=== PATIENT | female | born 1965 | race Caucasian/White ===

== ENCOUNTER 2021-01-15 02:07 | Emergency (ER) | payer OTHER ==
--- OUTSIDE RECORDS SUMMARY | 2021-01-15 02:09 | XMS REPORT | Continuity of Care Document ---
:1965 Author Organization [facility] t Address [address] [place] [address] Dr. Elena [address] [place] [address] Care Team Providers Name Role Phone Garland BYRNE Primary Care Physician Problems This patient has no known problems. Allergies, Adverse Reactions, Alerts Allergy Allergy Status Severity Reaction(s) Onset Inactive Treating Comm ents Source Name Type Date Date Clinician Vancomyc Propensi Active Citlalli olea in ty to 04-04 Methodi adverse 00:00: st reaction 00 s to drug Social History Social Habit Start Date Stop Date Quantity Comments Source Tobacco use and 2019-04-04 2019-04-04 Never used [facility] ethodist exposure 00:00:00 00:00:00 Alcohol intake 2019-04-04 2019-04-04 Ex-drinker [facility] thodist 00:00:00 00:00:00 (finding) Sex [birth year] [facility] ethodist 00:00:00 00:00:00 Smoking Status Start Date Stop Date Source Never smoker [facility] t Medications Ordered Filled Start Stop Current Ordering Indication Dosage Frequency Signature Comments Components Source Medication Medication Date Date Medication? Clinician (SIG) Name Name valsartan Yes 80mg QD Take 80 mg Ho lex (FRANCOIS) 80 6-16 by mouth Meth robert MG tablet 00:00: daily. st 00 Procedures This patient has no known procedures. Plan of Care Planned Activity Planned Date Details Comments Source Future Scheduled 2021-04-12 INFLUENZA VACCINE Citlalli olea Denominational Test 00:00:00 [code = INFLUENZA VACCINE] Future Scheduled 2014 BREAST CANCER [facility] thodist Test 00:00:00 SCREENING [code = BREAST CANCER SCREENING] Future Scheduled 2014 COLONOSCOPY SCREENING [place] [facility] Test 00:00:00 [code = COLONOSCOPY SCREENING] Future Scheduled 2014 SHINGLES VACCINES [place] [facility] Test 00:00:00 (#1) [code = SHINGLES VACCINES (#1)] Future Scheduled 1985 Screening for [facility] thodist Test 00:00:00 malignant neoplasm of cervix (procedure) [code = 760467319] Future Scheduled 1982 Hepatitis C screening [place] [facility] Test 00:00:00 (procedure) [code = 199889037] Future Scheduled 1980 COVID-19 VACCINE (1) [facility] Denominational Test 00:00:00 [code = COVID-19 VACCINE (1)] Results This patient has no known results.
[2021-01-15] MEDS ORDERED: METHYLPREDNISOLONE 125 MG INJ ONE (03:49)
[2021-01-15] MEDS ORDERED: KETOROLAC 30 MG/ML INJ ONE (03:50)
--- NOTE | 2021-01-15 04:41 | ER ---
Nurse's Notes [facility] Name: Christelle Paredes Age: 55 yrs Sex: Female : 1965 Arrival Date: 01/15/2021 Time: 02:10 Bed 3 Private MD: Diagnosis: Strain of muscle, fascia and tendon at neck level Presentation: 01/15 02:46 Chief complaint: Patient states: for past week has had problems with left side of neck iw and left shoulder, had a previous injury to left shoulder from last year, has been in excruciating pain over past week, does heavy lifting daily. Coronavirus screen: At this time, the client does not indicate any symptoms associated with coronavirus-19. Ebola Screen: Patient negative for fever greater than or equal to 101.5 degrees Fahrenheit, and additional compatible Ebola Virus Disease symptoms Patient denies exposure to infectious person. Patient denies travel to an Ebola-affected area in the 21 days before illness onset. No symptoms or risks identified at this time. Initial Sepsis Screen: Does the patient meet any 2 criteria? No. Patient's initial sepsis screen is negative. Does the patient have a suspected source of infection? No. Patient's initial sepsis screen is negative. Risk Assessment: Do you want to hurt yourself or someone else? Patient reports no desire to harm self or others. Onset of symptoms was January 09, 2021. 02:46 Method Of Arrival: Ambulatory iw 02:46 Acuity: FRANKLIN 3 iw Triage Assessment: 04:45 General: Appears uncomfortable, Behavior is calm, cooperative. Musculoskeletal: rv Swelling absent. Historical: - Allergies: 02:49 Vancomycin Analogues; iw - Home Meds: 02:49 Diovan Oral as needed [Active]; iw - PMHx: 02:49 Hypertension; Cirrhosis; Asthma; iw - PSHx: 02:49 None; iw - Immunization history:: Adult Immunizations up to date. - Social history:: Smoking status: . - Family history:: not pertinent. Screenin:18 Abuse screen: Denies threats or abuse. Abuse screen: Denies injuries from another. rr5 Nutritional screening: No deficits noted. Tuberculosis screening: No symptoms or risk factors identified. 04:45 Fall Risk None identified. rv Assessment: 04:44 Pain: Complains of pain in thoracic area. Neuro: Level of Consciousness is awake, rv alert, obeys commands, Oriented to person, place, time, situation. Vital Signs: 02:46 BP 151 / 86; Pulse 80; Resp 16; Temp 97.5; Pulse Ox 100% on R/A; Weight 117.93 kg; iw Height 5 ft. 10 in. (177.80 cm); Pain 8/10; 02:46 Body Mass Index 37.31 (117.93 kg, 177.80 cm) iw ED Course: 02:10 Patient arrived in ED. bp1 02:48 Triage completed. iw 02:49 Arm band placed on. iw 03:04 Jorge L Abraham, RN is Primary Nurse. rv 03:05 Oneal Tran MD is Attending Physician. ma2 03:19 Patient has correct armband on for positive identification. Bed in low position. Call rr5 light in reach. 04:26 C Spine Ap/Lat XRAY In Process Unspecified. EDMS 04:27 Shoulder Left (2 View) XRAY In Process Unspecified. EDMS 04:45 No provider procedures requiring assistance completed. Patient did not have IV access rv during this emergency room visit. Administered Medications: 03:35 Drug: MethylPREDNISolone Acetate 125 mg Route: IM; Site: left gluteus; rr5 04:46 Follow up: Response: No adverse reaction rv 03:36 Drug: TORadol (ketorolac) 60 mg Route: IM; Site: right gluteus; rr5 04:46 Follow up: Response: No adverse reaction rv Outcome: 04:41 Discharge ordered by . ma2 04:45 Discharged to home ambulatory. rv 04:45 Condition: improved 04:45 Discharge instructions given to patient, Instructed on discharge instructions, follow up and referral plans. medication usage, Demonstrated understanding of instructions, follow-up care, medications, Prescriptions given X 3. 05:05 Patient left the ED. rv Signatures: Dispatcher [employer] Emily Aldana RN RN Oneal Tran MD MD ma2 Jorge L Abraham, STEFANO RN rv Yvon Downey RN RN rr5 Nikia Santana bp1
--- NOTE | 2021-01-15 04:41 | EDPHYS ---
Physician Documentation [facility] Name: Christelle Paredes Age: 55 yrs Sex: Female : 1965 Arrival Date: 01/15/2021 Time: 02:10 Bed 3 Private MD: ED Physician Oneal Tran HPI: 01/15 03:36 This 55 yrs old Female presents to ER via Ambulatory with complaints of Back ma2 Pain, Numbness Of Arm. 03:36 The patient presents with pain that is acute. Onset: The symptoms/episode ma2 began/occurred gradually, 3 day(s) ago. Associated signs and symptoms: Pertinent negatives: fever, incontinence, nausea. Severity of symptoms: At their worst the symptoms were moderate, in the emergency department the symptoms are unchanged. The patient has experienced similar episodes in the past. Historical: - Allergies: 02:49 Vancomycin Analogues; iw - Home Meds: 02:49 Diovan Oral as needed [Active]; iw - PMHx: 02:49 Hypertension; Cirrhosis; Asthma; iw - PSHx: 02:49 None; iw - Immunization history:: Adult Immunizations up to date. - Social history:: Smoking status: . - Family history:: not pertinent. ROS: 03:36 Constitutional: Negative for fever, chills, and weight loss. ma2 03:36 All other systems are negative. Exam: 03:36 Constitutional: This is a well developed, well nourished patient who is awake, alert, ma2 and in no acute distress. Head/Face: Normocephalic, atraumatic. Eyes: Pupils equal round and reactive to light, extra-ocular motions intact. Lids and lashes normal. Conjunctiva and sclera are non-icteric and not injected. Cornea within normal limits. Periorbital areas with no swelling, redness, or edema. ENT: Nares patent. No nasal discharge, no septal abnormalities noted. Tympanic membranes are normal and external auditory canals are clear. Oropharynx with no redness, swelling, or masses, exudates, or evidence of obstruction, uvula midline. Mucous membranes moist. Neck: Trachea midline, no thyromegaly or masses palpated, and no cervical lymphadenopathy. Supple, full range of motion without nuchal rigidity, or vertebral point tenderness. No Meningismus. + has right sided neck muschle pain Chest/axilla: Normal chest wall appearance and motion. Nontender with no deformity. No lesions are appreciated. Cardiovascular: Regular rate and rhythm with a normal S1 and S2. No gallops, murmurs, or rubs. Normal PMI, no JVD. No pulse deficits. Respiratory: Lungs have equal breath sounds bilaterally, clear to auscultation and percussion. No rales, rhonchi or wheezes noted. No increased work of breathing, no retractions or nasal flaring. Abdomen/GI: Soft, non-tender, with normal bowel sounds. No distension or tympany. No guarding or rebound. No evidence of tenderness throughout. 03:36 MS/ Extremity: Pulses equal, no cyanosis. Neurovascular intact. Full, normal range ma2 of motion. Neuro: Awake and alert, GCS 15, oriented to person, place, time, and situation. Cranial nerves II-XII grossly intact. Motor strength 5/5 in all extremities. Sensory grossly intact. Cerebellar exam normal. Normal gait. Vital Signs: 02:46 BP 151 / 86; Pulse 80; Resp 16; Temp 97.5; Pulse Ox 100% on R/A; Weight 117.93 kg; iw Height 5 ft. 10 in. (177.80 cm); Pain 8/10; 02:46 Body Mass Index 37.31 (117.93 kg, 177.80 cm) iw MDM: 03:05 Patient medically screened. ma2 04:39 Differential diagnosis: arthritis, Fatigue Fracture Obesity Scoliosis. Data reviewed: ma2 vital signs, nurses notes. Counseling: I had a detailed discussion with the patient and/or guardian regarding: the historical points, exam findings, and any diagnostic results supporting the discharge/admit diagnosis, the presence of at least one elevated blood pressure reading (>120/80) during this emergency department visit, the need for outpatient follow up. Response to treatment: the patient's symptoms have markedly improved after treatment. 01/15 03:28 Order name: C Spine Ap/Lat XRAY ma2 01/15 03:28 Order name: Shoulder Left (2 View) XRAY ma2 Administered Medications: 03:35 Drug: MethylPREDNISolone Acetate 125 mg Route: IM; Site: left gluteus; rr5 04:46 Follow up: Response: No adverse reaction rv 03:36 Drug: TORadol (ketorolac) 60 mg Route: IM; Site: right gluteus; rr5 04:46 Follow up: Response: No adverse reaction rv Disposition: 01/15/21 04:41 Discharged to Home. Impression: Strain of muscle, fascia and tendon at neck level. - Condition is Stable. - Discharge Instructions: Cervical Sprain, [id number], Neck Exercises. - Prescriptions for Cyclobenzaprine 10 mg Oral Tablet - take 1 tablet by ORAL route every 8 hours As needed; 30 tablet. Diclofenac Sodium 75 mg Oral Tablet Sustained Release - take 1 tablet by ORAL route 2 times per day; 30 tablet. Medrol (Damien) 4 mg Oral Tablets, Dose Pack - take 1 tablet by ORAL route as directed - follow package instructions; 1 packet. - Medication Reconciliation Form, Thank You Letter, Antibiotic Education, Prescription Opioid Use form. - Follow up: Private Physician; When: Tomorrow; Reason: Continuance of care. Signatures: Dispatcher [employer] EDEmily Bailey RN RN Oneal Tran MD MD ma2 Jorge L Abraham RN RN Yvon Downey RN RN rr5 Corrections: (The following items were deleted from the chart) 05:05 04:41 01/15/2021 04:41 Discharged to Home. Impression: Strain of muscle, fascia and rv tendon at neck level. Condition is Stable. Prescriptions for Cyclobenzaprine 10 mg Oral Tablet - take 1 tablet by ORAL route every 8 hours As needed; 30 tablet, Diclofenac Sodium 75 mg Oral Tablet Sustained Release - take 1 tablet by ORAL route 2 times per day; 30 tablet, Medrol (Damien) 4 mg Oral Tablets, Dose Pack - take 1 tablet by ORAL route as directed - follow package instructions; 1 packet. and Forms are Medication Reconciliation Form, Thank You Letter, Antibiotic Education, Prescription Opioid Use. Follow up: Private Physician; When: Tomorrow; Reason: Continuance of care. ma2
[2021-01-15 05:13] VITALS: BP 151/86; TEMP 97.5; O2SAT 100
--- NOTE | 2021-01-15 09:08 | RAD REPORT ---
EXAM DESCRIPTION: RAD - C Spine Ap/Lat - 01/15/2021 4:26 am CLINICAL HISTORY: PAIN COMPARISON: No comparisons FINDINGS: Cervical bodies are normal in height and alignment.No fracture or acute bony process seen. Disc thinning with prominent posterior osteophyte noted at C3-4, C4-5 and C5-6. No prevertebral soft tissue thickening or other suspicious soft tissue finding. IMPRESSION: Moderate mid cervical degenerative change.
--- NOTE | 2021-01-15 09:10 | RAD REPORT ---
EXAM DESCRIPTION: RAD - Shoulder Left 2 View - 01/15/2021 4:27 am CLINICAL HISTORY: PAIN COMPARISON: C Spine Ap/Lat dated 01/15/2021 FINDINGS: Mild AC joint arthritic changes are present. No fracture or dislocation present. No aggres sive marrow pattern. Small sclerotic focus in the glenoid is presumably a bone island.
== END 2021-01-15 05:05 | disposition home or self-care (01) ==
LOC: ER 02:07
DX: S16.1XXA Strain of muscle, fascia and tendon at neck level, initial encounter (principal); I10 Essential (primary) hypertension; Z88.3 Allergy status to other anti-infective agents
CPT/HCPCS: 72040; 73030; 96372; 99283; J2930

== ENCOUNTER 2021-09-17 11:33 | Emergency (ER) | payer OTHER ==
--- OUTSIDE RECORDS SUMMARY | 2021-09-17 11:36 | XMS REPORT | Continuity of Care Document ---
:1965 Author Organization [facility] Address [address] [place] [address] Dr. Elena [address] [place] [id number] Care Team Providers Name Role Phone Unavailable Unavailable Unavailable Problems This patient has no known problems. Allergies, Adverse Reactions, Alerts This patient has no known allergies or adverse reactions. Medications This patient has no known medications. Procedures This patient has no known procedures. Results This patient has no known results.
--- NOTE | 2021-09-17 14:19 | RAD REPORT ---
EXAM DESCRIPTION: RAD - Chest Pa And Lat (2 Views) - 09/17/2021 1:56 pm CLINICAL HISTORY: COUGH COMPARISON: September 2015 TECHNIQUE: Frontal and lateral views of the chest were obtained. FINDINGS: The lungs are clear. Interstitial pattern matches comparison. Right pericardial fat pad n oted. Heart size is normal and central vasculature is within normal limits. No pleural effusion or p neumothorax seen. No acute bony finding noted. No aortic abnormality. IMPRESSION: No acute cardiopulmonary process. No significant change from comparison study.
--- NOTE | 2021-09-17 14:26 | EDPHYS ---
Physician Documentation [facility] Name: Christelle Paredes Age: 56 yrs Sex: Female : 1965 Arrival Date: 09/17/2021 Time: 11:35 Bed 9 Private MD: Nuris Haque ED Physician Oneal Tran HPI: 09/17 13:45 This 56 yrs old Female presents to ER via Ambulatory with complaints of Cough, jr8 Shortness Of Breath, Wheezing. 13:45 Onset: The symptoms/episode began/occurred gradually. Severity of symptoms: At their jr8 worst the symptoms were moderate, in the emergency department the symptoms are unchanged. Modifying factors: The symptoms are alleviated by nothing, the symptoms are aggravated by nothing. Associated signs and symptoms: The patient has no apparent associated signs or symptoms. The patient has not experienced similar symptoms in the past. The patient has not recently seen a physician. Patient presented with persistent cough that now is causing shortness of breath and wheezing. Has been tested twice for covid. Both negative. Denies fevers at this time . Historical: - Allergies: 13:08 Vancomycin Analogues; iw - Home Meds: 13:08 Diovan Oral as needed [Active]; iw - PMHx: 13:08 Asthma; Cirrhosis; Hypertension; iw - Immunization history:: Adult Immunizations Client reports receiving the 2nd dose of the Covid vaccine. - Social history:: Smoking status: Patient denies any tobacco usage or history of. ROS: 13:45 Eyes: Negative for injury, pain, redness, and discharge, ENT: Negative for injury, jr8 pain, and discharge, Neck: Negative for injury, pain, and swelling, Cardiovascular: Negative for chest pain, palpitations, and edema, Abdomen/GI: Negative for abdominal pain, nausea, vomiting, diarrhea, and constipation, Back: Negative for injury and pain, MS/Extremity: Negative for injury and deformity, Skin: Negative for injury, rash, and discoloration, Neuro: Negative for headache, weakness, numbness, tingling, and seizure. 13:45 Respiratory: Positive for cough, shortness of breath, wheezing. Exam: 13:45 Constitutional: This is a well developed, well nourished patient who is awake, alert, jr8 and in no acute distress. ENT: Nares patent. No nasal discharge, no septal abnormalities noted. Tympanic membranes are normal and external auditory canals are clear. Oropharynx with no redness, swelling, or masses, exudates, or evidence of obstruction, uvula midline. Mucous membranes moist. Neck: Trachea midline, no thyromegaly or masses palpated, and no cervical lymphadenopathy. Supple, full range of motion without nuchal rigidity, or vertebral point tenderness. No Meningismus. Cardiovascular: Regular rate and rhythm with a normal S1 and S2. No gallops, murmurs, or rubs. Normal PMI, no JVD. No pulse deficits. Respiratory: Lungs have equal breath sounds bilaterally, clear to auscultation and percussion. No rales, rhonchi or wheezes noted. No increased work of breathing, no retractions or nasal flaring. Abdomen/GI: Soft, non-tender, with normal bowel sounds. No distension or tympany. No guarding or rebound. No evidence of tenderness throughout. Skin: Warm, dry with normal turgor. Normal color with no rashes, no lesions, and no evidence of cellulitis. MS/ Extremity: Pulses equal, no cyanosis. Neurovascular intact. Full, normal range of motion. Neuro: Awake and alert, GCS 15, oriented to person, place, time, and situation. Cranial nerves II-XII grossly intact. Motor strength 5/5 in all extremities. Sensory grossly intact. Vital Signs: 13:06 BP 142 / 71; Pulse 89; Resp 18; Temp 98.3; Pulse Ox 100% on R/A; Weight 115.67 kg; iw Height 5 ft. 9 in. (175.26 cm); 13:06 Body Mass Index 37.66 (115.67 kg, 175.26 cm) iw MDM: 13:00 Patient medically screened. jr8 14:24 Data reviewed: vital signs, nurses notes, radiologic studies, plain films. Data jr8 interpreted: Pulse oximetry: on room air is 100 %. Interpretation: normal. Counseling: I had a detailed discussion with the patient and/or guardian regarding: the historical points, exam findings, and any diagnostic results supporting the discharge/admit diagnosis, radiology results, the need for outpatient follow up, a family practitioner, to return to the emergency department if symptoms worsen or persist or if there are any questions or concerns that arise at home. 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 I agree with assessment and care plan and confirm the diagnosis (es) above. Disposition Summary: 09/17/21 14:25 Discharge Ordered Location: Home jr8 Problem: new jr8 Symptoms: have improved jr8 Condition: Stable jr8 Diagnosis - Acute bronchitis, unspecified jr8 Followup: jr8 - With: Nuris Haque - When: 1 week - Reason: Recheck today's complaints, Continuance of care, Re-evaluation by your physician Discharge Instructions: - Discharge Summary Sheet jr8 - Acute Bronchitis, Adult jr8 - Chronic Bronchitis, Adult jr8 Forms: - Medication Reconciliation Form jr8 - Thank You Letter jr8 - Antibiotic Education jr8 - Prescription Opioid Use jr8 Prescriptions: - Zithromax Z-Damien 250 mg Oral Tablet - take 1 tablet by ORAL route as directed for 5 days Day 1 - take two (2) tablets jr8 one time. Day 2, 3, 4 , 5 take one (1) tablet once daily.; 6 tablet; Refills: 0, Product Selection Permitted - Medrol (Damien) 4 mg Oral Tablets, Dose Pack - take 1 tablet by ORAL route as directed - follow package instructions; 1 jr8 packet; Refills: 0, Product Selection Permitted Signatures: Dispatcher [employer] Emily Aldana RN RN iw Roszak, Josh, PA PA jr8 Oneal Tran MD MD ma2
--- NOTE | 2021-09-17 14:26 | ER ---
Nurse's Notes [facility] Name: Christelle Paredes Age: 56 yrs Sex: Female : 1965 Arrival Date: 09/17/2021 Time: 11:35 Bed 9 Private MD: Nuris Haque Diagnosis: Acute bronchitis, unspecified Presentation: 09/17 13:06 Chief complaint: Patient states: cough, wheezing, low grade fevers since , iw took 2 OTC COVID tests and they were negative. Coronavirus screen: Client presents with at least one sign or symptom that may indicate coronavirus-19. Ebola Screen: Patient negative for fever greater than or equal to 101.5 degrees Fahrenheit, and additional compatible Ebola Virus Disease symptoms Patient denies exposure to infectious person. Patient denies travel to an Ebola-affected area in the 21 days before illness onset. No symptoms or risks identified at this time. Initial Sepsis Screen: Does the patient meet any 2 criteria? No. Patient's initial sepsis screen is negative. Does the patient have a suspected source of infection? No. Patient's initial sepsis screen is negative. Risk Assessment: Do you want to hurt yourself or someone else? Patient reports no desire to harm self or others. Onset of symptoms was September 06, 2021. 13:06 Method Of Arrival: Ambulatory iw 13:06 Acuity: FRANKLIN 4 iw Historical: - Allergies: 13:08 Vancomycin Analogues; iw - Home Meds: 13:08 Diovan Oral as needed [Active]; iw - PMHx: 13:08 Asthma; Cirrhosis; Hypertension; iw - Immunization history:: Adult Immunizations Client reports receiving the 2nd dose of the Covid vaccine. - Social history:: Smoking status: Patient denies any tobacco usage or history of. Screenin:08 Abuse screen: Denies threats or abuse. Denies injuries from another. Nutritional iw screening: No deficits noted. Tuberculosis screening: No symptoms or risk factors identified. Fall Risk None identified. Assessment: 13:08 General: Appears in no apparent distress. Behavior is calm, cooperative. Pain: Denies iw pain. Neuro: Level of Consciousness is awake, alert, obeys commands, Oriented to person, place, time, situation. Cardiovascular: Rhythm is regular. Respiratory: Airway is patent Respiratory effort is even, unlabored, Derm: Skin is intact, is healthy with good turgor. Musculoskeletal: Range of motion: intact in all extremities. 14:24 Reassessment: Patient appears in no apparent distress at this time. Patient and/or iw family updated on plan of care and expected duration. Pain level reassessed. Patient is alert, oriented x 3, equal unlabored respirations, skin warm/dry/pink. Vital Signs: 13:06 BP 142 / 71; Pulse 89; Resp 18; Temp 98.3; Pulse Ox 100% on R/A; Weight 115.67 kg; iw Height 5 ft. 9 in. (175.26 cm); 13:06 Body Mass Index 37.66 (115.67 kg, 175.26 cm) iw ED Course: 11:35 Patient arrived in ED. mr 11:36 Nuris Haque is Private Physician. mr 13:00 Abhijit Arredondo PA is PHCP. jr8 13:00 Oneal Tran MD is Attending Physician. jr8 13:06 Marisabel Herndon RN is Primary Nurse. [place] 13:07 Triage completed. iw 13:08 Primary Nurse role handed off by Marisabel Herndon RN iw 13:08 Emily Conway, STEFANO is Primary Nurse. iw 13:08 Arm band placed on. iw 13:21 No provider procedures requiring assistance completed. Patient did not have IV access iw during this emergency room visit. 13:56 Chest Pa And Lat (2 Views) XRAY In Process Unspecified. EDMS 14:25 Nuris Haque is Referral Physician. jr8 Administered Medications: No medications were administered Outcome: 14:25 Discharge ordered by . jr8 14:52 Patient left the ED. iw Signatures: Dispatcher [employer] EDIN Shelia Terrazas mr Emily Conway RN RN Abhijit Arredondo PA PA jr8 Marisabel Herndon RN RN [place]ley
[2021-09-17 14:57] VITALS: BP 142/71; TEMP 98.3; O2SAT 100
== END 2021-09-17 14:52 | disposition home or self-care (01) ==
LOC: ER 11:33
DX: J20.9 Acute bronchitis, unspecified (principal); I10 Essential (primary) hypertension; Z88.3 Allergy status to other anti-infective agents
CPT/HCPCS: 71046; 99282

== ENCOUNTER 2022-11-24 19:47 | Emergency (ER) | payer BC, OTHER ==
--- OUTSIDE RECORDS SUMMARY | 2022-11-24 19:51 | XMS REPORT | Continuity of Care Document ---
:1965 Author Organization [facility] t Address [address] [place] [address] Care Team Providers Name Role Phone Nuris Alegre Primary Care Physician Problems This patient has no known problems. Allergies, Adverse Reactions, Alerts Allergy Allergy Status Severity Reaction(s) Onset Inactive Treating Comm ents Source Name Type Date Date Clinician Vancomyc Propensi Active Method i in ty to 04-04 st adverse 00:00: Hospita reaction 00 l s to drug Social History Social Habit Start Date Stop Date Quantity Comments Source Tobacco use and 2019-04-04 2019-04-04 Smokeless tobacco [facility] exposure 00:00:00 00:00:00 non-user Hospital Alcohol intake 2019-04-04 2019-04-04 Ex-drinker [facility] 00:00:00 00:00:00 (finding) Hospital Sex Assigned At [birth year] [facility] 00:00:00 00:00:00 Hospital Smoking Status Start Date Stop Date Source Never smoked tobacco [facility] Medications Ordered Filled Start Stop Current Ordering Indication Dosage Frequency Signature Comments Components Source Medication Medication Date Date Medication? Clinician (SIG) Name Name valsartan Yes 80mg QD Take 80 mg [facility] (DIOVAN) 80 6-[address] MG tablet 00:00: daily. Hospit a 00 l Procedures This patient has no known procedures. Plan of Care Planned Activity Planned Date Details Comments Source Future Scheduled 2022-09-05 BREAST CANCER [facility] Test 11:52:03 SCREENING [code = BREAST CANCER SCREENING] Future Scheduled 2022-09-05 COLONOSCOPY SCREENING [facility] Test 11:52:03 [code = COLONOSCOPY SCREENING] Future Scheduled 2022-09-05 SHINGLES VACCINES (1 Met [facility] Test 11:52:03 of 2) [code = SHINGLES VACCINES (1 of 2)] Future Scheduled 2022-09-05 INFLUENZA VACCINE Method [facility] Test 11:52:03 [code = INFLUENZA VACCINE] Future Scheduled 2022-09-05 COVID-19 VACCINE (#1) [facility] Test 11:52:03 [code = COVID-19 VACCINE (#1)] Future Scheduled 2022-09-05 Screening for [facility] Test 11:52:03 malignant neoplasm of cervix (procedure) [code = [id number]] Results This patient has no known results.
[2022-11-24 21:32] LABS: Urine Blood 3+ (Negative); Urine Glucose Trace (Negative); Urine Protein 3+ (Negative); Urine pH 5.5 (5.0-7.0)
[2022-11-24 22:04] LABS: Absolute Lymphocytes (CBC) 0.5 K/uL (0.7-4.9); Hematocrit 39.3 % (36.0-45.0); MCV 101.7 fL (80-100); MPV 9.2 fL (7.6-11.3); RBC Red Blood Cell Count 3.86 M/uL (3.86-4.86)
[2022-11-24 22:23] LABS: Albumin 2.6 g/dL (3.4-5.0); Bilirubin Total 3.2 mg/dL (0.2-1.0); Potassium 3.7 mmol/L (3.5-5.1); Protein, Total 7.6 g/dL (6.4-8.2)
[2022-11-24 22:24] LABS: Transitional Epithelial <5 /HPF (None Seen); Urine Bacteria <20 /HPF (<20); Urine Mucus 2+ /HPF (None Seen); Urine RBC >50 /HPF (None Seen)
[2022-11-24] MEDS ORDERED: KETOROLAC 30 MG/ML INJ ONE (22:49)
[2022-11-24] MEDS ORDERED: NA CHLORIDE 0.9% 1,000 ML ONE (22:50)
[2022-11-24 23:07] LABS: Protime INR 1.8
[2022-11-25] MEDS ORDERED: NA CHLORIDE 0.9% 50 ML ONE (01:25)
[2022-11-25] MEDS ORDERED: CEFTRIAXONE 2000 MG/VIAL ONE (01:25)
[2022-11-25] MEDS ORDERED: METRONIDAZOLE 500mg IVPB 500 MG/100 ML BAG IV ONE (01:25)
--- NOTE | 2022-11-25 01:38 | ER ---
Nurse's Notes [facility] Name: Christelle Paredes Age: 57 yrs Sex: Female : 1965 Arrival Date: 11/24/2022 Time: 19:52 Bed 13 Private MD: Diagnosis: Cholecystitis, unspecified;Abnormal results of liver function studies;Indeterminate colitis Presentation: 11/24 20:27 Chief complaint: Patient states: "Since Tuesday I started having tremors, upper back mb9 pain, and can't eat or drink anything. I'm also peeing blood but my urine has always had a weird smell and is always like that". Coronavirus screen: Vaccine status: Patient reports receiving the 2nd dose of the covid vaccine. Ebola Screen: No symptoms or risks identified at this time. Initial Sepsis Screen: Does the patient meet any 2 criteria? No. Patient's initial sepsis screen is negative. Does the patient have a suspected source of infection? No. Patient's initial sepsis screen is negative. Risk Assessment: Do you want to hurt yourself or someone else? Patient reports no desire to harm self or others. Onset of symptoms. 20:27 Method Of Arrival: Wheelchair mb9 20:27 Acuity: FRANKLIN 4 mb9 Triage Assessment: 22:02 General: Appears in no apparent distress. uncomfortable, Behavior is cooperative. Pain: vc1 Complains of pain in back Pain does not radiate. EENT: No deficits noted. Neuro: No deficits noted. Musculoskeletal: Circulation, motion, and sensation intact. Range of motion: intact in all extremities. Historical: - Allergies: 20:29 Vancomycin Analogues; mb9 - PMHx: 20:29 Asthma; Cirrhosis; Hypertension; mb9 - PSHx: 20:29 None; mb9 - Immunization history:: Adult Immunizations up to date. - Social history:: Smoking status: Patient denies any tobacco usage or history of. Screenin:01 [facility] ED Fall Risk Assessment (Adult) History of falling in the last 3 months, vc1 including since admission No falls in past 3 months (0 pts) Confusion or Disorientation No (0 pts) Intoxicated or Sedated No (0 pts) Impaired Gait No (0 pts) Mobility Assist Device Used No (0 pt) Altered Elimination No (0 pt) Score/Fall Risk Level 0 - 2 = Low Risk Oriented to surroundings, Maintained a safe environment, Educated pt \\T\\ family on fall prevention, incl call for assistance when getting out of bed. Abuse screen: Denies threats or abuse. Nutritional screening: No deficits noted. Tuberculosis screening: No symptoms or risk factors identified. Assessment: 22:04 Reassessment: No changes from previously documented assessment. Patient and/or family vc1 updated on plan of care and expected duration. Pain level reassessed. Neuro: Level of Consciousness is awake, Oriented to person, place, time, situation, Appropriate for age. 23:07 Reassessment: Patient and/or family updated on plan of care and expected duration. Pain vc1 level reassessed. Patient is alert, oriented x 3, equal unlabored respirations, skin warm/dry/pink. 11/25 01:26 Reassessment: No changes from previously documented assessment. Patient and/or family vc1 updated on plan of care and expected duration. Pain level reassessed. Patient is alert, oriented x 3, equal unlabored respirations, skin warm/dry/pink. Vital Signs: 11/24 20:27 BP 146 / 68; Pulse 96; Resp 18; Temp 97.9; Pulse Ox 98% ; Weight 95.25 kg; Height 5 ft. mb9 10 in. ; Pain 10/10; 21:45 BP 147 / 41; Pulse 90; Resp 18; Pulse Ox 95% on R/A; vc1 23:06 BP 145 / 68; Pulse 94; Resp 18; Pulse Ox 97% on R/A; vc1 11/25 00:00 BP 132 / 51; Pulse 88; Temp 98.4(O); Pulse Ox 97% on R/A; vc1 01:00 BP 128 / 55; Pulse 85; Pulse Ox 97% on R/A; vc1 11/24 20:27 Body Mass Index 30.13 (95.25 kg, 177.8 cm) mb9 11/24 20:27 Pain Scale: Adult mb9 ED Course: 11/24 19:52 Patient arrived in ED. ja2 20:29 Triage completed. mb9 20:31 Arm band placed on. mb9 20:33 Davonte Bond PA is PHCP. cp 20:33 Benedicto Ortega MD is Attending Physician. cp 21:33 Brenda Richards, RN is Primary Nurse. vc1 21:38 Inserted saline lock: 22 gauge in left antecubital area, using aseptic technique. Blood ah1 collected. 21:38 PT-INR Sent. ah1 21:38 CBC with Diff Sent. ah1 21:38 CMP Sent. ah1 21:38 Lipase Sent. ah1 21:38 Urine Microscopic Only Sent. ah1 22:02 Patient has correct armband on for positive identification. Bed in low position. Pulse vc1 ox on. NIBP on. 23:08 CT Abd/Pelvis - IV Contrast Only In Process Unspecified. EDMS 11/25 00:40 US Abdomen Limited: gallbladder In Process Unspecified. EDMS Administered Medications: 11/24 23:06 Drug: Ketorolac IVP 15 mg Route: IVP; Site: left antecubital; vc1 23:06 Drug: NS 0.9% IV 500 ml Route: IV; Rate: bolus; Site: left forearm; vc1 23:44 Drug: NS 0.9% IV 500 ml Route: IV; Rate: 125 ml/hr; Site: left forearm; vc1 11/25 01:33 Drug: Rocephin IV 2 grams Route: IV; Rate: calculated rate; Site: left antecubital; bb 01:33 Drug: metroNIDAZOLE IVPB 500 mg Volume: 100 ml; Route: IVPB; Infused Over: 30 mins; bb Site: left antecubital; Medication: 11/24 20:32 VIS not applicable for this client. mb9 Outcome: 11/25 01:37 ER care complete, transfer ordered by . cp Signatures: Dispatcher [employer] EDMS Samina Louie RN RN bb Davonte Bond PA PA cp Alexander, Jessica ja2 Calcote, Vanessa RN RN vc1 Shelia Pierre RN RN mb9 Jed Doug[facility]
--- NOTE | 2022-11-25 01:38 | EDPHYS ---
Physician Documentation [facility] Name: Christelle Paredes Age: 57 yrs Sex: Female : 1965 Arrival Date: 11/24/2022 Time: 19:52 Bed 13 Private MD: ED Physician Benedicto Ortega HPI: 11/24 20:50 This 57 yrs old Female presents to ER via Wheelchair with complaints of Fever, Back cp Pain, Urinary Problem. Historical: - Allergies: 20:29 Vancomycin Analogues; mb9 - PMHx: 20:29 Asthma; Cirrhosis; Hypertension; mb9 - PSHx: 20:29 None; mb9 - Immunization history:: Adult Immunizations up to date. - Social history:: Smoking status: Patient denies any tobacco usage or history of. ROS: 20:55 Constitutional: Positive for chills, Negative for fever. cp Vital Signs: 20:27 BP 146 / 68; Pulse 96; Resp 18; Temp 97.9; Pulse Ox 98% ; Weight 95.25 kg; Height 5 ft. mb9 10 in. ; Pain 10/10; 21:45 BP 147 / 41; Pulse 90; Resp 18; Pulse Ox 95% on R/A; vc1 23:06 BP 145 / 68; Pulse 94; Resp 18; Pulse Ox 97% on R/A; vc1 11/25 00:00 BP 132 / 51; Pulse 88; Temp 98.4(O); Pulse Ox 97% on R/A; vc1 01:00 BP 128 / 55; Pulse 85; Pulse Ox 97% on R/A; vc1 11/24 20:27 Body Mass Index 30.13 (95.25 kg, 177.8 cm) mb9 11/24 20:27 Pain Scale: Adult mb9 MDM: 11/24 20:36 Patient medically screened. cp 11/24 20:40 Order name: Lipase; Complete Time: 22:36 cp 11/24 20:40 Order name: IV Saline Lock; Complete Time: 21:35 cp 11/24 20:40 Order name: Labs collected and sent; Complete Time: 21:35 cp 11/24 20:40 Order name: Urine Dipstick-Ancillary (obtain specimen); Complete Time: 21:34 cp 11/24 21:38 Order name: NPO; Complete Time: 21:41 cp 11/24 21:38 Order name: CT Abd/Pelvis - IV Contrast Only cp 11/24 22:10 Order name: Urine --Ancillary (enter results); Complete Time: 22:36 rv1 11/24 22:30 Order name: Urine Culture EDMS 11/24 20:40 Order name: PT-INR; Complete Time: 23:43 cp 11/24 20:40 Order name: CBC with Diff; Complete Time: 22:36 cp 11/24 23:44 Interpretation: Normal except: MCV 101.7; PLT 51; RDW 15.4; DANAE% 87.0; LYM% 6.0; LYMA cp 0.5. 11/24 20:40 Order name: CMP; Complete Time: 22:36 cp 11/24 23:58 Interpretation: Normal except: NA 134; GFR 65; AST 66; BILIT 3.2; CA 8.1; ALB 2.6; GLOB cp 5.0; A/G 0.5. 11/24 20:40 Order name: Urine Microscopic Only; Complete Time: 22:36 cp 11/24 23:59 Interpretation: Normal except: UWBC 20-50; URBC >50; BYST Many. cp 11/24 21:32 Order name: Urine Dipstick-Ancillary; Complete Time: 21:33 EDMS 11/24 23:59 Interpretation: Normal except: UKET Trace; UBLD 3+; UPROT 3+; UNIT Positive. cp 11/25 00:17 Order name: EKG; Complete Time: 00:18 cp 11/25 00:17 Order name: Blood Culture Adult (2) cp 11/25 00:17 Order name: Lactate w/ 2H reflex if indic. cp 11/25 00:17 Order name: Procalcitonin cp 11/25 00:17 Order name: US Abdomen Limited: gallbladder cp 11/25 00:17 Order name: Accucheck; Complete Time: 01:19 cp 11/25 00:17 Order name: Cardiac monitoring; Complete Time: 01:19 cp 11/25 00:17 Order name: EKG - Nurse/Tech; Complete Time: 01:19 cp 11/25 00:17 Order name: IV Saline Lock - Large Bore; Complete Time: 01:19 cp 11/25 00:17 Order name: O2 Per Protocol; Complete Time: 01:19 cp 11/25 00:17 Order name: O2 Sat Monitoring; Complete Time: 01:19 cp 11/25 00:17 Order name: Vital Signs; Complete Time: 01: cp 11/25 00:17 Order name: Ptt, Activated cp 11/25 01:29 Order name: SARS RAPID rv1 Administered Medications: 23:06 Drug: Ketorolac IVP 15 mg Route: IVP; Site: left antecubital; vc1 23:06 Drug: NS 0.9% IV 500 ml Route: IV; Rate: bolus; Site: left forearm; vc1 23:44 Drug: NS 0.9% IV 500 ml Route: IV; Rate: 125 ml/hr; Site: left forearm; vc1 11/25 01:33 Drug: Rocephin IV 2 grams Route: IV; Rate: calculated rate; Site: left antecubital; bb 01:33 Drug: metroNIDAZOLE IVPB 500 mg Volume: 100 ml; Route: IVPB; Infused Over: 30 mins; bb Site: left antecubital; Disposition Summary: 11/25/22 01:37 Transfer Ordered Accepting Physician: Doctor cp Transfer Location: [facility] cp Reason: Higher level of care cp Condition: Stable cp Problem: new cp Symptoms: have improved cp Diagnosis - Cholecystitis, unspecified cp - Abnormal results of liver function studies cp - Indeterminate colitis cp Discharge Instructions: - Discharge Summary Sheet vc1 Forms: - SBAR form vc1 - Medication Reconciliation Form cp Signatures: Dispatcher [employer] Samina Ovalle RN RN bb Page, Corey, PA PA cp Calcote, Vanessa, RN RN vc1 Shelia Pierre RN RN mb9
[2022-11-25 02:19] LABS: SARS-CoV-2 Antigen Rapid Res Negative (Negative)
--- NOTE | 2022-11-25 12:00 | RAD REPORT ---
EXAM DESCRIPTION: US - Abdomen Exam Limited - 11/25/2022 12:38 am CLINICAL HISTORY: Lower abd pain. COMPARISON: None. TECHNIQUE: Serial axial CT images were obtained from above the diaphragm through the pubic symphysis without administration of intravenous or oral contrast. All CT scans are performed using dose optimization techniques as appropriate, including automated exp osure control and/or standardized protocols, where dose is adjusted for indication for exam and body habitus. FINDINGS: Thoracic: No significant abnormality. Hepatobiliary: No obvious concerning hepatic lesion identified in the absence of intravenous contrast . The gallbladder is unremarkable. No biliary ductal dilatation. Pancreas: Unremarkable. Spleen: Unremarkable. Gastrointestinal: Nonspecific mild fluid-filled small bowel loops with no evidence specific for obstr uction. No perienteric inflammation. The appendix is nonvisualized, but there are no pericecal inflam matory changes identified. Small to moderate amount of fecal material throughout the colon. Adrenals: No abnormality identified in either adrenal gland. Renal: No obvious parenchymal abnormality in either kidney in the absence of intravenous contrast. No hydronephrosis or urolithiasis. Bladder/Reproductive: Unremarkable appearance of the urinary bladder by CT technique. Vascular/Lymphatics: No lymphadenopathy identified by CT size criteria. Abdominal aorta is normal in caliber. Musculoskeletal: No concerning osseous lesion identified. Fluid / peritoneum: No significant free fluid. No free intraperitoneal air identified. IMPRESSION: 1. Nonspecific mild fluid-filled small bowel loops. Differential includes ileus/enteri tis, versus early small bowel obstruction in the appropriate clinical setting. 2. No additional potential acute abnormality identified. Electronically signed by: Shanthi Melvin MD 11/25/2022 12:24 AM CDT Due to temporary technical issues with the PACS/Fluency reporting system, reports are being signed by the in house radiologists without review as a courtesy to insure prompt reporting. The interpreting radiologist is fully responsible for the content of the report.
--- NOTE | 2022-11-25 12:14 | RAD REPORT ---
EXAM DESCRIPTION: CT - Abdomen Pelvis W Contrast - 11/25/2022 6:25 am CLINICAL HISTORY: Back pain. Hematuria. TECHNIQUE: CT scan of the abdomen and pelvis was performed with intravenous contrast. 5 mm axial mones ges were obtained along with coronal and sagittal reformatted images. COMPARISON: None. DOSE OPTIMIZATION: This facility uses dose optimization techniques as appropriate to perform exams, including at least one of the following techniques: 1. Automated exposure control. 2. Adjustment of the mA and/or kV according to patient size (this includes techniques or standardized protocols for targeted exams where dose is matched to the indication/reason for exam, i.e. extremiti es or head). 3. Use of iterative reconstructive technique. FINDINGS: Lung Bases: There are no active infiltrates. There is a moderate-sized left pleural effusion. Liver: There is mild microlobulation of the hepatic capsule consistent with hepatic cirrhosis. There is evidence of portal venous hypertension with recanalization of the umbilical vein, moderately severe paraesophageal varices, and moderately severe splenic venous varices with splenomegaly. Spleen: There is severe splenomegaly. The spleen measures 18 x 11 x 17 cm in maximal dimensions. Pancreas: Normal. Gallbladder: There is evidence of cholelithiasis. The gallbladder is mildly distended and demonstrate s mural thickening. The mural thickening could be secondary to cholecystitis or could be secondary to peritoneal ascites. Adrenal Glands: Normal. Kidneys: Normal. Retroperitoneal Structures: There are shoddy retroperitoneal lymph nodes. Bowel Survey: There is a small hiatal hernia. The stomach is otherwise unremarkable. There are multiple mildly distended small bowel loops with air-fluid levels. The appendix is unremarkable. There is severe mural thickening of the ascending and transverse colon suspicious for colitis. Uterus and Adnexa: Normal. Urinary Bladder: Normal. Peritoneal Cavity: There is a small amount of peritoneal ascites. Mesenteric Structures: Normal. Abdominal Wall: No hernia. Bony Structures: No suspicious lesions. There is moderately severe spondylosis throughout the lower t horacic and lumbar spine. There is severe degenerative disc disease at L3-L4. There is severe facet arthropathy on the right at L4-L5. There is mild posterior disc herniation with osteophyte complex at L5-S1 along with severe bilateral facet arthropathy. IMPRESSION: 1. Findings suspicious for colitis involving the ascending and transverse colon. 2. Hepatic cirrhosis with evidence of portal venous hypertension including splenomegaly, paraesophage al varices, splenic venous varices, recanalization of the hepatic vein, and peritoneal ascites. 3. Mild distention of the gallbladder with numerous small calcified stones and wall thickening. The w all thickening may be due to cholecystitis or secondary to the peritoneal ascites. Clinical correlati on recommended. 4. There are shotty retroperitoneal lymph nodes. 5. Moderate-sized left pleural effusion. Electronically signed by: Chance Lugo MD 11/24/2022 11:33 PM CDT Due to temporary technical issues with the PACS/Fluency reporting system, reports are being signed by the in house radiologists without review as a courtesy to insure prompt reporting. The interpreting radiologist is fully responsible for the content of the report.
[2022-11-25 12:33] VITALS: BP 123/57; TEMP 99; O2SAT 94
--- NOTE | 2022-11-25 12:35 | EKG ---
Test Date: 2022-11-25 Test Time: 01:02:23 Barrel Lathe Operator Outside: NOE MEASUREMENT RESULTS: Intervals: Rate: 84 FL: 164 QRSD: 78 QT: 390 QTc: 460 Britt: P: -23 FL: 164 QRS: 34 T: 15 INTERPRETIVE STATEMENTS: Normal sinus rhythm Normal ECG Compared to ECG 09/30/2015 17:50:46 No significant changes Electronically Signed On 11-25-22 12:34:52 CDT by Otto Grullon
--- NOTE | 2022-11-26 11:45 | EKG ---
Test Date: 2022-11-25 Test Time: 01:05:43 Bleach Analyst: NOE MEASUREMENT RESULTS: Intervals: Rate: 84 MO: 150 QRSD: 84 QT: 392 QTc: 463 [place]: P: 0 MO: 150 QRS: 39 T: 16 INTERPRETIVE STATEMENTS: Normal sinus rhythm Normal ECG Compared to ECG 11/25/2022 01:02:23 No significant changes Electronically Signed On 11-26-22 11:44:33 CDT by Otto Grullon
== END 2022-11-25 03:34 | disposition short-term general hospital (02) ==
LOC: ER 19:47
DX: K81.9 Cholecystitis, unspecified (principal); K52.3 Indeterminate colitis; R94.5 Abnormal results of liver function studies; I10 Essential (primary) hypertension; Z20.822 Contact with and (suspected) exposure to COVID-19; Z88.3 Allergy status to other anti-infective agents
CPT/HCPCS: 93005 ×2; 87040 ×2; 87088; 85025; 87086; 36415; 81025; 85610; 83605; 85730; 87077; 87186; 83690; 80053; 84145; 74177; 76705; 96375; 96374; 99285; 87811; Q9967; J0696; J7040; 81003; 81015

== ENCOUNTER 2023-02-15 13:52 | Emergency (ER) | payer BC ==
--- OUTSIDE RECORDS SUMMARY | 2023-02-15 14:36 | XMS REPORT | Continuity of Care Document ---
:1965 Author Organization [facility] t Address [address] [place] [address] [place] [id number] Care Team Providers Name Role Phone Nuris Alegre Primary Care Physician MARYANN TURNER Attending Clinician Unavailable CALLIE MISHRA Attending Clinician Unavailable JOSELUIS STONER Attending Clinician Unavailable JOSELUIS STONER Attending Clinician Unavailable SAURABH NICOLE Attending Clinician Unavailable ARCENIO LAZO Attending Clinician Unavailable SAMANTHA ALFREDO Attending Clinician Unavailable NENA MANE Attending Clinician Unavailable HEATHER MARIANO Attending Clinician Unavailable Tad COVINGTON, Callie MULLINS Attending Clinician Unavailable Saurabh Nicole MD Attending Clinician PAUL SUTTON Attending Clinician Unavailable MARGIE ALLRED Attending Clinician Unavailable Mel VAUGHN, Du Attending Clinician Terri Concepcion Attending Clinician Ruthie Diaz MD Attending Clinician RUTHIE DIAZ Attending Clinician Unavailable Paul Sutton MD Attending Clinician [phone] Patricia VAUGHN MPH, Amie Lehman Attending Clinician [phone] AMIE OGMEZ Attending Clinician Unavailable Enmanuel VAUGHN, Megha Dumas Attending Clinician Castillo VAUGHN, Rylie Diaz Attending Clinician Graham VAUGHN, Dipak Long Attending Clinician Ana Luisa VAUGHN, Heather Thurman Attending Clinician [phone] Judi Vigil Attending Clinician Colt VAUGHN, Eun Burgos Attending Clinician Monica Ruiz CRNA Attending Clinician [phone] Jeannette, Arcenio Douglas Attending Clinician ANA LUISA, HEATHER THURMAN Admitting Clinician Unavailable MARISABEL HO Admitting Clinician Unavailable PAUL SUTTON Admitting Clinician Unavailable MANDI, JUDI DOBSON Admitting Clinician Unavailable Payers Payer Name Policy Type Policy Number Effective Date Expiration Date S ource PPO/EPO - BCBS [id number] 2022 00:00:00 CVCP-BCBS [id number] BCBS PPO POS EPO [id number] 2022 00:00:00 CHOICE Problems Condition Condition Condition Status Onset Resolution Last Treating Co mments Source Name Details Category Date Date Treatment Clinician Date Pleural Pleural Disease Active [facility] left on left 00:00: Medical 00 [place] Other Other Disease Active [facility] ascites ascites 4-19 [facility] 00:00: Medical 00 [place] Liver Liver Disease Active [facility] cirrhosis cirrhosis 4-07 Lm ege secondary secondary 00:00: of to BISHOP to BISHOP 00 Medicin e 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 00:00: of without without 00 Medicin bleeding bleeding e Mild Mild Disease Active [facility] intermitte intermitte 4-07 Co llege nt asthma nt asthma 00:00: of without without 00 Medicin complicati complicati e on on Portal Portal Disease Active [facility] hypertensi hypertensi 4-07 Co llege on on 00:00: of Medicin e Thrombocyt Thrombocyt Disease Active [facility] openia 07 [facility] 00:00: Medicin e Symptomati Symptomati Disease Active [facility] c [facility]17 [facility] cholelithi cholelithi 00:00: Me dical asis asis 00 [facility] [place] Disease Active [facility] lithiasis lithiasis 3-16 [facility] 00:00: Medical 00 Center Allergies, Adverse Reactions, Alerts Allergy Allergy Status Severity Reaction(s) Onset Inactive Treating Comm ents Source Name Type Date Date Clinician VANCOMYC Allergy Active Other [facility] IN 3[facility]16 [facility] 00:[facility]: Medical 00 Center Vancomyc Propensi Active Other (See Headache, [facility] in ty to Comments) 3-16 "body [facility] adverse 00:00: clamping" Medica l reaction 00 Center s Vancomyc Propensi Active Method i in ty to 7-24 [facility] adverse 00:00: Hospita reaction 00 l s to drug NO KNOWN Allergy Active [facility] Family History Family Member Diagnosis Comments Start Date Stop Date Source Natural father Hypertension [facility] Natural father Kidney cancer [facility] Natural mother Arrhythmia [facility] Natural mother Asthma [facility] Natural mother Cirrhosis [facility] Natural mother Diabetes [facility] Social History Social Habit Start Date Stop Date Quantity Comments Source History SDOH [facility] Alcohol Std Drinks Medica l Center History [facility] Alcohol Binge Medical Malini [facility] Gender identity [facility] Sexual orientation [facility] Hospital Exposure to 2022-12-19 2022-12-[address] [facility] SARS-CoV-2 (event) 00:00:00 15:15:00 Medica l Center History [facility] 2022-12-29 2022-12-[address] [facility] Housing Unable to 00:00:00 00:00:00 Medical Center Pay History [facility] 2022-12-29 2022-12-[address] [facility] Housing Places 00:00:00 00:00:00 Medical Ce nter Lived History [facility] 2022-12-29 2022-12-[address] [facility] Housing Homeless 00:00:00 00:00:00 Medical Center Last Year Tobacco use and 2022-12-17 2022-12-17 Smokeless [facility] Co llege exposure 00:00:00 00:00:00 tobacco non-user of Medic ine History SDOH 2022-11-25 2022-11-25 1 TOMASA Olsen Alcohol Frequency 00:00:00 00:00:00 Medical Center History of Social 2019-05-03 2019-05-[address] function 00:00:00 00:00:00 Hospital Alcohol intake 2019-04-04 2019-04-04 Ex-drinker [facility] 00:[facility] (finding) Hospital Sex Assigned At [birth year] [facility] 00:[facility] Smoking Status Start Date Stop Date Source Never smoked tobacco [facility] L[facility]ge of Medicine Medications Ordered Filled Start Stop Current Ordering Indication Dosage Frequency Signature Comments Components Source Medication Medication Date Date Medication? Clinician (SIG) Name Name ondansetron Yes 4mg Take 1 [facility] (ZOFRAN) 4 5-19 Tablet by Lm ege MG tablet 15:04: mouth. of Medicin e Menthol 10 Yes Take by [facility] MG LOZG 5-19 mouth. [place] 15:04: of 04 Medicin e spironolact 2022-0 Yes 100mg Take 1 [place] [facility] one 5-19 Tablet by [place] (ALDACTONE) 15:04: mouth of 100 MG 04 daily. Medicin tablet e spironolact Yes 100mg Take 1 [place] cl[facility] one 5-19 Tablet by [place] (ALDACTONE) 11:21: mouth of 100 MG 50 daily. Medicin tablet e Torsemide 2022- No 40mg Take 40 mg [facility] 40 MG TABS 5-19 05-19 by mouth Lm ege 11:20: 00:00 two times of 25 :00 daily. Medicin e ondansetron 2022- Yes 4mg Take 1 [facility] (ZOFRAN) 4 5-19 Tablet by Lm ege MG tablet 11:20: mouth. of 22 Medicin e Menthol 10 2022-0 Yes Take by [facility] MG LOZG 5-19 mouth. College 11:20: of 22 Medicin e lidocaine 3-0 Yes [id number] 1{patch Place 1 [facility] (LIDODERM) 5-19 } Patch onto Col [facility]ge 5 % patch 00:00: the skin of 00 every 12 Medicin hours. e cyclobenzap 2023-0 Yes [id number] 5mg Take 1 [facility] rine 5-19 Tablet by [place] (FLEXERIL) 00:00: mouth of 5 MG tablet 00 nightly as Me dicin needed. e Dextrometho 2023-0 Yes [id number] 20mL Take 20 mL [facility] rphan-guaiF 5-19 by mouth Lm ege ENesin 00:00: every 6 of (MUCINEX 00 hours as Medicin FAST-MAX DM needed for e MAX) 5-100 Other MG/5ML LIQD (cough). lidocaine 2023-0 Yes [id number] 1{patch Place 1 [facility] (LIDODERM) 5-19 } Patch onto Col [facility]ge 5 % patch 00:00: the skin of 00 every 12 Medicin hours. e cyclobenzap 2023-0 Yes [id number] 5mg Take 1 [facility] rine 5-19 Tablet by [place] (FLEXERIL) 00:00: mouth of 5 MG tablet 00 nightly as Me dicin needed. e Dextrometho 2023-0 Yes [id number] 20mL Take 20 mL [facility] rphan-guaiF 5-19 by mouth Lm ege ENesin 00:00: every 6 of (MUCINEX 00 hours as Medicin FAST-MAX DM needed for e MAX) 5-100 Other MG/5ML LIQD (cough). Torsemide 2023-0 Yes 40mg Take 40 mg [facility] 40 MG TABS 4-28 by mouth Colle ge 16:09: two times of 13 daily. Medicin e Torsemide 2023-0 Yes 40mg Take 40 mg [facility] 40 MG TABS 4-28 by mouth Colle ge 16:09: two times of 13 daily. Medicin e ondansetron 2023-0 Yes 4mg Take 1 [facility] (ZOFRAN) 4 4-28 Tablet by Lm ege MG tablet 16:08: mouth. of 22 Medicin e ondansetron 2023-0 Yes 4mg Take 1 [facility] (ZOFRAN) 4 4-28 Tablet by Lm ege MG tablet 16:08: mouth. of 22 Medicin e Budesonide- 3-0 Yes [id number] 1{inhal Inhale 1 [facility] Formoterol 4-28 er} Inhaler by Col lege Fumarate 00:00: mouth two of (SYMBICORT) 00 times Medicin 160-4.5 daily. e MCG/ACT AERO Budesonide- 3-0 Yes [id number] 1{inhal Inhale 1 [facility] Formoterol 4-28 er} Inhaler by Col [facility]ge Fumarate 00:00: mouth two of (SYMBICORT) 00 times Medicin 160-4.5 daily. e MCG/ACT AERO Budesonide- 3-0 Yes [id number] 1{inhal Inhale 1 [facility] Formoterol 4-28 er} Inhaler by Col lege Fumarate 00:00: mouth two of (SYMBICORT) 00 times Medicin 160-4.5 daily. e MCG/ACT AERO Budesonide- 3-0 Yes [id number] 1{inhal Inhale 1 [facility] Formoterol 4-28 er} Inhaler by Col lege Fumarate 00:00: mouth two of (SYMBICORT) 00 times Medicin 160-4.5 daily. e MCG/ACT AERO Torsemide 2022-0 Yes Take by [facility] 40 MG TABS 4-27 mouth. [place] 13:26: of 03 Medicin e ondansetron 2022-0 Yes 4mg Take 1 [facility] (ZOFRAN) 4 4-27 Tablet by Lm ege MG tablet 13:24: mouth. of 53 Medicin e spironolact 2022-0 Yes 25mg QD Take [address] [facility] one 4-26 tablet (25 [facility] (ALDACTONE) 18:19: mg total) M edical 25 MG 05 by mouth Center tablet in the morning. omeprazole 3-0 Yes 20mg QD Take [facility] (PriLOSEC) 4-26 capsule [facility] 20 MG 18:19: (20 mg Medical capsule 05 total) by Center mouth in the morning. traMADoL 3-0 Yes 50mg Take [address] [facility] (ULTRAM) 50 4-26 tablet (50 [facility] k[facility] mg tablet 18:19: mg total) Med ical 05 by mouth Center every 6 (six) hours as needed for Pain. Max Daily Amount: 200 mg ondansetron 2022-0 Yes 4mg Take [address] [facility] (ZOFRAN) 4 4-26 tablet (4 [facility] MG tablet 18:19: mg total) Med ical 05 by mouth 3 Center (three) times daily as needed for Nausea. Torsemide 2022-2022- Yes 40mg Take 40 mg [facility] 40 MG TABS 01-05-27 by mouth Lm ege 00:00: 04:59 two times of 00 :00 daily. Medicin e Torsemide 2022-0 2022- Yes 40mg Take 40 mg [facility] 40 MG TABS 01-05-27 by mouth Lm ege 00:00: 04:59 two times of 00 :00 daily. Medicin e Torsemide 2022-0 2022- Yes 40mg Take 40 mg [facility] 40 MG TABS 01-05-27 by mouth Lm ege 00:00: 04:59 two times of 00 :00 daily. Medicin e Torsemide 2022-0 2022- Yes 40mg Take 40 mg [facility] 40 MG TABS 01-05-27 by mouth Lm ege 00:00: 04:59 two times of 00 :00 daily. Medicin e torsemide 2022-0 2022- Yes 40mg QD Take [address] 40 mg Tab 01-05-26 by mouth [facility] 00:00: 23:59 in the Medical 00 :00 morning Center for 30 days. potassium 2022-0 2023- Yes 10meq Take 1 [facility] chloride 4-25 04-25 Tablet by [employer] [facility] ([employer]) 10 00:00: 04:59 mouth. of MEQ tablet 00 :00 Medicin e potassium 2022-0 2023- Yes 10meq Take 1 [facility] chloride 4-25 04-25 Tablet by [employer] [facility] (KDUR) 10 00:00: 04:59 mouth. of MEQ tablet 00 :00 Medicin e potassium 2022-0 2023- Yes 10meq Take 1 [facility] chloride 4-25 04-25 Tablet by [employer] [facility] (KDUR) 10 00:00: 04:59 mouth. of MEQ tablet 00 :00 Medicin e potassium 2022-0 2023- Yes 10meq QD Take [address] [facility] chloride 4-25 04-24 tablet (10 [facility] (KLOR-CON-M 00:00: 23:59 mEq total) Medical ) 10 MEQ CR 00 :00 by mouth Cent er tablet in the morning. potassium 3-0 2023- No 10meq Take 1 [facility] chloride 4-25 05-19 Tablet by [facility] (KDUR) 10 00:00: 00:00 mouth. of MEQ tablet 00 :00 Medicin e spironolact 3-0 Yes [id number] 25mg Take 1 [facility] one 4-07 Tablet by [place] (ALDACTONE) 00:00: mouth of 25 MG 00 daily. Medicin tablet e omeprazole 2023-0 Yes [id number] 40mg Take 1 [facility] (PRILOSEC) 4-07 capsule by Col [facility]ge 40 MG 00:00: mouth of capsule 00 daily. May Medici n substitute e formulary preferred, generic, brand, or alternativ e. omeprazole 3-0 Yes [id number] 40mg Take 1 [facility] (PRILOSEC) 4-07 capsule by Col [facility]ge 40 MG 00:00: mouth of capsule 00 daily. May Medici n substitute e formulary preferred, generic, brand, or alternativ e. omeprazole 3-0 Yes [id number] 40mg Take 1 [facility] (PRILOSEC) 4-07 capsule by Col [facility]ge 40 MG 00:00: mouth of capsule 00 daily. May Medici n substitute e formulary preferred, generic, brand, or alternativ e. furosemide 2023-0 Yes [id number] 40mg Take 1 [facility] (LASIX) 40 4-07 Tablet by Lm ege MG tablet 00:00: mouth of 00 daily. Medicin e spironolact 3-0 Yes [id number] 25mg Take 1 [facility] one 4-07 Tablet by [place] (ALDACTONE) 00:00: mouth of 25 MG 00 daily. Medicin tablet e omeprazole 3-0 Yes [id number] 40mg Take 1 [facility] (PRILOSEC) 4-07 capsule by Col [facility] 40 MG 00:00: mouth of capsule 00 daily. May Medici n substitute e formulary preferred, generic, brand, or alternativ e. spironolact 2023-0 Yes [id number] 25mg Take 1 [facility] one 4-07 Tablet by [place] (ALDACTONE) 00:00: mouth of 25 MG 00 daily. Medicin tablet e omeprazole 2022-0 Yes [id number] 40mg Take 1 [facility] (PRILOSEC) 4-07 capsule by Col [facility]ge 40 MG 00:00: mouth of capsule 00 daily. May Medici n substitute e formulary preferred, generic, brand, or alternativ e. spironolact 2022-0 Yes [id number] 25mg Take 1 [facility] one 4-07 Tablet by [place] (ALDACTONE) 00:00: mouth of 25 MG 00 daily. Medicin tablet e omeprazole 2022-0 Yes [id number] 40mg Take 1 [facility] (PRILOSEC) 4-07 capsule by Col [facility]ge 40 MG 00:00: mouth of capsule 00 daily. May Medici n substitute e formulary preferred, generic, brand, or alternativ e. spironolact 2022-0 3- No [id number] 25mg Take 1 [facility] one 4-07 05-19 Tablet by [place] (ALDACTONE) 00:00: 00:00 mouth of 25 MG 00 :00 daily. Medicin tablet e furosemide 0 2022- No [id number] 40mg Take 1 [facility] (LASIX) 40 4-07 04-27 Tablet by Col lege MG tablet 00:00: 00:00 mouth of 00 :00 daily. Medicin e tramadol Yes TAKE 1 [facility] (ULTRAM) 50 3-22 TABLET BY Col lege MG tablet 00:00: MOUTH of 00 EVERY 6 Medicin HOURS e NEEDED FOR 10 DAYS (MAX OF 4 TABLETS DAILY) tramadol 0 Yes TAKE 1 [facility] (ULTRAM) 50 3-22 TABLET BY Col lege MG tablet 00:00: MOUTH of 00 EVERY 6 Medicin HOURS e NEEDED FOR 10 DAYS (MAX OF 4 TABLETS DAILY) tramadol 0 Yes TAKE 1 [facility] (ULTRAM) 50 3-22 TABLET BY Col [facility]ge MG tablet 00:00: MOUTH of 00 EVERY 6 Medicin HOURS e NEEDED FOR 10 DAYS (MAX OF 4 TABLETS DAILY) tramadol 0 Yes TAKE 1 [facility] (ULTRAM) 50 3-22 TABLET BY Col lege MG tablet 00:00: MOUTH of 00 EVERY 6 Medicin HOURS e NEEDED FOR 10 DAYS (MAX OF 4 TABLETS DAILY) albuterol 2023- Yes 90ug 1 Puff by [facility] 108 (90 3-22 -22 Inhalation Colle ge base) 00:00: 04:59 route. of mcg/act 00 :00 Medicin inhaler e propranolol 2023- Yes 10mg Take 1 [place] [facility] (INDERAL) 12-01 Tablet by Lm ege 10 MG 00:00: 04:59 mouth. of tablet 00 :00 Medicin e albuterol 2023- Yes 90ug 1 Puff by [facility] 108 (90 -22 -22 Inhalation Colle ge base) 00:00: 04:59 route. of mcg/act 00 :00 Medicin inhaler e propranolol 2023- Yes 10mg Take 1 [place] [facility]if (INDERAL) 12-01 Tablet by Lm ege 10 MG 00:00: 04:59 mouth. of tablet 00 :00 Medicin e albuterol 2023- Yes 90ug 1 Puff by [facility] 108 (90 12-01- Inhalation Colle ge base) 00:00: 04:59 route. of mcg/act 00 :00 Medicin inhaler e propranolol 2023- Yes 10mg Take 1 [place] [facility] (INDERAL) 12-01 Tablet by Lm ege 10 MG 00:00: 04:59 mouth. of tablet 00 :00 Medicin e albuterol 2023- Yes 90ug 1 Puff by [facility] 108 (90 12-01-22 Inhalation Colle ge base) 00:00: 04:59 route. of mcg/act 00 :00 Medicin inhaler e albuterol 2023- Yes 90ug 1 Puff by [facility] 108 (90 3-22 -22 Inhalation Colle ge base) 00:00: 04:59 route. of mcg/act 00 :00 Medicin inhaler e propranolol 2023- Yes 10mg Take 1 [place] clif (INDERAL) 12-01 Tablet by Lm ege 10 MG 00:00: 04:59 mouth. of tablet 00 :00 Medicin e albuterol 2023- Yes 90ug 1 Puff by [facility] 108 (90 -22 03-22 Inhalation Colle ge base) 00:00: 04:59 route. of mcg/act 00 :00 Medicin inhaler e propranolol 2023- Yes 10mg Take 1 [place] clif (INDERAL) 12-01 Tablet by Lm ege 10 MG 00:00: 04:59 mouth. of tablet 00 :00 Medicin e propranoloL 2023- Yes 10mg [id number] Take [address] [facility] (INDERAL) 12-01- [id number] tablet (10 [facility] 10 MG 00:00: 23:59 3D mg total) Medica l tablet 00 :00 by mouth Center in the morning and 1 tablet (10 mg total) at noon and 1 tablet (10 mg total) in the evening. furosemide 2023- Yes 20mg Take [address] [facility] (LASIX) 20 12-01-21 tablet (20 [facility] MG tablet 00:00: 23:59 mg total) Me dical 00 :00 by mouth Center daily as needed (leg swelling). albuterol 2023- Yes 1{puff} Inhale [address] [facility] HFA 12-01- puff by [facility] (VENTOLIN 00:00: 23:59 mouth via Me dical HFA) 90 00 :00 inhaler Center mcg/actuati every 6 on inhaler (six) hours as needed for Wheezing. propranoloL 2023- Yes 10mg Q.[id number] Take [address] [facility] (INDERAL) 12-01- [id number] tablet (10 [facility] 10 MG 00:00: 23:59 3D mg total) Medica l tablet 00 :00 by mouth Center in the morning and 1 tablet (10 mg total) at noon and 1 tablet (10 mg total) in the evening. furosemide 2023- Yes 20mg Take [address] [facility] (LASIX) 20 12-01-21 tablet (20 [facility] MG tablet 00:00: 23:59 mg total) Me dical 00 :00 by mouth Center daily as needed (leg swelling). albuterol 2023- Yes 1{puff} Inhale [address] [facility] HFA 12-01-21 puff by [facility] (VENTOLIN 00:00: 23:59 mouth via Me dical HFA) 90 00 :00 inhaler Center mcg/actuati every 6 on inhaler (six) hours as needed for Wheezing. propranoloL 2023- Yes 10mg Q.[id number] Take [address] [facility] (INDERAL) 12-01- [id number] tablet (10 [facility] 10 MG 00:00: 23:59 3D mg total) Medica l tablet 00 :00 by mouth Center in the morning and 1 tablet (10 mg total) at noon and 1 tablet (10 mg total) in the evening. albuterol 2023- Yes 1{puff} Inhale [address] [facility] HFA 12-01 puff by [facility] (VENTOLIN 00:00: 23:59 mouth via Me dical HFA) 90 00 :00 inhaler Center mcg/actuati every 6 on inhaler (six) hours as needed for Wheezing. tramadol 2022- No TAKE 1 [facility] (ULTRAM) 50 12-01 05-19 TABLET BY Co llege MG tablet 00:00: 00:00 MOUTH of 00 :00 EVERY 6 Medicin HOURS e NEEDED FOR 10 DAYS (MAX OF 4 TABLETS DAILY) furosemide 2022- No 20mg Take [address] [facility] (LASIX) 20 - 04-25 tablet (20 [facility] k[facility] MG tablet 00:00: 00:00 mg total) Me dical 00 :00 by mouth Center daily as needed (leg swelling). furosemide 2022- No 20mg Take 1 [facility] (LASIX) 20 12-01 04-07 Tablet by Col lege MG tablet 00:00: 00:00 mouth. of 00 :00 Medicin e traMADoL 2022- No 50mg Take [address] [facility] (ULTRAM) 50 3- 04-01 tablet (50 L ukes mg tablet 00:00: 23:59 mg total) Me dical 00 :00 by mouth Center every 6 (six) hours as needed for up to 10 days. Max Daily Amount: 200 mg traMADoL 2022- No 50mg Take [address] [facility] (ULTRAM) 50 3- 04-01 tablet (50 L [facility] mg tablet 00:00: 23:59 mg total) Me dical 00 :00 by mouth Center every 6 (six) hours as needed for up to 10 days. Max Daily Amount: 200 mg traMADoL 2022- No 50mg Take [address] [facility] (ULTRAM) 50 12-01 tablet (50 L ukes mg tablet 00:00: 23:59 mg total) Me dical 00 :00 by mouth Center every 6 (six) hours as needed for up to 10 days. Max Daily Amount: 200 mg valsartan Yes 80mg QD Take 80 mg Me [facility]odi (DIOVAN) 80 6-[address] MG tablet 00:00: daily. Hospit a 00 l valsartan Yes 80mg QD Take 80 mg [facility] (DIOVAN) 80 6-[address] MG tablet 00:00: daily. Hospit a 00 l valsartan Yes 80mg QD Take 80 mg Me [facility] (DIOVAN) 80 6-[address] MG tablet 00:00: daily. Hospit a 00 l valsartan Yes 80mg QD Take 80 mg Me [facility]odi (DIOVAN) 80 6-[address] MG tablet 00:00: daily. Hospit a 00 l valsartan Yes 80mg QD Take 80 mg Me thodi (DIOVAN) 80 6-[address] MG tablet 00:00: daily. Hospit a 00 l Vital Signs Vital Name Observation Time Observation Value Comments Source Systolic blood 2023-01-28 20:04:00 100 mm[Hg] [facility] Medicine Diastolic blood 2023-01-28 20:04:00 66 mm[Hg] [facility] Medicine Heart rate 2023-01-28 20:04:00 66 /min [facility] Body temperature 2023-01-28 20:04:[address] [facility] Body weight 2023-01-28 20:04:00 98.068 kg [facility] BMI 2023-01-28 20:04:00 31.93 kg/m2 [facility] Systolic blood 2023-01-28 16:16:00 92 mm[Hg] [facility] pressure Medicine Diastolic blood 2023-01-28 16:16:00 48 mm[Hg] [employer] [facility] Medicine Heart rate 2023-01-28 16:16:00 72 /min [facility] Body temperature 2023-01-28 16:16:[address] [facility] Respiratory rate 2023-01-28 16:16:00 16 /min [facility] Body height 2023-01-28 16:16:[address] [facility] 2023-01-28 16:16:00 97.977 kg [facility] BMI 2023-01-28 16:16:00 31.90 kg/m2 [facility] Oxygen saturation in 2023-01-28 16:16:00 95 /min [facility] blood by [facility] Pulse oximetry HEIGHT 2023-01-25 13:29:00 175.3 cm WEIGHT 2023-01-25 13:29:00 101.696 kg HEIGHT 2023-01-25 13:29:00 175.3 cm WEIGHT 2023-01-25 13:29:00 101.696 kg HEIGHT 2023-01-20 13:18:00 175.3 cm WEIGHT 2023-01-20 13:18:00 104.327 kg HEIGHT 2023-01-20 13:18:00 175.3 cm WEIGHT 2023-01-20 13:18:00 104.327 kg Body weight 2023-01-18 14:17:00 101.606 kg [facility] BMI 2023-01-18 14:17:00 33.08 kg/m2 [facility] Systolic blood 2023-01-07 21:05:00 99 mm[Hg] [facility] pressure Medicine Diastolic blood 2023-01-07 21:05:00 65 mm[Hg] [facility] pressure Medicine Heart rate 2023-01-07 21:05:00 74 /min [facility] Res[facility] rate 2023-01-07 21:05:00 16 /min [facility] Body height 2023-01-07 21:05:[address] [facility] Body weight 2023-01-07 21:05:00 108.319 kg [facility] C [facility]lege of Medicine BMI 2023-01-07 21:05:00 35.26 kg/m2 [facility] of Medicine Systolic blood 2023-01-06 18:26:00 109 mm[Hg] [facility] pressure Medicine Diastolic blood 2023-01-06 18:26:00 73 mm[Hg] [facility] Medicine Heart rate 2023-01-06 18:26:00 78 /min [facility] Medicine Body height 2023-01-06 18:26:00 175.3 cm [facility] of [facility] Body weight 2023-01-06 18:26:00 109.77 kg [facility] BMI 2023-01-06 18:26:00 35.74 kg/m2 [facility] Oxygen saturation in 2023-01-06 18:26:00 98 /min [facility] Arterial blood by [facility] Pulse oximetry WEIGHT 2023-01-04 07:30:00 111.727 kg WEIGHT 2023-01-03 08:33:00 115.299 kg HEIGHT 2023-01-02 09:27:00 175.3 cm WEIGHT 2023-01-02 09:27:00 118.57 kg HEIGHT 2022-12-31 07:28:00 175.3 cm WEIGHT 2022-12-31 07:28:00 119.296 kg HEIGHT 2022-12-29 15:16:00 175.3 cm WEIGHT 2022-12-29 15:16:00 119.3 kg WEIGHT 2023-01-04 07:30:00 111.727 kg WEIGHT 2023-01-03 08:33:00 115.299 kg HEIGHT 2023-01-02 09:27:00 175.3 cm WEIGHT 2023-01-02 09:27:00 118.57 kg HEIGHT 2022-12-31 07:28:00 175.3 cm WEIGHT 2022-12-31 07:28:00 119.296 kg HEIGHT 2022-12-29 15:16:00 175.3 cm WEIGHT 2022-12-29 15:16:00 119.3 kg Systolic blood 2022-12-17 18:08:00 126 mm[Hg] [facility] pressure Medicine Diastolic blood 2022-12-17 18:08:00 82 mm[Hg] [facility] Medicine Heart rate 2022-12-17 18:08:00 86 /min [facility] Body temperature 2022-12-17 18:08:[address] [facility] Respiratory rate 2022-12-17 18:08:00 16 /min [facility] Body height 2022-12-17 18:08:00 175.3 cm [facility] Body weight 2022-12-17 18:08:00 118.842 kg [facility] BMI 2022-12-17 18:08:00 38.69 kg/m2 [facility] Oxygen saturation in 2022-12-17 18:08:00 97 /min [facility] Arterial blood by [facility] Pulse oximetry Heart rate 2023-01-04 15:54:03 71 /min [facility] Respiratory rate 2023-01-04 15:54:03 18 /min [facility] Oxygen saturation in 2023-01-04 15:54:03 96 /min [facility] Arterial blood by Medical nt Pulse oximetry Body temperature 2023-01-04 15:53:12 37 Odilia [facility] Systolic blood 2023-01-04 15:53:00 108 mm[Hg] [facility] Diastolic blood 2023-01-04 15:53:00 69 mm[Hg] [facility] Body weight 2023-01-04 07:30:00 111.727 kg [facility] BMI 2023-01-04 07:30:00 36.37 kg/m2 [facility] Body height 2023-01-02 09:27:00 175.3 cm [facility] Systolic blood 2022-12-01 08:02:00 121 mm[Hg] [facility] Diastolic blood 2022-12-01 08:02:00 60 mm[Hg] [facility] Heart rate 2022-12-01 08:02:00 79 /min [facility] Body temperature 2022-12-01 08:02:00 35.78 Odilia [facility] Respiratory rate 2022-12-01 08:02:00 18 /min [facility] Oxygen saturation in 2022-12-01 08:02:00 93 /min [facility] Arterial blood by Medical Ce nter Pulse oximetry Body height 2022-11-25 08:46:00 175.3 cm [facility] Body weight 2022-11-25 08:46:00 119.296 kg [facility] BMI 2022-11-25 08:46:00 38.84 kg/m2 [facility] Procedures Procedure Date / Time Performing Clinician Source Performed XR CHEST PA AND LATERAL 2023-01-28 15:42:12 [facility] AMB REF TO PT EXTERNAL 2023-01-28 11:55:49 [facility] MAGNESIUM 2023-01-04 05:10:00 [facility] COMPREHENSIVE METABOLIC 2023-01-04 05:10:00 [facility] PHOSPHORUS 2023-01-04 05:10:00 [facility] CALCIUM, IONIZED 2023-01-04 05:09:00 [facility] CBC W/PLT COUNT & AUTO 2023-01-04 05:09:00 [facility] [id number] 2023-01-04 05:09:00 Dipak Arreola [facility] CBC W/PLT COUNT & AUTO 2023-01-04 05:09:[address] [facility] MAGNESIUM 2023-01-03 05:02:00 [facility] COMPREHENSIVE METABOLIC 2023-01-03 05:02:00 Kathy [facility] MAGNESIUM 2023-01-02 05:32:[address] [facility] METABOLIC 2023-01-02 05:32:00 Margie Allred [facility] CALCIUM, IONIZED 2023-01-01 05:50:00 Catalino [facility] COMPREHENSIVE METABOLIC 2023-01-01 05:12:00 [facility] MAGNESIUM 2023-01-01 05:12:[address] [facility] PROTHROMBIN TIME/INR 2023-01-01 05:12:00 [facility] HEREDITARY HEMOCHROMATOSIS 2023-01-01 05:12:00 Dipak Arreola [facility] PHOSPHORUS 2023-01-01 05:12:00 [facility] CBC W/PLT COUNT & AUTO 2023-01-01 05:12:00 [facility] CBC W/PLT COUNT & AUTO 2023-01-01 05:12:00 [facility]D ECHO W/ DOPPLER 2022-12-31 14:04:45 Evelyn Portillo [facility] (CW/PW/COLOR) [facility] REPORT OF PROCEDURE - 2022-12-31 10:28:58 Ruthie Diaz I [facility] ENDOSCOPY [facility] EGD 2022-12-31 08:14:00 Ruthie Diaz [facility] (ESOPHAGOGASTRODUODENOSCOP Medic al Center Y) COMPREHENSIVE METABOLIC 2022-12-31 04:48:00 [facility] MAGNESIUM 2022-12-31 04:48:[address] [facility] PROTHROMBIN TIME/INR 2022-12-31 04:48:00 [facility] CALCIUM, IONIZED 2022-12-31 04:48:00 Catalino [facility] PHOSPHORUS 2022-12-31 04:48:00 [facility] CBC W/PLT COUNT & AUTO 2022-12-31 04:48:00 [facility] CBC W/PLT COUNT & AUTO 2022-12-31 04:48:00 CatalinoCamet [facility] HEPATITIS B CORE ANTIBODY, 2022-12-30 16:29:00 [facility] TOTAL [facility] HEPATITIS A ANTIBODY, IGG 2022-12-30 16:29:[address] C [facility] HEPATITIS C ANTIBODY 2022-12-30 16:29:00 [facility] HEPATITIS B SURFACE 2022-12-30 16:29:00 [facility] ANTIGEN [facility] HEPATITIS B SURFACE 2022-12-30 16:29:00 [facility] ANTIBODY [facility] FERRITIN 2022-12-30 16:29:[address] [facility] IRON, TIBC, % SAT. 2022-12-30 16:29:00 Rosalee [facility] uk (WITHOUT FERRITIN) [facility] CERULOPLASMIN 2022-12-30 16:29:[address] [facility] ALPHA FETOPROTEIN (AFP), 2022-12-30 16:29:00 Rosalee Marisabel I [facility] TUMOR MARKER [facility] ANTI-NUCLEAR ANTIBODY 2022-12-30 16:29:00 [facility] (EMORY) [facility] ACTIN (SMOOTH MUSCLE) 2022-12-30 16:29:00 Rosalee [facility] ANTIBODY, IGG [facility] EMORY TITER AND PATTERN 2022-12-30 16:29:00 [facility] MITOCHONDRIAL AB SCREEN 2022-12-30 16:29:00 [facility] MITOCHONDRIAL AB TITER 2022-12-30 16:29:00 [facility] [id number]\\, 2022-12-30 15:51:00 Rosalee [facility] SERUM [facility] PROTHROMBIN TIME/INR 2022-12-30 15:51:00 [facility] LACTATE DEHYDROGENASE 2022-12-30 15:48:00 [facility] (LDH) [facility] COMPREHENSIVE METABOLIC 2022-12-30 15:48:00 Rosalee [facility] PANEL [facility] MAGNESIUM 2022-12-30 15:48:00 [facility] CALCIUM, IONIZED 2022-12-30 15:48:00 [facility] PHOSPHORUS 2022-12-30 15:48:00 [facility] CBC W/PLT COUNT & AUTO 2022-12-30 15:48:00 [facility] TYPE AND SCREEN, AUTOMATED 2022-12-30 15:48:00 [facility] CBC W/PLT COUNT & AUTO 2022-12-30 15:48:00 [facility] XR CHEST 1 VIEW PORTABLE / 2022-12-30 14:22:00 [facility] US PARACENTESIS 2022-12-30 12:34:[address] [facility] BODY FLUID CULTURE + GRAM 2022-12-30 12:15:00 Marisabel Ho [facility] STAIN [facility] PROTEIN, BODY FLUID 2022-12-30 12:15:00 [facility] ALBUMIN, BODY FLUID 2022-12-30 12:15:00 Saurabhquiana [facility] AMYLASE PERITONEAL FLUID 2022-12-30 12:15:00 [facility] MISCELLANEOUS LAB ORDER 2022-12-30 12:15:00 [facility] BODY FLUID CELL COUNT WITH 2022-12-30 11:59:[address] [facility] [address] ABDOMEN/PELVIS WITH IV 2022-12-30 10:45:00 Margie Allred [facility] CONTRAST [facility] BODY FLUID CELL COUNT WITH 2022-12-30 10:01:00 Marisabel Ho [facility] DIFFERENTIAL [facility] ALBUMIN PLEURAL FLUID 2022-12-30 10:01:00 [facility] GLUCOSE PLEURAL FLUID 2022-12-30 10:01:00 Major Murry [facility] LACTATE DEHYDROGENASE 2022-12-30 10:01:00 TOMASA Wei (LD), PLEURAL FLUID [facility] er PH, BODY FLUID 2022-12-30 10:01:00 Major Murry [facility] PROTEIN, TOTAL, PLEURAL 2022-12-30 10:01:00 Major Murry [facility] FLUID [facility] CYTOLOGY 2022-12-30 09:33:00 Marisabel Ho [facility] BODY FLUID CULTURE + GRAM 2022-12-30 09:27:00 Marisabel Ho [facility] STAIN [facility] MISCELLANEOUS LAB ORDER 2022-12-30 09:26:[address] [facility] BLOOD CULTURE 2022-12-29 23:16:00 Lindsey [facility] URINALYSIS W/ MICROSCOPIC 2022-12-29 21:23:00 [facility] PROTEIN, RANDOM URINE 2022-12-29 21:23:00 [facility] CREATININE, RANDOM URINE 2022-12-29 21:23:00 [facility] PROCALCITONIN 2022-12-29 17:04:00 [facility] LACT[facility]ID, VENOUS 2022-12-29 17:04:00 [facility]ST 1 VIEW PORTABLE / 2022-12-29 15:48:00 Marisabel Ho [facility] BEDSIDE [facility] B-TYPE NATRIURETIC FACTOR 2022-12-29 14:58:[address] [facility] (BNP) [facility] CBC W/PLT COUNT & AUTO 2022-12-29 13:10:00 Rosalee [facility] DIFFERENTIAL [facility] COMPREHENSIVE METABOLIC 2022-12-29 13:10:00 [facility] PANEL [facility] PROTHROMBIN TIME/INR 2022-12-29 13:10:00 Rosalee [facility] MAGNESIUM 2022-12-29 13:10:00 Rosalee [facility] CBC W/PLT COUNT & AUTO 2022-12-29 13:10:00 [facility] PREPARE PLASMA 2022-12-01 23:54:00 Graham [facility] CBC (HEMOGRAM ONLY) 2022-12-01 03:41:00 Graham [facility] METABOLIC 2022-12-01 03:41:00 Graham [facility] REPORT OF PROCEDURE - 2022-11-30 12:20:26 Jeannette, [facility] [place] FLUORO NON-SPECIFIC UP 2022-11-30 09:10:00 Jeannette, Arcenio [facility] TO [address] [place] [address] FINE NEEDLE ASPIRATION BY 2022-11-30 08:48:00 Jeannette, Arceniomaritza [facility] FINE NEEDLE ASPIRATE (FNA) 2022-11-30 08:48:00 Jeannette, Arcenio Gold [facility] ESOPHAGOSCOPY, WITH 2022-11-30 08:16:00 Jeannette, Arcenio Cole [facility] I [facility] ENDOSCOPIC ULTRASOUND Medical Ce nter ULTRASOUND, UPPER GI 2022-11-30 08:16:00 Jeannette, Arcenio Mcgee [facility] TRACT, ENDOSCOPIC, [facility] FINE NEEDLE ASPIRATION PROCEDURE W/ C-ARM 2022-11-30 08:16:00 Jeannette, Arcenio [facility] TRANSFUSE PLASMA 2022-11-30 05:15:00 Dipak Stevenson [facility] CBC (HEMOGRAM ONLY) 2022-11-30 03:22:00 [facility] METABOLIC 2022-11-30 03:22:00 Graham [facility] PROTHROMBIN TIME/INR 2022-11-30 03:22:00 Graham [facility] PROTHROMBIN TIME/INR 2022-11-29 22:46:00 Jen Samuel [facility] TYPE AND SCREEN, AUTOMATED 2022-11-29 22:46:00 Graham [facility] ANTIBODY SCREEN 2022-11-29 22:46:00 Graham [facility] NM HEPATOBILIARY (HIDA) 2022-11-29 12:01:00 Dipak Arreola [facility] SCAN WITH [facility] Medical Cente r FRACTION CBC (HEMOGRAM ONLY) 2022-11-29 04:42:00 [facility] METABOLIC 2022-11-29 04:42:00 Graham [facility] CBC (HEMOGRAM ONLY) 2022-11-28 00:55:00 [facility] METABOLIC 2022-11-28 00:55:00 Graham [facility] CBC (HEMOGRAM ONLY) 2022-11-27 04:39:00 [facility] METABOLIC 2022-11-27 04:39:00 Graham [facility] CBC W/PLT COUNT & AUTO 2022-11-26 04:43:00 Rylie Chong [facility] BASIC METABOLIC PANEL 2022-11-26 04:43:[address] [facility] HEPATIC FUNCTION PANEL 2022-11-26 04:43:[address] [facility] CBC W/PLT COUNT & AUTO 2022-11-26 04:43:00 Castillo [facility] PROTHROMBIN TIME/INR 2022-11-26 04:43:00 Rylie Chong [facility] MR ABDOMEN WITHOUT IV 2022-11-25 21:58:00 [facility] US ABDOMEN LIMITED 2022-11-25 16:23:00 ChongRylie [facility] URINE CULTURE 2022-11-25 09:58:00 [facility] URINALYSIS W/ REFLEX URINE 2022-11-25 09:58:00 [facility] ABORH, MANUAL 2022-11-25 08:39:00 Leydi Gaitan [facility] CBC W/PLT COUNT & AUTO 2022-11-25 06:36:00 Judi Vigil [facility] CBC W/PLT COUNT & AUTO 2022-11-25 06:36:00 Judi Vigil [facility] COMPREHENSIVE METABOLIC 2022-11-25 06:36:00 Judi Vigil [facility] PANEL [facility] MAGNESIUM 2022-11-25 06:36:00 [facility] hospital[facility] huang [facility] PHOSPHORUS 2022-11-25 06:36:00 [facility] PROTHROMBIN TIME/INR 2022-11-25 06:36:00 [facility] BILIRUBIN, DIRECT 2022-11-25 06:36:00 Kelly Finley [facility] TYPE AND SCREEN, AUTOMATED 2022-11-25 06:35:00 Kirk Vigil [facility] Plan of Care Planned Activity Planned Date Details Comments Source Future Scheduled 2023-12-[address] [facility] 00:00[facility]00 [facility] Screening (12+) [code = Tobacco Cessation Counseling and Screening (12+)] Future Scheduled 2023-05-[address] [facility] Test 00:00:00 (Season Ended) [code = Medic ia Center INFLUENZA VACCINE (Season Ended)] Future Scheduled 2023-05-[address] [facility] Test 00:00:00 (Season Ended) [code = Medic al Center INFLUENZA VACCINE (Season Ended)] Future Scheduled 2023-05-[address] [facility] Test 00:00:00 (Season Ended) [code = Medic al Center INFLUENZA VACCINE (Season Ended)] Future Scheduled 2023-02-14 [facility] ne[facility] colon Hospital (procedure) [code = 467082092] Future Scheduled 2023-02-14 Screening for malignant [facility] 23:01:21 neoplasm of colon Hospital (procedure) [code = 781953381] Future Scheduled 2023-02-14 Screening for malignant [facility] 23:01:21 neoplasm of colon Hospital (procedure) [code = 450517858] Future Scheduled 2023-02-14 COVID-19 [facility]ACCINE (#[facility]) [facility]21 [code = COVID-19 Hospital VACCINE (#1)] Future Scheduled 2023-02-14 Screening for malignant [facility] 23:01:21 neoplasm of cervix Hospital (procedure) [code = 503149899] Future Scheduled 2023-02-14 BREAST CANCER SCREENING [facility] 23:01:21 [code = BREAST CANCER Hospit al SCREENING] Future Scheduled 2023-02-14 Screening for malignant [facility] 23:01:21 neoplasm of colon Hospital (procedure) [code = 544251171] Future Scheduled 2023-02-14 Screening for malignant [facility] 23:01:21 neoplasm of colon Hospital (procedure) [code = 191821451] Future Scheduled 2023-02-14 SHINGLES VACCINES (1 of [facility] 23:01:21 2) [code = SHINGLES Hospital VACCINES (1 of 2)] Future Scheduled 2023-02-14 INFLUENZA VACCINE [code [facility] 23:01:21 = INFLUENZA VACCINE] Hospita l Future Scheduled 2023-01-28 Screening for malignant [employer] [facility] 15:58:31 neoplasm of colon of Medicin e (procedure) [code = 309683685] Future Scheduled 2023-01-28 Screening for malignant [facility] Test 15:58:31 neoplasm of breast of Medici ne (procedure) [code = 973601497] Future Scheduled 2023-01-28 Pneumococcal Combined [facility] Test 15:58:31 (1 - PCV) [code = of Medicin e Pneumococcal Combined (1 - PCV)] Future Scheduled 2023-01-28 TETANUS SHOT (ADULT) [place] [facility] [employer] [facility] 15:58:31 [code = TETANUS SHOT of Medi cine (ADULT)] Future Scheduled 2023-01-28 BMI Follow Up Plan [employer] [facility] 15:58:31 [code = BMI Follow Up of Med icine Plan] Future Scheduled 2023-01-28 Human immunodeficiency [facility] [employer] [facility] 15:58:31 virus screening of Medicine (procedure) [code = 750969631] Future Scheduled 2023-01-28 Screening for malignant [facility] [employer] Test 15:58:31 neoplasm of cervix of Medici ne (procedure) [code = 498233665] Future Scheduled 2023-01-28 Zoster Vaccine (1 of 2) [facility] [employer] [facility] 15:58:31 [code = Zoster Vaccine of Me dicine (1 of 2)] Future Scheduled 2023-01-28 COVID-19 Vaccine (2 - Ba or [facility] Test 15:58:31 Booster for Mary Ann of Medic ine series) [code = COVID-19 Vaccine (2 - Booster for Mary Ann series)] Future Scheduled 2023-01-28 FLU VACCINE > 6 MONTHS [facility] [employer] [facility] 15:58:31 [code = FLU VACCINE > 6 of M edicine MONTHS] Future Scheduled 2023-01-28 XR CHEST PA AND LATERAL Every 2 Weeks for [employer] [facility] 15:42:12 [code = 47374-3] 12 Occurrences of Medici ne starting 01/28/2023 until 01/29/2024 Future Scheduled 2023-01-28 Screening for malignant [facility] [employer] Test 11:19:56 neoplasm of colon of Medicin e (procedure) [code = 444847570] Future Scheduled 2023-01-28 Screening for malignant [employer] [facility] 11:19:56 neoplasm of breast of Medici ne (procedure) [code = 854824900] Future Scheduled 2023-01-28 Pneumococcal Combined [employer] [facility] 11:19:56 (1 - PCV) [code = of Medicin e Pneumococcal Combined (1 - PCV)] Future Scheduled 2023-01-28 TETANUS SHOT (ADULT) [place] [facility] [employer] [facility] 11:19:56 [code = TETANUS SHOT of Medi cine (ADULT)] Future Scheduled 2023-01-28 BMI Follow Up Plan [employer] [facility] 11:19:56 [code = BMI Follow Up of Med icine Plan] Future Scheduled 2023-01-28 Human immunodeficiency [facility] 11:19:56 virus screening of Medicine (procedure) [code = 464493185] Future Scheduled 2023-01-28 Screening for malignant [employer] [facility] 11:19:56 neoplasm of cervix of Medici ne (procedure) [code = 789153445] Future Scheduled 2023-01-28 Zoster Vaccine (1 of 2) [employer] [facility] 11:19:56 [code = Zoster Vaccine of Me dicine (1 of 2)] Future Scheduled 2023-01-28 COVID-19 Vaccine (2 - [facility] [employer] [facility] 11:19:56 Booster for Mary Ann of Medic ine series) [code = COVID-19 Vaccine (2 - Booster for Mary Ann series)] Future Scheduled 2023-01-28 FLU VACCINE > 6 MONTHS [employer] [facility] 11:19:56 [code = FLU VACCINE > 6 of M edicine MONTHS] Future Scheduled 2023-01-18 Screening for malignant [facility] [employer] Test 09:49:53 neoplasm of colon of Medicin e (procedure) [code = 151718195] Future Scheduled 2023-01-18 Screening for malignant [facility] [employer] [facility] 09:49:53 neoplasm of breast of Medici ne (procedure) [code = 317888493] Future Scheduled 2023-01-18 Pneumococcal Combined [employer] [facility] 09:49:53 (1 - PCV) [code = of Medicin e Pneumococcal Combined (1 - PCV)] Future Scheduled 2023-01-18 TETANUS SHOT (ADULT) [place] [facility] [employer] [facility] 09:49:53 [code = TETANUS SHOT of Medi cine (ADULT)] Future Scheduled 2023-01-18 BMI Follow Up Plan [employer] [facility] 09:49:53 [code = BMI Follow Up of Med icine Plan] Future Scheduled 2023-01-18 Human immunodeficiency [facility] 09:49:53 virus screening of Medicine (procedure) [code = 978827527] Future Scheduled 2023-01-18 Screening for malignant [employer] [facility] 09:49:53 neoplasm of cervix of Medici ne (procedure) [code = 357481862] Future Scheduled 2023-01-18 ZOSTER VACCINE (1 of 2) [employer] [facility] 09:49:53 [code = ZOSTER VACCINE of Me dicine (1 of 2)] Future Scheduled 2023-01-18 COVID-19 Vaccine (2 - [facility] [employer] [facility] 09:49:53 Booster for Mary Ann of Medic ine series) [code = COVID-19 Vaccine (2 - Booster for Mary Ann series)] Future Scheduled 2023-01-18 FLU VACCINE > 6 MONTHS [employer] [facility] 09:49:53 [code = FLU VACCINE > 6 of M edicine MONTHS] Future Scheduled 2023-01-07 Screening for malignant [employer] [facility] 16:42:32 neoplasm of colon of Medicin e (procedure) [code = 814699243] Future Scheduled 2023-01-07 Screening for malignant [facility] [employer] Test 16:42:32 neoplasm of breast of Medici ne (procedure) [code = 664049756] Future Scheduled 2023-01-07 Pneumococcal Combined [employer] [facility] 16:42:32 (1 - PCV) [code = of Medicin e Pneumococcal Combined (1 - PCV)] Future Scheduled 2023-01-07 TETANUS SHOT (ADULT) [place] [facility] [employer] [facility] 16:42:32 [code = TETANUS SHOT of Medi cine (ADULT)] Future Scheduled 2023-01-07 BMI Follow Up Plan [employer] [facility] 16:42:32 [code = BMI Follow Up of Med icine Plan] Future Scheduled 2023-01-07 Human immunodeficiency [employer] [facility] 16:42:32 virus screening of Medicine (procedure) [code = 408618665] Future Scheduled 2023-01-07 Screening for malignant [facility] [employer] [facility] 16:42:32 neoplasm of cervix of Medici ne (procedure) [code = 588693969] Future Scheduled 2023-01-07 ZOSTER VACCINE (1 of 2) [facility] 16:42:32 [code = ZOSTER VACCINE of Me dicine (1 of 2)] Future Scheduled 2023-01-07 COVID-19 Vaccine (2 - [facility] [employer] [facility] 16:42:32 Booster for Mary Ann of Medic ine series) [code = COVID-19 Vaccine (2 - Booster for Mary Ann series)] Future Scheduled 2023-01-07 FLU VACCINE > 6 MONTHS [employer] [facility] 16:42:32 [code = FLU VACCINE > 6 of M edicine MONTHS] Future Scheduled 2023-01-07 COMPLETE PFT WITH 1 Occurrences [employer] [facility] 16:29:45 BRONCHODILATOR [code = starting of Me dicine 28188] 01/07/2023 until 01/08/2024 Future Scheduled 2023-01-06 Screening for malignant [facility] Test 15:09:29 neoplasm of colon of Medicin e (procedure) [code = 435876824] Future Scheduled 2023-01-06 Screening for malignant [facility] Test 15:09:29 neoplasm of breast of Medici ne (procedure) [code = 754659099] Future Scheduled 2023-01-06 Pneumococcal Combined Ba [facility] Test 15:09:29 (1 - PCV) [code = of Medicin e Pneumococcal Combined (1 - PCV)] Future Scheduled 2023-01-06 TETANUS SHOT (ADULT) [place] [facility] [employer] [facility] 15:09:29 [code = TETANUS SHOT of Medi cine (ADULT)] Future Scheduled 2023-01-06 BMI Follow Up Plan [facility] [employer] Test 15:09:29 [code = BMI Follow Up of Med icine Plan] Future Scheduled 2023-01-06 Human immunodeficiency B [facility] Test 15:09:29 virus screening of Medicine (procedure) [code = 733708734] Future Scheduled 2023-01-06 Screening for malignant [facility] Test 15:09:29 neoplasm of cervix of Medici ne (procedure) [code = 250325499] Future Scheduled 2023-01-06 ZOSTER VACCINE (1 of 2) [facility] Test 15:09:29 [code = ZOSTER VACCINE of Me dicine (1 of 2)] Future Scheduled 2023-01-06 COVID-19 Vaccine (2 - Ba [facility] Test 15:09:29 Booster for Mary Ann of Medic ine series) [code = COVID-19 Vaccine (2 - Booster for Mary Ann series)] Future Scheduled 2023-01-06 FLU VACCINE > 6 MONTHS [facility] Test 15:09:29 [code = FLU VACCINE > 6 of M edicine MONTHS] Future Scheduled 2023-01-06 COMPREHENSIVE METABOLIC Ordered: [facility] Test 13:54:07 PANEL [code = 83101-4] 01/06/2023 of Me dicine Future Scheduled 2023-01-06 MAGNESIUM [code = Ordered: [facility] Test 13:54:07 89394-4] 01/06/2023 of Medicine Future Scheduled 2023-01-06 COL[facility]OSCOPY [facility]CREENING [facility] 08:48:32 [code = COLONOSCOPY Hospital SCREENING] Future Scheduled 2023-01-06 SHINGLES VACCINES (1 of [facility] 08:48:32 2) [code = SHINGLES Hospital VACCINES (1 of 2)] Future Scheduled 2023-01-06 INFLUENZA VACCINE [code [facility] 08:48:32 = INFLUENZA VACCINE] Hospita l Future Scheduled 2023-01-06 COVID-19 VACCINE (#1) [facility] 08:48:32 [code = COVID-19 Hospital VACCINE (#1)] Future Scheduled 2023-01-06 Screening for malignant [facility] 08:48:32 neoplasm of cervix Hospital (procedure) [code = 184280701] Future Scheduled 2023-01-06 BREAST CANCER SCREENING [facility] 08:48:32 [code = BREAST CANCER Hospit al SCREENING] Future Scheduled 2022-12-17 Screening for malignant [facility] Test 14:08:07 neoplasm of colon of Medicin e (procedure) [code = 015275422] Future Scheduled 2022-12-17 Screening for malignant [facility] Test 14:08:07 neoplasm of breast of Medici ne (procedure) [code = 736466698] Future Scheduled 2022-12-17 Pneumococcal Combined [facility] Test 14:08:07 (1 - PCV) [code = of Medicin e Pneumococcal Combined (1 - PCV)] Future Scheduled 2022-12-17 TETANUS SHOT (ADULT) [place] [facility] Test 14:08:07 [code = TETANUS SHOT of Medi cine (ADULT)] Future Scheduled 2022-12-17 BMI Follow Up Plan [facility] Test 14:08:07 [code = BMI Follow Up of Med icine Plan] Future Scheduled 2022-12-17 Human immunodeficiency [facility] Test 14:08:07 virus screening of Medicine (procedure) [code = 567913686] Future Scheduled 2022-12-17 Hepatitis C screening [facility] Test 14:08:07 (procedure) [code = of Medic ine 104114047] Future Scheduled 2022-12-17 Screening for malignant [facility] Test 14:08:07 neoplasm of cervix of Medici ne (procedure) [code = 621199727] Future Scheduled 2022-12-17 ZOSTER VACCINE (1 of 2) [facility] Test 14:08:07 [code = ZOSTER VACCINE of Me dicine (1 of 2)] Future Scheduled 2022-12-17 COVID-19 Vaccine (2 - [facility] Test 14:08:07 Booster for Mary Ann of Medic ine series) [code = COVID-19 Vaccine (2 - Booster for Mary Ann series)] Future Scheduled 2022-12-17 FLU VACCINE > 6 MONTHS [facility] [employer] [facility] 14:08:07 [code = FLU VACCINE > 6 of M edicine MONTHS] Future Scheduled 2022-12-17 BASIC METABOLIC PANEL Ordered: [facility] 13:39:32 [code = 98295-3] 12/17/2022 of Medicine Future Scheduled 2022-12-17 MAGNESIUM [code = Ordered: [facility] Test 13:39:32 68146-8] 12/17/2022 of Medicine Future Scheduled 2022-12-17 CBC W/AUTO DIFF WITH Ordered: [facility] Test 13:37:12 PLATELETS [code = 12/17/2022 of Medicin e 52760-8] Future Scheduled 2022-12-17 COMPREHENSIVE METABOLIC Ordered: [facility] Test 13:37:12 PANEL [code = 46936-9] 12/17/2022 of Me dicine Future Scheduled 2022-12-17 COVID-19 [facility]INE (#1) [facility] 12:12:44 [code = COVID-19 Hospital VACCINE (#1)] Future Scheduled 2022-12-17 Screening for malignant [facility] 12:12:44 neoplasm of cervix Hospital (procedure) [code = 859573745] Future Scheduled 2022-12-17 BREAST CANCER SCREENING [facility] 12:12:44 [code = BREAST CANCER Hospit al SCREENING] Future Scheduled 2022-12-17 [facility]COPY [facility]CRE[facility]ING [facility] 12:12:44 [code = COLONOSCOPY Hospital SCREENING] Future Scheduled 2022-12-17 SHINGLES VACCINES (1 of [facility] 12:12:44 2) [code = SHINGLES Hospital VACCINES (1 of 2)] Future Scheduled 2022-12-17 INFLUENZA VACCINE [code [facility] 12:12:44 = INFLUENZA VACCINE] Hospita l Future Scheduled 2022-12-17 COVID-19 VACCINE (#1) [facility] 12:12:44 [code = COVID-19 Hospital VACCINE (#1)] Future Scheduled 2022-12-17 Screening for malignant [facility] 12:12:44 neoplasm of cervix Hospital (procedure) [code = 130991238] Future Scheduled 2022-12-17 BREAST CANCER SCREENING [facility] 12:12:44 [code = BREAST CANCER Hospit al SCREENING] Future Scheduled 2022-12-17 [facility]COPY [facility]CRE[facility]ING [facility] 12:12:44 [code = COLONOSCOPY Hospital SCREENING] Future Scheduled 2022-12-17 SHINGLES VACCINES (1 of [facility] 12:12:44 2) [code = SHINGLES Hospital VACCINES (1 of 2)] Future Scheduled 2022-12-17 INFLUENZA VACCINE [code [facility] 12:12:44 = INFLUENZA VACCINE] Hospita l Future Scheduled 2022-09-05 [facility]OSCOPY [facility]CRE[facility]ING [facility] 11:52:03 [code = COLONOSCOPY Hospital SCREENING] Future Scheduled 2022-09-05 SHINGLES VACCINES (1 of [facility] 11:52:03 2) [code = SHINGLES Hospital VACCINES (1 of 2)] Future Scheduled 2022-09-05 INFLUENZA VACCINE [code [facility] 11:52:03 = INFLUENZA VACCINE] Hospita l Future Scheduled 2022-09-05 COVID-19 VACCINE (#1) [facility] 11:52:03 [code = COVID-19 Hospital VACCINE (#1)] Future Scheduled 2022-09-05 Screening for malignant [facility] 11:52:03 neoplasm of cervix Hospital (procedure) [code = 143069713] Future Scheduled 2022-09-05 BREAST CANCER SCREENING [facility] 11:52:03 [code = BREAST CANCER Hospit al SCREENING] Future Scheduled 2014 SHINGLES VACCINES ([address] [facility] Test 00:00:00 2) [code = SHINGLES Medical Center VACCINES (1 of 2)] Future Scheduled 2014 SHINGLES VACCINES ([address] [facility] Test 00:00:00 2) [code = SHINGLES Medical Center VACCINES (1 of 2)] Future Scheduled 2014 SHINGLES VACCINES ([address] [facility] Test 00:00:00 2) [code = SHINGLES Medical Center VACCINES (1 of 2)] Future Scheduled 2009 Lipid panel (procedure) [facility] Test 00:00:00 [code = 73799397] Medical Ce nter Future Scheduled 2009 Lipid panel (procedure) [facility] Test 00:00:00 [code = 87421872] Medical Ce nter Future Scheduled 2009 Lipid panel (procedure) [facility] Test 00:00:00 [code = 40454014] Medical Ce nter Future Scheduled 1985 Screening for malignant [facility] Test 00:00:00 neoplasm of cervix Medical C enter (procedure) [code = 484203327] Future Scheduled 1985 Screening for malignant [facility] Test 00:00:00 neoplasm of cervix Medical C enter (procedure) [code = 698263736] Future Scheduled 1985 Screening for malignant [facility] Test 00:00:00 neoplasm of cervix Medical C enter (procedure) [code = 672888800] Future Scheduled 1983 DTAP/TDAP/TD [facility]ACCINES [facility] 00:00:00 (1 - Tdap) [code = Medical C enter DTAP/TDAP/TD VACCINES (1 - Tdap)] Future Scheduled 1983 DTAP/TDAP/TD [facility]ACCINES [facility] 00:00:00 (1 - Tdap) [code = Medical C enter DTAP/TDAP/TD VACCINES (1 - Tdap)] Future Scheduled 1983 DTAP/TDAP/TD [facility]ACCINES [facility] 00:00:00 (1 - Tdap) [code = Medical C enter DTAP/TDAP/TD VACCINES (1 - Tdap)] Future Scheduled 1982 HEPATITIS C [facility]CRE[facility] 00:00:00 [code = HEPATITIS C Medical Center SCREENING] Future Scheduled 1982 HEPATITIS C [facility] 00:00:00 [code = HEPATITIS C Medical Center SCREENING] Future Scheduled [address] [facility] Test 00:00:00 Counseling and Medical Cente r Screening (12+) [code = Tobacco Cessation Counseling and Screening (12+)] Future Scheduled [address] [facility] Test 00:00:00 Counseling and Medical Cente r Screening (12+) [code = Tobacco Cessation Counseling and Screening (12+)] Future Scheduled [address] [facility] Test 00:00:00 0-64 YRS (1 - PCV) Medical C enter [code = PNEUMOCOCCAL VACCINE 0-64 YRS (1 - PCV)] Future Scheduled 1964 COVID-19 VACCINE (#1) [facility] 00:00:00 [code = COVID-[address] VACCINE (#1)] Future Scheduled 1964 COVID-19 VACCINE (#1) [facility] 00:00:00 [code = COVID-[address] VACCINE (#1)] Future Scheduled 1965 COVID-19 VACCINE (#1[facility] 00:00:00 [code = COVID-[address] VACCINE (#1)] Future Scheduled 1964 Screening for malignant [facility] Test 00:00:00 neoplasm of breast Medical C enter (procedure) [code = 431419947] Future Scheduled 1964 CT Colonography (combo) [facility] Test 00:00:00 [code = CT Colonography [facility] (combo)] Future Scheduled 1964 Screening for malignant [facility] Test 00:00:00 neoplasm of colon Medical Ce nter (procedure) [code = 972722712] Future Scheduled 1964 Screening for malignant [facility] Test 00:00:00 neoplasm of colon Medical Ce nter (procedure) [code = 312532250] Future Scheduled 1964 Screening for malignant [facility] Test 00:00:00 neoplasm of colon Medical Ce nter (procedure) [code = 822047659] Future Scheduled 1964 Screening for malignant [facility] Test 00:00:00 neoplasm of colon Medical Ce nter (procedure) [code = 310782973] Future Scheduled 1965 Sigmoidoscopy [code = [facility]oscopy] Medical Cente r Future Scheduled 1964 Screening for malignant [facility] Test 00:00:00 neoplasm of breast Medical C enter (procedure) [code = 841908846] Future Scheduled 1964 CT Colonography (combo) [facility] Test 00:00:00 [code = CT Colonography [facility] (combo)] Future Scheduled 1964 Screening for malignant [facility] Test 00:00:00 neoplasm of colon Medical Ce nter (procedure) [code = 975528516] Future Scheduled 1964 Screening for malignant [facility] Test 00:00:00 neoplasm of colon Medical Ce nter (procedure) [code = 243971273] Future Scheduled 1964 Screening for malignant [facility] Test 00:00:00 neoplasm of colon Medical Ce nter (procedure) [code = 412591258] Future Scheduled 1964 Screening for malignant [facility] Test 00:00:00 neoplasm of colon Medical Ce nter (procedure) [code = 188248409] Future Scheduled 1965 Sigmoidoscopy [facility]code = [facility]oscopy] Medical Cente r Future Scheduled 1964 Screening for malignant [facility] Test 00:00:00 neoplasm of breast Medical C enter (procedure) [code = 781094511] Future Scheduled 1964 CT Colonography (combo) [facility] Test 00:00:00 [code = CT Colonography [facility] (combo)] Future Scheduled 1964 Screening for malignant [facility] Test 00:00:00 neoplasm of colon Medical Ce nter (procedure) [code = 850187911] Future Scheduled 1964 Screening for malignant [facility] Test 00:00:00 neoplasm of colon Medical Ce nter (procedure) [code = 014917523] Future Scheduled 1964 Screening for malignant [facility] Test 00:00:00 neoplasm of colon Medical Ce nter (procedure) [code = 757081911] Future Scheduled 1964 Screening for malignant [facility] Test 00:00:00 neoplasm of colon Medical Ce nter (procedure) [code = 816063788] Future Scheduled 1965 Sigmoidoscopy [facility]code [facility] S[facility]oscopy] Medical Cente r Encounters Start End Encounter Admission Attending Care Care Encounter Source Date/Time Date/Time Type Type Clinicians Facility Department ID 2023-05-12 2023-05-12 Outpatient GE TURNER [id number] [facility] 00:00:00 00:00:00 SUNTRAVIS Betancur 2023-04-22 2023-04-22 Outpatient GE MISHRA [id number] [facility] 00:00:00 00:00:00 CALLIE Colle ge of Medicin e 2023-04-18 2023-04-18 [facility] [id number] [facility] 00:00:00 00:00:00 2023-02-21 2023-02-21 Out[facility] [id number] [facility] 00:00:00 00:00:00 DIPABEN 2023-02-04 2023-02-04 Outpatient EL GEORGIANA, [facility] [id number] [facility] 09:09:56 23:59:00 DIPABEN 2023-01-28 2023-01-28 Office GEORGIANA, [facility] 1.2.840.114 [id number] [facility] 15:00:12 16:52:28 Visit JOSELUIS AMBULATOR 350.1.13.21 College Y 0.2.7.2.686 of [id number] Medi miya 315 e 2023-01-28 2023-01-28 Outpatient [facility] [id number] [facility] 15:58:43 15:58:43 Colleg e of Medicin e 2023-01-28 2023-01-28 Office COREY [facility] 1.2.840.114 [id number] [facility] 11:14:35 13:58:43 Visit SAURABH AMBULATOR 350.1.13.21 College Y 0.2.7.2.686 of [id number] Medi miya 300 e 2023-01-27 2023-01-27 Outpatient JEANNETTE, [facility] [id number] [facility] 00:00:00 00:00:00 ARCENIO Colleg e of Medicin e 2023-01-25 2023-01-25 Outpatient [facility] [id number] [facility] 13:24:47 13:24:47 SAMANTHA 2023-01-20 2023-01-23 Inpatient ER MASSUMI, [facility] Emergency [id number] [facility] 13:21:00 15:13:00 HEATHER 2023-01-18 2023-01-18 Office GE Mishra 1.2.840.114 [id number] [facility] 09:00:00 09:50:03 Visit Callie AMBULATOR 350.1.13.21 College Y 0.2.7.2.686 of [id number] Medi miya 325 e 2023-01-07 2023-01-07 Office GEORGIANA BCEloisa 1.2.840.114 [id number] [facility] 16:02:13 16:42:51 Visit ROMANABEN AMBULATOR 350.1.13.21 College Y 0.2.7.2.686 of [id number] Medi miya 315 e 2023-01-06 2023-01-06 Office Corey YIFAN 1.2.840.114 [id number] [facility] 13:15:00 14:55:25 Visit Saurabh AMBULATOR 350.1.13.21 College Y 0.2.7.2.686 of [id number] Medi miya 300 e 2022-12-29 2023-01-04 Inpatient ER VIRGILIO ALLRED Internal [id number] [facility] 12:45:00 18:19:00 [facility] Med 2022-12-31 2022-12-31 Anesthesia Du Leal [facility] [id number] [facility] 08:14:00 09:23:00 Event Jamey [facility] 2022-12-31 2022-12-31 Surgery Fabiano [facility] [id number] [facility] 08:00:00 09:00:00 [facility] 2022-12-31 2022-12-31 [id number] [facility] 07:48:31 07:48:31 RUTHIE burris of Medicin e 2022-12-30 2022-12-30 Outpatient GE LAZO [facility] [id number] [facility] 00:00:00 00:00:00 ARCENIO Denny e of Medicin e 2022-12-29 2022-12-29 Office Paul Sutton [facility] [id number] [facility] 12:00:00 13:00:00 Visit Amie Gomez [facility] 2022-12-29 2022-12-29 Outpatient EL [place] [id number] [facility] 00:00:00 00:00:00 AMIE 2022-12-29 2022-12-29 Travel [facility] [id number] [facility] 00[facility]00 [facility] 2022-12-17 2022-12-17 Office CoreyGE 1.2.840.114 [id number] [facility] 12:45:00 14:08:34 Visit Saurabh AMBULATOR 350.1.13.21 College Y 0.2.7.2.686 of [id number] Medi miya 300 e 2022-11-25 2022-12-01 Hospital ER Megha Singer [facility] [id number] 04:43:00 11:42:00 Encounter Rylie Chong, [facility] 2022-11-25 2022-12-01 Inpatient ER [facility] [id number] [facility] 04:43:00 11:42:00 [facility] 2022-11-30 2022-11-30 Anesthesia Eun Gregory [facility] [id number] [facility] 08:16:00 09:34:00 Event Monica Ruiz Denise [facility] 2022-11-30 2022-11-30 Surgery Jeannette, [facility] [id number] 08:02:00 09:00:[address] [facility] 2022-11-30 2022-11-30 Outpatient GE LAZO [facility] [id number] [facility] 07:47:25 07:47:25 ARCENIOMARITZA Denny e of Medicin e 2022-11-30 2022-11-30 Outpatient GE LAZO [facility] [id number] [facility] 07:47:08 07:47:08 ARCENIO Byrong e of Medicin e Results Test Description Test Time Test Comments Results Result Comments Source CYTOLOGY 2023-02-09 Medical Cytology 18:46:14 Report Case: [id number] Authorizing Provider: Joseluis Stoner MD Collected: 02/04/2023 02:25 PM Ordering Location: [facility] Radiology Ultrasound Received: 02/08/2023 08:26 AM Pathologist: Simon Corona MD Specimen: Pleural, Left LEFT PLEURAL FLUID (CYTOSPINS AND CELL BLOCK): - NEGATIVE FOR MALIGNANCY - Reactive mesothelial cells, histiocytes, and lymphocytes Signing Pathologist Direct Phone Line: [phone] coleen signed by Simon Corona MD on 02/09/2023 at 6:46 [id number], [phone] y.o. F with h/o BISHOP cirrhosis decompensated with EV, hydrothorax HTN, abscess (MRSA), asthma.LEFT PLEURAL FLUIDA. Pleural, LeftReceived 1100 ml orange cream fluid; prepared 4 cytospins and cell block(A2)(collodion bag) - the cell block was fixed in formalin at 16:44 on 3Performed.S [facility], [facility], [address] [place] [address] 780[address], [facility], [address] [place] [address], [facility], [facility] of [facility], [address] [place] [address] 27067, BODY FLUID CULTURE + GRAM STAIN 2023-02-07 13:30:56 Test Item Value Reference Range Interpretation Comme nts CULTURE (BEAKER) (test code = 1095) No growth BODY FLUID CELL COUNT WITH [id number] 17:29:30 Test Item Value Reference Range Interpretation Comments APPEARANCE FLUID (BEAKER) (test Bloody Clear A code = 510) COLOR FLUID (BEAKER) (test code Red Colorless, Straw A = 511) RBC FLUID (BEAKER) (test code = 43604 /cu mm <=1 H 513) TOTAL NUCLEATED CELL COUNT 2982 /cu mm <=5 H (BEAKER) (test code = 1442) LINING CELLS/OTHERS DIFF'D 5 (BEAKER) (test code = 1589) ADJUSTED WBC FLUID (BEAKER) 2840 /cu mm <=5 H (test code = 1691) LINING CELLS/OTHERS, CALCULATED 142 /cu mm <=1 H (BEAKER) (test code = 1590) NEUTROPHILS FLUID (BEAKER) 9 % (test code = 1656) LYMPHS FLUID (BEAKER) (test 42 % code = 488) MONO/MACROPHAGE FLUID (BEAKER) 27 % (test code = 489) EOSINOPHILS FLUID (BEAKER) 22 % (test code = 491) BASO FLUID (BEAKER) (test code 0 % = 492) CONTAINER BODY FLUID (BEAKER) EDTA Tube (test code = 2873) U/S, [id number] 16:18:00SAURABH NICOLE MD Laterality?- >LeftLabs to be Ordered:->Body Fluid Culture (w/Gram Stain, C\\T\\S)AFB smear and culture Labs to be Ordered:->CytologyLabs to be Ordered:->Fungal CultureLabs to be Ordered:->Glucose+LDH+ProteinLabs to be Ordered:->Cell CountLabs to be Ordered:->Other (please add comment)Reason for Exam:- >recurrent [facility] 1965 Sex: FFINAL REPORT Ultrasound guided left thoracentesis. Clinical History: Left pleural effusion. Modality: Ultrasound. Sedation: None. Private Branch Exchange Repairer: Danuta Taylor PA-C Brick Stacker: None.Estimated Blood Loss: 1cc Specimen: 1100 cc of cloudy serosanguineous fluid. Technique: Informed consent was obtained. The risks of pain, bleeding, infection, lung collapse/pneumothorax, injury to adjac ent structures, and adverse medication reactions were discussed with the patient. The patient's lefthemithorax was scanned from the back, with the patient in a sitting position. After the largest fluid pocket area was marked, the skin was prepped and draped in the usual sterile manner. The area was an esthetized with 2% lidocaine, a 5 F one-step catheter was advanced into the pleural space under ultrasound guidance. After completion of drainage, the catheter was removed. There was no evidence of immediate complication. Post procedure chest x-ray is pending. Impression:Successful and uncomplicated ul trasound guided left thoracentesis. Signed: Lee Diazort Verified Date/Time: 02/04/2023 16:18:02 Reading Location: [address] Ultrasound Reading Room RAD, CHEST, 1 VIEW, NON [id number] 15:10:00RADHASAURABH MD Reason for exam:- >s/p left thoraShould this be performed at the bedside?->YesIn [facility] 1965 Sex: FFINAL REPORT Chest, 1 view, 02/04/2023 2:53 PM. History: Post left thoracentesis. Comparison: 01/21/2023. Discussion: The cardiomediastinal silhouette and pulmonary vasculature are withinnormal limits for a portable exam. The lungs are clear without evidence of consolidation or effusion. The soft tissues and osseous structures are intact. IMPRESSION: No evidence of complication post left thoracentesis. Signed: Chano Enriquez Verified Date/Time: 02/04/2023 15:10:45 CBC W/PLT COUNT & AUTO [id number] 16:57:36 Test Item Value Reference Range Interpretation Comments WHITE BLOOD CELL COUNT (BEAKER) 6.0 K/ L 3.5-10.5 (test code = 775) RED BLOOD CELL COUNT (BEAKER) 3.84 M/ L 3.93-5.22 L (test code = 761) HEMOGLOBIN (BEAKER) (test code = 13.3 GM/DL 11.2-15.7 410) HEMATOCRIT (BEAKER) (test code = 39.7 % 34.1-44.9 411) MEAN CORPUSCULAR VOLUME (BEAKER) 103 fL 79-95 H (test code = 753) MEAN CORPUSCULAR HEMOGLOBIN 34.6 pg 25.6-32.2 H (BEAKER) (test code = 751) MEAN CORPUSCULAR HEMOGLOBIN CONC 33.5 GM/DL 32.2-35.5 (BEAKER) (test code = 752) RED CELL DISTRIBUTION WIDTH 15.8 % 11.7-14.4 H (BEAKER) (test code = 412) PLATELET COUNT (BEAKER) (test code 83 K/CU MM 150-450 L = 756) MEAN PLATELET VOLUME (BEAKER) 10.7 fL 9.4-12.3 (test code = 754) NUCLEATED RED BLOOD CELLS (BEAKER) 0 /100 WBC 0-0 (test code = 413) NEUTROPHILS RELATIVE PERCENT 57 % (BEAKER) (test code = 429) LYMPHOCYTES RELATIVE PERCENT 23 % (BEAKER) (test code = 430) MONOCYTES RELATIVE PERCENT 12 % (BEAKER) (test code = 431) EOSINOPHILS RELATIVE PERCENT 7 % (BEAKER) (test code = 432) BASOPHILS RELATIVE PERCENT 1 % (BEAKER) (test code = 437) NEUTROPHILS ABSOLUTE COUNT 3.42 K/ L 1.56-6.13 (BEAKER) (test code = 670) LYMPHOCYTES ABSOLUTE COUNT 1.39 K/ L 1.18-3.74 (BEAKER) (test code = 414) MONOCYTES ABSOLUTE COUNT (BEAKER) 0.73 K/ L 0.24-0.36 H (test code = 415) EOSINOPHILS ABSOLUTE COUNT 0.44 K/ L 0.04-0.36 H (BEAKER) (test code = 416) BASOPHILS ABSOLUTE COUNT (BEAKER) 0.05 K/ L 0.01-0.08 (test code = 417) IMMATURE GRANULOCYTES-RELATIVE 0.20 % 0.00-1.00 PERCENT (BEAKER) (test code = 2801) HEPATIC FUNCTION [id number] 16:17:22 Test Item Value Reference Range Interpretation Comments TOTAL PROTEIN (BEAKER) (test code = 8.0 gm/dL 6.0-8.3 770) ALBUMIN (BEAKER) (test code = 1145) 2.7 g/dL 3.5-5.0 L BILIRUBIN TOTAL (BEAKER) (test code 2.2 mg/dL 0.2-1.2 H = 377) BILIRUBIN DIRECT (BEAKER) (test 0.9 mg/dL 0.1-0.5 H code = 706) ALKALINE PHOSPHATASE (BEAKER) (test 100 U/L 40-150 code = 346) AST (SGOT) (BEAKER) (test code = 69 U/L 5-34 H 353) ALT (SGPT) (BEAKER) (test code = 42 U/L 6-55 347) Vice President Of Development ID - BSSpecimen slightly ictericBASIC METABOLIC [id number] 16:17:21 Test Item Value Reference Range Interpretation Comments SODIUM (BEAKER) 138 meq/L 136-145 (test code = 381) POTASSIUM 4.0 meq/L 3.5-5.1 (BEAKER) (test code = 379) CHLORIDE (BEAKER) 106 meq/L 98-107 (test code = 382) CO2 (BEAKER) 24 meq/L 22-29 (test code = 355) BLOOD UREA 16 mg/dL 7-21 NITROGEN (BEAKER) (test code = 354) CREATININE 1.11 mg/dL 0.57-1.25 (BEAKER) (test code = 358) GLUCOSE RANDOM 97 mg/dL 70-105 (BEAKER) (test code = 652) CALCIUM (BEAKER) 8.4 mg/dL 8.4-10.2 (test code = 697) EGFR (BEAKER) 58 Interpretatio n of eGFR (test code = mL/min/1.73 values Stage De scription 1092) sq m Result G1 Norm al or high >=90 G2 Mildly decreased 60-89 G3a Mildl y to moderately 45-5 9 G3b Moderately to s everely 30-44 G4 Severl y decreased 15-29 G5 Kidney failure <15Reported eGF R is based on the CKD-EPI 2020 equation that d oes not use a race coefficientEsti mated GFR is not as accur ate as Creatinine Carol moiz in predicting glom erular filtration rate . Estimated GFR is not appl icable for dialysis patien ts Vice President Of Development ID - BSSpecimen slightly ictericPROTHROMBIN [id number] 16:05:29 Test Item Value Reference Range Interpretation Comments PROTIME (BEAKER) (test code = 18.5 seconds 11.9-14.2 H 759) INR (BEAKER) (test code = 370) 1.58 <=5.90 RECOMMENDED COUMADIN/WARFARIN INR THERAPY RANGESSTANDARD DOSE: 2.0 - 3.0 Includes: PROPHYLAXIS for venous thrombosis, systemic embolization; TREATMENT for venous thrombosis and/or pulmonary embolus.HIGH RISK: Target INR is 2.5-3.5 for patients with mechanical heart valves.BLOOD [id number] 16:00:58 Test Item Value Reference Range Interpretation Comments CULTURE (BEAKER) (test No growth in 5 days code = 1095) The specimen volume collected for this blood culture was below the optimum (10 mL per bottle or 20 mL total). Use of lower volumes may adversely affect recovery and/or detection times of some organisms.BLOOD [id number] 16:00:58 Test Item Value Reference Range Interpretation Comments CULTURE (BEAKER) (test No growth in 5 days code = 1095) The specimen volume collected for this blood culture was below the optimum (10 mL per bottle or 20 mL total). Use of lower volumes may adversely affect recovery and/or detection times of some organisms.[id number] 14:39:22 Medical Cytology Report Case: [id number] Authorizing Provider: Naheed Villalta MD Collected: 01/21/2023 08:44 AM Ordering Location: [address] Received: 01/21/2023 03:34 PM Service Pathologist: Hany Ferrer MD Specimen: Pleural, Left LEFT PLEURAL FLUID (CYTOSPINS AND CELL BLOCK): - NEGATIVE FOR MALIGNANCY BLOOD WITH REACTIVE MESOTHELIAL CELLS AND MIXED CHRONIC INFLAMMATORY CELLS Signing Pathologist Direct Phone Line: [phone] signed by Hany Ferrer MD on 01/24/2023 at 2:39 [id number] y.o. F with h/o HTN, asthma, decompensated BISHOP cirrhosis associated with esophageal varices, ascites, and hydrothorax, gallstones with previous admission 11/2022 for biliary obstruction s/p axios stent deemed not a surgical candidate for cholecystectomy, and later for fluid overload and had para and thora done with aggressive diuresis came to Er for similar complain od SOB andOSH CXR showed fluid in left pleural space.LEFT PLEURAL FLUIDA. Pleural, LeftReceived 1100 ml bloody gelatinous lupe fluid; prepared 4 cytospins and cell block(A2)- the cell block was fixed in formalin at 16:38 on 01/21/2023erformed.[facility], Department of Pathology, [address] [place] [id number], [facility], Department of Pathology, [address] [place] [id number], [facility], Department of Pathology, [address] [place] [id number], AEVL FLUID CULTURE + GRAM [id number] 14:24:35 Test Item Value Reference Range Interpretation Comments CULTURE (BEAKER) (test code = 1095) No growth CALCIUM, [id number] 05:18:15 Test Item Value Reference Range Interpretation Comments CALCIUM IONIZED (BEAKER) (test 1.08 mmol/L 1.12-1.27 L code = 698) PH, BLOOD (BEAKER) (test code = 7.45 1810) COMPREHENSIVE METABOLIC [id number] 04:54:27 Test Item Value Reference Range Interpretation Comments TOTAL PROTEIN 6.4 gm/dL 6.0-8.3 (BEAKER) (test code = 770) ALBUMIN (BEAKER) 2.3 g/dL 3.5-5.0 L (test code = 1145) ALKALINE 74 U/L 40-150 PHOSPHATASE (BEAKER) (test code = 346) BILIRUBIN TOTAL 2.1 mg/dL 0.2-1.2 H (BEAKER) (test code = 377) SODIUM (BEAKER) 134 meq/L 136-145 L (test code = 381) POTASSIUM (BEAKER) 3.4 meq/L 3.5-5.1 L (test code = 379) CHLORIDE (BEAKER) 103 meq/L 98-107 (test code = 382) CO2 (BEAKER) (test 24 meq/L 22-29 code = 355) BLOOD UREA 20 mg/dL 7-21 NITROGEN (BEAKER) (test code = 354) CREATININE 0.94 mg/dL 0.57-1.25 (BEAKER) (test code = 358) GLUCOSE RANDOM 80 mg/dL 70-105 (BEAKER) (test code = 652) CALCIUM (BEAKER) 7.9 mg/dL 8.4-10.2 L (test code = 697) AST (SGOT) 49 U/L 5-34 H (BEAKER) (test code = 353) ALT (SGPT) 32 U/L 6-55 (BEAKER) (test code = 347) EGFR (BEAKER) 70 Interpretatio n of eGFR (test code = 1092) mL/min/1.[address] age Description sq m Result G1 [place] l or high >=90 G2 Mildly decreased 60-89 G3a Mildl y to moderately 45-5 9 G3b Moderately to s everely 30-44 G4 Severl y decreased 15-29 G5 Kidney failure <15Reported eGF R is based on the CKD-EPI 2021 equation that d oes not use a race coefficientEsti mated GFR is not as accur ate as Creatinine Carol rockwell in predicting glom erular filtration rate . Estimated GFR is not appl icable for dialysis patien ts Vice President Of Development ID - ADMINSpecimen slightly [id number] 04:53:09 Test Item Value Reference Range Interpretation Comments PHOSPHORUS (BEAKER) (test code = 3.1 mg/dL 2.3-4.7 604) Vice President Of Development ID - [id number] 04:53:08 Test Item Value Reference Range Interpretation Comments MAGNESIUM (BEAKER) (test code = 1.8 mg/dL 1.6-2.6 627) Vice President Of Development ID - ADMINCBC W/PLT COUNT & AUTO [id number] 04:36:32 Test Item Value Reference Range Interpretation Comments WHITE BLOOD CELL COUNT (BEAKER) 5.6 K/ L 3.5-10.5 (test code = 775) RED BLOOD CELL COUNT (BEAKER) 3.22 M/ L 3.93-5.22 L (test code = 761) HEMOGLOBIN (BEAKER) (test code = 11.4 GM/DL 11.2-15.7 410) HEMATOCRIT (BEAKER) (test code = 33.0 % 34.1-44.9 L 411) MEAN CORPUSCULAR VOLUME (BEAKER) 103 fL 79-95 H (test code = 753) MEAN CORPUSCULAR HEMOGLOBIN 35.4 pg 25.6-32.2 H (BEAKER) (test code = 751) MEAN CORPUSCULAR HEMOGLOBIN CONC 34.5 GM/DL 32.2-35.5 (BEAKER) (test code = 752) RED CELL DISTRIBUTION WIDTH 15.3 % 11.7-14.4 H (BEAKER) (test code = 412) PLATELET COUNT (BEAKER) (test code 68 K/CU MM 150-450 L = 756) MEAN PLATELET VOLUME (BEAKER) 11.3 fL 9.4-12.3 (test code = 754) NUCLEATED RED BLOOD CELLS (BEAKER) 0 /100 WBC 0-0 (test code = 413) NEUTROPHILS RELATIVE PERCENT 48 % (BEAKER) (test code = 429) LYMPHOCYTES RELATIVE PERCENT 28 % (BEAKER) (test code = 430) MONOCYTES RELATIVE PERCENT 12 % (BEAKER) (test code = 431) EOSINOPHILS RELATIVE PERCENT 10 % (BEAKER) (test code = 432) BASOPHILS RELATIVE PERCENT 1 % (BEAKER) (test code = 437) NEUTROPHILS ABSOLUTE COUNT 2.65 K/ L 1.56-6.13 (BEAKER) (test code = 670) LYMPHOCYTES ABSOLUTE COUNT 1.57 K/ L 1.18-3.74 (BEAKER) (test code = 414) MONOCYTES ABSOLUTE COUNT (BEAKER) 0.69 K/ L 0.24-0.36 H (test code = 415) EOSINOPHILS ABSOLUTE COUNT 0.58 K/ L 0.04-0.36 H (BEAKER) (test code = 416) BASOPHILS ABSOLUTE COUNT (BEAKER) 0.06 K/ L 0.01-0.08 (test code = 417) IMMATURE GRANULOCYTES-RELATIVE 0.40 % 0.00-1.00 PERCENT (BEAKER) (test code = 2803) COMPREHENSIVE METABOLIC [id number] 04:44:22 Test Item Value Reference Range Interpretation Comments TOTAL PROTEIN 7.2 gm/dL 6.0-8.3 (BEAKER) (test code = 770) ALBUMIN (BEAKER) 2.6 g/dL 3.5-5.0 L (test code = 1145) ALKALINE 83 U/L 40-150 PHOSPHATASE (BEAKER) (test code = 346) BILIRUBIN TOTAL 2.5 mg/dL 0.2-1.2 H (BEAKER) (test code = 377) SODIUM (BEAKER) 133 meq/L 136-145 L (test code = 381) POTASSIUM (BEAKER) 3.7 meq/L 3.5-5.1 (test code = 379) CHLORIDE (BEAKER) 103 meq/L 98-107 (test code = 382) CO2 (BEAKER) (test 25 meq/L 22-29 code = 355) BLOOD UREA 18 mg/dL 7-21 NITROGEN (BEAKER) (test code = 354) CREATININE 0.91 mg/dL 0.57-1.25 (BEAKER) (test code = 358) GLUCOSE RANDOM 90 mg/dL 70-105 (BEAKER) (test code = 652) CALCIUM (BEAKER) 8.4 mg/dL 8.4-10.2 (test code = 697) AST (SGOT) 57 U/L 5-34 H (BEAKER) (test code = 353) ALT (SGPT) 35 U/L 6-55 (BEAKER) (test code = 347) EGFR (BEAKER) 73 Interpretatio n of eGFR (test code = 1092) mL/min/1.[address] age Description sq m Result G1 [place] l or high >=90 G2 Mildly decreased 60-89 G3a Mildl y to moderately 45-5 9 G3b Moderately to s everely 30-44 G4 Severl y decreased 15-29 G5 Kidney failure <15Reported eGF R is based on the CKD-EPI 2020 equation that d oes not use a race coefficientEsti mated GFR is not as accur ate as Creatinine Carol moiz in predicting glom erular filtration rate . Estimated GFR is not appl icable for dialysis patien ts Vice President Of Development ID - MMSpecimen slightly ictericCBC W/PLT COUNT & AUTO DIFFERENTIAL 2023-01-22 04:41:34 Test Item Value Reference Range Interpretation Comments WHITE BLOOD CELL COUNT 6.5 K/ L 3.5-10.5 (BEAKER) (test code = 775) RED BLOOD CELL COUNT 3.32 M/ L 3.93-5.22 L (BEAKER) (test code = 761) HEMOGLOBIN (BEAKER) 11.9 GM/DL 11.2-15.7 (test code = 410) HEMATOCRIT (BEAKER) 35.1 % 34.1-44.9 (test code = 411) MEAN CORPUSCULAR 106 fL 79-95 H Discordant results VOLUME (BEAKER) (test compar ed to previous code = 753) results; clinic al correlation req uired MEAN CORPUSCULAR 35.8 pg 25.6-32.2 H HEMOGLOBIN (BEAKER) (test code = 751) MEAN CORPUSCULAR 33.9 GM/DL 32.2-35.5 HEMOGLOBIN CONC (BEAKER) (test code = 752) RED CELL DISTRIBUTION 15.5 % 11.7-14.4 H WIDTH (BEAKER) (test code = 412) PLATELET COUNT 75 K/CU MM 150-450 L (BEAKER) (test code = 756) MEAN PLATELET VOLUME 10.5 fL 9.4-12.3 (BEAKER) (test code = 754) NUCLEATED RED BLOOD 0 /100 WBC 0-0 CELLS (BEAKER) (test code = 413) NEUTROPHILS RELATIVE 57 % PERCENT (BEAKER) (test code = 429) LYMPHOCYTES RELATIVE 20 % PERCENT (BEAKER) (test code = 430) MONOCYTES RELATIVE 13 % PERCENT (BEAKER) (test code = 431) EOSINOPHILS RELATIVE 9 % PERCENT (BEAKER) (test code = 432) BASOPHILS RELATIVE 1 % PERCENT (BEAKER) (test code = 437) NEUTROPHILS ABSOLUTE 3.73 K/ L 1.56-6.13 COUNT (BEAKER) (test code = 670) LYMPHOCYTES ABSOLUTE 1.28 K/ L 1.18-3.74 COUNT (BEAKER) (test code = 414) MONOCYTES ABSOLUTE 0.86 K/ L 0.24-0.36 H COUNT (BEAKER) (test code = 415) EOSINOPHILS ABSOLUTE 0.60 K/ L 0.04-0.36 H COUNT (BEAKER) (test code = 416) BASOPHILS ABSOLUTE 0.04 K/ L 0.01-0.08 COUNT (BEAKER) (test code = 417) IMMATURE 0.50 % 0.00-1.00 GRANULOCYTES-RELATIVE PERCENT (BEAKER) (test code = 2801) U/S, [id number] 18:07:00SAURABH NICOLE MD Laterality?- >Left Reason for exam:->SHORTNESS OF BREATH Reason for exam:->ABNORMAL IMAGING RESULT Labs to be Ordered:->Body Fluid Culture (w/Gram Stain, C\\T\\S) Labsto be Ordered:->Cytology Labs to be Ordered:->Glucose+LDH+Protein Labs to be Ordered:->CellCount [facility] 1965 Sex: FFINAL REPORT Ultrasound guided left-sided thoracentesis. Clinical History: Left pleural effusion. Modality: Ultrasound. Sedation: None. Private Branch Exchange Repairer: Carlos Ruelas PA-C Brick Stacker: None.Estimated Blood Loss: 1cc Specimen: 2450 cc of serosanguineous fluid. Technique: Informed consent was obtained. The risks of pain, bleeding, infection, lung collapse/pneumothorax, injury to adjacent structures, and adverse medication reactions were discussed with the patient. The patient's left hemithorax was scanned from the back, with the patient in a sitting position. After the largest fluid pocket area was marked, the skin was prepped and draped in the usual sterile manner. The area was anesthetized with 2% lidocaine, a 4F one-step catheter was advanced into the pleural space under ultrasound guidance. After completion of drainage, the catheter was removed. There was no evidence of immediate complication. Post procedure chest x-ray demonstrated no pneumothorax. Impression:Successful and uncomplicated ultrasound guided left-sided thoracentesis. Signed: Ken Sauer MDReport Verified Date/Time: 01/21/2023 18:07:57 Reading Location: [address] Ultrasound Reading Room BODY FLUID CELL COUNT WITH [id number] 16:39:03 Test Item Value Reference Range Interpretation Comments APPEARANCE FLUID (BEAKER) (test Cloudy Clear A code = 510) COLOR FLUID (BEAKER) (test code = Red Colorless, Straw A 511) RBC FLUID (BEAKER) (test code = 30 /cu mm <=1 H 513) TOTAL NUCLEATED CELL COUNT 51 /cu mm <=5 H (BEAKER) (test code = 1442) LINING CELLS/OTHERS DIFF'D 6 (BEAKER) (test code = 1589) ADJUSTED WBC FLUID (BEAKER) (test 48 /cu mm <=5 H code = 1691) LINING CELLS/OTHERS, CALCULATED 3 /cu mm <=1 H (BEAKER) (test code = 1590) NEUTROPHILS FLUID (BEAKER) (test 2 % code = 1656) LYMPHS FLUID (BEAKER) (test code = 82 % 488) MONO/MACROPHAGE FLUID (BEAKER) 13 % (test code = 489) EOSINOPHILS FLUID (BEAKER) (test 3 % code = 491) BASO FLUID (BEAKER) (test code = 0 % 492) CONTAINER BODY FLUID (BEAKER) EDTA Tube (test code = 2873) RAD, CHEST, 1 VIEW, NON [id number] 09:48:00SAURABH NICOLE MD Reason for exam:->s/p left thoracentesisShould this be performed [facility]?->[facility] : 1965 Sex: FFINAL REPORT Exam: RAD, CHEST, 1 VIEW, NON DEPTDate: 01/21/2023 9:47 AM Indication:s/p left thoracentesisComparison: Chest radiograph from yesterday. IMPRESSION: Lines/Tubes:None Lungs and Pleura : Decreased volume of left pleural fluid after thoracentesis. No pneumothorax. Lung volumesare low with scattered bronchovascular crowding. Heart/Mediastinum:The cardiomediastinal silhouette is normal in size and contour. Bones/Soft Tissues: No acute osseous abnormality. Upper abdomen: Unremarkable. Signed: Lee Diaz [facility] Verified Date/Time: 01/21/2023 09:48:04 [facility] METABOL[facility] [id number] 05:25:17 Test Item Value Reference Range Interpretation Comments TOTAL PROTEIN 6.6 gm/dL 6.0-8.3 (BEAKER) (test code = 770) ALBUMIN (BEAKER) 2.3 g/dL 3.5-5.0 L (test code = 1145) ALKALINE 76 U/L 40-150 PHOSPHATASE (BEAKER) (test code = 346) BILIRUBIN TOTAL 2.4 mg/dL 0.2-1.2 H (BEAKER) (test code = 377) SODIUM (BEAKER) 136 meq/L 136-145 (test code = 381) POTASSIUM (BEAKER) 3.5 meq/L 3.5-5.1 (test code = 379) CHLORIDE (BEAKER) 104 meq/L 98-107 (test code = 382) CO2 (BEAKER) (test 25 meq/L 22-29 code = 355) BLOOD UREA 20 mg/dL 7-21 NITROGEN (BEAKER) (test code = 354) CREATININE 0.93 mg/dL 0.57-1.25 (BEAKER) (test code = 358) GLUCOSE RANDOM 97 mg/dL 70-105 (BEAKER) (test code = 652) CALCIUM (BEAKER) 8.1 mg/dL 8.4-10.2 L (test code = 697) AST (SGOT) 54 U/L 5-34 H (BEAKER) (test code = 353) ALT (SGPT) 34 U/L 6-55 (BEAKER) (test code = 347) EGFR (BEAKER) 71 Interpretati on of eGFR (test code = 1092) mL/min/1.[address] age Description sq m Result G1 [place] l or high >=90 G2 Mildly decreased 60-89 G3a Mildl y to moderately 45-5 9 G3b Moderately to s everely 30-44 G4 Severl y decreased 15-29 G5 Kidney failure <15Reported eGF R is based on the CKD-EPI 2020 equation that d oes not use a race coefficientEsti mated GFR is not as accur ate as Creatinine Carol moiz in predicting glom erular filtration rate . Estimated GFR is not appl icable for dialysis patien ts Vice President Of Development ID - mmSpecimen slightly ictericLACTIC ACID, [id number] 05:14:06 Test Item Value Reference Range Interpretation Comments LACTATE BLOOD VENOUS (2) (BEAKER) 1.43 mmol/L 0.50-2.00 (test code = 2872) Vice President Of Development ID - mmSpecimen slightly ictericCBC (HEMOGRAM ONLY)2023-01-21 05:05:54 Test Item Value Reference Range Interpretation Comments WHITE BLOOD CELL COUNT (BEAKER) 6.5 K/ L 3.5-10.5 (test code = 775) RED BLOOD CELL COUNT (BEAKER) 3.23 M/ L 3.93-5.22 L (test code = 761) HEMOGLOBIN (BEAKER) (test code = 11.4 GM/DL 11.2-15.7 410) HEMATOCRIT (BEAKER) (test code = 33.0 % 34.1-44.9 L 411) MEAN CORPUSCULAR VOLUME (BEAKER) 102 fL 79-95 H (test code = 753) MEAN CORPUSCULAR HEMOGLOBIN 35.3 pg 25.6-32.2 H (BEAKER) (test code = 751) MEAN CORPUSCULAR HEMOGLOBIN CONC 34.5 GM/DL 32.2-35.5 (BEAKER) (test code = 752) RED CELL DISTRIBUTION WIDTH 15.9 % 11.7-14.4 H (BEAKER) (test code = 412) PLATELET COUNT (BEAKER) (test code 69 K/CU MM 150-450 L = 756) MEAN PLATELET VOLUME (BEAKER) 10.7 fL 9.4-12.3 (test code = 754) NUCLEATED RED BLOOD CELLS (BEAKER) 0 /100 WBC 0-0 (test code = 413) PROTHROMBIN [id number] 00:49:25 Test Item Value Reference Range Interpretation Comments PROTIME (BEAKER) (test code = 18.9 seconds 11.9-14.2 H 759) INR (BEAKER) (test code = 370) 1.63 <=5.90 RECOMMENDED COUMADIN/WARFARIN INR THERAPY RANGESSTANDARD DOSE: 2.0 - 3.0 Includes: PROPHYLAXIS for venous thrombosis, systemic embolization; TREATMENT for venous thrombosis and/or pulmonary embolus.HIGH RISK: Target INR is 2.5-3.5 for patients with mechanical heart valves.CT, CHEST WITH IV CONTRAST- PE TEST [id number] 17:44:00SAURABH NICOLE MD Unlisted Reason for Exam - Click Yes and Enter Reason Below->No [facility] : 1965 Sex: FFINAL REPORT TECHNIQUE: CT scan of the chest WITH intravenous contrast. Dose modulation, iterative reconstruction, and/or weight-based adjustment of the mA/kV was utilized to reduce theradiation dose to as low as reasonably achievable. Coronal and sagittal reformations were provided. MIP images were provided to better assess the vasculature. INDICATION: PE suspected, high prob COMPARISON: 12/30/2022 CT abdomen/pelvis. FINDINGS: LINES/TUBES: None. PULMONARY ARTERIES: Proximal to the bifurcation of the main pulmonary artery, the main pulmonary artery is 2.6 cm in diameter. No filling defects within the pulmonary arteries to suggest pulmonary embolus. LUNGS AND AIRWAYS: There is atelectasis of the left lung adjacent to the large left pleural effusion. No separate airspace consolidation. There is mosaic groundglass attenuation bilaterally. Tracheobronchial airways are clear. PLEURA: Large left pleural effusion and trace right pleural effusion. HEART AND MEDIASTINUM: The visualized thyroid gland is normal. There is slight deviation of the mediastinum to the right related to the large left pleural effusion No mediastinal, hilar, or axillary lymphadenopathy. Heart is unremarkable. Nopericardial effusion. SOFT TISSUES AND BONES: No acute osseous abnormality. No significant soft tissue finding. UPPER ABDOMEN: Cirrhotic liver with splenomegaly, moderate ascites, and gastroesophageal varices. IMPRESSION: 1. No pulmonary embolism. 2. Large left pleural effusion with adjacent atelectasis and trace right pleural effusion. 3. Mosaic groundglass attenuation of both lungs may be related to small airway disease or edema. 4. Cirrhosis with sequela of portal hypertension including moderate ascites, splenomegaly, and gastroesophageal varices. Signed: Erika Almazan MDReport Verified Date/Time: 01/20/2023 17:44:58 LACTIC ACID, [id number] 16:27:23 Test Item Value Reference Range Interpretation Comments LACTATE BLOOD VENOUS 2.52 mmol/L 0.50-2.00 H Specime n slightly (2) (BEAKER) (test hemolyzed code = 2872) Vice President Of Development ID - ADMINSpecimen slightly ictericRAD, CHEST, 1 VIEW, NON DEPT 2023-01-20 15:36:00SAURABH NICOLE MD Reason for exam:->SHORTNESS OF BREATHReason for exam:->ABNORMAL IMAGING RESULTShould this be performed at the bedside?->Yes [facility] : 1965 Sex: FFINAL REPORT INDICATION: SHORTNESS OF BREATHABNORMAL IMAGING RESULT COMPARISON: 12/30/2022 TECHNIQUE: Single frontal view of the chest. IMPRESSION: Lungs and pleura: Moderate left pleural effusion with adjacent left basilar airspace opacities similar to previous. Right lung is clear. Heart and mediastinum: Normal heart size. Unremarkable mediastinal contours. Osseous structures: No acute abnormality. Other: None. Signed: Erika Almazan MDRepnevada [facility] Verified Date/Time: 01/20/2023 15:36:18 HIGH SENSITIVITY TROPONIN [id number] 15:35:54 Test Item Value Reference Range Interpretation Comments HIGH SENSITIVITY TROPONIN I (test 8 pg/ml <=17 code = 5245988) Vice President Of Development ID - ADMINThe DIRECTOR OF PLACEMENT STAT High Sensitivity Troponin-I results should be used in conjunction with other diagnostic information such as ECG, clinical observations and information, and patientsymptoms to aid in the diagnosis of [place]. HCG, QUANTITATIVE, [id number] 15:35:54 Test Item Value Reference Range Interpretation Comments GONADOTROPIN, CHORIONIC (HCG) QUANT < mIU/mL 0-10 (BEAKER) (test code = 649) Non- Females: <10 mIU/mL Females: Gestation Age Reference Range(mIU/mL) 0.2-1 Week 5-50 1-2 Weeks 50-500 2-3 Weeks 100-5,000 3-4 Weeks 500-10,000 4-5 Weeks 1,000-50,000 5-6 Weeks 10,000-100,000 6-8 Weeks 15,000- 200,000 2-3 Months 10,000-100,000 Vice President Of Development ID - ADMINB-TYPE NATRIURETIC FACTOR (BNP)2023-01-20 15:33:30 Test Item Value Reference Range Interpretation Comments B-TYPE NATRIURETIC PEPTIDE (BEAKER) 11 pg/mL 0-100 (test code = 700) Vice President Of Development ID - ADMINCOMPREHENSIVE METABOLIC [id number] 15:29:09 Test Item Value Reference Range Interpretation Comments TOTAL PROTEIN 9.3 gm/dL 6.0-8.3 H Specimen marke dly (BEAKER) (test hemolyzed code = 770) ALBUMIN (BEAKER) 2.9 g/dL 3.5-5.0 L Specimen ma rkedly (test code = 1145) hemolyzed ALKALINE 96 U/L 40-150 PHOSPHATASE (BEAKER) (test code = 346) BILIRUBIN TOTAL 2.8 mg/dL 0.2-1.2 H Specimen mar kedly (BEAKER) (test hemolyzed code = 377) SODIUM (BEAKER) 131 meq/L 136-145 L (test code = 381) POTASSIUM (BEAKER) 5.1 meq/L 3.5-5.1 Specimen markedly (test code = 379) hemolyzed CHLORIDE (BEAKER) 101 meq/L 98-107 (test code = 382) CO2 (BEAKER) (test 21 meq/L 22-29 L code = 355) BLOOD UREA 23 mg/dL 7-21 H NITROGEN (BEAKER) (test code = 354) CREATININE 1.27 mg/dL 0.57-1.25 H Specimen marked ly (BEAKER) (test hemolyzed code = 358) GLUCOSE RANDOM 95 mg/dL 70-105 (BEAKER) (test code = 652) CALCIUM (BEAKER) 8.2 mg/dL 8.4-10.2 L (test code = 697) AST (SGOT) 100 U/L 5-34 H Specimen marked ly (BEAKER) (test hemolyzed code = 353) ALT (SGPT) 43 U/L 6-55 Specimen marked ly (BEAKER) (test hemolyzed code = 347) EGFR (BEAKER) 49 Interpretatio n of eGFR (test code = 1092) mL/min/1.[address] age Description sq m Result G1 [place] l or high >=90 G2 Mildly decreased 60-89 G3a Mildl y to moderately 45-5 9 G3b Moderately to s everely 30-44 G4 Severl y decreased 15-29 G5 Kidney failure <15Reported eGF R is based on the CKD-EPI 2020 equation that d oes not use a race coefficientEsti mated GFR is not as accur ate as Creatinine Carol rockwell in predicting glom erular filtration rate . Estimated GFR is not appl icable for dialysis patien ts Vice President Of Development ID - ADMINSpecimen slightly [id number] 15:29:09 Test Item Value Reference Range Interpretation Comments LIPASE (BEAKER) (test code = 749) 61 U/L 8-78 Vice President Of Development ID - ADMINSpecimen slightly [id number] 15:29:08 Test Item Value Reference Range Interpretation Comments MAGNESIUM (BEAKER) 1.9 mg/dL 1.6-2.6 Specimen markedly (test code = 627) hemolyzed Vice President Of Development ID - ADMINLACTIC ACID, [id number] 15:25:00 Test Item Value Reference Range Interpretation Comments LACTATE BLOOD VENOUS 3.00 mmol/L 0.50-2.00 H Specime n markedly (2) (BEAKER) (test hemolyzed code = 2872) Vice President Of Development ID - ADMINSpecimen slightly [id number] 15:17:14 Test Item Value Reference Range Interpretation Comments PARTIAL THROMBOPLASTIN TIME 29.9 seconds 22.5-36.0 (BEAKER) (test code = 760) PROTHROMBIN [id number] 15:16:12 Test Item Value Reference Range Interpretation Comments PROTIME (BEAKER) (test code = 18.8 seconds 11.9-14.2 H 759) INR (BEAKER) (test code = 370) 1.69 <=5.90 RECOMMENDED COUMADIN/WARFARIN INR THERAPY RANGESSTANDARD DOSE: 2.0 - 3.0 Includes: PROPHYLAXIS for venous thrombosis, systemic embolization; TREATMENT for venous thrombosis and/or pulmonary embolus.HIGH RISK: Target INR is 2.5-3.5 for patients with mechanical heart valves.CBC W/PLT COUNT & AUTO [id number] 15:12:40 Test Item Value Reference Range Interpretation Comments WHITE BLOOD CELL COUNT 7.2 K/ L 3.5-10.5 (BEAKER) (test code = 775) RED BLOOD CELL COUNT 3.80 M/ L 3.93-5.22 L (BEAKER) (test code = 761) HEMOGLOBIN (BEAKER) 13.5 GM/DL 11.2-15.7 (test code = 410) HEMATOCRIT (BEAKER) 39.5 % 34.1-44.9 (test code = 411) MEAN CORPUSCULAR VOLUME 104 fL 79-95 H (BEAKER) (test code = 753) MEAN CORPUSCULAR 35.5 pg 25.6-32.2 H HEMOGLOBIN (BEAKER) (test code = 751) MEAN CORPUSCULAR 34.2 GM/DL 32.2-35.5 HEMOGLOBIN CONC (BEAKER) (test code = 752) RED CELL DISTRIBUTION 16.2 % 11.7-14.4 H WIDTH (BEAKER) (test code = 412) PLATELET COUNT (BEAKER) 75 K/CU MM 150-450 L No c lumps or clots (test code = 756) in tube MEAN PLATELET VOLUME 13.0 fL 9.4-12.3 H (BEAKER) (test code = 754) NUCLEATED RED BLOOD 0 /100 WBC 0-0 CELLS (BEAKER) (test code = 413) NEUTROPHILS RELATIVE 64 % PERCENT (BEAKER) (test code = 429) LYMPHOCYTES RELATIVE 18 % PERCENT (BEAKER) (test code = 430) MONOCYTES RELATIVE 13 % PERCENT (BEAKER) (test code = 431) EOSINOPHILS RELATIVE 4 % PERCENT (BEAKER) (test code = 432) BASOPHILS RELATIVE 1 % PERCENT (BEAKER) (test code = 437) NEUTROPHILS ABSOLUTE 4.60 K/ L 1.56-6.13 COUNT (BEAKER) (test code = 670) LYMPHOCYTES ABSOLUTE 1.25 K/ L 1.18-3.74 COUNT (BEAKER) (test code = 414) MONOCYTES ABSOLUTE COUNT 0.92 K/ L 0.24-0.36 H (BEAKER) (test code = 415) EOSINOPHILS ABSOLUTE 0.31 K/ L 0.04-0.36 COUNT (BEAKER) (test code = 416) BASOPHILS ABSOLUTE COUNT 0.05 K/ L 0.01-0.08 (BEAKER) (test code = 417) IMMATURE 0.30 % 0.00-1.00 GRANULOCYTES-RELATIVE PERCENT (BEAKER) (test code = 2801) pH, body [id number] 02:37:54 Test Item Value Reference Range Interpretation Comments pH, Body Fluid 7.6 (test code = 5794-2) PH FLUID TYPE Body fluid Reference (test code = range:Reference 61060-7) ranges have not been established on thistype of flu id for this test. EDILBERTO (test code Performing Lab *CHRISTOPHER = EDILBERTO) [employer] [address] [place] [address] Stephane Jeffers MD, PhD [facility] [id number] 06:51:38 Test Item Value Reference Range Interpretation Comments TOTAL PROTEIN 5.5 gm/dL (BEAKER) (test code = 770) ALBUMIN (BEAKER) 2.2 g/dL (test code = 1145) ALKALINE PHOSPHATASE 76 U/L (BEAKER) (test code = 346) BILIRUBIN TOTAL 2.7 mg/dL 0.2-1.2 H (BEAKER) (test code = 377) SODIUM (BEAKER) (test 138 meq/L 136-145 code = 381) POTASSIUM (BEAKER) 3.6 meq/L 3.5-5.1 (test code = 379) CHLORIDE (BEAKER) 104 meq/L 98-107 (test code = 382) CO2 (BEAKER) (test 28 meq/L 22-29 code = 355) BLOOD UREA NITROGEN 14 mg/dL 7-21 (BEAKER) (test code = 354) CREATININE (BEAKER) 0.80 mg/dL 0.57-1.25 (test code = 358) GLUCOSE RANDOM 82 mg/dL 70-105 (BEAKER) (test code = 652) CALCIUM (BEAKER) 8.1 mg/dL (test code = 697) AST (SGOT) (BEAKER) 57 U/L 5-34 H (test code = 353) ALT (SGPT) (BEAKER) 32 U/L 6-55 (test code = 347) EGFR (BEAKER) (test INSUFFIC IENT CLINICAL code = 1092) DATA TO CALCULA TE ESTIMATED GFR. Vice President Of Development ID - MARCOSpecimen slightly c[id number] 06:11:49 Test Item Value Reference Range Interpretation Comments PHOSPHORUS (BEAKER) (test code = 3.6 mg/dL 2.3-4.7 604) Vice President Of Development ID - [id number] 06:11:48 Test Item Value Reference Range Interpretation Comments MAGNESIUM (BEAKER) (test code = 1.7 mg/dL 1.6-2.6 627) Vice President Of Development ID - MARCOCBC W/PLT COUNT & AUTO [id number] 05:40:48 Test Item Value Reference Range Interpretation Comments WHITE BLOOD CELL COUNT (BEAKER) 5.7 K/ L 4.0-10.0 (test code = 775) RED BLOOD CELL COUNT (BEAKER) 3.29 M/ L (test code = 761) HEMOGLOBIN (BEAKER) (test code = 11.6 GM/DL 410) HEMATOCRIT (BEAKER) (test code = 33.3 % 411) MEAN CORPUSCULAR VOLUME (BEAKER) 101 fL (test code = 753) MEAN CORPUSCULAR HEMOGLOBIN 35.3 pg 27.0-33.0 H (BEAKER) (test code = 751) MEAN CORPUSCULAR HEMOGLOBIN CONC 34.8 GM/DL (BEAKER) (test code = 752) RED CELL DISTRIBUTION WIDTH 17.2 % (BEAKER) (test code = 412) PLATELET COUNT (BEAKER) (test code 44 K/CU MM 150-430 L = 756) MEAN PLATELET VOLUME (BEAKER) 10.7 fL 6.5-10.5 H (test code = 754) NUCLEATED RED BLOOD CELLS (BEAKER) 0 /100 WBC 0-0 (test code = 413) NEUTROPHILS RELATIVE PERCENT 47 % (BEAKER) (test code = 429) LYMPHOCYTES RELATIVE PERCENT 28 % (BEAKER) (test code = 430) MONOCYTES RELATIVE PERCENT 16 % (BEAKER) (test code = 431) EOSINOPHILS RELATIVE PERCENT 8 % (BEAKER) (test code = 432) BASOPHILS RELATIVE PERCENT 0 % (BEAKER) (test code = 437) NEUTROPHILS ABSOLUTE COUNT 2.71 K/ L (BEAKER) (test code = 670) LYMPHOCYTES ABSOLUTE COUNT 1.58 K/ L 1.48-4.50 (BEAKER) (test code = 414) MONOCYTES ABSOLUTE COUNT (BEAKER) 0.91 K/ L 0.00-1.30 (test code = 415) EOSINOPHILS ABSOLUTE COUNT 0.46 K/ L 0.00-0.50 (BEAKER) (test code = 416) BASOPHILS ABSOLUTE COUNT (BEAKER) 0.02 K/ L 0.00-0.20 (test code = 417) IMMATURE GRANULOCYTES-RELATIVE 0.40 % 0.00-1.00 PERCENT (BEAKER) (test code = 2801) CALCIUM, [id number] 05:33:21 Test Item Value Reference Range Interpretation Comments CALCIUM IONIZED (BEAKER) (test 1.05 mmol/L 1.12-1.27 L code = 698) PH, BLOOD (BEAKER) (test code = 7.50 1810) BLOOD [id number] 00:01:46 Test Item Value Reference Range Interpretation Comments CULTURE (BEAKER) (test No growth in 5 days code = 1095) The specimen volume collected for this blood culture was below the optimum (10 mL per bottle or 20 mL total). Use of lower volumes may adversely affect recovery and/or detection times of some organisms.[id number] 19:31:37 Test Item Value Reference Range Interpretation Comments Case Report (test code Medical Cytology = 104) Report Case: [id number] Authorizing Provider: Marisabel Ho MD Collected: 12/30/2022 09:33 AM Ordering Location: [address] Received: 12/30/2022 01:05 PM Service Pathologist: Lilibeth Mello MD Specimen: Pleural, Left DIAGNOSIS (test code = f5lygNIeSFRbr4ymMEAuvO 3220) FuZzEwMzNcZnRuYmpcdWMx IHtccnRmMVxlcGljMTAyMD EsRK6xtFzdtRm2hQrhYLYx czQ6eNOvVWyvb7nlQWG2h9 ntmswpRLScJYjdSh7gpJFs tKtsPmMzPTIbJKq2hP17UL JnkS0yrRNmULv5RUGkuLHg lfSvYdLaDMJdbATdnVD2CR IgSN6gqtaeQJgrMFxqKGGp lhF2FAYzgKDiS4GuPTYgZY 7ebzslJEI4FVnbTBUlJWM6 VwTlEYSlf7Lccym3KlGakI FyZFxwbGFpblxmczIwIExF RlQgUExFVVJBTCBGTFVJRC NpE2eQO8FBRR4SGOWMBGYN YYuLQCJGX4PGKSjofSkkTR AgICAtICBORUdBVElWRSBG E3HjFDANRGzSIM2DWCodOP IgICAgLSAgQmVuaWduIGFu UUSwHBQxwJc7WBZeOXOibA cxwJqxxIGqKPtlqmVjLN6n nWPqBOeuzWrgJOB0vJUgNS 0eVUOqua9dhNPyaV4hfYGp aMX1vZ0cNHfbIIF4t8tsfI YxXHNzdGUxODAwMFxhbnNp AELlQvdxinbxFMCpPLZ6jy RzRBJyDBwpZNXlJTzoIb4q bMHvcWxfMdQkOFAug8upvx DPmqnpkBa6m4nwLKInBnY4 oZQlUXomD8ajlqSyfCJrRU UpKRg7mL86NYQrpS3knJBt DDonkuZnBpP1PQeiNQUnZh T5BMBviFWwKYQyV0pxLGJk VIvlSSOvELkmpMKcLLZ2fU hwj3W3oTYpsEMxnTphCwOu WrUsQqLFk2LcQRh5zEiaN6 TkPFJaOnD3iFNdWUQgLQfq NZIeCOHfumH1aR38QTncen O3mNKmu2Jkz23dh789lE6k yHCmKGD6MSTyLJWyxFZkRP OtRLL2YVTuwUQhG2wbBNOe OY4bygxwQZzhQJsfGPIdvC P0YEBlzQBtS0JuAXPxCBxu MMAoujk4OvMjPp6lvYActH tlCMjuy8xmz6tjmXUbAnx7 KXMjHxTiDopiIAkio7Ooe4 eiLEScin7gNXJ0zUIycXsd c6E8dLFaLAHgvOJgSHYfOE 0ecCUvTFSleW3xmqxrOSQf YnJkcmhlYWRccGdicmRyZm 2zfPmqZNR1PKjjA4xzsY1d DjP3KHwzY7mcfW4sACv8NG voFAAyeQM2izB1NAJxcMBg V1MtrP8cVRKeSJ1xzwv0t0 ioAYC8JEezADGdVeL6yiA5 NDBcaGVhZGVyeTcyMFxmb2 33EPS4IcPnBLRzp5LeC2Dj pUcuR17scUnmO60bOSHjtX xpjG5bfDrodC7vYeHyCoTn GHplcLxyKE5nAEPzQ7kinJ ZdRDDvODCmH0udNvAjkL2g nKohFAangxNdCEAkYcn4MB NrmUCuHXLtCmm8RAEmREOu F27gvzglAVE9dP4od6dsh1 JlHVdlPBY2KAQvi57jCUuw bnL6ZZlzJz69AMxyLLR2MF pccGFyfX0= CPT Code(s) (test code h8iizJQqHPYpvKPgVFKlWO = 3357) kgmpNuTCPazBZcR4Atbwdd LJeuNH6oGN1tpJiunGFieQ UlZVRmGwQhf0qpe672gEAb r8xmXJWMmnomyHw9zXesS0 9cl6P1TvnhK28zzAHzJQR8 YMKbLQZydZJrXCKoFYZ6TY CuiKAmP8ucGZRwIF8qjrjn TCowCFjcEISgzMQ5KPSkaQ SqJ5UqSLChVJqeGQIbgwi5 LvKgMv6msDVlwXfqBQzkYK JkXHBsYWluXGZzMjAgODgx IJysWOz0TnB4NXCqyt5= CLINICAL DATA (test x0hyoWIiQXNffXGyHLJaLQ code = 3355) ogcdWxVWLycNYaI7Mcrsdg IJvlWE0eDA1vlQlpnYZufL VxOQCvLkPig5smz273qIJi a2atTYVHsxjplSz8wKifW3 8tb6O3DkdhH73siPQoYRU6 URNyPWInqADoNDTvGJH2MG MujIJuI9ipMYFeCK5azyka ABtsKTaqQFOryMA9SXEuvS WgR7IxZGTnFFlcHJBpitm1 SzJqDu4axAXjlVjwQPhlGK JkXHBsYWluXGZzMjAgNTgg dG8xUuz+Rlx+z8g6wMEwG5 0gALBss46oYN2xRWKeNKDM TWCYAOCkhxRnw6VuflSnM2 RmHSHjbXqgC3AimQK4QTXf L1SxQVIft5PbgSOdYNEpvh YkzLprjx53xG7lCUtbZP6m YNcya7DidkHzPMqheUgicn LhIS85SBDtzBmoo6toftTd DpFbQgAsWe9zAFNomSiriw ccl6QhzUL0F4Sej55hrn3t WPS1jM9wXAE7ST30BUGdNJ 1dBXCkt2AeUWDuyOEbeWYa jQCzNV1ifXLksONyPb2iGE Oeh0rrW5kyvVIjxT9anAhf ecpFRljaYX4fGYOqxMcwQR L9gtKxt6OyehXuVGHkij7m WI59aOKwJOMaAVWaXl6lVC B7BGe0LERip60jDK6gEOMr SEC8fPLamQIiKyGnSbShxD nxCSmghSUgflzmio7xcZ4l DD92PVBur2OuBKNnejJwb5 wcctWvNSGhKT7lVBZqUSH1 lO3mmOKgaH== SPECIMEN SOURCE (test y7engNDkOMPcdYJiLBUeNV code = 3377) rtjoRdQXVctECzB6Voymar WNztLH9sOA5tuXqjvUOlsD FqXWFiMgVfv4puz844jETz p8azKXDFyxjpoCp6tCxzA8 6io7A4WaeuA03gnNKpBXQ4 FDXlYOTyxZTdEJOvIZO0WC VopKAzX8usVUUwCM8hosya WWseMWbfHBScwOQ7KJGydS NvZ1OjTLUgORswGXEtjrb0 ArAeDo4qfJNybJmePTovWQ JkXHBsYWluXGZzMjAgTEVG VCBQTEVVUkFMIEZMVUlEXH Bhcn0= GROSS DESCRIPTION (test u6tbmAWbVWZviDKbEWFrJM code = 8954650288) vmvqKbDTRczHAjB1Fvstew LIwqSQ1vLB8osPrscFFzcH JkLYJhXlBvw4uuh877fKVz x4imTCOUvpywjMb8bMolS1 3vn1G0WzmfY34ozYNcWKZ6 FBDuFJRyfPHjZZZnQXP1PJ DyhOXpP2swOIEvSJ6hnrsg YAlvXYgrSLTyaIW6UDUixG CeL4BkQDNkNTnlLICjcnu7 UeGnOi1yjNHddDaoMJwvUs ykzYlir4OzmEIbGRisOFJo FRSkJSltMCQnG1VPJIWfAP M0Zpx3ZrXsVcHORLZ6ChAs QgzxKDJZFAUhAMt7PaR7JV t7WfYWWrRqPJLuTXQcXYVq EZDhBY7iOBpkbIUgHInlCq hqEDerI187RKcsZYEtW3Xf X4GbZMbyGAJ5WFMfFxCpMM UgWJ2BCgHyTIebYPD9ZUXf JUy8IVu9EX2DMdBhDZBmTa mtQPf0CDSxAIx6DDndIJ6J IMpuEYr3Qtx8QfZ8YOz5Pw BcXHQgMiBcXHNzIDMgXFxm iXFdDB7vrJkqGTGuDGQfMY htNRVaWpHvTY7xZUtzxDQp bCwgTGVmdFxwYXJccGFyZF ssMmCiSFXneZEEy3IvDEbz XLJyOZSocNYMo2AeWNxrkC DgsijirxTeGADtD5JbmuAk FHFuQHGrkTzeAIVsl71usG BmbHVpZDsgcHJlcGFyZWQg IYCqhRHbh0ElasEjGF2rIG WwnFvoPefiA8pqCAEyTKZf jSchFVwixdJjJNzeIB7zqD wiPRAilAdzIimdP2yae4Rs KYLfmQRvDNzdFPYsoh0rgI hsQLT0KZVoHmZvWU6jEFB1 YtSoPaOlJfRkk1synFnzz4 ZzdNJgED11IBWgqLFcPYN1 VU3gbSeaFYC0 MICROSCOPIC DESCRIPTION g1wjuQTjCTLtcMVxGVZjAI (test code = 3371) tovvMbYXMicTZxJ1Nxwbmu YLngCA5mAY1wnNgzyZQleU EuOPQmSmDqn6bnj015eFRj r2qpFYOLasrxnJc2eDciU6 1uf7X9UmnhS88spYHxOIB1 UFUlLOGihERcIYKqTCZ5EF MqwZWgV0svSIJbTK0tijhb QSzgNZuyDXPlvGD6IGAhqX IsN9KaDEAvCLatPKMfpbo0 HzTtOg0stMLtlRkkGKhoVG JkXHBsYWluXGZzMjAgUGVy Tm0myIMlCckiCHAobUOiVN xwYXJ9 STATEMENT OF ADEQUACY Satisfactory (test code = 2757) Gross assessment was [facility] performed at (test code Medical Center, = 2777) Department of Pathology, [address] [place] [address], [facility] [place] [address], Technical component was [facility] performed at ([facility], = 2778) Department of Pathology, [address] [place] [address], Professional component [facility] was performed at ([facility], code = 2779) Department of Pathology, [address] [place] [address], [facility] 19:31:37Medical Cytology Report Case: [id number] Authorizing Provider: Marisabel Ho MD Collected: 09:33 AM Ordering Location: [address] Received: 12/30/2022 01:05 PM Service Pathologist: Lilibeth Mello MD Specimen: Pleural, Left LEFT PLEURAL FLUID (CYTOSPINS AND CELL BLOCK): - NEGATIVE FOR MALIGNANCY - Benign and reactive mesothelial cells admixed with acute and chronic inflammation Signing Pathologist Direct Phone Line: [phone] signed by Lilibeth Mello MD on 01/03/2023 at 7:31 [id number], [id number] y.o. F with h/o decompensated BISHOP cirrhosis c/b esophageal varices, ascites, and hydrothorax, gallstones with recent admission 11/2022 for biliary obstruction s/paxios stent deemed not a surgical candidate for cholecystectomy, HTN, and asthma transferred from outside ER for evaluation and treatment of abdominal pain, volume overload, and shortness of breath.LEFT PLEURAL FLUIDA. Pleural, LeftReceived 1000 mls bloody fluid; prepared 4 cytospins and cell block(A2)(collodion bag) - the cell block was fixed in formalin at 13:50 on 12/30/2022 Performed.[facility], [facility] of [facility]ology, [address] [place] [address], [facility], Department of Pathology, [address] [place] [address], [facility], Department of Pathology, [address] [place] [address], WYLSZJKSKEUPT METABOLIC [id number] 07:49:18 Test Item Value Reference Range Interpretation Comments TOTAL PROTEIN 5.5 gm/dL (BEAKER) (test code = 770) ALBUMIN (BEAKER) 2.3 g/dL (test code = 1145) ALKALINE PHOSPHATASE 77 U/L (BEAKER) (test code = 346) BILIRUBIN TOTAL 2.9 mg/dL 0.2-1.2 H (BEAKER) (test code = 377) SODIUM (BEAKER) (test 140 meq/L 136-145 code = 381) POTASSIUM (BEAKER) 3.6 meq/L 3.5-5.1 (test code = 379) CHLORIDE (BEAKER) 108 meq/L 98-107 H (test code = 382) CO2 (BEAKER) (test 26 meq/L 22-29 code = 355) BLOOD UREA NITROGEN 14 mg/dL 7-21 (BEAKER) (test code = 354) CREATININE (BEAKER) 0.82 mg/dL 0.57-1.25 (test code = 358) GLUCOSE RANDOM 92 mg/dL 70-105 (BEAKER) (test code = 652) CALCIUM (BEAKER) 8.0 mg/dL (test code = 697) AST (SGOT) (BEAKER) 55 U/L 5-34 H (test code = 353) ALT (SGPT) (BEAKER) 31 U/L 6-55 (test code = 347) EGFR (BEAKER) (test INSUFFIC IENT CLINICAL code = 1092) DATA TO CALCULA TE ESTIMATED GFR. Vice President Of Development ID - DBOperator ID - MARIOSpecimen slightly [id number] 07:48:02 Test Item Value Reference Range Interpretation Comments MAGNESIUM (BEAKER) (test code = 1.7 mg/dL 1.6-2.6 627) Vice President Of Development ID - DBOperator ID - MARIOCOMPREHENSIVE METABOLIC [id number] 06:48:02 Test Item Value Reference Range Interpretation Comments TOTAL PROTEIN 5.4 gm/dL (BEAKER) (test code = 770) ALBUMIN (BEAKER) 2.3 g/dL (test code = 1145) ALKALINE PHOSPHATASE 81 U/L (BEAKER) (test code = 346) BILIRUBIN TOTAL 2.6 mg/dL 0.2-1.2 H (BEAKER) (test code = 377) SODIUM (BEAKER) (test 137 meq/L 136-145 code = 381) POTASSIUM (BEAKER) 3.9 meq/L 3.5-5.1 (test code = 379) CHLORIDE (BEAKER) 108 meq/L 98-107 H (test code = 382) CO2 (BEAKER) (test 23 meq/L 22-29 code = 355) BLOOD UREA NITROGEN 15 mg/dL 7-21 (BEAKER) (test code = 354) CREATININE (BEAKER) 0.88 mg/dL 0.57-1.25 (test code = 358) GLUCOSE RANDOM 88 mg/dL 70-105 (BEAKER) (test code = 652) CALCIUM (BEAKER) 7.8 mg/dL (test code = 697) AST (SGOT) (BEAKER) 56 U/L 5-34 H (test code = 353) ALT (SGPT) (BEAKER) 32 U/L 6-55 (test code = 347) EGFR (BEAKER) (test INSUFFIC IENT CLINICAL code = 1092) DATA TO CALCULA TE ESTIMATED GFR. Vice President Of Development ID - HENRIQUE GSpecimen slightly [id number] 06:47:07 Test Item Value Reference Range Interpretation Comments MAGNESIUM (BEAKER) (test code = 1.8 mg/dL 1.6-2.6 627) Vice President Of Development ID - HENRIQUE GBody fluid culture + gram [id number] 17:31:13 Test Item Value Reference Range Interpretation Comments Result (test code = 6463-4) No growth Lab Interpretation (test code = Normal 98924-7) [facility] Hospital[facility] FLUID [facility] + GRAM [id number] 17:31:13 Test Item Value Reference Range Interpretation Comments CULTURE (BEAKER) (test code = 1095) No growth BODY FLUID CULTURE + GRAM [id number] 17:31:13 Test Item Value Reference Range Interpretation Comments CULTURE (BEAKER) (test code = 1095) No growth COMPREHENSIVE METABOLIC [id number] 06:01:19 Test Item Value Reference Range Interpretation Comments TOTAL PROTEIN 5.6 gm/dL (BEAKER) (test code = 770) ALBUMIN (BEAKER) 2.4 g/dL (test code = 1145) ALKALINE PHOSPHATASE 81 U/L (BEAKER) (test code = 346) BILIRUBIN TOTAL 2.4 mg/dL 0.2-1.2 H (BEAKER) (test code = 377) SODIUM (BEAKER) (test 133 meq/L 136-145 L code = 381) POTASSIUM (BEAKER) 3.6 meq/L 3.5-5.1 (test code = 379) CHLORIDE (BEAKER) 103 meq/L 98-107 (test code = 382) CO2 (BEAKER) (test 25 meq/L 22-29 code = 355) BLOOD UREA NITROGEN 17 mg/dL 7-21 (BEAKER) (test code = 354) CREATININE (BEAKER) 0.93 mg/dL 0.57-1.25 (test code = 358) GLUCOSE RANDOM 84 mg/dL 70-105 (BEAKER) (test code = 652) CALCIUM (BEAKER) 7.4 mg/dL (test code = 697) AST (SGOT) (BEAKER) 51 U/L 5-34 H (test code = 353) ALT (SGPT) (BEAKER) 29 U/L 6-55 (test code = 347) EGFR (BEAKER) (test INSUFFIC IENT CLINICAL code = 1092) DATA TO CALCULA TE ESTIMATED GFR. Vice President Of Development ID - ADMINSpecimen slightly ictericCALCIUM, [id number] 05:59:45 Test Item Value Reference Range Interpretation Comments CALCIUM IONIZED (BEAKER) (test 1.04 mmol/L 1.12-1.27 L code = 698) PH, BLOOD (BEAKER) (test code = 7.44 1810) [id number] 05:59:10 Test Item Value Reference Range Interpretation Comments MAGNESIUM (BEAKER) (test code = 1.9 mg/dL 1.6-2.6 627) Vice President Of Development ID - [id number] 05:59:10 Test Item Value Reference Range Interpretation Comments PHOSPHORUS (BEAKER) (test code = 2.6 mg/dL 2.3-4.7 604) Vice President Of Development ID - ADMINPROTHROMBIN TIME/[id number] 05:38:46 Test Item Value Reference Range Interpretation Comments PROTIME (BEAKER) (test code = 25.2 seconds 11.9-14.2 H 759) INR (BEAKER) (test code = 370) 2.47 <=5.90 RECOMMENDED COUMADIN/WARFARIN INR THERAPY RANGESSTANDARD DOSE: 2.0 - 3.0 Includes: PROPHYLAXIS for venous thrombosis, systemic embolization; TREATMENT for venous thrombosis and/or pulmonary embolus.HIGH RISK: Target INR is 2.5-3.5 for patients with mechanical heart valves.CBC W/PLT COUNT & AUTO [id number] 05:34:48 Test Item Value Reference Range Interpretation Comments WHITE BLOOD CELL COUNT (BEAKER) 6.1 K/ L 4.0-10.0 (test code = 775) RED BLOOD CELL COUNT (BEAKER) 3.21 M/ L (test code = 761) HEMOGLOBIN (BEAKER) (test code = 11.2 GM/DL 410) HEMATOCRIT (BEAKER) (test code = 32.6 % 411) MEAN CORPUSCULAR VOLUME (BEAKER) 102 fL (test code = 753) MEAN CORPUSCULAR HEMOGLOBIN 34.9 pg 27.0-33.0 H (BEAKER) (test code = 751) MEAN CORPUSCULAR HEMOGLOBIN CONC 34.4 GM/DL (BEAKER) (test code = 752) RED CELL DISTRIBUTION WIDTH 17.1 % (BEAKER) (test code = 412) PLATELET COUNT (BEAKER) (test code 38 K/CU MM 150-430 L = 756) MEAN PLATELET VOLUME (BEAKER) 11.5 fL 6.5-10.5 H (test code = 754) NUCLEATED RED BLOOD CELLS (BEAKER) 0 /100 WBC 0-0 (test code = 413) NEUTROPHILS RELATIVE PERCENT 52 % (BEAKER) (test code = 429) LYMPHOCYTES RELATIVE PERCENT 23 % (BEAKER) (test code = 430) MONOCYTES RELATIVE PERCENT 18 % (BEAKER) (test code = 431) EOSINOPHILS RELATIVE PERCENT 6 % (BEAKER) (test code = 432) BASOPHILS RELATIVE PERCENT 1 % (BEAKER) (test code = 437) NEUTROPHILS ABSOLUTE COUNT 3.16 K/ L (BEAKER) (test code = 670) LYMPHOCYTES ABSOLUTE COUNT 1.41 K/ L 1.48-4.50 L (BEAKER) (test code = 414) MONOCYTES ABSOLUTE COUNT (BEAKER) 1.10 K/ L 0.00-1.30 (test code = 415) EOSINOPHILS ABSOLUTE COUNT 0.37 K/ L 0.00-0.50 (BEAKER) (test code = 416) BASOPHILS ABSOLUTE COUNT (BEAKER) 0.04 K/ L 0.00-0.20 (test code = 417) IMMATURE GRANULOCYTES-RELATIVE 0.20 % 0.00-1.00 PERCENT (BEAKER) (test code = 2801) 2D Echo W/Doppler(CW/PW/Color)2022-12-31 17:29:02Ejection FractionSLEH ECHO HEARTLAB MKCKESSON [facility] HospitalANA [facility] AND PATTERN 2022-12-31 12:46:54 Test Item Value Reference Range Interpretation Comments EMORY TITER (BEAKER) (test code = :160 1541) EMORY PATTERN (BEAKER) (test code = Homogeneous 1781) ANTI-NUCLEAR ANTIBODY (EMORY)2022-12-31 12:46:31 Test Item Value Reference Range Interpretation Comments ANTI-NUCLEAR ANTIBODY (EMORY) (BEAKER) Positive Negative A (test code = 418) Test performed by IFA method.MISCELLANEOUS LAB [id number] 09:11:47 Test Item Value Reference Range Interpretation Comments SCAN RESULT (test code = SEE SCANNED RESULTS 0733107) Protein, Total, Peritoneal [id number] 08:59:02PROTEIN, TOTAL, PERITONEAL FLUID12/31/2022 8:59 AM [email or web address] DIAGNOSTIC [facility] HospitalAlbumin, body [id number] 08:58:38Albumin, Fluid12/31/2022 8:58 AM CDTSCOVINGTON COUNTY HOSPITALR [facility] LABORATORYReference Range: No Normals Assay performance has not been validated for this type of specimen.[facility] HospitalProtein, Total, Pleural [id number] 08:56:30PROTEIN, TOTAL, PLEURAL FLUID12/31/2022 8:56 AM CDTQUEST DIAGNOSTIC [facility] HospitalLactate Dehydrogenase (LD), Pleural [id number] 08:56:06Lactate Dehydrogenase (LD), Pleural Fluid12/31/2022 8:56 AM CDTQUEST DIAGNOSTIC [facility] HospitalGlucose Pleural [id number] 08:55:45Glucose, Pleural Fluid 12/31/2022 8:55 AM [email or web address] DIAGNOSTIC [facility] Albumin Pleural [id number] 08:54:47Albumin, Pleural Fluid12/31/2022 8:54 AM CDTQUEST DIAGNOSTIC [facility]PORATEDSc[facility] HospitalMISCELLANEOUS LAB [id number] 08:54:04 Test Item Value Reference Range Interpretation Comments SCAN RESULT (test code = SEE SCANNED RESULTS [id number]) Bilirubin, [id number] 08:54:04Scan Qkrzql6812/31/2022 8:54 AM CDTCHI [facility]roeCOMPREHENSIVE METABOLIC [id number] 05:33:20 Test Item Value Reference Range Interpretation Comments TOTAL PROTEIN 5.6 gm/dL (BEAKER) (test code = 770) ALBUMIN (BEAKER) 2.7 g/dL (test code = 1145) ALKALINE PHOSPHATASE 76 U/L (BEAKER) (test code = 346) BILIRUBIN TOTAL 3.5 mg/dL 0.2-1.2 H (BEAKER) (test code = 377) SODIUM (BEAKER) (test 135 meq/L 136-145 L code = 381) POTASSIUM (BEAKER) 3.8 meq/L 3.5-5.1 (test code = 379) CHLORIDE (BEAKER) 104 meq/L 98-107 (test code = 382) CO2 (BEAKER) (test 25 meq/L 22-29 code = 355) BLOOD UREA NITROGEN 20 mg/dL 7-21 (BEAKER) (test code = 354) CREATININE (BEAKER) 1.03 mg/dL 0.57-1.25 (test code = 358) GLUCOSE RANDOM 88 mg/dL 70-105 (BEAKER) (test code = 652) CALCIUM (BEAKER) 7.9 mg/dL (test code = 697) AST (SGOT) (BEAKER) 53 U/L 5-34 H (test code = 353) ALT (SGPT) (BEAKER) 32 U/L 6-55 (test code = 347) EGFR (BEAKER) (test INSUFFIC IENT CLINICAL code = 1092) DATA TO CALCULA TE ESTIMATED GFR. Vice President Of Development ID - marioSpecimen slightly [id number] 05:31:31 Test Item Value Reference Range Interpretation Comments MAGNESIUM (BEAKER) (test code = 1.8 mg/dL 1.6-2.6 627) Vice President Of Development ID - [id number] 05:31:31 Test Item Value Reference Range Interpretation Comments PHOSPHORUS (BEAKER) (test code = 2.4 mg/dL 2.3-4.7 604) Vice President Of Development ID - marioPROTHROMBIN TIME/[id number] 05:24:04 Test Item Value Reference Range Interpretation Comments PROTIME (BEAKER) (test code = 25.5 seconds 11.9-14.2 H 759) INR (BEAKER) (test code = 370) 2.40 <=5.90 RECOMMENDED COUMADIN/WARFARIN INR THERAPY RANGESSTANDARD DOSE: 2.0 - 3.0 Includes: PROPHYLAXIS for venous thrombosis, systemic embolization; TREATMENT for venous thrombosis and/or pulmonary embolus.HIGH RISK: Target INR is 2.5-3.5 for patients with mechanical heart valves.CBC W/PLT COUNT & AUTO [id number] 05:23:22 Test Item Value Reference Range Interpretation Comments WHITE BLOOD CELL COUNT (BEAKER) 6.1 K/ L 4.0-10.0 (test code = 775) RED BLOOD CELL COUNT (BEAKER) 3.02 M/ L (test code = 761) HEMOGLOBIN (BEAKER) (test code = 10.6 GM/DL 410) HEMATOCRIT (BEAKER) (test code = 31.2 % 411) MEAN CORPUSCULAR VOLUME (BEAKER) 103 fL (test code = 753) MEAN CORPUSCULAR HEMOGLOBIN 35.1 pg 27.0-33.0 H (BEAKER) (test code = 751) MEAN CORPUSCULAR HEMOGLOBIN CONC 34.0 GM/DL (BEAKER) (test code = 752) RED CELL DISTRIBUTION WIDTH 17.4 % (BEAKER) (test code = 412) PLATELET COUNT (BEAKER) (test code 36 K/CU MM 150-430 L = 756) MEAN PLATELET VOLUME (BEAKER) 10.8 fL 6.5-10.5 H (test code = 754) NUCLEATED RED BLOOD CELLS (BEAKER) 0 /100 WBC 0-0 (test code = 413) NEUTROPHILS RELATIVE PERCENT 55 % (BEAKER) (test code = 429) LYMPHOCYTES RELATIVE PERCENT 23 % (BEAKER) (test code = 430) MONOCYTES RELATIVE PERCENT 17 % (BEAKER) (test code = 431) EOSINOPHILS RELATIVE PERCENT 5 % (BEAKER) (test code = 432) BASOPHILS RELATIVE PERCENT 1 % (BEAKER) (test code = 437) NEUTROPHILS ABSOLUTE COUNT 3.32 K/ L (BEAKER) (test code = 670) LYMPHOCYTES ABSOLUTE COUNT 1.41 K/ L 1.48-4.50 L (BEAKER) (test code = 414) MONOCYTES ABSOLUTE COUNT (BEAKER) 1.00 K/ L 0.00-1.30 (test code = 415) EOSINOPHILS ABSOLUTE COUNT 0.29 K/ L 0.00-0.50 (BEAKER) (test code = 416) BASOPHILS ABSOLUTE COUNT (BEAKER) 0.03 K/ L 0.00-0.20 (test code = 417) IMMATURE GRANULOCYTES-RELATIVE 0.20 % 0.00-1.00 PERCENT (BEAKER) (test code = 2801) CALCIUM, [id number] 05:07:52 Test Item Value Reference Range Interpretation Comments CALCIUM IONIZED (BEAKER) (test 1.05 mmol/L 1.12-1.27 L code = 698) PH, BLOOD (BEAKER) (test code = 7.45 1810) Amylase Peritoneal [id number] 18:35:20 Test Item Value Reference Range Interpretation Comments AMYLASE, PERITONEAL 17 FLUID (test code = 1797-0) EDILBERTO (test code = Amylase activity in EDILBERTO) peritoneal fluids of non-pancreatic origin is often less than or equal to the amylase activity in blood, whereas elevated amylase activity has been reported in fluid of pancreatic origin (five-folds or higher compared to contemporaneously collected blood specimen).This test has been modified from the information security engineer's instructions and its performance characteristics were determined by [facility]. The laboratory is regulated under CLIA as qualified to perform high-complexity testing. This test has not been cleared or approved by the U.S. Food and Drug Administration. The reference intervals and other method performance specifications are unavailable for amylase in peritoneal fluid. Comparison of this result with the blood amylase is recommended. [facility] HospitalAMYL[facility] PERITONEAL [id number] 18:35:20 Test Item Value Reference Range Interpretation Comments AMYLASE, PERITONEAL FLUID (BEAKER) 17 (test code = 4530887) Amylase activity in peritoneal fluids of non-pancreatic origin is often less than or equal to the amylase activity in blood, whereas elevated amylase activity has been reported in fluid of pancreatic origin (five-folds or higher compared to contemporaneously collected blood specimen).This test has been modified from the information security engineer's instructions and its performance characteristics were determined by [facility]. The laboratory is regulated under CLIA as qualified to perform high-complexity testing. This test has not been cleared or approved by the U.S. Food and Drug Administration. The reference intervals and other method performance specifications are unavailable for amylase in peritoneal fluid. Comparison of this result with the blood amylase is recommended.[id number] 18:13:56 Test Item Value Reference Range Interpretation Comments FERRITIN (BEAKER) (test code = 273.41 ng/mL 361) Vice President Of Development ID - ADMINHEPATITIS B SURFACE [id number] 17:41:49 Test Item Value Reference Range Interpretation Comments HEPATITIS B SURFACE ANTIBODY < mIU/mL <8.0 (BEAKER) (test code = 647) Vice President Of Development ID - ADMINHEPATITIS A ANTIBODY, [id number] 17:41:49 Test Item Value Reference Range Interpretation Comments HEPATITIS A IGG ANTIBODY (BEAKER) Reactive Nonreactive A (test code = 2797) Vice President Of Development ID - ADMINALPHA FETOPROTEIN (AFP), TUMOR [id number] 17:40:44 Test Item Value Reference Range Interpretation Comments ALPHA-FETOPROTEIN (BEAKER) (test 3.2 ng/mL <10.0 code = 1094) Vice President Of Development ID - ADMINHEPATITIS B CORE ANTIBODY, [id number] 17:40:44 Test Item Value Reference Range Interpretation Comments HEPATITIS B CORE TOTAL ANTIBODY Nonreactive Nonreactive (BEAKER) (test code = 497) Vice President Of Development ID - ADMINHEPATITIS B SURFACE [id number] 17:40:43 Test Item Value Reference Range Interpretation Comments HEPATITIS B SURFACE ANTIGEN (2) Nonreactive Nonreactive (BEAKER) (test code = 2585) Specimen is considered negative for HBsAg.HEPATITIS C [id number] 17:39:02 Test Item Value Reference Range Interpretation Comments HEPATITIS C ANTIBODY (BEAKER) Nonreactive Nonreactive (test code = 367) Vice President Of Development ID - ADMINIRON, TIBC, % SAT. (WITHOUT FERRITIN)2022-12-30 17:19:01 Test Item Value Reference Range Interpretation Comments IRON (BEAKER) (test code = 547) 81.0 ug/dL 40.0-160.0 TOTAL IRON BINDING CAPACITY 108 ug/dL 250-450 L (BEAKER) (test code = 769) IRON % SATURATION (2) (BEAKER) 75 % 20-55 H (test code = 2591) Vice President Of Development ID - ADMINCOMPREHENSIVE METABOLIC [id number] 16:25:30 Test Item Value Reference Range Interpretation Comments TOTAL PROTEIN 6.0 gm/dL (BEAKER) (test code = 770) ALBUMIN (BEAKER) 2.8 g/dL (test code = 1145) ALKALINE PHOSPHATASE 67 U/L (BEAKER) (test code = 346) BILIRUBIN TOTAL 4.6 mg/dL 0.2-1.2 H (BEAKER) (test code = 377) SODIUM (BEAKER) (test 139 meq/L 136-145 code = 381) POTASSIUM (BEAKER) 3.7 meq/L 3.5-5.1 (test code = 379) CHLORIDE (BEAKER) 106 meq/L 98-107 (test code = 382) CO2 (BEAKER) (test 24 meq/L 22-29 code = 355) BLOOD UREA NITROGEN 17 mg/dL 7-21 (BEAKER) (test code = 354) CREATININE (BEAKER) 0.96 mg/dL 0.57-1.25 (test code = 358) GLUCOSE RANDOM 129 mg/dL 70-105 H (BEAKER) (test code = 652) CALCIUM (BEAKER) 8.1 mg/dL (test code = 697) AST (SGOT) (BEAKER) 59 U/L 5-34 H (test code = 353) ALT (SGPT) (BEAKER) 33 U/L 6-55 (test code = 347) EGFR (BEAKER) (test INSUFFIC IENT CLINICAL code = 1092) DATA TO CALCULA TE ESTIMATED GFR. Vice President Of Development ID - ADMINSpecimen moderately ictericLACTATE DEHYDROGENASE (LDH) 2022-12-30 16:17:54 Test Item Value Reference Range Interpretation Comments LACTATE DEHYDROGENASE (BEAKER) (test 246 U/L 125-220 H code = 635) Vice President Of Development ID - [id number] 16:17:53 Test Item Value Reference Range Interpretation Comments MAGNESIUM (BEAKER) (test code = 1.8 mg/dL 1.6-2.6 627) Vice President Of Development ID - [id number] 16:17:53 Test Item Value Reference Range Interpretation Comments PHOSPHORUS (BEAKER) (test code = 2.7 mg/dL 2.3-4.7 604) Vice President Of Development ID - [id number] 16:17:14 Test Item Value Reference Range Interpretation Comments ALPHA-1 ANTITRYPSIN (BEAKER) 61.00 mg/dL 90.00-200.00 L (test code = 502) Vice President Of Development ID - ADMINPROTHROMBIN TIME/[id number] 16:09:26 Test Item Value Reference Range Interpretation Comments PROTIME (BEAKER) (test code = 25.6 seconds 11.9-14.2 H 759) INR (BEAKER) (test code = 370) 2.51 <=5.90 RECOMMENDED COUMADIN/WARFARIN INR THERAPY RANGESSTANDARD DOSE: 2.0 - 3.0 Includes: PROPHYLAXIS for venous thrombosis, systemic embolization; TREATMENT for venous thrombosis and/or pulmonary embolus.HIGH RISK: Target INR is 2.5-3.5 for patients with mechanical heart valves.CBC W/PLT COUNT & AUTO [id number] 16:06:15 Test Item Value Reference Range Interpretation Comments WHITE BLOOD CELL COUNT (BEAKER) 6.3 K/ L 4.0-10.0 (test code = 775) RED BLOOD CELL COUNT (BEAKER) 3.19 M/ L (test code = 761) HEMOGLOBIN (BEAKER) (test code = 11.3 GM/DL 410) HEMATOCRIT (BEAKER) (test code = 34.4 % 411) MEAN CORPUSCULAR VOLUME (BEAKER) 108 fL (test code = 753) MEAN CORPUSCULAR HEMOGLOBIN 35.4 pg 27.0-33.0 H (BEAKER) (test code = 751) MEAN CORPUSCULAR HEMOGLOBIN CONC 32.8 GM/DL (BEAKER) (test code = 752) RED CELL DISTRIBUTION WIDTH 17.7 % (BEAKER) (test code = 412) PLATELET COUNT (BEAKER) (test code 40 K/CU MM 150-430 L = 756) MEAN PLATELET VOLUME (BEAKER) 11.2 fL 6.5-10.5 H (test code = 754) NUCLEATED RED BLOOD CELLS (BEAKER) 0 /100 WBC 0-0 (test code = 413) NEUTROPHILS RELATIVE PERCENT 77 % (BEAKER) (test code = 429) LYMPHOCYTES RELATIVE PERCENT 13 % (BEAKER) (test code = 430) MONOCYTES RELATIVE PERCENT 6 % (BEAKER) (test code = 431) EOSINOPHILS RELATIVE PERCENT 3 % (BEAKER) (test code = 432) BASOPHILS RELATIVE PERCENT 1 % (BEAKER) (test code = 437) NEUTROPHILS ABSOLUTE COUNT 4.85 K/ L (BEAKER) (test code = 670) LYMPHOCYTES ABSOLUTE COUNT 0.80 K/ L 1.48-4.50 L (BEAKER) (test code = 414) MONOCYTES ABSOLUTE COUNT (BEAKER) 0.39 K/ L 0.00-1.30 (test code = 415) EOSINOPHILS ABSOLUTE COUNT 0.19 K/ L 0.00-0.50 (BEAKER) (test code = 416) BASOPHILS ABSOLUTE COUNT (BEAKER) 0.03 K/ L 0.00-0.20 (test code = 417) IMMATURE GRANULOCYTES-RELATIVE 0.30 % 0.00-1.00 PERCENT (BEAKER) (test code = 2801) CALCIUM, [id number] 16:03:36 Test Item Value Reference Range Interpretation Comments CALCIUM IONIZED (BEAKER) (test 1.07 mmol/L 1.12-1.27 L code = 698) PH, BLOOD (BEAKER) (test code = 7.38 1810) RAD, CHEST, 1 VIEW, NON [id number] 15:04:00SAURABH NICOLE MD Reason for exam:->post left thoracentesis R/O pneumothoraxShould this beperformed at the bedside?->Yes [facility] : 1965 Sex: UFINAL REPORT Chest, 1 view, 12/30/2022 2:23 PM. History: Post left thoracentesis. Comparison: 12/29/2022. Discussion: The cardiac silhouette is stable. There is decreased left pleuroparenchymal opacity. There is no evidence of a pneumothorax. The soft tissues and osseous structures are intact. IMPRESSION: No evidence of complication post left thoracentesis. Signed: Chano Enriquez Verified Date/Time: 12/30/2022 15:04:41 Reading Location: [facility] Radiology Reading Room U/S, [id number] 14:59:00SAURABH NICOLE MD Labs to be ordered:->Body Fluid Culture (w/Gram Stain, C\\T\\S) Labs to be ordered:->Cell Count Reason for exam:->abdominal pain, cirrhosis Should this be performed at the bedside?->No [facility] : 1965 Sex: UFINAL REPORT Ultrasound guided paracentesis. Clinical History: Ascites. Sedation: None. Private Branch Exchange Repairer: Danuta Taylor PA-C Brick Stacker: None. Estimated Blood Loss: < 1 cc. Specimen:2600 cc of cloudy serosanguineous fluid, samples sent to laboratory. Technique: Informed consent wasobtained. The risks of pain, bleeding, infection, bowel perforation, injury to adjacent structures, and adverse medication reactions were discussed with the patient. After informed consent was obtained, the patient's abdomen was scanned. The right upper quadrant of the abdomen was selected for paracentesis. After the largest fluid pocket area was marked, and the anterior abdominal wall was evaluatedwith color Doppler to exclude presence of blood vessels traversing the area, the skin was prepped and draped in the usual sterile manner. After local anesthesia was achieved with 2% lidocaine, a 5 Singaporean one-step catheter was advanced into the peritoneal cavity under ultrasound guidance. After completion of drainage, the catheter was removed. There was no evidence of complication. Impression:Successful ultrasound guided paracentesis. Signed: Lee Diaz MDReport Verified Date/Time: 12/30/2022 14:59:31 Reading Location: [address] Ultrasound Reading Room Body fluid cell count with [id number] 14:42:21 Test Item Value Reference Range Interpretation Comments Appearance (test code Hazy Clear A = 9335-1) Color (test code = [place] Colorless, Straw A 6824-7) RBCs (test code = 87689 See_Comment H [Automate d 10158-7) message] The system which generated this result transmit joanna reference range : <=1 /cu mm. The reference range was not used to interpret this result as normal/abnormal . TNC Count (test code = 458 See_Comment H [Aut omated 1442) message] The system which generated this result transmit joanna reference range : <=5 /cu mm. The reference range was not used to interpret this result as normal/abnormal . Lining Cells/Other 16 Diff'd (test code = 1589) Adjusted WBC Count 395 See_Comment H [Automat ed (test code = 09602-9) messag e] The system which generated this result transmit joanna reference range : <=5 /cu mm. The reference range was not used to interpret this result as normal/abnormal . Adjusted lining 63 See_Comment H [Automated cells/Others (test message] The code = 75303-9) system which generated this result transmit joanna reference range : <=1 /cu mm. The reference range was not used to interpret this result as normal/abnormal . % Segs (test code = 29 % 72981-8) % Lymphs (test code = 39 % 56450-9) % Monos (test code = 31 % 93414-4) % Eos (test code = 1 % 21547-5) % Baso (test code = 0 % 38758-8) Container Body Fluid Sterile Vial (test code = 2873) Lab Interpretation Abnormal (test code = 83260-0) [facility] WITH [id number] 14:42:21 Test Item Value Reference Range Interpretation Comments APPEARANCE FLUID (BEAKER) (test Hazy Clear A code = 510) COLOR FLUID (BEAKER) (test code [place] Colorless, Straw A = 511) RBC FLUID (BEAKER) (test code = 77003 /cu mm <=1 H 513) TOTAL NUCLEATED CELL COUNT 458 /cu mm <=5 H (BEAKER) (test code = 1442) LINING CELLS/OTHERS DIFF'D 16 (BEAKER) (test code = 1589) ADJUSTED WBC FLUID (BEAKER) 395 /cu mm <=5 H (test code = 1691) LINING CELLS/OTHERS, CALCULATED 63 /cu mm <=1 H (BEAKER) (test code = 1590) NEUTROPHILS FLUID (BEAKER) 29 % (test code = 1656) LYMPHS FLUID (BEAKER) (test 39 % code = 488) MONO/MACROPHAGE FLUID (BEAKER) 31 % (test code = 489) EOSINOPHILS FLUID (BEAKER) 1 % (test code = 491) BASO FLUID (BEAKER) (test code 0 % = 492) CONTAINER BODY FLUID (BEAKER) Sterile Vial (test code = 2873) CT, [id number] 12:35:00SAURABH NICOLE MD Unlisted Reason for Exam - Click Yes and Enter Reason Below->NoProtocol Please Specify:->Standard ProtocolWill this procedure require oral contrast?->No [facility] REED : 1965 Sex: UFINAL REPORT EXAM: CT abdomen and pelvis COMPARISON: Abdominal MR, November 25, 2022 CLINICAL HISTORY: Abdominal distention TECHNIQUE: Helical images of the abdomen and pelvis were obtained after IV contrast administration DOSE REDUCTION: The exams was performed according to the departmental dose- optimization program which includes automated exposure control, adjustment of the mA and/or kV according to patient size and/or use of iterative reconstruction technique. FINDINGS: There is mild to moderate pleural effusions, right greater than left with partial consolidation of the left lowerlobe showing air bronchogram. The cardiac size is within normal limits. The liver demonstrates nodular contour consistent with cirrhosis. The spleen is mildly enlarged. The pancreas, adrenal glands, and kidneys are unremarkable. The gallbladder has been removed. The small and large bowels are normal in caliber without evidence of obstruction. The bladder, uterus and ovaries are unremarkable. There ismoderate ascites. Mildly prominent lymph nodes are noted in the retroperitoneum and along the mesentery. The aorta and IVC are normal in caliber. IMPRESSION: 1. Cirrhotic changes of the liver. 2. Mild splenomegaly. 3. Moderate ascites. 4. Mild bilateral pleural effusions. 5. Partial consolidation of the left lung base which may represent pneumonitis. 6. Status post cholecystectomy. Signed: Alexandro Card MDReport Verified Date/Time: 12/30/2022 12:35:05 Electronically signed by: ALEXANDRO CARD M.D.on 12/30/2022 12:35 PM BODY FLUID CELL COUNT WITH [id number] 11:08:18 Test Item Value Reference Range Interpretation Comments APPEARANCE FLUID (BEAKER) (test Cloudy Clear A code = 510) COLOR FLUID (BEAKER) (test code Red Colorless, Straw A = 511) RBC FLUID (BEAKER) (test code = 01268 /cu mm <=1 H 513) TOTAL NUCLEATED CELL COUNT 672 /cu mm <=5 H (BEAKER) (test code = 1442) LINING CELLS/OTHERS DIFF'D 16 (BEAKER) (test code = 1589) ADJUSTED WBC FLUID (BEAKER) 579 /cu mm <=5 H (test code = 1691) LINING CELLS/OTHERS, CALCULATED 93 /cu mm <=1 H (BEAKER) (test code = 1590) NEUTROPHILS FLUID (BEAKER) 35 % (test code = 1656) LYMPHS FLUID (BEAKER) (test 30 % code = 488) MONO/MACROPHAGE FLUID (BEAKER) 35 % (test code = 489) EOSINOPHILS FLUID (BEAKER) 0 % (test code = 491) BASO FLUID (BEAKER) (test code 0 % = 492) CONTAINER BODY FLUID (BEAKER) Sterile Vial (test code = 2873) Protein, random [id number] 22:24:47 Test Item Value Reference Range Interpretation Comments Protein, Urine (test code 47 mg/dL 0-14 H = 2888-6) EDILBERTO (test code = EDILBERTO) Vice President Of Development ID - ADMIN Lab Interpretation (test Abnormal code = 75303-1) [facility] RANDOM [id number] 22:24:47 Test Item Value Reference Range Interpretation Comments PROTEIN, URINE (BEAKER) (test code = 47 mg/dL 0-14 H 1569) Vice President Of Development ID - ADMINCreatinine, random [id number] 22:24:46 Test Item Value Reference Range Interpretation Comments Creatinine, Ur 176.5 mg/dL (test code = 2161-8) EDILBERTO (test code = Reference Range: No EDILBERTO) NormalsOperator ID - ADMIN [facility]AT[facility], RANDOM [id number] 22:24:46 Test Item Value Reference Range Interpretation Comments CREATININE URINE (BEAKER) (test 176.5 mg/dL code = 375) Reference Range: No NormalsOperator ID - ADMINUrinalysis w/[id number] 22:11:30 Test Item Value Reference Range Interpretation Comments Color, UA (test code Yellow = 5778-6) Clarity, UA (test Hazy code = 5767-9) Specific Ralph, UA 1.046 1.001-1.035 H (test code = 5811-5) pH, UA (test code = 6.5 5.0-8.0 5803-2) Protein, UA (test 70 mg/dL Negative A code = 42216-0) Glucose, UA (test Negative Negative code = 365) Ketones, UA (test Negative Negative code = 2514-8) Bilirubin, UA (test Negative Negative code = 28374-7) Blood, UA (test code Large Negative A = 88031-7) Nitrite, UA (test Negative Negative code = 5802-4) Leukocytes, UA (test Negative Negative code = 5799-2) Urobilinogen, UA 0.2 0.2-1.0 (test code = 83176-5) RBC, UA (test code = 138 See_Comment [Autom ated 21685-9) message] The system which generated this result transmit joanna reference range : /HPF. The reference range was not used to interpret this result as normal/abnormal . WBC, UA (test code = 0 See_Comment [Autom ated 5821-4) message] The system which generated this result transmit joanna reference range : /HPF. The reference range was not used to interpret this result as normal/abnormal . Bacteria, UA (test Rare code = 62711-8) Mucus (test code = Few 8247-9) Squam Epithel, UA 3 See_Comment [Automate d (test code = 10637-3) messag e] The system which generated this result transmit joanna reference range : /HPF. The reference range was not used to interpret this result as normal/abnormal . Specimen Source (test Urine, Clean code = 2795) Catch EDILBERTO (test code = EDILBERTO) Vice President Of Development ID - [auto]Vice President Of Development ID - tech Lab Interpretation Abnormal (test code = 89722-7) [facility]/ [id number] 22:11:30 Test Item Value Reference Range Interpretation Comments COLOR (BEAKER) (test code Yellow = 470) CLARITY (BEAKER) (test Hazy code = 469) SPECIFIC GRAVITY UA 1.046 1.001-1.035 H (BEAKER) (test code = 468) PH UA (BEAKER) (test code 6.5 5.0-8.0 = 467) PROTEIN UA (BEAKER) (test 70 mg/dL Negative A code = 464) GLUCOSE UA (BEAKER) (test Negative Negative code = 365) KETONES UA (BEAKER) (test Negative Negative code = 371) BILIRUBIN UA (BEAKER) Negative Negative (test code = 462) BLOOD UA (BEAKER) (test Large Negative A code = 461) NITRITE UA (BEAKER) (test Negative Negative code = 465) LEUKOCYTE ESTERASE UA Negative Negative (BEAKER) (test code = 466) UROBILINOGEN UA (BEAKER) 0.2 0.2-1.0 (test code = 463) RBC UA (BEAKER) (test code 138 /HPF = 519) WBC UA (BEAKER) (test code 0 /HPF = 520) BACTERIA (BEAKER) (test Rare code = 517) MUCUS (BEAKER) (test code Few = 1574) SQUAMOUS EPITHELIAL 3 /HPF (BEAKER) (test code = 516) SOURCE(BEAKER) (test code Urine, Clean Catch = 2795) Vice President Of Development ID - [auto]Vice President Of Development ID - [id number] 17:38:31 Test Item Value Reference Range Interpretation Comments PROCALCITONIN (BEAKER) (test code = < ng/mL <0.05 3036) SEPSIS RISK (ng/mL)Low: 0.05-0.50Intermediate: 0.51-2.00High: >=2.01LACTIC ACID, [id number] 17:22:42 Test Item Value Reference Range Interpretation Comments LACTATE BLOOD VENOUS 2.07 mmol/L 0.50-2.00 H Specime n slightly (2) (BEAKER) (test hemolyzed code = 2872) Vice President Of Development ID - BSSpecimen slightly ictericRAD, CHEST, 1 VIEW, NON [id number] 16:10:00SAURABH NICOLE MD Reason for exam:->evaluate left pleural effusionShould this be performedat the bedside?->Yes [facility] : 1965 Sex: FFINAL REPORT TECHNIQUE: Frontal view of the chest. INDICATION: evaluate left pleuraleffusion. COMPARISON: None. FINDINGS: LINES/TUBES: None. HEART AND MEDIASTINUM: Cardiomediastinal contour is within normal limits. LUNGS: Patchy left basilar opacity. Mild vascular congestion. PLEURA: Moderate to large size left pleural effusion. No right pleural effusion. No pneumothorax. SOFT TISSUES AND BONES: Unremarkable. IMPRESSION: 1. Moderate to large size left pleural effusion with left lower lobe collapse and/or consolidation. Background of mild pulmonary vascular congestion. Signed: Adilia Polanco MDReport Verified Date/Time: 12/29/2022 16:10:06 B-TYPE NATRIURETIC FACTOR (BNP)2022-12-29 15:33:37 Test Item Value Reference Range Interpretation Comments B-TYPE NATRIURETIC PEPTIDE (BEAKER) 31 pg/mL 0-100 (test code = 700) Vice President Of Development ID - BSCOMPREHENSIVE METABOLIC [id number] 14:18:45 Test Item Value Reference Range Interpretation Comments TOTAL PROTEIN 7.2 gm/dL 6.0-8.3 (BEAKER) (test code = 770) ALBUMIN (BEAKER) 2.5 g/dL 3.5-5.0 L (test code = 1145) ALKALINE 115 U/L 40-150 PHOSPHATASE (BEAKER) (test code = 346) BILIRUBIN TOTAL 3.7 mg/dL 0.2-1.2 H (BEAKER) (test code = 377) SODIUM (BEAKER) 135 meq/L 136-145 L (test code = 381) POTASSIUM (BEAKER) 3.3 meq/L 3.5-5.1 L (test code = 379) CHLORIDE (BEAKER) 103 meq/L 98-107 (test code = 382) CO2 (BEAKER) (test 25 meq/L 22-29 code = 355) BLOOD UREA 16 mg/dL 7-21 NITROGEN (BEAKER) (test code = 354) CREATININE 0.90 mg/dL 0.57-1.25 (BEAKER) (test code = 358) GLUCOSE RANDOM 112 mg/dL 70-105 H (BEAKER) (test code = 652) CALCIUM (BEAKER) 7.8 mg/dL 8.4-10.2 L (test code = 697) AST (SGOT) 84 U/L 5-34 H (BEAKER) (test code = 353) ALT (SGPT) 49 U/L 6-55 (BEAKER) (test code = 347) EGFR (BEAKER) 74 Interpretatio n of eGFR (test code = 1092) mL/min/1.[address] age Description sq m Result G1 Liam l or high >=90 G2 Mildly decreased 60-89 G3a Mildl y to moderately 45-5 9 G3b Moderately to s everely 30-44 G4 Severl y decreased 15-29 G5 Kidney failure <15Reported eGF R is based on the CKD-EPI 2020 equation that d oes not use a race coefficientEsti mated GFR is not as accur ate as Creatinine Carol moiz in predicting glom erular filtration rate . Estimated GFR is not appl icable for dialysis patien ts Vice President Of Development ID - ADMINSpecimen slightly ictericPROTHROMBIN TIME/[id number] 13:44:11 Test Item Value Reference Range Interpretation Comments PROTIME (BEAKER) (test code = 20.8 seconds 11.9-14.2 H 759) INR (BEAKER) (test code = 370) 1.84 <=5.90 RECOMMENDED COUMADIN/WARFARIN INR THERAPY RANGESSTANDARD DOSE: 2.0 - 3.0 Includes: PROPHYLAXIS for venous thrombosis, systemic embolization; TREATMENT for venous thrombosis and/or pulmonary embolus.HIGH RISK: Target INR is 2.5-3.5 for patients with mechanical heart valves.[id number] 13:43:55 Test Item Value Reference Range Interpretation Comments MAGNESIUM (BEAKER) (test code = 1.8 mg/dL 1.6-2.6 627) Vice President Of Development ID - ADMINCBC W/PLT COUNT & AUTO [id number] 13:21:51 Test Item Value Reference Range Interpretation Comments WHITE BLOOD CELL COUNT (BEAKER) 9.2 K/ L 3.5-10.5 (test code = 775) RED BLOOD CELL COUNT (BEAKER) 3.74 M/ L 3.93-5.22 L (test code = 761) HEMOGLOBIN (BEAKER) (test code = 13.1 GM/DL 11.2-15.7 410) HEMATOCRIT (BEAKER) (test code = 38.2 % 34.1-44.9 411) MEAN CORPUSCULAR VOLUME (BEAKER) 102 fL 79-95 H (test code = 753) MEAN CORPUSCULAR HEMOGLOBIN 35.0 pg 25.6-32.2 H (BEAKER) (test code = 751) MEAN CORPUSCULAR HEMOGLOBIN CONC 34.3 GM/DL 32.2-35.5 (BEAKER) (test code = 752) RED CELL DISTRIBUTION WIDTH 17.6 % 11.7-14.4 H (BEAKER) (test code = 412) PLATELET COUNT (BEAKER) (test code 73 K/CU MM 150-450 L = 756) MEAN PLATELET VOLUME (BEAKER) 10.2 fL 9.4-12.3 (test code = 754) NUCLEATED RED BLOOD CELLS (BEAKER) 0 /100 WBC 0-0 (test code = 413) NEUTROPHILS RELATIVE PERCENT 65 % (BEAKER) (test code = 429) LYMPHOCYTES RELATIVE PERCENT 19 % (BEAKER) (test code = 430) MONOCYTES RELATIVE PERCENT 13 % (BEAKER) (test code = 431) EOSINOPHILS RELATIVE PERCENT 2 % (BEAKER) (test code = 432) BASOPHILS RELATIVE PERCENT 1 % (BEAKER) (test code = 437) NEUTROPHILS ABSOLUTE COUNT 6.01 K/ L 1.56-6.13 (BEAKER) (test code = 670) LYMPHOCYTES ABSOLUTE COUNT 1.73 K/ L 1.18-3.74 (BEAKER) (test code = 414) MONOCYTES ABSOLUTE COUNT (BEAKER) 1.22 K/ L 0.24-0.36 H (test code = 415) EOSINOPHILS ABSOLUTE COUNT 0.17 K/ L 0.04-0.36 (BEAKER) (test code = 416) BASOPHILS ABSOLUTE COUNT (BEAKER) 0.05 K/ L 0.01-0.08 (test code = 417) IMMATURE GRANULOCYTES-RELATIVE 0.30 % 0.00-1.00 PERCENT (BEAKER) (test code = 2801) Prepare [id number] 23:54:00 Test Item Value Reference Range Interpretation Comments Unit ABO (test code = 2490317) A Pos UNIT NUMBER (test code = [id number] 934-0) Status (test code = 2475866) TX_TIMEINCHART Blood Bank Product (test code FFP = 2263) PRODUCT CODE (test code = [id number] 933-2) [facility] [id number] 23:54:00 Test Item Value Reference Range Interpretation Comments Unit ABO (test code = 5432062) A Pos UNIT NUMBER (test code = [id number] 934-0) Status (test code = 4325964) TX_TIMEINCHART Blood Bank Product (test code FFP = 2263) PRODUCT CODE (test code = F0273A86 933-2) [facility] HospitalPrepar [id number] 23:54:00 Test Item Value Reference Range Interpretation Comments Unit ABO (test code = 3062172) A Pos UNIT NUMBER (test code = [id number] 934-0) Status (test code = 0659413) TX_TIMEINCHART Blood Bank Product (test code FFP = 2263) PRODUCT CODE (test code = [id number] 933-2) [facility] Hospital[facility] Needle Aspirate by [id number] 09:58:30 Test Item Value Reference Range Interpretation Comments Case Report (test code Medical Cytology = 104) Report Case: [id number] Authorizing Provider: Arcenio Lazo Collected: 11/30/2022 08:48 AM Ordering Location: [address] Received: 11/30/2022 03:09 PM Service Pathologist: Simon Corona MD Specimen: Lymph Node, liver, marguerite-portal lymph node biopsy via FNA DIAGNOSIS (test code = [id number] 3220) FuZzEwMzNcZnRuYmpcdWMx IHtccnRmMVxlcGljMTAyMD KnCA0hsJidcJw3dCbwUTMp sbV4bHNbURooe2ooVWJ4j9 bxufffNIQlBQwdAe9lmOMc rJxkEuDvWZQpSKt8tS94OI NciC7owVVlKPb4SFFelCFc htWxSxQuINZgmAKkvCR9YV UzWQ0iuxfoZXgvURlfGEPb jgY8ALKxrWSfH5EuEMPdEN 0lsftuVWD1MEgsSIHfIAE6 CeZjVPKsu7Ksywj1VxTjzN FyZFxwbGFpblxmczIwIExZ NNUSCZ3BPWWqYUeJKaHVCS HIXspgMI8KFNNEMDNRHE2U A0ifShcBISFXYVCeP7dUM0 VTQZ3SVLJETKGWDJvGUADI D1SIDOxccEUdDVHfJA7vAa IGZONWLbYgCg4SCV6OWVqJ AeMUZVWADOgXWk5mxYJiUE QfDC2oJ2LDGbKuCIdJKJaK RKAcMOyFF9UFQgstENW4e0 xydGYxXHNzdGUxODAwMFxh bnNpXGRlZmxhbmcxMDMzXG S0mdFkHRUaHPgdMSWoRNzl Ob1vsZZtaAcdBvTvLRZqt7 kucyOZqzioiBo9p7tqJBWq PwC4fIJcWZcuK1sftvCpcQ TbIHKwKOx4aZ95ZODbhR3p mGYkCUhsirOwDnM1DUueAW AsNjN6VPUgmQZwZWEmW0xx ZWQwXGdyZWVuMFxibHVlMC Y7wVhzb5V4bHVzcQTlsZky XjUcUlEiNrFFg6KbSKn3oT igQ9TfLSWxAqJ6bJIcMEBq ARoyQJPpOMFwgbK7yJ00SO gojeX9sEOzy5Akn37ye974 jM5pgWRfBVU0ZQPzDBGbqO OgEYKfRWZ4HUSxkQXdE8vs GIElCZ4nodyeTUlsBRxoNY NyeFY4EVUneJRwX3MqBOLj SHrbVUQxmyz2RlXfSg1vrA VeaWevPBbnm3bfk2ltqEXl Yex4BVIgAlCqDbifSUtyc5 Pxs9ayAAWpzl9gTUO8jQCa jGdgr5U5kKEfLIVxwOJuFT CvLV7ofFXtDJUjbQ9dhyzr XHBnYnJkcmhlYWRccGdicm IsQv5mhZogREF1VMaxU5ga jH1mZuK6PWfsR0agsS3dNK u7QXcdENBpzZR6daH9URJz dRZgM8LvqI8vTUElKP9ebu x9r7lvHYC4RLfsCYIaDdP4 vdR2NOGuzXVsTCWquEeoJF bnn463SMV1XwFeOACwd6Qa X1VzkHtlR71ohHvpY48zTS AspUniwA4exBavuX0sGtJt LuSiTYlrnKzwDN2jWYZsW1 wuoZHdGIBrCUCxM5qoIxGo sC6vuQzbDZvbmrXwIWBpUr p7QKLtaKAjMHXpNbe0SYRz ALIpN53iudulILJ5gS2cq6 ies6QhJXegKZQ8KLMre54h XSkaxfP1TMnsXe44GEgsCV S9UGnxVVE5sP== CPT Code(s) (test code n8cdeSPhQSNjbLBpROVcPG = 6321) bfvpQaJZGlhGBfP5Psyvum RBtnFS3cYX8jrKkftEWmzE VaAUZuIgZbi7bbi651mLMo f3cvMAYEdyjokVe4bEymQ9 1eq2F4RpcxS85ttEYrIYU4 QRIfSYGccXGeMDApLJY1QJ AybNJnK8vqMXTaUN6hwssg GPrgIHrsZDUdoXK9MAKqsI HaH3SjUVDjZNpwEKFjxhl7 EjIuAl5vxSRzoEgwWWarWS JkXHBsYWluXGZzMjAgODgx RzHpPLk0HfV5POSopg3= CLINICAL DATA (test x7kcjTMiAPCdeWGoCSAySI code = 3355) ohexSnKMKpoVAqG6Vrvqui BIuxLV9hOT2jwDhfpOAxsP FgXXCrIaVdd3oyb561xCOz u5xzRTCNfohtcAw0mYfaC6 2sh2Y6PhuiT24sxXCyHUH8 EQBoCUWnsGCqBZJbOMM2LQ VjjEGgM5kvIYAcQW1tknzh NKfkJBxkROWzoVV3PWFxdN CvA2NhGTYeHDmkMJSooow8 LzMtWb0mmVCtxNfzFTzkUC JkXHBsYWluXGZzMjAgNTgg gB8kMeu+Rlx+b5f9pHXJWA LQHGWavzNid3Nfenghz3sw AAApDHUkkmEbQHK3okQZT3 eav6w7dFH4iMFcrpUiSSVg LVIfmT7kQP4sRFRJMGDsBR luIHggNCBkYXlzIGFuZCB3 RWAxKy61utWtfG4yyLJ3YZ Xos9imwWblGQMiMGGxs61k LGVeNDYzfvLmcQ7cAFE8o1 EixVvaK1Afe7gpYJ6lxH5e vPRneCYrqIUsu27qhH7pK6 acHqmfvFa2wfP6imHgy3Uc seNwEBV3neJTN6yDOnXtq6 SpCQvGZr9xdnigLDM2 SPECIMEN SOURCE (test v6niqVGaHSTapEVzYYWkOO code = 3377) zenbEnJVOssZUxR7Nyiynx MWfqYY6vHY1miDasuOEcnM VqZOKjDlSyh6aff215pQCp s8irHRQHpvwtiMf3wJwbQ0 7ko8R9BdhdQ84wrDZtLQU3 EJUfMAKpqTLzRLYkPFT1FM WhlBZsU4irCCFbAQ8sknyi WDleXBniYPLgfZE1GIOlcP WuC7TdPOKyYMeaPLIdjha7 BtMlXo1qoVRasZsoGNvjCX JkXHBsYWluXGZzMjAgTFlN RMtqGz5RRLsfTKtFMXOjNZ XKBlpwSE6QMULSOXYNX2YV WSBGTkFccGFyfQ== GROSS DESCRIPTION (test a8hxdHOdHCKysFCWLYHbIE code = 7352507872) JcOQ2adRcqxAz5uVmqLQDu ziN7nDAiGZuot6dmVDT8u2 uesvVMMthhHCPaTO4kISyz WLRzWP6eAxCoOHStYnSvQQ BhcGVydzEyMjQwXHBhcGVy hOG5OFZxDF4geefiUPpsFQ dyFZYcwyF9YNNuqEPaY9Sm OIHcVU3jbypyDIV7RSFDNy aoNo1ylQEgwWphHfJlSaMa YXJzZXQwXGZuaWwgQXJpYW o8dT2FXnrtAJE3ZDYJDizs UzsyqTnyg2IvuLMzPTLaZB xcaWQgNTEwMDAgXFxkYiBP EkNbGhE6TDIjJaZ7YsK8UU p2NIPLUNXaEIIuOiJkCDX1 RRs4AMUmHE0fZCtnhPOoRK avBbxiSTrkM271NIdfKTNh X8FuK0SlJXbiZjJlAGlpGD FtUIVmNVawPKYaL2QXDZJx JXQiUDK4XLMdVDe3XNeaX0 CHEDIrISNeXdxpQaB4HoY0 AEq1OCFUAc8gBwc9SMd0XH X6QYM1ETj5QStrbBNhQAwg s9ZuSpGlDXYeURvqjgV0SE BazdCwQKqbaYoqjZ0sPpQi SaQALkTOdM8ypNRUg8OaSP GybvLDQqnpNTPpPV5XEANw PIcxHAUfKqBtySZkL7usEG OsA12hh9CUd9GoBY3XKWu9 alDtodayqH4uISJdlhZkER pcZnMyMCBSZWNlaXZlZCAx DGTwfJTdmJ7xC0h2i8XrG9 ggcmVkOyBwcmVwYXJlZCA0 XMW8fQ4gnUjuhrhiQ1FqmR AbdB9rieJrBKEtYAziLByu YVWvx1LmVREtGPEcUWVsry Uyb3WqRMdfxqPxiVEuCQqp NSBvbiAzLzIxLzIwMjMpXH BhciANClxzYTMwXGVwaWNY w4OwVZHUSmsetItlSjHmvK GxKeK9RPHcvAPdJTO0EF9i lPvsIRTcG9CwZ4FuanN0TH SdgaNHJjmbTNNvDF6ETZSt MjIgDQp9 MICROSCOPIC DESCRIPTION l5sgoAMoOAXpfBUfDODdUH (test code = 3371) jsjqAxSEYmbTLvM3Idxvvr HWruVM7qFA3zoPmdlYLxjZ BgXTMuSyBwj1juc955hGIy f2hrFZGJyrgnoGi7uCdnV7 8bp6V9DxyqI42mwZSvURE9 JQZhKUIueKVjBPWjYRE6MM GfkTGxS5xwKVIwGT8xqype LIuyIMajZQIpuFD6VLDvzM NiL4FyHWWoTUhzGPJgtsj9 DpIuTe9mhKTmhQgdIKvcBY JkXHBsYWluXGZzMjAgUGVy Wd1upWXdSocyUBRyoIYdUC xwYXJ9 Gross assessment was [facility] performed at (test [facility], = 5627) Department of Pathology, [address] [place] [address], [place] [address], Technical component was [facility] performed at ([facility], = 1827) Department of Pathology, [address] [place] [address], Professional component [facility] was performed at ([facility], code = 2779) Department of Pathology, [address] [place] [address], [facility] [id number] 09:58:30 Test Item Value Reference Range Interpretation Comments Case Report (test code Medical Cytology = 104) Report Case: [id number] Authorizing Provider: Arcenio Lazo Collected: 11/30/2022 08:48 AM Ordering Location: [address] Received: 11/30/2022 03:09 PM Service Pathologist: Simon Corona MD Specimen: Lymph Node, liver, marguerite-portal lymph node biopsy via FNA DIAGNOSIS (test code = [id number] 3220) FuZzEwMzNcZnRuYmpcdWMx IHtccnRmMVxlcGljMTAyMD YcMJ9ikRtelVg7zWqcDOVd rxJ5tQKzOSczl2vnNIG2n1 eaaawcPIViAQqgLu7ebZFo dYspLkXhAKMbRSv7dJ88GT QsnW4jzPKjFIt9QLPdfDTx rgFeOhRbUXUxnBFkxLR8PY VrUK8vpdilSDdgHTfbBHFd deJ0ITIvhCUhV4PzRXFoRN 8vbsibOFU6ZIgiBNElIOF9 VfXjYXAhp7Ojkmm8UuJthN FyZFxwbGFpblxmczIwIExZ HINLZN7MALZyXVvDCxJAAD GGSyqyDR8FDCYHPOFSWM1X P0sdWiaUJENNTDFlF8jPK7 BTZZ1SBYAHMRODJRsDXPML J6MYXIudpMRfIVTkQS2wLu UEWDRYYjYmQh9KJM1CHFrY UtHKAGMKWAjQPi6kiDPeIV MvUX1nQ6JZMpJoTTcJEEwO BIYlVMpUK4XJBppkQAG0a0 xydGYxXHNzdGUxODAwMFxh bnNpXGRlZmxhbmcxMDMzXG I3tfSsMPYfQRhdCZVaTKul Sj9yoDXaqKzyOoKbGANox3 zmlzGGzpuccHw1s6dbXLRd YrB4vASpFIhxD4hehmDopH JvSLNfMFz8dP52DMInpJ5s oEUaETjzvoViXaO6EQmoDF EeWxI4PQCwjLKeCEKiX9tf ZWQwXGdyZWVuMFxibHVlMC T4eXgbj2A8mRFldOTlwBlb GjZcAqBwZhFIc4OmRPc5aG icV4SmIAEdKpZ3vVSuVZOc MIttALEtNNKadbD1rT52EM hybfU7xMWnr6Hgs66vq354 bI5lyIXkDCJ8UTOeDKSwrJ YqOGRqPQP7LFTiwIFnT9sd DVRiGX8yvtuiFUczPHizCJ GmrED3IZDzyFQkC1JoCFDi VCjaCSEbizv4CeTaBv5gcX EwrWfkBGlny1mhs2nroRFu Bre8DLArPnRuJpfdJDepu3 Auh3cyYYTkhb0oGHG6eIPc qIowy6H2kNVjEFUggZCgTI EaID5svJNqVYAcyV1mugnj XHBnYnJkcmhlYWRccGdicm OoKd6fvTeqYEE7SOwuW1ep yJ6hWiM4RLrcI9hrhR1eUH f4LOiiJHLrtIA0zhZ4TORv eFTpJ1DdnZ3cNRFxMR1avm s4z2arIOT3AYrdPCFgQjB9 uhX6OWWayUMvLJIcdKipHU ohc372IWE4ZsSxDCZil3Fc K9LpuUylG53efAlcD28gVH TkwRacdH0ddDyooR7uObYe SrIxNCydwNjcUI5cRSPbR0 jtoWJxFDGkWFJrA8afDrIy aH6pwFqxYFgaalCtLVCiTu a0DOEvkFRwZCKhFkn2IQNz AZTvJ00kylorWVM9uS4yl3 lkz8RuIByeUWB9OKHvb59p RPsqsqA0IVkxDj37WLmrDU T7TShvSWM7oM== CPT Code(s) (test code d6mzaMSfSFWiyTRmJEFyHS = 3357) dqzrCsLKIjxYDjP8Nzjuvw OGkpQT5tRP4ywQrhaQOdpJ ClNWNxCqGrm4bxu205lUTb h6ghGXVOkfrqpVj7qAohT8 3uh5K4SqdkZ52iyXYnHPG3 UPNkNPWazNLlRNBdUMW5CC SjsSHlA0ooAQLlFK2geoqx OEbrMZevEVLqnLO8JXYlsF AaK1UtWRGyXNcaHFPazrp2 TjCyZb0ldUDcrBlsKJfdSA JkXHBsYWluXGZzMjAgODgx LiVpYQl4UoC9MDVcuz5= CLINICAL DATA (test b9atpYRpLTXkyATxDLIcSC code = 3355) xmnjFhGLLfbBHrT7Kfjesy SPaeEU0kGD4riDwpuZNlwO RkRPFjLoVqp2oex450vJFd f5qyAFHPflgkvQr4oNvcH8 0ms8C5NrjmT68oqXEfTCF2 PQGqPTRmrRLjMRBxXIA7GS GpaPXyT2ryOHAlUP5hqnrc FDnjZZtoQYNgzUG4ATKxdK PeR5GnYHXhSSwxJYTdkaw2 FdCzEx3txISlcIyjEAisRG JkXHBsYWluXGZzMjAgNTgg hF0tXfa+Rlx+n9f2uUDBXH OUYWGncxZjn5Sfgrqqc6vi JNCaPMEbmyIbKIL6lbWSD3 itn5i8uBD0qFJcqdKfRAGb GGHosP2rFH8cHHDIPVDqXD luIHggNCBkYXlzIGFuZCB3 CZBzUy37eaDooQ1izTA7LO Rvt7mwrTmxEOWnOFEoj05v RWWuCLPhpmZclW7sAYQ1v4 GwvMarY0Czq1ekHM0gxZ7v zAWzwFKetSCbd59qhJ7yI0 wjMsdmxJw1axO2ddKig7Uo kiOfJJW6dbQGL1cNTbYuk2 PtGYeDLb1oxeonWHG0 SPECIMEN SOURCE (test p7dtsLWxHIFyrWJkWSQhOR code = 3377) qrchBdWBRbhWHiF1Wupdnz WDisQQ1wUL0jkRmxaOFvtF BtBCEcTjAzn7img507dYEk v5ujHXJKlcjbgRk5zPixK5 7qx9V6VlspG36lsIYcCEN3 EYSuTFDhdBAgTDJbMXC4CI HwmTKjT6ghVFFjBR5mdodm BGyaAIhnMMWaiSL7QVZbiB PnD4QqMMApSOgbZWUdicg9 NpSvEf3slQWkeQacJQluIF JkXHBsYWluXGZzMjAgTFlN CRsvCs4SXLerJGsPUXZpZK LOTbsnLI6VOHWZSGAWK0YL WSBGTkFccGFyfQ== GROSS DESCRIPTION (test c1ieiYIqXYDrzSFXFWOnAT code = [id number]) KhQL2ywEdviGz0bBdmTNKk xhS0rBDfHTutb8pjYQC7f9 fmdiGBTucqWBXfGI0bITfi FRKeAK6nTlWcZBDtTrRdSC BhcGVydzEyMjQwXHBhcGVy nDP5LXDxNV5oibvzHRxjZS qwKNOgqnK6AYAuzKYpH7Qy RDXaIL9vmmsqRKS6APEMLd gnQu0irNHknAosDoXzWaGz YXJzZXQwXGZuaWwgQXJpYW l5sM7LEbvnFDO3AKJYDcuh CilftNtuu4YfrHLoPZWwYJ xcaWQgNTEwMDAgXFxkYiBP OtPyGfK2AZIzDeU5KnS2FP u1LEETSZRxJUXhIbXuCFW4 TQz5XRWeZS9bAJlawNBjTH wqBzaoQLhgN208QJorOFLe F6JeK9AtUSmdWqTuXMmxBA TtFJDjBLurGXGuX6IIFEGu EMBwDOD5BBTeYBt5LYptP2 SDMZFuSKOcMufeIxV5EcY1 LVc8WFLIPp5nAri0AFf6VV O5KSC5ZHw9OMmzpHMiUIsd x8UnXyFsXAFpIHztiaY0KM BcdiUwVHlejYqlxI5yWpYx YsVZGcDNvU5stHYYg2JnAT MplsIHYoaxJDFjNB5IQRGs GVwpWHBlXuVajLLeT0ppQX AaW40tk0OJi1VvVC3DKDl0 luNttzkefQ6gFTImjfZwAN pcZnMyMCBSZWNlaXZlZCAx YNQlcVMvaE1mS6r4w0EoG8 ggcmVkOyBwcmVwYXJlZCA0 FYB2cD4tbTszwajlO9SxjN GloB8echYpYEYkHIbrMMyt BODhh3DgDDZzEPDqXTQfkh Kqq5TnSOwjzoEqtZKqTHyi NSBvbiAzLzIxLzIwMjMpXH BhciANClxzYTMwXGVwaWNY l6YlWRESRnhklSnuFkJckG KoMgP2DWQioXCvERV3IF8q eZdmDCXoT0JgQ7SuibY4YS BvmaWQLfybPAFzCD4BPDBx MjIgDQp9 MICROSCOPIC DESCRIPTION v1cfkVWiFVEeqOVcNWLnUW (test code = 3371) wbbbNdOIBzjJWlC8Cqldxk BYluIF0pHD2hdMizhXIfrI RiHJZuOlThg7vot945eWLt q6ajKQCElvhloHd0kCbhF3 6zz3D5PxjcK47yqKHsYKG0 SGRlEDWtoWLiTNWvOUI8JD FobENyH0zlOLNzUN4vxndr OKruSMoxURKhmNE6PLEzpZ RyV6QmSONvVUwpWFZiuwp3 TgRvQn1ljNDrbDviTAldNK JkXHBsYWluXGZzMjAgUGVy Pa8uoVEqUntdBFAttVFeED xwYXJ9 Gross assessment was [facility] performed at ([facility], = 2777) Department of Pathology, [address] [place] [address], Technical component was [facility] performed at ([facility], = 2778) Department of Pathology, [address] [place] [address], Professional component [facility] was performed at ([facility], code = 2779) Department of Pathology, [address] [place] [address], [facility] by [id number] 09:58:30 Test Item Value Reference Range Interpretation Comments Case Report (test code Medical Cytology = 104) Report Case: [id number] Authorizing Provider: Arcenio Lazo Collected: 11/30/2022 08:48 AM Ordering Location: [address] Received: 11/30/2022 03:09 PM Service Pathologist: Simon Corona MD Specimen: Lymph Node, liver, marguerite-portal lymph node biopsy via FNA DIAGNOSIS (test code = [id number] 3220) FuZzEwMzNcZnRuYmpcdWMx IHtccnRmMVxlcGljMTAyMD QaMH3wuKgngOf8aPyiQKYu afH6bKGiXGwmw5ylOVN8d7 beprzgGEKkFOmeIn5mnMKr hVfvWjRsOLQiZCc9mH74PJ NsgL1ufKSgNXq7KTSinPQg ymOeCeKwHNIfqKFjzAU3UD HlBR9lfwkkDQlaFPamVUZg fdE4CGCofTWdL1EmJZTrOT 8fqywwZKG7XVvoZNVrFSD0 LzRfPVOci2Wpfpb8DiHhwR FyZFxwbGFpblxmczIwIExZ TTIZLV3CCTRwJWwDFyZLRB HYWlclCV3VWUZNLTNHTF0C N1lgAvjJVHUBISItT7eYH8 QPWE2CKTVCFZTRFSqLGRJB P8LJQLabhDKtELBeWK8zYf OSEEVVQcToNz9LHM5MVMhD BvHLYHNEYRpDFt9fcGNzVZ FhWN1gS1WZAkSgQMqWEWwQ SXEqPPjVQ2VPUzclVVD3u1 xydGYxXHNzdGUxODAwMFxh bnNpXGRlZmxhbmcxMDMzXG Y5mlTzJTEtLLhvSFLdBFbp Zw3nkPZhhCynEzHkYKZec2 koamXOnayruTo1t3tgQWPi VxZ9nECpXTrjJ4okwwLreG RvFDPxAAh1uL19BESbpC9f tKLfQThibnYuTjI8CVmqES UuUsE9MIToeKLaGSCfO4ak ZWQwXGdyZWVuMFxibHVlMC Y3oGytb2K5jNUtqPUmvBxt KtDhYkMzFhVWd9BnIVc9qP leH1BoZNZdFfS7mZSkREDx VLpsCHMtNSSwemS4hG48VR zwydI8yREfe0Bbi53fu288 tB3ftHOrPTY2PGLbTSHffT AiWAHgHYX5PZNseVFyI6tq YDIrDM9qejnnMMovHDhxJK MoaZL8CVBzhJDkW0IfFDGe FRchTTFaifi4FjGhOt0btM IqmVodIDceh4abc4yexSGz Npx3PVAsYaMeHfoeTIduj3 Xpv5wqRIBaht4aYXZ3hZGs cSzut6A9uYExNXAvhHFzFW OtAA6feWYkVYThbN5paqhy XHBnYnJkcmhlYWRccGdicm WvSt4owQnwRHX8WJjhY2tt xL4eCmA5GBioT3sgyC1uNF i0QLwtHWVceKQ9nfK4XWXy qVHeN4XzbN9hTRYmBL9pwn t8n8pcKQG4OOmiSEFgSbD6 lkO4EOWorOFlBWPotWdcZX ish348YYF1WqOaZNCfl2Wr I7EllYrmT37nrNxpP50oMO KwfTboqT0zkHfinG6mJoNq IkDfJPlljQlvUK1zTLOuU2 wctUOmDIRvYMAeG4zdDwRv oB8vrAkrYTtztcAeJCHhEj q8JEOkvTQsMGRcZnu8HHVk LJXfV23tyancZHW7qI9mi4 qlm9KcDXuoNXQ0JVSsf20c BWvxqhV1YZsgCe45AImxJD Y5BNrxHIT1sY== CPT Code(s) (test code x0hwwQYoTXAcpOAeUOFeTU = 3357) bjyzVgRMUuhWUwE6Ndivsl QFfcEC7iVA1njGsxdGLblP LjTEKxQeRac1fgx691xDVv h8xzUIRXzdnrwNs1tAqrH9 5ct4N4CbmvA08pmWEyHXW8 LHSdOQWqmEBdSWFwTMS0PT JkkFWvW6bwEQSiBE8bpirg IFtrQYtbZFHxdUE1IDNznX QeN2ReQXClEKhqSGWrcyq2 XcZnGa6ydBZagAtyQWkpEN JkXHBsYWluXGZzMjAgODgx QsKpYWz1ZzK2JKVchx9= CLINICAL DATA (test p5lnjSHjFOJzjFHpBJIzLW code = 3355) hoowWlHBBkmUBxP9Uehevc YFgeFI8wRM4ajMoqdGVrwR WkBLTsWdRgu7tyk193nENx v9qfKKHYgblqnHk4zObiO8 9js3T1DolyY49soCXmBKM5 NTAfTALfuAZyNUKxBJS0OQ WsjGSzG6lgJONmPO4ympoa KWeiRPpjDCZxzJE3EKSylX DiM7VoZKTeHAonXOKxzhp2 DuWwGb2noYTzcWldSTgaXY JkXHBsYWluXGZzMjAgNTgg fH0qEbg+Rlx+t6b1uLQURQ IMSIQodwEue2Ozjzqnw7vr KBBaPXWzliJwFXN2ahWDL2 fho3m6wNH4vBOtyfNkDBZm LMOiiS1tUV8wYKGOGAXiOL luIHggNCBkYXlzIGFuZCB3 MGZdNt36eoRslB3lrJH2TT Kvl4ckiDyzNGMqMCKur30y OKObONXhcyKvoR8gPNO7e4 LvpXddY4Cak4flDD8vhC7j sOOodAKjgQPib24pyA6fZ4 jnAneptTj1vyH0taSan5Aa cwVvGQN4ncUSQ1dRUvEzg3 IsBFmHDf6yleykUEL2 SPECIMEN SOURCE (test j7vjkNAoBFYnxASyTDJeLO code = 3377) qtunAkRNIofGSjN0Ydviqz TIfmPN1sFE9acJkpsAHdiI LdWVMiWfVvc8xlr888kCYm o8akHCDOrehpzHx1iRseL4 6bs5S0BckcY91vjYYcYWR1 FUSgNCVlmVJhDPGpDIH8MQ RpeWFpO4uuPQKuKT0siyxi IJzkASvaPDRixKH1OUAmvA MwG6HrPERdCYwdLKTxrnf6 FhDnFp3qvAEzeKhlRLbhQZ JkXHBsYWluXGZzMjAgTFlN JUwhSs2DHLyjDNlCEMXyBP GVMpwzEX2IRVZXRINBH3LB WSBGTkFccGFyfQ== GROSS DESCRIPTION (test n1xzqLQjWZWpzKLGCHWcTN code = [id number]) GqKD7jzPclwKh6pYoiADIc ldM2lPPwROygg6hhCED1e4 mddaFBFuzvQYWaJC3vEPns ZYBoIT2pPzCzTIMaFiTsFJ BhcGVydzEyMjQwXHBhcGVy cWX5LYDvRY8qpdjqMFibCY gpKKGtvaR6JTFzeABuH6Pw QKYnQF1xbvmmSJO9IWRADb fbBg3pdXKujVheZeRpFeTc YXJzZXQwXGZuaWwgQXJpYW v8jH4RCjsvDQM1BPNARwxm FoeflJiex1HwkGVyYVBjYI xcaWQgNTEwMDAgXFxkYiBP QcInUdK4ZINvTlP2LnI0CY k9LAJUUPJtYOQhFxJhLJY4 VEk3EFCeGL2vOQfszIRpMU vfVonrYSyoF252AWnaZJMd N9SqL1UzKVvrLbCsTXgmYS NbUZQeKKveWFMgK0CZWBZl WIFoDKS2DYQsDMz1UZhuK1 CDYUPpBBRmCfohFpY2KbT6 NBp9TUNVMj3nLgw0LGe1SG I9NKV1LIt4IBwrrYQoWJqm q4IyGvHpJKEzAWtrsjC1VB ZfwtGtDLbpwWmyoH4fSuBg HqZXQvQArT8biHMPk8VuDE ZtnzGPGdqjVXNiBK2QZOTu JUrtERMnMlAjiBIoS6tdKP OvG05ax3GEm5ZhOC9SUAw3 kbVpysldaF2zSMVhnpXiLL pcZnMyMCBSZWNlaXZlZCAx GJFnpKUmnO0eJ1o6j0PlM5 ggcmVkOyBwcmVwYXJlZCA0 JQR6pI5psUvwopkuB6UjsT TosG2kcnSzEOXcIRonQDot KANdc4RkMMZgULOxZKCxjx Qqx9ZmWGlztdEojPXiXXmo NSBvbiAzLzIxLzIwMjMpXH BhciANClxzYTMwXGVwaWNY v0EqLGRONxpikLdjNfHhbQ MxPiY9UWZsqOWgUZG6KU0t cKomQSCbO4KjB9KmvkQ5MK ChmlGIZlusUVAbFE5ZXMMa MjIgDQp9 MICROSCOPIC DESCRIPTION p1pdcXVxFXIdnOGbRZFlVU (test code = 3371) pgnwNfRQBmoVCmX9Oqoldb IBxrJK5zZK4reWnqxUPujY GzPYFgNgYuk4ncy443eKSw y3zjCUZCkkafwFg4yUodT8 1cf5D7ZpjnW23iiYTlIPR1 OMZzFFPktZWuKEUvCOQ1WR XmhLHdM1huCSUdLJ1sopbq MVzjWIibBJMyoUB4NBIylN YaK9KwLYUqCCrgGTGcfsv0 EqMpOz7axSXitNvqARfxIQ JkXHBsYWluXGZzMjAgUGVy Ve8edYHsNzyqXQIxkYCbMI xwYXJ9 Gross assessment was [facility] performed at ([facility], = 2777) Department of Pathology, [address] [place] [address], Technical component was [facility] performed at ([facility], = 2778) Department of Pathology, [address] [place] [id number], Professional component [facility] was performed at ([facility], code = 2779) Department of Pathology, [address] [place] [address], [facility] ASPIR[facility] BY [id number] 09:58:30Medical Cytology Report Case: [id number] Authorizing Provider: Arcenio Lazo Collected: 11/30/2022 08:48 AM Ordering Location: [address] Received: 11/30/2022 03:09 PM Service Pathologist: Simon Corona MD Specimen: Lymph Node, liver, marguerite-portal lymph node biopsy via FNA LYMPH NODE, LIVER MARGUERITE-PORTAL, BIOPSY VIA FNA (CYTOSPINS AND CELL BLOCK): - NEGATIVE FOR MALIGNANT CELLS. - SCANT LYMPHOID TISSUE. Signing Pathologist Direct Phone Line: [phone] signed by Simon Corona MD on 12/01/2022 at 9:58 [id number], [id number] y.o. F with BISHOP cirrhosis, who presented to OSH with upper back pain and RLQ pain x 4 days and was found to have colitis and concern for cholecystitis/choledocholithiasis on imaging, thus transferred to [facility] for HLOC. LYMPH NODE, LIVER, MARGUERITE-PORTAL BIOPSY FNAA. Lymph NodeReceived 15 mls in cytorich red; prepared 4 cytospins, cell block (A2) (cellblock placed in formalin at 15:35 on 11/30/2022)Performed.[facility], Department of Pathology, [address] [place] [id number], [facility], Department of Pathology, [address] [place] [address], [facility], Department of Pathology, [address] [place] [address], HLUCRTCYQMGUB METABOLIC [id number] 05:09:17 Test Item Value Reference Range Interpretation Comments TOTAL PROTEIN 6.3 gm/dL 6.0-8.3 (BEAKER) (test code = 770) ALBUMIN (BEAKER) 2.3 g/dL 3.5-5.0 L (test code = 1145) ALKALINE 75 U/L 40-150 PHOSPHATASE (BEAKER) (test code = 346) BILIRUBIN TOTAL 1.6 mg/dL 0.2-1.2 H (BEAKER) (test code = 377) SODIUM (BEAKER) 138 meq/L 136-145 (test code = 381) POTASSIUM (BEAKER) 4.8 meq/L 3.5-5.1 (test code = 379) CHLORIDE (BEAKER) 111 meq/L 98-107 H (test code = 382) CO2 (BEAKER) (test 21 meq/L 22-29 L code = 355) BLOOD UREA 11 mg/dL 7-21 NITROGEN (BEAKER) (test code = 354) CREATININE 0.79 mg/dL 0.57-1.25 (BEAKER) (test code = 358) GLUCOSE RANDOM 119 mg/dL 70-105 H (BEAKER) (test code = 652) CALCIUM (BEAKER) 7.2 mg/dL 8.4-10.2 L (test code = 697) AST (SGOT) 50 U/L 5-34 H (BEAKER) (test code = 353) ALT (SGPT) 36 U/L 6-55 (BEAKER) (test code = 347) EGFR (BEAKER) 87 Interpretatio n of eGFR (test code = 1092) mL/min/1.[address] age Description sq m Result G1 [place] l or high >=90 G2 Mildly decreased 60-89 G3a Mildl y to moderately 45-5 9 G3b Moderately to s everely 30-44 G4 Severl y decreased 15-29 G5 Kidney failure <15Reported eGF R is based on the CKD-EPI 2020 equation that d oes not use a race coefficientEsti mated GFR is not as accur ate as Creatinine Carol moiz in predicting glom erular filtration rate . Estimated GFR is not appl icable for dialysis patien ts Vice President Of Development ID - STANLEY WCBC (HEMOGRAM ONLY)2022-12-01 04:18:12 Test Item Value Reference Range Interpretation Comments WHITE BLOOD CELL COUNT (BEAKER) 5.3 K/ L 3.5-10.5 (test code = 775) RED BLOOD CELL COUNT (BEAKER) 3.48 M/ L 3.93-5.22 L (test code = 761) HEMOGLOBIN (BEAKER) (test code = 11.9 GM/DL 11.2-15.7 410) HEMATOCRIT (BEAKER) (test code = 35.3 % 34.1-44.9 411) MEAN CORPUSCULAR VOLUME (BEAKER) 101 fL 79-95 H (test code = 753) MEAN CORPUSCULAR HEMOGLOBIN 34.2 pg 25.6-32.2 H (BEAKER) (test code = 751) MEAN CORPUSCULAR HEMOGLOBIN CONC 33.7 GM/DL 32.2-35.5 (BEAKER) (test code = 752) RED CELL DISTRIBUTION WIDTH 15.5 % 11.7-14.4 H (BEAKER) (test code = 412) PLATELET COUNT (BEAKER) (test code 64 K/CU MM 150-450 L = 756) MEAN PLATELET VOLUME (BEAKER) 10.9 fL 9.4-12.3 (test code = 754) NUCLEATED RED BLOOD CELLS (BEAKER) 0 /100 WBC 0-0 (test code = 413) Fine Needle [id number] 17:00:24 Test Item Value Reference Range Interpretation Comments Cytology (test code = See Separate Report 262) [facility] [id number] 17:00:24 Test Item Value Reference Range Interpretation Comments Cytology (test code = See Separate Report 2627) [facility] [id number] 17:00:24 Test Item Value Reference Range Interpretation Comments Cytology (test code = See Separate Report 2629) [facility] ASPIR[facility] (FNA) [id number] 17:00:24 Test Item Value Reference Range Interpretation Comments CYTOLOGY RESULT POINTER See Separate Report (BEAKER) (test code = 2629) FL, FLUORO, NON-SPECIFIC, UP TO 1 [id number] 09:10:00Reason for exam:->[facility]ith[facility] : 1965 Sex: FAn imaging unit was utilized for this procedure. No radiologist interpretation was requested. Refer to the EMR for findings. Refer to PACS for any patient radiation dose information.COMPREHENSIVE METABOLIC [id number] 04:50:44 Test Item Value Reference Range Interpretation Comments TOTAL PROTEIN 6.5 gm/dL 6.0-8.3 (BEAKER) (test code = 770) ALBUMIN (BEAKER) 2.3 g/dL 3.5-5.0 L (test code = 1145) ALKALINE 124 U/L 40-150 PHOSPHATASE (BEAKER) (test code = 346) BILIRUBIN TOTAL 1.5 mg/dL 0.2-1.2 H (BEAKER) (test code = 377) SODIUM (BEAKER) 140 meq/L 136-145 (test code = 381) POTASSIUM (BEAKER) 4.4 meq/L 3.5-5.1 (test code = 379) CHLORIDE (BEAKER) 111 meq/L 98-107 H (test code = 382) CO2 (BEAKER) (test 24 meq/L 22-29 code = 355) BLOOD UREA 9 mg/dL 7-21 NITROGEN (BEAKER) (test code = 354) CREATININE 0.73 mg/dL 0.57-1.25 (BEAKER) (test code = 358) GLUCOSE RANDOM 92 mg/dL 70-105 (BEAKER) (test code = 652) CALCIUM (BEAKER) 8.4 mg/dL 8.4-10.2 (test code = 697) AST (SGOT) 61 U/L 5-34 H (BEAKER) (test code = 353) ALT (SGPT) 38 U/L 6-55 (BEAKER) (test code = 347) EGFR (BEAKER) 95 Interpretatio n of eGFR (test code = 1092) mL/min/1.[address] age Description sq m Result G1 [place] l or high >=90 G2 Mildly decreased 60-89 G3a Mild ly to moderately 45-5 9 G3b Moderately to s everely 30-44 G4 Severl y decreased 15-29 G5 Kidney failure <15Reported eGF R is based on the CKD-EPI 2020 equation that d oes not use a race coefficientEsti mated GFR is not as accur ate as Creatinine Carol moiz in predicting glom erular filtration rate . Estimated GFR is not appl icable for dialysis patien ts Vice President Of Development ID - MARCOPROTHROMBIN TIME/[id number] 04:28:12 Test Item Value Reference Range Interpretation Comments PROTIME (BEAKER) (test code = 20.0 seconds 11.9-14.2 H 759) INR (BEAKER) (test code = 370) 1.82 <=5.90 RECOMMENDED COUMADIN/WARFARIN INR THERAPY RANGESSTANDARD DOSE: 2.0 - 3.0 Includes: PROPHYLAXIS for venous thrombosis, systemic embolization; TREATMENT for venous thrombosis and/or pulmonary embolus.HIGH RISK: Target INR is 2.5-3.5 for patients with mechanical heart valves.CBC (HEMOGRAM ONLY)2022-11-30 04:18:06 Test Item Value Reference Range Interpretation Comments WHITE BLOOD CELL COUNT (BEAKER) 5.1 K/ L 3.5-10.5 (test code = 775) RED BLOOD CELL COUNT (BEAKER) 3.67 M/ L 3.93-5.22 L (test code = 761) HEMOGLOBIN (BEAKER) (test code = 12.6 GM/DL 11.2-15.7 410) HEMATOCRIT (BEAKER) (test code = 37.8 % 34.1-44.9 411) MEAN CORPUSCULAR VOLUME (BEAKER) 103 fL 79-95 H (test code = 753) MEAN CORPUSCULAR HEMOGLOBIN 34.3 pg 25.6-32.2 H (BEAKER) (test code = 751) MEAN CORPUSCULAR HEMOGLOBIN CONC 33.3 GM/DL 32.2-35.5 (BEAKER) (test code = 752) RED CELL DISTRIBUTION WIDTH 15.4 % 11.7-14.4 H (BEAKER) (test code = 412) PLATELET COUNT (BEAKER) (test code 70 K/CU MM 150-450 L = 756) MEAN PLATELET VOLUME (BEAKER) 10.4 fL 9.4-12.3 (test code = 754) NUCLEATED RED BLOOD CELLS (BEAKER) 0 /100 WBC 0-0 (test code = 413) PROTHROMBIN [id number] 23:20:55 Test Item Value Reference Range Interpretation Comments PROTIME (BEAKER) (test code = 19.4 seconds 11.9-14.2 H 759) INR (BEAKER) (test code = 370) 1.75 <=5.90 RECOMMENDED COUMADIN/WARFARIN INR THERAPY RANGESSTANDARD DOSE: 2.0 - 3.0 Includes: PROPHYLAXIS for venous thrombosis, systemic embolization; TREATMENT for venous thrombosis and/or pulmonary embolus.HIGH RISK: Target INR is 2.5-3.5 for patients with mechanical heart valves.COMPREHENSIVE METABOLIC PANEL 2022-11-29 14:05:13 Test Item Value Reference Range Interpretation Comments TOTAL PROTEIN 5.8 gm/dL 6.0-8.3 L Specimen sligh tly (BEAKER) (test hemolyzed code = 770) ALBUMIN (BEAKER) 2.3 g/dL 3.5-5.0 L Specimen sl ightly (test code = 1145) hemolyzed ALKALINE 89 U/L 40-150 PHOSPHATASE (BEAKER) (test code = 346) BILIRUBIN TOTAL 1.2 mg/dL 0.2-1.2 Specimen sli ghtly (BEAKER) (test hemolyzed code = 377) SODIUM (BEAKER) 141 meq/L 136-145 (test code = 381) POTASSIUM (BEAKER) 4.1 meq/L 3.5-5.1 Specimen slightly (test code = 379) hemolyzed CHLORIDE (BEAKER) 110 meq/L 98-107 H (test code = 382) CO2 (BEAKER) (test 23 meq/L 22-29 code = 355) BLOOD UREA 9 mg/dL 7-21 NITROGEN (BEAKER) (test code = 354) CREATININE 0.74 mg/dL 0.57-1.25 Specimen slight ly (BEAKER) (test hemolyzed code = 358) GLUCOSE RANDOM 81 mg/dL 70-105 (BEAKER) (test code = 652) CALCIUM (BEAKER) 7.5 mg/dL 8.4-10.2 L (test code = 697) AST (SGOT) 56 U/L 5-34 H Specimen slight ly (BEAKER) (test hemolyzed code = 353) ALT (SGPT) 32 U/L 6-55 Specimen slight ly (BEAKER) (test hemolyzed code = 347) EGFR (BEAKER) 94 Interpretatio n of eGFR (test code = 1092) mL/min/1.[address] age Description sq m Result G1 [place] l or high >=90 G2 Mildly decreased 60-89 G3a Mildl y to moderately 45-5 9 G3b Moderately to s everely 30-44 G4 Severl y decreased 15-29 G5 Kidney failure <15Reported eGF R is based on the CKD-EPI 2021 equation that d oes not use a race coefficientEsti mated GFR is not as accur ate as Creatinine Carol rockwell in predicting glom erular filtration rate . Estimated GFR is not appl icable for dialysis patien ts HEPATOBILIARY IMAGING W/ [id number] 12:22:00Unlisted Reason for Exam - Click Yes and Enter Reason Below->YesUnlisted Reason for Exam->?chronic cholecystitis with dilated GBReason for exam:->?chronic [facility]olecystitis with [facility] : 1965 Sex: FFINAL REPORT PROCEDURE: HEPATOBILIARY SCAN with Sincalide Infusion CPT CODE: 79592 INDICATION: 57-year-old female, chronic cholecystitis with dilated gallbladder? TECHNIQUE: 5.5 mCi of Tc-99m mebrofenin was injected intravenously. Images of the upper abdomen were obtained for approximately 60 minutes after tracer injection. 2.3 micrograms (0.02 ugm/kg) of sincalide was then infused int ravenously over approximately 60 minutes with continuous imaging during the infusion. FINDINGS:Homogeneous uptake within the liver with subsequent clearance. There is good visualization of the extrahepatic biliary duct and the gallbladder, and the tracer appears appropriately in the small bowel. Following injection of sincalide, serial images show good emptying of gallbladder contents into the small bowel. There is 78% emptying of the gallbladder. IMPRESSION:Normal gallbladder filling and emptying in response to sincalide stimulation. Signed: Marcos Muller Verified Date/Time: 11/29/2022 12:22 :52 CBC (HEMOGRAM ONLY)2022-11-29 05:09:32 Test Item Value Reference Range Interpretation Comments WHITE BLOOD CELL COUNT (BEAKER) 3.7 K/ L 3.5-10.5 (test code = 775) RED BLOOD CELL COUNT (BEAKER) 3.40 M/ L 3.93-5.22 L (test code = 761) HEMOGLOBIN (BEAKER) (test code = 11.6 GM/DL 11.2-15.7 410) HEMATOCRIT (BEAKER) (test code = 34.4 % 34.1-44.9 411) MEAN CORPUSCULAR VOLUME (BEAKER) 101 fL 79-95 H (test code = 753) MEAN CORPUSCULAR HEMOGLOBIN 34.1 pg 25.6-32.2 H (BEAKER) (test code = 751) MEAN CORPUSCULAR HEMOGLOBIN CONC 33.7 GM/DL 32.2-35.5 (BEAKER) (test code = 752) RED CELL DISTRIBUTION WIDTH 15.0 % 11.7-14.4 H (BEAKER) (test code = 412) PLATELET COUNT (BEAKER) (test code 59 K/CU MM 150-450 L = 756) MEAN PLATELET VOLUME (BEAKER) 10.4 fL 9.4-12.3 (test code = 754) NUCLEATED RED BLOOD CELLS (BEAKER) 0 /100 WBC 0-0 (test code = 413) COMPREHENSIVE METABOLIC [id number] 01:32:49 Test Item Value Reference Range Interpretation Comments TOTAL PROTEIN 5.8 gm/dL 6.0-8.3 L (BEAKER) (test code = 770) ALBUMIN (BEAKER) 2.1 g/dL 3.5-5.0 L (test code = 1145) ALKALINE 77 U/L 40-150 PHOSPHATASE (BEAKER) (test code = 346) BILIRUBIN TOTAL 1.6 mg/dL 0.2-1.2 H (BEAKER) (test code = 377) SODIUM (BEAKER) 139 meq/L 136-145 (test code = 381) POTASSIUM (BEAKER) 3.7 meq/L 3.5-5.1 (test code = 379) CHLORIDE (BEAKER) 111 meq/L 98-107 H (test code = 382) CO2 (BEAKER) (test 22 meq/L 22-29 code = 355) BLOOD UREA 13 mg/dL 7-21 NITROGEN (BEAKER) (test code = 354) CREATININE 0.82 mg/dL 0.57-1.25 (BEAKER) (test code = 358) GLUCOSE RANDOM 86 mg/dL 70-105 (BEAKER) (test code = 652) CALCIUM (BEAKER) 7.7 mg/dL 8.4-10.2 L (test code = 697) AST (SGOT) 50 U/L 5-34 H (BEAKER) (test code = 353) ALT (SGPT) 34 U/L 6-55 (BEAKER) (test code = 347) EGFR (BEAKER) 83 Interpretatio n of eGFR (test code = 1092) mL/min/1.[address] age Description sq m Result G1 [place] l or high >=90 G2 Mildly decreased 60-89 G3a Mild ly to moderately 45-5 9 G3b Moderately to s everely 30-44 G4 Severl y decreased 15-29 G5 Kidney failure <15Reported eGF R is based on the CKD-EPI 2020 equation that d oes not use a race coefficientEsti mated GFR is not as accur ate as Creatinine Carol rockwell in predicting glom erular filtration rate . Estimated GFR is not appl icable for dialysis patien ts Vice President Of Development ID - DBCBC (HEMOGRAM ONLY)2022-11-28 01:07:42 Test Item Value Reference Range Interpretation Comments WHITE BLOOD CELL COUNT (BEAKER) 4.1 K/ L 3.5-10.5 (test code = 775) RED BLOOD CELL COUNT (BEAKER) 3.36 M/ L 3.93-5.22 L (test code = 761) HEMOGLOBIN (BEAKER) (test code = 11.6 GM/DL 11.2-15.7 410) HEMATOCRIT (BEAKER) (test code = 34.0 % 34.1-44.9 L 411) MEAN CORPUSCULAR VOLUME (BEAKER) 101 fL 79-95 H (test code = 753) MEAN CORPUSCULAR HEMOGLOBIN 34.5 pg 25.6-32.2 H (BEAKER) (test code = 751) MEAN CORPUSCULAR HEMOGLOBIN CONC 34.1 GM/DL 32.2-35.5 (BEAKER) (test code = 752) RED CELL DISTRIBUTION WIDTH 15.1 % 11.7-14.4 H (BEAKER) (test code = 412) PLATELET COUNT (BEAKER) (test code 57 K/CU MM 150-450 L = 756) MEAN PLATELET VOLUME (BEAKER) 10.7 fL 9.4-12.3 (test code = 754) NUCLEATED RED BLOOD CELLS (BEAKER) 1 /100 WBC 0-0 H (test code = 413) Urine [id number] 10:01:17 Test Item Value Reference Range Interpretation Comments Result (test code = See comment 6463-4) EDILBERTO (test code = EDILBERTO) <10,000 col/mL Gram negative rods<10,000 col/mL skin eduardo [facility] [id number] 10:01:17 Test Item Value Reference Range Interpretation Comments Result (test code = See comment 6463-4) EDILBERTO (test code = EDILBERTO) <10,000 col/mL Gram negative rods<10,000 col/mL skin eduardo [facility] [id number] 10:01:17 Test Item Value Reference Range Interpretation Comments Result (test code = See comment 6463-4) EDILBERTO (test code = EDILBERTO) <10,000 col/mL Gram negative rods<10,000 col/mL skin eduardo [facility]PRE[facility]IVE MET[facility]OLIC [id number] 06:17:40 Test Item Value Reference Range Interpretation Comments TOTAL PROTEIN 6.5 gm/dL 6.0-8.3 (BEAKER) (test code = 770) ALBUMIN (BEAKER) 2.4 g/dL 3.5-5.0 L (test code = 1145) ALKALINE 73 U/L 40-150 PHOSPHATASE (BEAKER) (test code = 346) BILIRUBIN TOTAL 2.2 mg/dL 0.2-1.2 H (BEAKER) (test code = 377) SODIUM (BEAKER) 140 meq/L 136-145 (test code = 381) POTASSIUM (BEAKER) 3.6 meq/L 3.5-5.1 (test code = 379) CHLORIDE (BEAKER) 111 meq/L 98-107 H (test code = 382) CO2 (BEAKER) (test 23 meq/L 22-29 code = 355) BLOOD UREA 15 mg/dL 7-21 NITROGEN (BEAKER) (test code = 354) CREATININE 0.77 mg/dL 0.57-1.25 (BEAKER) (test code = 358) GLUCOSE RANDOM 75 mg/dL 70-105 (BEAKER) (test code = 652) CALCIUM (BEAKER) 8.0 mg/dL 8.4-10.2 L (test code = 697) AST (SGOT) 53 U/L 5-34 H (BEAKER) (test code = 353) ALT (SGPT) 37 U/L 6-55 (BEAKER) (test code = 347) EGFR (BEAKER) 89 Interpretatio n of eGFR (test code = 1092) mL/min/1.[address] age Description sq m Result G1 [place] l or high >=90 G2 Mildly decreased 60-89 G3a Mildl y to moderately 45-5 9 G3b Moderately to s everely 30-44 G4 Severl y decreased 15-29 G5 Kidney failure <15Reported eGF R is based on the CKD-EPI 2020 equation that d oes not use a race coefficientEsti mated GFR is not as accur ate as Creatinine Carol rockwell in predicting glom erular filtration rate . Estimated GFR is not appl icable for dialysis patien ts Vice President Of Development ID - MARCOSpecimen slightly ictericCBC (HEMOGRAM ONLY)2022-11-27 05:23:55 Test Item Value Reference Range Interpretation Comments WHITE BLOOD CELL COUNT (BEAKER) 4.9 K/ L 3.5-10.5 (test code = 775) RED BLOOD CELL COUNT (BEAKER) 3.85 M/ L 3.93-5.22 L (test code = 761) HEMOGLOBIN (BEAKER) (test code = 13.0 GM/DL 11.2-15.7 410) HEMATOCRIT (BEAKER) (test code = 38.7 % 34.1-44.9 411) MEAN CORPUSCULAR VOLUME (BEAKER) 101 fL 79-95 H (test code = 753) MEAN CORPUSCULAR HEMOGLOBIN 33.8 pg 25.6-32.2 H (BEAKER) (test code = 751) MEAN CORPUSCULAR HEMOGLOBIN CONC 33.6 GM/DL 32.2-35.5 (BEAKER) (test code = 752) RED CELL DISTRIBUTION WIDTH 15.0 % 11.7-14.4 H (BEAKER) (test code = 412) PLATELET COUNT (BEAKER) (test code 61 K/CU MM 150-450 L = 756) MEAN PLATELET VOLUME (BEAKER) 11.1 fL 9.4-12.3 (test code = 754) NUCLEATED RED BLOOD CELLS (BEAKER) 0 /100 WBC 0-0 (test code = 413) MR, ABDOMEN, [id number] 10:22:00Unlisted Reason for Exam - Click Yes and Enter Reason Below->YesUnlisted Reason for Exam->evaluate for choledocholithiasis [facility] : 1965 Sex: FFINAL REPORT MRCP, MRI of abdomen without contrast Clinical History: Unlisted Reasonfor Examevaluate for choledocholithiasis Technique: Multiplanar and multisequence MR images of the biliary system are obtained, with dedicated MRCP protocol and images. No intravenous contrast is administered. In addition, 3 dimensional reformatted images of the biliary system are obtained to evaluate the biliary anatomy. Comparison: Ultrasound dated November 25, 2022 Discussion: This examination is notdedicated to evaluating masses or parenchymal abnormalities of the abdominal organs. Liver is cirrhotic. No discrete liver lesion is identified on this noncontrast exam. There are multiple stones within the gallbladder. Gallbladder wall edema is nonspecific in the setting of cirrhosis. No evidence of biliary ductal dilatation. CBD measures approximately 3 to 4 mm in diameter. No ductal filling defector stricture is identified. Spleen is enlarged and measures 17.8 cm sagittally. The pancreas, adrenal glands appear unremarkable. No renal masses identified on this noncontrast study. No hydronephrosis. No lymphadenopathy. Mildly thickened bowel wall could be related to portal hypertension. There is asmall amount of ascites. No suspicious bony lesion. Impression: Cholelithiasis. Gallbladder wall is edematous, but this is a nonspecific finding the setting of cirrhosis. If there is strong clinical con cern for acute cholecystitis, suggest correlation with HIDA scan. Cirrhosis and splenomegaly. Small amount of ascites. Mildly thickened bowel wall could be related to portal hypertension, correlate clinically to exclude enterocolitis. Signed: Manish Pandaort Verified Date/Time: 11/26/2022 10:22:09 Reading Location: [facility] [id number] [facility] Consult Reading Room Electronically signed by: MANISH PANDA M.D. on11/26/2022 10:22 AMBASIC METABOLIC [id number] 06:05:16 Test Item Value Reference Range Interpretation Comments SODIUM (BEAKER) 138 meq/L 136-145 (test code = 381) POTASSIUM 3.5 meq/L 3.5-5.1 (BEAKER) (test code = 379) CHLORIDE (BEAKER) 111 meq/L 98-107 H (test code = 382) CO2 (BEAKER) 24 meq/L 22-29 (test code = 355) BLOOD UREA 21 mg/dL 7-21 NITROGEN (BEAKER) (test code = 354) CREATININE 0.76 mg/dL 0.57-1.25 (BEAKER) (test code = 358) GLUCOSE RANDOM 80 mg/dL 70-105 (BEAKER) (test code = 652) CALCIUM (BEAKER) 7.6 mg/dL 8.4-10.2 L (test code = 697) EGFR (BEAKER) 91 Interpretatio n of eGFR (test code = mL/min/1.[address] De scription 1092) sq m Result G1 [place] l or high >=90 G2 Mildly decreased 60-89 G3a Mildl y to moderately 45-5 9 G3b Moderately to s everely 30-44 G4 Sever ly decreased 15-29 G5 Kidney failure <15Repo rted eGFR is based on the CKD-EPI 2020 equation t hat does not use a race coefficientEsti mated GFR is not as accur ate as Creatinine Carol rockwell in predicting glom erular filtration rate . Estimated GFR is not appl icable for dialysis patien ts Vice President Of Development ID - VEENAOSpecimen slightly ictericHEPATIC FUNCTION [id number] 06:04:28 Test Item Value Reference Range Interpretation Comments TOTAL PROTEIN (BEAKER) (test code = 5.6 gm/dL 6.0-8.3 L 770) ALBUMIN (BEAKER) (test code = 1145) 2.1 g/dL 3.5-5.0 L BILIRUBIN TOTAL (BEAKER) (test code 2.1 mg/dL 0.2-1.2 H = 377) BILIRUBIN DIRECT (BEAKER) (test 1.0 mg/dL 0.1-0.5 H code = 706) ALKALINE PHOSPHATASE (BEAKER) (test 63 U/L 40-150 code = 346) AST (SGOT) (BEAKER) (test code = 46 U/L 5-34 H 353) ALT (SGPT) (BEAKER) (test code = 33 U/L 6-55 347) Vice President Of Development ID - MARIOSpecimen slightly ictericPROTHROMBIN TIME/[id number] 05:52:20 Test Item Value Reference Range Interpretation Comments PROTIME (BEAKER) (test code = 22.8 seconds 11.9-14.2 H 759) INR (BEAKER) (test code = 370) 2.17 <=5.90 RECOMMENDED COUMADIN/WARFARIN INR THERAPY RANGESSTANDARD DOSE: 2.0 - 3.0 Includes: PROPHYLAXIS for venous thrombosis, systemic embolization; TREATMENT for venous thrombosis and/or pulmonary embolus.HIGH RISK: Target INR is 2.5-3.5 for patients with mechanical heart valves.CBC W/PLT COUNT & AUTO [id number] 05:33:16 Test Item Value Reference Range Interpretation Comments WHITE BLOOD CELL COUNT (BEAKER) 4.6 K/ L 3.5-10.5 (test code = 775) RED BLOOD CELL COUNT (BEAKER) 3.32 M/ L 3.93-5.22 L (test code = 761) HEMOGLOBIN (BEAKER) (test code = 11.4 GM/DL 11.2-15.7 410) HEMATOCRIT (BEAKER) (test code = 33.6 % 34.1-44.9 L 411) MEAN CORPUSCULAR VOLUME (BEAKER) 101 fL 79-95 H (test code = 753) MEAN CORPUSCULAR HEMOGLOBIN 34.3 pg 25.6-32.2 H (BEAKER) (test code = 751) MEAN CORPUSCULAR HEMOGLOBIN CONC 33.9 GM/DL 32.2-35.5 (BEAKER) (test code = 752) RED CELL DISTRIBUTION WIDTH 15.5 % 11.7-14.4 H (BEAKER) (test code = 412) PLATELET COUNT (BEAKER) (test code 43 K/CU MM 150-450 L = 756) MEAN PLATELET VOLUME (BEAKER) 12.2 fL 9.4-12.3 (test code = 754) NUCLEATED RED BLOOD CELLS (BEAKER) 0 /100 WBC 0-0 (test code = 413) NEUTROPHILS RELATIVE PERCENT 59 % (BEAKER) (test code = 429) LYMPHOCYTES RELATIVE PERCENT 25 % (BEAKER) (test code = 430) MONOCYTES RELATIVE PERCENT 13 % (BEAKER) (test code = 431) EOSINOPHILS RELATIVE PERCENT 2 % (BEAKER) (test code = 432) BASOPHILS RELATIVE PERCENT 0 % (BEAKER) (test code = 437) NEUTROPHILS ABSOLUTE COUNT 2.73 K/ L 1.56-6.13 (BEAKER) (test code = 670) LYMPHOCYTES ABSOLUTE COUNT 1.15 K/ L 1.18-3.74 L (BEAKER) (test code = 414) MONOCYTES ABSOLUTE COUNT (BEAKER) 0.60 K/ L 0.24-0.36 H (test code = 415) EOSINOPHILS ABSOLUTE COUNT 0.11 K/ L 0.04-0.36 (BEAKER) (test code = 416) BASOPHILS ABSOLUTE COUNT (BEAKER) 0.02 K/ L 0.01-0.08 (test code = 417) IMMATURE GRANULOCYTES-RELATIVE 0.20 % 0.00-1.00 PERCENT (BEAKER) (test code = 2801) U/S, ABDOMINAL, [id number] 17:23:00Abdomen limited area? Add comment if clarification is needed.->Right upper quadrant Reason for exam:- >cholecystitis possible [facility]edocolithiasis [facility] : 1965 Sex: FFINAL REPORT U/S, ABDOMINAL, LIMITED CLINICAL HISTORY: cholecystitis possible choledocholithiasis COMPARISON: None. TECHNIQUE: Real time grayscale and color Doppler images of the right upper quadrant abdominal organs were obtained using a curved transducer. FINDINGS: Pancreas: Not wellvisualized due to overlying bowel gas. Liver: Coarsened in echotexture with nodular contour. Focal liver lesions: None sonographically detectable. Portal vein: Normal, hepatopetal flow. The main portalvein is at the upper limits of normal in diameter. Bile ducts: Normal in caliber. Gallbladder: The gallbladder is overdistended. Mild gallbladder wall thickening. Gallbladder stones and sludge. The sonographic Muniz's sign was negative however the patient has been medicated. Right kidney: No hydronephrosis. Ascites: Small volume. Visualized aorta and IVC: Unremarkable. MEASUREMENTS:Liver: 15.3 cm Common Duct: 5.8 mm Right Kidney: 11.9 cm Aorta: 2.9 cm proximally IMPRESSION: 1.Gallbladder stones andsludge and over distended gallbladder and mild gallbladder wall thickening. Correlate for any signs or symptoms of acute cholecystitis and consider HIDA scan correlation. 2.No biliary ductal dilation. 3.Cirrhosis and small volume ascites. Signed: Goldie Albrighteport Verified Date/Time: 11/25/2022 17:23:59 Urinalysis w/Microscopic + Reflex to [id number] 11:12:01 Test Item Value Reference Range Interpretation Comments Color, UA (test code Brown = 5778-6) Clarity, UA (test Cloudy code = 5767-9) Specific Ralph, UA 1.050 1.001-1.035 H (test code = 5811-5) pH, UA (test code = 6.0 5.0-8.0 5803-2) Protein, UA (test 200 mg/dL Negative A code = 20290-0) Glucose, UA (test Negative Negative code = 365) Ketones, UA (test Trace Negative A code = 2514-8) Bilirubin, UA (test Negative Negative code = 02479-7) Blood, UA (test code Large Negative A = 04744-9) Nitrite, UA (test Negative Negative code = 5802-4) Leukocytes, UA (test Small Negative A code = 5799-2) Urobilinogen, UA 2 0.2-1.0 H (test code = 69732-9) RBC, UA (test code = See_Comment [Autom ated 47236-4) message] The system which generated this result transmit joanna reference range : /HPF. The reference range was not used to interpret this result as normal/abnormal . WBC, UA (test code = 18 See_Comment [Autom ated 5821-4) message] The system which generated this result transmit joanna reference range : /HPF. The reference range was not used to interpret this result as normal/abnormal . Bacteria, UA (test Many code = 51478-8) Mucus (test code = Rare 8247-9) Squam Epithel, UA 10 See_Comment [Automate d (test code = 22711-1) messag e] The system which generated this result transmit joanna reference range : /HPF. The reference range was not used to interpret this result as normal/abnormal . Specimen Source (test code = 2795) EDILBERTO (test code = EDILBERTO) Vice President Of Development ID - tech Lab Interpretation Abnormal (test code = 78310-0) [facility] + Reflex to Culture 2022-11-25 11:12:01 Test Item Value Reference Range Interpretation Comments Color, UA (test code Brown = 5778-6) Clarity, UA (test Cloudy code = 5767-9) Specific Ralph, UA 1.050 1.001-1.035 H (test code = 5811-5) pH, UA (test code = 6.0 5.0-8.0 5803-2) Protein, UA (test 200 mg/dL Negative A code = 97210-9) Glucose, UA (test Negative Negative code = 365) Ketones, UA (test Trace Negative A code = 2514-8) Bilirubin, UA (test Negative Negative code = 66427-0) Blood, UA (test code Large Negative A = 37036-3) Nitrite, UA (test Negative Negative code = 5802-4) Leukocytes, UA (test Small Negative A code = 5799-2) Urobilinogen, UA 2 0.2-1.0 H (test code = 87569-4) RBC, UA (test code = See_Comment [Autom ated 80509-0) message] The system which generated this result transmit joanna reference range : /HPF. The reference range was not used to interpret this result as normal/abnormal . WBC, UA (test code = 18 See_Comment [Autom ated 5821-4) message] The system which generated this result transmit joanna reference range : /HPF. The reference range was not used to interpret this result as normal/abnormal . Bacteria, UA (test Many code = 25607-2) Mucus (test code = Rare 8247-9) Squam Epithel, UA 10 See_Comment [Automate d (test code = 27086-5) messag e] The system which generated this result transmit joanna reference range : /HPF. The reference range was not used to interpret this result as normal/abnormal . Specimen Source (test code = 2795) EDILBERTO (test code = EDILBERTO) Vice President Of Development ID - tech Lab Interpretation Abnormal (test code = 96937-8) [facility] + Reflex to Culture 2022-11-25 11:12:01 Test Item Value Reference Range Interpretation Comments Color, UA (test code Brown = 5778-6) Clarity, UA (test Cloudy code = 5767-9) Specific Ralph, UA 1.050 1.001-1.035 H (test code = 5811-5) pH, UA (test code = 6.0 5.0-8.0 5803-2) Protein, UA (test 200 mg/dL Negative A code = 21079-5) Glucose, UA (test Negative Negative code = 365) Ketones, UA (test Trace Negative A code = 2514-8) Bilirubin, UA (test Negative Negative code = 62731-5) Blood, UA (test code Large Negative A = 38096-0) Nitrite, UA (test Negative Negative code = 5802-4) Leukocytes, UA (test Small Negative A code = 5799-2) Urobilinogen, UA 2 0.2-1.0 H (test code = 74298-9) RBC, UA (test code = See_Comment [Autom ated 55837-7) message] The system which generated this result transmit joanna reference range : /HPF. The reference range was not used to interpret this result as normal/abnormal . WBC, UA (test code = 18 See_Comment [Autom ated 5821-4) message] The system which generated this result transmit joanna reference range : /HPF. The reference range was not used to interpret this result as normal/abnormal . Bacteria, UA (test Many code = 18692-2) Mucus (test code = Rare 8247-9) Squam Epithel, UA 10 See_Comment [Automate d (test code = 05981-8) messag e] The system which generated this result transmit joanna reference range : /HPF. The reference range was not used to interpret this result as normal/abnormal . Specimen Source (test code = 2795) EDILBERTO (test code = EDILBERTO) Vice President Of Development ID - tech Lab Interpretation Abnormal (test code = 20210-8) [facility]FLEX URINE [id number] 11:12:01 Test Item Value Reference Range Interpretation Comments COLOR (BEAKER) (test code = 470) Brown CLARITY (BEAKER) (test code = 469) Cloudy SPECIFIC GRAVITY UA (BEAKER) (test 1.050 1.001-1.035 H code = 468) PH UA (BEAKER) (test code = 467) 6.0 5.0-8.0 PROTEIN UA (BEAKER) (test code = 200 mg/dL Negative A 464) GLUCOSE UA (BEAKER) (test code = Negative Negative 365) KETONES UA (BEAKER) (test code = Trace Negative A 371) BILIRUBIN UA (BEAKER) (test code = Negative Negative 462) BLOOD UA (BEAKER) (test code = 461) Large Negative A NITRITE UA (BEAKER) (test code = Negative Negative 465) LEUKOCYTE ESTERASE UA (BEAKER) Small Negative A (test code = 466) UROBILINOGEN UA (BEAKER) (test code 2 0.2-1.0 H = 463) RBC UA (BEAKER) (test code = 519) > /HPF WBC UA (BEAKER) (test code = 520) 18 /HPF BACTERIA (BEAKER) (test code = 517) Many MUCUS (BEAKER) (test code = 1574) Rare SQUAMOUS EPITHELIAL (BEAKER) (test 10 /HPF code = 516) SOURCE(BEAKER) (test code = 2795) Vice President Of Development ID - techBILIRUBIN, [id number] 10:18:18 Test Item Value Reference Range Interpretation Comments BILIRUBIN DIRECT (BEAKER) (test 1.3 mg/dL 0.1-0.5 H code = 706) Vice President Of Development ID - HENRIQUE GPROTHROMBIN TIME/[id number] 07:19:55 Test Item Value Reference Range Interpretation Comments PROTIME (BEAKER) (test code = 22.4 seconds 11.9-14.2 H 759) INR (BEAKER) (test code = 370) 2.11 <=5.90 RECOMMENDED COUMADIN/WARFARIN INR THERAPY RANGESSTANDARD DOSE: 2.0 - 3.0 Includes: PROPHYLAXIS for venous thrombosis, systemic embolization; TREATMENT for venous thrombosis and/or pulmonary embolus.HIGH RISK: Target INR is 2.5-3.5 for patients with mechanical heart valves.COMPREHENSIVE METABOLIC PANEL 2022-11-25 07:10:51 Test Item Value Reference Range Interpretation Comments TOTAL PROTEIN 5.9 gm/dL 6.0-8.3 L (BEAKER) (test code = 770) ALBUMIN (BEAKER) 2.2 g/dL 3.5-5.0 L (test code = 1145) ALKALINE 66 U/L 40-150 PHOSPHATASE (BEAKER) (test code = 346) BILIRUBIN TOTAL 2.9 mg/dL 0.2-1.2 H (BEAKER) (test code = 377) SODIUM (BEAKER) 136 meq/L 136-145 (test code = 381) POTASSIUM (BEAKER) 3.9 meq/L 3.5-5.1 (test code = 379) CHLORIDE (BEAKER) 110 meq/L 98-107 H (test code = 382) CO2 (BEAKER) (test 20 meq/L 22-29 L code = 355) BLOOD UREA 18 mg/dL 7-21 NITROGEN (BEAKER) (test code = 354) CREATININE 0.83 mg/dL 0.57-1.25 (BEAKER) (test code = 358) GLUCOSE RANDOM 98 mg/dL 70-105 (BEAKER) (test code = 652) CALCIUM (BEAKER) 7.6 mg/dL 8.4-10.2 L (test code = 697) AST (SGOT) 49 U/L 5-34 H (BEAKER) (test code = 353) ALT (SGPT) 38 U/L 6-55 (BEAKER) (test code = 347) EGFR (BEAKER) 82 Interpretatio n of eGFR (test code = 1092) mL/min/1.[address] age Description sq m Result G1 [place] l or high >=90 G2 Mildly decreased 60-89 G3a Mildl y to moderately 45-5 9 G3b Moderately to s everely 30-44 G4 Severl y decreased 15-29 G5 Kidney failure <15Reported eGF R is based on the CKD-EPI 2020 equation that d oes not use a race coefficientEsti mated GFR is not as accur ate as Creatinine Carol rockwell in predicting glom erular filtration rate . Estimated GFR is not appl icable for dialysis patien ts Vice President Of Development ID - HENRIQUE GSpecimen slightly [id number] 07:09:53 Test Item Value Reference Range Interpretation Comments MAGNESIUM (BEAKER) (test code = 1.7 mg/dL 1.6-2.6 627) Vice President Of Development ID - HENRIQUE [id number] 07:09:53 Test Item Value Reference Range Interpretation Comments PHOSPHORUS (BEAKER) (test code = 3.8 mg/dL 2.3-4.7 604) Vice President Of Development ID - HENRIQUE GCBC W/PLT COUNT & AUTO [id number] 06:52:55 Test Item Value Reference Range Interpretation Comments WHITE BLOOD CELL COUNT (BEAKER) 8.1 K/ L 3.5-10.5 (test code = 775) RED BLOOD CELL COUNT (BEAKER) 3.44 M/ L 3.93-5.22 L (test code = 761) HEMOGLOBIN (BEAKER) (test code = 11.9 GM/DL 11.2-15.7 410) HEMATOCRIT (BEAKER) (test code = 34.7 % 34.1-44.9 411) MEAN CORPUSCULAR VOLUME (BEAKER) 101 fL 79-95 H (test code = 753) MEAN CORPUSCULAR HEMOGLOBIN 34.6 pg 25.6-32.2 H (BEAKER) (test code = 751) MEAN CORPUSCULAR HEMOGLOBIN CONC 34.3 GM/DL 32.2-35.5 (BEAKER) (test code = 752) RED CELL DISTRIBUTION WIDTH 15.3 % 11.7-14.4 H (BEAKER) (test code = 412) PLATELET COUNT (BEAKER) (test code 38 K/CU MM 150-450 L = 756) MEAN PLATELET VOLUME (BEAKER) 10.8 fL 9.4-12.3 (test code = 754) NUCLEATED RED BLOOD CELLS (BEAKER) 0 /100 WBC 0-0 (test code = 413) NEUTROPHILS RELATIVE PERCENT 75 % (BEAKER) (test code = 429) LYMPHOCYTES RELATIVE PERCENT 12 % (BEAKER) (test code = 430) MONOCYTES RELATIVE PERCENT 12 % (BEAKER) (test code = 431) EOSINOPHILS RELATIVE PERCENT 0 % (BEAKER) (test code = 432) BASOPHILS RELATIVE PERCENT 0 % (BEAKER) (test code = 437) NEUTROPHILS ABSOLUTE COUNT 6.03 K/ L 1.56-6.13 (BEAKER) (test code = 670) LYMPHOCYTES ABSOLUTE COUNT 1.00 K/ L 1.18-3.74 L (BEAKER) (test code = 414) MONOCYTES ABSOLUTE COUNT (BEAKER) 1.00 K/ L 0.24-0.36 H (test code = 415) EOSINOPHILS ABSOLUTE COUNT 0.01 K/ L 0.04-0.36 L (BEAKER) (test code = 416) BASOPHILS ABSOLUTE COUNT (BEAKER) 0.01 K/ L 0.01-0.08 (test code = 417) IMMATURE GRANULOCYTES-RELATIVE 0.20 % 0.00-1.00 PERCENT (BEAKER) (test code = 2801)
[2023-02-15 15:28] LABS: Lymphocytes % 14.9 % (15.3-44.8); MCV 104.3 fL (80-100); MPV 8.6 fL (7.6-11.3); RBC Red Blood Cell Count 3.45 M/uL (3.86-4.86)
[2023-02-15 15:38] LABS: Albumin 2.4 g/dL (3.4-5.0); Bilirubin Total 1.8 mg/dL (0.2-1.0); Potassium 5.3 mEq/L (3.5-5.1); Protein, Total 8.2 g/dL (6.4-8.2)
[2023-02-15 16:01] LABS: Specific Gravity 1.011 (1.005-1.030); Urine Bacteria >50 /HPF (<20); Urine Bilirubin NEGATIVE (Negative); Urine Blood 3+ (OVER) (Negative); Urine Clarity Extremely Turbid (Clear); Urine Color Light-Yellow (Yellow); Urine Glucose NEGATIVE (Negative); Urine Mucus Slight /HPF (None Seen); Urine Protein NEGATIVE (Negative); Urine RBC 21-50 /HPF (None Seen); Urine Urobilinogen Normal (Normal)
--- NOTE | 2023-02-15 16:23 | RAD REPORT ---
EXAM DESCRIPTION: CTAbdomen Pelvis W Contrast - 02/15/2023 4:08 pm CLINICAL HISTORY: Abdominal pain. ABD PAIN COMPARISON: Abdomen Pelvis W Contrast dated 11/24/2022 TECHNIQUE: Biphasic CT imaging of the abdomen and pelvis was performed with 100 ml non-ionic IV cont rast. All CT scans are performed using dose optimization technique as appropriate and may include automated exposure control or mA/KV adjustment according to patient size. FINDINGS: Small left pleural effusion with atelectasis in the left lung base. Diffuse cirrhotic appearance to the liver parenchyma seen which is shrunken. The spleen is enlarged. The pancreas, adrenal glands and kidneys are within normal limits. No bowel obstruction, free air, or abscess. Mild ascites. No evidence of significant lymphadenopathy . No suspicious bony findings. IMPRESSION: Liver cirrhosis pattern is seen. Mild ascites. Small left pleural effusion.
[2023-02-15] MEDS ORDERED: MORPHINE 4 MG/ML SYR ONE (17:03)
[2023-02-15] MEDS ORDERED: NA CHLORIDE 0.9% 1,000 ML ONE (17:03)
[2023-02-15] MEDS ORDERED: ONDANSETRON 4 MG/2 ML VIAL ONE (17:03)
--- NOTE | 2023-02-15 18:05 | RAD REPORT ---
EXAM DESCRIPTION: US - Abdomen Exam Limited - 02/15/2023 5:49 pm CLINICAL HISTORY: RUQ Pain COMPARISON: Abdomen Exam Limited dated 11/25/2022 FINDINGS: The gallbladder demonstrates cholelithiasis with gallbladder sludge. No pericholecystic fl uid or gallbladder wall thickening. The common bile duct is normal measuring 4 mm. The liver demonstrates no findings of intrahepatic biliary dilatation. IMPRESSION: Moderate cholelithiasis.
--- NOTE | 2023-02-15 18:08 | ER ---
Nurse's Notes [facility] Name: Christelle Paredes Age: 57 yrs Sex: Female : 1965 Arrival Date: 02/15/2023 Time: 13:52 Bed 5 Private MD: Diagnosis: Other cirrhosis of liver;Dehydration;Intractable nausea and vomiting;Other ascites;Hypotension, unspecified;Other cholelithiasis without obstruction Presentation: 02/15 14:23 Chief complaint: Patient states: "I am a liver and gallbladder patient and I started aa5 vomiting yesterday".Pt also reports abd pain and unable to tolerate food. Coronavirus screen: vomiting. Ebola Screen: Patient denies travel to an Ebola-affected area in the 21 days before illness onset. Initial Sepsis Screen: Does the patient meet any 2 criteria? No. Patient's initial sepsis screen is negative. Does the patient have a suspected source of infection? No. Patient's initial sepsis screen is negative. Risk Assessment: Do you want to hurt yourself or someone else? Patient reports no desire to harm self or others. Onset of symptoms was February 2023. 14:23 Acuity: FRANKLIN 3 aa5 14:23 Method Of Arrival: Ambulatory aa5 Historical: - Allergies: 14:23 Vancomycin Analogues; aa5 - Home Meds: 18:32 Omeprazole Oral [Active]; Propranolol Oral [Active]; spironolactone 25 mg Oral solution hb [Active]; Symbicort inhalation [Active]; torsemide oral [Active]; - PMHx: 14:23 Asthma; chronic bronchitis; Cirrhosis; Hypertension; On Liver transplant list; aa5 - PSHx: 14:23 stent to gallbladder; aa5 - Immunization history:: Adult Immunizations up to date. - Social history:: Smoking status: Patient denies any tobacco usage or history of. Screenin:22 [facility] ED Fall Risk Assessment (Adult) Score/Fall Risk Level 0 - 2 = Low Risk hb Oriented to surroundings, Maintained a safe environment. Abuse screen: Denies threats or abuse. Denies injuries from another. Nutritional screening: No deficits noted. Tuberculosis screening: No symptoms or risk factors identified. Assessment: 18:08 General: Appears in no apparent distress. Behavior is calm, cooperative. Pain: Pain hb currently is 6 out of 10 on a pain scale. Neuro: Level of Consciousness is awake, alert, obeys commands, Oriented to person, place, time, situation. Cardiovascular: Patient's skin is warm and dry. Respiratory: Respiratory effort is even, unlabored, Respiratory pattern is regular, symmetrical. GI: Reports upper abdominal pain, nausea, vomiting. : No signs and/or symptoms were reported regarding the genitourinary system. EENT: No signs and/or symptoms were reported regarding the EENT system. Derm: Skin is pink, warm \\T\\ dry. Musculoskeletal: No signs and/or symptoms reported regarding the musculoskeletal system. 19:09 Reassessment: Patient appears in no apparent distress at this time. Patient and/or hb family updated on plan of care and expected duration. Pain level reassessed. Patient is alert, oriented x 3, equal unlabored respirations, skin warm/dry/pink. 20:00 Reassessment: Patient appears in no apparent distress at this time. Patient and/or jb4 family updated on plan of care and expected duration. Pain level reassessed. Patient is alert, oriented x 3, equal unlabored respirations, skin warm/dry/pink. 21:49 Reassessment: Patient appears in no apparent distress at this time. Patient and/or jb4 family updated on plan of care and expected duration. Pain level reassessed. Patient is alert, oriented x 3, equal unlabored respirations, skin warm/dry/pink. attempted to call report. On hold for 10 minutes. will call back. Vital Signs: 14:24 BP 106 / 60; Pulse 66; Resp 18 S; Temp 97.8(TE); Pulse Ox 99% on R/A; Weight 100.7 kg aa5 (R); Height 5 ft. 9 in. (R); 17:21 BP 87 / 48; Pulse 59; Pulse Ox 100% on R/A; hb 18:00 BP 89 / 43; Pulse 68; Resp 17; Pulse Ox 100% on R/A; hb 19:04 BP 92 / 43; Pulse 57; Resp 17; Pulse Ox 99% on R/A; hb 20:00 BP 93 / 54; Pulse 52; Resp 16; Pulse Ox 100% on R/A; jb4 21:36 BP 100 / 55; Pulse 52; Resp 16; Pulse Ox 100% on R/A; jb4 14:24 Body Mass Index 32.78 (100.70 kg, 175.26 cm) aa5 ED Course: 13:55 Patient arrived in ED. rg4 14:04 Monica Oconnell FNP [facility]. jh7 14:04 Davonte Johnson MD is Attending Physician. 7 14:23 Arm band placed on. aa5 14:24 Triage completed. aa5 14:43 Radiology exam delayed due to lab results not completed at this time. (BUN/Creatinine) jg10 IV insertion attempt and/or patient not having appropriate IV at this time. 15:45 Inserted saline lock: 22 gauge in left wrist, using aseptic technique. Blood collected. hb 16:10 CT Abd/Pelvis - IV Contrast Only In Process Unspecified. EDMS 16:12 Dylan Cheng, RN is Primary Nurse. jl7 17:22 Patient has correct armband on for positive identification. hb 17:51 US Abdomen Limited In Process Unspecified. EDMS 18:07 attempted transfer to [facility],phone rang for 3 min and 27 seconds then hung bd up. 18:10 2nd attempt to initiated transfer to [facility]. bd 18:14 3rd attempt to initiated transfer to [facility]. bd 18:18 attempted to initiate transfer to [facility] phone rang for 3 min 30 sec then bd hung up. 18:19 4th attempt to initiate transfer to [facility]. bd 18:26 5th attempt to initiated transfer to [facility] phone rang for 3 min 30 bd seconds then hung up. 18:32 No provider procedures requiring assistance completed. hb 19:04 PT-INR Sent. hb 19:04 AMMONIA Sent. hb 19:12 Contacted the pump house operator and she stated there is nothing she could do about [address] not answering. 19:12 6th attempt to initiate transfer to [facility] waited for 3 mins. ah1 19:41 [facility] contacted us back to start Initial transfer. Spoke with shimon Conti. 19:59 Attending Physician role handed off by Davonte Johnson MD sp4 19:59 Benedicto Ortega MD is Attending Physician. sp4 20:[address] Atiya Mccall. 1 20:25 Hospital bed approval by MARGARET Conti [place] 9 bed 950. 1 20:50 EMS contacted [facility]. [facility] 22:06 Patient transferred, IV remains in place. jb4 Administered Medications: 17:03 Drug: NS 0.9% IV 1000 ml Route: IV; Rate: 1 bolus; Site: left wrist; jl7 17:04 Drug: Ondansetron IVP 4 mg Route: IVP; Site: left wrist; jl7 17:04 Drug: morphine IVP or IV 4 mg Route: IVP; Infused Over: 4 mins; Site: left wrist; jl7 17:45 Drug: NS 0.9% IV 500 ml Route: IV; Rate: bolus; Site: right wrist; hb 18:03 CANCELLED (Physician Discretion): NS 0.9% IV 1000 ml IV at 1 bolus Per protocol; 1000 jh7 mL bolus 18:44 Not Given (Physician Discretion): Rocephin IV 1 grams IV at 1 calculated rate once; jh7 Given slow IV push per pharmacy instructions 18:45 Drug: Albumin IVPB 12.5 grams Volume: 50 ml; Route: IVPB; Site: right wrist; hb 20:59 Drug: Albumin IVPB 12.5 grams Volume: 50 ml; Route: IVPB; Site: left wrist; jb4 Medication: 17:22 VIS not applicable for this client. Outcome: 18:08 ER care complete, transfer ordered by . 7 22:05 Transferred by ground EMS to [facility], Transfer form completed. jb4 X-rays sent w/ patient. 22:05 Condition: stable 22:05 Discharge instructions given to patient, Instructed on the need for transfer, Demonstrated understanding of instructions. 22:06 Patient left the ED. jb4 Signatures: Dispatcher [employer] EDMS Rere Scott Audri RN RN aa5 Marisabel Cross RN RN Catalina Velasquez 4 Carlos Aguilar RN RN jb4 Dylan Cheng RN RN jl7 Monica Oconnell, TOBACCO SPRAYER TOBACCO SPRAYER [facility] Stacy Bustamante0 Benedicto Ortega MD MD sp4 Jed Dougherty [facility]
--- NOTE | 2023-02-15 18:08 | EDPHYS ---
Physician Documentation [facility] Name: Christelle Paredes Age: 57 yrs Sex: Female : 1965 Arrival Date: 02/15/2023 Time: 13:52 Bed 5 Private MD: ED Physician Benedicto Ortega HPI: 02/15 14:25 This 57 yrs old Female presents to ER via Ambulatory with complaints of Abdominal Pain, jh7 Nausea/Vomiting. 14:25 The patient presents with abdominal pain in the epigastric area, in the right upper jh7 quadrant. 18:13 Onset: The symptoms/episode began/occurred yesterday. Associated signs and symptoms: jh7 Pertinent positives: nausea and vomiting, Pertinent negatives: constipation, diarrhea, shortness of breath. 57-year-old female presents to the ER complaining of nausea, vomiting, and abdominal pain starting yesterday. Reports that she has a history of cholelithiasis but has been unable to get her gallbladder out due to cirrhosis of the liver. Reports that her liver doctor is at [facility], and that she was on her way there but vom[address] and was unable to drive. Reports that she has a thoracentesis scheduled Tuesday and also has a history of pleural effusions.. Historical: - Allergies: 14:23 Vancomycin Analogues; aa5 - Home Meds: 18:32 Omeprazole Oral [Active]; Propranolol Oral [Active]; spironolactone 25 mg Oral solution hb [Active]; Symbicort inhalation [Active]; torsemide oral [Active]; - PMHx: 14:23 Asthma; chronic bronchitis; Cirrhosis; Hypertension; On Liver transplant list; aa5 - PSHx: 14:23 stent to gallbladder; aa5 - Immunization history:: Adult Immunizations up to date. - Social history:: Smoking status: Patient denies any tobacco usage or history of. ROS: 18:13 Constitutional: Negative for fever, chills, and weight loss, Eyes: Negative for injury, jh7 pain, redness, and discharge, Neck: Negative for injury, pain, and swelling, Cardiovascular: Negative for chest pain, palpitations, and edema, Respiratory: Negative for shortness of breath, cough, wheezing, and pleuritic chest pain, Back: Negative for injury and pain, MS/Extremity: Negative for injury and deformity, Skin: Negative for injury, rash, and discoloration, Neuro: Negative for headache, weakness, numbness, tingling, and seizure. 18:13 Abdomen/GI: Positive for abdominal pain, nausea and vomiting, Negative for diarrhea, constipation, rectal bleeding. 18:13 All other systems are negative. Exam: 18:13 Head/Face: Normocephalic, atraumatic. Eyes: Pupils equal round and reactive to light, jh7 extra-ocular motions intact. Lids and lashes normal. Conjunctiva and sclera are non-icteric and not injected. Cornea within normal limits. Periorbital areas with no swelling, redness, or edema. Neck: Trachea midline, no thyromegaly or masses palpated, and no cervical lymphadenopathy. Supple, full range of motion without nuchal rigidity, or vertebral point tenderness. No Meningismus. Cardiovascular: Regular rate and rhythm with a normal S1 and S2. No gallops, murmurs, or rubs. Normal PMI, no JVD. No pulse deficits. Respiratory: Lungs have equal breath sounds bilaterally, clear to auscultation and percussion. No rales, rhonchi or wheezes noted. No increased work of breathing, no retractions or nasal flaring. Back: No spinal tenderness. No costovertebral tenderness. Full range of motion. Skin: Warm, dry with normal turgor. Normal color with no rashes, no lesions, and no evidence of cellulitis. MS/ Extremity: Pulses equal, no cyanosis. Neurovascular intact. Full, normal range of motion. Neuro: Awake and alert, GCS 15, oriented to person, place, time, and situation. Motor strength 5/5 in all extremities. Sensory grossly intact. Normal gait. 18:13 Constitutional: The patient appears alert, awake, in obvious pain. 18:13 Abdomen/GI: Inspection: abdomen appears normal, Bowel sounds: normal, Palpation: soft, moderate abdominal tenderness, in the epigastric area and right upper quadrant. Vital Signs: 14:24 BP 106 / 60; Pulse 66; Resp 18 S; Temp 97.8(TE); Pulse Ox 99% on R/A; Weight 100.7 kg aa5 (R); Height 5 ft. 9 in. (R); 17:21 BP 87 / 48; Pulse 59; Pulse Ox 100% on R/A; hb 18:00 BP 89 / 43; Pulse 68; Resp 17; Pulse Ox 100% on R/A; hb 19:04 BP 92 / 43; Pulse 57; Resp 17; Pulse Ox 99% on R/A; hb 20:00 BP 93 / 54; Pulse 52; Resp 16; Pulse Ox 100% on R/A; jb4 21:36 BP 100 / 55; Pulse 52; Resp 16; Pulse Ox 100% on R/A; jb4 14:24 Body Mass Index 32.78 (100.70 kg, 175.26 cm) aa5 MDM: 14:04 Patient medically screened. [facility] 19:02 Management of patient was discussed with the following: Professional Fighter: Dr. Zavaleta, [facility] General Surgery. Dr. Zavaleta agreed that it is inappropriate to hospitalize the patient here and request transfer for higher level of care.. ED course: [facility] transfer center called over 6 times by both Rere and Atul. Escalated to [place] who states that she is unable to do anything about the situation. We will continue to attempt transfer.. 20:01 Differential diagnosis: bowel obstruction, cholecystitis, Cholelithiasis, pancreatitis. [facility] Data reviewed: vital signs, nurses notes, lab test result(s), EKG, radiologic studies, CT scan, ultrasound. Consideration of Admission/Observation Patient will be transferred for higher level of care. I considered the following discharge prescriptions or medication management in the emergency department Medications were administered in the Emergency Department. See MAR. Care significantly affected by the following chronic conditions: Hypertension, Liver Disease. Counseling: I had a detailed discussion with the patient and/or guardian regarding: the historical points, exam findings, and any diagnostic results supporting the discharge/admit diagnosis, the need to transfer to another facility, for higher level of care. Response to treatment: the patient's symptoms have mildly improved after treatment. Transition of care: After a detail discussion of the patient's case, care is transferred to Benedicto Ortega MD. 20:40 ED course: Patient was accepted for transfer, to [facility] to [facility]. Patient is feeling sp4 improved. 02/15 14:31 Order name: CBC with Diff; Complete Time: 16:03 [facility] 02/15 14:31 Order name: CMP; Complete Time: 16:03 [facility] 02/15 14:31 Order name: Lipase; Complete Time: 16:03 [facility] 02/15 14:31 Order name: Urinalysis w/ reflexes; Complete Time: 16:03 [facility] 02/15 18:34 Order name: PT-INR; Complete Time: 19:07 [facility] 02/15 18:34 Order name: AMMONIA; Complete Time: 19:17 [facility] 02/15 19:44 Order name: SARS RAPID [facility] 02/15 14:31 Order name: CT Abd/Pelvis - IV Contrast Only; Complete Time: 16:35 [facility] 02/15 16:35 Order name: US Abdomen Limited; Complete Time: 18:06 [facility] 02/15 14:31 Order name: IV Saline Lock; Complete Time: 15:16 [facility] 02/15 14:31 Order name: Labs collected and sent; Complete Time: 15:16 [facility] Administered Medications: 17:03 Drug: NS 0.9% IV 1000 ml Route: IV; Rate: 1 bolus; Site: left wrist; jl7 17:04 Drug: Ondansetron IVP 4 mg Route: IVP; Site: left wrist; jl7 17:04 Drug: morphine IVP or IV 4 mg Route: IVP; Infused Over: 4 mins; Site: left wrist; jl7 17:45 Drug: NS 0.9% IV 500 ml Route: IV; Rate: bolus; Site: right wrist; hb 18:03 CANCELLED (Physician Discretion): NS 0.9% IV 1000 ml IV at 1 bolus Per protocol; 1000 jh7 mL bolus 18:44 Not Given (Physician Discretion): Rocephin IV 1 grams IV at 1 calculated rate once; jh7 Given slow IV push per pharmacy instructions 18:45 Drug: Albumin IVPB 12.5 grams Volume: 50 ml; Route: IVPB; Site: right wrist; hb 20:59 Drug: Albumin IVPB 12.5 grams Volume: 50 ml; Route: IVPB; Site: left wrist; jb4 Disposition: 20:00 Co-signature as Attending Physician, Benedicto Ortega MD I agree with the assessment sp4 and plan of care. I reviewed the patient's care provided by Advanced Practice Provider \T\ agree w/ the diagnosis \T\ care plan. I personally saw the pt \T\ performed a substantive portion of the visit, incldng all aspects of the (History/Exam/Medical Decision Making). Disposition Summary: 02/15/23 18:08 Transfer Ordered Transfer Location: [place] [id number] Reason: Higher level of care [facility] Condition: Fair jh7 Problem: an ongoing problem jh7 Symptoms: have worsened jh7 Accepting Physician: Accepting MD Nathalia Murillo Arely (02/15/23 22:06) jb4 Diagnosis - Other cirrhosis of liver jh7 - Dehydration jh7 - Intractable nausea and vomiting jh7 - Other ascites jh7 - Hypotension, unspecified jh7 - Other cholelithiasis without obstruction jh7 Forms: - Medication Reconciliation Form jh7 - SBAR form 7 Signatures: Dispatcher [employer] EDDavonte Hatfield MD MD cha Calderon, Audri, RN RN aa5 Marisabel Cross RN RN Carlos Reynolds RN RN jb4 Dylan Cheng RN RN jl7 Monica Oconnell, VISUAL DISPLAY MANAGER VISUAL DISPLAY MANAGER Benedicto Villalta MD MD sp4 Corrections: (The following items were deleted from the chart) 18:03 18:00 NS 0.9% IV 1000 ml IV at 1 bolus Per protocol; 1000 mL bolus ordered. James 7 18:14 14:25 The patient presents with abdominal pain James 7 19:44 18:08 Accepting MD reed jh7 20:41 19:44 Accepting MD reed sp4 22:06 20:41 [facility] jb4
[2023-02-15] MEDS ORDERED: NA CHLORIDE 0.9% 500 ML ONE (18:47)
[2023-02-15] MEDS ORDERED: CEFTRIAXONE 1000 MG/VIAL ONE (18:47)
[2023-02-15] MEDS ORDERED: ALBUMIN HUMAN 25% 50 ML IV ONE ×2 (18:48→20:56)
[2023-02-15 19:05] LABS: Protime INR 1.5
[2023-02-15 21:00] LABS: SARS-CoV-2 Antigen Rapid Res Negative (Negative)
[2023-02-15 23:13] VITALS: TEMP 97.8
[2023-02-15 23:49] VITALS: O2SAT 100
[2023-02-15 23:50] VITALS: BP 100/55
== END 2023-02-15 22:06 | disposition short-term general hospital (02) ==
LOC: ER 13:52
DX: K74.69 Other cirrhosis of liver (principal); E86.0 Dehydration; R18.8 Other ascites; K80.80 Other cholelithiasis without obstruction; I95.9 Hypotension, unspecified; R11.2 Nausea with vomiting, unspecified; I10 Essential (primary) hypertension; Z20.822 Contact with and (suspected) exposure to COVID-19; Z88.3 Allergy status to other anti-infective agents
CPT/HCPCS: 85025; 81001; 36415; 82140; 85610; 83690; 80053; 74177; 76705; 99285; 87811; Q9967; J2405; P9047 ×2; J7040; J7030; J0696

== ENCOUNTER 2023-03-18 09:50 | Emergency (ER) | payer BC, OTHER ==
--- OUTSIDE RECORDS SUMMARY | 2023-03-18 10:00 | XMS REPORT | Continuity of Care Document ---
:1965 Author Organization [facility] t Address [address] [place] [address] [place] [id number] Care Team Providers Name Role Phone Nuris Alegre Primary Care Physician MATY MEI Attending Clinician Unavailable AMIE GOMEZ Attending Clinician Unavailable SAMANTHA ALFREDO Attending Clinician Unavailable MP HARRIS Attending Clinician Unavailable CAROLYN BLOCK Attending Clinician Unavailable HIRAM HIGHTOWER Attending Clinician Unavailable Referred, Self Attending Clinician Unavailable VERONICA KRAMER Attending Clinician Unavailable LUCY PASCAL Attending Clinician Unavailable GOLDIE ALBRIGHT Attending Clinician Unavailable JOSELUIS STONER Attending Clinician Unavailable ERIKA CUELLAR Attending Clinician Unavailable DANUTA TAYLOR Attending Clinician Unavailable ASHELY WRIGHT Attending Clinician Unavailable BARRY CUNHA Attending Clinician Unavailable HEATHER MARIANO Attending Clinician Unavailable NENA MANE Attending Clinician Unavailable MARGIE ALLRED Attending Clinician Unavailable PAUL SUTTON Attending Clinician Unavailable Mel VAUGHN, Du Attending Clinician Terri Concepcion Attending Clinician Gerardo Diaz MD Attending Clinician Stephanie VAUGHN, Paul Hernández Attending Clinician [phone] Patricia VAUGHN MPH, Amie Lehman Attending Clinician [phone] Enmanuel VAUGHN, Megha Dumas Attending Clinician Castillo VAUGHN, Rylie Diaz Attending Clinician Graham VAUGHN, Dipak Long Attending Clinician Ana Luisa VAUGHN, Heather Thurman Attending Clinician [phone] Judi Vigil Attending Clinician Colt VAUGHN, Eun Burgos Attending Clinician Joseph SCHULTZ, Monica Walker Attending Clinician [phone] Violet, Arcenio Cole Attending Clinician ASHLEY WRIGHT Admitting Clinician Unavailable Referred, Self Admitting Clinician Unavailable ANA LUISA, HEATHER THURMAN Admitting Clinician Unavailable MARISABEL HO Admitting Clinician Unavailable PAUL SUTTON Admitting Clinician Unavailable JUDI VIGIL Admitting Clinician Unavailable Payers Payer Name Policy Type Policy Number Effective Date Expiration Date S chay [employer]BS PPO POS EPO [id number] 2022 00:00:00 CHOICE Problems Condition Condition Condition Status Onset Resolution Last Treating Co mments Source Name Details Category Date Date Treatment Clinician Date Pleural Pleural Disease Active [facility] Other Other Disease Active [facility] asc[facility]ites [facility] Symptomati Symptomati Disease Active [facility] c 3[facility]17 [facility] cholelithi cholelithi 00:00: Me dical asis asis 00 Center [place]ol[place] Choledocho Disease Active [facility] lithiasis lithiasis 3-16 [facility] 00:[facility]: Medical 00 Center Allergies, Adverse Reactions, Alerts Allergy Allergy Status Severity Reaction(s) Onset Inactive Treating Comm ents Source Name Type Date Date Clinician VANCOMYC Allergy Active Other [facility] IN 3-16 00:00: 00 Vancomyc Propensi Active Other (See Headache, [facility] to Comments) 3-16 "body [facility] adverse 00:00: clamping" Medica l reaction 00 Center s MELOXICA Allergy Active [facility] M 7-15 00:00: 00 Vancomyc Propensi Active Method i in ty to [facility] [facility] adverse 00:00: Hospita reaction 00 l s to drug NO KNOWN Allergy Active [facility] Family History Family Member Diagnosis Comments Start Date Stop Date Source Natural father Hypertension [facility] Natural father Kidney cancer [facility] Natural mother Arrhythmia [facility] Natural mother Asthma [facility] Natural mother Cirrhosis [facility] Natural mother Diabetes [facility] Social History Social Habit Start Date Stop Date Quantity Comments Source History SDOH [facility] Alcohol Std Drinks Medica l Center History [facility] Alcohol Binge Medical [facility] Sexual [facility] Exposure to 2022-12-19 2022-12-[address] [facility] SARS-CoV-2 (event) 00:00:00 15:15:00 Medica l Center History [facility] 2022-12-29 2022-12-[address] [facility] Housing Unable to 00:00:00 00:00:00 Medical Center Pay History [facility] 2022-12-29 2022-12-[address] [facility] Housing Places 00:00:00 00:00:00 Medical Ce nter Lived History [facility] 2022-12-29 2022-12-[address] [facility] Housing Homeless 00:00:00 00:00:00 Medical Center Last Year History [facility] 2022-11-25 2022-11-[address] [facility] Alcohol Frequency 00:00:00 00:00:00 Medical Center History of Social 2019-05-03 2019-05-[address] function 00:00:00 00:00:00 Hospital Tobacco use and 2019-04-04 2019-04-04 Smokeless [facility] exposure 00:00:00 00:00:00 tobacco non-user Hospital Alcohol intake 2019-04-04 2019-04-04 Ex-drinker [facility] 00:00:00 00:00:00 (finding) Hospital Sex Ass[birth year] At [birth year] [facility] 00:00:00 00:00:00 Hospital Smoking Status Start Date Stop Date Source Never smoked tobacco [facility] Medications Ordered Filled Start Stop Current Ordering Indication Dosage Frequency Signature Comments Components Source Medication Medication Date Date Medication? Clinician (SIG) Name Name spironolact 0 Yes 25mg QD Take [address] [facility] one 4-26 tablet (25 [facility] (ALDACTONE) 18:19: mg total) M edical 25 MG 05 by mouth Center tablet in the morning. omeprazole 0 Yes 20mg QD Take 1 [facility] (PriLOSEC) 4-26 capsule [facility] 20 MG 18:19: (20 mg Medical capsule 05 total) by Center mouth in the morning. traMADoL 0 Yes 50mg Take [address] (ULTRAM) 50 4-26 tablet (50 Veronica kes mg tablet 18:19: mg total) Med ical 05 by mouth Center every 6 (six) hours as needed for Pain. Max Daily Amount: 200 mg ondansetron 0 Yes 4mg Take [address] (ZOFRAN) 4 4-26 tablet (4 Luke s MG tablet 18:19: mg total) Med ical 05 by mouth 3 Center (three) times daily as needed for Nausea. torsemide 2022-0 2022- Yes 40mg QD Take [address] 40 mg Tab -04 02-26 by mouth [facility] 00:00: 23:59 in the Medical 00 :00 morning Center for 30 days. potassium 2022-0 2023- Yes 10meq QD Take [address] chloride - 04-24 tablet (10 Luke s (KLOR-CON-M 00:00: 23:59 mEq total) Medical ) 10 MEQ CR 00 :00 by mouth Cent er tablet in the morning. propranoloL 2022-0 2023- No 10mg [id number] Take [address] (INDERAL) 3- 03-21 [id number] tablet (10 [facility] 10 MG 00:00: 23:59 3D mg total) Medica l tablet 00 :00 by mouth Center in the morning and 1 tablet (10 mg total) at noon and 1 tablet (10 mg total) in the evening. furosemide 2023- No 20mg Take [address] [facility] (LASIX) 20 12-01-21 tablet (20 Veronica kes MG tablet 00:00: 23:59 mg total) Me dical 00 :00 by mouth Center daily as needed (leg swelling). albuterol 2023- No 1{puff} Inhale [address] HFA 12-01- puff by [facility] (VENTOLIN 00:00: 23:59 mouth via Me dical HFA) 90 00 :00 inhaler Center mcg/actuati every 6 on inhaler (six) hours as needed for Wheezing. propranoloL 2023- No 10mg [id number] Take [address] (INDERAL) 12-01- [id number] tablet (10 [facility] 10 MG 00:00: 23:59 3D mg total) Medica l tablet 00 :00 by mouth Center in the morning and 1 tablet (10 mg total) at noon and 1 tablet (10 mg total) in the evening. furosemide 2023- No 20mg Take [address] [facility] (LASIX) 20 12-01-21 tablet (20 Veronica kes MG tablet 00:00: 23:59 mg total) Me dical 00 :00 by mouth Center daily as needed (leg swelling). albuterol 2023- No 1{puff} Inhale [address] HFA 12-01 puff by [facility] (VENTOLIN 00:00: 23:59 mouth via Me dical HFA) 90 00 :00 inhaler Center mcg/actuati every 6 on inhaler (six) hours as needed for Wheezing. propranoloL 2022-2023- No 10mg [id number] Take [address] (INDERAL) 12-01- [id number] tablet (10 [facility] 10 MG 00:00: 23:59 3D mg total) Medica l tablet 00 :00 by mouth Center in the morning and 1 tablet (10 mg total) at noon and 1 tablet (10 mg total) in the evening. albuterol 2023- No 1{puff} Inhale [address] HFA 3-22 03-21 puff by [facility]ukes (VENTOLIN 00:00: 23:59 mouth via Me dical HFA) 90 00 :00 inhaler Center mcg/actuati every 6 on inhaler (six) hours as needed for Wheezing. furosemide 2022- No 20mg Take [address] [facility] (LASIX) 20 12-01 04-25 tablet (20 Veronica kes MG tablet 00:00: 00:00 mg total) Me dical 00 :00 by mouth Center daily as needed (leg swelling). traMADoL 2022- No 50mg Take [address] (ULTRAM) 50 12-01 04-01 tablet (50 L ukes mg tablet 00:00: 23:59 mg total) Me dical 00 :00 by mouth Center every 6 (six) hours as needed for up to 10 days. Max Daily Amount: 200 mg traMADoL 2022- No 50mg Take [address] [facility] (ULTRAM) 50 12-01-01 tablet (50 L ukes mg tablet 00:00: 23:59 mg total) Me dical 00 :00 by mouth Center every 6 (six) hours as needed for up to 10 days. Max Daily Amount: 200 mg traMADoL 2022- No 50mg Take [address] [facility] (ULTRAM) 50 12-01 04-01 tablet (50 L ukes mg tablet [...] 00:00: daily. Hospit a 00 l valsartan 0 Yes 80mg QD Take 80 mg Me thodi (DIOVAN) 80 6-[address] MG tablet 00:00: daily. Hospit a 00 l Vital Signs Vital Name Observation Time Observation Value Comments Source HEIGHT 2023-03-14 14:07:17 172.7 cm WEIGHT 2023-03-14 14:07:17 98.884 kg HEIGHT 2023-03-14 14:07:17 172.7 cm WEIGHT 2023-03-14 14:07:17 98.884 kg HEIGHT 2023-03-09 13:44:00 172.7 cm WEIGHT 2023-03-09 13:44:00 102.513 kg HEIGHT 2023-03-09 09:06:00 172.7 cm WEIGHT 2023-03-09 09:06:00 102.649 kg HEIGHT 2023-03-09 08:40:00 176.5 cm WEIGHT 2023-03-09 08:40:00 102.649 kg WEIGHT 2023-02-26 15:54:00 101.152 kg WEIGHT 2023-02-26 15:54:00 101.152 kg WEIGHT 2023-02-17 06:00:00 101.6 kg HEIGHT 2023-02-15 23:32:00 175.3 cm WEIGHT 2023-02-15 23:32:00 101.606 kg WEIGHT 2023-02-17 06:00:00 101.6 kg HEIGHT 2023-02-15 23:32:00 175.3 cm WEIGHT 2023-02-15 23:32:00 101.606 kg HEIGHT 2023-01-25 13:29:00 175.3 cm WEIGHT 2023-01-25 13:29:00 101.696 kg HEIGHT 2023-01-25 13:29:00 175.3 cm WEIGHT 2023-01-25 13:29:00 101.696 kg HEIGHT 2023-01-20 13:18:00 175.3 cm WEIGHT 2023-01-20 13:18:00 104.327 kg HEIGHT 2023-01-20 13:18:00 175.3 cm WEIGHT 2023-01-20 13:18:00 104.327 kg WEIGHT 2023-01-04 07:30:00 111.727 kg WEIGHT [...] 175.3 cm WEIGHT 2022-12-29 15:16:00 119.3 kg Heart rate 2023-01-04 15:54:03 71 /min [facility] Respiratory rate 2023-01-04 15:54:03 18 /min [facility] Oxygen saturation in 2023-01-04 15:54:03 96 /min [facility] Arterial blood by Medical Ce nter Pulse oximetry Body temperature 2023-01-04 15:53:12 37 Odilia [facility] Systolic blood 2023-01-04 15:53:00 108 mm[Hg] [facility] Diastolic blood 2023-01-04 15:53:00 69 mm[Hg] [facility] Body weight 2023-01-04 07:30:00 111.727 kg [facility] BMI 2023-01-04 07:30:00 36.37 kg/m2 [facility] Body height 2023-01-02 09:27:00 175.3 cm [facility] Systolic blood 2022-12-01 08:02:00 121 mm[Hg] [facility] Diastolic blood 2022-12-01 08:02:00 60 mm[Hg] [facility] Heart rate 2022-12-01 08:02:00 79 /min [facility] Body temperature 2022-12-01 08:02:00 35.78 Odilia [facility] Respiratory rate 2022-12-01 08:02:00 18 /min [facility] Oxygen saturation in 2022-12-01 08:02:00 93 /min [facility] Arterial blood by Medical Ce nter Pulse oximetry Body height 2022-11-25 08:46:00 175.3 cm [facility] Body weight 2022-11-25 08:46:00 119.296 kg [facility] BMI 2022-11-25 08:46:00 38.84 kg/m2 [facility] Procedures Procedure Date / Time Performing Clinician Source Performed MAGNESIUM 2023-01-04 05:10:00 Teofilo [facility] COMPREHENSIVE METABOLIC 2023-01-04 05:10:00 Tr [facility] PHOSPHORUS 2023-01-04 05:10:00 [facility] CALCIUM, IONIZED 2023-01-04 05:09:00 [facility] CBC W/PLT COUNT & AUTO 2023-01-04 05:09:00 [facility] [id number] 2023-01-04 05:09:00 Dipak Arreola [facility] CBC W/PLT COUNT & AUTO 2023-01-04 05:09:00 [facility] MAGNESIUM 2023-01-03 05:02:00 Tr [facility] COMPREHENSIVE METABOLIC 2023-01-03 05:02:00 Tr [facility] MAGNESIUM 2023-01-02 05:32:00 Margie Allred [facility] 2023-01-02 05:32:00 [facility] CALCIUM, IONIZED 2023-01-01 05:50:00 [facility]OLIC 2023-01-01 05:12:00 Marisabel Ho [facility] MAGNESIUM 2023-01-01 05:12:00 Rosalee Marisabel [facility] PROTHROMBIN TIME/INR 2023-01-01 05:12:00 Rosalee Marisabel [facility] HEREDITARY HEMOCHROMATOSIS 2023-01-01 05:12:00 Dipak Arreola [facility] PHOSPHORUS 2023-01-01 05:12:00 Austyn Bae [facility] CBC W/PLT COUNT & AUTO 2023-01-01 05:12:00 Bae [facility] CBC W/PLT COUNT & AUTO 2023-01-01 05:12:00 [facility] 2D ECHO W/ DOPPLER 2022-12-31 14:04:45 Evelyn Portillo [facility] (CW/PW/COLOR) [facility] REPORT OF PROCEDURE - 2022-12-31 10:28:58 Gerardo Diaz I [facility] ENDOSCOPY [facility] EGD 2022-12-31 08:14:00 Gerardo Diaz [facility] ukes (ESOPHAGOGASTRODUODENOSCOP Medic al Center Y) [facility] 2022-12-31 04:48:00 Marisabel Ho [facility] MAGNESIUM 2022-12-31 04:48:00 Marisabel Ho [facility] PROTHROMBIN TIME/INR 2022-12-31 04:48:00 Marisabel Ho [facility] CALCIUM, IONIZED 2022-12-31 04:48:00 Austyn Bae [facility] PHOSPHORUS 2022-12-31 04:48:00 Bae, [facility] CBC W/PLT COUNT & AUTO 2022-12-31 04:48:00 [facility] DIFFERENTIAL [facility] CBC W/PLT COUNT & AUTO 2022-12-31 04:48:00 [facility] DIFFERENTIAL [facility] HEPATITIS B CORE ANTIBODY, 2022-12-30 16:29:00 Marisabel Ho [facility] TOTAL [facility] HEPATITIS A ANTIBODY, IGG 2022-12-30 16:29:00 Marisabel Ho [facility] HEPATITIS C ANTIBODY 2022-12-30 16:29:00 [facility]alee [facility] HEPATITIS B SURFACE 2022-12-30 16:29:00 Marisabel Ho C [facility] ANTIGEN [facility] HEPATITIS B SURFACE 2022-12-30 16:29:00 Marisabel Ho C [facility] ANTIBODY [facility] FERRITIN 2022-12-30 16:29:00 Rosalee [facility] IRON, TIBC, % SAT. 2022-12-30 16:29:00 Marisabel Ho I [facility] (WITHOUT FERRITIN) [facility] CERULOPLASMIN 2022-12-30 16:29:00 [facility] ALPHA FETOPROTEIN (AFP), 2022-12-30 16:29:00 Marisabel Ho [facility] TUMOR MARKER [facility] ANTI-NUCLEAR ANTIBODY 2022-12-30 16:29:00 [facility] Marisabel [facility] (EMORY) [facility] ACTIN (SMOOTH MUSCLE) 2022-12-30 16:29:00 [facility] ANTIBODY, IGG [facility] EMORY TITER AND PATTERN 2022-12-30 16:29:00 Rosalee [facility] MITOCHONDRIAL AB SCREEN 2022-12-30 16:29:00 Marisabel Ho [facility] MITOCHONDRIAL AB TITER 2022-12-30 16:29:00 Marisabel Ho e [facility] [id number]\\, 2022-12-30 15:51:[address] [facility] PROTHROMBIN TIME/INR 2022-12-30 15:51:00 Rosalee Marisabel [facility] LACTATE DEHYDROGENASE 2022-12-30 15:48:00 Marisabel Ho [facility] (LDH) [facility] COMPREHENSIVE METABOLIC 2022-12-30 15:48:00 Marisabel Ho [facility] MAGNESIUM 2022-12-30 15:48:00 Rosalee Marisabel [facility] CALCIUM, IONIZED 2022-12-30 15:48:00 [facility] PHOSPHORUS 2022-12-30 15:48:00 [facility] CBC W/PLT COUNT & AUTO 2022-12-30 15:48:00 [facility] TYPE AND SCREEN, AUTOMATED 2022-12-30 15:48:00 Rosalee Marisabel [facility] CBC W/PLT COUNT & AUTO 2022-12-30 15:48:00 [facility] XR CHEST 1 VIEW PORTABLE / 2022-12-30 14:22:00 Tomas Wei [facility] US PARACENTESIS 2022-12-30 12:34:00 Marisabel Ho [facility] BODY FLUID CULTURE + GRAM 2022-12-30 12:15:00 Marisabel Ho [facility] PROTEIN, BODY FLUID 2022-12-30 12:15:00 [facility] ALBUMIN, BODY FLUID 2022-12-30 12:15:00 Saurabh[facility]iana [facility] AMYLASE PERITONEAL FLUID 2022-12-30 12:15:00 Saurabhquiana [facility] MISCELLANEOUS LAB ORDER 2022-12-30 12:15:00 Marisabel Ho [facility] BODY FLUID CELL COUNT WITH 2022-12-30 11:59:[address] [facility] CT ABDOMEN/PELVIS WITH IV 2022-12-30 10:45:00 Margie Allred [facility] CONTRAST [facility] BODY FLUID CELL COUNT WITH 2022-12-30 10:01:[address] [facility] ALBUMIN PLEURAL FLUID 2022-12-30 10:01:00 Major Murry [facility] GLUCOSE PLEURAL FLUID 2022-12-30 10:01:00 [facility] LACTATE DEHYDROGENASE 2022-12-30 10:01:00 Major Murry [facility] ([facility]), PLEURAL FLUID [facility] er PH, BODY FLUID 2022-12-30 10:01:[address] [facility] PROTEIN, TOTAL, PLEURAL 2022-12-30 10:01:00 Mark Wei [facility] CYTOLOGY 2022-12-30 09:33:00 [facility] FLUID CULTURE + GRAM 2022-12-30 09:27:00 Marisabel Ho [facility] MISCELLANEOUS LAB ORDER 2022-12-30 09:26:00 Lima Spear [facility] BLOOD CULTURE 2022-12-29 23:16:00 [facility] URINALYSIS W/ MICROSCOPIC 2022-12-29 21:23:00 Austyn Bae [facility] PROTEIN, RANDOM URINE 2022-12-29 21:23:00 [facility]AT[facility], RANDOM URINE 2022-12-29 21:23:00 Catalino [facility] PROCALCITONIN 2022-12-29 17:04:00 [facility] LACTIC ACID, VENOUS 2022-12-29 17:04:00 Scott [facility] XR CHEST 1 VIEW PORTABLE / 2022-12-29 15:48:00 Marisabel Ho [facility] B-TYPE NATRIURETIC FACTOR 2022-12-29 14:58:00 Marisabel Ho [facility] (BNP) [facility] CBC W/PLT COUNT & AUTO 2022-12-29 13:10:[address] [facility] COMPREHENSIVE METABOLIC 2022-12-29 13:10:00 Marisabel Ho [facility] PROTHROMBIN TIME/INR 2022-12-29 13:10:00 Marisabel Ho [facility] MAGNESIUM 2022-12-29 13:10:00 Marisabel Ho [facility] CBC W/PLT COUNT & AUTO 2022-12-29 13:10:00 [facility] PREPARE PLASMA 2022-12-01 23:54:00 [facility] CBC (HEMOGRAM ONLY) 2022-12-01 03:41:00 [facility] COMPREHENSIVE METABOLIC 2022-12-01 03:41:00 Graham [facility] REPORT OF PROCEDURE - 2022-11-30 12:20:26 Violet[facility] FL FLUORO NON-SPECIFIC UP 2022-11-30 09:10:00 Violet[facility] TO [facility] FINE NEEDLE ASPIRATION BY 2022-11-30 08:48:00 Violet, [facility]omaritza [facility] FINE NEEDLE ASPIRATE (FNA) 2022-11-30 08:48:00 Violet, Arcenio Gold [facility] ESOPHAGOSCOPY, WITH 2022-11-30 08:16:00 Violet, Arceniomaritza Cole I [facility] ENDOSCOPIC ULTRASOUND Medical Ce nter ULTRASOUND, UPPER GI 2022-11-30 08:16:00 Violet, Arcenio Mcgee [facility] TRACT, ENDOSCOPIC, [facility] FINE NEEDLE ASPIRATION PROCEDURE W/ C-ARM 2022-11-30 08:16:00 Violet, Arceniomaritza [facility] TRANSFUSE PLASMA 2022-11-30 05:15:00 Graham [facility] CBC (HEMOGRAM ONLY) 2022-11-30 03:22:00 Graham [facility] COMPREHENSIVE METABOLIC 2022-11-30 03:22:00 Graham [facility] PROTHROMBIN TIME/INR 2022-11-30 03:22:00 Graham [facility] PROTHROMBIN TIME/INR 2022-11-29 22:46:00 Jen Samuel [facility] TYPE AND SCREEN, AUTOMATED 2022-11-29 22:46:00 Graham [facility] ANTIBODY SCREEN 2022-11-29 22:46:00 [facility] NM HEPATOBILIARY (HIDA) 2022-11-29 12:01:[address] [facility] SCAN WITH [facility] Medical Cente r FRACTION CBC (HEMOGRAM ONLY) 2022-11-29 04:42:00 Graham [facility] METABOLIC 2022-11-29 04:42:00 Graham [facility] CBC (HEMOGRAM ONLY) 2022-11-28 00:55:00 Graham [facility] METABOLIC 2022-11-28 00:55:00 Graham [facility] CBC (HEMOGRAM ONLY) 2022-11-27 04:39:00 Graham [facility] METABOLIC 2022-11-27 04:39:00 Graham [facility] CBC W/PLT COUNT & AUTO 2022-11-26 04:43:00 Castillo [facility] BASIC METABOLIC PANEL 2022-11-26 04:43:00 Castillo [facility] HEPATIC FUNCTION PANEL 2022-11-26 04:43:00 Castillo [facility] CBC W/PLT COUNT & AUTO 2022-11-26 04:43:00 [facility]OT[facility]/INR 2022-11-26 04:43:00 Rylie Chong [facility] S [facility] MR ABDOMEN WITHOUT IV 2022-11-25 21:58:00 Rylie Chong [facility] US ABDOMEN LIMITED 2022-11-25 16:23:00 [facility] 2022-11-25 09:58:00 [facility] W/ REFLEX URINE 2022-11-25 09:58:00 [facility] ABORH, MANUAL 2022-11-25 08:39:00 Leydi Gaitan [facility] CBC W/PLT COUNT & AUTO 2022-11-25 06:36:00 Judi Vigil [facility] CBC W/PLT COUNT & AUTO 2022-11-25 06:36:00 Judi Vigil [facility] COMPREHENSIVE METABOLIC 2022-11-25 06:36:00 [facility] PANEL [facility] MAGNESIUM 2022-11-25 06:36:00 [facility] PHOSPHORUS 2022-11-25 06:36:00 [facility] PROTHROMBIN TIME/INR 2022-11-25 06:36:00 [facility] BILIRUBIN, DIRECT 2022-11-25 06:36:00 Kelly Finley [facility] TYPE AND SCREEN, AUTOMATED 2022-11-25 06:35:00 [facility] center[facility] Plan of Care Planned Activity Planned Date Details Comments Source Future Scheduled 2023-12-30 Tobacco Cessation [facility] Test 00:00:00 Counseling [facility] Medical [...] Center INFLUENZA VACCINE (Season Ended)] Future Scheduled 2023-03-11 [facility] Test 10:38:56 malignant neoplasm of colon (procedure) [code = [id number]] Future Scheduled 2023-03-11 [facility] Test 10:38:56 malignant neoplasm of colon (procedure) [code = [id number]] Future Scheduled 2023-03-11 Scre[facility] for [facility] Test 10:38:56 malignant neoplasm of colon (procedure) [code = 314803111] Future Scheduled 2023-03-11 COVID-19 VACCINE (#1) [facility] 10:38:56 [code = COVID-19 VACCINE (#1)] Future Scheduled 2023-03-11 Screening for [facility] Test 10:38:56 malignant neoplasm of cervix (procedure) [code = 557712589] Future Scheduled 2023-03-11 BREAST CANCER [facility] Test 10:38:56 SCREENING [code = BREAST CANCER SCREENING] Future Scheduled 2023-03-11 [facility]ening for [facility] Test 10:38:56 malignant neoplasm of colon (procedure) [code = 493023495] Future Scheduled 2023-03-11 [facility] for [facility] Test 10:38:56 malignant neoplasm of colon (procedure) [code = 426631115] Future Scheduled 2023-03-11 SHINGLES VACCINES (1 [facility] 10:38:56 of 2) [code = SHINGLES VACCINES (1 of 2)] Future Scheduled 2023-03-11 [facility]ACCINE [facility] 10:38:56 [code = INFLUENZA VACCINE] Future Scheduled 2023-02-14 [facility] for [facility] Test 23:01:21 malignant neoplasm of colon (procedure) [code = 899262129] Future Scheduled 2023-02-14 [facility] Test 23:01:21 malignant neoplasm of colon (procedure) [code = 302756168] Future Scheduled 2023-02-14 [facility] Test 23:01:21 malignant neoplasm of colon (procedure) [code = 292765940] Future Scheduled 2023-02-14 COVID-19 VACCINE (#1) [facility] Test 23:01:21 [code = COVID-19 VACCINE (#1)] Future Scheduled 2023-02-14 [facility] Test 23:01:21 malignant neoplasm of cervix (procedure) [code = 141313038] Future Scheduled 2023-02-14 BREAST CANCER [facility] Test 23:01:21 SCREENING [code = BREAST CANCER SCREENING] Future Scheduled 2023-02-14 [facility] Test 23:01:21 malignant neoplasm of colon (procedure) [code = 273229778] Future Scheduled 2023-02-14 [facility] Test 23:01:21 malignant neoplasm of colon (procedure) [code = 715030039] Future Scheduled 2023-02-14 SHINGLES VACCINES (1 Met [facility] Test 23:01:21 of 2) [code = SHINGLES VACCINES (1 of 2)] Future Scheduled 2023-02-14 [facility]ZA [facility]ACCINE [facility] 23:01:21 [code = INFLUENZA VACCINE] Future Scheduled 2023-01-06 COVID-19 VACCINE (#1) [facility] Test 08:48:32 [code = COVID-19 VACCINE (#1)] Future Scheduled 2023-01-06 [facility] Test 08:48:32 malignant neoplasm of cervix (procedure) [code = 178614442] Future Scheduled 2023-01-06 BREAST CANCER [facility] Test 08:48:32 SCREENING [code = BREAST CANCER SCREENING] Future Scheduled 2023-01-06 COLONOSCOPY SCREENING [facility] Test 08:48:32 [code = COLONOSCOPY SCREENING] Future Scheduled 2023-01-06 SHINGLES VACCINES (1 [facility] Test 08:48:32 of 2) [code = SHINGLES VACCINES (1 of 2)] Future Scheduled 2023-01-06 [facility]INE [facility] 08:48:32 [code = INFLUENZA VACCINE] Future Scheduled 2022-12-17 COVID-19 VACCINE (#1) [facility] Test 12:12:44 [code = COVID-19 VACCINE (#1)] Future Scheduled 2022-12-17 [facility] Test 12:12:44 malignant neoplasm of cervix (procedure) [code = 579632490] Future Scheduled 2022-12-17 BREAST CANCER [facility] Test 12:12:44 SCREENING [code = BREAST CANCER SCREENING] Future Scheduled 2022-12-17 COLONOSCOPY SCREENING [facility] Test 12:12:44 [code = COLONOSCOPY SCREENING] Future Scheduled 2022-12-17 SHINGLES VACCINES (1 Met [facility] Test 12:12:44 of 2) [code = SHINGLES VACCINES (1 of 2)] Future Scheduled 2022-12-17 INFLUENZA VACC[address] Method [facility] Test 12:12:44 [code = INFLUENZA VACCINE] Future Scheduled 2022-12-17 COVID-19 VACCINE (#1) [facility] Test 12:12:44 [code = COVID-19 VACCINE (#1)] Future Scheduled 2022-12-17 Screening for [facility] Test 12:12:44 malignant neoplasm of cervix (procedure) [code = 895092497] Future Scheduled 2022-12-17 BREAST CANCER [facility] Test 12:12:44 SCREENING [code = BREAST CANCER SCREENING] Future Scheduled 2022-12-17 COLONOSCOPY SCREENING [facility] Test 12:12:44 [code = COLONOSCOPY SCREENING] Future Scheduled 2022-12-17 SHINGLES VACCINES (1 Met [facility] Test 12:12:44 of 2) [code = SHINGLES VACCINES (1 of 2)] Future Scheduled 2022-12-17 INFLUENZA VACCINE Method [facility] Test 12:12:44 [code = INFLUENZA VACCINE] Future Scheduled 2022-09-05 COLONOSCOPY SCREENING [facility] Test 11:52:03 [code = COLONOSCOPY SCREENING] Future Scheduled 2022-09-05 SHINGLES VACCINES (1 Met [facility] Test 11:52:03 of 2) [code = SHINGLES VACCINES (1 of 2)] Future Scheduled 2022-09-05 INFLUENZA VACCINE Method [facility] Test 11:52:03 [code = INFLUENZA VACCINE] Future Scheduled 2022-09-05 COVID-19 VACCINE (#1) [facility] Test 11:52:03 [code = COVID-19 VACCINE (#1)] Future Scheduled 2022-09-05 Screening for [facility] Test 11:52:03 malignant neoplasm of cervix (procedure) [code = 707344764] Future Scheduled 2022-09-05 BREAST CANCER [facility] Test 11:52:03 SCREENING [code = BREAST CANCER SCREENING] Future Scheduled 2014 SHINGLES VACCINES ([address] [facility] Test 00:00:00 of 2) [code = SHINGLES Medic al Center VACCINES (1 of 2)] Future Scheduled 2014 SHINGLES VACCINES ([address] [facility] Test 00:00:00 of 2) [code = SHINGLES Medic al Center VACCINES (1 of 2)] Future Scheduled 2014 SHINGLES VACCINES ([address] [facility] Test 00:00:00 of 2) [code = SHINGLES Medic al Center VACCINES (1 of 2)] Future Scheduled [address] [facility] Test 00:00:00 (procedure) [code = [facility] 18539155] Future Scheduled [address] [facility] Test 00:00:00 (procedure) [code = [facility] 14278350] Future Scheduled [address] [facility] Test 00:00:00 (procedure) [code = [facility] 24808306] Future Scheduled [address] [facility] Test 00:00:00 malignant neoplasm of [facility] cervix (procedure) [code = 176544072] Future Scheduled [address] [facility] Test 00:00:00 malignant [facility] of [facility] cervix (procedure) [code = 767892430] Future Scheduled [address] [facility] Test 00:00:00 malignant neoplasm of [facility] cervix (procedure) [code = 109902879] Future Scheduled 1983 DTAP/TDAP/TD VACCINES [facility] [...] VACCINE (#1)] Future Scheduled [address] [facility] Test 00:00:00 malignant neoplasm of [facility] breast (procedure) [code = 258603629] Future Scheduled [address] [facility] Test 00:00:00 (combo) [code = CT Medical C enter Colonography (combo)] Future Scheduled [address] [facility] Test 00:00:00 malignant neoplasm of [facility] colon (procedure) [code = 204511337] Future Scheduled [address] [facility] Test 00:00:00 malignant neoplasm of [facility] colon (procedure) [code = 137637215] Future Scheduled [address] [facility] Test 00:00:00 malignant neoplasm of [facility] colon (procedure) [code = 652634993] Future Scheduled [address] [facility] Test 00:00:00 malignant neoplasm of [facility] colon (procedure) [code = 040136736] Future Scheduled 1965 S[facility] [address] [facility] Test 00:00:00 malignant neoplasm of [facility] breast (procedure) [code = 887072543] Future Scheduled [address] [facility] 00:00:00 (combo) [code = CT Medical C enter Colonography (combo)] Future Scheduled [address] [facility] Test 00:00:00 malignant neoplasm of [facility] colon (procedure) [code = 629009033] Future Scheduled [address] [facility] Test 00:00:00 malignant neoplasm of [facility] colon (procedure) [code = 463390566] Future Scheduled [address] [facility] Test 00:00:00 malignant neoplasm of [facility] colon (procedure) [code = 703396625] Future Scheduled [address] [facility] Test 00:00:00 malignant neoplasm of [facility] colon (procedure) [code = 256798727] Future Scheduled 1965 [facility] [address] [facility] Test 00:00:00 malignant neoplasm of [facility] breast (procedure) [code = 714570236] Future Scheduled [address] [facility] 00:00:00 (combo) [code = CT Medical C enter Colonography (combo)] Future Scheduled [address] [facility] Test 00:00:00 malignant neoplasm of [facility] colon (procedure) [code = 315219229] Future Scheduled [address] [facility] Test 00:00:00 malignant neoplasm of [facility] colon (procedure) [code = 027516020] Future Scheduled [address] [facility] Test 00:00:00 malignant neoplasm of [facility] Center colon (procedure) [code = 326976161] Future Scheduled [address] [facility] Test 00:00:00 malignant neoplasm of [facility] Center colon (procedure) [code = 919588189] Future Scheduled 1965 [facility] Medical Cent[facility] r Encounters Start End Encounter Admission Attending Care Care Encounter Source Date/Time Date/Time Type Type Clinicians Facility Department ID 2023-02-17 Inpatient ER HAMIDA, [facility] [id number] SLE 07:06:50 [facility] 2023-02-17 Inpatient ER HAMIDA, [facility] [id number] SLE 07:04:58 [facility] 2023-05-12 2023-05-12 Outpatient [facility] [id number] SLE 00:00:00 00:00:00 2023-04-21 2023-04-21 Outpatient JOLLY GOMEZ, [facility] [id number] SLE 00:00:00 00:00:00 AMIE 2023-04-18 2023-04-18 Outpatient [facility] [id number] SLEH 00:00:00 00:00:00 2023-04-11 2023-04-11 Outpatient JOLLY ALFREDO [facility] [id number] SLEH 00:00:00 00:00:00 SAMANTHA 2023-04-08 2023-04-08 Outpatient JOLLY SAYDA [facility] [id number] SLEH 00:00:00 00:00:00 SAMANTHA 2023-04-01 2023-04-01 Outpatient JOLLY ALFREDO [facility] [id number] SLEH 00:00:00 00:00:00 SAMANTHA 2023-03-28 2023-03-28 Outpatient JOLLY ALFREDO [facility] [id number] SLEH 00:00:00 00:00:00 SAMANTHA 2023-03-25 2023-03-25 Outpatient JOLLY ALFREDO SLE SLEH [id number] SLEH 00:00:00 00:00:00 SAMANTHA 2023-03-18 2023-03-18 Outpatient JOLYL ALFREDO, [facility] [id number] [facility] 00:00:00 00:00:00 SAMANTHA 2023-03-14 2023-03-14 Outpatient OLLIE, [facility] [id number] SLSL 14:32:47 23:59:00 MP 2023-03-14 2023-03-14 Outpatient JOLLY ALFREDO, [facility] [id number] SLSL 13:16:04 14:31:00 SAMANTHA 2023-03-11 2023-03-11 Outpatient UMAIR, [facility] [id number] SLSL 11:49:46 23:59:00 CAROLYN 2023-03-11 2023-03-11 Outpatient JOLLY ALFREDO, [facility] [id number] SLSL 10:38:51 11:48:00 SAMANTHA 2023-03-09 2023-03-09 Outpatient JOLLY GOMEZ, SLE SLE [id number] SLEH 15:31:24 23:59:00 AMIE 2023-03-09 2023-03-09 Outpatient JOLLY GOMEZ, SLE SLE [id number] SLEH 15:31:05 23:59:00 AMIE 2023-03-09 2023-03-09 Outpatient JOLLY GOMEZ SLE SLE [id number] SLEH 15:27:00 15:30:00 AMIE 2023-03-09 2023-03-09 Outpatient JOLLY GOMEZ SLE SLE [id number] SLEH 11:45:35 14:14:00 AMIE 2023-03-09 2023-03-09 Outpatient JOLLY HIGHTOWER, SLE SLE [id number] SLEH 13:43:52 13:43:52 [facility] 2023-03-09 2023-03-09 Outpatient EL SLE SLEH [id number] SLEH 13:38:04 13:38:04 2023-03-09 2023-03-09 Outpatient EL [facility], [facility] [id number] [facility] 12:00:00 12:00:00 Self 64 [facility] 2023-03-09 2023-03-09 Outpatient EL VIRGILIO GOMEZ SLE [id number] SLEH 11:45:00 11:44:00 AMIE 2023-03-09 2023-03-09 [facility] [id number] [facility] 07:29:31 07:29:31 2023-03-09 2023-03-09 Outpatient EL SLE SLE [id number] SLEH 07:28:52 07:28:52 2023-03-09 2023-03-09 Outpatient EL VERONICA KRAMER SLE SLEH [id number] SLEH 07:28:25 07:28:25 2023-03-09 2023-03-09 Outpatient [facility] [id number] SLEH 07:27:43 07:27:43 2023-03-09 2023-03-09 Outpatient EL VIRGILIO PASCAL SLE [id number] SLEH 07:27:20 07:27:20 LUCY 2023-03-09 2023-03-09 Outpatient EL SLE SLE [id number] SLEH 07:26:14 07:26:14 2023-03-09 2023-03-09 Outpatient EL SLE SLE [id number] SLEH 07:25:32 07:25:32 2023-03-09 2023-03-09 Outpatient [facility] [id number] SLEH 07:25:08 07:25:08 2023-03-09 2023-03-09 Outpatient EL VIRGILIO GOMEZ SLE [id number] SLEH 00:00:00 00:00:00 AMIE 2023-03-09 2023-03-09 Outpatient EL VIRGILIO GOMEZ SLE [id number] SLEH 00:00:00 00:00:00 AMIE 2023-03-08 2023-03-08 Outpatient GOLDIE ALBRIGHT [facility] SLSL [id number] SLSL 12:43:34 23:59:00 2023-03-08 2023-03-08 Outpatient EL GEORGIANA, [facility] SL[facility] [id number] SLSL 11:13:32 12:42:00 DIPABEN 2023-03-08 2023-03-08 Outpatient EL GEORGIANA, SLEH SLE [id number] SLEH 00:00:00 00:00:00 DIPABEN 2023-03-03 2023-03-03 Outpatient EL GEORGIANA, [facility] Inter Rad [id number] SLSL 12:17:20 15:00:00 DIPABEN 2023-03-03 2023-03-03 Outpatient EL BLOCK, [facility] [id number] SLSL 14:18:43 14:18:43 CAROLYN 2023-03-02 2023-03-02 Outpatient EL GEORGIANA, SLE SLE [id number] SLEH 00:00:00 00:00:00 ROMANABELefty 2023-02-26 2023-02-26 Emergency ER POLO, [facility] Emergency [id number] SLEH 15:45:00 22:21:00 ERIKA 2023-02-26 2023-02-26 Emergency ER POLO, [facility] [id number] SLEH 20:13:37 20:13:37 ERIKA 2023-02-26 2023-02-26 Outpatient POLO SLEH SLE [id number] SLEH 00:00:00 00:00:00 ERIKA 2023-02-26 2023-02-26 Outpatient POLO, [facility]H SLE [id number] SLEH 00:00:00 00:00:00 ERIKA 2023-02-21 2023-02-21 Outpatient JOLLY TAYLOR, SLEH SLE [id number] SLEH 11:38:15 23:59:00 DANUTA 2023-02-21 2023-02-21 Outpatient EL GEORGIANA, SLEH SLE [id number] SLEH 08:20:14 11:37:00 ROMANABELefty 2023-02-17 2023-02-17 Outpatient OSVALDO, SLEH SLE [id number] SLEH 08:30:58 23:59:00 DANUTA 2023-02-15 2023-02-17 Inpatient ER HAMIDA, [facility] Med [id number] SLEH 22:54:00 11:59:00 AHMED 2023-02-16 2023-02-16 Outpatient EL BRANN, SLEH SLE [id number] SLEH 06:04:31 23:59:00 CHRISTOPHER 2023-02-04 2023-02-04 Outpatient JOLLY STONER [facility] [id number] SLE 09:09:56 23:59:00 DIPABEN 2023-01-25 2023-01-25 Outpatient JOLLY ALFREDO [facility] [id number] SLE 13:24:47 13:24:47 SAMANTHA 2023-01-20 2023-01-23 Inpatient ER [facility] Emergency [id number] SLE 13:21:00 15:13:00 [facility] 2022-12-29 2023-01-04 [facility] Internal [id number] SLE 12:45:00 18:19:00 KHANNAN Med 2022-12-31 2022-12-[address] [facility] [id number] 08:14:00 09:23:00 Event Terri Concepcion [facility] 2022-12-31 2022-12-[address] [facility] [id number] 08:00:00 09:00:00 [facility] 2022-12-29 2022-12-[address] [facility] [id number] 12:00:00 13:00:00 Visit Amie Gomez [facility] 2022-12-29 2022-12-29 Outpatient EL PATRICIA [facility] [id number] SLE 00:00:00 00:00:00 AMIE 2022-12-29 2022-12-29 Travel [facility] [id number] [facility] 00:[facility]00 00:00:00 [facility] 2022-11-25 2022-12-01 Inpatient ER [facility] General Med [id number] SLE 04:43:00 11:42:00 [facility] 2022-11-25 2022-12-01 [address] Singer [facility] [id number] 04:43:00 11:42:00 En[facility] 2022-11-30 2022-11-[address] [facility] [id number] 08:16[facility]00 09:34:00 [facility] 2022-11-30 Surgery Violet, [facility] [id number] 08:02:00 09:00:00 [facility] Results Test Description Test Time Test Comments Results Result Comments Source BODY FLUID CELL COUNT WITH DIFFERENTIAL 2023-03-16 11:50:04 Test Item Value Reference Range Interpretation Comme nts APPEARANCE FLUID (BEAKER) (test Cloudy Clear A code = 510) COLOR FLUID (BEAKER) (test code = [place] Colorless, Straw A 511) RBC FLUID (BEAKER) (test code = 92177 /cu mm <=1 H 513) TOTAL NUCLEATED CELL COUNT 572 /cu mm <=5 H (BEAKER) (test code = 1442) LINING CELLS/OTHERS DIFF'D 0 (BEAKER) (test code = 1589) ADJUSTED WBC FLUID (BEAKER) (test 572 /cu mm <=5 H code = 1691) LINING CELLS/OTHERS, CALCULATED 0 /cu mm <=1 (BEAKER) (test code = 1590) NEUTROPHILS FLUID (BEAKER) (test 3 % code = 1656) LYMPHS FLUID (BEAKER) (test code 49 % = 488) MONO/MACROPHAGE FLUID (BEAKER) 48 % (test code = 489) EOSINOPHILS FLUID (BEAKER) (test 0 % code = 491) BASO FLUID (BEAKER) (test code = 0 % 492) INTERPRETATION-210 (BEAKER) (test Negative for malignancy code = 2619) [id number] (BEAKER) Shaneka Saab M.D. (test code = 2620) (electronic signature) CONTAINER BODY FLUID (BEAKER) Sterile Cup (test code = 2873) T SPOT [id number] 15:08:38 Test Item Value Reference Range Interpretation Comments T-SPOT TB (BEAKER) (test code = 1683) see scan NEG CONTROL SPOT COUNT (BEAKER) (test see scan code = 1684) PANEL A SPOT (BEAKER) (test code = see scan 1685) PANEL B SPOT (BEAKER) (test code = see scan 1686) POS CONTROL SPOT CT (BEAKER) (test code see scan = 1687) SCAN RESULT (test code = 3991551) XR CHEST 1 VIEW PORTABLE / [id number] 14:45:36 [facility] : 1965 Sex: FChest AP portable semierectComparison exam: 03/11/2023History provided: Status post thoracentesisPleural fluid has been evacuated on the left. No pneumothorax evident.Heart size normal and lungs are clear.Electronically Signed By: Mp Harris03/14/2023 14:47 CDTWorkstation Name: [id number] 14:36:40[facility] BISI PATIENCELEIDY CURTIS : 1965 Sex: FULTRASOUND GUIDED LEFT THORACENTESISHistory provided: Recurrent left pleural effusion secondary to presumedhepatic hydrothorax PROCEDURE: Written informed consent was obtained. The chest was examinedwith ultrasound and a suitable site for thoracentesis was identified inthe left hemithorax. The skin over this area was prepped and draped insterile fashion. Lidocaine 2% was used for local anesthesia. Withultrasound guidance, the pleural space was accessed with a one-stick 5French sheathed needle. Approximately 2100 cc of milky pink fluid wasaspirated. The catheter was removed and a sterile dressing was applied.The patient tolerated the procedure well without apparent complications.The fluid was submitted to the laboratory as requested. IMPRESSION:Uneventful ultrasound guided thoracentesis.Electronically Signed By: Mp Harris03/14/2023 14:56 CDTWorkstation Name: [id number] FLUID CELL COUNT WITH [id number] 18:15:17 Test Item Value Reference Range Interpretation Comments APPEARANCE FLUID Purulent Clear A (BEAKER) (test code = 510) COLOR FLUID (BEAKER) [place] Colorless, Straw A (test code = 511) RBC FLUID (BEAKER) 55500 /cu mm <=1 H (test code = 513) TOTAL NUCLEATED CELL 1485 /cu mm <=5 H COUNT (BEAKER) (test code = 1442) LINING CELLS/OTHERS 10 DIFF'D (BEAKER) (test code = 1589) ADJUSTED WBC FLUID 1350 /cu mm <=5 H (BEAKER) (test code = 1691) LINING CELLS/OTHERS, 135 /cu mm <=1 H CALCULATED (BEAKER) (test code = 1590) NEUTROPHILS FLUID 4 % (BEAKER) (test code = 1656) LYMPHS FLUID (BEAKER) 50 % (test code = 488) MONO/MACROPHAGE FLUID 44 % (BEAKER) (test code = 489) EOSINOPHILS FLUID 2 % (BEAKER) (test code = 491) BASO FLUID (BEAKER) 0 % (test code = 492) INTERPRETATION-210 Agree with the above (BEAKER) (test code = count. Negative for 2619) malignancy VESB-[id number]-467 Shaneka Saba M.D. (BEAKER) (test code = (electronic 2620) signature) CONTAINER BODY FLUID EDTA Tube (BEAKER) (test code = 2873) XR CHEST 1 VIEW PORTABLE / [id number] 12:19:07 [facility] : 1965 Sex: FXR CHEST 1 VIEW PORTABLE / BEDSIDETECHNIQUE: Frontal view(s) of the chest.INDICATION: Post thoracentesisPost thoracentesisCOMPARISON: 03/09/2023FINDINGS/IMPRESSION:Lines/Tubes: NoneLungs/pleura: Low lung volumes. Bibasilar atelectasis. No pleuraleffusion. No pneumothorax, status post left pleural thoracentesis.Heart and Mediastinum: Unremarkable.Soft Tissues and Bones: Unremarkable.Electronically Signed By: Carolyn Block03/11/2023 12:21 CDTWorkstation Name: [id number] 12:16:12 [facility] : 1965 Sex: FPROCEDURE: Ultrasound-guided thoracentesisProcedural PersonnelAttending physician(s): Brayden Coe physician(s): NoneResident physician(s): NoneAdvanced practice provider(s): NonePre-procedure diagnosis: Left pleural effusionPost- procedure diagnosis: SameIndication: Pleural effusion with pain orpressure symptomsAdditional clinical history: NoneComplications: No immediate complications.IMPRESSION:Ultrasound-guided thoracentesis with drainage of 2200 mL of serousfluid.Plan: Resume care by clinical team. PROCEDURE SUMMARY:- Limited thoracic ultrasound- Ultrasound-guided thoracentesis- Additional procedure(s): NonePROCEDURE DETAILS:Pre-procedureConsent: Informed consent for the procedure including risks, benefitsand alternatives wasobtained and time-out was performed prior to theprocedure.Preparation: The site was prepared and draped using maximal sterilebarrier technique including cutaneous antisepsis.Anesthesia/sedationLevel ofanesthesia/sedation: No sedationAnesthesia/sedation administered by: Not applicableTotal intra-service sedation time (minutes): 0Limited thoracic ultrasoundLimited thoracic ultrasound was performed using a curved transducer. Asafe window for thoracentesis was identified. Left hemithorax findings: Large pleural effusionRight hemithorax findings: Not investigatedThoracentesisLocal anesthesia was administered. The pleural space was accessed at anappropriate site marked by ultrasound and fluid return confirmedposition. The fluid was drained. The catheter was removed, and a sterilebandage was applied.Catheter placed: 5F YuehPost-drainage hemithorax findings: Small pleural effusionAdditional DetailsAdditional description of procedure: NoneEquipment details: NoneSpecimens removed: Pleural fluidEstimated blood loss (mL): Less than 10Standardized report: [email or web address]_v3AttestationSigner name: Viral Martinez attest that I was present for the entire procedure. I reviewed thestored images and agree with the report as written.Electronically Signed By: Carolyn Block03/11/2023 12:18 CDTWorkstation Name: [id number] ANTIBODY, [id number] 12:02:16 Test Item Value Reference Range Interpretation Comments RUBELLA IGG QUANTITATION (BEAKER) 39.0 IU/mL <8.0 H (test code = 572) Rubella IgG Result Interpretation: </= 7.0 IU/mL Negative - Presumed non- immune 8.0 - 9.9 IU/mL Equivocal >= 10.0 IU/mL Positive - Presumed immune CYTOMEGALOVIRUS ANTIBODY, [id number] 12:02:15 Test Item Value Reference Range Interpretation Comments CYTOMEGALOVIRUS, IGG (BEAKER) Positive Negative, Equivocal A (test code = 3429) CMV IgG Result Interpretation: </= 0.8 Al Negative 0.9-1.0 Al Equivocal >/=1.1 Al PositiveEBV ANTIBODY, [id number] 12:02:15 Test Item Value Reference Range Interpretation Comments IMANI DENIS VIRAL CAPSID Positive Negative, Equivocal A ANTIGEN IGG (BEAKER) (test code = 3415) Imani Denis Viral Capsid Antigen IgG Result Interpretation: </= 0.8 Al Negative 0.9-1.0 Al Equivocal >/= 1.1 Al PositiveEBV ANTIBODY, [id number] 12:02:15 Test Item Value Reference Range Interpretation Comments IMANI DENIS VIRAL CAPSID Negative Negative, Equivocal ANTIGEN IGM (BEAKER) (test code = 3418) Imani Denis Viral Capsid Antigen IgM Result Interpretation: </= 0.8 Al Negative 0.9-1.0 Al Equivocal >/= 1.1 Al [id number] 11:58:38 Medical Cytology Report Case: [id number] Authorizing Provider: Joseluis Stoner MD Collected:03/08/2023 12:46 PM Ordering Location: [facility] Received: 03/08/2023 01:09 PM Pathologist: Shaneka Saab MD Specimen: Pleural, Left LEFT PLEURAL FLUID (CYTOSPINS AND CELL BLOCK): - NEGATIVE FOR MALIGNANCY Signing Pathologist Direct Phone Line: [phone] signed by Shaneka Saab MD on 03/11/2023 at 11:58 AMThere are rare clusters of atypical cells that stain for positive Calretinin and negative for MOC-31 and Jason-EP4, confirming their mesothelial origin. Negative for vvirdfduyd70184, 35898; 35838; 27813 x 89 y.o. F presenting with left pleural effusion here for left thoracentesis. PMH: asthma, cirrhosis, HTN, abscess (MRSA)LEFT PLEURAL FLUIDA. Pleural, LeftReceived 1100 mls bloody opaque chylous fluid; prepared 4 cytospins and cell block(A2)(collodion bag) - the cell block was fixed in formalin at 10:35 on 03/09/2023 Performed.SatisfactoryThe interpretation of this case included the use of immunohistochemistry or special stains.Calretinin; MOC- 31 and Jason-DQ0Hzcjgzq Slides Examined: In-house known positive controls were evaluated along with the test tissue. These control slides run alongside of the patients sample show appropriate staining. Internal positive and negative controls when available are evaluated Immunohistochemistry technical testing was performed at [facility], Pathology Laboratory where it was developed and its performance characteristics were determined. It has not been cleared or approved by the U.S. Food and Drug Administration. The FDA has determined that such clearance or approval is not necessary. The test is used for clinical purposes. It should not be regarded as investigational or for research. This laboratory is certified under the Clinical Laboratory Improvement Amendments of 1988 (CLIA-88) as qualified to perform high complexity clinical laboratory testing.[facility], Department of Pathology, [address] [place] [address], Qoslpq [facility], Department of Pathology, [address] [place] [address], [facility], [facility] of [facility], [address] [place] [address], QNUD SCREEN, URINE, [id number] 09:09:56 Test Item Value Reference Range Interpretation Comments SCAN RESULT (test code = See scanned report. [id number]) BODY FLUID CULTURE + GRAM [id number] 08:36:33 Test Item Value Reference Range Interpretation Comments CULTURE (BEAKER) (test code = 1095) No growth XR DXA BONE DENSITY [id number] 00:58:42 [facility] : 1965 Sex: FEXAM: XR DXA BONE DENSITY STUDYHISTORY: PRE LIVER TRANSPLANT EVALCOMPARISON: NoneTECHNIQUE: Evaluation ofthe left hip and the lumbar spine was performedutilizing DEXA Hologic bone densitometer. FINDINGS:The study is technically adequate. The patient's fracture risk iscompared to an age-matched control.Left hip femoral neck bone mineral density: 1.068 g/cm2, T-score is1.0, Z-score is 1.9. Lumbar spine total bone mineral density: 1.264 g/cm2, T-score is 2.0,Z-score is 3.3. IMPRESSION:Impression:Left hip bone mineralization is classified as normal. Lumbar spine bone mineralization is classified as normal.National Osteoporosis Foundation recommendations: Postmenopausal women with: -BMD t-scores below -2 by central DXA with no risk factors-BMD t-scores below -1.5 by central DXA with one or more risk factors(first deg relative with hip fracture, prior personal fracture, low bodyweight, smoking)-A prior vertebral or hip fractureAACE (Clinical Endocrinology) recommends treating the following: Postmenopausal women with: -Osteoporosis as diagnosed by fragility fractures or T scores -2.5 orbelow-Risk factors (including family hx of hip fracture, low body weight,smoking, risk of falling, high bone turnover,advancing age) andborderline low BMD T scores of -1.5 or below -Adequate intake of calcium (at least 1200mg/day) and vitamin D (400-800IU/day). -Regular weight bearing and muscle - strengthening exercises-Avoid smoking and excessive alcoholElectronically Signed By: Ken Sauer03/11/2023 01:00 CDTWorkstation Name: [id number] CHEST 2 VIEWS 2023-03-10 14:22:18 [facility] : 1965 Sex: FEXAM: PA and lateral views of the chest.COMPARISON: Chest radiograph 03/08/2023LINICAL HISTORY: PRE LIVERTRANSPLANT EVAL PRE LIVER TRANSPLANT EVALSTATUS post thoracentesis on 03/08/2023 FINDINGS:Lines/tubes: None.Lungs: The lungs are well inflated. Mild subsegmental atelectasis inthe left lower lobe, improved. Right lung is clear. No pulmonary edema.Pleura: Small left pleural effusion, improved. No pneumothorax.Heart and mediastinum: The cardiomediastinal silhouette is normal.Bones and soft tissues: No acute bony abnormalities. Upper abdomen: Unremarkable.IMPRESSION:Small left pleural effusion with adjacent atelectasis, improved since03/08/2023.Electronically Signed By: Lilo Domingo03/10/2023 14:24 CDTWorkstation Name: [id number] ZOSTER ANTIBODY, [id number] 08:09:51 Test Item Value Reference Range Interpretation Comments VARICELLA ZOSTER IGG (AL) (LRNBROOKE) 3.3 (test code = 3197) VARICELLA ZOSTER RESULT INTERPRETATIONS: <=0.8 Al Nonreactive: Presumed non- immune to VZV 0.9-1.0Al Equivocal >=1.1 Al Reactive: Presumed immune to VZV TOXOPLASMA GONDII ANTIBODY, [id number] 08:09:51 Test Item Value Reference Range Interpretation Comments TOXOPLASMA GONDII IGG QUANTITATIVE < IU/mL <10.0 (DANNY) (test code = 3428) Toxoplasma Gondii IgG Result Interpretation: </= 9.9 IU/mL Normal 10-11 IU/mL Equivocal >/= 12IU/mL PositiveBODY FLUID CELL COUNT WITH DIFFERENTIAL 2023-03-09 18:42:15 Test Item Value Reference Range Interpretation Comments APPEARANCE FLUID Turbid Clear A (BEAKER) (test code = 510) COLOR FLUID (BEAKER) [place] Colorless, Straw A (test code = 511) RBC FLUID (BEAKER) 97672 /cu mm <=1 H (test code = 513) TOTAL NUCLEATED CELL 430 /cu mm <=5 H COUNT (BEAKER) (test code = 1442) LINING CELLS/OTHERS 47 DIFF'D (BEAKER) (test code = 1589) ADJUSTED WBC FLUID 293 /cu mm <=5 H (BEAKER) (test code = 1691) LINING CELLS/OTHERS, 137 /cu mm <=1 H CALCULATED (BEAKER) (test code = 1590) NEUTROPHILS FLUID 7 % (BEAKER) (test code = 1656) LYMPHS FLUID (BEAKER) 52 % (test code = 488) MONO/MACROPHAGE FLUID 38 % (BEAKER) (test code = 489) EOSINOPHILS FLUID 3 % (BEAKER) (test code = 491) BASO FLUID (BEAKER) 0 % (test code = 492) INTERPRETATION-210 Agree with the above (BEAKER) (test code = count. Negative for 2619) malignancy [id number] Shaneka Saab M.D. (BEAKER) (test code = (electronic 2620) signature) CONTAINER BODY FLUID EDTA Tube (BEAKER) (test code = 2873) XR MANDIBLE 4 VIEWS [id number] 18:04:10 [facility] : 1965 Sex: FEXAMINATION: XR MANDIBLE 4 VIEWS MIN INDICATION: PRE LIVER TRANSPLANT EVALCOMPARISON: None DISCUSSION:Osseous detail is partially obscured by overlying bones/soft tissues.No acute fracture or osseous abnormality given exam limitations. No joint malalignment or dislocation. The soft tissues are unremarkable. IMPRESSION:No acute osseous abnormality.Electronically Signed By: Deep Soler03/09/2023 18:06 CDTWorkstation Name: [id number] 17:13:55 Test Item Value Reference Range Interpretation Comments T4 TOTAL (BEAKER) (test code = 895) 7.7 ug/dL 4.9-11.7 Leadership Recruiter ID - [id number] 16:33:38 Test Item Value Reference Range Interpretation Comments THYROID STIMULATING HORMONE 4.265 uIU/mL 0.350-4.940 (BEAKER) (test code = 772) Leadership Recruiter ID - MMCARCINOEMBRYONIC ANTIGEN (CEA)2023-03-09 16:33:38 Test Item Value Reference Range Interpretation Comments CARCINOEMBRYONIC ANTIGEN (BEAKER) 2.2 ng/mL 0.0-5.0 (test code = 685) Leadership Recruiter ID - MMHEPATITIS B CORE ANTIBODY, [id number] 16:33:38 Test Item Value Reference Range Interpretation Comments HEPATITIS B CORE IGM ANTIBODY Nonreactive Nonreactive (BEAKER) (test code = 645) Leadership Recruiter ID - MMHIV-1 ANTIGEN WITH HIV-1/2 [id number] 16:33:38 Test Item Value Reference Range Interpretation Comments HIV-1 ANTIGEN WITH HIV 1\\T\\2 Nonreactive Nonreactive ANTIBODY (2) (BEAKER) (test code = 2586) Leadership Recruiter ID - [id number] 15:58:22 Test Item Value Reference Range Interpretation Comments T3 TOTAL (BEAKER) (test code = 0.72 ng/mL 0.60-1.81 656) Leadership Recruiter ID - [id number] 15:40:58 Test Item Value Reference Range Interpretation Comments TRANSFERRIN (BEAKER) (test code = 145 mg/dL 174-382 L 541) Leadership Recruiter ID - MMSpecimen slightly ictericCRYPTOCOCCAL [id number] 14:32:45 Test Item Value Reference Range Interpretation Comments CRYPTOCOCCAL ANTIGEN, SERUM Negative Negative, Interference (BEAKER) (test code = 1828) [id number] 14:32:11 Test Item Value Reference Range Interpretation Comments RPR SCREEN (BEAKER) (test code = Nonreactive Nonreactive 420) HEMOGLOBIN [id number] 13:55:09 Test Item Value Reference Range Interpretation Comments HEMOGLOBIN A1C 4.7 % See_Comment [Automated m essage] ELECTROPHORESIS (BEAKER) The system which (test code = 3811) generated this result transmitted ref erence range: <=5.6%. The reference range was not used to int erpret this result as normal/abnormal . "The A1c is measured using a NGSP-certified method. HbA1c value equal to or greater than 6.5% as thediagnosis cutoff for diabetes. An HbA1c value of 5.7- 6.4% indicates increased risk for diabetes (prediabetes)."Leadership Recruiter ID - ADMOperator ID - ADMBLOOD GAS, [id number] 13:50:57 Test Item Value Reference Range Interpretation Comments PH ARTERIAL (BEAKER) (test code = 7.49 7.35-7.45 H 383) PCO2 ARTERIAL (BEAKER) (test code 31 mm Hg 35-45 L = 384) PO2 ARTERIAL (BEAKER) (test code = 91 mm Hg 80-90 H 385) O2 SATURATION ARTERIAL (BEAKER) 97.6 % 96.0-97.0 H (test code = 386) HCO3 ARTERIAL (BEAKER) (test code 24 mmol/L 21-29 = 388) BASE EXCESS ARTERIAL (BEAKER) 0.9 mmol/L -2.0-3.0 (test code = 387) PATIENT TEMPERATURE (BEAKER) (test 37.0 code = 1818) FIO2 (BEAKER) (test code = 1819) 21.0 VITAMIN D, [id number] 13:45:25 Test Item Value Reference Range Interpretation Comments VITAMIN D 25-OH (BEAKER) (test 17.2 ng/mL 6.6-49.9 code = 2764) Effective 06/22/2017: Reference Range ChangeNew: 6.6-49.9 ng/mL Previous: 13.0- 47.8 ng/mLRecommendedVitamin D Target Range: 30.0-40.0 ng/mLOperator ID - ED [id number] 11:33:41Medical Cytology Report Case: [id number] Authorizing Provider: Joseluis Stoner MD Collected: 03/03/2023 01:57 PM Ordering Location: [facility] Diagnostic Imaging Received: 03/04/2023 11:36 AM Pathologist: Shaneka Saab MD Specimen: Pleural, Left LEFT PLEURAL FLUID (CYTOSPINS AND CELL BLOCK): - NEGATIVE FOR MALIGNANCY - Chronic inflammatory cells present in background Signing Pathologist Direct Phone Line: [phone] signed by Shaneka Saab MD on 03/09/2023 at 11:33 [id number], [id number] y.o. F presenting with left pleural effusion. PMH: asthma, cirrhosis, HTN, abscess (MRSA)LEFT PLEURAL FLUIDA. Pleural, LeftReceived 1100 mls bloody white chylous opaque fluid; prepared 4 cytospins and cell block(A2)(collodion bag) - the cell block was fixed in formalin at 13:05on 03/07/2023 Performed.[facility]. [facility], Department of Pathology, [address] [place], [place] [address], Xjhwjv [facility], Departmentof Pathology, [address] [place] [address], [facility], [facility], [address] [place] [address], [id number] 10:33:02 Test Item Value Reference Range Interpretation Comments ETHANOL (BEAKER) (test code = 400) < mg/dL <=10 Leadership Recruiter ID - MMCOMPREHENSIVE METABOLIC [id number] 10:14:53 Test Item Value Reference Range Interpretation Comments TOTAL PROTEIN 7.3 gm/dL 6.0-8.3 (BEAKER) (test code = 770) ALBUMIN (BEAKER) 2.5 g/dL 3.5-5.0 L (test code = 1145) ALKALINE 93 U/L 40-150 PHOSPHATASE (BEAKER) (test code = 346) BILIRUBIN TOTAL 2.7 mg/dL 0.2-1.2 H (BEAKER) (test code = 377) SODIUM (BEAKER) 135 meq/L 136-145 L (test code = 381) POTASSIUM (BEAKER) 3.6 meq/L 3.5-5.1 (test code = 379) CHLORIDE (BEAKER) 103 meq/L 98-107 (test code = 382) CO2 (BEAKER) (test 22 meq/L 22-29 code = 355) BLOOD UREA 18 mg/dL 7-21 NITROGEN (BEAKER) (test code = 354) CREATININE 1.00 mg/dL 0.57-1.25 (BEAKER) (test code = 358) GLUCOSE RANDOM 92 mg/dL 70-105 (BEAKER) (test code = 652) CALCIUM (BEAKER) 8.4 mg/dL 8.4-10.2 (test code = 697) AST (SGOT) 76 U/L 5-34 H (BEAKER) (test code = 353) ALT (SGPT) 46 U/L 6-55 (BEAKER) (test code = 347) EGFR (BEAKER) 65 Interpretatio n of eGFR (test code = 1092) mL/min/1.[address] age Description sq m Result G1 [place] l or high >=90 G2 Mildly decreased 60-89 G3a Mildl y to moderately 45-5 9 G3b Moderately to s everely 30-44 G4 Severl y decreased 15-29 G5 Kidney failure <15Reported eGF R is based on the CKD-EPI 202 equation that d oes not use a race coefficientEsti mated GFR is not as accur ate as Creatinine Carol moiz in predicting glom erular filtration rate . Estimated GFR is not appl icable for dialysis patien ts Leadership Recruiter ID - MMOperator ID - MMSpecimen slightly [id number] 09:51:32 Test Item Value Reference Range Interpretation Comments MAGNESIUM (BEAKER) (test code = 1.9 mg/dL 1.6-2.6 627) Leadership Recruiter ID - [id number] 09:51:32 Test Item Value Reference Range Interpretation Comments PHOSPHORUS (BEAKER) (test code = 3.3 mg/dL 2.3-4.7 604) Leadership Recruiter ID - MMURIC [id number] 09:51:32 Test Item Value Reference Range Interpretation Comments URIC ACID (BEAKER) (test code = 8.2 mg/dL 2.6-7.2 H 773) Leadership Recruiter ID - MMSpecimen slightly ictericLIPID [id number] 09:51:32 Test Item Value Reference Range Interpretation Comments TRIGLYCERIDES (BEAKER) (test code = 100 mg/dL 540) CHOLESTEROL (BEAKER) (test code = 183 mg/dL 631) HDL CHOLESTEROL (BEAKER) (test code 30 mg/dL = 976) LDL CHOLESTEROL CALCULATED (BEAKER) 133 mg/dL (test code = 633) Triglyceride Reference Range: Low Risk <150 Borderline 150-199 High Risk 200-499 Very High Risk >=500Cholesterol Reference Range: Low Risk <200 Borderline 200-239 High Risk >240HDL Cholesterol Reference Range: Low Risk >=60 High Risk <40LDL Cholesterol Reference Range: Optimal <100 Near Optimal 100-129 Borderline 130-159 High 160-189 Very High >=190 Leadership Recruiter ID - MMSpecimen slightly ictericBILIRUBIN, [id number] 09:51:32 Test Item Value Reference Range Interpretation Comments BILIRUBIN DIRECT (BEAKER) (test 1.0 mg/dL 0.1-0.5 H code = 706) Leadership Recruiter ID - MMGAMMA GLUTAMYL TRANSFERASE (GGT)2023-03-09 09:51:32 Test Item Value Reference Range Interpretation Comments GAMMA GLUTAMYL TRANSFERASE (BEAKER) 51 U/L 9-64 (test code = 364) Leadership Recruiter ID - MMSpecimen slightly ictericPREGNANCY SCREEN, [id number] 09:24:02 Test Item Value Reference Range Interpretation Comments TEST URINE (BEAKER) (test Negative Negative code = 583) [id number] 09:11:02 Test Item Value Reference Range Interpretation Comments FIBRINOGEN LEVEL (BEAKER) (test 229 mg/dl 225-434 code = 658) [id number] 09:11:02 Test Item Value Reference Range Interpretation Comments PARTIAL THROMBOPLASTIN TIME 29.4 seconds 22.5-36.0 (BEAKER) (test code = 760) PROTHROMBIN TIME/[id number] 09:10:24 Test Item Value Reference Range Interpretation Comments PROTIME (BEAKER) (test code = 18.2 seconds 11.9-14.2 H 759) INR (BEAKER) (test code = 370) 1.62 <=5.90 RECOMMENDED COUMADIN/WARFARIN INR THERAPY RANGESSTANDARD DOSE: 2.0 - 3.0 Includes: PROPHYLAXIS for venous thrombosis, systemic embolization; TREATMENT for venous thrombosis and/or pulmonary embolus.HIGH RISK: Target INR is 2.5-3.5 for patients with mechanical heart valves.CBC W/PLT COUNT & AUTO [id number] 08:59:26 Test Item Value Reference Range Interpretation Comments WHITE BLOOD CELL COUNT (BEAKER) 7.9 K/ L 3.5-10.5 (test code = 775) RED BLOOD CELL COUNT (BEAKER) 3.47 M/ L 3.93-5.22 L (test code = 761) HEMOGLOBIN (BEAKER) (test code = 12.2 GM/DL 11.2-15.7 410) HEMATOCRIT (BEAKER) (test code = 35.8 % 34.1-44.9 411) MEAN CORPUSCULAR VOLUME (BEAKER) 103 fL 79-95 H (test code = 753) MEAN CORPUSCULAR HEMOGLOBIN 35.2 pg 25.6-32.2 H (BEAKER) (test code = 751) MEAN CORPUSCULAR HEMOGLOBIN CONC 34.1 GM/DL 32.2-35.5 (BEAKER) (test code = 752) RED CELL DISTRIBUTION WIDTH 14.7 % 11.7-14.4 H (BEAKER) (test code = 412) PLATELET COUNT (BEAKER) (test code 94 K/CU MM 150-450 L = 756) MEAN PLATELET VOLUME (BEAKER) 10.2 fL 9.4-12.3 (test code = 754) NUCLEATED RED BLOOD CELLS (BEAKER) 0 /100 WBC 0-0 (test code = 413) NEUTROPHILS RELATIVE PERCENT 63 % (BEAKER) (test code = 429) LYMPHOCYTES RELATIVE PERCENT 16 % (BEAKER) (test code = 430) MONOCYTES RELATIVE PERCENT 12 % (BEAKER) (test code = 431) EOSINOPHILS RELATIVE PERCENT 8 % (BEAKER) (test code = 432) BASOPHILS RELATIVE PERCENT 1 % (BEAKER) (test code = 437) NEUTROPHILS ABSOLUTE COUNT 4.99 K/ L 1.56-6.13 (BEAKER) (test code = 670) LYMPHOCYTES ABSOLUTE COUNT 1.24 K/ L 1.18-3.74 (BEAKER) (test code = 414) MONOCYTES ABSOLUTE COUNT (BEAKER) 0.95 K/ L 0.24-0.36 H (test code = 415) EOSINOPHILS ABSOLUTE COUNT 0.64 K/ L 0.04-0.36 H (BEAKER) (test code = 416) BASOPHILS ABSOLUTE COUNT (BEAKER) 0.05 K/ L 0.01-0.08 (test code = 417) IMMATURE GRANULOCYTES-RELATIVE 0.50 % 0.00-1.00 PERCENT (BEAKER) (test code = 2801) US [id number] 13:29:33 [facility] : 1965 Sex: FUS THORACENTESISUS Guided Thoracentesis History: pleural effusionPrimary Leadership Recruiter: Goldie Albright MD.Sedation: None. Anesthesia: Lidocaine local infiltration. Estimated blood loss: < 5 cc. Technique: Discussion of risks, benefits, and alternatives were made with thepatient and/or their surrogate, who expressed understanding and agreedto proceed. Informed written consent was obtained. A universal timeoutwas performed prior to starting the procedure. Maximal sterileprecautions were utilized. The procedure room personnel used personalprotective equipment. The operators additionally used sterile surgicalgloves.A preliminary ultrasonography was performed. It showed a pleuraleffusion. A posterior low intercostal access site was selected foraccess. Pertinent ultrasound images were stored to the PACS fordocumentation. The patient was sat on the edge of the stretcher leaningforward onto a table. The access site was sterilely prepped and draped.Local anesthesia was administered. A catheter over the needle system wasadvanced into the pleura. Cloudy light pink fluid was aspirated and theplastic catheter advanced into the pleural space. The catheter was thenconnected to a fluid recovery system. At the end of the procedure, thecatheter was withdrawn and an aseptic dressing applied. The patienttolerated the procedure well. Postprocedure chest x-ray showed no pneumothorax.After uneventful recovery recovery, [facility] Complications: None immediate.Specimen: Sent to the lab. IMPRESSION:Impression: Successful ultrasound-guided thoracentesis of left pleuraleffusion withrecovery of 2.1 liters of pleural fluid. Thank you for the opportunity to assist in thecare of your patient.Electronically Signed By: Goldie Albright03/08/2023 13:31 CDTWorkstation Name: [id number] CHEST 1 VIEW PORTABLE / [id number] 13:05:28 [facility] : 1965 Sex: FXR CHEST 1 VIEW PORTABLE / BEDSIDETECHNIQUE: Frontal view(s) of the chest.INDICATION: Post left sided thoracentesisCOMPARISON: 03/03/2023 chest radiographFINDINGS/IMPRESSION:Lines/Tubes: NoneLungs/pleura: Improved aeration of the left lower lung with mildresidual pleural-parenchymal opacity. No pneumothorax.Heart and Mediastinum: Mildly prominent cardiac silhouette, accentuatedby technique, more so than 03/03/2023. Consider echocardiogramcorrelation.Soft Tissues and Bones: Sclerotic focus in the left glenoid bone, likelybone island, unchanged.Electronically Signed By: Goldie Albright03/08/2023 13:07 CDTWorkstation Name: [id number] CULTURE + SMEAR 2023-03-07 16:58:04 Test Item Value Reference Range Interpretation Comments CULTURE (BEAKER) (test No fungus isolated in code = 1095) 28 days FUNGUS SMEAR (BEAKER) No fungi seen (test code = 1406) BODY FLUID CELL COUNT WITH [id number] 19:21:25 Test Item Value Reference Range Interpretation Comments APPEARANCE FLUID Turbid Clear A (BEAKER) (test code = 510) COLOR FLUID (BEAKER) [place] Colorless, Straw A (test code = 511) RBC FLUID (BEAKER) 26432 /cu mm <=1 H (test code = 513) TOTAL NUCLEATED CELL 513 /cu mm <=5 H COUNT (BEAKER) (test code = 1442) LINING CELLS/OTHERS 0 DIFF'D (BEAKER) (test code = 1589) ADJUSTED WBC FLUID 513 /cu mm <=5 H (BEAKER) (test code = 1691) LINING CELLS/OTHERS, 0 /cu mm <=1 CALCULATED (BEAKER) (test code = 1590) NEUTROPHILS FLUID 6 % (BEAKER) (test code = 1656) LYMPHS FLUID (BEAKER) 36 % (test code = 488) MONO/MACROPHAGE FLUID 58 % (BEAKER) (test code = 489) EOSINOPHILS FLUID 0 % (BEAKER) (test code = 491) BASO FLUID (BEAKER) 0 % (test code = 492) INTERPRETATION-210 Agree with the above (BEAKER) (test code = count. Negative for 2619) malignancy [id number] Shaneka Saab M.D. (BEAKER) (test code = (electronic 2620) signature) CONTAINER BODY FLUID EDTA Tube (BEAKER) (test code = 2873) XR CHEST 1 VIEW PORTABLE / [id number] 15:32:34 [facility] : 1965 Sex: FXR CHEST 1 VIEW PORTABLE / BEDSIDETECHNIQUE: Frontal view(s) of the chest.INDICATION: post thoracentesisCOMPARISON: 02/21/2023FINDINGS/IMPRESSION:Lines/Tubes: NoneLungs/pleura: A lingular/left lower lobe opacity with adjacent leftpleural effusion. No right-sided pleural effusion. No pneumothorax.Heart and M ediastinum: Unremarkable.Soft Tissues and Bones: Unremarkable.Electronically Signed By: Goldie Pappas [facility]03/03/2023 15:34 CDTWorkstation Name: [id number] 14:52:49 [facility] : 1965 Sex: FPROCEDURE: Ultrasound-guided thoracentesisProcedural PersonnelAttending physician(s): Brayden Coe physician(s): NoneResident physician(s): NoneAdvanced practice provider(s): NonePre-procedure diagnosis: Large left pleural effusionPost-procedure diagnosis: SameIndication: Pleural effusion with pain or pressure symptomsAdditional clinical history: NoneComplications: No immediate complications.IMPRESSION:Ultrasound-guided thoracentesis with drainage of 1900 mL ofserosanguinous fluid.Plan: [facility] by clinical team. PROCEDURE SUMMARY:- Limited thoracic ultrasound- Ultrasound-guided thoracentesis- Additional procedure(s): NonePROCEDURE DETAILS:Pre-procedureConsent: Informed consent for the procedure including risks, benefitsand alternatives was obtained and time-out was performed prior to theprocedure.Preparation: The site was pre pared and draped using maximal sterilebarrier technique including cutaneous antisepsis.Anesthesia/sedationLevel of anesthesia/sedation: No sedationAnesthesia/sedation administered by: Not applicableTotal intra-service sedation time (minutes): 0Limited thoracic ultrasoundLimited thoracic ultrasound wasperformed using a curved transducer. Asafe window for thoracentesis was identified. Left hemithorax findings: Large pleural effusionRight hemithorax findings: Not investigatedThoracentesisLocal anesthesia was administered. The pleural space was accessed underreal-time ultrasound guidance and fluid return confirmed position. Thefluid was drained. The catheter was removed, and a sterile bandage wasapplied.Catheter placed: 5F YuehPost-drainage hemithorax findings: Moderate pleural effusionAdditional DetailsAdditional description of procedure: NoneEquipment details: NoneSpecimens removed: Pleural fluidEstimated blood loss (mL): Less than 10Standardized report: SIR_Thoracentesis_v3AttestationSigner name: Carolyn Martinez attest that I was present for the entire procedure. I reviewed thestored images and agree with the report as written.Electronically Signed By: Carolyn Block03/03/2023 15:04 CDTWorkstation Name: [id number] LAB [id number] 14:03:21 Test Item Value Reference Range Interpretation Comments SCAN RESULT (test see scanned report See scanned report. code = [id number]) see scanned reportCT BRAIN WITHOUT IV [id number] 20:48:50 [facility] DOB: 1965 Sex: FEXAM: CT BRAIN WITHOUT IV CONTRASTINDICATION: Mental status change, unknown causeTECHNIQUE: CT images from skull base to vertex without IV contrast.This exam was performed according to the departmental doseoptimizationprogram which includes automated exposure control, adjustment of the mAand/or kV according to the patient size, and/or use of an iterativereconstruction technique.COMPARISON: None.FINDINGS: Parenchyma: No evidence of acute infarction. No hemorrhage. No mass ormass effect.Extra-axial Collection: NoneVentricular System: NormalOsseous Structures: No acute osseous abnormality. Included Orbits: NormalParanasal Sinuses: Predominantly clearTympanomastoid Cavities: NormalOther: NoneIMPRESSION:Noacute intracranial abnormality.Electronically Signed By: Erika Almazan02/26/2023 20:50 CDTWorkstation Name: [id number] METABOLIC [id number] 18:18:27 Test Item Value Reference Range Interpretation Comments TOTAL PROTEIN 7.9 gm/dL 6.0-8.3 Specimen sligh tly (BEAKER) (test hemolyzed code = 770) ALBUMIN (BEAKER) 2.7 g/dL 3.5-5.0 L Specimen sl ightly (test code = 1145) hemolyzed ALKALINE 86 U/L 40-150 PHOSPHATASE (BEAKER) (test code = 346) BILIRUBIN TOTAL 2.1 mg/dL 0.2-1.2 H Specimen sli ghtly (BEAKER) (test hemolyzed code = 377) SODIUM (BEAKER) 134 meq/L 136-145 L (test code = 381) POTASSIUM (BEAKER) 4.2 meq/L 3.5-5.1 Specimen slightly (test code = 379) hemolyzed CHLORIDE (BEAKER) 103 meq/L 98-107 (test code = 382) CO2 (BEAKER) (test 21 meq/L 22-29 L code = 355) BLOOD UREA 21 mg/dL 7-21 NITROGEN (BEAKER) (test code = 354) CREATININE 1.29 mg/dL 0.57-1.25 H Specimen slight ly (BEAKER) (test hemolyzed code = 358) GLUCOSE RANDOM 89 mg/dL 70-105 (BEAKER) (test code = 652) CALCIUM (BEAKER) 8.3 mg/dL 8.4-10.2 L (test code = 697) AST (SGOT) 62 U/L 5-34 H Specimen slight ly (BEAKER) (test hemolyzed code = 353) ALT (SGPT) 39 U/L 6-55 Specimen slight ly (BEAKER) (test hemolyzed code = 347) EGFR (BEAKER) 48 Interpretatio n of eGFR (test code = [...] not appl icable for dialysis patien ts Leadership Recruiter ID - MITUL BSpecimen slightly [id number] 18:18:27 Test Item Value Reference Range Interpretation Comments LIPASE (BEAKER) (test code = 749) 65 U/L 8-78 Leadership Recruiter ID - MITUL BSpecimen slightly ictericCBC W/PLT COUNT & AUTO [id number] 18:18:20 Test Item Value Reference Range Interpretation Comments WHITE BLOOD CELL COUNT (BEAKER) 6.8 K/ L 3.5-10.5 (test code = 775) RED BLOOD CELL COUNT (BEAKER) 3.65 M/ L 3.93-5.22 L (test code = 761) HEMOGLOBIN (BEAKER) (test code = 12.8 GM/DL 11.2-15.7 410) HEMATOCRIT (BEAKER) (test code = 36.7 % 34.1-44.9 411) MEAN CORPUSCULAR VOLUME (BEAKER) 101 fL 79-95 H (test code = 753) MEAN CORPUSCULAR HEMOGLOBIN 35.1 pg 25.6-32.2 H (BEAKER) (test code = 751) MEAN CORPUSCULAR HEMOGLOBIN CONC 34.9 GM/DL 32.2-35.5 (BEAKER) (test code = 752) RED CELL DISTRIBUTION WIDTH 15.1 % 11.7-14.4 H (BEAKER) (test code = 412) PLATELET COUNT (BEAKER) (test code 91 K/CU MM 150-450 L = 756) MEAN PLATELET VOLUME (BEAKER) 11.6 fL 9.4-12.3 (test code = 754) NUCLEATED RED BLOOD CELLS (BEAKER) 1 /100 WBC 0-0 H (test code = 413) NEUTROPHILS RELATIVE PERCENT 59 % (BEAKER) (test code = 429) LYMPHOCYTES RELATIVE PERCENT 19 % (BEAKER) (test code = 430) MONOCYTES RELATIVE PERCENT 13 % (BEAKER) (test code = 431) EOSINOPHILS RELATIVE PERCENT 8 % (BEAKER) (test code = 432) BASOPHILS RELATIVE PERCENT 1 % (BEAKER) (test code = 437) NEUTROPHILS ABSOLUTE COUNT 4.00 K/ L 1.56-6.13 (BEAKER) (test code = 670) LYMPHOCYTES ABSOLUTE COUNT 1.30 K/ L 1.18-3.74 (BEAKER) (test code = 414) MONOCYTES ABSOLUTE COUNT (BEAKER) 0.87 K/ L 0.24-0.36 H (test code = 415) EOSINOPHILS ABSOLUTE COUNT 0.54 K/ L 0.04-0.36 H (BEAKER) (test code = 416) BASOPHILS ABSOLUTE COUNT (BEAKER) 0.06 K/ L 0.01-0.08 (test code = 417) IMMATURE GRANULOCYTES-RELATIVE 0.30 % 0.00-1.00 PERCENT (BEAKER) (test code = 2801) [id number] 18:04:10 Test Item Value Reference Range Interpretation Comments AMMONIA (BEAKER) (test 40 mol/L 18-72 Speci men slightly code = 348) hemolyzed Leadership Recruiter ID - ADMINBODY FLUID CULTURE + GRAM [id number] 11:35:18 Test Item Value Reference Range Interpretation Comments CULTURE (BEAKER) (test code = 1095) No growth [id number] 12:49:07Medical Cytology Report Case: [id number] Authorizing Provider: Joseluis Stoner MD Collected:02/21/2023 11:49 AM Ordering Location: [facility] Received: 02/22/2023 09:24 AM Pathologist: Salvador Davenport MD Specimen: Pleural, Left LEFT PLEURAL FLUID (CYTOSPINS AND CELL BLOCK): - NEGATIVE FOR MALIGNANCY Reactive mesothelial cells and mixed inflammatory cells present Signing Pathologist Direct Phone Line: [phone] signed by Salvador Davenport MD on 02/23/2023 at 12:49 [id number], [phone] y.o. F with a PMH of HTN, asthma, Cifuentes cirrhosis, esophageal varices, refractory ascites and hepatic hydrothorax. Also with gallstones/biliary obstruction needing axial stent placement who was admitted to OSH for nausea and emesis x one day and transferred to [facility] for further evaluation and considerationof choleystitis / cholelithiasis. LEFT PLEURAL FLUIDA. Pleural, LeftReceived 1100 ml gelatinous orange cream fluid; prepared 4 cytospins and cell block(A2)(collodion bag) - the cell block was fixed in formalin at 16:07 on 3Performed.[facility], [facility] of [facility], [address] [place] [address], [facility], [facility], [address] [place] [address], [facility], [facility] of [facility], [address] [place] [address], VO [id number] 15:34:35 [facility] PATIENCE PAREDES EVER : 1965 Sex: FUltrasound guided left thoracentesis.Clinical History: Left pleural effusion.Modality: Ultrasound.Sedation: None. Nursery School Teacher: Danuta Corralistant: None. Estimated Blood Loss: 1ccSpecimen: 1700 cc of cloudy serosanguineous fluid. Technique: Informed consent was obtained. The risks of pain, bleeding,infection, lung collapse/pneumothorax, injury to adjacent structures,and adverse medication reactions were discussed with the patient. Thepatient's left hemithorax was scanned from the back, withthe patient rowena sitting position. After the largest fluid pocket area was marked, theskin was prepped and draped in the usual sterile manner. The area wasanesthetized with 2% lidocaine, a 5 F one-step c atheter was advancedinto the pleural space under ultrasound guidance. After completion ofdrainage, the catheter was removed. There was no evidence of immediatecomplication. Post procedure chest x-ray demonstrated no pneumothorax. IMPRESSION:Impression:Successful and uncomplicated ultrasound guided left thoracentesis.BODY FLUID CELL COUNT WITH [id number] 13:54:05 Test Item Value Reference Range Interpretation Comments APPEARANCE FLUID (BEAKER) (test Turbid Clear A code = 510) COLOR FLUID (BEAKER) (test code [place] Colorless, Straw A = 511) RBC FLUID (BEAKER) (test code = 74449 /cu mm <=1 H 513) TOTAL NUCLEATED CELL COUNT 1660 /cu mm <=5 H (BEAKER) (test code = 1442) LINING CELLS/OTHERS DIFF'D 0 (BEAKER) (test code = 1589) ADJUSTED WBC FLUID (BEAKER) 1660 /cu mm <=5 H (test code = 1691) LINING CELLS/OTHERS, CALCULATED 0 /cu mm <=1 (BEAKER) (test code = 1590) NEUTROPHILS FLUID (BEAKER) 3 % (test code = 1656) LYMPHS FLUID (BEAKER) (test 73 % code = 488) MONO/MACROPHAGE FLUID (BEAKER) 24 % (test code = 489) EOSINOPHILS FLUID (BEAKER) 0 % (test code = 491) BASO FLUID (BEAKER) (test code 0 % = 492) CONTAINER BODY FLUID (BEAKER) EDTA Tube (test code = 2873) XR CHEST 1 VIEW PORTABLE / [id number] 12:41:37 [facility] PAT[facility]ENCE PAR[facility] : 1965 Sex: FINDICATION: s/p left thoraCOMPARISON: 02/17/2023TECHNIQUE: Single frontal view of the chest.FINDINGS: Lines, tubes, and devices: None.Lungs and pleura: Clear lungs. No pneumothorax.Heart and mediastinum: Normal heart size. Unremarkable mediastinalcontours.Osseous structures: No acute abnormality. Mild to moderate spondylosisand facet arthropathy are present within the spine.Other: None.IMPRESSION:No acute intrathoracic abnormality.US [id number] 13:20:59[facility] PAT[facility]ENCE PAR[facility] : 1965 Sex: FUltrasound guided left thoracentesis.Clinical History: Left pleural effusion.Modality: Ultrasound.Sedation: None. Nursery School Teacher: Danuta VERONICACAssistant: None. Estimated Blood Loss: 1ccSpecimen: 1700 cc of cloudy serosanguineous fluid. Technique: Informed consent was obtained. The risks of pain, bleeding,infection, lung collapse/pneumothorax, injury to adjacent structures,and adverse medication reactions were discussed with the patient. Thepatient's left hemithorax was scanned from the back, withthe patient rowena sitting position. After the largest fluid pocket area was marked, theskin was prepped and draped in the usual sterile manner. The area wasanesthetized with 2% lidocaine, a 5 F one-step c atheter was advancedinto the pleural space under ultrasound guidance. After completion ofdrainage, the catheter was removed. There was no evidence of immediatecomplication. Post procedure chest x-ray demonstrated no pneumothorax. IMPRESSION:Impression:Successful and uncomplicated ultrasound guided left thoracentesis.US ABDOMEN [id number] 13:20:53 [facility] BISI PATIENCELEIDY CURTIS : 1965 Sex: FHistory: Ascites. PROCEDURE: Limited sonographic examination of the abdomen was performed inpreparation for planned ultrasound-guided paracentesis. Limitedsonographic examination of the abdomen showed only a trace amount ofperihepatic and midline fluid. Therefore, paracentesis was notperformed. IMPRESSION:1. Trace ascites, not enough for planned paracentesis.XR CHEST 1 VIEW PORTABLE / [id number] 08:45:23[facility] BISI PATIENCE REED : 1965 Sex: FChest AP portableCOMPARISON STUDY: 02/16/2023History provided: Status post left thoracentesisPleural fluid has been evacuated on the left. No pneumothorax. Lungs areclear. Heart size normal.COMPREHENSIVE METABOLIC [id number] 05:08:14 Test Item Value Reference Range Interpretation Comments TOTAL PROTEIN 6.6 gm/dL 6.0-8.3 (BEAKER) (test code = 770) ALBUMIN (BEAKER) 2.5 g/dL 3.5-5.0 L (test code = 1145) ALKALINE 73 U/L 40-150 PHOSPHATASE (BEAKER) (test code = 346) BILIRUBIN TOTAL 1.7 mg/dL 0.2-1.2 H (BEAKER) (test code = 377) SODIUM (BEAKER) 136 meq/L 136-145 (test code = 381) POTASSIUM (BEAKER) 4.9 meq/L 3.5-5.1 (test code = 379) CHLORIDE (BEAKER) 109 meq/L 98-107 H (test code = 382) CO2 (BEAKER) (test 21 meq/L 22-29 L code = 355) BLOOD UREA 24 mg/dL 7-21 H NITROGEN (BEAKER) (test code = 354) CREATININE 1.10 mg/dL 0.57-1.25 (BEAKER) (test code = 358) GLUCOSE RANDOM 74 mg/dL 70-105 (BEAKER) (test code = 652) CALCIUM (BEAKER) 8.0 mg/dL 8.4-10.2 L (test code = 697) AST (SGOT) 58 U/L 5-34 H (BEAKER) (test code = 353) ALT (SGPT) 38 U/L 6-55 (BEAKER) (test code = 347) EGFR (BEAKER) 58 Interpretatio n of eGFR [...] not appl icable for dialysis patien ts Leadership Recruiter ID - MMSpecimen slightly ictericPROTHROMBIN TIME/[id number] 04:59:05 Test Item Value Reference Range Interpretation Comments PROTIME (BEAKER) (test code = 19.0 seconds 11.9-14.2 H 759) INR (BEAKER) (test code = 370) 1.64 <=5.90 RECOMMENDED COUMADIN/WARFARIN INR THERAPY RANGESSTANDARD DOSE: 2.0 - 3.0 Includes: PROPHYLAXIS for venous thrombosis, systemic embolization; TREATMENT for venous thrombosis and/or pulmonary embolus.HIGH RISK: Target INR is 2.5-3.5 for patients with mechanical heart valves.CBC W/PLT COUNT & AUTO [id number] 04:48:06 Test Item Value Reference Range Interpretation Comments WHITE BLOOD CELL COUNT (BEAKER) 4.1 K/ L 3.5-10.5 (test code = 775) RED BLOOD CELL COUNT (BEAKER) 3.10 M/ L 3.93-5.22 L (test code = 761) HEMOGLOBIN (BEAKER) (test code = 10.8 GM/DL 11.2-15.7 L 410) HEMATOCRIT (BEAKER) (test code = 32.0 % 34.1-44.9 L 411) MEAN CORPUSCULAR VOLUME (BEAKER) 103 fL 79-95 H (test code = 753) MEAN CORPUSCULAR HEMOGLOBIN 34.8 pg 25.6-32.2 H (BEAKER) (test code = 751) MEAN CORPUSCULAR HEMOGLOBIN CONC 33.8 GM/DL 32.2-35.5 (BEAKER) (test code = 752) RED CELL DISTRIBUTION WIDTH 14.6 % 11.7-14.4 H (BEAKER) (test code = 412) PLATELET COUNT (BEAKER) (test code 56 K/CU MM 150-450 L = 756) MEAN PLATELET VOLUME (BEAKER) 10.4 fL 9.4-12.3 (test code = 754) NUCLEATED RED BLOOD CELLS (BEAKER) 0 /100 WBC 0-0 (test code = 413) NEUTROPHILS RELATIVE PERCENT 48 % (BEAKER) (test code = 429) LYMPHOCYTES RELATIVE PERCENT 26 % (BEAKER) (test code = 430) MONOCYTES RELATIVE PERCENT 15 % (BEAKER) (test code = 431) EOSINOPHILS RELATIVE PERCENT 10 % (BEAKER) (test code = 432) BASOPHILS RELATIVE PERCENT 1 % (BEAKER) (test code = 437) NEUTROPHILS ABSOLUTE COUNT 1.99 K/ L 1.56-6.13 (BEAKER) (test code = 670) LYMPHOCYTES ABSOLUTE COUNT 1.07 K/ L 1.18-3.74 L (BEAKER) (test code = 414) MONOCYTES ABSOLUTE COUNT (BEAKER) 0.62 K/ L 0.24-0.36 H (test code = 415) EOSINOPHILS ABSOLUTE COUNT 0.39 K/ L 0.04-0.36 H (BEAKER) (test code = 416) BASOPHILS ABSOLUTE COUNT (BEAKER) 0.04 K/ L 0.01-0.08 (test code = 417) IMMATURE GRANULOCYTES-RELATIVE 0.20 % 0.00-1.00 PERCENT (BEAKER) (test code = 2801) CBC (HEMOGRAM ONLY)2023-02-17 04:44:09 Test Item Value Reference Range Interpretation Comments WHITE BLOOD CELL COUNT (BEAKER) 4.1 K/ L 3.5-10.5 (test code = 775) RED BLOOD CELL COUNT (BEAKER) 3.10 M/ L 3.93-5.22 L (test code = 761) HEMOGLOBIN (BEAKER) (test code = 10.8 GM/DL 11.2-15.7 L 410) HEMATOCRIT (BEAKER) (test code = 32.0 % 34.1-44.9 L 411) MEAN CORPUSCULAR VOLUME (BEAKER) 103 fL 79-95 H (test code = 753) MEAN CORPUSCULAR HEMOGLOBIN 34.8 pg 25.6-32.2 H (BEAKER) (test code = 751) MEAN CORPUSCULAR HEMOGLOBIN CONC 33.8 GM/DL 32.2-35.5 (BEAKER) (test code = 752) RED CELL DISTRIBUTION WIDTH 14.6 % 11.7-14.4 H (BEAKER) (test code = 412) PLATELET COUNT (BEAKER) (test code 56 K/CU MM 150-450 L = 756) MEAN PLATELET VOLUME (BEAKER) 10.4 fL 9.4-12.3 (test code = 754) NUCLEATED RED BLOOD CELLS (BEAKER) 0 /100 WBC 0-0 (test code = 413) SODIUM, RANDOM [id number] 21:11:21 Test Item Value Reference Range Interpretation Comments SODIUM URINE (BEAKER) (test code = 20 meq/L 243) Reference Range: No NormalsOperator ID - ADMINURINALYSIS [id number] 21:04:51 Test Item Value Reference Range Interpretation Comments RBC UA (BEAKER) (test code = 519) 20 /HPF WBC UA (BEAKER) (test code = 520) 4 /HPF BACTERIA (BEAKER) (test code = Occasional 517) SQUAMOUS EPITHELIAL (BEAKER) (test 4 /HPF code = 516) Leadership Recruiter ID - techURINALYSIS WITH MICROSCOPIC IF [id number] 21:02:38 Test Item Value Reference Range Interpretation Comments COLOR (BEAKER) (test code = 470) Light Yellow CLARITY (BEAKER) (test code = Clear 469) SPECIFIC GRAVITY UA (BEAKER) 1.006 1.001-1.035 (test code = 468) PH UA (BEAKER) (test code = 467) 7.0 5.0-8.0 PROTEIN UA (BEAKER) (test code = Negative Negative 464) GLUCOSE UA (BEAKER) (test code = Negative Negative 365) KETONES UA (BEAKER) (test code = Negative Negative 371) BILIRUBIN UA (BEAKER) (test code Negative Negative = 462) BLOOD UA (BEAKER) (test code = Large Negative A 461) NITRITE UA (BEAKER) (test code = Negative Negative 465) LEUKOCYTE ESTERASE UA (BEAKER) Negative Negative (test code = 466) UROBILINOGEN UA (BEAKER) (test 0.2 0.2-1.0 code = 463) SOURCE(BEAKER) (test code = 2795) Leadership Recruiter ID - techXR CHEST 1 VIEW PORTABLE / [id number] 09:34:56 [facility] : 1965 Sex: FINDICATION: cough, recent left pleural effusionCOMPARISON: NoneTECHNIQUE: Single frontal view of the chest.FINDINGS: Lungs and pleura: Mild basilar subsegmental atelectasis. Questionabletrace left effusion.Heart and mediastinum: Normal heart size. Unremarkable mediastinalcontours.Osseous structures: No acute abnormality.Other: None.IMPRESSION:Mild basilar subsegmental atelectasis. Questionable trace left e ffusion.HEPATIC FUNCTION [id number] 06:43:05 Test Item Value Reference Range Interpretation Comments TOTAL PROTEIN (BEAKER) (test code = 7.3 gm/dL 6.0-8.3 770) ALBUMIN (BEAKER) (test code = 1145) 2.6 g/dL 3.5-5.0 L BILIRUBIN TOTAL (BEAKER) (test code 2.2 mg/dL 0.2-1.2 H = 377) BILIRUBIN DIRECT (BEAKER) (test 0.9 mg/dL 0.1-0.5 H code = 706) ALKALINE PHOSPHATASE (BEAKER) (test 74 U/L 40-150 code = 346) AST (SGOT) (BEAKER) (test code = 62 U/L 5-34 H 353) ALT (SGPT) (BEAKER) (test code = 42 U/L 6-55 347) Leadership Recruiter ID - ADMINSpecimen slightly ictericBASIC METABOLIC [id number] 06:43:04 Test Item Value Reference Range Interpretation Comments SODIUM (BEAKER) 137 meq/L 136-145 (test code = 381) POTASSIUM 4.5 meq/L 3.5-5.1 (BEAKER) (test code = 379) CHLORIDE (BEAKER) 107 meq/L 98-107 (test code = 382) CO2 (BEAKER) 22 meq/L 22-29 (test code = 355) BLOOD UREA 31 mg/dL 7-21 H NITROGEN (BEAKER) (test code = 354) CREATININE 1.21 mg/dL 0.57-1.25 (BEAKER) (test code = 358) GLUCOSE RANDOM 76 mg/dL 70-105 (BEAKER) (test code = 652) CALCIUM (BEAKER) 8.1 mg/dL 8.4-10.2 L (test code = 697) EGFR (BEAKER) 52 Interpretatio n of eGFR (test code = [...] not appl icable for dialysis patien ts Leadership Recruiter ID - ADMINSpecimen slightly ictericCBC W/PLT COUNT & AUTO [id number] 06:02:40 Test Item Value Reference Range Interpretation Comments WHITE BLOOD CELL COUNT (BEAKER) 5.3 K/ L 3.5-10.5 (test code = 775) RED BLOOD CELL COUNT (BEAKER) 3.32 M/ L 3.93-5.22 L (test code = 761) HEMOGLOBIN (BEAKER) (test code = 11.7 GM/DL 11.2-15.7 410) HEMATOCRIT (BEAKER) (test code = 34.9 % 34.1-44.9 411) MEAN CORPUSCULAR VOLUME (BEAKER) 105 fL 79-95 H (test code = 753) MEAN CORPUSCULAR HEMOGLOBIN 35.2 pg 25.6-32.2 H (BEAKER) (test code = 751) MEAN CORPUSCULAR HEMOGLOBIN CONC 33.5 GM/DL 32.2-35.5 (BEAKER) (test code = 752) RED CELL DISTRIBUTION WIDTH 15.1 % 11.7-14.4 H (BEAKER) (test code = 412) PLATELET COUNT (BEAKER) (test code 65 K/CU MM 150-450 L = 756) MEAN PLATELET VOLUME (BEAKER) 10.4 fL 9.4-12.3 (test code = 754) NUCLEATED RED BLOOD CELLS (BEAKER) 0 /100 WBC 0-0 (test code = 413) NEUTROPHILS RELATIVE PERCENT 56 % (BEAKER) (test code = 429) LYMPHOCYTES RELATIVE PERCENT 22 % (BEAKER) (test code = 430) MONOCYTES RELATIVE PERCENT 11 % (BEAKER) (test code = 431) EOSINOPHILS RELATIVE PERCENT 9 % (BEAKER) (test code = 432) BASOPHILS RELATIVE PERCENT 1 % (BEAKER) (test code = 437) NEUTROPHILS ABSOLUTE COUNT 2.98 K/ L 1.56-6.13 (BEAKER) (test code = 670) LYMPHOCYTES ABSOLUTE COUNT 1.17 K/ L 1.18-3.74 L (BEAKER) (test code = 414) MONOCYTES ABSOLUTE COUNT (BEAKER) 0.58 K/ L 0.24-0.36 H (test code = 415) EOSINOPHILS ABSOLUTE COUNT 0.49 K/ L 0.04-0.36 H (BEAKER) (test code = 416) BASOPHILS ABSOLUTE COUNT (BEAKER) 0.05 K/ L 0.01-0.08 (test code = 417) IMMATURE GRANULOCYTES-RELATIVE 0.60 % 0.00-1.00 PERCENT (BEAKER) (test code = 2801) [id number] 18:46:14Medical Cytology Report Case: [id number] Authorizing Provider: Joseluis Stoner MD Collected:02/04/2023 02:25 PM Ordering Location: [facility] Radiology Ultrasound Received: 02/08/2023 08:26 AM Pathologist: Simon Corona MD Specimen: Pleural, Left LEFT PLEURAL FLUID (CYTOSPINS AND CELL BLOCK): -NEGATIVE FOR MALIGNANCY - Reactive mesothelial cells, histiocytes, and lymphocytes Signing Pathologist Direct Phone Line: [phone] signed by Simon Croona MD on 02/09/2023 at 6:46 PM8 [id number], [id number] y.o. F with h/o CIFUENTES cirrhosis decompensated with EV, hydrothorax HTN, abscess (MRSA),asthma.LEFT PLEURAL FLUIDA. Pleural, LeftReceived 1100 ml orange cream fluid; prepared 4 cytospins and cell block(A2)(collodion bag) - the cell block was fixed in formalin at 16:44 on 3Performed .[facility], Department of Pathology, [address] [place] [address], [facility], [address] [place] [address], [facility], [facility] of [facility], [address] [place] [address], GLXN FLUID CULTURE + GRAM [id number] 13:30:56 Test Item Value Reference Range Interpretation Comments CULTURE (BEAKER) (test code = 1095) No growth BODY FLUID CELL COUNT WITH [id number] 17:29:30 Test Item Value Reference Range Interpretation Comments APPEARANCE FLUID (BEAKER) (test Bloody Clear A code = 510) COLOR FLUID (BEAKER) (test code Red Colorless, Straw A = 511) RBC FLUID (BEAKER) (test code = 80611 /cu mm <=1 H 513) TOTAL NUCLEATED [...] EDTA Tube (test code = 2873) U/S, [id number] 16:18:00SAURABH NICOLE MD Laterality?- >LeftLabs to be Ordered:->Body Fluid Culture (w/Gram Stain, C\\T\\S)AFB smear and culture Labs to be Ordered:->CytologyLabs to be Ordered:->Fungal CultureLabs to be Ordered:->Glucose+LDH+ProteinLabs to be Ordered:->Cell CountLabs to be Ordered:->Other (please add comment)Reason for Exam:- >recurrent left pleural effusion [facility] : 1965 Sex: FFINAL REPORT Ultrasound guided left thoracentesis. Clinical History: Left pleural effusion. Modality: Ultrasound. Sedation: None. Nursery School Teacher: Danuta Taylor PA-C Contract Driver: None. Estimated Blood Loss: 1cc Specimen: 1100 cc of cloudy serosanguineous fluid. Technique: Informed consent was obtained. The risks of pain, bleeding, infection, lung collapse/pneumothorax, injury to adjace nt structures, and adverse medication reactions were discussed with the patient. The patient's left hemithorax was scanned from the back, with the patient in a sitting position. After the largest fluidpocket area was marked, the skin was prepped and draped in the usual sterile manner. The area was anesthetized with 2% lidocaine, a 5 F one-step catheter was advanced into the pleural space under ultrasound guidance. After completion of drainage, the catheter was removed. There was no evidence of immediate complication. Post procedure chest x-ray is pending. Impression:Successful and uncomplicated ultrasound guided left thoracentesis. Signed: Lee Diaz Verified Date/Time: 02/04/2023 16:18:02 Reading Location: [address] Ultrasound Reading Room Electronically signed by: Cirilo GROSSMAN 02/04/2023 04:18 PMRAD, CHEST, 1 VIEW, NON DEPT 2023-02-04 15:10:00SAURABH NICOLE MD Reason for exam:->s/p left thoraShould this be performed at the bedside?->YesIn [facility] : 1965 Sex: [...] complication post left thoracentesis. Signed: Chano Enriquez MDReport Verified Date/Time: 02/04/2023 15:10:45 CBC W/PLT COUNT & AUTO [id number] 16:57:36 Test Item Value Reference Range Interpretation [...] (BEAKER) (test code = 2801) HEPATIC FUNCTION [id number] 16:17:22 Test Item Value Reference Range Interpretation [...] (test code = 42 U/L 6-55 [id number]) Leadership Recruiter ID - BSSpecimen slightly ictericBASIC METABOLIC [id number] 16:17:21 Test Item Value Reference Range Interpretation [...] decreased 60-89 G3a Mildl y to moderately 45- 59 G3b Moderately to s everely 30-44 G4 Severl y decreased 15-29 G5 Kidney failure <15Reported eGF R is based on the CKD-EPI 2020 equation that d oes not use a race coefficientEsti mated GFR is not as accur ate as Creatinine Carol moiz in predicting glom erular filtration rate . Estimated GFR is not appl icable for dialysis patien ts Leadership Recruiter ID - BSSpecimen slightly ictericPROTHROMBIN TIME/[id number] 16:05:29 Test Item Value Reference Range Interpretation Comments PROTIME (BEAKER) (test code = 18.5 seconds 11.9-14.2 H 759) INR (BEAKER) (test code = 370) 1.58 <=5.90 RECOMMENDED COUMADIN/WARFARIN INR THERAPY RANGESSTANDARD DOSE: 2.0 - 3.0 Includes: PROPHYLAXIS for venous thrombosis, systemic embolization; TREATMENT for venous thrombosis and/or pulmonary embolus.HIGH RISK: Target INR is 2.5-3.5 for patients with mechanical heart valves.BLOOD [id number] 16:00:58 Test Item Value Reference Range Interpretation Comments CULTURE (BEAKER) (test No growth in 5 days code = 1095) The specimen volume collected for this blood culture was below the optimum (10 mL per bottle or 20 mL total). Use of lower volumes may adversely affect recovery and/or detection times of some organisms.BLOOD [id number] 16:00:58 Test Item Value Reference Range Interpretation Comments CULTURE (BEAKER) (test No growth in 5 days code = 1095) The specimen volume collected for this blood culture was below the optimum (10 mL per bottle or 20 mL total). Use of lower volumes may adversely affect recovery and/or detection times of some organisms.[id number] 14:39:22 Medical Cytology Report Case: [id number] Authorizing Provider: Naheed Villalta MD Collected: 01/21/2023 08:44 AM Ordering Location: [address] Received: 01/21/2023 03:34 PM Service Pathologist: Hany Ferrer MD Specimen: Pleural, Left LEFT PLEURAL FLUID (CYTOSPINS AND CELL BLOCK): - NEGATIVE FOR MALIGNANCY BLOOD WITH REACTIVE MESOTHELIAL CELLS AND MIXED CHRONIC INFLAMMATORY CELLS Signing Pathologist Direct Phone Line: [phone] signed by Hany Ferrer MD on 01/24/2023 at 2:39 [id number], [id number] y.o. F with h/o HTN, asthma, decompensated CIFUENTES cirrhosis associated with esophageal varices, ascites, and hydrothorax, gallstones with previous admission 11/2022 for biliary obstruction s/p axios stent deemed not a surgical candidate for cholecystectomy, and later for fluid overload and had para and thora done with aggressive diuresis came to Er for similar complain od SOB and OSH CXR showed fluid in left pleural space.LEFT PLEURAL FLUIDA. Pleural, LeftReceived 1100 ml bloody gelatinous lupe fluid; prepared 4 cytospins and cell block(A2)- the cell block was fixed in formalin at 16:38 on 3Performed.[facility], [facility] of [facility]ology, [address] [place] [address], [facility], [facility] of Pathology, [address] [place] [address], [facility], Department of [facility]ology, [address] [place] [address], PVBF FLUID CULTURE + GRAM [id number] 14:24:35 Test Item Value Reference Range Interpretation Comments CULTURE (BEAKER) (test code = 1095) No growth CALCIUM, [id number] 05:18:15 Test Item Value Reference Range Interpretation Comments CALCIUM IONIZED (BEAKER) (test 1.08 mmol/L 1.12-1.27 L code = 698) PH, BLOOD (BEAKER) (test code = 7.45 4130) COMPREHENSIVE METABOLIC [id number] 04:54:27 Test Item Value Reference Range Interpretation [...] not appl icable for dialysis patien ts Leadership Recruiter ID - ADMINSpecimen slightly [id number] 04:53:09 Test Item Value Reference Range Interpretation Comments PHOSPHORUS (BEAKER) (test code = 3.1 mg/dL 2.3-4.7 604) Leadership Recruiter ID - [id number] 04:53:08 Test Item Value Reference Range Interpretation Comments MAGNESIUM (BEAKER) (test code = 1.8 mg/dL 1.6-2.6 627) Leadership Recruiter ID - ADMINCBC W/PLT COUNT & AUTO [id number] 04:36:32 Test Item Value Reference Range Interpretation [...] 0.00-1.00 PERCENT (BEAKER) (test code = 2801) COMPREHENSIVE METABOLIC [id number] 04:44:22 Test Item Value Reference Range Interpretation [...] not appl icable for dialysis patien ts Leadership Recruiter ID - MMSpecimen slightly ictericCBC W/PLT COUNT [...] PERCENT (BEAKER) (test code = 2801) U/S, [id number] 18:07:00SAURABH NICOLE MD Laterality?- >Left Reason for exam:->SHORTNESS OF BREATH Reason for exam:->ABNORMAL IMAGING RESULT Labs to be Ordered:->Body Fluid Culture (w/Gram Stain, C\\T\\S) Labsto be Ordered:->Cytology Labs to be Ordered:->Glucose+LDH+Protein Labs to be Ordered:->CellCount [facility] : 1965 Sex: FFINAL REPORT Ultrasound guided left-sided thoracentesis. Clinical History: Left pleural effusion. Modality: Ultrasound. Sedation: None. Nursery School Teacher: Carlos Ruelas PA-C Contract Driver: None.Estimated Blood Loss: 1cc Specimen: 2450 cc [...] MDReport Verified Date/Time: 01/21/2023 18:07:57 Reading Location: [address] Ultrasound Reading Room BODY FLUID CELL COUNT WITH [id number] 16:39:03 Test Item Value Reference Range Interpretation [...] = 2873) RAD, CHEST, 1 VIEW, NON [id number] 09:48:00SAURABH NICOLE MD Reason for exam:->s/p left thoracentesisShould this be performed [facility] the [facility]?->[facility]: BISI, PATIENCE EVER : 1965 Sex: FFINAL REPORT Exam: RAD, CHEST, 1 VIEW, NON DEPTDate: 01/21/2023 9:47 AM Indication:s/p left thoracentesisComparison: Chest radiograph from yesterday. IMPRESSION: Lines/Tubes:None Lungs and Pleura : Decreased volume of left pleural fluid after thoracentesis. No pneumothorax. Lung volumes are low with scattered bronchovascular crowding. Heart/Mediastinum:The cardiomediastinal silhouetteis normal in size and contour. Bones/Soft Tissues: No acute osseous abnormality. Upper abdomen: Unremarkable. Signed: Lee Diaz MDReport Verified Date/Time: 01/21/2023 09:48:04 Electronically signedby: LEE DIAZ MD on 01/21/2023 09:48 AMCOMPREHENSIVE METABOLIC [id number] 05:25:17 Test Item Value Reference Range Interpretation [...] (test code = 347) EGFR (BEAKER) 71 Interpretatio n of eGFR (test code = 1092) mL/min/1.[address] age Description sq m Result G1 [place] l or high >=90 G2 Mildly decreased 60-89 G3a Mildl y to moderately 45-5 9 G3b Moderately to s everely 30-44 G4 Severl y decreased 15-29 G5 Kidne y failure <15Reported eGF R is based on the CKD-EPI 2020 equation that d oes not use a race coefficientEsti mated GFR is not as accur ate as Creatinine Carol moiz in predicting glom erular filtration rate . Estimated GFR is not appl icable for dialysis patien ts Leadership Recruiter ID - mmSpecimen slightly ictericLACTIC ACID, [id number] 05:14:06 Test Item Value Reference Range Interpretation Comments LACTATE BLOOD VENOUS (2) (BEAKER) 1.43 mmol/L 0.50-2.00 (test code = 2872) Leadership Recruiter ID - mmSpecimen slightly ictericCBC (HEMOGRAM ONLY)2023-01-21 [...] WBC 0-0 (test code = 413) PROTHROMBIN TIME/[id number] 00:49:25 Test Item Value Reference Range Interpretation [...] valves.CT, CHEST WITH IV CONTRAST- PE TEST [id number] 17:44:00SAURABH NICOLE MD Unlisted Reason for Exam - Click Yes and Enter Reason Below->No [facility] : 1965 Sex: FFINAL REPORT TECHNIQUE: CT [...] MDReport Verified Date/Time: 01/20/2023 17:44:58 LACTIC ACID, [id number] 16:27:23 Test Item Value Reference Range Interpretation Comments LACTATE BLOOD VENOUS 2.52 mmol/L 0.50-2.00 H Specime n slightly (2) (BEAKER) (test hemolyzed code = 2872) Leadership Recruiter ID - ADMINSpecimen slightly ictericRAD, CHEST, 1 VIEW, NON DEPT 2023-01-20 15:36:00SAURABH NICOLE MD Reason for exam:->SHORTNESS OF BREATHReason for exam:->ABNORMAL IMAGING RESULTShould this be performed at the bedside?->Yes [facility] PAR[facility] EVER : 1965 Sex: FFINAL REPORT INDICATION: SHORTNESS OF BREATHABNORMAL IMAGING RESULT COMPARISON: 12/30/2022 TECHNIQUE: Single frontal view of the chest. IMPRESSION: Lungs and pleura: Moderate left pleural effusion with adjacent left basilar airspace opacities similar to previous. Right lung is clear. Heart and mediastinum: Normal heart size. Unremarkable mediastinal contours. Osseous structures: No acute abnormality. Other: None. Signed: Erika Almazan MDReport Verified Date/Time: 01/20/2023 15:36:18 HIGH SENSITIVITY TROPONIN [id number] 15:35:54 Test Item Value Reference Range Interpretation Comments HIGH SENSITIVITY TROPONIN I (test 8 pg/ml <=17 code = 3294423) Leadership Recruiter ID - ADMINThe WEB PROGRAMMER STAT High Sensitivity Troponin-I results should be used in conjunction with other diagnostic information such as ECG, clinical observations and information, and patientsymptoms to aid in the diagnosis of PR. HCG, QUANTITATIVE, [id number] 15:35:54 Test Item Value Reference Range Interpretation Comments GONADOTROPIN, CHORIONIC (HCG) QUANT < mIU/mL 0-10 (BEAKER) (test code = 649) Non- Females: <10 mIU/mL Females: Gestation Age Reference Range(mIU/mL) 0.2-1 Week 5-50 1-2 Weeks 50-500 2-3 Weeks 100-5,000 3-4 Weeks 500-10,000 4-5 Weeks 1,000-50,000 5-6 Weeks 10,000-100,000 6-8 Weeks 15,000- 200,000 2-3 Months 10,000-100,000 Leadership Recruiter ID - ADMINB-TYPE NATRIURETIC FACTOR (BNP)2023-01-20 15:33:30 Test Item Value Reference Range Interpretation Comments B-TYPE NATRIURETIC PEPTIDE (BEAKER) 11 pg/mL 0-100 (test code = 700) Leadership Recruiter ID - ADMINCOMPREHENSIVE METABOLIC [id number] 15:29:09 Test Item Value Reference Range Interpretation [...] not appl icable for dialysis patien ts Leadership Recruiter ID - ADMINSpecimen slightly [id number] 15:29:09 Test Item Value Reference Range Interpretation Comments LIPASE (BEAKER) (test code = 749) 61 U/L 8-78 Leadership Recruiter ID - ADMINSpecimen slightly [id number] 15:29:08 Test Item Value Reference Range Interpretation Comments MAGNESIUM (BEAKER) 1.9 mg/dL 1.6-2.6 Specimen markedly (test code = 627) hemolyzed Leadership Recruiter ID - ADMINLACTIC ACID, [id number] 15:25:00 Test Item Value Reference Range Interpretation Comments LACTATE BLOOD VENOUS 3.00 mmol/L 0.50-2.00 H Specime n markedly (2) (BEAKER) (test hemolyzed code = 2872) Leadership Recruiter ID - ADMINSpecimen slightly [id number] 15:17:14 Test Item Value Reference Range Interpretation Comments PARTIAL THROMBOPLASTIN TIME 29.9 seconds 22.5-36.0 (BEAKER) (test code = 760) PROTHROMBIN TIME/[id number] 15:16:12 Test Item Value Reference Range Interpretation [...] mechanical heart valves.CBC W/PLT COUNT & AUTO [id number] 15:12:40 Test Item Value Reference Range Interpretation [...] (BEAKER) (test code = 2801) pH, body [id number] 02:37:54 Test Item Value Reference Range Interpretation Comments pH, Body Fluid 7.6 (test code = 2748-2) PH FLUID TYPE Body fluid Reference (test code = range:Reference 27571-0) ranges have not been established on thistype of flu id for this test. EDILBERTO (test code Performing Lab *CHRISTOPHER = EDILBERTO) [facility]/[place] [address] [place] [address] Stephane Jeffers MD, PhD [facility] CenterCOMPREHENSIVE METABOLIC [id number] 06:51:38 Test Item Value Reference Range Interpretation [...] 1092) DATA TO CALCULA TE ESTIMATED GFR. Leadership Recruiter ID - MARCOSpecimen slightly [id number] 06:11:49 Test Item Value Reference Range Interpretation Comments PHOSPHORUS (BEAKER) (test code = 3.6 mg/dL 2.3-4.7 604) Leadership Recruiter ID - [id number] 06:11:48 Test Item Value Reference Range Interpretation Comments MAGNESIUM (BEAKER) (test code = 1.7 mg/dL 1.6-2.6 627) Leadership Recruiter ID - MARCOCBC W/PLT COUNT & AUTO [id number] 05:40:48 Test Item Value Reference Range Interpretation [...] PERCENT (BEAKER) (test code = 2801) CALCIUM, [id number] 05:33:21 Test Item Value Reference Range Interpretation Comments CALCIUM IONIZED (BEAKER) (test 1.05 mmol/L 1.12-1.27 L code = 698) PH, BLOOD (BEAKER) (test code = 7.50 1810) BLOOD [id number] 00:01:46 Test Item Value Reference Range Interpretation Comments CULTURE (BEAKER) (test No growth in 5 days code = 1095) The specimen volume collected for this blood culture was below the optimum (10 mL per bottle or 20 mL total). Use of lower volumes may adversely affect recovery and/or detection times of some organisms.[id number] 19:31:37 Test Item Value Reference Range Interpretation Comments Case Report (test code Medical Cytology = 104) Report Case: [id number] Authorizing Provider: Marisabel Ho MD Collected: 12/30/2022 09:33 AM Ordering Location: [address] Received: 12/30/2022 01:05 PM Service Pathologist: Lilibeth Mello MD Specimen: Pleural, Left DIAGNOSIS (test code = c2spwJJyOGPss6gkFSLhjR 3220) FuZzEwMzNcZnRuYmpcdWMx IHtccnRmMVxlcGljMTAyMD TnGW9niFuzoZd8aBscLXSi ldW6vNXgSSnzx6sxGCR0i2 cvpwabVJDhXHrrSl0ldWRw vDxjZkOtNLOiOKo1kF70XJ YcvX2huBRsMJd2ZGHgkAIh qdMeRiCoXWDemEByhTL2LF UgZD9uueqyXYsoPSgyLXCa tyZ9CHLoxVJuG5LlAASdEY 4oxkhpIXU8SJepCFFsRJL4 PkQmUDBiv5Ghfej7WxSpuR FyZFxwbGFpblxmczIwIExF RlQgUExFVVJBTCBGTFVJRC IoL4vWS7QRGQ0BDOUHIQXQ BTrYQCYBB7XUKRclpAmpYN AgICAtICBORUdBVElWRSBG T0JsXAIMZTnWAH2FSDsfPH IgICAgLSAgQmVuaWduIGFu NFXeRPMquVy9BUMvQEUswT ofjPeecUFaMOtrydMkDB2m uIBaCUrakEroKUE5cJWxIK 4hYOGdmr7gaFYjpR6snKCj sDT1uI6pYKglICP3c3fifQ YxXHNzdGUxODAwMFxhbnNp ESUaYubexigvALAfLBV7tv YuIQHgZPniOOKiFDpnUn2g dZPftMysCbUbKDHfl2sdky TNyxyyoPl8q3rlVXBrPeG7 gMOtLKpdH4wcisMlgTWaWN TnRIj7iB22XTQzmW0nxVQl XEduupDiZlK9KYghRVGnWn U2QRIgnIXiPHNnT5ceKLFm CMjjBVOiEWobmGEoGPP6yC phf5R6dRNazBYciCjqTwSw GkBcBvCLo4VtWRp9nQqwM8 WzIFYsLbU1qKCdWBNsNYkp BNKdBTYhagX8pH14OPfcrq S7fFFim0Sbj36hn930lR9m bQMbMLL1ZWVcLAGttLVtZU YlZJJ2IGZlsDRxG2vyWBQw DB4ptgwdIWxdTIbsPCNwqA X9FAUkrJIdQ7QvTWKqJKdv QANpqsi5BtLcDk5ozTQslE xdMIvbh9vuf4fxqXSvMoi4 UNWvFnTrQwjcHTrmv5Jjn9 phWMLmql3hUIG5nNPlnAot n5V1tDToNKQqbBYpABKkFL 4vbCDdZNMndQ5obsniRXQa YnJkcmhlYWRccGdicmRyZm 6nfWweZLJ6CXosV8ivcN0x PxZ7QZppN2vlkZ3eKRh7SQ zjTIWiiZH2uvX5NMVbhFRf C2KbmU9eGJMhGH0gymn3c5 rgQLA0XIwcAQLtZzZ9kjG7 NDBcaGVhZGVyeTcyMFxmb2 81VUR2OfHfUEMpe9EpY5Ze xJueG89noRdfZ04hLTFrzO cleO2sqXdxwS5lYvKrBrEl RDefsXjgKD6sWLPiB6worK AvZRTiRJEkE0ueIeMaiB9o ePhcRAslywDmXUXeXnp7RU YgdNJjRKKvVej7BFSuPIMq G58monztIXO8jJ0et8rti8 YqGMwuJYE7IQHzr85tCClf yoB0DBlmGd75SFkvKAS2GR pccGFyfX0= CPT Code(s) (test code c6cyzZLvUOYqwUAaRPDlMB = 3357) tizgUkWLYymJFsH5Gzijvz CLsgRC8yHY1zgMgljKYfgC LtMDGcEmZit1hao719nALi m6rrFBVAnvzctZc1sJkjE5 8vn3W6VcuwV75zhVWsFUF1 MPViMXLtlVSfKOPaROK3LG IzbBMuZ3xkOOHiUR5pijbe CVanOUndZLHzqIE2SBTcxY LeD4ChAKXuPEapNGDlodz1 ThOpRs7xzWIxoTyjHOlhSM JkXHBsYWluXGZzMjAgODgx HLfsFAj0VvO6USIolo6= CLINICAL DATA (test j7nxyESbXFOhcPImYGObFI code = 3357) qbstPvBOMypAUbX0Vbkwhj ULhrXG4jVV2ciIxmdZUbeP ElVTYlKbCuw6yav177dNCl c1ukJGNClbggmRs9eBehC0 1sb7L9KmeaF41pgCUtOIX6 ASFxZYFwiXDoYIHzSNW0PI XpcQUqW9esAMFzPP2cbgve KUztNWprQWFqxIA8CPInpU JjY5RkRUUfHYhoBIXybzh8 WiBxTd1plVZirVzwYXnnPY JkXHBsYWluXGZzMjAgNTgg pX2oSsw+Rlx+o6l2mNAkY2 9eTJUne32oRZ7pQGZmQGPM JGFKWGOyqrWxy6EgtmMcS9 FrAFNzpNjxB0XflSJ2FQUu T9GgHQKby4LamDPgPFBjyx GljSfbzt87oI1yFWxiIG9w HNitc6SdhaYdOPejcTlpjo MePX52NUZscSbqf1vzwfZn ZdWcMnZqMf9oAFAwbItnqp dqm7MbxGJ7X1Gyz94iin5n IST6rQ2vADQ8YQ89AWFgQV 1fOYGgu1OkBZOxuMPmgGPp kEDrUU1cyUNndDBvQg4kID Agp8tnX0mjyVHdzM8lgUdc tpyAIttbSF5qMINnmBzmOS X3rjKbh8NcnbVaHMLkrt0p YT60jQYkIGXbRYDiAe4sTD K8KOn0UCJei15jQY1kLOSs BNY8nMPalFJvIlTcAhOylR yfWXxtjGMubiaadd2bwF5r EQ51ANJez4FxDQRpbvYsu0 rfsdIdWATjYB2gELScWVH3 nJ6feXYcdU== SPECIMEN SOURCE (test v8deuOSbZSLpsXYlVPZoCC code = 3377) msarVsJCQgoTRyE6Glaowy PRmoOL2hNM7kzXrivSHddJ KhMEHsGoIru3dar869qXCz v1xyWSOIzkiykNz0oFuxE4 9ow5K5EdnmY57miJPaIWB0 GTBcRADyuXOeILLtOPT5BS NxiUNcH3miDNKvXW4zkvcb XJlhRKfhSSJeiIE1SARhmC IfQ7QlNBHiVFrxOGNzrak1 YbJxLz9daQUnfNkkTFrqUM JkXHBsYWluXGZzMjAgTEVG VCBQTEVVUkFMIEZMVUlEXH Bhcn0= GROSS DESCRIPTION (test c2bslPOdHRDwtXQjLNCfPK code = 1747478413) ryxtMkQBEpkTYqT7Cdmkme QQavCH4kFA6rsChciMVgzP GyBCHyJwMqu8vjy557vHJf l4okGZTTebmmcVf0oTyjH4 2pv5E6HpvyH93phEKhGSC1 ZWBgINOrmGLlLFPeVQL5YI ZjcCPgL5ahACObVN7wrrxz JPgjBQcoTCNuvCU7YBJmmY ByN1FfVUIbRMpgUAKpydc9 YeNfUz3cwOZgeZisPTndLm mwfQsjv1LdsBCkNEmpERWp SHWiNHzlBBThQ5IPJFOeYF A5Alh3EoBaWlPHQGA2KhNf XofwQYUDCRTbCYz6AgD9EC l6AaKRLcYtGCBuQBWuHEBm RXFiYU5nEBxtkCDyTPorRf ziWHewH223ILzoVICvE4Af K9EfQHzdAFJ7CAFgYwObVX YkNC6YEmWqZEkxJRW6TEJv ZHe2YOb6TN5MQeZgWJHhPu obKZs1MMXqSPz4MAvvOF7F LSqmCJu1Lev6TjD7JEi9Hx BcXHQgMiBcXHNzIDMgXFxm lWRcWD8ucBcrRYIgNZOfTS raEHWiGfPrZB3xLUutrPCh bCwgTGVmdFxwYXJccGFyZF wjZxKoJIZfcOUEl3YtFBka RNNwETZdpWTZt8FqHHqouO RcmpojgeVkEBKkR8KvrtBd SDJrYCFqdUluZCOnw26ijB BmbHVpZDsgcHJlcGFyZWQg IKPgkBZra7HqftFaMQ1cKI WxnUhoFsccA8otROBpXPEw hZujAZxsflQzTOfdNG9yeS pwGYImiDyvSktfI6yhs0Gj CFQpuNRwDCixGGDmkt6xyP vgTQE9ZJSoUeCaJD2bQTU6 OhKlNaTsUoOhz3jgpEhgl4 FmmQSuQS05ZMMpuXYcKPX1 QC8mbLanXGA6 MICROSCOPIC DESCRIPTION w9gpiIOjYSSbkGCnBIOsWT (test code = 3371) plctLsEYAzaSRnX4Rwghfv UMwwXY3lZW9prVtwqJBybH BlXGUtWeSes2ahg010uIYl n6qbMDUHfoegaJy0xLhyR9 7jd6M8GhxaY76olGQdTMF3 PWVzUDRuiDEpCERzYFF6YQ MnkVHmA8ksRSTsOO8jbkjv BQsqMRgjTVZoeGU2ITXlqV DoC5IyPQFtDBndLOIktnq6 PmCxKi8roAWwtScuRPjiWT JkXHBsYWluXGZzMjAgUGVy Gb8emIEcBghvAZEhiKVdMC xwYXJ9 STATEMENT OF ADEQUACY Satisfactory (test code = 2757) Gross assessment was [facility] performed at ([facility], = 2777) Department of Pathology, [address] [place] [address], Technical component was [facility] performed at ([facility], = 2778) Department of Pathology, [address] [place] [address], Professional component [facility] was performed at ([facility], code = 2779) Department of Pathology, [address] [place], [place] [address], [facility] Center[facility]Y2023-04-24 19:31:37Medical Cytology Report Case: [id number] Authorizing Provider: Marisabel Ho MD Collected: 09:33 AM Ordering Location: [address] Received: 12/30/2022 01:05 PM Service Pathologist: Lilibeth Mello MD Specimen: Pleural, Left LEFT PLEURAL FLUID (CYTOSPINS AND CELL BLOCK): - NEGATIVE FOR MALIGNANCY - Benign and reactive mesothelial cells admixed with acute and chronic infla mmation Signing Pathologist Direct Phone Line: [phone] signed by Lilibeth Mello MD on 01/03/2023 at 7:31 [id number], [id number] y.o. F with h/o decompensated CIFUENTES cirrhosis c/b esophageal varices, ascites, and hydrothorax, [...] fixed in formalin at 13:50 on 12/30/2022 Performed.[facility], Department of Pathology, [address] [place] [address], [facility], [facility] of [facility], [address] [place] [address], [facility], Department of Pathology, [address] [place] [address], CMIWNTXQTYJOH METABOLIC [id number] 07:49:18 Test Item Value Reference Range Interpretation [...] 1092) DATA TO CALCULA TE ESTIMATED GFR. Leadership Recruiter ID - DBOperator ID - MARIOSpecimen slightly [id number] 07:48:02 Test Item Value Reference Range Interpretation Comments MAGNESIUM (BEAKER) (test code = 1.7 mg/dL 1.6-2.6 627) Leadership Recruiter ID - DBOperator ID - MARIOCOMPREHENSIVE METABOLIC [id number] 06:48:02 Test Item Value Reference Range Interpretation [...] 1092) DATA TO CALCULA TE ESTIMATED GFR. Leadership Recruiter ID - HENRIQUE GSpecimen slightly [id number] 06:47:07 Test Item Value Reference Range Interpretation Comments MAGNESIUM (BEAKER) (test code = 1.8 mg/dL 1.6-2.6 627) Leadership Recruiter ID - HENRIQUE GBody fluid culture + gram [id number] 17:31:13 Test Item Value Reference Range Interpretation Comments Result (test code = 6463-4) No growth Lab Interpretation (test code = Normal 50976-4) [facility] CenterBODY FLUID CULTURE + GRAM [id number] 17:31:13 Test Item Value Reference Range Interpretation Comments CULTURE (BEAKER) (test code = 1095) No growth BODY FLUID CULTURE + GRAM [id number] 17:31:13 Test Item Value Reference Range Interpretation Comments CULTURE (BEAKER) (test code = 1095) No growth COMPREHENSIVE METABOLIC [id number] 06:01:19 Test Item Value Reference Range Interpretation [...] 1092) DATA TO CALCULA TE ESTIMATED GFR. Leadership Recruiter ID - ADMINSpecimen slightly ictericCALCIUM, [id number] 05:59:45 Test Item Value Reference Range Interpretation Comments CALCIUM IONIZED (BEAKER) (test 1.04 mmol/L 1.12-1.27 L code = 698) PH, BLOOD (BEAKER) (test code = 7.44 1810) [id number] 05:59:10 Test Item Value Reference Range Interpretation Comments MAGNESIUM (BEAKER) (test code = 1.9 mg/dL 1.6-2.6 627) Leadership Recruiter ID - [id number] 05:59:10 Test Item Value Reference Range Interpretation Comments PHOSPHORUS (BEAKER) (test code = 2.6 mg/dL 2.3-4.7 604) Leadership Recruiter ID - ADMINPROTHROMBIN TIME/[id number] 05:38:46 Test Item Value Reference Range Interpretation [...] mechanical heart valves.CBC W/PLT COUNT & AUTO [id number] 05:34:48 Test Item Value Reference Range Interpretation [...] code = 2801) 2D Echo W/Doppler(CW/PW/Color)2022-12-31 17:29:02Ejection FractionSST. [facility] 2022-12-31 12:46:54 Test Item Value Reference Range Interpretation Comments EMORY TITER (BEAKER) (test code = :160 1541) EMORY PATTERN (BEAKER) (test code = Homogeneous 1781) ANTI-NUCLEAR ANTIBODY (EMORY)2022-12-31 12:46:31 Test Item Value Reference Range Interpretation Comments ANTI-NUCLEAR ANTIBODY (EMORY) (BEAKER) Positive Negative A (test code = 418) Test performed by IFA method.MISCELLANEOUS LAB [id number] 09:11:47 Test Item Value Reference Range Interpretation Comments SCAN RESULT (test code = SEE SCANNED RESULTS 0838055) Protein, Total, Peritoneal [id number] 08:59:02PROTEIN, TOTAL, PERITONEAL FLUID12/31/2022 8:59 AM CDTGreenDot Trans DIAG[facility]IC [facility] CenterAlbum[facility], body [id number] 08:58:38Albumin, Fluid12/31/2022 8:58 AM CDTSSELECT [facility] LABORATORYReference Range: No Normals Assay performance has not been validated for this type of specimen.[facility] CenterProtein, [facility], Pleural [id number] 08:56:30PROTEIN, TOTAL, PLEURAL FLUID12/31/2022 8:56 AM EyeNetraTGreenDot Trans DIAGNOSTIC [facility] CenterLactate Dehydrogenase (LD), Pleural [id number] 08:56:06Lactate Dehydrogenase (LD), Pleural Fluid12/31/2022 8:56 AM Supramed DIAGNOSTIC [facility] CenterGlucose Pleural [id number] 08:55:45Glucose, Pleural Fluid 12/31/2022 8:55 AM Supramed DIAGNOSTIC [facility] Albumin Pleural [id number] 08:54:47Albumin, Pleural Fluid12/31/2022 8:54 AM Supramed DIAGNOSTIC [facility] CenterMISCELLANEOUS LAB [id number] 08:54:04 Test Item Value Reference Range Interpretation Comments SCAN RESULT (test code = SEE SCANNED RESULTS 2026031) Bilirubin, [id number] 08:54:04Scan Cjdkrv5612/31/2022 8:54 AM CDStephens Memorial HospitalCOMPREHENSIVE METABOLIC [id number] 05:33:20 Test Item Value Reference Range Interpretation [...] 1092) DATA TO CALCULA TE ESTIMATED GFR. Leadership Recruiter ID - marioSpecimen slightly [id number] 05:31:31 Test Item Value Reference Range Interpretation Comments MAGNESIUM (BEAKER) (test code = 1.8 mg/dL 1.6-2.6 627) Leadership Recruiter ID - [id number] 05:31:31 Test Item Value Reference Range Interpretation Comments PHOSPHORUS (BEAKER) (test code = 2.4 mg/dL 2.3-4.7 604) Leadership Recruiter ID - marioPROTHROMBIN TIME/[id number] 05:24:04 Test Item Value Reference Range Interpretation [...] mechanical heart valves.CBC W/PLT COUNT & AUTO [id number] 05:23:22 Test Item Value Reference Range Interpretation [...] PERCENT (BEAKER) (test code = 2801) CALCIUM, [id number] 05:07:52 Test Item Value Reference Range Interpretation Comments CALCIUM IONIZED (BEAKER) (test 1.05 mmol/L 1.12-1.27 L code = 698) PH, BLOOD (BEAKER) (test code = 7.45 1810) Amylase Peritoneal [id number] 18:35:20 Test Item Value Reference Range Interpretation [...] specimen).This test has been modified from the maintenance carpenter's instructions and its performance characteristics were determined by [facility]. The laboratory is regulated under CLIA as qualified to perform high-complexity testing. This test has not been cleared or approved by the U.S. Food and Drug Administration. The reference intervals and other method performance specifications are unavailable for amylase in peritoneal fluid. Comparison of this result with the blood amylase is recommended. [facility] [id number] 18:35:20 Test Item Value Reference Range Interpretation Comments AMYLASE, PERITONEAL FLUID (BEAKER) 17 (test code = 3067616) Amylase activity in peritoneal fluids of non-pancreatic origin is often less than or equal to the amylase activity in blood, whereas elevated amylase activity has been reported in fluid of pancreatic origin (five-folds or higher compared to contemporaneously collected blood specimen).This test has been modified from the maintenance carpenter's instructions and its performance characteristics were determined by [facility]. The laboratory is regulated under CLIA as qualified to perform high-complexity testing. This test has not been cleared or approved by the U.S. Food and Drug Administration. The reference intervals and other method performance specifications are unavailable for amylase in peritoneal fluid. Comparison of this result with the blood amylase is recommended.[id number] 18:13:56 Test Item Value Reference Range Interpretation Comments FERRITIN (BEAKER) (test code = 273.41 ng/mL 361) Leadership Recruiter ID - ADMINHEPATITIS B SURFACE [id number] 17:41:49 Test Item Value Reference Range Interpretation Comments HEPATITIS B SURFACE ANTIBODY < mIU/mL <8.0 (BEAKER) (test code = 647) Leadership Recruiter ID - ADMINHEPATITIS A ANTIBODY, [id number] 17:41:49 Test Item Value Reference Range Interpretation Comments HEPATITIS A IGG ANTIBODY (BEAKER) Reactive Nonreactive A (test code = 2797) Leadership Recruiter ID - ADMINALPHA FETOPROTEIN (AFP), TUMOR [id number] 17:40:44 Test Item Value Reference Range Interpretation Comments ALPHA-FETOPROTEIN (BEAKER) (test 3.2 ng/mL <10.0 code = 1094) Leadership Recruiter ID - ADMINHEPATITIS B CORE ANTIBODY, [id number] 17:40:44 Test Item Value Reference Range Interpretation Comments HEPATITIS B CORE TOTAL ANTIBODY Nonreactive Nonreactive (BEAKER) (test code = 497) Leadership Recruiter ID - ADMINHEPATITIS B SURFACE [id number] 17:40:43 Test Item Value Reference Range Interpretation Comments HEPATITIS B SURFACE ANTIGEN (2) Nonreactive Nonreactive (BEAKER) (test code = 2585) Specimen is considered negative for HBsAg.HEPATITIS C [id number] 17:39:02 Test Item Value Reference Range Interpretation Comments HEPATITIS C ANTIBODY (BEAKER) Nonreactive Nonreactive (test code = 367) Leadership Recruiter ID - ADMINIRON, TIBC, % SAT. (WITHOUT FERRITIN)2022-12-30 17:19:01 Test Item Value Reference Range Interpretation Comments IRON (BEAKER) (test code = 547) 81.0 ug/dL 40.0-160.0 TOTAL IRON BINDING CAPACITY 108 ug/dL 250-450 L (BEAKER) (test code = 769) IRON % SATURATION (2) (BEAKER) 75 % 20-55 H (test code = 2590) Leadership Recruiter ID - ADMINCOMPREHENSIVE METABOLIC [id number] 16:25:30 Test Item Value Reference Range Interpretation [...] 1092) DATA TO CALCULA TE ESTIMATED GFR. Leadership Recruiter ID - ADMINSpecimen moderately ictericLACTATE DEHYDROGENASE (LDH) 2022-12-30 16:17:54 Test Item Value Reference Range Interpretation Comments LACTATE DEHYDROGENASE (BEAKER) (test 246 U/L 125-220 H code = 635) Leadership Recruiter ID - TIYFELONXXMTQM0077-12-32 16:17:53 Test Item Value Reference Range Interpretation Comments MAGNESIUM (BEAKER) (test code = 1.8 mg/dL 1.6-2.6 627) Leadership Recruiter ID - IKPEYWFKLKPTGZW5535-62-53 16:17:53 Test Item Value Reference Range Interpretation Comments PHOSPHORUS (BEAKER) (test code = 2.7 mg/dL 2.3-4.7 604) Leadership Recruiter ID - SMNGVGVTTU-9-QRVHWNECKVR3282-04-20 16:17:14 Test Item Value Reference Range Interpretation Comments ALPHA-1 ANTITRYPSIN (BEAKER) 61.00 mg/dL 90.00-200.00 L (test code = 502) Leadership Recruiter ID - ADMINPROTHROMBIN TIME/[id number] 16:09:26 Test Item Value Reference Range Interpretation [...] mechanical heart valves.CBC W/PLT COUNT & AUTO [id number] 16:06:15 Test Item Value Reference Range Interpretation [...] PERCENT (BEAKER) (test code = 2801) CALCIUM, [id number] 16:03:36 Test Item Value Reference Range Interpretation Comments CALCIUM IONIZED (BEAKER) (test 1.07 mmol/L 1.12-1.27 L code = 698) PH, BLOOD (BEAKER) (test code = 7.38 1810) RAD, CHEST, 1 VIEW, NON [id number] 15:04:00SAURABH NICOLE MD Reason for exam:->post left thoracentesis R/O pneumothoraxShould this beperformed at the bedside?->Yes [facility] : 1965 Sex: UFINAL REPORT Chest, 1 view, 12/30/2022 2:23 PM. History: Post left thoracentesis. Comparison: 12/29/2022. Discussion: The cardiac silhouette is stable. There is decreased left pleuroparenchymal opacity. There is no evidence of a pneumothorax. The soft tissues and osseous structures are intact. IMPRESSION: No evidence of complication post left thoracentesis. Signed: Chano Enriquez Verified Date/Time: 12/30/2022 15:04:41 Reading Location: [facility] Radiology Reading Room U/S, [id number] 14:59:00SAURABH NICOLE MD Labs to be ordered:->Body Fluid Culture (w/Gram Stain, C\\T\\S) Labs to be ordered:->Cell Count Reason for exam:->abdominal pain, cirrhosis Should this be performed at the bedside?->No [facility] : 1965 Sex: UFINAL REPORT Ultrasound guided paracentesis. Clinical History: Ascites. Sedation: None. Nursery School Teacher: Danuta Taylor PA-C Contract Driver: None. Estimated Blood Loss: < 1 cc. Specimen: 2600 cc of cloudy serosanguineous fluid, samples sent to laboratory. Technique: Informed consent was obtained. The risks of pain, bleeding, infection, bowel [...] was achieved with 2% lidocaine, a 5 Maori one-step catheter was advanced into the peritoneal cavity under ultrasound guidance. After completion of drainage, the catheter was removed. There was no evidence of complication. Impression:Successful ultrasound guided paracentesis. Signed: Lee Diaz MDReport Verified Date/Time: 12/30/2022 14:59:31 Reading Location: [address] Ultrasound Reading Room Body fluid cell count with tfqexrdodkbt1823-12-70 14:42:21 Test Item Value Reference Range Interpretation Comments Appearance (test code Hazy Clear A = 9335-1) Color (test code = [place] Colorless, Straw A 6824-7) RBCs (test code = 36947 See_Comment H [Automate d 92691-5) message] The system which generated this result [...] See_Comment H [Automat ed (test code = 31021-4) messag e] The system which generated this result transmit joanna reference range : <=5 /cu mm. The reference range was not used to interpret this result as normal/abnormal . Adjusted lining 63 See_Comment H [Automated cells/Others (test message] The code = 96392-5) system which generated this result transmit joanna reference range : <=1 /cu mm. The reference range was not used to interpret this result as normal/abnormal . % Segs (test code = 29 % 47632-5) % Lymphs (test code = 39 % 36433-9) % Monos (test code = 31 % 88376-2) % Eos (test code = 1 % 21942-8) % Baso (test code = 0 % 34372-3) Container Body Fluid Sterile Vial (test code = 2873) Lab Interpretation Abnormal (test code = 09592-4) [facility] CenterB[facility] WITH [id number] 14:42:21 Test Item Value Reference Range Interpretation Comments APPEARANCE FLUID (BEAKER) (test Hazy Clear A code = 510) COLOR FLUID (BEAKER) (test code [place] Colorless, Straw A = 511) RBC FLUID (BEAKER) (test code = 86593 /cu mm <=1 H 513) TOTAL NUCLEATED [...] Sterile Vial (test code = 2873) CT, [id number] 12:35:00SAURABH NICOLE MD Unlisted Reason for Exam - Click Yes and Enter Reason Below->NoProtocol Please Specify:->Standard ProtocolWill this procedure require oral contrast?->No [facility] : 1965 Sex: UFINAL REPORT EXAM: CT [...] 12:35 PM BODY FLUID CELL COUNT WITH [id number] 11:08:18 Test Item Value Reference Range Interpretation Comments APPEARANCE FLUID (BEAKER) (test Cloudy Clear A code = 510) COLOR FLUID (BEAKER) (test code Red Colorless, Straw A = 511) RBC FLUID (BEAKER) (test code = 54715 /cu mm <=1 H 513) TOTAL NUCLEATED [...] Vial (test code = 2873) Protein, random [id number] 22:24:47 Test Item Value Reference Range Interpretation Comments Protein, Urine (test code 47 mg/dL 0-14 H = 2888-6) EDILBERTO (test code = EDILBERTO) Leadership Recruiter ID - ADMIN Lab Interpretation (test Abnormal code = 78097-6) [facility] CenterPROTEIN, RANDOM [id number] 22:24:47 Test Item Value Reference Range Interpretation Comments PROTEIN, URINE (BEAKER) (test code = 47 mg/dL 0-14 H 1569) Leadership Recruiter ID - ADMINCreatinine, random [id number] 22:24:46 Test Item Value Reference Range Interpretation Comments Creatinine, Ur 176.5 mg/dL (test code = 2161-8) EDILBERTO (test code = Reference Range: No EDILBERTO) NormalsOperator ID - ADMIN [facility] CenterCREATININE, RANDOM [id number] 22:24:46 Test Item Value Reference Range Interpretation Comments CREATININE URINE (BEAKER) (test 176.5 mg/dL code = 375) Reference Range: No NormalsOperator ID - ADMINUrinalysis w/Qoajysxhmad7798-91-78 22:11:30 Test Item Value Reference Range Interpretation Comments Color, UA (test code Yellow = 5778-6) Clarity, UA (test Hazy code = 5767-9) Specific [place], UA 1.046 1.001-1.035 H (test code = 5811-5) pH, UA (test code = 6.5 5.0-8.0 5803-2) Protein, UA (test 70 mg/dL Negative A code = 88183-3) Glucose, UA (test Negative Negative code = 365) Ketones, UA (test Negative Negative code = 2514-8) Bilirubin, UA (test Negative Negative code = 51061-7) Blood, UA (test code Large Negative A = 37550-5) Nitrite, UA (test Negative Negative code = 5802-4) Leukocytes, UA (test Negative Negative code = 5799-2) Urobilinogen, UA 0.2 0.2-1.0 (test code = 93167-1) RBC, UA (test code = 138 See_Comment [Autom ated 21153-5) message] The system which generated this result [...] . Bacteria, UA (test Rare code = 05797-0) Mucus (test code = Few 8247-9) Squam Epithel, UA 3 See_Comment [Automate d (test code = 27783-3) messag e] The system which generated this result transmit joanna reference range : /HPF. The reference range was not used to interpret this result as normal/abnormal . Specimen Source (test Urine, Clean code = 2795) Catch EDILBERTO (test code = EDILBERTO) Leadership Recruiter ID - [auto]Leadership Recruiter ID - tech Lab Interpretation Abnormal (test code = 68907-2) [facility] CenterURINALYSIS W/ [id number] 22:11:30 Test Item Value Reference Range Interpretation [...] (test code Urine, Clean Catch = 2795) Leadership Recruiter ID - [auto]Leadership Recruiter ID - wdakKKITGDZWSPGXY9183-66-72 17:38:31 Test Item Value Reference Range Interpretation Comments PROCALCITONIN (BEAKER) (test code = < ng/mL <0.05 3036) SEPSIS RISK (ng/mL)Low: 0.05-0.50Intermediate: 0.51-2.00High: >=2.01LACTIC ACID, [id number] 17:22:42 Test Item Value Reference Range Interpretation Comments LACTATE BLOOD VENOUS 2.07 mmol/L 0.50-2.00 H Specime n slightly (2) (BEAKER) (test hemolyzed code = 2872) Leadership Recruiter ID - BSSpecimen slightly ictericRAD, CHEST, 1 VIEW, NON [id number] 16:10:00SAURABH NICOLE MD Reason for exam:->evaluate left pleural effusionShould this be performedat the bedside?->Yes [facility] : 1965 Sex: FFINAL REPORT [...] 31 pg/mL 0-100 (test code = 700) Leadership Recruiter ID - BSCOMPREHENSIVE METABOLIC [id number] 14:18:45 Test Item Value Reference Range Interpretation [...] not as accur ate as Creatinine Carol omiz in predicting glom erular filtration rate . Estimated GFR is not appl icable for dialysis patien ts Leadership Recruiter ID - ADMINSpecimen slightly ictericPROTHROMBIN TIME/[id number] 13:44:11 Test Item Value Reference Range Interpretation Comments PROTIME (BEAKER) (test code = 20.8 seconds 11.9-14.2 H 759) INR (BEAKER) (test code = 370) 1.84 <=5.90 RECOMMENDED COUMADIN/WARFARIN INR THERAPY RANGESSTANDARD DOSE: 2.0 - 3.0 Includes: PROPHYLAXIS for venous thrombosis, systemic embolization; TREATMENT for venous thrombosis and/or pulmonary embolus.HIGH RISK: Target INR is 2.5-3.5 for patients with mechanical heart valves.[id number] 13:43:55 Test Item Value Reference Range Interpretation Comments MAGNESIUM (BEAKER) (test code = 1.8 mg/dL 1.6-2.6 627) Leadership Recruiter ID - ADMINCBC W/PLT COUNT & AUTO [id number] 13:21:51 Test Item Value Reference Range Interpretation [...] PERCENT (BEAKER) (test code = 2801) Prepare [id number] 23:54:00 Test Item Value Reference Range Interpretation Comments Unit ABO (test code = 7726084) A Pos UNIT NUMBER (test code = [id number] 934-0) Status (test code = 0941968) [place]_TIMEINCHART Blood Bank Product (test code FFP = 2263) PRODUCT CODE (test code = G3493U77 933-2) [facility] [id number] 23:54:00 Test Item Value Reference Range Interpretation Comments Unit ABO (test code = 7572650) A Pos UNIT NUMBER (test code = [id number] 934-0) Status (test code = 9669943) TX_TIMEINCHART Blood Bank Product (test code FFP = 2263) PRODUCT CODE (test code = Z9014F58 933-2) [facility] [id number] 23:54:00 Test Item Value Reference Range Interpretation Comments Unit ABO (test code = 1187902) A Pos UNIT NUMBER (test code = [id number] 934-0) Status (test code = 4951481) TX_TIMEINCHART Blood Bank Product (test code FFP = 2263) PRODUCT CODE (test code = A6986M71 933-2) [facility] CenterFine Needle Aspirate by [id number] 09:58:30 Test Item Value Reference Range Interpretation Comments Case Report (test code Medical Cytology = 104) Report Case: [id number] Authorizing Provider: Arcenio Lazo Collected: 11/30/2022 08:48 AM Ordering Location: [address] Received: 11/30/2022 03:09 PM Service Pathologist: Simon Corona MD Specimen: Lymph Node, liver, marguerite-portal lymph node biopsy via FNA DIAGNOSIS (test code = f6qqkIAdBTQqm5vlOIHbjR 3220) FuZzEwMzNcZnRuYmpcdWMx IHtccnRmMVxlcGljMTAyMD ZxMQ9mcYuzzDt0kQmfJLIn yzA9dFKyLIlsi4flDQN5c5 ggcpznUGTgYDbkZc7dyOXj eNrsZnLcUFYqBIy7lD23SJ OubX9syOYhAXe0MXGayBEb cdEeFtPpQCJrwHJhoLF8HP XzZU7khbtpKAloXGbiEURd vsE5OAHxjZVmN9AiDFFqJW 5rdideRLC4TUvaQYKrMXH0 LeLeTYZgr2Fngsj6LoErsF FyZFxwbGFpblxmczIwIExZ FVRVAQ5RXLOnBBzHJnFBVN EOBubmGT8MHOIBWLILAC4K N1qnXroZOAEZKDBfU9lUY5 UFXG1HTMQGNGWPAKlZHUTZ C1IJVTcvhYOrCQAlTU0fYz XBPOKHWiNsEk1DQZ8FIPkH PuTECMMOUYtDTw3dqKKhRK KtVM5aI5MWDsCfBUlUJDmK MMYhANfVO7CKBxwnYCB7m8 xydGYxXHNzdGUxODAwMFxh bnNpXGRlZmxhbmcxMDMzXG S9gtWvYJIcIQqwFZSgQKiu Zz3epYYagZgtWmUxFEDwg2 gkjiAWeuqerHi0t8boRVZg VnE5cPMsECjxJ7blwrAbxQ BaYAKwHIp7hF04XGHssK6q zYRcCHeqxePzTaK0AXkwZO HiGfJ7TBQyvMYyFGKsN4hn ZWQwXGdyZWVuMFxibHVlMC Q6hZglt4T1mUBroUNrbUcm EnAwMsSgJdJNq2VwFLi2nY pcS8GbRLLmGgS6kOPiZTVk EPjrMEFdEGWnhjH0cI12QN uacsN2aGIxd1Iwe22kh159 zD2dlPDbJXV1LLFmITWyuC UrLEJtOXI2UADcvTBxW9dm ALYeIV4kaoppYMpvJUfvZA XugQN0QSDwoUDnR4AlVJAr WCbiOUFianq1VcUzLz3nyU YstApaIMofm6lus0mwqAZb Gxk5OLVpDcSwStpdYQarn3 Ehx0dxYWEgnm2vLNC6zXNz cDyhc2Q2aXRdARVkjMXlJR IuTU0tlEKoHNRmsZ8cfxub XHBnYnJkcmhlYWRccGdicm OkNh2wsHcwBPL9NXizA2nb mG8yZoN9NFrcV4uaiL4oDH s9EDalPCEmkDN4veP9EMMc pDKfD6VcyJ4eLALhTA2czl f5u6dnFDN4VHacKQPlYjO5 wgD8TVUpnUVbZMRwiWrnEJ nnj168LZW2FrOzZLXya7Jt V9AxtOykG47pwAxxG42hFD TmaSsquS9akDozaU8bDtQy RaRuANldvFmwLF9uRMAyG9 ooaPYgSCPfYHVsU3auOdKh nP5bdMngEXrsstRfOQMgSe f4KTDdbTMdVTFpXvs2ZYOs NHLuZ11xttoaHLH4gL3yk0 odu6FePOkaLQX9YJAeo53d MSwgjkE9SUkoBu45NNksLN J9ZYunZKM1wY== CPT Code(s) (test code h1dnpGAwMRKdxIFeTQYpHF = 3357) igurEnZDXiaKTxJ7Srqbht IIasRN2mRU1icTfslCNceB KiFOCmTmYnl4xco285qKLl q1feOZIQmiobcCc4lAbmN5 3wi3J4IwbiF90xlJSkQGD6 PJJdVVGbyVPxJJYhHTO0LH AiqOHmS6chPBHdCJ2phdvg QBtsYBnuWLWbuMH3FOQugK DhM4DgJJSaQJtrXHYjmet6 ZtNrCd7nvOUwoTllPVmoYD JkXHBsYWluXGZzMjAgODgx QhCoTXf7KnW7MEWbcq5= CLINICAL DATA (test w9eesGQxTHAtrCLbIJQgDU code = 3355) vvplKdDODcgDBgP2Jodhdm GCaqVU8mON1rlDmcxNOmtW ItEFYwAuSej9jce169cATy x6vcBECSaravsJh8qWelT7 7yh1S8LqmsJ79exBMbIPC9 GKFeOVNhtRTlTDIhTJX4JZ UugZZuW0geSURuGP1mettt BCnsINubGZWxvXL3IUDjxB XiW5QbVNZiICxrEJHjjzp6 OgDrXn3ojANfiIroUQxnMM JkXHBsYWluXGZzMjAgNTgg wP9gBjs+Rlx+r0a1kLYJMM EEEYNjwuWao9Dioggdy2sz ZLSvFQFeqxNfXZV8utGCR7 rfc7t5tOK5jTGqjaEiGUXj FBQejU9jYD0tJSTYJDWdCB luIHggNCBkYXlzIGFuZCB3 DROaTl18ozLfhO5tpIO3IM Yzs1anpRduBUEcOIDld24j SNHpKVVetlWqsW9tSKU3i6 KaqQjyA9Blu3fmEW7gxZ9n vZTsxPUumBKzm83idN5sN9 skHqyupGm8gkQ4reMpv9Jz woQhNTF2ayLNT8dPPgEkr1 QqBSvZNh8qgdarFKE7 SPECIMEN SOURCE (test w6jwiMScPUDepWEuAMJvGO code = 3377) newnShYERjxELvC5Lidzpm LSkpCS5gUU6xkXvdoFQniU IkGRDhBsDjz9ozy216cCNa o3kaNHXPvitchEq7hRndA6 6vr0Q9DetcJ03dmMLyCSD6 JCQyLKFxtYQkSSHxVKW5YM MxjOCgY0ywRGNeES3gvvfx QLseODogTOUkpDS2GSBgkH UpR6JhKSRmZLvgZCOpskb4 DtDuZn2beBQoiIjdFHjrSZ JkXHBsYWluXGZzMjAgTFlN FDknKg9XDLbnBWlCZYAsOL TNHkrxZM2NPWIJMDEEO9EC WSBGTkFccGFyfQ== GROSS DESCRIPTION (test o6yteJTuVDNmbDYGVNEnYR code = 3896862943) LfZI5xfVfbhUk9tSgyFAAv coH7tOOmWJxml5mxKXG2g5 dixaLWXrjcJZPoLR4kOYlv PUJoWA7oVcOoECWvTvTmNB BhcGVydzEyMjQwXHBhcGVy uMR8SHSfPZ7bmaxyJMrdSV pbXFFlqxW6ILJvbDGwF7Gv JFTsMX0umnccPIX1ZWAURw wcCk8erAJuvBtoDoCyKaYn YXJzZXQwXGZuaWwgQXJpYW p9xW7ATsehXTL0GVGJRedd HfefiKxub0HhtNPmIPNvNE xcaWQgNTEwMDAgXFxkYiBP XnIdRwC6ZDZlUxS1IvK1LM a4JTSXTSFlBJZxLyVmXOE4 YTa8QPGsMA6xBMorvUFhHH xcGjmjZUsnI207TOjoCNFc C4BvX4PuOZwkNiOqAQvcLE ItJDWjMBslIVRxV2ZPRVLw ITHlQFK8XRLhNZx5YOaeQ3 OIDLVtLPLhPyblIrR0IxS2 UGy0XMLXHt7jSqn5RRp8AB Y4ZGK0PJk6JMggePLwKAzf j1JcFfGzFVPdQFuehyF6OP NpgiLmTNzxuIcqgJ9iYoLf NfREZvHFzI3kvGUPk0WkMO LrqxWGScecQPPbAL8LJTWy VRvvPPCeFcChaROdD6piWL PnS26qn1YBj4GqJE6YKCy4 kcLsrqyosI3gTLCqgnNkRM pcZnMyMCBSZWNlaXZlZCAx VFXbyULnkK9iE7b4m7AaN4 ggcmVkOyBwcmVwYXJlZCA0 TFX5yN1vnElvftgvR5WwkK UcnL9xbtJfQJFpLZyxHCoe WZInb3GkDTFtRCSfMBAdck Bqc5TwQEjoxbMqxLCtKNzj NSBvbiAzLzIxLzIwMjMpXH BhciANClxzYTMwXGVwaWNY q6AlRANZSpxpfTkhKpSghN TfGpY7QVRfoAGbAGM2HI2m cUyoDKDhF3UlC0NclqE9JA EejcPYRpcyESGxAO4LNCMh MjIgDQp9 MICROSCOPIC DESCRIPTION r5eglYOdEDPsuIGcUPPcBA (test code = 3371) ypqySpXBGjzVPaR2Recpgz CCltFW2zFN3xdUlojZGpkN KeLKAxWmJoz9lam243lMBq k2hiVKOCthcztSx6pYbxW8 4sd7O1BreeY51oyVQbKYO4 ICOzFUBieLLhPNDyTUM9UM DfeXSeC9zdPRLyJN2guhdl LGxkAWvhYHYnhJT5YRJhcL MrZ0JiXRItRIutRSLmccx3 RqCuDa1mlMNrpWblFYoiEY JkXHBsYWluXGZzMjAgUGVy Oc2zpHAjBtmaXKJdrXLcCN xwYXJ9 Gross assessment was [facility] performed at ([facility], = 2777) Department of Pathology, [address] [place] [address], Technical component was [facility] performed at ([facility], = 2778) Department of Pathology, [address] [place] [address], Professional component [facility] was performed at ([facility], code = 2779) Department of Pathology, [address] [place], [place] [address], [facility] CenterFine [facility]le Aspirate by Sqtkduvgw6007-84-20 09:58:30 Test Item Value Reference Range Interpretation Comments Case Report (test code Medical Cytology = 104) Report Case: [id number] Authorizing Provider: Arcenio Lazo Collected: 11/30/2022 08:48 AM Ordering Location: [address] Received: 11/30/2022 03:09 PM Service Pathologist: Simon Corona MD Specimen: Lymph Node, liver, marguerite-portal lymph node biopsy via FNA DIAGNOSIS (test code = x4lltNKlWILvr0nfMYQhcK 3220) FuZzEwMzNcZnRuYmpcdWMx IHtccnRmMVxlcGljMTAyMD IaWU4hxOnimMh9nCdtAROo qgN4tEMjFFnwb6lgJME2i7 arfcfbWZSeZBsvZn0iyMDv fGtoKpMvEHNgJQf9vZ99EL KzlQ8ieBKdADm9MTFwdQSg csBdYvWzAZVywASsbQK3IC VdSN7twhyuHEahLGpyICXv wwC6DREnkAAkV2FzNEEoDY 9dqrwmFQM3TVydSVRbUQQ0 YvKwRKSwf5Mbmku8HyTwvP FyZFxwbGFpblxmczIwIExZ RIZCAW4JIYAzXVzRPsFSWR DSXrcyAA7WFZNITPYZZL7P R5crOwsKYFFTAADbO5xQL6 EUCE8PKDBHJCOQJXeMWIML V7SPJWhpxIHuIMCyTM5gJy MMOOUTHoKkVq0SFW2RHVpG UrSYXXLDLJcFDe2npTVzMM EqSF8eB8GWEvXmALjFNZtL JENlBXwCK4XUVcekIWO4u6 xydGYxXHNzdGUxODAwMFxh bnNpXGRlZmxhbmcxMDMzXG S4xbDlEVRbVSjqTEVnLVgg Yj1efSFpcWmnUwIzZMDia4 yqfeUKvorylEu8o8eaQJMg UfT5pDGeSWwzI3ebkgPneS WoZUScJKk3lW70PJXknH6a fKJtMMftkrTbKxQ1QFlhKA BgUnG1NVPmeCHiYAEeB5xk ZWQwXGdyZWVuMFxibHVlMC I8yRnfm3Q5xXHfnXVieDee YlRsWqKgYrGJp8ZyFXf0tX axX5IbFILfCfU4oUFrHKFv IIsgGCGmKLNwasG7hE23FG ztfpQ3gFFkz6Czx73bf728 wH3reTDcMHX0ZEAnNBWilS QlGHOkZIS5PPCamTJpH2qz NSBnFU9vzxagQLzrZZreLS ZniHG5OSSjsPPsN5AlVDZc DVteGPKypvj0SvZmQv7ynP XwcZsnYHwbq6xiz7qnyGHq Ihs3WSRgXsPoGlpgDNmtb0 Kcn7jzMGAulb1tTWI9eGMt iWmxn0Q4hIYgQRNhbWKjFA PmWV7nlQNlKSEoaA4nnyjt XHBnYnJkcmhlYWRccGdicm OdBy1jdSaxGCX0PZiiL4uj bL6kMlZ4VIwrG1hmsB0gSD z8PPonHCGrhBR0vaL3HSIb aUEsK2LmoY1nBEPmZA1kmj d0y3snPQF5HQxoVXDrLoL9 ffA2LWXraSUaSOXesSijGR htu412PQD6EdWeNMPid2Jl V4QliTwdZ97qcXutN01tOV XptVrhsL9myKzkrW5aNwTf ZxSiYLfexPxiBX2sUDQvM1 zeyXCkVOEgXCSaJ0xtCgUa iC3eeJgmBKcvgzAiSJYvWy k6QZGvqWUtUPXsBom8TNWo TAQmI08sojzrIFN7lF2ct3 dfm4JaLHrgACL2HMDpc67t NWrxgaZ4BFgmTg39NMbmAY B2VSaeMWX9iB== CPT Code(s) (test code g1kqbHCaVPRwoFAoNBAoMU = 3357) rnsuSzLNYycUUbA6Tnqnfe UHjaKL3pRG0dsVrqxMOlpS EgJCHdKuKff6bfh421pYPg y2daSNEArhrcyIz8jVyzM6 1on0N6EczmW65mdQNgAOC7 QWSbTTSrbFJoPHUfONO4NT PorCBtS2ynOOAkES5bhwqs CKmxWNdqRDQavGK5JSMyyB WnR1CzOLJjHOkxZFNxhpf2 CiEoJv4yqYZpfOydRIctNL JkXHBsYWluXGZzMjAgODgx GxInCXn0BgM2XHAudn1= CLINICAL DATA (test c9lliXKpMTXpnVKaECJiOV code = 3355) dsmmBzQMIyiAVeV0Obzant WHaiPL7iPD6cvXgpyQFynJ QeETQrZkTng1htg112cSId k1vcOHPArwepzLk4hBmhX5 4tk2X9YehoJ18ytFErMXI5 VJPaHJUowZTlNIZhBSD2NE DsmCOqZ3mdQCPaDZ0ivjsq HKktDHaiCWUqbDI0COYpwE ZoQ8CmNZCjWItvFBLnsin5 XvJoAy9jeDDyeEvfEQugTO JkXHBsYWluXGZzMjAgNTgg zU5iDny+Rlx+d6t1eKFVXI ITAZWjetDog4Sepvbrt4tt QIYuCIEuqfAiYBT0yjJXH6 zbv3s6tEP8dBKajvSoUHHd JLGhwE1aLP2pOAKMKRZyZT luIHggNCBkYXlzIGFuZCB3 RKMmBt06rdMlsI6xlKG3QT Aey3faiXryUVMwWIWly94h LADtEHHyzxTagB3sNKU1x1 UuxMbjJ7You2okII2gwY9n oCCohXRciOJiy63lbY8tX9 viNvvxzMf7ohD9imMzi6Ua frIwIHM4obXYT0sEEvBss7 VvTVrTDq9yjimuHYM7 SPECIMEN SOURCE (test x6pyaDOwJQWebQUcBQHyCC code = 3377) wxlgKzTIAzlKEoP6Pvhots EOnbKJ4qNK5lwWuhqZOpqD XiENIhSlJvc5yjs901cSEv g4cuANFTmsvgdDr2hHnvS8 5ui3X8RtkeB60boENtEBG8 XRDkYCNyzTRmIDKjOUY3MQ JfiBDuU4xjDOTlCG2chmdo DPzqNTvcVUYbzDO6RUMgfM HwQ2WnTLCsAOylACKtryz2 XwImPh8zuCMxcHbbOPsaBF JkXHBsYWluXGZzMjAgTFlN ETkyHq1YIZcvKNmDYTPvXZ VIKzaiBG1BMNNOUPZNA3SB WSBGTkFccGFyfQ== GROSS DESCRIPTION (test s7hjuUZfKSYrqYPDFFZlHO code = [id number]) ThGI9mkWvjhZa7eXkbCXJn zqW5eMKsHAtuu6vaDNW4t7 ksabAHXouyZOYxGD4jVBsv QHSbQC4xKaQjZJOiPhAdNY BhcGVydzEyMjQwXHBhcGVy yJD9MSQwTH9ikgmuZGnnTM anXINpguH0NLPfnGFmR1Ei GSLuUF2kngefNGR1FWNANv plXy2nlLVxiKnoSbLpAfOb YXJzZXQwXGZuaWwgQXJpYW b3qF3BJyyuQIO1CDDCHwtj IsyquCmxs5KzmOXmUSQbVT xcaWQgNTEwMDAgXFxkYiBP WtBiKjJ3WOFjGyZ9OyO4CT f1NGYMHYHaDHQwVfUgKMG1 XKa7DYZqLQ7qDRqaeDDhAQ jqBwkqHYzxA780KBzzENLf H7MyK1BcNZycUsNjYMiyPO BtDAScRCxsHWXbT6YVIUNw RVBiGCQ9DRRlDRe6QLeoE8 NIABKuQAMaGnnbOkA5IeH3 NZs6MNNMAk3cMmz5NOh9IJ L2UFM6GOd7JIzxxDXxIWkn e2MhHkShZDNgTZkqwmO0KF GrouEyIKqskGlacP7qDzKd PxQXKqSLzY5bjWQRt9JpXD HtbnGWXkomUTOxUF2HBBNk JGsjJQHvOpDykOCnE6awEU BbP82oz1FHp8TxJX5NXLm5 rdXmprglfX5sLGMenfIzNP pcZnMyMCBSZWNlaXZlZCAx RALijDUudQ7lY7q9l7WhU4 ggcmVkOyBwcmVwYXJlZCA0 FQN0xT4zkFnsiyxwY8VfpK WtcQ9jaqThEDVmOPisTJbf RNLfs0NfKBEtADVmGDSpdx Noi8IzGPgumwNdjTDhYDhb NSBvbiAzLzIxLzIwMjMpXH BhciANClxzYTMwXGVwaWNY u1WpLVTXYbpisYlqWpBsaU MhNiR1LYZlrHNuJDZ7TP6o oOikNKBoN9FaI5CzugS5WL UpizPXTpniHCYdQC9BIVMy MjIgDQp9 MICROSCOPIC DESCRIPTION g0zaySFiMWKmtOZpXALxOY (test code = 3371) fcfpUyPDZszYBmV8Zznffc JVxuUO4dXB0ykBkprGMgsH JpWVVnGiRtn2hka959gVTi k2fsJNTXefaaiQr6jTlmP7 4gs6J7KhtdR63xxCOsENZ7 DQFwHPVfgGTwHZYjSQO4ZI TqlUBsO0xvRUDuWO2ycowv MUdkVXjmRRRviAY7EAUqdD WnK8GoHYKnAVfxECIreep5 XhWmUd7cnMMpgTxoXVzgNR JkXHBsYWluXGZzMjAgUGVy Pi7rbCImIaqmENPvhCJcSB xwYXJ9 Gross assessment was [facility] performed at ([facility], = 2777) Department of Pathology, [address] [place] [address], Technical component was [facility] performed at ([facility], = 2778) Department of Pathology, [address] [place] [address], Professional component [facility] was performed at ([facility], code = 2779) Department of Pathology, [address] [place] [address], [facility] Center[facility] Needle Aspirate by [id number] 09:58:30 Test Item Value Reference Range Interpretation Comments Case Report (test code Medical Cytology = 104) Report Case: [id number] Authorizing Provider: Arcenio Lazo Collected: 11/30/2022 08:48 AM Ordering Location: [address] Received: 11/30/2022 03:09 PM Service Pathologist: Simon Corona MD Specimen: Lymph Node, liver, marguerite-portal lymph node biopsy via FNA DIAGNOSIS (test code = l0dudJAwEISyb8flVKWbfK 3220) FuZzEwMzNcZnRuYmpcdWMx IHtccnRmMVxlcGljMTAyMD ElBN9njRbrxLi4yKgbYFJi osW1jAVrAOhkx3tgOTO0w0 uglgopKKMuYCooFi5jtSJd hAwaPcGhCLKgKCp9rH78LC KugP0kcRXgJHi9XERakTDi hhJoHhTjEPGuuNEerRE3YI IlYR1ohsxgWGdbNMlkINFl jeK3MNHhlBMeY4BrDIMpZE 5zqjiuBIY5CDplWQHxSGZ1 BiEyTWUfn0Pbpaw1ZmAjdN FyZFxwbGFpblxmczIwIExZ MNPMKI3YOHIqNGmYBfPBQV HWVgauRR8IOGUBNURCCD2P U2xfNouOSJDQRLLtV4qFS3 XJOY1BSJURTNZDOJpBKNKC X2LHLAnfeUWzQLZxJX5gUo IHPMOWWlVeTa4LYV0ILEuL PoGJHNQBJCbWBm5uuXGdUH AjQD4sS8BFYcFnUMlACMlZ OXWcCSfYG2VCSzneFEG7i4 xydGYxXHNzdGUxODAwMFxh bnNpXGRlZmxhbmcxMDMzXG U4neOdEBAmYCtsBZCtTLky Ec8lkIYwtGywFyJnRUFnn0 dydqCGislljCb1t0keYOTv HpE9lENuGMsdW3riqyQsdC HkIOZgQMl0lK12DXDvoC2m jJMtRWidipYdYuT1TIwwKH UeCmC5ULEnwZDgSCDmZ4mr ZWQwXGdyZWVuMFxibHVlMC T4bLyen1G9nAKijPLtxQot ZrFrCnHjHpGVj2UaTKr7oX orI5KgLLUkPaT8bXKzKMQa OYxfNVUlNKGvnqR4oE43HU jdbaI3wFRea6Ibz23oq774 uA2pnZLoAEX5LQSlUWOlrJ OuEVGzCWK9MUYhcPJbA6so BEMrVO8vlrwaYBmiWHedSN QreMA7NLCubRBuF0WhZCBn BJujPCTbbvh8DdIbWj1yxD IdlFigGHfmq1tjb1psjUHf Idn2LAAdEsRhHialHVatx2 Bzp0nvFCYymg6lKZR8oOFa eTkdj1B8jMIaIHDpdICiZY PlCG7ngFJyHSPqtY0dwuzc XHBnYnJkcmhlYWRccGdicm YnLd8ihPpcCZL4RUfnW7dv mO8dQfV1QYopO9sveB6uLK f9SEvoAXRnaWF4ilT6IDTq pVFrW7NcnM3bKEOxDL9xxv d8u4kqHPT6AGjqFTTkInI3 vnU0KWHssJMrPWBcjZouWD cjf645WDD1HtXkPDGjw1Bf Z2RndCtxW31yfJxoD79uJZ QwvFqokP1xaQimrL1bRxQc MvHfIQpfcZjiFS6jDBZkA0 qpaLPkCJPbBPGyQ4jhFpHj gB0ikRlhMVtrhzErELWpYo o1DSDngUOaILNtIus4UTNv MHZmP35wanmpZWH8sU1vq4 mxq1HhKQayQKM5GKGth99r PLmgaqT5ZFciHk54SMbaOM P4NAueKZS6sP== CPT Code(s) (test code r9irqPDnQGFbbPVaOINkVP = 3357) eerwRpBJLnvDFoZ3Fdbdiu WGvbYN1xKH8lzZngiRRclQ AfXJBfQpBpd0wyc183hJDg n9nmOATWglnfmZr3mPxkZ3 6rx0V7CwkbU71yqUFpEXH2 NLAuCXFgsVOfVCMwRSE6MQ YffCXbG0yoZAZpCM3xzotu OWdxBZbjREGmzGP7AVOolM AzU9PzJBCiYQxmOYAqsdp5 ThHiIj0zgCHcvAgaNGfwSL JkXHBsYWluXGZzMjAgODgx GrYlLWu7QgZ0WGHtau2= CLINICAL DATA (test o0jncMCgUYCriOGzODQsCI code = 3355) ouxfHuCUDdsDGlV7Qhgzsw CTawJO9yMJ2bsHuelCUuhW LsWFHgQlAvo4evp868iVAg i9xuUFLOflojqVj0yUfrO3 2qb6G2LtmdG47gpGTjIDG1 YIIkDZOoeTCxENKtUGB6LF ClfRHfE4fjOJDzPI9metyv QJjgSMdjRXZidNZ8HVUwgA TvH3DaLTCmMVctFOIcrms2 TmBbNx1yqAWxfNveCFgmHZ JkXHBsYWluXGZzMjAgNTgg sN3lUve+Rlx+t1p3yARNZW OKLELrreYnz9Vtxqevr0mx ZSJiUKChjfShGTM1jpMIC3 srv6y7oLQ7xKSidvElJLSf CRTfyO3fMO5uJRCRAAFjLY luIHggNCBkYXlzIGFuZCB3 NIWaQk70yqHveO9biCM6ZM Hzt5ltsCrwNYXuNUEex88d DJJkIKBatbYzxV8wAZF7u1 LcnFtmE2Pxx8ldGU9jyH7u aWPemUZvyKKdh08yhY2gE2 akJyxftRd5pyL8azVya7Iw cqJjRFY8phXKZ9kKHhDyf9 FrHDzUVz0vmwjuSXN0 SPECIMEN SOURCE (test b2ulbUZaJOOuwBBkIVLrCK code = 3377) kzfcSpQIQusEPaN9Cvbzbr VTsuHI0vEP9vwBymdTZcsK NsXDYoIoEgo2vci849oHGe v6awJQMXwsdicDw3cOwyJ6 9yu9S8JgdfM23sbPFeZKO3 RUDyHIFziJIpPAMmBRR1JC KfkDEgO0eiBGAvPJ7jucsz NLbwJNhaQTJssOE5UGFmoN RzJ1PePPZmTQjrHYFlmji3 VkXaPc1oeRHzwBsoRQmfYF JkXHBsYWluXGZzMjAgTFlN LPkqNt8LWOakUCoEBAKeCT QLDirgSF3VNQDNPPNUV7KX WSBGTkFccGFyfQ== GROSS DESCRIPTION (test a2wjuQRxCXCdtBXOVTHkBU code = [id number]) EuMQ9wbLsuySy1tTffSIFi jnH9aHWgLYmbf9uqWWC7a1 zqhkXHPamdEIKmBR1zISsj DDYzEM0uTdYnGGHcPbYkDL BhcGVydzEyMjQwXHBhcGVy nQE0OURmPR5znbxgMDnwYF nvYQChcyD1REDqjZOlQ3Ic EEAuYR7lhafnRMM9POGIMf eoAa3rdZTqjNjnClLcEfJm YXJzZXQwXGZuaWwgQXJpYW t3xU1PCdhePCI0DIKJYzba UzvwrVeik5BvkLIeEZLyPG xcaWQgNTEwMDAgXFxkYiBP CsXeNmE7ICWbQkG2LjD2VA f5ZXKNBUEdDQQfOrNlCZC1 LIm6XFNqXR8kDVbuoHHnIY kzCnoqPOotT452ZQmkXNDz N9UiF7BoNQkgQjDhBXsoEJ RuRYQkYYxrEVKhA2FXANYm EKTtEPD5HBKiZNd2SQvoH0 RFXOJsFFMaIijhWtY7UxN7 PDb1ONFPUa6qZfo6HWr8GH M3ZLF2JHp1WSjfqUHzCItd m6RiGoVoSCPxKOtigwY9OS AlwiRoGGhgrAmsvX0eKsQz ZoUQWhCNgT9wdPJAt1KrLN JmvvQJYuicEMPkQJ4RIGXx DWcgEMIbYdYbpQIuY7tkUU FoS79pd1OZl9EcIT8GVCs5 zoNvfvcunD7qSSUahrWcCV pcZnMyMCBSZWNlaXZlZCAx FOEfgHXgeQ3cK3d6y9RiO3 ggcmVkOyBwcmVwYXJlZCA0 VGU4cY5vzKqjnplyZ8KxmI IuuF3wvaSuGOZmKUshTVjs MAPob8QsSMOfNZIqUATync Kpf7ElXRrshiOvxQSrLBsr NSBvbiAzLzIxLzIwMjMpXH BhciANClxzYTMwXGVwaWNY w8WpDGFUSwisoBsvFxZsiE GcNbJ0PPZfiRMhLPX0UO9l wPveTRVhJ1CfA1WgkhU0JT AcyiCZHblfUWYxXR3YBWRg MjIgDQp9 MICROSCOPIC DESCRIPTION g9kxmEVjFJJcgHYiRXReLT (test code = 3371) hjowObOUWhzZUyK5Hylcvt KJzvYH6nDY6qwEtwxKMptO XaBRNvClWya1gyp069rHSw k7ztUYWDhxlucNr7pYjhT9 3jy9E5UvbeN54beCZyRHX4 MMNeCUBpkZDtJJFjJAE1RH XauZHtK7rgOZBfSI0bzdoi FQbcGFjcJYWpfDN8NYTcyW PvN6EpMXIpUNgjAHXmmdp4 PhRrWe4kgXIjaXkaRMtvCV JkXHBsYWluXGZzMjAgUGVy Ew3foLZdGjnjWYCzaWDpMI xwYXJ9 Gross assessment was [facility] performed at (test code Medical Center, = 2777) Department of Pathology, [address] [place] [address], [place] [address], Technical component was [facility] performed at ([facility], = 2778) Department of Pathology, [address] [place] [address], Professional component [facility] was performed at ([facility], code = 2779) Department of Pathology, [address] [place] [address], [facility] CenterFINE NEEDLE ASPIRATION BY [id number] 09:58:30Medical Cytology Report Case: [id number] Authorizing Provider: Arcenio Lazo Collected: 11/30/2022 08:48 AM Ordering Location: [address] Received: 11/30/2022 03:09 PM Service Pathologist: Simon Corona MD Specimen: Lymph Node, liver, marguerite-portal lymph node biopsy via FNA LYMPH NODE, LIVER MARGUERITE-PORTAL, BIOPSY VIA FNA (CYTOSPINS AND CELL BLOCK): - NEGATIVE FOR MALIGNANT CELLS. - SCANT LYMPHOID TISSUE. Signing Pathologist Direct Phone Line: [phone] signed by Simon Corona MD on 12/01/2022 at 9:58 [id number], [id number] y.o. F with CIFUENTES cirrhosis, who presented to OSH with upper back pain and RLQ pain x 4 days and was found to have colitis and concern for cholecystitis/choledocholithiasis on imaging, thus transferred to [facility] for HLOC. LYMPH NODE, LIVER, MARGUERITE-PORTAL BIOPSY FNAA. Lymph NodeReceived 15 mls in cytorich red; prepared 4 cytospins, cell block (A2) (cellblock placed in formalin at 15:35 on 11/30/2022)Performed.[facility], Department of Pathology, [address] [place] [address], [facility], [facility] of [facility]ology, [address] [place] [address], [facility], Department of Pathology, [address] [place] [address], TYECDHZXEZQFB METABOLIC [id number] 05:09:17 Test Item Value Reference Range Interpretation [...] not appl icable for dialysis patien ts Leadership Recruiter ID Nathalia ANGEL WCBC (HEMOGRAM ONLY)2022-12-01 04:18:12 Test Item Value [...] 0-0 (test code = 413) Fine Needle [id number] 17:00:24 Test Item Value Reference Range Interpretation Comments Cytology (test code = See Separate Report 2629) [facility] Center[facility]le [id number] 17:00:24 Test Item Value Reference Range Interpretation Comments Cytology (test code = See Separate Report 2629) [facility] CenterFine [facility]le [id number] 17:00:24 Test Item Value Reference Range Interpretation Comments Cytology (test code = See Separate Report 2629) [facility] CenterFIN NEEDLE ASPIRATE (FNA) [id number] 17:00:24 Test Item Value Reference Range Interpretation Comments CYTOLOGY RESULT POINTER See Separate Report (BEAKER) (test code = 2629) FL, FLUORO, NON-SPECIFIC, UP TO 1 [id number] 09:10:00Reason for exam:->cholelithiasis [facility] CENTERName: PATIENCE PAREDES : 1965 Sex: FAn imaging unit was utilized for this procedure. No radiologist interpretation was requested. Refer to the EMR for findings. Refer to PACS for any patient radiation dose information.COMPREHENSIVE METABOLIC [id number] 04:50:44 Test Item Value Reference Range Interpretation [...] not appl icable for dialysis patien ts Leadership Recruiter ID - MARCOPROTHROMBIN TIME/[id number] 04:28:12 Test Item Value Reference Range Interpretation [...] WBC 0-0 (test code = 413) PROTHROMBIN TIME/[id number] 23:20:55 Test Item Value Reference Range Interpretation [...] decreased 60-89 G3a Mildl y to moderately 45- 59 G3b Moderately to s everely 30-44 G4 Severl y decreased 15-29 G5 Kidney failure <15Reported eGF R is based on the CKD-EPI 2020 equation that d oes not use a race coefficientEsti mated GFR is not as accur ate as Creatinine Carol moiz in predicting glom erular filtration rate . Estimated GFR is not appl icable for dialysis patien ts HEPATOBILIARY IMAGING W/ [id number] 12:22:00Unlisted Reason for Exam - Click Yes and Enter Reason Below->YesUnlisted Reason for Exam->?chronic cholecystitis with dilated GBReason for exam:->?chronic cholecystitis with dilated [facility]OName: BISI PATIENCELEIDY CURTIS : 1965 Sex: FFINAL REPORT PROCEDURE: HEPATOBILIARY SCAN with Sincalide Infusion CPT CODE: 82022 INDICATION: 57-year-old female, chronic cholecystitis with dilated [...] response to sincalide stimulation. Signed: Marcos Muller MDReport Verified Date/Time: 11/29/2022 12:22 :52 CBC (HEMOGRAM [...] 0-0 (test code = 413) COMPREHENSIVE METABOLIC [id number] 01:32:49 Test Item Value Reference Range Interpretation [...] not appl icable for dialysis patien ts Leadership Recruiter ID - DBCBC (HEMOGRAM ONLY)2022-11-28 01:07:42 Test [...] 0-0 H (test code = 413) Urine [id number] 10:01:17 Test Item Value Reference Range Interpretation Comments Result (test code = See comment 6463-4) EDILBERTO (test code = EDILBERTO) <10,000 col/mL Gram negative rods<10,000 col/mL skin eduardo [facility] CenterUrine [id number] 10:01:17 Test Item Value Reference Range Interpretation Comments Result (test code = See comment 6463-4) EDILBERTO (test code = EDILBERTO) <10,000 col/mL Gram negative rods<10,000 col/mL skin eduardo [facility] CenterUrine [id number] 10:01:17 Test Item Value Reference Range Interpretation Comments Result (test code = See comment 6463-4) EDILBERTO (test code = EDILBERTO) <10,000 col/mL Gram negative rods<10,000 col/mL skin eduardo [facility] CenterCOMPREHENSIVE METABOLIC [id number] 06:17:40 Test Item Value Reference Range Interpretation [...] not appl icable for dialysis patien ts Leadership Recruiter ID - MARCOSpecimen slightly ictericCBC (HEMOGRAM ONLY)2022-11-27 [...] 0-0 (test code = 413) MR, ABDOMEN, [id number] 10:22:00Unlisted Reason for Exam - Click Yes and Enter Reason Below->YesUnlisted Reason for Exam->evaluate for choledocholithiasis [facility] BISI, PATIENCELEIDY CURTIS : 1965 Sex: FFINAL REPORT MRCP, MRI of abdomen without contrast Clinical History: Unlisted Reason for Examevaluate for choledocholithiasis Technique: Multiplanar and multisequence MR images of the biliary system are obtained, with dedicated MRCP protocol and images. No intravenous contrast is administered. In addition, 3 dimensional reformatted images of the biliary system are obtained to evaluate the biliary anatomy. Comparison: Ultrasound dated November 25, 2022 Discussion: This examination is not dedicated to evaluating masses or parenchymal abnormalities of the abdominal organs. Liver is cirrhotic. No discrete liver lesion is identified on this noncontrast exam. There are multiple stones within the gallbladder. Gallbladder wall edema is nonspecific in the setting of cirrhosis. No evidence ofbiliary ductal dilatation. CBD measures approximately 3 to 4 mm in diameter. No ductal filling defect or stricture is identified. Spleen is enlarged and measures 17.8 cm sagittally. The pancreas, adrenal glands appear unremarkable. No renal masses identified on this noncontrast study. No hydronephrosis. No lymphadenopathy. Mildly thickened bowel wall could be related to portal hypertension. There is a small amount of ascites. No suspicious bony lesion. Impression: Cholelithiasis. Gallbladder wall isedematous, but this is a nonspecific finding the setting of cirrhosis. If there is strong clinical co ncern for acute cholecystitis, suggest correlation with HIDA scan. Cirrhosis and splenomegaly. Smallamount of ascites. Mildly thickened bowel wall could be related to portal hypertension, correlate clinically to exclude enterocolitis. Signed: Manish Pandaort Verified Date/Time: 11/26/2022 10:22:09 Reading Location: [address] Ortho Consult Reading Room BASIC METABOLIC [id number] 06:05:16 Test Item Value Reference Range Interpretation [...] eGF R is based on the CKD-EPI 202 equation that d oes not use a race coefficientEsti mated GFR is not as accur ate as Creatinine Carol moiz in predicting glom erular filtration rate . Estimated GFR is not appl icable for dialysis patien ts Leadership Recruiter ID - Angela slightly ictericHEPATIC FUNCTION [id number] 06:04:28 Test Item Value Reference Range Interpretation [...] (test code = 33 U/L 6-55 347) Leadership Recruiter ID - Angela slightly ictericPROTHROMBIN TIME/[id number] 05:52:20 Test Item Value Reference Range Interpretation [...] mechanical heart valves.CBC W/PLT COUNT & AUTO [id number] 05:33:16 Test Item Value Reference Range Interpretation [...] (BEAKER) (test code = 2801) U/S, ABDOMINAL, [id number] 17:23:00Abdomen limited area? Add comment if clarification is needed.->Right upper quadrant Reason for exam:- >cholecystitis possible choledocolithiasis [facility] PAT[facility]ENCE PAREDES : 1965 Sex: FFINAL REPORT [...] 11/25/2022 17:23:59 Urinalysis w/Microscopic + Reflex to [id number] 11:12:01 Test Item Value Reference Range Interpretation Comments Color, UA (test code Brown = 5778-6) Clarity, UA (test Cloudy code = 5767-9) Specific [place], UA 1.050 1.001-1.035 H (test code = 5811-5) pH, UA (test code = 6.0 5.0-8.0 5803-2) Protein, UA (test 200 mg/dL Negative A code = 07148-0) Glucose, UA (test Negative Negative code = 365) Ketones, UA (test Trace Negative A code = 2514-8) Bilirubin, UA (test Negative Negative code = 87057-5) Blood, UA (test code Large Negative A = 37725-7) Nitrite, UA (test Negative Negative code = 5802-4) Leukocytes, UA (test Small Negative A code = 5799-2) Urobilinogen, UA 2 0.2-1.0 H (test code = 40371-4) RBC, UA (test code = See_Comment [Autom ated 20069-4) message] The system which generated this result [...] . Bacteria, UA (test Many code = 11299-4) Mucus (test code = Rare 8247-9) Squam Epithel, UA 10 See_Comment [Automate d (test code = 80752-0) messag e] The system which generated this result transmit joanna reference range : /HPF. The reference range was not used to interpret this result as normal/abnormal . Specimen Source (test code = 2795) EDILBERTO (test code = EDILBERTO) Leadership Recruiter ID - tech Lab Interpretation Abnormal (test code = 11783-9) [facility] CenterUrinalysis w/Microscopic + Reflex to Culture 2022-11-25 11:12:01 Test Item Value Reference Range Interpretation Comments Color, UA (test code Brown = 5778-6) Clarity, UA (test Cloudy code = 5767-9) Specific [place], UA 1.050 1.001-1.035 H (test code = 5811-5) pH, UA (test code = 6.0 5.0-8.0 5803-2) Protein, UA (test 200 mg/dL Negative A code = 84835-9) Glucose, UA (test Negative Negative code = 365) Ketones, UA (test Trace Negative A code = 2514-8) Bilirubin, UA (test Negative Negative code = 98597-3) Blood, UA (test code Large Negative A = 52834-5) Nitrite, UA (test Negative Negative code = 5802-4) Leukocytes, UA (test Small Negative A code = 5799-2) Urobilinogen, UA 2 0.2-1.0 H (test code = 00792-0) RBC, UA (test code = See_Comment [Autom ated 22172-9) message] The system which generated this result [...] . Bacteria, UA (test Many code = 60818-2) Mucus (test code = Rare 8247-9) Squam Epithel, UA 10 See_Comment [Automate d (test code = 53366-1) messag e] The system which generated this result transmit joanna reference range : /HPF. The reference range was not used to interpret this result as normal/abnormal . Specimen Source (test code = 2795) EDILBERTO (test code = EDILBERTO) Leadership Recruiter ID - tech Lab Interpretation Abnormal (test code = 17340-1) [facility] CenterUrinalysis w/Microscopic + Reflex to Culture 2022-11-25 11:12:01 Test Item Value Reference Range Interpretation Comments Color, UA (test code Brown = 5778-6) Clarity, UA (test Cloudy code = 5767-9) Specific [place], UA 1.050 1.001-1.035 H (test code = 5811-5) pH, UA (test code = 6.0 5.0-8.0 5803-2) Protein, UA (test 200 mg/dL Negative A code = 64090-5) Glucose, UA (test Negative Negative code = 365) Ketones, UA (test Trace Negative A code = 2514-8) Bilirubin, UA (test Negative Negative code = 31037-6) Blood, UA (test code Large Negative A = 30081-2) Nitrite, UA (test Negative Negative code = 5802-4) Leukocytes, UA (test Small Negative A code = 5799-2) Urobilinogen, UA 2 0.2-1.0 H (test code = 72870-3) RBC, UA (test code = See_Comment [Autom ated 97261-3) message] The system which generated this result [...] . Bacteria, UA (test Many code = 16006-8) Mucus (test code = Rare 8247-9) Squam Epithel, UA 10 See_Comment [Automate d (test code = 09225-6) messag e] The system which generated this result transmit joanna reference range : /HPF. The reference range was not used to interpret this result as normal/abnormal . Specimen Source (test code = 2795) EDILBERTO (test code = EDILBERTO) Leadership Recruiter ID - tech Lab Interpretation Abnormal (test code = 04790-7) [facility] CenterURINAL[facility]IS W/ REFLEX URINE [id number] 11:12:01 Test Item Value Reference Range Interpretation [...] = 516) SOURCE(BEAKER) (test code = 2795) Leadership Recruiter ID - techBILIRUBIN, [id number] 10:18:18 Test Item Value Reference Range Interpretation Comments BILIRUBIN DIRECT (BEAKER) (test 1.3 mg/dL 0.1-0.5 H code = 706) Leadership Recruiter ID - HENRIQUE GPROTHROMBIN TIME/[id number] 07:19:55 Test Item Value Reference Range Interpretation [...] not appl icable for dialysis patien ts Leadership Recruiter ID - HENRIQUE GSpecimen slightly [id number] 07:09:53 Test Item Value Reference Range Interpretation Comments MAGNESIUM (BEAKER) (test code = 1.7 mg/dL 1.6-2.6 627) Leadership Recruiter ID Nathalia DUENAS [id number] 07:09:53 Test Item Value Reference Range Interpretation Comments PHOSPHORUS (BEAKER) (test code = 3.8 mg/dL 2.3-4.7 604) Leadership Recruiter HAROON DUENAS GCBC W/PLT COUNT & AUTO [id number] 06:52:55 Test Item Value Reference Range Interpretation [...]
[2023-03-18 10:14] LABS: Absolute Lymphocytes (CBC) 1.3 K/uL (0.7-4.9); Hematocrit 40.5 % (36.0-45.0); Lymphocytes % 17.7 % (15.3-44.8); MCV 104.3 fL (80-100); MPV 8.1 fL (7.6-11.3); RBC Red Blood Cell Count 3.88 M/uL (3.86-4.86)
--- NOTE | 2023-03-18 10:17 | RAD REPORT ---
EXAM DESCRIPTION: CT - Ct Stroke Brain Wo Cont - 03/18/2023 10:11 am CLINICAL HISTORY: STROKE ALERT COMPARISON: Head angio dated 03/18/2023 TECHNIQUE: All CT scans are performed using dose optimization technique as appropriate and may inclu de automated exposure control or mA/KV adjustment according to patient size. FINDINGS: No intracranial hemorrhage, hydrocephalus or extra-axial fluid collection.No areas of brai n edema or evidence of midline shift. The paranasal sinuses and mastoids are clear. The calvarium is intact. IMPRESSION: No acute intracranial abnormality. Discussed with Dr. Mario by Dr. Warren at 1010 on 03/18/23 .
[2023-03-18 10:19] LABS: Protime INR 1.39
--- NOTE | 2023-03-18 10:20 | RAD REPORT ---
EXAM DESCRIPTION: CT - Neck Angio - 03/18/2023 10:12 am CLINICAL HISTORY: code stroke COMPARISON: Abdomen Pelvis W Contrast dated 02/15/2023; Ct Stroke Brain Wo Cont dated 03/18/2023 TECHNIQUE: CT angiography of the neck vessels was performed with maximum intensity reformatted image s. All CT scans are performed using dose optimization technique as appropriate and may include automated exposure control or mA/KV adjustment according to patient size. CAROTID STENOSIS REFERENCE USING NASCET CRITERIA: Mild - <50% stenosis. Moderate - 50-69% stenosis. Severe - 70-94% stenosis. Near occlusion - 95-99% stenosis. Occluded - 100% stenosis. FINDINGS: A left aortic arch is identified with normal three vessel configuration of the great vesse ls. No significant flow abnormality is seen of the common carotid bilaterally. No significant stenosis is identified involving the cervical segments of both internal carotid arteri es. Normal flow is seen within both vertebral arteries. Schmorl's node in the inferior endplate of C6. Partially imaged large left pleural effusion. IMPRESSION: No significant flow abnormality of the neck vessels is identified.
--- NOTE | 2023-03-18 10:21 | RAD REPORT ---
EXAM DESCRIPTION: CT - Head angio - 03/18/2023 10:11 am CLINICAL HISTORY: STROKE ALERT COMPARISON: Ct Stroke Brain Wo Cont dated 03/18/2023; Neck Angio dated 03/18/2023 TECHNIQUE: CT angiography of the head was performed with maximum intensity reformatted images. 3D ma ximum intensity pixel (MIP) reconstructions were created All CT scans are performed using dose optimization technique as appropriate and may include automated exposure control or mA/KV adjustment according to patient size. FINDINGS: Anterior circulation: No aneurysm or large vessel occlusion. No hemodynamically significant stenosis. No arteriovenous malf ormation identified. Posterior circulation: No aneurysm or large vessel occlusion. No hemodynamically significant stenosis. No arteriovenous malf ormation identified. IMPRESSION: No significant flow abnormality is detected.
[2023-03-18 10:32] LABS: Potassium 4.1 mEq/L (3.5-5.1); Troponin High Sensitivity 4.4 pg/mL (<58.9)
--- NOTE | 2023-03-18 11:02 | RAD REPORT ---
EXAM DESCRIPTION: RAD - Chest Single View - 03/18/2023 10:48 am CLINICAL HISTORY: Code stroke COMPARISON: Chest Pa And Lat (2 Views) dated 01/30/2023; Chest Pa And Lat (2 Views) dated 01/16/2023; C hest Pa And Lat (2 Views) dated 12/20/2022; Chest Pa And Lat (2 Views) dated 09/17/2021 FINDINGS: Lines: None. Lungs: Diffuse prominence of the pulmonary interstitium . Pleural: Layering left pleural effusion. Cardiac: The heart size is within normal limits. Mediastinum: Within normal limits. Bones: No acute fractures. Other: None IMPRESSION: Layering left pleural effusion which appears large on CT and is likely under exaggerated on radiograph. Possible mild interstitial edema.
--- NOTE | 2023-03-18 11:10 | EDPHYS ---
Physician Documentation [facility] Name: Christelle Paredes Age: 57 yrs Sex: Female : 1965 Arrival Date: 03/18/2023 Time: 09:50 Bed 20 Private MD: ED Physician Enrike Mario HPI: 03/18 10:15 This 57 yrs old Female presents to ER via Ambulatory with complaints of Slurred Speech, sp3 tremors. 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 Patient has had prior episodes in the past that have self resolved. No history of stroke, TIA, cardiovascular disease and patient is not on any antiplatelet or anticoagulants. She denies headache, trauma, neck pain, chest pain, shortness of breath, numbness or tingling, motor weakness, memory loss, abdominal pain, nausea, vomiting, diarrhea, rash, known sick contacts, travel history, any other signs or symptoms at this time. Dysarthria is described as "searching for words and occasional stuttering which comes and goes since yesterday p.m.. Historical: - Allergies: 10:16 Vancomycin; ld1 - PMHx: 10:16 Cirrhosis of liver; Asthma; ld1 - Immunization history:: Adult Immunizations up to date. - Social history:: Smoking status: Patient reports the use of cigarette tobacco products, smokes one pack cigarettes per day. ROS: 10:17 Constitutional: Negative for fever, chills, and weight loss, Eyes: Negative for injury, sp3 pain, redness, and discharge, ENT: Negative for injury, pain, and discharge, Neck: Negative for injury, pain, and swelling, Cardiovascular: Negative for chest pain, palpitations, and edema, Respiratory: Negative for shortness of breath, cough, wheezing, and pleuritic chest pain, Abdomen/GI: Negative for abdominal pain, nausea, vomiting, diarrhea, and constipation, Back: Negative for injury and pain, MS/Extremity: Negative for injury and deformity, Skin: Negative for injury, rash, and discoloration, Psych: Negative for depression, anxiety, suicide ideation, homicidal ideation, and hallucinations, Allergy/Immunology: Negative for hives, rash, and allergies, Endocrine: Negative for neck swelling, polydipsia, polyuria, polyphagia, and marked weight changes, Hematologic/Lymphatic: Negative for swollen nodes, abnormal bleeding, and unusual bruising. 10:17 All other systems are negative. Exam: 10:17 Constitutional: This is a well developed, well nourished patient who is awake, alert, sp3 and in no acute distress. Head/Face: Normocephalic, atraumatic. Eyes: Pupils equal round and reactive to light, extra-ocular motions intact. Lids and lashes normal. Conjunctiva and sclera are non-icteric and not injected. Cornea within normal limits. Periorbital areas with no swelling, redness, or edema. ENT: Nares patent. No nasal discharge, no septal abnormalities noted. External auditory canals are clear. Oropharynx with no redness, swelling, or masses, exudates, or evidence of obstruction, uvula midline. Mucous membranes moist. Neck: Trachea midline, no thyromegaly or masses palpated, and no cervical lymphadenopathy. Supple, full range of motion without nuchal rigidity, or vertebral point tenderness. No Meningismus. Chest/axilla: Normal chest wall appearance and motion. Nontender with no deformity. No lesions are appreciated. Cardiovascular: Regular rate and rhythm with a normal S1 and S2. No gallops, murmurs, or rubs. Normal PMI, no JVD. No pulse deficits. Respiratory: Lungs have equal breath sounds bilaterally, clear to auscultation and percussion. No rales, rhonchi or wheezes noted. No increased work of breathing, no retractions or nasal flaring. Abdomen/GI: Soft, non-tender, with normal bowel sounds. No distension or tympany. No guarding or rebound. No evidence of tenderness throughout. Skin: Warm, dry with normal turgor. Normal color with no rashes, no lesions, and no evidence of cellulitis. MS/ Extremity: Pulses equal, no cyanosis. Neurovascular intact. Full, normal range of motion. Psych: Awake, alert, with orientation to person, place and time. Behavior, mood, and affect are within normal limits. 10:17 Neuro: Cranial nerve exam 2 through 12 is normal with normal mental status and memory. Patient has occasional searching for words episode and very mild dysarthria which self resolves after a few words. Motor and sensory exams are normal. Formal stroke scale is pending.. Vital Signs: 10:16 BP 113 / 66; Pulse 77; Resp 18; Temp 98.1(O); Pulse Ox 100% on R/A; Weight 99.79 kg; ld1 Height 5 ft. 6 in. ; Pain 0/10; 10:16 Body Mass Index 35.51 (99.79 kg, 167.64 cm) ld1 10:16 Pain Scale: Adult ld1 NIH Stroke Scale Scores: 10:13 NIHSS Score: 2 ld1 MDM: 09:58 Patient medically screened. sp3 10:18 Data reviewed: vital signs, nurses notes. ED course: 57-year-old female with mild sp3 dysarthria for over 13 hours. Differential diagnosis is broad and includes TIA, CVA, electrolyte abnormality, delirium, among others. I am not highly suspicious for acute coronary syndrome, sepsis, shock, infection, or any other critical findings at this time. Vital signs are normal. Code stroke was immediately called from triage due to symptoms and initial CT scan of the head as reported by radiology as negative. CTA, laboratory values are pending. EKG demonstrates normal sinus rhythm with normal intervals, normal QRS, normal axis, nonspecific diffuse ST/T segment changes particularly in leads III. No acute findings noted. Disposition will likely be observation and neurological consult with MRI after screening.. 10:27 ED course: Patient was on her way for thoracentesis in [place] today but came in 3 because of her symptoms. Radiology has read the chest x-ray and confirms presence of effusion and will be draining effusion today.. 11:09 ED course: Negative CTA and other work-up. Will admit to inpatient hospitalist service sp3 for further work-up and potential MRI. Given history of potential bleeding disorder, will hold antiplatelet agent for now.. 07 09:59 Order name: Basic Metabolic Panel; Complete Time: 11:03 sp3 03/18 09:59 Order name: CBC with Diff; Complete Time: 11:03 sp3 03/18 09:59 Order name: High Sensitivity Troponin; Complete Time: 11:03 sp3 03/18 09:59 Order name: Protime (+inr); Complete Time: 11:03 sp3 03/18 09:59 Order name: Ptt, Activated; Complete Time: 11:03 sp3 03/18 10:11 Order name: Glucose, Ancillary Testing; Complete Time: 11:03 EDMS 03/18 10:23 Order name: CREATININE WHOLE BLOOD; Complete Time: 11:03 EDMS 03/18 09:59 Order name: CT Stroke Brain w/o Contrast; Complete Time: 11:03 sp3 03/18 09:59 Order name: Stroke CXR 1 View; Complete Time: 11:03 sp3 03/18 09:59 Order name: CT Head Angio; Complete Time: 11:03 sp3 03/18 09:59 Order name: CT Neck Angio; Complete Time: 11:03 sp3 03/18 10:28 Order name: Thoracentesis w/ US Guide; Complete Time: 12:31 EDMS 03/18 11:29 Order name: Chest Single View; Complete Time: 12:31 EDMS 03/18 09:59 Order name: EKG; Complete Time: 10:00 sp3 03/18 09:59 Order name: Accucheck; Complete Time: 10:02 sp3 03/18 09:59 Order name: Cardiac monitoring; Complete Time: 10:02 sp3 03/18 09:59 Order name: EKG - Nurse/Tech; Complete Time: 10:23 sp3 03/18 09:59 Order name: IV Saline Lock; Complete Time: 10:02 sp3 03/18 09:59 Order name: Labs collected and sent; Complete Time: 10:02 sp3 03/18 09:59 Order name: NPO; Complete Time: 10:02 sp3 03/18 09:59 Order name: O2 Per Protocol; Complete Time: 10:02 sp3 03/18 09:59 Order name: O2 Sat Monitoring; Complete Time: 10:02 sp3 03/18 09:59 Order name: Stroke Swallow Screen; Complete Time: 10:23 sp3 Administered Medications: 12:39 Drug: Aspirin PO 325 mg Route: PO; ld1 12:41 Follow up: Response: No adverse reaction ld1 Disposition Summary: 03/18/23 11:29 Transfer Ordered Transfer Location: Other Acute Care Facility sp3 Reason: Higher level of care sp3 Condition: Stable(03/18/23 11:29) sp3 Problem: an acute exacerbation(03/18/23 11:29) sp3 Symptoms: are unchanged(03/18/23 11:29) sp3 Accepting Physician: TBD(03/18/23 13:37) ld1 Diagnosis - TIA, dysarthria, right pleural effusion sp3 Forms: - Medication Reconciliation Form sp3 - SBAR form sp3 NIH Stroke Scale - NIH Stroke Score Date: 03/18/2023 Time: 10:13 Total Score = 2 10. Dysarthria (speech clarity - read or repeat words) - 1(Mild to Moderate) 11. Extinction and Inattention (visual/tactile/auditory/spatial/personal) - 0(No abnormality) 1a. Level of Consciousness (LOC) - 0(Alert) 1b. Level of Consciousness (LOC) (Month \\T\\ Age) - 0(Both) 1c. LOC Commands (Open \\T\\ Closes Eyes/[place] Operator) - 0(Both) 2. Best Gaze (Lateral Gaze Paresis) - 0(Normal) 3. Visual Field Loss - 0(No visual loss) 4. Facial Palsy - 0(Normal) 5a. Left Arm: Motor (10-second hold) - 0(No drift) 5b. Right Arm: Motor (10-second hold) - 0(No drift) 6a. Left Leg: Motor (5-second hold - always test supine) - 0(No drift) 6b. Right Leg: Motor (5-second hold - always test supine) - 0(No drift) 7. Limb Ataxia (finger/nose \\T\\ heel/mayberry - test with eyes open) - 0(Absent) 8. Sensory Loss (pinprick arms/legs/face) - 0(Normal) 9. Best Language: Aphasia (description/naming/reading) - 1(Mild to moderate aphasia) Initials: ld1 Signatures: Dispatcher [employer] EDSamra Farmer RN RN ld1 Enrike Mario MD MD sp3 Issac Alas RN RN os Corrections: (The following items were deleted from the chart) 10:01 10:01 PMHx: Hypertension; os os 10:01 10:01 PMHx: Cirrhosis; os os 10:01 10:01 PMHx: Asthma; os os 10: 10:01 PMHx: chronic bronchitis; os os 10: 10:01 PMHx: on liver transplant list; os os 10: 10:01 PSHx: stent to gallbladder; os os 11:28 11:10 Observation sp3 sp3 : 11:10 Yvon Alvarez sp3 sp3 : 11:10 Telemetry/MedSurg (observation) sp3 sp3 : 11:10 Stable sp3 sp3 : 11:10 new sp3 sp3 : 11:10 have improved sp3 sp3 : 11:10 Standard sp3 sp3 11:10 sp3 sp3 11:10 TIA, dysarthria, pleural effusion sp3 sp3 13:37 11:29 TBD sp3 ld1
--- NOTE | 2023-03-18 11:10 | ER ---
Nurse's Notes [facility] Name: Christelle Paredes Age: 57 yrs Sex: Female : 1965 Arrival Date: 03/18/2023 Time: 09:50 Bed 20 Private MD: Diagnosis: TIA, dysarthria, right pleural effusion Presentation: 03/18 09:59 Chief complaint: Patient states: Difficulty with words coming out \T\ tremors starting os since 9 pm last night. Coronavirus screen: Client denies travel out of the [place] in the last 14 days. At this time, the client does not indicate any symptoms associated with coronavirus-19. Ebola Screen: Patient negative for fever greater than or equal to 101.5 degrees Fahrenheit, and additional compatible Ebola Virus Disease symptoms. No acute neurological deficit is noted. Pre-hospital glucose is not applicable to this patient. Initial Sepsis Screen: Does the patient meet any 2 criteria? No. Patient's initial sepsis screen is negative. Does the patient have a suspected source of infection? No. Patient's initial sepsis screen is negative. Risk Assessment: Do you want to hurt yourself or someone else? Patient reports no desire to harm self or others. Onset of symptoms was March 17, 2023. 09:59 Method Of Arrival: Ambulatory os 09:59 Acuity: [place] 2 os Historical: - Allergies: 10:16 Vancomycin; ld1 - PMHx: 10:16 Cirrhosis of liver; Asthma; ld1 - Immunization history:: Adult Immunizations up to date. - Social history:: Smoking status: Patient reports the use of cigarette tobacco products, smokes one pack cigarettes per day. Screenin:16 [facility] ED Fall Risk Assessment (Adult) History of falling in the last 3 months, ld1 including since admission Confusion or Disorientation. Abuse screen: Denies threats or abuse. Nutritional screening: No deficits noted. Tuberculosis screening: No symptoms or risk factors identified. Assessment: 10:13 VAN Scoring: Arm Drift: Patients demonstrates NO arm weakness. Patient is VAN Negative. ld1 TNKase (Tenecteplase) Screening: Indications: Treatment will start within 4.5 hours onset of symptoms: No. General: Appears in no apparent distress. comfortable, Behavior is calm, cooperative, appropriate for age. Pain: Denies pain. Neuro: Level of Consciousness is awake, alert, obeys commands, Oriented to person, place, time, situation, Appropriate for age Dye Worker are equal bilaterally Moves all extremities. Gait is steady, Speech is slurred, Facial symmetry appears normal, Pupils are PERRLA, Intact. Cardiovascular: Capillary refill < 3 seconds Patient's skin is warm and dry. Rhythm is sinus rhythm. Respiratory: Airway is patent Respiratory effort is even, unlabored. GI: Abdomen is round non-distended. : No signs and/or symptoms were reported regarding the genitourinary system. EENT: No signs and/or symptoms were reported regarding the EENT system. Derm: No signs and/or symptoms reported regarding the dermatologic system. Musculoskeletal: No signs and/or symptoms reported regarding the musculoskeletal system. 11:30 Reassessment: Transfer to [facility] initiated per Dr. Mario. Transfer center staff aa5 states they will call ER back for Dr. Mario to speak to their neuro doctor. . 11:58 Reassessment: Patient appears in no apparent distress at this time. No changes from ld1 previously documented assessment. Patient and/or family updated on plan of care and expected duration. Pain level reassessed. Vital Signs: 10:16 BP 113 / 66; Pulse 77; Resp 18; Temp 98.1(O); Pulse Ox 100% on R/A; Weight 99.79 kg; ld1 Height 5 ft. 6 in. ; Pain 0/10; 10:16 Body Mass Index 35.51 (99.79 kg, 167.64 cm) ld1 10:16 Pain Scale: Adult ld1 NIH Stroke Scale Scores: 10:13 NIHSS Score: 2 ld1 ED Course: 09:52 Patient arrived in ED. am2 09:55 No provider procedures requiring assistance completed. Inserted saline lock: 20 gauge ld1 in right antecubital area, using aseptic technique. Blood collected. 09:58 Enrike Mario MD is Attending Physician. sp3 10:01 Triage completed. os 10:13 CT Stroke Brain w/o Contrast In Process Unspecified. EDMS 10:13 CT Head Angio In Process Unspecified. EDMS 10:13 CT Neck Angio In Process Unspecified. EDMS 10:16 Patient has correct armband on for positive identification. Placed in gown. Bed in low ld1 position. Call light in reach. Side rails up X2. [employer] content [employer] on. Pulse ox on. NIBP on. Door closed. Noise minimized. Warm blanket given. 10:49 Stroke CXR 1 View In Process Unspecified. EDMS 11:09 Yvon Alvarez MD is Hospitalizing Provider. sp3 11:30 Thoracentesis w/ US Guide In Process Unspecified. EDMS 11:48 Chest Single View In Process Unspecified. EDMS 11:58 Samra Acevedo RN is Primary Nurse. ld1 13:37 Arm band placed on right wrist. ld1 13:37 Patient transferred, IV remains in place. ld1 Administered Medications: 12:39 Drug: Aspirin PO 325 mg Route: PO; ld1 12:41 Follow up: Response: No adverse reaction ld1 Medication: 10:16 VIS not applicable for this client. ld1 Outcome: 11:10 Decision to Hospitalize by Provider. sp3 11:29 ER care complete, transfer ordered by . sp3 13:37 Transferred by ground EMS to [facility]. ld1 13:37 Condition: stable 13:37 Instructed on the need for transfer. 13:37 Patient left the ED. ld1 NIH Stroke Scale - NIH Stroke Score Date: 03/18/2023 Time: 10:13 Total Score = 2 10. Dysarthria (speech clarity - read or repeat words) - 1(Mild to Moderate) 11. Extinction and Inattention (visual/tactile/auditory/spatial/personal) - 0(No abnormality) 1a. Level of Consciousness (LOC) - 0(Alert) 1b. Level of Consciousness (LOC) (Month \T\ Age) - 0(Both) 1c. LOC Commands (Open \T\ Closes Eyes/Rn Military) - 0(Both) 2. Best Gaze (Lateral Gaze Paresis) - 0(Normal) 3. Visual Field Loss - 0(No visual loss) 4. Facial Palsy - 0(Normal) 5a. Left Arm: Motor (10-second hold) - 0(No drift) 5b. Right Arm: Motor (10-second hold) - 0(No drift) 6a. Left Leg: Motor (5-second hold - always test supine) - 0(No drift) 6b. Right Leg: Motor (5-second hold - always test supine) - 0(No drift) 7. Limb Ataxia (finger/nose \T\ heel/mayberry - test with eyes open) - 0(Absent) 8. Sensory Loss (pinprick arms/legs/face) - 0(Normal) 9. Best Language: Aphasia (description/naming/reading) - 1(Mild to moderate aphasia) Initials: ld1 Signatures: Dispatcher [employer] Anne Lyons RN RN aa5 Tamika Ojeda am2 Samra Acevedo RN RN ld1 Enrike Mario MD MD sp3 Issac Alas RN RN os Corrections: (The following items were deleted from the chart) 10:01 10:01 PMHx: Hypertension; os os 10:01 10:01 PMHx: Cirrhosis; os os 10:01 10:01 PMHx: Asthma; os os 10:01 10:01 PMHx: chronic bronchitis; os os 10:01 10:01 PMHx: on liver transplant list; os os 10:01 10:01 PSHx: stent to gallbladder; os os
--- NOTE | 2023-03-18 11:36 | RAD REPORT ---
EXAM DESCRIPTION: US - Thoracentesis w/ US Guide - 03/18/2023 11:28 am CLINICAL HISTORY: Pleural effusion. Physician Request COMPARISON: No comparisons FINDINGS: Preoperative diagnosis: Recurrent left effusion Post operative diagnosis: Same Conscious Sedation: None. Estimated blood loss: Minimal Specimens:No sample sent to lab The patient was placed in the upright recumbent position and the left posterior chest was prepped and draped in the usual sterile fashion. 1% Lidocaine was infiltrated into the soft tissues for local a nesthesia. Under sonographic guidance, a thoracentesis needle and 6 [place] catheter was advanced int o the left pleural space. Approximately 2400 mL yellow fluid was aspirated. Sa the patient tolerated the procedure without immediate complication and transferred to the floor in stable condition. IMPRESSION: Successful ultrasound-guided thoracentesis as detailed.
--- NOTE | 2023-03-18 11:52 | RAD REPORT ---
EXAM DESCRIPTION: RAD - Chest Single View - 03/18/2023 11:47 am CLINICAL HISTORY: POST THORACENTESIS COMPARISON: Chest Single View dated 03/18/2023; Chest Pa And Lat (2 Views) dated 01/30/2023; Chest Pa A nd Lat (2 Views) dated 01/16/2023; Chest Pa And Lat (2 Views) dated 12/20/2022 FINDINGS: Post left-sided thoracentesis. No pneumothorax identified. Improved aeration of left lung . IMPRESSION: No pneumothorax following left sided thoracentesis.
[2023-03-18] MEDS ORDERED: ASPIRIN 81 MG CHEWABLE TABLET ONE (12:45)
[2023-03-18 13:42] VITALS: BP 113/66; TEMP 98.1; O2SAT 100
--- NOTE | 2023-03-19 16:19 | EKG ---
Test Date: 2023-03-18 Test Time: 10:17:52 Ceramics Instructor: YEN MEASUREMENT RESULTS: Intervals: Rate: 76 OR: 162 QRSD: 90 QT: 400 QTc: 450 [place]: P: -3 OR: 162 QRS: 47 T: -1 INTERPRETIVE STATEMENTS: Normal sinus rhythm Nonspecific ST abnormality Abnormal ECG Compared to ECG 12/29/2022 04:32:48 ST (T wave) deviation now present Prolonged QT interval no longer present Electronically Signed On 03-19-23 16:17:20 CDT by Otto Grullon
== END 2023-03-18 13:37 ==
LOC: ER 09:50
DX: G45.9 Transient cerebral ischemic attack, unspecified (principal); J90 Pleural effusion, not elsewhere classified; R29.702 NIHSS score 2; F17.210 Nicotine dependence, cigarettes, uncomplicated; Z88.3 Allergy status to other anti-infective agents
CPT/HCPCS: 93005; 85025; 80048; 36415; 85610; 82565; 82947; 85730; 84484; 70496; 70498; 70450; 71045 ×2; 32555; 99285; Q9967

== ENCOUNTER 2023-04-14 18:13 | Emergency (ER) | payer BC ==
--- OUTSIDE RECORDS SUMMARY | 2023-04-14 18:22 | XMS REPORT | Continuity of Care Document ---
:1965 Author Organization [facility] t Address [address] [place] [address] [place] [id number] Care Team Providers Name Role Phone COREYSAURABH MAX Primary Care Physician Unavailable MARSHA BLACK Attending Clinician Unavailable MARIO MONTANO Attending Clinician Unavailable ASHLEY WRIGHT Attending Clinician Unavailable PAUL SUTTON Attending Clinician Unavailable MATY MEI Attending Clinician Unavailable SAMANTHA ALFREDO Attending Clinician Unavailable AMIE GOMEZ Attending Clinician Unavailable RIMMA GONZALEZ Attending Clinician Unavailable ARCENIO LAZO Attending Clinician Unavailable ROXANNA MAXWELL Attending Clinician Unavailable SERGIO BLACK Attending Clinician Unavailable DANUTA TAYLOR Attending Clinician Unavailable CARLOS RAY Attending Clinician Unavailable LEONARD LORA Attending Clinician Unavailable MP HARRIS Attending Clinician Unavailable CAROLYN BLOCK Attending Clinician Unavailable HIRAM HIGHTOWER Attending Clinician Unavailable Referred, Self Attending Clinician Unavailable VERONICA KRAMER Attending Clinician Unavailable LUCY PASCAL Attending Clinician Unavailable GOLDIE ALBRIGHT Attending Clinician Unavailable JOSELUIS STONER Attending Clinician Unavailable ERIKA CUELLAR Attending Clinician Unavailable BARRY CUNHA Attending Clinician Unavailable HEATHER MARIANO Attending Clinician Unavailable NENA MANE Attending Clinician Unavailable MARGIE ALLRED Attending Clinician Unavailable Mel VAUGHN, Du Attending Clinician Terri Concepcion Attending Clinician Fabiano VAUGHN, Gerardo Castro Attending Clinician Herman VAUGHN, Paul Hernández Attending Clinician [phone] Patricia VAUGHN MPH, Amie Lehman Attending Clinician [phone] Enmanuel VAUGHN, Megha Dumas Attending Clinician Castillo VAUGHN, Rylie Diaz Attending Clinician Graham VAUGHN, Dipak Long Attending Clinician Ana Luisa VAGUHN, Heather Thurman Attending Clinician [phone] Judi Vigil Attending Clinician Colt VAUGHN, Eun Burgos Attending Clinician Joseph SCHULTZ, Monica Walker Attending Clinician [phone] Arcenio Lazo Attending Clinician PAUL SUTTON Admitting Clinician Unavailable ASHLEY WRIGHT Admitting Clinician Unavailable ARCENIO LAZO Admitting Clinician Unavailable Referred, Self Admitting Clinician Unavailable HEATHER MARIANO Admitting Clinician Unavailable MARISABEL HO Admitting Clinician Unavailable JUDI VIGIL Admitting Clinician Unavailable Payers Payer Name Policy Type Policy Number Effective Date Expiration Date S chay BCBS PPO POS EPO [id number] 2022 00:00:00 CHOICE Problems Condition Condition Condition [...] Clinician VANCOMYC Allergy Active Other [facility] [place] 11-25 00:00: 00 Vancomyc Propensi Active Other (See Headache, [facility] to Comments) 316 "body [facility] adverse 00:00: clamping" Medica l reaction 00 Center s MELOXICA Allergy Active [facility] M 03-26 00:00: 00 Vancomyc Propensi Active Method i in ty to [facility] adverse 00:00: Hospita reaction 00 l s to drug NO KNOWN Allergy Active [facility] Family History Family Member Diagnosis Comments Start Date Stop Date Source Natural father Hypertension [facility] Natural father Kidney cancer [facility] Natural mother Arrhythmia [facility] Natural mother Asthma [facility] Natural mother Cirrhosis [facility] Natural mother Diabetes [facility] Social History Social Habit Start Date Stop Date Quantity Comments Source Gender identity [facility] Alcohol Std Drinks Medica l Center History [facility] Alcohol Binge Medical Malini ter Exposure to 2022-12-19 2022-12-[address] [facility] SARS-CoV-2 (event) 00:00:00 15:15:00 Medica l Center History [facility] 2022-12-29 2022-12-[address] [facility] Housing Unable to 00:00:00 00:00:00 Medical Center Pay History [facility] 2022-12-29 2022-12-[address] [facility] Housing Places 00:00:00 00:00:00 Medical Ce nter Lived History [facility] 2022-12-29 2022-12-[address] [facility] Housing Homeless 00:00:00 00:00:00 Medical Center Last Year History [facility] 2022-11-252022-11-[address] [facility] Alcohol Frequency 00:00:00 00:00:00 Medical Center History of Social 2019-05-03 2019-05-[address] function 00:00:00 00:00:00 Hospital Alcohol intake 2019-04-04 2019-04-04 Ex-drinker [facility] 00:00:[facility]:00:00 (finding) Hospital Tobacco use and 2019-04-04 2019-04-04 Smokeless [facility] exposure 00:00:00 00:00:00 tobacco non-user Hospital Sex Assigned At [birth year] [facility] 00:00:00 00:00:00 Hospital Smoking Status Start Date Stop Date Source Never smoked tobacco [facility] Medications Ordered Filled Start Stop Current Ordering Indication Dosage Frequency Signature Comments Components Source Medication Medication Date Date Medication? Clinician (SIG) Name Name spironolact Yes 25mg QD Take [address] [...] as needed for Nausea. torsemide 2022-0 2022- No 40mg QD Take [address] 40 mg Tab 4-26 05-26 by mouth [facility] 00:00: 23:59 in the Medical 00 :00 morning Center for 30 days. potassium 2022-0 2023- No 10meq QD Take [address] chloride 4-25 04-24 tablet (10 Luke s (KLOR-CON-M 00:00: 23:59 mEq total) Medical ) 10 MEQ CR 00 :00 by mouth Cent er tablet in the morning. propranoloL 2022-2023- No 10mg Q.[id number] Take [address] (INDERAL) 12-01- [id number] tablet (10 [facility] 10 MG 00:00: 23:59 3D mg total) Medica l tablet 00 :00 by mouth Center in the morning and 1 tablet (10 mg total) at noon and 1 tablet (10 mg total) in the evening. furosemide 2022-2023- No 20mg Take [address] (LASIX) 20 12-01-21 tablet (20 Veronica kes MG tablet 00:00: 23:59 mg total) Me dical 00 :00 by mouth Center daily as needed (leg swelling). albuterol 2022-2023- No 1{puff} Inhale [address] HFA 12-01 puff by [facility] (VENTOLIN 00:00: 23:59 mouth via Me dical HFA) 90 00 :00 inhaler Center mcg/actuati every 6 on inhaler (six) hours as needed for Wheezing. propranoloL 2023- No 10mg Q.[id number] Take [address] (INDERAL) 12-01- [id number] tablet (10 [facility] 10 MG 00:00: 23:59 [...] Center daily as needed (leg swelling). albuterol 2022-2023- No 1{puff} Inhale [address] HFA 12-01 puff by [facility] (VENTOLIN 00:00: 23:59 mouth via Me dical HFA) 90 00 :00 inhaler Center mcg/actuati every 6 on inhaler (six) hours as needed for Wheezing. propranoloL 2022-2023- No 10mg Q.[id number] Take [address] (INDERAL) 12-01 [id number] tablet (10 [facility] 10 MG 00:00: 23:59 3D mg total) Medica l tablet 00 :00 by mouth Center in the morning and 1 tablet (10 mg total) at noon and 1 tablet (10 mg total) in the evening. albuterol No 1{puff} Inhale [address] HFA 12-01 puff by [facility] (VENTOLIN 00:00: 23:59 mouth via Me dical HFA) 90 00 :00 inhaler Center mcg/actuati every 6 on inhaler (six) hours as needed for Wheezing. furosemide No 20mg Take [address] [facility] (LASIX) 20 12-01-25 tablet (20 Veronica kes MG tablet 00:00: 00:00 mg total) Me dical 00 :00 by mouth Center daily as needed (leg swelling). traMADoL 2022- No 50mg Take [address] (ULTRAM) 50 12-01- tablet (50 L ukes mg tablet 00:00: [...] st MG tablet 00:00: daily. Hospit a l valsartan 0 Yes 80mg QD Take 80 mg Me thodi (DIOVAN) 80 6-[address] MG tablet 00:00: daily. Hospit a l valsartan 0 Yes 80mg QD Take 80 mg Me thodi (DIOVAN) 80 6-[address] MG tablet 00:00: daily. Hospit a l valsartan Yes 80mg QD Take 80 mg Me thodi (DIOVAN) 80 6-[address] MG tablet 00:00: daily. Hospit a l valsartan 0 Yes 80mg QD Take 80 mg Me thodi (DIOVAN) 80 6-[address] MG tablet 00:00: daily. Hospit a l valsartan Yes 80mg QD Take 80 mg Me thodi (DIOVAN) 80 6-[address] MG tablet 00:00: daily. Hospit a l Vital Signs Vital Name Observation Time Observation Value Comments Source HEIGHT 2023-04-12 07:47:00 172.7 cm WEIGHT 2023-04-12 07:47:00 103.8 kg HEIGHT 2023-04-08 11:38:00 172.7 cm WEIGHT 2023-04-08 11:38:00 107.049 kg WEIGHT 2023-04-11 11:05:00 107.049 kg WEIGHT 2023-04-11 11:05:00 107.049 kg HEIGHT 2023-04-04 10:49:00 172.7 cm WEIGHT 2023-04-04 10:49:00 107.049 kg HEIGHT 2023-04-04 10:49:00 172.7 cm WEIGHT 2023-04-04 10:49:00 107.049 kg HEIGHT 2023-03-30 12:50:00 172.7 cm WEIGHT 2023-03-30 12:50:00 127.007 kg HEIGHT 2023-03-30 12:50:00 172.7 cm WEIGHT 2023-03-30 12:50:00 127.007 kg WEIGHT 2023-03-28 08:38:00 97.977 kg WEIGHT 2023-03-28 08:38:00 97.977 kg HEIGHT 2023-03-14 14:07:17 172.7 cm WEIGHT [...] kg Heart rate 2023-01-04 15:54:03 71 /min [facility] Respiratory rate 2023-01-04 15:54:03 18 /min [facility] Oxygen saturation in 2023-01-04 15:54:03 96 /min [facility] Arterial blood by Medical Ce nter Pulse oximetry Body temperature 2023-01-04 15:53:12 37 Odilia [facility] Systolic blood 2023-01-04 15:53:00 108 mm[Hg] [facility] Diastolic blood 2023-01-04 15:53:00 69 mm[Hg] [facility] Body weight 2023-01-04 07:30:00 111.727 kg [facility] BMI 2023-01-04 07:30:00 36.37 kg/m2 [facility] Body height 2023-01-02 09:27:00 175.3 cm [facility] Systolic blood 2022-12-01 08:02:00 121 mm[Hg] [facility] Diastolic blood 2022-12-01 08:02:00 60 mm[Hg] [facility] Heart rate 2022-12-01 08:02:00 79 /min [facility] Body temperature 2022-12-01 08:02:00 35.78 Odilia [facility] Respiratory rate 2022-12-01 08:02:00 18 /min [facility] Oxygen saturation in 2022-12-01 08:02:00 93 /min [facility] Arterial blood by Medical Ce nter Pulse oximetry Body height 2022-11-25 08:46:00 175.3 cm [facility] Body weight 2022-11-25 08:46:00 119.296 kg [facility] BMI 2022-11-25 08:46:00 38.84 kg/m2 [facility] Procedures Procedure Date / Time Performing Clinician Source Performed MAGNESIUM 2023-01-04 05:10:00 Teofilo [facility] METABOLIC 2023-01-04 05:10:00 Tr [facility] PHOSPHORUS 2023-01-04 05:10:00 Catalino [facility] CALCIUM, IONIZED 2023-01-04 05:09:00 [facility] CBC W/PLT COUNT & AUTO 2023-01-04 05:09:00 Catalino [facility] [id number] 2023-01-04 05:09:[address] [facility] CBC W/PLT COUNT & AUTO 2023-01-04 05:09[facility] 2023-01-03 05:02:00 Kathy [facility] COMPREHENSIVE METABOLIC 2023-01-03 05:02:00 Tr [facility] MAGNESIUM 2023-01-02 05:32:00 Tr [facility] METABOLIC 2023-01-02 05:32:00 Teofilo [facility] CALCIUM, IONIZED 2023-01-01 05:50:[address] [facility] COMPREHENSIVE METABOLIC 2023-01-01 05:12:00 Marisabel Ho [facility] MAGNESIUM 2023-01-01 05:12:00 Marisabel Ho [facility] PROTHROMBIN TIME/INR 2023-01-01 05:12:00 Rosalee Marisabel [facility] HEREDITARY HEMOCHROMATOSIS 2023-01-01 05:12:00 Dipak Arreola [facility] PHOSPHORUS 2023-01-01 05:12:00 [facility] CBC W/PLT COUNT & AUTO 2023-01-01 05:12:00 [facility] CBC W/PLT COUNT & AUTO 2023-01-01 05:12:00 [facility] 2D ECHO W/ DOPPLER 2022-12-31 14:04:45 Evelyn Portillo [facility] (CW/PW/COLOR) [facility] REPORT OF PROCEDURE - 2022-12-31 10:28:58 Gerardo Diaz I [facility] ENDOSCOPY [facility] EGD 2022-12-31 08:14:00 Gerardo Diaz [facility] ukes (ESOPHAGOGASTRODUODENOSCOP Medic al Center Y) COMPREHENSIVE METABOLIC 2022-12-31 04:48:00 Marisabel Ho [facility] MAGNESIUM 2022-12-31 04:48:00 Marisabel Ho [facility] PROTHROMBIN TIME/INR 2022-12-31 04:48:00 Marisabel Ho [facility] CALCIUM, IONIZED 2022-12-31 04:48:00 [facility] PHOSPHORUS 2022-12-31 04:48:00 [facility] CBC W/PLT COUNT & AUTO 2022-12-31 04:48:00 [facility] CBC W/PLT COUNT & AUTO 2022-12-31 04:48:00 [facility] HEPATITIS B CORE ANTIBODY, 2022-12-30 16:29:00 [facility] TOTAL [facility] HEPATITIS A ANTIBODY, IGG 2022-12-30 16:29:00 Marisabel Ho [facility] HEPATITIS C ANTIBODY 2022-12-30 16:29:00 [facility] HEPATITIS B SURFACE 2022-12-30 16:29:00 Marisabel Ho C HI [facility] ANTIGEN [facility] HEPATITIS B SURFACE 2022-12-30 16:29:00 [facility] santos C [facility] ANTIBODY [facility] FERRITIN 2022-12-30 16:29:00 [facility] Marisabel [facility] IRON, TIBC, % SAT. 2022-12-30 16:29:00 Marisabel Ho I [facility] (WITHOUT FERRITIN) [facility] CERULOP[facility]MIN 2022-12-30 16:29:00 [facility] ALPHA FETOPROTEIN (AFP), 2022-12-30 16:29:00 [facility] TUMOR MARKER [facility] ANTI-NUCLEAR ANTIBODY 2022-12-30 16:29:00 [facility] Marisabelher Fuller [facility] (EMORY) [facility] ACTIN (SMOOTH MUSCLE) 2022-12-30 16:29:00 [facility] Corporation[facility] sant[facility] ANTIBODY, IGG [facility] EMORY TITER AND PATTERN 2022-12-30 16:29:00 [facility] MITOCHONDRIAL AB SCREEN 2022-12-30 16:29:00 [facility] Corporation[facility] santos [facility] MITOCHONDRIAL AB TITER 2022-12-30 16:29:00 [facility] [id number], 2022-12-30 15:51:00 Marisabel Ho [facility] PROTHROMBIN TIME/INR 2022-12-30 15:51:00 [facility] LACTATE DEHYDROGENASE 2022-12-30 15:48:00 Marisabel Ho [facility] ([facility]) [facility] COMPREHENSIVE METABOLIC 2022-12-30 15:48:00 Marisabel Ho [facility] MAGNESIUM 2022-12-30 15:48:00 Marisabel Ho [facility] CALCIUM, IONIZED 2022-12-30 15:48:00 [facility] PHOSPHORUS 2022-12-30 15:48:00 [facility] CBC W/PLT COUNT & AUTO 2022-12-30 15:48:00 [facility] TYPE AND SCREEN, AUTOMATED 2022-12-30 15:48:00 Marisabel Ho [facility] CBC W/PLT COUNT & AUTO 2022-12-30 15:48:00 [facility] XR CHEST 1 VIEW PORTABLE / 2022-12-30 14:22:00 Tomas Wie [facility] US PARACENTESIS 2022-12-30 12:34:00 Rosalee [facility] BODY FLUID CULTURE + GRAM 2022-12-30 12:15:00 Marisabel Ho [facility] PROTEIN, BODY FLUID 2022-12-30 12:15:00 [facility] ALBUMIN, BODY FLUID 2022-12-30 12:15:00 [facility] AMYLASE PERITONEAL FLUID 2022-12-30 12:15:00 [facility] MISCELLANEOUS LAB ORDER 2022-12-30 12:15:00 Marisabel Ho [facility] BODY FLUID CELL COUNT WITH 2022-12-30 11:59:00 Marisabel Ho Alina [facility] CT ABDOMEN/PELVIS WITH IV 2022-12-30 10:45:00 Margie Allred [facility] CONTRAST [facility] BODY FLUID CELL COUNT WITH 2022-12-30 10:01:00 Marisabel Ho [facility] ALBUMIN PLEURAL FLUID 2022-12-30 10:01:00 Major Murry [facility] GLUCOSE PLEURAL FLUID 2022-12-30 10:01:00 Major Murry [facility] LACTATE DEHYDROGENASE 2022-12-30 10:01:00 [facility] PLE[facility]UID [facility] er PH, BODY FLUID 2022-12-30 10:01:00 [facility], TOTAL, PLEURAL 2022-12-30 10:01:00 Mark Wei [facility] CYTOLOGY 2022-12-30 09:33:00 Marisabel Ho [facility] BODY FLUID CULTURE + GRAM 2022-12-30 09:27:00 Marisabel Ho [facility] MISCELLANEOUS LAB ORDER 2022-12-30 09:26:[address] [facility] BLOOD CULTURE 2022-12-29 23:16[facility]00 [facility]/ MICROSCOPIC 2022-12-29 21:23:00 [facility] PROTEIN, RANDOM URINE 2022-12-29 21:23:00 [facility] CREATININE, RANDOM URINE 2022-12-29 21:23:00 [facility] PROCALCITONIN 2022-12-29 17:04:00 [facility]ENOUS 2022-12-29 17:04[facility] / 2022-12-29 15:48:00 Marisabel Ho [facility] B-TYPE NATRIURETIC FACTOR 2022-12-29 14:58:00 Marisabel Ho [facility] (BNP) [facility] CBC W/PLT COUNT & AUTO 2022-12-29 13:10:00 Marisabel Ho [facility] 2022-12-29 13:10:00 Marisabel Ho [facility] PROTHROMBIN TIME/INR 2022-12-29 13:10:00 Marisabel Ho [facility] MAGNESIUM 2022-12-29 13:10:00 [facility] Marisabelher Fuller [facility] CBC W/PLT COUNT & AUTO 2022-12-29 13:10:00 Marisabel Ho [facility] PREPARE PLASMA 2022-12-01 23:54:00 Graham [facility] CBC (HEMOGRAM ONLY) 2022-12-01 03:41:00 [facility] 2022-12-01 03:41:00 Graham [facility] REPORT OF PROCEDURE - 2022-11-30 12:20:26 Jeannette, Arcenio [facility] ENDOSCOPY [facility] FL FLUORO NON-SPECIFIC UP 2022-11-30 09:10:00 [facility] [address] [place] [address] FINE NEEDLE ASPIRATION BY 2022-11-30 08:48:00 Jeannette, Arcenio [facility] FINE NEEDLE ASPIRATE (FNA) 2022-11-30 08:48:00 Jeannette, Arcenio Gold [facility] ESOPHAGOSCOPY, WITH 2022-11-30 08:16:00 Jeannette, Arcenio Cole [facility] I [facility] ENDOSCOPIC ULTRASOUND Medical Ce nter ULTRASOUND, UPPER GI 2022-11-30 08:16:00 Jeannette, Arcenio Mcgee [facility] TRACT, ENDOSCOPIC, [facility] FINE NEEDLE ASPIRATION PROCEDURE W/ C-ARM 2022-11-30 08:16:00 Jeannette, Arcenio [facility] TRANSFUSE PLASMA 2022-11-30 05:15:00 Dipak [facility] CBC (HEMOGRAM ONLY) 2022-11-30 03:22:00 Graham [facility] METABOLIC 2022-11-30 03:22:00 Graham [facility] PROTHROMBIN TIME/INR 2022-11-30 03:22:00 Graham [facility] PROTHROMBIN TIME/INR 2022-11-29 22:46:00 Jen Samuel [facility] TYPE AND SCREEN, AUTOMATED 2022-11-29 22:46:00 Graham [facility] ANTIBODY SCREEN 2022-11-29 22:46:00 Graham [facility] NM HEPATOBILIARY (HIDA) 2022-11-29 12:01:00 Dipak Arreola [facility] SCAN WITH [facility] Medical Cente r FRACTION CBC (HEMOGRAM ONLY) 2022-11-29 04:42:00 Graham [facility] COMPREHENSIVE METABOLIC 2022-11-29 04:42:00 Graham [facility] CBC (HEMOGRAM ONLY) 2022-11-28 00:55:00 Graham [facility] METABOLIC 2022-11-28 00:55:00 Graham [facility] CBC (HEMOGRAM ONLY) 2022-11-27 04:39:00 Graham [facility] COMPREHENSIVE METABOLIC 2022-11-27 04:39:00 Graham [facility] CBC W/PLT COUNT & AUTO 2022-11-26 04:43:00 [facility] BASIC METABOLIC PANEL 2022-11-26 04:43:00 [facility]EL 2022-11-26 04:43:00 Castillo [facility] CBC W/PLT COUNT & AUTO 2022-11-26 04:43:00 Castillo [facility] PROTHROMBIN TIME/INR 2022-11-26 04:43:00 Rylie Chong [facility] MR ABDOMEN WITHOUT IV 2022-11-25 21:58:00 [facility] Medical Center US ABDOMEN LIMITED 2022-11-25 16:23:00 [facility]INE [facility]URE 2022-11-25 09:58:00 CastilloRylie [facility] URINALYSIS W/ REFLEX URINE 2022-11-25 09:58:00 Castillo Rylie [facility] ABORH, MANUAL 2022-11-25 08:39:00 Arnie Leydironn Caldera [facility] CBC W/PLT COUNT & AUTO 2022-11-25 06:36:00 Judi Vigil [facility] CBC W/PLT COUNT & AUTO 2022-11-25 06:36:[address] [facility] COMPREHENSIVE METABOLIC 2022-11-25 06:36:00 Judi Vigil [facility] PANEL [facility] MAGNESIUM 2022-11-25 06:36:00 TuJudi leong [facility] PHOSPHORUS 2022-11-25 06:36:00 [facility] [facility] PROTHROMBIN TIME/INR 2022-11-25 06:36:00 [facility]ILIR[facility], [facility] 2022-11-25 06:36:[address] [facility] TYPE AND SCREEN, AUTOMATED 2022-11-25 06:35:00 TuKirk leong [facility] Plan of Care Planned Activity Planned [...] Center INFLUENZA VACCINE (Season Ended)] Future Scheduled 2023-04-12 SHINGLES VACCINES ([facility] 15:44:48 of 2) [code = SHINGLES VACCINES (1 of 2)] Future Scheduled 2023-04-12 INFLUENZA VACCINE [facility] Test 15:44:48 [code = INFLUENZA VACCINE] Future Scheduled 2023-04-12 Screening for [facility] Test 15:44:48 malignant neoplasm of colon (procedure) [code = 105160322] Future Scheduled 2023-04-12 [facility]ening for [facility] Test 15:44:48 malignant neoplasm of colon (procedure) [code = 312857533] Future Scheduled 2023-04-12 [facility] for [facility] Test 15:44:48 malignant neoplasm of colon (procedure) [code = 890709896] Future Scheduled 2023-04-12 COVID[facility]19 [facility]:44[facility]48 [code = COVID-19 VACCINE (#1)] Future Scheduled 2023-04-12 Screening for [facility] Test 15:44:48 malignant neoplasm of cervix (procedure) [code = 633067650] Future Scheduled 2023-04-12 BREAST CANCER [facility] Test 15:44:48 SCREENING [code = BREAST CANCER SCREENING] Future Scheduled 2023-04-12 Screening for [facility] Test 15:44:48 malignant neoplasm of colon (procedure) [code = 723777731] Future Scheduled 2023-04-12 [facility]ening for [facility] Test 15:44:48 malignant neoplasm of colon (procedure) [code = 804012148] Future Scheduled 2023-04-01 Screening for [facility] Test 11:23:59 malignant neoplasm of colon (procedure) [code = 265396838] Future Scheduled 2023-04-01 Screening for [facility] Test 11:23:59 malignant neoplasm of colon (procedure) [code = 830098776] Future Scheduled 2023-04-01 [facility] for [facility] Test 11:23:59 malignant neoplasm of colon (procedure) [code = 912544780] Future Scheduled 2023-04-01 COVID-19 [facility]ACCINE (#[facility] 11:23:59 [code = COVID-19 VACCINE (#1)] Future Scheduled 2023-04-01 Screening for [facility] Test 11:23:59 malignant neoplasm of cervix (procedure) [code = 883146754] Future Scheduled 2023-04-01 BREAST CANCER [facility] Test 11:23:59 SCREENING [code = BREAST CANCER SCREENING] Future Scheduled 2023-04-01 [facility] Test 11:23:59 malignant neoplasm of colon (procedure) [code = 084368973] Future Scheduled 2023-04-01 Screening for [facility] [facility] Test 11:23:59 malignant neoplasm of colon (procedure) [code = 440906195] Future Scheduled 2023-04-01 SHINGLES VACCINES ([facility] 11:23:59 of 2) [code = SHINGLES VACCINES (1 of 2)] Future Scheduled 2023-04-01 INFLUENZA VACCINE [facility] 11:23:59 [code = INFLUENZA VACCINE] Future Scheduled 2023-03-11 [facility] Test 10:38:56 malignant neoplasm of colon (procedure) [code = 766952986] Future Scheduled 2023-03-11 [facility] Test 10:38:56 malignant neoplasm of colon (procedure) [code = 066621456] Future Scheduled 2023-03-11 [facility] Test 10:38:56 malignant neoplasm of colon (procedure) [code = 035147890] Future Scheduled 2023-03-11 COVID-19 VACCINE (#1) [facility] Test 10:38:56 [code = COVID-19 VACCINE (#1)] Future Scheduled 2023-03-11 [facility] Test 10:38:56 malignant neoplasm of cervix (procedure) [code = 765497043] Future Scheduled 2023-03-11 BREAST CANCER [facility] Test 10:38:56 SCREENING [code = BREAST CANCER SCREENING] Future Scheduled 2023-03-11 [facility] Test 10:38:56 malignant neoplasm of colon (procedure) [code = 487363224] Future Scheduled 2023-03-11 [facility] Test 10:38:56 malignant neoplasm of colon (procedure) [code = 044901737] Future Scheduled 2023-03-11 SHINGLES VACCINES (1 [facility] 10:38:56 of 2) [code = SHINGLES VACCINES (1 of 2)] Future Scheduled 2023-03-11 IN[facility]UENZA VACCINE [facility] 10:38:56 [code = INFLUENZA VACCINE] Future Scheduled 2023-02-14 [facility] Test 23:01:21 malignant neoplasm of colon (procedure) [code = 913274937] Future Scheduled 2023-02-14 [facility] Test 23:01:21 malignant neoplasm of colon (procedure) [code = 289010238] Future Scheduled 2023-02-14 [facility] Test 23:01:21 malignant neoplasm of colon (procedure) [code = 173997415] Future Scheduled 2023-02-14 COVID-19 VACCINE (#1) [facility] Test 23:01:21 [code = COVID-19 VACCINE (#1)] Future Scheduled 2023-02-14 [facility] Test 23:01:21 malignant neoplasm of cervix (procedure) [code = 200908610] Future Scheduled 2023-02-14 BREAST CANCER [facility] Test 23:01:21 SCREENING [code = BREAST CANCER SCREENING] Future Scheduled 2023-02-14 [facility] Test 23:01:21 malignant neoplasm of colon (procedure) [code = 062313576] Future Scheduled 2023-02-14 [facility] Test 23:01:21 malignant neoplasm of colon (procedure) [code = 151211167] Future Scheduled 2023-02-14 SHINGLES VACCINES (1 Met [facility] Test 23:01:21 of 2) [code = SHINGLES VACCINES (1 of 2)] Future Scheduled 2023-02-14 INFLUENZA VACCINE [facility] Test 23:01:21 [code = INFLUENZA VACCINE] Future Scheduled 2023-01-06 COVID-19 VACCINE (#1) [facility] Test 08:48:32 [code = COVID-19 VACCINE (#1)] Future Scheduled 2023-01-06 [facility] Test 08:48:32 malignant neoplasm of cervix (procedure) [code = 466324931] Future Scheduled 2023-01-06 BREAST CANCER [facility] Test 08:48:32 SCREENING [code = BREAST CANCER SCREENING] Future Scheduled 2023-01-[address] [facility] Test 08:48:32 [code = COLONOSCOPY SCREENING] Future Scheduled 2023-01-06 SHINGLES VACCINES (1 [facility] Test 08:48:32 of 2) [code = SHINGLES VACCINES (1 of 2)] Future Scheduled 2023-01-06 INFLUENZA VACCINE [facility] Test 08:48:32 [code = INFLUENZA VACCINE] Future Scheduled 2022-12-17 COVID-19 VACCINE (#1) [facility] Test 12:12:44 [code = COVID-19 VACCINE (#1)] Future Scheduled 2022-12-17 Screening for [facility] Test 12:12:44 malignant neoplasm of cervix (procedure) [code = 655077114] Future Scheduled 2022-12-17 BREAST CANCER [facility] Test 12:12:44 SCREENING [code = BREAST CANCER SCREENING] Future Scheduled 2022-12-[address] [facility] Test 12:12:44 [code = COLONOSCOPY SCREENING] Future Scheduled 2022-12-17 SHINGLES VACCINES (1 [facility] Test 12:12:44 of 2) [code = SHINGLES VACCINES (1 of 2)] Future Scheduled 2022-12-17 INFLUENZA VACCINE [facility] Test 12:12:44 [code = INFLUENZA VACCINE] Future Scheduled 2022-12-17 COVID-19 VACCINE (#1) [facility] Test 12:12:44 [code = COVID-19 VACCINE (#1)] Future Scheduled 2022-12-17 Screening for [facility] Test 12:12:44 malignant neoplasm of cervix (procedure) [code = 920935428] Future Scheduled 2022-12-17 BREAST CANCER [facility] Test 12:12:44 SCREENING [code = BREAST CANCER SCREENING] Future Scheduled 2022-12-[address] [facility] Test 12:12:44 [code = COLONOSCOPY SCREENING] Future Scheduled 2022-12-17 SHINGLES VACCINES (1 [facility] Test 12:12:44 of 2) [code = SHINGLES VACCINES (1 of 2)] Future Scheduled 2022-12-17 [facility]UENZA VACCINE [facility] Test 12:12:44 [code = INFLUENZA VACCINE] Future Scheduled 2022-09-[address] [facility] Test 11:52:03 [code = COLONOSCOPY SCREENING] Future Scheduled 2022-09-05 SHINGLES VACCINES (1 [facility] Test 11:52:03 of 2) [code = SHINGLES VACCINES (1 of 2)] Future Scheduled 2022-09-05 INFLUENZA VACCINE [facility] 11:52:03 [code = INFLUENZA VACCINE] Future Scheduled 2022-09-05 COVID-19 [facility]ACCINE (#1[facility] 11:52:03 [code = COVID-19 VACCINE (#1)] Future Scheduled 2022-09-05 [facility] Test 11:52:03 malignant neoplasm of cervix (procedure) [code = 351471543] Future Scheduled 2022-09-05 BREAST CANCER [facility] Test 11:52:03 SCREENING [code = BREAST [...] [facility] s Test 00:00:00 (procedure) [code = [facility] 76759174] Future Scheduled [address] [facility] 00:00:00 (procedure) [code = [facility] 03849950] Future Scheduled [address] [facility] Test 00:00:00 (procedure) [code = [facility] 94758745] Future Scheduled [address] [facility] Test 00:00:00 malignant [facility] of [facility] cervix (procedure) [code = 094317178] Future Scheduled [address] [facility] Test 00:00:00 [facility] cervix (procedure) [code = 762379998] Future Scheduled [address] [facility] Test 00:00:00 [facility] cervix (procedure) [code = 384096350] Future Scheduled 1983 DTAP/TDAP/TD VACCINES [facility] [...] [facility] breast (procedure) [code = 588371471] Future Scheduled [address] [facility] Test 00:00:00 (combo) [code = CT Medical C enter Colonography (combo)] Future Scheduled [address] [facility] Test 00:00:00 malignant neoplasm of [facility] colon (procedure) [code = 491406470] Future Scheduled [address] [facility] Test 00:00:00 malignant neoplasm of [facility] colon (procedure) [code = 280073232] Future Scheduled [address] [facility] Test 00:00:00 malignant neoplasm of [facility] colon (procedure) [code = 335448513] Future Scheduled [address] [facility] Test 00:00:00 malignant neoplasm of [facility] colon (procedure) [code = 377628247] Future Scheduled 1965 Sigmoidoscopy [facility] Medical [facility] r Future Scheduled [address] [facility] [facility] Test 00:00:00 malignant neoplasm of [facility] breast (procedure) [code = 613709728] Future Scheduled [address] [facility] Test 00:00:00 (combo) [code = CT Medical C enter Colonography (combo)] Future Scheduled [address] [facility] Test 00:00:00 malignant neoplasm of [facility] colon (procedure) [code = 644198798] Future Scheduled [address] [facility] Test 00:00:00 malignant neoplasm of [facility] colon (procedure) [code = 311853803] Future Scheduled [address] [facility] Test 00:00:00 malignant neoplasm of [facility] colon (procedure) [code = 142513774] Future Scheduled [address] [facility] Test 00:00:00 malignant neoplasm of [facility] colon (procedure) [code = 161682082] Future Scheduled 1965 S[facility]oscopy [facility] [address] [facility] [facility] Test 00:00:00 malignant neoplasm of [facility] breast (procedure) [code = 062045984] Future Scheduled [address] [facility] Test 00:00:00 (combo) [code = CT Medical C enter Colonography (combo)] Future Scheduled [address] [facility] [facility] Test 00:00:00 malignant neoplasm of [facility] colon (procedure) [code = 565576451] Future Scheduled [address] [facility] [facility] Test 00:00:00 malignant neoplasm of [facility] colon (procedure) [code = 240808186] Future Scheduled [address] [facility] Test 00:00:00 malignant neoplasm of [facility] colon (procedure) [code = 811793795] Future Scheduled [address] [facility] [facility] Test 00:00:00 malignant neoplasm of [facility] colon (procedure) [code = 916926233] Future Scheduled 1965 S[facility] Medical Cent[facility] r Encounters Start End Encounter Admission Attending Care Care Encounter Source Date/Time Date/Time Type Type Clinicians Facility Department ID 2023-03-21 Inpatient ER BLACK, [facility] [id number] SLE 16:28:17 JONI-UY 2023-03-21 Inpatient ER DUSTY, [facility] [id number] SLEH 13:20:03 [facility] 2023-03-21 Inpatient ER DUSTY, [facility] [id number] SLE 12:01:44 [facility] 2023-03-19 Inpatient ER BRANN, [facility] [id number] SLE 06:54:39 [place] 2023-03-19 Inpatient ER BRANN, [facility] [id number] SLE [facility]:54[facility] ER HERMAN, [facility] [id number] SLE 05:45:27 PAUL 2023-02-17 Inpatient ER HAMIDA, [facility] [id number] SLEH 07:06:50 [facility] 2023-02-17 Inpatient ER HAMIDA, [facility] [id number] SLEH 07:04:58 [facility] 2023-05-12 2023-05-12 Outpatient EL SLEH SLEH [id number] SLEH 00:00:00 00:00:00 2023-05-06 2023-05-06 Outpatient JOLLY ALFREDO SLEH SLEH [id number] SLEH 00:00:00 00:00:00 SAMANTHA 2023-05-02 2023-05-02 Outpatient JOLLY ALFREDO SLEH SLEH [id number] SLEH 00:00:00 00:00:00 SAMANTHA 2023-04-29 2023-04-29 Outpatient JOLLY ALFREDO SLEH SLEH [id number] SLEH 00:00:00 00:00:00 SAMANTHA 2023-04-25 2023-04-25 Outpatient JOLLY ALFREDO SLEH SLEH [id number] SLEH 00:00:00 00:00:00 SAMANTHA 2023-04-22 2023-04-22 Outpatient JOLLY ALFREDO SLEH SLE [id number] SLEH 00:00:00 00:00:00 SAMANTHA 2023-04-21 2023-04-21 Outpatient JOLLY GOMEZ, SLE SLEH [id number] SLEH 00:00:00 00:00:00 AMIE 2023-04-18 2023-04-18 Outpatient EL SLEH SLE [id number] SLEH 00:00:00 00:00:00 2023-04-18 2023-04-18 Outpatient JOLLY GONZALEZ, SLEH SLEH [id number] SLEH 00:00:00 00:00:00 RISE 2023-04-18 2023-04-18 Outpatient EL SLEH SLE [id number] SLEH 00:00:00 00:00:00 2023-04-15 2023-04-15 Outpatient JOLLY ALFREDO SLEH SLEH [id number] SLEH 00:00:00 00:00:00 SAMANTHA 2023-04-12 2023-04-12 Outpatient JEANNETTE, SLEH SLEH [id number] SLEH 15:44:45 23:59:00 ARCENIO 2023-04-12 2023-04-12 Outpatient EL JEANNETTE, SLE Surgery [id number] SLEH 06:46:00 14:10:00 ARCENIO 2023-04-11 2023-04-11 Outpatient WAYNE, SLEH SLEH [id number] SLEH 12:43:09 23:59:00 JONI-UY 2023-04-11 2023-04-11 Outpatient JOLLY ALFREDO, SLEH SLEH [id number] SLEH 08:40:34 12:42:00 SAMANTHA 2023-04-08 2023-04-08 Outpatient EL WAYNE, SLEH SLEH [id number] SLEH 14:45:43 23:59:00 JONI-UY 2023-04-08 2023-04-08 Outpatient JOLLY ALFREDO SLEH SLEH [id number] SLEH 13:22:14 14:44:00 SAMANTHA 2023-04-08 2023-04-08 Outpatient JOLLY LAZO, SLEH SLEH [id number] SLEH 00:00:00 00:00:00 ARCENIO 2023-04-04 2023-04-04 Emergency ER ALISSA, SLEH SLEH [id number] SLEH 15:50:34 23:59:00 ROXANNA 2023-04-04 2023-04-04 Emergency ER BLACK, SLEH Emergency [id number] SLEH 10:52:00 18:02:00 SERGIO 2023-04-04 2023-04-04 Emergency ER ALISSA, SLEH SLEH [id number] SLEH 11:09:51 11:09:51 ROXANNA 2023-04-04 2023-04-04 Outpatient JOLLY TAYLOR, SLEH SLEH [id number] SLEH 09:07:02 10:51:00 DANUTA 2023-04-04 2023-04-04 Outpatient JOLLY ALFREDO, SLEH SLEH [id number] SLEH 07:11:40 09:06:00 SAMANTHA 2023-04-01 2023-04-01 Outpatient CARLOS HANLEY SLEH SLEH [id number] SLEH 14:06:52 23:59:00 2023-04-01 2023-04-01 Outpatient JOLLY ALFREDO SLEH SLEH [id number] SLEH 11:23:55 14:05:00 SAMANTHA 2023-03-30 2023-03-30 Emergency ER [facility] SLE Emergency [id number] SLEH 12:54:00 21:42:00 ROLEONARD 2023-03-30 2023-03-30 Emergency ER [facility] SLE SLE [id number] SLEH 19:18:13 19:18:13 ROLEONARD 2023-03-28 2023-03-[address] [facility] [id number] SLEH 10:32:44 23:59:00 JONI-UY 2023-03-28 2023-03-[address] [facility] [id number] SLEH 08:27:00 10:31:00 SAMANTHA 2023-03-25 2023-03-[address] [facility] [id number] SLEH 14:29:31 23:59:00 JONI-UY 2023-03-25 2023-03-[address] [facility] [id number] SLEH 10:29:27 14:28:00 SAMANTHA 2023-03-18 2023-03-21 Inpatient ER [facility] Neurology [id number] SLEH 14:40:00 21:17:00 NAJAMUS 2023-03-18 2023-03-18 Outpatient JOLLY SALOMONLER, SLSL SLSL [id number] SLSL 00:00:00 00:00:00 SAMANTHA 2023-03-14 2023-03-14 Outpatient HARRIS, SLSL SLSL [id number] SLSL 14:32:47 23:59:00 MP 2023-03-14 2023-03-14 Outpatient JOLLY ALFREDO, SLSL SLSL [id number] SLSL 13:16:04 14:31:00 SAMANTHA 2023-03-11 2023-03-11 Outpatient BLOCK, SLSL SLSL [id number] SLSL 11:49:46 23:59:00 CAROLYN 2023-03-11 2023-03-11 Outpatient JOLLY ALFREDO, SLSL SLSL [id number] SLSL 10:38:51 11:48:00 SAMANTHA 2023-03-09 2023-03-09 Outpatient EL MAYNORIKGLENN GALICIA SLE [id number] SLEH 15:31:24 23:59:00 AMIE 2023-03-09 2023-03-09 Outpatient VIRGILIO DOAN SLE [id number] SLEH 15:31:05 23:59:00 AMIE 2023-03-09 2023-03-09 Outpatient VIRGILIO DOAN SLE [id number] SLEH 15:27:00 15:30:00 AMIE 2023-03-09 2023-03-09 Outpatient VIRGILIO DOAN SLE [id number] SLEH 11:45:35 14:14:00 AMIE 2023-03-09 2023-03-09 Outpatient EL GLENN HIGHTOWER SLE [id number] SLEH 13:43:52 13:43:52 HIRAM 2023-03-09 2023-03-09 Outpatient EL SLE SLE [id number] SLEH 13:38:04 13:38:04 2023-03-09 2023-03-09 Outpatient EL [facility] [id number] [facility] 12:00:00 12:00:00 Self 64 Woman[facility] s [facility] 2023-03-09 2023-03-09 Outpatient VIRGILIO DOAN SLE [id number] SLEH 11:45:00 11:44:00 AMIE 2023-03-09 2023-03-09 Outpatient EL SLE SLE [id number] SLEH 07:29:31 07:29:31 2023-03-09 2023-03-09 Outpatient EL SLE SLE [id number] SLEH 07:28:52 07:28:52 2023-03-09 2023-03-09 Outpatient EL WILLIAMSVERONICA SLE SLEH [id number] SLEH 07:28:25 07:28:25 2023-03-09 2023-03-09 Outpatient EL SLE SLE [id number] SLEH 07:27:43 07:27:43 2023-03-09 2023-03-09 Outpatient EL NAIDA SLE SLE [id number] SLEH 07:27:20 07:27:20 LUCY 2023-03-09 2023-03-09 Outpatient EL SLEH SLE [id number] SLE 07:26:14 07:26:14 2023-03-09 2023-03-09 [id number] [facility] 07:25:32 07:25:32 2023-03-09 2023-03-09 Outpatient EL SLE SLE [id number] SLE 07:25:08 07:25:08 2023-03-09 2023-03-09 Outpatient EL PATRICIA, [facility] [id number] SLE 00:00:00 00:00:00 AMIE 2023-03-09 2023-03-[address] [facility] [id number] SLE 00:00:00 00:00:00 AMIE 2023-03-08 2023-03-08 Outpatient NATALEE, GOLDIE SLSL SLSL [id number] SLSL 12:43:34 23:59:00 2023-03-08 2023-03-08 Outpatient EL GEORGIANA, SLSL SLSL [id number] SLSL 11:13:32 12:42:00 DIPABEN 2023-03-08 2023-03-08 Outpatient EL GEORGIANA, [facility] [id number] SLEH 00:00:00 00:00:00 DIPABEN 2023-03-03 2023-03-03 Outpatient EL GEORGIANA, SLSL Inter Rad [id number] SLSL 12:17:20 15:00:00 DIPABEN 2023-03-03 2023-03-03 Outpatient EL BLOCK, SLSL SLSL [id number] SLSL 14:18:43 14:18:43 CAROLYN 2023-03-02 2023-03-02 [facility] [id number] [facility]H 00:00:00 00:00:00 DIPABEN 2023-02-26 2023-02-26 Emergency ER POLO, [facility] Emergency [id number] SLE 15:45:00 22:21:00 ERIKA 2023-02-26 2023-02-26 Emergency ER POLO, [facility] [id number] SLEH 20:13:37 20:13:37 ERIKA 2023-02-26 2023-02-26 Outpatient [facility] [id number] SLEH 00:00:00 00:00:00 ERIKA 2023-02-26 2023-02-26 Outpatient POLO SLEH SLE [id number] SLEH 00:00:00 00:00:00 ERIKA 2023-02-21 2023-02-21 [facility] [id number] [facility]H 11:38:15 23:59:00 DANUTA 2023-02-21 2023-02-21 [facility] [id number] SLEH 08:20:14 11:37:00 DIPABEN 2023-02-17 2023-02-17 [facility] [id number] SLEH 08:30:58 23:59:00 DANUTA 2023-02-15 2023-02-17 Inpatient ER HAMIDA, [facility] General Med [id number] SLEH 22:54:00 11:59:00 MATY 2023-02-16 2023-02-[address] [facility] [id number] SLEH 06:04:31 23:59:00 ASHLEY 2023-02-04 2023-02-04 [facility] [id number] SLEH 09:09:56 23:59:00 DIPABEN 2023-01-25 2023-01-[address] [facility] [id number] SLEH 13:24:47 13:24:47 SAMANTHA 2023-01-20 2023-01-23 Inpatient ER MASSUMI, [facility] Emergency [id number] SLEH 13:21:00 15:13:00 HEATHER 2022-12-29 2023-01-04 Inpatient ER ATHREYA, [facility] Internal [id number] SLEH 12:45:00 18:19:00 KHNORWALKN Med 2022-12-31 2022-12-31 Anesthesia Pathikonda, Du [facility] [id number] [facility] 08:14:00 09:23:00 [facility] 2022-12-31 2022-12-31 Surgery Fabiano [facility] [id number] 08:00:00 09:00:00 Gerardo [facility] 2022-12-29 2022-12-29 Office Paul Sutton [facility] [id number] 12:00:00 13:00:00 Visit Amie Gomez [facility] 2022-12-29 2022-12-[address] [facility] [id number] SLE 00:00:00 00:00:00 AMIE 2022-12-29 2022-12-29 Travel [facility] [id number] [facility] 00:00:00 [facility] 2022-11-25 2022-12-01 Inpatient ER [facility] [id number] SLE 04:43:00 11:42:00 [facility] 2022-11-25 2022-12-01 Hospital ER Megha Singer [facility] [id number] [facility] [address] 04:43:00 11:42:[address] [facility] Graham Dipak [facility] Tuevajdjassi Ivanshalom Jay 2022-11-30 2022-11-30 Anesthesia Eun Gregory [facility] [id number] 08:16:00 09:34:00 Event Monica Ruiz [facility] 2022-11-30 2022-11-30 Surgery Jeannette, [facility] [id number] [facility] [address] 08:02:00 09:00:00 [facility] Results Test Description Test Time Test Comments Results Result Sour e Comments [place] FLUORO 2023-04-12 NON-SPECIFIC UP TO 15:46:14 1 [facility]OUR [facility]: 1965 Sex: F Th is is a non-reportable study with no Radiologist dictation. Please refer to your PACS to review images, or Doc Flowsheets for documentation on studies without images. US THORACENTESIS 2023-04-11 17:36:47 [facility] 1965 Sex: F Ul trasound guided left thoracentesis.Clinica l History: Left pleural effusion.Modality: Ultrasound.Sedation: None. Jeeper Operator: Ellis Lylesistant: None. Estimated Blood Loss: 1ccSpecimen: 2400 cc of clear yellow fluid. Technique: Informed consent was obtained. The risks of pain, bleeding,infection, lung collapse/pneumothorax , injury to adjacent structures,and adverse medication reactions were discussed with the patient. Thepatient's left hemithorax was scanned from the back, with the patient rowena sitting position. After the largest fluid pocket area was marked, theskin was prepped and draped in the usual sterile manner. The area wasanesthetized with 2% lidocaine, a 5 F one-step catheter was advancedinto the pleural space under ultrasound guidance. After completion ofdrainage, the catheter was removed. There was no evidence of immediatecomplication . Post procedure chest x-ray demonstrated no pneumothorax. IMPRESSION:Impression :Successful and uncomplicated ultrasound guided left thoracentesis.Electro nically Signed By: Dipak Lyons/ 17:38 CDTWorkstation Name: [id number] BODY FLUID CELL COUNT WITH DIFFERENTIAL 2023-04-11 14:13:51 Test Item Value Reference Range Interpretation Comme nts APPEARANCE FLUID (BEAKER) (test code = 510) Turbid Clear A COLOR FLUID (BEAKER) (test code = 511) Red Colorless, Stra w A RBC FLUID (BEAKER) (test code = 513) 81152 /cu mm <=1 H TOTAL NUCLEATED CELL COUNT (BEAKER) (test code = 479 /cu mm <=5 H 1442) LINING CELLS/OTHERS DIFF'D (BEAKER) (test code = 0 1589) ADJUSTED WBC FLUID (BEAKER) (test code = 1691) 479 /cu mm <=5 H LINING CELLS/OTHERS, CALCULATED (BEAKER) (test code 0 /cu mm <= 1 = 1590) NEUTROPHILS FLUID (BEAKER) (test code = 1656) 8 % LYMPHS FLUID (BEAKER) (test code = 488) 64 % MONO/MACROPHAGE FLUID (BEAKER) (test code = 489) 28 % EOSINOPHILS FLUID (BEAKER) (test code = 491) 0 % BASO FLUID (BEAKER) (test code = 492) 0 % CONTAINER BODY FLUID (BEAKER) (test code = 2873) Sterile Vial XR CHEST 1 VIEW PORTABLE / [id number] 13:39:13 [facility] CENTERName: PATIENCE PAREDES EVER : 1965 Sex: FCLINICAL HISTORY: s/p thoracentesisTECHNIQUE: 1 view of the chestCOMPARISON: 04/08/2023IMPRESSION:No pneumothorax. Trace left pleural effusion again seen. No infiltrates.No cardiomegaly.Electronically SignedBy: Antwan Flor04/11/2023 13:41 CDTWorkstation Name: [id number] DEHYDROGENASE (LDH), BODY FLUID 2023-04-09 16:42:15 Test Item Value Reference Range Interpretation Comments LACTATE DEHYDROGENASE FLUID See scanned report. (BEAKER) (test code = 634) Absence of reference range indicates that normals have not been defined.Assay performance has not been validated for this type of specimen.PROTEIN, BODY FLUID 2023-04-09 16:41:59 Test Item Value Reference Range Interpretation Comments PROTEIN FLUID (BEAKER) (test See scanned report. code = 579) Absence of reference range indicates that normals have not been defined.Assay performance has not been validated for this type of specimen.BLOOD CULTURE 2023-04-09 13:00:23 Test Item Value Reference Range Interpretation Comments CULTURE (BEAKER) (test No growth in 5 days code = 1095) The specimen volume collected for this blood culture was below the optimum (10 mL per bottle or 20 mL total). Use of lower volumes may adversely affect recovery and/or detection times of some organisms.BLOOD [id number] 13:00:23 Test Item Value Reference Range Interpretation Comments CULTURE (BEAKER) (test No growth in 5 days code = 1095) The specimen volume collected for this blood culture was below the optimum (10 mL per bottle or 20 mL total). Use of lower volumes may adversely affect recovery and/or detection times of some organisms.BODY FLUID CELL COUNT WITH [id number] 19:24:03 Test Item Value Reference Range Interpretation Comments APPEARANCE FLUID (BEAKER) Slightly Bloody Clear A (test code = 510) COLOR FLUID (BEAKER) (test Straw Colorless, Straw code = 511) RBC FLUID (BEAKER) (test 73289 /cu mm <=1 H code = 513) TOTAL NUCLEATED CELL COUNT 467 /cu mm <=5 H (BEAKER) (test code = 1442) LINING CELLS/OTHERS DIFF'D 1 (BEAKER) (test code = 1589) ADJUSTED WBC FLUID (BEAKER) 462 /cu mm <=5 H (test code = 1691) LINING CELLS/OTHERS, 5 /cu mm <=1 H CALCULATED (BEAKER) (test code = 1590) NEUTROPHILS FLUID (BEAKER) 2 % (test code = 1656) LYMPHS FLUID (BEAKER) (test 93 % code = 488) MONO/MACROPHAGE FLUID 4 % (BEAKER) (test code = 489) EOSINOPHILS FLUID (BEAKER) 1 % (test code = 491) BASO FLUID (BEAKER) (test 0 % code = 492) CONTAINER BODY FLUID Sterile Vial (BEAKER) (test code = 2873) [id number] 16:23:34 [facility] 1965 Sex: FUltrasound guided left thoracentesis.Clinical History: Left pleural effusion.Modality: Ultrasound.Sedation: None. Jeeper Operator: Ellis Lylesistant: None. Estimated Blood Loss: 1ccSpecimen: 2400 cc of serosanguineous fluid. Technique: Informed consent was obtained. The risks of pain, bleeding,infection, lung collapse/pneumothorax, injury to adjacent structures,and adverse medication reactions were discussed with the patient. Thepatient's left hemithorax was scanned from the back, with the patient rowena sitting position. After the largest fluid pocket area was marked, theskin was prepped anddraped in the usual sterile manner. The area wasanesthetized with 2% lidocaine, a 5 F one-step catheter was advancedinto the pleural space under ultrasound guidance. After completion ofdrainage, the catheter was removed. There was no evidence of immediatecomplication. Post procedure chest x-ray demonstrated no pneumothorax. IMPRESSION:Impression:Successful and uncomplicated ultrasound guided left thor acentesis.Electronically Signed By: Deandre 04/08/2023 16:25 CDTWorkstation Name: [id number] CHEST 1 VIEW PORTABLE / [id number] 15:30:23 [facility]ENTERName[facility] : 1965 Sex: FTECHNIQUE: Frontal view of the chest.INDICATION: s/p thoracentesis.COMPARISON: 04/04/2023.FINDINGS:LINES/TUBES: None.HEART AND MEDIASTINUM: Cardiomediastinal contour is stable. LUNGS: Mild left basilar atelectatic change. No consolidation orpulmonary edema.PLEURA: Small left pleural effusion. No pneumothorax.SOFT TISSUES AND BONES: Unremarkable.IMPRESSION:Small left pleural effusion with left basilar atelectatic change. Nopneumothorax.Electronically Signed By: Adilia Polanco04/08/2023 15:32 CDTWorkstation Name: [id number] CULTURE + SMEAR 2023-04-06 08:24:23 Test Item Value Reference Range Interpretation Comments CULTURE (BEAKER) (test No fungus isolated in code = 1095) 28 days FUNGUS SMEAR (BEAKER) No fungi seen (test code = 1406) CT ABDOMEN/PELVIS WITHOUT IV [id number] 16:41:18 [facility] CENTERName: [facility]ENCE PAREDES : 1965 Sex: FABDOMINAL AND PELVIS CT DATED 04/04/2023OMPARISON: December 30LINICAL INFORMATION: Epigastric painTECHNIQUE: Axial images of the abdomen and pelvis were obtained fromdiaphragm to the pubic symphysis without GI or intravenous contrast. This exam was performed according to our departmental dose-optimizationprogram, which includes automated exposure control, adjustment of the mAand/or kV according to patient size and/or use of interactivereconstruction technique.COMMENT: There is trace right pleural effusion and small to moderateleft pleural effusion. Subsegmental atelectasis is seen in both lowerlobes.Liver is cirrhotic in appearance with irregular margins. Liver issuboptimally evaluated without intra venous contrast. Spleen is enlargedmeasuring approximately 15.5 x 7.9 x 13.3 cm.Gallbladder is contracted. Sludge is seen in the gallbladder. Nogallstone or biliary dilatation is noted. Pancreas and adrenals are unremarkable. Both kidneys are normal in size. No hydronephrosis, hydroureter,urolithiasisis seen.The small and large bowel are unremarkable. Appendix is not visualized.A small amount of ascites is seen in the abdomen pelvis.Uterus and ovaries are unremarkable. The urinary bladder is contracted.IMPRESSION:1. Cirrhosis with splenomegaly.2. Small ascites and bilateral pleural effusion.3. No focal abnormality in the abdomen or pelvis to account forpatient's abdominal pain.Electronically Signed By: Erika Kan04/04/2023 16:43 CDTWorkstation Name: [id number] 14:20:01 [facility] : 1965 Sex: FUltrasound guided left thoracentesis.Clinical History: Left pleural effusion.Modality: Ultrasound.Sedation: None. Jeeper Operator: Danuta Youngt: None. Estimated Blood Loss: 1ccSpecimen: 2350 cc of cloudy serosanguineous fluid. Technique: Informed [...] pneumothorax. IMPRESSION:Impression:Successful and uncomplicated ultrasound guided left thoracentesis.Electronically Signed By: Mikael Darnell04/04/2023 14:22 CDTWorkstation Name: [id number] METABOLIC [id number] 12:43:52 Test Item Value Reference Range Interpretation Comments TOTAL PROTEIN 5.9 gm/dL 6.0-8.3 L (BEAKER) (test code = 770) ALBUMIN (BEAKER) 2.4 g/dL 3.5-5.0 L (test code = 1145) ALKALINE 77 U/L 40-150 PHOSPHATASE (BEAKER) (test code = 346) BILIRUBIN TOTAL 1.8 mg/dL 0.2-1.2 H (BEAKER) (test code = 377) SODIUM (BEAKER) 135 meq/L 136-145 L (test code = 381) POTASSIUM (BEAKER) 3.9 meq/L 3.5-5.1 (test code = 379) CHLORIDE (BEAKER) 108 meq/L 98-107 H (test code = 382) CO2 (BEAKER) (test 19 meq/L 22-29 L code = 355) BLOOD UREA 26 mg/dL 7-21 H NITROGEN (BEAKER) (test code = 354) CREATININE 0.91 mg/dL 0.57-1.25 (BEAKER) (test code = 358) GLUCOSE RANDOM 78 mg/dL 70-105 (BEAKER) (test code = 652) CALCIUM (BEAKER) 7.7 mg/dL 8.4-10.2 L (test code = 697) AST (SGOT) 52 U/L 5-34 H (BEAKER) (test code = [...] not appl icable for dialysis patien ts Clinical Trials Manager ID - JSSpecimen slightly ictericLACTIC ACID, [id number] 12:36:49 Test Item Value Reference Range Interpretation Comments LACTATE BLOOD VENOUS (2) (BEAKER) 1.61 mmol/L 0.50-2.00 (test code = 2872) Clinical Trials Manager ID - JSCBC W/PLT COUNT & AUTO [id number] 11:56:33 Test Item Value Reference Range Interpretation Comments WHITE BLOOD CELL COUNT (BEAKER) 7.6 K/ L 3.5-10.5 (test code = 775) RED BLOOD CELL COUNT (BEAKER) 3.43 M/ L 3.93-5.22 L (test code = 761) HEMOGLOBIN (BEAKER) (test code = 12.1 GM/DL 11.2-15.7 410) HEMATOCRIT (BEAKER) (test code = 36.7 % 34.1-44.9 411) MEAN CORPUSCULAR VOLUME (BEAKER) 107 fL 79-95 H (test code = 753) MEAN CORPUSCULAR HEMOGLOBIN 35.3 pg 25.6-32.2 H (BEAKER) (test code = 751) MEAN CORPUSCULAR HEMOGLOBIN CONC 33.0 GM/DL 32.2-35.5 (BEAKER) (test code = 752) RED CELL DISTRIBUTION WIDTH 15.8 % 11.7-14.4 H (BEAKER) (test code = 412) PLATELET COUNT (BEAKER) (test code 83 K/CU MM 150-450 L = 756) MEAN PLATELET VOLUME (BEAKER) 11.2 fL 9.4-12.3 (test code = 754) NUCLEATED [...] (test code = 437) NEUTROPHILS ABSOLUTE COUNT 4.49 K/ L 1.56-6.13 (BEAKER) (test code = 670) LYMPHOCYTES ABSOLUTE COUNT 1.43 K/ L 1.18-3.74 (BEAKER) (test code = 414) MONOCYTES ABSOLUTE COUNT (BEAKER) 0.84 K/ L 0.24-0.36 H (test code = 415) EOSINOPHILS ABSOLUTE COUNT 0.73 K/ L 0.04-0.36 H (BEAKER) (test code = 416) BASOPHILS ABSOLUTE COUNT (BEAKER) 0.05 K/ L 0.01-0.08 (test code = 417) IMMATURE GRANULOCYTES-RELATIVE 0.40 % 0.00-1.00 PERCENT (BEAKER) (test code = 2801) LACTIC ACID, [id number] 11:56:21 Test Item Value Reference Range Interpretation Comments LACTATE BLOOD VENOUS 2.81 mmol/L 0.50-2.00 H Specime n markedly (2) (BEAKER) (test hemolyzed code = 2872) Clinical Trials Manager ID - ADMINXR CHEST 2 [id number] 11:54:24 [facility] : 1965 Sex: FEXAMINATION: XR CHEST 2 VIEWS INDICATION: chillsCOMPARISON: CXR of 03/05/2023 FINDINGS:LINES/TUBES: EKG leads overlie the chest. LUNGS: The lungs are well inflated. No focal airspace consolidation.PLEURA: Nopleural effusion or pneumothorax.MEDIASTINUM: The cardiomediastinal silhouette appears normal in size andshape. Atherosclerotic calcifications of the thoracic aorta.BONES/SOFT TISSUES: No acute osseousinjury.ABDOMEN: No free air under the diaphragm.IMPRESSION:No focal pneumonia or airspace edema.Electronically Signed By: Deandre Retana04/04/2023 11:56 CDTWorkstation Name: [id number] 11:53:15 Test Item Value Reference Range Interpretation Comments PARTIAL THROMBOPLASTIN TIME 29.2 seconds 22.5-36.0 (BEAKER) (test code = 760) PROTHROMBIN TIME/[id number] 11:52:36 Test Item Value Reference Range Interpretation Comments PROTIME (BEAKER) (test code = 17.4 seconds 11.9-14.2 H 759) INR (BEAKER) (test code = 370) 1.52 <=5.90 RECOMMENDED COUMADIN/WARFARIN INR THERAPY RANGESSTANDARD DOSE: 2.0 - 3.0 Includes: PROPHYLAXIS for venous thrombosis, systemic embolization; TREATMENT for venous thrombosis and/or pulmonary embolus.HIGH RISK: Target INR is 2.5-3.5 for patients with mechanical heart valves.URINALYSIS W/ REFLEX URINE CULTURE 2023-04-04 11:38:22 Test Item Value Reference Range Interpretation Comments COLOR (BEAKER) (test code = 470) [place] CLARITY (BEAKER) (test code = 469) Clear SPECIFIC GRAVITY UA (BEAKER) (test 1.023 1.001-1.035 code = 468) PH UA (BEAKER) (test code = 467) 5.5 5.0-8.0 PROTEIN UA (BEAKER) (test code = Negative Negative 464) GLUCOSE UA (BEAKER) (test code = Negative Negative 365) KETONES UA (BEAKER) (test code = Negative Negative 371) BILIRUBIN UA (BEAKER) (test code = Negative Negative 462) BLOOD UA (BEAKER) (test code = 461) Large Negative A NITRITE UA (BEAKER) (test code = Positive Negative A 465) LEUKOCYTE ESTERASE UA (BEAKER) (test Trace Negative A code = 466) UROBILINOGEN UA (BEAKER) (test code 0.2 0.2-1.0 = 463) RBC UA (BEAKER) (test code = 519) 13 /HPF WBC UA (BEAKER) (test code = 520) 8 /HPF BACTERIA (BEAKER) (test code = 517) Many MUCUS (BEAKER) (test code = 1574) Few SQUAMOUS EPITHELIAL (BEAKER) (test 2 /HPF code = 516) HYALINE CASTS (BEAKER) (test code = 4 /LPF 514) SOURCE(BEAKER) (test code = 2795) Clinical Trials Manager ID - [auto]Clinical Trials Manager ID - techBODY FLUID CELL COUNT WITH DIFFERENTIAL 2023-04-04 11:13:45 Test Item Value Reference Range Interpretation Comments APPEARANCE FLUID (BEAKER) (test Bloody Clear A code = 510) COLOR FLUID (BEAKER) (test code [place] Colorless, Straw A = 511) RBC FLUID (BEAKER) (test code = 66935 /cu mm <=1 H 513) TOTAL NUCLEATED CELL COUNT 955 /cu mm <=5 H (BEAKER) (test code = 1442) LINING CELLS/OTHERS DIFF'D 0 (BEAKER) (test code = 1589) ADJUSTED WBC FLUID (BEAKER) 955 /cu mm <=5 H (test code = 1691) LINING CELLS/OTHERS, CALCULATED 0 /cu mm <=1 (BEAKER) (test code = 1590) NEUTROPHILS FLUID (BEAKER) 0 % (test code = 1656) LYMPHS FLUID (BEAKER) (test 60 % code = 488) MONO/MACROPHAGE FLUID (BEAKER) 40 % (test code = 489) EOSINOPHILS FLUID (BEAKER) 0 % (test code = 491) BASO FLUID (BEAKER) (test code 0 % = 492) CONTAINER BODY FLUID (BEAKER) EDTA Tube (test code = 2873) XR CHEST 1 VIEW PORTABLE / [id number] 09:58:29 [facility] : 1965 Sex: FXR CHEST 1 VIEW PORTABLE / BEDSIDECLINICAL HISTORY: s/p left thora TECHNIQUE: Single view of the chest.COMPARISON: March 28, 2023IMPRESSION:Minimal left lung base opacities likely atelectasis or trace residualpleural effusion status post left thoracentesis. No pneumothorax. Thecardiomediastinal silhouette is magnified by technique. The osseousstructures appear stable.Electronically Signed By: Wilber Hylton04/04/2023 10:00 CDTWorkstation Name: [id number] CULTURE + [id number] 08:29:42 Test Item Value Reference Range Interpretation Comments CULTURE (BEAKER) (test No fungus isolated in code = 1095) 28 days FUNGUS SMEAR (BEAKER) No fungal elements seen (test code = 1406) US [id number] 09:24:25 [facility] : 1965 Sex: FUltrasound guided left-sided thoracentesis.Clinical History: Left pleural effusion.Modality: Ultrasound.Sedation: None. Jeeper Operator: Hannah Munozt: None. Estimated Blood Loss: 1ccSpecimen: 2400 cc of serosanguinous fluid. Technique: Informed consent was obtained. The risks of pain, bleeding,infection, lung collapse/pneumothorax, injury to adjacent structures,and adverse medication reactionswere discussed with the patient. Thepatient's left hemithorax was scanned from the back, with the patient rowena sitting position. After the largest fluid pocket area was marked, theskin was prepped and draped in the usual sterile manner. The area wasanesthetized with 2% lidocaine, a 4F one-step catheterwas advanced intothe pleural space under ultrasound guidance. After completion ofdrainage, the catheter was removed. There was no evidence of immediatecomplication. Post procedure chest x-ray demonstrated no pneumothorax. IMPRESSION:Impression:Successful and uncomplicated ultrasound guided left sided thoracentesis. Electronically Signed By: Lj Stevenson MD04/03/2023 09:26 CDTWorkstation Name: [id number] FLUID CELL COUNT WITH [id number] 17:23:22 Test Item Value Reference Range Interpretation Comments APPEARANCE FLUID (BEAKER) (test Cloudy Clear A code = 510) COLOR FLUID (BEAKER) (test code [place] Colorless, Straw A = 511) RBC FLUID (BEAKER) (test code = 51861 /cu mm <=1 H 513) TOTAL NUCLEATED CELL COUNT 1240 /cu mm <=5 H (BEAKER) (test code = 1442) LINING CELLS/OTHERS DIFF'D 0 (BEAKER) (test code = 1589) ADJUSTED WBC FLUID (BEAKER) 1240 /cu mm <=5 H (test code = 1691) LINING CELLS/OTHERS, CALCULATED 0 /cu mm <=1 (BEAKER) (test code = 1590) NEUTROPHILS FLUID (BEAKER) 4 % (test code = 1656) LYMPHS FLUID (BEAKER) (test 69 % code = 488) MONO/MACROPHAGE FLUID (BEAKER) 27 % (test code = 489) EOSINOPHILS FLUID (BEAKER) 0 % (test code = 491) BASO FLUID (BEAKER) (test code 0 % = 492) CONTAINER BODY FLUID (BEAKER) EDTA Tube (test code = 2873) XR CHEST 1 VIEW PORTABLE / [id number] 15:03:35 [facility] : 1965 Sex: FTECHNIQUE: Frontal view of the chest.INDICATION: s/p left thoracentesis.COMPARISON: 03/28/2023.FINDINGS:LINES/TUBES: None.HEART AND MEDIASTINUM: Cardiomediastinal contour is within normallimits. LUNGS: The lungs are well inflated and clear. No consolidation orpulmonary edema.PLEURA: No pneumothorax. No significant pleural effusion.SOFT TISSUES AND BONES: Unremarkable.IMPRESSION:No acute cardiopulmonary process. No pneumothorax status post leftthoracentesis.Electronically Signed By: Adilia Polanco04/01/2023 15:05 CDTWorkstation Name: [id number] BRAIN WITHOUT IV [id number] 20:16:32 [facility] : 1965 Sex: FCT Head without contrastCLINICAL HISTORY: Mental status change, unknown cause TECHNIQUE: Contiguous axial CT images through the head without contrast.This exam was performed according to the departmental dose optimizationprogram which includes automated exposure control, adjustment of the mAand/or kV according to the patient size, and/or use of an iterativereconstruction technique.COMPARISON: 02/26/2023FINDINGS:There is no CT evidence of acute infarct or intracranial hemorrhage.There is mild sulcal prominence without hydrocephalus, midline shift, orapparent mass effect. There is no significant white matter disease.There are no extra-axial fluid collections. The skull is intact. Thevisualized paranasal s inuses are well-aerated. IMPRESSION:No CT evidence of acute infarct, hemorrhage, or hydrocephalus.Electronically Signed By: Antwan Flor03/30/2023 20:18 CDTWorkstation Name: [id number] METABOLIC [id number] 18:35:39 Test Item Value Reference Range Interpretation Comments SODIUM (BEAKER) 136 meq/L 136-145 (test code = 381) POTASSIUM 5.1 meq/L 3.5-5.1 Specimen slight ly (BEAKER) (test hemolyzed code = 379) CHLORIDE (BEAKER) 110 meq/L 98-107 H (test code = 382) CO2 (BEAKER) 18 meq/L 22-29 L (test code = 355) BLOOD UREA 25 mg/dL 7-21 H NITROGEN (BEAKER) (test code = 354) CREATININE 0.99 mg/dL 0.57-1.25 Specimen slight ly (BEAKER) (test hemolyzed code = 358) GLUCOSE RANDOM 79 mg/dL 70-105 (BEAKER) (test code = 652) CALCIUM (BEAKER) 8.6 mg/dL 8.4-10.2 (test code = 697) EGFR (BEAKER) 66 Interpretatio n of eGFR (test code = [...] not appl icable for dialysis patien ts Clinical Trials Manager ID - BSSpecimen slightly ictericHEPATIC FUNCTION [id number] 18:35:39 Test Item Value Reference Range Interpretation Comments TOTAL PROTEIN (BEAKER) 6.8 gm/dL 6.0-8.3 Speci men slightly (test code = 770) hemolyzed ALBUMIN (BEAKER) (test 2.8 g/dL 3.5-5.0 L Speci men slightly code = 1145) hemolyzed BILIRUBIN TOTAL 2.4 mg/dL 0.2-1.2 H Specimen sli ghtly (BEAKER) (test code = hemoly zed 377) BILIRUBIN DIRECT 0.8 mg/dL 0.1-0.5 H Specimen sl ightly (BEAKER) (test code = hemoly zed 706) ALKALINE PHOSPHATASE 77 U/L 40-150 (BEAKER) (test code = 346) AST (SGOT) (BEAKER) 63 U/L 5-34 H Specimen slightly (test code = 353) hemolyzed ALT (SGPT) (BEAKER) 41 U/L 6-55 Specimen slightly (test code = 347) hemolyzed Clinical Trials Manager ID - BSSpecimen slightly ictericPT/[id number] 18:34:42 Test Item Value Reference Range Interpretation Comments PROTIME (BEAKER) (test code = 18.5 seconds 11.9-14.2 H 759) INR (BEAKER) (test code = 370) 1.65 <=5.90 PARTIAL THROMBOPLASTIN TIME 28.8 seconds 22.5-36.0 (BEAKER) (test code = 760) RECOMMENDED COUMADIN/WARFARIN INR THERAPY RANGESSTANDARD DOSE: 2.0 - 3.0 Includes: PROPHYLAXIS for venous thrombosis, systemic embolization; TREATMENT for venous thrombosis and/or pulmonary embolus.HIGH RISK: Target INR is 2.5-3.5 for patients with mechanical heart valves.CBC W/PLT COUNT & AUTO [id number] 18:18:57 Test Item Value Reference Range Interpretation Comments WHITE BLOOD CELL COUNT (BEAKER) 5.8 K/ L 3.5-10.5 (test code = 775) RED BLOOD CELL COUNT (BEAKER) 3.07 M/ L 3.93-5.22 L (test code = 761) HEMOGLOBIN (BEAKER) (test code = 11.0 GM/DL 11.2-15.7 L 410) HEMATOCRIT (BEAKER) (test code = 33.3 % 34.1-44.9 L 411) MEAN CORPUSCULAR VOLUME (BEAKER) 109 fL 79-95 H (test code = 753) MEAN CORPUSCULAR HEMOGLOBIN 35.8 pg 25.6-32.2 H (BEAKER) (test code = 751) MEAN CORPUSCULAR HEMOGLOBIN CONC 33.0 GM/DL 32.2-35.5 (BEAKER) (test code = 752) RED CELL DISTRIBUTION WIDTH 16.0 % 11.7-14.4 H (BEAKER) (test code = 412) PLATELET COUNT (BEAKER) (test code 58 K/CU MM 150-450 L = 756) MEAN PLATELET VOLUME (BEAKER) 11.0 fL 9.4-12.3 (test code = 754) NUCLEATED RED BLOOD CELLS (BEAKER) 0 /100 WBC 0-0 (test code = 413) NEUTROPHILS RELATIVE PERCENT 57 % (BEAKER) (test code = 429) LYMPHOCYTES RELATIVE PERCENT 20 % (BEAKER) (test code = 430) MONOCYTES RELATIVE PERCENT 14 % (BEAKER) (test code = 431) EOSINOPHILS RELATIVE PERCENT 7 % (BEAKER) (test code = 432) BASOPHILS RELATIVE PERCENT 1 % (BEAKER) (test code = 437) NEUTROPHILS ABSOLUTE COUNT 3.26 K/ L 1.56-6.13 (BEAKER) (test code = 670) LYMPHOCYTES ABSOLUTE COUNT 1.17 K/ L 1.18-3.74 L (BEAKER) (test code = 414) MONOCYTES ABSOLUTE COUNT (BEAKER) 0.83 K/ L 0.24-0.36 H (test code = 415) EOSINOPHILS ABSOLUTE COUNT 0.42 K/ L 0.04-0.36 H (BEAKER) (test code = 416) BASOPHILS ABSOLUTE COUNT (BEAKER) 0.04 K/ L 0.01-0.08 (test code = 417) IMMATURE GRANULOCYTES-RELATIVE 0.70 % 0.00-1.00 PERCENT (BEAKER) (test code = 2801) US [id number] 15:05:38 [facility] : 1965 Sex: FUltrasound guided left thoracentesis.Clinical History: Left pleural effusion.Modality: Ultrasound.Sedation: None. Jeeper Operator: Hannah Lylest: None. Estimated Blood Loss: 1ccSpecimen: 1400 cc of serosanguineous fluid. Technique: Informed consent was obtained. The risks of pain, bleeding,infection, lung collapse/pneumothorax, injury to adjacent structures,and adverse medication reactions were discussed with the patient. Thepatient's left hemithorax was scanned from the back, with the patient rowena sitting position. After the largest fluid pocket area was marked, theskin was prepped and draped in the usual sterile manner. The area wasanesthetized with 2% lidocaine, a 5 F one-step catheter was advancedinto the pleural space under ultrasound guidance. After completion ofdrainage, the catheter was removed. There was no evidence of immediatecomplication. Post procedure chest x-ray demonstrated no pneumothorax. IMPRESSION:Impression:Successful and uncomplicated ultrasound guided left thora centesis.Electronically Signed By: Lee Diaz03/30/2023 15:07 CDTWorkstation Name: [id number] 13:01:27 Test Item Value Reference Range Interpretation Comments POC-GLUCOSE METER 91 mg/dL 70-110 : TESTED A T [facility] 6720 (DANNY) (test code = VERONICA [place], 1538) [address]: Clinical Trials Manager/Techni shavon ID = [id number] for Tamika Briggs [id number] 08:35:26 [facility] : 1965 Sex: FUltrasound guided left thoracentesis.Clinical History: Left pleural effusion.Modality: Ultrasound.Sedation: None. Jeeper Operator: Hannah Lylest: None. Estimated Blood Loss: 1ccSpecimen: 1700 cc of clear yellow fluid. Technique: Informed consent was obtained. The risks of pain, bleeding,infection, lung collapse/pneumothorax, injury to adjacent structures,and adverse medication reactions were discussed with the patient. Thepatient's left hemithorax was scanned from the back, with the patient rowena sitting position. After the largest fluid pocket area was marked, theskin was prepped and draped in the usual sterile manner. The area wasanesthetized with 2% lidocaine, a 5 F one-step catheterwas advancedinto the pleural space under ultrasound guidance. After completion ofdrainage, the catheter was removed. There was no evidence of immediatecomplication. Post procedure chest x-ray demonstrated no pneumothorax. IMPRESSION:Impression:Successful and uncomplicated ultrasound guided left thoracentesis.Electronically Signed By: Lj Stevenson MD03/29/2023 08:37 CDTWorkstation Name: [id number] FLUID CELL COUNT WITH [id number] 12:50:33 Test Item Value Reference Range Interpretation Comments APPEARANCE FLUID (BEAKER) (test Bloody Clear A code = 510) COLOR FLUID (BEAKER) (test code [place] Colorless, Straw A = 511) RBC FLUID (BEAKER) (test code = 35033 /cu mm <=1 H 513) TOTAL NUCLEATED CELL COUNT 1502 /cu mm <=5 H (BEAKER) (test code = 1442) LINING CELLS/OTHERS DIFF'D 0 (BEAKER) (test code = 1589) ADJUSTED WBC FLUID (BEAKER) 1502 /cu mm <=5 H (test code = 1691) LINING CELLS/OTHERS, CALCULATED 0 /cu mm <=1 (BEAKER) (test code = 1590) NEUTROPHILS FLUID (BEAKER) 9 % (test code = 1656) LYMPHS FLUID (BEAKER) (test 32 % code = 488) MONO/MACROPHAGE FLUID (BEAKER) 55 % (test code = 489) EOSINOPHILS FLUID (BEAKER) 3 % (test code = 491) BASO FLUID (BEAKER) (test code 1 % = 492) CONTAINER BODY FLUID (BEAKER) EDTA Tube (test code = 2873) XR CHEST 1 VIEW PORTABLE / [id number] 10:49:57 [facility] : 1965 Sex: FINDICATION: s/p thoracentesisCOMPARISON: 03/25/2023TECHNIQUE: Single frontal view of the chest.FINDINGS: Lungs and pleura: No pneumothorax status post thoracentesis. Noeffusion.Heart and mediastinum: Normal heart size. Unremarkable mediastinalcontours.Osseous structures: No acute abnormality.Other: None.IMPR ESSION:No pneumothorax status post thoracentesis. No effusion.Electronically Signed By: Estrella Walters03/28/2023 10:51 CDTWorkstation Name: [id number] FLUID CELL COUNT WITH [id number] 18:08:53 Test Item Value Reference Range Interpretation Comments APPEARANCE FLUID (BEAKER) Moderately Bloody Clear A (test code = 510) COLOR FLUID (BEAKER) (test Yellow Colorless, Straw A code = 511) RBC FLUID (BEAKER) (test 43956 /cu mm <=1 H code = 513) TOTAL NUCLEATED CELL COUNT 2134 /cu mm <=5 H (BEAKER) (test code = 1442) LINING CELLS/OTHERS DIFF'D 7 (BEAKER) (test code = 1589) ADJUSTED WBC FLUID 1994 /cu mm <=5 H (BEAKER) (test code = 1691) LINING CELLS/OTHERS, 140 /cu mm <=1 H CALCULATED (BEAKER) (test code = 1590) NEUTROPHILS FLUID (BEAKER) 3 % (test code = 1656) LYMPHS FLUID (BEAKER) 68 % (test code = 488) MONO/MACROPHAGE FLUID 17 % (BEAKER) (test code = 489) EOSINOPHILS FLUID (BEAKER) 12 % (test code = 491) BASO FLUID (BEAKER) (test 0 % code = 492) CONTAINER BODY FLUID EDTA Tube (BEAKER) (test code = 2873) XR CHEST 1 VIEW PORTABLE / [id number] 15:24:56 [facility] EVER : 1965 Sex: FXR CHEST 1 VIEW PORTABLE / BEDSIDETECHNIQUE: Frontal view(s) of the chest.INDICATION: s/p thoracentesiss/p thoracentesisCOMPARISON: 03/21/2023FINDINGS/IMPRESSION:Lines/Tubes: NoneLungs/pleura: Low lung volumes. Mild interstitial airspace opacities,likely mild edema. No pleural effusion. No pneumothorax.Heart and Mediastinum: Unchanged.Soft Tissues and Bones: Unchanged.Electronically Signed By: Carolyn Block03/25/2023 15:26 CDTWorkstation Name: [id number] 19:00:19 Test Item Value Reference Range Interpretation Comments CULTURE (BEAKER) (test No growth in 5 days code = 1095) The specimen volume collected for this blood culture was below the optimum (10 mL per bottle or 20 mL total). Use of lower volumes may adversely affect recovery and/or detection times of some organisms.BLOOD [id number] 18:00:08 Test Item Value Reference Range Interpretation Comments CULTURE (BEAKER) (test No growth in 5 days code = 1095) The specimen volume collected for this blood culture was below the optimum (10 mL per bottle or 20 mL total). Use of lower volumes may adversely affect recovery and/or detection times of some organisms.FUNGUS CULTURE + SMEAR 2023-03-23 10:21:22 Test Item Value Reference Range Interpretation Comments CULTURE (BEAKER) (test No fungus isolated in code = 1095) 28 days FUNGUS SMEAR (BEAKER) No fungi seen (test code = 1406) US [id number] 07:48:55 [facility] : 1965 Sex: FUltrasound guided left thoracentesis.Clinical History: Left pleural effusion.Modality: Ultrasound.Sedation: None. Jeeper Operator: Hannah Lylest: None. Estimated Blood Loss: 1ccSpecimen: 1600 cc of lupe fluid. Technique: Informed consent was obtained. The risks of pain, bleeding,infection, lung collapse/pneumothorax, injury to adjacent structures,and adverse medication reactions were discussed with the patient. Thepatient's left hemithorax was scanned from the back, with the patient inasitting position. After the largest fluid pocket area was marked, theskin was prepped and draped in the usual sterile manner. The area wasanesthetized with 2% lidocaine, a 5 F one-step catheter was advancedinto the pleural space under ultrasound guidance. After completion ofdrainage, the catheter was removed. There was no evidence of immediatecomplication. Post procedure chest x-ray demonstrated no pneumothorax. IMPRESSION:Impression:Successful and uncomplicated ultrasound guided left thoracentesis.Electronically Signed By: Lj Stevenson MD03/22/2023 07:50 CDTWorkstation Name: [id number] CHEST 1 VIEW PORTABLE / [id number] 06:19:15[facility] : 1965 Sex: FXR CHEST 1 VIEW PORTABLE / BEDSIDEINDICATION: s/p thoracentesisCOMPARISON: 03/14/2023FINDINGS: Portable frontal view of the chest. IMPRESSION:Support Lines: None Lungs and pleura: No focal lung consolidation or large pleural effusion.No pneumothorax.Heart and mediastinum: Stable contours. Additional findings: Stable osseous structures.Electronically Signed By: Wilber Hylton03/22/2023 06:21 CDTWorkstation Name: [id number] LAB [id number] 09:58:21 Test Item Value Reference Range Interpretation Comments SCAN RESULT (test code = See scanned report. [id number]) HEPATIC FUNCTION [id number] 05:11:09 Test Item Value Reference Range Interpretation Comments TOTAL PROTEIN (BEAKER) (test code = 7.5 gm/dL 6.0-8.3 770) ALBUMIN (BEAKER) (test code = 1145) 3.7 g/dL 3.5-5.0 BILIRUBIN TOTAL (BEAKER) (test code 2.1 mg/dL 0.2-1.2 H = 377) BILIRUBIN DIRECT (BEAKER) (test 0.8 mg/dL 0.1-0.5 H code = 706) ALKALINE PHOSPHATASE (BEAKER) (test 93 U/L 40-150 code = 346) AST (SGOT) (BEAKER) (test code = 52 U/L 5-34 H 353) ALT (SGPT) (BEAKER) (test code = 29 U/L 6-55 347) Clinical Trials Manager ID - EOOSpecimen slightly ictericBASIC METABOLIC [id number] 05:11:08 Test Item Value Reference Range Interpretation Comments SODIUM (BEAKER) 136 meq/L 136-145 (test code = 381) POTASSIUM 4.6 meq/L 3.5-5.1 (BEAKER) (test code = 379) CHLORIDE (BEAKER) 111 meq/L 98-107 H (test code = 382) CO2 (BEAKER) 18 meq/L 22-29 L (test code = 355) BLOOD UREA 14 mg/dL 7-21 NITROGEN (BEAKER) (test code = 354) CREATININE 1.04 mg/dL 0.57-1.25 (BEAKER) (test code = 358) GLUCOSE RANDOM 76 mg/dL 70-105 (BEAKER) (test code = 652) CALCIUM (BEAKER) 9.4 mg/dL 8.4-10.2 (test code = 697) EGFR (BEAKER) 62 Interpretatio n of eGFR (test code = [...] not appl icable for dialysis patien ts Clinical Trials Manager ID - EOOSpecimen slightly ictericPROTHROMBIN TIME/[id number] 04:50:46 Test Item Value Reference Range Interpretation Comments PROTIME (BEAKER) (test code = 18.5 seconds 11.9-14.2 H 759) INR (BEAKER) (test code = 370) 1.58 <=5.90 RECOMMENDED COUMADIN/WARFARIN INR THERAPY RANGESSTANDARD DOSE: 2.0 - 3.0 Includes: PROPHYLAXIS for venous thrombosis, systemic embolization; TREATMENT for venous thrombosis and/or pulmonary embolus.HIGH RISK: Target INR is 2.5-3.5 for patients with mechanical heart valves.BASIC METABOLIC [id number] 10:32:34 Test Item Value Reference Range Interpretation Comments SODIUM (BEAKER) 136 meq/L 136-145 (test code = 381) POTASSIUM 4.8 meq/L 3.5-5.1 (BEAKER) (test code = 379) CHLORIDE (BEAKER) 112 meq/L 98-107 H (test code = 382) CO2 (BEAKER) 18 meq/L 22-29 L (test code = 355) BLOOD UREA 16 mg/dL 7-21 NITROGEN (BEAKER) (test code = 354) CREATININE 1.02 mg/dL 0.57-1.25 (BEAKER) (test code = 358) GLUCOSE RANDOM 78 mg/dL 70-105 (BEAKER) (test code = 652) CALCIUM (BEAKER) 8.2 mg/dL 8.4-10.2 L (test code = 697) EGFR (BEAKER) 64 Interpretatio n of eGFR (test code = [...] not appl icable for dialysis patien ts Clinical Trials Manager ID - MARCOSpecimen slightly ictericBASIC METABOLIC [id number] 06:02:43 Test Item Value Reference Range Interpretation Comments SODIUM (BEAKER) 135 meq/L 136-145 L (test code = 381) POTASSIUM 5.3 meq/L 3.5-5.1 H (BEAKER) (test code = 379) CHLORIDE (BEAKER) 111 meq/L 98-107 H (test code = 382) CO2 (BEAKER) 19 meq/L 22-29 L (test code = 355) BLOOD UREA 16 mg/dL 7-21 NITROGEN (BEAKER) (test code = 354) CREATININE 1.17 mg/dL 0.57-1.25 (BEAKER) (test code = 358) GLUCOSE RANDOM 73 mg/dL 70-105 (BEAKER) (test code = 652) CALCIUM (BEAKER) 8.4 mg/dL 8.4-10.2 (test code = 697) EGFR (BEAKER) 54 Interpretatio n of eGFR (test code = [...] not appl icable for dialysis patien ts Clinical Trials Manager ID - MARCOSpecimen slightly ictericHEPATIC FUNCTION [id number] 06:02:43 Test Item Value Reference Range Interpretation Comments TOTAL PROTEIN (BEAKER) (test code = 6.4 gm/dL 6.0-8.3 770) ALBUMIN (BEAKER) (test code = 1145) 3.0 g/dL 3.5-5.0 L BILIRUBIN TOTAL (BEAKER) (test code 1.8 mg/dL 0.2-1.2 H = 377) BILIRUBIN DIRECT (BEAKER) (test 0.7 mg/dL 0.1-0.5 H code = 706) ALKALINE PHOSPHATASE (BEAKER) (test 70 U/L 40-150 code = 346) AST (SGOT) (BEAKER) (test code = 43 U/L 5-34 H 353) ALT (SGPT) (BEAKER) (test code = 25 U/L 6-55 347) Clinical Trials Manager ID - MARCOSpecimen slightly ictericPROTHROMBIN TIME/[id number] 05:41:15 Test Item Value Reference Range Interpretation Comments PROTIME (BEAKER) (test code = 19.4 seconds 11.9-14.2 H 759) INR (BEAKER) (test code = 370) 1.75 <=5.90 RECOMMENDED COUMADIN/WARFARIN INR THERAPY RANGESSTANDARD DOSE: 2.0 - 3.0 Includes: PROPHYLAXIS for venous thrombosis, systemic embolization; TREATMENT for venous thrombosis and/or pulmonary embolus.HIGH RISK: Target INR is 2.5-3.5 for patients with mechanical heart valves.URINALYSIS W/ [id number] 12:02:58 Test Item Value Reference Range Interpretation Comments COLOR (BEAKER) (test code Yellow = 470) CLARITY (BEAKER) (test Clear code = 469) SPECIFIC GRAVITY UA 1.020 1.001-1.035 (BEAKER) (test code = 468) PH UA (BEAKER) (test code 7.0 5.0-8.0 = 467) PROTEIN UA (BEAKER) (test Negative Negative code = 464) GLUCOSE UA (BEAKER) (test Negative Negative code = 365) KETONES UA (BEAKER) (test Negative Negative code = 371) BILIRUBIN UA (BEAKER) Negative Negative (test code = 462) BLOOD UA (BEAKER) (test Large Negative A code = 461) NITRITE UA (BEAKER) (test Negative Negative code = 465) LEUKOCYTE ESTERASE UA Trace Negative A (BEAKER) (test code = 466) UROBILINOGEN UA (BEAKER) 6 0.2-1.0 H (test code = 463) RBC UA (BEAKER) (test code 41 /HPF = 519) WBC UA (BEAKER) (test code 4 /HPF = 520) SQUAMOUS EPITHELIAL 3 /HPF (BEAKER) (test code = 516) YEAST (BEAKER) (test code Rare = 1585) SOURCE(BEAKER) (test code Urine, Clean Catch = 2795) Clinical Trials Manager ID - [auto]Clinical Trials Manager ID - techMRA HEAD WITHOUT IV [id number] 09:07:21[facility] : 1965 Sex: FMR BRAIN WITHOUT IV CONTRAST, MRA HEAD WITHOUT IV CONTRASTINDICATION: Stroke, follow upTECHNIQUE: Multiplanar, multisequence MR images of the brain. 3-D timeof flight MRA of the cranial circulation. 3D MIP angiographicpost-processing was performed. COMPARISON: NoneFINDINGS: MRI BRAIN: Brain parenchyma is normal in morphology. Midline structures arenormally developed. No restricted diffusion to suggest recent ischemicinsult. No abnormal susceptibility.Scattered T2/FLAIR hyperintense foci within the periventricular andsubcortical white matter are nonspecific, however, statisticallyrepresent chronic microvascular ischemic changes.No hydrocephalus.Orbits are within normal limits.No obstructive paranasal sinus disease.Additional findings: None.MRA BRAIN:Internal carotid arteries: Normal flow related enhancement withoutflow-limiting stenosisMiddle cerebral arteries: Normal flow related enhancement within thebilateral MCA M1-M2 segments Anterior cerebral arteries: Normal flow-related enhancement within thebilateral BITA A1-A2 segments without flow limiting stenosisBasilar system: Normal flow-related enhancement within the bilateral T7pbyxlwyb and the basilar artery Posterior cerebral arteries: Normal flow-related enhancement within thebilateral ACTIVITIES ASSISTANT P1-P2 segments Additional findings: None. IMPRESSION:No acute ischemia or parenchymal hemorrhage.No flow limiting stenosis in the major branch vessels of thecranialcirculation. Electronically Signed By: Estrella Walters03/19/2023 09:09 CDTWorkstation Name: [id number] BRAIN WITHOUT IV [id number] 09:07:21 [facility] : 1965 Sex: FMR BRAIN WITHOUT IV CONTRAST, MRA HEAD WITHOUT IV CONTRASTINDICATION: Stroke, follow upTECHNIQUE: Multiplanar, multisequence MR images of the brain. 3-D timeof flight MRA of the cranial circulation. 3D MIP angiographicpost-processing was performed. COMPARISON: NoneFINDINGS: MRI BRAIN: Brain parenchyma is normal in morphology. Midline structures arenormally developed. No restricted diffusion to suggest recent ischemicinsult. No abnormal susceptibility.Scattered T2/FLAIR hyperintense foci within the periventricular andsubcortical white matter are nonspecific, however, statisticallyrepresent chronic microvascular ischemic changes.No hydrocephalus.Orbits are within normal limits.No obstructive paranasal sinus disease.Additional findings: None.MRA BRAIN:Internal carotid arteries: Normal flow related enhancement withoutflow-limiting stenosisMiddle cerebral arteries: Normal flow related enhancement within thebilateral MCA M1-M2 segments Anterior cerebral arteries: Normal flow-related enhancement within thebilateral BITA A1-A2 segments without flow limiting stenosisBasilar system: Normal flow-related enhancement within the bilateral W0pdnmsetg and the basilar artery Posterior cerebral arteries: Normal flow-related enhancement within thebilateral ACTIVITIES ASSISTANT P1-P2 segments Additional findings: None. IMPRESSION:No acute ischemia or parenchymal hemorrhage.No flow limiting stenosis in the major branch vessels of thecranialcirculation. Electronically Signed By: Estrella Walters03/19/2023 09:09 CDTWorkstation Name: [id number] 08:38:22[facility] EVER : 1965 Sex: FRight Upper Quadrant Ultrasound with DopplerHistory: CirrhosisComparison: CT abdomen and pelvis performedon 12/30/2022Findings:Study is obtained utilizing conventional grayscale imaging as well ascolor flowwith spectral analysis.Liver appears cirrhotic. No definite hepatic mass. No intrahepaticbiliary dilation is seen. The main portal vein measures 15 mm incaliber. Expected hepatopedal flow is seen within the central portalveins. Central hepatic arteries and veins appear patent with expectedwaveforms. Moderate gallbladder sludge. No gallbladder wall thickeningor pericholecystic fluid is visualized. Nosonographic Muniz's sign. Common bile duct measures 7mm. Pancreas not well seen due to overlyingbowel gas. Right kidney demonstrates no hydronephrosis, shadowingcalculus, or mass lesion. Right kidney measures 9.6 x 5.3 x 5.7cm.Small volume ascites is noted within the abdomen.IMPRESSION:Impression:1. Cirrhosis. No sonographically apparent liver mass. No central portalvenous thrombus is apparent.2. Small volume ascites.3. Moderate gallbladder sludge. No definitive sonographic findings ofacute cholecystitis.Electronically Signed By: Aravind Neal MD03/19/2023 08:40 CDTWorkstation Name: [id number] ABDOMEN [id number] 08:38:22 [facility] BISI PATIENCELEIDY CURTIS : 1965 Sex: FRight Upper Quadrant Ultrasound with DopplerHistory: CirrhosisComparison: CT abdomen and pelvis performedon 12/30/2022Findings:Study is obtained utilizing conventional grayscale imaging as well ascolor flowwith spectral analysis.Liver appears cirrhotic. No definite hepatic mass. No intrahepaticbiliary dilation is seen. The main portal vein measures 15 mm incaliber. Expected hepatopedal flow is seen within the central portalveins. Central hepatic arteries and veins appear patent with expectedwaveforms. Moderate gallbladder sludge. No gallbladder wall thickeningor pericholecystic fluid is visualized. No sonographic Muniz's sign. Common bile duct measures 7mm. Pancreas not well seen due to overlyingbowel gas. Right kidney demonstrates no hydronephrosis, shadowingcalculus, or mass lesion. Right kidney measures 9.6 x 5.3 x 5.7cm.Small volume ascites is noted within the abdomen.IMPRESSION:Impression:1. Cirrhosis. No sonographically apparent liver mass. No central portalvenous thrombus is apparent.2. Small volume ascites.3. Moderate gallbladder sludge. No definitive sonographic findings ofacute cholecystitis.Electronically Signed By: Aravind Neal MD03/19/2023 08:40 CDTWorkstation Name: [id number] W/PLT COUNT & AUTO DIFFERENTIAL 2023-03-19 07:44:16 Test Item Value Reference Range Interpretation Comments WHITE BLOOD CELL COUNT (BEAKER) 5.2 K/ L 3.5-10.5 (test code = 775) RED BLOOD CELL COUNT (BEAKER) 3.27 M/ L 3.93-5.22 L (test code = 761) HEMOGLOBIN (BEAKER) (test code = 11.6 GM/DL 11.2-15.7 410) HEMATOCRIT (BEAKER) (test code = 34.1 % 34.1-44.9 411) MEAN CORPUSCULAR VOLUME (BEAKER) 104 fL 79-95 H (test code = 753) MEAN CORPUSCULAR HEMOGLOBIN 35.5 pg 25.6-32.2 H (BEAKER) (test code = 751) MEAN CORPUSCULAR HEMOGLOBIN CONC 34.0 GM/DL 32.2-35.5 (BEAKER) (test code = 752) RED CELL DISTRIBUTION WIDTH 14.9 % 11.7-14.4 H (BEAKER) (test code = 412) PLATELET COUNT (BEAKER) (test code 85 K/CU MM 150-450 L = 756) MEAN PLATELET VOLUME (BEAKER) 11.1 fL 9.4-12.3 (test code = 754) NUCLEATED RED BLOOD CELLS (BEAKER) 0 /100 WBC 0-0 (test code = 413) NEUTROPHILS RELATIVE PERCENT 48 % (BEAKER) (test code = 429) LYMPHOCYTES RELATIVE PERCENT 25 % (BEAKER) (test code = 430) MONOCYTES RELATIVE PERCENT 15 % (BEAKER) (test code = 431) EOSINOPHILS RELATIVE PERCENT 11 % (BEAKER) (test code = 432) BASOPHILS RELATIVE PERCENT 1 % (BEAKER) (test code = 437) NEUTROPHILS ABSOLUTE COUNT 2.46 K/ L 1.56-6.13 (BEAKER) (test code = 670) LYMPHOCYTES ABSOLUTE COUNT 1.28 K/ L 1.18-3.74 (BEAKER) (test code = 414) MONOCYTES ABSOLUTE COUNT (BEAKER) 0.79 K/ L 0.24-0.36 H (test code = 415) EOSINOPHILS ABSOLUTE COUNT 0.57 K/ L 0.04-0.36 H (BEAKER) (test code = 416) BASOPHILS ABSOLUTE COUNT (BEAKER) 0.04 K/ L 0.01-0.08 (test code = 417) IMMATURE GRANULOCYTES-RELATIVE 0.40 % 0.00-1.00 PERCENT (BEAKER) (test code = 2801) COMPREHENSIVE METABOLIC [id number] 07:42:52 Test Item Value Reference Range Interpretation Comments TOTAL PROTEIN 5.3 gm/dL 6.0-8.3 L (BEAKER) (test code = 770) ALBUMIN (BEAKER) 2.4 g/dL 3.5-5.0 L (test code = 1145) ALKALINE 215 U/L 40-150 H PHOSPHATASE (BEAKER) (test code = 346) BILIRUBIN TOTAL 0.1 mg/dL 0.2-1.2 L (BEAKER) (test code = 377) SODIUM (BEAKER) 136 meq/L 136-145 (test code = 381) POTASSIUM (BEAKER) 3.1 meq/L 3.5-5.1 L (test code = 379) CHLORIDE (BEAKER) 102 meq/L 98-107 (test code = 382) CO2 (BEAKER) (test 21 meq/L 22-29 L code = 355) BLOOD UREA 121 mg/dL 7-21 H NITROGEN (BEAKER) (test code = 354) CREATININE 3.99 mg/dL 0.57-1.25 H (BEAKER) (test code = 358) GLUCOSE RANDOM 172 mg/dL 70-105 H (BEAKER) (test code = 652) CALCIUM (BEAKER) 8.1 mg/dL 8.4-10.2 L (test code = 697) AST (SGOT) 36 U/L 5-34 H (BEAKER) (test code = 353) ALT (SGPT) 41 U/L 6-55 (BEAKER) (test code = 347) EGFR (BEAKER) 12 Interpretatio n of eGFR (test code = [...] not appl icable for dialysis patien ts Clinical Trials Manager ID - [id number] 07:40:36 Test Item Value Reference Range Interpretation Comments PHOSPHORUS (BEAKER) (test code = 4.3 mg/dL 2.3-4.7 604) Clinical Trials Manager ID - [id number] 07:40:35 Test Item Value Reference Range Interpretation Comments MAGNESIUM (BEAKER) (test code = 3.0 mg/dL 1.6-2.6 H 627) Clinical Trials Manager ID - MIGUELOCALCIUM, [id number] 07:16:59 Test Item Value Reference Range Interpretation Comments CALCIUM IONIZED (BEAKER) (test 1.08 mmol/L 1.12-1.27 L code = 698) PH, BLOOD (BEAKER) (test code = 7.45 1810) VITAMIN [id number] 21:59:30 Test Item Value Reference Range Interpretation Comments VITAMIN B12 (BEAKER) (test code = 999 pg/mL 213-816 H 774) Clinical Trials Manager ID - BSURINALYSIS W/ REFLEX URINE [id number] 18:23:30 Test Item Value Reference Range Interpretation Comments COLOR (BEAKER) (test code = 470) Yellow CLARITY (BEAKER) (test code = 469) Clear SPECIFIC GRAVITY UA (BEAKER) (test 1.049 1.001-1.035 H code = 468) PH UA (BEAKER) (test code = 467) 6.0 5.0-8.0 PROTEIN UA (BEAKER) (test code = 10 mg/dL Negative A 464) GLUCOSE UA (BEAKER) (test code = Negative Negative 365) KETONES UA (BEAKER) (test code = Negative Negative 371) BILIRUBIN UA (BEAKER) (test code = Negative Negative 462) BLOOD UA (BEAKER) (test code = Large Negative A 461) NITRITE UA (BEAKER) (test code = Negative Negative 465) LEUKOCYTE ESTERASE UA (BEAKER) Trace Negative A (test code = 466) UROBILINOGEN UA (BEAKER) (test 0.2 0.2-1.0 code = 463) RBC UA (BEAKER) (test code = 519) 45 /HPF WBC UA (BEAKER) (test code = 520) 6 /HPF BACTERIA (BEAKER) (test code = Occasional 517) SQUAMOUS EPITHELIAL (BEAKER) (test 12 /HPF code = 516) SOURCE(BEAKER) (test code = 2795) Clinical Trials Manager ID - [auto]Clinical Trials Manager ID - techBASIC METABOLIC [id number] 18:21:01 Test Item Value Reference Range Interpretation Comments SODIUM (BEAKER) 137 meq/L 136-145 (test code = 381) POTASSIUM 4.3 meq/L 3.5-5.1 (BEAKER) (test code = 379) CHLORIDE (BEAKER) 104 meq/L 98-107 (test code = 382) CO2 (BEAKER) 23 meq/L 22-29 (test code = 355) BLOOD UREA 24 mg/dL 7-21 H NITROGEN (BEAKER) (test code = 354) CREATININE 1.37 mg/dL 0.57-1.25 H (BEAKER) (test code = 358) GLUCOSE RANDOM 72 mg/dL 70-105 (BEAKER) (test code = 652) CALCIUM (BEAKER) 8.4 mg/dL 8.4-10.2 (test code = 697) EGFR (BEAKER) 45 Interpretatio n of eGFR (test code = [...] not appl icable for dialysis patien ts Clinical Trials Manager ID - BSSpecimen slightly ictericHEPATIC FUNCTION [id number] 18:21:01 Test Item Value Reference Range Interpretation Comments TOTAL PROTEIN (BEAKER) (test code = 7.2 gm/dL 6.0-8.3 770) ALBUMIN (BEAKER) (test code = 1145) 2.3 g/dL 3.5-5.0 L BILIRUBIN TOTAL (BEAKER) (test code 2.5 mg/dL 0.2-1.2 H = 377) BILIRUBIN DIRECT (BEAKER) (test 1.0 mg/dL 0.1-0.5 H code = 706) ALKALINE PHOSPHATASE (BEAKER) (test 87 U/L 40-150 code = 346) AST (SGOT) (BEAKER) (test code = 60 U/L 5-34 H 353) ALT (SGPT) (BEAKER) (test code = 36 U/L 6-55 347) Clinical Trials Manager ID - BSSpecimen slightly ictericPROTEIN, RANDOM [id number] 18:19:35 Test Item Value Reference Range Interpretation Comments PROTEIN, URINE (BEAKER) (test code = 13 mg/dL 0-14 1569) Clinical Trials Manager ID - ADMINSODIUM, RANDOM [id number] 18:19:35 Test Item Value Reference Range Interpretation Comments SODIUM URINE (BEAKER) (test code = 26 meq/L 243) Reference Range: No NormalsOperator ID - ADMINCREATININE, RANDOM [id number] 18:19:34 Test Item Value Reference Range Interpretation Comments CREATININE URINE (BEAKER) (test 117.0 mg/dL code = 375) Reference Range: No NormalsOperator ID - ADMINCALCIUM, [id number] 18:03:23 Test Item Value Reference Range Interpretation Comments CALCIUM IONIZED (BEAKER) (test 1.07 mmol/L 1.12-1.27 L code = 698) PH, BLOOD (BEAKER) (test code = 7.45 1810) [id number] 17:57:36 Test Item Value Reference Range Interpretation Comments MAGNESIUM (BEAKER) (test code = 2.1 mg/dL 1.6-2.6 627) Clinical Trials Manager ID - ADMINMISCELLANEOUS LAB [id number] 14:06:38 Test Item Value Reference Range Interpretation Comments SCAN RESULT (test code = See scanned report. [id number]) BODY FLUID CELL COUNT WITH [id number] 11:50:04 Test Item Value Reference Range Interpretation Comments APPEARANCE FLUID Cloudy Clear A (BEAKER) (test code = 510) COLOR FLUID (BEAKER) Solen Colorless, Straw A (test code = 511) RBC FLUID (BEAKER) 52528 /cu mm <=1 H (test code = 513) TOTAL NUCLEATED CELL 572 /cu mm <=5 H COUNT (BEAKER) (test code = 1442) LINING CELLS/OTHERS 0 DIFF'D (BEAKER) (test code = 1589) ADJUSTED WBC FLUID 572 /cu mm <=5 H (BEAKER) (test code = 1691) LINING CELLS/OTHERS, 0 /cu mm <=1 CALCULATED (BEAKER) (test code = 1590) NEUTROPHILS FLUID 3 % (BEAKER) (test code = 1656) LYMPHS FLUID (BEAKER) 49 % (test code = 488) MONO/MACROPHAGE FLUID 48 % (BEAKER) (test code = 489) EOSINOPHILS FLUID 0 % (BEAKER) (test code = 491) BASO FLUID (BEAKER) 0 % (test code = 492) INTERPRETATION-210 Negative for (BEAKER) (test code = malignancy 2619) [id number] Shaneka Saab M.D. (BEAKER) (test code = (electronic 2620) signature) CONTAINER BODY FLUID Sterile Cup (BEAKER) (test code = 6365) T SPOT [id number] 15:08:38 Test Item Value Reference Range Interpretation [...] = 1687) SCAN RESULT (test code = 6511207) XR CHEST 1 VIEW PORTABLE / [id number] 14:45:36 [facility] : 1965 Sex: FChest AP portable semierectComparison exam: 03/11/2023History provided: Status post thoracentesisPleural fluid has been evacuated on the left. No pneumothorax evident.Heart size normal and lungs are clear.Electronically Signed By: Mp Harris03/14/2023 14:47 CDTWorkstation Name: [id number] 14:36:40[facility] PAREDES : 1965 Sex: FULTRASOUND GUIDED LEFT THORACENTESISHistory [...] Signed By: Mp Harris03/14/2023 14:56 CDTWorkstation Name: [id number] FLUID CELL COUNT WITH [id number] 18:15:17 Test Item Value Reference Range Interpretation Comments APPEARANCE FLUID Purulent Clear A (BEAKER) (test code = 510) COLOR FLUID (BEAKER) [place] Colorless, Straw A (test code = 511) RBC FLUID (BEAKER) 79681 /cu mm <=1 H (test code = [...] code = count. Negative for 2619) malignancy [id number] Shaneka Saab M.D. (BEAKER) (test code = (electronic 2620) signature) CONTAINER BODY FLUID EDTA Tube (BEAKER) (test code = 2873) XR CHEST 1 VIEW PORTABLE / [id number] 12:19:07 [facility] : 1965 Sex: FXR CHEST 1 VIEW PORTABLE / BEDSIDETECHNIQUE: Frontal view(s) of the chest.INDICATION: Post thoracentesisPost thoracentesisCOMPARISON: 03/09/2023FINDINGS/IMPRESSION:Lines/Tubes: NoneLungs/pleura: Low lung volumes. Bibasilar atelectasis. No pleuraleffusion. No pneumothorax, status post left pleural thoracentesis.Heart and Mediastinum: Unremarkable.Soft Tissues and Bones: Unremarkable.Electronically Signed By: Carolyn Block03/11/2023 12:21 CDTWorkstation Name: [id number] [id number] 12:16:12 [facility] : 1965 Sex: FPROCEDURE: Ultrasound-guided [...] Signed By: Carolyn Block03/11/2023 12:18 CDTWorkstation Name: [id number] ANTIBODY, [id number] 12:02:16 Test Item Value Reference Range Interpretation Comments RUBELLA IGG QUANTITATION (BEAKER) 39.0 IU/mL <8.0 H (test code = 572) Rubella IgG Result Interpretation: </= 7.0 IU/mL Negative - Presumed non- immune 8.0 - 9.9 IU/mL Equivocal >= 10.0 IU/mL Positive - Presumed immune CYTOMEGALOVIRUS ANTIBODY, [id number] 12:02:15 Test Item Value Reference Range Interpretation Comments CYTOMEGALOVIRUS, IGG (BEAKER) Positive Negative, Equivocal A (test code = 3429) CMV IgG Result Interpretation: </= 0.8 Al Negative 0.9-1.0 Al Equivocal >/=1.1 Al PositiveEBV ANTIBODY, [id number] 12:02:15 Test Item Value Reference Range Interpretation Comments IMANI DENIS VIRAL CAPSID Positive Negative, Equivocal A ANTIGEN IGG (BEAKER) (test code = 3415) Imani Denis Viral Capsid Antigen IgG Result Interpretation: </= 0.8 Al Negative 0.9-1.0 Al Equivocal >/= 1.1 Al PositiveEBV ANTIBODY, [id number] 12:02:15 Test Item Value Reference Range Interpretation Comments IMANI DENIS VIRAL CAPSID Negative Negative, Equivocal ANTIGEN IGM (BEAKER) (test code = 3418) Imani Denis Viral Capsid Antigen IgM Result Interpretation: </= 0.8 Al Negative 0.9-1.0 Al Equivocal >/= 1.1 Al [id number] 11:58:38 Medical Cytology Report Case: [id number] Authorizing Provider: Joseluis Stoner MD Collected: 03/08/2023 12:46 PM Ordering Location: [facility] Received: 03/08/2023 01:09 PM Pathologist: Shaneka Saab MD Specimen: Pleural, Left LEFT PLEURAL FLUID (CYTOSPINS AND CELL BLOCK): - NEGATIVE FOR MALIGNANCY Signing Pathologist Direct Phone Line: [phone] signed by Shaneka Saab MD on 03/11/2023 at 11:58 AMThere are rare clusters of atypical cells that stain for positive Calretinin and negative for MOC-31 and Jason-EP4, confirming their mesothelial origin. Negative for icpdlsenkz21888, 57582; 77429; 38405 x 89 y.o. F presenting with left pleural effusion here for left thoracentesis. PMH: asthma, cirrhosis, HTN, abscess (MRSA)LEFT PLEURAL FLUIDA. Pleural, LeftReceived 1100 mls bloody opaque chylous fluid; prepared 4 cytospins and cell block(A2)(collodion bag) -the cell block was fixed in formalin at 10:35 on 03/09/2023 Performed.SatisfactoryThe interpretationof this case included the use of immunohistochemistry or special stains.Calretinin; MOC-31 and Jason-XE4Wnikynu Slides Examined: In-house known positive controls were evaluated along with the test tissue. These control slides run alongside of the patients sample show appropriate staining. Internal positive and negative controls when available are evaluated Immunohistochemistry technical testing was performed at [facility], Pathology Laboratory where it was developed and its performance characteristics were determined. It has not been cleared or approved by the U.S. Food and DrugAdministration. The FDA has determined that such clearance or approval is not necessary. The test isused for clinical purposes. It should not be regarded as investigational or for research. This laboratory is certified under the Clinical Laboratory Improvement Amendments of 1988 (CLIA- 88) as qualified to perform high complexity clinical laboratory testing.[facility], Department of Pathology, [address] [place] [address], [facility], Department of Pathology, [address] [place] [address], [facility], [facility], [address] [place] [address], ZYDR SCREEN, URINE, [id number] 09:09:56 Test Item Value Reference Range Interpretation Comments SCAN RESULT (test code = See scanned report. [id number]) BODY FLUID CULTURE + GRAM [id number] 08:36:33 Test Item Value Reference Range Interpretation Comments CULTURE (BEAKER) (test code = 1095) No growth XR DXA BONE DENSITY [id number] 00:58:42 [facility] : 1965 Sex: FEXAM: XR [...] Signed By: Ken Sauer03/11/2023 01:00 CDTWorkstation Name: [id number] CHEST 2 VIEWS 2023-03-10 14:22:18 [facility] : 1965 Sex: FEXAM: PA [...] Signed By: Lilo Domingo03/10/2023 14:24 CDTWorkstation Name: [id number] ZOSTER ANTIBODY, [id number] 08:09:51 Test Item Value Reference Range Interpretation Comments VARICELLA ZOSTER IGG (AL) (BEAKER) 3.3 (test code = 3197) VARICELLA ZOSTER RESULT INTERPRETATIONS: <=0.8 Al Nonreactive: Presumed non- immune to VZV 0.9-1.0Al Equivocal >=1.1 Al Reactive: Presumed immune to VZV TOXOPLASMA GONDII ANTIBODY, [id number] 08:09:51 Test Item Value Reference Range Interpretation Comments TOXOPLASMA GONDII IGG QUANTITATIVE < IU/mL <10.0 (BEAKER) (test code = 3428) Toxoplasma Gondii IgG Result Interpretation: </= 9.9 IU/mL Normal 10-11 IU/mL Equivocal >/= 12IU/mL PositiveBODY FLUID CELL COUNT WITH DIFFERENTIAL 2023-03-09 18:42:15 Test Item Value Reference Range Interpretation Comments APPEARANCE FLUID Turbid Clear A (BEAKER) (test code = 510) COLOR FLUID (BEAKER) Solen Colorless, Straw A (test code = 511) RBC FLUID (BEAKER) 19678 /cu mm <=1 H (test code = [...] code = count. Negative for 2619) malignancy [id number] Shaneka Saab M.D. (BEAKER) (test code = (electronic 2620) signature) CONTAINER BODY FLUID EDTA Tube (BEAKER) (test code = 2873) XR MANDIBLE 4 VIEWS [id number] 18:04:10 [facility] : 1965 Sex: FEXAMINATION: XR MANDIBLE 4 VIEWS MIN INDICATION: PRE LIVER TRANSPLANT EVALCOMPARISON: None DISCUSSION:Osseous detail is partially obscured by overlying bones/soft tissues.No acute fracture or osseous abnormality given exam limitations. No joint malalignment or dislocation. The soft tissues are unremarkable. IMPRESSION:No acute osseous abnormality.Electronically Signed By: Deep Soler03/09/2023 18:06 CDTWorkstation Name: [id number] 17:13:55 Test Item Value Reference Range Interpretation Comments T4 TOTAL (BEAKER) (test code = 895) 7.7 ug/dL 4.9-11.7 Clinical Trials Manager ID - [id number] 16:33:38 Test Item Value Reference Range Interpretation Comments THYROID STIMULATING HORMONE 4.265 uIU/mL 0.350-4.940 (BEAKER) (test code = 772) Clinical Trials Manager ID - MMCARCINOEMBRYONIC ANTIGEN (CEA)2023-03-09 16:33:38 Test Item Value Reference Range Interpretation Comments CARCINOEMBRYONIC ANTIGEN (BEAKER) 2.2 ng/mL 0.0-5.0 (test code = 685) Clinical Trials Manager ID - MMHEPATITIS B CORE ANTIBODY, [id number] 16:33:38 Test Item Value Reference Range Interpretation Comments HEPATITIS B CORE IGM ANTIBODY Nonreactive Nonreactive (BEAKER) (test code = 645) Clinical Trials Manager ID - MMHIV-1 ANTIGEN WITH HIV-1/2 [id number] 16:33:38 Test Item Value Reference Range Interpretation Comments HIV-1 ANTIGEN WITH HIV 1\\T\\2 Nonreactive Nonreactive ANTIBODY (2) (BEAKER) (test code = 2586) Clinical Trials Manager ID - [id number] 15:58:22 Test Item Value Reference Range Interpretation Comments T3 TOTAL (BEAKER) (test code = 0.72 ng/mL 0.60-1.81 656) Clinical Trials Manager ID - [id number] 15:40:58 Test Item Value Reference Range Interpretation Comments TRANSFERRIN (BEAKER) (test code = 145 mg/dL 174-382 L 541) Clinical Trials Manager ID - MMSpecimen slightly ictericCRYPTOCOCCAL [id number] 14:32:45 Test Item Value Reference Range Interpretation Comments CRYPTOCOCCAL ANTIGEN, SERUM Negative Negative, Interference (BEAKER) (test code = 1828) [id number] 14:32:11 Test Item Value Reference Range Interpretation Comments RPR SCREEN (BEAKER) (test code = Nonreactive Nonreactive 420) HEMOGLOBIN [id number] 13:55:09 Test Item Value Reference Range Interpretation [...] 5.7- 6.4% indicates increased risk for diabetes (prediabetes)."Clinical Trials Manager ID - ADMOperator ID - ADMBLOOD GAS, [id number] 13:50:57 Test Item Value Reference Range Interpretation [...] (test code = 1819) 21.0 VITAMIN D, [id number] 13:45:25 Test Item Value Reference Range Interpretation Comments VITAMIN D 25-OH (BEAKER) (test 17.2 ng/mL 6.6-49.9 code = 2764) Effective 06/22/2017: Reference Range ChangeNew: 6.6-49.9 ng/mL Previous: 13.0- 47.8 ng/mLRecommendedVitamin D Target Range: 30.0-40.0 ng/mLOperator ID - ED [id number] 11:33:41Medical Cytology Report Case: [id number] Authorizing Provider: Joseluis Stoner MD Collected: 03/03/2023 01:57 PM Ordering Location: [facility] Diagnostic Imaging Received: 03/04/2023 11:36 AM Pathologist: Shaneka Saab MD Specimen: Pleural, Left LEFT PLEURAL FLUID (CYTOSPINS AND CELL BLOCK): - NEGATIVE FOR MALIGNANCY - Chronic inflammatory cells present in background Signing Pathologist Direct Phone Line: [phone] signed by Shaneka Saab MD on 03/09/2023 at 11:33 [id number], [id number] y.o. F presenting with left pleural effusion. PMH: asthma, cirrhosis, HTN, abscess (MRSA)LEFT PLEURAL FLUIDA. Pleural, LeftReceived 1100 mls bloody white chylous opaque fluid; prepared 4 cytospins and cell block(A2)(collodion bag) - the cell block was fixed in formalin at 13:05on 03/07/[address]. [facility], Department of Pathology, [address] [place] [address], [facility], Departmentof Pathology, [address] [place] [address], Gy. [facility], Department of Pathology, [address] [place] [address], [id number] 10:33:02 Test Item Value Reference Range Interpretation Comments ETHANOL (BEAKER) (test code = 400) < mg/dL <=10 Clinical Trials Manager ID - MMCOMPREHENSIVE METABOLIC [id number] 10:14:53 Test Item Value Reference Range Interpretation [...] not appl icable for dialysis patien ts Clinical Trials Manager ID - MMOperator ID - MMSpecimen slightly [id number] 09:51:32 Test Item Value Reference Range Interpretation Comments MAGNESIUM (BEAKER) (test code = 1.9 mg/dL 1.6-2.6 627) Clinical Trials Manager ID - [id number] 09:51:32 Test Item Value Reference Range Interpretation Comments PHOSPHORUS (BEAKER) (test code = 3.3 mg/dL 2.3-4.7 604) Clinical Trials Manager ID - MMURIC [id number] 09:51:32 Test Item Value Reference Range Interpretation Comments URIC ACID (BEAKER) (test code = 8.2 mg/dL 2.6-7.2 H 773) Clinical Trials Manager ID - MMSpecimen slightly ictericLIPID [id number] 09:51:32 Test Item Value Reference Range Interpretation Comments TRIGLYCERIDES (BEAKER) (test code = 100 mg/dL 540) CHOLESTEROL (BEAKER) (test code = 183 mg/dL 631) HDL CHOLESTEROL (BEAKER) (test code 30 mg/dL = 976) LDL CHOLESTEROL CALCULATED (BEAKER) 133 mg/dL (test code = 633) Triglyceride Reference Range: Low Risk <150 Borderline 150-199 High Risk 200- 499 Very High Risk >=500Cholesterol Reference Range: Low Risk <200 Borderline 200-239 High Risk >240HDL Cholesterol Reference Range: Low Risk >=60 High Risk <40LDL Cholesterol Reference Range: Optimal <100 Near Optimal 100-129 Borderline 130-159 High 160-189 Very High >=190 Clinical Trials Manager ID - MMSpecimen slightly ictericBILIRUBIN, [id number] 09:51:32 Test Item Value Reference Range Interpretation Comments BILIRUBIN DIRECT (BEAKER) (test 1.0 mg/dL 0.1-0.5 H code = 706) Clinical Trials Manager ID - MMGAMMA GLUTAMYL TRANSFERASE (GGT)2023-03-09 09:51:32 Test Item Value Reference Range Interpretation Comments GAMMA GLUTAMYL TRANSFERASE (BEAKER) 51 U/L 9-64 (test code = 364) Clinical Trials Manager ID - MMSpecimen slightly ictericPREGNANCY SCREEN, [id number] 09:24:02 Test Item Value Reference Range Interpretation Comments TEST URINE (BEAKER) (test Negative Negative code = 583) [id number] 09:11:02 Test Item Value Reference Range Interpretation Comments FIBRINOGEN LEVEL (BEAKER) (test 229 mg/dl 225-434 code = 658) [id number] 09:11:02 Test Item Value Reference Range Interpretation Comments PARTIAL THROMBOPLASTIN TIME 29.4 seconds 22.5-36.0 (BEAKER) (test code = 760) PROTHROMBIN TIME/[id number] 09:10:24 Test Item Value Reference Range Interpretation [...] mechanical heart valves.CBC W/PLT COUNT & AUTO [id number] 08:59:26 Test Item Value Reference Range Interpretation [...] PERCENT (BEAKER) (test code = 2801) US [id number] 13:29:33 [facility] CENTERName: PTAIENCE PAREDES : 1965 Sex: FUS THORACENTESISUS Guided Thoracentesis History: pleural effusionPrimary Clinical Trials Manager: Goldie Albright MD.Sedation: None. Anesthesia: Lidocaine local [...] x-ray showed no pneumothorax.After uneventful recovery recovery, [facility] Complications: None immediate.Specimen: Sent to the lab. IMPRESSION:Impression: Successful ultrasound-guided thoracentesis of left pleuraleffusion withrecovery of 2.1 liters of pleural fluid. Thank you for the opportunity to assist in the care of your patient.Electronically Signed By: Goldie Albright03/08/2023 13:31 CDTWorkstation Name: BXVMEY8HS CHEST 1 VIEW PORTABLE / [id number] 13:05:28 [facility] : 1965 Sex: FXR CHEST [...] Signed By: Goldie Albright03/08/2023 13:07 CDTWorkstation Name: [id number] CULTURE + SMEAR 2023-03-07 16:58:04 Test Item Value Reference Range Interpretation Comments CULTURE (BEAKER) (test No fungus isolated in code = 1095) 28 days FUNGUS SMEAR (BEAKER) No fungi seen (test code = 1406) BODY FLUID CELL COUNT WITH [id number] 19:21:25 Test Item Value Reference Range Interpretation Comments APPEARANCE FLUID Turbid Clear A (BEAKER) (test code = 510) COLOR FLUID (BEAKER) Solen Colorless, Straw A (test code = 511) RBC FLUID (BEAKER) 30042 /cu mm <=1 H (test code = [...] code = count. Negative for 2619) malignancy [id number] Shaneka Saab M.D. (BEAKER) (test code = (electronic 2620) signature) CONTAINER BODY FLUID EDTA Tube (BEAKER) (test code = 2873) XR CHEST 1 VIEW PORTABLE / [id number] 15:32:34 [facility] : 1965 Sex: FXR CHEST 1 VIEW PORTABLE / BEDSIDETECHNIQUE: Frontal view(s) of the chest.INDICATION: post thoracentesisCOMPARISON: 02/21/2023FINDINGS/IMPRESSION:Lines/Tubes: NoneLungs/pleura: A lingular/left lower lobe opacity with adjacent leftpleural effusion. No right-sided pleural effusion. No pneumothorax.Heart and Me diastinum: Unremarkable.Soft Tissues and Bones: Unremarkable.Electronically Signed By: Goldie Pappas [facility]03/03/2023 15:34 CDTWorkstation Name: [id number] [id number] 14:52:49 [facility] BISI PATIENCELEIDY CURTIS : 1965 Sex: FPROCEDURE: Ultrasound-guided thoracentesisProcedural PersonnelAttending [...] Signed By: Carolyn Block03/03/2023 15:04 CDTWorkstation Name: SEEPVF5VCDIBANPCSLLT LAB [id number] 14:03:21 Test Item Value Reference Range Interpretation Comments SCAN RESULT (test see scanned report See scanned report. code = [id number]) see scanned reportCT BRAIN WITHOUT IV [id number] 20:48:50 [facility] : 1965 Sex: FEXAM: CT BRAIN WITHOUT IV [...] Signed By: Erika Almazan02/26/2023 20:50 CDTWorkstation Name: [id number] METABOLIC [id number] 18:18:27 Test Item Value Reference Range Interpretation [...] not appl icable for dialysis patien ts Clinical Trials Manager ID - MITUL BSpecimen slightly [id number] 18:18:27 Test Item Value Reference Range Interpretation Comments LIPASE (BEAKER) (test code = 749) 65 U/L 8-78 Clinical Trials Manager ID - MITUL BSpecimen slightly ictericCBC W/PLT COUNT & AUTO [id number] 18:18:20 Test Item Value Reference Range Interpretation [...] 0.00-1.00 PERCENT (BEAKER) (test code = 2801) [id number] 18:04:10 Test Item Value Reference Range Interpretation Comments AMMONIA (BEAKER) (test 40 mol/L 18-72 Speci men slightly code = 348) hemolyzed Clinical Trials Manager ID - ADMINBODY FLUID CULTURE + GRAM [id number] 11:35:18 Test Item Value Reference Range Interpretation Comments CULTURE (BEAKER) (test code = 1095) No growth [id number] 12:49:07Medical Cytology Report Case: [id number] Authorizing Provider: Joseluis Stoner MD Collected:02/21/2023 11:49 AM Ordering Location: [facility] Received: 02/22/2023 09:24 AM Pathologist: Salvador Davenport MD Specimen: Pleural, Left LEFT PLEURAL FLUID (CYTOSPINS AND CELL BLOCK): - NEGATIVE FOR MALIGNANCY Reactive mesothelial cells and mixed inflammatory cells present Signing Pathologist Direct PhoneLine: [phone] signed by Salvador Davenport MD on 02/23/2023 at 12:49 [id number], [id number] y.o. F with a PMH of HTN, asthma, Cifuentes cirrhosis, esophageal varices, refractory ascites and hepatic hydrothorax. Also with gallstones/biliary obstruction needing axial stent placement who was admitted to[facility] for nausea and emesis x one day and transferred to [facility] for further evaluation and consideration of choleystitis / cholelithiasis. LEFT PLEURAL FLUIDA. Pleural, LeftReceived 1100 ml gelatinous orange cream fluid; prepared 4 cytospins and cell block(A2)(collodion bag) - the cell block was fixed informalin at 16:07 on 02/22/2023erformed.SatisfactoryB[facility], [facility] of P ath[facility], [address] [place] [address], [facility], Department of Pathology, [address] [place] [address], [facility], Department of Pathology, [address] [place] [address], RQ [id number] 15:34:35 [facility]I, PATIENCE REED : 1965 Sex: FUltrasound guided left thoracentesis.Clinical History: Left pleural effusion.Modality: Ultrasound.Sedation: None. Jeeper Operator: Danuta Corralistant: None. Estimated Blood Loss: 1ccSpecimen: [...] guided left thoracentesis.BODY FLUID CELL COUNT WITH [id number] 13:54:05 Test Item Value Reference Range Interpretation Comments APPEARANCE FLUID (BEAKER) (test Turbid Clear A code = 510) COLOR FLUID (BEAKER) (test code Solen Colorless, Straw A = 511) RBC FLUID (BEAKER) (test code = 97788 /cu mm <=1 H 513) TOTAL NUCLEATED [...] 2873) XR CHEST 1 VIEW PORTABLE / [id number] 12:41:37 [facility] : 1965 Sex: FINDICATION: s/p left thoraCOMPARISON: 02/17/2023TECHNIQUE: Single frontal view of the chest.FINDINGS: Lines, tubes, and devices: None.Lungs and pleura: Clear lungs. No pneumothorax.Heart and mediastinum: Normal heart size. Unremarkable mediastinalcontours.Osseous structures: No acute abnormality. Mild to moderate spondylosisand facet arthropathy are present within the spine.Other: None.IMPRESSION:No acute intrathoracic abnormality.US [id number] 13:20:59[facility] CENTERName: PAT[facility]ENCE PAREDES : 1965 Sex: FUltrasound guided left thoracentesis.Clinical History: Left pleural effusion.Modality: Ultrasound.Sedation: None. Jeeper Operator: Danuta Corralistant: None. Estimated Blood Loss: 1ccSpecimen: [...] and uncomplicated ultrasound guided left thoracentesis.US ABDOMEN [id number] 13:20:53 [facility] : 1965 Sex: FHistory: Ascites. PROCEDURE: Limited sonographic examination of the abdomen was performed inpreparation for planned ultrasound-guided paracentesis. Limitedsonographic examination of the abdomen showed onlya trace amount ofperihepatic and midline fluid. Therefore, paracentesis was notperformed. IMPRESSION: 1. Trace ascites, not enough for planned paracentesis.XR CHEST 1 VIEW PORTABLE / [id number] 08:45:23[facility] : 1965 Sex: FChest AP portableCOMPARISON STUDY: 02/16/2023History provided: Status post left thoracentesisPleural fluid has been evacuated on the left. No pneumothorax. Lungs areclear. Heart size normal.COMPREHENSIVE METABOLIC [id number] 05:08:14 Test Item Value Reference Range Interpretation [...] not appl icable for dialysis patien ts Clinical Trials Manager ID - MMSpecimen slightly ictericPROTHROMBIN TIME/[id number] 04:59:05 Test Item Value Reference Range Interpretation [...] mechanical heart valves.CBC W/PLT COUNT & AUTO [id number] 04:48:06 Test Item Value Reference Range Interpretation [...] 0-0 (test code = 413) SODIUM, RANDOM [id number] 21:11:21 Test Item Value Reference Range Interpretation Comments SODIUM URINE (BEAKER) (test code = 20 meq/L 243) Reference Range: No NormalsOperator ID - ADMINURINALYSIS [id number] 21:04:51 Test Item Value Reference Range Interpretation Comments RBC UA (BEAKER) (test code = 519) 20 /HPF WBC UA (BEAKER) (test code = 520) 4 /HPF BACTERIA (BEAKER) (test code = Occasional 517) SQUAMOUS EPITHELIAL (BEAKER) (test 4 /HPF code = 516) Clinical Trials Manager ID - techURINALYSIS WITH MICROSCOPIC IF [id number] 21:02:38 Test Item Value Reference Range Interpretation [...] = 463) SOURCE(BEAKER) (test code = 2795) Clinical Trials Manager ID - techXR CHEST 1 VIEW PORTABLE / [id number] 09:34:56 [facility] : 1965 Sex: FINDICATION: cough, recent left pleural effusionCOMPARISON: NoneTECHNIQUE: Single frontal view of the chest.FINDINGS: Lungs and pleura: Mild basilar subsegmental atelectasis. Questionabletrace left effusion.Heart and mediastinum: Normal heart size. Unremarkable mediastinalcontours.Osseous structures: No acute abnormality.Other: None.IMPRESSION:Mild basilar subsegmental atelectasis. Questionable trace left e ffusion.HEPATIC FUNCTION [id number] 06:43:05 Test Item Value Reference Range Interpretation [...] (test code = 42 U/L 6-55 347) Clinical Trials Manager ID - ADMINSpecimen slightly ictericBASIC METABOLIC [id number] 06:43:04 Test Item Value Reference Range Interpretation [...] not appl icable for dialysis patien ts Clinical Trials Manager ID - ADMINSpecimen slightly ictericCBC W/PLT COUNT & AUTO [id number] 06:02:40 Test Item Value Reference Range Interpretation [...] 0.00-1.00 PERCENT (BEAKER) (test code = 2801) [id number] 18:46:14Medical Cytology Report Case: [id number] Authorizing Provider: Joseluis Stoner MD Collected:02/04/2023 02:25 PM Ordering Location: [facility] Radiology Ultrasound Received: 02/08/2023 08:26 AM Pathologist: Simon Corona MD Specimen: Pleural, Left LEFT PLEURAL FLUID (CYTOSPINS AND CELL BLOCK): -NEGATIVE FOR MALIGNANCY - Reactive mesothelial cells, histiocytes, and lymphocytes Signing Pathologist Direct Phone Line: [phone] signed by Simon Corona MD on 02/09/2023 at 6:46 PM8 [id number], [id number] y.o. F with h/o CIFUENTES cirrhosis decompensated with EV, hydrothorax HTN, abscess (MRSA),asthma.LEFT PLEURAL FLUIDA. Pleural, LeftReceived 1100 ml orange cream fluid; prepared 4 cytospins and cell block(A2)(collodion bag) - the cell block was fixed in formalin at 16:44 on 02/08/2023erformed .[facility]actoryB[facility], [facility] of [facility]ology, [address] [place] [address], [facility], [facility] of [facility], [address] [place] [address], [facility], Department of [facility]ology, [address] [place] [address], BUCJ FLUID CULTURE + GRAM [id number] 13:30:56 Test Item Value Reference Range Interpretation Comments CULTURE (BEAKER) (test code = 1095) No growth BODY FLUID CELL COUNT WITH [id number] 17:29:30 Test Item Value Reference Range Interpretation Comments APPEARANCE FLUID (BEAKER) (test Bloody Clear A code = 510) COLOR FLUID (BEAKER) (test code Red Colorless, Straw A = 511) RBC FLUID (BEAKER) (test code = 58655 /cu mm <=1 H 513) TOTAL NUCLEATED [...] EDTA Tube (test code = 2873) U/S, [id number] 16:18:00SAURABH NICOLE MD Laterality?- >LeftLabs to be Ordered:->Body Fluid Culture (w/Gram Stain, C\\T\\S)AFB smear and culture Labs to be Ordered:->CytologyLabs to be Ordered:->Fungal CultureLabs to be Ordered:->Glucose+LDH+ProteinLabs to be Ordered:->Cell CountLabs to be Ordered:->Other (please add comment)Reason for Exam:- >recurrent left pleural effusion [facility] 1965 Sex: FFINAL REPORT Ultrasound guided left thoracentesis. Clinical History: Left pleural effusion. Modality: Ultrasound. Sedation: None. Jeeper Operator: Danuta Taylor PA-C Psychology Physician: None. Estimated Blood Loss: 1cc Specimen: 1100 [...] Diaz Verified Date/Time: 02/04/2023 16:18:02 Reading Location: [facility] P006J Ultrasound Reading Room Electronically signed by: Cirilo GROSSMAN 02/04/2023 04:18 PMRAD, CHEST, 1 VIEW, NON DEPT 2023-02-04 15:10:00SAURABH NICOLE MD Reason for exam:->s/p left thoraShould this be performed at the bedside?->YesIn US [facility] : 1965 Sex: FFINAL REPORT Chest, 1 view, 02/04/2023 2:53 PM. History: Post left thoracentesis. Comparison: 01/21/2023. Discussion: The cardiomediastinal silhouette and pulmonary vasculature are withinnormal limits for a portable exam. The lungs are clear without evidence of consolidation or effusion. The soft tissues and osseous structures are intact. IMPRESSION: No evidence of complication post left thoracentesis. Signed: Chano [facility] Verified Date/Time: 02/04/2023 15:10:45 CBC W/PLT COUNT & AUTO [id number] 16:57:36 Test Item Value Reference Range Interpretation [...] (BEAKER) (test code = 2801) HEPATIC FUNCTION [id number] 16:17:22 Test Item Value Reference Range Interpretation [...] (test code = 42 U/L 6-55 347) Clinical Trials Manager ID - BSSpecimen slightly ictericBASIC METABOLIC [id number] 16:17:21 Test Item Value Reference Range Interpretation [...] not appl icable for dialysis patien ts Clinical Trials Manager ID - BSSpecimen slightly ictericPROTHROMBIN TIME/[id number] 16:05:29 Test Item Value Reference Range Interpretation Comments PROTIME (BEAKER) (test code = 18.5 seconds 11.9-14.2 H 759) INR (BEAKER) (test code = 370) 1.58 <=5.90 RECOMMENDED COUMADIN/WARFARIN INR THERAPY RANGESSTANDARD DOSE: 2.0 - 3.0 Includes: PROPHYLAXIS for venous thrombosis, systemic embolization; TREATMENT for venous thrombosis and/or pulmonary embolus.HIGH RISK: Target INR is 2.5-3.5 for patients with mechanical heart valves.BLOOD [id number] 16:00:58 Test Item Value Reference Range Interpretation Comments CULTURE (BEAKER) (test No growth in 5 days code = 1095) The specimen volume collected for this blood culture was below the optimum (10 mL per bottle or 20 mL total). Use of lower volumes may adversely affect recovery and/or detection times of some organisms.BLOOD [id number] 16:00:58 Test Item Value Reference Range Interpretation Comments CULTURE (BEAKER) (test No growth in 5 days code = 1095) The specimen volume collected for this blood culture was below the optimum (10 mL per bottle or 20 mL total). Use of lower volumes may adversely affect recovery and/or detection times of some organisms.[id number] 14:39:22 Medical Cytology Report Case: [id number] Authorizing Provider: Naheed Villalta MD Collected: 01/21/2023 08:44 AM Ordering Location: [address] Received: 01/21/2023 03:34 PM Service Pathologist: Hany Ferrer MD Specimen: Pleural, Left LEFT PLEURAL FLUID (CYTOSPINS AND CELL BLOCK): - NEGATIVE FOR MALIGNANCY BLOOD WITH REACTIVE MESOTHELIAL CELLS AND MIXED CHRONIC INFLAMMATORY CELLS Signing Pathologist Direct Phone Line: [phone] signed by Hany Ferrer MD on 01/24/2023 at 2:39 [id number], [phone] y.o. F with h/o HTN, asthma, decompensated [...] was fixed in formalin at 16:38 on 01/21/2023erformed.[facility], Department of Pathology, [address] [place] [address], [facility], Department of Pathology, [address] [place] [address], [facility], Department of Pathology, [address] [place] [address], QMFU FLUID CULTURE + GRAM [id number] 14:24:35 Test Item Value Reference Range Interpretation Comments CULTURE (BEAKER) (test code = 1095) No growth CALCIUM, [id number] 05:18:15 Test Item Value Reference Range Interpretation Comments CALCIUM IONIZED (BEAKER) (test 1.08 mmol/L 1.12-1.27 L code = 698) PH, BLOOD (BEAKER) (test code = 7.45 1810) COMPREHENSIVE METABOLIC [id number] 04:54:27 Test Item Value Reference Range Interpretation [...] not appl icable for dialysis patien ts Clinical Trials Manager ID - ADMINSpecimen slightly [id number] 04:53:09 Test Item Value Reference Range Interpretation Comments PHOSPHORUS (BEAKER) (test code = 3.1 mg/dL 2.3-4.7 604) Clinical Trials Manager ID - [id number] 04:53:08 Test Item Value Reference Range Interpretation Comments MAGNESIUM (BEAKER) (test code = 1.8 mg/dL 1.6-2.6 627) Clinical Trials Manager ID - ADMINCBC W/PLT COUNT & AUTO [id number] 04:36:32 Test Item Value Reference Range Interpretation [...] (BEAKER) (test code = 2801) COMPREHENSIVE METABOLIC [id number] 04:44:22 Test Item Value Reference Range Interpretation [...] not appl icable for dialysis patien ts Clinical Trials Manager ID - MMSpecimen slightly ictericCBC W/PLT COUNT [...] PERCENT (BEAKER) (test code = 2801) U/S, [id number] 18:07:00SAURABH NICOLE MD Laterality?- >Left Reason for exam:->SHORTNESS OF BREATH Reason for exam:->ABNORMAL IMAGING RESULT Labs to be Ordered:->Body Fluid Culture (w/Gram Stain, C\\T\\S) Labsto be Ordered:->Cytology Labs to be Ordered:->Glucose+LDH+Protein Labs to be Ordered:->CellCount [facility] : 1965 Sex: FFINAL REPORT Ultrasound guided left-sided thoracentesis. Clinical History: Left pleural effusion. Modality: Ultrasound. Sedation: None. Jeeper Operator: Carlos Ray PA-C Psychology Physician: None.Estimated Blood Loss: 1cc Specimen: 2450 cc [...] MDReport Verified Date/Time: 01/21/2023 18:07:57 Reading Location: [facility] P006J Ultrasound Reading Room BODY FLUID CELL COUNT WITH [id number] 16:39:03 Test Item Value Reference Range Interpretation [...] = 2873) RAD, CHEST, 1 VIEW, NON [id number] 09:48:00SAURABH NICOLE MD Reason for exam:->s/p left thoracentesisShould this be performed at [facility]?->Yes[facility] : 1965 Sex: FFINAL REPORT [...] Lee Diaz MDReport Verified Date/Time: 01/21/2023 09:48:04 COMPREHENSIVE METABOLIC [id number] 05:25:17 Test Item Value Reference Range Interpretation [...] not appl icable for dialysis patien ts Clinical Trials Manager ID - mmSpecimen slightly ictericLACTIC ACID, [id number] 05:14:06 Test Item Value Reference Range Interpretation Comments LACTATE BLOOD VENOUS (2) (BEAKER) 1.43 mmol/L 0.50-2.00 (test code = 2872) Clinical Trials Manager ID - mmSpecimen slightly ictericCBC (HEMOGRAM ONLY)2023-01-21 [...] WBC 0-0 (test code = 413) PROTHROMBIN TIME/[id number] 00:49:25 Test Item Value Reference Range Interpretation [...] valves.CT, CHEST WITH IV CONTRAST- PE TEST [id number] 17:44:00SAURABH NICOLE MD Unlisted Reason for Exam - Click Yes and Enter Reason Below->No [facility] : 1965 Sex: FFINAL [...] ascites, splenomegaly, and gastroesophageal varices. Signed: Erika Almazaneport Verified Date/Time: 01/20/2023 17:44:58 LACTIC ACID, [id number] 16:27:23 Test Item Value Reference Range Interpretation Comments LACTATE BLOOD VENOUS 2.52 mmol/L 0.50-2.00 H Specime n slightly (2) (BEAKER) (test hemolyzed code = 2872) Clinical Trials Manager ID - ADMINSpecimen slightly ictericRAD, CHEST, 1 VIEW, NON DEPT 2023-01-20 15:36:00SAURABH NICOLE MD Reason for exam:->SHORTNESS OF BREATHReason for exam:->ABNORMAL IMAGING RESULTShould this be performed at the bedside?->Yes [facility] : 1965 Sex: FFINAL REPORT INDICATION: SHORTNESS OF BREATHABNORMAL IMAGING RESULT COMPARISON: 12/30/2022 TECHNIQUE: Single frontal view of the chest. IMPRESSION: Lungs and pleura: Moderate left pleural effusion with adjacent left basilar airspace opacities similar to previous. Right lung is clear. Heart and mediastinum: Normal heart size. Unremarkable mediastinal contours. Osseous structures: No acute abnormality. Other: None. Signed: Erika Almazanort Verified Date/Time: 01/20/2023 15:36:18 HIGH SENSITIVITY TROPONIN [id number] 15:35:54 Test Item Value Reference Range Interpretation Comments HIGH SENSITIVITY TROPONIN I (test 8 pg/ml <=17 code = 1575574) Clinical Trials Manager ID - ADMINThe PAPER RECLAIMING MACHINE OPERATOR STAT High Sensitivity Troponin-I results should be used in conjunction with other diagnostic information such as ECG, clinical observations and information, and patientsymptoms to aid in the diagnosis of [place]. HCG, QUANTITATIVE, [id number] 15:35:54 Test Item Value Reference Range Interpretation Comments GONADOTROPIN, CHORIONIC (HCG) QUANT < mIU/mL 0-10 (BEAKER) (test code = 649) Non- Females: <10 mIU/mL Females: Gestation Age Reference Range(mIU/mL) 0.2-1 Week 5-50 1-2 Weeks 50-500 2-3 Weeks 100-5,000 3-4 Weeks 500-10,000 4-5 Weeks 1,000-50,000 5-6 Weeks 10,000-100,000 6-8 Weeks 15,000- 200,000 2-3 Months 10,000-100,000 Clinical Trials Manager ID - ADMINB-TYPE NATRIURETIC FACTOR (BNP)2023-01-20 15:33:30 Test Item Value Reference Range Interpretation Comments B-TYPE NATRIURETIC PEPTIDE (BEAKER) 11 pg/mL 0-100 (test code = 700) Clinical Trials Manager ID - ADMINCOMPREHENSIVE METABOLIC [id number] 15:29:09 Test Item Value Reference Range Interpretation [...] not appl icable for dialysis patien ts Clinical Trials Manager ID - ADMINSpecimen slightly [id number] 15:29:09 Test Item Value Reference Range Interpretation Comments LIPASE (BEAKER) (test code = 749) 61 U/L 8-78 Clinical Trials Manager ID - ADMINSpecimen slightly [id number] 15:29:08 Test Item Value Reference Range Interpretation Comments MAGNESIUM (BEAKER) 1.9 mg/dL 1.6-2.6 Specimen markedly (test code = 627) hemolyzed Clinical Trials Manager ID - ADMINLACTIC ACID, [id number] 15:25:00 Test Item Value Reference Range Interpretation Comments LACTATE BLOOD VENOUS 3.00 mmol/L 0.50-2.00 H Specime n markedly (2) (BEAKER) (test hemolyzed code = 2872) Clinical Trials Manager ID - ADMINSpecimen slightly [id number] 15:17:14 Test Item Value Reference Range Interpretation Comments PARTIAL THROMBOPLASTIN TIME 29.9 seconds 22.5-36.0 (BEAKER) (test code = 760) PROTHROMBIN TIME/[id number] 15:16:12 Test Item Value Reference Range Interpretation [...] mechanical heart valves.CBC W/PLT COUNT & AUTO [id number] 15:12:40 Test Item Value Reference Range Interpretation [...] (BEAKER) (test code = 2801) pH, body [id number] 02:37:54 Test Item Value Reference Range Interpretation Comments pH, Body Fluid 7.6 (test code = 2748-2) PH FLUID TYPE Body fluid Reference (test code = range:Reference 43906-6) ranges have not been established on thistype of flu id for this test. EDILBERTO (test code Performing Lab *CHRISTOPHER = EDILBERTO) [facility]/Ness Merino [address] [place] [address] Stephane Jeffers MD, PhD [facility] HospitalCOMPREHENSIVE METABOLIC [id number] 06:51:38 Test Item Value Reference Range Interpretation [...] 1092) DATA TO CALCULA TE ESTIMATED GFR. Clinical Trials Manager ID - MARCOSpecimen slightly [id number] 06:11:49 Test Item Value Reference Range Interpretation Comments PHOSPHORUS (BEAKER) (test code = 3.6 mg/dL 2.3-4.7 604) Clinical Trials Manager ID - [id number] 06:11:48 Test Item Value Reference Range Interpretation Comments MAGNESIUM (BEAKER) (test code = 1.7 mg/dL 1.6-2.6 627) Clinical Trials Manager ID - MARCOCBC W/PLT COUNT & AUTO [id number] 05:40:48 Test Item Value Reference Range Interpretation [...] PERCENT (BEAKER) (test code = 2801) CALCIUM, [id number] 05:33:21 Test Item Value Reference Range Interpretation Comments CALCIUM IONIZED (BEAKER) (test 1.05 mmol/L 1.12-1.27 L code = 698) PH, BLOOD (BEAKER) (test code = 7.50 1810) BLOOD [id number] 00:01:46 Test Item Value Reference Range Interpretation Comments CULTURE (BEAKER) (test No growth in 5 days code = 1095) The specimen volume collected for this blood culture was below the optimum (10 mL per bottle or 20 mL total). Use of lower volumes may adversely affect recovery and/or detection times of some organisms.[id number] 19:31:37 Test Item Value Reference Range Interpretation Comments Case Report (test code Medical Cytology = 104) Report Case: [id number] Authorizing Provider: Marisabel Ho MD Collected: 12/30/2022 09:33 AM Ordering Location: [address] Received: 12/30/2022 01:05 PM Service Pathologist: Lilibeth Mello MD Specimen: Pleural, Left DIAGNOSIS (test code = s8axmUUqEHVch2inEGEcgZ 3220) FuZzEwMzNcZnRuYmpcdWMx IHtccnRmMVxlcGljMTAyMD NwMZ1xnFvcdQz8mFmaIPKx grJ1eJExRLjcx2odTHN0u4 thynuiCUSxOBglIy5tbVHc eHxjTkYvAZXrRDp7pO51UQ VbsP1meVBlSEd1KUUmhIMe nwUnBsEoPEYjrGOroVG9HP FpGN6tbnkfRTxnADqmJODe xeW0UQKziHAzO8WmSOLqOZ 6gtffiPQV2IJupMLYkQFD3 FaKjTWFki1Fzspm9KfVrmG FyZFxwbGFpblxmczIwIExF RlQgUExFVVJBTCBGTFVJRC PfQ3rCQ6SLHL0XVFEKNZQA YLnGXBVNB9YPUZdqkElbLX AgICAtICBORUdBVElWRSBG B0YhUDVWYXzNHX1AAQxuBS IgICAgLSAgQmVuaWduIGFu WOKjOESebHw1DEVmTZGuuL mbpLxusHGaCSphglAsQE4v eESdVWulnDluIXT1nTOjIE 4zETQnjl4ehIQplG9lmLPd qVD6nX4dISfeSVB6a9xnkN YxXHNzdGUxODAwMFxhbnNp RBTxFhrpcaiqRPAgPHD6kr VoCMPtYJlkNXNwWMegVk7t vNUlkBcyCeJdSLHxb8geel IGdnghtUy2v4ioGQLhYtR8 qNFeSDaqB1flkrOnvCGjAQ LsNDe8gG85IIUvnP3qmELa SPgbzhIhJmY7VBaaVALsBc C5QYRkuLEmJKNkX8xeUNBk XTohAMBfPLmwhACtVHG6aG nqt6M6lDNccBTptVfuJsXu OoUuCaWAx1DdSZr3fLpaA7 IiOCMgEeK4sORbCVWzWUzr QYUbTQGybuN2aM08YHtvxh X5eDMqb0Qys39ll304hN5p bUQtEXW0IHFlIJUazIWjSY HlHQX9YAKyuSAqT3nhSEMs FI3vvuolQVpgMKouRPOiyG A2XWBbxRZeZ4AuPMSyYCar ZIQfiqy5LbUdMz9caXEzcD lhTYwve8dop7ksbISgBjj5 ZXTiRsAmChaiHClws0Ulk1 gtQHAaps3lIIQ2aLDfyHcy x7I2pQEcFKOdmRPmVCSlMX 6erLOsBDFgiO7riuvcKZXm YnJkcmhlYWRccGdicmRyZm 6ilXofLZR2JWdiU1shjD8n EpZ2APzzU9cdfN4wPFh4NA anWGKdtGA0vtA3AAEunCVj W5ZgtX0xCZMcPC0yqas8m1 hlZQP5LSouTTQlKbG3uyG9 NDBcaGVhZGVyeTcyMFxmb2 43GBO6BqZnPATxi5OeY2Un aAqpF59vmIgnF19aKGJsmI lqoB2zfAznzG8hRgXjCxMy KDnyvBqrJS5yISFuL7suaP RpZZNvIUKvI1adGyJhiT9v jOllTIvvwdUnTCScVmk6CH PppKOmBRFnKhv7OJEmQLRz J92xyjctQTK6nX6yf1kqp8 VnYNtjMIQ0FHLcg00tOMwb bbQ2XEzsKi64ONlmGFD3RN pccGFyfX0= CPT Code(s) (test code d6frdHTcGNYnvZGoMOCuFE = 3357) evufYtWTPxcGEbC5Nzjmho TSymIA9dUU3orOgcbGMocF AjNKWkZdUeo1euf933kJSb c2lmLSCZllwtgBs3yPjvL0 2du4Z0RaooB06ekCYjHPZ6 XLMnSUWivLUoBYKoDAF2DD RpjRLtD2tmJZXaPQ8gdjpm ZUllCNmxHAFdkEO1SKUlhY RgZ7UwWNKmOZgcETJdqkl2 NjBsEy5cjSCgsTkoDEfcCK JkXHBsYWluXGZzMjAgODgx KZwvHZb4ZlY8CXGcmq9= CLINICAL DATA (test n7hplGXeRYMftQMlJGOzJC code = 3355) vsoxTuXLVqsNPoP5Xdsldc VDmsXK9iUP8eaBdulTOaoX HzKPCaRxSka1hbf882yNNq s1xhTKONafziiSi3zTmeH2 5tk0P0SdclV60fsMFxTDC6 ETNuWZUfqXAaCSXbRGJ6YX TipVXoH2ukQIOpES7onxqr IZcvPFwgBJZxxXF4VEImqU CrF0MtONEeDVenMXHschh0 KwHqJj4esBBwfIcvCJyfLG JkXHBsYWluXGZzMjAgNTgg kQ2cNcz+Rlx+e2u4iMBcN9 7nFLMjy90rEQ0pLYZdFJSG JYNWGFNfwnSez9QzcwXwM7 QvFQTksCeeW1HbfNT0UDNz O8GsXPItp2LceIUkEOOwvk CsjGakiz49qG7sMOcsPN4e YYqiz9ZqucQxTFybdSlgks StPF66PFTqjClcp6oprjOj HvCfVwBeNv3yGZXwkEydes ouy5SfcZK6U5Kje43dkn2e BJU6jX9cPOI4IO30FDJbYB 3hXYAqs4TtOIEvzIOzsCBg cYYkFT1ebKNjwGDbFy1zIO Aul6qrT1kchGWjsT0xcAfy fvgIDvucTR4yVXKbxVkvEC J1nbYeg0InwoPaHBSksm6r CL82xPZjXCRrBANiHs9cKF L7YOs0RNHwp00eGJ8hMGBn CKC6xFLqzGKsFgMuBlCnfE teYAfedIKkqdjfhl7fzQ9u HC04FJLyh4JwWDOayyZko5 hnypOmDPQkAQ2wSZRhZOY8 cJ9mwZCrkA== SPECIMEN SOURCE (test r5afoMYyGHBwyIBoUPXoIM code = 3377) nxlvGjZVQunSMxG4Cpbfnh GUjsVC0dBE7tsDouyGLpnW ZwFQHpXlLcx8uiq175iAPn r8euJBOYtzuovCt7sPiwN3 3om1H4LnnwN81vjFSvCOO8 YGQjRKIhzMSdKOUpCAS6YY ZueOPzX9ldMMZkCQ8vzfak GRrdXYwwMFWorOL2LHIorA NuN2QpGHCxMBjoZWKrocz2 IwRtYh7cdVIspZqtUErnLV JkXHBsYWluXGZzMjAgTEVG VCBQTEVVUkFMIEZMVUlEXH Bhcn0= GROSS DESCRIPTION (test y7ghySSaQKQphCHkAJMmVS code = 8062258802) shfwQcLVXrkAUmT5Dbgdrh SOvmWI5kUH7ecYlnvIYvuL XkYWAyGeQsb8wtv409aZJl w0dtXLHZfawucOf8wXwzF9 4hp3C2LdguD07bsQCyGZR6 NDCdSGMdfQGaUAGtOJW5RS AeeGAdZ6ywGBCbGI3ghzbw DYokPMtpBOJqvJR0LXBfpW QuH9QoSNMjPDwxIXNqpby3 OtEsBi7pvALnsYamAAslZy cayIcwj5VetQHsWVjoBLXd DRQoNAxfFYVrT8TRXJOxIH Q3Wbo9OcAmAtQLTRC2ThYh DxiqEIPMSUUdUPe9LjJ3CE s7JwDJDhQoDDRjOBIsAFXj JMBuTT9tHSqfdUErFRoxMx scQYafS610IAgmBFUpC8Fo E5AoYFnsPUU0JAYoEmGhKG KfXK8BUtEnIAshWFO3XIQd TYi4XAh8LD6IWgDnUJPdLe zoIHx2ZSOcYHk4NQhzUK2H GPqtOSe5Jom8DqR2ATx3Oo BcXHQgMiBcXHNzIDMgXFxm cNHyKA1tvJeeGEIuLDIcZH apIPAxNjYmSV5kXCfydTTn bCwgTGVmdFxwYXJccGFyZF jsYvRlDNCxmFGOt3LtDYyr WHEhXXHqiVOIo6RjGOajwO PcizormnRoWQHjU9EyeoWr OPWcVQThuZqeUBHed13uhT BmbHVpZDsgcHJlcGFyZWQg LFOsrMOek1ZnfdLwLH1hMO CofOvkYcpjX4yxGBKbCLWb wBkcFXbenuWcFJooFF8skR zxNGVcjDylFubwR5qzr7Pi KUMayGIiTGckLEEauo7prZ pmNFP5LZPyCcRoTH2oFJC7 LuBiIuFlYhCke5wvmMjuj4 DbzOBkMD21ACHztSHcVEA4 JD7tiTafTVV2 MICROSCOPIC DESCRIPTION b0fnuHYwISGjtBPgQADlFL (test code = 3371) cegxYgFPKhjLRaI1Woepnh VFctOH6mBJ5yeBfqmPCllJ WvNUVfWrRid9jrv766lTEp d4zkIEEVtclkwYt8mMwzQ5 7kr3M9EwiwQ41seJTxCQR2 JBHdZCDrpUHbUHDqSQL6OM HhcWXaL8urCWNsHK9yuimx EMjuFYmlWELoyKD5SHNztK HtJ3DzMULcXSxwGBZeyrj1 HvJcJv7gvBTnyGoqPApsZX JkXHBsYWluXGZzMjAgUGVy Zk3zmYUoXwjxPIBcaZRzNX xwYXJ9 STATEMENT OF ADEQUACY Satisfactory (test code = 2757) Gross assessment was [facility] performed at ([facility], = 2777) Department of Pathology, [address] [place] [address], Technical component was [facility] performed at ([facility], = 6639) Department of Pathology, [address] [place] [address], Professional component [facility] was performed at ([facility], code = 2779) Department of Pathology, [address] [place] [address], [facility]2023-[facility] 19:31:37Medical Cytology Report Case: [id number] Authorizing Provider: Marisabel Ho MD Collected: 09:33 AM Ordering Location: [address] Received: 12/30/2022 01:05 PM Service Pathologist: Lilibeth Mello MD Specimen: Pleural, Left LEFT PLEURAL FLUID (CYTOSPINS AND CELL BLOCK): -NEGATIVE FOR MALIGNANCY - Benign and reactive mesothelial cells admixed with acute and chronic inflammation Signing Pathologist Direct Phone Line: [phone] signed by Cirilo Adan 01/03/2023 at 7:31 [id number], [phone] y.o. F with h/o decompensated CIFUENTES cirrhosis c/b esophageal varices, ascites, and hydrothorax, gallstones with recent admission 11/2022 for biliary obstruction s/p axios stent deemed not a surgical candidate for cholecystectomy, HTN, and asthma transferred from outside ER for evaluation and treatment of abdominal pain, volume overload, and shortness of breath.LEFTPLEURAL FLUIDA. Pleural, LeftReceived 1000 mls bloody fluid; prepared 4 cytospins and cell block(A2)(collodion bag) - the cell block was fixed in formalin at 13:50 on 12/30/2022 Performed.[facility], Department of Pathology, [address] [place] [address], [id number], Department of Pathology, [address] [place] [address], [facility], Department of Pathology, [address] [place] [address], HMMFNWOECNTLT METABOLIC [id number] 07:49:18 Test Item Value Reference Range Interpretation [...] 1092) DATA TO CALCULA TE ESTIMATED GFR. Clinical Trials Manager ID - DBOperator ID - MARIOSpecimen slightly [id number] 07:48:02 Test Item Value Reference Range Interpretation Comments MAGNESIUM (BEAKER) (test code = 1.7 mg/dL 1.6-2.6 627) Clinical Trials Manager ID - DBOperator ID - MARIOCOMPREHENSIVE METABOLIC [id number] 06:48:02 Test Item Value Reference Range Interpretation [...] 1092) DATA TO CALCULA TE ESTIMATED GFR. Clinical Trials Manager ID - HENRIQUE GSpecimen slightly [id number] 06:47:07 Test Item Value Reference Range Interpretation Comments MAGNESIUM (BEAKER) (test code = 1.8 mg/dL 1.6-2.6 627) Clinical Trials Manager ID - HENRIQUE GBody fluid culture + gram [id number] 17:31:13 Test Item Value Reference Range Interpretation Comments Result (test code = 6463-4) No growth Lab Interpretation (test code = Normal 67642-1) [facility] [id number] 17:31:13 Test Item Value Reference Range Interpretation Comments CULTURE (BEAKER) (test code = 1095) No growth BODY FLUID CULTURE + GRAM [id number] 17:31:13 Test Item Value Reference Range Interpretation Comments CULTURE (BEAKER) (test code = 1095) No growth COMPREHENSIVE METABOLIC [id number] 06:01:19 Test Item Value Reference Range Interpretation [...] 1092) DATA TO CALCULA TE ESTIMATED GFR. Clinical Trials Manager ID - ADMINSpecimen slightly ictericCALCIUM, [id number] 05:59:45 Test Item Value Reference Range Interpretation Comments CALCIUM IONIZED (BEAKER) (test 1.04 mmol/L 1.12-1.27 L code = 698) PH, BLOOD (BEAKER) (test code = 7.44 1810) [id number] 05:59:10 Test Item Value Reference Range Interpretation Comments MAGNESIUM (BEAKER) (test code = 1.9 mg/dL 1.6-2.6 627) Clinical Trials Manager ID - [id number] 05:59:10 Test Item Value Reference Range Interpretation Comments PHOSPHORUS (BEAKER) (test code = 2.6 mg/dL 2.3-4.7 604) Clinical Trials Manager ID - ADMINPROTHROMBIN TIME/[id number] 05:38:46 Test Item Value Reference Range Interpretation [...] mechanical heart valves.CBC W/PLT COUNT & AUTO [id number] 05:34:48 Test Item Value Reference Range Interpretation [...] code = 2801) 2D Echo W/Doppler(CW/PW/Color)2022-12-31 17:29:02Ejection FractionSLE ECHO [facility] 2022-12-31 12:46:54 Test Item Value Reference Range Interpretation Comments EMORY TITER (BEAKER) (test code = :160 1541) EMORY PATTERN (BEAKER) (test code = Homogeneous 1781) ANTI-NUCLEAR ANTIBODY (EMORY)2022-12-31 12:46:31 Test Item Value Reference Range Interpretation Comments ANTI-NUCLEAR ANTIBODY (EMORY) (BEAKER) Positive Negative A (test code = 418) Test performed by IFA method.MISCELLANEOUS LAB [id number] 09:11:47 Test Item Value Reference Range Interpretation Comments SCAN RESULT (test code = SEE SCANNED RESULTS 2402136) Protein, Total, Peritoneal [id number] 08:59:02PROTEIN, TOTAL, PERITONEAL FLUID12/31/2022 8:59 AM CDTPredixion Software DIAGNOSTIC [facility] CenterAlbum[facility], body [id number] 08:58:38Albumin, Fluid12/31/2022 8:58 AM CDUNIVERSITY OF MICHIGAN HEALTH LABORATORYReference Range: No Normals Assay performance has not been validated for this type of specimen.[facility] HospitalProtein, Total, Pleural [id number] 08:56:30PROTEIN, TOTAL, PLEURAL FLUID12/31/2022 8:56 AM CDTPredixion Software DIAGNOSTIC [facility] CenterLactate Dehydrogenase (LD), Pleural [id number] 08:56:06Lactate Dehydrogenase (LD), Pleural Fluid12/31/2022 8:56 AM CDTPredixion Software DIAGNOSTIC [facility] CenterGlucose Pleural [id number] 08:55:45Glucose, Pleural Fluid 12/31/2022 8:55 AM CDTPredixion Software DIAGNOSTIC [facility] Albumin Pleural Dptdk7347-29-12 08:54:47Albumin, Pleural Fluid12/31/2022 8:54 AM CDTPredixion Software DIAGNOSTIC [facility] CenterMISCELLANEOUS LAB [id number] 08:54:04 Test Item Value Reference Range Interpretation Comments SCAN RESULT (test code = SEE SCANNED RESULTS [id number]) Bilirubin, Rpkfv6417-72-82 08:54:04Scan Dkvqgg1012/31/2022 8:54 AM CDMemorial Herm[facility] Southwest HospitalCOMPREHENSIVE METABOLIC [id number] 05:33:20 Test Item Value Reference Range Interpretation [...] 1092) DATA TO CALCULA TE ESTIMATED GFR. Clinical Trials Manager ID - marioSpecimen slightly [id number] 05:31:31 Test Item Value Reference Range Interpretation Comments MAGNESIUM (BEAKER) (test code = 1.8 mg/dL 1.6-2.6 627) Clinical Trials Manager ID - ourwzEHPRHTKMTJ4207-71-18 05:31:31 Test Item Value Reference Range Interpretation Comments PHOSPHORUS (BEAKER) (test code = 2.4 mg/dL 2.3-4.7 604) Clinical Trials Manager ID - marioPROTHROMBIN TIME/[id number] 05:24:04 Test Item Value Reference Range Interpretation [...] mechanical heart valves.CBC W/PLT COUNT & AUTO [id number] 05:23:22 Test Item Value Reference Range Interpretation [...] PERCENT (BEAKER) (test code = 2801) CALCIUM, [id number] 05:07:52 Test Item Value Reference Range Interpretation Comments CALCIUM IONIZED (BEAKER) (test 1.05 mmol/L 1.12-1.27 L code = 698) PH, BLOOD (BEAKER) (test code = 7.45 1810) Amylase Peritoneal [id number] 18:35:20 Test Item Value Reference Range Interpretation [...] specimen).This test has been modified from the factory maintenance technician's instructions and its performance characteristics were determined by [facility]. The laboratory is regulated under CLIA as qualified to perform high-complexity testing. This test has not been cleared or approved by the U.S. Food and Drug Administration. The reference intervals and other method performance specifications are unavailable for amylase in peritoneal fluid. Comparison of this result with the blood amylase is recommended. [facility] CenterAMYL[facility] PERITONEAL [id number] 18:35:20 Test Item Value Reference Range Interpretation Comments AMYLASE, PERITONEAL FLUID (BEAKER) 17 (test code = 1818383) Amylase activity in peritoneal fluids of non-pancreatic origin is often less than or equal to the amylase activity in blood, whereas elevated amylase activity has been reported in fluid of pancreatic origin (five-folds or higher compared to contemporaneously collected blood specimen).This test has been modified from the factory maintenance technician's instructions and its performance characteristics were determined by [facility]. The laboratory is regulated under CLIA as qualified to perform high-complexity testing. This test has not been cleared or approved by the U.S. Food and Drug Administration. The reference intervals and other method performance specifications are unavailable for amylase in peritoneal fluid. Comparison of this result with the blood amylase is recommended.[id number] 18:13:56 Test Item Value Reference Range Interpretation Comments FERRITIN (BEAKER) (test code = 273.41 ng/mL 361) Clinical Trials Manager ID - ADMINHEPATITIS B SURFACE [id number] 17:41:49 Test Item Value Reference Range Interpretation Comments HEPATITIS B SURFACE ANTIBODY < mIU/mL <8.0 (BEAKER) (test code = 647) Clinical Trials Manager ID - ADMINHEPATITIS A ANTIBODY, [id number] 17:41:49 Test Item Value Reference Range Interpretation Comments HEPATITIS A IGG ANTIBODY (BEAKER) Reactive Nonreactive A (test code = 2797) Clinical Trials Manager ID - ADMINALPHA FETOPROTEIN (AFP), TUMOR [id number] 17:40:44 Test Item Value Reference Range Interpretation Comments ALPHA-FETOPROTEIN (BEAKER) (test 3.2 ng/mL <10.0 code = 1094) Clinical Trials Manager ID - ADMINHEPATITIS B CORE ANTIBODY, [id number] 17:40:44 Test Item Value Reference Range Interpretation Comments HEPATITIS B CORE TOTAL ANTIBODY Nonreactive Nonreactive (BEAKER) (test code = 497) Clinical Trials Manager ID - ADMINHEPATITIS B SURFACE [id number] 17:40:43 Test Item Value Reference Range Interpretation Comments HEPATITIS B SURFACE ANTIGEN (2) Nonreactive Nonreactive (BEAKER) (test code = 2585) Specimen is considered negative for HBsAg.HEPATITIS C [id number] 17:39:02 Test Item Value Reference Range Interpretation Comments HEPATITIS C ANTIBODY (BEAKER) Nonreactive Nonreactive (test code = 367) Clinical Trials Manager ID - ADMINIRON, TIBC, % SAT. (WITHOUT FERRITIN)2022-12-30 17:19:01 Test Item Value Reference Range Interpretation Comments IRON (BEAKER) (test code = 547) 81.0 ug/dL 40.0-160.0 TOTAL IRON BINDING CAPACITY 108 ug/dL 250-450 L (BEAKER) (test code = 769) IRON % SATURATION (2) (BEAKER) 75 % 20-55 H (test code = 2590) Clinical Trials Manager ID - ADMINCOMPREHENSIVE METABOLIC [id number] 16:25:30 Test Item Value Reference Range Interpretation [...] 1092) DATA TO CALCULA TE ESTIMATED GFR. Clinical Trials Manager ID - ADMINSpecimen moderately ictericLACTATE DEHYDROGENASE (LDH) 2022-12-30 16:17:54 Test Item Value Reference Range Interpretation Comments LACTATE DEHYDROGENASE (BEAKER) (test 246 U/L 125-220 H code = 635) Clinical Trials Manager ID - [id number] 16:17:53 Test Item Value Reference Range Interpretation Comments MAGNESIUM (BEAKER) (test code = 1.8 mg/dL 1.6-2.6 627) Clinical Trials Manager ID - [id number] 16:17:53 Test Item Value Reference Range Interpretation Comments PHOSPHORUS (BEAKER) (test code = 2.7 mg/dL 2.3-4.7 604) Clinical Trials Manager ID - JIJGZUEDGT-9-UFBHMAZSTIU5390-04-20 16:17:14 Test Item Value Reference Range Interpretation Comments ALPHA-1 ANTITRYPSIN (BEAKER) 61.00 mg/dL 90.00-200.00 L (test code = 502) Clinical Trials Manager ID - ADMINPROTHROMBIN TIME/[id number] 16:09:26 Test Item Value Reference Range Interpretation [...] mechanical heart valves.CBC W/PLT COUNT & AUTO [id number] 16:06:15 Test Item Value Reference Range Interpretation [...] PERCENT (BEAKER) (test code = 2801) CALCIUM, [id number] 16:03:36 Test Item Value Reference Range Interpretation Comments CALCIUM IONIZED (BEAKER) (test 1.07 mmol/L 1.12-1.27 L code = 698) PH, BLOOD (BEAKER) (test code = 7.38 1810) RAD, CHEST, 1 VIEW, NON [id number] 15:04:00SAURABH NICOLE MD Reason for exam:->post left thoracentesis R/O pneumothoraxShould this beperformed at the bedside?->Yes [facility] : 1965 Sex: UFINAL REPORT Chest, 1 view, 12/30/2022 2:23 PM. History: Post left thoracentesis. Comparison: 12/29/2022. Discussion: The cardiac silhouette is stable. There is decreased left pleuroparenchymal opacity. There is no evidence of a pneumothorax. The soft tissues and osseous structures are intact. IMPRESSION: No evidence of complication post left thoracentesis. Signed: Chano Enriquez Verified Date/Time: 12/30/2022 15:04:41 Reading Location: [facility] Radiology Reading Room U/S, [id number] 14:59:00SAURABH NICOLE MD Labs to be ordered:->Body Fluid Culture (w/Gram Stain, C\\T\\S) Labs to be ordered:->Cell Count Reason for exam:->abdominal pain, cirrhosis Should this be performed at the bedside?->No [facility] 1965 Sex: UFINAL REPORT Ultrasound guided paracentesis. Clinical History: Ascites. Sedation: None. Jeeper Operator: Danuta Taylor PA-C Psychology Physician: None. Estimated Blood Loss: < 1 cc. [...] marked, and the anterior abdominal wall was evaluated with color Doppler to exclude presence of blood vessels traversing the area, the skin was prepped anddraped in the usual sterile manner. After local anesthesia was achieved with 2% lidocaine, a 5 Lithuanian one-step catheter was advanced into the peritoneal cavity under ultrasound guidance. After completion of drainage, the catheter was removed. There was no evidence of complication. Impression:Successful ultrasound guided paracentesis. Signed: Lee Diaz Verified Date/Time: 12/30/2022 14:59:31 Reading Location: [address] Ultrasound Reading Room Body fluid cell count with quayxqksyuoq7614-68-09 14:42:21 Test Item Value Reference Range Interpretation Comments Appearance (test code Hazy Clear A = 9335-1) Color (test code = [place] Colorless, Straw A 6824-7) RBCs (test code = 35386 See_Comment H [Automate d 01010-8) message] The system which generated this result [...] See_Comment H [Automat ed (test code = 05242-3) messag e] The system which generated this result transmit joanna reference range : <=5 /cu mm. The reference range was not used to interpret this result as normal/abnormal . Adjusted lining 63 See_Comment H [Automated cells/Others (test message] The code = 64874-4) system which generated this result transmit joanna reference range : <=1 /cu mm. The reference range was not used to interpret this result as normal/abnormal . % Segs (test code = 29 % 58479-6) % Lymphs (test code = 39 % 51953-2) % Monos (test code = 31 % 15224-7) % Eos (test code = 1 % 55572-0) % Baso (test code = 0 % 15492-6) Container Body Fluid Sterile Vial (test code = 2873) Lab Interpretation Abnormal (test code = 87851-6) [facility] WITH [id number] 14:42:21 Test Item Value Reference Range Interpretation Comments APPEARANCE FLUID (BEAKER) (test Hazy Clear A code = 510) COLOR FLUID (BEAKER) (test code [place] Colorless, Straw A = 511) RBC FLUID (BEAKER) (test code = 52474 /cu mm <=1 H 513) TOTAL NUCLEATED [...] Sterile Vial (test code = 2873) CT, [id number] 12:35:00SAURABH NICOLE MD Unlisted Reason for Exam - Click Yes and Enter Reason Below->NoProtocol Please Specify:->Standard ProtocolWill this procedure require oral contrast?->No [facility] 1965 Sex: UFINAL [...] 12:35 PM BODY FLUID CELL COUNT WITH [id number] 11:08:18 Test Item Value Reference Range Interpretation Comments APPEARANCE FLUID (BEAKER) (test Cloudy Clear A code = 510) COLOR FLUID (BEAKER) (test code Red Colorless, Straw A = 511) RBC FLUID (BEAKER) (test code = 13392 /cu mm <=1 H 513) TOTAL NUCLEATED [...] Vial (test code = 2873) Protein, random [id number] 22:24:47 Test Item Value Reference Range Interpretation Comments Protein, Urine (test code 47 mg/dL 0-14 H = 2888-6) EDILBERTO (test code = EDILBERTO) Clinical Trials Manager ID - ADMIN Lab Interpretation (test Abnormal code = 73575-1) [facility]PROTE[facility], RANDOM [id number] 22:24:47 Test Item Value Reference Range Interpretation Comments PROTEIN, URINE (BEAKER) (test code = 47 mg/dL 0-14 H 1569) Clinical Trials Manager ID - ADMINCreatinine, random [id number] 22:24:46 Test Item Value Reference Range Interpretation Comments Creatinine, Ur 176.5 mg/dL (test code = 2161-8) EDILBERTO (test code = Reference Range: No EDILBERTO) NormalsOperator ID - ADMIN [facility] HospitalCREATININE, RANDOM [id number] 22:24:46 Test Item Value Reference Range Interpretation Comments CREATININE URINE (BEAKER) (test 176.5 mg/dL code = 375) Reference Range: No NormalsOperator ID - ADMINUrinalysis w/Liwkcpvpbgc9662-81-03 22:11:30 Test Item Value Reference Range Interpretation Comments Color, UA (test code Yellow = 5778-6) Clarity, UA (test Hazy code = 5767-9) Specific [place], UA 1.046 1.001-1.035 H (test code = 5811-5) pH, UA (test code = 6.5 5.0-8.0 5803-2) Protein, UA (test 70 mg/dL Negative A code = 17890-0) Glucose, UA (test Negative Negative code = 365) Ketones, UA (test Negative Negative code = 2514-8) Bilirubin, UA (test Negative Negative code = 56957-6) Blood, UA (test code Large Negative A = 37933-0) Nitrite, UA (test Negative Negative code = 5802-4) Leukocytes, UA (test Negative Negative code = 5799-2) Urobilinogen, UA 0.2 0.2-1.0 (test code = 71751-5) RBC, UA (test code = 138 See_Comment [Autom ated 31471-0) message] The system which generated this result [...] . Bacteria, UA (test Rare code = 09466-6) Mucus (test code = Few 8247-9) Squam Epithel, UA 3 See_Comment [Automate d (test code = 38490-0) venkat burris] The system which generated this result transmit joanna reference range : /HPF. The reference range was not used to interpret this result as normal/abnormal . Specimen Source (test Urine, Clean code = 2795) Catch EDILBERTO (test code = EDILBERTO) Clinical Trials Manager ID - [auto]Clinical Trials Manager ID - tech Lab Interpretation Abnormal (test code = 32522-1) [facility]URINALYSIS W/ [id number] 22:11:30 Test Item Value Reference Range Interpretation [...] (test code Urine, Clean Catch = 2795) Clinical Trials Manager ID - [auto]Clinical Trials Manager ID - d[id number] 17:38:31 Test Item Value Reference Range Interpretation Comments PROCALCITONIN (BEAKER) (test code = < ng/mL <0.05 3036) SEPSIS RISK (ng/mL)Low: 0.05-0.50Intermediate: 0.51-2.00High: >=2.01LACTIC ACID, [id number] 17:22:42 Test Item Value Reference Range Interpretation Comments LACTATE BLOOD VENOUS 2.07 mmol/L 0.50-2.00 H Specime n slightly (2) (BEAKER) (test hemolyzed code = 2872) Clinical Trials Manager ID - BSSpecimen slightly ictericRAD, CHEST, 1 VIEW, NON [id number] 16:10:00SAURABH NICOLE MD Reason for exam:->evaluate left pleural effusionShould this be performedat the bedside?->Yes [facility] : 1965 Sex: FFINAL REPORT [...] 31 pg/mL 0-100 (test code = 700) Clinical Trials Manager ID - BSCOMPREHENSIVE METABOLIC [id number] 14:18:45 Test Item Value Reference Range Interpretation [...] not appl icable for dialysis patien ts Clinical Trials Manager ID - ADMINSpecimen slightly ictericPROTHROMBIN TIME/[id number] 13:44:11 Test Item Value Reference Range Interpretation Comments PROTIME (BEAKER) (test code = 20.8 seconds 11.9-14.2 H 759) INR (BEAKER) (test code = 370) 1.84 <=5.90 RECOMMENDED COUMADIN/WARFARIN INR THERAPY RANGESSTANDARD DOSE: 2.0 - 3.0 Includes: PROPHYLAXIS for venous thrombosis, systemic embolization; TREATMENT for venous thrombosis and/or pulmonary embolus.HIGH RISK: Target INR is 2.5-3.5 for patients with mechanical heart valves.[id number] 13:43:55 Test Item Value Reference Range Interpretation Comments MAGNESIUM (BEAKER) (test code = 1.8 mg/dL 1.6-2.6 627) Clinical Trials Manager ID - ADMINCBC W/PLT COUNT & AUTO [id number] 13:21:51 Test Item Value Reference Range Interpretation [...] PERCENT (BEAKER) (test code = 2801) Prepare [id number] 23:54:00 Test Item Value Reference Range Interpretation Comments Unit ABO (test code = 1951629) A Pos UNIT NUMBER (test code = [id number] 934-0) Status (test code = 7542868) TX_TIMEINCHART Blood Bank Product (test code FFP = 2263) PRODUCT CODE (test code = N4776G28 933-2) [facility] [id number] 23:54:00 Test Item Value Reference Range Interpretation Comments Unit ABO (test code = 0828255) A Pos UNIT NUMBER (test code = [id number] 934-0) Status (test code = 0969432) TX_TIMEINCHART Blood Bank Product (test code FFP = 2263) PRODUCT CODE (test code = M2402H11 933-2) [facility] [id number] 23:54:00 Test Item Value Reference Range Interpretation Comments Unit ABO (test code = 6510036) A Pos UNIT NUMBER (test code = [id number] 934-0) Status (test code = 4535923) TX_TIMEINCHART Blood Bank Product (test code FFP = 2263) PRODUCT CODE (test code = N9262A69 933-2) [facility] HospitalFine Needle Aspirate by Ijddvtiqb5580-37-05 09:58:30 Test Item Value Reference Range Interpretation Comments Case Report (test code Medical Cytology = 104) Report Case: [id number] Authorizing Provider: Arcenio Lazo Collected: 11/30/2022 08:48 AM Ordering Location: [address] Received: 11/30/2022 03:09 PM Service Pathologist: Simon Corona MD Specimen: Lymph Node, liver, marguerite-portal lymph node biopsy via FNA DIAGNOSIS (test code = t3ikwBTxKSHxt8ucLAIrcJ 3220) FuZzEwMzNcZnRuYmpcdWMx IHtccnRmMVxlcGljMTAyMD CsNY1xpPkmvLl5aHdcNBKg thW6mWToBKgpa4moLNK9t5 mabyznMQEvHIwnUs6onEZg bMijKfHcBVVoOTp9kO47HS CqdY0edPGuRWr6GDPisVVh ujUaKfDuDJUqjCRocHJ0PO GlPO2nbktmRCbsOJxtMECl tqR5QACapBGaO9DgWHRzNM 3lqpsqYJW2NDbaXBCcZJP5 XlXlCSLkb6Rhndg2JcJinU FyZFxwbGFpblxmczIwIExZ INVUWQ5YMKZuLMwLIxZQOS BNQejpNB8QVNUYFZAYNY6E U5ujQwgZYFKUUAUyV2oPA0 TBOC3EGTTBEIAIBOdPGDXU F0RGNUvfmYWcJGHoJL4lHs YXCXRPQnCzPd8ZEK3ILIqA PgGRRKNZAHaXRk6xvOOjSZ CeCU0qD2HGBiLaJYlTXTdL RXGxLAuWQ1HQLwduUAU1h1 xydGYxXHNzdGUxODAwMFxh bnNpXGRlZmxhbmcxMDMzXG V9flIyOEAwZSsdVULhVOoq By9vyQPhzXryZoZyEFYcn1 bycdXCcsbzvCs7k1dvIGNa TbJ6iRHdAXniB9nhecNdcM SmMGRzDPq3iO51VVHtpR1v sEJfMNagdqThRdS3GAydZV TeDrA7FQBnmZQqGATtI0ul ZWQwXGdyZWVuMFxibHVlMC A8mQrcf3C4eAOllIYueBja IyLdHaKkWgXWs1JxKXy2zV nrW9CnKWHjXrJ0kQVoLYZq CDyiNLIsZHQjhuZ1jN26MA svzyU5oPSsu0Isv84oc318 pI3jzZAxLAB1LRXaTYEbcU TbDDEsJKV7IBQmcZYdC5kv RGNaLI6gnevmPOwrNOalVZ AevDE7SFJojOElX9FyEWGy IWorNHTeqse5EmTuPx5gyE KiqYkbJHgak4cla6migBVm Pyo8BGQlBzVdSemdRMydg7 Nsq9lgMFVfve5qJON3bUXj qCfdu5U3zFOpXQYjbAPcKG RhBW1llEYhQOMbvS3ihrbk XHBnYnJkcmhlYWRccGdicm MsJy1jlUglKBZ6HOjmR8wp xX3uNpN2LRybV9jnaG1bLV r1OBdcEJBbdFA6ofG3RHRf tBEeR4RgaK5wRHFaTR2nnk s0d3jhYYQ0DXvuYWWlZaS7 gaE9WJCviTLjTJEukNoqGL tfz771JQR7HkNzJUPco1Lf Z5MjyYweP02ydJczL85qJD TvjLuxeP2dbApolG3uJeXj LfHqKNlpbTpjWG4pAYZsZ0 pwiTCtQUCjOSSeZ0wbGsTr pH0yxPmtUFqklwFgGAGbLg k3YSHllDGuKXIjLtf8FOYo MPRxC73cbsxxUXJ9vC0oa1 wzx0FqCKdcDWH3MLBoc59t GGrwnmE4NYsrNz37TSaiUE H4FXbmNBB3dT== CPT Code(s) (test code i7jxwSEcWPSkjAGfNHRlMA = 3357) ffanGqYBBzwRQjK3Sytjqz QLiyWL3jIX9mtKpzwQJjmM XkQKBjQfKbe3gfw119nFAk p9roGIADjydojZd9vWdfJ1 7sa3X4KzqyW71wnKMqURA0 FNGuOWWejDCyOPEgZMY7IP EpwFEdV6qqTJIqRL9aeibj PButQCmrGBVloDO8QVEguP RhM3QlHCYnTZaoWADbvqo6 WlVrOx8kjKPrjCorPMlhYP JkXHBsYWluXGZzMjAgODgx VuByXTa9MxI2ZAYqhg1= CLINICAL DATA (test h1efhDUqNDQskBItTLLrAR code = 3359) digbQrCQPmgJCkE7Lstwxp EPmcYK1jOS0xsJwsnDNoaI JuIVArTlPrq3msa838vTTd z7kgWDOVpybhsBu9vKggF4 6pd4Q5BkctQ23umHBuMLA0 UTCoVKNzcDXoMJBdCKV0PQ SuySPuU0nuLMUpYU2ivrmx ESmiDNrqNYBdtUU9OWIegW RnV9KtOHHiJMxxUEZnpes3 FtPtXa8ckXKukFirBMmbWS JkXHBsYWluXGZzMjAgNTgg mO9wIgn+Rlx+g5d6qPZOPG YCWCLtngUiz0Bcdzmis8dh ZSRqGBHntnEkRCU7ugVGX7 jpi0m4zLL4kNQfygKlFZBk SZTpwN4mNL5gQYNCROEePP luIHggNCBkYXlzIGFuZCB3 RETfCp45ffVhyH6cjBX9FN Jmz6iboEbbOWMnZBGip96z OTKiPGTaxgLfxF6lKLY5d2 TbtBjyR2Rpu6fuUT9mtE2e zMSsnHWrvDAli62mjK5aM2 kgUprrcBs4kyA4hyPwr0Hx uqTjLKK0erJTC3tTDpNtj9 DeNZkJPq7hzqzyVWI5 SPECIMEN SOURCE (test y9ljgZVgTDMacFYuYHUgJU code = 3377) yhgqGkYQOhdZXgJ7Rtcmdc DPjrYE7eGP5jdHznpRMlgX UtQDLpKnVgc3iid799dCPb d0zkXVCBgczpzGv6zQqnE5 0ke2M3ZnsvI92jsOCeZHY6 KUEhGUCbqRAzSZTdXBS2ZZ PrhJFsE0ggAIQsBJ0jimio QIucSMwoGJFkaHL3VMYpkL LaT3IfPUAqMMzsNVXtbfl4 LfSvCs4xeREcnOzcTIqrBH JkXHBsYWluXGZzMjAgTFlN RHhnNc5VYVxiKAzRGEPzNB QWSqxcEQ9VHPJUNFAUO4AP WSBGTkFccGFyfQ== GROSS DESCRIPTION (test f7aarYLuTQUiaIEEPLUxVT code = [id number]) KvHQ1siInypZd2jOokUIEs duC1vJIsDXkaq4twZIN8j1 ktmpSTMpbmUUXpIZ2gTOwl KDTtYD1cDeRiKVGgByFoTK BhcGVydzEyMjQwXHBhcGVy qIQ2TZYfZZ8ifpghZRnkGY kfASTdhgG3AAZvvMUoD5Ge UIJpEA3obalzZGD4SXPDSx ypXg8pwRSjtVtnIzLeQnDv YXJzZXQwXGZuaWwgQXJpYW j2qB5UEqesWYK4ICPHCwrf IjlujFays6TbdLUjFIDjLT xcaWQgNTEwMDAgXFxkYiBP SsMmRpA3PFMlZmQ7LpV0VU k4YSDKPJCoELGvSpMkOUZ1 KGo5NTDoPD4pXIhyjDDrFR ejCycdTMnoT032DDbjZSIy K1CdF5YeSYhmMjJsLTiaDE JtGVPeXJydNVYkN9XLCJGo NMDfHNW9DGQmPIk9QUmoM4 JVJEXdDVEmDvwzTaM4PcG2 WCx1YZKMDi0gYfp6ODb8DS V9VTH1AAt5BQevyQAnDMke b7RrFyXkEVOdODzppqN9AQ OqjyVnUBuqxMcypZ7sYnDj SjENEzVMhU2ipDMRb3QyGK QxwyZIReylWHKcWS8ZYJKj RIjdFZUxFcTeiDCjM5pkDU KbT95aj4ZIh8IpAC8JLDm4 rmGseacsfB6sNJYpgkZbDE pcZnMyMCBSZWNlaXZlZCAx TGAniCBoeL0xK8m6h2ReE4 ggcmVkOyBwcmVwYXJlZCA0 AMS3wA6ydZhbovnqR0LclX OeyC1cdrKuNAQcSZrpKGgb LSFlr4KqRDMrLBVqVQWykh Iau2PwFUhrziFkkMBvAGzc NSBvbiAzLzIxLzIwMjMpXH BhciANClxzYTMwXGVwaWNY n2PbWVCOEsimwXreNmOgoO YlAbM0XSQufEBkNBM5BE0i wLymKVAwI3FsM6UzukT9ON IfwiJAXpawYCRgEL6FWEBd MjIgDQp9 MICROSCOPIC DESCRIPTION g0nwwGHoXIAdtRIkKBOeZP (test code = 3371) mrlwBbXOSqyWOrA6Tnvhjt PCflNL4dLZ4scEowzFOxwS RnVFZtAiXfn5dlc658wHLj v3vsFWRBsxhnoSi4pMndY2 8oe9Y5MhnmP69ihFWgIVT4 XYDcEIKclBCeOZWgFMZ2VV GobIYxP3wuDYBoSM6giiij QMtuOGssQSTjdWK2QYMnsF TvS2IqFZRzPFznTHGklkn8 LfFxZg7ntVDgbMhwRQtnJS JkXHBsYWluXGZzMjAgUGVy Be9tzBKbFoupSXTfaOIbDB xwYXJ9 Gross assessment was [facility] performed at ([facility], = 2777) Department of Pathology, [address] [place] [address], Technical component was [facility] performed at ([facility], = 2778) Department of Pathology, [address] [place] [address], Professional component [facility] was performed at ([facility], code = 2779) Department of Pathology, [address] [place] [address], [facility] Aspirate by Ftssuixce6286-36-29 09:58:30 Test Item Value Reference Range Interpretation Comments Case Report (test code Medical Cytology = 104) Report Case: [id number] Authorizing Provider: Arcenio Lazo Collected: 11/30/2022 08:48 AM Ordering Location: [address] Received: 11/30/2022 03:09 PM Service Pathologist: Simon Corona MD Specimen: Lymph Node, liver, marguerite-portal lymph node biopsy via FNA DIAGNOSIS (test code = [id number] 3220) FuZzEwMzNcZnRuYmpcdWMx IHtccnRmMVxlcGljMTAyMD XjFN1uxLpchAb3dAsrXXLt ypV3vKLgQIksd0ncAGI2a9 htojpdQKDyYDzeJg9soPJj gBpoSyRjJZRnADq4qQ96CQ AyrY4njFPpVEn5BTFrvTXk aeBpVtHfFSWilUCrcXW3XV OtBU5rqrtyYTxoIOxzWSQg qhM2IQTbtVUiJ6KoKJHqJH 6tmmitZEG3EJolIGFzCKP9 WbHiPIXag3Nndqq7BiUabW FyZFxwbGFpblxmczIwIExZ KQSJKW6EEWWnUBfIIjCQCQ RRHdaxOL1FASVMEQSGMY6G Z9xtHvdGHJKXEKOzD6lGW2 ZCCV2TJKNSCWZQLWjJWIIM T5PYKRxsmBBtPMZlGN6nRk PLBXMWPhNhHc7UCT9MFDaH HhCQIFQQSElCLa6rkSQsWF BaGX6pI1IQNuEnFIyHWDyP VVLfDHxGN4ANEsnxWNS4g7 xydGYxXHNzdGUxODAwMFxh bnNpXGRlZmxhbmcxMDMzXG L9zuLzGKYvGKqzVHMdVWyg Qa7wnCCwrCijXlMtZHJdt6 svsgOJkazwbKw5n3gnYYSy YcR7vCPvUCzbG5hxjvUmpK MtAMVtWLd9fK19SZWznP5v yFCsROjbymZgQgY9WAyjLC ZaVeL6MKXwiUTrNEOoZ0vr ZWQwXGdyZWVuMFxibHVlMC N5yUwkr4B1sHCplWXqzOrh YiHvHvLqByWZo2UtNJb3oU yzQ6ZuRZRfPkD0nNOcPDDn VHuzEQBaGBRxzyP3yI80DS vcscB2jMGsj3Zxj90le068 zF7xuUBzUSX8ZJBhJOBmdA HdSMNzXFH3SSVwcBYfQ8eh ZXXvMY4mbbtbYWjjJLhtCJ OyyFD9VUDcvTHxT8WgRTFj BHrkNNEkyna5HfKqMq4kiD VicYbeIOocz3fty0wwcLVc Jtg5AZNeSvCuBehlHVzib0 Mga7flATYbnp8lOPO3qLZy eFwbc4P3rVMdFZVsrVIdZE FtIQ0fiIIxCQAqoT7fdxdj XHBnYnJkcmhlYWRccGdicm XfVw2kpAitIPJ5OYgdF0to vQ8iJjL9ZEyqH2qbxI5hSL k3VVamTGVkmZH5lwM2IATx iFZpV0SszS5bUYQfJL0pet q4y1pzJXN0YVbtNJQfYfY5 geG9HRUinSZzXSKihUdhIX cfv012MPP3VbTgUCZlr5Pu D8AcfWuhS99lqWufW06wST ZeiWfmoM1ecIilkG5eMuHu OhEnYFlfeVrmKQ6cOUXoW4 lmrHCbRLMlWRMrV3dsOuIm fK1oxWrvWWggwtVhKHHsUh j9DCGjeVPiQYYwNmq6MNRl JVYoU86qvtulGQJ5lQ0xv4 kok0ZxMMuyJSX9RKQas59r XWwlcfG0ZRzoIb48ZRdaDH C8SSbyWTZ1bK== CPT Code(s) (test code i2elvUDmJRNkbIGeSTXoCA = 3357) qsydYnWXUszSWvJ8Aggtka NEzhXW7hCM1mxHtmcSXuqO FpUQYzUdRvm7vbc378jTHn m9miKYHNbmllrGt1aXevF2 1vi8B4DigbL49wnVCzNOP1 RBAtDFOtqCGuRWIpKZT3EO LuwGAzM8csAEQuFH3ucnjk ZJpxHUwlGRWyvCB7MQVkuE NqD8NjIZGzHEhaTMArcju4 QgIiVq6slBUrpKjvMBunVG JkXHBsYWluXGZzMjAgODgx OmNbWZz7UgP4PQTqgu6= CLINICAL DATA (test w6qehEDwVCJcrZEtHJKdVK code = 3355) ulbsPxMOWbfATjI7Fciznx XNriKB3lLT9dhTezoBSwqB MuJLRzFtUrz5hkj434iGSg q1uwMNZXwyjleYv8bXjjV4 8pr0R5UlpsD24qhWTjWWO9 CWEjNGMytPWcQTOjFXX5QI NzlWUhV9taRPSrTA4prcjm LFpbBCitQGBamXU9JCKizJ XwA9YwMEBjJZfeSSEhuzf8 BnXzGg7sbBXhdEavSFmyOU JkXHBsYWluXGZzMjAgNTgg oS9rMrh+Rlx+s9g7jCLAZZ LLPNOfeeEog1Zqktmyh7va IYEbCOOckcUtEMU4fzWXA1 xmi0j0cGD9pHLjjpDlRGVc KEXdoY3sTP4iGFYFQNMpCW luIHggNCBkYXlzIGFuZCB3 RFZdAj38qzLhqW9luSJ9LJ Hkj6fnvLqqOBGfTLRct22q AWWkSBEhfwZccS4qZII0a7 KfjXtoR9Isp0poUG7uqV5n pJPrjPVnxAWsr13hjJ7mW7 bxVwlnhXk5kxU6jcFkr0Sg evSvRBI3hyZHN0wHXdJzj1 TmQKyEXy9epvenJBQ1 SPECIMEN SOURCE (test u7nzmGRsEUFjkAWhNIMhEW code = 3377) bozbAsTQOxaNUsU2Aeksdh BBwdBK3hIH9ajGgthLBsyE IsIZSrTtImd2rwc645hZGb c5jwVCRAcgnwiUr6kWvwT7 8dr9Z6UdwjW75ltAAcSZN3 COWeFJMxzZKhMXFbDGC0JV WgvRUsN3mcYIYxQC8bsexq LYdmOMrbNKPhsCZ7SLWjtZ XlI6QbGCJwJNlqVXRfdwo2 TzOkFq3avAYpsPclGBwaIN JkXHBsYWluXGZzMjAgTFlN LGdmCo2UYCftQMbDCFIeCA AAHcguWZ7BMWWMFCGHT5FZ WSBGTkFccGFyfQ== GROSS DESCRIPTION (test f3plsLNzMKWbgMKLMGDqWJ code = [id number]) HdYU2twSuajIo8sMavVGEw jvF1uSIzJMiwf4uoTYO4o5 wvmuLBWecoRHTfFT1zIIdj TMBcOK9aTmCgGNLcDcQfFW BhcGVydzEyMjQwXHBhcGVy sGR4EVTpDD7wqdkeAPliFS mhJQWrebH3EAWvzOGnY1Fu MNGwZB3fthbcEYM1BDSWJj rrNg1tfXHqcPdoKhUwTkHs YXJzZXQwXGZuaWwgQXJpYW w3vZ8YOlqgJBM3TOFXEuxh AbzzdJvwf7QmnBQaZOYzJK xcaWQgNTEwMDAgXFxkYiBP QeTkHcT0HWOnLcR8XnF4NQ s8QZWQYJEpAUMkYlQfIIS9 SVc9CGWhFC8pMNcnkSFjBL rpOjohJZtwI029VOcxPJBj J0RcK8DaUHtqVbOfLEcnJA AtOSEbFPvrKXShD2PKFKVh UQIzDQX6AURxFPw2CBoyC7 XDVAEpVXMoCekzMnQ6XcN3 SNt5TEKETi7cBbd8DAk9JK L3CGA0OMa4NLlktUOpBOya g0OkDlItABGwPZsknaV4MQ MmbfQmZJhsnEjxnD4nAhFr VaLTPfCBmM4jhKKOd1TdCF GfngRCHhzdVMEzUV3LQBPt OYxfLDEtDxQzyCUaT1wyBV KcD47eg1KCh2QyOD5OQFc8 rmRjwgadiA5eKSKpppFgJG pcZnMyMCBSZWNlaXZlZCAx MGQwyEBttO4eC8u9z0ToU2 ggcmVkOyBwcmVwYXJlZCA0 HCV5uP5ynTberidvF5QveV IejY4hejSmTZBjZZsjVHju NNLzr4MuEEZxSQIiMSMiqx Xow7AwBKlgayQmmGJtDSzb NSBvbiAzLzIxLzIwMjMpXH BhciANClxzYTMwXGVwaWNY b3MrXSATSbqxcFqmBhIvtN AjVuM1ZOFocPVhREY0GI0x gZvuWXBaQ2JyL5LxfaE6WJ TztzEDMijaGGDuWM1UAKBz MjIgDQp9 MICROSCOPIC DESCRIPTION d9qksXZiDYOrtKMiMIMxRV (test code = 3371) wqvwZjKNJqpMVlQ1Vgqtwe NQqkIV9iIW3adXpfeXKycW XgBMMmNwFro1zdu148kYQx m4obGWSZuqewaZl9dFvrG1 8hp6J5OahqO70bvAAhFVY4 GYHnXVDrpNJpIXDcVHP5HB IyyGPaA3xrEYYvST5twbgh SCuaSXpeHBVxlTV7LJNseR NxW1YiSTZdLIjsFVRyhoy3 LnRhNl5wwNWvbScoTIfvIE JkXHBsYWluXGZzMjAgUGVy Fc6bsUGhDwnaDHNiyCFfDM xwYXJ9 Gross assessment was [facility] performed at ([facility], = 2777) Department of Pathology, [address] [place] [address] 6[address], Technical component was [facility] performed at ([facility], = 2778) Department of Pathology, [address] [place] [address] 33942, Professional component [facility] was performed at ([facility], code = 2779) Department of Pathology, [address] [place] [address], [facility] HospitalFine [facility]le Aspirate by [id number] 09:58:30 Test Item Value Reference Range Interpretation Comments Case Report (test code Medical Cytology = 104) Report Case: [id number] Authorizing Provider: Arcneio Lazo Collected: 11/30/2022 08:48 AM Ordering Location: [address] Received: 11/30/2022 03:09 PM Service Pathologist: Simon Corona MD Specimen: Lymph Node, liver, marguerite-portal lymph node biopsy via FNA DIAGNOSIS (test code = w3rpgENdBVTgy2vbAQZtcX 3220) FuZzEwMzNcZnRuYmpcdWMx IHtccnRmMVxlcGljMTAyMD CcZV5dpFyubBl9gZkxLORl qvD1aOSaHHdqc8eyOFY1l6 yedateSCBxGGpgSb6tpYOa lNsxUmUhCGMkLSn9iL19GB JdaQ7ejRTnCKj3XNQkoJMp baYbKjYaXCEddCNfrGR4YG SoFJ6qrxlmYRrdHMnsDEDv fyG2KKMxhOWcZ6NnTLNuOW 6xhzuiNOD1XGctVMLiWUA1 TwNkYTDms9Eksqh8BoAiqP FyZFxwbGFpblxmczIwIExZ OFGHET6VLSBeWHwJCiAWUZ AZPgapNV4ZAPLEKXGYYV5L V2lgWiuPMKZBKJIzX3uWX2 YJMK3JXOXOFKNPFCdTIVMS O6CJKRjwuBDiBOOdBU1sYr SRTIBFJfCcSb8KST2BDVhE SrJCFILKRBsBAh3dcYQqHC XzBX4bH1OCJrKbOHxUPGyL UDTjNBsHO8TCLzxkTXR3l4 xydGYxXHNzdGUxODAwMFxh bnNpXGRlZmxhbmcxMDMzXG G3ylObHUNdXCogQRRwADea Vk7hyKTmoSrwHgIyYPMtb4 acqyNKusphpAo4b9hjENVv PrI5xVZpSKooJ7vuclZzmO OtAHQwOHw5kF79YUFoyH0f jSYtXWrqgtBxLnS1OMznBS YyRcQ4KWMmnUGtALYkI2el ZWQwXGdyZWVuMFxibHVlMC W1ySwwk3F5kPAwqJYjbPog MzZiUeEmLvOUd4EgDQm5nW stX5DrBTYtPmS9fNFmDDMs QHnhQKXaLQHsklR1lL58IV rttbL8zFLvv9Qtq41tr873 fF2fsSPcRCH9RDGlBUObyN ErDYYdXAC8DCOddZMeA8ww XRLeIG9okrueOOjmLDyeMS PcwDL8OMPhhITzH9TxJIXx EIpvIUWtqum5WdXiCm7grP NgbEtpFIjrj1ydj2amwRCj Lzx5OCNjMoHlHoesAUtit3 Xre5khOWJypk9bXYL3hDMf mWtue8D2bVHiIKOqwFJuEO PpIE0otMVmTMMimY9daohi XHBnYnJkcmhlYWRccGdicm KwLw3gyOwmCXG9JHwrE4gr hC2iKsX2UMldD6ptrP7oPL o1CZwxDWMagKN2fpI4NSSz mQCiX2VtyM8oXOSzKR7mye o7z4xoUYN6KKjjLTEsGgY0 rqF8OZGkqVTvZDZinVjbXB gie095SEU0YkWjNQVdv9Sl Y0PgqUtkX83bwZmiQ60lSB PcoToieC5wgCzfmW3dNbPp CsVpVPwsuGlfVS5uIOXcS6 qunKQgPXVbDELsL1rzLoIn rL1azOvwJVpehmEyOONnSj f5VKRkqILwKKMuSvs4JSTe AKYbH19kjsonWEN7nR1dk5 lon2IgRFqiBCA3AJLom70c QSjemhN2YSheIh87ANgxYB B6PMheLTI9dU== CPT Code(s) (test code g6ftdNMbOWHhcFKgVFRbBZ = 8640) wwxaIuUPXgxOBnZ5Mcjkii BIdkII9oIB4egIvcxHYcvG IcDBKaFzYjv0nib383wNNd g1ffETLQzmnmnFj6aSgmG3 2jm7Y3AscjO21azDTrTFD9 YITdGOJsdNDoBSYdVUA5ZF YdpQHsV2anNHLjAX7biqps CPanUSzhNDJgeYA6SLLmfV SyU2FkDANbQZivCCOjcja3 IyQjKs7vwJDwgOvmWSgxSY JkXHBsYWluXGZzMjAgODgx RdIvKUw9EyJ3XBLdok0= CLINICAL DATA (test a0jbkWLxUYRpeWOxUDBdLM code = 3355) wwztWoWHYqdPGjA4Yrzplu IWyrAZ2wEA2gnDipgBWzmW QuDHVbNeUpm1wue536sJMt e7szIEKRzxyqyPu8oNrfD5 2xg5K2DvzrE07iaVHzGIY8 GNUiLKPgbLAoVCDiDNZ0TD RmcXOxL2omAAEsIP2upcyt AQtrBDgnREIqeMS4CLHwqU TvQ9FsZTCgIXqqJDOdjbz1 LlYrZc9ljOQczCwfVAdmKW JkXHBsYWluXGZzMjAgNTgg iE3jTkv+Rlx+m9y7hAUJIA KSNQHljjVbz8Irezulb0wr BWUeONNqkjCyLKG3maFNR5 ylg7u1oZT5oFLhctFdBYUs LUBknL1mWL5eLYECUYEjNZ luIHggNCBkYXlzIGFuZCB3 DJFfGf68xwEspO6laIL4HK Exl8sqrEgvCHDlVYAld10a VTBfCKYcbwWolV7zDQM3q5 SntDmyE3Wpa1yzRC5geE8i tOCexUTyhMQhj51lwB8lB5 iqGijqhMs7gxI5wfGjc0It rdCmIUV5waTOU6vZJkClg5 WaBCcPIn1bjfnzVLU5 SPECIMEN SOURCE (test s0vimDTtSZOnrCFoHSHlKA code = 3377) stkgWvHNKbqNQqD8Kahvht WAyhCX0lVY1umJsdlDHulJ XrSULuCeAsh7xno482cXXb n1teDQQTjgbeaUy7qYyvJ7 8zn5Y2JvomE26uoWYtEUG6 YJOaRCBfoDSvQZKoCWT3RV UxnBHgL7ciPQUoMK7usyqu LTifMHluTHKtlWT1UDHgyC JdO9PpXROvRMibLVTmnbx7 FuYfMv2clDKaaCxbLBcpBJ JkXHBsYWluXGZzMjAgTFlN HXghGy7FBRhiOCpKKYAhFI LXIhkwKS4IPLEFSETTM3YQ WSBGTkFccGFyfQ== GROSS DESCRIPTION (test s1zvbCBfQFUorQUVZJNfTE code = [id number]) DsYL2tzDpwuPt5lFtwWQXi iwU9fFBbOAudx3pwJMF0p5 sjnpFHBsbsMGQvUH4yMYwe PEFxEV8hBiSaCEAqDyJeWQ BhcGVydzEyMjQwXHBhcGVy rHO5TCJlHN5dezpdUJgjEN cmHSKbbtP0SAWxaVPrF8Wb UJRfNN5nmgwbXRC1HRJFZi tyQx4frFJdgEiqDcWxHyMg YXJzZXQwXGZuaWwgQXJpYW l1pE8YIrngKAE4IVOCNkex YzwdiJgbo3XfrDUkXFCzFP xcaWQgNTEwMDAgXFxkYiBP UtBkZvV6TNNhAbJ5NpG2SD f0TEMINAQiRIZwMsFeVSZ7 NEk7RBMxBJ0dMJjzhJBpLH etNstmRRdwT656JDqrZGYl C7HwH0CjQYwyPuDeALcyUG SqPBSeLLcwNGFxZ5VHWEYu GRFuOOY2TCJgFSz0UGekD6 ENDZOnUMLlWpakCfF7ZvF1 VBi3NJBFZs3jGnz7ZSz3CA O9FFP3ZTn8HVnghJQuEYnh a4LcCqBrIJOsORvxntH4AP QexfOgOWwpdZpntB0mBwMr YcMOMeNHjM5uzKUSq8XeKK DrnuFJGgsiLBUsQW7VJYPd YPbwNOEmVvQzyHMrR8wgUD NzF35yc3NGw9PpLG8UMLx3 mxMdjidesH2cRBWaayNlXD pcZnMyMCBSZWNlaXZlZCAx XAJbkNKkrS7bW6u7t3VpQ9 ggcmVkOyBwcmVwYXJlZCA0 AHY9rT5pzEoyrgghW1OrpE YywV7dimElWOMcQGwrBKqi QLVza5GyCGGmYVYaRLLzki Ucl7HrERmkijJugRXcXJys NSBvbiAzLzIxLzIwMjMpXH BhciANClxzYTMwXGVwaWNY w8YpWPXSMcrtaPffIoFwxS TaEvU5LUHqcCCiYOV1CU3j gGucNQHwH4KxI3QwmeG0QG ZprzMEDcryCEFsEK9MWMQj MjIgDQp9 MICROSCOPIC DESCRIPTION z6ovmHKnARCxvVKaJXAdDR (test code = 3371) sewiXuOPDsyNVmO4Wqynma BQxkGO6mDM0vqIkaiHBasJ TgLKUxEbUls5bne331mXWw x1yhNPIQhacwnBu0nFzrN7 0vh7G4XkmeG85kyYPmVCL5 MNJxUFXjgYEgIPCrXLN3CB BitVUlQ2rvRKQhYF0fwysx PXycTXkeJYOwuFK1TVIexQ YjJ1RiFLSdZSfrVMCttfm2 IyQsZg4aaGJtqYyrFGvkVN JkXHBsYWluXGZzMjAgUGVy Sx9ozUOmSpuyNZEjoMRdED xwYXJ9 Gross assessment was [facility] performed at (test [facility], = 1817) Department of Pathology, [address] [place] [address] 76563, Technical component was [facility] performed at ([facility], = 2727) Department of Pathology, [address] [place] [address] 06620, Professional component [facility] was performed at ([facility], code = 2779) Department of Pathology, [address] [place] [address], [facility] HospitalFINE NEEDLE ASPIRATION BY [id number] 09:58:30Medical Cytology Report Case: [id number] Authorizing Provider: Arcenio Lazo Collected: 11/30/2022 08:48 AM Ordering Location: [address] Received: 11/30/2022 03:09 PM Service Pathologist: Simon Corona MD Specimen: Lymph Node, liver, marguerite-portal lymph node biopsy via FNA LYMPH NODE, LIVER MARGUERITE-PORTAL, BIOPSY VIA FNA (CYTOSPINS AND CELL BLOCK): - NEGATIVE FOR MALIGNANT CELLS. - SCANT LYMPHOID TISSUE. Signing Pathologist Direct Phone Line: [phone] signed by Simon Corona MD on 12/01/2022 at 9:58 [id number], [id number] y.o. F with CIFUENTES cirrhosis, who presented to OSH with upper back pain and RLQ pain x 4 days and was found to have colitis and concern for cholecystitis/choledocholithiasis on imaging, thus transferred to [facility] for HLOC. LYMPH NODE, LIVER, MARGUERITE-PORTAL BIOPSY FNAA. Lymph NodeReceived 15 mls in cytorich red; prepared 4 cytospins, cell block (A2) (cell block placed in formalin at 15:35 on 11/30/2022)Performed.[facility], Department of Pathology, [address] [place] [address], [facility], Department of Pathology, [address] [place] [address], [facility], Department of Pathology, [address] [place] [address], HXWLFWHBBYNAC METABOLIC [id number] 05:09:17 Test Item Value Reference Range Interpretation [...] is not as accur ate as Creatinine Craol moiz in predicting glom erular filtration rate . Estimated GFR is not appl icable for dialysis patien ts Clinical Trials Manager ID - STANLEY WCBC (HEMOGRAM ONLY)2022-12-01 04:18:12 [...] 0-0 (test code = 413) Fine Needle [id number] 17:00:24 Test Item Value Reference Range Interpretation Comments Cytology (test code = See Separate Report 2629) [facility] Needle [id number] 17:00:24 Test Item Value Reference Range Interpretation Comments Cytology (test code = See Separate Report 2629) [facility] Needle [id number] 17:00:24 Test Item Value Reference Range Interpretation Comments Cytology (test code = See Separate Report 2629) [facility] Hospital[facility]LE ASPIRATE (FNA) [id number] 17:00:24 Test Item Value Reference Range Interpretation Comments CYTOLOGY RESULT POINTER See Separate Report (BEAKER) (test code = 2629) FL, FLUORO, NON-SPECIFIC, UP TO 1 [id number] 09:10:00Reason for exam:->[facility]lith[facility] : 1965 Sex: FAn imaging unit was utilized for this procedure. No radiologist interpretation was requested. Refer to the EMR for findings. Refer to PACS for any patient radiation dose information.COMPREHENSIVE METABOLIC [id number] 04:50:44 Test Item Value Reference Range Interpretation [...] not appl icable for dialysis patien ts Clinical Trials Manager ID - MARCOPROTHROMBIN TIME/[id number] 04:28:12 Test Item Value Reference Range Interpretation [...] WBC 0-0 (test code = 413) PROTHROMBIN TIME/[id number] 23:20:55 Test Item Value Reference Range Interpretation [...] for dialysis patien ts HEPATOBILIARY IMAGING W/ [id number] 12:22:00Unlisted Reason for Exam - Click Yes and Enter Reason Below->YesUnlisted Reason for Exam->?chronic cholecystitis with dilated GBReason for exam:->?chronic cholecystitis with dilated [facility] : 1965 Sex: FFINAL REPORT PROCEDURE: HEPATOBILIARY SCAN with Sincalide Infusion CPT CODE: 82659 INDICATION: 57-year-old female, chronic cholecystitis with dilated [...] response to sincalide stimulation. Signed: Marcos Muller MDRepcarondelet health Verified Date/Time: 11/29/2022 12:22 :52 CBC (HEMOGRAM [...] 0-0 (test code = 413) COMPREHENSIVE METABOLIC [id number] 01:32:49 Test Item Value Reference Range Interpretation [...] not appl icable for dialysis patien ts Clinical Trials Manager ID - DBCBC (HEMOGRAM ONLY)2022-11-28 01:07:42 Test [...] 0-0 H (test code = 413) Urine [id number] 10:01:17 Test Item Value Reference Range Interpretation Comments Result (test code = See comment 6463-4) EDILBERTO (test code = EDILBERTO) <10,000 col/mL Gram negative rods<10,000 col/mL skin eduardo [facility] HospitalUrine [id number] 10:01:17 Test Item Value Reference Range Interpretation Comments Result (test code = See comment 6463-4) EDILBERTO (test code = EDILBERTO) <10,000 col/mL Gram negative rods<10,000 col/mL skin eduardo [facility] HospitalUrine [id number] 10:01:17 Test Item Value Reference Range Interpretation Comments Result (test code = See comment 6463-4) EDILBERTO (test code = EDILBERTO) <10,000 col/mL Gram negative rods<10,000 col/mL skin eduardo [facility] HospitalCOMPREHENSIVE METABOLIC [id number] 06:17:40 Test Item Value Reference Range Interpretation [...] not appl icable for dialysis patien ts Clinical Trials Manager ID - MARCOSpecimen slightly ictericCBC (HEMOGRAM ONLY)2022-11-27 [...] 0-0 (test code = 413) MR, ABDOMEN, [id number] 10:22:00Unlisted Reason for Exam - Click Yes and Enter Reason Below->YesUnlisted Reason for Exam->evaluate for choledocholithiasis [facility] : 1965 Sex: FFINAL REPORT [...] correlate clinically to exclude enterocolitis. Signed: Manish Pandaeport Verified Date/Time: 11/26/2022 10:22:09 Reading Location: [facility] [id number] Ortho Consult Reading Room Electronically signed by: MANISH PANDA M.D. on11/26/2022 10:22 AMBASIC METABOLIC [id number] 06:05:16 Test Item Value Reference Range Interpretation [...] eGFR (test code = mL/min/1.73 values Stage D escription 1092) sq m Result G1 [place] l [...] not appl icable for dialysis patien ts Clinical Trials Manager ID - Angela slightly ictericHEPATIC FUNCTION [id number] 06:04:28 Test Item Value Reference Range Interpretation [...] (test code = 33 U/L 6-55 347) Clinical Trials Manager ID - Angela slightly ictericPROTHROMBIN TIME/[id number] 05:52:20 Test Item Value Reference Range Interpretation [...] mechanical heart valves.CBC W/PLT COUNT & AUTO [id number] 05:33:16 Test Item Value Reference Range Interpretation [...] (BEAKER) (test code = 2801) U/S, ABDOMINAL, [id number] 17:23:00Abdomen limited area? Add comment if clarification is needed.->Right upper quadrant Reason for exam:- >cholecystitis possible choledocolithiasis [facility] : 1965 Sex: [...] 3.Cirrhosis and small volume ascites. Signed: Goldie Albrightcarondelet health Verified Date/Time: 11/25/2022 17:23:59 Urinalysis w/Microscopic + Reflex to [id number] 11:12:01 Test Item Value Reference Range Interpretation Comments Color, UA (test code Brown = 5778-6) Clarity, UA (test Cloudy code = 5767-9) Specific [place], UA 1.050 1.001-1.035 H (test code = 5811-5) pH, UA (test code = 6.0 5.0-8.0 5803-2) Protein, UA (test 200 mg/dL Negative A code = 75240-1) Glucose, UA (test Negative Negative code = 365) Ketones, UA (test Trace Negative A code = 2514-8) Bilirubin, UA (test Negative Negative code = 34628-2) Blood, UA (test code Large Negative A = 84677-3) Nitrite, UA (test Negative Negative code = 5802-4) Leukocytes, UA (test Small Negative A code = 5799-2) Urobilinogen, UA 2 0.2-1.0 H (test code = 69594-9) RBC, UA (test code = See_Comment [Autom ated 63786-4) message] The system which generated this result [...] . Bacteria, UA (test Many code = 60629-5) Mucus (test code = Rare 8247-9) Squam Epithel, UA 10 See_Comment [Automate d (test code = 42990-3) messag e] The system which generated this result transmit joanna reference range : /HPF. The reference range was not used to interpret this result as normal/abnormal . Specimen Source (test code = 2795) EDILBERTO (test code = EDILBERTO) Clinical Trials Manager ID - tech Lab Interpretation Abnormal (test code = 30772-1) [facility] HospitalUrinalysis w/Microscopic + Reflex to Culture 2022-11-25 11:12:01 Test Item Value Reference Range Interpretation Comments Color, UA (test code Brown = 5778-6) Clarity, UA (test Cloudy code = 5767-9) Specific [place], UA 1.050 1.001-1.035 H (test code = 5811-5) pH, UA (test code = 6.0 5.0-8.0 5803-2) Protein, UA (test 200 mg/dL Negative A code = 95758-3) Glucose, UA (test Negative Negative code = 365) Ketones, UA (test Trace Negative A code = 2514-8) Bilirubin, UA (test Negative Negative code = 54684-0) Blood, UA (test code Large Negative A = 34899-6) Nitrite, UA (test Negative Negative code = 5802-4) Leukocytes, UA (test Small Negative A code = 5799-2) Urobilinogen, UA 2 0.2-1.0 H (test code = 94075-0) RBC, UA (test code = See_Comment [Autom ated 17937-9) message] The system which generated this result [...] . Bacteria, UA (test Many code = 18390-2) Mucus (test code = Rare 8247-9) Squam Epithel, UA 10 See_Comment [Automate d (test code = 04692-8) messag e] The system which generated this result transmit joanna reference range : /HPF. The reference range was not used to interpret this result as normal/abnormal . Specimen Source (test code = 2795) EDILBERTO (test code = EDILBERTO) Clinical Trials Manager ID - tech Lab Interpretation Abnormal (test code = 63070-7) [facility]inal[facility] w/Microscopic + Reflex to Culture 2022-11-25 11:12:01 Test Item Value Reference Range Interpretation Comments Color, UA (test code Brown = 5778-6) Clarity, UA (test Cloudy code = 5767-9) Specific [place], UA 1.050 1.001-1.035 H (test code = 5811-5) pH, UA (test code = 6.0 5.0-8.0 5803-2) Protein, UA (test 200 mg/dL Negative A code = 16788-8) Glucose, UA (test Negative Negative code = 365) Ketones, UA (test Trace Negative A code = 2514-8) Bilirubin, UA (test Negative Negative code = 53895-2) Blood, UA (test code Large Negative A = 11821-1) Nitrite, UA (test Negative Negative code = 5802-4) Leukocytes, UA (test Small Negative A code = 5799-2) Urobilinogen, UA 2 0.2-1.0 H (test code = 39822-7) RBC, UA (test code = See_Comment [Autom ated 23841-7) message] The system which generated this result [...] . Bacteria, UA (test Many code = 28794-1) Mucus (test code = Rare 8247-9) Squam Epithel, UA 10 See_Comment [Automate d (test code = 63453-4) messag e] The system which generated this result transmit joanna reference range : /HPF. The reference range was not used to interpret this result as normal/abnormal . Specimen Source (test code = 2795) EDILBERTO (test code = EDILBERTO) Clinical Trials Manager ID - tech Lab Interpretation Abnormal (test code = 82856-5) [facility]IS W/ REFLEX URINE [id number] 11:12:01 Test Item Value Reference Range Interpretation [...] = 516) SOURCE(BEAKER) (test code = 2795) Clinical Trials Manager ID - techBILIRUBIN, [id number] 10:18:18 Test Item Value Reference Range Interpretation Comments BILIRUBIN DIRECT (BEAKER) (test 1.3 mg/dL 0.1-0.5 H code = 706) Clinical Trials Manager ID - HENRIQUE GPROTHROMBIN TIME/[id number] 07:19:55 Test Item Value Reference Range Interpretation [...] not appl icable for dialysis patien ts Clinical Trials Manager ID - HENRIQUE GSpecimen slightly [id number] 07:09:53 Test Item Value Reference Range Interpretation Comments MAGNESIUM (BEAKER) (test code = 1.7 mg/dL 1.6-2.6 627) Clinical Trials Manager ID - HENRIQUE [id number] 07:09:53 Test Item Value Reference Range Interpretation Comments PHOSPHORUS (BEAKER) (test code = 3.8 mg/dL 2.3-4.7 604) Clinical Trials Manager ID - HENRIQUE GCBC W/PLT COUNT & AUTO [id number] 06:52:55 Test Item Value Reference Range Interpretation [...]
--- NOTE | 2023-04-14 19:02 | RAD REPORT ---
EXAM DESCRIPTION: RAD - Chest Pa And Lat (2 Views) - 04/14/2023 6:49 pm CLINICAL HISTORY: COUGH Chest pain. COMPARISON: <Comparisons> FINDINGS: Moderate airspace opacity is present in the left lower lobe with associated left pleural e ffusion, compatible with moderate pneumonia. The right lung is grossly clear. The heart is mildly pro minent. No displaced fractures. IMPRESSION: Moderate left lower lobe pneumonia.
[2023-04-14] MEDS ORDERED: CEFTRIAXONE 1000 MG/VIAL ONE (20:37)
[2023-04-14] MEDS ORDERED: LIDOCAINE 1% MPF 2 ML AMPULE ONE (20:38)
--- NOTE | 2023-04-14 21:19 | EDPHYS ---
Physician Documentation [facility] Name: Christelle Paredes Age: 57 yrs Sex: Female : 1965 Arrival Date: 04/14/2023 Time: 18:13 Bed 16 Private MD: ED Physician Otf Alvarez HPI: 04/14 19:37 This 57 yrs old Female presents to ER via Ambulatory with complaints of Shortness Of snw Breath, Cough, Shoulder Pain, Abdominal Pain. 19:37 The patient has shortness of breath with light activity. Onset: The symptoms/episode snw began/occurred gradually. Duration: The symptoms are continuous. Associated signs and symptoms: Pertinent positives: non-productive cough. yes but pt states she is coughing more and is more symptomatic than usual. . Historical: - Allergies: 18:22 "muscle relaxers"; ll1 18:22 Meclizine; ll1 18:22 Vancomycin; ll1 - PMHx: 18:22 Asthma; cirrhosis of liver; kidney issues with IV contrast; ll1 - PSHx: 18:22 common bile duct stent-EGD; ll1 - Immunization history:: Client reports receiving the 2nd dose of the Covid vaccine. - Social history:: Smoking status: Patient denies any tobacco usage or history of. ROS: 18:36 Constitutional: Positive for malaise, cough. snw 19:41 Constitutional: Negative for fever, chills, and weight loss, Eyes: Negative for injury, snw pain, redness, and discharge, ENT: Negative for injury, pain, and discharge, Neck: Negative for injury, pain, and swelling. 19:41 Abdomen/GI: Negative for abdominal pain, nausea, vomiting, diarrhea, and constipation, Back: Negative for injury and pain, : Negative for injury, bleeding, discharge, and swelling, MS/Extremity: Negative for injury and deformity, Skin: Negative for injury, rash, and discoloration, Neuro: Negative for headache, weakness, numbness, tingling, and seizure, Psych: Negative for depression, anxiety, suicide ideation, homicidal ideation, and hallucinations. 19:41 Cardiovascular: Positive for chest pain, with cough. 19:41 Respiratory: Positive for cough, shortness of breath. Exam: 18:35 Constitutional: This is a well developed, well nourished patient who is awake, alert, snw and in no acute distress. Head/Face: Normocephalic, atraumatic. Eyes: Pupils equal round and reactive to light, extra-ocular motions intact. Lids and lashes normal. Conjunctiva and sclera are non-icteric and not injected. Cornea within normal limits. Periorbital areas with no swelling, redness, or edema. ENT: Nares patent. No nasal discharge, no septal abnormalities noted. Tympanic membranes are normal and external auditory canals are clear. Oropharynx with no redness, swelling, or masses, exudates, or evidence of obstruction, uvula midline. Mucous membranes moist. Neck: Trachea midline, no thyromegaly or masses palpated, and no cervical lymphadenopathy. Supple, full range of motion without nuchal rigidity, or vertebral point tenderness. No Meningismus. Chest/axilla: Normal chest wall appearance and motion. Nontender with no deformity. No lesions are appreciated. Cardiovascular: Regular rate and rhythm with a normal S1 and S2. No gallops, murmurs, or rubs. Normal PMI, no JVD. No pulse deficits. Respiratory: Lungs have equal breath sounds bilaterally, clear to auscultation and percussion. No rales, rhonchi or wheezes noted. No increased work of breathing, no retractions or nasal flaring. Abdomen/GI: Soft, non-tender, with normal bowel sounds. No distension or tympany. No guarding or rebound. No evidence of tenderness throughout. Back: No spinal tenderness. No costovertebral tenderness. Full range of motion. MS/ Extremity: Pulses equal, no cyanosis. Neurovascular intact. Full, normal range of motion. Neuro: Awake and alert, GCS 15, oriented to person, place, time, and situation. Cranial nerves II-XII grossly intact. Motor strength 5/5 in all extremities. Sensory grossly intact. Cerebellar exam normal. Normal gait. Psych: Awake, alert, with orientation to person, place and time. Behavior, mood, and affect are within normal limits. 18:35 Skin: Appearance: normal except for affected area, ecchymosis, that are moderate, and are diffusely located, mild lower extremity discoloration while dependent . Vital Signs: 18:23 BP 124 / 67; Pulse 101; Resp 17; Temp 98.9; Pulse Ox 99% on R/A; Weight 107.05 kg; ll1 Height 5 ft. 8 in. ; Pain 4/10; 20:40 BP 115 / 42; Pulse 82; Resp 16; Pulse Ox 95% on R/A; Pain 3/10; nj1 18:23 Body Mass Index 35.88 (107.05 kg, 172.72 cm) ll1 18:23 Pain Scale: Adult ll1 20:40 Pain Scale: Adult nj1 MDM: 18:35 Patient medically screened. snw 20:33 Differential diagnosis: Anemia asthma, Bronchitis pneumonia, Pneumothorax pulmonary snw edema. Data reviewed: vital signs, nurses notes, lab test result(s), radiologic studies. I considered the following discharge prescriptions or medication management in the emergency department Medications were administered in the Emergency Department. See MAR. Counseling: I had a detailed discussion with the patient and/or guardian regarding: the historical points, exam findings, and any diagnostic results supporting the discharge/admit diagnosis, radiology results, the need for outpatient follow up, for definitive care, to return to the emergency department if symptoms worsen or persist or if there are any questions or concerns that arise at home. Special discussion: Based on the history and exam findings, there is no indication for further emergent testing or inpatient evaluation. I discussed with the patient/guardian the need to see the primary care provider for further evaluation of the symptoms. ED course: Pt has appt at 0800 tomorrow am for thoracentesis. Started Levaquin 24h ago. SpO2 on room air 99%. Will give 1gm Rocephin IM and discharge with return precautions. 04/14 18:35 Order name: SARS RAPID; Complete Time: 21:28 snw 04/14 18:35 Order name: Chest Pa And Lat (2 Views) XRAY; Complete Time: 19:11 snw 04/14 19:54 Order name: INCENTIVE SPIROMETRY snw Administered Medications: 20:36 Drug: Rocephin (cefTRIAXone) IM 1 grams Route: IM; Site: left vastus lateralis; as6 21:36 Follow up: Response: No adverse reaction jw7 Disposition Summary: 04/14/23 21:19 Discharge Ordered Location: Home snw Condition: Stable snw Diagnosis - Unspecified bacterial pneumonia snw - Pleural effusion in other conditions classified elsewhere snw - Unspecified cirrhosis of liver snw Followup: snw - With: Emergency Department - When: As needed - Reason: Worsening of condition Followup: snw - With: Private Physician - When: Tomorrow - Reason: Recheck today's complaints, Continuance of care, Re-evaluation by your physician Discharge Instructions: - Discharge Summary Sheet snw - Cirrhosis snw - Pleural Effusion snw - Pleurisy snw - Community-Acquired Pneumonia, Adult snw - Thoracentesis snw Forms: - Medication Reconciliation Form snw - Thank You Letter snw - Antibiotic Education snw - Prescription Opioid Use snw - Patient Portal Instructions snw Addendum: 04/18/2023 10:53 Co-signature as Attending Physician, Otf Alvarez MD I reviewed the patient's care r n provided by the Advanced Practice Provider and agree with the diagnosis and treatment plan. Signatures: Dispatcher [employer] EDMS Erica Matt, BANKRUPTCY ATTORNEY-C BANKRUPTCY ATTORNEY-Csnw Otf Alvarez MD MD rn Lewis, Lynsay, RN RN ll1 [place] RN RN as6 Cheryl Aguero RN jw7 Corrections: (The following items were deleted from the chart) 04/14 18:23 18:22 PMHx: kidney disease; ll1 ll1
--- NOTE | 2023-04-14 21:19 | ER ---
Nurse's Notes [facility] Name: Christelle Paredes Age: 57 yrs Sex: Female : 1965 Arrival Date: 04/14/2023 Time: 18:13 Bed 16 Private MD: Diagnosis: Unspecified bacterial pneumonia;Pleural effusion in other conditions classified elsewhere;Unspecified cirrhosis of liver Presentation: 04/14 18:23 Chief complaint: Patient states: Cough worse this week than usual. Abdominal pain since ll1 Tuesday. Legs feel weak Some SOB and R shoulder pain. HR at home 113, O2 94-97% RA at home. Coronavirus screen: Vaccine status: Patient reports receiving the 2nd dose of the covid vaccine. Client denies travel out of the [place] in the last 14 days. cough unrelated to allergies, difficulty breathing, fatigue, muscle pain, nausea, shortness of breath, Client presents with at least one sign or symptom that may indicate coronavirus-19. Standard/surgical mask placed on the client. Ebola Screen: Patient denies travel to an Ebola-affected area in the 21 days before illness onset. Initial Sepsis Screen: Does the patient meet any 2 criteria? No. Patient's initial sepsis screen is negative. Does the patient have a suspected source of infection? Yes: Productive cough/pneumonia. Risk Assessment: Do you want to hurt yourself or someone else? Patient reports no desire to harm self or others. Onset of symptoms was April 06, 2023. 18:23 Method Of Arrival: Ambulatory ll1 18:23 Acuity: [place] 3 ll1 Triage Assessment: 18:26 General: Appears uncomfortable, Behavior is calm, cooperative, appropriate for age. ll1 Pain: Complains of pain in abdominal Quality of pain is described as crampy. Respiratory: Reports shortness of breath. GI: Reports lower abdominal pain, upper abdominal pain, cramping, nausea. Historical: - Allergies: 18:22 "muscle relaxers"; ll1 18:22 Meclizine; ll1 18:22 Vancomycin; ll1 - PMHx: 18:22 Asthma; cirrhosis of liver; kidney issues with IV contrast; ll1 - PSHx: 18:22 common bile duct stent-EGD; ll1 - Immunization history:: Client reports receiving the 2nd dose of the Covid vaccine. - Social history:: Smoking status: Patient denies any tobacco usage or history of. Screenin:43 [facility] ED Fall Risk Assessment (Adult) History of falling in the last 3 months, nj including since admission Score/Fall Risk Level 0 - 2 = Low Risk Oriented to surroundings, Maintained a safe environment, Hourly rounding (assess needs \\T\\ fall precautionary measures) done. Abuse screen: Denies threats or abuse. Denies injuries from another. Nutritional screening: No deficits noted. Tuberculosis screening: No symptoms or risk factors identified. Assessment: 20:40 Reassessment: Patient appears in no apparent distress at this time. Patient and/or nj1 family updated on plan of care and expected duration. Pain level reassessed. Patient is alert, oriented x 3, equal unlabored respirations, skin warm/dry/pink. 20:43 Pain: Complains of pain in Shoulders Pain currently is 3 out of 10 on a pain scale. [facility] Vital Signs: 18:23 BP 124 / 67; Pulse 101; Resp 17; Temp 98.9; Pulse Ox 99% on R/A; Weight 107.05 kg; ll1 Height 5 ft. 8 in. ; Pain 4/10; 20:40 BP 115 / 42; Pulse 82; Resp 16; Pulse Ox 95% on R/A; Pain 3/10; nj1 18:23 Body Mass Index 35.88 (107.05 kg, 172.72 cm) ll1 18:23 Pain Scale: Adult 1 20:40 Pain Scale: Adult [facility] ED Course: 18:16 Patient arrived in ED. mr 18:25 Erica Matt FNP-C [facility]. snw 18:25 Otf Alvarez MD is Attending Physician. snw 18:26 Triage completed. ll1 18:26 Arm band placed on. ll1 18:51 Chest Pa And Lat (2 Views) XRAY In Process Unspecified. EDMS 20:31 SARS RAPID Sent. snw 20:44 Patient has correct armband on for positive identification. Bed in low position. Call [facility] light in reach. Side rails up X 1. Provided Education on: fall precautions, call light. 21:34 Cheryl Aguero RN is Primary Nurse. jw7 21:34 No provider procedures requiring assistance completed. Patient did not have IV access jw7 during this emergency room visit. Administered Medications: 20:36 Drug: Rocephin (cefTRIAXone) IM 1 grams Route: IM; Site: left vastus lateralis; as6 21:36 Follow up: Response: No adverse reaction jw7 Medication: 21:35 VIS not applicable for this client. jw7 Outcome: 21:19 Discharge ordered by MD. oshea 21:34 Discharged to home ambulatory. jw7 21:34 Condition: stable 21:34 Discharge instructions given to patient, Instructed on discharge instructions, follow up and referral plans. Demonstrated understanding of instructions, follow-up care. 21:35 Patient left the ED. jw7 Signatures: Dispatcher [employer] EDMS Erica Matt, [employer]DLE [employer]CHOOL COMBINATION TEACHER-C [employer]DLE SCHOOL COMBINATION TEACHER-Csnw Shelia Terrazas Ina Robledo, RN RN ll1 [place] RN RN as6 Cheryl Aguero RN RN jw7 Lima Betancourt, RN RN nj1 Corrections: (The following items were deleted from the chart) 18:23 18:22 PMHx: kidney disease; ll1 ll1 20:43 20:40 Reassessment: Patient appears in no apparent distress at this time. Patient nj1 and/or family updated on plan of care and expected duration. Pain level reassessed. Patient is alert, oriented x 3, equal unlabored respirations, skin warm/dry/pink. nj1
[2023-04-14 21:27] LABS: SARS-CoV-2 Antigen Rapid Res Negative (Negative)
[2023-04-14 21:46] VITALS: TEMP 98.9
[2023-04-14 21:48] VITALS: BP 115/42; O2SAT 95
== END 2023-04-14 21:35 | disposition home or self-care (01) ==
LOC: ER 18:13
DX: J15.9 Unspecified bacterial pneumonia (principal); J91.8 Pleural effusion in other conditions classified elsewhere; K74.60 Unspecified cirrhosis of liver; Z20.822 Contact with and (suspected) exposure to COVID-19; Z88.3 Allergy status to other anti-infective agents; Z88.8 Allergy status to other drugs, medicaments and biological substances
CPT/HCPCS: 36415; 71046; 96372; 99284; 87811; J0696

== ENCOUNTER 2023-04-21 16:08 | Emergency (ER) | payer BC ==
--- OUTSIDE RECORDS SUMMARY | 2023-04-21 16:18 | XMS REPORT | Continuity of Care Document ---
:1965 Author Organization [facility] t Address [address] [facility] [address] [place] [id number] Care Team Providers Name Role Phone SAURABH NICOLE Primary Care Physician Unavailable MARSHA BLACK Attending Clinician Unavailable MARIO MONTANO Attending Clinician Unavailable ASHLEY WRIGHT Attending Clinician Unavailable PAUL SUTTON Attending Clinician Unavailable MATY MEI Attending Clinician Unavailable SAMANTHA ALFREDO Attending Clinician Unavailable AMIE GOMEZ Attending Clinician Unavailable MARCIN MAIN Attending Clinician Unavailable JEAN OLIVERA Attending Clinician Unavailable RIMMA GONZALEZ Attending Clinician Unavailable KRIS BUTTS Attending Clinician Unavailable IFRAH FOFANA Attending Clinician Unavailable ARCENIO LAZO Attending Clinician [...] Unavailable ERIKA CUELLAR Attending Clinician Unavailable BARRY CUHNA Attending Clinician Unavailable ANA LUISA, HEATHER THURMAN Attending Clinician Unavailable NENA MANE Attending Clinician Unavailable MARGIE ALLRED Attending Clinician Unavailable Mel VAUGHN, Du Attending Clinician Terri Concepcion Attending Clinician Fabiano VAUGHN, Gerardo Castro Attending Clinician Herman VAUGHN, Paul Hernández Attending Clinician [phone] Patricia VAUGHN MPH, Amie Lehman Attending Clinician [phone] Enmanuel VAUGHN, Megha Dumas Attending Clinician Castillo VAUGHN, Rylie Diaz Attending Clinician Graham VAUGHN, Dipak Long Attending Clinician Ana Luisa VAUGHN, Heather Thumran Attending Clinician [phone] Judi Vigil Attending Clinician Colt VAUGHN, Eun Burgos Attending Clinician Monica Ruiz CRNA Attending Clinician [phone] Jeannette, Arcenio Cole Attending Clinician PAUL SUTTON Admitting Clinician Unavailable ASHLEY WRIGHT Admitting Clinician Unavailable ARCENIO LAZO Admitting Clinician Unavailable Referred, Self Admitting Clinician Unavailable ANA LUISA, HEATHER THURMAN Admitting Clinician Unavailable MARISABEL HO Admitting Clinician Unavailable JUDI VIGIL Admitting Clinician Unavailable Payers Payer Name Policy Type Policy Number Effective Date Expiration Date S chay [employer]BS PPO POS EPO [id number] 2022 00:00:00 CHOICE Problems Condition Condition Condition Status Onset Resolution Last Treating Co mments Source Name Details Category Date Date Treatment Clinician Date Pleural Pleural Disease Active [facility] Other Other Disease Active [facility] asc[facility] 00:[facility]: Medical 00 [place] Symptomati Symptomati Disease Active C [facility] [...] Center s MELOXICA Allergy Active [facility] M 715 00:00: 00 Vancomyc Propensi Active Method i in ty to 7[address] st adverse 00:00: Hospita reaction 00 l s to drug NO KNOWN Allergy Active [facility] Family History Family Member Diagnosis Comments Start Date Stop Date Source Natural father Hypertension [facility] Natural father Kidney cancer [facility] Natural mother Arrhythmia [facility] Natural mother Asthma [facility] Natural mother Cirrhosis [facility] Natural mother Diabetes [facility] Social History Social Habit Start Date Stop Date Quantity Comments Source History [facility] Alcohol Std Drinks Medica l Center History [facility] Alcohol Binge Medical Mal[facility] Exposure to 2022-12-19 2022-12-[address] [facility] SARS-CoV-2 (event) 00:00:00 15:15:00 Medica l Center History [facility] 2022-12-29 2022-12-[address] [facility] Housing Unable to 00:00:00 00:00:00 Medical Center Pay History [facility] 2022-12-29 2022-12-[address] [facility] Housing Places 00:00:00 00:00:00 Medical Ce nter Lived History [facility] 2022-12-29 2022-12-[address] [facility] Housing Homeless 00:00:00 00:00:00 Medical Center Last Year History [facility] 2022-11-25 2022-11-[address] [facility] Alcohol Frequency 00:00:00 00:00:00 Medical Center History of Social 2019-05-03 2019-05-[address] function 00:00:00 00:00:00 Hospital Alcohol intake 2019-04-04 2019-04-04 Ex-drinker [facility] 00:[facility] 00:00:00 (finding) Hospital Tobacco use and 2019-04-04 2019-04-04 Smokeless [facility] exposure 00:00:00 00:00:00 tobacco non-user Hospital Sex Ass[birth year] At [birth year] [facility] 00:00:00 00:00:00 Hospital Smoking Status Start Date Stop Date Source Never smoked tobacco [facility] Medications Ordered Filled Start Stop Current Ordering Indication Dosage Frequency Signature Comments Components Source Medication Medication Date Date Medication? Clinician (SIG) Name Name spironolact Yes 25mg QD Take [address] [facility] one 4-26 tablet (25 [facility] (ALDACTONE) 18:19: mg total) M edical 25 MG 05 by mouth Center tablet in the morning. omeprazole Yes 20mg QD Take 1 [facility] (PriLOSEC) 4-26 capsule [facility] 20 MG 18:19: (20 mg Medical capsule 05 total) by Center mouth in the morning. traMADoL Yes 50mg Take [address] (ULTRAM) 50 4-26 tablet (50 Veronica kes mg tablet 18:19: mg total) Med ical 05 by mouth Center every 6 (six) hours as needed for Pain. Max Daily Amount: 200 mg ondansetron Yes 4mg Take [address] (ZOFRAN) 4 4-26 tablet (4 Luke s MG tablet 18:19: mg total) Med ical 05 by mouth 3 Center (three) times daily as needed for Nausea. torsemide 0 2022- No 40mg QD Take [address] 40 mg Tab 4-26 05-26 by mouth [facility] 00:00: 23:59 in the Medical 00 :00 morning Center for 30 days. potassium 2023- No 10meq QD Take [address] chloride 4-25 04-24 tablet (10 Luke s (KLOR-CON-M 00:00: 23:59 mEq total) Medical ) 10 MEQ CR 00 :00 by mouth Cent er tablet in the morning. propranoloL 2023- No 10mg [id number] Take [address] (INDERAL) 3-01 12-21 [id number] tablet (10 [facility] 10 MG 00:00: 23:59 3D mg total) Medica l tablet 00 :00 by mouth Center in the morning and 1 tablet (10 mg total) at noon and 1 tablet (10 mg total) in the evening. furosemide 2023- No 20mg Take [address] [facility] (LASIX) 20 -01 12-21 tablet (20 Veronica kes MG tablet 00:00: 23:59 mg total) Me dical 00 :00 by mouth Center daily as needed (leg swelling). albuterol 2023- No 1{puff} Inhale [address] HFA 12-01-21 puff by [facility] (VENTOLIN 00:00: 23:59 mouth via Me dical HFA) 90 00 :00 inhaler Center mcg/actuati every 6 on inhaler (six) hours as needed for Wheezing. propranoloL 2023- No 10mg [id number] Take [address] (INDERAL) -01 12- [id number] tablet (10 [facility] 10 MG 00:00: 23:59 3D mg total) Medica l tablet 00 :00 by mouth Center in the morning and 1 tablet (10 mg total) at noon and 1 tablet (10 mg total) in the evening. furosemide 2023- No 20mg Take [address] [facility] (LASIX) 20 3-01 12-21 tablet (20 Veronica kes MG tablet 00:00: 23:59 mg total) Me dical 00 :00 by mouth Center daily as needed (leg swelling). albuterol 2023- No 1{puff} Inhale [address] HFA 3-22 -21 puff by [facility] (VENTOLIN 00:00: 23:59 mouth via Me dical HFA) 90 00 :00 inhaler Center mcg/actuati every 6 on inhaler (six) hours as needed for Wheezing. propranoloL 2023- No 10mg [id number] Take [address] (INDERAL) 12-01 [id number] tablet (10 [facility] 10 MG 00:00: 23:59 [...] 50mg Take [address] [facility] (ULTRAM) 50 - 04-01 tablet (50 L ukes mg tablet 00:00: 23:59 mg total) Me dical 00 :00 by mouth Center every 6 (six) hours as needed for up to 10 days. Max Daily Amount: 200 mg traMADoL 2022- No 50mg Take [address] [facility] (ULTRAM) 50 - 04-01 tablet (50 L ukes mg tablet [...] Observation Time Observation Value Comments Source HEIGHT 2023-04-19 14:45:00 172.7 cm WEIGHT 2023-04-19 14:45:00 105.779 kg HEIGHT 2023-04-18 08:47:00 172.7 cm WEIGHT 2023-04-18 08:47:00 106.595 kg HEIGHT 2023-04-18 08:47:00 172.7 cm WEIGHT 2023-04-18 08:47:00 106.595 kg HEIGHT 2023-04-16 11:57:00 172.7 cm WEIGHT 2023-04-16 11:57:00 102.513 kg HEIGHT 2023-04-16 11:57:00 172.7 cm WEIGHT 2023-04-16 11:57:00 102.513 kg WEIGHT 2023-04-15 09:44:00 104.781 kg WEIGHT 2023-04-15 09:44:00 104.781 kg HEIGHT 2023-04-12 07:47:00 172.7 cm WEIGHT 2023-04-12 [...] kg Heart rate 2023-01-04 15:54:03 71 /min [facility] Respiratory rate 2023-01-04 15:54:03 18 /min [facility] Oxygen saturation in 2023-01-04 15:54:03 96 /min [facility] Arterial blood by Medical Ce nter Pulse oximetry Body temperature 2023-01-04 15:53:12 37 Odilia [facility] Systolic blood 2023-01-04 15:53:00 108 mm[Hg] [facility] Diastolic blood 2023-01-04 15:53:00 69 mm[Hg] [facility] Body weight 2023-01-04 07:30:00 111.727 kg [facility] BMI 2023-01-04 07:30:00 36.37 kg/m2 [facility] Body height 2023-01-02 09:27:00 175.3 cm [facility] Systolic blood 2022-12-01 08:02:00 121 mm[Hg] [facility] Diastolic blood 2022-12-01 08:02:00 60 mm[Hg] [facility] Heart rate 2022-12-01 08:02:00 79 /min [facility] Body temperature 2022-12-01 08:02:00 35.78 Odilia [facility] Respiratory rate 2022-12-01 08:02:00 18 /min [facility] Oxygen saturation in 2022-12-01 08:02:00 93 /min [facility] Arterial blood by Medical Ce nter Pulse oximetry Body height 2022-11-25 08:46:00 175.3 cm [facility] Body weight 2022-11-25 08:46:00 119.296 kg [facility] BMI 2022-11-25 08:46:00 38.84 kg/m2 [facility] Procedures Procedure Date / Time Performing Clinician Source Performed MAGNESIUM 2023-01-04 05:10:00 Margie Allred [facility] COMPREHENSIVE METABOLIC 2023-01-04 05:10:00 Margie Allred [facility] PHOSPHORUS 2023-01-04 05:10:00 [facility] CALCIUM, IONIZED 2023-01-04 05:09:00 [facility] CBC W/PLT COUNT & AUTO 2023-01-04 05:09:00 [facility] [id number] 2023-01-04 05:09:[address] [facility] CBC W/PLT COUNT & AUTO 2023-01-04 05:09:00 Bae [facility] MAGNESIUM 2023-01-03 05:02:00 [facility]OLIC 2023-01-03 05:02:00 [facility] 2023-01-02 05:32:00 Teofilo [facility] METABOLIC 2023-01-02 05:32:00 [facility] CALCIUM, IONIZED 2023-01-01 05:50:00 Catalino [facility] METABOLIC 2023-01-01 05:12:00 Marisabel Ho [facility] MAGNESIUM 2023-01-01 05:12:00 [facility] PROTHROMBIN TIME/INR 2023-01-01 05:12:00 Marisabel Ho [facility] HEREDITARY HEMOCHROMATOSIS 2023-01-01 05:12:00 Dipak Arreola [facility] PHOSPHORUS 2023-01-01 05:12:00 [facility] CBC W/PLT COUNT & AUTO 2023-01-01 05:12:00 [facility] CBC W/PLT COUNT & AUTO 2023-01-01 05:12:00 [facility] 2D ECHO W/ DOPPLER 2022-12-31 14:04:45 Evelyn Portillo [facility] (CW/PW/COLOR) [facility] REPORT OF PROCEDURE - 2022-12-31 10:28:[address] [facility] ENDOSCOPY [facility] EGD 2022-12-31 08:14:00 Gerardo Diaz [facility] L ukes (ESOPHAGOGASTRODUODENOSCOP Medic al Center Y) COMPREHENSIVE METABOLIC 2022-12-31 04:48:00 Marisabel Ho [facility] MAGNESIUM 2022-12-31 04:48:00 Rosalee Marisabelher Fuller [facility] PROTHROMBIN TIME/INR 2022-12-31 04:48:00 Rosalee Marisabel [facility] CALCIUM, IONIZED 2022-12-31 04:48:00 [facility] PHOSPHORUS 2022-12-31 04:48:00 [facility] CBC W/PLT COUNT & AUTO 2022-12-31 04:48:00 [facility] CBC W/PLT COUNT & AUTO 2022-12-31 04:48:00 [facility] HEPATITIS B CORE ANTIBODY, 2022-12-30 16:29:00 [facility] HEPATITIS A ANTIBODY, IGG 2022-12-30 16:29:00 [facility]TIBODY 2022-12-30 16:29:00 [facility] HEPATITIS B SURFACE 2022-12-30 16:29:[address] [facility] ANTIGEN [facility] HEPATITIS B SURFACE 2022-12-30 16:29:[address] [facility] ANTIBODY [facility] FERRITIN 2022-12-30 16:29:00 [facility] IRON, TIBC, % SAT. 2022-12-30 16:29:00 Marisabel Ho [facility] (WITHOUT FERRITIN) Medical Cente r CERULOPLASMIN 2022-12-30 16:29:00 Rosalee Marisabel [facility] ALPHA FETOPROTEIN (AFP), 2022-12-30 16:29:00 Marisabel Ho [facility] TUMOR MARKER [facility] ANTI-NUCLEAR ANTIBODY 2022-12-30 16:29:00 Rosalee [facility] (EMORY) [facility] ACTIN (SMOOTH MUSCLE) 2022-12-30 16:29:00 Marisabel Ho [facility] ANTIBODY, IGG Medical Center EMORY TITER AND PATTERN 2022-12-30 16:29:00 Rosalee [facility] MITOCHONDRIAL AB SCREEN 2022-12-30 16:29:00 Rosalee Marisabel [facility] luisito [facility] MITOCHONDRIAL AB TITER 2022-12-30 16:29:00 Marisabel Ho [facility] [id number]\\, 2022-12-30 15:51:00 Marisabel Ho [facility] PROTHROMBIN TIME/INR 2022-12-30 15:51:00 Rosalee [facility] LACTATE DEHYDROGENASE 2022-12-30 15:48:00 Rosalee [facility] (LDH) [facility] COMPREHENSIVE METABOLIC 2022-12-30 15:48:00 Marisabel Ho [facility] MAGNESIUM 2022-12-30 15:48:00 Rosalee [facility] CALCIUM, IONIZED 2022-12-30 15:48:00 [facility] PHOSPHORUS 2022-12-30 15:48:00 [facility] CBC W/PLT COUNT & AUTO 2022-12-30 15:48:00 [facility] TYPE AND SCREEN, AUTOMATED 2022-12-30 15:48:00 [facility] CBC W/PLT COUNT & AUTO 2022-12-30 15:48:00 [facility] XR CHEST 1 VIEW PORTABLE / 2022-12-30 14:22:00 Tomas Wei [facility] BEDSIDE [facility] US PARACENTESIS 2022-12-30 12:34:00 Marisabel Ho [facility] BODY FLUID CULTURE + GRAM 2022-12-30 12:15:00 Marisabel Ho [facility] PROTEIN, BODY FLUID 2022-12-30 12:15:00 [facility] ALBUMIN, BODY FLUID 2022-12-30 12:15:00 [facility] AMYLASE PERITONEAL FLUID 2022-12-30 12:15:00 [facility] MISCELLANEOUS LAB ORDER 2022-12-30 12:15:00 Marisabel Ho [facility] BODY FLUID CELL COUNT WITH 2022-12-30 11:59:00 Marisabel Ho [facility] CT ABDOMEN/PELVIS WITH IV 2022-12-30 10:45:[address] [facility] CONTRAST [facility] BODY FLUID CELL COUNT WITH 2022-12-30 10:01:00 Marisabel oH [facility] ALBUMIN PLEURAL FLUID 2022-12-30 10:01:[address] [facility] GLUCOSE PLEURAL FLUID 2022-12-30 10:01:[address] [facility] LACTATE DEHYDROGENASE 2022-12-30 10:01:00 [facility] PLEURAL FLUID [facility] er PH, BODY FLUID 2022-12-30 10:01:[address] [facility] PROTEIN, TOTAL, PLEURAL 2022-12-30 10:01:00 Mark Wei [facility] CYTOLOGY 2022-12-30 09:33:00 Marisabel Ho [facility] BODY FLUID CULTURE + GRAM 2022-12-30 09:27:00 Bartsch, [facility]abel [facility] MISCELL[facility] ORDER 2022-12-30 09:26:00 Lima Spear [facility] BLOOD CULTURE 2022-12-29 23:16:00 [facility] W/ MICROSCOPIC 2022-12-29 21:23:00 [facility] PROTEIN, RANDOM URINE 2022-12-29 21:23:00 [facility] CREATININE, RANDOM URINE 2022-12-29 21:23:00 [facility] PROCALCITONIN 2022-12-29 17:04:00 [facility] LACTIC ACID, VENOUS 2022-12-29 17:04:00 [facility] XR CHEST 1 VIEW PORTABLE / 2022-12-29 15:48:00 Marisabel Ho [facility] B-TYPE NATRIURETIC FACTOR 2022-12-29 14:58:00 [facility] CBC W/PLT COUNT & AUTO 2022-12-29 13:10:00 Marisabel Ho [facility] COMPREHENSIVE METABOLIC 2022-12-29 13:10:00 Marisabel Ho [facility] PROTHROMBIN TIME/INR 2022-12-29 13:10:00 Marisabel Ho [facility] MAGNESIUM 2022-12-29 13:10:00 Marisabel Ho [facility] CBC W/PLT COUNT & AUTO 2022-12-29 13:10:00 [facility] PREPARE PLASMA 2022-12-01 23:54:00 [facility] CBC (HEMOGRAM ONLY) 2022-12-01 03:41:00 [facility] COMPREHENSIVE METABOLIC 2022-12-01 03:41:00 Graham [facility] REPORT OF PROCEDURE - 2022-11-30 12:20:26 Jeannette, [facility] ENDOSCOPY [facility] FL FLUORO NON-SPECIFIC UP 2022-11-30 09:10:00 Jeannette, [facility] TO 1 HOUR [facility] FINE NEEDLE ASPIRATION BY 2022-11-30 08:48:00 Jeannette, [facility] FINE NEEDLE ASPIRATE (FNA) 2022-11-30 08:48:00 Jeannette, [facility] ESOPHAGOSCOPY, WITH 2022-11-30 08:16:00 [facility], [facility] ENDOSCOPIC ULTRASOUND Medical Ce nter ULTRASOUND, UPPER GI 2022-11-30 08:16:00 Jeannette, [facility] TRACT, ENDOSCOPIC, [facility] FINE NEEDLE ASPIRATION PROCEDURE W/ C-ARM 2022-11-30 08:16:00 Jeannette, [facility] TRANSFUSE PLASMA 2022-11-30 05:15:00 Graham [facility] CBC (HEMOGRAM ONLY) 2022-11-30 03:22:00 Graham [facility] COMPREHENSIVE METABOLIC 2022-11-30 03:22:00 [facility] PROTHROMBIN TIME/INR 2022-11-30 03:22:00 Graham [facility] PROTHROMBIN TIME/INR 2022-11-29 22:46:00 Jen Samuel [facility] TYPE AND SCREEN, AUTOMATED 2022-11-29 22:46:00 Graham [facility] ANTIBODY SCREEN 2022-11-29 22:46:[address] [facility] NM HEPATOBILIARY (HIDA) 2022-11-29 12:01:00 Dipak Arreola [facility] SCAN WITH [facility] Cente r FRACTION CBC (HEMOGRAM ONLY) 2022-11-29 04:42:00 Graham [facility] COMPREHENSIVE METABOLIC 2022-11-29 04:42:00 Graham [facility] CBC (HEMOGRAM ONLY) 2022-11-28 00:55:00 Graham [facility] COMPREHENSIVE METABOLIC 2022-11-28 00:55:00 Graham [facility] CBC (HEMOGRAM ONLY) 2022-11-27 04:39:00 [facility] METABOLIC 2022-11-27 04:39:00 Graham [facility] CBC W/PLT COUNT & AUTO 2022-11-26 04:43:00 Castillo [facility] BASIC METABOLIC PANEL 2022-11-26 04:43:00 Castillo [facility] HEPATIC FUNCTION PANEL 2022-11-26 04:43:00 Castillo [facility] CBC W/PLT COUNT & AUTO 2022-11-26 04:43:00 Castillo [facility] PROTHROMBIN TIME/INR 2022-11-26 04:43:00 Castillo [facility] MR ABDOMEN WITHOUT IV 2022-11-25 21:58:00 Castillo [facility] CONTRAST [facility] US ABDOMEN LIMITED 2022-11-25 16:23:00 Castillo [facility] URINE CULTURE 2022-11-25 09:58:00 Castillo [facility] URINALYSIS W/ REFLEX URINE 2022-11-25 09:58:00 Castillo [facility] ABORH, MANUAL 2022-11-25 08:39:00 Leydi Gaitan [facility] CBC W/PLT COUNT & AUTO 2022-11-25 06:36:00 Judi Vigil [facility] CBC W/PLT COUNT & AUTO 2022-11-25 06:36:00 Judi Vigil [facility] COMPREHENSIVE METABOLIC 2022-11-25 06:36:00 Judi Vigil [facility] MAGNESIUM 2022-11-25 06:36:00 Judi Vigil [place] PHOSPHORUS 2022-11-25 06:36:00 Judi Vigil [place] [facility] PROTHROMBIN TIME/INR 2022-11-25 06:36:00 Judi Vigil [facility] BILIRUBIN, DIRECT 2022-11-25 06:36:00 Kelly Finley [facility] TYPE AND SCREEN, AUTOMATED 2022-11-25 06:35:00 Kirk Vigil [facility] Plan of Care Planned Activity Planned [...] Center INFLUENZA VACCINE (Season Ended)] Future Scheduled 2023-04-21 [facility] Test 16:10:33 malignant neoplasm of colon (procedure) [code = 017775672] Future Scheduled 2023-04-21 [facility] Test 16:10:33 malignant neoplasm of colon (procedure) [code = 231266740] Future Scheduled 2023-04-21 [facility] Test 16:10:33 malignant neoplasm of colon (procedure) [code = 205240963] Future Scheduled 2023-04-21 COVID-19 VACCINE (#1) [facility] 16:10:33 [code = COVID-19 VACCINE (#1)] Future Scheduled 2023-04-21 [facility] Test 16:10:33 malignant neoplasm of cervix (procedure) [code = 216504126] Future Scheduled 2023-04-21 BREAST CANCER [facility] Test 16:10:33 SCREENING [code = BREAST CANCER SCREENING] Future Scheduled 2023-04-21 [facility] Test 16:10:33 malignant neoplasm of colon (procedure) [code = 865891018] Future Scheduled 2023-04-21 [facility] Test 16:10:33 malignant neoplasm of colon (procedure) [code = 693069194] Future Scheduled 2023-04-21 SHINGLES VACCIN[facility] Test 16:10:33 of 2) [code = SHINGLES VACCINES (1 of 2)] Future Scheduled 2023-04-21 INFLUENZA VACCINE [facility] Test 16:10:33 [code = INFLUENZA VACCINE] Future Scheduled 2023-04-12 [facility] Test 15:44:48 malignant neoplasm of colon (procedure) [code = 403529311] Future Scheduled 2023-04-12 [facility] Test 15:44:48 malignant neoplasm of colon (procedure) [code = 274382414] Future Scheduled 2023-04-12 [facility] Test 15:44:48 malignant neoplasm of colon (procedure) [code = 144536172] Future Scheduled 2023-04-12 COVID-19 VACCINE (#1) [facility] Test 15:44:48 [code = COVID-19 VACCINE (#1)] Future Scheduled 2023-04-12 [facility] Test 15:44:48 malignant neoplasm of cervix (procedure) [code = 022628907] Future Scheduled 2023-04-12 BREAST CANCER [facility] Test 15:44:48 SCREENING [code = BREAST CANCER SCREENING] Future Scheduled 2023-04-12 [facility] Test 15:44:48 malignant neoplasm of colon (procedure) [code = 354874641] Future Scheduled 2023-04-12 [facility] Test 15:44:48 malignant neoplasm of colon (procedure) [code = 424225764] Future Scheduled 2023-04-12 SHINGLES VACCINES ([address] 15:44:48 of 2) [code = SHINGLES VACCINES (1 of 2)] Future Scheduled 2023-04-12 INFLUENZA VACCINE [facility] Test 15:44:48 [code = INFLUENZA VACCINE] Future Scheduled 2023-04-01 [facility] Test 11:23:59 malignant neoplasm of colon (procedure) [code = 230066925] Future Scheduled 2023-04-01 Screening for [facility] [facility] Test 11:23:59 malignant neoplasm of colon (procedure) [code = 393433807] Future Scheduled 2023-04-01 [facility]:23:59 malignant neoplasm of colon (procedure) [code = 484451918] Future Scheduled 2023-04-01 COVID-19 VACCINE (#1) [facility] Test 11:23:59 [code = COVID-19 VACCINE (#1)] Future Scheduled 2023-04-01 [facility] 11:23:59 malignant neoplasm of cervix (procedure) [code = 238680709] Future Scheduled 2023-04-01 BREAST [facility] 11:23:59 SCREENING [code = BREAST CANCER SCREENING] Future Scheduled 2023-04-01 [facility] 11:23:59 malignant neoplasm of colon (procedure) [code = 927708231] Future Scheduled 2023-04-01 [facility] 11:23:59 malignant neoplasm of colon (procedure) [code = 422021672] Future Scheduled 2023-04-01 SHINGLES VACCINES (1 [facility] 11:23:59 of 2) [code = SHINGLES VACCINES (1 of 2)] Future Scheduled 2023-04-01 INFLUENZA VACCINE [facility] 11:23:59 [code = INFLUENZA VACCINE] Future Scheduled 2023-03-11 [facility] 10:38:56 malignant neoplasm of colon (procedure) [code = 712367872] Future Scheduled 2023-03-11 [facility] 10:38:56 malignant neoplasm of colon (procedure) [code = 947739202] Future Scheduled 2023-03-11 [facility] 10:38:56 malignant neoplasm of colon (procedure) [code = 691702261] Future Scheduled 2023-03-11 COVID-19 VACCINE (#1) [facility] Test 10:38:56 [code = COVID-19 VACCINE (#1)] Future Scheduled 2023-03-11 [facility] 10:38:56 malignant neoplasm of cervix (procedure) [code = 569349269] Future Scheduled 2023-03-11 [facility] 10:38:56 SCREENING [code = BREAST CANCER SCREENING] Future Scheduled 2023-03-11 [facility] 10:38:56 malignant neoplasm of colon (procedure) [code = 657039974] Future Scheduled 2023-03-11 [facility] 10:38:56 malignant neoplasm of colon (procedure) [code = 575311544] Future Scheduled 2023-03-11 SHINGLES VACCINES (1 [facility] 10:38:56 of 2) [code = SHINGLES VACCINES (1 of 2)] Future Scheduled 2023-03-11 IN[facility]ENZA VACCINE [facility] 10:38:56 [code = INFLUENZA VACCINE] Future Scheduled 2023-02-14 [facility] 23:01:21 malignant neoplasm of colon (procedure) [code = 371255782] Future Scheduled 2023-02-14 [facility] 23:01:21 malignant neoplasm of colon (procedure) [code = 708883480] Future Scheduled 2023-02-14 [facility] 23:01:21 malignant neoplasm of colon (procedure) [code = 811103436] Future Scheduled 2023-02-14 COVID-19 VACCINE (#1) [facility] [place] [place] Hospital Test 23:01:21 [code = COVID-19 VACCINE (#1)] Future Scheduled 2023-02-14 [facility] 23:01:21 malignant neoplasm of cervix (procedure) [code = 357951211] Future Scheduled 2023-02-14 [facility] 23:01:21 SCREENING [code = BREAST CANCER SCREENING] Future Scheduled 2023-02-14 [facility] 23:01:21 malignant neoplasm of colon (procedure) [code = 195751086] Future Scheduled 2023-02-14 [facility] 23:01:21 malignant neoplasm of colon (procedure) [code = 715611839] Future Scheduled 2023-02-14 SHINGLES VACCINES (1 [facility] 23:01:21 of 2) [code = SHINGLES VACCINES (1 of 2)] Future Scheduled 2023-02-14 INFLUENZA VACCINE [facility] 23:01:21 [code = INFLUENZA VACCINE] Future Scheduled 2023-01-06 COVID-19 VACCINE (#1) [facility] 08:48:32 [code = COVID-19 VACCINE (#1)] Future Scheduled 2023-01-06 [facility] 08:48:32 malignant neoplasm of cervix (procedure) [code = 969981017] Future Scheduled 2023-01-[address] [facility] Test 08:48:32 SCREENING [code = BREAST CANCER SCREENING] Future Scheduled 2023-01-[address] [facility] Test 08:48:32 [code = COLONOSCOPY SCREENING] Future Scheduled 2023-01-06 SHINGLES VACCINES (1 Met [facility] Test 08:48:32 of 2) [code = SHINGLES VACCINES (1 of 2)] Future Scheduled 2023-01-06 INFLUENZA VACCINE Method [facility] Hospital Test 08:48:32 [code = INFLUENZA VACCINE] Future Scheduled 2022-12-17 INFLUENZA VACCINE Method [facility] Hospital Test 12:12:44 [code = INFLUENZA VACCINE] Future Scheduled 2022-12-17 COVID-19 VACCINE (#1) [facility] Test 12:12:44 [code = COVID-19 VACCINE (#1)] Future Scheduled 2022-12-[address] [facility] Test 12:12:44 malignant neoplasm of cervix (procedure) [code = 354101626] Future Scheduled 2022-12-[address] [facility] Test 12:12:44 SCREENING [code = BREAST CANCER SCREENING] Future Scheduled 2022-12-[address] [facility] Test 12:12:44 [code = COLONOSCOPY SCREENING] Future Scheduled 2022-12-17 SHINGLES VACCINES (1 Met [facility] Test 12:12:44 of 2) [code = SHINGLES VACCINES (1 of 2)] Future Scheduled 2022-12-17 INFLUENZA VACCINE Method [facility] Hospital Test 12:12:44 [code = INFLUENZA VACCINE] Future Scheduled 2022-12-17 COVID-19 VACCINE (#1) [facility] Test 12:12:44 [code = COVID-19 VACCINE (#1)] Future Scheduled 2022-12-[address] [facility] Test 12:12:44 malignant neoplasm of cervix (procedure) [code = 292581613] Future Scheduled 2022-12-[address] [facility] Test 12:12:44 SCREENING [code = BREAST CANCER SCREENING] Future Scheduled 2022-12-[address] [facility] Test 12:12:44 [code = COLONOSCOPY SCREENING] Future Scheduled 2022-12-17 [facility] 12:12:44 of 2) [code = SHINGLES VACCINES (1 of 2)] Future Scheduled 2022-09-[address] [facility] Test 11:52:03 [code = COLONOSCOPY SCREENING] Future Scheduled 2022-09-05 [facility]INES [facility] 11:52:03 of 2) [code = SHINGLES VACCINES (1 of 2)] Future Scheduled 2022-09-05 INFLUENZA VACCINE Method [facility] Hospital Test 11:52:03 [code = INFLUENZA VACCINE] Future Scheduled 2022-09-05 COVID-19 VACCINE (#1) [facility] Test 11:52:03 [code = COVID-19 VACCINE (#1)] Future Scheduled 2022-09-[address] [facility] Test 11:52:03 malignant neoplasm of cervix (procedure) [code = 359659614] Future Scheduled 2022-09-[address] [facility] Test 11:52:03 SCREENING [code = BREAST [...] [facility] s Test 00:00:00 (procedure) [code = [facility] 28800589] Future Scheduled [address] [facility] 00:[facility]:00 (procedure) [code = [facility] 85973546] Future Scheduled [address] [facility] Test 00:00:00 (procedure) [code = [facility] 34648242] Future Scheduled [address] [facility] 00:[facility]:00 [facility] cervix (procedure) [code = 739829397] Future Scheduled [address] [facility] Test 00:00:00 malignant neoplasm of [facility] cervix (procedure) [code = 731591002] Future Scheduled [address] [facility] [facility] Test 00:00:00 malignant neoplasm of [facility] cervix (procedure) [code = 056800645] Future Scheduled 1983 DTAP/TDAP/TD VACCINES [facility] [...] [facility] l [facility] breast (procedure) [code = 481091420] Future Scheduled [address] [facility] Test 00:00:00 (combo) [code = CT Medical C enter Colonography (combo)] Future Scheduled [address] [facility] Test 00:00:00 [facility] colon (procedure) [code = 385185218] Future Scheduled [address] [facility] Test 00:00:00 [facility] colon (procedure) [code = 823837511] Future Scheduled [address] [facility] Test 00:00:00 [facility] colon (procedure) [code = 654756312] Future Scheduled [address] [facility] Test 00:00:00 [facility] colon (procedure) [code = 446839471] Future Scheduled 1965 S[facility] Future Scheduled [address] [facility] 00:00:00 [facility] breast (procedure) [code = 292417996] Future Scheduled [address] [facility] 00:00:00 (combo) [code = CT Medical C enter Colonography (combo)] Future Scheduled [address] [facility] Test 00:00:00 [facility] colon (procedure) [code = 298418132] Future Scheduled [address] [facility] Test 00:00:00 [facility] colon (procedure) [code = 837312654] Future Scheduled [address] [facility] Test 00:00:00 [facility] colon (procedure) [code = 623108477] Future Scheduled [address] [facility] Test 00:00:00 [facility] colon (procedure) [code = 507964672] Future Scheduled 1965 [facility] Medical Wali r Future Scheduled [address] [facility] Test 00:00:00 [facility] breast (procedure) [code = 867644645] Future Scheduled [address] [facility] Test 00:00:00 (combo) [code = CT Medical C enter Colonography (combo)] Future Scheduled [address] [facility] Test 00:00:00 [facility] colon (procedure) [code = 814551728] Future Scheduled [address] [facility] Test 00:00:00 [facility] colon (procedure) [code = 305014190] Future Scheduled [address] [facility] Test 00:00:00 malignant ne[facility] colon (procedure) [code = 822518699] Future Scheduled [address] [facility] Test 00:00:00 malignant neoplasm of [facility] colon (procedure) [code = 027904988] Future Scheduled 1965 [facility]] Medical Wali r Encounters Start End Encounter Admission Attending Care Care Encounter Source Date/Time Date/Time Type Type Clinicians Facility Department ID 2023-03-21 Inpatient ER WAYNE, [facility] [id number] SLE 16:28:17 JONI-UY 2023-03-21 Inpatient ER DUSTY, [facility] [id number] [facility] 13:20:03 NAJAMUS 2023-03-21 Inpatient ER DUSTY, [facility] [id number] SLE 12:01:44 [facility] 2023-[facility]19 Inpatient ER KYLE, [facility] [id number] SLE 06:54:39 ASHLEY 2023-03-19 Inpatient ER BRANN, [facility]H SLEH [id number] SLEH 06:54:33 ASHLEY 2023-03-19 Inpatient ER HERMAN, [facility]H SLEH [id number] SLEH 05:45:27 PAUL 2023-02-17 Inpatient ER HAMIDA, SLEH SLEH [id number] SLEH 07:06:50 [facility] 2023-02-17 Inpatient ER HAMIDA, SLEH SLEH [id number] SLEH 07:04:58 [facility] 2023-06-14 2023-06-14 Outpatient EL SLE SLE [id number] SLEH 00:00:00 00:00:00 2023-05-12 2023-05-12 Outpatient EL SLE SLE [id number] SLEH 00:00:00 00:00:00 2023-05-06 2023-05-06 Outpatient JOLLY ALFREDO SLE SLE [id number] SLEH 00:00:00 00:00:00 SAMANTHA 2023-05-02 2023-05-02 Outpatient JOLLY ALFREDO SLE SLE [id number] SLEH 00:00:00 00:00:00 SAMANTHA 2023-04-29 2023-04-29 Outpatient JOLLY ALFREDO SLE SLE [id number] SLEH 00:00:00 00:00:00 SAMANTHA 2023-04-25 2023-04-25 Outpatient JOLLY ALFREDO SLE SLE [id number] SLEH 00:00:00 00:00:00 SAMANTHA 2023-04-22 2023-04-22 Outpatient JOLLY ALFREDO SLE SLE [id number] SLEH 00:00:00 00:00:00 SAMANTHA 2023-04-22 2023-04-22 Outpatient JOLLY ALFREDO SLE SLE [id number] SLEH 00:00:00 00:00:00 SAMANTHA 2023-04-21 2023-04-21 Outpatient JOLLY GOMEZ SLE SLE [id number] SLEH 08:48:47 08:48:47 AMIE 2023-04-19 2023-04-19 [facility] [id number] [facility] 13:47:04 13:47:04 SAMANTHA 2023-04-18 2023-04-18 Emergency ER JOSE DAVID [facility] Emergency [id number] SLEH 09:09:00 21:34:00 SOFIAAkhil 2023-04-18 2023-04-18 Emergency ER WAYNE SLEH SLE [id number] SLEH 15:35:24 15:35:24 JONI-UY 2023-04-18 2023-04-18 Emergency ER JOSELIN SLE SLE [id number] SLEH 13:28:04 13:28:04 , JEAN 2023-04-18 2023-04-18 Emergency ER JOSELIN SLE SLE [id number] SLEH 09:44:58 09:44:58 , JEAN 2023-04-18 2023-04-18 Outpatient EL SLE SLE [id number] SLEH 00:00:00 00:00:00 2023-04-18 2023-04-18 Outpatient EL LISA SLE SLE [id number] SLEH 00:00:00 00:00:00 [facility] 2023-04-18 2023-04-18 Outpatient EL SLEH SLE [id number] SLEH 00:00:00 00:00:00 2023-04-16 2023-04-16 Emergency ER SARAH [facility] Emergency [id number] SLEH 11:50:00 19:19:00 KRIS ARAGON 2023-04-16 2023-04-16 Emergency ER BRIGIDO, SLE SLE [id number] SLEH 12:38:50 12:38:50 IFRAH 2023-04-15 2023-04-15 Outpatient EL WAYNE, SLEH SLE [id number] SLEH 11:53:18 23:59:00 JONI-UY 2023-04-15 2023-04-15 Outpatient EL SAYDA SLEH SLE [id number] SLEH 08:00:05 11:52:00 SAMANTHA 2023-04-12 2023-04-12 Outpatient EL JEANNETTE, SLE SLE [id number] SLEH 15:44:45 23:59:00 ARCENIO 2023-04-12 2023-04-12 Outpatient EL JEANNETTE, SLEH Surgery [id number] SLEH 06:46:00 14:10:00 ACRENIO 2023-04-11 2023-04-11 Outpatient EL WAYNE, SLEH SLEH [id number] SLEH 12:43:09 23:59:00 JONI-UY 2023-04-11 2023-04-11 Outpatient JOLLY ALFREDO SLEH SLEH [id number] SLEH 08:40:34 12:42:00 SAMANTHA 2023-04-08 2023-04-08 Outpatient EL WAYNE SLEH SLEH [id number] SLEH 14:45:43 23:59:00 JONI-UY 2023-04-08 2023-04-08 Outpatient JOLLY ALFREDO SLEH SLEH [id number] SLEH 13:22:14 14:44:00 SAMANTHA 2023-04-08 2023-04-08 Outpatient JOLLY LAZO SLEH SLEH [id number] SLEH 00:00:00 00:00:00 ARCENIO 2023-04-04 2023-04-04 Emergency ER ALISSA, SLEH SLEH [id number] SLEH 15:50:34 23:59:00 ROXANNA 2023-04-04 2023-04-04 Emergency ER WAYNE, SLEH Emergency [id number] SLEH 10:52:00 18:02:00 SERGIO 2023-04-04 2023-04-04 Emergency ER ALISSA, SLEH SLEH [id number] SLEH 11:09:51 11:09:51 ROXANNA 2023-04-04 2023-04-04 Outpatient JOLLY TAYLOR SLEH SLEH [id number] SLEH 09:07:02 10:51:00 DANUTA 2023-04-04 2023-04-04 Outpatient JOLLY ALFREDO SLEH SLEH [id number] SLEH 07:11:40 09:06:00 SAMANTHA 2023-04-01 2023-04-01 Outpatient CARLOS HANLEY SLEH SLEH [id number] SLEH 14:06:52 23:59:00 2023-04-01 2023-04-01 Outpatient JOLLY ALFREDO SLEH SLEH [id number] SLEH 11:23:55 14:05:00 SAMANTHA 2023-03-30 2023-03-30 Emergency ER [facility] SLE Emergency [id number] SLEH 12:54:00 21:42:00 ROLEONARD 2023-03-30 2023-03-30 Emergency ER [facility] SLE SLEH [id number] SLEH 19:18:13 19:18:13 ROLEONARD 2023-03-28 2023-03-28 Outpatient EL WAYNE, [facility] [id number] SLEH 10:32:44 23:59:00 JONI-UY 2023-03-28 2023-03-28 Outpatient JOLLY ALFREDO [facility] [id number] SLEH 08:27:00 10:31:00 SAMANTHA 2023-03-25 2023-03-25 Outpatient JOLLY BLACK [facility] [id number] SLEH 14:29:31 23:59:00 JONI-UY 2023-03-25 2023-03-25 Outpatient JOLLY ALFREDO [facility] [id number] SLEH 10:29:27 14:28:00 SAMANTHA 2023-03-18 2023-03-21 Inpatient ER [facility] Neurology [id number] SLEH 14:40:00 21:17:00 MARIO 2023-03-18 2023-03-18 Outpatient JOLLY SALOMONLER, SLSL [facility] [id number] SLSL 00:00:00 00:00:00 SAMANTHA 2023-03-14 2023-03-14 Outpatient HARRIS, SLSL SLSL [id number] SLSL 14:32:47 23:59:00 MP 2023-03-14 2023-03-14 Outpatient JOLLY SAYDA, SLSL SLSL [id number] SLSL 13:16:04 14:31:00 SAMANTHA 2023-03-11 2023-03-11 Outpatient BLOCK, SLSL SLSL [id number] SLSL 11:49:46 23:59:00 CAROLYN 2023-03-11 2023-03-11 Outpatient JOLLY ALFREDO, SLSL SLSL [id number] SLSL 10:38:51 11:48:00 SAMANTHA 2023-03-09 2023-03-09 Outpatient VIRGILIO DOAN SLE [id number] SLEH 15:31:24 23:59:00 AMIE 2023-03-09 2023-03-09 Outpatient VIRGILIO DOAN SLE [id number] SLEH 15:31:05 23:59:00 AMIE 2023-03-09 2023-03-09 Outpatient VIRGILIO DOAN SLE [id number] SLEH 15:27:00 15:30:00 AMIE 2023-03-09 2023-03-09 Out[facility] [id number] [facility] 11:45:35 14:14:00 AMIE 2023-03-09 2023-03-09 Outpatient VIRGILIO BURCH SLE [id number] SLEH 13:43:52 13:43:52 HIRAM 2023-03-09 2023-03-09 Outpatient EL SLE SLE [id number] SLEH 13:38:04 13:38:04 2023-03-09 2023-03-[address] [facility], [facility] [id number] [facility] 12:00:00 12:00:00 [facility] 64 [facility]23-03-09 2023-03-09 Outpatient VIRGILIO DOAN SLE [id number] SLEH 11:45:00 11:44:00 AMIE 2023-03-09 2023-03-09 Outpatient EL SLE SLE [id number] SLEH 07:29:31 07:29:31 2023-03-09 2023-03-09 Outpatient EL SLE SLE [id number] SLEH 07:28:52 07:28:52 2023-03-09 2023-03-09 Outpatient EL VERONICA KRAMER SLE SLEH [id number] SLEH 07:28:25 07:28:25 2023-03-09 2023-03-09 Outpatient EL SLE SLE [id number] SLEH 07:27:43 07:27:43 2023-03-09 2023-03-09 Outpatient JOLLY NAIDA SLE SLE [id number] SLEH 07:27:20 07:27:20 LUCY 2023-03-09 2023-03-09 Outpatient EL SLE SLE [id number] SLE 07:26:14 07:26:14 2023-03-09 2023-03-09 Outpatient EL SLE SLE [id number] SLE 07:25:32 07:25:32 2023-03-09 2023-03-09 [facility] [id number] SLE 07:25:08 07:25:08 2023-03-09 2023-03-09 Outpatient EL PATRICIA, [facility] [id number] SLE 00:00:00 00:00:00 AMIE 2023-03-09 2023-03-09 Outpatient EL PATRICIA [facility] [id number] SLE 00:00:00 00:00:00 AMIE 2023-03-08 2023-03-08 Outpatient NATALEE, GOLDIE [facility] SLSL [id number] SLSL 12:43:34 23:59:00 2023-03-08 2023-03-08 Outpatient EL [facility]GIANA[facility] [id number] [facility] 11:13:32 12:42:00 DIPABEN 2023-03-08 2023-03-08 Outpatient EL GE[facility]GIANA, [facility] [id number] SLEH 00:00:00 00:00:00 DIPABEN 2023-03-03 2023-03-03 Outpatient EL GEORGIANA, SLSL Inter Rad [id number] SLSL 12:17:20 15:00:00 DIPABEN 2023-03-03 2023-03-03 Outpatient EL BLOCK, SLSL SLSL [id number] SLSL 14:18:43 14:18:43 CAROLYN 2023-03-02 2023-03-02 Outpatient EL [facility]GIANA[facility] [id number] SLE 00:00:00 00:00:00 DIPABEN 2023-02-26 2023-02-26 Emergency ER POLO, [facility] Emergency [id number] SLE 15:45:00 22:21:00 ERIKA 2023-02-26 2023-02-26 Emergency ER POLO, [facility] [id number] SLEH 20:13:37 20:13:37 ERIKA 2023-02-26 2023-02-26 Outpatient POLO SLEH SLEH [id number] SLEH 00:00:00 00:00:00 ERIKA 2023-02-26 2023-02-26 Outpatient POLO SLEH SLEH [id number] SLEH 00:00:00 00:00:00 ERIKA 2023-02-21 2023-02-21 Outpatient JOLLY TAYLOR SLEH SLEH [id number] SLEH 11:38:15 23:59:00 DANUTA 2023-02-21 2023-02-21 Outpatient JOLLY STONER, SLEH SLEH [id number] SLEH 08:20:14 11:37:00 ROMANABEN 2023-02-17 2023-02-17 Outpatient OSVALDO SLEH SLEH [id number] SLEH 08:30:58 23:59:00 DANUTA 2023-02-15 2023-02-17 Inpatient ER HAMIDA, [facility] Med [id number] SLEH 22:54:00 11:59:00 HEMANT 2023-02-16 2023-02-16 Outpatient JOLLY WRIGHT SLEH SLEH [id number] SLEH 06:04:31 23:59:00 ASHLEY 2023-02-04 2023-02-04 Outpatient JOLLY STONER SLEH SLEH [id number] SLEH 09:09:56 23:59:00 ROMANABEN 2023-01-25 2023-01-25 Out[facility] [id number] SLEH 13:24:47 13:24:47 SAMANTHA 2023-01-20 2023-01-23 Inpatient ER MASSUMI, [facility] Emergency [id number] SLEH 13:21:00 15:13:00 HEATHER 2022-12-29 2023-01-04 Inpatient ER BRIGIDA, [facility] Internal [id number] SLEH 12:45:00 18:19:[facility] 2022-12-31 2022-12-31 Anesthesia Pathikonda, Du [facility] [id number] [facility] 08:14:00 09:23:00 [facility] 2022-12-31 Surgery Diaz, [facility] [id number] 08:00:00 09:00:00 Gerardo [facility] 2022-12-29 2022-12-[address] [facility] [id number] 12:00:[facility] 13:00:00 Visit Amie Gomez [facility] 2022-12-29 2022-12-29 Outpatient EL PATRICIA [facility] [id number] SLE 00:00:00 00:00:00 AMIE 2022-12-29 2022-12-29 Travel [facility] [id number] 00:[facility] 00:00:00 [facility] 2022-11-25 2022-12-01 Inpatient ER [facility] Med [id number] SLE 04:43:00 11:42:00 [facility] 2022-11-25 2022-12-01 Hospital ER Enmanuel Megha Jayssa [facility] [id number] 04:43:00 11:42:00 Encounter [facility]ylie Chong [facility] Pierre 2022-11-30 2022-11-[address] [facility] [id number] 08:16:00 09:34:00 Event Monica Ruiz [facility] 2022-11-30 2022-11-30 Surgery Jeannette, [facility] [id number] 08:02:00 09:00:00 [facility] Results Test Description Test Time Test Comments Results Result [facility] Comments US THORACENTESIS 2023-04-18 17:12:11 [facility] : 1965 Sex: F Ultra sound guided left-sided thoracentesis.Clinical History: Left pleural effusion.Modality: Ultrasound.Sedation: None. Operations Clerk: Ellis Lylesistant: None. Estimated Blood Loss: 1ccSpecimen: [...] The area wasanesthetized with 2% lidocaine, a 4 [place] one-step catheter wasadvanced into the pleural space under ultrasound guidance. Aftercompletion of drainage, the catheter was removed. There was no evidenceof immediate complication. Post procedure chest x-ray demonstrated nopneumothorax. IMPRESSION:Impression: Successful and uncomplicated ultrasound guided left sided thoracentesis.Gordy horne Signed By: Mikael Darnell04/18/2023 17:14 CDTWorkstation Name: [id number] HEPATIC FUNCTION PANEL 2023-04-18 17:07:40 Test Item Value Reference Range Interpretation Comme nts TOTAL PROTEIN (BEAKER) (test code = 6.7 gm/dL 6.0-8.3 Specimen slightly hemolyzed 770) ALBUMIN (BEAKER) (test code = 1145) 2.9 g/dL 3.5-5.0 L Specimen slightly hemolyzed BILIRUBIN TOTAL (BEAKER) (test code = 1.6 mg/dL 0.2-1.2 H Specimen slightly hemolyzed 377) BILIRUBIN DIRECT (BEAKER) (test code 0.6 mg/dL 0.1-0.5 H Specimen slightly hemolyzed = 706) ALKALINE PHOSPHATASE (BEAKER) (test 83 U/L 40-150 code = 346) AST (SGOT) (BEAKER) (test code = 353) 57 U/L 5-34 H Specimen slightly hemolyzed ALT (SGPT) (BEAKER) (test code = 347) 26 U/L 6-55 Specimen slightly hemolyzed Neurology Stroke Physician ID - AAHAMIDSpecimen slightly ictericXR CHEST 1 VIEW PORTABLE / BEDSIDE 2023-04-18 16:09:37 [facility] : 1965 Sex: FTECHNIQUE: Frontal view of the chest.INDICATION: s/p thoracentesis.COMPARISON: 04/18/2023 at 10:12 AM.FINDINGS:LINES/TUBES: None.HEART AND MEDIASTINUM: Cardiomediastinal contour is stable. LUNGS: Improved aeration of the left lung base. No consolidation orpulmonary edema.PLEURA: Near-complete resolution of left pleural effusion. No rightpleural effusion. No pneumothorax.SOFT TISSUES AND BONES: Unremarkable.I MPRESSION:No pneumothorax status post left thoracentesis. Near complete resolutionof previously noted left pleural effusion. Improved aeration of the leftlung base.Electronically Signed By: Adilia Polanco04/18/2023 16:11 CDTWorkstation Name: [id number] CHEST 1 VIEW PORTABLE / [id number] 10:43:57[facility] PATIENCE PAREDES : 1965 Sex: FXR CHEST 1 VIEW PORTABLE / BEDSIDEINDICATION: SHORTNESS OF BREATHCOMPARISON: 04/16/2023TECHNIQUE: Portable frontal view(s) of the chest. FINDINGS: Support Lines and Devices: Stable. Lungs and pleura: Small tomoderate left pleural effusion. Leftretrocardiac opacity, representing singly or in combination pneum onia,atelectasis, or pleural effusion. No pneumothorax identified.Heart and mediastinum: Stable contours. Stable surgical changes.Additional findings: Mild spondylosis and facet arthropathy are presentwithin the spine.IMPRESSION:Small to moderate left pleural effusion, increased in size compared toprior exam. Electronically Signed By: Brian Gresham04/18/2023 10:46 CDTWorkstation Name: [id number] METABOLIC [id number] 10:31:06 Test Item Value Reference Range Interpretation Comments SODIUM (BEAKER) 134 meq/L 136-145 L (test code = 381) POTASSIUM 4.7 meq/L 3.5-5.1 Specimen slight ly (BEAKER) (test hemolyzed code = 379) CHLORIDE (BEAKER) 101 meq/L 98-107 (test code = 382) CO2 (BEAKER) 26 meq/L 22-29 (test code = 355) BLOOD UREA 33 mg/dL 7-21 H NITROGEN (BEAKER) (test code = 354) CREATININE 1.35 mg/dL 0.57-1.25 H Specimen slight ly (BEAKER) (test hemolyzed code = 358) GLUCOSE RANDOM 95 mg/dL 70-105 (BEAKER) (test code = 652) CALCIUM (BEAKER) 8.3 mg/dL 8.4-10.2 L (test code = 697) EGFR (BEAKER) 45 [...] not appl icable for dialysis patien ts Neurology Stroke Physician ID - AAHAMIDPROTHROMBIN TIME/[id number] 10:26:19 Test Item Value Reference Range Interpretation Comments PROTIME (BEAKER) 18.8 seconds 11.9-14.2 H (test code = 759) INR (BEAKER) (test 1.68 See_Comment [Automat ed message] code = 370) The system [employer] S[employer] generated this result transmitted ref erence range: <=5.90. The reference range was not used to int erpret this result as normal/abnormal . RECOMMENDED COUMADIN/WARFARIN INR THERAPY RANGESSTANDARD DOSE: 2.0 - 3.0 Includes: PROPHYLAXIS for venous thrombosis, systemic embolization; TREATMENT for venous thrombosis and/or pulmonary embolus.HIGH RISK: Target INR is 2.5-3.5 for patients with mechanical heart valves.CBC W/PLT COUNT & AUTO [id number] 10:19:31 Test Item Value Reference Range Interpretation Comments WHITE BLOOD CELL COUNT (BEAKER) 5.3 K/ L 3.5-10.5 (test code = 775) RED BLOOD CELL COUNT (BEAKER) 3.32 M/ L 3.93-5.22 L (test code = 761) HEMOGLOBIN (BEAKER) (test code = 11.7 GM/DL 11.2-15.7 410) HEMATOCRIT (BEAKER) (test code = 35.5 % 34.1-44.9 411) MEAN CORPUSCULAR VOLUME (BEAKER) [...] (test code = 413) NEUTROPHILS RELATIVE PERCENT 61 % (BEAKER) (test code = 429) LYMPHOCYTES RELATIVE PERCENT 16 % (BEAKER) (test code = 430) MONOCYTES RELATIVE PERCENT 17 % (BEAKER) (test code = 431) EOSINOPHILS RELATIVE PERCENT 5 % (BEAKER) (test code = 432) BASOPHILS RELATIVE PERCENT 1 % (BEAKER) (test code = 437) NEUTROPHILS ABSOLUTE COUNT 3.23 K/ L 1.56-6.13 (BEAKER) (test code = 670) LYMPHOCYTES ABSOLUTE COUNT 0.86 K/ L 1.18-3.74 L (BEAKER) (test code = 414) MONOCYTES ABSOLUTE COUNT (BEAKER) 0.89 K/ L 0.24-0.36 H (test code = 415) EOSINOPHILS ABSOLUTE COUNT 0.27 K/ L 0.04-0.36 (BEAKER) (test code = 416) BASOPHILS ABSOLUTE COUNT (BEAKER) 0.03 K/ L 0.01-0.08 (test code = 417) IMMATURE GRANULOCYTES-RELATIVE 0.40 % 0.00-1.00 PERCENT (BEAKER) (test code = 2801) [id number] 17:38:57 Test Item Value Reference Range Interpretation Comments CREATININE 1.33 mg/dL 0.57-1.25 H (BEAKER) (test code = 358) EGFR (BEAKER) 46 Interpretatio n of eGFR (test code = mL/min/1.73 values Stage De scription 1092) sq m Result G1 [place] l or high >=90 G2 Mildly decreased 60-89 G3a Mildl y to moderately 45-5 9 G3b Moderately to s everely 30-44 G4 Severl y decreased 15-29 G5 Kidney failure <15Reported eGF R is based on the CKD-EPI 1 equation that d oes not use a race coefficientEsti mated GFR is not as accur ate as Creatinine Carol moiz in predicting glom erular filtration rate . Estimated GFR is not appl icable for dialysis patien ts Neurology Stroke Physician ID - ADMINSARS-COV2/RT-PCR ([facility])2023-04-16 16:56:23 Test Item Value Reference Range Interpretation Comments SARS-COV2/RT-PCR Negative Negative The SARS-Co V-2 target (test code = nucleic acids a re not [id number]) detected in thi s specimen. Negative result s do not preclude SARS-C oV-2 infection and s hould not be used as the dominga e basis for patient managem ent decisions. Nega tive results must be combine d with clinical observ ations, patient history , and epidemiological information. A false negativ e result may occur if a spec imen is improperly juan josé ected, transported or handled. This SARS CoV-2 test is a rapid, real-time RT-PC R test intended for th e qualitative detection of nu cleic acid from SARS-CoV-2 in a nasopharyngeal swab specimen collected from individuals suspected of CO VID-19 by their healthcar e provider. This test has been authorized by FDA under an EUA for use by authorized laboratories. This test is only authorized for the duration of the declaration that circumstances exist justifying the authorization of emergency use of in vitro diagnostic tests for detection and/or diagnosis of COVID-19 under Section 564(b)(1) of the Federal Food, Drug and Cosmetic Act, 21 U.S.C. 360bbb-3(b)(1), unless the authorization is terminated or revoked sooner. Fact Sheet for Healthcare Providers: https://www.[employer].co m/Documents/Xpert%20Xpress%20SARS%20CoV-2/Fact%20Sheets/302-6602%87KXWP-LYZ-3%20 HEALTHCARE%20PROVIDERS%20FACT%20SHEET.pdf Fact Sheet for Healthcare Patients: https://www.[employer]/Documents/Xpert%20Xp ress%20SARS%20CoV-2/Fact%20Sheets/302-6981%09LNWT-YVM-4%20PATIENT%20FACT%20SHEET .pdfCOMPREHENSIVE METABOLIC [id number] 15:37:16 Test Item Value Reference Range Interpretation Comments TOTAL PROTEIN 6.8 gm/dL 6.0-8.3 Specimen moder ately (BEAKER) (test hemolyzed code = 770) ALBUMIN (BEAKER) 2.3 g/dL 3.5-5.0 L Specimen mo derately (test code = 1145) hemolyzed ALKALINE 97 U/L 40-150 PHOSPHATASE (BEAKER) (test code = 346) BILIRUBIN TOTAL 1.2 mg/dL 0.2-1.2 Specimen mod erately (BEAKER) (test hemolyzed code = 377) SODIUM (BEAKER) 132 meq/L 136-145 L (test code = 381) POTASSIUM (BEAKER) 5.0 meq/L 3.5-5.1 Specimen moderately (test code = 379) hemolyzed CHLORIDE (BEAKER) 100 meq/L 98-107 (test code = 382) CO2 (BEAKER) (test 25 meq/L 22-29 code = 355) BLOOD UREA 32 mg/dL 7-21 H NITROGEN (BEAKER) (test code = 354) CREATININE 1.45 mg/dL 0.57-1.25 H Specimen modera tely (BEAKER) (test hemolyzed code = 358) GLUCOSE RANDOM 102 mg/dL 70-105 (BEAKER) (test code = 652) CALCIUM (BEAKER) 7.7 mg/dL 8.4-10.2 L (test code = 697) AST (SGOT) 64 U/L 5-34 H Specimen modera tely (BEAKER) (test hemolyzed code = 353) ALT (SGPT) 30 U/L 6-55 Specimen modera tely (BEAKER) (test hemolyzed code = 347) EGFR (BEAKER) 42 Interpretatio n of eGFR (test code = [...] not appl icable for dialysis patien ts Neurology Stroke Physician ID - ADMINLACTIC ACID, [id number] 15:31:59 Test Item Value Reference Range Interpretation Comments LACTATE BLOOD VENOUS 1.53 mmol/L 0.50-2.00 Specime n moderately (2) (BEAKER) (test hemolyzed code = 7741) Neurology Stroke Physician ID - ADMINCOMPREHENSIVE METABOLIC [id number] 14:06:53 Test Item Value Reference Range Interpretation Comments TOTAL PROTEIN 7.3 gm/dL 6.0-8.3 Specimen marke dly (BEAKER) (test hemolyzed code = 770) ALBUMIN (BEAKER) 2.4 g/dL 3.5-5.0 L Specimen ma rkedly (test code = 1145) hemolyzed ALKALINE 104 U/L 40-150 PHOSPHATASE (BEAKER) (test code = 346) BILIRUBIN TOTAL 1.4 mg/dL 0.2-1.2 H Specimen mar kedly (BEAKER) (test hemolyzed code = 377) SODIUM (BEAKER) 133 meq/L 136-145 L (test code = 381) POTASSIUM (BEAKER) 5.0 meq/L 3.5-5.1 Specimen markedly (test code = 379) hemolyzed CHLORIDE (BEAKER) 99 meq/L 98-107 (test code = 382) CO2 (BEAKER) (test 24 meq/L 22-29 code = 355) BLOOD UREA 32 mg/dL 7-21 H NITROGEN (BEAKER) (test code = 354) CREATININE 1.61 mg/dL 0.57-1.25 H Specimen marked ly (BEAKER) (test hemolyzed code = 358) GLUCOSE RANDOM 82 mg/dL 70-105 (BEAKER) (test code = 652) CALCIUM (BEAKER) 7.9 mg/dL 8.4-10.2 L (test code = 697) AST (SGOT) 73 U/L 5-34 H Specimen marked ly (BEAKER) (test hemolyzed code = 353) ALT (SGPT) 31 U/L 6-55 Specimen marked ly (BEAKER) (test hemolyzed code = 347) EGFR (BEAKER) 37 Interpretatio n of eGFR (test code = [...] not appl icable for dialysis patien ts Neurology Stroke Physician ID - ADMINHIGH SENSITIVITY TROPONIN [id number] 14:02:29 Test Item Value Reference Range Interpretation Comments HIGH SENSITIVITY < pg/ml See_Comment [Automated message] TROPONIN I (test code = The system which [id number]) generated this result transmitted ref erence range: <=17. Th e reference range was not used to interpr et this result as normal/abnormal . Neurology Stroke Physician ID - ADMINThe COATING LINE WORKER STAT High Sensitivity Troponin-I results should be used in conjunction with other diagnostic information such as ECG, clinical observations and information, and patientsymptoms to aid in the diagnosis of [place]. [id number] 13:56:30 Test Item Value Reference Range Interpretation Comments MAGNESIUM (BEAKER) 2.0 mg/dL 1.6-2.6 Specimen markedly (test code = 627) hemolyzed Neurology Stroke Physician ID - ADMINCREATINE KINASE (CK)2023-04-16 13:56:30 Test Item Value Reference Range Interpretation Comments CREATINE KINASE TOTAL (BEAKER) (test 162 U/L 29-200 code = 380) Neurology Stroke Physician ID - ADMINPT/[id number] 13:54:09 Test Item Value Reference Range Interpretation Comments PROTIME (BEAKER) (test 18.9 seconds 11.9-14.2 H code = 759) INR (BEAKER) (test 1.70 See_Comment [Automat ed code = 370) message] The sy stem which generated this result transmitted reference range : <=5.90. The reference range was not used to interpret this result as normal/abnormal . PARTIAL THROMBOPLASTIN 29.9 seconds 22.5-36.0 TIME (BEAKER) (test code = 760) RECOMMENDED COUMADIN/WARFARIN INR THERAPY RANGESSTANDARD DOSE: 2.0 - 3.0 Includes: PROPHYLAXIS for venous thrombosis, systemic embolization; TREATMENT for venous thrombosis and/or pulmonary embolus.HIGH RISK: Target INR is 2.5-3.5 for patients with mechanical heart valves.BLOOD GAS, [id number] 13:52:31 Test Item Value Reference Range Interpretation Comments PH VENOUS (BEAKER) (test code = 7.44 7.32-7.42 H 701) PCO2 VENOUS (BEAKER) (test code = 39 mm Hg 41-51 L 755) PO2 VENOUS (BEAKER) (test code = 98 mm Hg 25-40 H 702) O2 SATURATION VENOUS (BEAKER) 97.6 % 40.0-70.0 H (test code = 703) HCO3 VENOUS (BEAKER) (test code = 26 mmol/L 21-29 705) BASE EXCESS VENOUS (BEAKER) (test 1.4 mmol/L -2.0-3.0 code = 704) PATIENT TEMPERATURE (BEAKER) (test 37.0 code = 1818) FIO2 (BEAKER) (test code = 1819) 21.0 LACTIC ACID, [id number] 13:49:46 Test Item Value Reference Range Interpretation Comments LACTATE BLOOD VENOUS 2.67 mmol/L 0.50-2.00 H Specime n markedly (2) (BEAKER) (test hemolyzed code = 2872) Neurology Stroke Physician ID - ADMINCBC W/PLT COUNT & AUTO [id number] 13:41:46 Test Item Value Reference Range Interpretation Comments WHITE BLOOD CELL COUNT (BEAKER) 7.0 K/ L 3.5-10.5 (test code = 775) RED BLOOD CELL COUNT (BEAKER) 3.47 M/ L 3.93-5.22 L (test code = 761) HEMOGLOBIN (BEAKER) (test code = 12.2 GM/DL 11.2-15.7 410) HEMATOCRIT (BEAKER) (test code = 36.3 % 34.1-44.9 411) MEAN CORPUSCULAR VOLUME (BEAKER) 105 fL 79-95 H (test code = 753) MEAN CORPUSCULAR HEMOGLOBIN 35.2 pg 25.6-32.2 H (BEAKER) (test code = 751) MEAN CORPUSCULAR HEMOGLOBIN CONC 33.6 GM/DL 32.2-35.5 (BEAKER) (test code = 752) RED CELL DISTRIBUTION WIDTH 14.7 % 11.7-14.4 H (BEAKER) (test code = 412) PLATELET COUNT (BEAKER) (test code 86 K/CU MM 150-450 L = 756) MEAN PLATELET VOLUME (BEAKER) 10.4 fL 9.4-12.3 (test code = 754) NUCLEATED RED BLOOD CELLS (BEAKER) 0 /100 WBC 0-0 (test code = 413) NEUTROPHILS RELATIVE PERCENT 68 % (BEAKER) (test code = 429) LYMPHOCYTES RELATIVE PERCENT 13 % (BEAKER) (test code = 430) MONOCYTES RELATIVE PERCENT 14 % (BEAKER) (test code = 431) EOSINOPHILS RELATIVE PERCENT 4 % (BEAKER) (test code = 432) BASOPHILS RELATIVE PERCENT 0 % (BEAKER) (test code = 437) NEUTROPHILS ABSOLUTE COUNT 4.76 K/ L 1.56-6.13 (BEAKER) (test code = 670) LYMPHOCYTES ABSOLUTE COUNT 0.92 K/ L 1.18-3.74 L (BEAKER) (test code = 414) MONOCYTES ABSOLUTE COUNT (BEAKER) 0.99 K/ L 0.24-0.36 H (test code = 415) EOSINOPHILS ABSOLUTE COUNT 0.29 K/ L 0.04-0.36 (BEAKER) (test code = 416) BASOPHILS ABSOLUTE COUNT (BEAKER) 0.03 K/ L 0.01-0.08 (test code = 417) IMMATURE GRANULOCYTES-RELATIVE 0.40 % 0.00-1.00 PERCENT (BEAKER) (test code = 2801) XR CHEST 2 [id number] 13:11:49 [facility] : 1965 Sex: FHISTORY: Left pleural effusion, shortness of breathCOMPARISON: 04/15/2023FINDINGS: Small left pleural effusion. No pneumothorax. No right pleuraleffusion. Lungs clear.The heart shadow is normal in size. The thoracic aorta is mildlytortuous.Electronically Signed By: Dipak White04/16/2023 13:13 CDTWorkstation Name: [id number] FLUID CELL COUNT WITH [id number] 14:20:03 Test Item Value Reference Range Interpretation Comments APPEARANCE FLUID Cloudy Clear A (BEAKER) (test code = 510) COLOR FLUID (BEAKER) Lupe Colorless, Straw A (test code = 511) RBC FLUID (BEAKER) 91414 /cu mm See_Comment H [Automat ed message] (test code = 513) The system which generated this result transmit joanna reference range : <=1. The refere nce range was not u sed to interpret th is result as normal/abnormal . TOTAL NUCLEATED CELL 566 /cu mm See_Comment H [Autom ated message] COUNT (BEAKER) (test The sys tem which code = 1442) generated this result transmit joanna reference range : <=5. The refere nce range was not u sed to interpret th is result as normal/abnormal . LINING CELLS/OTHERS 10 DIFF'D (BEAKER) (test code = 1589) ADJUSTED WBC FLUID 515 /cu mm See_Comment H [Automat ed message] (BEAKER) (test code The syst em which = 1691) generated this result transmit joanna reference range : <=5. The refere nce range was not u sed to interpret th is result as normal/abnormal . LINING CELLS/OTHERS, 51 /cu mm See_Comment H [Autom ated message] CALCULATED (BEAKER) The syst em which (test code = 1590) generated this result transmit joanna reference range : <=1. The refere nce range was not u sed to interpret th is result as normal/abnormal . NEUTROPHILS FLUID 2 % (BEAKER) (test code = 1656) LYMPHS FLUID 40 % (BEAKER) (test code = 488) MONO/MACROPHAGE 58 % FLUID (BEAKER) (test code = 489) EOSINOPHILS FLUID 0 % (BEAKER) (test code = 491) BASO FLUID (BEAKER) 0 % (test code = 492) CONTAINER BODY FLUID EDTA Tube (BEAKER) (test code = 2873) XR CHEST 1 VIEW PORTABLE / [id number] 12:32:14 [facility] : 1965 Sex: FChest one view.Clinical history: s/p thoraComparison: April 11iscussion: A frontal chest is provided.Cardiomediastinal contours are unchanged. Mild pleural parenchymal opacity at the left lower thoraxis unchanged.There is no pneumothorax. Right lung is clear.No acute bony abnormality.Electronically S igned By: Manish [facility]04/15/2023 12:34 CDTWorkstation Name: [id number] FLUORO NON- SPECIFIC UP TO 1 [id number] 15:46:14 [facility] : 1965 Sex: FThisis a non- reportable study with no Radiologist dictation. Please refer to your PACS to review images,or Doc Flowsheets for documentation on studies without images.US [id number] 17:36:47 [facility] : 1965 Sex: FUltrasound guided left thoracentesis.Clinical History: Left pleural effusion.Modality: Ultrasound.Sedation: None. Operations Clerk: Ellis Lylesistant: None. Estimated Blood Loss: 1ccSpecimen: [...] uncomplicated ultrasound guided left thoracentesis.Electronically Signed By: Dipak Szymanski04/11/2023 17:38 CDTWorkstation Name: [id number] FLUID CELL COUNT WITH [id number] 14:13:51 Test Item Value Reference Range Interpretation Comments APPEARANCE FLUID (BEAKER) (test Turbid Clear A code = 510) COLOR FLUID (BEAKER) (test code Red Colorless, Straw A = 511) RBC FLUID (BEAKER) (test code = 20244 /cu mm <=1 H 513) TOTAL NUCLEATED CELL COUNT 479 /cu mm <=5 H (BEAKER) (test code = 1442) LINING CELLS/OTHERS DIFF'D 0 (BEAKER) (test code = 1589) ADJUSTED WBC FLUID (BEAKER) 479 /cu mm <=5 H (test code = 1691) LINING CELLS/OTHERS, CALCULATED 0 /cu mm <=1 (BEAKER) (test code = 1590) NEUTROPHILS FLUID (BEAKER) 8 % (test code = 1656) LYMPHS FLUID (BEAKER) (test 64 % code = 488) MONO/MACROPHAGE FLUID (BEAKER) 28 % (test code = 489) EOSINOPHILS FLUID (BEAKER) 0 % (test code = 491) BASO FLUID (BEAKER) (test code 0 % = 492) CONTAINER BODY FLUID (BEAKER) Sterile Vial (test code = 2873) XR CHEST 1 VIEW PORTABLE / [id number] 13:39:13 [facility] : 1965 Sex: FCLINICAL HISTORY: s/p thoracentesisTECHNIQUE: 1 view of the chestCOMPARISON: 04/08/2023IMPRESSION:No pneumothorax. Trace left pleural effusion again seen. No infiltrates.No cardiomegaly.Electronically SignedBy: Antwansyeda Flor04/11/2023 13:41 CDTWorkstation Name: [id number] DEHYDROGENASE (LDH), BODY FLUID 2023-04-09 16:42:15 Test [...] recovery and/or detection times of some organisms.BLOOD [id number] 13:00:23 Test Item Value Reference Range Interpretation Comments CULTURE (BEAKER) (test No growth in 5 days code = 1095) The specimen volume collected for this blood culture was below the optimum (10 mL per bottle or 20 mL total). Use of lower volumes may adversely affect recovery and/or detection times of some organisms.BODY FLUID CELL COUNT WITH [id number] 19:24:03 Test Item Value Reference Range Interpretation Comments APPEARANCE FLUID (BEAKER) Slightly Bloody Clear A (test code = 510) COLOR FLUID (BEAKER) (test Straw Colorless, Straw code = 511) RBC FLUID (BEAKER) (test 71689 /cu mm <=1 H code = 513) [...] Sterile Vial (BEAKER) (test code = 2873) US [id number] 16:23:34 [facility] : 1965 Sex: FUltrasound guided left thoracentesis.Clinical History: Left pleural effusion.Modality: Ultrasound.Sedation: None. Operations Clerk: Ellis Lylesistant: None. Estimated Blood Loss: 1ccSpecimen: [...] ultrasound guided left thora centesis.Electronically Signed By: Deandre Retana04/08/2023 16:25 CDTWorkstation Name: [id number] CHEST 1 VIEW PORTABLE / [id number] 15:30:23 [facility] : 1965 Sex: FTECHNIQUE: Frontal view of the chest.INDICATION: s/p thoracentesis.COMPARISON: 04/04/2023.FINDINGS:LINES/TUBES: None.HEART AND MEDIASTINUM: Cardiomediastinal contour is stable. LUNGS: Mild left basilar atelectatic change. No consolidation orpulmonary edema.PLEURA: Small left pleural effusion. No pneumothorax.SOFT TISSUES AND BONES: Unremarkable.IMPRESSION:Small left pleural effusion with left basilar atelectatic change. Nopneumothorax.Electronically Signed By: Adilia Polanco04/08/2023 15:32 CDTWorkstation Name: [id number] CULTURE + SMEAR 2023-04-06 08:24:23 Test Item Value Reference Range Interpretation Comments CULTURE (BEAKER) (test No fungus isolated in code = 1095) 28 days FUNGUS SMEAR (BEAKER) No fungi seen (test code = 1406) CT ABDOMEN/PELVIS WITHOUT IV [id number] 16:41:18 [facility] : 1965 Sex: FABDOMINAL [...] account forpatient's abdominal pain.Electronically Signed By: Erika Marroquing004/04/2023 16:43 CDTWorkstation Name: [id number] 14:20:01 [facility] : 1965 Sex: FUltrasound guided left thoracentesis.Clinical History: Left pleural effusion.Modality: Ultrasound.Sedation: None. Operations Clerk: Danuta Corralistant: None. Estimated Blood Loss: 1ccSpecimen: 2350 cc [...] Signed By: Mikael Darnell04/04/2023 14:22 CDTWorkstation Name: [id number] METABOLIC [id number] 12:43:52 Test Item Value Reference Range Interpretation [...] not appl icable for dialysis patien ts Neurology Stroke Physician ID - JSSpecimen slightly ictericLACTIC ACID, [id number] 12:36:49 Test Item Value Reference Range Interpretation Comments LACTATE BLOOD VENOUS (2) (BEAKER) 1.61 mmol/L 0.50-2.00 (test code = 2872) Neurology Stroke Physician ID - JSCBC W/PLT COUNT & AUTO [id number] 11:56:33 Test Item Value Reference Range Interpretation [...] (BEAKER) (test code = 2801) LACTIC ACID, [id number] 11:56:21 Test Item Value Reference Range Interpretation Comments LACTATE BLOOD VENOUS 2.81 mmol/L 0.50-2.00 H Specime n markedly (2) (BEAKER) (test hemolyzed code = 2872) Neurology Stroke Physician ID - ADMINXR CHEST 2 [id number] 11:54:24 [facility] : 1965 Sex: FEXAMINATION: XR [...] Signed By: Deandre Retana04/04/2023 11:56 CDTWorkstation Name: [id number] 11:53:15 Test Item Value Reference Range Interpretation Comments PARTIAL THROMBOPLASTIN TIME 29.2 seconds 22.5-36.0 (BEAKER) (test code = 760) PROTHROMBIN TIME/[id number] 11:52:36 Test Item Value Reference Range Interpretation [...] Comments COLOR (BEAKER) (test code = 470) [place] CLARITY (BEAKER) (test code = 469) Clear [...] /LPF 514) SOURCE(BEAKER) (test code = 2795) Neurology Stroke Physician ID - [auto]Neurology Stroke Physician ID - techBODY FLUID CELL COUNT WITH DIFFERENTIAL 2023-04-04 11:13:45 Test Item Value Reference Range Interpretation Comments APPEARANCE FLUID (BEAKER) (test Bloody Clear A code = 510) COLOR FLUID (BEAKER) (test code [place] Colorless, Straw A = 511) RBC FLUID (BEAKER) (test code = 16678 /cu mm <=1 H 513) TOTAL NUCLEATED [...] 2873) XR CHEST 1 VIEW PORTABLE / [id number] 09:58:29 [facility] : 1965 Sex: FXR CHEST 1 VIEW PORTABLE / BEDSIDECLINICAL HISTORY: s/p left thora TECHNIQUE: Single view of the chest.COMPARISON: March 28, 2023IMPRESSION:Minimal left lung base opacities likely atelectasis or trace residualpleural effusion status post left thoracentesis. No pneumothorax. Thecardiomediastinal silhouette is magnified by technique. The osseousstructures appear stable.Electronically Signed By: Wilber Hylton04/04/2023 10:00 CDTWorkstation Name: [id number] CULTURE + [id number] 08:29:42 Test Item Value Reference Range Interpretation Comments CULTURE (BEAKER) (test No fungus isolated in code = 1095) 28 days FUNGUS SMEAR (BEAKER) No fungal elements seen (test code = 1406) US [id number] 09:24:25 [facility] : 1965 Sex: FUltrasound guided left-sided thoracentesis.Clinical History: Left pleural effusion.Modality: Ultrasound.Sedation: None. Operations Clerk: Ellis Munozistant: None. Estimated Blood Loss: 1ccSpecimen: 2400 cc [...] By: Lj Stevenson MD04/03/2023 09:26 CDTWorkstation Name: [id number] FLUID CELL COUNT WITH [id number] 17:23:22 Test Item Value Reference Range Interpretation Comments APPEARANCE FLUID (BEAKER) (test Cloudy Clear A code = 510) COLOR FLUID (BEAKER) (test code Brown Colorless, Straw A = 511) RBC FLUID (BEAKER) (test code = 49040 /cu mm <=1 H 513) TOTAL NUCLEATED [...] 2873) XR CHEST 1 VIEW PORTABLE / [id number] 15:03:35 [facility] : 1965 Sex: FTECHNIQUE: Frontal view of the chest.INDICATION: s/p left thoracentesis.COMPARISON: 03/28/2023.FINDINGS:LINES/TUBES: None.HEART AND MEDIASTINUM: Cardiomediastinal contour is within normallimits. LUNGS: The lungs are well inflated and clear. No consolidation orpulmonary edema.PLEURA: No pneumothorax. No significant pleural effusion.SOFT TISSUES AND BONES: Unremarkable.IMPRESSION:No acute cardiopulmonary process. No pneumothorax status post leftthoracentesis.Electronically Signed By: Adilia Polanco04/01/2023 15:05 CDTWorkstation Name: [id number] BRAIN WITHOUT IV [id number] 20:16:32 [facility] : 1965 Sex: FCT Head [...] Signed By: Antwan Flor03/30/2023 20:18 CDTWorkstation Name: [id number] METABOLIC [id number] 18:35:39 Test Item Value Reference Range Interpretation [...] not appl icable for dialysis patien ts Neurology Stroke Physician ID - BSSpecimen slightly ictericHEPATIC FUNCTION [id number] 18:35:39 Test Item Value Reference Range Interpretation [...] Specimen slightly (test code = 347) hemolyzed Neurology Stroke Physician ID - BSSpecimen slightly ictericPT/[id number] 18:34:42 Test Item Value Reference Range Interpretation [...] mechanical heart valves.CBC W/PLT COUNT & AUTO [id number] 18:18:57 Test Item Value Reference Range Interpretation [...] PERCENT (BEAKER) (test code = 2801) US [id number] 15:05:38 [facility] 1965 Sex: FUltrasound guided left thoracentesis.Clinical History: Left pleural effusion.Modality: Ultrasound.Sedation: None. Operations Clerk: JEREMÍAS LylesCAssistant: None. Estimated Blood Loss: 1ccSpecimen: 1400 cc [...] Signed By: Lee Diaz03/30/2023 15:07 CDTWorkstation Name: [id number] 13:01:27 Test Item Value Reference Range Interpretation Comments POC-GLUCOSE METER 91 mg/dL 70-110 : TESTED A T [facility] 6720 (DANNY) (test code = VERONICA Reno [facility], 1538) [address]: Neurology Stroke Physician/Techni shavon ID = [id number] for Tamika Briggs [id number] 08:35:26 [facility] EVER : 1965 Sex: FUltrasound guided left thoracentesis.Clinical History: Left pleural effusion.Modality: Ultrasound.Sedation: None. Operations Clerk: Ellis Lylesistant: None. Estimated Blood Loss: 1ccSpecimen: 1700 cc [...] By: Lj Stevenson MD03/29/2023 08:37 CDTWorkstation Name: [id number] FLUID CELL COUNT WITH [id number] 12:50:33 Test Item Value Reference Range Interpretation Comments APPEARANCE FLUID (BEAKER) (test Bloody Clear A code = 510) COLOR FLUID (BEAKER) (test code [place] Colorless, Straw A = 511) RBC FLUID (BEAKER) (test code = 44096 /cu mm <=1 H 513) TOTAL NUCLEATED [...] 2873) XR CHEST 1 VIEW PORTABLE / [id number] 10:49:57 [facility] : 1965 Sex: FINDICATION: s/p thoracentesisCOMPARISON: 03/25/2023TECHNIQUE: Single frontal view of the chest.FINDINGS: Lungs and pleura: No pneumothorax status post thoracentesis. Noeffusion.Heart and mediastinum: Normal heart size. Unremarkable mediastinalcontours.Osseous structures: No acute abnormality.Other: None.IMPR ESSION:No pneumothorax status post thoracentesis. No effusion.Electronically Signed By: Estrella Walters03/28/2023 10:51 CDTWorkstation Name: [id number] FLUID CELL COUNT WITH [id number] 18:08:53 Test Item Value Reference Range Interpretation Comments APPEARANCE FLUID (BEAKER) Moderately Bloody Clear A (test code = 510) COLOR FLUID (BEAKER) (test Yellow Colorless, Straw A code = 511) RBC FLUID (BEAKER) (test 66393 /cu mm <=1 H code = 513) [...] 2873) XR CHEST 1 VIEW PORTABLE / [id number] 15:24:56 [facility] : 1965 Sex: FXR CHEST 1 VIEW PORTABLE / BEDSIDETECHNIQUE: Frontal view(s) of the chest.INDICATION: s/p thoracentesiss/p thoracentesisCOMPARISON: 03/21/2023FINDINGS/IMPRESSION:Lines/Tubes: NoneLungs/pleura: Low lung volumes. Mild interstitial airspace opacities,likely mild edema. No pleural effusion. No pneumothorax.Heart and Mediastinum: Unchanged.Soft Tissues and Bones: Unchanged.Electronically Signed By: Carolyn Block03/25/2023 15:26 CDTWorkstation Name: [id number] 19:00:19 Test Item Value Reference Range Interpretation Comments CULTURE (BEAKER) (test No growth in 5 days code = 1095) The specimen volume collected for this blood culture was below the optimum (10 mL per bottle or 20 mL total). Use of lower volumes may adversely affect recovery and/or detection times of some organisms.BLOOD [id number] 18:00:08 Test Item Value Reference Range Interpretation [...] fungi seen (test code = 1406) US [id number] 07:48:55 [facility] : 1965 Sex: FUltrasound guided left thoracentesis.Clinical History: Left pleural effusion.Modality: Ultrasound.Sedation: None. Operations Clerk: Ellis Lylesistant: None. Estimated Blood Loss: 1ccSpecimen: 1600 cc of lupe fluid. Technique: Informed consent was obtained. The risks of pain, bleeding,infection, lung collapse/pneumothorax, injury to adjacent structures,and adverse medication reactions were discussed with the patient. Thepatient's left hemithorax was scanned from the back, with the patient rowena sitting position. After the largest fluid pocket area was marked, theskin was prepped and draped inthe usual sterile manner. The area wasanesthetized with 2% lidocaine, a 5 F one-step catheter was advancedinto the pleural space under ultrasound guidance. After completion ofdrainage, the catheter wasremoved. There was no evidence of immediatecomplication. Post procedure chest x-ray demonstrated no pneumothorax. IMPRESSION:Impression:Successful and uncomplicated ultrasound guided left thoracentesis.Electronically Signed By: Lj Stevenson MD03/22/2023 07:50 CDTWorkstation Name: [id number] CHEST 1 VIEW PORTABLE / [id number] 06:19:15[facility] : 1965 Sex: FXR CHEST 1 VIEW PORTABLE / BEDSIDEINDICATION: s/p thoracentesisCOMPARISON: 03/14/2023FINDINGS: Portable frontal view of the chest. IMPRESSION:Support Lines: None Lungs and pleura: No focal lung consolidation or large pleural effusion.No pneumothorax.Heart and mediastinum: Stable contours. Additional findings: Stable osseous structures.Electronically Signed By: Wilber Hylton03/22/2023 06:21 CDTWorkstation Name: [id number] LAB [id number] 09:58:21 Test Item Value Reference Range Interpretation Comments SCAN RESULT (test code = See scanned report. [id number]) HEPATIC FUNCTION [id number] 05:11:09 Test Item Value Reference Range Interpretation [...] (test code = 29 U/L 6-55 347) Neurology Stroke Physician ID - EOOSpecimen slightly ictericBASIC METABOLIC [id number] 05:11:08 Test Item Value Reference Range Interpretation [...] not appl icable for dialysis patien ts Neurology Stroke Physician ID - EOOSpecimen slightly ictericPROTHROMBIN TIME/[id number] 04:50:46 Test Item Value Reference Range Interpretation Comments PROTIME (BEAKER) (test code = 18.5 seconds 11.9-14.2 H 759) INR (BEAKER) (test code = 370) 1.58 <=5.90 RECOMMENDED COUMADIN/WARFARIN INR THERAPY RANGESSTANDARD DOSE: 2.0 - 3.0 Includes: PROPHYLAXIS for venous thrombosis, systemic embolization; TREATMENT for venous thrombosis and/or pulmonary embolus.HIGH RISK: Target INR is 2.5-3.5 for patients with mechanical heart valves.BASIC METABOLIC [id number] 10:32:34 Test Item Value Reference Range Interpretation [...] not appl icable for dialysis patien ts Neurology Stroke Physician ID - MARCOSpecimen slightly ictericBASIC METABOLIC [id number] 06:02:43 Test Item Value Reference Range Interpretation [...] not appl icable for dialysis patien ts Neurology Stroke Physician ID - Selina slightly ictericHEPATIC FUNCTION [id number] 06:02:43 Test Item Value Reference Range Interpretation [...] (test code = 25 U/L 6-55 347) Neurology Stroke Physician ID - Selina slightly ictericPROTHROMBIN TIME/[id number] 05:41:15 Test Item Value Reference Range Interpretation Comments PROTIME (BEAKER) (test code = 19.4 seconds 11.9-14.2 H 759) INR (BEAKER) (test code = 370) 1.75 <=5.90 RECOMMENDED COUMADIN/WARFARIN INR THERAPY RANGESSTANDARD DOSE: 2.0 - 3.0 Includes: PROPHYLAXIS for venous thrombosis, systemic embolization; TREATMENT for venous thrombosis and/or pulmonary embolus.HIGH RISK: Target INR is 2.5-3.5 for patients with mechanical heart valves.URINALYSIS W/ [id number] 12:02:58 Test Item Value Reference Range Interpretation [...] (test code Urine, Clean Catch = 2795) Neurology Stroke Physician ID - [auto]Neurology Stroke Physician ID - techMRA HEAD WITHOUT IV [id number] 09:07:21[facility] : 1965 Sex: FMR [...] system: Normal flow-related enhancement within the bilateral M7hkxjrljl and the basilar artery Posterior cerebral arteries: Normal flow-related enhancement within thebilateral NEGATIVE STRIPPER P1-P2 segments Additional findings: None. IMPRESSION:No acute ischemia or parenchymal hemorrhage.No flow limiting stenosis in the major branch vessels of thecranialcirculation. Electronically Signed By: Estrella Walters03/19/2023 09:09 CDTWorkstation Name: [id number] BRAIN WITHOUT IV [id number] 09:07:21 [facility] EVER : 1965 Sex: FMR BRAIN WITHOUT IV [...] system: Normal flow-related enhancement within the bilateral F0ehirsnnq and the basilar artery Posterior cerebral arteries: Normal flow-related enhancement within thebilateral NEGATIVE STRIPPER P1-P2 segments Additional findings: None. IMPRESSION:No acute ischemia or parenchymal hemorrhage.No flow limiting stenosis in the major branch vessels of thecranialcirculation. Electronically Signed By: Estrella Walters03/19/2023 09:09 CDTWorkstation Name: [id number] 08:38:22[facility] : 1965 Sex: FRight [place] Ultrasound [...] By: Aravind Neal MD03/19/2023 08:40 CDTWorkstation Name: [id number] ABDOMEN [id number] 08:38:22 [facility] : 1965 Sex: FRight [place] Ultrasound [...] By: Aravind Neal MD03/19/2023 08:40 CDTWorkstation Name: [id number] W/PLT COUNT & AUTO DIFFERENTIAL 2023-03-19 07:44:16 [...] (BEAKER) (test code = 2801) COMPREHENSIVE METABOLIC [id number] 07:42:52 Test Item Value Reference Range Interpretation [...] not appl icable for dialysis patien ts Neurology Stroke Physician ID - [id number] 07:40:36 Test Item Value Reference Range Interpretation Comments PHOSPHORUS (BEAKER) (test code = 4.3 mg/dL 2.3-4.7 604) Neurology Stroke Physician ID - [id number] 07:40:35 Test Item Value Reference Range Interpretation Comments MAGNESIUM (BEAKER) (test code = 3.0 mg/dL 1.6-2.6 H 627) Neurology Stroke Physician ID - MARCOCALCIUM, [id number] 07:16:59 Test Item Value Reference Range Interpretation Comments CALCIUM IONIZED (BEAKER) (test 1.08 mmol/L 1.12-1.27 L code = 698) PH, BLOOD (BEAKER) (test code = 7.45 1810) VITAMIN [id number] 21:59:30 Test Item Value Reference Range Interpretation Comments VITAMIN B12 (BEAKER) (test code = 999 pg/mL 213-816 H 774) Neurology Stroke Physician ID - BSURINALYSIS W/ REFLEX URINE [id number] 18:23:30 Test Item Value Reference Range Interpretation [...] = 516) SOURCE(BEAKER) (test code = 2795) Neurology Stroke Physician ID - [auto]Neurology Stroke Physician ID - techBASIC METABOLIC [id number] 18:21:01 Test Item Value Reference Range Interpretation [...] (test code = 697) EGFR (BEAKER) 45 Interpretati on of eGFR (test code = mL/min/1.73 values Stage De scription 1092) sq m Result G1 [place] l or high >=90 G2 Mildly decreased 60-89 G3a Mildl y to moderately 45-5 9 G3b Moderately to s everely 30-44 G4 Severl y decreased 15-29 G5 Kidney failure <15Reported eGF R is based on the CKD-EPI 1 equation that d oes not use a race coefficientEsti mated GFR is not as accur ate as Creatinine Carol rockwell in predicting glom erular filtration rate . Estimated GFR is not appl icable for dialysis patien ts Neurology Stroke Physician ID - BSSpecimen slightly ictericHEPATIC FUNCTION [id number] 18:21:01 Test Item Value Reference Range Interpretation [...] (test code = 36 U/L 6-55 347) Neurology Stroke Physician ID - BSSpecimen slightly ictericPROTEIN, RANDOM [id number] 18:19:35 Test Item Value Reference Range Interpretation Comments PROTEIN, URINE (BEAKER) (test code = 13 mg/dL 0-14 1569) Neurology Stroke Physician ID - ADMINSODIUM, RANDOM [id number] 18:19:35 Test Item Value Reference Range Interpretation Comments SODIUM URINE (BEAKER) (test code = 26 meq/L 243) Reference Range: No NormalsOperator ID - ADMINCREATININE, RANDOM [id number] 18:19:34 Test Item Value Reference Range Interpretation Comments CREATININE URINE (BEAKER) (test 117.0 mg/dL code = 375) Reference Range: No NormalsOperator ID - ADMINCALCIUM, [id number] 18:03:23 Test Item Value Reference Range Interpretation Comments CALCIUM IONIZED (BEAKER) (test 1.07 mmol/L 1.12-1.27 L code = 698) PH, BLOOD (BEAKER) (test code = 7.45 1810) [id number] 17:57:36 Test Item Value Reference Range Interpretation Comments MAGNESIUM (BEAKER) (test code = 2.1 mg/dL 1.6-2.6 627) Neurology Stroke Physician ID - ADMINMISCELLANEOUS LAB [id number] 14:06:38 Test Item Value Reference Range Interpretation Comments SCAN RESULT (test code = See scanned report. [id number]) BODY FLUID CELL COUNT WITH [id number] 11:50:04 Test Item Value Reference Range Interpretation Comments APPEARANCE FLUID Cloudy Clear A (BEAKER) (test code = 510) COLOR FLUID (BEAKER) [place] Colorless, Straw A (test code = 511) RBC FLUID (BEAKER) 51451 /cu mm <=1 H (test code = [...] for (BEAKER) (test code = malignancy 2619) [id number] Shaneka Saab M.D. (BEAKER) (test code = (electronic 2620) signature) CONTAINER BODY FLUID Sterile Cup (BEAKER) (test code = 2873) T SPOT [id number] 15:08:38 Test Item Value Reference Range Interpretation [...] = 1687) SCAN RESULT (test code = 2451769) XR CHEST 1 VIEW PORTABLE / [id number] 14:45:36 [facility] : 1965 Sex: FChest AP portable semierectComparison exam: 03/11/2023History provided: Status post thoracentesisPleural fluid has been evacuated on the left. No pneumothorax evident.Heart size normal and lungs are clear.Electronically Signed By: Mp Harris03/14/2023 14:47 CDTWorkstation Name: [id number] [id number] 14:36:40[facility] : 1965 Sex: FULTRASOUND GUIDED [...] IMPRESSION:Uneventful ultrasound guided thoracentesis.Electronically Signed By: Mp Baltazar 14:56 CDTWorkstation Name: [id number] FLUID CELL COUNT WITH [id number] 18:15:17 Test Item Value Reference Range Interpretation Comments APPEARANCE FLUID Purulent Clear A (BEAKER) (test code = 510) COLOR FLUID (BEAKER) [place] Colorless, Straw A (test code = 511) RBC FLUID (BEAKER) 21458 /cu mm <=1 H (test code = [...] code = count. Negative for 2619) malignancy [id number] Shaneka Saab M.D. (BEAKER) (test code = (electronic 2620) signature) CONTAINER BODY FLUID EDTA Tube (BEAKER) (test code = 2873) XR CHEST 1 VIEW PORTABLE / [id number] 12:19:07 [facility] EVER : 1965 Sex: FXR CHEST 1 VIEW PORTABLE / BEDSIDETECHNIQUE: Frontal view(s) of the chest.INDICATION: Post thoracentesisPost thoracentesisCOMPARISON: 03/09/2023FINDINGS/IMPRESSION:Lines/Tubes: NoneLungs/pleura: Low lung volumes. Bibasilar atelectasis. No pleuraleffusion. No pneumothorax, status post left pleural thoracentesis.Heart and Mediastinum: Unremarkable.Soft Tissues and Bones: Unremarkable.Electronically Signed By: Carolyn Block03/11/2023 12:21 CDTWorkstation Name: [id number] [id number] 12:16:12 [facility] : 1965 Sex: FPROCEDURE: Ultrasound-guided thoracentesisProcedural PersonnelAttending physician(s): Brayden Coe physician(s): NoneResident physician(s): NoneAdvanced practice provider(s): NonePre-procedure diagnosis: Left pleural effusionPost- procedure diagnosis: SameIndication: Pleural effusion with pain or [...] entire procedure. I reviewed thestored images and agreewith the report as written.Electronically Signed By: Carolyn Block03/11/2023 12:18 CDTWorkstation Name: [id number] ANTIBODY, [id number] 12:02:16 Test Item Value Reference Range Interpretation Comments RUBELLA IGG QUANTITATION (BEAKER) 39.0 IU/mL <8.0 H (test code = 572) Rubella IgG Result Interpretation: </= 7.0 IU/mL Negative - Presumed non- immune 8.0 - 9.9 IU/mL Equivocal >= 10.0 IU/mL Positive - Presumed immune CYTOMEGALOVIRUS ANTIBODY, [id number] 12:02:15 Test Item Value Reference Range Interpretation Comments CYTOMEGALOVIRUS, IGG (BEAKER) Positive Negative, Equivocal A (test code = 3429) CMV IgG Result Interpretation: </= 0.8 Al Negative 0.9-1.0 Al Equivocal >/=1.1 Al PositiveEBV ANTIBODY, [id number] 12:02:15 Test Item Value Reference Range Interpretation Comments IMANI DENIS VIRAL CAPSID Positive Negative, Equivocal A ANTIGEN IGG (BEAKER) (test code = 3415) Imani Denis Viral Capsid Antigen IgG Result Interpretation: </= 0.8 Al Negative 0.9-1.0 Al Equivocal >/= 1.1 Al PositiveEBV ANTIBODY, [id number] 12:02:15 Test Item Value Reference Range Interpretation Comments IMANI DENIS VIRAL CAPSID Negative Negative, Equivocal ANTIGEN IGM (BEAKER) (test code = 3418) Imani Denis Viral Capsid Antigen IgM Result Interpretation: </= 0.8 Al Negative 0.9-1.0 Al Equivocal >/= 1.1 Al [id number] 11:58:38 Medical Cytology Report Case: [id number] Authorizing Provider: Joseluis Stoner MD Collected: 03/08/2023 12:46 PM Ordering Location: [facility] Received: 03/08/2023 01:09 PM Pathologist: Shaneka Saab MD Specimen: Pleural, Left LEFT PLEURAL FLUID (CYTOSPINS AND CELL BLOCK): - NEGATIVE FOR MALIGNANCY Signing Pathologist Direct Phone Line: [phone] signed by Shaneka Saab MD on 03/11/2023 at 11:58 AMThere are rare clusters of atypical cells that stain for positive Calretinin and negative for MOC-31 and Jason-EP4, confirming their mesothelial origin. Negative for kovwcmpwxz77587, 09092; 52745; 13782 x 89 y.o. F presenting with left pleural effusion here for left thoracentesis. PMH: asthma, cirrhosis, HTN, abscess (MRSA)LEFT PLEURAL FLUIDA. Pleural, LeftReceived 1100 mls bloody opaque chylous fluid; prepared 4 cytospins and cell block(A2)(collodion bag) -the cell block was fixed in formalin at 10:35 on 03/09/2023 Performed.SatisfactoryThe interpretationof this case included the use of immunohistochemistry or special stains.Calretinin; MOC- 31 and Jason-IS8Yurugru Slides Examined: In-house known positive controls were evaluated along with the test tissue. These control slides run alongside of the patients sample show appropriate staining. Internal positive and negative controls when available are evaluated Immunohistochemistry technical testing was performed at [facility], Pathology Laboratory where it was developed and [...] qualified to perform high complexity clinical laboratory testing.[facility], Department of Pathology, [address] [place] [address], [facility], Department of Pathology, [address] [place] [address], [facility], [facility] of [facility], [address] [place] [address], AYAL SCREEN, URINE, [id number] 09:09:56 Test Item Value Reference Range Interpretation Comments SCAN RESULT (test code = See scanned report. [id number]) BODY FLUID CULTURE + GRAM [id number] 08:36:33 Test Item Value Reference Range Interpretation Comments CULTURE (BEAKER) (test code = 1095) No growth XR DXA BONE DENSITY [id number] 00:58:42 [facility] : 1965 Sex: FEXAM: XR [...] Signed By: Ken Sauer03/11/2023 01:00 CDTWorkstation Name: [id number] CHEST 2 VIEWS 2023-03-10 14:22:18 [facility]ISI PATIENCELEIDY CURTIS : 1965 Sex: FEXAM: PA and lateral [...] Signed By: Lilo Domingo03/10/2023 14:24 CDTWorkstation Name: [id number] ZOSTER ANTIBODY, [id number] 08:09:51 Test Item Value Reference Range Interpretation Comments VARICELLA ZOSTER IGG (AL) (BEAKER) 3.3 (test code = 3197) VARICELLA ZOSTER RESULT INTERPRETATIONS: <=0.8 Al Nonreactive: Presumed non- immune to VZV 0.9-1.0Al Equivocal >=1.1 Al Reactive: Presumed immune to VZV TOXOPLASMA GONDII ANTIBODY, [id number] 08:09:51 Test Item Value Reference Range Interpretation Comments TOXOPLASMA GONDII IGG QUANTITATIVE < IU/mL <10.0 (BEAKER) (test code = 3428) Toxoplasma Gondii IgG Result Interpretation: </= 9.9 IU/mL Normal 10-11 IU/mL Equivocal >/= 12IU/mL PositiveBODY FLUID CELL COUNT WITH DIFFERENTIAL 2023-03-09 18:42:15 Test Item Value Reference Range Interpretation Comments APPEARANCE FLUID Turbid Clear A (BEAKER) (test code = 510) COLOR FLUID (BEAKER) [place] Colorless, Straw A (test code = 511) RBC FLUID (BEAKER) 52381 /cu mm <=1 H (test code = [...] code = count. Negative for 2619) malignancy [id number] Shaneka Saab M.D. (BEAKER) (test code = (electronic 2620) signature) CONTAINER BODY FLUID EDTA Tube (BEAKER) (test code = 2873) XR MANDIBLE 4 VIEWS [id number] 18:04:10 [facility] : 1965 Sex: FEXAMINATION: XR MANDIBLE 4 VIEWS MIN INDICATION: PRE LIVER TRANSPLANT EVALCOMPARISON: None DISCUSSION:Osseous detail is partially obscured by overlying bones/soft tissues.No acute fracture or osseous abnormality given exam limitations. No joint malalignment or dislocation. The soft tissues are unremarkable. IMPRESSION:No acute osseous abnormality.Electronically Signed By: Deep Soler03/09/2023 18:06 CDTWorkstation Name: [id number] 17:13:55 Test Item Value Reference Range Interpretation Comments T4 TOTAL (BEAKER) (test code = 895) 7.7 ug/dL 4.9-11.7 Neurology Stroke Physician ID - [id number] 16:33:38 Test Item Value Reference Range Interpretation Comments THYROID STIMULATING HORMONE 4.265 uIU/mL 0.350-4.940 (BEAKER) (test code = 772) Neurology Stroke Physician ID - MMCARCINOEMBRYONIC ANTIGEN (CEA)2023-03-09 16:33:38 Test Item Value Reference Range Interpretation Comments CARCINOEMBRYONIC ANTIGEN (BEAKER) 2.2 ng/mL 0.0-5.0 (test code = 685) Neurology Stroke Physician ID - MMHEPATITIS B CORE ANTIBODY, [id number] 16:33:38 Test Item Value Reference Range Interpretation Comments HEPATITIS B CORE IGM ANTIBODY Nonreactive Nonreactive (AKER) (test code = 645) Neurology Stroke Physician ID - MMHIV-1 ANTIGEN WITH HIV-1/2 [id number] 16:33:38 Test Item Value Reference Range Interpretation Comments HIV-1 ANTIGEN WITH HIV 1\\T\\2 Nonreactive Nonreactive ANTIBODY (2) ([facility]) (test code = 2586) Neurology Stroke Physician ID - [id number] 15:58:22 Test Item Value Reference Range Interpretation Comments T3 TOTAL (AKER) (test code = 0.72 ng/mL 0.60-1.81 656) Neurology Stroke Physician ID - [id number] 15:40:58 Test Item Value Reference Range Interpretation Comments TRANSFERRIN ([facility]) (test code = 145 mg/dL 174-382 L 541) Neurology Stroke Physician ID - MMSpecimen slightly ictericCRYPTOCOCCAL [id number] 14:32:45 Test Item Value Reference Range Interpretation Comments CRYPTOCOCCAL ANTIGEN, SERUM Negative Negative, Interference ([facility]) (test code = 1828) [id number] 14:32:11 Test Item Value Reference Range Interpretation Comments RPR SCREEN ([facility]) (test code = Nonreactive Nonreactive 420) HEMOGLOBIN [id number] 13:55:09 Test Item Value Reference Range Interpretation Comments HEMOGLOBIN A1C 4.7 % See_Comment [Automated m essage] ELECTROPHORESIS ([facility]) The system which (test code = 3811) generated this result transmitted ref erence range: <=5.6%. The reference range was not used to int erpret this result as normal/abnormal . "The A1c is measured using a NGSP-certified method. HbA1c value equal to or greater than 6.5% as thediagnosis cutoff for diabetes. An HbA1c value of 5.7- 6.4% indicates increased risk for diabetes (prediabetes)."Neurology Stroke Physician ID - ADMOperator ID - ADMBLOOD GAS, [id number] 13:50:57 Test Item Value Reference Range Interpretation Comments PH ARTERIAL (AKER) (test code = 7.49 7.35-7.45 H 383) [...] (test code = 1819) 21.0 VITAMIN D, [id number] 13:45:25 Test Item Value Reference Range Interpretation Comments VITAMIN D 25-OH (BEAKER) (test 17.2 ng/mL 6.6-49.9 code = 2764) Effective 06/22/2017: Reference Range ChangeNew: 6.6-49.9 ng/mL Previous: 13.0- 47.8 ng/mLRecommendedVitamin D Target Range: 30.0-40.0 ng/mLOperator ID - ED [id number] 11:33:41Medical Cytology Report Case: [id number] Authorizing Provider: Joseluis Stoner MD Collected: 03/03/2023 01:57 PM Ordering Location: [facility] Diagnostic Imaging Received: 03/04/2023 11:36 AM Pathologist: Shaneka Saab MD Specimen: Pleural, Left LEFT PLEURAL FLUID (CYTOSPINS AND CELL BLOCK): - NEGATIVE FOR MALIGNANCY - Chronic inflammatory cells present in background Signing Pathologist Direct Phone Line: [phone] signed by Shaneka Saab MD on 03/09/2023 at 11:33 [id number], [id number] y.o. F presenting with left pleural effusion. PMH: asthma, cirrhosis, HTN, abscess (MRSA)LEFT PLEURAL FLUIDA. Pleural, LeftReceived 1100 mls bloody white chylous opaque fluid; prepared 4 cytospins and cell block(A2)(collodion bag) - the cell block was fixed in formalin at 13:05 on 03/07/2023 Performed.[facility]actorySt[facility], [facility] of [facility], [address] [place] [address], [facility], Department of Pathology, [address] [place] [address], Cv. [facility],Department of Pathology, [address] [place] [address], [id number] 10:33:02 Test Item Value Reference Range Interpretation Comments ETHANOL (BEAKER) (test code = 400) < mg/dL <=10 Neurology Stroke Physician ID - MMCOMPREHENSIVE METABOLIC [id number] 10:14:53 Test Item Value Reference Range Interpretation [...] not appl icable for dialysis patien ts Neurology Stroke Physician ID - MMOperator ID - MMSpecimen slightly [id number] 09:51:32 Test Item Value Reference Range Interpretation Comments MAGNESIUM (BEAKER) (test code = 1.9 mg/dL 1.6-2.6 627) Neurology Stroke Physician ID - [id number] 09:51:32 Test Item Value Reference Range Interpretation Comments PHOSPHORUS (BEAKER) (test code = 3.3 mg/dL 2.3-4.7 604) Neurology Stroke Physician ID - MMURIC [id number] 09:51:32 Test Item Value Reference Range Interpretation Comments URIC ACID (BEAKER) (test code = 8.2 mg/dL 2.6-7.2 H 773) Neurology Stroke Physician ID - MMSpecimen slightly ictericLIPID [id number] 09:51:32 Test Item Value Reference Range Interpretation [...] Borderline 130-159 High 160-189 Very High >=190 Neurology Stroke Physician ID - MMSpecimen slightly ictericBILIRUBIN, [id number] 09:51:32 Test Item Value Reference Range Interpretation Comments BILIRUBIN DIRECT (BEAKER) (test 1.0 mg/dL 0.1-0.5 H code = 706) Neurology Stroke Physician ID - MMGAMMA GLUTAMYL TRANSFERASE (GGT)2023-03-09 09:51:32 Test Item Value Reference Range Interpretation Comments GAMMA GLUTAMYL TRANSFERASE (BEAKER) 51 U/L 9-64 (test code = 364) Neurology Stroke Physician ID - MMSpecimen slightly ictericPREGNANCY SCREEN, [id number] 09:24:02 Test Item Value Reference Range Interpretation Comments TEST URINE (BEAKER) (test Negative Negative code = 583) [id number] 09:11:02 Test Item Value Reference Range Interpretation Comments FIBRINOGEN LEVEL (BEAKER) (test 229 mg/dl 225-434 code = 658) [id number] 09:11:02 Test Item Value Reference Range Interpretation Comments PARTIAL THROMBOPLASTIN TIME 29.4 seconds 22.5-36.0 (BEAKER) (test code = 760) PROTHROMBIN TIME/[id number] 09:10:24 Test Item Value Reference Range Interpretation [...] mechanical heart valves.CBC W/PLT COUNT & AUTO [id number] 08:59:26 Test Item Value Reference Range Interpretation [...] 0.00-1.00 PERCENT (BEAKER) (test code = 2801) [id number] 13:29:33 [facility] 1965 Sex: FUS THORACENTESISUS Guided Thoracentesis History: pleural effusionPrimary Neurology Stroke Physician: Goldie Albright MD.Sedation: None. Anesthesia: Lidocaine local [...] recovery recovery, [facility]. Complications: None immediate.Specimen: Sent to the lab. IMPRESSION:Impression: Successful ultrasound-guided thoracentesis of left pleural effusion withrecovery of 2.1 liters of pleural fluid. Thank you for the opportunity to assist in the care of your patient.Electronically Signed By: Goldie Albright03/08/2023 13:31 CDTWorkstation Name: [id number] CHEST 1 VIEW PORTABLE / [id number] 13:05:28 [facility] : 1965 Sex: FXR CHEST [...] Signed By: Goldie Albright03/08/2023 13:07 CDTWorkstation Name: [id number] CULTURE + SMEAR 2023-03-07 16:58:04 Test Item Value Reference Range Interpretation Comments CULTURE (BEAKER) (test No fungus isolated in code = 1095) 28 days FUNGUS SMEAR (BEAKER) No fungi seen (test code = 1406) BODY FLUID CELL COUNT WITH [id number] 19:21:25 Test Item Value Reference Range Interpretation Comments APPEARANCE FLUID Turbid Clear A (BEAKER) (test code = 510) COLOR FLUID (BEAKER) [place] Colorless, Straw A (test code = 511) RBC FLUID (BEAKER) 78162 /cu mm <=1 H (test code = [...] code = count. Negative for 2619) malignancy BGGU-DITPZRBZJDL-512 Shaneka Saab M.D. (BEAKER) (test code = (electronic 2620) signature) CONTAINER BODY FLUID EDTA Tube (BEAKER) (test code = 2873) XR CHEST 1 VIEW PORTABLE / [id number] 15:32:34 [facility] : 1965 Sex: FXR CHEST 1 VIEW PORTABLE / BEDSIDETECHNIQUE: Frontal view(s) of the chest.INDICATION: post thoracentesisCOMPARISON: 02/21/2023FINDINGS/IMPRESSION:Lines/Tubes: NoneLungs/pleura: A lingular/left lower lobe opacity with adjacent leftpleural effusion. No right-sided pleural effusion. No pneumothorax.Heart and Me diastinum: Unremarkable.Soft Tissues and Bones: Unremarkable.Electronically Signed By: Goldie Albright03/03/2023 15:34 CDTWorkstation Name: [id number] 14:52:49 [facility] : 1965 Sex: FPROCEDURE: Ultrasound-guided thoracentesisProcedural PersonnelAttending physician(s): Brayden Coe physician(s): NoneResident physician(s): NoneAdvanneshoba county general hospital practice provider(s): NonePre-procedure diagnosis: Large left pleural [...] the report as written.Electronically Signed By: Carolyn Jassi Viluii4903/03/2023 15:04 CDTWorkstation Name: [id number] LAB [id number] 14:03:21 Test Item Value Reference Range Interpretation Comments SCAN RESULT (test see scanned report See scanned report. code = 9524695) see scanned reportCT BRAIN WITHOUT IV [id number] 20:48:50 [facility] : 1965 Sex: FEXAM: CT [...] Signed By: Erika Almazan02/26/2023 20:50 CDTWorkstation Name: [id number] METABOLIC [id number] 18:18:27 Test Item Value Reference Range Interpretation [...] not appl icable for dialysis patien ts Neurology Stroke Physician ID - MITUL BSpecimen slightly [id number] 18:18:27 Test Item Value Reference Range Interpretation Comments LIPASE (BEAKER) (test code = 749) 65 U/L 8-78 Neurology Stroke Physician ID - MITUL BSpecimen slightly ictericCBC W/PLT COUNT & AUTO [id number] 18:18:20 Test Item Value Reference Range Interpretation [...] 0.00-1.00 PERCENT (BEAKER) (test code = 2801) [id number] 18:04:10 Test Item Value Reference Range Interpretation Comments AMMONIA (BEAKER) (test 40 mol/L 18-72 Speci men slightly code = 348) hemolyzed Neurology Stroke Physician ID - ADMINBODY FLUID CULTURE + GRAM [id number] 11:35:18 Test Item Value Reference Range Interpretation Comments CULTURE (BEAKER) (test code = 1095) No growth [id number] 12:49:07Medical Cytology Report Case: [id number] Authorizing Provider: Joseluis Stoner MD Collected: 02/21/2023 11:49 AM Ordering Location: [facility] Received: 02/22/2023 09:24 AM Pathologist: Salvador Davenport MD Specimen: Pleural, Left LEFT PLEURAL FLUID (CYTOSPINS AND CELL BLOCK): - NEGATIVE FOR MALIGNANCYReactive mesothelial cells and mixed inflammatory cells present Signing Pathologist Direct Phone Line: [phone] signed by Salvador Davenport MD on 02/23/2023 at 12:49 [id number], [id number] y.o. Fwith a PMH of HTN, asthma, Cifuentes cirrhosis, esophageal varices, refractory ascites and hepatic hydrothorax. Also with gallstones/biliary obstruction needing axial stent placement who was admitted to OSHfor nausea and emesis x one day and transferred to [facility] for further evaluation and consideration ofcholeystitis / cholelithiasis. LEFT PLEURAL FLUIDA. Pleural, LeftReceived 1100 ml gelatinous orange cream fluid; prepared 4 cytospins and cell block(A2)(collodion bag) - the cell block was fixed in formalin at 16:07 on 3Performed.S[facility]actoryB[facility], [facility] of [facility], [address] [place] [address], [facility], Department of Pathology, [address] [place] [address], [facility], [facility] of [facility]ology, [address] [place] [address], YH [id number] 15:34:35 [facility] : 1965 Sex: FUltrasound guided left thoracentesis.Clinical History: Left pleural effusion.Modality: Ultrasound.Sedation: None. Operations Clerk: Danuta VERONICACAssistant: None. Estimated Blood Loss: 1ccSpecimen: [...] guided left thoracentesis.BODY FLUID CELL COUNT WITH [id number] 13:54:05 Test Item Value Reference Range Interpretation Comments APPEARANCE FLUID (BEAKER) (test Turbid Clear A code = 510) COLOR FLUID (BEAKER) (test code [place] Colorless, Straw A = 511) RBC FLUID (BEAKER) (test code = 38863 /cu mm <=1 H 513) TOTAL NUCLEATED [...] 2873) XR CHEST 1 VIEW PORTABLE / [id number] 12:41:37 [facility] : 1965 Sex: FINDICATION: s/p left thoraCOMPARISON: 02/17/2023TECHNIQUE: Single frontal view of the chest.FINDINGS: Lines, tubes, and devices: None.Lungs and pleura: Clear lungs. No pneumothorax.Heart and mediastinum: Normal heart size. Unremarkable mediastinalcontours.Osseous structures: No acute abnormality. Mild to moderate spondylosisand facet arthropathy are present within the spine.Other: None.IMPRESSION:No acute intrathoracic abnormality.US [id number] 13:20:59[facility] : 1965 Sex: FUltrasound guided left thoracentesis.Clinical History: Left pleural effusion.Modality: Ultrasound.Sedation: None. Operations Clerk: Danuta Corralistant: None. Estimated Blood Loss: 1ccSpecimen: [...] and uncomplicated ultrasound guided left thoracentesis.US ABDOMEN [id number] 13:20:53 [facility] : 1965 Sex: FHistory: Ascites. PROCEDURE: Limited sonographic examination of the abdomen was performed inpreparation for planned ultrasound-guided paracentesis. Limitedsonographic examination of the abdomen showed only a trace amount ofperihepatic and midline fluid. Therefore, paracentesis was notperformed. IMPRESSION:1. Trace ascites, not enough for planned paracentesis.XR CHEST 1 VIEW PORTABLE / [id number] 08:45:23[facility] : 1965 Sex: FChest AP portableCOMPARISON STUDY: 02/16/2023History provided: Status post left thoracentesisPleural fluid has been evacuated on the left. No pneumothorax. Lungs areclear. Heart size normal.COMPREHENSIVE METABOLIC [id number] 05:08:14 Test Item Value Reference Range Interpretation [...] not appl icable for dialysis patien ts Neurology Stroke Physician ID - MMSpecimen slightly ictericPROTHROMBIN TIME/[id number] 04:59:05 Test Item Value Reference Range Interpretation [...] mechanical heart valves.CBC W/PLT COUNT & AUTO [id number] 04:48:06 Test Item Value Reference Range Interpretation [...] 0-0 (test code = 413) SODIUM, RANDOM [id number] 21:11:21 Test Item Value Reference Range Interpretation Comments SODIUM URINE (BEAKER) (test code = 20 meq/L 243) Reference Range: No NormalsOperator ID - ADMINURINALYSIS [id number] 21:04:51 Test Item Value Reference Range Interpretation Comments RBC UA (BEAKER) (test code = 519) 20 /HPF WBC UA (BEAKER) (test code = 520) 4 /HPF BACTERIA (BEAKER) (test code = Occasional 517) SQUAMOUS EPITHELIAL (BEAKER) (test 4 /HPF code = 516) Neurology Stroke Physician ID - techURINALYSIS WITH MICROSCOPIC IF [id number] 21:02:38 Test Item Value Reference Range Interpretation [...] = 463) SOURCE(BEAKER) (test code = 2795) Neurology Stroke Physician ID - techXR CHEST 1 VIEW PORTABLE / [id number] 09:34:56 [facility] : 1965 Sex: FINDICATION: cough, recent left pleural effusionCOMPARISON: NoneTECHNIQUE: Single frontal view of the chest.FINDINGS: Lungs and pleura: Mild basilar subsegmental atelectasis. Questionabletrace left effusion.Heart and mediastinum: Normal heart size. Unremarkable mediastinalcontours.Osseous structures: No acute abnormality.Other: None.IMPRESSION:Mild basilar subsegmental atelectasis. Questionable trace left effusion.HEPATIC FUNCTION [id number] 06:43:05 Test Item Value Reference Range Interpretation [...] (test code = 42 U/L 6-55 347) Neurology Stroke Physician ID - ADMINSpecimen slightly ictericBASIC METABOLIC [id number] 06:43:04 Test Item Value Reference Range Interpretation [...] not appl icable for dialysis patien ts Neurology Stroke Physician ID - ADMINSpecimen slightly ictericCBC W/PLT COUNT & AUTO [id number] 06:02:40 Test Item Value Reference Range Interpretation [...] 0.00-1.00 PERCENT (BEAKER) (test code = 2801) [id number] 18:46:14Medical Cytology Report Case: [id number] Authorizing Provider: Joseluis Stoner MD Collected: 02/04/2023 02:25 PM Ordering Location: [facility] Radiology Ultrasound Received: 02/08/2023 08:26 AM Pathologist: Simon Corona MD Specimen: Pleural, Left LEFT PLEURAL FLUID (CYTOSPINS AND CELL BLOCK): - NEGATIVE FOR MALIGNANCY - Reactive mesothelial cells, histiocytes, and lymphocytes Signing Pathologist Direct Phone Line: [phone] signed by Simon Corona MD on 02/09/2023 at 6:46 [id number], [id number] y.o. F with h/o CIFUENTES cirrhosis decompensated with EV, hydrothorax HTN, abscess (MRSA), asthma.LEFT PLEURAL FLUIDA. Pleural, LeftReceived 1100 ml orange cream fluid; prepared 4 cytospins and cell block(A2)(collodion bag) - the cell block was fixed in formalin at 16:44 on 02/08/2023erformed.[facility], Department of Pathology, [address] [place] [address], [facility], Department of Pathology, [address] [place] [address], [facility]fuylcOjai [facility], Department of Pathology, [address] [place] [address], XGOB FLUID CULTURE + GRAM [id number] 13:30:56 Test Item Value Reference Range Interpretation Comments CULTURE (BEAKER) (test code = 1095) No growth BODY FLUID CELL COUNT WITH [id number] 17:29:30 Test Item Value Reference Range Interpretation Comments APPEARANCE FLUID (BEAKER) (test Bloody Clear A code = 510) COLOR FLUID (BEAKER) (test code Red Colorless, Straw A = 511) RBC FLUID (BEAKER) (test code = 02256 /cu mm <=1 H 513) TOTAL NUCLEATED [...] EDTA Tube (test code = 2873) U/S, [id number] 16:18:00SAURABH NICOLE MD Laterality?- >LeftLabs to be Ordered:->Body Fluid Culture (w/Gram Stain, C\\T\\S)AFB smear and culture Labs to be Ordered:->CytologyLabs to be Ordered:->Fungal CultureLabs to be Ordered:->Glucose+LDH+ProteinLabs to be Ordered:->Cell CountLabs to be Ordered:->Other (please add comment)Reason for Exam:- >recurrent left pleural effusion [facility] : 1965 Sex: FFINAL REPORT Ultrasound guided left thoracentesis. Clinical History: Left pleural effusion. Modality: Ultrasound. Sedation: None. Operations Clerk: Danuta Taylor PA-C Material Handler 1St Shift: None. Estimated Blood Loss: 1cc Specimen: 1100 [...] ultrasound guided left thoracentesis. Signed: Lee Diaz MDReport Verified Date/Time: 02/04/2023 16:18:02 Reading Location: [address] Ultrasound Reading Room Electronically signed by: Cirilo GROSSMAN 02/04/2023 04:18 PMRAD, CHEST, 1 VIEW, NON DEPT 2023-02-04 15:10:00RADHASAURABH MD Reason for exam:->s/p left thoraShould this be performed at the bedside?->YesIn US [facility] : 1965 Sex: [...] 02/04/2023 15:10:45 CBC W/PLT COUNT & AUTO [id number] 16:57:36 Test Item Value Reference Range Interpretation [...] (BEAKER) (test code = 2801) HEPATIC FUNCTION [id number] 16:17:22 Test Item Value Reference Range Interpretation [...] (test code = 42 U/L 6-55 347) Neurology Stroke Physician ID - BSSpecimen slightly ictericBASIC METABOLIC [id number] 16:17:21 Test Item Value Reference Range Interpretation [...] not appl icable for dialysis patien ts Neurology Stroke Physician ID - BSSpecimen slightly ictericPROTHROMBIN TIME/[id number] 16:05:29 Test Item Value Reference Range Interpretation Comments PROTIME (BEAKER) (test code = 18.5 seconds 11.9-14.2 H 759) INR (BEAKER) (test code = 370) 1.58 <=5.90 RECOMMENDED COUMADIN/WARFARIN INR THERAPY RANGESSTANDARD DOSE: 2.0 - 3.0 Includes: PROPHYLAXIS for venous thrombosis, systemic embolization; TREATMENT for venous thrombosis and/or pulmonary embolus.HIGH RISK: Target INR is 2.5-3.5 for patients with mechanical heart valves.BLOOD [id number] 16:00:58 Test Item Value Reference Range Interpretation Comments CULTURE (BEAKER) (test No growth in 5 days code = 1095) The specimen volume collected for this blood culture was below the optimum (10 mL per bottle or 20 mL total). Use of lower volumes may adversely affect recovery and/or detection times of some organisms.BLOOD [id number] 16:00:58 Test Item Value Reference Range Interpretation Comments CULTURE (BEAKER) (test No growth in 5 days code = 1095) The specimen volume collected for this blood culture was below the optimum (10 mL per bottle or 20 mL total). Use of lower volumes may adversely affect recovery and/or detection times of some organisms.[id number] 14:39:22 Medical Cytology Report Case: [id number] Authorizing Provider: Naheed Villalta MD Collected: 01/21/2023 08:44 AM Ordering Location: [address] Received: 01/21/2023 03:34 PM Service Pathologist: Hany Ferrer MD Specimen: Pleural, Left LEFT PLEURAL FLUID (CYTOSPINS AND CELL BLOCK): - NEGATIVE FOR MALIGNANCY BLOOD WITH REACTIVE MESOTHELIAL CELLS AND MIXED CHRONIC INFLAMMATORY CELLS Signing Pathologist Direct Phone Line: [phone] signed by Hany Ferrer MD on 01/24/2023t 2:39 [id number], [id number] y.o. F with h/o HTN, asthma, decompensated [...] was fixed in formalin at 16:38 on 01/21/2023erformed.[facility], Department of Pathology, [address] [place] [address], [facility]mvvO[facility], Department of Pathology, [address] [place] [address], WaappoOjai [facility], Department of Pathology, [address] [place] [address], ZQWL FLUID CULTURE + GRAM [id number] 14:24:35 Test Item Value Reference Range Interpretation Comments CULTURE (BEAKER) (test code = 1095) No growth CALCIUM, [id number] 05:18:15 Test Item Value Reference Range Interpretation Comments CALCIUM IONIZED (BEAKER) (test 1.08 mmol/L 1.12-1.27 L code = 698) PH, BLOOD (BEAKER) (test code = 7.45 1810) COMPREHENSIVE METABOLIC [id number] 04:54:27 Test Item Value Reference Range Interpretation [...] not appl icable for dialysis patien ts Neurology Stroke Physician ID - ADMINSpecimen slightly [id number] 04:53:09 Test Item Value Reference Range Interpretation Comments PHOSPHORUS (BEAKER) (test code = 3.1 mg/dL 2.3-4.7 604) Neurology Stroke Physician ID - [id number] 04:53:08 Test Item Value Reference Range Interpretation Comments MAGNESIUM (BEAKER) (test code = 1.8 mg/dL 1.6-2.6 627) Neurology Stroke Physician ID - ADMINCBC W/PLT COUNT & AUTO [id number] 04:36:32 Test Item Value Reference Range Interpretation [...] (BEAKER) (test code = 2801) COMPREHENSIVE METABOLIC [id number] 04:44:22 Test Item Value Reference Range Interpretation [...] not appl icable for dialysis patien ts Neurology Stroke Physician ID - MMSpecimen slightly ictericCBC W/PLT COUNT [...] PERCENT (BEAKER) (test code = 2801) U/S, [id number] 18:07:00SAURABH NICOLE MD Laterality?- >Left Reason for exam:->SHORTNESS OF BREATH Reason for exam:->ABNORMAL IMAGING RESULT Labs to be Ordered:->Body Fluid Culture (w/Gram Stain, C\\T\\S) Labsto be Ordered:->Cytology Labs to be Ordered:->Glucose+LDH+Protein Labs to be Ordered:->CellCount [facility] : 1965 Sex: FFINAL REPORT Ultrasound guided left-sided thoracentesis. Clinical History: Left pleural effusion. Modality: Ultrasound. Sedation: None. Operations Clerk: Carlos Ray PA-C Material Handler 1St Shift: None. Estimated Blood Loss: 1cc Specimen: 2450 cc of [...] MDReport Verified Date/Time: 01/21/2023 18:07:57 Reading Location: [address] Ultrasound Reading Room BODY FLUID CELL COUNT WITH [id number] 16:39:03 Test Item Value Reference Range Interpretation [...] = 2873) RAD, CHEST, 1 VIEW, NON [id number] 09:48:00SAURABH NICOLE MD Reason for exam:->s/p left thoracentesisShould this be performed at the [facility]?->Yes[facility] : 1965 Sex: [...] abnormality. Upper abdomen: Unremarkable. Signed: Lee Diaz MDRepellis [facility] Verified Date/Time: 01/21/2023 09:48:04 COMPREHENSIVE METABOLIC [id number] 05:25:17 Test Item Value Reference Range Interpretation [...] not appl icable for dialysis patien ts Neurology Stroke Physician ID - mmSpecimen slightly ictericLACTIC ACID, [id number] 05:14:06 Test Item Value Reference Range Interpretation Comments LACTATE BLOOD VENOUS (2) (BEAKER) 1.43 mmol/L 0.50-2.00 (test code = 2872) Neurology Stroke Physician ID - mmSpecimen slightly ictericCBC (HEMOGRAM ONLY)2023-01-21 [...] WBC 0-0 (test code = 413) PROTHROMBIN TIME/[id number] 00:49:25 Test Item Value Reference Range Interpretation [...] valves.CT, CHEST WITH IV CONTRAST- PE TEST [id number] 17:44:00SAURABH NICOLE MD Unlisted Reason for Exam - Click Yes and Enter Reason Below->No [facility] : 1965 Sex: [...] MDReport Verified Date/Time: 01/20/2023 17:44:58 LACTIC ACID, [id number] 16:27:23 Test Item Value Reference Range Interpretation Comments LACTATE BLOOD VENOUS 2.52 mmol/L 0.50-2.00 H Specime n slightly (2) (BEAKER) (test hemolyzed code = 2872) Neurology Stroke Physician ID - ADMINSpecimen slightly ictericRAD, CHEST, 1 VIEW, NON DEPT 2023-01-20 15:36:00SAURABH NICOLE MD Reason for exam:->SHORTNESS OF BREATHReason for exam:->ABNORMAL IMAGING RESULTShould this be performed at the bedside?->Yes [facility] : 1965 Sex: [...] Verified Date/Time: 01/20/2023 15:36:18 HIGH SENSITIVITY TROPONIN [id number] 15:35:54 Test Item Value Reference Range Interpretation Comments HIGH SENSITIVITY TROPONIN I (test 8 pg/ml <=17 code = 7502557) Neurology Stroke Physician ID - ADMINThe COATING LINE WORKER STAT High Sensitivity Troponin-I results should be used in conjunction with other diagnostic information such as ECG, clinical observations and information, and patientsymptoms to aid in the diagnosis of [place]. HCG, QUANTITATIVE, [id number] 15:35:54 Test Item Value Reference Range Interpretation Comments GONADOTROPIN, CHORIONIC (HCG) QUANT < mIU/mL 0-10 (BEAKER) (test code = 649) Non- Females: <10 mIU/mL Females: Gestation Age Reference Range(mIU/mL) 0.2-1 Week 5-50 1-2 Weeks 50-500 2-3 Weeks 100-5,000 3-4 Weeks 500-10,000 4-5 Weeks 1,000-50,000 5-6 Weeks 10,000-100,000 6-8 Weeks 15,000- 200,000 2-3 Months 10,000-100,000 Neurology Stroke Physician ID - ADMINB-TYPE NATRIURETIC FACTOR (BNP)2023-01-20 15:33:30 Test Item Value Reference Range Interpretation Comments B-TYPE NATRIURETIC PEPTIDE (BEAKER) 11 pg/mL 0-100 (test code = 700) Neurology Stroke Physician ID - ADMINCOMPREHENSIVE METABOLIC [id number] 15:29:09 Test Item Value Reference Range Interpretation [...] not appl icable for dialysis patien ts Neurology Stroke Physician ID - ADMINSpecimen slightly [id number] 15:29:09 Test Item Value Reference Range Interpretation Comments LIPASE (BEAKER) (test code = 749) 61 U/L 8-78 Neurology Stroke Physician ID - ADMINSpecimen slightly estrqoaAZQWMISHI2719-51-45 15:29:08 Test Item Value Reference Range Interpretation Comments MAGNESIUM (BEAKER) 1.9 mg/dL 1.6-2.6 Specimen markedly (test code = 627) hemolyzed Neurology Stroke Physician ID - ADMINLACTIC ACID, [id number] 15:25:00 Test Item Value Reference Range Interpretation Comments LACTATE BLOOD VENOUS 3.00 mmol/L 0.50-2.00 H Specime n markedly (2) (BEAKER) (test hemolyzed code = 4472) Neurology Stroke Physician ID - ADMINSpecimen slightly [id number] 15:17:14 Test Item Value Reference Range Interpretation Comments PARTIAL THROMBOPLASTIN TIME 29.9 seconds 22.5-36.0 (BEAKER) (test code = 760) PROTHROMBIN TIME/[id number] 15:16:12 Test Item Value Reference Range Interpretation [...] mechanical heart valves.CBC W/PLT COUNT & AUTO [id number] 15:12:40 Test Item Value Reference Range Interpretation [...] (BEAKER) (test code = 2801) pH, body ijarh7404-95-52 02:37:54 Test Item Value Reference Range Interpretation Comments pH, Body Fluid 7.6 (test code = 2748-2) PH FLUID TYPE Body fluid Reference (test code = range:Reference 80134-3) ranges have not been established on thistype of flu id for this test. EDILBERTO (test code Performing Lab = EDILBERTO) *[employer] [address] [place] [address] Stephane Jeffers MD, PhD [facility] HospitalCOMPREHENSIVE METABOLIC [id number] 06:51:38 Test Item Value Reference Range Interpretation [...] 1092) DATA TO CALCULA TE ESTIMATED GFR. Neurology Stroke Physician ID - MIGUELOSpecimen slightly trlgvaiZJNQMFGBXQ5740-61-00 06:11:49 Test Item Value Reference Range Interpretation Comments PHOSPHORUS (BEAKER) (test code = 3.6 mg/dL 2.3-4.7 604) Neurology Stroke Physician ID - EJKPVOOEVZZGBK1619-84-68 06:11:48 Test Item Value Reference Range Interpretation Comments MAGNESIUM (BEAKER) (test code = 1.7 mg/dL 1.6-2.6 627) Neurology Stroke Physician ID - MIGUELOCBC W/PLT COUNT & AUTO [id number] 05:40:48 Test Item Value Reference Range Interpretation [...] PERCENT (BEAKER) (test code = 2801) CALCIUM, [id number] 05:33:21 Test Item Value Reference Range Interpretation Comments CALCIUM IONIZED (BEAKER) (test 1.05 mmol/L 1.12-1.27 L code = 698) PH, BLOOD (BEAKER) (test code = 7.50 1810) BLOOD [id number] 00:01:46 Test Item Value Reference Range Interpretation Comments CULTURE (BEAKER) (test No growth in 5 days code = 1095) The specimen volume collected for this blood culture was below the optimum (10 mL per bottle or 20 mL total). Use of lower volumes may adversely affect recovery and/or detection times of some organisms.[id number] 19:31:37 Test Item Value Reference Range Interpretation Comments Case Report (test code Medical Cytology = 104) Report Case: [id number] Authorizing Provider: Marisabel Ho MD Collected: 12/30/2022 09:33 AM Ordering Location: [address] Received: 12/30/2022 01:05 PM Service Pathologist: Lilibeth Mello MD Specimen: Pleural, Left DIAGNOSIS (test code = n8vxoDFhRHEuz7vqAMChoL 3220) FuZzEwMzNcZnRuYmpcdWMx IHtccnRmMVxlcGljMTAyMD DgCA2jkVxutCn5jByvKYBw qgD8vCQtWXocc3keFDN1c5 lxigybJSVtGSgtIv7ziMEm tIirYlMcEJPtKSf7oT31RN QbqC6hsTWrMQi6BSDmtOBi xxDhBrWcLAEndSYbhAJ0PB PwEZ9seetvKOwtMSgjNVYy oxV2ITKkbCWaX9WaTZGsCV 4jrmezXFL5YFabXPQbSFQ0 DuUaMPNzx0Vingz4DxUztM FyZFxwbGFpblxmczIwIExF RlQgUExFVVJBTCBGTFVJRC QdO2oAO6CCAF6TUFJUYERD TRoGVMEJM6RPPAukuKehHW AgICAtICBORUdBVElWRSBG Q8WdEJJLGIaBXB9LKPvxXG IgICAgLSAgQmVuaWduIGFu EQGqVSXjtKf4HNUxOWGcwH kqdIaelYYvNNzlkrUhLC3c kFAeXHqgzNtrFXQ3lKSpJU 6cEBWkjd0jlTTooC8jsHBd nGG8wW0zUGvnJTQ8r5dteD YxXHNzdGUxODAwMFxhbnNp UQPwCapniptlGCAgDVZ4pl BiVZQyJGjaFOZzQHhrOs7t qAAcuVqzReFcEUFfw0ccgn ROcvssuJu5f1caGMQlSiE0 kBUnLGqiR8slxnCgkCXiLG HzOTi7xM73SXSxeX2ukUIy SWayxjMyTmQ7XWxaDUZaEw L3RDUsqNAmSDJaI6gtADPf BIgbZWIlKQtnkIDcVCS5jJ pdb8K2hCYazSHpbYjmAhXd AjWnYjLJe4BsKRt8fLzfE1 VcDVUsMkY1pHXrYVAbJSiv SEHrBTZfjlS2nA90FXrodw H0oCLvx4Zef26es782rQ6i yMRqCPP1IZBcSRYjhUPlRR AaEWK0LMFwqNNjY5xvVWSl MQ2cvvoqSFacKUbqVGUyoI J9NAXzhRZkV4BgPSMbEXcc ODJcugn9ElJyPh3jhAFmlB zjAJuuy5jdv9eomEEuFux6 VEXjJdDiVhlrRZazf8Nzy2 yjNKLfhp2sFOS6eGHjbEnf e2K2pLXpYVWqiWNpDVLcLK 2pcRFwXTBxmE1xrgzoMZHr YnJkcmhlYWRccGdicmRyZm 3hdIjuIOU7CEktQ0gxvN5h ZpR0IBkwH4gsoI3tAIe4CE khILHmmVA7kjV4XCFzaPSh Z4GmqD4lFNOfEV6ggyv1i5 vkMNK8SOvrMVRxLiH6qzQ8 NDBcaGVhZGVyeTcyMFxmb2 32GLV2AnTxFQHdo3WdQ7Dm cLvyP42xsQqtD97rGVJsuM locD0qcYxoyR5sOiYeGkXi HWqfyNsiKJ0aGDSqU4inaB RuXEKfBQGkO3kiEbHgnT6p iOdyMEjytjGqGSLjLgh6JK AzvFYfCXLfJyq4KZJlOBUf H13fuuxtAPJ3nS9ho9wfh8 VeKQgvMZW1CPTba75lFGne akA4DHlvEz43WPyzTQX8MB pccGFyfX0= CPT Code(s) (test code h8yluCXuIQNfzBHyGPRgZI = 3357) pxxoIsHKNclLGtR8Udwfto ZNjfZC6pBV9qjLrytRXzeJ YaSXNiKcHof2gox598dOHg t3qnNIBGxpqmkKv8pLjrS8 8ix4K8XuhbJ38rnOTeNWN0 XKSzTKBwqZAbCMPyMLR6EI DsuGJaR1rbGEYnWI3kgtdb KSloATdqESWeeKU3HPNzqH QnM0RmYRGkIXkcLMKnsaq6 WdUsIv3nqILdmHgzQPlvFW JkXHBsYWluXGZzMjAgODgx PAcmWUe1OzN3AHRohh7= CLINICAL DATA (test e5wtdVNlELQuxICxZOCjHS code = 3355) oqzrHkRIOagICsZ5Sezkmg FMsuPJ4jGI9izGpzpZAwvY VfFLXxHzKcf5mja548ySBc p3irXPFQwdeayAp3mZnaF1 1oo3W6XbxnL29niKEzAPT0 BXJwCHWxhIXcXKBvIVG6FH KbmHVvT6nvFTRxYC0kwvzq GHskEKucTMLlkUB7AFDvsU HgU4EkGKVpKEvxVZMolbj5 WaAqDy3clGFltXhyOJboLH JkXHBsYWluXGZzMjAgNTgg aY0zPiu+Rlx+m0g2iGWlJ2 7eAGBuk51oEN5gGLNeZXSN PFSCLRImuiCnv6RmutPzB8 EuJKAfxKtaB1MjwHA6ZBFq S3UvJWJdd7DqdPIzZWVtnd KiuUdqqe70yU4gZRctCV3q ZTnaj3YhbmOgQIufiWxjni PiIX98SQLtaIwzd8dvctBt ShXcNwKsYt0jHYMoyOzygu uxd0BtxVH1B3Hwz98rji1f FVB0fH0pIRI9NP94LYVgRZ 4mVAVpe9FfYIEtvRXkfXEt kFGcML2jeDYbqYZzJq3mCV Yra4gkR9aoiLCmkE2njTrp uljEHwxyGT3jUASctHspKS Z1dxIiw2UidlAoBHHryx5r VP87dSLxVKQvSMCsQh3aVO O5QWs4XURgm57sVE8rEOKe WXY0mXZikFHkSmRtZtWsfC iuZPowwIDgohuqam3yzM1w TP49FQBll1WnJIBihsYrc7 vbzhHoHYKzLJ8kHFNkGAK8 qU6zbLZurY== SPECIMEN SOURCE (test d6lrpMIuNHRxwJYjYPElYP code = 3377) oyujYiUOTvoXEuG8Oaxljr CNclSI3qZR3laBxkeCMrdE UdHFLrJbMvs4bik704aWBv w3koPVZStzkhuSb8zFyrI0 0xb0T0UnwyG65cnUObYSK9 UQQfWAPonFPyEUHoRCR4FT QfiGPqZ7avWXPlCF4cvnuy PFsqUWytVVWunYP0CGWtbS GqB5OgABGwIEmuFEKhmmt1 ApZtCj9rmMIcoOdhWWudBS JkXHBsYWluXGZzMjAgTEVG VCBQTEVVUkFMIEZMVUlEXH Bhcn0= GROSS DESCRIPTION (test o6hofAIuHMJnxZRfBJHeZF code = 6150084453) qpvnJeTKInbQYpT7Ioxzht UPeoXA2wWK2hvJkmmKJwjJ QnJYRtVkMyd4mnr569bOWo x2ojBLAKeenfgAx1jKgwY9 6es0Q3ZubxM64tvHKbEDW2 QDYuZGNyjEGwICLaCKX6RB QslJTbZ5aeBRXyXF0nmucw CSysONdyFSRlyTC7PVPojU ZrF5GhXUUpYIggQBThlqs8 SzWsPw6lfMIjpAjjGWfvYm wpkRtlw5EqhMUaWUaiPWMg ADDxZVltXSOvC3HTMAEiNZ N4Old5LqEdPtCBPQJ1IjXn BvnqMBAMPKZbETz8AhX5VU m1YgQGGhNjNRYaFYUzPSEh MOFdZY3aCVqeaALkGMxhIo nkIBplI771FAbtXXUpM6Wn H5EzOLioGDS7BXViVbQaFU RmPK4FSkYcNJycLRW7VKBe QPb7KOd8HI7DAoLeGCUvWi viCGo6MAXdVCa5RJvuWK5K KPncYBg2Mzs9XnJ6MTg6Fe BcXHQgMiBcXHNzIDMgXFxm oUHkKN1mnYxpURQjLXHyZF dzMYKqApQuOO7sHNdumWNs bCwgTGVmdFxwYXJccGFyZF hzZaEmFBWnmCZQx5JaERuo LUPvYIYobGQDf2KmLTlysV YsyovoegRmWIGuC2BhocRp XWOoIOLqvAvqHOJxe11tbU BmbHVpZDsgcHJlcGFyZWQg BJUwkMZnh1SfqyJbRU6pZW LeeXsfKhkmQ5twPTFfZRZv xRflLMybslAxMTxzFP5ufU oeAMBfpUmoHuvrH4qiz6Ph RFGhsRUjXZhtTKSffi7ikX rpLOL4GAYeHsDkJL3uYIS7 UwOuOwGeSkLgk9tujZcqg6 IgcWOlCC08GMDdaBKqYAU5 XF4jyXpvLYB2 MICROSCOPIC DESCRIPTION h4nloGJjLRBwxTOgUTNfJL (test code = 3371) lypqPjXFRunEPtR9Rbkdpw EGxcFE7xCF1agTmxyKJylC BoSMTbMfUjc6ryy193vBSd f1stEUYIkyaouWk0hEnxO0 6wt2O9SiiuN13osVUyMTP5 TOJsYYXbmDHmECXpOSQ9YP LlyBNiC3lmROIwFO9jeqsz VCbsPOcoPARtzFQ8WUCjeN FuS8HxIDPnPOviELTuycr8 XmCkMo0dsLQixDryWFazJW JkXHBsYWluXGZzMjAgUGVy Qz5qrKMpXfifOQHkxOUxBB xwYXJ9 STATEMENT OF ADEQUACY Satisfactory (test code = 2757) Gross assessment was [facility] performed at ([facility], = 2777) Department of Pathology, [address] [place] [address], Technical component was [facility] performed at ([facility], = 2778) Department of Pathology, [address] [place] [address], Professional component [facility] was performed at ([facility], code = 2779) Department of Pathology, [address] [place] [address], [facility] HospitalCYT[facility]Y2023-[facility] 19:31:37Medical Cytology Report Case: [id number] Authorizing Provider: Marisabel Ho MD Collected: 0 12/30/2022 09:33 AM Ordering Location: [address] Received: 12/30/2022 01:05 PM Service Pathologist: Lilibeth Mello MD Specimen: Pleural, Left LEFT PLEURAL FLUID (CYTOSPINS AND CELL BLOCK):- NEGATIVE FOR MALIGNANCY - Benign and reactive mesothelial cells admixed with acute and chronic infl ammation Signing Pathologist Direct Phone Line: [phone] signed by Lilibeth Mello MD on 01/03/2023 at 7:31 [id number] y.o. F with h/o decompensated CIFUENTES cirrhosis [...] bloody fluid; prepared 4 cytospins and cell block(A2 )(collodion bag) - the cell block was fixed in formalin at 13:50 on 12/30/[address], Department of Pathology, [address] [place] [address], [facility], Department of Pathology, [address] [place] [address], [facility]mcamdOjai [facility], Department of Pathology, [address] [place] [address], IKBIIUWFHJGLB METABOLIC PANEL 2023-01-03 07:49:18 Test Item Value Reference Range Interpretation [...] 1092) DATA TO CALCULA TE ESTIMATED GFR. Neurology Stroke Physician ID - DBOperator ID - MARIOSpecimen slightly afiywwkDMWBCKGHT6219-97-35 07:48:02 Test Item Value Reference Range Interpretation Comments MAGNESIUM (BEAKER) (test code = 1.7 mg/dL 1.6-2.6 627) Neurology Stroke Physician ID - DBOperator ID - MARIOCOMPREHENSIVE METABOLIC [id number] 06:48:02 Test Item Value Reference Range Interpretation [...] 1092) DATA TO CALCULA TE ESTIMATED GFR. Neurology Stroke Physician ID - HENRIQUE GSpecimen slightly [id number] 06:47:07 Test Item Value Reference Range Interpretation Comments MAGNESIUM (BEAKER) (test code = 1.8 mg/dL 1.6-2.6 627) Neurology Stroke Physician ID - HENRIQUE GBody fluid culture + gram [id number] 17:31:13 Test Item Value Reference Range Interpretation Comments Result (test code = 6463-4) No growth Lab Interpretation (test code = Normal 97098-8) [facility] HospitalBODY FLUID CULTURE + GRAM [id number] 17:31:13 Test Item Value Reference Range Interpretation Comments CULTURE (BEAKER) (test code = 1095) No growth BODY FLUID CULTURE + GRAM [id number] 17:31:13 Test Item Value Reference Range Interpretation Comments CULTURE (BEAKER) (test code = 1095) No growth COMPREHENSIVE METABOLIC [id number] 06:01:19 Test Item Value Reference Range Interpretation [...] 1092) DATA TO CALCULA TE ESTIMATED GFR. Neurology Stroke Physician ID - ADMINSpecimen slightly ictericCALCIUM, [id number] 05:59:45 Test Item Value Reference Range Interpretation Comments CALCIUM IONIZED (BEAKER) (test 1.04 mmol/L 1.12-1.27 L code = 698) PH, BLOOD (BEAKER) (test code = 7.44 1810) [id number] 05:59:10 Test Item Value Reference Range Interpretation Comments MAGNESIUM (BEAKER) (test code = 1.9 mg/dL 1.6-2.6 627) Neurology Stroke Physician ID - VBPSCDCMSUBMFQV4522-57-24 05:59:10 Test Item Value Reference Range Interpretation Comments PHOSPHORUS (BEAKER) (test code = 2.6 mg/dL 2.3-4.7 604) Neurology Stroke Physician ID - ADMINPROTHROMBIN TIME/[id number] 05:38:46 Test Item Value Reference Range Interpretation [...] mechanical heart valves.CBC W/PLT COUNT & AUTO [id number] 05:34:48 Test Item Value Reference Range Interpretation [...] Echo W/Doppler(CW/PW/Color)2022-12-31 17:29:02Ejection FractionSLEH ECHO HEARTLAB [facility]CK[facility] PATTERN 2022-12-31 12:46:54 Test Item Value Reference Range Interpretation Comments EMORY TITER (BEAKER) (test code = :160 1541) EMORY PATTERN (BEAKER) (test code = Homogeneous 1781) ANTI-NUCLEAR ANTIBODY (EMORY)2022-12-31 12:46:31 Test Item Value Reference Range Interpretation Comments ANTI-NUCLEAR ANTIBODY (EMORY) (BEAKER) Positive Negative A (test code = 418) Test performed by IFA method.MISCELLANEOUS LAB [id number] 09:11:47 Test Item Value Reference Range Interpretation Comments SCAN RESULT (test code = SEE SCANNED RESULTS 4656913) Protein, Total, Peritoneal [id number] 08:59:02PROTEIN, TOTAL, PERITONEAL FLUID12/31/2022 8:59 AM Teez.mobi [facility] HospitalAlbumin, body [id number] 08:58:38Albumin, Fluid12/31/2022 8:58 AM CDMYMICHIGAN MED[facility] GLADWIN LABORATORYReference Range: No Normals Assay performance has not been validated for this type of specimen.[facility] HospitalProtein, Total, Pleural [id number] 08:56:30PROTEIN, TOTAL, PLEURAL FLUID12/31/2022 8:56 AM CoinTSecure [employer] [facility] HospitalLactate Dehydrogenase (LD), Pleural [id number] 08:56:06Lactate Dehydrogenase (LD), Pleural Fluid12/31/2022 8:56 AM CDTQUEST DIAGNOSTIC [facility] HospitalGlucose Pleural [id number] 08:55:45Glucose, Pleural Fluid 12/31/2022 8:55 AM CDTQUEST DIAGNOSTIC [facility] Albumin Pleural [id number] 08:54:47Albumin, Pleural Fluid12/31/2022 8:54 AM CDTQUEST DIAGNOSTIC [facility] HospitalMISCELLANEOUS LAB [id number] 08:54:04 Test Item Value Reference Range Interpretation Comments SCAN RESULT (test code = SEE SCANNED RESULTS 3208509) Bilirubin, Rgofx5206-01-26 08:54:04Scan Tivfun9312/31/2022 8:54 AM [facility]ASE[facility] HospitalCOMPREHENSIVE METABOLIC [id number] 05:33:20 Test Item Value Reference Range Interpretation [...] 1092) DATA TO CALCULA TE ESTIMATED GFR. Neurology Stroke Physician ID - jose goSpecjacobn slightly [id number] 05:31:31 Test Item Value Reference Range Interpretation Comments MAGNESIUM (BEAKER) (test code = 1.8 mg/dL 1.6-2.6 627) Neurology Stroke Physician ID - mniohHGDDOYMHMR0228-29-77 05:31:31 Test Item Value Reference Range Interpretation Comments PHOSPHORUS (BEAKER) (test code = 2.4 mg/dL 2.3-4.7 604) Neurology Stroke Physician ID - jose goPROTHROMBIN TIME/[id number] 05:24:04 Test Item Value Reference Range Interpretation [...] mechanical heart valves.CBC W/PLT COUNT & AUTO [id number] 05:23:22 Test Item Value Reference Range Interpretation [...] PERCENT (BEAKER) (test code = 2801) CALCIUM, [id number] 05:07:52 Test Item Value Reference Range Interpretation Comments CALCIUM IONIZED (BEAKER) (test 1.05 mmol/L 1.12-1.27 L code = 698) PH, BLOOD (BEAKER) (test code = 7.45 1810) Amylase Peritoneal [id number] 18:35:20 Test Item Value Reference Range Interpretation [...] specimen).This test has been modified from the aircraft mechanic armament's instructions and its performance characteristics were determined by [facility]. The laboratory is regulated under CLIA as qualified to perform high-complexity testing. This test has not been cleared or approved by the U.S. Food and Drug Administration. The reference intervals and other method performance specifications are unavailable for amylase in peritoneal fluid. Comparison of this result with the blood amylase is recommended. [facility] HospitalAMYLASE PERITONEAL [id number] 18:35:20 Test Item Value Reference Range Interpretation Comments AMYLASE, PERITONEAL FLUID (BEAKER) 17 (test code = 5931959) Amylase activity in peritoneal fluids of non-pancreatic origin is often less than or equal to the amylase activity in blood, whereas elevated amylase activity has been reported in fluid of pancreatic origin (five-folds or higher compared to contemporaneously collected blood specimen).This test has been modified from the aircraft mechanic armament's instructions and its performance characteristics were determined by [facility]. The laboratory is regulated under CLIA as qualified to perform high-complexity testing. This test has not been cleared or approved by the U.S. Food and Drug Administration. The reference intervals and other method performance specifications are unavailable for amylase in peritoneal fluid. Comparison of this result with the blood amylase is recommended.[id number] 18:13:56 Test Item Value Reference Range Interpretation Comments FERRITIN (BEAKER) (test code = 273.41 ng/mL 361) Neurology Stroke Physician ID - ADMINHEPATITIS B SURFACE [id number] 17:41:49 Test Item Value Reference Range Interpretation Comments HEPATITIS B SURFACE ANTIBODY < mIU/mL <8.0 (BEAKER) (test code = 647) Neurology Stroke Physician ID - ADMINHEPATITIS A ANTIBODY, [id number] 17:41:49 Test Item Value Reference Range Interpretation Comments HEPATITIS A IGG ANTIBODY (BEAKER) Reactive Nonreactive A (test code = 2797) Neurology Stroke Physician ID - ADMINALPHA FETOPROTEIN (AFP), TUMOR [id number] 17:40:44 Test Item Value Reference Range Interpretation Comments ALPHA-FETOPROTEIN (BEAKER) (test 3.2 ng/mL <10.0 code = 1094) Neurology Stroke Physician ID - ADMINHEPATITIS B CORE ANTIBODY, [id number] 17:40:44 Test Item Value Reference Range Interpretation Comments HEPATITIS B CORE TOTAL ANTIBODY Nonreactive Nonreactive (BEAKER) (test code = 497) Neurology Stroke Physician ID - ADMINHEPATITIS B SURFACE [id number] 17:40:43 Test Item Value Reference Range Interpretation Comments HEPATITIS B SURFACE ANTIGEN (2) Nonreactive Nonreactive (BEAKER) (test code = 2585) Specimen is considered negative for HBsAg.HEPATITIS C [id number] 17:39:02 Test Item Value Reference Range Interpretation Comments HEPATITIS C ANTIBODY (BEAKER) Nonreactive Nonreactive (test code = 367) Neurology Stroke Physician ID - ADMINIRON, TIBC, % SAT. (WITHOUT FERRITIN)2022-12-30 17:19:01 Test Item Value Reference Range Interpretation Comments IRON (BEAKER) (test code = 547) 81.0 ug/dL 40.0-160.0 TOTAL IRON BINDING CAPACITY 108 ug/dL 250-450 L (BEAKER) (test code = 769) IRON % SATURATION (2) (BEAKER) 75 % 20-55 H (test code = 2590) Neurology Stroke Physician ID - ADMINCOMPREHENSIVE METABOLIC [id number] 16:25:30 Test Item Value Reference Range Interpretation [...] 1092) DATA TO CALCULA TE ESTIMATED GFR. Neurology Stroke Physician ID - ADMINSpecimen moderately ictericLACTATE DEHYDROGENASE (LDH) 2022-12-30 16:17:54 Test Item Value Reference Range Interpretation Comments LACTATE DEHYDROGENASE (BEAKER) (test 246 U/L 125-220 H code = 635) Neurology Stroke Physician ID - GPYEQPTCGEJEFX9640-08-48 16:17:53 Test Item Value Reference Range Interpretation Comments MAGNESIUM (BEAKER) (test code = 1.8 mg/dL 1.6-2.6 627) Neurology Stroke Physician ID - TEKUOIWGVCWBVHW5370-64-13 16:17:53 Test Item Value Reference Range Interpretation Comments PHOSPHORUS (BEAKER) (test code = 2.7 mg/dL 2.3-4.7 604) Neurology Stroke Physician ID - NAFJVOCIBX-7-RHKGVYRGURE7564-04-20 16:17:14 Test Item Value Reference Range Interpretation Comments ALPHA-1 ANTITRYPSIN (BEAKER) 61.00 mg/dL 90.00-200.00 L (test code = 502) Neurology Stroke Physician ID - ADMINPROTHROMBIN TIME/[id number] 16:09:26 Test Item Value Reference Range Interpretation [...] mechanical heart valves.CBC W/PLT COUNT & AUTO [id number] 16:06:15 Test Item Value Reference Range Interpretation [...] PERCENT (BEAKER) (test code = 2801) CALCIUM, [id number] 16:03:36 Test Item Value Reference Range Interpretation Comments CALCIUM IONIZED (BEAKER) (test 1.07 mmol/L 1.12-1.27 L code = 698) PH, BLOOD (BEAKER) (test code = 7.38 1810) RAD, CHEST, 1 VIEW, NON [id number] 15:04:00SAURABH NICOLE MD Reason for exam:->post left thoracentesis R/O pneumothoraxShould this beperformed at the bedside?->Yes [facility] : 1965 Sex: [...] Enriquez Verified Date/Time: 12/30/2022 15:04:41 Reading Location: [facility] Radiology Reading Room U/S, [id number] 14:59:00SAURABH NICOLE MD Labs to be ordered:->Body Fluid Culture (w/Gram Stain, C\\T\\S) Labs to be ordered:->Cell Count Reason for exam:->abdominal pain, cirrhosis Should this be performed at the bedside?->No [facility] : 1965 Sex: UFINAL REPORT Ultrasound guided paracentesis. Clinical History: Ascites. Sedation: None. Operations Clerk: Danuta Taylor PA-C Material Handler 1St Shift: None. Estimated Blood Loss: < 1 cc. Specimen: 2600 cc of cloudy serosanguineous fluid, samples sent to laboratory. Technique: Informed consent was obtained. The risks of pain, bleeding, infection, bowel perforation, injury to adjacent structures,and adverse medication reactions [...] was achieved with 2% lidocaine, a 5 [place] one-step catheter was advanced into the peritoneal cavity under ultrasound guidance. After completion of drainage, the catheter was removed. There was no evidence of complication. Impression:Successful ultrasound guided paracentesis. Signed: [facility] Verified Date/Time: 12/30/2022 14:59:31 Reading Location: [address] Ultrasound Reading Room Body fluid cell count with [id number] 14:42:21 Test Item Value Reference Range Interpretation Comments Appearance (test code Hazy Clear A = 9335-1) Color (test code = [place] Colorless, Straw A 6824-7) RBCs (test code = 27116 See_Comment H [Automate d 94112-8) message] The system which generated this result [...] See_Comment H [Automat ed (test code = 36900-9) messag e] The system which generated this result transmit joanna reference range : <=5 /cu mm. The reference range was not used to interpret this result as normal/abnormal . Adjusted lining 63 See_Comment H [Automated cells/Others (test message] The code = 79019-5) system which generated this result transmit joanna reference range : <=1 /cu mm. The reference range was not used to interpret this result as normal/abnormal . % Segs (test code = 29 % 50297-3) % Lymphs (test code = 39 % 83729-3) % Monos (test code = 31 % 20997-4) % Eos (test code = 1 % 29064-4) % Baso (test code = 0 % 67918-8) Container Body Fluid Sterile Vial (test code = 2873) Lab Interpretation Abnormal (test code = 31511-7) [facility] [id number] 14:42:21 Test Item Value Reference Range Interpretation Comments APPEARANCE FLUID (BEAKER) (test Hazy Clear A code = 510) COLOR FLUID (BEAKER) (test code [place] Colorless, Straw A = 511) RBC FLUID (BEAKER) (test code = 06549 /cu mm <=1 H 513) TOTAL NUCLEATED [...] Sterile Vial (test code = 2873) CT, [id number] 12:35:00SAURABH NICOLE MD Unlisted Reason for Exam - Click Yes and Enter Reason Below->NoProtocol Please Specify:->Standard ProtocolWill this procedure require oral contrast?->No [facility] : 1965 Sex: [...] 12:35 PM BODY FLUID CELL COUNT WITH [id number] 11:08:18 Test Item Value Reference Range Interpretation Comments APPEARANCE FLUID (BEAKER) (test Cloudy Clear A code = 510) COLOR FLUID (BEAKER) (test code Red Colorless, Straw A = 511) RBC FLUID (BEAKER) (test code = 67855 /cu mm <=1 H 513) TOTAL NUCLEATED [...] Vial (test code = 2873) Protein, random [id number] 22:24:47 Test Item Value Reference Range Interpretation Comments Protein, Urine (test code 47 mg/dL 0-14 H = 2888-6) EDILBERTO (test code = EDILBERTO) Neurology Stroke Physician ID - ADMIN Lab Interpretation (test Abnormal code = 22029-2) [facility] [id number] 22:24:47 Test Item Value Reference Range Interpretation Comments PROTEIN, URINE (BEAKER) (test code = 47 mg/dL 0-14 H 1569) Neurology Stroke Physician ID - ADMINCreatinine, random [id number] 22:24:46 Test Item Value Reference Range Interpretation Comments Creatinine, Ur 176.5 mg/dL (test code = 2161-8) EDILBERTO (test code = Reference Range: No EDILBERTO) NormalsOperator ID - ADMIN [facility]CREATININE, RANDOM [id number] 22:24:46 Test Item Value Reference Range Interpretation Comments CREATININE URINE (BEAKER) (test 176.5 mg/dL code = 375) Reference Range: No NormalsOperator ID - ADMINUrinalysis w/Ahsdbhlqpno9764-22-21 22:11:30 Test Item Value Reference Range Interpretation Comments Color, UA (test code Yellow = 5778-6) Clarity, UA (test Hazy code = 5767-9) Specific [place], UA 1.046 1.001-1.035 H (test code = 5811-5) pH, UA (test code = 6.5 5.0-8.0 5803-2) Protein, UA (test 70 mg/dL Negative A code = 45997-6) Glucose, UA (test Negative Negative code = 365) Ketones, UA (test Negative Negative code = 2514-8) Bilirubin, UA (test Negative Negative code = 19160-2) Blood, UA (test code Large Negative A = 05015-6) Nitrite, UA (test Negative Negative code = 5802-4) Leukocytes, UA (test Negative Negative code = 5799-2) Urobilinogen, UA 0.2 0.2-1.0 (test code = 39250-1) RBC, UA (test code = 138 See_Comment [Autom ated 83080-2) message] The system which generated this result [...] . Bacteria, UA (test Rare code = 84323-1) Mucus (test code = Few 8247-9) Squam Epithel, UA 3 See_Comment [Automate d (test code = 64912-0) messag e] The system which generated this result transmit joanna reference range : /HPF. The reference range was not used to interpret this result as normal/abnormal . Specimen Source (test Urine, Clean code = 2795) Catch EDILBERTO (test code = EDILBERTO) Neurology Stroke Physician ID - [auto]Neurology Stroke Physician ID - tech Lab Interpretation Abnormal (test code = 71395-1) [facility]URINALYSIS W/ [id number] 22:11:30 Test Item Value Reference Range Interpretation [...] (test code Urine, Clean Catch = 2795) Neurology Stroke Physician ID - [auto]Neurology Stroke Physician ID - enmvSRIEONSGEGDXS1600-60-37 17:38:31 Test Item Value Reference Range Interpretation Comments PROCALCITONIN (BEAKER) (test code = < ng/mL <0.05 3036) SEPSIS RISK (ng/mL)Low: 0.05-0.50Intermediate: 0.51-2.00High: >=2.01LACTIC ACID, [id number] 17:22:42 Test Item Value Reference Range Interpretation Comments LACTATE BLOOD VENOUS 2.07 mmol/L 0.50-2.00 H Specime n slightly (2) (BEAKER) (test hemolyzed code = 2872) Neurology Stroke Physician ID - BSSpecimen slightly ictericRAD, CHEST, 1 VIEW, NON [id number] 16:10:00SAURABH NICOLE MD Reason for exam:->evaluate left pleural effusionShould this be performedat the bedside?->Yes [facility] : 1965 Sex: [...] mild pulmonary vascular congestion. Signed: Adilia Polanco [facility] Verified Date/Time: 12/29/2022 16:10:06 B-TYPE NATRIURETIC FACTOR (BNP)2022-12-29 15:33:37 Test Item Value Reference Range Interpretation Comments B-TYPE NATRIURETIC PEPTIDE (BEAKER) 31 pg/mL 0-100 (test code = 700) Neurology Stroke Physician ID - BSCOMPREHENSIVE METABOLIC [id number] 14:18:45 Test Item Value Reference Range Interpretation [...] not appl icable for dialysis patien ts Neurology Stroke Physician ID - ADMINSpecimen slightly ictericPROTHROMBIN TIME/[id number] 13:44:11 Test Item Value Reference Range Interpretation Comments PROTIME (BEAKER) (test code = 20.8 seconds 11.9-14.2 H 759) INR (BEAKER) (test code = 370) 1.84 <=5.90 RECOMMENDED COUMADIN/WARFARIN INR THERAPY RANGESSTANDARD DOSE: 2.0 - 3.0 Includes: PROPHYLAXIS for venous thrombosis, systemic embolization; TREATMENT for venous thrombosis and/or pulmonary embolus.HIGH RISK: Target INR is 2.5-3.5 for patients with mechanical heart valves.[id number] 13:43:55 Test Item Value Reference Range Interpretation Comments MAGNESIUM (BEAKER) (test code = 1.8 mg/dL 1.6-2.6 627) Neurology Stroke Physician ID - ADMINCBC W/PLT COUNT & AUTO AIQSYZOGCKQA7823-27-30 13:21:51 Test Item Value Reference Range Interpretation [...] PERCENT (BEAKER) (test code = 2801) Prepare [id number] 23:54:00 Test Item Value Reference Range Interpretation Comments Unit ABO (test code = 6980220) A Pos UNIT NUMBER (test code = [id number] 934-0) Status (test code = 9902469) TX_TIMEINCHART Blood Bank Product (test code FFP = 2263) PRODUCT CODE (test code = X5580L72 933-2) [facility] HospitalPrepare [id number] 23:54:00 Test Item Value Reference Range Interpretation Comments Unit ABO (test code = 8584343) A Pos UNIT NUMBER (test code = [id number] 934-0) Status (test code = 7367204) TX_TIMEINCHART Blood Bank Product (test code FFP = 2263) PRODUCT CODE (test code = F9332C95 933-2) [facility] [id number] 23:54:00 Test Item Value Reference Range Interpretation Comments Unit ABO (test code = 4455889) A Pos UNIT NUMBER (test code = [id number] 934-0) Status (test code = 3765977) TX_TIMEINCHART Blood Bank Product (test code FFP = 2263) PRODUCT CODE (test code = S1345P52 933-2) [facility] HospitalFin Needle Aspirate by Qldlvkhuf5639-58-17 09:58:30 Test Item Value Reference Range Interpretation Comments Case Report (test code Medical Cytology = 104) Report Case: [id number] Authorizing Provider: Arcenio Lazo Collected: 11/30/2022 08:48 AM Ordering Location: [address] Received: 11/30/2022 03:09 PM Service Pathologist: Simon Corona MD Specimen: Lymph Node, liver, marguerite-portal lymph node biopsy via FNA DIAGNOSIS (test code = o3vplHInPEPwi6vwQCVqqO 3220) FuZzEwMzNcZnRuYmpcdWMx IHtccnRmMVxlcGljMTAyMD TbLU4kyGbzqPy6dJsfPDYg zwB4jGBiEXkxw8qeOFH4z2 zmqbzcEKQzSGxhYb3ziXCn iRfwYmHfQDByJQi5gS56NV CjmG4awAXmLVh4LDTehJBs hiKfWbFoWMMkzBFfjQU8YM HyOD4ueuobHRqbEFosYCCr maX4LJOagKSvH0RwPEVlBR 2lktcdGVF1RQsbLYOhSPF2 QlFxSWZpl8Lbjhs1EkLknV FyZFxwbGFpblxmczIwIExZ KFDLOO7AFIOfMHmHDyGDQL IQRppyTY0JRYCBYAKUGC9M W1rlFawNHYHYPHIzL8pPT8 PEJC8PJBODRQKAYEcQGXUD V5HCTRtxgDPrHEVwWR5rSe YTQWZNPvNiXd7IFW6FEWvZ KfKZGUHOJNiOHv8kgVQwJR QmHF1zE5WBMmHmOEwSFZoM ICArWQjJE4IGZwapOYX0t0 xydGYxXHNzdGUxODAwMFxh bnNpXGRlZmxhbmcxMDMzXG T0jkDfDCJdMQqvUASxRIdb Gn8wlIEeyZivSaDvLYJgy2 ydzkXBiipdaXs8h0qsMKVu XfU3mGCaBSbqF4kyafXwvY QsPEKhDYk9qS50SPNxeY2q yZMfTBeqhtKeKkM2ERplNL EkRgB2BYMsjHUuCYNtE9sr ZWQwXGdyZWVuMFxibHVlMC A1bNtau2D1xWAmsDIhxPsl DmYbRjRaMoZKw6MpIKy3rU nkH5NoZDHcWbZ0cCOhAQOm HWjrPOXqQPPrryV2oI30FY hufwH0tRFpv9Saz82cg460 iL8acJEbSGX8KOBiSQBehA LjOXOzIGZ8YOGcbVAaC8rp RNDfEI6fnfmoBVqnRFuhBD LjbNM3KZCgcTGgE8KzKYHz NMiyVUHppcp9OsVpPe6uuS UsiOivMDfrk8urz9copDJg Gln4UKCnYvUjJnztSGrhz2 Aka6puYCPeke9vTZJ1kJNs kRiwy8A3wWOmZHIjcHOqRU GyUP1miUInFQOqcX5tfoii XHBnYnJkcmhlYWRccGdicm OsJf5gtSkcZJV8NIwvR1sx eI2kUlH9BPgzA7lxiD3mWT m1PJjgUAEozTS4ioI1NAFx pVOdY4JmmL0mDPZqMG3mec w4q4erBHX8HOoePVZiUjT0 buQ1HPLpxBOqQNShpUccON uvx229MUX8ThBbVHIsl4Xt N8UlhUlyK67qoGhpN55zIG XntGtsxX4vpEnczO7jUdIk ZmJwPEylpJseQZ5tEIFyK8 xtkZVwNFXbXEZtQ3dcUuLr qY7nhOgxZKxjuhQrGMTmFo h3JJIgbSUyONVoLoa9FUEg AMIgU03gohqbAZY0lY1fv5 qyf5FdGMpkRQP9BRHyq23c ZAbdreU9LRapXs41BQvaME U2YQneDKO8gC== CPT Code(s) (test code o3ktdAVoDOEtaTEpEPQtGH = 3357) tkpoJbUSXpnVLaV4Vtgpyr OOimVM7bPM7xxUopkVVmuT QoOECrYpDwd0nni909jQOb c6nyWRUDxnkubOr9cReuD6 4ai0V6BnddK76cnBMjWIH8 BXPuWQBrjRHnYVKrNQY2SZ SbaFIuI6elEYRdTL7cgkjc FUquGMpiGVUrxON4TDCzrB PpS4QjWNBfQLxeKZBzjxd9 HdXiDc0fvQVvcEvuGVodDD JkXHBsYWluXGZzMjAgODgx IzNdZXj1OyW1YVEukf1= CLINICAL DATA (test u0qwyYQxEUQhrHNsTYMwRA code = 9935) ustyFiNKNxsERwN8Xehndn NMgwFQ9nZA6pzQehpIVovU VlDYFiXsZgp3hyj166gLNm x9dxKVCVxrgdxIe1hFvdH2 2vf8D2GjykS83yiQZtADW0 GUExFLNtsKMwLOHnHPM6FF DpxXFxN3mxMNIhUB9jnuja ZIxfEDspMHNibHK5HOSpbF AwX9DdZRAxMNtiSQTqxwj7 BoOxXm4eoYMkpLctLDqvLN JkXHBsYWluXGZzMjAgNTgg yU0aRha+Rlx+w8u6mINRQA ZVDNEqfjWeb9Cmekkcv2ke MVEzYAWyorZfCYO2tcNHG9 vwi9o0tEQ2tQDqwvQqXUHs YNMsjI4hYB1fBBDGTVNnNV luIHggNCBkYXlzIGFuZCB3 TNMrLt43wgVmuP8ajXH0XR Cwm2cblRwiSGUjFQFwp70n ITUsDFAvxqAfjO6dYWI5v5 HjmNxdE1Lym1mvKW3juW0h lMQspVTluAMjp80omX5iR7 kgQsedoCb8apX5gtLmf5Qp rpQfRTI9hnGZN9jOWrJfn9 FfJXhTQm4ziwzvNTG3 SPECIMEN SOURCE (test v9snkUUbUYMgtORhWXWgAP code = 3377) nudaAuAWUsxWEmW8Kxhdkr FYbyVH4uMZ9efVpgvROsyS SlECCoEtOft4yls851eFRu g7obFPLUpdeeaLn7dSjdU3 0qj3N3EggzJ00udSBcPTW2 XVElSUHtgXXqIMDdQIW3QE AvxMTvT5yyMJSrJC1citqa VCnxNRieUBDhcJV7IKRxpG UuA4CaTXWaHBqhPETcmju2 IfPsEk5okPPgaTyaSIhfFO JkXHBsYWluXGZzMjAgTFlN HVesBu6PRDoiVDfKFBCoRI OEDopvQZ4CUXMKJLNEX5XC WSBGTkFccGFyfQ== GROSS DESCRIPTION (test n5dzyVXsNMAplXFYOJUiQN code = [id number]) TcIR5meJaomIz9wHtlCCPv yuY7dXOyPIjso3xeQAN7u9 ppjpQEJkjfPSAqJZ8jWMkd EUMbQA5iOmPsHAKqHjPqEL BhcGVydzEyMjQwXHBhcGVy fVL2LJHwGP1xdqwiWPfcDP wpSABdnpI4PAKiuSDfZ3Vd BXHzVH9nozatXUJ8GXZGAj cnHi9ofEZqcWjpHyXcTiNg YXJzZXQwXGZuaWwgQXJpYW f2eV7BKdrdJMU7ZUONCbge MtblaEqvp2TowYRlAGTyTE xcaWQgNTEwMDAgXFxkYiBP YvItKeO5NOEfMtR4IdF7CY i6DHPNITRmLDGtNrKcNTA7 AKj5KUAuDS1cWZpilSUsJM mvMqkmRHgcQ947KBhgCBCo V9GxT6AvPUfeFvArLEroCB LhLNPcBDjlZIIfW0RZXUKl LRHpTVK1LQGxZIu0NQkkA6 IQDDBjIHYqXkpzLuW2PuX1 NGb7ZICVAz1vMym7UTu1WJ M8FIL3AMy8IHkfvOZwJWwh u5DmGdYhLUImDFmlrnR6DF YufcDnSYmppAtpyI5gOwAm EjFTRaWHxX4okTDJe1MhOE YnhkSDSlmhBDLzHW5BAFAi ROhdXQBfAwAkkLHvJ4ncYG HqH85ln6FGl0HvWQ6VWZw9 ywHlvauzwI3gLCRjrcUmWZ pcZnMyMCBSZWNlaXZlZCAx VQHchIBnrW9xQ1k8b0FxM3 ggcmVkOyBwcmVwYXJlZCA0 GXP6qF6foNyowyxqF0HdsD GkuT7bdaGvLYNoFDwoQXqq LQUvj2YdLCQmLCFyMANhzx Mrh7WaGWgskjAjvYSlLUzl NSBvbiAzLzIxLzIwMjMpXH BhciANClxzYTMwXGVwaWNY f5SiHORVQlrxsFnaUmAiwB AsEjO7TLWonFJoTRL1AP0g cKeyVEMaM4HuP4AnglJ2TB RrpgTKRpjbBIJkWN8QSZUk MjIgDQp9 MICROSCOPIC DESCRIPTION a1tfmTLrSTBrcDJpMPZaLD (test code = 3371) rmylPoVDKjuFVaT4Rtchqh JCyyOW8dBB3mxUkobIRdoI PmCBUrBaJza0mvc349dFTi z6beZDRVvbrczPu8fZjoQ1 8vn5E6EbhzJ96jmBJjSIH1 SDStWLVhtAFnZLIfITP9EL PsbSIbH7ccUUBnLA5vsjqy FKpfQJafGOByqBR0YPJmhV QkJ7MbOIKaMZsbCKKphbh9 ZqCjHb0xjRGdsHpzGRfeGL JkXHBsYWluXGZzMjAgUGVy Se7wdYDrKgwnCGYvyCVtLN xwYXJ9 Gross assessment was [facility] performed at ([facility], = 2777) Department of Pathology, [address] [place] [address] 118[address], Technical component was [facility] performed at ([facility], = 2778) Department of Pathology, [address] [place] [address] 533[address], Professional component [facility] was performed at ([facility], code = 2779) Department of Pathology, [address] [place] [address], [facility] by Jkqekaurx5562-45-20 09:58:30 Test Item Value Reference Range Interpretation Comments Case Report (test code Medical Cytology = 104) Report Case: [id number] Authorizing Provider: Arcenio Laoz Collected: 11/30/2022 08:48 AM Ordering Location: [address] Received: 11/30/2022 03:09 PM Service Pathologist: Simon Corona MD Specimen: Lymph Node, liver, marguerite-portal lymph node biopsy via FNA DIAGNOSIS (test code = z9iuqKMnEQBtb7vwUGMjyF 3220) FuZzEwMzNcZnRuYmpcdWMx IHtccnRmMVxlcGljMTAyMD FcDQ2ihTdwqIc1cSolOFWm ekS2wIFsNKpfv9hqVVJ0e5 luoxduGFSaSIyyWz2ecQIi nEbkYnJnMXLeNRn2oH03PF ZqaI2bnPBgDZx8HDBodJMt ryFzPkXqZLGarBCktKW0IC EjFK2alenmXIynLRruMRIv scO1DBDmoUKpS0OgNSJbIO 8npojeNOG3VFxsTMDaJFN3 JuArIUQnq4Mmpqe4ViOgcM FyZFxwbGFpblxmczIwIExZ NKFMHE3CKEBxIMjLJtEBZI ZIGbvsXY2VMLSNZEXVJE7W Q9arLzeKABTAGFDpG9dKU6 HCVI8BPXKFVXHPCFfMHMHS W7DIBHjkaBJvCADaWL7lMe INOKMDJkWvDt4DFZ4FAXwN JoNDNVFORTmFEs9bvALlHZ ZqSE6vN3CYPvQiNKtFOPyG MZCsGKjQR1ESMvmuSKT2w3 xydGYxXHNzdGUxODAwMFxh bnNpXGRlZmxhbmcxMDMzXG M7exXoZLVvZIdwKPGyJFyo Wm3kxMAtlGccKnHtLMBhy5 lzabKIvclesBw4w7onSXCk JwI9vNJfSRztB0dyvyYxiV LxMDGsLFt5zS72ETAqeJ3j bXNfKJqcdnUfSjA3WUkjNL LjXbS7JCWlhPTwSVRcJ5lw ZWQwXGdyZWVuMFxibHVlMC M2aLfzy4O2pXSvgONweQsq FqSiMjQeBvFEi2BbNNo2mL mxQ6PeVTKuNjX3tPHvZNSz YLmgAFLvQSXbfqX0bH40ID tutbS3hUDuw6Bjg24zh193 oT5pdMKpKKY0EXGsSXLwjS LyYIOkZWI6OAFpfNLyD2wu EHIjXB2fhkxgRGuiJEtrDL UozKP2JVXuzFKhK5MuIBQg JRceXDDtfct3ZgJgIc6xjX OatSrxCJzjq0umd8onuNHi Oky7ZYFnZyVsNrufAOrik8 Szw0xqJLRvgp3oYFI1aZLn mLeda6D2uMOlEIRlzAWwBF DcMC5odISaPHRsvC3ixteb XHBnYnJkcmhlYWRccGdicm CdUe4qwJchUDT2GHpyI0um cN2fOnI8WJnaF6rofV8vBM c1XVnuENZkqHJ5huT8OPYm hTAtZ3TqlA5iKOKtAV0obm x0r5jhFJV2NTslPHVfGnL7 rfP9DTXkgINiQNMelQheXP mwe827KIL9TlMqDOHzn8Kn G1KgxWvrD01yqHbsZ15tJW XraAqbgK3sxNlfrP9eTdQj BsDbFHyxqJavMZ5yLZBgT7 skgGPcEZJsCRDlK8puIaAl yT6tcGkuXDpajrMgYIKwKl e1JYVrdLYrOLTzAqx1GPFi ZPWcB10qxkdzHXH7nG0fe9 fja0FrVKijPXX7AYSjw67n CMoushR3EWfpDo75MMmxIM J2PJitMRS1zR== CPT Code(s) (test code m0thdPWrJUSihENlMALvXK = 3358) dehoQaEFNfnRRiV2Nkvafw LBsnMZ0lNY7nkShkgVGfdR SkSVVwBiYmd8jxl454fVSj l6kuCIKOnqlpfBa4aJdaZ0 2xv1R7MurtO72avMIpHJU9 LYNfZEEdcSWdUVXkCWN0OE SpzGFiD5lsBARoZK5vsqjb MUpsGFpkQDTgmVQ6QKJibZ KkQ5WiNFKpTKsfMDZjqgb8 DsRoHz5doBSvsXixOKvpLE JkXHBsYWluXGZzMjAgODgx JeExBVu8TtQ7BTRbkx0= CLINICAL DATA (test r6lksERvQFLfmUJnAACtDA code = 3353) ygylRzOHMxuZXjJ9Fmmcck NYjuAH5yUV1eeEeajZFreF IjULKeIlMpg8imc021yENd j2goZJNVynpptNm0oVmzT8 6lz4M6AdniV48bzHTaNEZ0 MNQdYCSwhNBvFUXqYWZ7WE QbhULuV4opYDBaLR4ugenh FYwxQPnyQJCyaKE9SZTkfX HmA5OfCOBkIHwbRAAyoir1 MlPwQd1wtHWoxYzsYLzuPS JkXHBsYWluXGZzMjAgNTgg eA5nOuq+Rlx+d1z7hIWDSC ERATXgrbMoh0Wxwyfly5vw OPEoCXAibfRfCAK7kwCCG1 fnn0o6fDE7yMTdklHpSSIg PUQvxX2yZA1uJANLNXJrZL luIHggNCBkYXlzIGFuZCB3 ZNNsPv58dxLhtV9jlZH6SL Qpd2jjmNlaFPNkGYAua61g XDZpYTQnqwEdfG1yUEB9w9 YceSduY5Xzr4kmMM9kvU5l nTHuyFLjsOHif36bcI2eM9 hkTsspvRb3uxP7dgDmj7Xr aqWlVMJ6ckJFO3uQHnRut4 OgWOoYLp7nwggpNWB0 SPECIMEN SOURCE (test i7qbgSUsWTBcgKBzLGLyHY code = 3377) ualcZuIPVrqNLbF8Mjjuyi WXxwDH3oZX6xfIytnHEtlY AtSTGzPhUje0aya462qKIw l0ubGEMBtzzmlSx0vAzbL5 6df8C3DfrzH95jrUAaGFO9 NGQhSVMwwQOhLLWjKIZ1EP LckPMzW2fjLCFeED1sgqjk VZhhJJeuPJTqbMY0WUPzsR CzP0WfWKYnKChfPAPyege0 KqLeDe4mdKUnwObnLWjzPK JkXHBsYWluXGZzMjAgTFlN UUlsKv8KPOxfNOuLSTMpYZ UUEkoqFH0FJOSULMBIQ6GS WSBGTkFccGFyfQ== GROSS DESCRIPTION (test x3njeYAeYNKxjTDWEXVzQE code = [id number]) FlLG6isMvofCp2lPbrDOGl vjG4xMFxZRtvt9ciDCN5z1 fwkvCISkhyDZJhYI6wFJic OGNmTR4oCeAnVNOwAeIdOW BhcGVydzEyMjQwXHBhcGVy yRY1CDHeVS0uxfctLOesUW euPCEjmnU8HHThfSEqZ3Sp WNJtSQ6ujitzSMM5XOZWKo xpAg6toUOmqTzdPhJhXuWs YXJzZXQwXGZuaWwgQXJpYW s7tI2WUuurKKD9ZRIWGrem ItbcxIwzj0MwuZUkQTYyLU xcaWQgNTEwMDAgXFxkYiBP WnIwBvC6KYEdBwN8CzJ7AR c8KNSXDEBcJNBgUtEjQSV1 UKc9ZETxGO2lRLfyrHJfSO wlYdgfEQevZ740RUswZDPj Q8ErM8IkXHuuFwFbQBlfAL RdAJKaFVteCTJuK9YIQSVs YRJrPQB5XRJrNEe5KYehQ0 DELTFeQPLbXimwLrB6QrG9 GAt7ICHRYg6lUqn3ZWf4IM R6WSO9LGl6ZPcrwTHmAYea a8WhPoGbEEIhDNbbzfI3VU CboqGmWTcnfEwvoL1wQkKo JuFZUiLRiD6muJBUm0JjYP ZhhbGKWrijHLVbVM6WQWJt ODcrIFIhMlHqyBYqH0fiXR UrT48iw8ZLq5QaOS1CNRo6 sjZlcxjceX9oDYZwsjTaJA pcZnMyMCBSZWNlaXZlZCAx RPAhiERwgR5yG1t7y8RxE9 ggcmVkOyBwcmVwYXJlZCA0 FZB2sY8ivCxbiyqzK7AqrS DqfY4lyhZeLZMcRUnfPOhn YXLid2GvGBDuRLEcEBCtpa Ece5RkVDlwtzFvlYBjUQht NSBvbiAzLzIxLzIwMjMpXH BhciANClxzYTMwXGVwaWNY b6YaOTPQPkxqwPuyKfZrgI ApGvG6IGTbpQGjQJK4GA0b xYvuJBMqA3CwC7YrkhU3BX UmnuTIMsikLGOiVO5IKKYs MjIgDQp9 MICROSCOPIC DESCRIPTION g8uemNIqYNHisCIzAAXfQJ (test code = 3371) hasaYwNZOuzSLmB3Fwwoym USppWA4xRB3wjRwceUXldW VqNIBaDhOie5ntb073sJLv v7rkEPLTkwmasQm6zShvC5 2cr6Z3FcevZ21jxXTgRZE7 POZfXPJugHVhZDVkJFB1ZV JpcMCfF6eaIABrRB1mhykb OSqmOKzeLBBsjBQ4ANCcrV AuQ0SqJWMkHPirJTZhqim7 GhHkMz9xvKIroAuqYMcvXT JkXHBsYWluXGZzMjAgUGVy Ho3iaBXcXlitQRHipETeLO xwYXJ9 Gross assessment was [facility] performed at ([facility], = 2777) Department of Pathology, [address] [place] [address], Technical component was [facility] performed at ([facility], = 2778) Department of Pathology, [address] [place] [address] 149[address], Professional component [facility] was performed at ([facility], code = 2779) Department of Pathology, [address] [place] [address], [facility] by [id number] 09:58:30 Test Item Value Reference Range Interpretation Comments Case Report (test code Medical Cytology = 104) Report Case: [id number] Authorizing Provider: Arcenio Lazo Collected: 11/30/2022 08:48 AM Ordering Location: [address] Received: 11/30/2022 03:09 PM Service Pathologist: Simon Corona MD Specimen: Lymph Node, liver, marguerite-portal lymph node biopsy via FNA DIAGNOSIS (test code = [id number] 3220) FuZzEwMzNcZnRuYmpcdWMx IHtccnRmMVxlcGljMTAyMD EmYJ5emLxxlBg5sWadBIJf zwG8pGYaZLrwu5teFZK1d0 nphkzaXRDfTEzsKn2xxBQl fLiuNdEcGLMoIPu6aX74IX YmuH5veUEtLPg5WRAusQDf jaRqIgVsNDUdjGSjrJA7UH IeQM0utsnpCWfzOXljAIMa tqL1JTYkhIQhY4OvHWIhLR 7atvccRAG8RQyuBKFoRDX0 FsGnMNHpa9Aestj0RjBhrN FyZFxwbGFpblxmczIwIExZ MUDZXS4FBPQyREwVSfLHLY ZZXmkjNH8MXWYBFMMEFM9G H8qgQgeOXCHOMWHxK5iBE8 OXRC9TTKMGHSSOZMaBZHHO M6BDTMkhrNUoYMGdUT5xWh VSQBAQMgJwZo2CMD9QIIdR UfDOTZUTDZgPNu6eiPYwHE QyXV2nN8IGHvWiJSlYYNtD MCBmKAsVA9XZFlrxWHY2j8 xydGYxXHNzdGUxODAwMFxh bnNpXGRlZmxhbmcxMDMzXG R0kxXzMDJbAHhgRNAvKVno Vg2daBLtqKgnLuQxGXRos4 prjdWSlcoffIn3b5aeRDXs GtE4yLCkSGaoA9wtfxYihE QiTIWoNFr4bI84HDCruK6h xZRvUGtacmXxNnD0EPjvTJ AyOnJ2AOPtpPVhIEYpG8mm ZWQwXGdyZWVuMFxibHVlMC G9uNlbp8Q8pVVrqNLifMwz DkXwKsDePiMBa0KpIKm6oW ibO3PqUBTnEtL7rLUfRUGi LBjyWYGrVJZucuC3lY80OG qlzhX4cNNbw7Zxg98jw580 fM2mtJDcSVZ0SORbJQPgfC RuJZGzSLJ0VWQfmEHuA1ij STOeHC7jatsiQRewDLgkJT KdqLT3PFVcpYReP4CpNECu DTtdXDLtrjw8BwVxSv5clZ ZmjCgiLXhjd0lgf7furLZc Tbc0HGUtNmNaVwjqBXnta4 Hdh1oyWFVvwz2aJUM7dEVd eJbtp9P0pKZaYCYkpCCgZU BdBA2tjTUeRUJkhX7uczdj XHBnYnJkcmhlYWRccGdicm DhSu4ekXneRON7DKnfT8yt aO1lXmG6RQelN0ufbE4dLU b7CPesSOMlpPN9fgJ1NCBb gVSgL3KdsE1pQOVpZZ0oer s3k9vmMJZ2AGyuEJPcMtM5 wvX9MTJamKOgTTTsgKncRE mxv708ABH4CpOoRACva5Bi B3ZsqNamU51nxSdzY96dLP IkeSxgwH8ziAgqlN2bTxMm PwJqXJndlGwlMQ5lYZWnI0 wyrYKbFVYsHWFkH1teCdRt yN0kyFzkRLlcvcAtMFIfRc j9KSQoaALaBQRsUyo6JGWe QUVmB02kghzvIWE6gL0ie6 bdm0YbYNcjZXY8QSHvw24g VRysytJ4GHeuOs56YZetOF H8BRndNBH7qZ== CPT Code(s) (test code r0ibhHSzCRCwqJXgVBYpVK = 3357) esdwPvSXFpxDAhV4Ekasun OZmpXS2pTW3kuGouoIYfsA GiNCTjPlTql4dgn212zFGu s7kbGYULkgpffYq2qBsdT8 7yi4B4StakR01poZCpRXG3 MQJnDIJdoBSuPFAbFTS9DE ZpyIBsH7exYEBjMX4fnbxk ENccRHhxTOCqqVF0JIBnuO TlA3KfOLVxDIaqXHAjwaf7 AqPlJs1vdFOkyTtkTAnvFK JkXHBsYWluXGZzMjAgODgx JrFvLMx3QtX3VSXusq2= CLINICAL DATA (test w0nhdGUaMWGtcNJxEYItHS code = 3355) gvrzEtAGNryFJeJ7Whuxxt ZRamZM5rKX7kmLqktLCcqV TiNBUcYqBbk0vuy883yHOm x4bbBHOGynmfvQy3dIimH5 6va2Y8VuavA87qoPYtMTK5 YFIqBFJiiGUqAGZnTHS2OA ZhhXTeU5brSUHmZA2wlazk FUreWFoxLBBwyND7ZONmkL GxL2JdGEEcGGrgOIVncov1 FxDwTi7tbGFrvMeyQIdnCL JkXHBsYWluXGZzMjAgNTgg pK1uTxd+Rlx+s2b9kVRVGJ RXKFHgtaKxx4Tiggyjm7ry UKKvCIYnxnZzMBU2psSAH2 zvd0e7tER2vUKgcbQwGVUj LHAgfP6uNY5wLFQMSVSiFJ luIHggNCBkYXlzIGFuZCB3 PSKuGm77lpCijG1cuZU5WN Pqg6ddlCvfJVZqOHPlp32q ZUSfYCWukaOorX7zXZH0j8 PsqZraD9Wmz4bhHB0ymS8z kKRjuCNjdULrl75hkR0nT5 gvFazkvXm9lfJ6wcNmp3Jz ygRgLWK0exNCJ4nDGnCch5 MtSYwKJi6cqnspTRJ7 SPECIMEN SOURCE (test z1fmdCWvNEQivZVeTXJzGO code = 3377) jzixBqIUFahZEvS1Wqrmpe UUzyHU4gWZ8rsSnrzJYdtW JzKXKeIrFvt3vls428tUXh a8eoGDXFwxezaVs9aRyiT9 2dz9W2MgtsG51ehMAeLHY1 RZBkZIHhyVFjLCUbCDN1EO IntTXkM4bhCETmQA6hzhhd TOuxUPckESDttNP1YPCisP DcS3OrGSQwYQykXVNxcjm3 IsDxVd3nhFQgqYpgJQqpFB JkXHBsYWluXGZzMjAgTFlN BKwfVh5AXUwhFZxWRABcPW EMYaykRS0WNBKPNLWZR4DA WSBGTkFccGFyfQ== GROSS DESCRIPTION (test c6vsfZSqGAVoeUXRSSMlBU code = [id number]) PiRK1ibVdktYs7uMmxNGOl ezQ7uSUsBUaoh9sbIGR4v7 ewokTWErgyVIGoAO5fQLuy GPFoRU5gDhVjOESfOiMvPL BhcGVydzEyMjQwXHBhcGVy xJI5RJAsQE9sowpyRZnpFT fkEGKjimX9TBNdsJKsJ5Df EFSrIM7zftcgKBG2ZGBUHa fkFb3pkDNlnOmrMiEwZfKx YXJzZXQwXGZuaWwgQXJpYW v8aP1JAucoMEG4RGKIJgxy ZzmqmAjuo5PrzQXoBZCvFB xcaWQgNTEwMDAgXFxkYiBP IvPhScA4HEGxXtG1DsC4IF n9JRBUDFOaHSUrOyEmBTT7 GZy8OTGvAT8hLItgrWYlUY teVaqrRTspI960EZsrIYUa S0HyE7YlPMrzLgCuBLfrBB SxVRCnJPblTMCtG4QVPNFb JEVcCMA4RDXsHDv8XOnuK5 XCQVOeTTTgNucvGtN9GcD1 JQk5KWQQBz5mCol9OFv9YK J0RHC1DHe8IQmtlHRxYSkp o7JiTnWtSZTzDYdkltY8XF XnyiOoCJsscGrauJ1hWjTi KuIDGrZAnN9twCPMt8BdGN XrwsJKYwmwWBZcRW9RBILa PBmbAXUmEtLoaFOcR2nhBJ NyO54bg0LHb2BqYE0HDUt4 ceUangfndO8xRISslcIyRW pcZnMyMCBSZWNlaXZlZCAx MHEtgXUlkK7kZ0p6x7SmA4 ggcmVkOyBwcmVwYXJlZCA0 SSJ2aQ6bjAtqktviA3QnqN OjmW0aazCbDLSyYTdqAOeq HLYzq2WzCBGbNGFlEPAugo Eix6KiLCuekkGszWOeQKcb NSBvbiAzLzIxLzIwMjMpXH BhciANClxzYTMwXGVwaWNY d3AxHKENHuskqSvrAvRnqO VsCdZ9GDRdrVVrRTD8SC2e tGjnOWRaG1MhG5GcpzA1DB PlgeMGFobwYPXvZT9JQJAc MjIgDQp9 MICROSCOPIC DESCRIPTION f0qqxEZfJNLybMIsKQGbKK (test code = 3371) iitoNmDWOrjHIsJ7Uffznd CFlgCY0uOQ9avYkaqZZitB UgGLPaGiKrh1nst071zDNy i2nrDMZZtwqzmVu6bQtbE8 8py3E2XothD64fuQPkFJO1 NAAiJLRcvJMgVIXuNXD7IR PwsZVoP4csGJJoAN0euvyc WBgvACmxKDFukGE2HSXzmV KdU7FtFVDlROyfVWLksee5 XlEpNi2lpMAonBiqYZioHQ JkXHBsYWluXGZzMjAgUGVy Kp8rwSHvEdwcNCWshKSdID xwYXJ9 Gross assessment was [facility] performed at ([facility], = 2777) Department of Pathology, [address] [place] [address], Technical component was [facility] performed at ([facility], = 3369) Department of Pathology, [address] [place] [address], Professional component [facility] was performed at ([facility], code = 2779) Department of Pathology, [address] [place], [place] [id number], [facility]IR[facility] BY [id number] 09:58:30Medical Cytology Report Case: [id number] Authorizing Provider: Arcenio Lazo Collected: 11/30/2022 08:48 AM Ordering Location: [address] Received: 11/30/2022 03:09 PM Service Pathologist: Simon Corona MD Specimen: Lymph Node, liver, marguerite-portal lymph node biopsy via FNA LYMPH NODE, LIVER MARGUERITE-PORTAL, BIOPSY VIA FNA (CYTOSPINS AND CELL BLOCK): - NEGATIVE FOR MALIGNANT CELLS. -SCANT LYMPHOID TISSUE. Signing Pathologist Direct Phone Line: [phone] signed by Simon Corona MD on 12/01/2022 at 9:58 [id number], [id number] y.o. F with CIFUENTES cirrhosis, who presented [...] block placed in formalin at 15:35 on 11/30/2022)Performed.[facility], Department of Pathology, [address] [place] [address], [facility], [facility] of Pathology, [address] [place] [address], [facility], Department of Pathology, [address] [place] [address], XGORPTBWZWRST METABOLIC [id number] 05:09:17 Test Item Value Reference Range Interpretation [...] not appl icable for dialysis patien ts Neurology Stroke Physician HAROON ANGEL WCBC (HEMOGRAM ONLY)2022-12-01 04:18:12 Test Item [...] 0-0 (test code = 413) Fine Needle [id number] 17:00:24 Test Item Value Reference Range Interpretation Comments Cytology (test code = See Separate Report 2629) [facility] [id number] 17:00:24 Test Item Value Reference Range Interpretation Comments Cytology (test code = See Separate Report 2629) [facility] Needle [id number] 17:00:24 Test Item Value Reference Range Interpretation Comments Cytology (test code = See Separate Report 2629) [facility] NEEDLE ASPIRATE (FNA) [id number] 17:00:24 Test Item Value Reference Range Interpretation Comments CYTOLOGY RESULT POINTER See Separate Report (BEAKER) (test code = 2629) FL, FLUORO, NON-SPECIFIC, UP TO 1 [id number] 09:10:00Reason for exam:->[facility]lith[facility] : 1965 Sex: FAn imaging unit was utilized for this procedure. No radiologist interpretation was requested. Refer to the EMR for findings. Refer to PACS for any patient radiation dose information.COMPREHENSIVE METABOLIC [id number] 04:50:44 Test Item Value Reference Range Interpretation [...] not appl icable for dialysis patien ts Neurology Stroke Physician ID - MARCOPROTHROMBIN TIME/[id number] 04:28:12 Test Item Value Reference Range Interpretation [...] WBC 0-0 (test code = 413) PROTHROMBIN TIME/[id number] 23:20:55 Test Item Value Reference Range Interpretation [...] for dialysis patien ts HEPATOBILIARY IMAGING W/ [id number] 12:22:00Unlisted Reason for Exam - Click Yes and Enter Reason Below->YesUnlisted Reason for Exam->?chronic cholecystitis with dilated GBReason for exam:->?chronic cholecystitis with dilated GBCH[facility] : 1965 Sex: FFINAL REPORT PROCEDURE: HEPATOBILIARY SCAN with [facility] Infusion CPT CODE: 81541 INDICATION: 57-year-old female, chronic cholecystitis with dilated [...] 0-0 (test code = 413) COMPREHENSIVE METABOLIC [id number] 01:32:49 Test Item Value Reference Range Interpretation [...] not appl icable for dialysis patien ts Neurology Stroke Physician ID - DBCBC (HEMOGRAM ONLY)2022-11-28 01:07:42 Test [...] 0-0 H (test code = 413) Urine [id number] 10:01:17 Test Item Value Reference Range Interpretation Comments Result (test code = See comment 6463-4) EDILBERTO (test code = EDILBERTO) <10,000 col/mL Gram negative rods<10,000 col/mL skin [facility]ardo [facility] [id number] 10:01:17 Test Item Value Reference Range Interpretation Comments Result (test code = See comment 6463-4) EDILBERTO (test code = EDILBERTO) <10,000 col/mL Gram negative rods<10,000 col/mL skin ed[facility]ardo [facility] [id number] 10:01:17 Test Item Value Reference Range Interpretation Comments Result (test code = See comment 6463-4) EDILBERTO (test code = EDILBERTO) <10,000 col/mL Gram negative rods<10,000 col/mL skin eduardo [facility] HospitalCOMPREHENSIVE METABOLIC [id number] 06:17:40 Test Item Value Reference Range Interpretation [...] not appl icable for dialysis patien ts Neurology Stroke Physician ID - MARCOSpecimen slightly ictericCBC (HEMOGRAM ONLY)2022-11-27 [...] 0-0 (test code = 413) MR, ABDOMEN, [id number] 10:22:00Unlisted Reason for Exam - Click Yes and Enter Reason Below->YesUnlisted Reason for Exam->evaluate for choledocholithiasis [facility] : 1965 Sex: [...] correlate clinically to exclude enterocolitis. Signed: Manish Panda MDReport Verified Date/Time: 11/26/2022 10:22:09 Reading Location: [facility] C013X Ortho Consult Reading Room Electronically signed by: MANISH PANDA M.D. on11/26/2022 10:22 AMBASIC METABOLIC [id number] 06:05:16 Test Item Value Reference Range Interpretation [...] not appl icable for dialysis patien ts Neurology Stroke Physician ID - MARIOSpecimen slightly ictericHEPATIC FUNCTION [id number] 06:04:28 Test Item Value Reference Range Interpretation [...] (test code = 33 U/L 6-55 347) Neurology Stroke Physician ID - MARIOSpecimen slightly ictericPROTHROMBIN TIME/[id number] 05:52:20 Test Item Value Reference Range Interpretation [...] mechanical heart valves.CBC W/PLT COUNT & AUTO [id number] 05:33:16 Test Item Value Reference Range Interpretation [...] (BEAKER) (test code = 2801) U/S, ABDOMINAL, [id number] 17:23:00Abdomen limited area? Add comment if clarification is needed.->Right upper quadrant Reason for exam:- >cholecystitis possible choledocolithiasis [facility] : 1965 Sex: [...] 3.Cirrhosis and small volume ascites. Signed: Goldie Albright MDReport Verified Date/Time: 11/25/2022 17:23:59 Urinalysis w/Microscopic + Reflex to [id number] 11:12:01 Test Item Value Reference Range Interpretation Comments Color, UA (test code Brown = 5778-6) Clarity, UA (test Cloudy code = 5767-9) Specific [place], UA 1.050 1.001-1.035 H (test code = 5811-5) pH, UA (test code = 6.0 5.0-8.0 5803-2) Protein, UA (test 200 mg/dL Negative A code = 53650-1) Glucose, UA (test Negative Negative code = 365) Ketones, UA (test Trace Negative A code = 2514-8) Bilirubin, UA (test Negative Negative code = 14170-4) Blood, UA (test code Large Negative A = 93125-6) Nitrite, UA (test Negative Negative code = 5802-4) Leukocytes, UA (test Small Negative A code = 5799-2) Urobilinogen, UA 2 0.2-1.0 H (test code = 67185-0) RBC, UA (test code = See_Comment [Autom ated 45321-1) message] The system which generated this result [...] . Bacteria, UA (test Many code = 07029-1) Mucus (test code = Rare 8247-9) Squam Epithel, UA 10 See_Comment [Automate d (test code = 44682-0) messag e] The system which generated this result transmit joanna reference range : /HPF. The reference range was not used to interpret this result as normal/abnormal . Specimen Source (test code = 2795) EDILBERTO (test code = EDLIBERTO) Neurology Stroke Physician ID - tech Lab Interpretation Abnormal (test code = 64116-9) [facility] + Reflex to Culture 2022-11-25 11:12:01 Test Item Value Reference Range Interpretation Comments Color, UA (test code Brown = 5778-6) Clarity, UA (test Cloudy code = 5767-9) Specific [place], UA 1.050 1.001-1.035 H (test code = 5811-5) pH, UA (test code = 6.0 5.0-8.0 5803-2) Protein, UA (test 200 mg/dL Negative A code = 76642-9) Glucose, UA (test Negative Negative code = 365) Ketones, UA (test Trace Negative A code = 2514-8) Bilirubin, UA (test Negative Negative code = 88630-2) Blood, UA (test code Large Negative A = 84198-7) Nitrite, UA (test Negative Negative code = 5802-4) Leukocytes, UA (test Small Negative A code = 5799-2) Urobilinogen, UA 2 0.2-1.0 H (test code = 30104-3) RBC, UA (test code = See_Comment [Autom ated 64762-2) message] The system which generated this result [...] . Bacteria, UA (test Many code = 44067-8) Mucus (test code = Rare 8247-9) Squam Epithel, UA 10 See_Comment [Automate d (test code = 22944-0) messag e] The system which generated this result transmit joanna reference range : /HPF. The reference range was not used to interpret this result as normal/abnormal . Specimen Source (test code = 2795) EDILBERTO (test code = EDILBERTO) Neurology Stroke Physician ID - tech Lab Interpretation Abnormal (test code = 40788-5) [facility]Micro[facility] + Reflex to Culture 2022-11-25 11:12:01 Test Item Value Reference Range Interpretation Comments Color, UA (test code Brown = 5778-6) Clarity, UA (test Cloudy code = 5767-9) Specific [place], UA 1.050 1.001-1.035 H (test code = 5811-5) pH, UA (test code = 6.0 5.0-8.0 5803-2) Protein, UA (test 200 mg/dL Negative A code = 38573-1) Glucose, UA (test Negative Negative code = 365) Ketones, UA (test Trace Negative A code = 2514-8) Bilirubin, UA (test Negative Negative code = 50581-8) Blood, UA (test code Large Negative A = 48697-1) Nitrite, UA (test Negative Negative code = 5802-4) Leukocytes, UA (test Small Negative A code = 5799-2) Urobilinogen, UA 2 0.2-1.0 H (test code = 91816-6) RBC, UA (test code = See_Comment [Autom ated 65317-0) message] The system which generated this result [...] . Bacteria, UA (test Many code = 23507-0) Mucus (test code = Rare 8247-9) Squam Epithel, UA 10 See_Comment [Automate d (test code = 14658-8) messag e] The system which generated this result transmit joanna reference range : /HPF. The reference range was not used to interpret this result as normal/abnormal . Specimen Source (test code = 2795) EDILBERTO (test code = EDILBERTO) Neurology Stroke Physician ID - tech Lab Interpretation Abnormal (test code = 71924-0) [facility]FLEX URINE [id number] 11:12:01 Test Item Value Reference Range Interpretation [...] = 516) SOURCE(BEAKER) (test code = 2795) Neurology Stroke Physician ID - techBILIRUBIN, [id number] 10:18:18 Test Item Value Reference Range Interpretation Comments BILIRUBIN DIRECT (BEAKER) (test 1.3 mg/dL 0.1-0.5 H code = 706) Neurology Stroke Physician ID - HENRIQUE GPROTHROMBIN TIME/[id number] 07:19:55 Test Item Value Reference Range Interpretation [...] not appl icable for dialysis patien ts Neurology Stroke Physician ID - HENRIQUE GSpecimen slightly [id number] 07:09:53 Test Item Value Reference Range Interpretation Comments MAGNESIUM (BEAKER) (test code = 1.7 mg/dL 1.6-2.6 627) Neurology Stroke Physician ID - HENRIQUE [id number] 07:09:53 Test Item Value Reference Range Interpretation Comments PHOSPHORUS (BEAKER) (test code = 3.8 mg/dL 2.3-4.7 604) Neurology Stroke Physician ID - HENRIQUE GCBC W/PLT COUNT & AUTO [id number] 06:52:55 Test Item Value Reference Range Interpretation [...] % 0.00-1.00 PERCENT (BEAKER) (test code = 8950)
[2023-04-21 16:48] LABS: Absolute Lymphocytes (CBC) 0.8 K/uL (0.7-4.9); Hematocrit 36.3 % (36.0-45.0); Lymphocytes % 13.7 % (15.3-44.8); MCV 107.5 fL (80-100); RBC Red Blood Cell Count 3.37 M/uL (3.86-4.86)
[2023-04-21 16:51] LABS: Protime INR 1.58
--- NOTE | 2023-04-21 16:59 | RAD REPORT ---
EXAM DESCRIPTION: RADChest Single View04/21/2023 4:42 pm CLINICAL HISTORY: SOB COMPARISON: Chest Pa And Lat (2 Views) dated 04/14/2023; Chest Single View dated 04/05/2023; Chest Sing le View dated 03/18/2023; Chest Single View dated 03/18/2023 TECHNIQUE: Portable AP view of the chest. FINDINGS: Persistent left mid to lower lung consolidative opacity, with suspected small to moderate effusion, concerning for underlying pneumonia. No pneumothorax or right-sided effusion. The cardiomed iastinal contours are unremarkable. IMPRESSION: No significant interval change.
[2023-04-21 17:02] LABS: MPV 8.3 fL (7.6-11.3); Platelets 78 thou/uL (152-406)
[2023-04-21 17:03] LABS: Albumin 2.7 g/dL (3.4-5.0); Bilirubin Total 1.7 mg/dL (0.2-1.0); Phosphorus 2.9 mg/dL (2.5-4.9)
[2023-04-21 17:04] LABS: Magnesium 2.4 mg/dL (1.6-2.4); Potassium 4.1 mEq/L (3.5-5.1)
[2023-04-21 17:36] LABS: Troponin High Sensitivity 5.2 pg/mL (<58.9)
[2023-04-21] MEDS ORDERED: HYDROMORPHONE HCL 0.5 MG/0.5 ML INJ ONE (18:10)
[2023-04-21] MEDS ORDERED: ONDANSETRON 4 MG/2 ML VIAL ONE (18:14)
--- NOTE | 2023-04-21 18:38 | ER ---
Nurse's Notes [facility] Name: Chritselle Paredes Age: 58 yrs Sex: Female : 1965 Arrival Date: 04/21/2023 Time: 16:08 Bed 15 Private MD: Diagnosis: Dyspnea, unspecified;Acute stress reaction Presentation: 04/21 16:15 Chief complaint: Chief complaint: Patient states: SOB and upper abd pain feels like iw pressure up int her chest , started on her way home from having a nuclear stress test done , hx of BISHOP, cirrhosis. 16:15 Coronavirus screen: Client presents with at least one sign or symptom that may indicate iw coronavirus-19. Ebola Screen: Patient negative for fever greater than or equal to 101.5 degrees Fahrenheit, and additional compatible Ebola Virus Disease symptoms Patient denies exposure to infectious person. Patient denies travel to an Ebola-affected area in the 21 days before illness onset. 16:15 Method Of Arrival: Wheelchair iw 16:18 Initial Sepsis Screen: Does the patient meet any 2 criteria? No. Patient's initial iw sepsis screen is negative. Does the patient have a suspected source of infection? No. Patient's initial sepsis screen is negative. Risk Assessment: Do you want to hurt yourself or someone else? Patient reports no desire to harm self or others. Onset of symptoms was April 21, 2023. 16:18 Acuity: FRANKLIN 3 iw Triage Assessment: 19:35 General: Appears comfortable, Behavior is calm, cooperative. Neuro: Level of ha1 Consciousness is awake, alert, obeys commands, Oriented to person, place, time, situation. Respiratory: Reports shortness of breath Historical: - Allergies: 16:19 "muscle relaxers"; iw 16:19 Meclizine; iw 16:19 Vancomycin; iw - PMHx: 16:19 Asthma; cirrhosis of liver; kidney issues with IV contrast; iw - PSHx: 16:19 common bile duct stent-EGD; iw Screenin:22 [facility] ED Fall Risk Assessment (Adult) History of falling in the last 3 months, iw including since admission No falls in past 3 months (0 pts). Abuse screen: Denies threats or abuse. Denies injuries from another. Nutritional screening: No deficits noted. Tuberculosis screening: No symptoms or risk factors identified. Assessment: 18:22 Reassessment: Patient appears in no apparent distress at this time. Patient and/or iw family updated on plan of care and expected duration. Pain level reassessed. Patient is alert, oriented x 3, equal unlabored respirations, skin warm/dry/pink. 19:34 Reassessment: Patient and/or family updated on plan of care and expected duration. Pain ha1 level reassessed. Patient is alert, oriented x 3, equal unlabored respirations, skin warm/dry/pink. Patient states feeling better. Patient states symptoms have improved. 19:35 Cardiovascular:. Respiratory: Airway is patent Respiratory effort is even, unlabored, ha1 Vital Signs: 16:18 BP 113 / 52; Pulse 98; Resp 20; Temp 98.4; Pulse Ox 99% on R/A; iw 19:34 BP 106 / 55; Pulse 94; Resp 20 S; Pulse Ox 99% on R/A; ha1 ED Course: 16:12 Patient arrived in ED. iw 16:14 Emily Conway, RN is Primary Nurse. iw 16:14 Davonte Bond PA is PHCP. cp 16:15 Otf Alvarez MD is Attending Physician. cp 16:19 Triage completed. iw 16:19 Arm band placed on. iw 16:44 Chest Single View XRAY In Process Unspecified. EDMS 17:20 Inserted saline lock: 22 gauge in right hand, using aseptic technique. iw 17:23 Erica Matt FNP-C is PHCP. snw 19:36 Patient has correct armband on for positive identification. Fall risk band placed. ha1 Placed in gown. Bed in low position. Call light in reach. Side rails up X 1. 19:36 No provider procedures requiring assistance completed. IV discontinued, intact, ha1 bleeding controlled, No redness/swelling at site. Pressure dressing applied. 19:37 Provided Education on: follow ups. ha1 Administered Medications: 18:00 Drug: HYDROmorphone IVP 0.5 mg Route: IVP; Site: right hand; iw Medication: 18:22 VIS not applicable for this client. iw Outcome: 18:38 Discharge ordered by . snw 19:36 Discharged to home via wheelchair. ha1 19:36 Condition: stable 19:36 Discharge instructions given to patient, family, Instructed on discharge instructions, follow up and referral plans. medication usage, Demonstrated understanding of instructions, follow-up care, medications, Prescriptions given X 1. 19:38 Patient left the ED. ha1 Signatures: Dispatcher [employer] EDErica Zee, RYOAL CARRIER DRIVER-Emily Schmitt, RN RN iw Davonte Bond PA PA cp Ayala, Heidy, RN RN ha1 Corrections: (The following items were deleted from the chart) 16:18 16:15 Chief complaint: iw iw 18:23 17:50 Accessed Port-a-Cath. using accessed w/ # 20 Garcia needle, ,sterile technique, iw per hospital protocol. Clean \\T\\ dry. Dressing intact. Good blood return. Flushes easily. iw
--- NOTE | 2023-04-21 18:38 | EDPHYS ---
Physician Documentation [facility] Name: Christelle Paredes Age: 58 yrs Sex: Female : 1965 Arrival Date: 04/21/2023 Time: 16:08 Bed 15 Private MD: ED Physician Otf Alvarez HPI: 04/21 16:28 This 58 yrs old Female presents to ER via Wheelchair with complaints of Breathing snw Difficulty. 16:28 The patient has shortness of breath at rest. Onset: The symptoms/episode began/occurred snw suddenly, s/p nuclear stress test. Duration: The symptoms are continuous. Associated signs and symptoms: Pertinent positives: chest pain. Severity of symptoms: At their worst the symptoms were moderate severe in the emergency department the symptoms are unchanged. The patient has been recently seen by a physician: Sees Dr. Chappell at [facility], Also sees Dr. Anaya - recently told her dx is BISHOP and MELD score moved from 16-21. Pt to have cardiac cath on 05/09/23 to be placed on liver transplant list. Historical: - Allergies: 16:19 "muscle relaxers"; iw 16:19 Meclizine; iw 16:19 Vancomycin; iw - PMHx: 16:19 Asthma; cirrhosis of liver; kidney issues with IV contrast; iw - PSHx: 16:19 common bile duct stent-EGD; iw ROS: 16:23 Eyes: Negative for injury, pain, redness, and discharge. snw 16:23 ENT: Negative for injury, pain, and discharge, Neck: Negative for injury, pain, and swelling, Cardiovascular: Negative for chest pain, palpitations, and edema, Respiratory: Negative for shortness of breath, cough, wheezing, and pleuritic chest pain, Abdomen/GI: Negative for abdominal pain, nausea, vomiting, diarrhea, and constipation, Back: Negative for injury and pain, : Negative for injury, bleeding, discharge, and swelling, MS/Extremity: Negative for injury and deformity, Skin: Negative for injury, rash, and discoloration, Neuro: Negative for headache, weakness, numbness, tingling, and seizure. 16:23 Constitutional: Positive for shortness of breath. 16:23 Psych: Positive for anxiety. Exam: 16:19 Head/Face: Normocephalic, atraumatic. Eyes: Pupils equal round and reactive to light, snw extra-ocular motions intact. Lids and lashes normal. Conjunctiva and sclera are non-icteric and not injected. Cornea within normal limits. Periorbital areas with no swelling, redness, or edema. ENT: Nares patent. No nasal discharge, no septal abnormalities noted. Tympanic membranes are normal and external auditory canals are clear. Oropharynx with no redness, swelling, or masses, exudates, or evidence of obstruction, uvula midline. Mucous membranes moist. Neck: Trachea midline, no thyromegaly or masses palpated, and no cervical lymphadenopathy. Supple, full range of motion without nuchal rigidity, or vertebral point tenderness. No Meningismus. Chest/axilla: Normal chest wall appearance and motion. Nontender with no deformity. No lesions are appreciated. 16:19 Back: No spinal tenderness. No costovertebral tenderness. Full range of motion. 16:19 MS/ Extremity: Pulses equal, no cyanosis. Neurovascular intact. Full, normal range of motion. Neuro: Awake and alert, GCS 15, oriented to person, place, time, and situation. Cranial nerves II-XII grossly intact. Motor strength 5/5 in all extremities. Sensory grossly intact. Cerebellar exam normal. Normal gait. 16:19 Constitutional: The patient appears awake, anxious, frail, uncomfortable. 16:19 Cardiovascular: Rate: tachycardic, Heart sounds: normal. 16:19 Respiratory: the patient does not display signs of respiratory distress, Respirations: shallow respirations, that is moderate, tachypnea. 16:19 Abdomen/GI: Inspection: distension, that is moderate, Palpation: abdomen is soft and non-tender, in all quadrants. 16:19 Skin: Appearance: Color: dusky, ecchymosis, that are moderate, and are diffusely located. 16:19 Psych: Behavior/mood is pleasant, cooperative, anxious, Affect is calm. Vital Signs: 16:18 BP 113 / 52; Pulse 98; Resp 20; Temp 98.4; Pulse Ox 99% on R/A; iw 19:34 BP 106 / 55; Pulse 94; Resp 20 S; Pulse Ox 99% on R/A; ha1 MDM: 16:15 Patient medically screened. snw 17:22 Differential diagnosis: Anemia Anxiety Reaction Bronchitis CHF exacerbation, pulmonary snw edema. Data reviewed: vital signs, nurses notes, lab test result(s), EKG, radiologic studies. Counseling: I had a detailed discussion with the patient and/or guardian regarding: the historical points, exam findings, and any diagnostic results supporting the discharge/admit diagnosis, lab results, radiology results. Response to treatment: pt states she is not feeling much better. C/o pain to left upper back. 04/21 16:19 Order name: CBC with Diff; Complete Time: 17:08 snw 04/21 16:19 Order name: CMP; Complete Time: 17:08 snw 04/21 16:19 Order name: Lipase; Complete Time: 17:08 snw 04/21 16:19 Order name: Ptt, Activated; Complete Time: 16:57 snw 04/21 16:19 Order name: PT-INR; Complete Time: 16:57 snw 04/21 16:19 Order name: Magnesium; Complete Time: 17:08 snw 04/21 16:19 Order name: Phosphorus; Complete Time: 17:08 snw 04/21 16:28 Order name: Troponin High Sensitivity; Complete Time: 17:43 snw 04/21 16:28 Order name: BNP; Complete Time: 17:43 snw 04/21 17:22 Order name: SARS RAPID snw 04/21 18:36 Order name: SARS-COV-2 Antigen Rapid EDMS 04/21 16:19 Order name: Chest Single View XRAY; Complete Time: 17:00 snw 04/21 16:19 Order name: O2; Complete Time: 16:52 snw 04/21 16:19 Order name: SL; Complete Time: 16:52 snw EC:54 Rate is 87 beats/min. Rhythm is regular. QRS [place] is Normal. NM interval is normal. QRS snw interval is normal. QT interval is normal. No Q waves. Clinical impression: Normal ECG. Administered Medications: 18:00 Drug: HYDROmorphone IVP 0.5 mg Route: IVP; Site: right hand; Disposition: 20:50 Co-signature as Attending Physician, Otf Alvarez MD I reviewed the patient's care rn provided by the Advanced Practice Provider and agree with the diagnosis and treatment plan. Disposition Summary: 04/21/23 18:38 Discharge Ordered Location: Home snw Condition: Stable snw Diagnosis - Dyspnea, unspecified snw - Acute stress reaction snw Followup: snw - With: Emergency Department - When: As needed - Reason: Worsening of condition Followup: snw - With: Private Physician - When: Tomorrow - Reason: Recheck today's complaints, Continuance of care Discharge Instructions: - Discharge Summary Sheet snw - Shortness of Breath, Adult snw - Stress, Adult snw - Panic Attack, Sxke-sm-Lkso snw Forms: - Medication Reconciliation Form snw - Thank You Letter snw - Antibiotic Education snw - Prescription Opioid Use snw - Patient Portal Instructions snw Prescriptions: - lorazepam 0.5 mg Oral tablet - take 1 tablet by ORAL route every 12 hours as needed for anxiety; 10 tablet; snw Refills: 0, Product Selection Permitted Signatures: Dispatcher [employer] EDErica Zee FNP-C FOOD PREPARER-Csnw Emily Conway, RN RN iw Otf Alvarez MD MD rn
[2023-04-21 18:59] LABS: SARS-CoV-2 Antigen Rapid Res Negative (Negative)
[2023-04-21 19:51] VITALS: TEMP 98.4; O2SAT 99
[2023-04-21 20:01] VITALS: BP 106/55
--- NOTE | 2023-04-25 13:15 | EKG ---
Test Date: 2023-04-21 Test Time: 16:48:07 Senior Support Engineer: MARTIN MEASUREMENT RESULTS: Intervals: Rate: 87 [place]: 160 QRSD: 76 QT: 344 QTc: 413 [place]: P: 23 [place]: 160 QRS: 17 T: 26 INTERPRETIVE STATEMENTS: Normal sinus rhythm Normal ECG Compared to ECG 03/18/2023 10:17:52 ST (T wave) deviation no longer present Electronically Signed On 04-25-23 13:12:05 CDT by Otto Grullon
== END 2023-04-21 19:38 | disposition home or self-care (01) ==
LOC: ER 16:08
DX: F43.0 Acute stress reaction (principal); Z20.822 Contact with and (suspected) exposure to COVID-19; Z88.3 Allergy status to other anti-infective agents; Z88.8 Allergy status to other drugs, medicaments and biological substances
CPT/HCPCS: 85025; 36415; 83735; 84100; 85610; 85730; 84484; 83690; 80053; 83880; 71045; 96374; 99284; 87811; J1170; J2405; 93005

== ENCOUNTER 2023-07-16 21:46 | Emergency (ER) | payer BC ==
--- OUTSIDE RECORDS SUMMARY | 2023-07-16 22:00 | XMS REPORT | Continuity of Care Document ---
:1965 Author Organization [facility] t Address [address] [place] [address] [place] [id number] Care Team Providers Name Role Phone Nuris Alegre Primary Care Physician KADI MARY Attending Clinician Unavailable ZAKIA TAYLOR Attending Clinician Unavailable LUPE VAZQUEZ Attending Clinician Unavailable APRYL KOCH Attending Clinician Unavailable DANUTA TAYLOR Attending Clinician Unavailable CARLOS RAY Attending Clinician Unavailable MARSHA BLACK Attending Clinician Unavailable MARIO MONTANO Attending Clinician Unavailable ASHLEY WRIGHT Attending Clinician Unavailable PAUL SUTTON Attending Clinician Unavailable MATY MEI Attending Clinician Unavailable BEBE COX Attending Clinician Unavailable KEANU GUEVARA Attending Clinician Unavailable GOLDEN GAXIOLA Attending Clinician Unavailable JASEN ORDONEZ Attending Clinician Unavailable PAO NORWOOD Attending Clinician Unavailable MARY HARP Attending Clinician Unavailable DANUTA GARCIA Attending Clinician Unavailable SAMANTHA ALFREDO Attending Clinician Unavailable SAMUEL CORONA Attending Clinician Unavailable ANANDA HENDRICKSON Attending Clinician Unavailable RIGO SANZ Attending Clinician Unavailable DAVID QUILES Attending Clinician Unavailable JEAN OLIVERA Attending Clinician Unavailable RIMMA GONZALEZ Attending Clinician Unavailable JIM KAHN Attending Clinician Unavailable BRETT JENSEN Attending Clinician Unavailable YULISA REYES Attending Clinician Unavailable SERGIO BLACK Attending Clinician Unavailable ABRAM OWUSU Attending Clinician Unavailable HIRAM HIGHTOWER Attending Clinician Unavailable AMIE ROBERSON Attending Clinician Unavailable MARCIN MAIN Attending Clinician Unavailable KRIS BUTTS Attending Clinician Unavailable IFRAH FOFANA Attending Clinician Unavailable ARCENIO LAZO Attending Clinician Unavailable ROXANNA MAXWELL Attending Clinician Unavailable LEONARD LORA Attending Clinician Unavailable MP HARRIS Attending Clinician Unavailable CAROLYN BLOCK Attending Clinician Unavailable Referred, Self Attending Clinician Unavailable VERONICA KRAMER Attending Clinician Unavailable LUCY PASCAL Attending Clinician Unavailable GOLDIE ALBRIGHT Attending Clinician Unavailable JOSELUIS STONER Attending Clinician Unavailable ERIKA CUELLAR Attending Clinician Unavailable BARRY CUNHA Attending Clinician Unavailable ANA LUISA, HEATHER THURMAN Attending Clinician Unavailable NENA MANE Attending Clinician Unavailable MARGIE ALLRED Attending Clinician Unavailable Mel VAUGHN, Du Attending Clinician Terri Concepcion Attending Clinician Fabiano VAUGHN, Gerardo Castro Attending Clinician Paul Sutton MD Attending Clinician [phone] Patricia VAUGHN MPH, Amie Lehman Attending Clinician [phone] Enmanuel VAUGHN, Megha Dumas Attending Clinician Castillo VAUGHN, Rylie Diaz Attending Clinician Graham VAUGHN, Dipak Long Attending Clinician Ana Luisa VAUGHN, Heather Thurman Attending Clinician [phone] Judi Vigil Attending Clinician Eun Gregory MD Attending Clinician Monica Ruiz CRNA Attending Clinician [phone] Jeannette Arcenio Cole Attending Clinician DICKSONJAY JAYKADI DELGADO Admitting Clinician Unavailable RIGO SANZ Admitting Clinician Unavailable SUSHIL EPPERSON Admitting Clinician Unavailable PAUL SUTTON Admitting Clinician Unavailable ASHLEY WRIGHT Admitting Clinician Unavailable USHA CUELLAR Admitting Clinician Unavailable BARRY CUNHA Admitting Clinician Unavailable HIRAM HIGHTOWER Admitting Clinician Unavailable JEANNETTE ARCENIO COLE Admitting Clinician Unavailable Referred, Self Admitting Clinician Unavailable HEATHER MARIANO Admitting Clinician Unavailable MARISABEL HO Admitting Clinician Unavailable JUDI VIGIL Admitting Clinician Unavailable Payers Payer Name Policy Type Policy Number Effective Date Expiration Date S chay BCBS PPO POS EPO [id number] 2022 00:00:00 CHOICE Problems Condition Condition Condition Status Onset Resolution Last Treating Co mments Source Name Details Category Date Date Treatment Clinician Date Pleural Pleural Disease Active [facility] Other Other Disease Active [facility] 00 [place] Symptomati Symptomati Disease Active C [facility] [...] Propensi Active Method i in ty to 24 st adverse 00:00: Hospita reaction 00 l s to drug NO KNOWN Allergy Active [facility] Family History Family Member Diagnosis Comments Start Date Stop Date Source Natural father Hypertension [facility] Natural father Kidney cancer [facility] Natural mother Arrhythmia [facility] Natural mother Asthma [facility] Natural mother Cirrhosis [facility] Natural mother Diabetes [facility] Social History Social Habit Start Date Stop Date Quantity Comments Source Gender identity Scientologist Hospital History SDOH [facility] Alcohol Std Drinks Medica l Center [facility] Alcohol Binge Medical Mal[facility] Sexual orientation Method ist Hospital Exposure to 2022-12-19 2022-12-[address] [facility] SARS-CoV-2 (event) 00:00:00 15:15:00 Medica l Center History [facility] 2022-12-29 2022-12-[address] [facility] Housing Unable to 00:00:00 00:00:00 Medical Center Pay History [facility] 2022-12-29 2022-12-[address] [facility] Housing Places 00:00:00 00:00:00 Medical Ce nter Lived History [facility] 2022-12-29 2022-12-[address] [facility] Housing Homeless 00:00:00 00:00:00 Medical Center Last Year History [facility] 2022-11-25 2022-11-[address] [facility] Alcohol Frequency 00:00:00 00:00:00 Medical Center History of Social 2019-05-03 2019-05-[address] function 00:00:00 00:00:00 Hospital Tobacco use and 2019-04-04 2019-04-04 Smokeless Scientologist exposure 00:00:00 00:00:00 tobacco non-user Hospital Alcohol intake 2019-04-04 2019-04-04 Ex-drinker Scientologist 00:00:00 00:00:00 (finding) Hospital Sex Ass[birth year] At [birth year] Scientologist 00:00:00 00:00:00 Hospital Smoking Status Start Date Stop Date Source Never smoked tobacco [facility] Medications Ordered Filled Start Stop Current Ordering [...] [facility] (ULTRAM) 50 4-26 tablet (50 Veroniac kes mg tablet 18:19: mg total) Med ical 05 by mouth Center every 6 (six) hours as needed for Pain. Max Daily Amount: 200 mg ondansetron Yes 4mg Take [address] [facility] (ZOFRAN) 4 -26 tablet (4 Luke s MG tablet 18:19: mg total) Med ical 05 by mouth 3 Center (three) times daily as needed for Nausea. torsemide 0 2022- No 40mg QD Take [address] 40 mg Tab 01-05-26 by mouth [facility] 00:00: 23:59 in the Medical 00 :00 morning Center for 30 days. potassium 2022-2023- No 10meq QD Take [address] chloride 01-04 04-24 tablet (10 Luke s (KLOR-CON-M 00:00: 23:59 mEq total) Medical ) 10 MEQ CR 00 :00 by mouth Cent er tablet in the morning. propranoloL 2022-2023- No 10mg [id number] Take [address] (INDERAL) 12-01-21 [id number] tablet (10 [facility] 10 MG 00:00: 23:59 3D mg total) Medica l tablet 00 :00 by mouth Center in the morning and 1 tablet (10 mg total) at noon and 1 tablet (10 mg total) in the evening. furosemide 2022-0 2023- No 20mg Take [address] [facility] (LASIX) 20 12-01 03-21 tablet (20 Veronica kes MG tablet 00:00: 23:59 mg total) Me dical 00 :00 by mouth Center daily as needed (leg swelling). albuterol 2023- No 1{puff} Inhale [address] HFA -01 12-21 puff by [facility] (VENTOLIN 00:00: 23:59 mouth via Me dical HFA) 90 00 :00 inhaler Center mcg/actuati every 6 on inhaler (six) hours as needed for Wheezing. propranoloL 2022-2023- No 10mg Q.[id number] Take [address] (INDERAL) -01 12- [id number] tablet (10 [facility] 10 MG 00:00: 23:59 [...] needed for Wheezing. propranoloL 2023- No 10mg Q.[id number] Take [address] (INDERAL) -01 12- [id number] tablet (10 [facility] 10 MG 00:00: 23:59 [...] (six) hours as needed for Wheezing. furosemide 2022-2022- No 20mg Take [address] [facility] (LASIX) 20 3-22 04-25 tablet (20 Veronica kes MG tablet [...] days. Max Daily Amount: 200 mg valsartan 0 Yes 80mg QD Take 80 mg Me thodi (DIOVAN) 80 6-[address] MG tablet 00:00: daily. Hospit a l valsartan 0 Yes 80mg QD Take 80 mg Me thodi (DIOVAN) 80 6-[address] MG tablet 00:00: daily. Hospit a l valsartan 2018-0 Yes 80mg QD Take 80 mg Me thodi (DIOVAN) 80 6-[address] MG tablet 00:00: daily. Hospit a l valsartan 2018-0 Yes 80mg QD Take 80 mg Me thodi (DIOVAN) 80 6-[address] MG tablet 00:00: daily. Hospit a l valsartan 2018-0 Yes 80mg QD Take 80 mg Me thodi (DIOVAN) 80 6-[address] MG tablet 00:00: daily. Hospit a l valsartan 2018-0 Yes 80mg QD Take 80 mg Me [...] Name Observation Time Observation Value Comments Source WEIGHT 2023-07-12 04:15:00 94.2 kg WEIGHT 2023-07-11 05:45:00 94.8 kg WEIGHT 2023-07-10 05:54:00 97 kg WEIGHT 2023-07-09 05:49:00 96.7 kg WEIGHT 2023-07-08 04:25:00 94.4 kg WEIGHT 2023-07-07 04:10:00 93 kg WEIGHT 2023-07-06 05:12:00 93.7 kg HEIGHT 2023-07-05 00:59:00 172.7 cm WEIGHT 2023-07-05 00:59:00 93.895 kg WEIGHT 2023-07-12 04:15:00 94.2 kg WEIGHT 2023-07-11 05:45:00 94.8 kg WEIGHT 2023-07-10 05:54:00 97 kg WEIGHT 2023-07-09 05:49:00 96.7 kg WEIGHT 2023-07-08 04:25:00 94.4 kg WEIGHT 2023-07-07 04:10:00 93 kg WEIGHT 2023-07-06 05:12:00 93.7 kg HEIGHT 2023-07-05 00:59:00 172.7 cm WEIGHT 2023-07-05 00:59:00 93.895 kg WEIGHT 2023-07-04 08:43:00 93.895 kg WEIGHT 2023-07-04 08:43:00 93.895 kg HEIGHT 2023-06-27 22:45:00 172.7 cm WEIGHT 2023-06-27 22:45:00 92.08 kg HEIGHT 2023-06-27 22:45:00 172.7 cm WEIGHT 2023-06-27 22:45:00 92.08 kg HEIGHT 2023-06-27 08:02:00 172.7 cm WEIGHT 2023-06-27 08:02:00 92.262 kg HEIGHT 2023-06-27 08:02:00 172.7 cm WEIGHT 2023-06-27 08:02:00 92.262 kg HEIGHT 2023-06-20 09:12:00 172.7 cm WEIGHT 2023-06-20 09:12:00 95.709 kg HEIGHT 2023-06-20 09:12:00 172.7 cm WEIGHT 2023-06-20 09:12:00 95.709 kg HEIGHT 2023-06-07 09:25:00 172.7 cm WEIGHT 2023-06-07 09:25:00 99.882 kg HEIGHT 2023-06-07 09:25:00 172.7 cm WEIGHT 2023-06-07 09:25:00 99.882 kg WEIGHT 2023-06-06 08:54:00 97.523 kg WEIGHT 2023-06-06 08:54:00 97.523 kg HEIGHT 2023-05-26 21:36:00 172.7 cm WEIGHT 2023-05-26 21:36:00 100.29 kg HEIGHT 2023-05-26 16:22:00 172.7 cm WEIGHT 2023-05-26 16:22:00 101.152 kg HEIGHT 2023-05-26 21:36:00 172.7 cm WEIGHT 2023-05-26 21:36:00 100.29 kg HEIGHT 2023-05-26 16:22:00 172.7 cm WEIGHT 2023-05-26 16:22:00 101.152 kg WEIGHT 2023-05-15 04:50:00 102.331 kg WEIGHT 2023-05-14 06:00:00 102.059 kg HEIGHT 2023-05-13 09:52:00 172.7 cm WEIGHT 2023-05-13 09:52:00 102.3 kg WEIGHT 2023-05-15 04:50:00 102.331 kg WEIGHT 2023-05-14 06:00:00 102.059 kg HEIGHT 2023-05-13 09:52:00 172.7 cm WEIGHT 2023-05-13 09:52:00 102.3 kg HEIGHT 2023-05-10 13:34:00 172.7 cm WEIGHT 2023-05-10 13:34:00 95.709 kg HEIGHT 2023-05-10 13:34:00 172.7 cm WEIGHT 2023-05-10 13:34:00 95.709 kg HEIGHT 2023-05-09 06:55:00 172.7 cm WEIGHT 2023-05-09 06:55:00 100.699 kg HEIGHT 2023-05-09 06:55:00 172.7 cm WEIGHT 2023-05-09 06:55:00 100.699 kg HEIGHT 2023-04-19 14:45:00 172.7 cm WEIGHT 2023-04-19 [...] kg Heart rate 2023-01-04 15:54:03 71 /min [facility] Respiratory rate 2023-01-04 15:54:03 18 /min [facility] Oxygen saturation in 2023-01-04 15:54:03 96 /min [facility] Arterial blood by Medical Ce nter Pulse oximetry Body temperature 2023-01-04 15:53:12 37 Odilia [facility] Systolic blood 2023-01-04 15:53:00 108 mm[Hg] [facility] Diastolic blood 2023-01-04 15:53:00 69 mm[Hg] [facility] Body weight 2023-01-04 07:30:00 111.727 kg [facility] BMI 2023-01-04 07:30:00 36.37 kg/m2 [facility] Body height 2023-01-02 09:27:00 175.3 cm [facility] Systolic blood 2022-12-01 08:02:00 121 mm[Hg] [facility] Diastolic blood 2022-12-01 08:02:00 60 mm[Hg] [facility] Heart rate 2022-12-01 08:02:00 79 /min [facility] Body temperature 2022-12-01 08:02:00 35.78 Odilia [facility] Respiratory rate 2022-12-01 08:02:00 18 /min [facility] Oxygen saturation in 2022-12-01 08:02:00 93 /min [facility] Arterial blood by Medical Ce nter Pulse oximetry Body height 2022-11-25 08:46:00 175.3 cm [facility] Body weight 2022-11-25 08:46:00 119.296 kg [facility] BMI 2022-11-25 08:46:00 38.84 kg/m2 [facility] Procedures Procedure Date / Time Performing Clinician Source Performed MAGNESIUM 2023-01-04 05:10:00 Mragie Allred [facility] COMPREHENSIVE METABOLIC 2023-01-04 05:10:00 Margie Allred [facility] PANEL [facility] PHOSPHORUS 2023-01-04 05:10:00 Austyn Bae [facility] CALCIUM, IONIZED 2023-01-04 05:09:00 Austyn Bae [facility] CBC W/PLT COUNT & AUTO 2023-01-04 05:09:00 Austyn Bae [facility] [id number] 2023-01-04 05:09:00 Dipak Arreola [facility] CBC W/PLT COUNT & AUTO 2023-01-04 05:09:00 Bae, [facility] MAGNESIUM 2023-01-03 05:02:[address] [facility] 2023-01-03 05:02:00 Brigida [facility] MAGNESIUM 2023-01-02 05:32:[address] [facility] 2023-01-02 05:32:00 Teofilo [facility] CALCIUM, IONIZED 2023-01-01 05:50:[address] [facility] 2023-01-01 05:12:[address] [facility] MAGNESIUM 2023-01-01 05:12:00 Marisabel Ho [facility] PROTHROMBIN TIME/INR 2023-01-01 05:12:00 Marisabel Ho [facility] HEREDITARY HEMOCHROMATOSIS 2023-01-01 05:12:00 Dipak Arreola [facility] PHOSPHORUS 2023-01-01 05:12:00 [facility] CBC W/PLT COUNT & AUTO 2023-01-01 05:12:00 [facility] CBC W/PLT COUNT & AUTO 2023-01-01 05:12:00 [facility] 2D ECHO W/ DOPPLER 2022-12-31 14:04:45 Evelyn Portillo [facility] (CW/PW/COLOR) [facility] REPORT OF PROCEDURE - 2022-12-31 10:28:58 Gerardo Diaz I [facility] ENDOSCOPY [facility] EGD 2022-12-31 08:14:00 Gerardo Diaz [facility] ukes (ESOPHAGOGASTRODUODENOSCOP Medic al Center Y) [facility] 2022-12-31 04:48:[address] [facility] MAGNESIUM 2022-12-31 04:48:00 [facility] PROTHROMBIN TIME/INR 2022-12-31 04:48:00 Robinsoncounts include [facility] beds at [facility] CALCIUM, IONIZED 2022-12-31 04:48:00 [facility] PHOSPHORUS 2022-12-31 04:48:00 [facility] CBC W/PLT COUNT & AUTO 2022-12-31 04:48:00 [facility] CBC W/PLT COUNT & AUTO 2022-12-31 04:48:00 [facility] HEPATITIS B CORE ANTIBODY, 2022-12-30 16:29:00 Rosalee [facility] TOTAL [facility] HEPATITIS A ANTIBODY, IGG 2022-12-30 16:29:00 [facility] 2022-12-30 16:29:00 Rosalee [facility] HEPATITIS B SURFACE 2022-12-30 16:29:00 Marisabel Ho [facility] ANTIGEN [facility] HEPATITIS B SURFACE 2022-12-30 16:29:00 [facility] ANTIBODY [facility] FERRITIN 2022-12-30 16:29:00 Rosalee [facility] IRON, TIBC, % SAT. 2022-12-30 16:29:00 Marisabel Ho I [facility] (WITHOUT FERRITIN) [facility] CERULOPLASMIN 2022-12-30 16:29:00 Rosalee Marisabel [facility] ALPHA FETOPROTEIN (AFP), 2022-12-30 16:29:00 Marisabel Ho [facility] TUMOR MARKER [facility] ANTI-NUCLEAR ANTIBODY 2022-12-30 16:29:00 Rosalee Marisabel [facility] (EMORY) [facility] ACTIN (SMOOTH MUSCLE) 2022-12-30 16:29:00 Rosalee Marisabel [facility] ANTIBODY, IGG [facility] EMORY TITER AND PATTERN 2022-12-30 16:29:00 Rosalee Marisaebl [facility] MITOCHONDRIAL AB SCREEN 2022-12-30 16:29:00 Robinsoncounts include 234 beds at [facility] Marisabel [facility] luisito [facility] MITOCHONDRIAL AB TITER 2022-12-30 16:29:00 Rosalee Marisabelher Ken burris [facility] [id number]\\, 2022-12-30 15:51:00 Rosalee Marisabel Alina [facility] PROTHROMBIN TIME/INR 2022-12-30 15:51:00 [facility] LACTATE DEHYDROGENASE 2022-12-30 15:48:00 [facility] (LDH) [facility] COMPREHENSIVE METABOLIC 2022-12-30 15:48:00 Rosalee Marisabel [facility] MAGNESIUM 2022-12-30 15:48:00 [facility] CALCIUM, IONIZED 2022-12-30 15:48:00 [facility] PHOSPHORUS 2022-12-30 15:48:00 [facility] CBC W/PLT COUNT & AUTO 2022-12-30 15:48:00 [facility] TYPE AND SCREEN, AUTOMATED 2022-12-30 15:48:00 [facility] CBC W/PLT COUNT & AUTO 2022-12-30 15:48:00 [facility] XR CHEST 1 VIEW PORTABLE / 2022-12-30 14:22:00 Tomas Wei [facility] BEDSIDE [facility] US PARACENTESIS 2022-12-30 12:34:00 Robinsoncounts include [facility] beds at [facility] BODY FLUID CULTURE + GRAM 2022-12-30 12:15:00 [facility] PROTEIN, BODY FLUID 2022-12-30 12:15:00 [facility] ALBUMIN, BODY FLUID 2022-12-30 12:15:00 Saurabhanian, Loli [facility] AMYLASE PERITONEAL FLUID 2022-12-30 12:15:00 Loli Oconnor [facility] MISCELLANEOUS LAB ORDER 2022-12-30 12:15:00 Marisabel Ho [facility] BODY FLUID CELL COUNT WITH 2022-12-30 11:59:00 Marisabel Ho [facility] CT ABDOMEN/PELVIS WITH IV 2022-12-30 10:45:[address] [facility] CONTRAST [facility] BODY FLUID CELL COUNT WITH 2022-12-30 10:01:00 Marisabel Ho [facility] ALBUMIN PLEURAL FLUID 2022-12-30 10:01:00 Major [facility] GLUCOSE PLEURAL FLUID 2022-12-30 10:01:00 Major [facility] LACTATE DEHYDROGENASE 2022-12-30 10:01:00 Tomas Wei [facility] (LD), PLEURAL FLUID [facility] er PH, BODY FLUID 2022-12-30 10:01:00 Tomas Wei [facility] PROTEIN, TOTAL, PLEURAL 2022-12-30 10:01:00 Mark Wei [facility] CYTOLOGY 2022-12-30 09:33:00 Marisabel Ho [facility] BODY FLUID CULTURE + GRAM 2022-12-30 09:27:00 Marisabel Ho [facility] MISCELLANEOUS LAB ORDER 2022-12-30 09:26:00 Lima Spear [facility] BLOOD CULTURE 2022-12-29 23:16:00 Evelyn Portillo [facility] URINALYSIS W/ MICROSCOPIC 2022-12-29 21:23:00 Austyn Bae [facility] PROTEIN, RANDOM URINE 2022-12-29 21:23:00 Austyn Bae [facility] CREATININE, RANDOM URINE 2022-12-29 21:23:00 Austyn Bae [facility] PROCALCITONIN 2022-12-29 17:04:00 [facility] LACTIC ACID, VENOUS 2022-12-29 17:04:00 [facility] XR CHEST 1 VIEW PORTABLE / 2022-12-29 15:48:00 Marisabel Ho [facility] B-TYPE NATRIURETIC FACTOR 2022-12-29 14:58:00 Marisabel Ho [facility] (BNP) [facility] CBC W/PLT COUNT & AUTO 2022-12-29 13:10:00 Robinsoncounts [facility] COMPREHENSIVE METABOLIC 2022-12-29 13:10:[address] [facility] PROTHROMBIN TIME/INR 2022-12-29 13:10:00 Robinsoncounts [facility] MAGNESIUM 2022-12-29 13:10:00 Marisabel Ho [facility] CBC W/PLT COUNT & AUTO 2022-12-29 13:10:00 [facility] PREPARE PLASMA 2022-12-01 23:54:00 Graham [facility] CBC (HEMOGRAM ONLY) 2022-12-01 03:41:[address] [facility] COMPREHENSIVE METABOLIC 2022-12-01 03:41:00 Graham [facility] REPORT OF PROCEDURE - 2022-11-30 12:20:26 Arcenio Lazo [facility] ENDOSCOPY [facility] [place] FLUORO NON-SPECIFIC UP 2022-11-30 09:10:00 Jeannette[facility] TO [address] [place] [address] FINE NEEDLE ASPIRATION BY 2022-11-30 08:48:00 Jeannette Arcenio [facility] FINE NEEDLE ASPIRATE (FNA) 2022-11-30 08:48:00 Jeannette, Arcenio Gold [facility] ESOPHAGOSCOPY, WITH 2022-11-30 08:16:00 Arcenio Lazoed CH I [facility] ENDOSCOPIC ULTRASOUND Medical Ce nter ULTRASOUND, UPPER GI 2022-11-30 08:16:[address] [facility] TRACT, ENDOSCOPIC, WITH [facility] FINE NEEDLE ASPIRATION PROCEDURE W/ C-ARM 2022-11-30 08:16:00 JeannetteMiaif [facility] TRANSFUSE PLASMA 2022-11-30 05:15:[address] [facility] CBC (HEMOGRAM ONLY) 2022-11-30 03:22:00 Graham [facility] COMPREHENSIVE METABOLIC 2022-11-30 03:22:00 Graham [facility] PROTHROMBIN TIME/INR 2022-11-30 03:22:00 Graham [facility] PROTHROMBIN TIME/INR 2022-11-29 22:46:00 [facility] TYPE AND SCREEN, AUTOMATED 2022-11-29 22:46:00 Graham [facility] ANTIBODY SCREEN 2022-11-29 22:46:00 Graham [facility] NM HEPATOBILIARY (HIDA) 2022-11-29 12:01:00 Dipak Arreola [facility] SCAN WITH [facility] [employer] [facility] F[facility]CTION CBC (HEMOGRAM ONLY) 2022-11-29 04:42:00 Graham [facility] METABOLIC 2022-11-29 04:42:00 Graham [facility] CBC (HEMOGRAM ONLY) 2022-11-28 00:55:00 Graham [facility] METABOLIC 2022-11-28 00:55:00 Graham [facility] CBC (HEMOGRAM ONLY) 2022-11-27 04:39:00 Graham [facility] METABOLIC 2022-11-27 04:39:00 [facility] CBC W/PLT COUNT & AUTO 2022-11-26 04:43:00 Rylie Chong [facility] BASIC METABOLIC PANEL 2022-11-26 04:43:00 Chong, [facility] HEPATIC FUNCTION PANEL 2022-11-26 04:43:00 Castillo [facility] CBC W/PLT COUNT & AUTO 2022-11-26 04:43:00 Castillo [facility] PROTHROMBIN TIME/INR 2022-11-26 04:43:00 Castillo [facility] MR ABDOMEN WITHOUT IV 2022-11-25 21:58:00 Castillo [facility] CONTRAST [facility] US ABDOMEN LIMITED 2022-11-25 16:23:00 Castillo [facility] URINE CULTURE 2022-11-25 09:58:00 Castillo [facility] URINALYSIS W/ REFLEX URINE 2022-11-25 09:58:[address] [facility] ABORH, MANUAL 2022-11-25 08:39:00 Leydi Gaitan [facility] CBC W/PLT COUNT & AUTO 2022-11-25 06:36:00 Judi Vigil [facility] CBC W/PLT COUNT & AUTO 2022-11-25 06:36:00 Judi Vigil [facility] COMPREHENSIVE METABOLIC 2022-11-25 06:36:00 Judi Vigil [facility] MAGNESIUM 2022-11-25 06:36:00 Judi Vigil [facility] PHOSPHORUS 2022-11-25 06:36:00 [facility] PROTHROMBIN TIME/INR 2022-11-25 06:36:00 [facility] BILIRUBIN, DIRECT 2022-11-25 06:36:00 Kelly Finley [facility] TYPE AND SCREEN, AUTOMATED 2022-11-25 06:35:00 Kirk Vigil [facility] Plan of Care Planned Activity Planned Date Details Comments Source Future Scheduled 2023-12-[address] [facility] Test 00:00[facility]00 [facility] (12+) [code = Tobacco Cessation Counseling and Screening (12+)] Future Scheduled 2023-07-09 [facility] Test 02:09:46 malignant neoplasm of colon (procedure) [code = 574481108] Future Scheduled 2023-07-09 [facility] Test 02:09:46 malignant neoplasm of colon (procedure) [code = 126637173] Future Scheduled 2023-07-09 [facility] Test 02:09:46 malignant neoplasm of colon (procedure) [code = 586035058] Future Scheduled 2023-07-09 COVID-19 VACCINE (#1) [facility] Test 02:09:46 [code = COVID-19 VACCINE (#1)] Future Scheduled 2023-07-09 Screening for [facility] Test 02:09:46 malignant neoplasm of cervix (procedure) [code = 000314649] Future Scheduled 2023-07-09 BREAST CANCER [facility] Test 02:09:46 SCREENING [code = BREAST CANCER SCREENING] Future Scheduled 2023-07-09 Screening for [facility] Test 02:09:46 malignant neoplasm of colon (procedure) [code = 887658207] Future Scheduled 2023-07-09 Screening for [facility] Test 02:09:46 malignant neoplasm of colon (procedure) [code = 848717231] Future Scheduled 2023-07-09 SHINGLES VACCINES (1 [facility] Test 02:09:46 of 2) [code = SHINGLES VACCINES (1 of 2)] Future Scheduled 2023-07-09 INFLUENZA VACCINE (#1) [facility] Test 02:09:46 [code = INFLUENZA VACCINE (#1)] Future Scheduled 2023-05-18 Screening for [facility] Test 08:41:31 malignant neoplasm of colon (procedure) [code = 448278402] Future Scheduled 2023-05-18 SHINGLES VACCINES (1 [facility] Test 08:41:31 of 2) [code = SHINGLES VACCINES (1 of 2)] Future Scheduled 2023-05-18 INFLUENZA VACCINE (#1) [facility] Test 08:41:31 [code = INFLUENZA VACCINE (#1)] Future Scheduled 2023-05-18 [facility] Test 08:41:31 malignant neoplasm of colon (procedure) [code = 307460442] Future Scheduled 2023-05-18 [facility] Test 08:41:31 malignant neoplasm of colon (procedure) [code = 873090829] Future Scheduled 2023-05-18 [facility] Test 08:41:31 malignant neoplasm of colon (procedure) [code = 600797989] Future Scheduled 2023-05-18 [facility]19 [facility] Test 08:41:31 [code = COVID-19 VACCINE (#1)] Future Scheduled 2023-05-18 [facility] Test 08:41:31 malignant neoplasm of cervix (procedure) [code = 794842690] Future Scheduled 2023-05-18 BREAST CANCER [facility] Test 08:41:31 SCREENING [code = BREAST CANCER SCREENING] Future Scheduled 2023-05-18 [facility] Test 08:41:31 malignant neoplasm of colon (procedure) [code = 112153485] Future Scheduled 2023-05-[address] [...] (Season Ended)] Future Scheduled 2023-04-21 [facility] for [facility] Test 16:10:33 malignant neoplasm of colon (procedure) [code = 783393481] Future Scheduled 2023-04-21 [facility] Test 16:10:33 malignant neoplasm of colon (procedure) [code = 212172892] Future Scheduled 2023-04-21 [facility] Test 16:10:33 malignant neoplasm of colon (procedure) [code = 598133926] Future Scheduled 2023-04-21 COVID-19 VACCINE (#1) [facility] Test 16:10:33 [code = COVID-19 VACCINE (#1)] Future Scheduled 2023-04-21 [facility] Test 16:10:33 malignant neoplasm of cervix (procedure) [code = 345345510] Future Scheduled 2023-04-21 BREAST CANCER [facility] Test 16:10:33 SCREENING [code = BREAST CANCER SCREENING] Future Scheduled 2023-04-21 [facility] Test 16:10:33 malignant neoplasm of colon (procedure) [code = 323674762] Future Scheduled 2023-04-21 [facility] Test 16:10:33 malignant neoplasm of colon (procedure) [code = 515666682] Future Scheduled 2023-04-21 SHINGLES VACCINES (1 [facility] Test 16:10:33 of 2) [code = SHINGLES VACCINES (1 of 2)] Future Scheduled 2023-04-21 [facility]ACCINE [facility] 16:10:33 [code = INFLUENZA VACCINE] Future Scheduled 2023-04-12 [facility] Test 15:44:48 malignant neoplasm of colon (procedure) [code = 703231590] Future Scheduled 2023-04-12 [facility] Test 15:44:48 malignant neoplasm of colon (procedure) [code = 349556338] Future Scheduled 2023-04-12 [facility] Test 15:44:48 malignant neoplasm of colon (procedure) [code = 794287385] Future Scheduled 2023-04-12 COVID-19 VACCINE (#1) [facility] Test 15:44:48 [code = COVID-19 VACCINE (#1)] Future Scheduled 2023-04-12 [facility] Test 15:44:48 malignant neoplasm of cervix (procedure) [code = 447285832] Future Scheduled 2023-04-12 BRE[facility] CANCER [facility] Test 15:44:48 SCREENING [code = BREAST CANCER SCREENING] Future Scheduled 2023-04-12 [facility] Test 15:44:48 malignant neoplasm of colon (procedure) [code = 367219283] Future Scheduled 2023-04-12 [facility] Test 15:44:48 malignant neoplasm of colon (procedure) [code = 014116629] Future Scheduled 2023-04-12 SHINGLES VACCINES ([address] [facility] Test 15:44:48 of 2) [code = SHINGLES VACCINES (1 of 2)] Future Scheduled 2023-04-12 INFLUENZA VACCINE [facility] Test 15:44:48 [code = INFLUENZA VACCINE] Future Scheduled 2023-04-01 [facility] Test 11:23:59 malignant neoplasm of colon (procedure) [code = 698789489] Future Scheduled 2023-04-01 [facility] Test 11:23:59 malignant neoplasm of colon (procedure) [code = 749329329] Future Scheduled 2023-04-01 [facility] Test 11:23:59 malignant neoplasm of colon (procedure) [code = 161659519] Future Scheduled 2023-04-01 COVID-19 [facility]ACCINE (#[facility]) [facility] Test 11:23:59 [code = COVID-19 VACCINE (#1)] Future Scheduled 2023-04-01 [facility] Test 11:23:59 malignant neoplasm of cervix (procedure) [code = 008314648] Future Scheduled 2023-04-01 [facility] Test 11:23:59 SCREENING [code = BREAST CANCER SCREENING] Future Scheduled 2023-04-01 [facility] Test 11:23:59 malignant neoplasm of colon (procedure) [code = 593717330] Future Scheduled 2023-04-01 [facility] Test 11:23:59 malignant neoplasm of colon (procedure) [code = 263772249] Future Scheduled 2023-04-01 [facility]LES [facility]ACCINES ([facility] 11:23:59 of 2) [code = SHINGLES VACCINES (1 of 2)] Future Scheduled 2023-04-01 [facility]ZA VACCINE [facility] 11:23:59 [code = INFLUENZA VACCINE] Future Scheduled 2023-03-11 [facility] Test 10:38:56 malignant neoplasm of colon (procedure) [code = 597309845] Future Scheduled 2023-03-11 [facility] Test 10:38:56 malignant neoplasm of colon (procedure) [code = 427974280] Future Scheduled 2023-03-11 [facility] Test 10:38:56 malignant neoplasm of colon (procedure) [code = 106050846] Future Scheduled 2023-03-11 COVID-19 VACCINE (#1) [facility] Test 10:38:56 [code = COVID-19 VACCINE (#1)] Future Scheduled 2023-03-11 [facility] Test 10:38:56 malignant neoplasm of cervix (procedure) [code = 863714386] Future Scheduled 2023-03-11 BRE[facility] Test 10:38:56 SCREENING [code = BREAST CANCER SCREENING] Future Scheduled 2023-03-11 [facility] Test 10:38:56 malignant neoplasm of colon (procedure) [code = 369727637] Future Scheduled 2023-03-11 [facility] Test 10:38:56 malignant neoplasm of colon (procedure) [code = 384093148] Future Scheduled 2023-03-11 SHINGLES VACCINES (1 [facility] 10:38:56 of 2) [code = SHINGLES VACCINES (1 of 2)] Future Scheduled 2023-03-11 [facility]UENZA VACCINE [facility] 10:38:56 [code = INFLUENZA VACCINE] Future Scheduled 2023-02-14 [facility] Test 23:01:21 malignant neoplasm of colon (procedure) [code = 507698755] Future Scheduled 2023-02-14 [facility] Test 23:01:21 malignant neoplasm of colon (procedure) [code = 776922788] Future Scheduled 2023-02-14 [facility] Test 23:01:21 malignant neoplasm of colon (procedure) [code = 764411761] Future Scheduled 2023-02-14 COVID-19 VACCINE (#1) [facility] Test 23:01:21 [code = COVID-19 VACCINE (#1)] Future Scheduled 2023-02-14 [facility] Test 23:01:21 malignant neoplasm of cervix (procedure) [code = 883269325] Future Scheduled 2023-02-14 BRE[facility] Test 23:01:21 SCREENING [code = BREAST CANCER SCREENING] Future Scheduled 2023-02-14 [facility] Test 23:01:21 malignant neoplasm of colon (procedure) [code = 461577937] Future Scheduled 2023-02-14 [facility] Test 23:01:21 malignant neoplasm of colon (procedure) [code = 528268263] Future Scheduled 2023-02-14 SHINGLES VACCINES (1 [facility] 23:01:21 of 2) [code = SHINGLES VACCINES (1 of 2)] Future Scheduled 2023-02-14 IN[facility]UENZA VACCINE [facility] 23:01:21 [code = INFLUENZA VACCINE] Future Scheduled 2023-01-06 COVID-19 VACCINE (#1) [facility] Test 08:48:32 [code = COVID-19 VACCINE (#1)] Future Scheduled 2023-01-06 [facility] Test 08:48:32 malignant neoplasm of cervix (procedure) [code = 793323282] Future Scheduled 2023-01-06 BRE[facility] Test 08:48:32 SCREENING [code = BREAST CANCER SCREENING] Future Scheduled 2023-01-06 COLONOSCOPY SCREENING [facility] Test 08:48:32 [code = COLONOSCOPY SCREENING] Future Scheduled 2023-01-06 SHINGLES VACCINES ([address] [facility] Test 08:48:32 of 2) [code = SHINGLES VACCINES (1 of 2)] Future Scheduled 2023-01-06 INFLUENZA VACCINE [facility] Test 08:48:32 [code = INFLUENZA VACCINE] Future Scheduled 2022-12-17 COVID-19 VACCINE (#1) [facility] Test 12:12:44 [code = COVID-19 VACCINE (#1)] Future Scheduled 2022-12-17 [facility] Test 12:12:44 malignant neoplasm of cervix (procedure) [code = 501267526] Future Scheduled 2022-12-17 BRE[facility]ER [facility] Test 12:12:44 SCREENING [code = BREAST CANCER SCREENING] Future Scheduled 2022-12-17 COLONOSCOPY SCREENING [facility] Test 12:12:44 [code = COLONOSCOPY SCREENING] Future Scheduled 2022-12-17 SHINGLES VACCINES ([address] [facility] Test 12:12:44 of 2) [code = SHINGLES VACCINES (1 of 2)] Future Scheduled 2022-12-17 INFLUENZA VACCINE [facility] Test 12:12:44 [code = INFLUENZA VACCINE] Future Scheduled 2022-12-17 COVID-19 VACCINE (#1) [facility] Test 12:12:44 [code = COVID-19 VACCINE (#1)] Future Scheduled 2022-12-17 [facility] Test 12:12:44 malignant neoplasm of cervix (procedure) [code = 517600300] Future Scheduled 2022-12-17 BREAST CANCER [facility] Test 12:12:44 SCREENING [code = BREAST CANCER SCREENING] Future Scheduled 2022-12-17 COLONOSCOPY SCREENING [facility] Test 12:12:44 [code = COLONOSCOPY SCREENING] Future Scheduled 2022-12-17 SHINGLES VACCINES (1 Met [facility] Test 12:12:44 of 2) [code = SHINGLES VACCINES (1 of 2)] Future Scheduled 2022-12-17 INFLUENZA VACCINE [facility] Test 12:12:44 [code = INFLUENZA VACCINE] Future Scheduled 2022-09-05 COLONOSCOPY SCREENING [facility] Test 11:52:03 [code = COLONOSCOPY SCREENING] Future Scheduled 2022-09-05 SHINGLES VACCINES (1 Met [facility] Test 11:52:03 of 2) [code = SHINGLES VACCINES (1 of 2)] Future Scheduled 2022-09-05 INFLUENZA VACCINE Method [facility] Test 11:52:03 [code = INFLUENZA VACCINE] Future Scheduled 2022-09-05 COVID-19 VACCINE (#1) [facility] Test 11:52:03 [code = COVID-19 VACCINE (#1)] Future Scheduled 2022-09-05 Screening for [facility] Test 11:52:03 malignant neoplasm of cervix (procedure) [code = 603218604] Future Scheduled 2022-09-05 BREAST CANCER [facility] Test 11:52:03 SCREENING [code = BREAST CANCER [...] [facility] Test 00:00:00 (procedure) [code = [facility] 14129283] Future Scheduled [address] [facility] 00:[facility]:00 (procedure) [code = [facility] 34029499] Future Scheduled [address] [facility] Test 00:00:00 (procedure) [code = [facility] 97826359] Future Scheduled [address] [facility] Test 00:00:00 malignant [facility] cervix (procedure) [code = 061364215] Future Scheduled [address] [facility] Test 00:00:00 malignant [facility] cervix (procedure) [code = 630333101] Future Scheduled [address] [facility] Test 00:00:00 [facility] [code = 249630454] Future Scheduled 1983 DTAP/TDAP/TD VACCINES [facility] [...] [facility] l Center breast (procedure) [code = 782606116] Future Scheduled [address] [facility] Test 00:00:00 (combo) [code = CT Medical C enter Colonography (combo)] Future Scheduled [address] [facility] Test 00:00:00 malignant [facility] colon (procedure) [code = 857860795] Future Scheduled [address] [facility] Test 00:00:00 malignant [facility] colon (procedure) [code = 242441298] Future Scheduled [address] [facility] Test 00:00:00 malignant [facility] colon (procedure) [code = 315245955] Future Scheduled [address] [facility] Test 00:00:00 malignant [facility] colon (procedure) [code = 168091490] Future Scheduled 1964 Sigmoidoscopy [facility] Medical Cent[facility] r Future Scheduled [address] [facility] Test 00:00:00 malignant neoplasm [facility] breast (procedure) [code = 644069504] Future Scheduled [address] [facility] 00:00:00 (combo) [code = CT Medical C enter Colonography (combo)] Future Scheduled [address] [facility] Test 00:00:00 malignant [facility] colon (procedure) [code = 271118451] Future Scheduled [address] [facility] Test 00:00:00 [facility] colon (procedure) [code = 232901667] Future Scheduled [address] [facility] Test 00:00:00 [facility] colon (procedure) [code = 162213957] Future Scheduled [address] [facility] Test 00:00:00 malignant ne[facility] colon (procedure) [code = 199208069] Future Scheduled 1964 [facility] Medical Cent[facility] r Future Scheduled [address] [facility] Test 00:00:00 malignant [facility] breast (procedure) [code = 185870961] Future Scheduled [address] [facility] 00:00:00 (combo) [code = CT Medical C enter Colonography (combo)] Future Scheduled [address] [facility] Test 00:00:00 [facility] colon (procedure) [code = 170894529] Future Scheduled [address] [facility] Test 00:00:00 malignant neoplasm of [facility] colon (procedure) [code = 335426545] Future Scheduled [address] [facility] Test 00:00:00 malignant neoplasm of [facility] colon (procedure) [code = 781736354] Future Scheduled [address] [facility] Test 00:00:00 malignant neoplasm of [facility] colon (procedure) [code = 115075132] Future Scheduled 1964 [facility]] Medical Wali r Encounters Start End Encounter Admission Attending Care Care Encounter Source Date/Time Date/Time Type Type Clinicians Facility Department ID 2023-07-10 Inpatient JOLLY MARY [facility] [id number] [facility] 08:21:43 KADI 2023-05-31 Inpatient MILO TAYLOR [facility] [id number] SLE 19:08:07 ZAKIA 2023-05-30 Inpatient ER GEORGE, [facility] [id number] [facility] 13:32:25 LUPE 2023-05-30 Inpatient ER ZEE, [facility]H [facility] [id number] SLEH 05:24:23 APRYL 2023-05-27 Inpatient ER OSVALDO, SLEH [facility] [id number] SLEH 10:03:20 DANUTA 2023-05-17 Inpatient ER CARLOS RAY [facility] [id number] SLEH 10:10:22 2023-05-13 Inpatient ER BLACK, SLEH SLEH [id number] SLEH 17:57:59 JONI-U 2023-05-13 Inpatient ER BLACK, SLEH SLEH [id number] SLEH 17:13:16 [facility] 2023-03-21 Inpatient ER BLACK, SLEH SLEH [id number] SLEH 16:28:17 [facility] 2023-03-21 Inpatient ER DUSTY, SLEH SLEH [id number] SLEH 13:20:03 [facility] 2023-03-21 Inpatient ER DUSTY, SLEH SLEH [id number] SLEH 12:01:44 [facility] 2023-03-19 Inpatient ER BRANN, SLEH SLEH [id number] SLEH 06:54:39 [facility] 2023-03-19 Inpatient ER BRANN, SLEH SLEH [id number] SLEH 06:54:33 [place] 2023-03-19 Inpatient ER HERMAN, SLEH SLEH [id number] SLEH 05:45:27 PAUL 2023-02-17 Inpatient ER HAMIDA, SLEH SLEH [id number] SLEH 07:06:50 [facility] 2023-02-17 Inpatient ER HAMIDA, SLEH SLEH [id number] SLEH 07:04:58 [facility] 2023-10-06 2023-10-06 Outpatient EL SLEH SLEH [id number] [facility]H 00:00:00 00:00:00 2023-10-06 2023-10-06 Outpatient EL SLEH SLEH [id number] [facility]H 00:00:00 00:00:00 2023-08-11 2023-08-11 Outpatient EL SLEH SLEH [id number] [facility]H 00:00:00 00:00:00 2023-08-11 2023-08-11 Outpatient EL SLEH SLEH [id number] [facility]H 00:00:00 00:00:00 2023-08-08 2023-08-08 Outpatient EL SLEH SLEH [id number] SLEH 00:00:00 00:00:00 2023-08-05 2023-08-05 Outpatient EL SLEH SLEH [id number] SLEH 00:00:00 00:00:00 2023-08-05 2023-08-05 Outpatient EL SLEH SLEH [id number] SLEH 00:00:00 00:00:00 2023-08-01 2023-08-01 Outpatient EL SLE SLEH [id number] SLEH 00:00:00 00:00:00 2023-07-28 2023-07-28 Outpatient EL SLE SLEH [id number] SLEH 00:00:00 00:00:00 2023-07-28 2023-07-28 Outpatient EL SLE SLEH [id number] SLEH 00:00:00 00:00:00 2023-07-25 2023-07-25 Outpatient EL SLE SLEH [id number] SLEH 00:00:00 00:00:00 2023-07-21 2023-07-21 Outpatient JOLLY SLE SLEH [id number] SLEH 00:00:00 00:00:00 2023-07-21 2023-07-21 Outpatient EL SLE SLE [id number] SLEH 00:00:00 00:00:00 2023-07-19 2023-07-19 Outpatient JOLLY SLE SLE [id number] SLEH 00:00:00 00:00:00 2023-07-19 2023-07-19 Outpatient GLENN MARTINS SLE [id number] SLEH 00:00:00 00:00:00 BEBE 2023-07-19 2023-07-19 Outpatient JOLLY SLE SLE [id number] SLEH 00:00:00 00:00:00 2023-07-19 2023-07-19 Outpatient GLENN MARTINS SLE [id number] SLEH 00:00:00 00:00:00 ROBERTOU-RAI 2023-07-18 2023-07-18 Outpatient VIRGILIO MARTINS SLE [id number] SLEH 00:00:00 00:00:00 TZU-RAI 2023-07-18 2023-07-18 Outpatient [facility] [id number] [facility] 00:00:00 00:00:00 2023-07-14 2023-07-14 Outpatient EL WAYNE SLE SLE [id number] SLEH 10:45:12 23:59:00 JONI-UJalil 2023-07-14 2023-07-14 Outpatient GLENN MARTINS SLE [id number] SLE 06:42:04 10:44:00 ELISSA-RAI 2023-07-14 2023-07-14 Outpatient VIRGILIO MARTINS SLE [id number] SLEH 06:41:35 06:41:35 ELISSA-RAI 2023-07-05 2023-07-12 [facility] [id number] 01:05:00 12:21:00 KADI 2023-07-11 2023-07-11 Outpatient EL [facility] [place] [id number] SLE 06:07:22 06:07:22 KADI 2023-07-10 2023-07-10 Outpatient EL CARLOS RAY SLE SLE [id number] SLEH 09:44:51 09:44:51 2023-07-09 2023-07-09 Outpatient EL TYRA SLE SLE [id number] SLE 00:00:00 00:00:00 KADI 2023-07-07 2023-07-07 Outpatient EL TYRA SLE SLE [id number] SLE 15:59:35 15:59:35 KADI 2023-07-07 2023-07-07 Outpatient JOLLY [facility] SLE [id number] SLEH 00:00:00 00:00:00 ROBERTOU-RAI 2023-07-07 2023-07-07 Outpatient GLENN [facility] [place] [id number] SLEH 00:00:00 00:00:00 TZU-RAI 2023-07-07 2023-07-07 Outpatient JOLLY [facility] SLEH SLEH [id number] SLEH 00:00:00 00:00:00 TZU-RAI 2023-07-07 2023-07-07 Outpatient JOLLY COX SLEH SLEH [id number] SLEH 00:00:00 00:00:00 TZU-RAI 2023-07-06 2023-07-06 Outpatient JOLLY GUEVARA SLEH SLEH [id number] SLEH 11:54:59 11:54:59 KEANU 2023-07-05 2023-07-05 Outpatient EL ISMAEL SLEH SLEH [id number] SLEH 14:53:12 14:53:12 KEANU 2023-07-05 2023-07-05 Emergency JOLLY GAXIOLA SLEH SLEH [id number] SLEH 01:39:35 01:39:35 GOLDEN 2023-07-05 2023-07-05 Outpatient JOLLY GAXIOLA SLEH SLEH [id number] SLEH 01:28:55 01:28:55 GOLDEN 2023-07-04 2023-07-04 Outpatient JOLLY VAZQUEZ SLEH SLEH [id number] SLEH 10:38:23 23:59:00 LUPE 2023-07-04 2023-07-04 Outpatient JOLLY COX SLEH SLEH [id number] SLEH 08:06:23 10:37:00 ROBERTOU-RAI 2023-06-30 2023-06-30 Outpatient JOLLY TAYLOR SLEH SLEH [id number] SLEH 12:12:53 23:59:00 DANUTA 2023-06-30 2023-06-30 Outpatient EL SLEH SLEH [id number] SLEH 13:33:52 13:33:52 2023-06-30 2023-06-30 Outpatient JOLLY COX SLEH SLEH [id number] SLEH 08:07:43 12:11:00 TZU-RAI 2023-06-30 2023-06-30 Outpatient JOLLY COX SLEH SLEH [id number] SLEH 08:07:12 08:06:00 TZU-RAI 2023-06-27 2023-06-28 Emergency ER BICETTE, SLEH Emergency [id number] SLEH 22:50:00 06:17:00 [facility] 2023-06-28 2023-06-28 Emergency EL JOSÉ LUIS, SLEH SLEH [id number] SLEH 03:52:10 03:52:10 [facility] 2023-06-28 2023-06-28 Emergency EL JOSÉ LUIS SLEH SLEH [id number] SLEH 03:52:05 03:52:05 [facility] 2023-06-28 2023-06-28 Outpatient JOLLY NORWOOD, SLEH SLEH [id number] SLEH 00:10:53 00:10:53 PAO 2023-06-27 2023-06-27 Outpatient JOLLY TAYLOR SLEH SLEH [id number] SLEH 08:43:28 22:49:00 DANUTA 2023-06-27 2023-06-27 Outpatient JOLLY COX SLEH SLEH [id number] SLEH 07:47:59 08:42:00 ROBERTOU-RAI 2023-06-23 2023-06-23 Outpatient JOLLY TAYLOR, SLEH SLEH [id number] SLEH 09:31:56 23:59:00 DANUTA 2023-06-23 2023-06-23 Outpatient JOLLY COX SLEH SLEH [id number] SLEH 07:00:50 09:30:00 ROBERTOU-RAI 2023-06-23 2023-06-23 Outpatient JOLLY COX SLEH SLEH [id number] SLEH 07:00:38 09:30:00 ROBERTOU-RAI 2023-06-20 2023-06-20 Emergency ER MARY HARP SLEH Emergency [id number] SLEH 09:15:00 20:10:00 2023-06-20 2023-06-20 Outpatient JOLLY BLACK, SLEH SLEH [id number] SLEH 17:11:31 17:11:31 MARSHA 2023-06-20 2023-06-20 Emergency JOLLY GARCIA SLEH SLEH [id number] SLEH 14:41:30 14:41:30 DANUTA 2023-06-20 2023-06-20 Emergency EL RADHA, SLEH SLEH [id number] SLEH 12:08:48 12:08:48 DANUTA 2023-06-20 2023-06-20 Outpatient JOLLY GARCIA SLEH SLEH [id number] SLEH 09:48:47 09:48:47 DANUTA 2023-06-20 2023-06-20 Outpatient JOLLY COX SLEH SLEH [id number] SLEH 00:00:00 00:00:00 ROBERTOU-RAI 2023-06-16 2023-06-16 Outpatient JOLLY COX SLSJeanne SLSL [id number] SLSL 08:14:27 23:59:00 ROBERTOU-RAI 2023-06-16 2023-06-16 Outpatient KORIN MARTINSL SLSL [id number] SLSL 00:00:00 00:00:00 ROBERTOU-RAI 2023-06-15 2023-06-15 Outpatient JOLLY VAZQUEZ SLEH SLEH [id number] SLEH 16:47:28 23:59:00 LUPE 2023-06-15 2023-06-15 Outpatient JOLLY ALFREDO SLEH SLEH [id number] SLEH 12:42:18 16:46:00 SAMANTHA 2023-06-14 2023-06-14 Outpatient EL SLEH SLE [id number] SLEH 00:00:00 00:00:00 2023-06-13 2023-06-13 Outpatient JOLLY BLACK SLEH SLEH [id number] SLEH 10:05:16 23:59:00 MARSHA 2023-06-13 2023-06-13 Outpatient EL SLEH SLEH [id number] SLEH 10:56:23 10:56:23 2023-06-13 2023-06-13 Outpatient JOLLY ALFREDO SLEH SLEH [id number] SLEH 08:03:50 10:04:00 SAMANTHA 2023-06-10 2023-06-10 Outpatient JOLLY ALFREDO SLEH SLEH [id number] SLEH 00:00:00 00:00:00 SAMANTHA 2023-06-10 2023-06-10 Outpatient JOLLY KELLIMarcin SLEH SLEH [id number] SLEH 00:00:00 00:00:00 SAMUEL 2023-06-09 2023-06-09 Outpatient KIMMY MARTINS SLSL [id number] SLSL 11:12:38 23:59:00 TZU-RAI 2023-06-09 2023-06-09 Outpatient KIMMY MARTINS SLSL [id number] SLSL 10:46:08 11:11:00 TZU-RAI 2023-06-09 2023-06-09 Outpatient KIMMY MARTINS SLSL [id number] SLSL 10:45:42 10:45:42 TZU-RAI 2023-06-07 2023-06-07 Outpatient JOLLY COX SLE SLE [id number] SLEH 12:11:39 23:59:00 TZU-RAI 2023-06-07 2023-06-07 Outpatient JOLLY COX SLEH SLE [id number] SLEH 09:13:01 09:13:01 TZU-RAI 2023-06-06 2023-06-06 Outpatient JOLLY BLACK SLE SLE [id number] SLEH 11:33:09 23:59:00 JONI-UJalil 2023-06-06 2023-06-06 Outpatient JOLLY ALFREDO SLE SLE [id number] SLEH 08:36:02 11:32:00 SAMANTHA 2023-06-03 2023-06-03 Outpatient EL GEORGE, SLE SLE [id number] SLEH 16:39:23 23:59:00 LUPE 2023-06-03 2023-06-03 Outpatient JOLLY ALFREDO SLE SLE [id number] SLEH 10:49:10 16:38:00 SAMANTHA 2023-06-03 2023-06-03 Outpatient EL CHLOE SLE SLE [id number] SLEH 10:48:58 10:48:58 SAMUEL 2023-05-26 2023-06-02 [id number] [facility] 16:22:00 13:17:00 ANANDA 2023-05-31 2023-05-31 Outpatient EL SLEH SLE [id number] SLEH 00:00:00 00:00:00 2023-05-31 2023-05-31 Outpatient SLE SLEH [id number] SLEH 00:00:00 00:00:00 2023-05-30 2023-05-30 Inpatient ER BRANDON, SLEH SLEH [id number] SLEH 11:51:19 23:59:00 ZAKIA 2023-05-30 2023-05-30 Inpatient ER BRANDON, SLEH SLEH [id number] SLEH 11:50:53 00:00:00 ZAKIA 2023-05-30 2023-05-30 Outpatient JOLLY ALFREDO SLEH SLEH [id number] SLEH 00:00:00 00:00:00 SAMANTHA 2023-05-27 2023-05-27 Inpatient ER , SLEH SLEH [id number] SLEH 08:02:45 00:00:00 RIGO 2023-05-27 2023-05-27 Inpatient ER , SLEH SLEH [id number] SLEH 08:02:37 00:00:00 RIGO 2023-05-27 2023-05-27 Outpatient JOLLY ALFREDO SLEH SLEH [id number] SLEH 00:00:00 00:00:00 SAMANTHA 2023-05-27 2023-05-27 Outpatient JOLLY CORONA SLEH SLEH [id number] SLEH 00:00:00 00:00:00 SAMUEL 2023-05-26 2023-05-26 Emergency ER ETTA SLEH SLEH [id number] SLEH 17:16:04 17:16:04 DAVID 2023-05-25 2023-05-26 Emergency ER [facility] SLE Emergency 20 [id number] SLEH 18:49:00 04:00:00 , JEAN 2023-05-23 2023-05-23 Outpatient JOLLY TAYLOR SLEH SLEH [id number] SLEH 09:10:26 23:59:00 DANUTA 2023-05-23 2023-05-23 Outpatient JOLLY ALFREDO SLEH SLEH [id number] SLEH 08:08:23 09:09:00 SAMANTHA 2023-05-20 2023-05-20 Outpatient CARLOS HANLEY SLEH SLEH [id number] SLEH 13:12:30 23:59:00 2023-05-20 2023-05-20 Outpatient EL LISA SLE SLE [id number] SLEH 08:37:29 13:11:00 [facility] 2023-05-20 2023-05-20 Outpatient JOLLY ALFREDO SLEH SLE [id number] SLEH 07:56:53 07:59:00 SAMANTHA 2023-05-20 2023-05-20 Outpatient JOLLY CORONA SLEH SLE [id number] SLEH 07:56:34 07:59:00 SAMUEL 2023-05-13 2023-05-18 Inpatient ER FEMI, SLE Emergency 20 [id number] SLEH 09:46:00 17:00:00 JIM 2023-05-17 2023-05-17 Inpatient ER BRETT JENSEN SLEH SLE [id number] SLEH 08:32:28 00:00:00 2023-05-17 2023-05-17 Out[facility] [id number] SLSL 00:00:00 00:00:00 SAMANTHA 2023-05-13 2023-05-13 Emergency ER FORNAGE, SLEH SLE [id number] SLEH 14:12:01 14:12:01 YULISA 2023-05-13 2023-05-13 Emergency ER FORNAGE, SLEH SLE [id number] SLEH 14:01:15 14:01:15 YULISA 2023-05-13 2023-05-13 Emergency ER FORNAGE, SLEH SLE [id number] SLEH 11:23:31 11:23:31 YULISA 2023-05-13 2023-05-13 Emergency ER FORNAGE, SLEH SLE [id number] SLEH 10:18:21 10:18:21 YULISA 2023-05-13 2023-05-13 Outpatient JOLLY ALFREDO SLE SLE [id number] SLEH 00:00:00 00:00:00 SAMANTHA 2023-05-13 2023-05-13 Outpatient EL CHLOE SLEH SLE [id number] SLEH 00:00:00 00:00:00 SAMUEL 2023-05-13 2023-05-13 Outpatient EL CHLOE SLE SLE [id number] SLEH 00:00:00 00:00:00 SAMUEL 2023-05-13 2023-05-13 Outpatient EL SLEH SLEH [id number] SLEH 00:00:00 00:00:00 2023-05-12 2023-05-12 Outpatient EL SLEH SLE [id number] SLEH 10:39:15 10:39:22 2023-05-12 2023-05-12 Outpatient EL SLEH SLE [id number] SLEH 00:00:00 00:00:00 2023-05-10 2023-05-11 Outpatient ER BRANN, SLE Emergency [id number] SLEH 00:41:00 14:01:00 OLEGOPHER 2023-05-10 2023-05-10 Outpatient ER GEORGE SLE SLE [id number] SLEH 11:59:09 11:59:09 LUPE 2023-05-10 2023-05-10 Outpatient ER NALAM SLE SLE [id number] SLEH 09:15:25 09:15:25 ABRAM 2023-05-10 2023-05-10 Outpatient ER BLACKGLENN [facility] [place] [id number] SLEH 09:14:23 09:14:23 THUYEN 2023-05-10 2023-05-10 Emergency ER VIRGILIO BLACK SLE [id number] [facility] 04:55:45 04[facility]55:45 [facility] 2023-05-10 Emergency ER WAYNE SLE SLE [id number] SLEH 02:29:41 02:29:41 [facility]23-05-10 2023-05-10 Emergency ER [facility] [id number] SLEH 01:38:35 01:38:35 THUYEN 2023-05-09 2023-05-09 Outpatient EL KATJA SLE Surgery [id number] SLEH 06:44:00 16:39:00 HIRAM 2023-05-09 2023-05-09 Outpatient EL GEORGE, [facility] [place] [id number] SLEH 09:38:48 09:38:48 LUPE 2023-05-09 2023-05-09 Outpatient EL KATJA SLEH SLEH [id number] SLEH 06:04:26 06:04:26 HIRAM 2023-05-06 2023-05-06 Outpatient JOLLY BLACK SLEH SLEH [id number] SLEH 14:16:44 23:59:00 JONI-UY 2023-05-06 2023-05-06 Outpatient JOLLY CORONA SLEH SLEH [id number] SLEH 08:03:11 14:15:00 SAMUEL 2023-05-06 2023-05-06 Outpatient JOLLY ALFREDO SLEH SLEH [id number] SLEH 08:02:59 08:02:00 SAMANTHA 2023-05-06 2023-05-06 Outpatient JOLLY SLEH SLEH [id number] SLEH 00:00:00 00:00:00 2023-05-06 2023-05-06 Outpatient JOLLY [facility] SLEH [id number] SLEH 00:00:00 00:00:00 2023-05-02 2023-05-02 Outpatient JOLLY BLACK [facility] [id number] SLEH 10:32:06 23:59:00 JONI-UY 2023-05-02 2023-05-02 Outpatient JOLLY ALFREDO SLEH SLEH [id number] SLEH 08:08:40 10:31:00 SAMANTHA 2023-04-29 2023-04-29 Outpatient JOLLY TAYLOR SLEH SLEH [id number] SLEH 11:05:34 23:59:00 DANUTA 2023-04-29 2023-04-29 Outpatient JOLLY ALFREDO SLEH SLEH [id number] SLEH 07:54:36 11:04:00 SAMANTHA 2023-04-25 2023-04-25 Outpatient JOLLY TAYLOR SLEH SLEH [id number] SLEH 10:41:00 23:59:00 DANUTA 2023-04-25 2023-04-25 Outpatient JOLLY ALFREDO SLEH SLEH [id number] SLEH 08:15:21 10:40:00 SAMANTHA 2023-04-22 2023-04-22 Outpatient CARLOS HANLEY SLEH SLEH [id number] SLEH 13:56:22 23:59:00 2023-04-22 2023-04-22 Outpatient JOLLY ALFREDO SLE SLE [id number] SLEH 08:46:59 13:55:00 SAMANTHA 2023-04-22 2023-04-22 Outpatient JOLLY ALFREDO SLEH SLE [id number] SLEH 08:46:15 13:55:00 SAMANTHA 2023-04-21 2023-04-21 Outpatient EL PATRICIA, SLE SLE [id number] SLEH 08:48:47 23:59:00 AMIE 2023-04-19 2023-04-19 Outpatient JOLLY ALFREDO [facility] [place] [id number] SLEH 13:47:04 13:47:04 SAMANTHA 2023-04-18 2023-04-18 Emergency ER JOSE DAVID, [facility] Emergency [id number] SLEH 09:09:00 21:34:00 MARCIN 2023-04-18 2023-04-18 Emergency ER BLACK, [facility] [id number] SLEH 15:35:24 15:35:24 JONI-UY 2023-04-18 2023-04-18 Emergency ER SANTKUMAR SLE SLE [id number] SLEH 13:28:04 13:28:04 , JEAN 2023-04-18 2023-04-18 Emergency ER SANTKUMAR SLE SLE [id number] SLEH 09:44:58 09:44:58 , JEAN 2023-04-18 2023-04-18 Outpatient EL [facility] [id number] SLEH 00:00:00 00:00:00 2023-04-18 2023-04-18 Outpatient EL LISA, SLE SLE [id number] SLEH 00:00:00 00:00:00 RISE 2023-04-18 2023-04-18 Outpatient EL [facility] [place] [id number] SLEH 00:00:00 00:00:00 2023-04-16 2023-04-16 [facility] [id number] SLEH 11:50:00 19:19:00 KRIS ARAGON 2023-04-16 2023-04-16 Emergency ER BRIGIDO, SLEH SLEH [id number] SLEH 12:38:50 12:38:50 IFRAH 2023-04-15 2023-04-15 Outpatient EL WAYNE, SLEH SLEH [id number] SLEH 11:53:18 23:59:00 JONI-UY 2023-04-15 2023-04-15 Outpatient JOLLY ALFREDO, SLEH SLEH [id number] SLEH 08:00:05 11:52:00 SAMANTHA 2023-04-12 2023-04-12 Outpatient EL JEANNETTE, SLEH SLEH [id number] SLEH 15:44:45 23:59:00 ARCENIO 2023-04-12 2023-04-12 Outpatient EL JEANNETTE, SLEH Surgery [id number] SLEH 06:46:00 14:10:00 ARCENIO 2023-04-11 2023-04-11 Outpatient EL WAYNE, SLEH SLEH [id number] SLEH 12:43:09 23:59:00 JONI-UY 2023-04-11 2023-04-11 Outpatient JOLLY ALFREDO, SLEH SLEH [id number] SLEH 08:40:34 12:42:00 SAMANTHA 2023-04-08 2023-04-08 Outpatient EL WAYNE, SLEH SLE [id number] SLEH 14:45:43 23:59:00 JONI-UY 2023-04-08 2023-04-08 Outpatient JOLLY ALFREDO, SLEH SLEH [id number] SLEH 13:22:14 14:44:00 SAMANTHA 2023-04-08 2023-04-08 Outpatient EL JEANNETTE, SLEH SLEH [id number] SLEH 00:00:00 00:00:00 ARCENIO 2023-04-04 2023-04-04 Emergency ER ALISSA, SLEH SLEH [id number] SLEH 15:50:34 23:59:00 ROXANNA 2023-04-04 2023-04-04 Emergency ER WAYNE, SLEH Emergency [id number] SLEH 10:52:00 18:02:00 SERGIO 2023-04-04 2023-04-04 Emergency ER ALISSA, SLEH SLEH [id number] SLEH 11:09:51 11:09:51 ROXANNA 2023-04-04 2023-04-04 Outpatient JOLLY TAYLOR SLEH SLEH [id number] SLEH 09:07:02 10:51:00 DANUTA 2023-04-04 2023-04-04 Outpatient JOLLY ALFREDO SLEH SLEH [id number] SLEH 07:11:40 09:06:00 SAMANTHA 2023-04-01 2023-04-01 Outpatient CARLOS HANLEY SLEH SLEH [id number] SLEH 14:06:52 23:59:00 2023-04-01 2023-04-01 Outpatient JOLLY ALFREDO SLE SLEH [id number] SLEH 11:23:55 14:05:00 SAMANTHA 2023-03-30 2023-03-30 Emergency ER [facility] SLE Emergency 20 [id number] SLEH 12:54:00 21:42:00 ROLEONARD 2023-03-30 2023-03-30 Emergency ER [facility] SLE SLE [id number] SLEH 19:18:13 19:18:13 ROLEONARD 2023-03-28 2023-03-28 Outpatient JOLLY BLACK SLE SLE [id number] SLEH 10:32:44 23:59:00 JONI-UY 2023-03-28 2023-03-28 Outpatient JOLLY ALFREDO SLEH SLEH [id number] SLEH 08:27:00 10:31:00 SAMANTHA 2023-03-25 2023-03-25 Outpatient JOLLY BLACK SLEH SLE [id number] SLEH 14:29:31 23:59:00 JONI-UY 2023-03-25 2023-03-25 Outpatient JOLLY ALFREDO SLEH SLEH [id number] SLEH 10:29:27 14:28:00 SAMANTHA 2023-03-18 2023-03-21 [facility] [id number] [facility]H 14:40:00 21:17:00 MARIO 2023-03-18 2023-03-18 Outpatient JOLLY [facility]FRED[facility], [facility] [id number] SLSL 00:00:00 00:00:00 SAMANTHA 2023-03-14 2023-03-14 Outpatient OLLIE, SLSL SLSL [id number] SLSL 14:32:47 23:59:00 MP 2023-03-14 2023-03-14 Outpatient JOLLY ALFREDO, SLSL SLSL [id number] SLSL 13:16:04 14:31:00 SAMANTHA 2023-03-11 2023-03-11 Outpatient UMAIR, SLSL SLSL [id number] SLSL 11:49:46 23:59:00 CAROLYN 2023-03-11 2023-03-11 Outpatient JOLLY ALFREDO, SLSL SLSL [id number] SLSL 10:38:51 11:48:00 SAMANTHA 2023-03-09 2023-03-09 Outpatient GLENN DOAN SLE [id number] SLEH 15:31:24 23:59:00 AMIE 2023-03-09 2023-03-09 Outpatient JOLLY ROBERSON [facility] [id number] SLEH 15:31:05 23:59:00 AMIE 2023-03-09 2023-03-09 Outpatient JOLLY ROBERSON [facility] SLE [id number] SLE 15:27:00 15:30:00 AMIE 2023-03-09 2023-03-09 Outpatient JOLLY ROBERSON [facility] SLE [id number] SLE 11:45:35 14:14:00 AMIE 2023-03-09 2023-03-09 Outpatient JOLLY KATJA, [facility] SLE [id number] SLEH 13:43:52 13:43:52 HIRAM 2023-03-09 2023-03-09 Outpatient EL SLE SLE [id number] SLEH 13:38:04 13:38:04 2023-03-09 2023-03-09 Outpatient EL [facility], [facility] [id number] [facility] 12:00:00 12:00:00 [facility]-03-09 2023-03-09 Outpatient GLENN DOAN SLE [id number] SLEH 11:45:00 11:44:00 AMIE 2023-03-09 2023-03-09 Outpatient EL SLE SLE [id number] SLEH 07:29:31 07:29:31 2023-03-09 2023-03-09 Outpatient EL SLE SLE [id number] SLEH 07:28:52 07:28:52 2023-03-09 2023-03-09 Outpatient EL VERONICA KRAMER SLE SLEH [id number] SLEH 07:28:25 07:28:25 2023-03-09 2023-03-09 Outpatient EL SLE SLE [id number] SLEH 07:27:43 07:27:43 2023-03-09 2023-03-09 Outpatient EL NAIDA SLE SLE [id number] SLEH 07:27:20 07:27:20 LUCY 2023-03-09 2023-03-09 Outpatient EL SLE SLE [id number] SLEH 07:26:14 07:26:14 2023-03-09 2023-03-09 Outpatient EL [facility] [place] [id number] SLEH 07:25:32 07:25:32 2023-03-09 2023-03-09 Outpatient EL SLE SLE [id number] SLE 07:25:08 07:25:08 2023-03-09 2023-03-09 Outpatient EL PATRICIA [facility] [id number] SLE 00:00:00 00:00:00 AMIE 2023-03-09 2023-03-09 Outpatient EL PATRICIA [facility] [id number] SLEH 00:00:00 00:00:00 AMIE 2023-03-08 2023-03-08 Outpatient NATALEE, GOLDIE SLSL SLSL [id number] SLSL 12:43:34 23:59:00 2023-03-08 2023-03-08 Outpatient EL GEORGIANA, [facility] [id number] SLSL 11:13:32 12:42:00 DIPABEN 2023-03-08 2023-03-08 Outpatient EL GEORGIANA, [facility] [place] [id number] SLEH 00:00:00 00:00:00 DIPABEN 2023-03-03 2023-03-03 Outpatient EL GEORGIANA, SLSL [facility] [id number] SLSL 12:17:20 15:00:00 DIPABEN 2023-03-03 2023-03-03 Outpatient JOLLY BLOCK, SLSL SLSL [id number] SLSL 14:18:43 14:18:43 CAROLYN 2023-03-02 2023-03-02 Outpatient EL GEORGIANA, SLEH SLE [id number] SLEH 00:00:00 00:00:00 JOSELUIS 2023-02-26 2023-02-26 Emergency ER POLO, [facility] Emergency [id number] SLEH 15:45:00 22:21:00 ERIKA 2023-02-26 2023-02-26 Emergency ER POLO, [facility] [id number] SLEH 20:13:37 20:13:37 ERIKA 2023-02-26 2023-02-26 Outpatient POLO [facility] [place] [id number] SLEH 00:00:00 00:00:00 ERIKA 2023-02-26 2023-02-26 Outpatient POLO [facility] [id number] SLEH 00:00:00 00:00:00 ERIKA 2023-02-21 2023-02-21 Outpatient EL OSVALDO, SLEH SLE [id number] SLEH 11:38:15 23:59:00 DANUTA 2023-02-21 2023-02-21 Outpatient JOLLY STONER, SLE SLE [id number] SLEH 08:20:14 11:37:00 JOSELUIS 2023-02-17 2023-02-17 Outpatient OSVALDO [facility] [place] [id number] SLEH 08:30:58 23:59:00 DANUTA 2023-02-15 2023-02-17 Inpatient ER [facility], [facility] Med [id number] SLEH 22:54:00 11:59:00 MATY 2023-02-16 2023-02-16 Outpatient JOLLY WRIGHT SLEH SLE [id number] SLEH 06:04:31 23:59:00 ASHLEY 2023-02-04 2023-02-04 Outpatient EL GEORGIANA, [facility] [place] [id number] SLEH 09:09:56 23:59:00 JOSELUIS 2023-01-25 2023-01-25 Outpatient JOLLY ALFREDO [facility] [id number] SLE 13:24:47 13:24:47 SAMANTHA 2023-01-20 2023-01-23 Inpatient ER ANA LUISA, [facility] Emergency [id number] SLE 13:21:00 15:13:00 [facility] 2022-12-29 2023-01-04 Inpatient ER BRIGIDA [facility] Internal [id number] SLE 12:45:00 18:19:00 KHANNAN Med 2022-12-31 2022-12-31 Anesthesia Pathikrachel, Du [facility] [id number] [facility] 08:14:00 09:23:00 [facility] 2022-12-31 Surgery Fabiano [facility] [id number] 08:00:00 09:00:00 [facility] 2022-12-29 2022-12-29 Office Paul Sutton [facility] [id number] [facility] 12:00:00 13:00:00 Visit BuckromeliaSathishse Fallon [facility] 2022-12-29 2022-12-29 Outpatient EL PATRICIA [facility] [id number] SLE 00:00:00 00:00:00 [facility] 2022-12-29 2022-12-[address] [facility] [id number] [facility] 00:[facility] 00:00:00 [facility] 2022-11-25 2022-12-01 Inpatient ER [facility], [facility] General Med [id number] SLE 04:43:00 11:42:00 [facility] 2022-11-25 2022-12-01 Hospital ER SingerMeghassa [facility] [id number] 04:43:00 11:42:00 Encounter Rylie Chong [facility] Dipak Stevenson [facility] Judi Vigil 2022-11-30 2022-11-30 Anesthesia Eun Gregory [facility] [id number] [facility] 08:16:00 09:34:00 Event Monica Ruiz [facility] 2022-11-30 2022-11-30 Surgery Jeannette, [facility] [id number] [facility] 08:02:00 09:00:00 [facility] Results Test Description Test Time Test Comments Results Result Comments Source BODY FLUID CULTURE + GRAM STAIN 2023-07-16 12:18:57 Test Item Value Reference Range Interpretation Comme nts CULTURE (BEAKER) (test code = 1095) No growth BODY FLUID CULTURE + GRAM [id number] 12:18:51 Test Item Value Reference Range Interpretation Comments CULTURE (BEAKER) (test code = 1095) No growth US [id number] 15:41:15 [facility] : 1965 Sex: FUltrasound guided left thoracentesis.Clinical History: Left pleural effusion.Modality: Ultrasound.Sedation: None. Child Protection Specialist: Ellis Lylesistant: None. Estimated Blood Loss: 1ccSpecimen: 2000 cc of serosanguineous fluid. Technique: Informed consent [...] area wasanesthetized with 2% lidocaine, a 4 Italian one-step catheter wasadvanced into the pleural space under ultrasound guidance. Aftercompletion of drainage, the catheter was removed. There was no evidenceof immediate complication. Post procedure chest x-ray demonstrated nopneumothorax. IMPRESSION:Impression:Successful and uncomplicated ultrasound guided left thoracentesis.Electronically Signed By: Galen Genao09/13/2022 15:43 CDTWorkstation Name: [id number] 15:41:13 [facility] : 1965 Sex: FUltrasound guided paracentesis.Clinical History: Ascites.Sedation: None. Child Protection Specialist: Hannah Lylest: None. Estimated Blood Loss: < 1 cc.Specimen: 5050 cc of serosanguineous fluid, samples sent to laboratory.Technique: Informed consent was obtained. The risks of pain, bleeding,infection, bowel perforation, injury to adjacent structures, and adversemedication reactions were discussedwith the patient. After informedconsent was obtained, the patient's abdomen was scanned. The rightlower quadrant of the abdomen was selected for paracentesis. After thelargest fluid pocket area was marked, and the anterior abdominal wallwas evaluated with color Doppler to exclude presence of blood vesselstraversing the area, the skin was prepped and draped in the usualsterile manner. After local anesthesia was achieved with 2% lidocaine,a 5 Italian one-step catheter was advanced into the peritoneal cavityunder ultrasound guidance. After completion of drainage, the catheterwas removed. There was no evidence of complication.IMPRESSION:Impression:Successful ultrasound guided paracentesis.Electronically Signed By: Galen Genao09/13/2022 15:43 CDTWorkstation Name: [id number] FLUID CELL COUNT WITH [id number] 13:41:18 Test Item Value Reference Range Interpretation Comments APPEARANCE FLUID (BEAKER) (test Cloudy Clear A code = 510) COLOR FLUID (BEAKER) (test code Red Colorless, Straw A = 511) RBC FLUID (BEAKER) (test code = 38724 /cu mm <=1 H 513) TOTAL NUCLEATED CELL COUNT 675 /cu mm <=5 H (BEAKER) (test code = 1442) ADJUSTED WBC FLUID (BEAKER) 675 /cu mm <=5 H (test code = 1691) LINING CELLS/OTHERS, CALCULATED 0 /cu mm <=1 (BEAKER) (test code = 1590) NEUTROPHILS FLUID (BEAKER) 60 % (test code = 1656) LYMPHS FLUID (BEAKER) (test 11 % code = 488) MONO/MACROPHAGE FLUID (BEAKER) 21 % (test code = 489) EOSINOPHILS FLUID (BEAKER) 8 % (test code = 491) BASO FLUID (BEAKER) (test code 0 % = 492) CONTAINER BODY FLUID (BEAKER) Sterile Vial (test code = 2873) BODY FLUID CELL COUNT WITH [id number] 13:38:45 Test Item Value Reference Range Interpretation Comments APPEARANCE FLUID (BEAKER) (test Cloudy Clear A code = 510) COLOR FLUID (BEAKER) (test code [place] Colorless, Straw A = 511) RBC FLUID (BEAKER) (test code = 28870 /cu mm <=1 H 513) TOTAL NUCLEATED CELL COUNT 249 /cu mm <=5 H (BEAKER) (test code = 1442) ADJUSTED WBC FLUID (BEAKER) 235 /cu mm <=5 H (test code = 1691) LINING CELLS/OTHERS, CALCULATED 14 /cu mm <=1 H (BEAKER) (test code = 1590) NEUTROPHILS FLUID (BEAKER) 31 % (test code = 1656) LYMPHS FLUID (BEAKER) (test 56 % code = 488) MONO/MACROPHAGE FLUID (BEAKER) 13 % (test code = 489) EOSINOPHILS FLUID (BEAKER) 0 % (test code = 491) BASO FLUID (BEAKER) (test code 0 % = 492) CONTAINER BODY FLUID (BEAKER) Sterile Vial (test code = 2873) XR CHEST 1 VIEW PORTABLE / [id number] 12:22:55 [facility] : 1965 Sex: FINDICATION: s/p left thoracentesisCOMPARISON: 07/11/2023 x-rayTECHNIQUE: Single frontal view of the chest.FINDINGS: Lines, tubes, and devices: None.Lungs and pleura: Decreased opacity in the left lower thorax. Nopneumothorax.Heart and mediastinum: Normal heart size. Unremarkable mediastinalcontours.Osseousstructures: No acute abnormality. Mild spondylosis and facetarthropathy are present within the spine. Other: None.IMPRESSION:Small left pleural effusion, decreased compared to prior exam. Nopneumothoraxidentified.Electronically Signed By: Brian Roper09/13/2022 12:25 CDTWorkstation Name: [id number] METABOLIC [id number] 06:27:20 Test Item Value Reference Range Interpretation Comments TOTAL PROTEIN 5.9 gm/dL 6.0-8.3 L (BEAKER) (test code = 770) ALBUMIN (BEAKER) 2.8 g/dL 3.5-5.0 L (test code = 1145) ALKALINE 86 U/L 40-150 PHOSPHATASE (BEAKER) (test code = 346) BILIRUBIN TOTAL 1.1 mg/dL 0.2-1.2 (BEAKER) (test code = 377) SODIUM (BEAKER) 137 meq/L 136-145 (test code = 381) POTASSIUM (BEAKER) 4.1 meq/L 3.5-5.1 (test code = 379) CHLORIDE (BEAKER) 113 meq/L 98-107 H (test code = 382) CO2 (BEAKER) (test 13 meq/L 22-29 L code = 355) BLOOD UREA 34 mg/dL 7-21 H NITROGEN (BEAKER) (test code = 354) CREATININE 1.75 mg/dL 0.57-1.25 H (BEAKER) (test code = 358) GLUCOSE RANDOM 93 mg/dL 70-105 (BEAKER) (test code = 652) CALCIUM (BEAKER) 7.8 mg/dL 8.4-10.2 L (test code = 697) AST (SGOT) 39 U/L 5-34 H (BEAKER) (test code = 353) ALT (SGPT) 23 U/L 6-55 (BEAKER) (test code = 347) EGFR (BEAKER) 33 Interpretatio n of eGFR (test code = [...] not appl icable for dialysis patien ts [employer]red[employer] Machine Loader ID - [id number] 06:26:56 Test Item Value Reference Range Interpretation Comments PHOSPHORUS (BEAKER) (test code = 3.8 mg/dL 2.3-4.7 604) Filler Shredding Machine Loader ID - [id number] 06:26:55 Test Item Value Reference Range Interpretation Comments MAGNESIUM (BEAKER) (test code = 2.1 mg/dL 1.6-2.6 627) Filler Shredding Machine Loader ID - adminCBC W/PLT COUNT & AUTO [id number] 06:10:50 Test Item Value Reference Range Interpretation Comments WHITE BLOOD CELL COUNT (BEAKER) 5.4 K/ L 3.5-10.5 (test code = 775) RED BLOOD CELL COUNT (BEAKER) 2.78 M/ L 3.93-5.22 L (test code = 761) HEMOGLOBIN (BEAKER) (test code = 9.6 GM/DL 11.2-15.7 L 410) HEMATOCRIT (BEAKER) (test code = 29.3 % 34.1-44.9 L 411) MEAN CORPUSCULAR VOLUME (BEAKER) 105 fL 79-95 H (test code = 753) MEAN CORPUSCULAR HEMOGLOBIN 34.5 pg 25.6-32.2 H (BEAKER) (test code = 751) MEAN CORPUSCULAR HEMOGLOBIN CONC 32.8 GM/DL 32.2-35.5 (BEAKER) (test code = 752) RED CELL DISTRIBUTION WIDTH 15.5 % 11.7-14.4 H (BEAKER) (test code = 412) PLATELET COUNT (BEAKER) (test code 74 K/CU MM 150-450 L = 756) MEAN PLATELET VOLUME (BEAKER) 10.8 fL 9.4-12.3 (test code = 754) NUCLEATED RED BLOOD CELLS (BEAKER) 0 /100 WBC 0-0 (test code = 413) NEUTROPHILS RELATIVE PERCENT 64 % (BEAKER) (test code = 429) LYMPHOCYTES RELATIVE PERCENT 14 % (BEAKER) (test code = 430) MONOCYTES RELATIVE PERCENT 14 % (BEAKER) (test code = 431) EOSINOPHILS RELATIVE PERCENT 6 % (BEAKER) (test code = 432) BASOPHILS RELATIVE PERCENT 1 % (BEAKER) (test code = 437) NEUTROPHILS ABSOLUTE COUNT 3.49 K/ L 1.56-6.13 (BEAKER) (test code = 670) LYMPHOCYTES ABSOLUTE COUNT 0.78 K/ L 1.18-3.74 L (BEAKER) (test code = 414) MONOCYTES ABSOLUTE COUNT (BEAKER) 0.78 K/ L 0.24-0.36 H (test code = 415) EOSINOPHILS ABSOLUTE COUNT 0.33 K/ L 0.04-0.36 (BEAKER) (test code = 416) BASOPHILS ABSOLUTE COUNT (BEAKER) 0.03 K/ L 0.01-0.08 (test code = 417) IMMATURE GRANULOCYTES-RELATIVE 0.40 % 0.00-1.00 PERCENT (BEAKER) (test code = 2801) PROTHROMBIN [id number] 06:10:48 Test Item Value Reference Range Interpretation Comments PROTIME (BEAKER) (test code = 20.2 seconds 11.9-14.2 H 759) INR (BEAKER) (test code = 370) 1.75 <=5.90 RECOMMENDED COUMADIN/WARFARIN INR THERAPY RANGESSTANDARD DOSE: 2.0 - 3.0 Includes: PROPHYLAXIS for venous thrombosis, systemic embolization; TREATMENT for venous thrombosis and/or pulmonary embolus.HIGH RISK: Target INR is 2.5-3.5 for patients with mechanical heart valves.BLOOD GAS, [id number] 06:03:24 Test Item Value Reference Range Interpretation Comments PH VENOUS (BEAKER) (test code = 7.41 7.32-7.42 701) PCO2 VENOUS (BEAKER) (test code = 28 mm Hg 41-51 L 755) PO2 VENOUS (BEAKER) (test code = 38 mm Hg 25-40 702) O2 SATURATION VENOUS (BEAKER) 73.8 % 40.0-70.0 H (test code = 703) HCO3 VENOUS (BEAKER) (test code = 17 mmol/L 21-29 L 705) BASE EXCESS VENOUS (BEAKER) (test -6.3 mmol/L -2.0-3.0 L code = 704) PATIENT TEMPERATURE (BEAKER) 37.0 (test code = 1818) FIO2 (BEAKER) (test code = 1819) 21.0 CALCIUM, [id number] 06:03:24 Test Item Value Reference Range Interpretation Comments CALCIUM IONIZED (BEAKER) (test 1.08 mmol/L 1.12-1.27 L code = 698) PH, BLOOD (BEAKER) (test code = 7.41 1810) BLOOD [id number] 03:00:46 Test Item Value Reference Range Interpretation Comments CULTURE (BEAKER) (test No growth in 5 days code = 1095) BLOOD [id number] 03:00:45 Test Item Value Reference Range Interpretation Comments CULTURE (BEAKER) (test No growth in 5 days code = 1095) XR CHEST 1 VIEW PORTABLE / [id number] 07:09:56 [facility] : 1965 Sex: FXR CHEST 1 VIEW PORTABLE / BEDSIDEINDICATION: dyspneaCOMPARISON: Prior day's examTECHNIQUE: Portable frontal view(s) of the chest. FINDINGS: Support Lines and Devices: Stable. Lungs and pleura: Small to moderate left pleural effusion. Leftretrocardiac opacity, representing singly or in combination pneumonia ,atelectasis, or pleural effusion. No pneumothorax identified.Heart and mediastinum: Stable contours. Stable surgical changes.Additional findings: None.IMPRESSION:1. Small to moderate left pleural effusion.2. Left retrocardiac opacity, representing singly or in combinationpneumonia, atelectasis, or pleural effusion.Electronically Signed By: Brian Roper 07:12 CDTWorkstation Name: [id number] METABOLIC [id number] 05:37:39 Test Item Value Reference Range Interpretation Comments TOTAL PROTEIN 5.2 gm/dL 6.0-8.3 L (BEAKER) (test code = 770) ALBUMIN (BEAKER) 2.6 g/dL 3.5-5.0 L (test code = 1145) ALKALINE 70 U/L 40-150 PHOSPHATASE (BEAKER) (test code = 346) BILIRUBIN TOTAL 0.9 mg/dL 0.2-1.2 (BEAKER) (test code = 377) SODIUM (BEAKER) 135 meq/L 136-145 L (test code = 381) POTASSIUM (BEAKER) 4.2 meq/L 3.5-5.1 (test code = 379) CHLORIDE (BEAKER) 112 meq/L 98-107 H (test code = 382) CO2 (BEAKER) (test 18 meq/L 22-29 L code = 355) BLOOD UREA 33 mg/dL 7-21 H NITROGEN (BEAKER) (test code = 354) CREATININE 1.59 mg/dL 0.57-1.25 H (BEAKER) (test code = 358) GLUCOSE RANDOM 94 mg/dL 70-105 (BEAKER) (test code = 652) CALCIUM (BEAKER) 7.6 mg/dL 8.4-10.2 L (test code = 697) AST (SGOT) 43 U/L 5-34 H (BEAKER) (test code = 353) ALT (SGPT) 23 U/L 6-55 (BEAKER) (test code = 347) EGFR (BEAKER) 37 Interpretatio [...] not appl icable for dialysis patien ts Filler Shredding Machine Loader ID - STANLEY [id number] 05:37:16 Test Item Value Reference Range Interpretation Comments MAGNESIUM (BEAKER) (test code = 2.0 mg/dL 1.6-2.6 627) Filler Shredding Machine Loader ID - STANLEY [id number] 05:37:16 Test Item Value Reference Range Interpretation Comments PHOSPHORUS (BEAKER) (test code = 3.5 mg/dL 2.3-4.7 604) Filler Shredding Machine Loader ID Nathalia ANGEL WPROTHROMBIN TIME/[id number] 05:35:14 Test Item Value Reference Range Interpretation Comments PROTIME (BEAKER) (test code = 20.5 seconds 11.9-14.2 H 759) INR (BEAKER) (test code = 370) 1.79 <=5.90 RECOMMENDED COUMADIN/WARFARIN INR THERAPY RANGESSTANDARD DOSE: 2.0 - 3.0 Includes: PROPHYLAXIS for venous thrombosis, systemic embolization; TREATMENT for venous thrombosis and/or pulmonary embolus.HIGH RISK: Target INR is 2.5-3.5 for patients with mechanical heart valves.CBC W/PLT COUNT & AUTO [id number] 05:09:06 Test Item Value Reference Range Interpretation Comments WHITE BLOOD CELL COUNT (BEAKER) 5.2 K/ L 3.5-10.5 (test code = 775) RED BLOOD CELL COUNT (BEAKER) 2.46 M/ L 3.93-5.22 L (test code = 761) HEMOGLOBIN (BEAKER) (test code = 8.6 GM/DL 11.2-15.7 L 410) HEMATOCRIT (BEAKER) (test code = 25.8 % 34.1-44.9 L 411) MEAN CORPUSCULAR VOLUME (BEAKER) 105 fL 79-95 H (test code = 753) MEAN CORPUSCULAR HEMOGLOBIN 35.0 pg 25.6-32.2 H (BEAKER) (test code = 751) MEAN CORPUSCULAR HEMOGLOBIN CONC 33.3 GM/DL 32.2-35.5 (BEAKER) (test code = 752) RED CELL DISTRIBUTION WIDTH 15.5 % 11.7-14.4 H (BEAKER) (test code = 412) PLATELET COUNT (BEAKER) (test code 66 K/CU MM 150-450 L = 756) MEAN PLATELET VOLUME (BEAKER) 11.2 fL 9.4-12.3 (test code = 754) NUCLEATED RED BLOOD CELLS (BEAKER) 0 /100 WBC 0-0 (test code = 413) NEUTROPHILS RELATIVE PERCENT 64 % (BEAKER) (test code = 429) LYMPHOCYTES RELATIVE PERCENT 14 % (BEAKER) (test code = 430) MONOCYTES RELATIVE PERCENT 16 % (BEAKER) (test code = 431) EOSINOPHILS RELATIVE PERCENT 5 % (BEAKER) (test code = 432) BASOPHILS RELATIVE PERCENT 1 % (BEAKER) (test code = 437) NEUTROPHILS ABSOLUTE COUNT 3.35 K/ L 1.56-6.13 (BEAKER) (test code = 670) LYMPHOCYTES ABSOLUTE COUNT 0.71 K/ L 1.18-3.74 L (BEAKER) (test code = 414) MONOCYTES ABSOLUTE COUNT (BEAKER) 0.82 K/ L 0.24-0.36 H (test code = 415) EOSINOPHILS ABSOLUTE COUNT 0.27 K/ L 0.04-0.36 (BEAKER) (test code = 416) BASOPHILS ABSOLUTE COUNT (BEAKER) 0.03 K/ L 0.01-0.08 (test code = 417) IMMATURE GRANULOCYTES-RELATIVE 0.40 % 0.00-1.00 PERCENT (BEAKER) (test code = 2801) US [id number] 16:17:28 [facility] : 1965 Sex: FUltrasound guided left-sided thoracentesis.Clinical History: Left pleural effusion.Modality: Ultrasound.Sedation: None. Child Protection Specialist: Hannah Munozt: None. Estimated Blood Loss: 1ccSpecimen: 2000 cc of serosanguineous fluid. Technique: Informed consent [...] wasanesthetized with 2% lidocaine, a 4F one-step catheter was advanced intothe pleural space under ultrasound guidance. After completion ofdrainage, the catheter was removed. There was no evidence of immediatecomplication. Post procedure chest x-ray demonstrated no pneumothorax. IMPRESSION:Impression:Successful and uncomplicated ultrasound guided left-sided thoracentesis. Electronically Signed By: Aravind Neal MD07/10/2023 16:19 CDTWorkstation Name: [id number] 10:56:31 Test Item Value Reference Range Interpretation Comments CULTURE (BEAKER) A From Aerobi c Bottle (test code = Only Staphyloco ccus 1095) epidermidis GRAM STAIN From aerobic RESULT (BEAKER) bottle only: (test code = gram positive 1123) cocci in clusters The specimen volume collected for this blood culture was below the optimum (10 mL per bottle or 20 mL total). Use of lower volumes may adversely affect recovery and/or detection times of some organisms.XR CHEST 1 VIEW PORTABLE / [id number] 10:03:57 [facility] : 1965 Sex: FChest, one viewHistory: Status post left thoracentesisComparison: 07/07/2023Findings:Clear lungs. Normal size heart. The previous left pleural effusion hassignificantly decreased in size status post reported left thoracentesis.No pneumothorax is apparent. Electronically Signed By: Aravind Neal MD07/10/2023 10:06 CDTWorkstation Name: [id number] METABOLIC [id number] 08:39:27 Test Item Value Reference Range Interpretation Comments TOTAL PROTEIN 5.7 gm/dL 6.0-8.3 L (BEAKER) (test code = 770) ALBUMIN (BEAKER) 2.8 g/dL 3.5-5.0 L (test code = 1145) ALKALINE 85 U/L 40-150 PHOSPHATASE (BEAKER) (test code = 346) BILIRUBIN TOTAL 0.9 mg/dL 0.2-1.2 (BEAKER) (test code = 377) SODIUM (BEAKER) 132 meq/L 136-145 L (test code = 381) POTASSIUM (BEAKER) 4.1 meq/L 3.5-5.1 (test code = 379) CHLORIDE (BEAKER) 109 meq/L 98-107 H (test code = 382) CO2 (BEAKER) (test 17 meq/L 22-29 L code = 355) BLOOD UREA 32 mg/dL 7-21 H NITROGEN (BEAKER) (test code = 354) CREATININE 1.76 mg/dL 0.57-1.25 H (BEAKER) (test code = 358) GLUCOSE RANDOM 100 mg/dL 70-105 (BEAKER) (test code = 652) CALCIUM (BEAKER) 7.7 mg/dL 8.4-10.2 L (test code = 697) AST (SGOT) 48 U/L 5-34 H (BEAKER) (test code = 353) ALT (SGPT) 25 U/L 6-55 (BEAKER) (test code = 347) EGFR (BEAKER) 33 Interpretatio n of eGFR (test code = [...] not appl icable for dialysis patien ts Filler Shredding Machine Loader ID - [id number] 08:21:55 Test Item Value Reference Range Interpretation Comments PHOSPHORUS (BEAKER) (test code = 3.1 mg/dL 2.3-4.7 604) Filler Shredding Machine Loader ID - [id number] 08:21:54 Test Item Value Reference Range Interpretation Comments MAGNESIUM (BEAKER) (test code = 2.2 mg/dL 1.6-2.6 627) Filler Shredding Machine Loader ID - ADMINCBC W/PLT COUNT & AUTO [id number] 07:42:02 Test Item Value Reference Range Interpretation Comments WHITE BLOOD CELL COUNT (BEAKER) 5.5 K/ L 3.5-10.5 (test code = 775) RED BLOOD CELL COUNT (BEAKER) 2.56 M/ L 3.93-5.22 L (test code = 761) HEMOGLOBIN (BEAKER) (test code = 8.6 GM/DL 11.2-15.7 L 410) HEMATOCRIT (BEAKER) (test code = 26.8 % 34.1-44.9 L 411) MEAN CORPUSCULAR VOLUME (BEAKER) 105 fL 79-95 H (test code = 753) MEAN CORPUSCULAR HEMOGLOBIN 33.6 pg 25.6-32.2 H (BEAKER) (test code = 751) MEAN CORPUSCULAR HEMOGLOBIN CONC 32.1 GM/DL 32.2-35.5 L (BEAKER) (test code = 752) RED CELL DISTRIBUTION WIDTH 15.6 % 11.7-14.4 H (BEAKER) (test code = 412) PLATELET COUNT (BEAKER) (test code 79 K/CU MM 150-450 L = 756) MEAN PLATELET VOLUME (BEAKER) 11.2 fL 9.4-12.3 (test code = 754) NUCLEATED RED BLOOD CELLS (BEAKER) 0 /100 WBC 0-0 (test code = 413) NEUTROPHILS RELATIVE PERCENT 71 % (BEAKER) (test code = 429) LYMPHOCYTES RELATIVE PERCENT 9 % (BEAKER) (test code = 430) MONOCYTES RELATIVE PERCENT 15 % (BEAKER) (test code = 431) EOSINOPHILS RELATIVE PERCENT 5 % (BEAKER) (test code = 432) BASOPHILS RELATIVE PERCENT 1 % (BEAKER) (test code = 437) NEUTROPHILS ABSOLUTE COUNT 3.92 K/ L 1.56-6.13 (BEAKER) (test code = 670) LYMPHOCYTES ABSOLUTE COUNT 0.48 K/ L 1.18-3.74 L (BEAKER) (test code = 414) MONOCYTES ABSOLUTE COUNT (BEAKER) 0.80 K/ L 0.24-0.36 H (test code = 415) EOSINOPHILS ABSOLUTE COUNT 0.27 K/ L 0.04-0.36 (BEAKER) (test code = 416) BASOPHILS ABSOLUTE COUNT (BEAKER) 0.03 K/ L 0.01-0.08 (test code = 417) IMMATURE GRANULOCYTES-RELATIVE 0.40 % 0.00-1.00 PERCENT (BEAKER) (test code = 2801) PROTHROMBIN TIME/[id number] 07:40:07 Test Item Value Reference Range Interpretation Comments PROTIME (BEAKER) (test code = 19.1 seconds 11.9-14.2 H 759) INR (BEAKER) (test code = 370) 1.63 <=5.90 RECOMMENDED COUMADIN/WARFARIN INR THERAPY RANGESSTANDARD DOSE: 2.0 - 3.0 Includes: PROPHYLAXIS for venous thrombosis, systemic embolization; TREATMENT for venous thrombosis and/or pulmonary embolus.HIGH RISK: Target INR is 2.5-3.5 for patients with mechanical heart valves.BLOOD [id number] 06:00:35 Test Item Value Reference Range Interpretation Comments CULTURE (BEAKER) (test No growth in 5 days code = 1095) The specimen volume collected for this blood culture was below the optimum (10 mL per bottle or 20 mL total). Use of lower volumes may adversely affect recovery and/or detection times of some organisms.COMPREHENSIVE METABOLIC PANEL 2023-07-09 05:45:34 Test Item Value Reference Range Interpretation Comments TOTAL PROTEIN 5.8 gm/dL 6.0-8.3 L (BEAKER) (test code = 770) ALBUMIN (BEAKER) 3.0 g/dL 3.5-5.0 L (test code = 1145) ALKALINE 79 U/L 40-150 PHOSPHATASE (BEAKER) (test code = 346) BILIRUBIN TOTAL 0.9 mg/dL 0.2-1.2 (BEAKER) (test code = 377) SODIUM (BEAKER) 133 meq/L 136-145 L (test code = 381) POTASSIUM (BEAKER) 4.7 meq/L 3.5-5.1 (test code = 379) CHLORIDE (BEAKER) 110 meq/L 98-107 H (test code = 382) CO2 (BEAKER) (test 18 meq/L 22-29 L code = 355) BLOOD UREA 35 mg/dL 7-21 H NITROGEN (BEAKER) (test code = 354) CREATININE 1.87 mg/dL 0.57-1.25 H (BEAKER) (test code = 358) GLUCOSE RANDOM 99 mg/dL 70-105 (BEAKER) (test code = 652) CALCIUM (BEAKER) 8.0 mg/dL 8.4-10.2 L (test code = 697) AST (SGOT) 41 U/L 5-34 H (BEAKER) (test code = 353) ALT (SGPT) 24 U/L 6-55 (BEAKER) (test code = 347) EGFR (BEAKER) 31 Interpretatio n of eGFR (test code = [...] not appl icable for dialysis patien ts Filler Shredding Machine Loader ID - STANLEY WOperator ID - [id number] 05:22:26 Test Item Value Reference Range Interpretation Comments MAGNESIUM (BEAKER) (test code = 2.3 mg/dL 1.6-2.6 627) Filler Shredding Machine Loader ID - STANLEY [id number] 05:22:26 Test Item Value Reference Range Interpretation Comments PHOSPHORUS (BEAKER) (test code = 3.6 mg/dL 2.3-4.7 604) Filler Shredding Machine Loader ID - STANLEY WCBC W/PLT COUNT & AUTO [id number] 05:10:18 Test Item Value Reference Range Interpretation Comments WHITE BLOOD CELL COUNT (BEAKER) 4.8 K/ L 3.5-10.5 (test code = 775) RED BLOOD CELL COUNT (BEAKER) 2.49 M/ L 3.93-5.22 L (test code = 761) HEMOGLOBIN (BEAKER) (test code = 8.4 GM/DL 11.2-15.7 L 410) HEMATOCRIT (BEAKER) (test code = 26.0 % 34.1-44.9 L 411) MEAN CORPUSCULAR VOLUME (BEAKER) 104 fL 79-95 H (test code = 753) MEAN CORPUSCULAR HEMOGLOBIN 33.7 pg 25.6-32.2 H (BEAKER) (test code = 751) MEAN CORPUSCULAR HEMOGLOBIN CONC 32.3 GM/DL 32.2-35.5 (BEAKER) (test code = 752) RED CELL DISTRIBUTION WIDTH 15.6 % 11.7-14.4 H (BEAKER) (test code = 412) PLATELET COUNT (BEAKER) (test code 78 K/CU MM 150-450 L = 756) MEAN PLATELET VOLUME (BEAKER) 10.6 fL 9.4-12.3 (test code = 754) NUCLEATED RED BLOOD CELLS (BEAKER) 0 /100 WBC 0-0 (test code = 413) NEUTROPHILS RELATIVE PERCENT 65 % (BEAKER) (test code = 429) LYMPHOCYTES RELATIVE PERCENT 14 % (BEAKER) (test code = 430) MONOCYTES RELATIVE PERCENT 15 % (BEAKER) (test code = 431) EOSINOPHILS RELATIVE PERCENT 6 % (BEAKER) (test code = 432) BASOPHILS RELATIVE PERCENT 0 % (BEAKER) (test code = 437) NEUTROPHILS ABSOLUTE COUNT 3.14 K/ L 1.56-6.13 (BEAKER) (test code = 670) LYMPHOCYTES ABSOLUTE COUNT 0.65 K/ L 1.18-3.74 L (BEAKER) (test code = 414) MONOCYTES ABSOLUTE COUNT (BEAKER) 0.71 K/ L 0.24-0.36 H (test code = 415) EOSINOPHILS ABSOLUTE COUNT 0.28 K/ L 0.04-0.36 (BEAKER) (test code = 416) BASOPHILS ABSOLUTE COUNT (BEAKER) 0.02 K/ L 0.01-0.08 (test code = 417) IMMATURE GRANULOCYTES-RELATIVE 0.40 % 0.00-1.00 PERCENT (BEAKER) (test code = 2801) PROTHROMBIN [id number] 05:09:47 Test Item Value Reference Range Interpretation Comments PROTIME (BEAKER) (test code = 19.6 seconds 11.9-14.2 H 759) INR (BEAKER) (test code = 370) 1.68 <=5.90 RECOMMENDED COUMADIN/WARFARIN INR THERAPY RANGESSTANDARD DOSE: 2.0 - 3.0 Includes: PROPHYLAXIS for venous thrombosis, systemic embolization; TREATMENT for venous thrombosis and/or pulmonary embolus.HIGH RISK: Target INR is 2.5-3.5 for patients with mechanical heart valves.BODY FLUID CULTURE + GRAM STAIN 2023-07-08 17:10:37 Test Item Value Reference Range Interpretation Comments CULTURE (BEAKER) No growth (test code = 1095) GRAM STAIN RESULT 1+ WBCs Initial gr am stain (BEAKER) (test performed hui or to code = 1123) incubation. 07/06/2023 8:06 PM Karly Bland GRAM STAIN RESULT No organisms seen Initi al gram stain (BEAKER) (test performed hui or to code = 74181) incubation. 07/06/2023 8:06 PM Karly Bland SODIUM, RANDOM [id number] 13:41:19 Test Item Value Reference Range Interpretation Comments SODIUM URINE (BEAKER) (test code = < meq/L 243) Reference Range: No NormalsOperator ID - ADMINCREATININE, RANDOM [id number] 13:39:11 Test Item Value Reference Range Interpretation Comments CREATININE URINE (BEAKER) (test 143.0 mg/dL code = 375) Reference Range: No NormalsOperator ID - ADMINPROTEIN, RANDOM [id number] 13:39:11 Test Item Value Reference Range Interpretation Comments PROTEIN, URINE (BEAKER) (test code = 12 mg/dL 0-14 1569) Filler Shredding Machine Loader ID - ADMINURINALYSIS W/ [id number] 12:43:53 Test Item Value Reference Range Interpretation Comments COLOR (BEAKER) (test code Yellow = 470) CLARITY (BEAKER) (test Clear code = 469) SPECIFIC GRAVITY UA 1.023 1.001-1.035 (BEAKER) (test code = 468) PH UA (BEAKER) (test code 6.0 5.0-8.0 = 467) PROTEIN UA (BEAKER) (test 20 mg/dL Negative A code = 464) GLUCOSE [...] = 463) RBC UA (BEAKER) (test code 27 /HPF = 519) WBC UA (BEAKER) (test code 13 /HPF = 520) SQUAMOUS EPITHELIAL 1 /HPF (BEAKER) (test code = 516) CALCIUM OXALATE CRYSTALS Rare (BEAKER) (test code = 518) SOURCE(BEAKER) (test code Urine, Clean Catch = 0826) Filler Shredding Machine Loader ID - [auto]Filler Shredding Machine Loader ID - techCALCIUM, [id number] 05:30:52 Test Item Value Reference Range Interpretation Comments CALCIUM IONIZED (BEAKER) (test 1.08 mmol/L 1.12-1.27 L code = 698) PH, BLOOD (BEAKER) (test code = 7.37 1810) [id number] 05:15:35 Test Item Value Reference Range Interpretation Comments PHOSPHORUS (BEAKER) (test code = 3.5 mg/dL 2.3-4.7 604) Filler Shredding Machine Loader ID - MARCOCREATINE KINASE (CK)2023-07-08 05:15:35 Test Item Value Reference Range Interpretation Comments CREATINE KINASE TOTAL (BEAKER) (test 34 U/L 29-200 code = 380) Filler Shredding Machine Loader ID - MARCOCOMPREHENSIVE METABOLIC [id number] 05:15:34 Test Item Value Reference Range Interpretation Comments TOTAL PROTEIN 5.8 gm/dL 6.0-8.3 L (BEAKER) (test code = 770) ALBUMIN (BEAKER) 3.1 g/dL 3.5-5.0 L (test code = 1145) ALKALINE 97 U/L 40-150 PHOSPHATASE (BEAKER) (test code = 346) BILIRUBIN TOTAL 0.9 mg/dL 0.2-1.2 (BEAKER) (test code = 377) SODIUM (BEAKER) 133 meq/L 136-145 L (test code = 381) POTASSIUM (BEAKER) 4.6 meq/L 3.5-5.1 (test code = 379) CHLORIDE (BEAKER) 109 meq/L 98-107 H (test code = 382) CO2 (BEAKER) (test 18 meq/L 22-29 L code = 355) BLOOD UREA 32 mg/dL 7-21 H NITROGEN (BEAKER) (test code = 354) CREATININE 1.69 mg/dL 0.57-1.25 H (BEAKER) (test code = 358) GLUCOSE RANDOM 105 mg/dL 70-105 (BEAKER) (test code = 652) CALCIUM (BEAKER) 8.1 mg/dL 8.4-10.2 L (test code = 697) AST (SGOT) 39 U/L 5-34 H (BEAKER) (test code = 353) ALT (SGPT) 23 U/L 6-55 (BEAKER) (test code = 347) EGFR (BEAKER) 35 Interpretatio n of eGFR (test code = [...] not appl icable for dialysis patien ts Filler Shredding Machine Loader ID - [id number] 05:15:34 Test Item Value Reference Range Interpretation Comments MAGNESIUM (BEAKER) (test code = 2.3 mg/dL 1.6-2.6 627) Filler Shredding Machine Loader ID - MARCOB-TYPE NATRIURETIC FACTOR (BNP)2023-07-08 05:09:26 Test Item Value Reference Range Interpretation Comments B-TYPE NATRIURETIC PEPTIDE (BEAKER) 33 pg/mL 0-100 (test code = 700) Filler Shredding Machine Loader ID - ADMINPROTHROMBIN TIME/[id number] 05:02:44 Test Item Value Reference Range Interpretation Comments PROTIME (BEAKER) (test code = 19.5 seconds 11.9-14.2 H 759) INR (BEAKER) (test code = 370) 1.68 <=5.90 RECOMMENDED COUMADIN/WARFARIN INR THERAPY RANGESSTANDARD DOSE: 2.0 - 3.0 Includes: PROPHYLAXIS for venous thrombosis, systemic embolization; TREATMENT for venous thrombosis and/or pulmonary embolus.HIGH RISK: Target INR is 2.5-3.5 for patients with mechanical heart valves.CBC W/PLT COUNT & AUTO [id number] 04:45:45 Test Item Value Reference Range Interpretation Comments WHITE BLOOD CELL COUNT (BEAKER) 4.4 K/ L 3.5-10.5 (test code = 775) RED BLOOD CELL COUNT (BEAKER) 2.59 M/ L 3.93-5.22 L (test code = 761) HEMOGLOBIN (BEAKER) (test code = 8.7 GM/DL 11.2-15.7 L 410) HEMATOCRIT (BEAKER) (test code = 26.8 % 34.1-44.9 L 411) MEAN CORPUSCULAR VOLUME (BEAKER) 104 fL 79-95 H (test code = 753) MEAN CORPUSCULAR HEMOGLOBIN 33.6 pg 25.6-32.2 H (BEAKER) (test code = 751) MEAN CORPUSCULAR HEMOGLOBIN CONC 32.5 GM/DL 32.2-35.5 (BEAKER) (test code = 752) RED CELL DISTRIBUTION WIDTH 15.2 % 11.7-14.4 H (BEAKER) (test code = 412) PLATELET COUNT (BEAKER) (test code 78 K/CU MM 150-450 L = 756) MEAN PLATELET VOLUME (BEAKER) 10.7 fL 9.4-12.3 (test code = 754) NUCLEATED RED BLOOD CELLS (BEAKER) 0 /100 WBC 0-0 (test code = 413) NEUTROPHILS RELATIVE PERCENT 63 % (BEAKER) (test code = 429) LYMPHOCYTES RELATIVE PERCENT 14 % (BEAKER) (test code = 430) MONOCYTES RELATIVE PERCENT 16 % (BEAKER) (test code = 431) EOSINOPHILS RELATIVE PERCENT 6 % (BEAKER) (test code = 432) BASOPHILS RELATIVE PERCENT 1 % (BEAKER) (test code = 437) NEUTROPHILS ABSOLUTE COUNT 2.76 K/ L 1.56-6.13 (BEAKER) (test code = 670) LYMPHOCYTES ABSOLUTE COUNT 0.61 K/ L 1.18-3.74 L (BEAKER) (test code = 414) MONOCYTES ABSOLUTE COUNT (BEAKER) 0.69 K/ L 0.24-0.36 H (test code = 415) EOSINOPHILS ABSOLUTE COUNT 0.27 K/ L 0.04-0.36 (BEAKER) (test code = 416) BASOPHILS ABSOLUTE COUNT (BEAKER) 0.03 K/ L 0.01-0.08 (test code = 417) IMMATURE GRANULOCYTES-RELATIVE 0.20 % 0.00-1.00 PERCENT (BEAKER) (test code = 2801) XR CHEST 1 VIEW PORTABLE / [id number] 16:42:39 [facility] : 1965 Sex: FChest one view:HISTORY: hepatic hydrothoraxComparison: 07/05/2023There is a layering small left pleural effusion again noted. Noconsolidation or vascular congestion is noted. Cardiac size remainswithin normal limits.Electronically Signed By: Nathaniel Wilkins07/07/2023 16:44 CDTWorkstation Name: [id number] PARACENTESIS 2023-07-07 08:01:44 [facility] : 1965 Sex: FUltrasound guided paracentesis.Clinical History: Ascites.Sedation: None. Child Protection Specialist: Ellis Munozistant: None. Estimated Blood Loss: < 1 cc.Specimen: 3900 cc of cloudy lupe fluid, samples sent to laboratory.Technique: Informed consent was obtained. The risks of pain, bleeding,infection, bowel perforation, injury to adjacent structures, and adversemedication reactions were discussed with the patient. After informedconsent was obtained, the patient's abdomen was scanned. The RUQ of theabdomen was selected for paracentesis. After the largest fluid pocketarea was marked, and the anterior abdominal wall was evaluated withcolor Doppler to exclude presence of blood vessels traversing the area,the skin was prepped and draped in the usual sterile manner. Afterlocal anesthesia was achieved with 2% lidocaine, a 5 Italian one-stepcatheter was advanced into the peritoneal cavity under ultrasoundguidance. After completion of drainage, the catheter was removed. Therewas no evidence of complication.IMP RESSION:Impression:Successful ultrasound guided paracentesis.Electronically Signed By: Lee Diaz07/07/2023 08:03 CDTWorkstation Name: JESSICA 2023-07-07 02:29:01 Test Item Value Reference Range Interpretation Comments PHOSPHORUS (BEAKER) (test code = 4.0 mg/dL 2.3-4.7 604) Filler Shredding Machine Loader ID - ADMINCOMPREHENSIVE METABOLIC [id number] 02:29:00 Test Item Value Reference Range Interpretation Comments TOTAL PROTEIN 6.1 gm/dL 6.0-8.3 (BEAKER) (test code = 770) ALBUMIN (BEAKER) 3.2 g/dL 3.5-5.0 L (test code = 1145) ALKALINE 95 U/L 40-150 PHOSPHATASE (BEAKER) (test code = 346) BILIRUBIN TOTAL 1.2 mg/dL 0.2-1.2 (BEAKER) (test code = 377) SODIUM (BEAKER) 132 meq/L 136-145 L (test code = 381) POTASSIUM (BEAKER) 3.8 meq/L 3.5-5.1 (test code = 379) CHLORIDE (BEAKER) 107 meq/L 98-107 (test code = 382) CO2 (BEAKER) (test 13 meq/L 22-29 L code = 355) BLOOD UREA 35 mg/dL 7-21 H NITROGEN (BEAKER) (test code = 354) CREATININE 1.77 mg/dL 0.57-1.25 H (BEAKER) (test code = 358) GLUCOSE RANDOM 99 mg/dL 70-105 (BEAKER) (test code = 652) CALCIUM (BEAKER) 8.0 mg/dL 8.4-10.2 L (test code = 697) AST (SGOT) 35 U/L 5-34 H (BEAKER) (test code = 353) ALT (SGPT) 19 U/L 6-55 (BEAKER) (test code = 347) EGFR (BEAKER) 33 Interpretatio n of eGFR (test code = [...] not appl icable for dialysis patien ts Filler Shredding Machine Loader ID - [id number] 02:29:00 Test Item Value Reference Range Interpretation Comments MAGNESIUM (BEAKER) (test code = 2.3 mg/dL 1.6-2.6 627) Filler Shredding Machine Loader ID - [id number] TIME/[id number] 02:28:39 Test Item Value Reference Range Interpretation Comments PROTIME (BEAKER) (test code = 20.2 seconds 11.9-14.2 H 759) INR (BEAKER) (test code = 370) 1.76 <=5.90 RECOMMENDED COUMADIN/WARFARIN INR THERAPY RANGESSTANDARD DOSE: 2.0 - 3.0 Includes: PROPHYLAXIS for venous thrombosis, systemic embolization; TREATMENT for venous thrombosis and/or pulmonary embolus.HIGH RISK: Target INR is 2.5-3.5 for patients with mechanical heart valves.CBC W/PLT COUNT & AUTO [id number] 02:08:31 Test Item Value Reference Range Interpretation Comments WHITE BLOOD CELL COUNT (BEAKER) 4.7 K/ L 3.5-10.5 (test code = 775) RED BLOOD CELL COUNT (BEAKER) 2.59 M/ L 3.93-5.22 L (test code = 761) HEMOGLOBIN (BEAKER) (test code = 8.6 GM/DL 11.2-15.7 L 410) HEMATOCRIT (BEAKER) (test code = 26.7 % 34.1-44.9 L 411) MEAN CORPUSCULAR VOLUME (BEAKER) 103 fL 79-95 H (test code = 753) MEAN CORPUSCULAR HEMOGLOBIN 33.2 pg 25.6-32.2 H (BEAKER) (test code = 751) MEAN CORPUSCULAR HEMOGLOBIN CONC 32.2 GM/DL 32.2-35.5 (BEAKER) (test code = 752) RED CELL DISTRIBUTION WIDTH 15.4 % 11.7-14.4 H (BEAKER) (test code = 412) PLATELET COUNT (BEAKER) (test code 76 K/CU MM 150-450 L = 756) MEAN PLATELET VOLUME (BEAKER) 10.3 fL 9.4-12.3 (test code = 754) NUCLEATED RED BLOOD CELLS (BEAKER) 0 /100 WBC 0-0 (test code = 413) NEUTROPHILS RELATIVE PERCENT 64 % (BEAKER) (test code = 429) LYMPHOCYTES RELATIVE PERCENT 13 % (BEAKER) (test code = 430) MONOCYTES RELATIVE PERCENT 16 % (BEAKER) (test code = 431) EOSINOPHILS RELATIVE PERCENT 6 % (BEAKER) (test code = 432) BASOPHILS RELATIVE PERCENT 1 % (BEAKER) (test code = 437) NEUTROPHILS ABSOLUTE COUNT 3.01 K/ L 1.56-6.13 (BEAKER) (test code = 670) LYMPHOCYTES ABSOLUTE COUNT 0.61 K/ L 1.18-3.74 L (BEAKER) (test code = 414) MONOCYTES ABSOLUTE COUNT (BEAKER) 0.76 K/ L 0.24-0.36 H (test code = 415) EOSINOPHILS ABSOLUTE COUNT 0.26 K/ L 0.04-0.36 (BEAKER) (test code = 416) BASOPHILS ABSOLUTE COUNT (BEAKER) 0.03 K/ L 0.01-0.08 (test code = 417) IMMATURE GRANULOCYTES-RELATIVE 0.40 % 0.00-1.00 PERCENT (BEAKER) (test code = 2801) BODY FLUID CELL COUNT WITH [id number] 18:31:06 Test Item Value Reference Range Interpretation Comments APPEARANCE FLUID (BEAKER) (test Cloudy Clear A code = 510) COLOR FLUID (BEAKER) (test code [place] Colorless, Straw A = 511) RBC FLUID (BEAKER) (test code = 72439 /cu mm <=1 H 513) TOTAL NUCLEATED CELL COUNT 469 /cu mm <=5 H (BEAKER) (test code = 1442) ADJUSTED WBC FLUID (BEAKER) 451 /cu mm <=5 H (test code = 1691) LINING CELLS/OTHERS, CALCULATED 18 /cu mm <=1 H (BEAKER) (test code = 1590) NEUTROPHILS FLUID (BEAKER) 8 % (test code = 1656) LYMPHS FLUID (BEAKER) (test 55 % code = 488) MONO/MACROPHAGE FLUID (BEAKER) 35 % (test code = 489) EOSINOPHILS FLUID (BEAKER) 0 % (test code = 491) BASO FLUID (BEAKER) (test code 1 % = 492) CONTAINER BODY FLUID (BEAKER) EDTA Tube (test code = 2873) BODY FLUID CULTURE + GRAM [id number] 17:29:45 Test Item Value Reference Range Interpretation Comments CULTURE (BEAKER) (test code = 1095) No growth COMPREHENSIVE METABOLIC [id number] 06:39:46 Test Item Value Reference Range Interpretation Comments TOTAL PROTEIN 5.3 gm/dL 6.0-8.3 L (BEAKER) (test code = 770) ALBUMIN (BEAKER) 2.7 g/dL 3.5-5.0 L (test code = 1145) ALKALINE 84 U/L 40-150 PHOSPHATASE (BEAKER) (test code = 346) BILIRUBIN TOTAL 1.6 mg/dL 0.2-1.2 H (BEAKER) (test code = 377) SODIUM (BEAKER) 134 meq/L 136-145 L (test code = 381) POTASSIUM (BEAKER) 4.1 meq/L 3.5-5.1 (test code = 379) CHLORIDE (BEAKER) 111 meq/L 98-107 H (test code = 382) CO2 (BEAKER) (test 14 meq/L 22-29 L code = 355) BLOOD UREA 40 mg/dL 7-21 H NITROGEN (BEAKER) (test code = 354) CREATININE 1.64 mg/dL 0.57-1.25 H (BEAKER) (test code = 358) GLUCOSE RANDOM 121 mg/dL 70-105 H (BEAKER) (test code = 652) CALCIUM (BEAKER) 7.9 mg/dL 8.4-10.2 L (test code = 697) AST (SGOT) 32 U/L 5-34 (BEAKER) (test code = 353) ALT (SGPT) 20 U/L 6-55 (BEAKER) (test code = 347) EGFR (BEAKER) 36 Interpretatio n of eGFR (test code = [...] not appl icable for dialysis patien ts Filler Shredding Machine Loader ID - [id number] 06:27:37 Test Item Value Reference Range Interpretation Comments MAGNESIUM (BEAKER) (test code = 2.3 mg/dL 1.6-2.6 627) Filler Shredding Machine Loader ID - [id number] 06:27:37 Test Item Value Reference Range Interpretation Comments PHOSPHORUS (BEAKER) (test code = 4.4 mg/dL 2.3-4.7 604) Filler Shredding Machine Loader ID - ADMINCBC W/PLT COUNT & AUTO [id number] 06:05:48 Test Item Value Reference Range Interpretation Comments WHITE BLOOD CELL COUNT (BEAKER) 4.7 K/ L 3.5-10.5 (test code = 775) RED BLOOD CELL COUNT (BEAKER) 2.38 M/ L 3.93-5.22 L (test code = 761) HEMOGLOBIN (BEAKER) (test code = 8.2 GM/DL 11.2-15.7 L 410) HEMATOCRIT (BEAKER) (test code = 25.0 % 34.1-44.9 L 411) MEAN CORPUSCULAR VOLUME (BEAKER) 105 fL 79-95 H (test code = 753) MEAN CORPUSCULAR HEMOGLOBIN 34.5 pg 25.6-32.2 H (BEAKER) (test code = 751) MEAN CORPUSCULAR HEMOGLOBIN CONC 32.8 GM/DL 32.2-35.5 (BEAKER) (test code = 752) RED CELL DISTRIBUTION WIDTH 15.9 % 11.7-14.4 H (BEAKER) (test code = 412) PLATELET COUNT (BEAKER) (test code 76 K/CU MM 150-450 L = 756) MEAN [...] (test code = 437) NEUTROPHILS ABSOLUTE COUNT 3.06 K/ L 1.56-6.13 (BEAKER) (test code = 670) LYMPHOCYTES ABSOLUTE COUNT 0.60 K/ L 1.18-3.74 L (BEAKER) (test code = 414) MONOCYTES ABSOLUTE COUNT (BEAKER) 0.82 K/ L 0.24-0.36 H (test code = 415) EOSINOPHILS ABSOLUTE COUNT 0.22 K/ L 0.04-0.36 (BEAKER) (test code = 416) BASOPHILS ABSOLUTE COUNT (BEAKER) 0.03 K/ L 0.01-0.08 (test code = 417) IMMATURE GRANULOCYTES-RELATIVE 0.20 % 0.00-1.00 PERCENT (BEAKER) (test code = 2801) PROTHROMBIN TIME/[id number] 05:48:21 Test Item Value Reference Range Interpretation Comments PROTIME (BEAKER) (test code = 21.0 seconds 11.9-14.2 H 759) INR (BEAKER) (test code = 370) 1.85 <=5.90 RECOMMENDED COUMADIN/WARFARIN INR THERAPY RANGESSTANDARD DOSE: 2.0 - 3.0 Includes: PROPHYLAXIS for venous thrombosis, systemic embolization; TREATMENT for venous thrombosis and/or pulmonary embolus.HIGH RISK: Target INR is 2.5-3.5 for patients with mechanical heart valves.BLOOD CULTURE IDENTIFICATION PANEL 2023-07-06 05:31:21 Test Item Value Reference Interpretation Comments Range MCR-1 (BEAKER) (test Non Applicable Not detected code = 3794116322) CTX-M (BEAKER) (test Non Applicable Not detected code = 9800351992) IMP ([place]) (test code = Non Applicable Not Detected 7712212837) KPC (BKR) (test code = Non Applicable Not detected 8833388165) NDM (BKR) (test code = Non Applicable Not Detected 0845017078) OXA-48-LIKE (BKR) Non Applicable Not Detected (test code = 7163408548) VIM (BKR) (test code = Non Applicable Not detected 0772375948) MEC A/C ([place]) (test Detected Not detected A Methicill in code = 3899599269) resistanc e has been detected. MEC A/C AND MREJ Non Applicable Not Detected (MRSA) [place] (test code = 1735719059) VAN A/B (VANCOMYCIN Non Applicable Not detected RESISTANCE) (test code = 8894585645) ENTEROCOCCUS FAECALIS Not detected Not detected (BKR) (test code = 3087150737) ENTEROCOCCUS FAECIUM Not detected Not detected (BKR) (test code = 5198687019) LISTERIA MONOCYTOGENES Not detected Not detected (test code = 20160614) STAPHYLOCOCCUS (test Detected Not detected A code = 2930690) STAPHYLOCOCCUS AUREUS Not detected Not detected (test code = 20160818) STAPHYLOCOCCUS Detected Not detected A Methicillin EPIDERMIDIS ([place]) (test Resis tant code = 8910824658) Staphyloc occus epidermidis (MR-CoNS).First line therapy: Vancomycin.Note : Possible contamination. The likelihood of pathogenicity i s increased if th e organism is observed in multiple blood cultures obtain ed from separate venipunctures. STAPHYLOCOCCUS Not detected Not detected LUGDENENSIS (BKR) (test code = 8300414990) STREPTOCOCCUS (test Not detected Not detected code = 20160819) STREPTOCOCCUS Not detected Not detected AGALACTIAE (GROUP B) (test code = 8764394) STREPTOCOCCUS Not detected Not detected PNEUMONIAE (test code = 4200735) STREPTOCOCCUS PYOGENES Not detected Not detected (GROUP A) (test code = 0215809) ACINETOBACTER Not detected Not detected CALCOACETICUS-BAUMANNI I COMPLEX (BKR) (test code = 7712) BACTEROIDES FRAGILIS Not detected Not detected ([place]) (test code = 4286850643) ENTEROBACTERALES (test Not detected Not detected code = 3248397594) ENTEROBACTER CLOACOE Not detected Not detected COMPLEX (test code = 3631311) ESCHERICHIA COLI (test Not detected Not detected code = 8355305) KLEBSIELLA AEROGENES Not detected Not detected (BKR) (test code = 5856866791) KLEBSIELLA OXYTOCA Not detected Not detected (test code = 4191210) KLEBSIELLA PNEUMONIAE Not detected Not detected GROUP (test code = 5614212955) PROTEUS (test code = Not detected Not detected 5316153) SALMONELLA SPECIES Not detected Not detected ([place]) (test code = 7201196050) SERRATIA MARCESCENS Not detected Not detected (test code = 5662783) HAEMOPHILUS INFLUENZAE Not detected Not detected (test code = 2683067) NEISSERIA MENINGITIDIS Not detected Not detected (test code = 6320817) PSEUDOMONAS Not detected Not detected AERUGINOSA-BEAKER (test code = 6524593) STENOTROPHOMONAS Not detected Not detected MALTOPHILIA (BKR) (test code = 2745546233) BRITTANY ALBICANS (test Not detected Not detected code = 4963562) BRITTANY AURIS ([place]) Not detected Not detected (test code = 6664281728) BRITTANY GLABRATA (test Not detected Not detected code = 4321516) BRITTANY KRUSEI (test Not detected Not detected code = 0377641) BRITTANY PARAPSILOSIS Not detected Not detected (test code = 8582426) BRITTANY TROPICALIS Not detected Not detected (BKR) (test code = 0183686) CRYPTOCOCCUS Not detected Not detected NEOFORMANS/GATTII (test code = 7337030753) Other bacteria and resistance markers not targeted by this PCR panel cannot be excluded; therefore clinical correlation and follow up of serology, culture results, and other molecular studies is required. The results are not intended to be used as the sole means for clinical diagnosis or patient management decisions. This sample was tested at the [facility] using the OriginGPS Blood Culture ID Panel. It is FDA cleared and has been verified and approved by the [facility] for clinical use. This laboratory is CLIA-certified and College ofAmerican Pathologists (CAP)-accredited to perform high complexity testing.URINALYSIS W/ REFLEX URINE [id number] 11:37:59 Test Item Value Reference Range Interpretation Comments COLOR (BEAKER) (test code = 470) Yellow CLARITY (BEAKER) (test code = 469) Cloudy SPECIFIC GRAVITY UA (BEAKER) (test 1.018 1.001-1.035 code = 468) PH UA (BEAKER) [...] A 465) LEUKOCYTE ESTERASE UA (BEAKER) (test Small Negative A code = 466) UROBILINOGEN UA (BEAKER) (test code 0.2 0.2-1.0 = 463) RBC UA (BEAKER) (test code = 519) 8 /HPF WBC UA (BEAKER) (test code = 520) 10 /HPF BACTERIA (BEAKER) (test code = 517) Few SQUAMOUS EPITHELIAL (BEAKER) (test 2 /HPF code = 516) SOURCE(BEAKER) (test code = 2795) Filler Shredding Machine Loader ID - [auto]Filler Shredding Machine Loader ID - tech [id number] 08:44:05 [facility] : 1965 Sex: FUltrasound guided left thoracentesis.Clinical History: Left pleural effusion.Modality: Ultrasound.Sedation: None. Child Protection Specialist: Lupe Youngt: None. Estimated Blood Loss: 1ccSpecimen: 2150 cc of clear yellow fluid. Technique: Informed [...] area wasanesthetized with 2% lidocaine, a 4 F valved one-step catheter wasadvanced into the pleural space under ultrasound guidance. Aftercompletion of drainage, thecatheter was removed. There was no evidenceof immediate complication. Post procedure chest x-ray demonstrated nopneumothorax. IMPRESSION:Impression:Successful and uncomplicated ultrasound guided left thoracentesis. Electronically Signed By: Mikael Darnell07/05/2023 08:46 CDTWorkstation Name: [id number] BRAIN WITHOUT IV [id number] 04:46:07[facility] : 1965 Sex: FEXAM: CT BRAIN WITHOUT IV CONTRASTINDICATION: Head trauma, mod-severeTECHNIQUE: CT images from skull base to vertex without IV contrast.This exam was performed according to the departmental dose optimizationprogram which includes automated exposure control, adjustment of the mAand/or kV according to the patient size, and/or use of an iterativereconstruction technique.COMPARISON: 03/30/2023FINDINGS: Parench yma: No evidence of acute infarction. No hemorrhage. No mass ormass effect.Extra-axial Collection: NoneVentricular System: NormalOsseous Structures: No acute osseous abnormality. Included Orbits: NormalParanasal Sinuses: Predominantly clearTympanomastoid Cavities: NormalOther: NoneIMPRESSION:No acute abnormality on CT head without contrast.Electronically Signed By: Erika Almazan07/05/2023 04:49 CDTWorkstation Name: [id number], [id number] 03:54:56 Test Item Value Reference Range Interpretation Comments FREE T4 (BEAKER) (test code = 655) 0.85 ng/dL 0.70-1.48 Filler Shredding Machine Loader ID - ADMINTSH/FREE T4 IF [id number] 03:22:04 Test Item Value Reference Range Interpretation Comments THYROID STIMULATING HORMONE 5.176 uIU/mL 0.350-4.940 H (BEAKER) (test code = 772) Filler Shredding Machine Loader ID - ADMINHIGH SENSITIVITY TROPONIN [id number] 03:02:49 Test Item Value Reference Range Interpretation Comments HIGH SENSITIVITY TROPONIN I (test < pg/ml <=17 code = 5968464) Filler Shredding Machine Loader ID - ADMINThe AUTOMATIC LATHE SETTER STAT High Sensitivity Troponin-I results should be used in conjunction with other diagnostic information such as ECG, clinical observations and information, and patientsymptoms to aid in the diagnosis of ND. HEPATIC FUNCTION [id number] 02:56:07 Test Item Value Reference Range Interpretation Comments TOTAL PROTEIN (BEAKER) 6.3 gm/dL 6.0-8.3 Speci men slightly (test code = 770) hemolyzed ALBUMIN (BEAKER) (test 3.2 g/dL 3.5-5.0 L Speci men slightly code = 1145) hemolyzed BILIRUBIN TOTAL 2.2 mg/dL 0.2-1.2 H Specimen sli ghtly (BEAKER) (test code = hemoly zed 377) BILIRUBIN DIRECT 0.6 mg/dL 0.1-0.5 H Specimen sl ightly (BEAKER) (test code = hemoly zed 706) ALKALINE PHOSPHATASE 82 U/L 40-150 (BEAKER) (test code = 346) AST (SGOT) (BEAKER) 40 U/L 5-34 H Specimen slightly (test code = 353) hemolyzed ALT (SGPT) (BEAKER) 22 U/L 6-55 Specimen slightly (test code = 347) hemolyzed Filler Shredding Machine Loader ID - ADMINSpecimen slightly ictericBASIC METABOLIC [id number] 02:56:06 Test Item Value Reference Range Interpretation Comments SODIUM (BEAKER) 135 meq/L 136-145 L (test code = 381) POTASSIUM 5.0 meq/L 3.5-5.1 Specimen slight ly (BEAKER) (test hemolyzed code = 379) CHLORIDE (BEAKER) 109 meq/L 98-107 H (test code = 382) CO2 (BEAKER) 13 meq/L 22-29 L (test code = 355) BLOOD UREA 39 mg/dL 7-21 H NITROGEN (BEAKER) (test code = 354) CREATININE 1.70 mg/dL 0.57-1.25 H Specimen slight ly (BEAKER) (test hemolyzed code = 358) GLUCOSE RANDOM 111 mg/dL 70-105 H (BEAKER) (test code = 652) CALCIUM (BEAKER) 8.3 mg/dL 8.4-10.2 L (test code = 697) EGFR (BEAKER) 34 Interpretati on of eGFR (test code = [...] not appl icable for dialysis patien ts Filler Shredding Machine Loader ID - ADMINSpecimen slightly ictericCBC W/PLT COUNT & AUTO [id number] 02:41:31 Test Item Value Reference Range Interpretation Comments WHITE BLOOD CELL COUNT (BEAKER) 6.4 K/ L 3.5-10.5 (test code = 775) RED BLOOD CELL COUNT (BEAKER) 2.68 M/ L 3.93-5.22 L (test code = 761) HEMOGLOBIN (BEAKER) (test code = 9.0 GM/DL 11.2-15.7 L 410) HEMATOCRIT (BEAKER) (test code = 26.7 % 34.1-44.9 L 411) MEAN CORPUSCULAR VOLUME (BEAKER) 100 fL 79-95 H (test code = 753) MEAN CORPUSCULAR HEMOGLOBIN 33.6 pg 25.6-32.2 H (BEAKER) (test code = 751) MEAN CORPUSCULAR HEMOGLOBIN CONC 33.7 GM/DL 32.2-35.5 (BEAKER) (test code = 752) RED CELL DISTRIBUTION WIDTH 15.5 % 11.7-14.4 H (BEAKER) (test code = 412) PLATELET COUNT (BEAKER) (test code 84 K/CU MM 150-450 L = 756) MEAN PLATELET VOLUME (BEAKER) 11.4 fL 9.4-12.3 (test code = 754) NUCLEATED RED BLOOD CELLS (BEAKER) 0 /100 WBC 0-0 (test code = 413) NEUTROPHILS RELATIVE PERCENT 75 % (BEAKER) (test code = 429) LYMPHOCYTES RELATIVE PERCENT 9 % (BEAKER) (test code = 430) MONOCYTES RELATIVE PERCENT 14 % (BEAKER) (test code = 431) EOSINOPHILS RELATIVE PERCENT 1 % (BEAKER) (test code = 432) BASOPHILS RELATIVE PERCENT 0 % (BEAKER) (test code = 437) NEUTROPHILS ABSOLUTE COUNT 4.82 K/ L 1.56-6.13 (BEAKER) (test code = 670) LYMPHOCYTES ABSOLUTE COUNT 0.57 K/ L 1.18-3.74 L (BEAKER) (test code = 414) MONOCYTES ABSOLUTE COUNT (BEAKER) 0.91 K/ L 0.24-0.36 H (test code = 415) EOSINOPHILS ABSOLUTE COUNT 0.06 K/ L 0.04-0.36 (BEAKER) (test code = 416) BASOPHILS ABSOLUTE COUNT (BEAKER) 0.02 K/ L 0.01-0.08 (test code = 417) IMMATURE GRANULOCYTES-RELATIVE 0.50 % 0.00-1.00 PERCENT (BEAKER) (test code = 2801) XR CHEST 1 VIEW PORTABLE / [id number] 02:15:04 [facility] : 1965 Sex: FXR CHEST 1 VIEW PORTABLE / BEDSIDEINDICATION: ALTERED MENTAL STATUSCOMPARISON: Prior day's examFINDINGS:Portable frontal view of the chest. IMPRESSION:Support Lines: None Lungs and pleura: Unchanged smallleft pleural effusion. No new airspaceconsolidation. No pneumothorax.Heart and mediastinum: Stable contours. Additional findings: None.Electronically Signed By: Erika Almazan07/05/2023 02:17 CDTWorkstation Name: [id number] 16:25:00Medical Cytology Report Case: [id number] Authorizing Provider: Bebe Cox MD Collected: 06/30/2023 1 2:02 PM Ordering Location: [facility] Received: 07/01/2023 09:21 AM Pathologist: Hany Ferrer MD Specimen: Pleural LEFT PLEURAL FLUID (CYTOSPINS AND CELL BLOCK): - NEGATIVE FOR MALIGNANCY Reactive mesothelial cells admixed chronic inflammatory cells Signing Pathologist Direct Phone Line: [phone] signed by Hany Ferrer MD on 07/04/2023 at 4:24 [id number], [id number] y.o. F presented with left pleural effusion and ascites, has a h/o cirrhosis, pneumonia (04/2023), asthma, COVID-19 (2021)LEFT PLEURAL FLUIDA. PleuralReceived 1100 ml bloody fluid; prepared 4 cytospins and cell b lock(A2)(collodion bag)- the cell block was fixed in formalin at 13:02 on 07/01/2023erformed.[facility], Department of Pathology, [address] [place] [address], [facility], Department of [facility]ology, [address] [place] [address], [facility], Department of Pathology, [address] [place] [address], SY[facility] FLUID CELL COUNT WITH [id number] 12:49:34 Test Item Value Reference Range Interpretation Comments APPEARANCE FLUID (BEAKER) (test Cloudy Clear A code = 510) COLOR FLUID (BEAKER) (test code Red Colorless, Straw A = 511) RBC FLUID (BEAKER) (test code = 44105 /cu mm <=1 H 513) TOTAL NUCLEATED CELL COUNT 828 /cu mm <=5 H (BEAKER) (test code = 1442) ADJUSTED WBC FLUID (BEAKER) 820 /cu mm <=5 H (test code = 1691) LINING CELLS/OTHERS, CALCULATED 8 /cu mm <=1 H (BEAKER) (test code = 1590) NEUTROPHILS FLUID (BEAKER) 5 % (test code = 1656) LYMPHS FLUID (BEAKER) (test 63 % code = 488) MONO/MACROPHAGE FLUID (BEAKER) 32 % (test code = 489) EOSINOPHILS FLUID (BEAKER) 0 % (test code = 491) BASO FLUID (BEAKER) (test code 0 % = 492) CONTAINER BODY FLUID (BEAKER) EDTA Tube (test code = 2873) XR CHEST 1 VIEW PORTABLE / [id number] 11:05:44 [facility] : 1965 Sex: FXR CHEST 1 VIEW PORTABLE / BEDSIDECLINICAL HISTORY: s/p left thoracentesis TECHNIQUE: Single view of the chest.COMPARISON: June 30, 2023IMPRESSION:Small left pleural effusion reduced. Similar left lung base atelectasisor scarring. Right lung is clear. No pneumothorax. The cardiomediastinalsilhouette is unremarkable for AP technique. The osseous structuresappear stable.Electronically Signed By: Wilber Hylton07/04/2023 11:07 CDTWorkstation Name: [id number] FLUID CULTURE + GRAM [id number] 13:52:20 Test Item Value Reference Range Interpretation Comments CULTURE (BEAKER) (test code = 1095) No growth BODY FLUID CULTURE + GRAM [id number] 13:52:20 Test Item Value Reference Range Interpretation Comments CULTURE (BEAKER) (test code = 1095) No growth US [id number] 17:02:[address] [facility] 1965 Sex: FUltrasound guided left thoracentesis.Clinical History: Left pleural effusion.Modality: Ultrasound.Sedation: None. Child Protection Specialist: Danuta Corralistant: None. Estimated Blood Loss: 1ccSpecimen: 2200 cc of cloudy serosanguineous fluid. Technique: Informed [...] uncomplicated ultrasound guided left thoracentesis.Electronically Signed By: Lee Diaz06/30/2023 17:04 CDTWorkstation Name: [id number] 17:02:29 [facility] : 1965 Sex: FUltrasound guided paracentesis.Clinical History: Ascites.Sedation: None. Child Protection Specialist: Danuta Rodrigesistant: None. Estimated Blood Loss: < 1 cc.Specimen: 3300 cc of cloudy serosanguineous fluid, samples sent tolaboratory.Technique: Informed consent was obtained. The risks of pain, bleeding,infection, bowel perforation, injury to adjacent structures, and adversemedication reactions were discussed with the patient. After informedconsent was obtained, the patient's abdomen was scanned. The rightupper quadrant of the abdomen was selected for paracentesis. After thelargest fluid pocket area was marked, and the anterior abdominal wallwas evaluated with color Doppler to exclude presence of blood vesselstraversing the area, the skin was prepped and draped in the usualsterile manner. After localanesthesia was achieved with 2% lidocaine,a 5 Italian one-step catheter was advanced into the peritoneal cavityunder ultrasound guidance. After completion of drainage, the catheterwas removed. There wasno evidence of complication.IMPRESSION:Impression:Successful ultrasound guided paracentesis.Electronically Signed By: Lee Diaz06/30/2023 17:04 CDTWorkstation Name: [id number] FLUID CELL COUNT WITH [id number] 14:51:10 Test Item Value Reference Range Interpretation Comments APPEARANCE FLUID (BEAKER) (test Cloudy Clear A code = 510) COLOR FLUID (BEAKER) (test code [place] Colorless, Straw A = 511) RBC FLUID (BEAKER) (test code = 94940 /cu mm <=1 H 513) TOTAL NUCLEATED CELL COUNT 338 /cu mm <=5 H (BEAKER) (test code = 1442) ADJUSTED WBC FLUID (BEAKER) 335 /cu mm <=5 H (test code = 1691) LINING CELLS/OTHERS, CALCULATED 3 /cu mm <=1 H (BEAKER) (test code = 1590) NEUTROPHILS FLUID (BEAKER) 44 % (test code = 1656) LYMPHS FLUID (BEAKER) (test 31 % code = 488) MONO/MACROPHAGE FLUID (BEAKER) 25 % (test code = 489) EOSINOPHILS FLUID (BEAKER) 0 % (test code = 491) BASO FLUID (BEAKER) (test code 0 % = 492) CONTAINER BODY FLUID (BEAKER) Sterile Vial (test code = 2873) BODY FLUID CELL COUNT WITH [id number] 14:48:47 Test Item Value Reference Range Interpretation Comments APPEARANCE FLUID (BEAKER) (test Cloudy Clear A code = 510) COLOR FLUID (BEAKER) (test code [place] Colorless, Straw A = 511) RBC FLUID (BEAKER) (test code = 25841 /cu mm <=1 H 513) TOTAL NUCLEATED CELL COUNT 671 /cu mm <=5 H (BEAKER) (test code = 1442) ADJUSTED WBC FLUID (BEAKER) 671 /cu mm <=5 H (test code = 1691) LINING CELLS/OTHERS, CALCULATED 0 /cu mm <=1 (BEAKER) (test code = 1590) NEUTROPHILS FLUID (BEAKER) 3 % (test code = 1656) LYMPHS FLUID (BEAKER) (test 90 % code = 488) MONO/MACROPHAGE FLUID (BEAKER) 7 % (test code = 489) EOSINOPHILS FLUID (BEAKER) 0 % (test code = 491) BASO FLUID (BEAKER) (test code 0 % = 492) CONTAINER BODY FLUID (BEAKER) Sterile Vial (test code = 2873) BILIRUBIN, [id number] 14:20:49 Test Item Value Reference Range Interpretation Comments BILIRUBIN DIRECT (BEAKER) (test 0.7 mg/dL 0.1-0.5 H code = 706) Filler Shredding Machine Loader ID - emCOMPREHENSIVE METABOLIC [id number] 14:20:48 Test Item Value Reference Range Interpretation Comments TOTAL PROTEIN 6.2 gm/dL 6.0-8.3 (BEAKER) (test code = 770) ALBUMIN (BEAKER) 3.4 g/dL 3.5-5.0 L (test code = 1145) ALKALINE 91 U/L 40-150 PHOSPHATASE (BEAKER) (test code = 346) BILIRUBIN TOTAL 1.5 mg/dL 0.2-1.2 H (BEAKER) (test code = 377) SODIUM (BEAKER) 133 meq/L 136-145 L (test code = 381) POTASSIUM (BEAKER) 4.3 meq/L 3.5-5.1 (test code = 379) CHLORIDE (BEAKER) 109 meq/L 98-107 H (test code = 382) CO2 (BEAKER) (test 18 meq/L 22-29 L code = 355) BLOOD UREA 40 mg/dL 7-21 H NITROGEN (BEAKER) (test code = 354) CREATININE 1.50 mg/dL 0.57-1.25 H (BEAKER) (test code = 358) GLUCOSE RANDOM 79 mg/dL 70-105 (BEAKER) (test code = 652) CALCIUM (BEAKER) 8.1 mg/dL 8.4-10.2 L (test code = 697) AST (SGOT) 32 U/L 5-34 (BEAKER) (test code = 353) ALT (SGPT) 18 U/L 6-55 (BEAKER) (test code = 347) EGFR (BEAKER) 40 Interpretatio n of eGFR (test code = [...] not appl icable for dialysis patien ts Filler Shredding Machine Loader ID - emPROTHROMBIN TIME/[id number] 14:05:38 Test Item Value Reference Range Interpretation Comments PROTIME (BEAKER) (test code = 20.8 seconds 11.9-14.2 H 759) INR (BEAKER) (test code = 370) 1.82 <=5.90 RECOMMENDED COUMADIN/WARFARIN INR THERAPY RANGESSTANDARD DOSE: 2.0 - 3.0 Includes: PROPHYLAXIS for venous thrombosis, systemic embolization; TREATMENT for venous thrombosis and/or pulmonary embolus.HIGH RISK: Target INR is 2.5-3.5 for patients with mechanical heart valves.CBC W/PLT COUNT & AUTO [id number] 13:49:16 Test Item Value Reference Range Interpretation Comments WHITE BLOOD CELL COUNT (BEAKER) 5.4 K/ L 3.5-10.5 (test code = 775) RED BLOOD CELL COUNT (BEAKER) 2.81 M/ L 3.93-5.22 L (test code = 761) HEMOGLOBIN (BEAKER) (test code = 9.5 GM/DL 11.2-15.7 L 410) HEMATOCRIT (BEAKER) (test code = 28.6 % 34.1-44.9 L 411) MEAN CORPUSCULAR VOLUME (BEAKER) 102 fL 79-95 H (test code = 753) MEAN CORPUSCULAR HEMOGLOBIN 33.8 pg 25.6-32.2 H (BEAKER) (test code = 751) MEAN CORPUSCULAR HEMOGLOBIN CONC 33.2 GM/DL 32.2-35.5 (BEAKER) (test code = 752) RED CELL DISTRIBUTION WIDTH 15.4 % 11.7-14.4 H (BEAKER) (test code = 412) PLATELET COUNT (BEAKER) (test code 69 K/CU MM 150-450 L = 756) MEAN PLATELET VOLUME (BEAKER) 10.3 fL 9.4-12.3 (test code = 754) NUCLEATED [...] (test code = 437) NEUTROPHILS ABSOLUTE COUNT 3.62 K/ L 1.56-6.13 (BEAKER) (test code = 670) LYMPHOCYTES ABSOLUTE COUNT 0.65 K/ L 1.18-3.74 L (BEAKER) (test code = 414) MONOCYTES ABSOLUTE COUNT (BEAKER) 0.80 K/ L 0.24-0.36 H (test code = 415) EOSINOPHILS ABSOLUTE COUNT 0.24 K/ L 0.04-0.36 (BEAKER) (test code = 416) BASOPHILS ABSOLUTE COUNT (BEAKER) 0.04 K/ L 0.01-0.08 (test code = 417) IMMATURE GRANULOCYTES-RELATIVE 0.20 % 0.00-1.00 PERCENT (BEAKER) (test code = 2801) XR CHEST 1 VIEW PORTABLE / [id number] 13:07:18 [facility] : 1965 Sex: FCLINICAL HISTORY: s/p left thora TECHNIQUE: 1 view of the chest.COMPARISON: 06/28/2023IMPRESSION:No pneumothorax. Small left pleural effusion appears decreased. Thereare no infiltrates. There is no cardiomegaly.Electronically Signed By: Antwan Flor06/30/2023 13:09 CDTWorkstation Name: [id number] FLUID CULTURE + GRAM [id number] 13:11:55 Test Item Value Reference Range Interpretation Comments CULTURE (BEAKER) (test code = 1095) No growth CT CHEST WITHOUT IV [id number] 05:33:19 [facility] : 1965 Sex: FCLINICAL HISTORY: Unlisted Reason for Exambloody thoracentesis fluid, chest/abd painFINDINGS:Multiple axial images of the chest, abdomen and pelvis were performedwithout IV contrast. Oral contrast was not given.This exam was performed according to our departmental dose-optimizationprogram, which includes automated exposure control, adjustment of the mAand/or kV according to patient size and/or use of the iterativereconstruction technique.Comparison: CT abdomen pelvis dated 06/20/2023.Chest:Lung parenchyma: Dependent/compressive atelectasis in the left lowerlung versus scarring.The lungs are otherwise clear.Pleural effusion: Moderate to large, simple density left pleuraleffusion. Trace right pleural effusion.Pneumothorax: None.Tracheobronchial tree: No significant findings.Pulmonary vasculature: No significant findings.Cardiac contours and great vessels: No significant findings.Mediastinum: No significant findings.Lymph Nodes: No adenopathy in the mediastinum or xu.Skeleton: No acute abnormality.Abdomen and pelvis:Liver: Cirrhotic hepatic morphologyGallbladder and biliary tree: There is a plastic double pigtail stentextending from the gallbladder lumen into the duodenum.Spleen: Splenomegaly, measuring 15 cm in maximum dimension.Adrenal Glands: No significant findings.Kidneys and ureters: No significant findings.Stomach and Duodenum: The distal portion of a plastic double pigtailgallbladder stentis in the duodenum.Pancreas: No significant findings.Bowel: No bowel obstruction or pneumatosis intestinalis.Appendix: NonvisualizedBladder: No significant findings.Major vascular structures: No significant findings.Reproductive organs: No significant findings.Other: Moderate to large volume, simple density ascites.Skeleton: No acute bony abnormality.IMPRESSION:Moderate to large, simple density left pleural effusion and trace rightpleural effusion.Cirrhosis and evidence of portal hypertension, including moderate tolarge volume, simple density ascites.Plastic, double pigtail stent extending from thegallbladder lumen tothe duodenum.Electronically Signed By: Nicolas Sauer06/28/2023 05:36 CDTWorkstation Name: [id number] ABDOMEN/PELVIS WITHOUT IV [id number] 05:33:19[facility] : 1965 Sex: FCLINICAL HISTORY: Unlisted Reason for Exambloody thoracentesis fluid, chest/abd painFINDINGS:Multiple axial images of the chest, abdomen and pelvis were performedwithout IV contrast. Oral contrast was not given.This exam was performed according to our departmental dose-optimizationprogram, which includes automated exposure control, adjustment of the mAand/or kV according to patient size and/or use of theiterativereconstruction technique.Comparison: CT abdomen pelvis dated 06/20/2023.Chest:Lung parenchyma: Dependent/compressive atelectasis in the left lowerlung versus scarring.The lungs are otherwise clear.Pleural effusion: Moderate to large, simple density left pleuraleffusion. Trace right pleural effusion.Pneumothorax: None.Tracheobronchial tree: No significant findings.Pulmonary vasculature: No significant findings.Cardiac contours and great vessels: No significant findings.Mediastinum: No significant findings.Lymph Nodes: No adenopathy in the mediastinum or xu.Skeleton: No acute abnormality.Abdomen and pelvis:Liver: Cirrhotic hepatic morphologyGallbladder and biliary tree: There is a plastic double pigtail stentextending from the gallbladder lumen into the duodenum.Spleen: Splenomegaly, measuring 15 cm in maximum dimension.Adrenal Glands: No significant findings.Kidneys and ureters: No significant findings.Stomach and Duodenum: The distal portion of a plastic double pigtailgallbladder stent is in the duodenum.Pancreas: No significant findings.Bowel: No bowel obstruction or pneumatosis intestinalis.Appendix: NonvisualizedBladder: No significant findings.Major vascular structures: No significant findings.Reproductive organs: No significant findings.Other: Moderate to large volume, simple density ascites.Skeleton: No acute bony abnormality.IMPRESSION:Moderate to large, simple density leftpleural effusion and trace rightpleural effusion.Cirrhosis and evidence of portal hypertension, including moderate tolarge volume, simple density ascites.Plastic, double pigtail stent extending from the gallbladder lumen tothe duodenum.Electronically Signed By: Nicolas Sauer06/28/2023 05:36 CDTWorkstation Name: [id number] METABOLIC [id number] 04:01:28 Test Item Value Reference Range Interpretation Comments SODIUM (BEAKER) 131 meq/L 136-145 L (test code = 381) POTASSIUM 4.8 meq/L 3.5-5.1 (BEAKER) (test code = 379) CHLORIDE (BEAKER) 109 meq/L 98-107 H (test code = 382) CO2 (BEAKER) 16 meq/L 22-29 L (test code = 355) BLOOD UREA 33 mg/dL 7-21 H NITROGEN (BEAKER) (test code = 354) CREATININE 1.64 mg/dL 0.57-1.25 H (BEAKER) (test code = 358) GLUCOSE RANDOM 95 mg/dL 70-105 (BEAKER) (test code = 652) CALCIUM (BEAKER) 7.7 mg/dL 8.4-10.2 L (test code = 697) EGFR (BEAKER) 36 Interpretatio n of eGFR (test code = [...] not appl icable for dialysis patien ts Filler Shredding Machine Loader ID - EMXR CHEST 2 [id number] 00:59:58 [facility] : 1965 Sex: FEXAM: XR CHEST 2 VIEWSCLINICAL: shobCOMPARISON: None.FINDINGS:Unchanged left basilar airspace opacities and small left effusion. Theright lung is clear. No pneumothorax. The cardiac silhouette andmediastinal contours are stable. Osseous structures are stable.IMPRESSION:No significant interval change. Electronically Signed By: Roopa Jeter06/28/2023 01:02 CDTWorkstation Name: [id number] W/PLT COUNT & AUTO [id number] 00:29:31 Test Item Value Reference Range Interpretation Comments WHITE BLOOD CELL COUNT (BEAKER) 9.9 K/ L 3.5-10.5 (test code = 775) RED BLOOD CELL COUNT (BEAKER) 3.05 M/ L 3.93-5.22 L (test code = 761) HEMOGLOBIN (BEAKER) (test code = 10.5 GM/DL 11.2-15.7 L 410) HEMATOCRIT (BEAKER) (test code = 30.7 % 34.1-44.9 L 411) MEAN CORPUSCULAR VOLUME (BEAKER) 101 fL 79-95 H (test code = 753) MEAN CORPUSCULAR HEMOGLOBIN 34.4 pg 25.6-32.2 H (BEAKER) (test code = 751) MEAN CORPUSCULAR HEMOGLOBIN CONC 34.2 GM/DL 32.2-35.5 (BEAKER) (test code = 752) RED CELL DISTRIBUTION WIDTH 15.5 % 11.7-14.4 H (BEAKER) (test code = 412) PLATELET COUNT (BEAKER) (test code 91 K/CU MM 150-450 L = 756) MEAN PLATELET VOLUME (BEAKER) 10.2 fL 9.4-12.3 (test code = 754) NUCLEATED RED BLOOD CELLS (BEAKER) 0 /100 WBC 0-0 (test code = 413) NEUTROPHILS RELATIVE PERCENT 74 % (BEAKER) (test code = 429) LYMPHOCYTES RELATIVE PERCENT 8 % (BEAKER) (test code = 430) MONOCYTES RELATIVE PERCENT 15 % (BEAKER) (test code = 431) EOSINOPHILS RELATIVE PERCENT 3 % (BEAKER) (test code = 432) BASOPHILS RELATIVE PERCENT 0 % (BEAKER) (test code = 437) NEUTROPHILS ABSOLUTE COUNT 7.31 K/ L 1.56-6.13 H (BEAKER) (test code = 670) LYMPHOCYTES ABSOLUTE COUNT 0.83 K/ L 1.18-3.74 L (BEAKER) (test code = 414) MONOCYTES ABSOLUTE COUNT (BEAKER) 1.44 K/ L 0.24-0.36 H (test code = 415) EOSINOPHILS ABSOLUTE COUNT 0.25 K/ L 0.04-0.36 (BEAKER) (test code = 416) BASOPHILS ABSOLUTE COUNT (BEAKER) 0.04 K/ L 0.01-0.08 (test code = 417) IMMATURE GRANULOCYTES-RELATIVE 0.30 % 0.00-1.00 PERCENT (BEAKER) (test code = 2801) US [id number] 14:45:20 [facility] : 1965 Sex: FUltrasound guided left thoracentesis.Clinical History: Left pleural effusion.Modality: Ultrasound.Sedation: None. Child Protection Specialist: Danuta Corralistant: None. Estimated Blood Loss: 1ccSpecimen: 2100 cc of nonclotting hemorrhagic fluid. Technique: Informed consent was obtained. The [...] wasanesthetized with 2% lidocaine, a 5 F one-stepcatheter was advancedinto the pleural space under ultrasound guidance. After completion ofdrainage, the catheter was removed. There was no evidence of immediatecomplication. Post procedure chest x-ray demonstrated no pneumothorax. IMPRESSION:Impression:Successful and uncomplicated ultrasound guided left thoracentesis.Electronically Signed By: Mikael Darnell06/27/2023 14:47 CDTWorkstation Name: [id number] CHEST 1 VIEW PORTABLE / [id number] 09:08:30[facility] : 1965 Sex: FCLINICAL HISTORY: s/p left thoraTECHNIQUE: 1 view of the chest.COMPARISON: 06/23/2023IMPRESSION:No pneumothorax. Blunting of the left costophrenic angle is unchanged.There is no lobar consolidation or cardiomegaly.Electronically Signed By: Antwan Flor06/27/2023 09:10 CDTWorkstation Name: [id number] FLUID CELL COUNT WITH [id number] 14:54:54 Test Item Value Reference Range Interpretation Comments APPEARANCE FLUID (BEAKER) (test Bloody Clear A code = 510) COLOR FLUID (BEAKER) (test code Red Colorless, Straw A = 511) RBC FLUID (BEAKER) (test code = 23692 /cu mm <=1 H 513) TOTAL NUCLEATED CELL COUNT 431 /cu mm <=5 H (BEAKER) (test code = 1442) ADJUSTED WBC FLUID (BEAKER) 431 /cu mm <=5 H (test code = 1691) LINING CELLS/OTHERS, CALCULATED 0 /cu mm <=1 (BEAKER) (test code = 1590) NEUTROPHILS FLUID (BEAKER) 17 % (test code = 1656) LYMPHS FLUID (BEAKER) (test 75 % code = 488) MONO/MACROPHAGE FLUID (BEAKER) 8 % (test code = 489) EOSINOPHILS FLUID (BEAKER) 0 % (test code = 491) BASO FLUID (BEAKER) (test code 0 % = 492) CONTAINER BODY FLUID (BEAKER) Sterile Vial (test code = 2873) BODY FLUID CELL COUNT WITH [id number] 14:54:24 Test Item Value Reference Range Interpretation Comments APPEARANCE FLUID (BEAKER) (test Bloody Clear A code = 510) COLOR FLUID (BEAKER) (test code Red Colorless, Straw A = 511) RBC FLUID (BEAKER) (test code = 60095 /cu mm <=1 H 513) TOTAL NUCLEATED CELL COUNT 654 /cu mm <=5 H (BEAKER) (test code = 1442) ADJUSTED WBC FLUID (BEAKER) 654 /cu mm <=5 H (test code = 1691) LINING CELLS/OTHERS, CALCULATED 0 /cu mm <=1 (BEAKER) (test code = 1590) NEUTROPHILS FLUID (BEAKER) 4 % (test code = 1656) LYMPHS FLUID (BEAKER) (test 87 % code = 488) MONO/MACROPHAGE FLUID (BEAKER) 9 % (test code = 489) EOSINOPHILS FLUID (BEAKER) 0 % (test code = 491) BASO FLUID (BEAKER) (test code 0 % = 492) CONTAINER BODY FLUID (BEAKER) Sterile Vial (test code = 2873) BODY FLUID CULTURE + GRAM [id number] 13:19:32 Test Item Value Reference Range Interpretation Comments CULTURE (BEAKER) (test code = 1095) No growth US [id number] 11:39:20 [facility] : 1965 Sex: FUltrasound guided left thoracentesis.Clinical History: Left pleural effusion.Modality: Ultrasound.Sedation: None. Child Protection Specialist: Danuta VERONICACAssistant: None. Estimated Blood Loss: 1ccSpecimen: 2500 cc of cloudy serosanguineous fluid. Technique: Informed [...] evidence of immediatecomplication. Post procedure chest x-ray is pending. IMPRESSION:Impression:Successful and uncomplicated ultrasound guided left thoracentesis.Electronically Signed By: Mikael Darnell06/23/2023 11:41 CDTWorkstation Name: [id number] 11:39:19 [facility] : 1965 Sex: FUltrasound guided paracentesis.Clinical History: Ascites.Sedation: None. Child Protection Specialist: Danuta Corralistant: None. Estimated Blood Loss: < 1 cc.Specimen: 3800 cc of cloudy serosanguineous fluid, samples sent tolaboratory.Technique: Informed consent was obtained. The risks of pain, bleeding,infection, bowel perforation, injury to adjacent structures, and adversemedication reactions were discussed with the patient. After informedconsent was obtained, the patient's abdomen was scanned. The rightupper quadrant of the abdomen was selected for paracentesis. After thelargest fluid pocket area was marked, and the anterior abdominal wallwas evaluated with color Doppler to exclude presence of blood vesselstraversing the area, the skin was prepped and draped in the usualsterile manner. After local anesthesia was achieved with 2% lidocaine,a 5 Italian one- step catheter was advanced into the peritoneal cavityunder ultrasound guidance. After completion of drainage, the catheterwas removed. There was no evidence of complication.IMPRESSION:Impression:Successful ultrasound guided paracentesis.Electronically Signed By: Mikael Darnell06/23/2023 11:41 CDTWorkstation Name: [id number] CHEST 1 VIEW PORTABLE / [id number] 10:05:06[facility] : 1965 Sex: FChest AP portableCOMPARISON STUDY: 06/20/2023History provided: Status post left thoracentesisNo evidence of pneumothorax. Atelectatic change at the left costophrenicangle. Lungs otherwise grossly clear and vascularity normal.Electronically Signed By: Mp Infante 10:29 CDTWorkstation Name: [id number] 12:06:58 [facility] BISI PATIENCELEIDY CURTIS : 1965 Sex: FUltrasound guided left thoracentesis.Clinical History: Left pleural effusion.Modality: Ultrasound.Sedation: None. Child Protection Specialist: Ellis Lylesistant: None. Estimated Blood Loss: 1ccSpecimen: [...] area wasanesthetized with 2% lidocaine, a 4 Italian one-step catheter wasadvanced into the pleural space under ultrasound guidance. Aftercompletion of drainage, the catheter was removed. There was no evidenceof immediate complication. Post procedure chest x-ray demonstrated nopneumothorax. IMPRESSION:Impression:Successful and uncomplicated ultrasound guided left thoracentesis.Electronically Signed By: Lj Stevenson MD06/22/2023 12:09 CDTWorkstation Name: [id number] FLUID CELL COUNT WITH DIFFERENTIAL 2023-06-20 19:53:16 Test Item Value Reference Range Interpretation Comments APPEARANCE FLUID (BEAKER) (test Turbid Clear A code = 510) COLOR FLUID (BEAKER) (test code [place] Colorless, Straw A = 511) RBC FLUID (BEAKER) (test code = 69436 /cu mm <=1 H 513) TOTAL NUCLEATED CELL COUNT 718 /cu mm <=5 H (BEAKER) (test code = 1442) ADJUSTED WBC FLUID (BEAKER) 718 /cu mm <=5 H (test code = 1691) LINING CELLS/OTHERS, CALCULATED 0 /cu mm <=1 (BEAKER) (test code = 1590) NEUTROPHILS FLUID (BEAKER) 15 % (test code = 1656) LYMPHS FLUID (BEAKER) (test 65 % code = 488) MONO/MACROPHAGE FLUID (BEAKER) 19 % (test code = 489) EOSINOPHILS FLUID (BEAKER) 1 % (test code = 491) BASO FLUID (BEAKER) (test code 0 % = 492) CONTAINER BODY FLUID (BEAKER) EDTA Tube (test code = 2873) BODY FLUID CELL COUNT WITH [id number] 19:08:56 Test Item Value Reference Range Interpretation Comments APPEARANCE FLUID Cloudy Clear A (BEAKER) (test code = 510) COLOR FLUID (BEAKER) Red Colorless, Straw A (test code = 511) RBC FLUID (BEAKER) 58334 /cu mm <=1 H (test code = 513) TOTAL NUCLEATED CELL 448 /cu mm <=5 H COUNT (BEAKER) (test code = 1442) ADJUSTED WBC FLUID 423 /cu mm <=5 H (BEAKER) (test code = 1691) LINING CELLS/OTHERS, 25 /cu mm <=1 H CALCULATED (BEAKER) (test code = 1590) NEUTROPHILS FLUID 28 % (BEAKER) (test code = 1656) LYMPHS FLUID (BEAKER) 12 % (test code = 488) MONO/MACROPHAGE FLUID 58 % (BEAKER) (test code = 489) EOSINOPHILS FLUID 2 % (BEAKER) (test code = 491) BASO FLUID (BEAKER) 0 % (test code = 492) INTERPRETATION-210 Negative for (BEAKER) (test code = malignancy 2619) [id number] Shaneka Saab M.D. (BEAKER) (test code = (electronic 2620) signature) CONTAINER BODY FLUID EDTA Tube (BEAKER) (test code = 2873) XR CHEST 1 VIEW PORTABLE / [id number] 17:34:06 [facility] : 1965 Sex: FTECHNIQUE: Frontal view of the chest.INDICATION: s/p left thoracentesis.COMPARISON: 06/20/2023 at 10:12 AM.FINDINGS:LINES/TUBES: None.HEART AND MEDIASTINUM: Cardiomediastinal contour is within normallimits. LUNGS: The lungs are well inflated and clear. No consolidation orpulmonary edema.PLEURA: Decrease in size of left pleural effusion. No pneumothorax.SOFT TISSUES AND BONES: Unremarkable.IMPRESSION:No pneumothorax status post left thoracentesis. Small residual leftpleural effusion remains. Improved aeration of the left lung base.Electronically Signed By: Adilia Polanco06/20/2023 17:36 CDTWorkstation Name: [id number] ABDOMEN/PELVIS WITH IV [id number] 13:52:23 [facility] EVER : 1965 Sex: FCT of the abdomen and pelvis, with contrastClinical History: Unlisted Reason for ExamLUQ abdominal painTechnique: CT of the abdomen and pelvis is performed with intravenouscontrast administration. This examwas performed according to ourdepartmental dose optimization program which includes automated exposur econtrol, adjustment of the mA and/or kV according to patient's sizeand/or use of iterative reconstructive technique.Comparison Film: May 13, 2023 and May 103Discussion:There is a large left-sided pleural effusion and a small right effusion.Liver is cirrhotic. No discrete liver mass is seen on this single phasepostcontrast scan. Hepatic vasculature appears patent.There is sludge and/or small stones within the gallbladder. Nosignificant biliary ductal dilatation. A double pigtail drainagecatheter traverses across the gallbladder and the duodenum.Spleen is enlarged and measures 15.8 cm sagittally. The pancreas, andadrenal glands are unremarkable.Kidneys demonstrate no mass, hydronephrosis, or radiopaque stone.No evidence of bowel obstruction, or abnormal bowel wall thickening.In the pelvis, bladder is decompressed. There is a slightly exophyticfibroid in the posterior uterine body. Noadnexal mass.There is a large amount of ascites. No free air. Varices are present. Nolymphadenopathy.Mild anasarca. Bony structures demonstrate mild degenerative changes.IMPRESSION:Impression:Cirrhosis, and portal hypertension. There is a large amount of ascites.Large left, small right pleural effusions, and mild anasarca.Sludge and/or stones in the gallbladder. There is a double pigtaildrainage catheter between the gallbladder and duodenum.Electronically Signed By: Manish Panda06/20/2023 13:54 CDTWorkstation Name: [id number] NATRIURETIC FACTOR (BNP)2023-06-20 10:56:51 Test Item Value Reference Range Interpretation Comments B-TYPE NATRIURETIC PEPTIDE (BEAKER) 40 pg/mL 0-100 (test code = 700) Filler Shredding Machine Loader ID - ADMINHIGH SENSITIVITY TROPONIN [id number] 10:56:34 Test Item Value Reference Range Interpretation Comments HIGH SENSITIVITY TROPONIN I (test < pg/ml <=17 code = 8138317) Filler Shredding Machine Loader ID - ADMINThe AUTOMATIC LATHE SETTER STAT High Sensitivity Troponin-I results should be used in conjunction with other diagnostic information such as ECG, clinical observations and information, and patientsymptoms to aid in the diagnosis of ND. HEPATIC FUNCTION [id number] 10:50:36 Test Item Value Reference Range Interpretation Comments TOTAL PROTEIN (BEAKER) (test code = 6.2 gm/dL 6.0-8.3 770) ALBUMIN (BEAKER) (test code = 1145) 3.2 g/dL 3.5-5.0 L BILIRUBIN TOTAL (BEAKER) (test code 1.8 mg/dL 0.2-1.2 H = 377) BILIRUBIN DIRECT (BEAKER) (test 0.9 mg/dL 0.1-0.5 H code = 706) ALKALINE PHOSPHATASE (BEAKER) (test 73 U/L 40-150 code = 346) AST (SGOT) (BEAKER) (test code = 43 U/L 5-34 H 353) ALT (SGPT) (BEAKER) (test code = 24 U/L 6-55 347) Filler Shredding Machine Loader ID - [id number] 10:50:36 Test Item Value Reference Range Interpretation Comments LIPASE (BEAKER) (test code = 749) 115 U/L 8-78 H Filler Shredding Machine Loader ID - ADMINBASIC METABOLIC [id number] 10:50:35 Test Item Value Reference Range Interpretation Comments SODIUM (BEAKER) 134 meq/L 136-145 L (test code = 381) POTASSIUM 4.4 meq/L 3.5-5.1 (BEAKER) (test code = 379) CHLORIDE (BEAKER) 109 meq/L 98-107 H (test code = 382) CO2 (BEAKER) 17 meq/L 22-29 L (test code = 355) BLOOD UREA 36 mg/dL 7-21 H NITROGEN (BEAKER) (test code = 354) CREATININE 1.51 mg/dL 0.57-1.25 H (BEAKER) (test code = 358) GLUCOSE RANDOM 101 mg/dL 70-105 (BEAKER) (test code = 652) CALCIUM (BEAKER) 8.2 mg/dL 8.4-10.2 L (test code = 697) EGFR (BEAKER) 40 Interpretatio n of eGFR (test code = [...] not appl icable for dialysis patien ts Filler Shredding Machine Loader ID - ADMINPT/[id number] 10:39:45 Test Item Value Reference Range Interpretation Comments PROTIME (BEAKER) (test code = 21.9 seconds 11.9-14.2 H 759) INR (BEAKER) (test code = 370) 1.97 <=5.90 PARTIAL THROMBOPLASTIN TIME 28.3 seconds 22.5-36.0 (BEAKER) (test code = 760) RECOMMENDED COUMADIN/WARFARIN INR THERAPY RANGESSTANDARD DOSE: 2.0 - 3.0 Includes: PROPHYLAXIS for venous thrombosis, systemic embolization; TREATMENT for venous thrombosis and/or pulmonary embolus.HIGH RISK: Target INR is 2.5-3.5 for patients with mechanical heart valves.XR CHEST 1 VIEW PORTABLE / BEDSIDE 2023-06-20 10:38:10 [facility] : 1965 Sex: FINDICATION: SHORTNESS OF BREATHCOMPARISON: 06/15/2023TECHNIQUE: Single frontal view of the chest.FINDINGS:Lungs and pleura: Left basilar airspace disease, possibly withunderlying effusion, increased from prior exam 06/15/2023.Heart and mediastinum: Normal heart size. Unremarkable mediastinalcontours.Osseous structures: No acute abnormality.Other: None. Electronically Signed By: Estrella Walters06/20/2023 10:40 CDTWorkstation Name: [id number] W/PLT COUNT & AUTO [id number] 10:31:23 Test Item Value Reference Range Interpretation Comments WHITE BLOOD CELL COUNT (BEAKER) 6.5 K/ L 3.5-10.5 (test code = 775) RED BLOOD CELL COUNT (BEAKER) 2.88 M/ L 3.93-5.22 L (test code = 761) HEMOGLOBIN (BEAKER) (test code = 9.9 GM/DL 11.2-15.7 L 410) HEMATOCRIT (BEAKER) (test code = 29.4 % 34.1-44.9 L 411) MEAN CORPUSCULAR VOLUME (BEAKER) 102 fL 79-95 H (test code = 753) MEAN CORPUSCULAR HEMOGLOBIN 34.4 pg 25.6-32.2 H (BEAKER) (test code = 751) MEAN CORPUSCULAR HEMOGLOBIN CONC 33.7 GM/DL 32.2-35.5 (BEAKER) (test code = 752) RED CELL DISTRIBUTION WIDTH 15.7 % 11.7-14.4 H (BEAKER) (test code = 412) PLATELET COUNT (BEAKER) (test code 79 K/CU MM 150-450 L = 756) MEAN PLATELET VOLUME (BEAKER) 10.7 fL 9.4-12.3 (test code = 754) NUCLEATED RED BLOOD CELLS (BEAKER) 0 /100 WBC 0-0 (test code = 413) NEUTROPHILS RELATIVE PERCENT 74 % (BEAKER) (test code = 429) LYMPHOCYTES RELATIVE PERCENT 11 % (BEAKER) (test code = 430) MONOCYTES RELATIVE PERCENT 12 % (BEAKER) (test code = 431) EOSINOPHILS RELATIVE PERCENT 2 % (BEAKER) (test code = 432) BASOPHILS RELATIVE PERCENT 0 % (BEAKER) (test code = 437) NEUTROPHILS ABSOLUTE COUNT 4.80 K/ L 1.56-6.13 (BEAKER) (test code = 670) LYMPHOCYTES ABSOLUTE COUNT 0.69 K/ L 1.18-3.74 L (BEAKER) (test code = 414) MONOCYTES ABSOLUTE COUNT (BEAKER) 0.80 K/ L 0.24-0.36 H (test code = 415) EOSINOPHILS ABSOLUTE COUNT 0.14 K/ L 0.04-0.36 (BEAKER) (test code = 416) BASOPHILS ABSOLUTE COUNT (BEAKER) 0.02 K/ L 0.01-0.08 (test code = 417) IMMATURE GRANULOCYTES-RELATIVE 0.30 % 0.00-1.00 PERCENT (BEAKER) (test code = 2801) BODY FLUID CULTURE + GRAM [id number] 18:20:33 Test Item Value Reference Range Interpretation Comments CULTURE (BEAKER) (test code = 1095) No growth US [id number] 15:11:52 [facility] : 1965 Sex: FUltrasound guided left thoracentesis.Clinical History: Left pleural effusion.Modality: Ultrasound.Sedation: None. Child Protection Specialist: Lupe Youngt: None. Estimated Blood Loss: 1ccSpecimen: 2100 cc of cloudy serosanguineous fluid. Technique: Informed consent was obtained. The risks of pain, bleeding,infection, lung collapse/pneumothorax, injury to adjacent structures,and adverse medicationreactions were discussed with the patient. Thepatient's left hemithorax was scanned from the back, with the patient rowena sitting position. After the largest fluid pocket area was marked, theskin was prepped and draped in the usual sterile manner. The area wasanesthetized with 2% lidocaine, a 4 F valvedone-step catheter wasadvanced into the pleural space under ultrasound guidance. Aftercompletion of drainage, the catheter was removed. There was no evidenceof immediate complication. Post procedure chest x- ray demonstrated nopneumothorax. IMPRESSION:Impression:Successful and uncomplicated ultrasound guided left thoracentesis.Electronically Signed By: Mikael Darnell06/16/2023 15:14 CDTWorkstation Name:[id number] PARACENTESIS 2023-06-16 10:41:45 [facility] : 1965 Sex: FProcedure: Ultrasound-guided paracentesis, 06/16/2023HISTORY: Recurrent ascitesAnesthesia: 1% lidocaineApproach: Right lateral abdomenModality: UltrasoundTECHNIQUE: After obtaining written informed consent, this procedure wasperformed without untoward effect.Ultrasound was used to scan the abdomen. A maximum pocket of fluid isnoted in the right lateral abdomen.The skin overlying this site was examined withcolor Doppler confirmingthe absence of significant intervening vascularity. The skin was thenpreppedand anesthetized. A 5 Italian needle/catheter was inserted intothe peritoneal cavity and 3.75 L of reddish-yellow, cloudy fluid wereremoved. The catheter was removed.CONCLUSION:Ultrasound-guided paracent esis.Electronically Signed By: Fahad Nuno 10:46 CDTWorkstation Name: [id number] CHEST 1 VIEW PORTABLE / [id number] 07:29:51 [facility] : 1965 Sex: FXR CHEST 1 VIEW PORTABLE / BEDSIDECLINICAL HISTORY: left side thoracentesis TECHNIQUE: Single view of thechest.COMPARISON: June 13, 2023IMPRESSION:Reduced left lung base opacities suggestive of compressive atelectasiswith possible residual small effusion. No pneumothorax. Thecardiomediastinal silhouetteis unremarkable for AP technique. Theosseous structures appear stable.Electronically Signed By: Joselin Hylton06/16/2023 07:31 CDTWorkstation Name: [id number] FLUID CELL COUNT WITH [id number] 21:25:01 Test Item Value Reference Range Interpretation Comments APPEARANCE FLUID (BEAKER) (test Bloody Clear A code = 510) COLOR FLUID (BEAKER) (test code Red Colorless, Straw A = 511) RBC FLUID (BEAKER) (test code = 30352 /cu mm <=1 H 513) TOTAL NUCLEATED CELL COUNT 731 /cu mm <=5 H (BEAKER) (test code = 1442) ADJUSTED WBC FLUID (BEAKER) 710 /cu mm <=5 H (test code = 1691) LINING CELLS/OTHERS, CALCULATED 21 /cu mm <=1 H (BEAKER) (test code = 1590) NEUTROPHILS FLUID (BEAKER) 8 % (test code = 1656) LYMPHS FLUID (BEAKER) (test 31 % code = 488) MONO/MACROPHAGE FLUID (BEAKER) 60 % (test code = 489) EOSINOPHILS FLUID (BEAKER) 1 % (test code = 491) BASO FLUID (BEAKER) (test code 0 % = 492) CONTAINER BODY FLUID (BEAKER) Sterile Vial (test code = 3483) BODY FLUID CELL COUNT WITH [id number] 18:15:44 Test Item Value Reference Range Interpretation Comments APPEARANCE FLUID Turbid Clear A (BEAKER) (test code = 510) COLOR FLUID (BEAKER) [place] Colorless, Straw A (test code = 511) RBC FLUID (BEAKER) 41546 /cu mm <=1 H (test code = 513) TOTAL NUCLEATED CELL 469 /cu mm <=5 H COUNT (BEAKER) (test code = 1442) ADJUSTED WBC FLUID 447 /cu mm <=5 H (BEAKER) (test code = 1691) LINING CELLS/OTHERS, 22 /cu mm <=1 H CALCULATED (BEAKER) (test code = 1590) NEUTROPHILS FLUID 34 % (BEAKER) (test code = 1656) LYMPHS FLUID (BEAKER) 22 % (test code = 488) MONO/MACROPHAGE FLUID 44 % (BEAKER) (test code = 489) EOSINOPHILS FLUID 0 % (BEAKER) (test code = 491) BASO FLUID (BEAKER) 0 % (test code = 492) INTERPRETATION-210 Negative for (BEAKER) (test code = malignancy 2619) [id number] Shaneka Saab M.D. (BEAKER) (test code = (electronic 2620) signature) CONTAINER BODY FLUID EDTA Tube (BEAKER) (test code = 9193) BODY FLUID CELL COUNT WITH [id number] 18:14:08 Test Item Value Reference Range Interpretation Comments APPEARANCE FLUID Turbid Clear A (BEAKER) (test code = 510) COLOR FLUID (BEAKER) [place] Colorless, Straw A (test code = 511) RBC FLUID (BEAKER) 72158 /cu mm <=1 H (test code = 513) TOTAL NUCLEATED CELL 381 /cu mm <=5 H COUNT (BEAKER) (test code = 1442) ADJUSTED WBC FLUID 374 /cu mm <=5 H (BEAKER) (test code = 1691) LINING CELLS/OTHERS, 7 /cu mm <=1 H CALCULATED (BEAKER) (test code = 1590) NEUTROPHILS FLUID 14 % (BEAKER) (test code = 1656) LYMPHS FLUID (BEAKER) 36 % (test code = 488) MONO/MACROPHAGE FLUID 50 % (BEAKER) (test code = 489) EOSINOPHILS FLUID 0 % (BEAKER) (test code = 491) BASO FLUID (BEAKER) 0 % (test code = 492) INTERPRETATION-210 Negative for (BEAKER) (test code = malignancy 2619) [id number] Shaneka Saab M.D. (BEAKER) (test code = (electronic 2620) signature) CONTAINER BODY FLUID EDTA Tube (BEAKER) (test code = 2873) US [id number] 09:02:50 [facility] : 1965 Sex: FUltrasound guided left thoracentesis.Clinical History: Left pleural effusion.Modality: Ultrasound.Sedation: None. Child Protection Specialist: Ellis Lylesistant: None. Estimated Blood Loss: 1ccSpecimen: [...] area wasanesthetized with 2% lidocaine, a 4 Italian one-step catheter wasadvanced into the pleural space under ultrasound guidance. Aftercompletion of drainage, the catheter was removed. There was no evidenceof immediate complication. Post procedure chest x-ray demonstrated nopneumothorax. IMPRESSION:Impression:Successful and uncomplicated ultrasound guided left thoracentesis.Electronically Signed By: Chano Baxter 09:04 CDTWorkstation Name: [id number] FLUID CELL COUNT WITH DIFFERENTIAL 2023-06-13 14:07:46 Test Item Value Reference Range Interpretation Comments APPEARANCE FLUID (BEAKER) Bloody Clear A (test code = 510) COLOR FLUID (BEAKER) (test [place] Colorless, Straw A code = 511) RBC FLUID (BEAKER) (test 23906 /cu mm <=1 H code = 513) TOTAL NUCLEATED CELL COUNT 617 /cu mm <=5 H (BEAKER) (test code = 1442) ADJUSTED WBC FLUID 599 /cu mm <=5 H (BEAKER) (test code = 1691) LINING CELLS/OTHERS, 18 /cu mm <=1 H CALCULATED (BEAKER) (test code = 1590) NEUTROPHILS FLUID (BEAKER) 7 % (test code = 1656) LYMPHS FLUID (BEAKER) 56 % (test code = 488) MONO/MACROPHAGE FLUID 37 % (BEAKER) (test code = 489) EOSINOPHILS FLUID (BEAKER) 0 % (test code = 491) BASO FLUID (BEAKER) (test 0 % code = 492) CONTAINER BODY FLUID Sterile Container (BEAKER) (test code = 2873) COMPREHENSIVE METABOLIC [id number] 12:02:40 Test Item Value Reference Range Interpretation Comments TOTAL PROTEIN 6.2 gm/dL 6.0-8.3 (BEAKER) (test code = 770) ALBUMIN (BEAKER) 3.5 g/dL 3.5-5.0 (test code = 1145) ALKALINE 82 U/L 40-150 PHOSPHATASE (BEAKER) (test code = 346) BILIRUBIN TOTAL 1.5 mg/dL 0.2-1.2 H (BEAKER) (test code = 377) SODIUM (BEAKER) 132 meq/L 136-145 L (test code = 381) POTASSIUM (BEAKER) 4.1 meq/L 3.5-5.1 (test code = 379) CHLORIDE (BEAKER) 106 meq/L 98-107 (test code = 382) CO2 (BEAKER) (test 18 meq/L 22-29 L code = 355) BLOOD UREA 55 mg/dL 7-21 H NITROGEN (BEAKER) (test code = 354) CREATININE 1.81 mg/dL 0.57-1.25 H (BEAKER) (test code = 358) GLUCOSE RANDOM 88 mg/dL 70-105 (BEAKER) (test code = 652) CALCIUM (BEAKER) 8.0 mg/dL 8.4-10.2 L (test code = 697) AST (SGOT) 37 U/L 5-34 H (BEAKER) (test code = 353) ALT (SGPT) 18 U/L 6-55 (BEAKER) (test code = 347) EGFR (BEAKER) 32 Interpretatio n of eGFR (test code = [...] not appl icable for dialysis patien ts Filler Shredding Machine Loader ID - JSBILIRUBIN, [id number] 12:02:40 Test Item Value Reference Range Interpretation Comments BILIRUBIN DIRECT (BEAKER) (test 0.7 mg/dL 0.1-0.5 H code = 706) Filler Shredding Machine Loader ID - JSURINALYSIS W/ [id number] 12:02:07 Test Item Value Reference Range Interpretation Comments COLOR (BEAKER) (test code Yellow = 470) CLARITY (BEAKER) (test Hazy code = 469) SPECIFIC GRAVITY UA 1.018 1.001-1.035 (BEAKER) (test code = 468) PH UA (BEAKER) (test code 5.5 5.0-8.0 = 467) PROTEIN UA (BEAKER) (test [...] = 463) RBC UA (BEAKER) (test code 29 /HPF = 519) WBC UA (BEAKER) (test code 5 /HPF = 520) MUCUS (BEAKER) (test code Rare = 1574) SQUAMOUS EPITHELIAL < /HPF (BEAKER) (test code = 516) HYALINE CASTS (BEAKER) 2 /LPF (test code = 514) YEAST (BEAKER) (test code Rare = 1585) SOURCE(BEAKER) (test code Urine, Clean Catch = 2795) Filler Shredding Machine Loader ID - [auto]Filler Shredding Machine Loader ID - techPROTHROMBIN TIME/[id number] 11:39:52 Test Item Value Reference Range Interpretation Comments PROTIME (BEAKER) (test code = 21.0 seconds 11.9-14.2 H 759) INR (BEAKER) (test code = 370) 1.85 <=5.90 RECOMMENDED COUMADIN/WARFARIN INR THERAPY RANGESSTANDARD DOSE: 2.0 - 3.0 Includes: PROPHYLAXIS for venous thrombosis, systemic embolization; TREATMENT for venous thrombosis and/or pulmonary embolus.HIGH RISK: Target INR is 2.5-3.5 for patients with mechanical heart valves.CBC W/PLT COUNT & AUTO [id number] 11:17:07 Test Item Value Reference Range Interpretation Comments WHITE BLOOD CELL COUNT (BEAKER) 6.7 K/ L 3.5-10.5 (test code = 775) RED BLOOD CELL COUNT (BEAKER) 2.60 M/ L 3.93-5.22 L (test code = 761) HEMOGLOBIN (BEAKER) (test code = 8.9 GM/DL 11.2-15.7 L 410) HEMATOCRIT (BEAKER) (test code = 26.9 % 34.1-44.9 L 411) MEAN CORPUSCULAR VOLUME (BEAKER) 104 fL 79-95 H (test code = 753) MEAN CORPUSCULAR HEMOGLOBIN 34.2 pg 25.6-32.2 H (BEAKER) (test code = 751) MEAN CORPUSCULAR HEMOGLOBIN CONC 33.1 GM/DL 32.2-35.5 (BEAKER) (test code = 752) RED CELL DISTRIBUTION WIDTH 15.3 % 11.7-14.4 H (BEAKER) (test code = 412) PLATELET COUNT (BEAKER) (test code 81 K/CU MM 150-450 L = 756) MEAN PLATELET VOLUME (BEAKER) 10.0 fL 9.4-12.3 (test code = 754) NUCLEATED RED BLOOD CELLS (BEAKER) 0 /100 WBC 0-0 (test code = 413) NEUTROPHILS RELATIVE PERCENT 71 % (BEAKER) (test code = 429) LYMPHOCYTES RELATIVE PERCENT 10 % (BEAKER) (test code = 430) MONOCYTES RELATIVE PERCENT 15 % (BEAKER) (test code = 431) EOSINOPHILS RELATIVE PERCENT 4 % (BEAKER) (test code = 432) BASOPHILS RELATIVE PERCENT 1 % (BEAKER) (test code = 437) NEUTROPHILS ABSOLUTE COUNT 4.74 K/ L 1.56-6.13 (BEAKER) (test code = 670) LYMPHOCYTES ABSOLUTE COUNT 0.66 K/ L 1.18-3.74 L (BEAKER) (test code = 414) MONOCYTES ABSOLUTE COUNT (BEAKER) 0.99 K/ L 0.24-0.36 H (test code = 415) EOSINOPHILS ABSOLUTE COUNT 0.27 K/ L 0.04-0.36 (BEAKER) (test code = 416) BASOPHILS ABSOLUTE COUNT (BEAKER) 0.04 K/ L 0.01-0.08 (test code = 417) IMMATURE GRANULOCYTES-RELATIVE 0.10 % 0.00-1.00 PERCENT (BEAKER) (test code = 2801) XR CHEST 1 VIEW PORTABLE / [id number] 10:26:47 [facility] : 1965 Sex: FXR CHEST 1 VIEW PORTABLE / BEDSIDECLINICAL HISTORY: s/p left thoracentesis TECHNIQUE: Single view of the chest.COMPARISON: June 09, 2023IMPRESSION:Left lung base opacities likely atelectasis or pneumonia. However, asmall left pleural effusion may remain. Right lung is clear. Nopneumothorax. The cardiomediastinal silhouette is magnified bytechnique. The osseous structures appear stable.Electronically Signed By: Wilber Hylton06/13/2023 10:28 CDTWorkstation Name: [id number] 12:00:40 Test Item Value Reference Range Interpretation Comments CULTURE (BEAKER) (test No growth in 5 days code = 1095) BLOOD [id number] 12:00:40 Test Item Value Reference Range Interpretation Comments CULTURE (BEAKER) (test No growth in 5 days code = 1095) US [id number] 12:18:33 [facility] : 1965 Sex: FULTRASOUND GUIDED PARACENTESISHistory provided: Cirrhosis, recurrent ascitesPROCEDURE: Informed consent was obtained. Patient's medication list was reviewed.Timeout procedure was performed. Strict sterile barrier was employed.The abdomen was examined with ultrasound and a suitable site forparacentesis was identified. The skin over this area was prepped anddraped in sterile fashion. Lidocaine 2% was used for local anesthesia.With ultrasound guidance, the peritoneal cavity was accessed with a 5French one-stick sheathed needle. Approximately 4000 cc of yellow,clear fluid was aspirated. When no further fluid could be aspirated,repeat ultrasound imaging demonstrated no significant residual fluid.The catheter was removed and a sterile dressing was applied. The patienttolerated the procedure well without apparent complications. The fluidwas submitted to the laboratory as requested. 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 The chest was examinedwith ultrasound and a suitable site for thoracentesis was identified inthe left hemithorax. The skin over this area was prepped and draped insterile fashion. Lidocaine 2% was used for local anesthesia. Withultrasound guidance, t he pleural space was accessed with a one-stick 5French sheathed needle. Approximately 2000 cc of strawberry coloredfluid was aspirated. The catheter was removed and a sterile dressing wasapplied. The patient tolerated the procedure well without apparentcomplications. The fluid was submitted to the laboratory as requested. IMPRESSION:Uneventful ultrasound guided thoracentesis.Electronically Signed By:Mp Harris06/09/2023 11:47 CDTWorkstation Name: [id number] CHEST 1 VIEW PORTABLE / [id number] 11:38:35 [facility] : 1965 Sex: FChest AP portable erectCOMPARISON STUDY: 06/07/2023History provided: Status post 2 L left thoracentesis, hepatichydrothoraxSmall amount of pleural fluid remains on the left. No pneumothorax.Lungs are clear and heart size normal.Electronically Signed By: Mp Roth 11:40 CDTWorkstation Name: [id number] CHEST 2 [id number] 13:30:11 [facility] PATIENCELEIDY CURTIS : 1965 Sex: FEXAMINATION: XR CHEST 2 VIEWS INDICATION: SOBCOMPARISON: CXR of the prior day FINDINGS:LINES/TUBES: NoneLUNGS: The lungs are well inflated. No focal airspace consolidation.PLEURA: No pleural effusion or pneumothorax.MEDIASTINUM: Interval development of moderate left pleural effusion.BONES/SOFT TISSUES: No acute osseous injury.ABDOMEN: No free air under the diaphragm.IMPRESSION:Moderate left pleural effusion.Electronically Signed By: Alexandro Alberto06/07/2023 13:32 CDTWorkstation Name: [id number] FETOPROTEIN (AFP), TUMOR [id number] 13:04:03 Test Item Value Reference Range Interpretation Comments ALPHA-FETOPROTEIN (BEAKER) (test 2.4 ng/mL <10.0 code = 1094) Filler Shredding Machine Loader ID - ADMINCBC W/PLT COUNT & AUTO [id number] 12:46:38 Test Item Value Reference Range Interpretation Comments WHITE BLOOD CELL COUNT (BEAKER) 7.7 K/ L 3.5-10.5 (test code = 775) RED BLOOD CELL COUNT (BEAKER) 2.91 M/ L 3.93-5.22 L (test code = 761) HEMOGLOBIN (BEAKER) (test code = 9.9 GM/DL 11.2-15.7 L 410) HEMATOCRIT (BEAKER) (test code = 29.9 % 34.1-44.9 L 411) MEAN CORPUSCULAR VOLUME (BEAKER) 103 fL 79-95 H (test code = 753) MEAN CORPUSCULAR HEMOGLOBIN 34.0 pg 25.6-32.2 H (BEAKER) (test code = 751) MEAN CORPUSCULAR HEMOGLOBIN CONC 33.1 GM/DL 32.2-35.5 (BEAKER) (test code = 752) RED CELL DISTRIBUTION WIDTH 15.1 % 11.7-14.4 H (BEAKER) (test code = 412) PLATELET COUNT (BEAKER) (test 102 K/CU MM 150-450 L code = 756) MEAN PLATELET VOLUME (BEAKER) 10.2 fL 9.4-12.3 (test code = 754) NUCLEATED RED BLOOD CELLS 0 /100 WBC 0-0 (BEAKER) (test code = 413) NEUTROPHILS RELATIVE PERCENT 71 % (BEAKER) (test code = 429) LYMPHOCYTES RELATIVE PERCENT 10 % (BEAKER) (test code = 430) MONOCYTES RELATIVE PERCENT 15 % (BEAKER) (test code = 431) EOSINOPHILS RELATIVE PERCENT 3 % (BEAKER) (test code = 432) BASOPHILS RELATIVE PERCENT 1 % (BEAKER) (test code = 437) NEUTROPHILS ABSOLUTE COUNT 5.47 K/ L 1.56-6.13 (BEAKER) (test code = 670) LYMPHOCYTES ABSOLUTE COUNT 0.77 K/ L 1.18-3.74 L (BEAKER) (test code = 414) MONOCYTES ABSOLUTE COUNT (BEAKER) 1.14 K/ L 0.24-0.36 H (test code = 415) EOSINOPHILS ABSOLUTE COUNT 0.23 K/ L 0.04-0.36 (BEAKER) (test code = 416) BASOPHILS ABSOLUTE COUNT (BEAKER) 0.04 K/ L 0.01-0.08 (test code = 417) IMMATURE GRANULOCYTES-RELATIVE 0.40 % 0.00-1.00 PERCENT (BEAKER) (test code = 2801) COMPREHENSIVE METABOLIC [id number] 12:03:20 Test Item Value Reference Range Interpretation Comments TOTAL PROTEIN 6.2 gm/dL 6.0-8.3 (BEAKER) (test code = 770) ALBUMIN (BEAKER) 3.4 g/dL 3.5-5.0 L (test code = 1145) ALKALINE 100 U/L 40-150 PHOSPHATASE (BEAKER) (test code = 346) BILIRUBIN TOTAL 1.5 mg/dL 0.2-1.2 H (BEAKER) (test code = 377) SODIUM (BEAKER) 134 meq/L 136-145 L (test code = 381) POTASSIUM (BEAKER) 4.0 meq/L 3.5-5.1 (test code = 379) CHLORIDE (BEAKER) 106 meq/L 98-107 (test code = 382) CO2 (BEAKER) (test 23 meq/L 22-29 code = 355) BLOOD UREA 41 mg/dL 7-21 H NITROGEN (BEAKER) (test code = 354) CREATININE 1.89 mg/dL 0.57-1.25 H (BEAKER) (test code = 358) GLUCOSE RANDOM 103 mg/dL 70-105 (BEAKER) (test code = 652) CALCIUM (BEAKER) 8.1 mg/dL 8.4-10.2 L (test code = 697) AST (SGOT) 38 U/L 5-34 H (BEAKER) (test code = 353) ALT (SGPT) 21 U/L 6-55 (BEAKER) (test code = 347) EGFR (BEAKER) 30 Interpretatio n of eGFR (test code = [...] not appl icable for dialysis patien ts Filler Shredding Machine Loader ID - EOBILIRUBIN, [id number] 12:03:20 Test Item Value Reference Range Interpretation Comments BILIRUBIN DIRECT (BEAKER) (test 0.8 mg/dL 0.1-0.5 H code = 706) Filler Shredding Machine Loader ID - EOPROTHROMBIN TIME/[id number] 11:59:37 Test Item Value Reference Range Interpretation Comments PROTIME (BEAKER) (test code = 20.6 seconds 11.9-14.2 H 759) INR (BEAKER) (test code = 370) 1.81 <=5.90 RECOMMENDED COUMADIN/WARFARIN INR THERAPY RANGESSTANDARD DOSE: 2.0 - 3.0 Includes: PROPHYLAXIS for venous thrombosis, systemic embolization; TREATMENT for venous thrombosis and/or pulmonary embolus.HIGH RISK: Target INR is 2.5-3.5 for patients with mechanical heart valves. [id number] 13:54:41 [facility] : 1965 Sex: FUltrasound guided left thoracentesis.Clinical History: Left pleural effusion.Modality: Ultrasound.Sedation: None. Child Protection Specialist: Ellis Lylesistant: None. Estimated Blood Loss: 1ccSpecimen: 2050 cc of cloudy serosanguineous fluid. Technique: Informed consent was obtained. The risks of pain, bl eeding,infection, lung collapse/pneumothorax, injury to adjacent structures,and adverse medication reactions were discussed with the patient. Thepatient's left hemithorax was scanned from the back, with the patient rowena sitting position. After the largest fluid pocket area was marked, theskin was prepped and draped in the usual sterile manner. The area wasanesthetized with 2% lidocaine, a 4 Italian one-step catheter wasadvanced into the pleural space under ultrasound guidance. Aftercompletion of drainage, the catheter was removed. There was no evidenceof immediate complication. Post procedure chest x-ray demonstrated nopneumothorax. IMPRESSION:Impression:Successful and uncomplicated ultrasound guided left thoracentesis.Electronically Signed By: Galen Lovett06/06/2023 13:56 CDTWorkstation Name: [id number] FLUID CELL COUNT WITH DIFFERENTIAL 2023-06-06 13:34:54 Test Item Value Reference Range Interpretation Comments APPEARANCE FLUID (BEAKER) Turbid Clear A (test code = 510) COLOR FLUID (BEAKER) (test [place] Colorless, Straw A code = 511) RBC FLUID (BEAKER) (test 18492 /cu mm <=1 H code = 513) TOTAL NUCLEATED CELL COUNT 688 /cu mm <=5 H (BEAKER) (test code = 1442) ADJUSTED WBC FLUID 688 /cu mm <=5 H (BEAKER) (test code = 1691) LINING CELLS/OTHERS, 0 /cu mm <=1 CALCULATED (BEAKER) (test code = 1590) NEUTROPHILS FLUID (BEAKER) 8 % (test code = 1656) LYMPHS FLUID (BEAKER) 25 % (test code = 488) MONO/MACROPHAGE FLUID 67 % (BEAKER) (test code = 489) EOSINOPHILS FLUID (BEAKER) 0 % (test code = 491) BASO FLUID (BEAKER) (test 0 % code = 492) CONTAINER BODY FLUID Sterile Container (BEAKER) (test code = 2873) XR CHEST 1 VIEW PORTABLE / [id number] 12:21:34 [facility] : 1965 Sex: FINDICATION: s/p left thoracentesisCOMPARISON: 06/03/2023TECHNIQUE: Single frontal view of the chest.FINDINGS: Lines, tubes, and devices: None.Lungs and pleura: Scattered linear atelectasis is present. Nopneumothorax.Heart and mediastinum: Normal heart size. Unremarkable mediastinalcontours.Osseous structures: No acute abnormality.Other: None.IMPRESSION:No acute intrathoracic abnormality.Electronically Signed By: Brian Gresham06/06/2023 12:23 CDTWorkstation Name: [id number] FLUID CELL COUNT WITH [id number] 19:43:07 Test Item Value Reference Range Interpretation Comments APPEARANCE FLUID (BEAKER) (test Cloudy Clear A code = 510) COLOR FLUID (BEAKER) (test code Yellow Colorless, Straw A = 511) RBC FLUID (BEAKER) (test code = 58409 /cu mm <=1 H 513) TOTAL NUCLEATED CELL COUNT 561 /cu mm <=5 H (BEAKER) (test code = 1442) ADJUSTED WBC FLUID (BEAKER) 488 /cu mm <=5 H (test code = 1691) LINING CELLS/OTHERS, CALCULATED 73 /cu mm <=1 H (BEAKER) (test code = 1590) NEUTROPHILS FLUID (BEAKER) 40 % (test code = 1656) LYMPHS FLUID (BEAKER) (test 27 % code = 488) MONO/MACROPHAGE FLUID (BEAKER) 33 % (test code = 489) EOSINOPHILS FLUID (BEAKER) 0 % (test code = 491) BASO FLUID (BEAKER) (test code 0 % = 492) CONTAINER BODY FLUID (BEAKER) Sterile Vial (test code = 2873) BODY FLUID CELL COUNT WITH [id number] 19:39:04 Test Item Value Reference Range Interpretation Comments APPEARANCE FLUID (BEAKER) (test Cloudy Clear A code = 510) COLOR FLUID (BEAKER) (test code [place] Colorless, Straw A = 511) RBC FLUID (BEAKER) (test code = 18578 /cu mm <=1 H 513) TOTAL NUCLEATED CELL COUNT 503 /cu mm <=5 H (BEAKER) (test code = 1442) ADJUSTED WBC FLUID (BEAKER) 503 /cu mm <=5 H (test code = 1691) LINING CELLS/OTHERS, CALCULATED 0 /cu mm <=1 (BEAKER) (test code = 1590) NEUTROPHILS FLUID (BEAKER) 8 % (test code = 1656) LYMPHS FLUID (BEAKER) (test 66 % code = 488) MONO/MACROPHAGE FLUID (BEAKER) 24 % (test code = 489) EOSINOPHILS FLUID (BEAKER) 2 % (test code = 491) BASO FLUID (BEAKER) (test code 0 % = 492) CONTAINER BODY FLUID (BEAKER) Sterile Vial (test code = 2873) XR CHEST 1 VIEW PORTABLE / [id number] 18:37:20 [facility]ENTERName: [facility]ENCE PAREDES EVER : 1965 Sex: FExam: XR CHEST 1 VIEW PORTABLE / BEDSIDEDate: 06/03/2023 6:36 PMIndication:s/p left thoracentesisComparison: 9/19/2023FINDINGS:Lines/Tubes/Devices: NoneLungs/pleura:Borderline lung volumes. Central vascular and interstitialprominence. Trace right effusion. Interval decrease in size of lefteffusion with no pneumothorax.Heart/Mediastinum:Magnified by portable technique.Bones/Soft Tissues: No acute osseous abnormality.Upper abdomen: Unremarkable.IMPRESSION:Borderline lung volumes.Congestion/edema.Trace right effusion.Interval decrease in size of left effusion with no pneumothorax. Electronically Signed By: Mikael Darnell06/03/2023 18:39 CDTWorkstation Name: [id number] 16:52:49 [facility] : 1965 Sex: FUltrasound guided left thoracentesis.Clinical History: Left pleural effusion.Modality: Ultrasound.Sedation: None. Child Protection Specialist: Lupe Corralistant: None. Estimated Blood Loss: 1ccSpecimen: 2400 cc of cloudy serosanguineous fluid. Technique: Informed consent was obtained. The risks of pain, bl eeding,infection, lung collapse/pneumothorax, injury to adjacent structures,and adverse medication reactions were discussed with the patient. Thepatient's left hemithorax was scanned from the back, with the patient rowena sitting position. After the largest fluid pocket area was marked, theskin was prepped and draped in the usual sterile manner. The area wasanesthetized with 2% lidocaine, a 4 F valved one-step catheter wasadvanced into the pleural space under ultrasound guidance. Aftercompletion of drainage, the catheter was removed. There was no evidenceof immediate complication. Post procedure chestx-ray demonstrated nopneumothorax. IMPRESSION:Impression:Successful and uncomplicated ultrasound guided left thoracentesis.Electronically Signed By: Lee Diaz06/03/2023 16:54 CDTWorkstation Name: [id number] 16:52:47 [facility] : 1965 Sex: FUltrasound guided paracentesis.Clinical History: Ascites.Sedation: None. Child Protection Specialist: Lupe VERONICACAssistant: None. Estimated Blood Loss: < 1 cc.Specimen: 4000 cc of cloudy serosanguineous fluid, samples sent tolaboratory.Technique: Informed consent was obtained. The risks of pain, bleeding,infection, bowel perforation, injury to adjacent structures, and adversemedication reactions were discussed with the patient. After informedconsent was obtained, the patient's abdomen was scanned. The rightupper quadrant of the abdomen was selected for paracentesis. After thelargest fluid pocket area was marked, and the anterior abdominal wallwas evaluated with color Doppler to exclude presence of blood vesselstraversing the area, the skin was prepped and draped in the usualsterile manner. After local anesthesia was achieved with 2% lidocaine,a 5 Italian one- step catheter was advanced into the peritoneal cavityunder ultrasound guidance. After completion of drainage, the catheterwas removed. There was no evidence of complication.IMPRESSION:Impression:Successful ultrasound guided paracentesis.Electronically Signed By: Lee Diaz06/03/2023 16:54 CDTWorkstation Name: [id number] 15:19:25 Test Item Value Reference Range Interpretation Comments POC-CREATININ 1.3 mg/dL 0.6-1.3 : TESTED AT [facility] [address]BE[address]) [place], [address]: (test code = Filler Shredding Machine Loader/Techni shavon ID = [id number]) [id number] for Fall er, Christen POC-EGFR 47 Interpretation of eGFR (BEAKER) mL/min/1.73M2 Values Stage D escription (test code = Result G1 Lima l or high 1860) >=90 G2 Mildly decreased 60-89 G3a Mildl y to moderately 45-5 9 G3b Moderately to s michelle 30-44 G4 Severely dec reased 15-29 G5 Kidney Failu re <15Reported eGF R is based on the CKD-EPI 202 1 equation that does not u se a race coefficientEsti mated GFR is not as accurate as Creatinine Carol moiz in predicting glom erular filtration rate . Estimated GFR is not appl icable for dialysis patien BASIC METABOLIC [id number] 10:36:57 Test Item Value Reference Range Interpretation Comments SODIUM (BEAKER) 130 meq/L 136-145 L (test code = 381) POTASSIUM 4.2 meq/L 3.5-5.1 (BEAKER) (test code = 379) CHLORIDE (BEAKER) 106 meq/L 98-107 (test code = 382) CO2 (BEAKER) 21 meq/L 22-29 L (test code = 355) BLOOD UREA 27 mg/dL 7-21 H NITROGEN (BEAKER) (test code = 354) CREATININE 1.39 mg/dL 0.57-1.25 H (BEAKER) (test code = 358) GLUCOSE RANDOM 148 mg/dL 70-105 H (BEAKER) (test code = 652) CALCIUM (BEAKER) 7.8 mg/dL 8.4-10.2 L (test code = 697) EGFR (BEAKER) 44 Interpretati on of eGFR (test code = [...] not appl icable for dialysis patien ts Filler Shredding Machine Loader ID - [id number] 20:11:59Medical Cytology Report Case: [id number] Authorizing Provider: Zakia Taylor MD Collected: 05/30/2023 01:14 PM Ordering Location: [address] Received: 05/31/2023 08:46 AM Service Pathologist: Hany Ferrer MD Specimen: Pleural, Left LEFT PLEURAL FLUID (CYTOSPINS AND CELL BLOCK): - NEGATIVE FOR MALIGNANCY Reactive mesothelial cells admixed with many histiocytes and small lymphocytes with background blood Signing Pathologist Direct Phone Line: [phone] signed by Hany Ferrer MD on 06/01/2023 at 8:11 [id number], [phone] y.o. 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 Stable hospital course with work-up consistent with SBP, no evidence of SBE on repeat thoracentesis with work-up c/w transudative process likely hydrothorax.LEFT PLEURAL FLUIDA. Pleural, LeftReceived 1100 ml orange gelatinous fluid; prepared 4 cytospins and cell block(A2) (collodion bag)- the cell block was fixed in formalin at 16:23 on 3Performed.[facility], Department of Pathology, [address] [place] [address], [facility], [facility] of [facility]ology, [address] [place] [address], [facility]vh[facility], Department of Pat hology, [address] [place] [address], HIGZ FLUID CULTURE + GRAM [id number] 14:54:01 Test Item Value Reference Range Interpretation Comments CULTURE (BEAKER) (test code = 1095) No growth BODY FLUID CULTURE + GRAM [id number] 14:53:49 Test Item Value Reference Range Interpretation Comments CULTURE (BEAKER) No growth (test code = 1095) GRAM STAIN RESULT 2+ WBCs Initial gr am stain (BEAKER) (test performed hui or to code = 1123) incubation. 05/30/2023 7:45 PMEugene Fermin GRAM STAIN RESULT No organisms seen Initi al gram stain (BEAKER) (test performed hui or to code = 756632) incubation. 05/30/2023 7:45 PMEugene Fermin URINALYSIS WITHOUT [id number] 14:07:53 Test Item Value Reference Range Interpretation Comments COLOR (BEAKER) (test code = 470) Yellow CLARITY (BEAKER) (test code = 469) Cloudy SPECIFIC GRAVITY UA (BEAKER) (test 1.019 1.001-1.035 code = 468) PH UA (BEAKER) [...] Negative Negative 465) LEUKOCYTE ESTERASE UA (BEAKER) (test Negative Negative code = 466) UROBILINOGEN UA (BEAKER) (test code 0.2 0.2-1.0 = 463) SOURCE(BEAKER) (test code = 2795) Filler Shredding Machine Loader ID - [auto]Filler Shredding Machine Loader ID - techSODIUM, RANDOM [id number] 14:00:32 Test Item Value Reference Range Interpretation Comments SODIUM URINE (BEAKER) (test code = < meq/L 243) Reference Range: No NormalsOperator ID - ADMINCHLORIDE, RANDOM [id number] 13:50:48 Test Item Value Reference Range Interpretation Comments CHLORIDE URINE (BEAKER) (test code = < meq/L 20-330 L 682) Reference Range: No NormalsOperator ID - ADMINPOTASSIUM, RANDOM [id number] 13:50:48 Test Item Value Reference Range Interpretation Comments POTASSIUM URINE (BEAKER) (test 40.7 meq/L code = 195) Reference Range: No NormalsOperator ID - ADMINXR CHEST 1 VIEW PORTABLE / BEDSIDE 2023-06-01 13:33:28 [facility] : 1965 Sex: FEXAMINATION: XR CHEST 1 VIEW PORTABLE / BEDSIDE INDICATION: shortness of breath, please evaluate for pneumothorax givenrecent procedureCOMPARISON: CXR 05/30/2023 FINDINGS:LINES/TUBES: None LUNGS: The lungs are moderately inflated. Left basilarpleural-parenchymal opacities.PLEURA: Small left pleural effusion. No pneumothorax.MEDIASTINUM: The cardiomediastinal silhouette is stable in size andshape.BONES/SOFTTISSUES: No acute osseous injury.ABDOMEN: No free air under the diaphragm.IMPRESSION:Worsening smallleft pleural effusion with associated left basilarconsolidation versus atelectasis.No pneumothorax.Electronically Signed By: Ken Sauer06/01/2023 13:35 CDTWorkstation Name: [id number] 2023-06-01 08:58:03 Test Item Value Reference Range Interpretation Comments CORTISOL, TOTAL (BEAKER) (test code 4.3 ug/dL 3.7-19.4 = 2755) Filler Shredding Machine Loader ID - EMCOMPREHENSIVE METABOLIC [id number] 06:27:56 Test Item Value Reference Range Interpretation Comments TOTAL PROTEIN 5.7 gm/dL 6.0-8.3 L (BEAKER) (test code = 770) ALBUMIN (BEAKER) 3.0 g/dL 3.5-5.0 L (test code = 1145) ALKALINE 78 U/L 40-150 PHOSPHATASE (BEAKER) (test code = 346) BILIRUBIN TOTAL 1.5 mg/dL 0.2-1.2 H (BEAKER) (test code = 377) SODIUM (BEAKER) 132 meq/L 136-145 L (test code = 381) POTASSIUM (BEAKER) 3.8 meq/L 3.5-5.1 (test code = 379) CHLORIDE (BEAKER) 105 meq/L 98-107 (test code = 382) CO2 (BEAKER) (test 19 meq/L 22-29 L code = 355) BLOOD UREA 27 mg/dL 7-21 H NITROGEN (BEAKER) (test code = 354) CREATININE 1.46 mg/dL 0.57-1.25 H (BEAKER) (test code = 358) GLUCOSE RANDOM 92 mg/dL 70-105 (BEAKER) (test code = 652) CALCIUM (BEAKER) 8.1 mg/dL 8.4-10.2 L (test code = 697) AST (SGOT) 35 U/L 5-34 H (BEAKER) (test code = 353) ALT (SGPT) 20 U/L 6-55 (BEAKER) (test code = 347) EGFR (BEAKER) 41 Interpretatio n of eGFR (test code = [...] not appl icable for dialysis patien ts Filler Shredding Machine Loader ID - [id number] 06:23:51 Test Item Value Reference Range Interpretation Comments MAGNESIUM (BEAKER) (test code = 2.0 mg/dL 1.6-2.6 627) Filler Shredding Machine Loader ID - [id number] 06:23:51 Test Item Value Reference Range Interpretation Comments PHOSPHORUS (BEAKER) (test code = 4.2 mg/dL 2.3-4.7 604) Filler Shredding Machine Loader ID - EMPROTHROMBIN TIME/[id number] 06:03:59 Test Item Value Reference Range Interpretation Comments PROTIME (BEAKER) (test code = 19.7 seconds 11.9-14.2 H 759) INR (BEAKER) (test code = 370) 1.79 <=5.90 RECOMMENDED COUMADIN/WARFARIN INR THERAPY RANGESSTANDARD DOSE: 2.0 - 3.0 Includes: PROPHYLAXIS for venous thrombosis, systemic embolization; TREATMENT for venous thrombosis and/or pulmonary embolus.HIGH RISK: Target INR is 2.5-3.5 for patients with mechanical heart valves.CBC (HEMOGRAM ONLY)2023-06-01 05:40:52 Test Item Value Reference Range Interpretation Comments WHITE BLOOD CELL COUNT (BEAKER) 6.3 K/ L 3.5-10.5 (test code = 775) RED BLOOD CELL COUNT (BEAKER) 2.88 M/ L 3.93-5.22 L (test code = 761) HEMOGLOBIN (BEAKER) (test code = 9.7 GM/DL 11.2-15.7 L 410) HEMATOCRIT (BEAKER) (test code = 28.5 % 34.1-44.9 L 411) MEAN CORPUSCULAR VOLUME (BEAKER) 99 fL 79-95 H (test code = 753) MEAN CORPUSCULAR HEMOGLOBIN 33.7 pg 25.6-32.2 H (BEAKER) (test code = 751) MEAN CORPUSCULAR HEMOGLOBIN CONC 34.0 GM/DL 32.2-35.5 (BEAKER) (test code = 752) RED CELL DISTRIBUTION WIDTH 14.7 % 11.7-14.4 H (BEAKER) (test code = 412) PLATELET COUNT (BEAKER) (test code 75 K/CU MM 150-450 L = 756) MEAN PLATELET VOLUME (BEAKER) 11.1 fL 9.4-12.3 (test code = 754) NUCLEATED RED BLOOD CELLS (BEAKER) 0 /100 WBC 0-0 (test code = 413) [id number] 16:04:53 Test Item Value Reference Range Interpretation Comments PHOSPHORUS (BEAKER) (test code = 3.5 mg/dL 2.3-4.7 604) Filler Shredding Machine Loader ID - EMPTH, [id number] 09:20:01 Test Item Value Reference Range Interpretation Comments PARATHYROID HORMONE INTACT 32.8 pg/mL 8.5-72.5 (BEAKER) (test code = 577) Filler Shredding Machine Loader ID - EMCALCIUM, [id number] 08:55:20 Test Item Value Reference Range Interpretation Comments CALCIUM IONIZED (BEAKER) (test 1.11 mmol/L 1.12-1.27 L code = 698) PH, BLOOD (BEAKER) (test code = 7.40 1810) CBC (HEMOGRAM ONLY)2023-05-31 06:31:40 Test Item Value Reference Range Interpretation Comments WHITE BLOOD CELL COUNT (BEAKER) 4.6 K/ L 3.5-10.5 (test code = 775) RED BLOOD CELL COUNT (BEAKER) 2.57 M/ L 3.93-5.22 L (test code = 761) HEMOGLOBIN (BEAKER) (test code = 8.7 GM/DL 11.2-15.7 L 410) HEMATOCRIT (BEAKER) (test code = 25.4 % 34.1-44.9 L 411) MEAN CORPUSCULAR VOLUME (BEAKER) 99 fL 79-95 H (test code = 753) MEAN CORPUSCULAR HEMOGLOBIN 33.9 pg 25.6-32.2 H (BEAKER) (test code = 751) MEAN CORPUSCULAR HEMOGLOBIN CONC 34.3 GM/DL 32.2-35.5 (BEAKER) (test code = 752) RED CELL DISTRIBUTION WIDTH 14.4 % 11.7-14.4 (BEAKER) (test code = 412) PLATELET COUNT (BEAKER) (test code 61 K/CU MM 150-450 L = 756) MEAN PLATELET VOLUME (BEAKER) 10.7 fL 9.4-12.3 (test code = 754) NUCLEATED RED BLOOD CELLS (BEAKER) 0 /100 WBC 0-0 (test code = 413) BASIC METABOLIC [id number] 06:24:57 Test Item Value Reference Range Interpretation Comments SODIUM (BEAKER) 133 meq/L 136-145 L (test code = 381) POTASSIUM 3.3 meq/L 3.5-5.1 L Specimen slight ly (BEAKER) (test hemolyzed code = 379) CHLORIDE (BEAKER) 111 meq/L 98-107 H (test code = 382) CO2 (BEAKER) 15 meq/L 22-29 L (test code = 355) BLOOD UREA 25 mg/dL 7-21 H NITROGEN (BEAKER) (test code = 354) CREATININE 1.21 mg/dL 0.57-1.25 Specimen slight ly (BEAKER) (test hemolyzed code = 358) GLUCOSE RANDOM 96 mg/dL 70-105 (BEAKER) (test code = 652) CALCIUM (BEAKER) 6.7 mg/dL 8.4-10.2 L (test code = 697) EGFR (BEAKER) 52 Interpretati on of eGFR (test code = [...] not appl icable for dialysis patien ts Filler Shredding Machine Loader ID - [id number] 06:17:32 Test Item Value Reference Range Interpretation Comments MAGNESIUM (BEAKER) 1.8 mg/dL 1.6-2.6 Specimen slightly (test code = 627) hemolyzed Filler Shredding Machine Loader ID - MMBASIC METABOLIC [id number] 17:03:14 Test Item Value Reference Range Interpretation Comments SODIUM (BEAKER) 130 meq/L 136-145 L (test code = 381) POTASSIUM 4.8 meq/L 3.5-5.1 (BEAKER) (test code = 379) CHLORIDE (BEAKER) 106 meq/L 98-107 (test code = 382) CO2 (BEAKER) 19 meq/L 22-29 L (test code = 355) BLOOD UREA 28 mg/dL 7-21 H NITROGEN (BEAKER) (test code = 354) CREATININE 1.36 mg/dL 0.57-1.25 H (BEAKER) (test code = 358) GLUCOSE RANDOM 132 mg/dL 70-105 H (BEAKER) (test code = [...] not appl icable for dialysis patien ts Filler Shredding Machine Loader ID - MMBLOOD GAS, [id number] 16:57:12 Test Item Value Reference Range Interpretation Comments PH VENOUS (BEAKER) (test code = 7.38 7.32-7.42 701) PCO2 VENOUS (BEAKER) (test code = 33 mm Hg 41-51 L 755) PO2 VENOUS (BEAKER) (test code = 43 mm Hg 25-40 H 702) O2 SATURATION VENOUS (BEAKER) 78.4 % 40.0-70.0 H (test code = 703) HCO3 VENOUS (BEAKER) (test code = 19 mmol/L 21-29 L 705) BASE EXCESS VENOUS (BEAKER) (test -5.3 mmol/L -2.0-3.0 L code = 704) PATIENT TEMPERATURE (BEAKER) 37.0 (test code = 1818) FIO2 (BEAKER) (test code = 1819) 21.0 LACTIC ACID, [id number] 16:56:33 Test Item Value Reference Range Interpretation Comments LACTATE BLOOD VENOUS (2) (BEAKER) 1.74 mmol/L 0.50-2.00 (test code = 2872) Filler Shredding Machine Loader ID - MMUS [id number] 16:30:45 [facility] : 1965 Sex: FUltrasound guided left thoracentesis.Clinical History: Left pleural effusion.Modality: Ultrasound.Sedation: None. Child Protection Specialist: Lupe Youngt: None. Estimated Blood Loss: 1ccSpecimen: 2100 cc of cloudy lupe fluid. Technique: Informed consent was obtained. [...] area wasanesthetized with 2% lidocaine, a 4 F valved one-step catheter wasadvanced into the pleural space under ultrasound guidance. Aftercompletion of drainage, thecatheter was removed. There was no evidenceof immediate complication. Post procedure chest x-ray demonstrated nopneumothorax. IMPRESSION:Impression:Successful and uncomplicated ultrasound guided left thoracentesis.Electronically Signed By: Ken Sauer05/30/2023 16:32 CDTWorkstation Name: [id number] 16:30:43 [facility] EV[facility] : 1965 Sex: FUltrasound guided paracentesis.Clinical History: Ascites.Sedation: None. Child Protection Specialist: Lupe Youngt: None. Estimated Blood Loss: < 1 cc.Specimen: 2800 cc of cloudy lupe fluid, samples sent to laboratory.Technique: Informed consent was obtained. The risks of pain, bleeding,infection, bowel perforation, injury to adjacent structures, and adversemedication reactions were discussed with the patient. After informedconsent was obtained, the patient's abdomen was scanned. The rightupperquadrant of the abdomen was selected for paracentesis. After thelargest fluid pocket area was marked, and the anterior abdominal wallwas evaluated with color Doppler to exclude presence of blood vesselstraversing the area, the skin was prepped and draped in the usualsterile manner. After local anesthesia was achieved with 2% lidocaine,a 5 Italian one-step catheter was advanced into the peritoneal cavityunder ultrasound guidance. After completion of drainage, the catheterwas removed. There was no evidence of complication.IMPRESSION:Impression:Successful ultrasound guided paracentesis.Electronically Signed By: Ken Sauer05/30/2023 16:32 CDTWorkstation Name: [id number] FLUID CELL COUNT WITH [id number] 16:28:58 Test Item Value Reference Range Interpretation Comments APPEARANCE FLUID Cloudy Clear A (BEAKER) (test code = 510) COLOR FLUID (BEAKER) Brown Colorless, Straw A (test code = 511) RBC FLUID (BEAKER) 74027 /cu mm See_Comment H [Automat ed message] (test code = 513) The system which generated this result transmit joanna reference range : <=1. The refere nce range was not u sed to interpret th is result as normal/abnormal . TOTAL NUCLEATED CELL 831 /cu mm See_Comment H [Autom ated message] COUNT (BEAKER) (test The sys tem which code = 1442) generated this result transmit joanna reference range : <=5. The refere nce range was not u sed to interpret th is result as normal/abnormal . ADJUSTED WBC FLUID 831 /cu mm See_Comment H [Automat ed message] (BEAKER) (test code The syst em which = 1691) generated this result transmit joanna reference range : <=5. The refere nce range was not u sed to interpret th is result as normal/abnormal . LINING CELLS/OTHERS, 0 /cu mm See_Comment [Autom ated message] CALCULATED (BEAKER) The syst em which (test code = 1590) generated this result transmit joanna reference range : <=1. The refere nce range was not u sed to interpret th is result as normal/abnormal . NEUTROPHILS FLUID 37 % (BEAKER) (test code = 1656) LYMPHS FLUID 32 % (BEAKER) (test code = 488) MONO/MACROPHAGE 31 % FLUID (BEAKER) (test code = 489) EOSINOPHILS FLUID 0 % (BEAKER) (test code = 491) BASO FLUID (BEAKER) 0 % (test code = 492) CONTAINER BODY FLUID EDTA Tube (BEAKER) (test code = 2873) BASIC METABOLIC [id number] 15:47:55 Test Item Value Reference Range Interpretation Comments SODIUM (BEAKER) 126 meq/L 136-145 L (test code = 381) POTASSIUM 6.2 meq/L 3.5-5.1 HH Specimen modera tely (BEAKER) (test hemolyzed code = 379) CHLORIDE (BEAKER) 109 meq/L 98-107 H (test code = 382) CO2 (BEAKER) 13 meq/L 22-29 L (test code = 355) BLOOD UREA 27 mg/dL 7-21 H NITROGEN (BEAKER) (test code = 354) CREATININE 1.29 mg/dL 0.57-1.25 H Specimen modera tely (BEAKER) (test hemolyzed code = 358) GLUCOSE RANDOM 124 mg/dL 70-105 H (BEAKER) (test code = 652) CALCIUM (BEAKER) 7.9 mg/dL 8.4-10.2 L (test code = 697) EGFR (BEAKER) 48 Interpretatio n of eGFR [...] not appl icable for dialysis patien ts Filler Shredding Machine Loader ID - MMXR CHEST 1 VIEW PORTABLE / [id number] 14:38:54 [facility] : 1965 Sex: FChest, 1 view.History: Status post thoracentesis.Comparison: 05/30/2023 at 0724.IMPRESSION:Impression: There has been evacuation of left-sided pleural fluid. There is noevidence for pneumothorax status post thoracentesis.The right lung remains clear. There is no evidence for new large focalconsolidation. The cardiomediastinal silhouette is stable in appearance.No acute osseous abnormality is identified.Electronically Signed By: Lj Stevenson MD05/30/2023 14:40 CDTWorkstation Name: [id number] CHEST 1 VIEW PORTABLE / BEDSIDE 2023-05-30 13:41:45 [facility] : 1965 Sex: FCLINICAL HISTORY: f/u pleural effusion TECHNIQUE: 1 view of the chest.COMPARISON: 05/27/2023IMPRESSION:There is an increased small left pleural effusion with adjacent airspaceopacity. The right lung remains well-aerated. No cardiomegaly.Electronically Signed By: Antwansyeda Flor05/30/2023 13:43 CDTWorkstation Name: [id number] 09:50:06Medical Cytology Report Case: [id number] Authorizing Provider: Rigo Sanz MD Collected: 05/27/2023 09:09 AM Ordering Location: [address] Received: 05/27/2023 12:34 PM Service Pathologist: Salvador Davenport MD Specimen: Peritoneal Fluid PERITONEAL FLUID (CYTOSPINS AND CELL BLOCK): - NEGATIVE FOR MALIGNANCY Reactive mesothelial cells admixed with mixed inflammatory cells Signing Pathologist Direct Phone Line: [phone] signed by Salvador Davenport MD on 05/30/2023 at 9:50 AMPlease also see cytopathology case: [id number], [id number] y.o. F with decompensated cirrhosis secondaryto Cifuentes, with recurrent ascites and hydrothorax requiring scheduled Thora and paracenteses, who was sent from clinic for admission due to concern for pleural fluid infection given elevated TNC on pleural fluid analysis.PERITONEAL FLUIDA. Peritoneal FluidReceived 1100 mls cloudy pink fluid; prepared 4 cytospins and cell block(A2)(collodion bag) - the cell block was fixed in formalin at 14:06 on 05/27/2023 Performed.[facility], Department of Pathology, [address] [place] [address], [facility], [facility] of [facility], [address] [place] [address], [facility]dzfinSharp [facility], Department of [facility], [address] [place] [address], IXNGRXZZ 2023-05-30 09:45:15Medical Cytology Report Case: [id number] Authorizing Provider: Rigo Sanz MD Collected: 05/27/2023 10:05 AM Ordering Location: [address] Received: 05/27/2023 12:58 PM Service Pathologist: Salvador Daevnport MD Specimen: Pleural, Left LEFT PLEURAL FLUID (CYTOSPINS AND CELL BLOCK): - NEGATIVE FOR MALIGNANCY Reactive mesothelial cells admixed with many histiocytes and small lymphocytes Signing Pathologist Direct Phone Line: [phone] signed by Salvador Davenport MD on 05/30/2023 at 9:45 AMPlease also see cytopathology case: [id number], [id number] y.o. 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 Pleural, LeftReceived 1100 mls pink cloudy fluid;prepared 4 cytospins and cell block(A2)(collodion bag) - the cell block was fixed in formalin at 14:13 on 05/27/2023 Performed.[facility], Department of Pathology, [address] [place] [address], [facility]ubc[facility], Department of Pathology, [address] [place] [address], PneqbwSharp [facility], Department of Pathology, [address] [place] [id number], [id number] DEHYDROGENASE (LDH)2023-05-30 08:06:15 Test Item Value Reference Range Interpretation Comments LACTATE DEHYDROGENASE (BEAKER) (test 257 U/L 125-220 H code = 635) Filler Shredding Machine Loader ID - [id number] 07:17:06 Test Item Value Reference Range Interpretation Comments FERRITIN (BEAKER) (test code = 263.31 ng/mL 5.00-275.00 361) Filler Shredding Machine Loader ID - MARCOVITAMIN [id number] 07:00:10 Test Item Value Reference Range Interpretation Comments VITAMIN B12 (BEAKER) (test code = 1118 pg/mL 213-816 H 774) Filler Shredding Machine Loader ID - MARCOBASIC METABOLIC [id number] 06:37:01 Test Item Value Reference Range Interpretation Comments SODIUM (BEAKER) 130 meq/L 136-145 L (test code = 381) POTASSIUM 5.3 meq/L 3.5-5.1 H (BEAKER) (test code = 379) CHLORIDE (BEAKER) 108 meq/L 98-107 H (test code = 382) CO2 (BEAKER) 16 meq/L 22-29 L (test code = 355) BLOOD UREA 27 mg/dL 7-21 H NITROGEN (BEAKER) (test code = 354) CREATININE 1.34 mg/dL 0.57-1.25 H (BEAKER) (test code = 358) GLUCOSE RANDOM 75 mg/dL 70-105 (BEAKER) (test code = 652) CALCIUM (BEAKER) 8.2 mg/dL 8.4-10.2 L (test code = 697) EGFR (BEAKER) 46 Interpretatio n of eGFR [...] not appl icable for dialysis patien ts Filler Shredding Machine Loader ID - [id number] 06:37:01 Test Item Value Reference Range Interpretation Comments MAGNESIUM (BEAKER) (test code = 2.1 mg/dL 1.6-2.6 627) Filler Shredding Machine Loader ID - HANY, TIBC, % SAT. (WITHOUT FERRITIN)2023-05-30 06:30:22 Test Item Value Reference Range Interpretation Comments IRON (BEAKER) (test code = 547) 59.0 ug/dL 40.0-160.0 TOTAL IRON BINDING CAPACITY 113 ug/dL 250-450 L (BEAKER) (test code = 769) IRON % SATURATION (2) (BEAKER) 52 % 20-55 (test code = 2590) Filler Shredding Machine Loader ID - MIGUELOCBC (HEMOGRAM ONLY)2023-05-30 06:25:23 Test Item Value Reference Range Interpretation Comments WHITE BLOOD CELL COUNT (BEAKER) 6.5 K/ L 3.5-10.5 (test code = 775) RED BLOOD CELL COUNT (BEAKER) 3.13 M/ L 3.93-5.22 L (test code = [...] = 412) PLATELET COUNT (BEAKER) (test code 81 K/CU MM 150-450 L = 756) MEAN PLATELET VOLUME (BEAKER) 11.4 fL 9.4-12.3 (test code = 754) NUCLEATED RED BLOOD CELLS (BEAKER) 0 /100 WBC 0-0 (test code = 413) BODY FLUID CULTURE + GRAM [id number] 17:02:00 Test Item Value Reference Range Interpretation Comments CULTURE (BEAKER) (test code = 1095) No growth BODY FLUID CULTURE + GRAM [id number] 17:01:59 Test Item Value Reference Range Interpretation Comments CULTURE (BEAKER) (test code = 1095) No growth BASIC METABOLIC [id number] 14:41:59 Test Item Value Reference Range Interpretation Comments SODIUM (BEAKER) 130 meq/L 136-145 L (test code = 381) POTASSIUM 5.1 meq/L 3.5-5.1 (BEAKER) (test code = 379) CHLORIDE (BEAKER) 109 meq/L 98-107 H (test code = 382) CO2 (BEAKER) 19 meq/L 22-29 L (test code = 355) BLOOD UREA 26 mg/dL 7-21 H NITROGEN (BEAKER) (test code = 354) CREATININE 1.24 mg/dL 0.57-1.25 (BEAKER) (test code = 358) GLUCOSE RANDOM 112 mg/dL 70-105 H (BEAKER) (test code = 652) CALCIUM (BEAKER) 7.9 mg/dL 8.4-10.2 L (test code = 697) EGFR (BEAKER) 50 Interpretatio n of eGFR (test code = [...] not appl icable for dialysis patien ts Filler Shredding Machine Loader ID - TOSHA [id number] 02:04:38 Test Item Value Reference Range Interpretation Comments PHOSPHORUS (BEAKER) 3.6 mg/dL 2.3-4.7 Specimen slightly (test code = 604) hemolyzed Filler Shredding Machine Loader ID - ADMINCOMPREHENSIVE METABOLIC [id number] 02:04:38 Test Item Value Reference Range Interpretation Comments TOTAL PROTEIN 6.6 gm/dL 6.0-8.3 Specimen sligh tly (BEAKER) (test hemolyzed code = 770) ALBUMIN (BEAKER) 3.0 g/dL 3.5-5.0 L Specimen sl ightly (test code = 1145) hemolyzed ALKALINE 82 U/L 40-150 PHOSPHATASE (BEAKER) (test code = 346) BILIRUBIN TOTAL 1.5 mg/dL 0.2-1.2 H Specimen sli ghtly (BEAKER) (test hemolyzed code = 377) SODIUM (BEAKER) 129 meq/L 136-145 L (test code = 381) POTASSIUM (BEAKER) 4.9 meq/L 3.5-5.1 Specimen slightly (test code = 379) hemolyzed CHLORIDE (BEAKER) 107 meq/L 98-107 (test code = 382) CO2 (BEAKER) (test 14 meq/L 22-29 L code = 355) BLOOD UREA 26 mg/dL 7-21 H NITROGEN (BEAKER) (test code = 354) CREATININE 1.41 mg/dL 0.57-1.25 H Specimen slight ly (BEAKER) (test hemolyzed code = 358) GLUCOSE RANDOM 156 mg/dL 70-105 H (BEAKER) (test code = 652) CALCIUM (BEAKER) 8.2 mg/dL 8.4-10.2 L (test code = 697) AST (SGOT) 46 U/L 5-34 H Specimen slight ly (BEAKER) (test hemolyzed code = 353) ALT (SGPT) 24 U/L 6-55 Specimen slight ly (BEAKER) (test hemolyzed code = 347) EGFR (BEAKER) 43 Interpretatio n of eGFR (test code = [...] not appl icable for dialysis patien ts Filler Shredding Machine Loader ID - [id number] 02:04:37 Test Item Value Reference Range Interpretation Comments MAGNESIUM (BEAKER) 2.1 mg/dL 1.6-2.6 Specimen slightly (test code = 627) hemolyzed Filler Shredding Machine Loader ID - ADMINPROTHROMBIN TIME/[id number] 02:00:57 Test Item Value Reference Range Interpretation Comments PROTIME (BEAKER) 19.0 seconds 11.9-14.2 H (test code = 759) INR (BEAKER) (test 1.71 See_Comment [Automat ed message] code = 370) The system [employer] generated this result transmitted ref erence range: <=5.90. The reference range was not used to int erpret this result as normal/abnormal . RECOMMENDED COUMADIN/WARFARIN INR THERAPY RANGESSTANDARD DOSE: 2.0 - 3.0 Includes: PROPHYLAXIS for venous thrombosis, systemic embolization; TREATMENT for venous thrombosis and/or pulmonary embolus.HIGH RISK: Target INR is 2.5-3.5 for patients with mechanical heart valves.CBC (HEMOGRAM ONLY)2023-05-29 01:42:32 Test Item Value Reference Range Interpretation Comments WHITE BLOOD CELL COUNT (BEAKER) 7.5 K/ L 3.5-10.5 (test code = 775) RED BLOOD CELL COUNT (BEAKER) 3.28 M/ L 3.93-5.22 L (test code = 761) HEMOGLOBIN (BEAKER) (test code = 11.1 GM/DL 11.2-15.7 L 410) HEMATOCRIT (BEAKER) (test code = 33.1 % 34.1-44.9 L 411) MEAN CORPUSCULAR VOLUME (BEAKER) 101 fL 79-95 H (test code = 753) MEAN CORPUSCULAR HEMOGLOBIN 33.8 pg 25.6-32.2 H (BEAKER) (test code = 751) MEAN CORPUSCULAR HEMOGLOBIN CONC 33.5 GM/DL 32.2-35.5 (BEAKER) (test code = 752) RED CELL DISTRIBUTION WIDTH 15.1 % 11.7-14.4 H (BEAKER) (test code = 412) PLATELET COUNT (BEAKER) (test 106 K/CU MM 150-450 L code = 756) MEAN PLATELET VOLUME (BEAKER) 11.2 fL 9.4-12.3 (test code = 754) NUCLEATED RED BLOOD CELLS 0 /100 WBC 0-0 (BEAKER) (test code = 413) LACTATE DEHYDROGENASE (LDH)2023-05-28 15:11:40 Test Item Value Reference Range Interpretation Comments LACTATE DEHYDROGENASE (BEAKER) (test 185 U/L 125-220 code = 635) Filler Shredding Machine Loader ID - ADMINOSMOLALITY, [id number] 13:50:12 Test Item Value Reference Range Interpretation Comments OSMOLALITY, SERUM (BEAKER) (test 286 mOsm/kg 275-295 code = 615) BASIC METABOLIC [id number] 12:16:44 Test Item Value Reference Range Interpretation Comments SODIUM (BEAKER) 130 meq/L 136-145 L (test code = 381) POTASSIUM 4.7 meq/L 3.5-5.1 (BEAKER) (test code = 379) CHLORIDE (BEAKER) 107 meq/L 98-107 (test code = 382) CO2 (BEAKER) 20 meq/L 22-29 L (test code = 355) BLOOD UREA 26 mg/dL 7-21 H NITROGEN (BEAKER) (test code = 354) CREATININE 1.11 mg/dL 0.57-1.25 (BEAKER) (test code = 358) GLUCOSE RANDOM 136 mg/dL 70-105 H (BEAKER) (test code = 652) CALCIUM (BEAKER) 8.1 mg/dL 8.4-10.2 L (test code = 697) EGFR (BEAKER) 57 Interpretatio n of eGFR (test code = [...] not appl icable for dialysis patien ts Filler Shredding Machine Loader ID - ADMINSODIUM, RANDOM [id number] 12:03:54 Test Item Value Reference Range Interpretation Comments SODIUM URINE (BEAKER) (test code = < meq/L 243) Reference Range: No NormalsOperator ID - ADMINCHLORIDE, RANDOM [id number] 11:46:25 Test Item Value Reference Range Interpretation Comments CHLORIDE URINE (BEAKER) (test code = < meq/L 20-330 L 682) Reference Range: No NormalsOperator ID - ADMINOSMOLALITY, [id number] 10:35:30 Test Item Value Reference Range Interpretation Comments OSMOLALITY URINE 571 mOsm/kg See_Comment [Automated message] (BEAKER) (test code = The sy stem which 614) generated this result transmitted ref erence range: 50-1,200 mOsm/kg. The reference range was not used to int erpret this result as normal/abnormal . COMPREHENSIVE METABOLIC [id number] 02:35:42 Test Item Value Reference Range Interpretation Comments TOTAL PROTEIN 6.1 gm/dL 6.0-8.3 Specimen sligh tly (BEAKER) (test hemolyzed code = 770) ALBUMIN (BEAKER) 3.0 g/dL 3.5-5.0 L Specimen sl ightly (test code = 1145) hemolyzed ALKALINE 92 U/L 40-150 PHOSPHATASE (BEAKER) (test code = 346) BILIRUBIN TOTAL 1.2 mg/dL 0.2-1.2 Specimen sli ghtly (BEAKER) (test hemolyzed code = 377) SODIUM (BEAKER) 128 meq/L 136-145 L (test code = 381) POTASSIUM (BEAKER) 4.9 meq/L 3.5-5.1 Specimen slightly (test code = 379) hemolyzed CHLORIDE (BEAKER) 105 meq/L 98-107 (test code = 382) CO2 (BEAKER) (test 15 meq/L 22-29 L code = 355) BLOOD UREA 27 mg/dL 7-21 H NITROGEN (BEAKER) (test code = 354) CREATININE 1.24 mg/dL 0.57-1.25 Specimen slight ly (BEAKER) (test hemolyzed code = 358) GLUCOSE RANDOM 119 mg/dL 70-105 H (BEAKER) (test code = 652) CALCIUM (BEAKER) 8.0 mg/dL 8.4-10.2 L (test code = 697) AST (SGOT) 39 U/L 5-34 H Specimen slight ly (BEAKER) (test hemolyzed code = 353) ALT (SGPT) 22 U/L 6-55 Specimen slight ly (BEAKER) (test hemolyzed code = 347) EGFR (BEAKER) 50 Interpretatio n of eGFR (test code = [...] not appl icable for dialysis patien ts Filler Shredding Machine Loader ID - [id number] 02:35:41 Test Item Value Reference Range Interpretation Comments MAGNESIUM (BEAKER) 2.1 mg/dL 1.6-2.6 Specimen slightly (test code = 627) hemolyzed Filler Shredding Machine Loader ID - [id number] 02:35:41 Test Item Value Reference Range Interpretation Comments PHOSPHORUS (BEAKER) 3.5 mg/dL 2.3-4.7 Specimen slightly (test code = 604) hemolyzed Filler Shredding Machine Loader ID - ADMINPROTHROMBIN TIME/[id number] 02:22:16 Test Item Value Reference Range Interpretation Comments PROTIME (BEAKER) 20.6 seconds 11.9-14.2 H (test code = 759) INR (BEAKER) (test 1.89 See_Comment [Automat ed message] code = 370) The system [employer] generated this result transmitted ref erence range: <=5.90. The reference range was not used to int erpret this result as normal/abnormal . RECOMMENDED COUMADIN/WARFARIN INR THERAPY RANGESSTANDARD DOSE: 2.0 - 3.0 Includes: PROPHYLAXIS for venous thrombosis, systemic embolization; TREATMENT for venous thrombosis and/or pulmonary embolus.HIGH RISK: Target INR is 2.5-3.5 for patients with mechanical heart valves.CBC (HEMOGRAM ONLY)2023-05-28 02:15:20 Test Item Value Reference Range Interpretation Comments WHITE BLOOD CELL COUNT (BEAKER) 7.5 K/ L 3.5-10.5 (test code = 775) RED BLOOD CELL COUNT (BEAKER) 2.96 M/ L 3.93-5.22 L (test code = 761) HEMOGLOBIN (BEAKER) (test code = 10.0 GM/DL 11.2-15.7 L 410) HEMATOCRIT (BEAKER) (test code = 30.3 % 34.1-44.9 L 411) MEAN CORPUSCULAR VOLUME [...] 756) MEAN PLATELET VOLUME (BEAKER) 11.5 fL 9.4-12.3 (test code = 754) NUCLEATED RED BLOOD CELLS (BEAKER) 0 /100 WBC 0-0 (test code = 413) US [id number] 13:56:27 [facility] : 1965 Sex: FUltrasound guided paracentesis.Clinical History: Ascites.Sedation: None. Child Protection Specialist: Danuta Dimas-CAssistant: None. Estimated Blood Loss: < 1 cc.Specimen: 5100 cc of cloudy lupe fluid, samples sent to laboratory.Technique: Informed consent was obtained. The risks of pain, bleeding,infection,bowel perforation, injury to adjacent structures, and adversemedication reactions were discussed with the patient. After informedconsent was obtained, the patient's abdomen was scanned. The rightupper quadrant of the abdomen was selected for paracentesis. After thelargest fluid pocket area was marked,and the anterior abdominal wallwas evaluated with color Doppler to exclude presence of blood vesselstraversing the area, the skin was prepped and draped in the usualsterile manner. After local anesthesia was achieved with 2% lidocaine,a 5 Italian one-step catheter was advanced into the peritoneal cavityunder ultrasound guidance. After completion of drainage, the catheterwas removed. There was no evidence of complication.IMPRESSION:Impression:Successful ultrasound guided paracentesis.Electronically Signed By: Galen Lovett05/27/2023 13:58 CDTWorkstation Name: [id number] 13:56:26 [facility] : 1965 Sex: FUltrasound guided left thoracentesis.Clinical History: Left pleural effusion.Modality: Ultrasound.Sedation: None. Child Protection Specialist: Danuta Corralistant: None. Estimated Blood Loss: 1ccSpecimen: 2000 cc of cloudy lupe fluid. Technique: Informed consent was obtained. [...] evidence of immediatecomplication. Post procedure chest x-ray is pending. IMPRESSION:Impression:Successful and uncomplicated ultrasound guided left thoracentesis.Electronically Signed By: Galen Lovett05/27/2023 13:58 CDTWorkstation Name: [id number] FLUID CELL COUNT WITH [id number] 13:48:51 Test Item Value Reference Range Interpretation Comments APPEARANCE FLUID Bloody Clear A (BEAKER) (test code = 510) COLOR FLUID (BEAKER) Red Colorless, Straw A (test code = 511) RBC FLUID (BEAKER) 53310 /cu mm See_Comment H [Automat ed message] (test code = 513) The system which generated this result transmit joanna reference range : <=1. The refere nce range was not u sed to interpret th is result as normal/abnormal . TOTAL NUCLEATED CELL 1045 /cu mm See_Comment H [Autom ated message] COUNT (BEAKER) (test The s tem which code = 1442) generated this result transmit joanna reference range : <=5. The refere nce range was not u sed to interpret th is result as normal/abnormal . ADJUSTED WBC FLUID 1045 /cu mm See_Comment H [Automat ed message] (BEAKER) (test code The syst em which = 1691) generated this result transmit joanna reference range : <=5. The refere nce range was not u sed to interpret th is result as normal/abnormal . LINING CELLS/OTHERS, 0 /cu mm See_Comment [Autom ated message] CALCULATED (BEAKER) The syst em which (test code = 1590) generated this result transmit joanna reference range : <=1. The refere nce range was not u sed to interpret th is result as normal/abnormal . NEUTROPHILS FLUID 6 % (BEAKER) (test code = 1656) LYMPHS FLUID 37 % (BEAKER) (test code = 488) MONO/MACROPHAGE 57 % FLUID (BEAKER) (test code = 489) EOSINOPHILS FLUID 0 % (BEAKER) (test code = 491) BASO FLUID (BEAKER) 0 % (test code = 492) CONTAINER BODY FLUID EDTA Tube (BEAKER) (test code = 2873) BODY FLUID CELL COUNT WITH [id number] 13:48:16 Test Item Value Reference Range Interpretation Comments APPEARANCE FLUID Bloody Clear A (BEAKER) (test code = 510) COLOR FLUID (BEAKER) Red Colorless, Straw A (test code = 511) RBC FLUID (BEAKER) 65293 /cu mm See_Comment H [Automat ed message] (test code = 513) The system which generated this result transmit joanna reference range : <=1. The refere nce range was not u sed to interpret th is result as normal/abnormal . TOTAL NUCLEATED CELL 914 /cu mm See_Comment H [Autom ated message] COUNT (BEAKER) (test The s tem which code = 1442) generated this result transmit joanna reference range : <=5. The refere nce range was not u sed to interpret th is result as normal/abnormal . ADJUSTED WBC FLUID 862 /cu mm See_Comment H [Automat ed message] (BEAKER) (test code The syst em which = 1691) generated this result transmit joanna reference range : <=5. The refere nce range was not u sed to interpret th is result as normal/abnormal . LINING CELLS/OTHERS, 52 /cu mm See_Comment H [Autom ated message] CALCULATED (BEAKER) The syst em which (test code = 1590) generated this result transmit joanna reference range : <=1. The refere nce range was not u sed to interpret th is result as normal/abnormal . NEUTROPHILS FLUID 52 % (BEAKER) (test code = 1656) LYMPHS FLUID 34 % (BEAKER) (test code = 488) MONO/MACROPHAGE 14 % FLUID (BEAKER) (test code = 489) EOSINOPHILS FLUID 0 % (BEAKER) (test code = 491) BASO FLUID (BEAKER) 0 % (test code = 492) CONTAINER BODY FLUID EDTA Tube (BEAKER) (test code = 2873) XR CHEST 1 VIEW PORTABLE / [id number] 11:47:09 [facility] : 1965 Sex: FEXAMINATION: XR CHEST 1 VIEW PORTABLE / BEDSIDE INDICATION: s/p left thoraCOMPARISON: CXR of the prior day FINDINGS:LINES/TUBES: None LUNGS: The lungs are well inflated. Mild left basilar opacities,decreased from the prior day.PLEURA: No pneumothorax following left thoracentesis. No significantresidual pleural effusion.MEDIASTINUM: The cardiomediastinal silhouette appears normal in size andshape. Atherosclerotic calcifications of the thoracic aorta.BONES/SOFT TISSUES: No acute osseous injury.ABDOMEN: Nofree air under the diaphragm.IMPRESSION:No pneumothorax following left thoracentesis.Electronically Signed By: Deandre Retana05/27/2023 12:01 CDTWorkstation Name: [id number] 2023-05-27 07:10:45 Test Item Value Reference Range Interpretation Comments MAGNESIUM (BEAKER) (test code = 2.2 mg/dL 1.6-2.6 627) Filler Shredding Machine Loader ID - ADMINHEPATIC FUNCTION [id number] 07:10:45 Test Item Value Reference Range Interpretation Comments TOTAL PROTEIN (BEAKER) (test code = 5.8 gm/dL 6.0-8.3 L 770) ALBUMIN (BEAKER) (test code = 1145) 2.8 g/dL 3.5-5.0 L BILIRUBIN TOTAL (BEAKER) (test code 1.6 mg/dL 0.2-1.2 H = 377) BILIRUBIN DIRECT (BEAKER) (test 0.8 mg/dL 0.1-0.5 H code = 706) ALKALINE PHOSPHATASE (BEAKER) (test 87 U/L 40-150 code = 346) AST (SGOT) (BEAKER) (test code = 43 U/L 5-34 H 353) ALT (SGPT) (BEAKER) (test code = 25 U/L 6-55 347) Filler Shredding Machine Loader ID - ADMINBASIC METABOLIC [id number] 07:10:44 Test Item Value Reference Range Interpretation Comments SODIUM (BEAKER) 133 meq/L 136-145 L (test code = 381) POTASSIUM 4.8 meq/L 3.5-5.1 (BEAKER) (test code = 379) CHLORIDE (BEAKER) 108 meq/L 98-107 H (test code = 382) CO2 (BEAKER) 20 meq/L 22-29 L (test code = 355) BLOOD UREA 29 mg/dL 7-21 H NITROGEN (BEAKER) (test code = 354) CREATININE 1.11 mg/dL 0.57-1.25 (BEAKER) (test code = 358) GLUCOSE RANDOM 85 mg/dL 70-105 (BEAKER) (test code = 652) CALCIUM (BEAKER) 8.1 mg/dL 8.4-10.2 L (test code = 697) EGFR (BEAKER) 57 Interpretatio n of eGFR (test code = [...] not appl icable for dialysis patien ts Filler Shredding Machine Loader ID - ADMINPROTHROMBIN TIME/[id number] 06:47:38 Test Item Value Reference Range Interpretation Comments PROTIME (BEAKER) 19.9 seconds 11.9-14.2 H (test code = 759) INR (BEAKER) (test 1.81 See_Comment [Automat ed message] code = 370) The system [employer] generated this result transmitted ref erence range: <=5.90. The reference range was not used to int erpret this result as normal/abnormal . RECOMMENDED COUMADIN/WARFARIN INR THERAPY RANGESSTANDARD DOSE: 2.0 - 3.0 Includes: PROPHYLAXIS for venous thrombosis, systemic embolization; TREATMENT for venous thrombosis and/or pulmonary embolus.HIGH RISK: Target INR is 2.5-3.5 for patients with mechanical heart valves.CBC W/PLT COUNT & AUTO [id number] 06:46:29 Test Item Value Reference Range Interpretation Comments WHITE BLOOD CELL COUNT (BEAKER) 6.6 K/ L 3.5-10.5 (test code = 775) RED BLOOD CELL COUNT (BEAKER) 2.86 M/ L 3.93-5.22 L (test code = 761) HEMOGLOBIN (BEAKER) (test code = 9.7 GM/DL 11.2-15.7 L 410) HEMATOCRIT (BEAKER) (test code = 29.3 % 34.1-44.9 L 411) MEAN CORPUSCULAR VOLUME (BEAKER) 102 fL 79-95 H (test code = 753) MEAN CORPUSCULAR HEMOGLOBIN 33.9 pg 25.6-32.2 H (BEAKER) (test code = 751) MEAN CORPUSCULAR HEMOGLOBIN CONC 33.1 GM/DL 32.2-35.5 (BEAKER) (test code = 752) RED CELL DISTRIBUTION WIDTH 15.2 % 11.7-14.4 H (BEAKER) (test code = 412) PLATELET COUNT (BEAKER) (test code 71 K/CU MM 150-450 L = 756) MEAN PLATELET VOLUME (BEAKER) 11.1 fL 9.4-12.3 (test code = 754) NUCLEATED RED BLOOD CELLS (BEAKER) 0 /100 WBC 0-0 (test code = 413) NEUTROPHILS RELATIVE PERCENT 64 % (BEAKER) (test code = 429) LYMPHOCYTES RELATIVE PERCENT 13 % (BEAKER) (test code = 430) MONOCYTES RELATIVE PERCENT 16 % (BEAKER) (test code = 431) EOSINOPHILS RELATIVE PERCENT 6 % (BEAKER) (test code = 432) BASOPHILS RELATIVE PERCENT 1 % (BEAKER) (test code = 437) NEUTROPHILS ABSOLUTE COUNT 4.26 K/ L 1.56-6.13 (BEAKER) (test code = 670) LYMPHOCYTES ABSOLUTE COUNT 0.83 K/ L 1.18-3.74 L (BEAKER) (test code = 414) MONOCYTES ABSOLUTE COUNT (BEAKER) 1.06 K/ L 0.24-0.36 H (test code = 415) EOSINOPHILS ABSOLUTE COUNT 0.40 K/ L 0.04-0.36 H (BEAKER) (test code = 416) BASOPHILS ABSOLUTE COUNT (BEAKER) 0.04 K/ L 0.01-0.08 (test code = 417) IMMATURE GRANULOCYTES-RELATIVE 0.30 % 0.00-1.00 PERCENT (BEAKER) (test code = 2801) COMPREHENSIVE METABOLIC [id number] 18:10:21 Test Item Value Reference Range Interpretation Comments TOTAL PROTEIN 6.6 gm/dL 6.0-8.3 Specimen sligh tly (BEAKER) (test hemolyzed code = 770) ALBUMIN (BEAKER) 3.1 g/dL 3.5-5.0 L Specimen sl ightly (test code = 1145) hemolyzed ALKALINE 103 U/L 40-150 PHOSPHATASE (BEAKER) (test code = 346) BILIRUBIN TOTAL 1.7 mg/dL 0.2-1.2 H Specimen sli ghtly (BEAKER) (test hemolyzed code = 377) SODIUM (BEAKER) 132 meq/L 136-145 L (test code = 381) POTASSIUM (BEAKER) 5.1 meq/L 3.5-5.1 Specimen slightly (test code = 379) hemolyzed CHLORIDE (BEAKER) 109 meq/L 98-107 H (test code = 382) CO2 (BEAKER) (test 19 meq/L 22-29 L code = 355) BLOOD UREA 29 mg/dL 7-21 H NITROGEN (BEAKER) (test code = 354) CREATININE 1.25 mg/dL 0.57-1.25 Specimen slight ly (BEAKER) (test hemolyzed code = 358) GLUCOSE RANDOM 120 mg/dL 70-105 H (BEAKER) (test code = 652) CALCIUM (BEAKER) 8.5 mg/dL 8.4-10.2 (test code = 697) AST (SGOT) 57 U/L 5-34 H Specimen slight ly (BEAKER) (test hemolyzed code = 353) ALT (SGPT) 31 U/L 6-55 Specimen slight ly (BEAKER) (test hemolyzed code = 347) EGFR (BEAKER) 50 Interpretatio n of eGFR (test code = [...] not appl icable for dialysis patien ts Filler Shredding Machine Loader ID - ADMINXR CHEST 1 VIEW PORTABLE / [id number] 18:02:01 [facility] : 1965 Sex: FTECHNIQUE: Frontal view of the chest.INDICATION: eval for left pleural effusion.COMPARISON: 05/23/2023.FINDINGS:LINES/TUBES: None.HEART AND MEDIASTINUM: Cardiomediastinal contour is stable. LUNGS: The lungs are well inflated and clear. No consolidation orpulmonary edema.PLEURA: New small left pleural effusion. No pneumothorax.SOFT TISSUES AND BONES: Unremarkable.IMPRESSION:1. New small left pleural effusion. No pneumothorax.Electronically Signed By: Adilia Polanco05/26/2023 18:04 CDTWorkstation Name:[id number] ACID, VENOUS 2023-05-26 17:59:38 Test Item Value Reference Range Interpretation Comments LACTATE BLOOD VENOUS 1.75 mmol/L 0.50-2.00 Specime n slightly (2) (BEAKER) (test hemolyzed code = 2872) [employer] Loader ID - ADMINCBC W/PLT COUNT & AUTO [id number] 17:55:38 Test Item Value Reference Range Interpretation Comments WHITE BLOOD CELL COUNT (BEAKER) 7.5 K/ L 3.5-10.5 (test code = 775) RED BLOOD CELL COUNT (BEAKER) 3.28 M/ L 3.93-5.22 L (test code = 761) HEMOGLOBIN (BEAKER) (test code = 11.2 GM/DL 11.2-15.7 410) HEMATOCRIT (BEAKER) (test code = 33.3 [...] = 412) PLATELET COUNT (BEAKER) (test code 72 K/CU MM 150-450 L = 756) MEAN PLATELET VOLUME (BEAKER) 11.1 fL 9.4-12.3 (test code = 754) NUCLEATED RED BLOOD CELLS (BEAKER) 0 /100 WBC 0-0 (test code = 413) NEUTROPHILS RELATIVE PERCENT 72 % (BEAKER) (test code = 429) LYMPHOCYTES RELATIVE PERCENT 9 % (BEAKER) (test code = 430) MONOCYTES RELATIVE PERCENT 15 % (BEAKER) (test code = 431) EOSINOPHILS RELATIVE PERCENT 4 % (BEAKER) (test code = 432) BASOPHILS RELATIVE PERCENT 0 % (BEAKER) (test code = 437) NEUTROPHILS ABSOLUTE COUNT 5.42 K/ L 1.56-6.13 (BEAKER) (test code = 670) LYMPHOCYTES ABSOLUTE COUNT 0.66 K/ L 1.18-3.74 L (BEAKER) (test code = 414) MONOCYTES ABSOLUTE COUNT (BEAKER) 1.14 K/ L 0.24-0.36 H (test code = 415) EOSINOPHILS ABSOLUTE COUNT 0.26 K/ L 0.04-0.36 (BEAKER) (test code = 416) BASOPHILS ABSOLUTE COUNT (BEAKER) 0.02 K/ L 0.01-0.08 (test code = 417) IMMATURE GRANULOCYTES-RELATIVE 0.10 % 0.00-1.00 PERCENT (BEAKER) (test code = 2801) HIGH SENSITIVITY TROPONIN [id number] 21:21:49 Test Item Value Reference Range Interpretation Comments HIGH SENSITIVITY < pg/ml See_Comment [Automated message] TROPONIN I (test code = The system which 8271985) generated this result transmitted ref erence range: <=17. Th e reference range was not used to interpr et this result as normal/abnormal . Filler Shredding Machine Loader ID - ADMINThe AUTOMATIC LATHE SETTER STAT High Sensitivity Troponin-I results should be used in conjunction with other diagnostic information such as ECG, clinical observations and information, and patientsymptoms to aid in the diagnosis of ND. [id number] 21:18:10 Test Item Value Reference Range Interpretation Comments LIPASE (BEAKER) (test code = 749) 190 U/L 8-78 H Filler Shredding Machine Loader ID - ADMINCOMPREHENSIVE METABOLIC [id number] 21:18:09 Test Item Value Reference Range Interpretation Comments TOTAL PROTEIN 6.8 gm/dL 6.0-8.3 (BEAKER) (test code = 770) ALBUMIN (BEAKER) 3.3 g/dL 3.5-5.0 L (test code = 1145) ALKALINE 104 U/L 40-150 PHOSPHATASE (BEAKER) (test code = 346) BILIRUBIN TOTAL 1.5 mg/dL 0.2-1.2 H (BEAKER) (test code = 377) SODIUM (BEAKER) 133 meq/L 136-145 L (test code = 381) POTASSIUM (BEAKER) 4.7 meq/L 3.5-5.1 (test code = 379) CHLORIDE (BEAKER) 108 meq/L 98-107 H (test code = 382) CO2 (BEAKER) (test 18 meq/L 22-29 L code = 355) BLOOD UREA 28 mg/dL 7-21 H NITROGEN (BEAKER) (test code = 354) CREATININE 1.27 mg/dL 0.57-1.25 H (BEAKER) (test code = 358) GLUCOSE RANDOM 78 mg/dL 70-105 (BEAKER) (test code = 652) CALCIUM (BEAKER) 8.5 mg/dL 8.4-10.2 (test code = 697) AST (SGOT) 53 U/L 5-34 H (BEAKER) (test code = 353) ALT (SGPT) 30 U/L 6-55 (BEAKER) (test code = 347) EGFR (BEAKER) 49 Interpretatio [...] not appl icable for dialysis patien ts Filler Shredding Machine Loader ID - [id number] 21:18:09 Test Item Value Reference Range Interpretation Comments MAGNESIUM (BEAKER) (test code = 2.3 mg/dL 1.6-2.6 627) Filler Shredding Machine Loader ID - ADMINCBC W/PLT COUNT & AUTO [id number] 21:03:50 Test Item Value Reference Range Interpretation Comments WHITE BLOOD CELL COUNT (BEAKER) 8.7 K/ L 3.5-10.5 (test code = 775) RED BLOOD CELL COUNT (BEAKER) 3.37 M/ L 3.93-5.22 L (test code = 761) HEMOGLOBIN (BEAKER) (test code = 11.4 GM/DL 11.2-15.7 410) HEMATOCRIT (BEAKER) (test code = 33.8 % 34.1-44.9 L 411) MEAN CORPUSCULAR VOLUME (BEAKER) 100 fL 79-95 H (test code = 753) MEAN CORPUSCULAR HEMOGLOBIN 33.8 pg 25.6-32.2 H (BEAKER) (test code = 751) MEAN CORPUSCULAR HEMOGLOBIN CONC 33.7 GM/DL 32.2-35.5 (BEAKER) (test code = 752) RED CELL DISTRIBUTION WIDTH 15.1 % 11.7-14.4 H (BEAKER) (test code = 412) PLATELET COUNT (BEAKER) (test code 87 K/CU MM 150-450 L = 756) MEAN PLATELET VOLUME (BEAKER) 10.0 fL 9.4-12.3 (test code = 754) NUCLEATED RED BLOOD CELLS (BEAKER) 0 /100 WBC 0-0 (test code = 413) NEUTROPHILS RELATIVE PERCENT 67 % (BEAKER) (test code = 429) LYMPHOCYTES RELATIVE PERCENT 12 % (BEAKER) (test code = 430) MONOCYTES RELATIVE PERCENT 17 % (BEAKER) (test code = 431) EOSINOPHILS RELATIVE PERCENT 4 % (BEAKER) (test code = 432) BASOPHILS RELATIVE PERCENT 1 % (BEAKER) (test code = 437) NEUTROPHILS ABSOLUTE COUNT 5.82 K/ L 1.56-6.13 (BEAKER) (test code = 670) LYMPHOCYTES ABSOLUTE COUNT 1.00 K/ L 1.18-3.74 L (BEAKER) (test code = 414) MONOCYTES ABSOLUTE COUNT (BEAKER) 1.50 K/ L 0.24-0.36 H (test code = 415) EOSINOPHILS ABSOLUTE COUNT 0.32 K/ L 0.04-0.36 (BEAKER) (test code = 416) BASOPHILS ABSOLUTE COUNT (BEAKER) 0.04 K/ L 0.01-0.08 (test code = 417) IMMATURE GRANULOCYTES-RELATIVE 0.50 % 0.00-1.00 PERCENT (BEAKER) (test code = 2801) US [id number] 10:13:39 [facility] 1965 Sex: FUltrasound guided left thoracentesis.Clinical History: Left pleural effusion.Modality: Ultrasound.Sedation: None. Child Protection Specialist: Danuta Corralistant: None. Estimated Blood Loss: 1ccSpecimen: 1800 cc of cloudy serosanguineous fluid. Technique: Informed [...] uncomplicated ultrasound guided left thoracentesis.Electronically Signed By: Chano Enriquez05/24/2023 10:15 CDTWorkstation Name: [id number] FLUID CELL COUNT WITH [id number] 14:05:09 Test Item Value Reference Range Interpretation Comments APPEARANCE FLUID Cloudy Clear A (BEAKER) (test code = 510) COLOR FLUID (BEAKER) [place] Colorless, Straw A (test code = 511) RBC FLUID (BEAKER) 41690 /cu mm See_Comment H [Automat ed message] (test code = 513) The system which generated this result transmit joanna reference range : <=1. The refere nce range was not u sed to interpret th is result as normal/abnormal . TOTAL NUCLEATED CELL 740 /cu mm See_Comment H [Autom ated message] COUNT (BEAKER) (test The sys tem which code = 1442) generated this result transmit joanna reference range : <=5. The refere nce range was not u sed to interpret th is result as normal/abnormal . ADJUSTED WBC FLUID 733 /cu mm See_Comment H [Automat ed message] (BEAKER) (test code The syst em which = 1691) generated this result transmit joanna reference range : <=5. The refere nce range was not u sed to interpret th is result as normal/abnormal . LINING CELLS/OTHERS, 7 /cu mm See_Comment H [Autom ated message] CALCULATED (BEAKER) The syst em which (test code = 1590) generated this result transmit joanna reference range : <=1. The refere nce range was not u sed to interpret th is result as normal/abnormal . NEUTROPHILS FLUID 16 % (BEAKER) (test code = 1656) LYMPHS FLUID 65 % (BEAKER) (test code = 488) MONO/MACROPHAGE 19 % FLUID (BEAKER) (test code = 489) EOSINOPHILS FLUID 0 % (BEAKER) (test code = 491) BASO FLUID (BEAKER) 0 % (test code = 492) CONTAINER BODY FLUID Sterile Vial (BEAKER) (test code = 2873) XR CHEST 1 VIEW PORTABLE / [id number] 10:01:15 [facility] : 1965 Sex: FEXAMINATION: XR CHEST 1 VIEW PORTABLE / BEDSIDE INDICATION: s/p left thoraCOMPARISON: May 20, 2023 FINDINGS:LINES/TUBES: None LUNGS: The lungs are well inflated. No focal airspace consolidation.PLEURA:No pleural effusion or pneumothorax.MEDIASTINUM: The cardiomediastinal silhouette appears normal in size andshape.BONES/SOFT TISSUES: No acute osseous injury.ABDOMEN: No free air under the diaphragm.IMP RESSION:No focal pneumonia or airspace edema.Electronically Signed By: Alexandro Ryang005/23/2023 10:03 CDTWorkstation Name: [id number] 17:34:08[facility] : 1965 Sex: FUltrasound guided paracentesis.Clinical History: Ascites.Sedation: None. Child Protection Specialist: Hannah Munozt: None. Estimated Blood Loss: < 1 cc.Specimen: 3000 cc of serosanguineous fluid, samples sent to laboratory.Technique: Informed consent was obtained. The risks of pain, bleeding,infection, bowel perforation, injury to adjacent structures, and adversemedication reactions were discussed with the patient. After informedconsent was obtained, the patient's abdomen was scanned. The rightupper quadrant of the abdomen was selected for paracentesis. After thelargest fluid pocket area was marked, and the anterior abdominal wallwas evaluated with color Doppler to exclude presence of blood vesselstraversing the area, the skin was prepped and draped in the usualsterile manner. After local anesthesia was achieved with 2% lidocaine,a 5 Italian one-step catheter was advanced into the peritoneal cavityunder ultrasound guidance. After completion of drainage, the catheterwas removed. There was no evidence of complication.IMPRESSION:Impression:Successful ultrasound guided paracentesis. Electronically Signed By: Galen Lovett05/20/2023 17:36 CDTWorkstation Name: [id number] 17:34:07 [facility] : 1965 Sex: FUltrasound guided left-sided thoracentesis.Clinical History: Left pleural effusion.Modality: Ultrasound.Sedation: None. Child Protection Specialist: Ellis Munozistant: None. Estimated Blood Loss: 1ccSpecimen: 2100 cc of serosanguineous fluid. Technique: Informed consent was obtained. The risks of pain, bleeding,infection, lung collapse/pneumothorax, injury to adjacent structures,and adverse medication reactions were discussed with the patient. Thepatient's left-sided hemithorax was scanned from the back, withthepatient in a sitting position. After the largest fluid pocket area wasmarked, the skin was prepped and draped in the usual sterile manner. The area was anesthetized with 2% lidocaine, a 4F one-step catheter wasadvanced into the pleural space under ultrasound guidance. Aftercompletion of drainage, the catheter was removed. There was no evidenceof immediate complication. Post procedure chest x-ray demonstrated nopneumothorax. IMPRESSION:Impression:Successful and uncomplicated ultrasound guided left-sided thoracentesis.Electronically Signed By: Galen Lovett05/20/2023 17:36 CDTWorkstation Name: [id number] FLUID CELL COUNT WITH [id number] 15:58:13 Test Item Value Reference Range Interpretation Comments APPEARANCE FLUID Cloudy Clear A (BEAKER) (test code = 510) COLOR FLUID (BEAKER) [place] Colorless, Straw A (test code = 511) RBC FLUID (BEAKER) 48453 /cu mm See_Comment H [Automat ed message] (test code = 513) The system which generated this result transmit joanna reference range : <=1. The refere nce range was not u sed to interpret th is result as normal/abnormal . TOTAL NUCLEATED CELL 556 /cu mm See_Comment H [Autom ated message] COUNT (BEAKER) (test The sys tem which code = 1442) generated this result transmit joanna reference range : <=5. The refere nce range was not u sed to interpret th is result as normal/abnormal . ADJUSTED WBC FLUID 392 /cu mm See_Comment H [Automat ed message] (BEAKER) (test code The syst em which = 1691) generated this result transmit joanna reference range : <=5. The refere nce range was not u sed to interpret th is result as normal/abnormal . LINING CELLS/OTHERS, 164 /cu mm See_Comment H [Autom ated message] CALCULATED (BEAKER) The syst em which (test code = 1590) generated this result transmit joanna reference range : <=1. The refere nce range was not u sed to interpret th is result as normal/abnormal . NEUTROPHILS FLUID 21 % (BEAKER) (test code = 1656) LYMPHS FLUID 70 % (BEAKER) (test code = 488) MONO/MACROPHAGE 8 % FLUID (BEAKER) (test code = 489) EOSINOPHILS FLUID 1 % (BEAKER) (test code = 491) BASO FLUID (BEAKER) 0 % (test code = 492) CONTAINER BODY FLUID Sterile Vial (BEAKER) (test code = 2873) BODY FLUID CELL COUNT WITH [id number] 15:56:10 Test Item Value Reference Range Interpretation Comments APPEARANCE FLUID Cloudy Clear A (BEAKER) (test code = 510) COLOR FLUID (BEAKER) [place] Colorless, Straw A (test code = 511) RBC FLUID (BEAKER) 35507 /cu mm See_Comment H [Automat ed message] (test code = 513) The system which generated this result transmit joanna reference range : <=1. The refere nce range was not u sed to interpret th is result as normal/abnormal . TOTAL NUCLEATED CELL 665 /cu mm See_Comment H [Autom ated message] COUNT (BEAKER) (test The sys tem which code = 1442) generated this result transmit joanna reference range : <=5. The refere nce range was not u sed to interpret th is result as normal/abnormal . ADJUSTED WBC FLUID 665 /cu mm See_Comment H [Automat ed message] (BEAKER) (test code The syst em which = 1691) generated this result transmit joanna reference range : <=5. The refere nce range was not u sed to interpret th is result as normal/abnormal . LINING CELLS/OTHERS, 0 /cu mm See_Comment [Autom ated message] CALCULATED (BEAKER) The syst em which (test code = 1590) generated this result transmit joanna reference range : <=1. The refere nce range was not u sed to interpret th is result as normal/abnormal . NEUTROPHILS FLUID 3 % (BEAKER) (test code = 1656) LYMPHS FLUID 84 % (BEAKER) (test code = 488) MONO/MACROPHAGE 13 % FLUID (BEAKER) (test code = 489) EOSINOPHILS FLUID 0 % (BEAKER) (test code = 491) BASO FLUID (BEAKER) 0 % (test code = 492) CONTAINER BODY FLUID Sterile Vial (BEAKER) (test code = 2873) XR CHEST 1 VIEW PORTABLE / [id number] 13:41:18 [facility] : 1965 Sex: FINDICATION: Post Thoracentesis LeftCOMPARISON: NoneTECHNIQUE: Single frontal view of the chest.FINDINGS: Lungs and pleura: Clear lungs. No effusion. No pneumothorax.Heart and mediastinum: Normal heart size.Unremarkable mediastinalcontours.Osseous structures: No acute abnormality.Other: None.IMPRESSION:No acute intrathoracic abnormality.Electronically Signed By: Estrella Walters05/20/2023 13:58 CDTWorkstation Name: [id number] 2023-05-20 11:08:26 Test Item Value Reference Range Interpretation Comments POC-CREATININ 1.8 mg/dL 0.6-1.3 H : TESTED AT [facility] [address]BEAKER) [place], [address]: (test code = Filler Shredding Machine Loader/Techni shavon ID = [id number]) [id number] for Roseanna Abdi POC-EGFR 32 Interpretation of eGFR (BEAKER) mL/min/1.73M2 Values Stage D escription (test code = Result G1 [place] l or high 1860) >=90 G2 Mildly decreased 60-89 G3a Mildl y to moderately 45-5 9 G3b Moderately to s michelle 30-44 G4 Severely dec reased 15-29 G5 Kidney Failu re <15Reported eGF R is based on the CKD-EPI 202 1 equation that does not u se a race coefficientEsti mated GFR is not as accurate as Creatinine Carol rockwell in predicting glom erular filtration rate . Estimated GFR is not appl icable for dialysis patien ts BLOOD [id number] 13:01:03 Test Item Value Reference Range Interpretation Comments CULTURE (BEAKER) (test No growth in 5 days code = 1095) BLOOD [id number] 13:00:54 Test Item Value Reference Range Interpretation Comments CULTURE (BEAKER) (test No growth in 5 days code = 1095) The specimen volume collected for this blood culture was below the optimum (10 mL per bottle or 20 mL total). Use of lower volumes may adversely affect recovery and/or detection times of some organisms.[id number] 04:55:48 Test Item Value Reference Range Interpretation Comments PHOSPHORUS (BEAKER) (test code = 3.0 mg/dL 2.3-4.7 604) Filler Shredding Machine Loader ID - ADMINCOMPREHENSIVE METABOLIC [id number] 04:55:47 Test Item Value Reference Range Interpretation Comments TOTAL PROTEIN 6.2 gm/dL 6.0-8.3 (BEAKER) (test code = 770) ALBUMIN (BEAKER) 3.2 g/dL 3.5-5.0 L (test code = 1145) ALKALINE 80 U/L 40-150 PHOSPHATASE (BEAKER) (test code = 346) BILIRUBIN TOTAL 1.2 mg/dL 0.2-1.2 (BEAKER) (test code = 377) SODIUM (BEAKER) 134 meq/L 136-145 L (test code = 381) POTASSIUM (BEAKER) 4.3 meq/L 3.5-5.1 (test code = 379) CHLORIDE (BEAKER) 108 meq/L 98-107 H (test code = 382) CO2 (BEAKER) (test 19 meq/L 22-29 L code = 355) BLOOD UREA 14 mg/dL 7-21 NITROGEN (BEAKER) (test code = 354) CREATININE 1.07 mg/dL 0.57-1.25 (BEAKER) (test code = 358) GLUCOSE RANDOM 114 mg/dL 70-105 H (BEAKER) (test code = 652) CALCIUM (BEAKER) 8.1 mg/dL 8.4-10.2 L (test code = 697) AST (SGOT) 35 U/L 5-34 H (BEAKER) (test code = 353) ALT (SGPT) 23 U/L 6-55 (BEAKER) (test code = 347) EGFR (BEAKER) 60 Interpretatio n of eGFR (test code = 1092) mL/min/1.[address] age Description sq m Result G1 [place] l or high >=90 G2 Mildly decreased 60-89 G3a Mildl y to moderately 45-5 9 G3b Moderately to s everely 30-44 G4 Sever ly decreased 15-29 G5 Kidney failure <15Repo rted eGFR is based on the CKD-EPI 1 equation t hat does not use a race coefficientEsti mated GFR is not as accur ate as Creatinine Carol rockwell in predicting glom erular filtration rate . Estimated GFR is not appl icable for dialysis patien ts Filler Shredding Machine Loader ID - [id number] 04:55:47 Test Item Value Reference Range Interpretation Comments MAGNESIUM (BEAKER) (test code = 1.9 mg/dL 1.6-2.6 627) Filler Shredding Machine Loader ID - ADMINCALCIUM, [id number] 04:34:04 Test Item Value Reference Range Interpretation Comments CALCIUM IONIZED (BEAKER) (test 1.14 mmol/L 1.12-1.27 code = 698) PH, BLOOD (BEAKER) (test code = 7.35 1810) CBC W/PLT COUNT & AUTO [id number] 04:30:17 Test Item Value Reference Range Interpretation Comments WHITE BLOOD CELL COUNT (BEAKER) 5.3 K/ L 3.5-10.5 (test code = 775) RED BLOOD CELL COUNT (BEAKER) 3.23 M/ L 3.93-5.22 L (test code = 761) HEMOGLOBIN (BEAKER) (test code = 10.9 GM/DL 11.2-15.7 L 410) HEMATOCRIT (BEAKER) (test code = 33.2 % 34.1-44.9 L 411) MEAN CORPUSCULAR VOLUME (BEAKER) 103 fL 79-95 H (test code = 753) MEAN CORPUSCULAR HEMOGLOBIN 33.7 pg 25.6-32.2 H (BEAKER) (test code = 751) MEAN CORPUSCULAR HEMOGLOBIN CONC 32.8 GM/DL 32.2-35.5 (BEAKER) (test code = 752) RED CELL DISTRIBUTION WIDTH 14.3 % 11.7-14.4 (BEAKER) (test code = 412) PLATELET COUNT (BEAKER) (test code 57 K/CU MM 150-450 L = 756) MEAN PLATELET VOLUME (BEAKER) 10.6 fL 9.4-12.3 (test code = 754) NUCLEATED RED BLOOD CELLS (BEAKER) 0 /100 WBC 0-0 (test code = 413) NEUTROPHILS RELATIVE PERCENT 65 % (BEAKER) (test code = 429) LYMPHOCYTES RELATIVE PERCENT 14 % (BEAKER) (test code = 430) MONOCYTES RELATIVE PERCENT 15 % (BEAKER) (test code = 431) EOSINOPHILS RELATIVE PERCENT 6 % (BEAKER) (test code = 432) BASOPHILS RELATIVE PERCENT 1 % (BEAKER) (test code = 437) NEUTROPHILS ABSOLUTE COUNT 3.43 K/ L 1.56-6.13 (BEAKER) (test code = 670) LYMPHOCYTES ABSOLUTE COUNT 0.71 K/ L 1.18-3.74 L (BEAKER) (test code = 414) MONOCYTES ABSOLUTE COUNT (BEAKER) 0.77 K/ L 0.24-0.36 H (test code = 415) EOSINOPHILS ABSOLUTE COUNT 0.29 K/ L 0.04-0.36 (BEAKER) (test code = 416) BASOPHILS ABSOLUTE COUNT (BEAKER) 0.04 K/ L 0.01-0.08 (test code = 417) IMMATURE GRANULOCYTES-RELATIVE 0.60 % 0.00-1.00 PERCENT (BEAKER) (test code = 2801) URINALYSIS W/ REFLEX URINE [id number] 17:32:40 Test Item Value Reference Range Interpretation Comments COLOR (BEAKER) (test code = 470) Yellow CLARITY (BEAKER) (test code = 469) Cloudy SPECIFIC GRAVITY UA (BEAKER) (test 1.017 1.001-1.035 code = 468) PH UA (BEAKER) (test code = 467) 6.0 5.0-8.0 PROTEIN UA (BEAKER) (test code = 20 mg/dL Negative A 464) GLUCOSE UA (BEAKER) (test code = Negative Negative 365) KETONES UA (BEAKER) (test code = Negative Negative 371) BILIRUBIN UA (BEAKER) (test code = Negative Negative 462) BLOOD UA (BEAKER) (test code = 461) Large Negative A NITRITE UA (BEAKER) (test code = Negative Negative 465) LEUKOCYTE ESTERASE UA (BEAKER) (test Negative Negative code = 466) UROBILINOGEN UA (BEAKER) (test code 0.2 0.2-1.0 = 463) RBC UA (BEAKER) (test code = 519) 51 /HPF WBC UA (BEAKER) (test code = 520) 2 /HPF SQUAMOUS EPITHELIAL (BEAKER) (test < /HPF code = 516) SOURCE(BEAKER) (test code = 2795) Filler Shredding Machine Loader ID - [auto]Filler Shredding Machine Loader ID - techUS [id number] 16:48:41 [facility] 1965 Sex: FUltrasound guided left-sided thoracentesis.Clinical History: Left pleural effusion.Modality: Ultrasound.Sedation: None. Child Protection Specialist: Ellis Munozistant: None. Estimated Blood Loss: 1ccSpecimen: 1400 cc [...] wasanesthetized with 2% lidocaine, a 4F one-step catheter was advanced intothe pleural space under ultrasound guidance. After completion ofdrainage, the catheter was removed. There was no evidence of immediatecomplication. Post procedure chest x-ray demonstrated no pneumothorax. IMPRESSION:Impression:Successful and uncomplicated ultrasound guided left-sided thoracentesis. Electronically Signed By: Lee Diaz05/17/2023 16:50 CDTWorkstation Name: [id number] FLUID CELL COUNT WITH [id number] 15:03:14 Test Item Value Reference Range Interpretation Comments APPEARANCE FLUID Bloody Clear A (BEAKER) (test code = 510) COLOR FLUID (BEAKER) Red Colorless, Straw A (test code = 511) RBC FLUID (BEAKER) 13517 /cu mm See_Comment H [Automat ed message] (test code = 513) The system which generated this result transmit joanna reference range : <=1. The refere nce range was not u sed to interpret th is result as normal/abnormal . TOTAL NUCLEATED CELL 774 /cu mm See_Comment H [Autom ated message] COUNT (BEAKER) (test The s tem which code = 1442) generated this result transmit joanna reference range : <=5. The refere nce range was not u sed to interpret th is result as normal/abnormal . ADJUSTED WBC FLUID 774 /cu mm See_Comment H [Automat ed message] (BEAKER) (test code The syst em which = 1699) generated this result transmit joanna reference range : <=5. The refere nce range was not u sed to interpret th is result as normal/abnormal . LINING CELLS/OTHERS, 0 /cu mm See_Comment [Autom ated message] CALCULATED (BEAKER) The syst em which (test code = 1590) generated this result transmit joanna reference range : <=1. The refere nce range was not u sed to interpret th is result as normal/abnormal . NEUTROPHILS FLUID 0 % (BEAKER) (test code = 1656) LYMPHS FLUID 95 % (BEAKER) (test code = 488) MONO/MACROPHAGE 5 % FLUID (BEAKER) (test code = 489) EOSINOPHILS FLUID 0 % (BEAKER) (test code = 491) BASO FLUID (BEAKER) 0 % (test code = 492) CONTAINER BODY FLUID Red Top Tube (BEAKER) (test code = 2873) XR CHEST 1 VIEW PORTABLE / [id number] 10:59:37 [facility] : 1965 Sex: FINDICATION: s/p left thoracentesisCOMPARISON: 05/13/2023TECHNIQUE: Single frontal view of the chest.FINDINGS: Lungs and pleura: Clear lungs. No effusion. No pneumothorax.Heart and mediastinum: Normal heart size. Unremarkable mediastinalcontours.Osseous structures: No acute abnormality.Other: None.IMPRESSION:No acute intrathoracic abnormality.Electronically Signed By: Estrella Walters05/17/2023 11:01 CDTWorkstation Name: [id number] FLUID CULTURE + GRAM [id number] 10:43:33 Test Item Value Reference Interpretation Comments Range CULTURE (BEAKER) STAPHYLOCOCCUS A From Aero bic (test code = 1095) HOMINIS Bottle On ly Staphylococcus hominis Clindamycin (test S code = 10) Erythromycin (test R code = 4) Linezolid (test code S = 40) Nitrofurantoin (test S code = 23) Oxacillin (test code S = 14) Rifampin (test code = S 43) Tetracycline (test S code = 2) Trimethoprim + S Sulfamethoxazole (test code = 47) Vancomycin (test code S = 13) GRAM STAIN RESULT 3+ WBCs (BEAKER) (test code = 1123) GRAM STAIN RESULT No organisms seen (BEAKER) (test code = 633595) GRAM STAIN RESULT From aerobic (BEAKER) (test code = bottle only: gram 562193) positive cocci in clusters COMPREHENSIVE METABOLIC [id number] 09:50:07 Test Item Value Reference Range Interpretation Comments TOTAL PROTEIN 6.1 gm/dL 6.0-8.3 Specimen sligh tly (BEAKER) (test hemolyzed code = 770) ALBUMIN (BEAKER) 3.0 g/dL 3.5-5.0 L Specimen sl ightly (test code = 1145) hemolyzed ALKALINE 108 U/L 40-150 PHOSPHATASE (BEAKER) (test code = 346) BILIRUBIN TOTAL 1.1 mg/dL 0.2-1.2 Specimen sli ghtly (BEAKER) (test hemolyzed code = 377) SODIUM (BEAKER) 136 meq/L 136-145 (test code = 381) POTASSIUM (BEAKER) 4.4 meq/L 3.5-5.1 Specimen slightly (test code = 379) hemolyzed CHLORIDE (BEAKER) 106 meq/L 98-107 (test code = 382) CO2 (BEAKER) (test 20 meq/L 22-29 L code = 355) BLOOD UREA 16 mg/dL 7-21 NITROGEN (BEAKER) (test code = 354) CREATININE 1.34 mg/dL 0.57-1.25 H Specimen slight ly (BEAKER) (test hemolyzed code = 358) GLUCOSE RANDOM 98 mg/dL 70-105 (BEAKER) (test code = 652) CALCIUM (BEAKER) 7.7 mg/dL 8.4-10.2 L (test code = 697) AST (SGOT) 38 U/L 5-34 H Specimen slight ly (BEAKER) (test hemolyzed code = 353) ALT (SGPT) 29 U/L 6-55 Specimen slight ly (BEAKER) (test hemolyzed code = 347) EGFR (BEAKER) 46 Interpretatio n of eGFR [...] not appl icable for dialysis patien ts PROTHROMBIN TIME/[id number] 05:21:56 Test Item Value Reference Range Interpretation Comments PROTIME (BEAKER) 20.5 seconds 11.9-14.2 H (test code = 759) INR (BEAKER) (test 1.81 See_Comment [Automat ed message] code = 370) The system [employer] generated this result transmitted ref erence range: <=5.90. The reference range was not used to int erpret this result as normal/abnormal . RECOMMENDED COUMADIN/WARFARIN INR THERAPY RANGESSTANDARD DOSE: 2.0 - 3.0 Includes: PROPHYLAXIS for venous thrombosis, systemic embolization; TREATMENT for venous thrombosis and/or pulmonary embolus.HIGH RISK: Target INR is 2.5-3.5 for patients with mechanical heart valves.BODY FLUID CULTURE + GRAM STAIN 2023-05-16 15:13:08 Test Item Value Reference Range Interpretation Comments CULTURE (BEAKER) (test code = 1095) No growth COMPREHENSIVE METABOLIC [id number] 05:31:14 Test Item Value Reference Range Interpretation Comments TOTAL PROTEIN 5.6 gm/dL 6.0-8.3 L (BEAKER) (test code = 770) ALBUMIN (BEAKER) 2.8 g/dL 3.5-5.0 L (test code = 1145) ALKALINE 76 U/L 40-150 PHOSPHATASE (BEAKER) (test code = 346) BILIRUBIN TOTAL 1.2 mg/dL 0.2-1.2 (BEAKER) (test code = 377) SODIUM (BEAKER) 133 meq/L 136-145 L (test code = 381) POTASSIUM (BEAKER) 4.0 meq/L 3.5-5.1 (test code = 379) CHLORIDE (BEAKER) 108 meq/L 98-107 H (test code = 382) CO2 (BEAKER) (test 20 meq/L 22-29 L code = 355) BLOOD UREA 18 mg/dL 7-21 NITROGEN (BEAKER) (test code = 354) CREATININE 1.35 mg/dL 0.57-1.25 H (BEAKER) (test code = 358) GLUCOSE RANDOM 107 mg/dL 70-105 H (BEAKER) (test code = 652) CALCIUM (BEAKER) 7.9 mg/dL 8.4-10.2 L (test code = 697) AST (SGOT) 32 U/L 5-34 (BEAKER) (test code = 353) ALT (SGPT) 22 U/L 6-55 (BEAKER) (test code = 347) EGFR (BEAKER) 45 Interpretatio n of eGFR [...] not appl icable for dialysis patien ts Filler Shredding Machine Loader ID - [id number] 05:26:57 Test Item Value Reference Range Interpretation Comments PHOSPHORUS (BEAKER) (test code = 3.2 mg/dL 2.3-4.7 604) Filler Shredding Machine Loader ID - [id number] 05:26:56 Test Item Value Reference Range Interpretation Comments MAGNESIUM (BEAKER) (test code = 1.8 mg/dL 1.6-2.6 627) Filler Shredding Machine Loader ID - MIGUELOCBC W/PLT COUNT & AUTO [id number] 05:17:21 Test Item Value Reference Range Interpretation Comments WHITE BLOOD CELL COUNT (BEAKER) 4.8 K/ L 3.5-10.5 (test code = 775) RED BLOOD CELL COUNT (BEAKER) 3.03 M/ L 3.93-5.22 L (test code = 761) HEMOGLOBIN (BEAKER) (test code = 10.3 GM/DL 11.2-15.7 L 410) HEMATOCRIT (BEAKER) (test code = 31.5 % 34.1-44.9 L 411) MEAN CORPUSCULAR VOLUME (BEAKER) 104 fL 79-95 H (test code = 753) MEAN CORPUSCULAR HEMOGLOBIN 34.0 pg 25.6-32.2 H (BEAKER) (test code = 751) MEAN CORPUSCULAR HEMOGLOBIN CONC 32.7 GM/DL 32.2-35.5 (BEAKER) (test code = 752) RED CELL DISTRIBUTION WIDTH 14.2 % 11.7-14.4 (BEAKER) (test code = 412) PLATELET COUNT (BEAKER) (test code 59 K/CU MM 150-450 L = 756) MEAN PLATELET VOLUME (BEAKER) 10.6 fL 9.4-12.3 (test code = 754) NUCLEATED RED BLOOD CELLS (BEAKER) 0 /100 WBC 0-0 (test code = 413) NEUTROPHILS RELATIVE PERCENT 60 % (BEAKER) (test code = 429) LYMPHOCYTES RELATIVE PERCENT 16 % (BEAKER) (test code = 430) MONOCYTES RELATIVE PERCENT 17 % (BEAKER) (test code = 431) EOSINOPHILS RELATIVE PERCENT 6 % (BEAKER) (test code = 432) BASOPHILS RELATIVE PERCENT 1 % (BEAKER) (test code = 437) NEUTROPHILS ABSOLUTE COUNT 2.86 K/ L 1.56-6.13 (BEAKER) (test code = 670) LYMPHOCYTES ABSOLUTE COUNT 0.77 K/ L 1.18-3.74 L (BEAKER) (test code = 414) MONOCYTES ABSOLUTE COUNT (BEAKER) 0.83 K/ L 0.24-0.36 H (test code = 415) EOSINOPHILS ABSOLUTE COUNT 0.26 K/ L 0.04-0.36 (BEAKER) (test code = 416) BASOPHILS ABSOLUTE COUNT (BEAKER) 0.03 K/ L 0.01-0.08 (test code = 417) IMMATURE GRANULOCYTES-RELATIVE 0.40 % 0.00-1.00 PERCENT (BEAKER) (test code = 2801) PROTHROMBIN [id number] 05:16:13 Test Item Value Reference Range Interpretation Comments PROTIME (BEAKER) 21.0 seconds 11.9-14.2 H (test code = 759) INR (BEAKER) (test 1.94 See_Comment [Automat ed message] code = 370) The system The [employer] generated this result transmitted ref erence range: <=5.90. The reference range was not used to int erpret this result as normal/abnormal . RECOMMENDED COUMADIN/WARFARIN INR THERAPY RANGESSTANDARD DOSE: 2.0 - 3.0 Includes: PROPHYLAXIS for venous thrombosis, systemic embolization; TREATMENT for venous thrombosis and/or pulmonary embolus.HIGH RISK: Target INR is 2.5-3.5 for patients with mechanical heart valves.CALCIUM, [id number] 05:12:20 Test Item Value Reference Range Interpretation Comments CALCIUM IONIZED (BEAKER) (test 1.10 mmol/L 1.12-1.27 L code = 698) PH, BLOOD (BEAKER) (test code = 7.47 1810) [id number] 08:41:54 [facility] : 1965 Sex: FPROCEDURE: Ultrasound-guided paracentesisProcedural PersonnelPrimary Filler Shredding Machine Loader: Scott Alexandre physician(s): Hector Welch-shey diagnosis: AscitesPost-procedure diagnosis: UnchangedIndication: Ascites with pain or pressure symptomsAdditional clinical history: NoneComplications: No immediate complications.IMPRESSION:Ultrasound-guided paracentesis with drainage of 3000 mL of serous fluid.Plan: Resume care by clinical team. PROCEDURE SUMMARY:- Limited abdominal ultrasound- Ultrasound-guided paracentesis- Additional procedure(s): NonePROCEDURE DETAILS:Pre-procedureConsent: Informed consent for the procedure including risks, benefitsand alternatives was obtained and time-out was performed prior to theprocedure.Preparation: The site was prepared and draped using maximal sterilebarrier technique including cutaneous antisepsis.Anesthesia/sedationLevel of anesthesia/sedation: NoneInitial abdominal ultrasoundInitial abdominal ultrasound was performed.Findings: Moderate ascites. A safe window for paracentesis wasidentified.ParacentesisLocal anesthesia was administered. The peritoneal cavity was accessedand fluid return confirmed position. Ascites was drained. The catheterwas then removed, and a sterile bandage was applied.Paracentesis access technique: Real-time ultrasound guidance.Catheter placed: 5Fr YuehPost-drainage ultrasound: Minimal trace ascitesAdditional DetailsAdditional description of procedure: NoneEquipment d etails: NoneSpecimens removed: Abdominal fluidEstimated blood loss (mL): Minimal (<10cc)Standardized report: [email or web address]_v3AttestationSigner name: Deandre Goncalves attest that I was present for the entire procedure. I reviewed thestored images and agree with the report as written.Electronically Signed By: Deandre Retana05/15/2023 08:43 CDTWorkstation Name: [id number] THORACENTESIS 2023-05-15 08:40:21 [facility] : 1965 Sex: FPROCEDURE: Ultrasound-guided LEFT thoracentesisProcedural PersonnelPrimary Filler Shredding Machine Loader: Scott Calle physician(s): PARISH Welchre-procedure diagnosis: Pleural effusionPost-procedure diagnosis: SameIndication: Pleural effusion with compromised respirationAdditional clinical history: NoneComplications: No immediate complications.IMPRESSION:Ultrasound-guided thoracentesis with drainage of 1500 mL of serousfluid.Plan: Resume care by clinical team. PROCEDURE SUMMARY:- Limited thoracic ultrasound- Ultrasound-guided thoracentesis- Ad ditional procedure(s): NonePROCEDURE DETAILS:Pre-procedureConsent: Informed consent for the procedure including risks, benefitsand alternatives was obtained and time-out was performed prior to theprocedure.Preparation: The site was prepared and draped using maximal sterilebarrier technique including cutaneous antisepsis.Anesthesia/sedationLevel of anesthesia/sedation: No sedationAnesthesia/sedation administered by: Not applicableLimited thoracic ultrasoundLimited thoracic ultrasound was performed using a curved transducer. Asafe window for thoracentesis was identified. Left hemithorax findings: Mode rate pleural effusionRight hemithorax findings: Not investigatedThoracentesisLocal anesthesia was administered. The pleural space was accessed underreal-time ultrasound guidance and fluid return confirmed position. Thefluid was drained. The catheter was removed, and a sterile bandage wasapplied.Catheter placed: 4F YuehPost-drainage hemithorax findings: Not performedAdditional DetailsAdditional description of procedure: NoneEquipment details: NoneSpecimens removed: Pleural fluidEstimated blood loss (mL): Less than 10Standardized report: SIR_Thoracentesis_v3AttestationSigner name: Deandre Goncalves attest that I was present for the entire procedure. I reviewed thestored images and agree with the report aswritten.Electronically Signed By: Deandre Retana05/15/2023 08:42 CDTWorkstation Name: [id number] METABOLIC PANEL 2023-05-15 05:33:46 Test Item Value Reference Range Interpretation Comments TOTAL PROTEIN 5.5 gm/dL 6.0-8.3 L (BEAKER) (test code = 770) ALBUMIN (BEAKER) 2.9 g/dL 3.5-5.0 L (test code = 1145) ALKALINE 60 U/L 40-150 PHOSPHATASE (BEAKER) (test code = 346) BILIRUBIN TOTAL 1.5 mg/dL 0.2-1.2 H (BEAKER) (test code = 377) SODIUM (BEAKER) 138 meq/L 136-145 (test code = 381) POTASSIUM (BEAKER) 4.0 meq/L 3.5-5.1 (test code = 379) CHLORIDE (BEAKER) 110 meq/L 98-107 H (test code = 382) CO2 (BEAKER) (test 21 meq/L 22-29 L code = 355) BLOOD UREA 20 mg/dL 7-21 NITROGEN (BEAKER) (test code = 354) CREATININE 1.42 mg/dL 0.57-1.25 H (BEAKER) (test code = 358) GLUCOSE RANDOM 100 mg/dL 70-105 (BEAKER) (test code = 652) CALCIUM (BEAKER) 8.0 mg/dL 8.4-10.2 L (test code = 697) AST (SGOT) 38 U/L 5-34 H (BEAKER) (test code = 353) ALT (SGPT) 22 U/L 6-55 (BEAKER) (test code = 347) EGFR (BEAKER) 43 Interpretatio n of eGFR (test code = [...] not appl icable for dialysis patien ts Filler Shredding Machine Loader ID - STANLEY WPROTHROMBIN TIME/[id number] 05:13:59 Test Item Value Reference Range Interpretation Comments PROTIME (BEAKER) 21.1 seconds 11.9-14.2 H (test code = 759) INR (BEAKER) (test 1.95 See_Comment [Automat ed message] code = 370) The system The [employer] generated this result transmitted ref erence range: <=5.90. The reference range was not used to int erpret this result as normal/abnormal . RECOMMENDED COUMADIN/WARFARIN INR THERAPY RANGESSTANDARD DOSE: 2.0 - 3.0 Includes: PROPHYLAXIS for venous thrombosis, systemic embolization; TREATMENT for venous thrombosis and/or pulmonary embolus.HIGH RISK: Target INR is 2.5-3.5 for patients with mechanical heart valves.SODIUM, RANDOM [id number] 09:48:43 Test Item Value Reference Range Interpretation Comments SODIUM URINE (BEAKER) (test code = 21 meq/L 243) Reference Range: No NormalsOperator ID - ADMINCHLORIDE, RANDOM [id number] 09:46:07 Test Item Value Reference Range Interpretation Comments CHLORIDE URINE (BEAKER) (test code = < meq/L 20-330 L 682) Reference Range: No NormalsOperator ID - ADMINURINALYSIS W/ REFLEX URINE CULTURE 2023-05-14 08:42:28 Test Item Value Reference Range Interpretation Comments COLOR (BEAKER) (test code = 470) Yellow CLARITY (BEAKER) (test code = 469) Cloudy SPECIFIC GRAVITY UA (BEAKER) (test 1.033 1.001-1.035 code = 468) PH UA (BEAKER) (test code = 467) 6.0 5.0-8.0 PROTEIN UA (BEAKER) (test code = 20 mg/dL Negative A 464) GLUCOSE UA (BEAKER) [...] RBC UA (BEAKER) (test code = 519) 30 /HPF WBC UA (BEAKER) (test code = 520) 28 /HPF BACTERIA (BEAKER) (test code = Occasional 517) MUCUS (BEAKER) (test code = 1574) Occasional SQUAMOUS EPITHELIAL (BEAKER) (test 2 /HPF code = 516) HYALINE CASTS (BEAKER) (test code 1 /LPF = 514) CASTS (BEAKER) (test code = 1579) 1 /LPF YEAST (BEAKER) (test code = 1585) Occasional SOURCE(BEAKER) (test code = 2795) Filler Shredding Machine Loader ID - [auto]Filler Shredding Machine Loader ID - techHEPATIC FUNCTION [id number] 06:13:36 Test Item Value Reference Range Interpretation Comments TOTAL PROTEIN (BEAKER) 5.6 gm/dL 6.0-8.3 L Speci men slightly (test code = 770) hemolyzed ALBUMIN (BEAKER) (test 2.9 g/dL 3.5-5.0 L Speci men slightly code = 1145) hemolyzed BILIRUBIN TOTAL 2.0 mg/dL 0.2-1.2 H Specimen sli ghtly (BEAKER) (test code = hemoly zed 377) BILIRUBIN DIRECT 0.9 mg/dL 0.1-0.5 H Specimen sl ightly (BEAKER) (test code = hemoly zed 706) ALKALINE PHOSPHATASE 58 U/L 40-150 (BEAKER) (test code = 346) AST (SGOT) (BEAKER) 42 U/L 5-34 H Specimen slightly (test code = 353) hemolyzed ALT (SGPT) (BEAKER) 22 U/L 6-55 Specimen slightly (test code = 347) hemolyzed Filler Shredding Machine Loader ID - ADMINSpecimen slightly ictericBASIC METABOLIC [id number] 06:13:35 Test Item Value Reference Range Interpretation Comments SODIUM (BEAKER) 141 meq/L 136-145 (test code = 381) POTASSIUM 4.7 meq/L 3.5-5.1 Specimen slight ly (BEAKER) (test hemolyzed code = 379) CHLORIDE (BEAKER) 113 meq/L 98-107 H (test code = 382) CO2 (BEAKER) 22 meq/L 22-29 (test code = 355) BLOOD UREA 23 mg/dL 7-21 H NITROGEN (BEAKER) (test code = 354) CREATININE 1.24 mg/dL 0.57-1.25 Specimen slight ly (BEAKER) (test hemolyzed code = 358) GLUCOSE RANDOM 86 mg/dL 70-105 (BEAKER) (test code = 652) CALCIUM (BEAKER) 8.4 mg/dL 8.4-10.2 (test code = 697) EGFR (BEAKER) 50 Interpretatio n of eGFR (test code = [...] not appl icable for dialysis patien ts Filler Shredding Machine Loader ID - ADMINSpecimen slightly [id number] 06:13:34 Test Item Value Reference Range Interpretation Comments MAGNESIUM (BEAKER) 2.0 mg/dL 1.6-2.6 Specimen slightly (test code = 627) hemolyzed Filler Shredding Machine Loader ID - [id number] 06:13:34 Test Item Value Reference Range Interpretation Comments PHOSPHORUS (BEAKER) 3.7 mg/dL 2.3-4.7 Specimen slightly (test code = 604) hemolyzed Filler Shredding Machine Loader ID - ADMINPROTHROMBIN TIME/[id number] 06:03:52 Test Item Value Reference Range Interpretation Comments PROTIME (BEAKER) 19.7 seconds 11.9-14.2 H (test code = 759) INR (BEAKER) (test 1.72 See_Comment [Automat ed message] code = 370) The system The [employer] generated this result transmitted ref erence range: <=5.90. The reference range was not used to int erpret this result as normal/abnormal . RECOMMENDED COUMADIN/WARFARIN INR THERAPY RANGESSTANDARD DOSE: 2.0 - 3.0 Includes: PROPHYLAXIS for venous thrombosis, systemic embolization; TREATMENT for venous thrombosis and/or pulmonary embolus.HIGH RISK: Target INR is 2.5-3.5 for patients with mechanical heart valves.CBC (HEMOGRAM ONLY)2023-05-14 05:48:10 Test Item Value Reference Range Interpretation Comments WHITE BLOOD CELL COUNT (BEAKER) 3.7 K/ L 3.5-10.5 (test code = 775) RED BLOOD CELL COUNT (BEAKER) 2.96 M/ L 3.93-5.22 L (test code = 761) HEMOGLOBIN (BEAKER) (test code = 10.3 GM/DL 11.2-15.7 L 410) HEMATOCRIT (BEAKER) (test code = 30.6 % 34.1-44.9 L 411) MEAN CORPUSCULAR VOLUME (BEAKER) 103 fL 79-95 H (test code = 753) MEAN CORPUSCULAR HEMOGLOBIN 34.8 pg 25.6-32.2 H (BEAKER) (test code = 751) MEAN CORPUSCULAR HEMOGLOBIN CONC 33.7 GM/DL 32.2-35.5 (BEAKER) (test code = 752) RED CELL DISTRIBUTION WIDTH 14.6 % 11.7-14.4 H (BEAKER) (test code = 412) PLATELET COUNT (BEAKER) (test code 54 K/CU MM 150-450 L = 756) MEAN PLATELET VOLUME (BEAKER) 11.2 fL 9.4-12.3 (test code = 754) NUCLEATED RED BLOOD CELLS (BEAKER) 0 /100 WBC 0-0 (test code = 413) BODY FLUID CELL COUNT WITH [id number] 21:54:34 Test Item Value Reference Range Interpretation Comments APPEARANCE FLUID Turbid Clear A (BEAKER) (test code = 510) COLOR FLUID (BEAKER) Red Colorless, Straw A (test code = 511) RBC FLUID (BEAKER) 47185 /cu mm See_Comment H [Automat ed message] (test code = 513) The system which generated this result transmit joanna reference range : <=1. The refere nce range was not u sed to interpret th is result as normal/abnormal . TOTAL NUCLEATED CELL 532 /cu mm See_Comment H [Autom ated message] COUNT (BEAKER) (test The sys tem which code = 1442) generated this result transmit joanna reference range : <=5. The refere nce range was not u sed to interpret th is result as normal/abnormal . ADJUSTED WBC FLUID 532 /cu mm See_Comment H [Automat ed message] (BEAKER) (test code The syst em which = 0506) generated this result transmit joanna reference range : <=5. The refere nce range was not u sed to interpret th is result as normal/abnormal . LINING CELLS/OTHERS, 0 /cu mm See_Comment [Autom ated message] CALCULATED (BEAKER) The syst em which (test code = 1590) generated this result transmit joanna reference range : <=1. The refere nce range was not u sed to interpret th is result as normal/abnormal . NEUTROPHILS FLUID 8 % (BEAKER) (test code = 1656) LYMPHS FLUID 60 % (BEAKER) (test code = 488) MONO/MACROPHAGE 32 % FLUID (BEAKER) (test code = 489) EOSINOPHILS FLUID 0 % (BEAKER) (test code = 491) BASO FLUID (BEAKER) 0 % (test code = 492) CONTAINER BODY FLUID EDTA Tube (BEAKER) (test code = 2873) BODY FLUID CELL COUNT WITH [id number] 20:50:26 Test Item Value Reference Range Interpretation Comments APPEARANCE FLUID Turbid Clear A (BEAKER) (test code = 510) COLOR FLUID (BEAKER) Red Colorless, Straw A (test code = 511) RBC FLUID (BEAKER) 36694 /cu mm See_Comment H [Automat ed message] (test code = 513) The system which generated this result transmit joanna reference range : <=1. The refere nce range was not u sed to interpret th is result as normal/abnormal . TOTAL NUCLEATED CELL 837 /cu mm See_Comment H [Autom ated message] COUNT (BEAKER) (test The sys tem which code = 1442) generated this result transmit joanan reference range : <=5. The refere nce range was not u sed to interpret th is result as normal/abnormal . ADJUSTED WBC FLUID 837 /cu mm See_Comment H [Automat ed message] (BEAKER) (test code The syst em which = 7073) generated this result transmit joanna reference range : <=5. The refere nce range was not u sed to interpret th is result as normal/abnormal . LINING CELLS/OTHERS, 0 /cu mm See_Comment [Autom ated message] CALCULATED (BEAKER) The syst em which (test code = 1590) generated this result transmit joanna reference range : <=1. The refere nce range was not u sed to interpret th is result as normal/abnormal . NEUTROPHILS FLUID 7 % (BEAKER) (test code = 1656) LYMPHS FLUID 41 % (BEAKER) (test code = 488) MONO/MACROPHAGE 51 % FLUID (BEAKER) (test code = 489) EOSINOPHILS FLUID 1 % (BEAKER) (test code = 491) BASO FLUID (BEAKER) 0 % (test code = 492) CONTAINER BODY FLUID EDTA Tube (BEAKER) (test code = 2873) XR CHEST 1 VIEW PORTABLE / [id number] 18:23:54 [facility] : 1965 Sex: FAP portable chest x-ray.HISTORY: Follow-up chest x-ray post thoracentesis procedure on the left.COMPARISON: Previous chest x-ray earlier today at 12:15.FINDINGS: There are no signs of a pneumothorax. There is near completeresolution of the abnormal fluid in the left pleural space. The leftlung is clear.Theright lung is well- expanded and clear. The heart size is normal.Vascularity is normal.IMPRESSION:Minimal residual fluid in the pleural space on the left andno signs of complication.Electronically Signed By: Gurdeep Pascal05/13/2023 18:25 CDTWorkstation Name: [id number] DEHYDROGENASE (LDH)2023-05-13 15:31:27 Test Item Value Reference Range Interpretation Comments LACTATE DEHYDROGENASE (BEAKER) (test 235 U/L 125-220 H code = 635) Filler Shredding Machine Loader ID - ADMINSARS-COV2/INFLUENZA/RSV [id number] 14:50:54 Test Item Value Reference Range Interpretation Comments SARS-COV2/RT-PCR Negative Negative The SARS-Co V-2 target (test code = nucleic acids a re not 8342028) detected in thi s specimen. Negat krupa results do not preclude SARS-CoV-2 infe ction and should not be u sed as the sole basis for patient management deci sions. Negative result s must be combined with c linical observations, p atient history, and epidemiological information. A false negative result may occur if a specimen i s improperly juan josé ected, transported or handled. This SARS CoV-2 test is a rapid, real-ed e RT-PCR test intended f or the qualitative det ection of nucleic acid fr om SARS-CoV-2 in a nasopharyngeal swab specimen collec joanna from individuals eleazar pected [facility] COVID[facility]. INFLUENZA A RT-PCR Negative Negative The Flu A target nucleic (test code = acids are not d etected in 0659002) this specimen. INFLUENZA B RT-PCR Negative Negative The Flu B target nucleic (test code = acids are not d etected in 1816226) this specimen. RSV RT-PCR (test Negative Negative The RSV tar get nucleic code = 7705058) acids are no t detected in this specimen. The presence of SARS-CoV-2/FLU/RSV viral nucleic acids cannot rule out co- infections or disease caused by other viral or bacterial pathogens. As with any molecular test, mutations within the target regions of the Xpert Xpress SARS-CoV-2/Flu/RSV test could affect primer and/or probe binding resulting in failure to detect the presence of virus or the virus being detected less predictably. False negative results may occur if the virus is present at levels below the analytical limit of detection in thisspecimen.This Xpert Xpress SARS-CoV-2/Flu/RSV test is a rapid, real-time RT-PCR test intended for the qualitative detection of nucleic acid from Xpert Xpress SARS-CoV-2/Flu/RSV in a nasopharyngeal swabspecimen collected from individuals suspected of Xpert Xpress SARS-CoV-2/Flu/RSV by their healthcareprovider. Results from [facility] Xpert Xpress SARS-CoV-2/Flu/RSV test should be correlated with the clinical history, epidemiological data, and other data available to the clinician evaluating the patient. Viral nucleic acid may persist in vivo, independent of virus viability. Detection of analyte target(s)does not imply that the corresponding virus(es) are infectious or are the causative agents for clinical symptoms.This test has not been Food and Drug Administration (FDA) cleared or approved and has been authorized by FDA under an Emergency Use Authorization (EUA). This EUA will be effective until thedeclaration that circumstances exist justifying the authorization of the emergency use of in vitro diagnostic tests for detection and/or diagnosis of COVID-19 is terminated under Section 564(b)(2) of the Act or the EUA is revoked under Section 564(g) of the Act.Fact Sheet for Healthcare Providers:https ://www.[employer]/Documents/Xpert%20Xpress%20SARS%20CoV-2/Fact%20Sheets/302-390 2%52MRKY-KJW-8%20HEALTHCARE%20PROVIDERS%20FACT%20SHEET.pdfFact Sheet for Healthcare Patients:https://www.[employer]/Docum ents/Xpert%20Xpress%20SARS%20Cov-2/Fact%20Sheets/302-3801%19WNPO-DHR-2%20PATIENT %20FACT%20SHEET.pdfCT ABDOMEN/PELVIS WITH IV [id number] 13:23:48 [facility] : 1965 Sex: FCT ABDOMEN/PELVIS WITH IV CONTRASTHISTORY: Unlisted Reason for Examn/v, nbnb Unlisted Reason for Examn/v,nbnbComparison: CT of the abdomen and pelvis 04/04/2023TECHNIQUE: CT of the abdomen and pelvis WITH intravenous contrast. Theexamination was performed according to the departmentaldose-optimization program, which includes automated exposure control,adjustment of the mA and/or kV according to patient size and/or use ofiterative reconstruction technique. FINDINGS:Lower thorax: Moderate right and trace left pleural effusions withadjacent atelectasis Liver: Hepatic cirrhosis.Gallbladder and bile ducts: Mildly distended gallbladder. There is acommon bile duct stent with proximal loop in the gallbladder and distalloop in the duodenumSpleen: Enlarged measuring 18 cm in craniocaudal dimensionPancreas: UnremarkableAdrenals: UnremarkableKidneys and ureters: UnremarkableBowel: Unremarkable Bladder: Unremarkable Reproductive organs: Unremarkable Lymph nodes: UnremarkablePeritoneum: Moderate volume ascites. Mild diffuse inflammationthroughout the mesentery.Vessels: There are numerous varices in the perigastric and perisplenicregions. There is a recanalized umbilical vein.Abdominal wall: Diffuse body wall edema.Bones: Multilevel degenerative changes of the visible spine.IMPRESSION:1. Hepatic cirrhosis with sequelae of portal hypertension includingsplenomegaly, moderate volume ascites and numerous upper abdominalcollaterals. Liver protocol CT/MRI is recommended to evaluate forunderlying liver lesions.2. Common bile duct stent with proximal loop in the gallbladder anddistal loop in the common bile duct.3. Diffuse mesenteric inflammation, likely secondary to chronic liverdisease.4. Small right and moderateleft pleural effusions with adjacentatelectasis.Electronically Signed By: Carolyn Block05/13/2023 13:25 CDTWorkstation Name: [id number] CHEST 1 VIEW PORTABLE / [id number] 12:55:58 [facility] : 1965 Sex: FXR CHEST 1 VIEW PORTABLE / BEDSIDEINDICATION: EMESISCOMPARISON: 05/10/2023TECHNIQUE: Portable frontal view(s) of the chest. FINDINGS: Support Lines and Devices: Stable. Lungs and pleura: Small to moderate left pleural effusion. Nopneumothorax identified.Heart and mediastinum: Stable contours. Stable surgical changes.Additional findings: Mild to moderate spondylosis and facet arthropathyare present within the spine.IMPRESSION:1. Small to moderate left pleural effusion.2. Left retrocardiac opacity, representing singly or in combinationpneumonia, atelectasis, or pleural effusion.Electronically Signed By: Brian Gresham05/13/2023 12:58 CDTWorkstation Name: [id number] ACID, VENOUS 2023-05-13 12:55:37 Test Item Value Reference Range Interpretation Comments LACTATE BLOOD VENOUS 1.89 mmol/L 0.50-2.00 Specime n moderately (2) (BEAKER) (test hemolyzed code = 2872) Filler Shredding Machine Loader ID - ADMINLACTIC ACID, [id number] 11:54:07 Test Item Value Reference Range Interpretation Comments LACTATE BLOOD VENOUS 2.16 mmol/L 0.50-2.00 H Specime n slightly (2) (BEAKER) (test hemolyzed code = 2872) Filler Shredding Machine Loader ID - ADMINHIGH SENSITIVITY TROPONIN [id number] 11:41:40 Test Item Value Reference Range Interpretation Comments HIGH SENSITIVITY 5 pg/ml See_Comment [Automated message] TROPONIN I (test code = The system which [id number]) generated this result transmitted ref erence range: <=17. Th e reference range was not used to interpr et this result as normal/abnormal . Filler Shredding Machine Loader ID - ADMINThe AUTOMATIC LATHE SETTER STAT High Sensitivity Troponin-I results should be used in conjunction with other diagnostic information such as ECG, clinical observations and information, and patientsymptoms to aid in the diagnosis of ND. [id number] 11:35:55 Test Item Value Reference Range Interpretation Comments PARTIAL THROMBOPLASTIN TIME 29.6 seconds 22.5-36.0 (BEAKER) (test code = 760) PROTHROMBIN TIME/[id number] 11:35:17 Test Item Value Reference Range Interpretation Comments PROTIME (BEAKER) 19.0 seconds 11.9-14.2 H (test code = 759) INR (BEAKER) (test 1.71 See_Comment [Automat ed message] code = 370) The system The [employer] generated this result transmitted ref erence range: <=5.90. The reference range was not used to int erpret this result as normal/abnormal . RECOMMENDED COUMADIN/WARFARIN INR THERAPY RANGESSTANDARD DOSE: 2.0 - 3.0 Includes: PROPHYLAXIS for venous thrombosis, systemic embolization; TREATMENT for venous thrombosis and/or pulmonary embolus.HIGH RISK: Target INR is 2.5-3.5 for patients with mechanical heart valves.COMPREHENSIVE METABOLIC PANEL 2023-05-13 11:34:38 Test Item Value Reference Range Interpretation Comments TOTAL PROTEIN 6.4 gm/dL 6.0-8.3 (BEAKER) (test code = 770) ALBUMIN (BEAKER) 3.2 g/dL 3.5-5.0 L (test code = 1145) ALKALINE 91 U/L 40-150 PHOSPHATASE (BEAKER) (test code = 346) BILIRUBIN TOTAL 1.4 mg/dL 0.2-1.2 H (BEAKER) (test code = 377) SODIUM (BEAKER) 140 meq/L 136-145 (test code = 381) POTASSIUM (BEAKER) 4.8 meq/L 3.5-5.1 (test code = 379) CHLORIDE (BEAKER) 109 meq/L 98-107 H (test code = 382) CO2 (BEAKER) (test 22 meq/L 22-29 code = 355) BLOOD UREA 24 mg/dL 7-21 H NITROGEN (BEAKER) (test code = 354) CREATININE 1.46 mg/dL 0.57-1.25 H (BEAKER) (test code = 358) GLUCOSE RANDOM 115 mg/dL 70-105 H (BEAKER) (test code = 652) CALCIUM (BEAKER) 8.3 mg/dL 8.4-10.2 L (test code = 697) AST (SGOT) 41 U/L 5-34 H (BEAKER) (test code = 353) ALT (SGPT) 24 U/L 6-55 (BEAKER) (test code = 347) EGFR (BEAKER) 41 Interpretatio n of eGFR (test code = [...] not appl icable for dialysis patien ts Filler Shredding Machine Loader ID - [id number] 11:34:38 Test Item Value Reference Range Interpretation Comments LIPASE (BEAKER) (test code = 749) 50 U/L 8-78 Filler Shredding Machine Loader ID - ADMINCBC W/PLT COUNT & AUTO [id number] 11:17:30 Test Item Value Reference Range Interpretation Comments WHITE BLOOD CELL COUNT (BEAKER) 4.4 K/ L 3.5-10.5 (test code = 775) RED BLOOD CELL COUNT (BEAKER) 3.17 M/ L 3.93-5.22 L (test code = 761) HEMOGLOBIN (BEAKER) (test code = 11.0 GM/DL 11.2-15.7 L 410) HEMATOCRIT (BEAKER) (test code = 33.1 % 34.1-44.9 L 411) MEAN CORPUSCULAR VOLUME (BEAKER) 104 fL 79-95 H (test code = 753) MEAN CORPUSCULAR HEMOGLOBIN 34.7 pg 25.6-32.2 H (BEAKER) (test code = 751) MEAN CORPUSCULAR HEMOGLOBIN CONC 33.2 GM/DL 32.2-35.5 (BEAKER) (test code = 752) RED CELL DISTRIBUTION WIDTH 14.5 % 11.7-14.4 H (BEAKER) (test code = 412) PLATELET COUNT (BEAKER) (test code 65 K/CU MM 150-450 L = 756) MEAN PLATELET VOLUME (BEAKER) 11.1 fL 9.4-12.3 (test code = 754) NUCLEATED RED BLOOD CELLS (BEAKER) 0 /100 WBC 0-0 (test code = 413) NEUTROPHILS RELATIVE PERCENT 75 % (BEAKER) (test code = 429) LYMPHOCYTES RELATIVE PERCENT 10 % (BEAKER) (test code = 430) MONOCYTES RELATIVE PERCENT 13 % (BEAKER) (test code = 431) EOSINOPHILS RELATIVE PERCENT 1 % (BEAKER) (test code = 432) BASOPHILS RELATIVE PERCENT 1 % (BEAKER) (test code = 437) NEUTROPHILS ABSOLUTE COUNT 3.27 K/ L 1.56-6.13 (BEAKER) (test code = 670) LYMPHOCYTES ABSOLUTE COUNT 0.44 K/ L 1.18-3.74 L (BEAKER) (test code = 414) MONOCYTES ABSOLUTE COUNT (BEAKER) 0.57 K/ L 0.24-0.36 H (test code = 415) EOSINOPHILS ABSOLUTE COUNT 0.04 K/ L 0.04-0.36 (BEAKER) (test code = 416) BASOPHILS ABSOLUTE COUNT (BEAKER) 0.02 K/ L 0.01-0.08 (test code = 417) IMMATURE GRANULOCYTES-RELATIVE 0.20 % 0.00-1.00 PERCENT (BEAKER) (test code = 2801) BODY FLUID CULTURE + GRAM [id number] 16:37:21 Test Item Value Reference Range Interpretation Comments CULTURE (BEAKER) (test code = 1095) No growth BODY FLUID CULTURE + GRAM [id number] 16:36:21 Test Item Value Reference Range Interpretation Comments CULTURE (BEAKER) (test code = 1095) No growth US [id number] 08:19:44 [facility] : 1965 Sex: FUltrasound guided left thoracentesis.Clinical History: Left pleural effusion.Modality: Ultrasound.Sedation: None. Child Protection Specialist: Lupe Youngt: None. Estimated Blood Loss: 1ccSpecimen: 1200 cc of clear yellow fluid. Technique: Informed [...] area wasanesthetized with 2% lidocaine, a 4 F valved one- step catheter wasadvanced into the pleural space under ultrasound guidance. Aftercompletion of drainage, thecatheter was removed. There was no evidenceof immediate complication. Post procedure chest x-ray demonstrated nopneumothorax. IMPRESSION:Impression:Successful and uncomplicated ultrasound guided left th oracentesis.Electronically Signed By: Galen Lovett05/11/2023 08:21 CDTWorkstation Name: [id number] METABOLIC [id number] 03:59:37 Test Item Value Reference Range Interpretation Comments TOTAL PROTEIN 5.4 gm/dL 6.0-8.3 L (BEAKER) (test code = 770) ALBUMIN (BEAKER) 3.0 g/dL 3.5-5.0 L (test code = 1145) ALKALINE 63 U/L 40-150 PHOSPHATASE (BEAKER) (test code = 346) BILIRUBIN TOTAL 1.8 mg/dL 0.2-1.2 H (BEAKER) (test code = 377) SODIUM (BEAKER) 135 meq/L 136-145 L (test code = 381) POTASSIUM (BEAKER) 4.1 meq/L 3.5-5.1 (test code = 379) CHLORIDE (BEAKER) 108 meq/L 98-107 H (test code = 382) CO2 (BEAKER) (test 19 meq/L 22-29 L code = 355) BLOOD UREA 15 mg/dL 7-21 NITROGEN (BEAKER) (test code = 354) CREATININE 1.05 mg/dL 0.57-1.25 (BEAKER) (test code = 358) GLUCOSE RANDOM 114 mg/dL 70-105 H (BEAKER) (test code = 652) CALCIUM (BEAKER) 7.9 mg/dL 8.4-10.2 L (test code = 697) AST (SGOT) 29 U/L 5-34 (BEAKER) (test code = 353) ALT (SGPT) 15 U/L 6-55 (BEAKER) (test code = 347) EGFR (BEAKER) 61 Interpretatio n of eGFR (test code = [...] not appl icable for dialysis patien ts Filler Shredding Machine Loader ID - [id number] 03:50:56 Test Item Value Reference Range Interpretation Comments MAGNESIUM (BEAKER) (test code = 2.1 mg/dL 1.6-2.6 627) Filler Shredding Machine Loader ID - ADMINPROTHROMBIN TIME/[id number] 03:46:55 Test Item Value Reference Range Interpretation Comments PROTIME (BEAKER) 22.2 seconds 11.9-14.2 H (test code = 759) INR (BEAKER) (test 2.00 See_Comment [Automat ed message] code = 370) The system The [employer] generated this result transmitted ref erence range: <=5.90. The reference range was not used to int erpret this result as normal/abnormal . RECOMMENDED COUMADIN/WARFARIN INR THERAPY RANGESSTANDARD DOSE: 2.0 - 3.0 Includes: PROPHYLAXIS for venous thrombosis, systemic embolization; TREATMENT for venous thrombosis and/or pulmonary embolus.HIGH RISK: Target INR is 2.5-3.5 for patients with mechanical heart valves.CBC W/PLT COUNT & AUTO [id number] 03:34:57 Test Item Value Reference Range Interpretation Comments WHITE BLOOD CELL COUNT (BEAKER) 4.0 K/ L 3.5-10.5 (test code = 775) RED BLOOD CELL COUNT (BEAKER) 2.83 M/ L 3.93-5.22 L (test code = 761) HEMOGLOBIN (BEAKER) (test code = 9.9 GM/DL 11.2-15.7 L 410) HEMATOCRIT (BEAKER) (test code = 29.7 % 34.1-44.9 L 411) MEAN CORPUSCULAR VOLUME (BEAKER) 105 fL 79-95 H (test code = 753) MEAN CORPUSCULAR HEMOGLOBIN 35.0 pg 25.6-32.2 H (BEAKER) (test code = 751) MEAN CORPUSCULAR HEMOGLOBIN CONC 33.3 GM/DL 32.2-35.5 (BEAKER) (test code = 752) RED CELL DISTRIBUTION WIDTH 14.3 % 11.7-14.4 (BEAKER) (test code = 412) PLATELET COUNT (BEAKER) (test code 50 K/CU MM 150-450 L = 756) MEAN PLATELET VOLUME (BEAKER) 10.0 fL 9.4-12.3 (test code = 754) NUCLEATED RED BLOOD CELLS (BEAKER) 0 /100 WBC 0-0 (test code = 413) NEUTROPHILS RELATIVE PERCENT 58 % (BEAKER) (test code = 429) LYMPHOCYTES RELATIVE PERCENT 17 % (BEAKER) (test code = 430) MONOCYTES RELATIVE PERCENT 18 % (BEAKER) (test code = 431) EOSINOPHILS RELATIVE PERCENT 7 % (BEAKER) (test code = 432) BASOPHILS RELATIVE PERCENT 1 % (BEAKER) (test code = 437) NEUTROPHILS ABSOLUTE COUNT 2.33 K/ L 1.56-6.13 (BEAKER) (test code = 670) LYMPHOCYTES ABSOLUTE COUNT 0.68 K/ L 1.18-3.74 L (BEAKER) (test code = 414) MONOCYTES ABSOLUTE COUNT (BEAKER) 0.71 K/ L 0.24-0.36 H (test code = 415) EOSINOPHILS ABSOLUTE COUNT 0.26 K/ L 0.04-0.36 (BEAKER) (test code = 416) BASOPHILS ABSOLUTE COUNT (BEAKER) 0.02 K/ L 0.01-0.08 (test code = 417) IMMATURE GRANULOCYTES-RELATIVE 0.20 % 0.00-1.00 PERCENT (BEAKER) (test code = 2801) XR CHEST 1 VIEW PORTABLE / [id number] 17:21:29 [facility] : 1965 Sex: FAP portable chest x-ray.HISTORY: Status post left thoracentesis.COMPARISON: Prior chest x-ray May 10, 2023.FINDINGS: The pleural fluid that was present on the left has markedlydiminished with the minimalamount of opacity at the right lung basepresently.No pneumothorax is seen.There is tiny fluid collection in the right pleural space and mildatelectasis at the right lung base. The heart size is normalIMPRESSION:Marked interval improvement in the appearance of the leftlung with reexpansion and diminishment of pleural effusion.Electronically Signed By: Gurdeep Pascal05/10/2023 17:23 CDTWorkstation Name: [id number] 14:43:50 [facility] : 1965 Sex: F ADDENDUM #1 Ultrasound guided paracentesis.Clinical History: Ascites.Sedation: None. Child Protection Specialist: Lupe Youngt: None. Estimated Blood Loss: < 1 cc.Specimen: 4400 ccof cloudy lupe fluid, samples sent to laboratory.Technique: Informed consent was obtained. The risks of pain, bleeding,infection, bowel perforation, injury to adjacent structures, and adversemedication reactions were discussed with the patient. After informedconsent was obtained, the patient's abdomen was scanned. The rightupper quadrant of the abdomen was selected for paracentesis. After thelargestfluid pocket area was marked, and the anterior abdominal wallwas evaluated with color Doppler to exclude presence of blood vesselstraversing the area, the skin was prepped and draped in the usualsterile manner. After local anesthesia was achieved with 2% lidocaine,a 5 Italian one-step catheter was advanced into the peritoneal cavityunder ultrasound guidance. After completion of drainage, the catheterwas removed. There was no evidence of complication. ORIGINAL REPORT Ultrasound guided left thoracentesis.Clinical History: Left pleural effusion.Modality: Ultrasound.Sedation: None. Child Protection Specialist: Lupe Youngt: None. Estimated Blood Loss: 1ccSpecimen: 1200 cc of cloudy lupe fluid. Technique: Informed consent was obtained. [...] area wasanesthetized with 2% lidocaine, a 4 F valved one-step catheter wasadvanced into the pleural space under ultrasound guidance. Aftercompletion of drainage, the catheter was r emoved. There was no evidenceof immediate complication. Post procedure chest x- ray demonstrated nopneumothorax. IMPRESSION:Impression:Successful ultrasound guided paracentesis.Electronically Signed By:Deandre RetanaImpression:Successful and uncomplicated ultrasound guided left thoracentesis.Electronically Signed By: Deandre Retana05/10/2023 14:45 CDTWorkstation Name: [id number] FLUID CELL COUNT WITH [id number] 13:31:41 Test Item Value Reference Range Interpretation Comments APPEARANCE FLUID Purulent Clear A (BEAKER) (test code = 510) COLOR FLUID (BEAKER) [place] Colorless, Straw A (test code = 511) RBC FLUID (BEAKER) 80131 /cu mm See_Comment H [Automat ed message] (test code = 513) The system which generated this result transmit joanna reference range : <=1. The refere nce range was not u sed to interpret th is result as normal/abnormal . TOTAL NUCLEATED CELL 529 /cu mm See_Comment H [Autom ated message] COUNT (BEAKER) (test The sys tem which code = 1442) generated this result transmit joanna reference range : <=5. The refere nce range was not u sed to interpret th is result as normal/abnormal . ADJUSTED WBC FLUID 499 /cu mm See_Comment H [Automat ed message] (BEAKER) (test code The syst em which = 1691) generated this result transmit joanna reference range : <=5. The refere nce range was not u sed to interpret th is result as normal/abnormal . LINING CELLS/OTHERS, 30 /cu mm See_Comment H [Autom ated message] CALCULATED (BEAKER) The syst em which (test code = 1590) generated this result transmit joanna reference range : <=1. The refere nce range was not u sed to interpret th is result as normal/abnormal . NEUTROPHILS FLUID 14 % (BEAKER) (test code = 1656) LYMPHS FLUID 29 % (BEAKER) (test code = 488) MONO/MACROPHAGE 57 % FLUID (BEAKER) (test code = 489) EOSINOPHILS FLUID 0 % (BEAKER) (test code = 491) BASO FLUID (BEAKER) 0 % (test code = 492) CONTAINER BODY FLUID Sterile Vial (BEAKER) (test code = 2873) BODY FLUID CELL COUNT WITH [id number] 13:29:43 Test Item Value Reference Range Interpretation Comments APPEARANCE FLUID Cloudy Clear A (BEAKER) (test code = 510) COLOR FLUID (BEAKER) [place] Colorless, Straw A (test code = 511) RBC FLUID (BEAKER) 91754 /cu mm See_Comment H [Automat ed message] (test code = 513) The system which generated this result transmit joanna reference range : <=1. The refere nce range was not u sed to interpret th is result as normal/abnormal . TOTAL NUCLEATED CELL 1253 /cu mm See_Comment H [Autom ated message] COUNT (BEAKER) (test The sys tem which code = 1442) generated this result transmit joanna reference range : <=5. The refere nce range was not u sed to interpret th is result as normal/abnormal . ADJUSTED WBC FLUID 1182 /cu mm See_Comment H [Automat ed message] (BEAKER) (test code The syst em which = 1691) generated this result transmit joanna reference range : <=5. The refere nce range was not u sed to interpret th is result as normal/abnormal . LINING CELLS/OTHERS, 71 /cu mm See_Comment H [Autom ated message] CALCULATED (BEAKER) The syst em which (test code = 1590) generated this result transmit joanna reference range : <=1. The refere nce range was not u sed to interpret th is result as normal/abnormal . NEUTROPHILS FLUID 20 % (BEAKER) (test code = 1656) LYMPHS FLUID 43 % (BEAKER) (test code = 488) MONO/MACROPHAGE 36 % FLUID (BEAKER) (test code = 489) EOSINOPHILS FLUID 1 % (BEAKER) (test code = 491) BASO FLUID (BEAKER) 0 % (test code = 492) CONTAINER BODY FLUID Sterile Vial (BEAKER) (test code = 2873) US [id number] 08:44:37 [facility] : 1965 Sex: FUltrasound guided left thoracentesis.Clinical History: Left pleural effusion.Modality: Ultrasound.Sedation: None. Child Protection Specialist: Lupe Corralistant: None. Estimated Blood Loss: 1ccSpecimen: 1900 cc of chylous fluid. Technique: Informed consent was obtained. The [...] area wasanesthetized with 2% lidocaine, a 4 F valved one- step catheter wasadvanced into the pleural space under ultrasound guidance. Aftercompletion of drainage, the catheter was removed. There was no evidenceof immediate complication. Post procedure chest x-ray demonstrated nopneumothorax. IMPRESSION:Impression:Successful and uncomplicated ultrasound guided left thoracentesis.Electronically Signed By: Mikael Darnell05/10/2023 08:46 CDTWorkstation Name: [id number] CHEST FOR PULMONARY [id number] 06:33:25 [facility] : 1965 Sex: FTECHNIQUE: CTA of the chest WITH intravenous contrast. Axial MIP imageswere provided to better assess thevasculature. Coronal and sagittal MPRimages were performed. Dose modulation, iterative reconstruction, and/orweight-based adjustment of the mA/kV was utilized to reduce theradiation dose to as low as reasonably achievable.INDICATION: PE suspected, intermediate prob, positive D-dimerleft pleural effusion, s/p thoracentesis today. now SOB.COMPARISON: CT chest 01/20/2023.FINDINGS: LINES/TUBES: None.PULMONARY ARTERIES: Proximal to the bifurcation of the main pulmonaryartery, the main pulmonary artery is 2.2 cm in diameter. No fillingdefects within the pulmonary arteries to suggest pulmonary embolus.HEART AND MEDIASTINUM: The visualized thyroid gland is normal. Nosignificant mediastinal, hilar, or axillary lymphadenopathy. The heartand pericardium are within normal limits.PLEURA: Moderate to large sizeleft pleural effusion, slightly decreasedin size compared to the prior examination. Small right pleural effusion,slightly increased.LUNGS AND AIRWAYS: Compressive atelectatic changes within both lowerlobes, left greater than right. 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 Biliary stent ispresent.IMPRESSION:1. No evidence for acute pulmonary thromboembolic disease. No thoracicaortic aneurysm or dissection.2. Moderate to large size left pleural effusion, slightly decreased insize compared to the prior examination. Small right pleural effusion,slightly increased. No pneumothorax.3. Nonspecific with a continuation of the pulmonary parenchyma which maybe related to with inflammatory changes oredema, similar to the priorexamination.4. 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 Moderate to large alignment of abdominal pelvic ascitessimilar to the prior examination.Electronically Signed By: Adilia Polanco05/10/2023 06:35 CDTWorkstation Name: [id number] GAS, VENOUS 2023-05-10 06:19:52 Test Item Value Reference Range Interpretation Comments PH VENOUS (BEAKER) (test code = 7.43 7.32-7.42 H 701) PCO2 VENOUS (BEAKER) (test code = 37 mm Hg 41-51 L 755) PO2 VENOUS (BEAKER) (test code = 47 mm Hg 25-40 H 702) O2 SATURATION VENOUS (BEAKER) 84.1 % 40.0-70.0 H (test code = 703) HCO3 VENOUS (BEAKER) (test code = 24 mmol/L -29 705) BASE EXCESS VENOUS (BEAKER) (test -0.1 mmol/L -2.0-3.0 code = 704) PATIENT TEMPERATURE (BEAKER) 37.0 (test code = 1818) FIO2 (BEAKER) (test code = 1819) 21.0 XR CHEST 2 [id number] 05:28:50 [facility] : 1965 Sex: FEXAM/TECHNIQUE: Single view frontal radiograph of the chest.INDICATION: SHORTNESS OF BREATHABDOMINAL PAINPOST-OP PROBLEMCOMPARISON: 05/09/23FINDINGS: Devices/Objects: None.Lungs: Small left pleural effusion.No visible pneumothorax.Heart/Mediastinum: No cardiomegaly. No interstitial thickening.Osseous: No acute osseous process. No suspicious osseous lesion.Upper abdomen: Unremarkable.IMPRESSION:Small left pleural effusion. No visible pneumothorax.Electronically Signed By: Umer Barahona05/10/2023 05:31 CDT Workstation Name: [id number] SENSITIVITY TROPONIN [id number] 04:15:18 Test Item Value Reference Range Interpretation Comments HIGH SENSITIVITY 36 pg/ml See_Comment H [Automated message] TROPONIN I (test code = The system which [id number]) generated this result transmitted ref erence range: <=17. Th e reference range was not used to int erpret this result as normal/abnormal . Filler Shredding Machine Loader ID - ADMINThe AUTOMATIC LATHE SETTER STAT High Sensitivity Troponin-I results should be used in conjunction with other diagnostic information such as ECG, clinical observations and information, and patientsymptoms to aid in the diagnosis of ND. SARS-COV2/INFLUENZA/RSV [id number] 04:12:44 Test Item Value Reference Range Interpretation Comments SARS-COV2/RT-PCR Negative Negative The SARS-Co V-2 target (test code = nucleic acids a re not 9351594) detected in thi s specimen. Negat krupa results do not preclude SARS-CoV-2 infe ction and should not be u sed as the sole basis for patient management deci sions. Negative result s must be combined with c linical observations, p atient history, and epidemiological information. A false negative result may occur if a specimen i s improperly juan josé ected, transported or handled. This SARS CoV-2 test is a rapid, real-ed e RT-PCR test intended f or the qualitative det ection of nucleic acid fr om SARS-CoV-2 in a nasopharyngeal swab specimen collec joanna from individuals eleazar pected of COVID-19 by the [facility]. INFLUENZA A RT-PCR Negative Negative The Flu A target nucleic (test code = acids are not d etected in 0705347) this specimen. INFLUENZA B RT-PCR Negative Negative The Flu B target nucleic (test code = acids are not d etected in 7350466) this specimen. RSV RT-PCR (test Negative Negative The RSV tar get nucleic code = 4962235) acids are no t detected in this specimen. The presence of SARS-CoV-2/FLU/RSV viral nucleic acids cannot rule out co- infections or disease caused by other viral or bacterial pathogens. As with any molecular test, mutations within the target regions of the Xpert Xpress SARS-CoV-2/Flu/RSV test could affect primer and/or probe binding resulting in failure to detect the presence of virus or the virus being detected less predictably. False negative results may occur if the virus is present at levels below the analytical limit of detection in thisspecimen.This Xpert Xpress SARS-CoV-2/Flu/RSV test is a rapid, real-time RT-PCR test intended for the qualitative detection of nucleic acid from Xpert Xpress SARS-CoV-2/Flu/RSV in a nasopharyngeal swabspecimen collected from individuals suspected of Xpert Xpress SARS-CoV-2/Flu/RSV by their healthcareprovider. Results from [facility] Xpert Xpress SARS-CoV-2/Flu/RSV test should be correlated with the clinical history, epidemiological data, and other data available to the clinician evaluating the patient. Viral nucleic acid may persist in vivo, independent of virus viability. Detection of analyte target(s)does not imply that the corresponding virus(es) are infectious or are the causative agents for clinical symptoms.This test has not been Food and Drug Administration (FDA) cleared or approved and has been authorized by FDA under an Emergency Use Authorization (EUA). This EUA will be effective until thedeclaration that circumstances exist justifying the authorization of the emergency use of in vitro diagnostic tests for detection and/or diagnosis of COVID-19 is terminated under Section 564(b)(2) of the Act or the EUA is revoked under Section 564(g) of the Act.Fact Sheet for Healthcare Providers:https ://www.[employer]/Documents/Xpert%20Xpress%20SARS%20CoV-2/Fact%20Sheets/302-390 2%26ZMUD-QTW-0%20HEALTHCARE%20PROVIDERS%20FACT%20SHEET.pdfFact Sheet for Healthcare Patients:https://www.[employer]/Docum ents/Xpert%20Xpress%20SARS%20Cov-2/Fact%20Sheets/[id number]%45EXTN-DJX-6%20PATIENT %20FACT%20SHEET.mbzU-[id number] 04:07:35 Test Item Value Reference Range Interpretation Comments D-DIMER QUANTITATIVE (BEAKER) 7.03 MG/L FEU <0.50 H (test code = 671) Intended Use: The D-Dimer Assay can be used to aid in the diagnosis of Deep Vein Thrombosis (DVT) and Pulmonary Embolism Disease (PED).In patients with low pre- test probability, various studies concerning STA Liatest D-dimer test have reported that with a cutoff value of 0.50 MG/L FEU, the Negative Predictive Value (NPV) regarding the exclusion of thrombosis is within 95-100% range.HIGH SENSITIVITY TROPONIN [id number] 02:57:41 Test Item Value Reference Range Interpretation Comments HIGH SENSITIVITY 41 pg/ml See_Comment H [Automated message] TROPONIN I (test code = The system which [id number]) generated this result transmitted ref erence range: <=17. Th e reference range was not used to int erpret this result as normal/abnormal . Filler Shredding Machine Loader ID - ADMINThe AUTOMATIC LATHE SETTER STAT High Sensitivity Troponin-I results should be used in conjunction with other diagnostic information such as ECG, clinical observations and information, and patientsymptoms to aid in the diagnosis of ND. B-TYPE NATRIURETIC FACTOR (BNP)2023-05-10 02:46:59 Test Item Value Reference Range Interpretation Comments B-TYPE NATRIURETIC PEPTIDE (BEAKER) 70 pg/mL 0-100 (test code = 700) Filler Shredding Machine Loader ID - [id number] 02:41:34 Test Item Value Reference Range Interpretation Comments LIPASE (BEAKER) (test code = 749) 73 U/L 8-78 Filler Shredding Machine Loader ID - ADMINSpecimen slightly ictericBASIC METABOLIC [id number] 02:41:29 Test Item Value Reference Range Interpretation Comments SODIUM (BEAKER) 134 meq/L 136-145 L (test code = 381) POTASSIUM 4.0 meq/L 3.5-5.1 (BEAKER) (test code = 379) CHLORIDE (BEAKER) 106 meq/L 98-107 (test code = 382) CO2 (BEAKER) 18 meq/L 22-29 L (test code = 355) BLOOD UREA 17 mg/dL 7-21 NITROGEN (BEAKER) (test code = 354) CREATININE 1.11 mg/dL 0.57-1.25 (BEAKER) (test code = 358) GLUCOSE RANDOM 121 mg/dL 70-105 H (BEAKER) (test code = 652) CALCIUM (BEAKER) 8.2 mg/dL 8.4-10.2 L (test code = 697) EGFR (BEAKER) 57 Interpretati on of eGFR (test code = [...] not appl icable for dialysis patien ts Filler Shredding Machine Loader ID - ADMINSpecimen slightly ictericPT/[id number] 02:34:11 Test Item Value Reference Range Interpretation Comments PROTIME (BEAKER) (test 20.1 seconds 11.9-14.2 H code = 759) INR (BEAKER) (test 1.83 See_Comment [Automat ed code = 370) message] The sy stem which generated this result transmitted reference range : <=5.90. The reference range was not used to interpret this result as normal/abnormal . PARTIAL THROMBOPLASTIN 30.4 seconds 22.5-36.0 TIME (BEAKER) (test code = 760) RECOMMENDED COUMADIN/WARFARIN INR THERAPY RANGESSTANDARD DOSE: 2.0 - 3.0 Includes: PROPHYLAXIS for venous thrombosis, systemic embolization; TREATMENT for venous thrombosis and/or pulmonary embolus.HIGH RISK: Target INR is 2.5-3.5 for patients with mechanical heart valves.CBC W/PLT COUNT & AUTO [id number] 02:26:29 Test Item Value Reference Range Interpretation Comments WHITE BLOOD CELL COUNT (BEAKER) 5.2 K/ L 3.5-10.5 (test code = 775) RED BLOOD CELL COUNT (BEAKER) 3.26 M/ L 3.93-5.22 L (test code = 761) HEMOGLOBIN (BEAKER) (test code = 11.4 GM/DL 11.2-15.7 410) HEMATOCRIT (BEAKER) (test code = 34.2 % 34.1-44.9 411) MEAN CORPUSCULAR VOLUME (BEAKER) 105 fL 79-95 H (test code = 753) MEAN CORPUSCULAR HEMOGLOBIN 35.0 pg 25.6-32.2 H (BEAKER) (test code = 751) MEAN CORPUSCULAR HEMOGLOBIN CONC 33.3 GM/DL 32.2-35.5 (BEAKER) (test code = 752) RED CELL DISTRIBUTION WIDTH 14.4 % 11.7-14.4 (BEAKER) (test code = 412) PLATELET COUNT (BEAKER) (test code 62 K/CU MM 150-450 L = 756) MEAN PLATELET VOLUME (BEAKER) 10.2 fL 9.4-12.3 (test code = 754) NUCLEATED RED BLOOD CELLS (BEAKER) 0 /100 WBC 0-0 (test code = 413) NEUTROPHILS RELATIVE PERCENT 65 % (BEAKER) (test code = 429) LYMPHOCYTES RELATIVE PERCENT 15 % (BEAKER) (test code = 430) MONOCYTES RELATIVE PERCENT 15 % (BEAKER) (test code = 431) EOSINOPHILS RELATIVE PERCENT 5 % (BEAKER) (test code = 432) BASOPHILS RELATIVE PERCENT 0 % (BEAKER) (test code = 437) NEUTROPHILS ABSOLUTE COUNT 3.40 K/ L 1.56-6.13 (BEAKER) (test code = 670) LYMPHOCYTES ABSOLUTE COUNT 0.78 K/ L 1.18-3.74 L (BEAKER) (test code = 414) MONOCYTES ABSOLUTE COUNT (BEAKER) 0.76 K/ L 0.24-0.36 H (test code = 415) EOSINOPHILS ABSOLUTE COUNT 0.27 K/ L 0.04-0.36 (BEAKER) (test code = 416) BASOPHILS ABSOLUTE COUNT (BEAKER) 0.02 K/ L 0.01-0.08 (test code = 417) IMMATURE GRANULOCYTES-RELATIVE 0.20 % 0.00-1.00 PERCENT (BEAKER) (test code = 2801) URINALYSIS [id number] 02:25:17 Test Item Value Reference Range Interpretation Comments RBC UA (BEAKER) (test code = 519) 15 /HPF WBC UA (BEAKER) (test code = 520) 6 /HPF BACTERIA (BEAKER) (test code = Many 517) MUCUS (BEAKER) (test code = 1574) Occasional SQUAMOUS EPITHELIAL (BEAKER) (test 1 /HPF code = 516) Filler Shredding Machine Loader ID - techURINALYSIS WITH MICROSCOPIC IF [id number] 01:56:33 Test Item Value Reference Range Interpretation Comments COLOR (BEAKER) (test code = 470) Yellow CLARITY (BEAKER) (test code = 469) Clear SPECIFIC GRAVITY UA (BEAKER) (test 1.029 1.001-1.035 code = 468) PH UA (BEAKER) (test code = 467) 6.0 5.0-8.0 PROTEIN UA (BEAKER) (test code = 30 mg/dL Negative A 464) GLUCOSE UA (BEAKER) (test code = Negative Negative 365) KETONES UA (BEAKER) (test code = Negative Negative 371) BILIRUBIN UA (BEAKER) (test code = Negative Negative 462) BLOOD UA (BEAKER) (test code = 461) Large Negative A NITRITE UA (BEAKER) (test code = Negative Negative 465) LEUKOCYTE ESTERASE UA (BEAKER) (test Negative Negative code = 466) UROBILINOGEN UA (BEAKER) (test code 0.2 0.2-1.0 = 463) SOURCE(BEAKER) (test code = 2795) Filler Shredding Machine Loader ID - [auto][id number] 13:34:41 Test Item Value Reference Range Interpretation Comments ACTIVATED CLOTTING TIME 149 sec : 74 -137 seconds, (BEAKER) (test code = Esdrasi ne: TESTED AT [address]) [facility] [address] [place], [address]: Filler Shredding Machine Loader/Techni shavon ID = [id number] for CO NROD ELFEGO (V), [place] BODY FLUID CELL COUNT WITH [id number] 12:47:39 Test Item Value Reference Range Interpretation Comments APPEARANCE FLUID Cloudy Clear A (BEAKER) (test code = 510) COLOR FLUID (BEAKER) Other Colorless, Straw A phuc mon (test code = 511) RBC FLUID (BEAKER) 06310 /cu mm See_Comment H [Automat ed message] (test code = 513) The system which generated this result transmit joanna reference range : <=1. The refere nce range was not u sed to interpret th is result as normal/abnormal . TOTAL NUCLEATED CELL 704 /cu mm See_Comment H [Autom ated message] COUNT (BEAKER) (test The sys tem which code = 1442) generated this result transmit joanna reference range : <=5. The refere nce range was not u sed to interpret th is result as normal/abnormal . ADJUSTED WBC FLUID 677 /cu mm See_Comment H [Automat ed message] (BEAKER) (test code The syst em which = 1691) generated this result transmit joanna reference range : <=5. The refere nce range was not u sed to interpret th is result as normal/abnormal . LINING CELLS/OTHERS, 27 /cu mm See_Comment H [Autom ated message] CALCULATED (BEAKER) The syst em which (test code = 1590) generated this result transmit joanna reference range : <=1. The refere nce range was not u sed to interpret th is result as normal/abnormal . NEUTROPHILS FLUID 4 % (BEAKER) (test code = 1656) LYMPHS FLUID 66 % (BEAKER) (test code = 488) MONO/MACROPHAGE 30 % FLUID (BEAKER) (test code = 489) EOSINOPHILS FLUID 0 % (BEAKER) (test code = 491) BASO FLUID (BEAKER) 0 % (test code = 492) CONTAINER BODY FLUID Sterile Vial (BEAKER) (test code = 2873) XR CHEST 1 VIEW PORTABLE / [id number] 10:01:38 [facility] : 1965 Sex: FEXAMINATION: XR CHEST 1 VIEW PORTABLE / BEDSIDE INDICATION: s/p left thoracentesisCOMPARISON: May 06, 2023 FINDINGS:LINES/TUBES: None LUNGS: The lungs are well inflated. No focal airspace consolidation.PLEURA: No pleural effusion or pneumothorax.MEDIASTINUM: The cardiomediastinal silhouette appears normal in size andshape.BONES/SOFT TISSUES: No acute osseous injury.ABDOMEN: No free air under the diaphragm.IMPRESSION:No focal pneumonia or airspace edema.Electronically Signed By: Alexandro Alberto05/09/2023 10:03 CDTWorkstation Name: [id number] METABOLIC [id number] 09:06:30 Test Item Value Reference Range Interpretation Comments SODIUM (BEAKER) 137 meq/L 136-145 (test code = 381) POTASSIUM 3.6 meq/L 3.5-5.1 (BEAKER) (test code = 379) CHLORIDE (BEAKER) 107 meq/L 98-107 (test code = 382) CO2 (BEAKER) 22 meq/L 22-29 (test code = 355) BLOOD UREA 20 mg/dL 7-21 NITROGEN (BEAKER) (test code = 354) CREATININE 1.33 mg/dL 0.57-1.25 H (BEAKER) (test code = 358) GLUCOSE RANDOM 110 mg/dL 70-105 H (BEAKER) (test code = 652) CALCIUM (BEAKER) 7.9 mg/dL 8.4-10.2 L (test code = 697) EGFR (BEAKER) 46 Interpretatio n of eGFR [...] not appl icable for dialysis patien ts Filler Shredding Machine Loader ID - MARCOPROTHROMBIN TIME/[id number] 08:31:43 Test Item Value Reference Range Interpretation Comments PROTIME (BEAKER) 18.8 seconds 11.9-14.2 H (test code = 759) INR (BEAKER) (test 1.62 See_Comment [Automat ed message] code = 370) The system The [employer] generated this result transmitted ref erence range: <=5.90. The reference range was not used to int erpret this result as normal/abnormal . RECOMMENDED COUMADIN/WARFARIN INR THERAPY RANGESSTANDARD DOSE: 2.0 - 3.0 Includes: PROPHYLAXIS for venous thrombosis, systemic embolization; TREATMENT for venous thrombosis and/or pulmonary embolus.HIGH RISK: Target INR is 2.5-3.5 for patients with mechanical heart valves.CBC (HEMOGRAM ONLY)2023-05-09 08:20:17 Test Item Value Reference Range Interpretation Comments WHITE BLOOD CELL COUNT (BEAKER) 5.4 K/ L 3.5-10.5 (test code = 775) RED BLOOD CELL COUNT (BEAKER) 3.31 M/ L 3.93-5.22 L (test code = [...] code = 752) RED CELL DISTRIBUTION WIDTH 14.3 % 11.7-14.4 (BEAKER) (test code = 412) PLATELET COUNT (BEAKER) (test code 66 K/CU MM 150-450 L = 756) MEAN PLATELET VOLUME (BEAKER) 10.6 fL 9.4-12.3 (test code = 754) NUCLEATED RED BLOOD CELLS (BEAKER) 0 /100 WBC 0-0 (test code = 413) [id number] 16:48:00 [facility] : 1965 Sex: FUltrasound guided paracentesis.Clinical History: Ascites.Sedation: None. Child Protection Specialist: Ellis Lylesistant: None. Estimated Blood Loss: < 1 cc.Specimen: 5300 cc of serosanguineous fluid, samples sent to laboratory.Technique: Informed consent was obtained. The risks of pain, bleeding,infection, bowel perforation, injury to adjacent structures, and adversemedication reactions were discussedwith the patient. After informedconsent was obtained, the patient's abdomen was scanned. The rightupper quadrant of the abdomen was selected for paracentesis. After thelargest fluid pocket area was marked, and the anterior abdominal wallwas evaluated with color Doppler to exclude presence of blood vesselstraversing the area, the skin was prepped and draped in the usualsterile manner. After local anesthesia was achieved with 2% lidocaine,a 5 Italian one-step catheter was advanced into the peritoneal cavityunder ultrasound guidance. After completion of drainage, the catheterwas removed. There was no evidence of complication.IMPRESSION:Impression:Successful ultrasound guided paracentesis.Electronically Signed By: Dipak Szymanski05/06/2023 16:50 CDTWorkstation Name: [id number] 16:47:55 [facility] : 1965 Sex: FUltrasound guided left thoracentesis.Clinical History: Left pleural effusion.Modality: Ultrasound.Sedation: None. Child Protection Specialist: Ellis Lylesistant: None. Estimated Blood Loss: 1ccSpecimen: [...] area wasanesthetized with 2% lidocaine, a 4 Italian one-step catheter wasadvanced into the pleural space under ultrasound guidance. Aftercompletion of drainage, the catheter was removed. There was no evidenceof immediate complication. Post procedure chest x-ray demonstrated nopneumothorax. IMPRESSION:Impression:Successful and uncomplicated ultrasound guided left t horacentesis.Electronically Signed By: Dipak Szymanski05/06/2023 16:49 CDTWorkstation Name: [id number] W/ [id number] 16:11:06 Test Item Value Reference Range Interpretation Comments COLOR (BEAKER) (test code Yellow = 470) CLARITY (BEAKER) (test Cloudy code = 469) SPECIFIC GRAVITY UA 1.019 1.001-1.035 (BEAKER) (test code = 468) PH UA (BEAKER) (test code 5.5 5.0-8.0 = 467) PROTEIN UA (BEAKER) (test 20 mg/dL Negative A code = 464) GLUCOSE [...] = 463) RBC UA (BEAKER) (test code 10 /HPF = 519) WBC UA (BEAKER) (test code 4 /HPF = 520) BACTERIA (BEAKER) (test Many code = 517) MUCUS (BEAKER) (test code Occasional = 1574) SQUAMOUS EPITHELIAL 3 /HPF (BEAKER) (test code = 516) YEAST (BEAKER) (test code Occasional = 1585) SOURCE(BEAKER) (test code Urine, Clean Catch = 2795) Filler Shredding Machine Loader ID - [auto]Filler Shredding Machine Loader ID - techBODY FLUID CELL COUNT WITH DIFFERENTIAL 2023-05-06 15:51:55 Test Item Value Reference Range Interpretation Comments APPEARANCE FLUID Cloudy Clear A (BEAKER) (test code = 510) COLOR FLUID (BEAKER) [place] Colorless, Straw A (test code = 511) RBC FLUID (BEAKER) 09658 /cu mm See_Comment H [Automat ed message] (test code = 513) The system which generated this result transmit joanna reference range : <=1. The refere nce range was not u sed to interpret th is result as normal/abnormal . TOTAL NUCLEATED CELL 715 /cu mm See_Comment H [Autom ated message] COUNT (BEAKER) (test The sys tem which code = 1442) generated this result transmit joanna reference range : <=5. The refere nce range was not u sed to interpret th is result as normal/abnormal . ADJUSTED WBC FLUID 701 /cu mm See_Comment H [Automat ed message] (BEAKER) (test code The syst em which = 4947) generated this result transmit joanna reference range : <=5. The refere nce range was not u sed to interpret th is result as normal/abnormal . LINING CELLS/OTHERS, 14 /cu mm See_Comment H [Autom ated message] CALCULATED (BEAKER) The syst em which (test code = 1590) generated this result transmit joanna reference range : <=1. The refere nce range was not u sed to interpret th is result as normal/abnormal . NEUTROPHILS FLUID 2 % (BEAKER) (test code = 1656) LYMPHS FLUID 53 % (BEAKER) (test code = 488) MONO/MACROPHAGE 45 % FLUID (BEAKER) (test code = 489) EOSINOPHILS FLUID 0 % (BEAKER) (test code = 491) BASO FLUID (BEAKER) 0 % (test code = 492) CONTAINER BODY FLUID EDTA Tube (BEAKER) (test code = 2873) BODY FLUID CELL COUNT WITH [id number] 15:31:24 Test Item Value Reference Range Interpretation Comments APPEARANCE FLUID Cloudy Clear A (BEAKER) (test code = 510) COLOR FLUID (BEAKER) [place] Colorless, Straw A (test code = 511) RBC FLUID (BEAKER) 65360 /cu mm See_Comment H [Automat ed message] (test code = 513) The system which generated this result transmit joanna reference range : <=1. The refere nce range was not u sed to interpret th is result as normal/abnormal . TOTAL NUCLEATED CELL 531 /cu mm See_Comment H [Autom ated message] COUNT (BEAKER) (test The sys tem which code = 1442) generated this result transmit joanna reference range : <=5. The refere nce range was not u sed to interpret th is result as normal/abnormal . ADJUSTED WBC FLUID 511 /cu mm See_Comment H [Automat ed message] (BEAKER) (test code The syst em which = 4881) generated this result transmit joanna reference range : <=5. The refere nce range was not u sed to interpret th is result as normal/abnormal . LINING CELLS/OTHERS, 20 /cu mm See_Comment H [Autom ated message] CALCULATED (BEAKER) The syst em which (test code = 1590) generated this result transmit joanna reference range : <=1. The refere nce range was not u sed to interpret th is result as normal/abnormal . NEUTROPHILS FLUID 5 % (BEAKER) (test code = 1656) LYMPHS FLUID 86 % (BEAKER) (test code = 488) MONO/MACROPHAGE 9 % FLUID (BEAKER) (test code = 489) EOSINOPHILS FLUID 0 % (BEAKER) (test code = 491) BASO FLUID (BEAKER) 0 % (test code = 492) CONTAINER BODY FLUID Sterile Vial (BEAKER) (test code = 2873) LIPEMICXR CHEST 1 VIEW PORTABLE / [id number] 14:46:25 [facility] : 1965 Sex: FExam: XR CHEST 1 VIEW PORTABLE / BEDSIDEDate: 05/06/2023 2:44 PMIndication:s/p thoracentesisComparison: 05/02/2023FINDINGS:Lines/Tubes/Devices: NoneLungs/pleura:Lungs are well inflated. Left base hazy. Trace b ilateraleffusions. No pneumothorax.Heart/Mediastinum:The cardiomediastinal silhouette is normal in size andcontour.Bones/Soft Tissues: Degenerative changes seen throughout the visualizedspine.Upper abdomen: Unremarkable.IMPRESSION:Left base haziness may represent atelectasis, edema and/or earlypneumonia/pneumonitis in the appropriate clinical settingTrace bilateral effusions.No pneumothorax. Electronically Signed By: Mikael Darnell05/06/2023 14:48 CDTWorkstation Name: [id number] 11:44:29 Test Item Value Reference Range Interpretation Comments POC-CREATININ 1.3 mg/dL 0.6-1.3 : TESTED AT [facility] [address] [place], [address]: (test code = Filler Shredding Machine Loader/Techni shavon ID = [id number]) [id number] for Host Cris Armendariz POC-EGFR 47 Interpretation of eGFR ([facility]) mL/min/1.73M2 Values Stage D escription (test code = Result G1 [place] l or high 1860) >=90 G2 Mildly decreased 60-89 G3a Mildl y to moderately 45-5 9 G3b Moderately to s michelle 30-44 G4 Severely dec reased 15-29 G5 Kidney Failu re <15Reported eGF R is based on the CKD-EPI 202 1 equation that does not u se a race coefficientEsti mated GFR is not as accurate as Creatinine Carol moiz in predicting glom erular filtration rate . Estimated GFR is not appl icable for dialysis patien [facility] [id number] 17:20:29 [facility] : 1965 Sex: FUltrasound guided left-sided thoracentesis.Clinical History: Left pleural effusion.Modality: Ultrasound.Sedation: None. Child Protection Specialist: Ellis Lylesistant: None. Estimated Blood Loss: 1ccSpecimen: 1700 cc of cloudy lupe fluid. Technique: Informed consent was obtained. [...] area wasanesthetized with 2% lidocaine, a 4 Italian one-step catheter wasadvanced into the pleural space under ultrasound guidance. Aftercompletion of drainage,the catheter was removed. There was no evidenceof immediate complication. Post procedure chest x-raydemonstrated nopneumothorax. IMPRESSION:Impression:Successful and uncomplicated ultrasound guided left-sided thoracentesis.Electronically Signed By: Chano Enriquez05/02/2023 17:22 CDTWorkstation Name: [id number] FLUID CELL COUNT WITH [id number] 11:52:49 Test Item Value Reference Range Interpretation Comments APPEARANCE FLUID Bloody Clear A (BEAKER) (test code = 510) COLOR FLUID [place] Colorless, Straw A (BEAKER) (test code = 511) RBC FLUID (BEAKER) 11889 /cu mm See_Comment H [Automat ed (test code = 513) message] T he system which generated this result transmit joanna reference range : <=1. The refere nce range was not u sed to interpret th is result as normal/abnormal . TOTAL NUCLEATED 801 /cu mm See_Comment H [Automated CELL COUNT (BEAKER) message] The (test code = 1442) system wh [facility] generated this result transmit joanna reference range : <=5. The refere nce range was not u sed to interpret th is result as normal/abnormal . ADJUSTED WBC FLUID 801 /cu mm See_Comment H [Automat ed (BEAKER) (test code message] The = 1691) system which generated this result transmit joanna reference range : <=5. The refere nce range was not u sed to interpret th is result as normal/abnormal . LINING 0 /cu mm See_Comment [Automated CELLS/OTHERS, message] The CALCULATED (BEAKER) system w [facility] (test code = 1590) generated this result transmit joanna reference range : <=1. The refere nce range was not u sed to interpret th is result as normal/abnormal . NEUTROPHILS FLUID 0 % (BEAKER) (test code = 1656) LYMPHS FLUID 56 % (BEAKER) (test code = 488) MONO/MACROPHAGE 44 % FLUID (BEAKER) (test code = 489) EOSINOPHILS FLUID 0 % (BEAKER) (test code = 491) BASO FLUID (BEAKER) 0 % (test code = 492) CONTAINER BODY Sterile Container FLUID (BEAKER) (test code = 2873) XR CHEST 1 VIEW PORTABLE / [id number] 11:00:46 [facility] : 1965 Sex: FEXAMINATION: XR CHEST 1 VIEW PORTABLE / BEDSIDE INDICATION: s/p thoracentesisCOMPARISON: CXR 04/29/2023 FINDINGS:LINES/TUBES: None LUNGS: The lungs are well inflated. No focal airspace consolidation.PLEURA: No pleural effusion or pneumothorax.MEDIASTINUM: The cardiomediastinal silhouette appears normal in si ze andshape.BONES/SOFT TISSUES: No acute osseous injury.ABDOMEN: No free air under the diaphragm.IMPRESSION:Status post left thoracentesis. No postprocedure pneumothorax.Electronically Signed By: Ken Sauer05/02/2023 11:02 CDTWorkstation Name: [id number] 09:23:26 [facility] : 1965 Sex: FUltrasound guided left-sided thoracentesis.Clinical History: Left pleural effusion.Modality: Ultrasound.Sedation: None. Child Protection Specialist: Ellis Lylesistant: None. Estimated Blood Loss: 1ccSpecimen: [...] area wasanesthetized with 2% lidocaine, a 4 Italian one-step catheter wasadvanced into the pleural space under ultrasound guidance. Aftercompletion of drainage, the catheter was removed. There was no evidenceof immediate complication. Post procedure chest x-ray demonstrated nopneumothorax. IMPRESSION:Impression:Successful and uncomplicated ultrasound guidedleft-sided thoracentesis.Electronically Signed By: Chano Enriquez05/02/2023 09:25 CDTWorkstation Name: [id number] FLUID CELL COUNT WITH [id number] 14:29:09 Test Item Value Reference Range Interpretation Comments APPEARANCE FLUID Bloody Clear A (BEAKER) (test code = 510) COLOR FLUID [place] Colorless, Straw A (BEAKER) (test code = 511) RBC FLUID (BEAKER) 59538 /cu mm See_Comment H [Automat ed (test code = 513) message] T he system which generated this result transmit joanna reference range : <=1. The refere nce range was not u sed to interpret th is result as normal/abnormal . TOTAL NUCLEATED 658 /cu mm See_Comment H [Automated CELL COUNT (BEAKER) message] The (test code = 1442) system wh [facility] generated this result transmit joanna reference range : <=5. The refere nce range was not u sed to interpret th is result as normal/abnormal . ADJUSTED WBC FLUID 658 /cu mm See_Comment H [Automat ed (BEAKER) (test code message] The = 1691) system which generated this result transmit joanna reference range : <=5. The refere nce range was not u sed to interpret th is result as normal/abnormal . LINING 0 /cu mm See_Comment [Automated CELLS/OTHERS, message] The CALCULATED (BEAKER) system w tarih (test code = 1590) generated this result transmit joanna reference range : <=1. The refere nce range was not u sed to interpret th is result as normal/abnormal . NEUTROPHILS FLUID 1 % (BEAKER) (test code = 1656) LYMPHS FLUID 74 % (BEAKER) (test code = 488) MONO/MACROPHAGE 25 % FLUID (BEAKER) (test code = 489) EOSINOPHILS FLUID 0 % (BEAKER) (test code = 491) BASO FLUID (BEAKER) 0 % (test code = 492) CONTAINER BODY Sterile Container FLUID (BEAKER) (test code = 2873) [id number] 13:34:38 [facility] : 1965 Sex: FUltrasound guided left thoracentesis.Clinical History: Left pleural effusion.Modality: Ultrasound.Sedation: None. Child Protection Specialist: Danuta Youngt: None. Estimated Blood Loss: 1ccSpecimen: 2450 cc of cloudy serosanguineous fluid. Technique: Informed [...] uncomplicated ultrasound guided left thoracentesis.Electronically Signed By: Lee Diaz04/29/2023 13:36 CDTWorkstation Name: [id number] CHEST 1 VIEW PORTABLE / [id number] 12:16:25[facility] EVER : 1965 Sex: FCLINICAL HISTORY: s/p left thoraTECHNIQUE: 1 view of the chestCOMPARISON: 04/25/2023IMPRESSION:No pneumothorax. There are no focal infiltrates or pleural effusions.The cardiomediastinal silhouette is within normal limits for size. Thevisualized bones are intact.Electronically Signed By: Antwan Flor04/29/2023 12:18 CDTWorkstation Name: [id number] MYOCARDIAL PERFUSION SPECT, [id number] 12:04:56[facility] MARIAA PAREDESJassi CURTIS : 1965 Sex: FPROCEDURE: MYOCARDIAL PERFUSION SPECT IMAGING (2-Day Stress/Rest)CPT CODE: [id number]: Preoperative risk stratification prior to livertransplantationCARDIOVASCULAR PROFILE: CAD History: None Symptoms: Dyspnea Risk Factors: Hypertension BMI: 35.4 Medications: Spironolactone, torsemideSTRESS PROTOCOL: Pharmacologic stress was achieved with a 10-second intravenousinfusion of regadenoson 0.4 mg. The radiopharmaceutical was liqmmunefzsb20 seconds after the start of the regadenoson infusion.IMAGING PROTOCOL: 30.3 mCi of Tc-99m sestamibi was injected intravenously at peakstress, and gated SPECT images were obtained. Then on a separate day,32.8 mCi of Tc-99m sestamibi was injected intravenously at rest, an dnon-gated SPECT images were obtained.REST FINDINGS: HR: 83/min BP: 126/70 mmHg Prelim. EKG: Normal sinus rhythm. Perfusion: Normal. STRESS FINDINGS: HR: 95/min (59% of MPHR) BP: 132/60 mmHg Prelim. EKG: No ischemic changes. Symptoms: Chest discomfort (treatment not required). Perfusion: Small size mild intensity defect within the mid aspectof inferolateral wall. Wall Motion: Normal (LVEF >70%). LV Volume: Normal. RV Volume: Normal.IMPRESSION:1. Abnormal study.2. Abnormal myocardial perfusion. Small size, mild intensity,reversible defect within the mid segment of inferolateral wall.3. Normal LVEF after pharmacologic stress.4. Normal extracardiac tracer distribution.5. There is no prior study for comparison.Electronically Signed By: Marcos Muller04/27/2023 12:07 CDTWorkstation Name: [id number] 16:01:20 [facility] : 1965 Sex: FUltrasound guided left thoracentesis.Clinical History: Left pleural effusion.Modality: Ultrasound.Sedation: None. Child Protection Specialist: Danuta Corralistant: None. Estimated Blood Loss: 1ccSpecimen: 2100 cc of serosanguineous fluid. Technique: Informed consent [...] pneumothorax. IMPRESSION:Impression:Successful and uncomplicated ultrasound guided left thorac entesis.Electronically Signed By: Ken Sauer04/25/2023 16:03 CDTWorkstation Name: [id number] FLUID CELL COUNT WITH [id number] 14:01:40 Test Item Value Reference Range Interpretation Comments APPEARANCE FLUID Turbid Clear A (BEAKER) (test code = 510) COLOR FLUID (BEAKER) Brown Colorless, Straw A (test code = 511) RBC FLUID (BEAKER) 60741 /cu mm See_Comment H [Automat ed message] (test code = 513) The system which generated this result transmit joanna reference range : <=1. The refere nce range was not u sed to interpret th is result as normal/abnormal . TOTAL NUCLEATED CELL 783 /cu mm See_Comment H [Autom ated message] COUNT (BEAKER) (test The s tem which code = 1442) generated this result transmit joanna reference range : <=5. The refere nce range was not u sed to interpret th is result as normal/abnormal . ADJUSTED WBC FLUID 760 /cu mm See_Comment H [Automat ed message] (BEAKER) (test code The syst em which = 2662) generated this result transmit joanna reference range : <=5. The refere nce range was not u sed to interpret th is result as normal/abnormal . LINING CELLS/OTHERS, 23 /cu mm See_Comment H [Autom ated message] CALCULATED (BEAKER) The syst em which (test code = 1590) generated this result transmit joanna reference range : <=1. The refere nce range was not u sed to interpret th is result as normal/abnormal . NEUTROPHILS FLUID 5 % (BEAKER) (test code = 1656) LYMPHS FLUID 79 % (BEAKER) (test code = 488) MONO/MACROPHAGE 16 % FLUID (BEAKER) (test code = 489) EOSINOPHILS FLUID 0 % (BEAKER) (test code = 491) BASO FLUID (BEAKER) 0 % (test code = 492) CONTAINER BODY FLUID Sterile Vial (BEAKER) (test code = 2873) XR CHEST 1 VIEW PORTABLE / [id number] 11:23:22 [facility] : 1965 Sex: FCLINICAL HISTORY: s/p left thora TECHNIQUE: 1 view of the chest.COMPARISON: 04/22/2023IMPRESSION:No pneumothorax. No infiltrates or effusions. No cardiomegaly.Electronically Signed By: Antwan Flor:25 CDTWorkstation Name: [id number] FLUID CELL COUNT WITH [id number] 17:21:04 Test Item Value Reference Range Interpretation Comments APPEARANCE FLUID Cloudy Clear A (BEAKER) (test code = 510) COLOR FLUID (BEAKER) [place] Colorless, Straw A (test code = 511) RBC FLUID (BEAKER) 200 /cu mm See_Comment H [Automat ed message] (test code = 513) The system which generated this result transmitted ref erence range: <=1. The reference range was not used to int erpret this result as normal/abnormal . TOTAL NUCLEATED CELL 52 /cu mm See_Comment H [Autom ated message] COUNT (BEAKER) (test The sys tem which code = 1442) generated this result transmitted ref erence range: <=5. The reference range was not used to int erpret this result as normal/abnormal . ADJUSTED WBC FLUID 52 /cu mm See_Comment H [Automat ed message] (BEAKER) (test code = The sy stem which 1691) generated this result transmitted ref erence range: <=5. The reference range was not used to int erpret this result as normal/abnormal . LINING CELLS/OTHERS, 0 /cu mm See_Comment [Autom ated message] CALCULATED (BEAKER) The syst em which (test code = 1590) generated this result transmitted ref erence range: <=1. The reference range was not used to int erpret this result as normal/abnormal . NEUTROPHILS FLUID 1 % (BEAKER) (test code = 1656) LYMPHS FLUID (BEAKER) 69 % (test code = 488) MONO/MACROPHAGE FLUID 30 % (BEAKER) (test code = 489) EOSINOPHILS FLUID 0 % (BEAKER) (test code = 491) BASO FLUID (BEAKER) 0 % (test code = 492) CONTAINER BODY FLUID EDTA Tube (BEAKER) (test code = 2873) 1:20 manual dilutionUS [id number] 16:50:37 [facility] : 1965 Sex: FUltrasound guided left sided thoracentesis.Clinical History: Left pleural effusion.Modality: Ultrasound.Sedation: None. Child Protection Specialist: Lida Munoz: None. Estimated Blood Loss: 1ccSpecimen: 2450 cc of cloudy serosanguineous fluid. Technique: Informed [...] wasanesthetized with 2% lidocaine, a 4F one-step c atheter was advanced intothe pleural space under ultrasound guidance. After completion ofdrainage, the catheter was removed. There was no evidence of immediatecomplication. Post procedure chest x-ray demonstrated no pneumothorax. IMPRESSION:Impression:Successful and uncomplicated ultrasound guided left-sided thoracentesis.Electronically Signed By: Deandre Retana04/22/2023 16:52 CDTWorkstation Name: [id number] 16:50:37 [facility] EVER : 1965 Sex: FUltrasound guided paracentesis.Clinical History: Ascites.Sedation: None. Child Protection Specialist: Hannah Munozt: None. Estimated Blood Loss: < 1 cc.Specimen: 4500 cc of cloudy serosanguineous fluid, samples sent tolaboratory.Technique: Informed consent was obtained. The risks of pain, bleeding,infection, bowel perforation, injury to adjacent structures, and adversemedication reactions were discussed with the patient. After informedconsent was obtained, the patient's abdomen was scanned. The rightupper quadrant of the abdomen was selected for paracentesis. After thelargest fluid pocket area was marked, and the anterior abdominal wallwas evaluated with color Doppler to exclude presence of blood ves selstraversing the area, the skin was prepped and draped in the usualsterile manner. After local anesthesia was achieved with 2% lidocaine,a 5 Italian one- step catheter was advanced into the peritoneal cavityunder ultrasound guidance. After completion of drainage, the catheterwas removed. There was no evidence of complication.IMPRESSION:Impression:Successful ultrasound guided paracentesis.Electronically Signed By: Deandre Retana04/22/2023 16:52 CDTWorkstation Name: [id number] CHEST 1 VIEW PORTABLE / [id number] 15:06:10 [facility] : 1965 Sex: FINDICATION: s/p left thoracentesisCOMPARISON: 04/18/2023TECHNIQUE: Single frontal view of the chest.FINDINGS: Lines, tubes, and devices: None.Lungs and pleura: Clear lungs. No pneumothorax.Heart and mediastinum: Normal heart size. Unremarkable mediastinalcontours.Osseous structures: No acute abnormality. Mild spondylosis and facetarthropathy are present within the spine.Other: None.IMPRESSION:No pneumothorax identified.Electronically Signed By: Brian Gresham04/22/2023 15:08 CDTWorkstation Name: [id number] FLUID CELL COUNT WITH [id number] 14:11:50 Test Item Value Reference Range Interpretation Comments APPEARANCE FLUID Turbid Clear A (BEAKER) (test code = 510) COLOR FLUID (BEAKER) Red Colorless, Straw A (test code = 511) RBC FLUID (BEAKER) 34380 /cu mm See_Comment H [Automat ed message] (test code = 513) The system which generated this result transmit joanna reference range : <=1. The refere nce range was not u sed to interpret th is result as normal/abnormal . TOTAL NUCLEATED CELL 597 /cu mm See_Comment H [Autom ated message] COUNT (BEAKER) (test The sys tem which code = 1442) generated this result transmit joanna reference range : <=5. The refere nce range was not u sed to interpret th is result as normal/abnormal . ADJUSTED WBC FLUID 597 /cu mm See_Comment H [Automat ed message] (BEAKER) (test code The syst em which = 1691) generated this result transmit joanna reference range : <=5. The refere nce range was not u sed to interpret th is result as normal/abnormal . LINING CELLS/OTHERS, 0 /cu mm See_Comment [Autom ated message] CALCULATED (BEAKER) The syst em which (test code = 1590) generated this result transmit joanna reference range : <=1. The refere nce range was not u sed to interpret th is result as normal/abnormal . NEUTROPHILS FLUID 24 % (BEAKER) (test code = 1656) LYMPHS FLUID 68 % (BEAKER) (test code = 488) MONO/MACROPHAGE 8 % FLUID (BEAKER) (test code = 489) EOSINOPHILS FLUID 0 % (BEAKER) (test code = 491) BASO FLUID (BEAKER) 0 % (test code = 492) CONTAINER BODY FLUID EDTA Tube (BEAKER) (test code = 2873) [id number] 12:02:19 Test Item Value Reference Range Interpretation Comments POC-CREATININ 1.4 mg/dL 0.6-1.3 H : TESTED AT [facility] [address] (BEAKER) [facility], [place], [address]: (test code = Filler Shredding Machine Loader/Techni shavon ID = [id number]) [id number] for Fall er, [place] POC-EGFR 43 Interpretation of eGFR (BEAKER) mL/min/1.73M2 Values Stage Description (test code = Result G1 [place] l or high 1860) >=90 G2 Mildly decreased 60-89 G3a Mildl y to moderately 45-5 9 G3b Moderately to s michelle 30-44 G4 Severely dec reased 15-29 G5 Kidney Failu re <15Reported eGF R is based on the CKD-EPI 202 1 equation that does not u se a race coefficientEsti mated GFR is not as accurate as Creatinine Carol moiz in predicting glom erular filtration rate . Estimated GFR is not appl icable for dialysis patien [facility] [id number] 17:12:11 [facility] : 1965 Sex: FUltrasound guided left-sided thoracentesis.Clinical History: Left pleural effusion.Modality: Ultrasound.Sedation: None. Child Protection Specialist: Ellis Lylesistant: None. Estimated Blood Loss: 1ccSpecimen: [...] area wasanesthetized with 2% lidocaine, a 4 Italian one-step catheter wasadvanced into the pleural space under ultrasound guidance. Aftercompletion of drainage, the catheter was removed. There was no evidenceof immediate complication. Post procedure chest x-ray demonstrated nopneumothorax. IMPRESSION:Impression:Successful and uncomplicated ultrasound guidedleft sided thoracentesis.Electronically Signed By: Mikael Darnell04/18/2023 17:14 CDTWorkstation Name: [id number] FUNCTION [id number] 17:07:40 Test Item Value Reference Range Interpretation Comments TOTAL PROTEIN (BEAKER) 6.7 gm/dL 6.0-8.3 Speci men slightly (test code = 770) hemolyzed ALBUMIN (BEAKER) (test 2.9 g/dL 3.5-5.0 L Speci men slightly code = 1145) hemolyzed BILIRUBIN TOTAL 1.6 mg/dL 0.2-1.2 H Specimen sli ghtly (BEAKER) (test code = hemoly zed 377) BILIRUBIN DIRECT 0.6 mg/dL 0.1-0.5 H Specimen sl ightly (BEAKER) (test code = hemoly zed 706) ALKALINE PHOSPHATASE 83 U/L 40-150 (BEAKER) (test code = 346) AST (SGOT) (BEAKER) 57 U/L 5-34 H Specimen slightly (test code = 353) hemolyzed ALT (SGPT) (BEAKER) 26 U/L 6-55 Specimen slightly (test code = 347) hemolyzed Filler Shredding Machine Loader ID - AAHAMIDSpecimen slightly ictericXR CHEST 1 VIEW PORTABLE / BEDSIDE 2023-04-18 16:09:37 [facility] : 1965 Sex: [...] Signed By: Adilia Polanco04/18/2023 16:11 CDTWorkstation Name: [id number] CHEST 1 VIEW PORTABLE / [id number] 10:43:57[facility] : 1965 Sex: [...] Signed By: Brian Gresham04/18/2023 10:46 CDTWorkstation Name: [id number] METABOLIC [id number] 10:31:06 Test Item Value Reference Range Interpretation [...] not appl icable for dialysis patien ts Filler Shredding Machine Loader ID - AAHAMIDPROTHROMBIN TIME/[id number] 10:26:19 Test Item Value Reference Range Interpretation Comments PROTIME (BEAKER) 18.8 seconds 11.9-14.2 H (test code = 759) INR (BEAKER) (test 1.68 See_Comment [Automat ed message] code = 370) The system The [employer] generated this result transmitted ref erence range: <=5.90. The reference range was not used to int erpret this result as normal/abnormal . RECOMMENDED COUMADIN/WARFARIN INR THERAPY RANGESSTANDARD DOSE: 2.0 - 3.0 Includes: PROPHYLAXIS for venous thrombosis, systemic embolization; TREATMENT for venous thrombosis and/or pulmonary embolus.HIGH RISK: Target INR is 2.5-3.5 for patients with mechanical heart valves.CBC W/PLT COUNT & AUTO [id number] 10:19:31 Test Item Value Reference Range Interpretation [...] 417) IMMATURE GRANULOCYTES-RELATIVE 0.40 % 0.00-1.00 PERCENT (DANNY) (test code = 2801) [id number] 17:38:57 Test Item Value Reference Range Interpretation Comments CREATININE 1.33 mg/dL 0.57-1.25 H (DANNY) (test code = 358) EGFR (DANNY) 46 Interpretati on of eGFR (test code = [...] not appl icable for dialysis patien ts Filler Shredding Machine Loader ID - ADMINSARS-COV2/RT-PCR ([facility])2023-04-16 16:56:23 Test Item Value Reference Range Interpretation Comments SARS-COV2/RT-PCR Negative Negative The SARS-Co V-2 target (test code = nucleic acids a re not [id number]) detected in thi s specimen. Negative result [...] revoked sooner. Fact Sheet for Healthcare Providers: https://www.[employer]/Documents/Xpert%20Xpress%20SARS%20CoV-2/Fact%20Sheets/302-3802%96NYYV-TMV-0%20 HEALTHCARE%20PROVIDERS%20FACT%20SHEET.pdf Fact Sheet for Healthcare Patients: https://www.[employer]/Documents/Xpert%20Xp ress%20SARS%20CoV-2/Fact%20Sheets/302-3801%42PSQD-RPA-2%20PATIENT%20FACT%20SHEET .pdfCOMPREHENSIVE METABOLIC [id number] 15:37:16 Test Item Value Reference Range Interpretation [...] not appl icable for dialysis patien ts Filler Shredding Machine Loader ID - ADMINLACTIC ACID, [id number] 15:31:59 Test Item Value Reference Range Interpretation Comments LACTATE BLOOD VENOUS 1.53 mmol/L 0.50-2.00 Specime n moderately (2) (BEAKER) (test hemolyzed code = 7887) Filler Shredding Machine Loader ID - ADMINCOMPREHENSIVE METABOLIC [id number] 14:06:53 Test Item Value Reference Range Interpretation [...] not appl icable for dialysis patien ts Filler Shredding Machine Loader ID - ADMINHIGH SENSITIVITY TROPONIN [id number] 14:02:29 Test Item Value Reference Range Interpretation Comments HIGH SENSITIVITY < pg/ml See_Comment [Automated message] TROPONIN I (test code = The system which [id number]) generated this result transmitted ref erence range: <=17. Th e reference range was not used to interpr et this result as normal/abnormal . Filler Shredding Machine Loader ID - ADMINThe AUTOMATIC LATHE SETTER STAT High Sensitivity Troponin-I results should be used in conjunction with other diagnostic information such as ECG, clinical observations and information, and patientsymptoms to aid in the diagnosis of ND. [id number] 13:56:30 Test Item Value Reference Range Interpretation Comments MAGNESIUM (BEAKER) 2.0 mg/dL 1.6-2.6 Specimen markedly (test code = 627) hemolyzed Filler Shredding Machine Loader ID - ADMINCREATINE KINASE (CK)2023-04-16 13:56:30 Test Item Value Reference Range Interpretation Comments CREATINE KINASE TOTAL (BEAKER) (test 162 U/L 29-200 code = 380) Filler Shredding Machine Loader ID - ADMINPT/[id number] 13:54:09 Test Item Value Reference Range Interpretation [...] for patients with mechanical heart valves.BLOOD GAS, [id number] 13:52:31 Test Item Value Reference Range Interpretation [...] (test code = 1819) 21.0 LACTIC ACID, [id number] 13:49:46 Test Item Value Reference Range Interpretation Comments LACTATE BLOOD VENOUS 2.67 mmol/L 0.50-2.00 H Specime n markedly (2) (BEAKER) (test hemolyzed code = 9937) Filler Shredding Machine Loader ID - ADMINCBC W/PLT COUNT & AUTO [id number] 13:41:46 Test Item Value Reference Range Interpretation [...] (test code = 2801) XR CHEST 2 [id number] 13:11:49 [facility] : 1965 Sex: FHISTORY: Left pleural effusion, shortness of breathCOMPARISON: 04/15/2023FINDINGS: Small left pleural effusion. No pneumothorax. No right pleuraleffusion. Lungs clear.The heart shadow is normal in size. The thoracic aorta is mildlytortuous.Electronically Signed By: Dipak White04/16/2023 13:13 CDTWorkstation Name: [id number] FLUID CELL COUNT WITH [id number] 14:20:03 Test Item Value Reference Range Interpretation Comments APPEARANCE FLUID Cloudy Clear A (BEAKER) (test code = 510) COLOR FLUID (BEAKER) [place] Colorless, Straw A (test code = 511) RBC FLUID (BEAKER) 60347 /cu mm See_Comment H [Automat ed message] [...] (test code The syst em which = 7611) generated this result transmit joanna reference range [...] 2873) XR CHEST 1 VIEW PORTABLE / [id number] 12:32:14 [facility] : 1965 Sex: FChest one view.Clinical history: s/p thoraComparison: April 11iscussion: A frontal chest is provided.Cardiomediastinal contours are unchanged. Mild pleural parenchymal opacity at the left lower thoraxis unchanged.There is no pneumothorax. Right lung is clear.No acute bony abnormality.Electronically S igned By: Manish Panda04/15/2023 12:34 CDTWorkstation Name: [id number] FLUORO NON- SPECIFIC UP TO 1 [id number] 15:46:14 [facility] : 1965 Sex: FThisis a non- reportable study with no Radiologist dictation. Please refer to your PACS to review images,or Doc Flowsheets for documentation on studies without images. [id number] 17:36:47 [facility] : 1965 Sex: FUltrasound guided left thoracentesis.Clinical History: Left pleural effusion.Modality: Ultrasound.Sedation: None. Child Protection Specialist: Ellis Lylesistant: None. Estimated Blood Loss: 1ccSpecimen: [...] Signed By: Dipak Szymanski04/11/2023 17:38 CDTWorkstation Name: [id number] FLUID CELL COUNT WITH [id number] 14:13:51 Test Item Value Reference Range Interpretation Comments APPEARANCE FLUID (BEAKER) (test Turbid Clear A code = 510) COLOR FLUID (BEAKER) (test code Red Colorless, Straw A = 511) RBC FLUID (BEAKER) (test code = 97130 /cu mm <=1 H 513) TOTAL NUCLEATED [...] 2873) XR CHEST 1 VIEW PORTABLE / [id number] 13:39:13 [facility] EVER : 1965 Sex: FCLINICAL HISTORY: s/p thoracentesisTECHNIQUE: 1 view of the chestCOMPARISON: 04/08/2023IMPRESSION:No pneumothorax. Trace left pleural effusion again seen. No infiltrates.No cardiomegaly.Electronically SignedBy: Antwan Flor04/11/2023 13:41 CDTWorkstation Name: [id number] DEHYDROGENASE (LDH), BODY FLUID 2023-04-09 16:42:15 Test [...] recovery and/or detection times of some organisms.BLOOD [id number] 13:00:23 Test Item Value Reference Range Interpretation Comments CULTURE (BEAKER) (test No growth in 5 days code = 1095) The specimen volume collected for this blood culture was below the optimum (10 mL per bottle or 20 mL total). Use of lower volumes may adversely affect recovery and/or detection times of some organisms.BODY FLUID CELL COUNT WITH [id number] 19:24:03 Test Item Value Reference Range Interpretation Comments APPEARANCE FLUID (BEAKER) Slightly Bloody Clear A (test code = 510) COLOR FLUID (BEAKER) (test Straw Colorless, Straw code = 511) RBC FLUID (BEAKER) (test 14919 /cu mm <=1 H code = 513) [...] Sterile Vial (BEAKER) (test code = 2873) [id number] 16:23:34 [facility] : 1965 Sex: FUltrasound guided left thoracentesis.Clinical History: Left pleural effusion.Modality: Ultrasound.Sedation: None. Child Protection Specialist: Ellis Lylesistant: None. Estimated Blood Loss: 1ccSpecimen: [...] guided left thor acentesis.Electronically Signed By: Deandre Retana04/08/2023 16:25 CDTWorkstation Name: [id number] CHEST 1 VIEW PORTABLE / [id number] 15:30:23 [facility] : 1965 Sex: FTECHNIQUE: Frontal view of the chest.INDICATION: s/p thoracentesis.COMPARISON: 04/04/2023.FINDINGS:LINES/TUBES: None.HEART AND MEDIASTINUM: Cardiomediastinal contour is stable. LUNGS: Mild left basilar atelectatic change. No consolidation orpulmonary edema.PLEURA: Small left pleural effusion. No pneumothorax.SOFT TISSUES AND BONES: Unremarkable.IMPRESSION:Small left pleural effusion with left basilar atelectatic change. Nopneumothorax.Electronically Signed By: Adilia Polanco04/08/2023 15:32 CDTWorkstation Name: [id number] CULTURE + SMEAR 2023-04-06 08:24:23 Test Item Value Reference Range Interpretation Comments CULTURE (BEAKER) (test No fungus isolated in code = 1095) 28 days FUNGUS SMEAR (BEAKER) No fungi seen (test code = 1406) CT ABDOMEN/PELVIS WITHOUT IV [id number] 16:41:18 [facility] : 1965 Sex: [...] Signed By: Erika Kan04/04/2023 16:43 CDTWorkstation Name: [id number] [id number] 14:20:01 [facility] : 1965 Sex: FUltrasound guided left thoracentesis.Clinical History: Left pleural effusion.Modality: Ultrasound.Sedation: None. Child Protection Specialist: Danuta Corralistant: None. Estimated Blood Loss: 1ccSpecimen: [...] Signed By: Mikael Darnell04/04/2023 14:22 CDTWorkstation Name: [id number] METABOLIC [id number] 12:43:52 Test Item Value Reference Range Interpretation [...] not appl icable for dialysis patien ts Filler Shredding Machine Loader ID - JSSpecimen slightly ictericLACTIC ACID, [id number] 12:36:49 Test Item Value Reference Range Interpretation Comments LACTATE BLOOD VENOUS (2) (BEAKER) 1.61 mmol/L 0.50-2.00 (test code = 2872) Filler Shredding Machine Loader ID - JSCBC W/PLT COUNT & AUTO [id number] 11:56:33 Test Item Value Reference Range Interpretation [...] (BEAKER) (test code = 2801) LACTIC ACID, [id number] 11:56:21 Test Item Value Reference Range Interpretation Comments LACTATE BLOOD VENOUS 2.81 mmol/L 0.50-2.00 H Specime n markedly (2) (BEAKER) (test hemolyzed code = 2872) Filler Shredding Machine Loader ID - ADMINXR CHEST 2 [id number] 11:54:[address] [facility] [facility] : 1965 Sex: [...] Signed By: Deandre Retana04/04/2023 11:56 CDTWorkstation Name: [id number] 11:53:15 Test Item Value Reference Range Interpretation Comments PARTIAL THROMBOPLASTIN TIME 29.2 seconds 22.5-36.0 (BEAKER) (test code = 760) PROTHROMBIN TIME/[id number] 11:52:36 Test Item Value Reference Range Interpretation [...] Comments COLOR (BEAKER) (test code = 470) [place] CLARITY (BEAKER) (test code = 469) Clear [...] /LPF 514) SOURCE(BEAKER) (test code = 2795) Filler Shredding Machine Loader ID - [auto]Filler Shredding Machine Loader ID - techBODY FLUID CELL COUNT WITH DIFFERENTIAL 2023-04-04 11:13:45 Test Item Value Reference Range Interpretation Comments APPEARANCE FLUID (BEAKER) (test Bloody Clear A code = 510) COLOR FLUID (BEAKER) (test code [place] Colorless, Straw A = 511) RBC FLUID (BEAKER) (test code = 42085 /cu mm <=1 H 513) TOTAL NUCLEATED [...] 2873) XR CHEST 1 VIEW PORTABLE / [id number] 09:58:29 [facility] : 1965 Sex: FXR CHEST 1 VIEW PORTABLE / BEDSIDECLINICAL HISTORY: s/p left thora TECHNIQUE: Single view of the chest.COMPARISON: March 28, 2023IMPRESSION:Minimal left lung base opacities likely atelectasis or trace residualpleural effusion status post left thoracentesis. No pneumothorax. Thecardiomediastinal silhouette is magnified by technique. The osseousstructures appear stable.Electronically Signed By: Wilber Hylton04/04/2023 10:00 CDTWorkstation Name: [id number] CULTURE + [id number] 08:29:42 Test Item Value Reference Range Interpretation Comments CULTURE (BEAKER) (test No fungus isolated in code = 1095) 28 days FUNGUS SMEAR (BEAKER) No fungal elements seen (test code = 1406) US [id number] 09:24:25 [facility] : 1965 Sex: FUltrasound guided left-sided thoracentesis.Clinical History: Left pleural effusion.Modality: Ultrasound.Sedation: None. Child Protection Specialist: Hannah Munozt: None. Estimated Blood Loss: 1ccSpecimen: [...] By: Lj Stevenson MD04/03/2023 09:26 CDTWorkstation Name: [id number] FLUID CELL COUNT WITH [id number] 17:23:22 Test Item Value Reference Range Interpretation Comments APPEARANCE FLUID (BEAKER) (test Cloudy Clear A code = 510) COLOR FLUID (BEAKER) (test code [place] Colorless, Straw A = 511) RBC FLUID (BEAKER) (test code = 64261 /cu mm <=1 H 513) TOTAL NUCLEATED [...] 2873) XR CHEST 1 VIEW PORTABLE / [id number] 15:03:35 [facility] : 1965 Sex: FTECHNIQUE: Frontal view of the chest.INDICATION: s/p left thoracentesis.COMPARISON: 03/28/2023.FINDINGS:LINES/TUBES: None.HEART AND MEDIASTINUM: Cardiomediastinal contour is within normallimits. LUNGS: The lungs are well inflated and clear. No consolidation orpulmonary edema.PLEURA: No pneumothorax. No significant pleural effusion.SOFT TISSUES AND BONES: Unremarkable.IMPRESSION:No acute cardiopulmonary process. No pneumothorax status post leftthoracentesis.Electronically Signed By: Adilia Polanco04/01/2023 15:05 CDTWorkstation Name: [id number] BRAIN WITHOUT IV [id number] 20:16:32 [facility] : 1965 Sex: FCT Head without contrastCLINICAL HISTORY: Mental status change, unknown cause TECHNIQUE: Contiguous axialCT images through the head without contrast.This exam [...] collections. The skull is intact. Thevisualized paranasal sinuses are well-aerated. IMPRESSION:No CT evidence of acute infarct, hemorrhage, or hydrocephalus.Electronically Signed By: Antwan Flor03/30/2023 20:18 CDTWorkstation Name: [id number] METABOLIC [id number] 18:35:39 Test Item Value Reference Range Interpretation [...] not appl icable for dialysis patien ts Filler Shredding Machine Loader ID - BSSpecimen slightly ictericHEPATIC FUNCTION [id number] 18:35:39 Test Item Value Reference Range Interpretation [...] Specimen slightly (test code = 347) hemolyzed Filler Shredding Machine Loader ID - BSSpecimen slightly ictericPT/[id number] 18:34:42 Test Item Value Reference Range Interpretation [...] mechanical heart valves.CBC W/PLT COUNT & AUTO [id number] 18:18:57 Test Item Value Reference Range Interpretation [...] 0.00-1.00 PERCENT (BEAKER) (test code = 2801) [id number] 15:05:38 [facility] : 1965 Sex: FUltrasound guided left thoracentesis.Clinical History: Left pleural effusion.Modality: Ultrasound.Sedation: None. Child Protection Specialist: Hannah Lylest: None. Estimated Blood Loss: 1ccSpecimen: [...] ultrasound guided left thor acentesis.Electronically Signed By: Lee Diaz03/30/2023 15:07 CDTWorkstation Name: [id number] [id number] 13:01:27 Test Item Value Reference Range Interpretation Comments POC-GLUCOSE METER 91 mg/dL 70-110 : TESTED Jassi Peck [facility] 6720 (DANNY) (test code = [place], 1538) [address]: Filler Shredding Machine Loader/Techni shavon ID = [id number] for Tamika Briggs US [id number] 08:35:26 [facility] : 1965 Sex: FUltrasound guided left thoracentesis.Clinical History: Left pleural effusion.Modality: Ultrasound.Sedation: None. Child Protection Specialist: Hannah Lylest: None. Estimated Blood Loss: 1ccSpecimen: [...] By: Lj Stevenson MD03/29/2023 08:37 CDTWorkstation Name: [id number] FLUID CELL COUNT WITH [id number] 12:50:33 Test Item Value Reference Range Interpretation Comments APPEARANCE FLUID (BEAKER) (test Bloody Clear A code = 510) COLOR FLUID (BEAKER) (test code [place] Colorless, Straw A = 511) RBC FLUID (BEAKER) (test code = 24340 /cu mm <=1 H 513) TOTAL NUCLEATED [...] 2873) XR CHEST 1 VIEW PORTABLE / [id number] 10:49:57 [facility] : 1965 Sex: FINDICATION: s/p thoracentesisCOMPARISON: 03/25/2023TECHNIQUE: Single frontal view of the chest.FINDINGS: Lungs and pleura: No pneumothorax status post thoracentesis. Noeffusion.Heart and mediastinum: Normal heart size. Unremarkable mediastinalcontours.Osseous structures: No acute abnormality.Other: None.IMPR ESSION:No pneumothorax status post thoracentesis. No effusion.Electronically Signed By: Estrella Walters03/28/2023 10:51 CDTWorkstation Name: [id number] FLUID CELL COUNT WITH [id number] 18:08:53 Test Item Value Reference Range Interpretation Comments APPEARANCE FLUID (BEAKER) Moderately Bloody Clear A (test code = 510) COLOR FLUID (BEAKER) (test Yellow Colorless, Straw A code = 511) RBC FLUID (BEAKER) (test 50605 /cu mm <=1 H code = 513) [...] 2873) XR CHEST 1 VIEW PORTABLE / [id number] 15:24:56 [facility] : 1965 Sex: FXR CHEST 1 VIEW PORTABLE / BEDSIDETECHNIQUE: Frontal view(s) of the chest.INDICATION: s/p thoracentesiss/p thoracentesisCOMPARISON: 03/21/2023FINDINGS/IMPRESSION:Lines/Tubes: NoneLungs/pleura: Low lung volumes. Mild interstitial airspace opacities,likely mild edema. No pleural effusion. No pneumothorax.Heart and Mediastinum: Unchanged.Soft Tissues and Bones: Unchanged.Electronically Signed By: Carolyn Block03/25/2023 15:26 CDTWorkstation Name: [id number] 19:00:19 Test Item Value Reference Range Interpretation Comments CULTURE (BEAKER) (test No growth in 5 days code = 1095) The specimen volume collected for this blood culture was below the optimum (10 mL per bottle or 20 mL total). Use of lower volumes may adversely affect recovery and/or detection times of some organisms.BLOOD [id number] 18:00:08 Test Item Value Reference Range Interpretation [...] fungi seen (test code = 1406) US [id number] 07:48:55 [facility] : 1965 Sex: FUltrasound guided left thoracentesis.Clinical History: Left pleural effusion.Modality: Ultrasound.Sedation: None. Child Protection Specialist: Hannah Lylest: None. Estimated Blood Loss: 1ccSpecimen: [...] By: Lj Stevenson MD03/22/2023 07:50 CDTWorkstation Name: [id number] CHEST 1 VIEW PORTABLE / [id number] 06:19:15[facility] : 1965 Sex: FXR CHEST 1 VIEW PORTABLE / BEDSIDEINDICATION: s/p thoracentesisCOMPARISON: 03/14/2023FINDINGS: Portable frontal view of the chest. IMPRESSION:Support Lines: None Lungs and pleura: No focal lung consolidation or large pleural effusion.No pneumothorax.Heart and mediastinum: Stable contours. Additional findings: Stable osseous structures.Electronically Signed By: Wilber Hylton03/22/2023 06:21 CDTWorkstation Name: [id number] LAB [id number] 09:58:21 Test Item Value Reference Range Interpretation Comments SCAN RESULT (test code = See scanned report. [id number]) HEPATIC FUNCTION [id number] 05:11:09 Test Item Value Reference Range Interpretation [...] (test code = 29 U/L 6-55 347) Filler Shredding Machine Loader ID - EOOSpecimen slightly ictericBASIC METABOLIC [id number] 05:11:08 Test Item Value Reference Range Interpretation [...] not appl icable for dialysis patien ts Filler Shredding Machine Loader ID - EOOSpecimen slightly ictericPROTHROMBIN TIME/[id number] 04:50:46 Test Item Value Reference Range Interpretation Comments PROTIME (BEAKER) (test code = 18.5 seconds 11.9-14.2 H 759) INR (BEAKER) (test code = 370) 1.58 <=5.90 RECOMMENDED COUMADIN/WARFARIN INR THERAPY RANGESSTANDARD DOSE: 2.0 - 3.0 Includes: PROPHYLAXIS for venous thrombosis, systemic embolization; TREATMENT for venous thrombosis and/or pulmonary embolus.HIGH RISK: Target INR is 2.5-3.5 for patients with mechanical heart valves.BASIC METABOLIC [id number] 10:32:34 Test Item Value Reference Range Interpretation [...] not appl icable for dialysis patien ts Filler Shredding Machine Loader ID - MARCOSpecimen slightly ictericBASIC METABOLIC [id number] 06:02:43 Test Item Value Reference Range Interpretation [...] not appl icable for dialysis patien ts Filler Shredding Machine Loader ID - MARCOSpecimen slightly ictericHEPATIC FUNCTION [id number] 06:02:43 Test Item Value Reference Range Interpretation [...] (test code = 25 U/L 6-55 347) Filler Shredding Machine Loader ID - MARCOSpecimen slightly ictericPROTHROMBIN TIME/[id number] 05:41:15 Test Item Value Reference Range Interpretation Comments PROTIME (BEAKER) (test code = 19.4 seconds 11.9-14.2 H 759) INR (BEAKER) (test code = 370) 1.75 <=5.90 RECOMMENDED COUMADIN/WARFARIN INR THERAPY RANGESSTANDARD DOSE: 2.0 - 3.0 Includes: PROPHYLAXIS for venous thrombosis, systemic embolization; TREATMENT for venous thrombosis and/or pulmonary embolus.HIGH RISK: Target INR is 2.5-3.5 for patients with mechanical heart valves.URINALYSIS W/ [id number] 12:02:58 Test Item Value Reference Range Interpretation [...] (test code Urine, Clean Catch = 2795) Filler Shredding Machine Loader ID - [auto]Filler Shredding Machine Loader ID - techMRA HEAD WITHOUT IV [id number] 09:07:21[facility] : 1965 Sex: [...] system: Normal flow-related enhancement within the bilateral P0xihjexzk and the basilar artery Posterior cerebral arteries: Normal flow-related enhancement within thebilateral DRYWALL FOREMAN P1-P2 segments Additional findings: None. IMPRESSION:No acute ischemia or parenchymal hemorrhage.No flow limiting stenosis in the major branch vessels of thecranialcirculation. Electronically Signed By: Estrella Walters03/19/2023 09:09 CDTWorkstation Name: [id number] BRAIN WITHOUT IV [id number] 09:07:21 [facility] : 1965 Sex: [...] system: Normal flow-related enhancement within the bilateral B4qxaeqigd and the basilar artery Posterior cerebral arteries: Normal flow-related enhancement within thebilateral DRYWALL FOREMAN P1-P2 segments Additional findings: None. IMPRESSION:No acute ischemia or parenchymal hemorrhage.No flow limiting stenosis in the major branch vessels of thecranialcirculation. Electronically Signed By: Estrella Walters03/19/2023 09:09 CDTWorkstation Name: OWNIPMC60FU [id number] 08:38:22[facility] : 1965 Sex: [...] By: Aravind Neal MD03/19/2023 08:40 CDTWorkstation Name: [id number] ABDOMEN [id number] 08:38:22 [facility] EV[facility] : 1965 Sex: FRight [...] By: Aravind Neal MD03/19/2023 08:40 CDTWorkstation Name: [id number] W/PLT COUNT & AUTO DIFFERENTIAL 2023-03-19 07:44:16 [...] (BEAKER) (test code = 2801) COMPREHENSIVE METABOLIC [id number] 07:42:52 Test Item Value Reference Range Interpretation [...] not appl icable for dialysis patien ts Filler Shredding Machine Loader ID - [id number] 07:40:36 Test Item Value Reference Range Interpretation Comments PHOSPHORUS (BEAKER) (test code = 4.3 mg/dL 2.3-4.7 604) Filler Shredding Machine Loader ID - [id number] 07:40:35 Test Item Value Reference Range Interpretation Comments MAGNESIUM (BEAKER) (test code = 3.0 mg/dL 1.6-2.6 H 627) Filler Shredding Machine Loader ID - MIGUELOCALCIUM, [id number] 07:16:59 Test Item Value Reference Range Interpretation Comments CALCIUM IONIZED (BEAKER) (test 1.08 mmol/L 1.12-1.27 L code = 698) PH, BLOOD (BEAKER) (test code = 7.45 1810) VITAMIN [id number] 21:59:30 Test Item Value Reference Range Interpretation Comments VITAMIN B12 (BEAKER) (test code = 999 pg/mL 213-816 H 774) Filler Shredding Machine Loader ID - BSURINALYSIS W/ REFLEX URINE [id number] 18:23:30 Test Item Value Reference Range Interpretation [...] = 516) SOURCE(BEAKER) (test code = 2795) Filler Shredding Machine Loader ID - [auto]Filler Shredding Machine Loader ID - techBASIC METABOLIC [id number] 18:21:01 Test Item Value Reference Range Interpretation [...] not appl icable for dialysis patien ts Filler Shredding Machine Loader ID - BSSpecimen slightly ictericHEPATIC FUNCTION [id number] 18:21:01 Test Item Value Reference Range Interpretation [...] (test code = 36 U/L 6-55 347) Filler Shredding Machine Loader ID - BSSpecimen slightly ictericPROTEIN, RANDOM [id number] 18:19:35 Test Item Value Reference Range Interpretation Comments PROTEIN, URINE (BEAKER) (test code = 13 mg/dL 0-14 1569) Filler Shredding Machine Loader ID - ADMINSODIUM, RANDOM [id number] 18:19:35 Test Item Value Reference Range Interpretation Comments SODIUM URINE (BEAKER) (test code = 26 meq/L 243) Reference Range: No NormalsOperator ID - ADMINCREATININE, RANDOM [id number] 18:19:34 Test Item Value Reference Range Interpretation Comments CREATININE URINE (BEAKER) (test 117.0 mg/dL code = 375) Reference Range: No NormalsOperator ID - ADMINCALCIUM, [id number] 18:03:23 Test Item Value Reference Range Interpretation Comments CALCIUM IONIZED (BEAKER) (test 1.07 mmol/L 1.12-1.27 L code = 698) PH, BLOOD (BEAKER) (test code = 7.45 1810) [id number] 17:57:36 Test Item Value Reference Range Interpretation Comments MAGNESIUM (BEAKER) (test code = 2.1 mg/dL 1.6-2.6 627) Filler Shredding Machine Loader ID - ADMINMISCELLANEOUS LAB [id number] 14:06:38 Test Item Value Reference Range Interpretation Comments SCAN RESULT (test code = See scanned report. [id number]) BODY FLUID CELL COUNT WITH [id number] 11:50:04 Test Item Value Reference Range Interpretation Comments APPEARANCE FLUID Cloudy Clear A (BEAKER) (test code = 510) COLOR FLUID (BEAKER) [place] Colorless, Straw A (test code = 511) RBC FLUID (BEAKER) 30264 /cu mm <=1 H (test code = [...] for (BEAKER) (test code = malignancy 2619) [id number] Shaneka Saab M.D. (BEAKER) (test code = (electronic 2620) signature) CONTAINER BODY FLUID Sterile Cup (BEAKER) (test code = 3633) T SPOT [id number] 15:08:38 Test Item Value Reference Range Interpretation [...] = 1687) SCAN RESULT (test code = 3346590) XR CHEST 1 VIEW PORTABLE / [id number] 14:45:36 [facility] : 1965 Sex: FChest AP portable semierectComparison exam: 03/11/2023History provided: Status post thoracentesisPleural fluid has been evacuated on the left. No pneumothorax evident.Heart size normal and lungs are clear.Electronically Signed By: Mp Harris03/14/2023 14:47 CDTWorkstation Name: [id number] [id number] 14:36:40[facility] EVER : 1965 Sex: FULTRASOUND GUIDED LEFT THORACENTESISHistory [...] Signed By: Mp Harris03/14/2023 14:56 CDTWorkstation Name: [id number] FLUID CELL COUNT WITH [id number] 18:15:17 Test Item Value Reference Range Interpretation Comments APPEARANCE FLUID Purulent Clear A (BEAKER) (test code = 510) COLOR FLUID (BEAKER) [place] Colorless, Straw A (test code = 511) RBC FLUID (BEAKER) 81899 /cu mm <=1 H (test code = [...] code = count. Negative for 2619) malignancy ATCH-[id number] Shaneka Saab M.D. (BEAKER) (test code = (electronic 2620) signature) CONTAINER BODY FLUID EDTA Tube (BEAKER) (test code = 2873) XR CHEST 1 VIEW PORTABLE / [id number] 12:19:07 [facility] : 1965 Sex: FXR CHEST 1 VIEW PORTABLE / BEDSIDETECHNIQUE: Frontal view(s) of the chest.INDICATION: Post thoracentesisPost thoracentesisCOMPARISON: 03/09/2023FINDINGS/IMPRESSION:Lines/Tubes: NoneLungs/pleura: Low lung volumes. Bibasilar atelectasis. No pleuraleffusion. No pneumothorax, status post left pleural thoracentesis.Heart and Mediastinum: Unremarkable.Soft Tissues and Bones: Unremarkable.Electronically Signed By: Carolyn Block03/11/2023 12:21 CDTWorkstation Name: FOPLPG0YZ [id number] 12:16:12 [facility] : 1965 Sex: FPROCEDURE: Ultrasound-guided [...] Signed By: Carolyn Block03/11/2023 12:18 CDTWorkstation Name: [id number] ANTIBODY, [id number] 12:02:16 Test Item Value Reference Range Interpretation Comments RUBELLA IGG QUANTITATION (BEAKER) 39.0 IU/mL <8.0 H (test code = 572) Rubella IgG Result Interpretation: </= 7.0 IU/mL Negative - Presumed non- immune 8.0 - 9.9 IU/mL Equivocal >= 10.0 IU/mL Positive - Presumed immune CYTOMEGALOVIRUS ANTIBODY, [id number] 12:02:15 Test Item Value Reference Range Interpretation Comments CYTOMEGALOVIRUS, IGG (BEAKER) Positive Negative, Equivocal A (test code = 3429) CMV IgG Result Interpretation: </= 0.8 Al Negative 0.9-1.0 Al Equivocal >/=1.1 Al PositiveEBV ANTIBODY, [id number] 12:02:15 Test Item Value Reference Range Interpretation Comments IMANI DENIS VIRAL CAPSID Positive Negative, Equivocal A ANTIGEN IGG (BEAKER) (test code = 3415) Imani Denis Viral Capsid Antigen IgG Result Interpretation: </= 0.8 Al Negative 0.9-1.0 Al Equivocal >/= 1.1 Al PositiveEBV ANTIBODY, [id number] 12:02:15 Test Item Value Reference Range Interpretation Comments IMANI DENIS VIRAL CAPSID Negative Negative, Equivocal ANTIGEN IGM (BEAKER) (test code = 3418) Imani Denis Viral Capsid Antigen IgM Result Interpretation: </= 0.8 Al Negative 0.9-1.0 Al Equivocal >/= 1.1 Al [id number] 11:58:38 Medical Cytology Report Case: [id number] Authorizing Provider: Joseluis Stoner MD Collected:03/08/2023 12:46 PM Ordering Location: [facility] Received: 03/08/2023 01:09 PM Pathologist: Shaneka Saab MD Specimen: Pleural, Left LEFT PLEURAL FLUID (CYTOSPINS AND CELL BLOCK): - NEGATIVE FOR MALIGNANCY Signing Pathologist Direct Phone Line: [phone] signed by Shaneka Saab MD on 03/11/2023 at 11:58 AMThere are rare clusters of atypical cells that stain for positive Calretinin and negative for MOC-31 and Jason-EP4, confirming their mesothelial origin. Negative for khlerflfik92569, 90037; 13392; 91651 x 89 y.o. F presenting with left pleural effusion here for left thoracentesis. PMH: asthma, cirrhosis, HTN, abscess (MRSA)LEFT PLEURAL FLUIDA. Pleural, LeftReceived 1100 mls bloody opaque chylous fluid; prepared 4 cytospins and cell block(A2)(collodion bag) - the cell block was fixed in formalin at 10:35 on 03/09/2023 Performed.SatisfactoryThe interpretation of this case included the use of immunohistochemistry or special stains.Calretinin; MOC-31 and Jason-CW0Ydimzcx Slides Examined: In-house known positive controls were evaluated along with the test tissue. These control slides run alongside of the patients sample show appropriate staining. Internal positive and negative controls when available are evaluated Immunohistochemistry technical testing was performed at [facility], Pathology Laboratory where it was developed [...] qualified to perform high complexity clinical laboratory testing.[facility], Department of Pathology, [address] [place] [address], [facility], Department of Pathology, [address] [place] [address], [facility], Department of Pathology, [address] [place] [address], WGGT SCREEN, URINE, [id number] 09:09:56 Test Item Value Reference Range Interpretation Comments SCAN RESULT (test code = See scanned report. [id number]) BODY FLUID CULTURE + GRAM [id number] 08:36:33 Test Item Value Reference Range Interpretation Comments CULTURE (BEAKER) (test code = 1095) No growth XR DXA BONE DENSITY [id number] 00:58:42 [facility] : 1965 Sex: [...] Signed By: Ken Sauer03/11/2023 01:00 CDTWorkstation Name: [id number] CHEST 2 VIEWS 2023-03-10 14:22:18 [facility] : 1965 Sex: FEXAM: PA and lateral views of the chest.COMPARISON: Chest radiograph 03/08/2023LINICAL HISTORY: PRE LIVER TRANSPLANT EVAL PRE LIVER TRANSPLANT EVALSTATUS post thoracentesis [...] Signed By: Lilo Domingo03/10/2023 14:24 CDTWorkstation Name: DANVJAFQ0UPORXYTPE ZOSTER ANTIBODY, [id number] 08:09:51 Test Item Value Reference Range Interpretation Comments VARICELLA ZOSTER IGG (AL) (DANNY) 3.3 (test code = 3197) VARICELLA ZOSTER RESULT INTERPRETATIONS: <=0.8 Al Nonreactive: Presumed non- immune to VZV 0.9-1.0 Al Equivocal >=1.1 Al Reactive: Presumed immune to VZV TOXOPLASMA GONDII ANTIBODY, [id number] 08:09:51 Test Item Value Reference Range Interpretation Comments TOXOPLASMA GONDII IGG QUANTITATIVE < IU/mL <10.0 (DANNY) (test code = 3428) Toxoplasma Gondii IgG Result Interpretation: </= 9.9 IU/mL Normal 10-11 IU/mL Equivocal >/= 12IU/mL PositiveBODY FLUID CELL COUNT WITH DIFFERENTIAL 2023-03-09 18:42:15 Test Item Value Reference Range Interpretation Comments APPEARANCE FLUID Turbid Clear A (BEAKER) (test code = 510) COLOR FLUID (BEAKER) [place] Colorless, Straw A (test code = 511) RBC FLUID (BEAKER) 31592 /cu mm <=1 H (test code = [...] code = count. Negative for 2619) malignancy [id number] Shaneka Saab M.D. (BEAKER) (test code = (electronic 2620) signature) CONTAINER BODY FLUID EDTA Tube (BEAKER) (test code = 2873) XR MANDIBLE 4 VIEWS [id number] 18:04:10 [facility] : 1965 Sex: FEXAMINATION: XR MANDIBLE 4 VIEWS MIN INDICATION: PRE LIVER TRANSPLANT EVALCOMPARISON: None DISCUSSION:Osseous detail is partially obscured by overlying bones/soft tissues.No acute fracture or osseous abnormality given exam limitations. No joint malalignment or dislocation. The soft tissues are unremarkable. IMPRESSION:No acute osseous abnormality.Electronically Signed By: Deep Soler03/09/2023 18:06 CDTWorkstation Name: [id number] 17:13:55 Test Item Value Reference Range Interpretation Comments T4 TOTAL (BEAKER) (test code = 895) 7.7 ug/dL 4.9-11.7 Filler Shredding Machine Loader ID - [id number] 16:33:38 Test Item Value Reference Range Interpretation Comments THYROID STIMULATING HORMONE 4.265 uIU/mL 0.350-4.940 (BEAKER) (test code = 772) Filler Shredding Machine Loader ID - MMCARCINOEMBRYONIC ANTIGEN (CEA)2023-03-09 16:33:38 Test Item Value Reference Range Interpretation Comments CARCINOEMBRYONIC ANTIGEN (BEAKER) 2.2 ng/mL 0.0-5.0 (test code = 685) Filler Shredding Machine Loader ID - MMHEPATITIS B CORE ANTIBODY, [id number] 16:33:38 Test Item Value Reference Range Interpretation Comments HEPATITIS B CORE IGM ANTIBODY Nonreactive Nonreactive (BEAKER) (test code = 645) Filler Shredding Machine Loader ID - MMHIV-1 ANTIGEN WITH HIV-1/2 [id number] 16:33:38 Test Item Value Reference Range Interpretation Comments HIV-1 ANTIGEN WITH HIV 1\\T\\2 Nonreactive Nonreactive ANTIBODY (2) (BEAKER) (test code = 2586) Filler Shredding Machine Loader ID - [id number] 15:58:22 Test Item Value Reference Range Interpretation Comments T3 TOTAL (BEAKER) (test code = 0.72 ng/mL 0.60-1.81 656) Filler Shredding Machine Loader ID - [id number] 15:40:58 Test Item Value Reference Range Interpretation Comments TRANSFERRIN (BEAKER) (test code = 145 mg/dL 174-382 L 541) Filler Shredding Machine Loader ID - MMSpecimen slightly ictericCRYPTOCOCCAL [id number] 14:32:45 Test Item Value Reference Range Interpretation Comments CRYPTOCOCCAL ANTIGEN, SERUM Negative Negative, Interference (BEAKER) (test code = 1828) [id number] 14:32:11 Test Item Value Reference Range Interpretation Comments RPR SCREEN (BEAKER) (test code = Nonreactive Nonreactive 420) HEMOGLOBIN [id number] 13:55:09 Test Item Value Reference Range Interpretation [...] 5.7- 6.4% indicates increased risk for diabetes (prediabetes)."Filler Shredding Machine Loader ID - ADMOperator ID - ADMBLOOD GAS, [id number] 13:50:57 Test Item Value Reference Range Interpretation [...] (test code = 1819) 21.0 VITAMIN D, [id number] 13:45:25 Test Item Value Reference Range Interpretation Comments VITAMIN D 25-OH (BEAKER) (test 17.2 ng/mL 6.6-49.9 code = 2764) Effective 06/22/2017: Reference Range ChangeNew: 6.6-49.9 ng/mL Previous: 13.0- 47.8 ng/mLRecommendedVitamin D Target Range: 30.0-40.0 ng/mLOperator ID - ED [id number] 11:33:41Medical Cytology Report Case: [id number] Authorizing Provider: Joseluis Stoner MD Collected:03/03/2023 01:57 PM Ordering Location: [facility] Diagnostic Imaging Received: 03/04/2023 11:36 AM Pathologist: Shaneka Saab MD Specimen: Pleural, Left LEFT PLEURAL FLUID (CYTOSPINS AND CELL BLOCK): - NEGATIVE FOR MALIGNANCY - Chronic inflammatory cells present in background Signing Pathologist Direct Phone Line: [phone] signed by Shaneka Saab MD on 03/09/2023 at 11:33 [id number], [id number] y.o. F presenting with left pleural effusion. PMH: asthma, cirrhosis, HTN, abscess (MRSA)LEFT PLEURAL FLUIDA. Pleural, LeftReceived 1100 mls bloody white chylous opaque fluid; prepared 4 cytospins and cell block(A2)(collodion bag) - the cell block was fixed in formalin at 13:05 on 03/07/2023 Performed.Satisfactory. [facility], Department of Pathology, [address] [place] [address], [facility], Department of Pathology, [address] [place] [address], Qj. [facility],Department of Pathology, [address] [place] [address], [id number] 10:33:02 Test Item Value Reference Range Interpretation Comments ETHANOL (BEAKER) (test code = 400) < mg/dL <=10 Filler Shredding Machine Loader ID - MMCOMPREHENSIVE METABOLIC [id number] 10:14:53 Test Item Value Reference Range Interpretation [...] not appl icable for dialysis patien ts Filler Shredding Machine Loader ID - MMOperator ID - MMSpecimen slightly [id number] 09:51:32 Test Item Value Reference Range Interpretation Comments MAGNESIUM (BEAKER) (test code = 1.9 mg/dL 1.6-2.6 627) Filler Shredding Machine Loader ID - [id number] 09:51:32 Test Item Value Reference Range Interpretation Comments PHOSPHORUS (BEAKER) (test code = 3.3 mg/dL 2.3-4.7 604) Filler Shredding Machine Loader ID - MMURIC [id number] 09:51:32 Test Item Value Reference Range Interpretation Comments URIC ACID (BEAKER) (test code = 8.2 mg/dL 2.6-7.2 H 773) Filler Shredding Machine Loader ID - MMSpecimen slightly ictericLIPID [id number] 09:51:32 Test Item Value Reference Range Interpretation [...] Borderline 130-159 High 160-189 Very High >=190 Filler Shredding Machine Loader ID - MMSpecimen slightly ictericBILIRUBIN, [id number] 09:51:32 Test Item Value Reference Range Interpretation Comments BILIRUBIN DIRECT (BEAKER) (test 1.0 mg/dL 0.1-0.5 H code = 706) Filler Shredding Machine Loader ID - MMGAMMA GLUTAMYL TRANSFERASE (GGT)2023-03-09 09:51:32 Test Item Value Reference Range Interpretation Comments GAMMA GLUTAMYL TRANSFERASE (BEAKER) 51 U/L 9-64 (test code = 364) Filler Shredding Machine Loader ID - MMSpecimen slightly ictericPREGNANCY SCREEN, [id number] 09:24:02 Test Item Value Reference Range Interpretation Comments TEST URINE (BEAKER) (test Negative Negative code = 583) [id number] 09:11:02 Test Item Value Reference Range Interpretation Comments FIBRINOGEN LEVEL (BEAKER) (test 229 mg/dl 225-434 code = 658) [id number] 09:11:02 Test Item Value Reference Range Interpretation Comments PARTIAL THROMBOPLASTIN TIME 29.4 seconds 22.5-36.0 (BEAKER) (test code = 760) PROTHROMBIN TIME/[id number] 09:10:24 Test Item Value Reference Range Interpretation [...] mechanical heart valves.CBC W/PLT COUNT & AUTO [id number] 08:59:26 Test Item Value Reference Range Interpretation [...] PERCENT (BEAKER) (test code = 2801) US [id number] 13:29:33 [facility] : 1965 Sex: FUS THORACENTESISUS Guided Thoracentesis History: pleural effusionPrimary Filler Shredding Machine Loader: Goldie Albright MD.Sedation: None. Anesthesia: Lidocaine local [...] recovery recovery, [facility]. Complications: None immediate.Specimen: Sent to the lab. IMPRESSION:Impression: Successful ultrasound-guided thoracentesis of left pleural effusion withrecovery of 2.1 liters of pleural fluid. Thank you for the opportunity to assist in the care of your patient.Electronically Signed By: Goldie Albright03/08/2023 13:31 CDTWorkstation Name: [id number] CHEST 1 VIEW PORTABLE / [id number] 13:05:28 [facility] EVER : 1965 [...] Signed By: Goldie Albright03/08/2023 13:07 CDTWorkstation Name: [id number] CULTURE + SMEAR 2023-03-07 16:58:04 Test Item Value Reference Range Interpretation Comments CULTURE (BEAKER) (test No fungus isolated in code = 1095) 28 days FUNGUS SMEAR (BEAKER) No fungi seen (test code = 1406) BODY FLUID CELL COUNT WITH [id number] 19:21:25 Test Item Value Reference Range Interpretation Comments APPEARANCE FLUID Turbid Clear A (BEAKER) (test code = 510) COLOR FLUID (BEAKER) [place] Colorless, Straw A (test code = 511) RBC FLUID (BEAKER) 45080 /cu mm <=1 H (test code = [...] code = count. Negative for 2619) malignancy [id number] Shaneka Saab M.D. (BEAKER) (test code = (electronic 2620) signature) CONTAINER BODY FLUID EDTA Tube (BEAKER) (test code = 2873) XR CHEST 1 VIEW PORTABLE / [id number] 15:32:34 [facility] : 1965 Sex: FXR CHEST 1 VIEW PORTABLE / BEDSIDETECHNIQUE: Frontal view(s) of the chest.INDICATION: post thoracentesisCOMPARISON: 02/21/2023FINDINGS/IMPRESSION:Lines/Tubes: NoneLungs/pleura: A lingular/left lower lobe opacity with adjacent leftpleural effusion. No right-sided pleural effusion. No pneumothorax.Heart and Me diastinum: Unremarkable.Soft Tissues and Bones: Unremarkable.Electronically Signed By: Goldie Albright03/03/2023 15:34 CDTWorkstation Name: [id number] [id number] 14:52:49 [facility] BISI PATIENCELEIDY CURTIS : 1965 Sex: FPROCEDURE: [...] Signed By: Carolyn Block03/03/2023 15:04 CDTWorkstation Name: [id number] LAB [id number] 14:03:21 Test Item Value Reference Range Interpretation Comments SCAN RESULT (test see scanned report See scanned report. code = 1144084) see scanned reportCT BRAIN WITHOUT IV [id number] 20:48:50 [facility] : 1965 Sex: [...] Signed By: Erika Almazan02/26/2023 20:50 CDTWorkstation Name: [id number] METABOLIC [id number] 18:18:27 Test Item Value Reference Range Interpretation [...] not appl icable for dialysis patien ts Filler Shredding Machine Loader ID - MITUL BSpecimen slightly [id number] 18:18:27 Test Item Value Reference Range Interpretation Comments LIPASE (BEAKER) (test code = 749) 65 U/L 8-78 Filler Shredding Machine Loader ID - MITUL BSpecimen slightly ictericCBC W/PLT COUNT & AUTO [id number] 18:18:20 Test Item Value Reference Range Interpretation [...] 0.00-1.00 PERCENT (BEAKER) (test code = 2801) [id number] 18:04:10 Test Item Value Reference Range Interpretation Comments AMMONIA (BEAKER) (test 40 mol/L 18-72 Speci men slightly code = 348) hemolyzed Filler Shredding Machine Loader ID - ADMINBODY FLUID CULTURE + GRAM [id number] 11:35:18 Test Item Value Reference Range Interpretation Comments CULTURE (BEAKER) (test code = 1095) No growth [id number] 12:49:07Medical Cytology Report Case: [id number] Authorizing Provider: Joseluis Stoner MD Collected: 02/21/2023 11:49 AM Ordering Location: [facility] Received: 02/22/2023 09:24 AM Pathologist: Salvador Davenport MD Specimen: Pleural, Left LEFT PLEURAL FLUID (CYTOSPINS AND CELL BLOCK): - NEGATIVE FOR MALIGNANCY Reactive mesothelial cells and mixed inflammatory cells present Signing Pathologist Direct Phone Line: [phone] signed by Salvador Davenport MD on 02/23/2023 at 12:49 [id number], [id number] y.o.F with a PMH of HTN, asthma, Cifuentes cirrhosis, esophageal varices, refractory ascites and hepatic hydrothorax. Also with gallstones/biliary obstruction needing axial stent placement who was admitted to OSH for nausea and emesis x one day and transferred to [facility] for further evaluation and consideration of choleystitis / cholelithiasis. LEFT PLEURAL FLUIDA. Pleural, LeftReceived 1100 ml gelatinous orange cream fluid; prepared 4 cytospins and cell block(A2)(collodion bag) - the cell block was fixed in formalin at 16:07 on 3Performed.[facility], Department of Pathology, [address] [place] [address], [facility], Department of [facility], [address] [place] [address], [facility], Department of [facility]ology, [address] [place] [address], KI [id number] 15:34:35 [facility] EVER : 1965 Sex: FUltrasound guided left thoracentesis.Clinical History: Left pleural effusion.Modality: Ultrasound.Sedation: None. Child Protection Specialist: Danuta Corralistant: None. Estimated Blood Loss: 1ccSpecimen: [...] guided left thoracentesis.BODY FLUID CELL COUNT WITH [id number] 13:54:05 Test Item Value Reference Range Interpretation Comments APPEARANCE FLUID (BEAKER) (test Turbid Clear A code = 510) COLOR FLUID (BEAKER) (test code [place] Colorless, Straw A = 511) RBC FLUID (BEAKER) (test code = 19597 /cu mm <=1 H 513) TOTAL NUCLEATED [...] 2873) XR CHEST 1 VIEW PORTABLE / [id number] 12:41:37 [facility] : 1965 Sex: FINDICATION: s/p left thoraCOMPARISON: 02/17/2023TECHNIQUE: Single frontal view of the chest.FINDINGS: Lines, tubes, and devices: None.Lungs and pleura: Clear lungs. No pneumothorax.Heart and mediastinum: Normal heart size. Unremarkable mediastinalcontours.Osseous structures: No acute abnormality. Mild to moderate spondylosisand facet arthropathy are present within the spine.Other: None.IMPRESSION:No acute intrathoracic abnormality.US [id number] 13:20:59[facility] : 1965 Sex: FUltrasound guided left thoracentesis.Clinical History: Left pleural effusion.Modality: Ultrasound.Sedation: None. Child Protection Specialist: Danuta Corralistant: None. Estimated Blood Loss: 1ccSpecimen: [...] and uncomplicated ultrasound guided left thoracentesis.US ABDOMEN [id number] 13:20:53 [facility] : 1965 Sex: FHistory: Ascites. PROCEDURE: Limited sonographic examination of the abdomen was performed inpreparation for planned ultrasound-guided paracentesis. Limitedsonographic examination of the abdomen showed only a trace amount ofperihepatic and midline fluid. Therefore, paracentesis was notperformed. IMPRESSION:1. Trace ascites, not enough for planned paracentesis.XR CHEST 1 VIEW PORTABLE / [id number] 08:45:23[facility] : 1965 Sex: FChest AP portableCOMPARISON STUDY: 02/16/2023History provided: Status post left thoracentesisPleural fluid has been evacuated on the left. No pneumothorax. Lungs areclear. Heart size normal.COMPREHENSIVE METABOLIC [id number] 05:08:14 Test Item Value Reference Range Interpretation [...] not appl icable for dialysis patien ts Filler Shredding Machine Loader ID - MMSpecimen slightly ictericPROTHROMBIN TIME/[id number] 04:59:05 Test Item Value Reference Range Interpretation [...] mechanical heart valves.CBC W/PLT COUNT & AUTO [id number] 04:48:06 Test Item Value Reference Range Interpretation [...] 0-0 (test code = 413) SODIUM, RANDOM [id number] 21:11:21 Test Item Value Reference Range Interpretation Comments SODIUM URINE (BEAKER) (test code = 20 meq/L 243) Reference Range: No NormalsOperator ID - ADMINURINALYSIS [id number] 21:04:51 Test Item Value Reference Range Interpretation Comments RBC UA (BEAKER) (test code = 519) 20 /HPF WBC UA (BEAKER) (test code = 520) 4 /HPF BACTERIA (BEAKER) (test code = Occasional 517) SQUAMOUS EPITHELIAL (BEAKER) (test 4 /HPF code = 516) Filler Shredding Machine Loader ID - techURINALYSIS WITH MICROSCOPIC IF [id number] 21:02:38 Test Item Value Reference Range Interpretation [...] = 463) SOURCE(BEAKER) (test code = 2795) Filler Shredding Machine Loader ID - techXR CHEST 1 VIEW PORTABLE / [id number] 09:34:56 [facility] : 1965 Sex: FINDICATION: cough, recent left pleural effusionCOMPARISON: NoneTECHNIQUE: Single frontal view of the chest.FINDINGS: Lungs and pleura: Mild basilar subsegmental atelectasis. Questionabletrace left effusion.Heart and mediastinum: Normal heart size. Unremarkable mediastinalcontours.Osseous structures: No acute abnormality.Other: None.IMPRESSION:Mild basilar subsegmental atelectasis. Questionable trace left e ffusion.HEPATIC FUNCTION [id number] 06:43:05 Test Item Value Reference Range Interpretation [...] (test code = 42 U/L 6-55 347) Filler Shredding Machine Loader ID - ADMINSpecimen slightly ictericBASIC METABOLIC [id number] 06:43:04 Test Item Value Reference Range Interpretation [...] not appl icable for dialysis patien ts Filler Shredding Machine Loader ID - ADMINSpecimen slightly ictericCBC W/PLT COUNT & AUTO [id number] 06:02:40 Test Item Value Reference Range Interpretation [...] 0.00-1.00 PERCENT (BEAKER) (test code = 2801) [id number] 18:46:14Medical Cytology Report Case: [id number] Authorizing Provider: Joseluis Stoner MD Collected: 02/04/2023 02:25 PM Ordering Location: [facility] Radiology Ultrasound Received: 02/08/2023 08:26 AM Pathologist: Simon Corona MD Specimen: Pleural, Left LEFT PLEURAL FLUID (CYTOSPINS AND CELL BLOCK): - NEGATIVE FOR MALIGNANCY - Reactive mesothelial cells, histiocytes, and lymphocytes Signing PathologistDirect Phone Line: [phone] signed by Simon Corona MD on 02/09/2023 at 6:46 [id number], [id number] y.o. F with h/o CIFUENTES cirrhosis decompensated with EV, hydrothorax HTN, abscess (MRSA), asthma.LEFT PLEURAL FLUIDA. Pleural, LeftReceived 1100 ml orange cream fluid; prepared 4 cytospins andcell block(A2)(collodion bag) - the cell block was fixed in formalin at 16:44 on 5/30/2023Performed.SatisfactoryB[facility], [facility], [address] [place] [address], [facility], Department of [facility], [address] [place] [address], [facility], Department of Pathology, [address] [place] [address], CQTQ FLUID CULTURE + GRAM [id number] 13:30:56 Test Item Value Reference Range Interpretation Comments CULTURE (BEAKER) (test code = 1095) No growth BODY FLUID CELL COUNT WITH [id number] 17:29:30 Test Item Value Reference Range Interpretation Comments APPEARANCE FLUID (BEAKER) (test Bloody Clear A code = 510) COLOR FLUID (BEAKER) (test code Red Colorless, Straw A = 511) RBC FLUID (BEAKER) (test code = 08120 /cu mm <=1 H 513) TOTAL NUCLEATED [...] EDTA Tube (test code = 2873) U/S, [id number] 16:18:00SAURABH NICOLE MD Laterality?- >LeftLabs to be Ordered:->Body Fluid Culture (w/Gram Stain, C\\T\\S)AFB smear and culture Labs to be Ordered:->CytologyLabs to be Ordered:->Fungal CultureLabs to be Ordered:->Glucose+LDH+ProteinLabs to be Ordered:->Cell CountLabs to be Ordered:->Other (please add comment)Reason for Exam:- >recurrent left pleural effusion [facility] : 1965 Sex: FFINAL REPORT Ultrasound guided left thoracentesis. Clinical History: Left pleural effusion. Modality: Ultrasound. Sedation: None. Child Protection Specialist: Danuta Taylor PA-C Business Objects Report Developer: None.Estimated Blood Loss: 1cc Specimen: 1100 cc [...] ul trasound guided left thoracentesis. Signed: Lee Diaz [facility] Verified Date/Time: 02/04/2023 16:18:02 Reading Location: [facility] P006J Ultrasound Reading Room RAD, CHEST, 1 VIEW, NON [id number] 15:10:00SAURABH NICOLE MD Reason for exam:- >s/p left thoraShould this be performed at the bedside?->YesIn US [facility] : 1965 Sex: FFINAL REPORT Chest, 1 view, 02/04/2023 2:53 PM. History: Post left thoracentesis. Comparison: 01/21/2023. Discussion: The cardiomediastinal silhouette and pulmonary vasculature are withinnormal limits for a portable exam. The lungs are clear without evidence of consolidation or effusion. The soft tissues and osseous structures are intact. IMPRESSION: No evidence of complication post left thoracentesis. Signed: [facility] Verified Date/Time: 02/04/2023 15:10:45 CBC W/PLT COUNT & AUTO [id number] 16:57:36 Test Item Value Reference Range Interpretation [...] (BEAKER) (test code = 2801) HEPATIC FUNCTION [id number] 16:17:22 Test Item Value Reference Range Interpretation [...] (test code = 42 U/L 6-55 347) Filler Shredding Machine Loader ID - BSSpecimen slightly ictericBASIC METABOLIC [id number] 16:17:21 Test Item Value Reference Range Interpretation [...] not appl icable for dialysis patien ts Filler Shredding Machine Loader ID - BSSpecimen slightly ictericPROTHROMBIN TIME/[id number] 16:05:29 Test Item Value Reference Range Interpretation Comments PROTIME (BEAKER) (test code = 18.5 seconds 11.9-14.2 H 759) INR (BEAKER) (test code = 370) 1.58 <=5.90 RECOMMENDED COUMADIN/WARFARIN INR THERAPY RANGESSTANDARD DOSE: 2.0 - 3.0 Includes: PROPHYLAXIS for venous thrombosis, systemic embolization; TREATMENT for venous thrombosis and/or pulmonary embolus.HIGH RISK: Target INR is 2.5-3.5 for patients with mechanical heart valves.BLOOD [id number] 16:00:58 Test Item Value Reference Range Interpretation Comments CULTURE (BEAKER) (test No growth in 5 days code = 1095) The specimen volume collected for this blood culture was below the optimum (10 mL per bottle or 20 mL total). Use of lower volumes may adversely affect recovery and/or detection times of some organisms.BLOOD [id number] 16:00:58 Test Item Value Reference Range Interpretation Comments CULTURE (BEAKER) (test No growth in 5 days code = 1095) The specimen volume collected for this blood culture was below the optimum (10 mL per bottle or 20 mL total). Use of lower volumes may adversely affect recovery and/or detection times of some organisms.[id number] 14:39:22 Medical Cytology Report Case: [id number] Authorizing Provider: Naheed Villalta MD Collected: 01/21/2023 08:44 AM Ordering Location: [address] Received: 01/21/2023 03:34 PM Service Pathologist: Hany Ferrer MD Specimen: Pleural, Left LEFT PLEURAL FLUID (CYTOSPINS AND CELL BLOCK): - NEGATIVE FOR MALIGNANCY BLOOD WITH REACTIVE MESOTHELIAL CELLS AND MIXED CHRONIC INFLAMMATORY CELLS Signing Pathologist Direct Phone Line: [phone] signed by Hany Ferrer MD on 01/24/2023t 2:39 [id number], [id number] y.o. F with h/o HTN, asthma, decompensated [...] was fixed in formalin at 16:38 on 3Performed.SatisfactoryB[facility], [facility] of [facility], [address] [place] [address], [facility], Department of [facility], [address] [place] [address], [facility], Department of Pathology, [address] [place] [address], OANN FLUID CULTURE + GRAM [id number] 14:24:35 Test Item Value Reference Range Interpretation Comments CULTURE (BEAKER) (test code = 1095) No growth CALCIUM, [id number] 05:18:15 Test Item Value Reference Range Interpretation Comments CALCIUM IONIZED (BEAKER) (test 1.08 mmol/L 1.12-1.27 L code = 698) PH, BLOOD (BEAKER) (test code = 7.45 1810) COMPREHENSIVE METABOLIC [id number] 04:54:27 Test Item Value Reference Range Interpretation [...] not appl icable for dialysis patien ts Filler Shredding Machine Loader ID - ADMINSpecimen slightly [id number] 04:53:09 Test Item Value Reference Range Interpretation Comments PHOSPHORUS (BEAKER) (test code = 3.1 mg/dL 2.3-4.7 604) Filler Shredding Machine Loader ID - [id number] 04:53:08 Test Item Value Reference Range Interpretation Comments MAGNESIUM (BEAKER) (test code = 1.8 mg/dL 1.6-2.6 627) Filler Shredding Machine Loader ID - ADMINCBC W/PLT COUNT & AUTO [id number] 04:36:32 Test Item Value Reference Range Interpretation [...] (BEAKER) (test code = 2801) COMPREHENSIVE METABOLIC [id number] 04:44:22 Test Item Value Reference Range Interpretation [...] not appl icable for dialysis patien ts Filler Shredding Machine Loader ID - MMSpecimen slightly ictericCBC W/PLT COUNT [...] PERCENT (BEAKER) (test code = 2801) U/S, [id number] 18:07:00SAURABH NICOLE MD Laterality?- >Left Reason for exam:->SHORTNESS OF BREATH Reason for exam:->ABNORMAL IMAGING RESULT Labs to be Ordered:->Body Fluid Culture (w/Gram Stain, C\\T\\S) Labsto be Ordered:->Cytology Labs to be Ordered:->Glucose+LDH+Protein Labs to be Ordered:->CellCount [facility] : 1965 Sex: FFINAL REPORT Ultrasound guided left-sided thoracentesis. Clinical History: Left pleural effusion. Modality: Ultrasound. Sedation: None. Child Protection Specialist: Carlos Ray PA-C Business Objects Report Developer: None. Estimated Blood Loss: 1cc Specimen: [id number] [...] MDReport Verified Date/Time: 01/21/2023 18:07:57 Reading Location: [address] Ultrasound Reading Room BODY FLUID CELL COUNT WITH [id number] 16:39:03 Test Item Value Reference Range Interpretation [...] = 2873) RAD, CHEST, 1 VIEW, NON [id number] 09:48:00SAURABH NICOLE MD Reason for exam:->s/p left thoracentesisShould this be performed [facility]?->[facility] : 1965 Sex: [...] MDReport Verified Date/Time: 01/21/2023 09:48:04 COMPREHENSIVE METABOLIC [id number] 05:25:17 Test Item Value Reference Range Interpretation [...] not appl icable for dialysis patien ts Filler Shredding Machine Loader ID - mmSpecimen slightly ictericLACTIC ACID, [id number] 05:14:06 Test Item Value Reference Range Interpretation Comments LACTATE BLOOD VENOUS (2) (BEAKER) 1.43 mmol/L 0.50-2.00 (test code = 2872) Filler Shredding Machine Loader ID - mmSpecimen slightly ictericCBC (HEMOGRAM ONLY)2023-01-21 [...] WBC 0-0 (test code = 413) PROTHROMBIN TIME/[id number] 00:49:25 Test Item Value Reference Range Interpretation [...] valves.CT, CHEST WITH IV CONTRAST- PE TEST [id number] 17:44:00SAURABH NICOLE MD Unlisted Reason for Exam - Click Yes and Enter Reason Below->No [facility] 1965 Sex: [...] MDReport Verified Date/Time: 01/20/2023 17:44:58 LACTIC ACID, [id number] 16:27:23 Test Item Value Reference Range Interpretation Comments LACTATE BLOOD VENOUS 2.52 mmol/L 0.50-2.00 H Specime n slightly (2) (BEAKER) (test hemolyzed code = 2872) Filler Shredding Machine Loader ID - ADMINSpecimen slightly ictericRAD, CHEST, 1 VIEW, NON DEPT 2023-01-20 15:36:00SAURABH NICOLE MD Reason for exam:->SHORTNESS OF BREATHReason for exam:->ABNORMAL IMAGING RESULTShould this be performed at the bedside?->Yes [facility] : 1965 Sex: [...] Verified Date/Time: 01/20/2023 15:36:18 HIGH SENSITIVITY TROPONIN [id number] 15:35:54 Test Item Value Reference Range Interpretation Comments HIGH SENSITIVITY TROPONIN I (test 8 pg/ml <=17 code = 7925296) Filler Shredding Machine Loader ID - ADMINThe AUTOMATIC LATHE SETTER STAT High Sensitivity Troponin-I results should be used in conjunction with other diagnostic information such as ECG, clinical observations and information, and patientsymptoms to aid in the diagnosis of ND. HCG, QUANTITATIVE, [id number] 15:35:54 Test Item Value Reference Range Interpretation Comments GONADOTROPIN, CHORIONIC (HCG) QUANT < mIU/mL 0-10 (BEAKER) (test code = 649) Non- Females: <10 mIU/mL Females: Gestation Age Reference Range(mIU/mL) 0.2-1 Week 5-50 1-2 Weeks 50-500 2-3 Weeks 100-5,000 3-4 Weeks 500-10,000 4-5 Weeks 1,000-50,000 5-6 Weeks 10,000-100,000 6-8 Weeks 15,000- 200,000 2-3 Months 10,000-100,000 Filler Shredding Machine Loader ID - ADMINB-TYPE NATRIURETIC FACTOR (BNP)2023-01-20 15:33:30 Test Item Value Reference Range Interpretation Comments B-TYPE NATRIURETIC PEPTIDE (BEAKER) 11 pg/mL 0-100 (test code = 700) Filler Shredding Machine Loader ID - ADMINCOMPREHENSIVE METABOLIC [id number] 15:29:09 Test Item Value Reference Range Interpretation [...] not appl icable for dialysis patien ts Filler Shredding Machine Loader ID - ADMINSpecimen slightly [id number] 15:29:09 Test Item Value Reference Range Interpretation Comments LIPASE (BEAKER) (test code = 749) 61 U/L 8-78 Filler Shredding Machine Loader ID - ADMINSpecimen slightly mbiobeoXKQQQSRJY7225-90-14 15:29:08 Test Item Value Reference Range Interpretation Comments MAGNESIUM (BEAKER) 1.9 mg/dL 1.6-2.6 Specimen markedly (test code = 627) hemolyzed Filler Shredding Machine Loader ID - ADMINLACTIC ACID, [id number] 15:25:00 Test Item Value Reference Range Interpretation Comments LACTATE BLOOD VENOUS 3.00 mmol/L 0.50-2.00 H Specime n markedly (2) (BEAKER) (test hemolyzed code = 2872) Filler Shredding Machine Loader ID - ADMINSpecimen slightly lurzpvnMJVV3820-78-84 15:17:14 Test Item Value Reference Range Interpretation Comments PARTIAL THROMBOPLASTIN TIME 29.9 seconds 22.5-36.0 (BEAKER) (test code = 760) PROTHROMBIN TIME/[id number] 15:16:12 Test Item Value Reference Range Interpretation [...] mechanical heart valves.CBC W/PLT COUNT & AUTO [id number] 15:12:40 Test Item Value Reference Range Interpretation [...] (BEAKER) (test code = 2801) pH, body [id number] 02:37:54 Test Item Value Reference Range Interpretation Comments pH, Body Fluid 7.6 (test code = 2748-2) PH FLUID TYPE Body fluid Reference (test code = range:Reference 68871-8) ranges have not been established on thistype of flu id for this test. EDILBERTO (test code Performing Lab *CHRISTOPHER = EDILBERTO) [facility]/Ness [place] [place] [address] Stephane Jeffers MD, PhD [facility] HospitalCOMPREHENSIVE METABOLIC [id number] 06:51:38 Test Item Value Reference Range Interpretation [...] 1092) DATA TO CALCULA TE ESTIMATED GFR. Filler Shredding Machine Loader ID - MARCOSpecimen slightly [id number] 06:11:49 Test Item Value Reference Range Interpretation Comments PHOSPHORUS (BEAKER) (test code = 3.6 mg/dL 2.3-4.7 604) Filler Shredding Machine Loader ID - [id number] 06:11:48 Test Item Value Reference Range Interpretation Comments MAGNESIUM (BEAKER) (test code = 1.7 mg/dL 1.6-2.6 627) Filler Shredding Machine Loader ID - MIGUELOCBC W/PLT COUNT & AUTO [id number] 05:40:48 Test Item Value Reference Range Interpretation [...] PERCENT (BEAKER) (test code = 2801) CALCIUM, [id number] 05:33:21 Test Item Value Reference Range Interpretation Comments CALCIUM IONIZED (BEAKER) (test 1.05 mmol/L 1.12-1.27 L code = 698) PH, BLOOD (BEAKER) (test code = 7.50 1810) BLOOD [id number] 00:01:46 Test Item Value Reference Range Interpretation Comments CULTURE (BEAKER) (test No growth in 5 days code = 1095) The specimen volume collected for this blood culture was below the optimum (10 mL per bottle or 20 mL total). Use of lower volumes may adversely affect recovery and/or detection times of some organisms.[id number] 19:31:37 Test Item Value Reference Range Interpretation Comments Case Report (test code Medical Cytology = 104) Report Case: [id number] Authorizing Provider: Marisabel Ho MD Collected: 12/30/2022 09:33 AM Ordering Location: [address] Received: 12/30/2022 01:05 PM Service Pathologist: Lilibeth Mello MD Specimen: Pleural, Left DIAGNOSIS (test code = [id number] 3220) FuZzEwMzNcZnRuYmpcdWMx IHtccnRmMVxlcGljMTAyMD BtJK8axHnmiLl8aYgxAZBz fuM8oCThTPxdm0tbRZQ7h0 xaybkiFHGwFHwhYh0hhKJm qOzaYoGeBCKsTVj5lF92MW HgrR8deBBkVDf2YGVwcLQy cyCkCvEhBSRgjWShqAR9EZ LdNM9ckqfiNMteWQfgGJVe xkR0VHMziLAlZ8KbDFXxRR 4ezzjcCDU6NPfbLAUtPSU6 IjGyPYOms3Feoiv4CmCtaW FyZFxwbGFpblxmczIwIExF RlQgUExFVVJBTCBGTFVJRC KpJ8bUF1WJLO6LWVPILZTZ JWyNTRVEW0DHHVopsSdjNZ AgICAtICBORUdBVElWRSBG G6UdIPQZHHdVFG5FHJikBI IgICAgLSAgQmVuaWduIGFu MAAcSIZtmLp5BZJtSNDacN klbNnouULxNEfrntZiWP1f jWHtJVmbyLsxUBA6pFEfBD 8lTXHxxl7yoVFfdV2xtAWv cTF5lH7sUHqnHNO4c6broR YxXHNzdGUxODAwMFxhbnNp XCFkNsuxaahnIYYoDXX0to OzZOIbMQlzJZKiZVzeJq2g aMCiwLzfZuZgSLMzg1illo KBoinabVe8j0zpEYVnJlR7 tKDdZIgyA5vwztXuvKYjMP JsAIi5yL68FZFbgY0nzCEu VJxjgjIfRsN7LTmiNWWbDj W0PDCgrKEhOTMtH4hhKXNv TLbyLXKfIMbvgPHgWXY8eA lms3B6jADvmEXsmIywNwFh FgYhMcPRt4IgEEq1eUffS5 GlYSDpBxV3yASxFIOrNDsl BNJaLJQliaM9vN08RWwnlp M2mLWxg1Eqo11jq347sQ6r yUXtCBM4XJGtZSAwcMLfPN EeZMQ7NQSqqYEaF1scJORi CT5ulchlWBllIYfdNTHuqD G4HTAbcHZyA4OiJQUkROhl AREyflr8XnBtLg5ytIAbfT lgWYjmy6prk2bhvSGhXrz6 ZDQxOfWpCucxWKzvk6Jyv8 cwRQGtqt0mMHB9vZXbxEjm b9A0gPVkLECfmQOlBHHlNW 4mxALwGCYvzK6lglzjRDIc YnJkcmhlYWRccGdicmRyZm 6jlBttGPM0AHkjQ9dgyU4y HiP1GZohV0imnD4jJZd5HY adCQMnxRF7ekT1KNBepSHd Z6BczP6rGBKiQT6ejaw2w6 xcXVK6BYvuMAMjTuB9fcY7 NDBcaGVhZGVyeTcyMFxmb2 74JBG0WvVkNFXfj1GtK1Sk sFsbZ58muDskO02pNZHjlX kgjZ0eyQdieL4qQjPzZwQi JDxxiRcyLK1oUMChM3vepT RiLUOxZGGfG7weBiZsmA6l pBrxEVabuzKmQPGuKmk7FV YihXGeJRZvMga1ORDgRYFd U00dfgldFMH4vM5bd6tzp2 YwTWncVHF7GYJhi99rCPku nmD6GSduAy02SGoxBOX8PP pccGFyfX0= CPT Code(s) (test code x5qhqPLlDKZpnMLmVGSuFQ = 3357) vbkcJxQAScfEOlC2Ufyyxw BGqbPW2pTZ8znAajhOQjeC ZqRNEhIjFfa2qih305vYJz l3ahJGYZtqfdaTw4iTkrH8 2ox4E8CzjhS67bnQWjWVH7 ISGhBFDxcCNbYEFgEFG6CQ IlzJRvV3icMORoFP5ggwzh ARpdQTzjFQTrhFF4VXKpqG NqY8NfEVPuJHqySABgygv3 JfFqAz0oiHIqsDcsFZvfFJ JkXHBsYWluXGZzMjAgODgx FSdqONp5IgP3NHXdzn8= CLINICAL DATA (test e6yolOMaYNBotJFdYRCxKN code = 3355) pldnCeKOKvbDIpU2Sumrew VVayAJ3pFL8joYtjaOLhdK MhFRGgMsEiq8val291gPXm w7lxZOXEearbuJw5pDqlN8 8ae3T5JnxuP29gyXZsVLD5 UJNbSIDxtTFcTDZeWQO4VB IdxECvW9lsRFPjWG8agbuo PNeuXKtxMOMkoON3WFDyiN UsS9TgVVUvZWwoUNMfjqk2 DoRfRb0bdSNkfXlbMKghXA JkXHBsYWluXGZzMjAgNTgg wZ1sHmk+Rlx+o0f1nIOjS2 2eYHQsk23tRC2aWSKtCLCQ XKUKEZUiqtLnc3RviiIeY6 WmPLYiiHhcH3CjqBQ0TYKo L9FaBQOkz6JugPZkPVIgtb UiaEooab13jD6yIJcdFE8q YTifx5ElhqOjRWsgrRrvgp JrBU84LGCimWzxi3kxxvRa UsVbJeSpOi0fPVUgyHafse wou2VmxUC5R2Fzv03aph4j RYE6wO6mNMM3RJ07MCMyDX 8eVRHnx0HuMFDfiRAxpDWf rNMoJH5jmCEnsXFbWf3nSX Lzy5elE7bkaYErqO8guEfs unoVFqbfAR9fHZPsnPezJR I0vaWrn8PqdbExQLQqxc8z MA13gTKuQSVdMEUvEa8iPE J7VQf0IQMyf04xXA0mJNOe KVT7qFNwmOFnNxDmZrClfF gxFGhcpNImshgszm2taA5r ZW01NMBqy2FsHXDgpaOxl5 ifpcEvHAOpPO3tVEPjFXS5 aW4zdOPenB== SPECIMEN SOURCE (test p1wjrNQlHJNasPEqVYVmIG code = 3377) epnyYeOBZiuMPjR0Iipkbp AHfuDA2rCU3clZynwZGolD FrXIRxIwZux5oem736lRMa s2zvNEJGkwqtlSf3nJltV9 4oe3A4CclyV18lvTGwFPV6 CLSwQDIemXQjUXGkOSC9DW VfyAOrO4vlSMGyZL8dctjo HCdfOYulRZSfcWO3FULahS TzW9RdKEHvHPumBQZzzns6 GlPoKu4lyBGaqCjyMBikGA JkXHBsYWluXGZzMjAgTEVG VCBQTEVVUkFMIEZMVUlEXH Bhcn0= GROSS DESCRIPTION (test h4gmtRVqHVOofLAuEGXiDC code = [id number]) lglpCtRNVghALpH4Yodezf EGpaEZ4rCJ4hoTtfsCDlbH PlTEBvOxCye4lyt412eAMk e4nlYMJYnxhnvJp2gDdwB7 4bb4Z1CmuoG17ixXXiEVE6 XOUxSIPkeXKzAKMsRKE4ZX DqxSSzE1moWQZfTL4tqihz KUvrCMaqYLChuGP9YLPydE LpT8NuSZMzMJeaYZTiora1 QnCdHr3mzGHkdYbvJMdjTv ammDuit5BayMZgRYifSTRc EMJhUTovQZUlS2KRMKNlJB K2Tst8YhCwRwVVKVN3DbRa RetwYHHJRZLaHPy6AcA9YH w9IhFVJwBrPZDzIHWcFORt ORQiLM6wKPceyBLrWJwdDh ydCHyeV205SDetCIYoD5La G8BmHPquIVM2ROReTcOdVE VnYR3ZOlNlQSmnYYR7WABn NDv2BUv6QM8KJxWaZILeFi mcPOj0RDEzUIp7CUnhVJ9V JVdmHDs9Acq8EcT8GAb5Tp BcXHQgMiBcXHNzIDMgXFxm qVBlDS9ekUrbCOFmQSPpIZ ghXWBzPcMxLH1tODddfRKt bCwgTGVmdFxwYXJccGFyZF urNnRdUUMxxXWYc2DjHWcz FJAnOCPzsTMYu2IfJUxwxE KnguiejaDuEMMrO2GzxgJj QVNoYLOcnHqxLROwr31vjP BmbHVpZDsgcHJlcGFyZWQg HCWvqYPru4FhlhFgEG0dKG ZaiFztKypxH4yhRMSkGBYq rHftQZsdqxIoQXxwCV3ifR zlYQLcwGvoIbhcK6cem7Sn IYAlqJRlMIjdTEHpto3poR vaFKN8LMTtMmOsUR7zUYH9 RtGoBbNwRiIiy1dqnGyow4 NnxRXnHE42DSVelWNoNYX4 DG1zkCdnSDX1 MICROSCOPIC DESCRIPTION x3uxzGLaQDNamZIdNNMlIA (test code = 3371) kugcQiEUThwCSlS6Dxxsmb GCkcRH9xAV9doDoajSOzeY IqPTZwIgYly7nnw396hAFy l4vqXZVRncyueIo1jYooZ9 9wu6Q2VslmV55enOAmDQX8 TKVpYTHrwZCqJCYaMWG0ZU FtaGXlW7dqZYSuBP0nnnmd LFesNLowXJQfpYE7TURhjA GzW3VtVYIcUEtkWETqapo7 QzOtJc4ujWPuxOusIUhoWD JkXHBsYWluXGZzMjAgUGVy Rt0zvPWwKaizIUAgrKAfZP xwYXJ9 STATEMENT OF ADEQUACY Satisfactory (test code = 2757) Gross assessment was [facility] performed at ([facility], = 2777) Department of Pathology, [address] [place] [address], Technical component was [facility] performed at ([facility], = 2778) Department of Pathology, [address] [place] [address], Professional component [facility] was performed at ([facility], code = 2779) Department of Pathology, [address] [place] [address], [facility] HospitalCYTOLOGY2023-04-24 19:31:37Medical Cytology Report Case: [id number] Authorizing Provider: Marisabel Ho MD Collected: 0 12/30/2022 09:33 AM Ordering Location: [address] Received: 12/30/2022 01:05 PM Service Pathologist: Lilibeth Mello MD Specimen: Pleural, Left LEFT PLEURAL FLUID (CYTOSPINS AND CELL BLOCK):- NEGATIVE FOR MALIGNANCY - Benign and reactive mesothelial cells admixed with acute and chronic infl ammation Signing Pathologist Direct Phone Line: [phone] signed by Lilibeth Mello MD on 01/03/2023 at 7:31 [id number] y.o. F with h/o decompensated CIFUENTES cirrhosis [...] formalin at 13:50 on 12/30/2022 Performed.[facility], Department of Pathology, [address] [place] [address], [facility], Department of Pathology, [address] [place] [address], [facility], Department of Pathology, [address] [place] [address], RRKKHHHUZXRVO METABOLIC PANEL 2023-01-03 07:49:18 Test Item Value [...] 1092) DATA TO CALCULA TE ESTIMATED GFR. Filler Shredding Machine Loader ID - DBOperator ID - MARIOSpecimen slightly [id number] 07:48:02 Test Item Value Reference Range Interpretation Comments MAGNESIUM (BEAKER) (test code = 1.7 mg/dL 1.6-2.6 627) Filler Shredding Machine Loader ID - DBOperator ID - MARIOCOMPREHENSIVE METABOLIC [id number] 06:48:02 Test Item Value Reference Range Interpretation [...] 1092) DATA TO CALCULA TE ESTIMATED GFR. Filler Shredding Machine Loader ID - HENRIQUE GSpecimen slightly [id number] 06:47:07 Test Item Value Reference Range Interpretation Comments MAGNESIUM (BEAKER) (test code = 1.8 mg/dL 1.6-2.6 627) Filler Shredding Machine Loader ID - HENRIQUE GBody fluid culture + gram [id number] 17:31:13 Test Item Value Reference Range Interpretation Comments Result (test code = 6463-4) No growth Lab Interpretation (test code = Normal 76903-1) [facility] HospitalBODY FLUID CULTURE + GRAM [id number] 17:31:13 Test Item Value Reference Range Interpretation Comments CULTURE (BEAKER) (test code = 1095) No growth BODY FLUID CULTURE + GRAM [id number] 17:31:13 Test Item Value Reference Range Interpretation Comments CULTURE (BEAKER) (test code = 1095) No growth COMPREHENSIVE METABOLIC [id number] 06:01:19 Test Item Value Reference Range Interpretation [...] 1092) DATA TO CALCULA TE ESTIMATED GFR. Filler Shredding Machine Loader ID - ADMINSpecimen slightly ictericCALCIUM, [id number] 05:59:45 Test Item Value Reference Range Interpretation Comments CALCIUM IONIZED (BEAKER) (test 1.04 mmol/L 1.12-1.27 L code = 698) PH, BLOOD (BEAKER) (test code = 7.44 1810) [id number] 05:59:10 Test Item Value Reference Range Interpretation Comments MAGNESIUM (BEAKER) (test code = 1.9 mg/dL 1.6-2.6 627) Filler Shredding Machine Loader ID - RAVWQQOSYDFVYBK4862-40-44 05:59:10 Test Item Value Reference Range Interpretation Comments PHOSPHORUS (BEAKER) (test code = 2.6 mg/dL 2.3-4.7 604) Filler Shredding Machine Loader ID - ADMINPROTHROMBIN TIME/[id number] 05:38:46 Test Item Value Reference Range Interpretation [...] mechanical heart valves.CBC W/PLT COUNT & AUTO [id number] 05:34:48 Test Item Value Reference Range Interpretation [...] code = 2801) 2D Echo W/Doppler(CW/PW/Color)2022-12-31 17:29:02Ejection [facility]SBE[facility] ECHO [facility]ARTLAB MKCKESSON [facility] PATTERN 2022-12-31 12:46:54 Test Item Value Reference Range Interpretation Comments EMORY TITER (BEAKER) (test code = :160 1541) EMORY PATTERN (BEAKER) (test code = Homogeneous 1781) ANTI-NUCLEAR ANTIBODY (EMORY)2022-12-31 12:46:31 Test Item Value Reference Range Interpretation Comments ANTI-NUCLEAR ANTIBODY (EMORY) (BEAKER) Positive Negative A (test code = 418) Test performed by IFA method.MISCELLANEOUS LAB [id number] 09:11:47 Test Item Value Reference Range Interpretation Comments SCAN RESULT (test code = SEE SCANNED RESULTS [id number]) Protein, Total, Peritoneal [id number] 08:59:02PROTEIN, TOTAL, PERITONEAL FLUID12/31/2022 8:59 AM CDTfitkit DIAGNOSTIC [facility] PasoAlbumin, body [id number] 08:58:38Albumin, Fluid12/31/2022 8:58 AM CDTSVETERANS AFF[facility] LABORATORYReference Range: No Normals Assay performance has not been validated for this type of specimen.[facility] HospitalProtein, Total, Pleural Fpgku6028-24-22 08:56:30PROTEIN, TOTAL, PLEURAL FLUID12/31/2022 8:56 AM CDTfitkit DIAGNOSTIC [facility] El PasoLactate Dehydrogenase (LD), Pleural Fgyua0298-22-65 08:56:06Lactate Dehydrogenase (LD), Pleural Fluid12/31/2022 8:56 AM CDTfitkit DIAGNOSTIC [facility] PasoGlucose Pleural [id number] 08:55:45Glucose, Pleural Fluid 12/31/2022 8:55 AM CDTfitkit DIAGNOSTIC [facility] Albumin Pleural [id number] 08:54:47Albumin, Pleural Fluid12/31/2022 8:54 AM CDTfitkit DIAGNOSTIC [facility] PasoMISCELLANEOUS LAB [id number] 08:54:04 Test Item Value Reference Range Interpretation Comments SCAN RESULT (test code = SEE SCANNED RESULTS [id number]) Bilirubin, Qfggs9576-75-92 08:54:04Scan Rcakdu5412/31/2022 8:54 AM [facility] HospitalCOMPREHENSIVE METABOLIC [id number] 05:33:20 Test Item Value Reference Range Interpretation [...] 1092) DATA TO CALCULA TE ESTIMATED GFR. Filler Shredding Machine Loader ID - marioSpecimen slightly zafdvesQRBQKEVMA5966-59-07 05:31:31 Test Item Value Reference Range Interpretation Comments MAGNESIUM (BEAKER) (test code = 1.8 mg/dL 1.6-2.6 627) Filler Shredding Machine Loader ID - bpswdOSRGAMGRAE2758-50-74 05:31:31 Test Item Value Reference Range Interpretation Comments PHOSPHORUS (BEAKER) (test code = 2.4 mg/dL 2.3-4.7 604) Filler Shredding Machine Loader ID - marioPROTHROMBIN TIME/[id number] 05:24:04 Test Item Value Reference Range Interpretation [...] mechanical heart valves.CBC W/PLT COUNT & AUTO [id number] 05:23:22 Test Item Value Reference Range Interpretation [...] PERCENT (BEAKER) (test code = 2801) CALCIUM, [id number] 05:07:52 Test Item Value Reference Range Interpretation Comments CALCIUM IONIZED (BEAKER) (test 1.05 mmol/L 1.12-1.27 L code = 698) PH, BLOOD (BEAKER) (test code = 7.45 1810) Amylase Peritoneal [id number] 18:35:20 Test Item Value Reference Range Interpretation [...] specimen).This test has been modified from the highway painter helper's instructions and its performance characteristics were determined by [facility]. The laboratory is regulated under CLIA as qualified to perform high-complexity testing. This test has not been cleared or approved by the U.S. Food and Drug Administration. The reference intervals and other method performance specifications are unavailable for amylase in peritoneal fluid. Comparison of this result with the blood amylase is recommended. [facility] Center[facility]YL[facility] PERITONEAL [id number] 18:35:20 Test Item Value Reference Range Interpretation Comments AMYLASE, PERITONEAL FLUID (BEAKER) 17 (test code = 7191513) Amylase activity in peritoneal fluids of non-pancreatic origin is often less than or equal to the amylase activity in blood, whereas elevated amylase activity has been reported in fluid of pancreatic origin (five-folds or higher compared to contemporaneously collected blood specimen).This test has been modified from the highway painter helper's instructions and its performance characteristics were determined by [facility]. The laboratory is regulated under CLIA as qualified to perform high-complexity testing. This test has not been cleared or approved by the U.S. Food and Drug Administration. The reference intervals and other method performance specifications are unavailable for amylase in peritoneal fluid. Comparison of this result with the blood amylase is recommended.[id number] 18:13:56 Test Item Value Reference Range Interpretation Comments FERRITIN (BEAKER) (test code = 273.41 ng/mL 361) Filler Shredding Machine Loader ID - ADMINHEPATITIS B SURFACE [id number] 17:41:49 Test Item Value Reference Range Interpretation Comments HEPATITIS B SURFACE ANTIBODY < mIU/mL <8.0 (BEAKER) (test code = 647) Filler Shredding Machine Loader ID - ADMINHEPATITIS A ANTIBODY, [id number] 17:41:49 Test Item Value Reference Range Interpretation Comments HEPATITIS A IGG ANTIBODY (BEAKER) Reactive Nonreactive A (test code = 2797) Filler Shredding Machine Loader ID - ADMINALPHA FETOPROTEIN (AFP), TUMOR [id number] 17:40:44 Test Item Value Reference Range Interpretation Comments ALPHA-FETOPROTEIN (BEAKER) (test 3.2 ng/mL <10.0 code = 1094) Filler Shredding Machine Loader ID - ADMINHEPATITIS B CORE ANTIBODY, [id number] 17:40:44 Test Item Value Reference Range Interpretation Comments HEPATITIS B CORE TOTAL ANTIBODY Nonreactive Nonreactive (BEAKER) (test code = 497) Filler Shredding Machine Loader ID - ADMINHEPATITIS B SURFACE [id number] 17:40:43 Test Item Value Reference Range Interpretation Comments HEPATITIS B SURFACE ANTIGEN (2) Nonreactive Nonreactive (BEAKER) (test code = 2585) Specimen is considered negative for HBsAg.HEPATITIS C [id number] 17:39:02 Test Item Value Reference Range Interpretation Comments HEPATITIS C ANTIBODY (BEAKER) Nonreactive Nonreactive (test code = 367) Filler Shredding Machine Loader ID - ADMINIRON, TIBC, % SAT. (WITHOUT FERRITIN)2022-12-30 17:19:01 Test Item Value Reference Range Interpretation Comments IRON (BEAKER) (test code = 547) 81.0 ug/dL 40.0-160.0 TOTAL IRON BINDING CAPACITY 108 ug/dL 250-450 L (BEAKER) (test code = 769) IRON % SATURATION (2) (BEAKER) 75 % 20-55 H (test code = 2590) Filler Shredding Machine Loader ID - ADMINCOMPREHENSIVE METABOLIC [id number] 16:25:30 Test Item Value Reference Range Interpretation [...] 1092) DATA TO CALCULA TE ESTIMATED GFR. Filler Shredding Machine Loader ID - ADMINSpecimen moderately ictericLACTATE DEHYDROGENASE (LDH) 2022-12-30 16:17:54 Test Item Value Reference Range Interpretation Comments LACTATE DEHYDROGENASE (BEAKER) (test 246 U/L 125-220 H code = 635) Filler Shredding Machine Loader ID - [id number] 16:17:53 Test Item Value Reference Range Interpretation Comments MAGNESIUM (BEAKER) (test code = 1.8 mg/dL 1.6-2.6 627) Filler Shredding Machine Loader ID - [id number] 16:17:53 Test Item Value Reference Range Interpretation Comments PHOSPHORUS (BEAKER) (test code = 2.7 mg/dL 2.3-4.7 604) Filler Shredding Machine Loader ID - [id number] 16:17:14 Test Item Value Reference Range Interpretation Comments ALPHA-1 ANTITRYPSIN (BEAKER) 61.00 mg/dL 90.00-200.00 L (test code = 502) Filler Shredding Machine Loader ID - ADMINPROTHROMBIN TIME/[id number] 16:09:26 Test Item Value Reference Range Interpretation [...] mechanical heart valves.CBC W/PLT COUNT & AUTO [id number] 16:06:15 Test Item Value Reference Range Interpretation [...] PERCENT (BEAKER) (test code = 2801) CALCIUM, [id number] 16:03:36 Test Item Value Reference Range Interpretation Comments CALCIUM IONIZED (BEAKER) (test 1.07 mmol/L 1.12-1.27 L code = 698) PH, BLOOD (BEAKER) (test code = 7.38 1810) RAD, CHEST, 1 VIEW, NON [id number] 15:04:00SAURABH NICOLE MD Reason for exam:->post left thoracentesis R/O pneumothoraxShould this beperformed at the bedside?->Yes [facility] 1965 Sex: [...] 12/30/2022 15:04:41 Reading Location: [facility] Radiology Reading Room U/S, [id number] 14:59:00SAURABH NICOLE MD Labs to be ordered:->Body Fluid Culture (w/Gram Stain, C\\T\\S) Labs to be ordered:->Cell Count Reason for exam:->abdominal pain, cirrhosis Should this be performed at the bedside?->No [facility] : 1965 Sex: UFINAL REPORT Ultrasound guided paracentesis. Clinical History: Ascites. Sedation: None. Child Protection Specialist: Danuta Taylor PA-C Business Objects Report Developer: None. Estimated Blood Loss: < 1 cc. [...] was achieved with 2% lidocaine, a 5 Italian one-step catheter was advanced into the peritoneal cavity under ultrasound guidance. After completion of drainage, the catheter was removed. There was no evidence of complication. Impression:Successful ultrasound guided paracentesis. Signed: Lee Diaz MDReport Verified Date/Time: 12/30/2022 14:59:31 Reading Location: [address] Ultrasound Reading Room Body fluid cell count with [id number] 14:42:21 Test Item Value Reference Range Interpretation Comments Appearance (test code Hazy Clear A = 9335-1) Color (test code = [place] Colorless, Straw A 6824-7) RBCs (test code = 10956 See_Comment H [Automate d 53814-8) message] The system which generated this result [...] See_Comment H [Automat ed (test code = 26600-7) messag e] The system which generated this result transmit joanna reference range : <=5 /cu mm. The reference range was not used to interpret this result as normal/abnormal . Adjusted lining 63 See_Comment H [Automated cells/Others (test message] The code = 46641-4) system which generated this result transmit joanna reference range : <=1 /cu mm. The reference range was not used to interpret this result as normal/abnormal . % Segs (test code = 29 % 50420-0) % Lymphs (test code = 39 % 30641-5) % Monos (test code = 31 % 68433-7) % Eos (test code = 1 % 28486-6) % Baso (test code = 0 % 95463-3) Container Body Fluid Sterile Vial (test code = 2873) Lab Interpretation Abnormal (test code = 39447-6) [facility] HospitalBODY FLUID CELL COUNT WITH [id number] 14:42:21 Test Item Value Reference Range Interpretation Comments APPEARANCE FLUID (BEAKER) (test Hazy Clear A code = 510) COLOR FLUID (BEAKER) (test code [place] Colorless, Straw A = 511) RBC FLUID (BEAKER) (test code = 74023 /cu mm <=1 H 513) TOTAL NUCLEATED [...] Sterile Vial (test code = 2873) CT, [id number] 12:35:00SAURABH NICOLE MD Unlisted Reason for Exam - Click Yes and Enter Reason Below->NoProtocol Please Specify:->Standard ProtocolWill this procedure require oral contrast?->No [facility] : 1965 Sex: [...] 12:35 PM BODY FLUID CELL COUNT WITH [id number] 11:08:18 Test Item Value Reference Range Interpretation Comments APPEARANCE FLUID (BEAKER) (test Cloudy Clear A code = 510) COLOR FLUID (BEAKER) (test code Red Colorless, Straw A = 511) RBC FLUID (BEAKER) (test code = 58855 /cu mm <=1 H 513) TOTAL NUCLEATED [...] Vial (test code = 2873) Protein, random [id number] 22:24:47 Test Item Value Reference Range Interpretation Comments Protein, Urine (test code 47 mg/dL 0-14 H = 2888-6) EDILBERTO (test code = EDILBERTO) Filler Shredding Machine Loader ID - ADMIN Lab Interpretation (test Abnormal code = 12229-8) [facility] HospitalPROTEIN, RANDOM [id number] 22:24:47 Test Item Value Reference Range Interpretation Comments PROTEIN, URINE (BEAKER) (test code = 47 mg/dL 0-14 H 1569) F[employer] Shredding Machine Loader ID - ADMINCreatinine, random skqgb0063-34-00 22:24:46 Test Item Value Reference Range Interpretation Comments Creatinine, Ur 176.5 mg/dL (test code = 2161-8) EDILBERTO (test code = Reference Range: No EDILBERTO) NormalsOperator ID - ADMIN [facility] HospitalCREATININE, RANDOM [id number] 22:24:46 Test Item Value Reference Range Interpretation Comments CREATININE URINE (BEAKER) (test 176.5 mg/dL code = 375) Reference Range: No NormalsOperator ID - ADMINUrinalysis w/Usnryliwrha2308-23-85 22:11:30 Test Item Value Reference Range Interpretation Comments Color, UA (test code Yellow = 5778-6) Clarity, UA (test Hazy code = 5767-9) Specific Hext, UA 1.046 1.001-1.035 H (test code = 5811-5) pH, UA (test code = 6.5 5.0-8.0 5803-2) Protein, UA (test 70 mg/dL Negative A code = 14497-3) Glucose, UA (test Negative Negative code = 365) Ketones, UA (test Negative Negative code = 2514-8) Bilirubin, UA (test Negative Negative code = 22640-0) Blood, UA (test code Large Negative A = 00220-3) Nitrite, UA (test Negative Negative code = 5802-4) Leukocytes, UA (test Negative Negative code = 5799-2) Urobilinogen, UA 0.2 0.2-1.0 (test code = 72389-1) RBC, UA (test code = 138 See_Comment [Autom ated 97237-3) message] The system which generated this result [...] . Bacteria, UA (test Rare code = 89818-0) Mucus (test code = Few 8247-9) Squam Epithel, UA 3 See_Comment [Automate d (test code = 59246-2) venkat e] The system which generated this result transmit joanna reference range : /HPF. The reference range was not used to interpret this result as normal/abnormal . Specimen Source (test Urine, Clean code = 2795) Catch EDILBERTO (test code = EDILBERTO) Filler Shredding Machine Loader ID - [auto]Filler Shredding Machine Loader ID - tech Lab Interpretation Abnormal (test code = 23414-2) [facility] HospitalURINALYSIS W/ [id number] 22:11:30 Test Item Value Reference Range Interpretation [...] (test code Urine, Clean Catch = 2795) Filler Shredding Machine Loader ID - [auto]Filler Shredding Machine Loader ID - iexoUHWHLROXELVML2589-25-18 17:38:31 Test Item Value Reference Range Interpretation Comments PROCALCITONIN (BEAKER) (test code = < ng/mL <0.05 3036) SEPSIS RISK (ng/mL)Low: 0.05-0.50Intermediate: 0.51-2.00High: >=2.01LACTIC ACID, [id number] 17:22:42 Test Item Value Reference Range Interpretation Comments LACTATE BLOOD VENOUS 2.07 mmol/L 0.50-2.00 H Specime n slightly (2) (BEAKER) (test hemolyzed code = 2872) Filler Shredding Machine Loader ID - BSSpecimen slightly ictericRAD, CHEST, 1 VIEW, NON [id number] 16:10:00SAURABH NICOLE MD Reason for exam:->evaluate left pleural effusionShould this be performedat the bedside?->Yes [facility] : 1965 Sex: [...] 31 pg/mL 0-100 (test code = 700) Filler Shredding Machine Loader ID - BSCOMPREHENSIVE METABOLIC [id number] 14:18:45 Test Item Value Reference Range Interpretation [...] not appl icable for dialysis patien ts Filler Shredding Machine Loader ID - ADMINSpecimen slightly ictericPROTHROMBIN TIME/HND4974-50-43 13:44:11 Test Item Value Reference Range Interpretation Comments PROTIME (BEAKER) (test code = 20.8 seconds 11.9-14.2 H 759) INR (BEAKER) (test code = 370) 1.84 <=5.90 RECOMMENDED COUMADIN/WARFARIN INR THERAPY RANGESSTANDARD DOSE: 2.0 - 3.0 Includes: PROPHYLAXIS for venous thrombosis, systemic embolization; TREATMENT for venous thrombosis and/or pulmonary embolus.HIGH RISK: Target INR is 2.5-3.5 for patients with mechanical heart valves.[id number] 13:43:55 Test Item Value Reference Range Interpretation Comments MAGNESIUM (BEAKER) (test code = 1.8 mg/dL 1.6-2.6 627) Filler Shredding Machine Loader ID - ADMINCBC W/PLT COUNT & AUTO DKHGOBDGZCYW5276-12-16 13:21:51 Test Item Value Reference Range Interpretation [...] PERCENT (BEAKER) (test code = 2801) Prepare [id number] 23:54:00 Test Item Value Reference Range Interpretation Comments Unit ABO (test code = 6661998) A Pos UNIT NUMBER (test code = [id number] 934-0) Status (test code = 3905288) TX_TIMEINCHART Blood Bank Product (test code FFP = 2263) PRODUCT CODE (test code = V1281R03 933-2) [facility] HospitalPre[facility] [id number] 23:54:00 Test Item Value Reference Range Interpretation Comments Unit ABO (test code = 5420982) A Pos UNIT NUMBER (test code = [id number] 934-0) Status (test code = 2557855) TX_TIMEINCHART Blood Bank Product (test code FFP = 2263) PRODUCT CODE (test code = P1110A32 933-2) [facility] HospitalPre[facility] [id number] 23:54:00 Test Item Value Reference Range Interpretation Comments Unit ABO (test code = 7226512) A Pos UNIT NUMBER (test code = [id number] 934-0) Status (test code = 2035472) TX_TIMEINCHART Blood Bank Product (test code FFP = 2263) PRODUCT CODE (test code = I4638T37 933-2) [facility] HospitalFine Needle Aspirate by Fihcwbkwp3952-01-19 09:58:30 Test Item Value Reference Range Interpretation Comments Case Report (test code Medical Cytology = 104) Report Case: [id number] Authorizing Provider: Arcenio Lazo Collected: 11/30/2022 08:48 AM Ordering Location: [address] Received: 11/30/2022 03:09 PM Service Pathologist: Simon Corona MD Specimen: Lymph Node, liver, marguerite-portal lymph node biopsy via FNA DIAGNOSIS (test code = v0xaxYYyLMVba8nkSIOwoE 3220) FuZzEwMzNcZnRuYmpcdWMx IHtccnRmMVxlcGljMTAyMD TtTL6izYcaoCh4vBfxSSQu buQ8xUGtEGmhz4uvWLS4r9 dujgsvQDJlGTxhHc7jwSJk oOwmGnHvLXPzYSm6lS29GA LpbD0qdYWsISz9XLUxjXWe drShFyUnKCOrpQRstQR8EW YxGZ9lckmmARjxYMuoYCYx fkL0AFGmvXRyI3IgSMZfFN 1bhlkfHZE8OYhxXMVsUOE0 BgNfKMPbx3Fksuz2RoLgdQ FyZFxwbGFpblxmczIwIExZ CDKIAL8MCLXsEMjNSxIJUL BDAjjsLE8RLHVVEVJWFS9X Q9ymLzcJUYJWZKZoY3qUQ6 KLJN6BQONHZJHXXDpPUQWD S5SJHFprgCMoEOWgXM5zYk JYENFCMnNtEp8DJS8RKPtC GxABELMMPMbHFj3kbTJxZF QsTY5rJ2GWFxRiZYvJRVvD GNDnEKwZN1OEVdrwFMX0c6 xydGYxXHNzdGUxODAwMFxh bnNpXGRlZmxhbmcxMDMzXG R6ezAiKCPjWPfhHULnXSag Nv7bjUApsOpsJqUsKZAkq3 yfexKDaeeieRv5w1ipSAKw QgG2lITsCIpwP0vpfcWnsM QaZIBfYPv7gZ86URIxgK9x vSHxSFmqzdAnQpL6HWdmLA MqClJ4NHRujYOiGFQkA1ad ZWQwXGdyZWVuMFxibHVlMC M8bHcip1B0mREogKGiuCjo MvGbKuNrNbOKh6YgFBe7cQ eeW6KyNQQzQfM2zDSpSFUn NYdlZUAlQIOaroA6nK67BR lmbuJ1aUIgy6Bjk22rq867 xA8meVGfUEB9VVZqOXIndY KoOIXjZHL5YROjnDPfH3eh JLPcHC4kpoaePXxpXOnmAQ KwiRJ3QVKvbLAiO6XdBUPv TPalEVCrnrs2IjJoIn1vaE TsyLwiNNzjl0ziw9jmwNSs Avo2BWOgSbQuIiokUOqdc5 Typ8jkIFZoik0rMPP3gJTw cQpyi7E7yHByURHmiBFqXX XuWN1yzHNrTBTybH6fwebn XHBnYnJkcmhlYWRccGdicm JgJk5dmIqzDPW9KSnxV4sg aM9rYoY5ZMphB7ravG3mKC m8MCspSCUwhUZ0pnP1QDKj cKNcQ1OglM6rPTRcNJ2ryu p1s0pyJQH3VKjnRYEaKjJ7 dfT0ZZVtuTQhONMdgTioNG wcb242SCZ6NnLtQDWat6Hg X3IkyVmsM25ccGdtF55oMM FubFcutS4kyGhzdO5bVfFs HzAlZSqinUkbYN9jUHGiH6 ihgGMwVNFaQWEfC9zeXbJo dR2wgAicQAkpptNyDGYsAs w4TLMjuHOfTPXyVhl7VLUk BCJdN58pnoodHCR2lB1es8 itc1BaLWgbGJV9LOUbc80h APmaceW3BZjpJa61UHdaGW H6MVuwKWU7jN== CPT Code(s) (test code x8kbnFRlSUVdgOQzWQWgAW = 3357) bsddMuKHUuhZTiQ9Ehxtyg MWdnWQ2zWY8ezLfzzFTsjS DjFGDuRiDbh7uez312dSUq q4dlXDVGfbzyjUp9vMgzZ1 7sv3H4HaikH28rtESrODG0 KKWsIXJbuBRyDHKbWKF8KY IoyMEnV0xiYULuZW1ebksf ZVcqRQioUDTokXH5HTWdvK YlY7BxIKXiEBgbBSVimom2 XfRhYe9uwZVwlKonXNbrWQ JkXHBsYWluXGZzMjAgODgx VkHeDDu1UsN1STWlxf6= CLINICAL DATA (test u2bqhXWuZZPacINiFXBhGN code = 335) deumXbXJGieVLyK4Xauptf RPzdUN4oEB7nzZlbeQNvrO JyNSBtFeOcq1npw810lETu y2zsIQHNadmdgNg7oWazD1 2ju5L6VsqdE23luBIvMUX1 RKJfMGVjsYBjJMEqXVK3QE VtiCCoX2dmCNBcAR8qhxzg AUnvCHyeEHYevCC2KXLpdC WjM7IfCJXcQSejKJWgefn5 QwOsJm0fbYWinRqeOTvqVX JkXHBsYWluXGZzMjAgNTgg fT5bZjz+Rlx+w6o2sLNVUE ZORUFenpRpd8Owlstkf6tl IABkPQOehwUuJPJ1viEKM2 aay7f2rKH7iCXgubIyFCHx SAMlcF1cUQ8oHSGXVMOtJT luIHggNCBkYXlzIGFuZCB3 QHKqPc40rlHnaT5dzWI6BK Fou3tztVraIFBuHJCly29q FGSbEEZvlyGteG4xQKS6l2 DurPyuT5Lnn8ddWH8ypG5r mULsjFHyjLEui09piX9nH3 mkLcyojLv2peI3gjJau4Gw cbCxOVH0nqNYQ5fEGxLni9 LfNHyJOc7rlotoCHY4 SPECIMEN SOURCE (test o8sabDFnKUPvrDVoKQWiUI code = 3377) llblMfBCAlqXJdR2Lvlmqr FCweXX9fVP0vkWbviAGqbU DhLVYiUkDoo1rve120tHCt u6gaMQMNjktckGq8wCzoF3 5nu8E6YumaR36joBSyNQX8 ZNOoODDhbKLdXWReOEN5DK IxaEVcX8kkSHRdVB7vghoz WQsuIXehUMJkhLL4QUZkwI PjM2IaYSYrNFozHVGlucw3 VyYaEm6rfWKjgCwrGNgxKT JkXHBsYWluXGZzMjAgTFlN HGktXh8LGNhiRIkFMLQdHQ BCPcogMA9NUKEPUEQBW8PY WSBGTkFccGFyfQ== GROSS DESCRIPTION (test e4xfvYSlEVWhpTFDJMOnST code = 4703938365) HmGR3ctBppcWc2oCusVVHd xjN2bUCfURirn2unQZU1h0 jpymWJVpubWXYoQH0dGEgz MWWyOR7eMeCeRQOhMrBkRT BhcGVydzEyMjQwXHBhcGVy jBE1JCBpFO8rryujIVviIR hnJPPwhfK5GHKkgABwA4Jo NGXpTI9ikxneWGX9VOJRFx efZi6rsZSctHwbIpYxWaXa YXJzZXQwXGZuaWwgQXJpYW e4fK5LFbyoMWW9YQSGSddk AkjnfYomj8LweUAiRLVsMN xcaWQgNTEwMDAgXFxkYiBP HmTrDlJ8FFIfSfE9BtE8VA v5BZOMMWDyLWEtMrKiWLN3 LGd6XWWcYB0jHSgzuXKwLV fcLboyHLvaG795EAvfMIWb Y6VlO7WoIJvzJrDkMJgaZJ SzBIJoPFsmQHXvE8XUMDKc BZAmOOE4UCKqTOv7ZGtiR7 KILREhZWDrBhwqRwQ4BtV2 RSq8THPBEt9iPfc5CIv8JJ R9WMX9DKl8HHfczAZyBHaw u9EvQzIfLRIzJSuwymI5BY VfulUuBBtmoUysnY0yDoWz NmJCSgEOaA2bmLVDo0FbEA CrgfXEPlrhBQPwUE4BXAEm XZpgFPCbUuZzlNQpF4msWD LnQ90hr0SGx9CaVX0TMLz3 nmGbyxznsO7lHWQskeRqJP pcZnMyMCBSZWNlaXZlZCAx USOvfXBiuI2eS8i4r1NpL3 ggcmVkOyBwcmVwYXJlZCA0 LKU1iL2brXtnzmuwY5PzwY IgoW2wjsLsDVZsVRxaHGfq FGQgs0RiVNQeRVJzRYUzil Sve1QaUCbsdmKnfQOoMCgt NSBvbiAzLzIxLzIwMjMpXH BhciANClxzYTMwXGVwaWNY k7KqGHEOHdbrjYdzNgKvcU LiUqL6NOQhaTIsFAK0WC6f gOnkOPSoF8UjE4ZmezJ0GP DkycBHBcrfMBKpRJ9DIUVs MjIgDQp9 MICROSCOPIC DESCRIPTION k6kzhZZfIWYjmYBnBMGiOA (test code = 3371) obtfAgCAEtnNUaF9Hsbabd TSzjWY3uYA4ecTbinYMrvB ChLINvUqFeg3vkq833hKBc t3sxFTEKoefaoIw4nAmvR1 3uu6N2GdomP87lgWHvUVO5 YBEoGEDjkASdHSXrMFJ6RK JwiBBjQ3jhEIOvMQ2dyifo HIpiANwaCZHqaKF3RTCzqC KdN3EsDRNmTGxqVYSfulp7 HkDsQz0veCCweUleDZqoGA JkXHBsYWluXGZzMjAgUGVy Ae0nvNHcAkmrKPEfmPPwLS xwYXJ9 Gross assessment was [facility] performed at ([facility], = 2777) Department of Pathology, [address] [place] [address], Technical component was [facility] performed at ([facility], = 2778) Department of Pathology, [address] [place] [address], Professional component [facility] was performed at ([facility], code = 2779) Department of Pathology, [address] [place], [place] [address], [facility] HospitalFine Needle Aspirate by Qprkgbckc9176-90-18 09:58:30 Test Item Value Reference Range Interpretation Comments Case Report (test code Medical Cytology = 104) Report Case: [id number] Authorizing Provider: Arcenio Lazo Collected: 11/30/2022 08:48 AM Ordering Location: [address] Received: 11/30/2022 03:09 PM Service Pathologist: Simon Corona MD Specimen: Lymph Node, liver, marguerite-portal lymph node biopsy via FNA DIAGNOSIS (test code = [id number] 3220) FuZzEwMzNcZnRuYmpcdWMx IHtccnRmMVxlcGljMTAyMD AdFC3siVauqQv2qPqxXHLk kvJ1vESzGHucu1jvUWR5l9 uuxmmmUQUuGCbfJq7anXLc uNjbWqBkHZFdHUb6qE93IG BcrD6peZBoRYk9SARloIUl edNnAfJkPLJufPBhmEK8BD PfNB0ympqoTFxmATrhDRXj skE1NLZbtBIyX6LlPBYgAH 1hblgyUDB1NUnbJRRiGSI4 RfUfQFScz2Oeaoj3VvZodD FyZFxwbGFpblxmczIwIExZ PMVKLC4MGQOxJFoPIvSTXK LZKkzxBW4OXFDZPDIGIX3Y P9kbPdmJIRMMREGqN2qCD4 KVIC7DKZDNGSIITXcQSBJE K3AUEYhykBKwHQEhHI6oZj ZATGLQOqVxRo0MJZ3SEXbO HoHPCTAIGZnCGo4phWAhGL XnCW8eK1INPwCzGQsDMSwM GUAwRByHO4VSGbkdKEJ9p8 xydGYxXHNzdGUxODAwMFxh bnNpXGRlZmxhbmcxMDMzXG R9mvCvCDRlGUmuFZUtUUvu Cg7jzTPcmUgzMhPrYPNup4 imovPRudrkoVu4k4vzIDPx XuJ5qOAoTRteK5mgykXwnE TwSOQaGYk3cK19KNUsyT7a jOReSKgscyRoEfE1QAilIT OiGyD8DMOlpSLsJMOvQ1gg ZWQwXGdyZWVuMFxibHVlMC X5gDzxg6Y9cIUhmAVhqEqa HuVxGyOfQxYEb6UjTRs6yC lnY3GlWOYyFnE4iZPcVMKa FNrkRVMeYWBmovA7eW22NP guegJ0uYWzj3Msf31iy600 cQ8uyRLlKHM9CYRoDXNvrM OjLBKvORG2GLSdpKPcB1us VNUuAW9rvfnfTBwgDFylRE RcvPT6EELqjUKbL4YiMIFz LWwuGSXrcit2DbAkEv8qbL BhfBjkYSsfl0hun2sbqQMk Sld6NEMnLaNrPdolWYvyl4 Ajh6xlHWWewr7pNUT4yVYx fFrzz9Z4hROwWIIyrGKoHB VuFM2baHOjTKXxzO7qwcpd XHBnYnJkcmhlYWRccGdicm DcMv0kdLryACX3UMtnU4bi mK8yBaJ8WOmjO7kcbO2xJK u3YJkgGQErdVV8tuQ2IZDi nRRxE7PmvN0rDPWcNR1tpo i3q5gyKQL5ZTigTRMbIaN2 gfN4VEZspESkDHUfhDblNS ejg036IYZ3ZjDlXVQla5St G3OzhDdbQ80doAmgC65jWF OofSjvhK5kcCaioV2pFaKf IhImPVacfEeeKQ9tUXEmO7 mfzJZjEABlSMEqZ1kxLgVp vJ3vcLduOYpogbZiFKApAm l5ZBStbJXvEIEtDgm5WAJq VAPiN53oxvfvWGU4yM7pb4 aou7PiXSpzEWU2VHBtd80c PRuubxK2BQxeQv78NOhiDH T1LOlyMZW1dH== CPT Code(s) (test code c0xshWZpBIWogPToIIOqCF = 3357) slzhUgUKIjpAObD3Tmpwvw NFrlCH0pKZ6plJwkuUDnoN XkBOTrDeRrx8toh184zYFh y3nlJFBRdeqkqHm2fWztP0 5dj0V9NqrvV61gdMYkHCY9 IXJcDPCuvKDnPKTmEHK7NZ QldZShJ2lvWLDaKJ4ewdvi PJwfEBpiMPJbcLD6RPOdrA LbZ4HdXZHhPApjECGemld8 WdQbHk2vpTNwaCdmCJddIO JkXHBsYWluXGZzMjAgODgx WiCjDMz0VbQ8KTVpcg8= CLINICAL DATA (test e5qttPVlGTTdhAZcBLKaME code = 3350) fhlgKbZIUxwTXgQ6Euhkor SOsvGS0cXR6keJipbSEycJ VwVQTzRwDcc6ekr914jYEv o2xwVUEVvclbgAj9jLklK9 8wz2W3YjdpY63ljMXcSTQ8 CKXrCJGokXUtPLQsGIH7PK XjeGCpF1tgPMDjZK2auhqh DXhuMFlrRRMscEP0OODcsE VqG0ZqYMDlAPydQEVhwnu8 QtAuNo8glNVxjBaqRQioVV JkXHBsYWluXGZzMjAgNTgg tO3vZhc+Rlx+f9v7fJDAHN JVWUWflgRtj3Wnjmear1cd LXGeZQImfmTqEFS0qnLAZ0 dqy4y9eST2cCWevgKtCCMj WAUeoD5fKY9uOXTVMDBnIT luIHggNCBkYXlzIGFuZCB3 NZVuEt37ppVcaB0mwLF8WX Acg1hcaJglCXIwADPth34e IMDqQSNxolCgdJ1tRYK8k7 WmkTcgU4Xgm8jlNF1xiJ4t rAYtcTKzuNFqc64wvI6oF4 kdDzptpEb8tvC1pyBsn1Gd uwVjTRI1cfNHS9pCQnHeu6 KpDXpWEv3yswpgZSK8 SPECIMEN SOURCE (test u0sqmAYmMUHpuLWfSPOmTB code = 3377) weyvMyBXJysPUvF4Muuapf AJnlVK9aBO6uiCrzhWBqzF ZoLOIfHoFjz4irs319pWNr v4nsJDJQreakvAy9lTniQ6 2he1B9WkccL37enXWqTBI3 AWZbMEOgpGDqABHwVLD6SS WzxAMqV3fpGOCkAC4uwlvw QBnnUAbiUVHxcHR6KGOguJ DkR1UkXFFtKXseKZYmsjt1 OeMdPr0ilZGvcNmuMIynKT JkXHBsYWluXGZzMjAgTFlN ONqrGt5QIJhaVGwKDXSrGX HAMunaAO3STXOEIDXDI9SF WSBGTkFccGFyfQ== GROSS DESCRIPTION (test i4pvtSCuGHFdnSOJBZVnWA code = [id number]) JuIZ0qxGplrRf5zXutKUIy mnM6wPOuIGutc9bfLWJ4b0 hxbyKJStgkUGRkJS5fUStu OJOaHI8jKeOuWPJbYzIzVO BhcGVydzEyMjQwXHBhcGVy yUR4ZHAnBR2efdrzEPhxZH vnSAIpliH0KWPmwLZpO8Mb ZJQyLS9gwzwtYBU2PRPKGy daHb5lzBJukNnaZwAgIaAt YXJzZXQwXGZuaWwgQXJpYW f3dI5TXaadXIT9WUOKJpyv PupgmRivk9VgsMEdUYDzMC xcaWQgNTEwMDAgXFxkYiBP NjSwRhD8PESgPtC3YnS1RL x4MDKGTMIdLFIgSyEzFTT6 ONy9VIQbLF4dUVeskZQrEJ kwGuywSVuwF320KZrgTOEm F3OrT7PpRKolGgZbSRajDS HqIKHtOUsoCHYwG1YQVKYa JDUtITI3HIGfXTy5HXwfW0 LWFSZiRLAoPtjlAeE6NxI3 QTb2BQAVDh6mTlo3GBv8GN F2QWG0YEd2ZDlwuGNvIAcb u6DoIzOoWSAkGFtqqnY1PQ IptfBdSBrdyHrddQ4nOrFu SdOVNaXUtZ1elAFBv2FiGC VnwoLLIsdgCJGpUC9NWCVl GPjnHEPzTlIhqZLuH3xtIY TyJ76yu0VGv9YhEO6KTMl2 gsSqeurwgV6vKWWibwVvYS pcZnMyMCBSZWNlaXZlZCAx RMUgmTIwwU7xD2s9u0AoR7 ggcmVkOyBwcmVwYXJlZCA0 GGC8xM5zaPfdomnaC2ZojY IfyI2hsnSeMNTwBZyxOAds UCKow3EbCHByNLJkQJWnnh Sko3AdENhryjQqaKDeFXoj NSBvbiAzLzIxLzIwMjMpXH BhciANClxzYTMwXGVwaWNY p4IkIGLCAuilvHsmYnQdfJ GoDdR3ANOuxKIoFQI8WU9t rXzmRJUaY5SwL8FhovT6AV YfzqVXIsjlICMnEU3ESXMi MjIgDQp9 MICROSCOPIC DESCRIPTION b9islXClLCYfgWTsRSScFB (test code = 3371) xgbmVqJPQkqEPqL4Wdbvgm PFjmBK2jBM8qiCwxiBWmiQ EeRCOfDpMir7wyv527gHAd c7mcWCGGwafnqWx0qCkeF0 6kl8G8LlxkW68kxGPxZTL9 IDDiMDBptBRpSREoYRZ5VY HpfZCbP0fdDNLgIK6spayt XBycVSzeYBTgnXJ2BJBfbM FeW6KoRQZsCGmaXNSqspz0 CiPdYl9unBLqfLcrNMlgYV JkXHBsYWluXGZzMjAgUGVy Qt4wrKKsSzeeJMKhgOZaOQ xwYXJ9 Gross assessment was [facility] performed at ([facility], = 2777) Department of Pathology, [address] [place] [address], Technical component was [facility] performed at ([facility], = 8740) Department of Pathology, [address] [place] [address], Professional component [facility] was performed at ([facility], code = 2779) Department of Pathology, [address] [place] [address], [facility] HospitalFine Needle Aspirate by [id number] 09:58:30 Test Item Value Reference Range Interpretation Comments Case Report (test code Medical Cytology = 104) Report Case: [id number] Authorizing Provider: Arcenio Lazo Collected: 11/30/2022 08:48 AM Ordering Location: [address] Received: 11/30/2022 03:09 PM Service Pathologist: Simon Corona MD Specimen: Lymph Node, liver, marguerite-portal lymph node biopsy via FNA DIAGNOSIS (test code = [id number] 3220) FuZzEwMzNcZnRuYmpcdWMx IHtccnRmMVxlcGljMTAyMD LlCA7kqHdkjXv5oWavISWy snE0mXQsKSfpl6htKAL1c0 umpensHBHqIGiwFx8weLAw bTgkKtEoEXEzBRn4oI58XY UkvL4dqDSeGOq6CXGuwBWk fyBdGzNhGSJcuWBesAQ3EA MhZO8twhfqGSxiGHjjQMQf bcF4YTJdjVWuJ2VaJLAfVF 6tdllxHCM5YNcvYLRjOOF7 QmMaUOZjx2Teuaz4AqSkdK FyZFxwbGFpblxmczIwIExZ QINEJB6TSZFvURgQAtECSV CJAfwyDS3LCYMOQCJOGP1B M5xdTcvRATNCTTBcT6vMT0 NXWK4BMQLCVCIXBQaDZPOM G9TZPMavcAMuOZTsKB7kCa LPGCGWJjOsCx4UGP0CBJhF CxDLWIHRJSaWKj3ajXZpQJ OuFW2hR9RBDtZnVHyEFZgF AUYaGSpDT7REUimtORK7n3 xydGYxXHNzdGUxODAwMFxh bnNpXGRlZmxhbmcxMDMzXG V5yoWoJQHbLQilNHQqEBzt Td6lfKNmgJljNxFmRDYyj3 fncoKUmjsjsBe8d3lwEODi LbF9yGYyJTgiE6rxetHqlE JqEFUwFDv8fH42FZNlmS6y wQNwCLdxrhQzYvN5VQkyLU EfKnT8BXUyoGXcPKLjQ5dm ZWQwXGdyZWVuMFxibHVlMC Y8xRypj8R8lOJpqOQuhFue EjKdZxAbPdSMr8VxSBe0vU bdB0GfKTIrVcH1oCAlJMPw VCwbDQDjHYMkioS1bF47LW vblaL6bGMac4Wrm33fp201 rA8svZXkGUL5EKIdSPIyuF FpSHFgLQX4OMYxaICyF7fk TVIaGW3qjykeMCfuFWubKC RukBQ3FGXmrQJpL4BdACQo UYnmLTEuirc3DtIrDs5ooC ZimDqcYGvhp9txo9qwyZHp Pnh3XMQjYkOvCrunPJlhj1 Jql5mkAOYjsy3iXYL8sZBn fGhay0H9nTRbXDRygAEnAM KeCM7gmIXaZIFxhN2qqxrl XHBnYnJkcmhlYWRccGdicm HpEs2hzVoqQSA7DRqzY7yr zQ9fLjQ6VJduD6rrjP5zWS v0SMdsJUFixAW0yoV9LWSg sPStN9OmvK2uUIYeCS4zlc k3v4ckPFY5ZDluFLAkEeP5 waL1MHDvpVDuNCIzoZjhEX dli313RIN9LxNhCUMmo8Fn N6XocByxM67atAtdR72gRF TbjQyltI9jxAwweK3uWrXn YiHaRQukfWxjBW9oMVXoR6 nhpVGaBGJdWLDuZ4exNgLj tR8cnIrwCCvoadLqOIPrWf g8GQRjtWQwZQKtFha9MEOu QPErN05leflpKBJ4kP4sz0 yir3TqUElzBCQ8GHVzr69m DXwrlkV1LBliWw44RBnhUO S0RHxuWRQ9sM== CPT Code(s) (test code q9smpCFmPVZfaOIaYBDtWI = 3350) pcybSnMIVtgFUjP4Zpnzea ZVcbOQ7uGQ5jxJcavZJooP BnEWExDqVru8evw454qEZj t6lyYVQKtceahYp6sWadO7 0hs6V0SizrG75giTKhKDJ4 VWOnODDmsNVrAJMmMAT0JM RlqYTvS3tsLQBkSJ7icuoc QEqgDHdgGDFufBY4VQOjrN RxC2BoBTEoNDpvYQGfihb5 KqUsPf0miQAkdQnrMJkkNQ JkXHBsYWluXGZzMjAgODgx BvOzFPx5JkU6SOXhju2= CLINICAL DATA (test g3rumMSzROUbvTPgMRCmPG code = 3355) aqgkQaDEFxdPEpU1Bprtvb EYavZB0wJD3wzPtdnPPwrA TrEKYoUwTak7idr145mELb s9nfKHIVmhepvDi1zZpxX1 4hj3V5RnhjM54ysTKyHZU5 FXByNCIelULsNPLzLFO0XD BgoAJnC7liEIAlEJ4utgrd BDutQOyuJCJboLB1UJKbbZ IkU5RkDIVzYCbhFHDcjmx0 RuGaBj9uhPCpxHweAEsgXP JkXHBsYWluXGZzMjAgNTgg oT7cKlp+Rlx+t3d3rVMJYB ZQBKRirgXvn0Awixehw5di IKHfOOHmugByWAT7gdGIV6 foq3u5lTU8xBCbarIhDJUb YOYrbK8ySG1xTUWVWXSjVM luIHggNCBkYXlzIGFuZCB3 GWBzUr60enHmcX2bxGZ4KG Igl5ybwTzfUYVkZWHnn12e IKZpDGXyheYbvO8jZKN5h4 EhzQqeS7Ntq3eyQZ0hpB1u lJKthDLbxFUva14frD0bI5 woDckxfKb9lgB7jeNuv2Ua wgJsMWY9taUWY1oFGrCcq1 KvVYtDQs8escyjJRZ3 SPECIMEN SOURCE (test l7sewELdCDRngBSjFARaLT code = 3377) eqllPpWJIrlUSyB4Lcpgoq DAzoZX6gXC9wuStqfQMkqA NpJLIcMeZkb3jnz918vMWq b9adWLISfpdygKf2tBdkA6 4ja1Q3UhyxX99zxIUaUDN7 QWCaTZNlbTPyPSVjTQB0JF XdaXTqE6krAUPyFP4zpytf MEcsEZcpVHXvzIM5ZZCowD GtU4DfISXmEAwoPGKouuc2 EoFvTb4nnYJvhBdsVOutOG JkXHBsYWluXGZzMjAgTFlN FNzbRd6SOMyqJFiDZHUlWB NVZzwyEZ3OVKQZKFEOG2QS WSBGTkFccGFyfQ== GROSS DESCRIPTION (test b8lcaXRjCWIkuGJURLNrNZ code = [id number]) YqZL8skJkbcOw1nQooKTOv jnX9sPGvBDmcl6uoXLS2l1 qpyyUTDvfcCMGdUK6cXHqq SQVyRH1qOdEgVHUnQrGnFR BhcGVydzEyMjQwXHBhcGVy eJA8GTQfAB0qzdabRGzuPP qcZVUluyA2MHCfwBBoL4Pj NOXzCL2posydFJN8MGUVRg gsUr6hoZYisQooBvWmIcIf YXJzZXQwXGZuaWwgQXJpYW e4mE5ENatsYXT5LOJSCays DyvpqHkio9ZlaKHlSGUwZQ xcaWQgNTEwMDAgXFxkYiBP IiNiSrR2HECdPjV9TiS6BK b0UORNPEUiGJDgCaSbSXI0 KAo8HEMdOV0wNZfseORdFC woKhgeUYznK625ENbmINKd I1GtS9WpDRehBpBtKOzdTC MeQTIdBHyxRTMpN5YOKPFd TFTpTOJ0VVBgRZm8YGxuU7 LKBSFnKOGxYcjqXcR4MmW6 LTa6VEEYHa3cCbm1SOl8VW T3EHR6OEx4QMtalDJwXIyx e8RrUxKjOFFbLSnyktX3HT HaotHsLJpafUiavX2jAiCq MxTXRfCJeO3bxAPKb6UjWX XyevKVRtypKDSlYU5RXLFt XFuxSHHhGtPfsRClP0jpQF CvM50tx7FDv2YxCK0CTYl6 anIgunswcD4aNGXeviHcQS pcZnMyMCBSZWNlaXZlZCAx YREydEHwkF8kF0h1l3HaL5 ggcmVkOyBwcmVwYXJlZCA0 ZSL5iL1zbLptmvtxZ6OknJ LwhC7xegEjQRCeEZovWAqd SJFpu2WfRQSfXLMeHIVuzz Dyb8LqUMvxoxYwwRTiKIdc NSBvbiAzLzIxLzIwMjMpXH BhciANClxzYTMwXGVwaWNY y6LyNEOIZrityZerZmFsdU DsCoD2GWDhwRWeHEB6OL2r xXbyFUJfM4XrH9KxciZ9TD EsvbOYRpzhGHRrTT6YJOUh MjIgDQp9 MICROSCOPIC DESCRIPTION b6rmaEYhSZPnjYOeOGHaJJ (test code = 3371) vlzeDbNTEpvAEoO3Cogvuk IVvvZK4vAT1sgNkfmWGaiC DqPXKcXyFio8hta851vHWa i4ddMYCGtljqhZg2dDtqG9 3mc0E5VhmlR33rsTNfADQ9 SUToNISavHEdPWSxHKO1VX ObgTOwT3udXXQcZF4heval VRbrOClyJVDwvAP0NLDapU XsW9QyNSGhGUlwPGWyomq7 GfAlQe4xdNDqjLqeRFbyUA JkXHBsYWluXGZzMjAgUGVy Tr1vaUZlKylwZAYkkWWyWM xwYXJ9 Gross assessment was [facility] performed at (test [facility], = 4215) Department of Pathology, [address] [place] [address] 71081, Technical component was [facility] performed at ([facility], = 1931) Department of Pathology, [address] [place], [place] [id number], Professional component [facility] was performed at ([facility], code = 2779) Department of Pathology, [address] [place] [address], [facility] HospitalFINE NEEDLE ASPIRATION BY [id number] 09:58:30Medical Cytology Report Case: [id number] Authorizing Provider: Arcenio Lazo Collected: 11/30/2022 08:48 AM Ordering Location: [address] Received: 11/30/2022 03:09 PM Service Pathologist: Simon Corona MD Specimen: Lymph Node, liver, marguerite-portal lymph node biopsy via FNA LYMPH NODE, LIVER MARGUERITE-PORTAL, BIOPSY VIA FNA (CYTOSPINS AND CELL BLOCK): - NEGATIVE FOR MALIGNANT CELLS. - SCANT LYMPHOID TISSUE. Signing Pathologist Direct Phone Line: [phone] signed by Simon Corona MD on 12/01/2022 at 9:58 [id number], [id number] y.o. F with CIFUENTES cirrhosis, who presented to OSH with upper back pain and RLQ pain x 4 days and was found to have colitis and concern for cholecystitis/choledocholithiasis on imaging, thus transferred to [facility] for HLOC. LYMPH NODE, LIVER, MARGUERITE-PORTAL BIOPSY FNAA. Lymph NodeReceived 15 mls in cytorich red; prepared 4 cytospins, cell block (A2) (cell block placed in formalin at 15:35 on 11/30/2022)Performed.[facility], Department of Pathology, [address] [place] [address]755, [facility], [facility] of [facility], [address] [place] [address], [facility], Department of [facility]ology, [address] [place] [id number], HYSSQZREMCMZT METABOLIC [id number] 05:09:17 Test Item Value Reference Range Interpretation [...] not appl icable for dialysis patien ts [employer] Shredding Machine Loader HAROON Nathalia ANGEL WC (HEMOGRAM ONLY)2022-12-01 04:18:12 Test Item Value Reference [...] 0-0 (test code = 413) Fine Needle [id number] 17:00:24 Test Item Value Reference Range Interpretation Comments Cytology (test code = See Separate Report 2629) [facility] HospitalFin [facility]le [id number] 17:00:24 Test Item Value Reference Range Interpretation Comments Cytology (test code = See Separate Report 2629) [facility] Needle [id number] 17:00:24 Test Item Value Reference Range Interpretation Comments Cytology (test code = See Separate Report 2629) [facility] HospitalFINE NEEDLE ASPIRATE (FNA) [id number] 17:00:24 Test Item Value Reference Range Interpretation Comments CYTOLOGY RESULT POINTER See Separate Report (BEAKER) (test code = 2629) FL, FLUORO, NON-SPECIFIC, UP TO 1 [id number] 09:10:00Reason for exam:->[facility]ith[facility] 1965 Sex: FAn imaging unit was utilized for this procedure. No radiologist interpretation was requested. Refer to the EMR for findings. Refer to PACS for any patient radiation dose information.COMPREHENSIVE METABOLIC [id number] 04:50:44 Test Item Value Reference Range Interpretation [...] not appl icable for dialysis patien ts [employer] Shredding Machine Loader ID - MARCOPROTHROMBIN TIME/[id number] 04:28:12 Test Item Value Reference Range Interpretation [...] WBC 0-0 (test code = 413) PROTHROMBIN TIME/[id number] 23:20:55 Test Item Value Reference Range Interpretation [...] for dialysis patien ts HEPATOBILIARY IMAGING W/ [id number] 12:22:00Unlisted Reason for Exam - Click Yes and Enter Reason Below->YesUnlisted Reason for Exam->?chronic cholecystitis with dilated GBReason for exam:->?chronic cholecystitis with dilated [facility] : 1965 Sex: FFINAL REPORT PROCEDURE: HEPATOBILIARY SCAN with Sincalide Infusion CPT CODE: 89646 INDICATION: 57-year-old female, chronic cholecystitis with dilated [...] response to sincalide stimulation. Signed: Marcos Muller MDRepun[facility] Verified Date/Time: 11/29/2022 12:22 :52 CBC (HEMOGRAM [...] 0-0 (test code = 413) COMPREHENSIVE METABOLIC [id number] 01:32:49 Test Item Value Reference Range Interpretation [...] not appl icable for dialysis patien ts [employer] Shredding Machine Loader ID - DBCBC (HEMOGRAM ONLY)2022-11-28 01:07:42 Test [...] 0-0 H (test code = 413) Urine [id number] 10:01:17 Test Item Value Reference Range Interpretation Comments Result (test code = See comment 6463-4) EDILBERTO (test code = EDILBERTO) <10,000 col/mL Gram negative rods<10,000 col/mL skin eduardo [facility] HospitalUrine [id number] 10:01:17 Test Item Value Reference Range Interpretation Comments Result (test code = See comment 6463-4) EDILBERTO (test code = EDILBERTO) <10,000 col/mL Gram negative rods<10,000 col/mL skin eduardo [facility] HospitalUrine [id number] 10:01:17 Test Item Value Reference Range Interpretation Comments Result (test code = See comment 6463-4) EDILBERTO (test code = EDILBERTO) <10,000 col/mL Gram negative rods<10,000 col/mL skin eduardo [facility] HospitalCOMPREHENSIVE METABOLIC [id number] 06:17:40 Test Item Value Reference Range Interpretation [...] not appl icable for dialysis patien ts F[employer] Shredding Machine Loader ID - MARCOSpecimen slightly ictericCBC (HEMOGRAM ONLY)2022-11-27 [...] 0-0 (test code = 413) MR, ABDOMEN, [id number] 10:22:00Unlisted Reason for Exam - Click Yes and Enter Reason Below->YesUnlisted Reason for Exam->evaluate for choledocholithiasis [facility] : 1965 Sex: [...] [place] Verified Date/Time: 11/26/2022 10:22:09 Reading Location: [facility] B1 C013X Ortho Consult Reading Room Electronically signed by: MANISH PANDA M.D. on11/26/2022 10:22 AMBASIC METABOLIC [id number] 06:05:16 Test Item Value Reference Range Interpretation [...] not appl icable for dialysis patien ts [employer] Shredding Machine Loader ID - Angela slightly ictericHEPATIC FUNCTION [id number] 06:04:28 Test Item Value Reference Range Interpretation [...] (test code = 33 U/L 6-55 347) [employer] Shredding Machine Loader ID - Angela slightly ictericPROTHROMBIN TIME/[id number] 05:52:20 Test Item Value Reference Range Interpretation [...] mechanical heart valves.CBC W/PLT COUNT & AUTO [id number] 05:33:16 Test Item Value Reference Range Interpretation [...] (BEAKER) (test code = 2801) U/S, ABDOMINAL, [id number] 17:23:00Abdomen limited area? Add comment if clarification is needed.->Right upper quadrant Reason for exam:- >cholecystitis possible choledocolithiasis [facility] : 1965 Sex: [...] and small volume ascites. Signed: Goldie Albright [facility] Verified Date/Time: 11/25/2022 17:23:59 Urinalysis w/Microscopic + Reflex to [id number] 11:12:01 Test Item Value Reference Range Interpretation Comments Color, UA (test code Brown = 5778-6) Clarity, UA (test Cloudy code = 5767-9) Specific Hext, UA 1.050 1.001-1.035 H (test code = 5811-5) pH, UA (test code = 6.0 5.0-8.0 5803-2) Protein, UA (test 200 mg/dL Negative A code = 54963-4) Glucose, UA (test Negative Negative code = 365) Ketones, UA (test Trace Negative A code = 2514-8) Bilirubin, UA (test Negative Negative code = 06427-4) Blood, UA (test code Large Negative A = 21302-2) Nitrite, UA (test Negative Negative code = 5802-4) Leukocytes, UA (test Small Negative A code = 5799-2) Urobilinogen, UA 2 0.2-1.0 H (test code = 04405-4) RBC, UA (test code = See_Comment [Autom ated 72132-0) message] The system which generated this result [...] . Bacteria, UA (test Many code = 80239-7) Mucus (test code = Rare 8247-9) Squam Epithel, UA 10 See_Comment [Automate d (test code = 04126-6) messag e] The system which generated this result transmit joanna reference range : /HPF. The reference range was not used to interpret this result as normal/abnormal . Specimen Source (test code = 2795) EDILBERTO (test code = EDILBERTO) Filler Shredding Machine Loader ID - tech Lab Interpretation Abnormal (test code = 35168-0) [facility] HospitalUrinalysis w/Microscopic + Reflex to Culture 2022-11-25 11:12:01 Test Item Value Reference Range Interpretation Comments Color, UA (test code Brown = 5778-6) Clarity, UA (test Cloudy code = 5767-9) Specific Hext, UA 1.050 1.001-1.035 H (test code = 5811-5) pH, UA (test code = 6.0 5.0-8.0 5803-2) Protein, UA (test 200 mg/dL Negative A code = 61303-5) Glucose, UA (test Negative Negative code = 365) Ketones, UA (test Trace Negative A code = 2514-8) Bilirubin, UA (test Negative Negative code = 54566-4) Blood, UA (test code Large Negative A = 00104-4) Nitrite, UA (test Negative Negative code = 5802-4) Leukocytes, UA (test Small Negative A code = 5799-2) Urobilinogen, UA 2 0.2-1.0 H (test code = 21171-6) RBC, UA (test code = See_Comment [Autom ated 15564-2) message] The system which generated this result [...] . Bacteria, UA (test Many code = 52093-9) Mucus (test code = Rare 8247-9) Squam Epithel, UA 10 See_Comment [Automate d (test code = 93522-9) messag e] The system which generated this result transmit joanna reference range : /HPF. The reference range was not used to interpret this result as normal/abnormal . Specimen Source (test code = 2795) EDILBERTO (test code = EDILBERTO) Filler Shredding Machine Loader ID - tech Lab Interpretation Abnormal (test code = 60729-9) [facility] HospitalUrinalysis w/Microscopic + Reflex to Culture 2022-11-25 11:12:01 Test Item Value Reference Range Interpretation Comments Color, UA (test code Brown = 5778-6) Clarity, UA (test Cloudy code = 5767-9) Specific Hext, UA 1.050 1.001-1.035 H (test code = 5811-5) pH, UA (test code = 6.0 5.0-8.0 5803-2) Protein, UA (test 200 mg/dL Negative A code = 90040-7) Glucose, UA (test Negative Negative code = 365) Ketones, UA (test Trace Negative A code = 2514-8) Bilirubin, UA (test Negative Negative code = 39159-8) Blood, UA (test code Large Negative A = 63564-8) Nitrite, UA (test Negative Negative code = 5802-4) Leukocytes, UA (test Small Negative A code = 5799-2) Urobilinogen, UA 2 0.2-1.0 H (test code = 88642-0) RBC, UA (test code = See_Comment [Autom ated 06996-8) message] The system which generated this result [...] . Bacteria, UA (test Many code = 30418-5) Mucus (test code = Rare 8247-9) Squam Epithel, UA 10 See_Comment [Automate d (test code = 76657-6) messag e] The system which generated this result transmit joanna reference range : /HPF. The reference range was not used to interpret this result as normal/abnormal . Specimen Source (test code = 2795) EDILBERTO (test code = EDILBERTO) Filler Shredding Machine Loader ID - tech Lab Interpretation Abnormal (test code = 88723-6) [facility] HospitalURINALYSIS W/ REFLEX URINE [id number] 11:12:01 Test Item Value Reference Range Interpretation [...] = 516) SOURCE(BEAKER) (test code = 2795) Filler Shredding Machine Loader ID - techBILIRUBIN, [id number] 10:18:18 Test Item Value Reference Range Interpretation Comments BILIRUBIN DIRECT (BEAKER) (test 1.3 mg/dL 0.1-0.5 H code = 706) Filler Shredding Machine Loader ID - HENRIQUE GPROTHROMBIN TIME/[id number] 07:19:55 Test Item Value Reference Range Interpretation [...] not appl icable for dialysis patien ts F[employer] Shredding Machine Loader ID - HENRIQUE GSpecimen slightly [id number] 07:09:53 Test Item Value Reference Range Interpretation Comments PHOSPHORUS (BEAKER) (test code = 3.8 mg/dL 2.3-4.7 604) Filler Shredding Machine Loader ID - HENRIQUE [id number] 07:09:53 Test Item Value Reference Range Interpretation Comments MAGNESIUM (BEAKER) (test code = 1.7 mg/dL 1.6-2.6 627) Filler Shredding Machine Loader ID - HENRIQUE GCBC W/PLT COUNT & AUTO [id number] 06:52:55 Test Item Value Reference Range Interpretation [...]
[2023-07-17 01:35] LABS: Absolute Lymphocytes (CBC) 0.7 K/uL (0.7-4.9); Hematocrit 25.8 % (36.0-45.0); Lymphocytes % 9.8 % (15.3-44.8); MCV 99.9 fL (80-100); MPV 8.7 fL (7.6-11.3); Platelets 83 thou/uL (152-406); RBC Red Blood Cell Count 2.58 M/uL (3.86-4.86)
[2023-07-17 01:36] LABS: Protime INR 1.72
[2023-07-17 02:00] LABS: Albumin 2.5 g/dL (3.4-5.0); Bilirubin Direct 0.4 mg/dL (0-0.2); Bilirubin Indirect, Calculated 0.7 mg/dL (0.2-0.8); Bilirubin Total 1.1 mg/dL (0.2-1.0); Magnesium 2.2 mg/dL (1.6-2.4); Potassium 4.4 mEq/L (3.5-5.1); Troponin High Sensitivity 5.5 pg/mL (<58.9)
[2023-07-17] MEDS ORDERED: ONDANSETRON 4 MG/2 ML VIAL ONE (03:36)
[2023-07-17] MEDS ORDERED: NA CHLORIDE 0.9% 250 ML ONE (03:36)
--- NOTE | 2023-07-17 04:02 | ER ---
Nurse's Notes [facility] Name: Christelle Paredes Age: 58 yrs Sex: Female : 1965 Arrival Date: 07/16/2023 Time: 21:46 Bed 7 Private MD: Diagnosis: Acute kidney failure, unspecified;Pleural effusion, not elsewhere classified Presentation: 07/16 22:51 Chief complaint: Patient states: Shortness of breath all day, had a left side vc1 thoracentesis on . I am on the liver transplant list. Ebola Screen: Patient negative for fever greater than or equal to 101.5 degrees Fahrenheit, and additional compatible Ebola Virus Disease symptoms Patient denies exposure to infectious person. Patient denies travel to an Ebola-affected area in the 21 days before illness onset. No symptoms or risks identified at this time. Initial Sepsis Screen: Does the patient meet any 2 criteria? No. Patient's initial sepsis screen is negative. Does the patient have a suspected source of infection? No. Patient's initial sepsis screen is negative. Risk Assessment: Do you want to hurt yourself or someone else? Patient reports no desire to harm self or others. Onset of symptoms was July 16, 2023. 22:51 Method Of Arrival: Wheelchair vc1 22:51 Acuity: FRANKLIN 3 vc1 Triage Assessment: 22:54 General: Appears in no apparent distress. uncomfortable, Behavior is calm, cooperative, vc1 appropriate for age. Pain: Denies pain. EENT: No deficits noted. No signs and/or symptoms were reported regarding the EENT system. Neuro: Level of Consciousness is awake, alert, obeys commands, Oriented to person, place, time, situation. Cardiovascular: No deficits noted. Respiratory: Reports shortness of breath at rest Onset: The symptoms/episode began/occurred this morning, the patient has mild shortness of breath. Historical: - Allergies: 22:52 Meclizine; vc1 22:52 Vancomycin; vc1 - PMHx: 22:52 Asthma; cirrhosis of liver; kidney issues with IV contrast; vc1 - PSHx: 22:52 common bile duct stent-EGD; vc1 - Immunization history:: Client reports receiving the Aquilino \T\ Aquilino single-dose vaccine. - Social history:: Smoking status: Patient denies any tobacco usage or history of. Screenin/05 02:38 [facility] ED Fall Risk Assessment (Adult) History of falling in the last 3 months, vc1 including since admission No falls in past 3 months (0 pts) Confusion or Disorientation No (0 pts) Intoxicated or Sedated No (0 pts) Impaired Gait No (0 pts) Mobility Assist Device Used No (0 pt) Altered Elimination No (0 pt) Score/Fall Risk Level 0 - 2 = Low Risk Oriented to surroundings, Maintained a safe environment, Educated pt \T\ family on fall prevention, incl call for assistance when getting out of bed. Abuse screen: Denies threats or abuse. Nutritional screening: No deficits noted. Tuberculosis screening: No symptoms or risk factors identified. Assessment: 02:39 Reassessment: No changes from previously documented assessment. Patient and/or family vc1 updated on plan of care and expected duration. Pain level reassessed. Patient is alert, oriented x 3, equal unlabored respirations, skin warm/dry/pink. Cardiovascular: Rhythm is sinus rhythm. Respiratory: Airway is patent Respiratory effort is even, unlabored, Breath sounds are clear. 04:41 Reassessment: sisterSamina, . vc1 Vital Signs: 07/16 22:51 BP 102 / 65; Pulse 99; Resp 20; Temp 98.8; Pulse Ox 100% ; vc1 07/17 01:15 BP 107 / 58; Pulse 102; Resp 17; Pulse Ox 100% on R/A; me1 02:00 BP 101 / 62; Pulse 95; Resp 22; Pulse Ox 100% ; vc1 03:00 BP 98 / 54; Pulse 91; Resp 15; Pulse Ox 100% ; vc1 04:00 BP 77 / 52; Pulse 84; Resp 18; Pulse Ox 100% ; la4 04:39 BP 108 / 59; Pulse 86; Resp 20; Pulse Ox 99% on R/A; la4 04:00 pt requesting midodrine la4 [place] Coma Score: 04:00 Eye Response: spontaneous(4). Motor Response: obeys commands(6). Verbal Response: la4 oriented(5). Total: 15. ED Course: 07/16 21:48 Patient arrived in ED. jj6 22:02 Davonte Bond PA is PHCP. cp 22:02 Benedicto Ortega MD is Attending Physician. cp 22:52 Triage completed. vc1 22:54 Arm band placed on right wrist. vc1 07/17 01:02 XRAY Chest (1 view) In Process Unspecified. EDMS 01:30 Inserted saline lock: 22 gauge in right antecubital area, using aseptic technique. me1 01:31 COVID-19 SARS RT PCR Sent. me1 01:31 Lactate w/ 2H reflex if indic. Sent. me1 01:31 Basic Metabolic Panel Sent. me1 01:31 CBC with Diff Sent. me1 01:31 LFT's Sent. me1 01:31 Magnesium Sent. me1 01:31 NT PRO-BNP Sent. me1 01:31 PT-INR Sent. me1 01:31 Troponin HS Sent. me1 02:38 Patient has correct armband on for positive identification. Bed in low position. Client vc1 placed on continuous cardiac and pulse oximetry monitoring. NIBP monitoring applied. 03:58 Initiated transfer with Kenia at [facility]. rv1 05:[address] Mccall to [facility] Rm 915. rv1 Administered Medications: 03:12 Not Given (Physician Discretion): foyoglpdhf03 mg IVP once; give over 2 minutes cp 03:40 Drug: Ondansetron IVP 4 mg IVP once; over 2 minutes Route: IVP; Site: right antecubital;vc1 03:40 Drug: NS 0.9% IV 250 ml IV at bolus once Route: IV; Rate: bolus; Site: right vc1 antecubital; 04:37 Drug: midodrine 7.5 mg Feeding Tube once {Note: pt took own home med.} Route: Feeding la4 Tube; 05:13 Drug: Albumin IVPB 25 grams 100 ml IVPB once; (Note: Albumin 25% concentration) Volume: la4 100 ml; Route: IVPB; Site: left antecubital; 05:14 Drug: HYDROmorphone IVP 1 mg IVP once Route: IVP; Site: right antecubital; la4 05:51 Drug: Albumin IVPB 25 grams 100 ml IVPB once; (Note: Albumin 25% concentration) Volume: la4 100 ml; Route: IVPB; Site: right antecubital; Medication: 02:39 VIS not applicable for this client. vc1 Outcome: 04:01 ER care complete, transfer ordered by MD. ha 07:07 Patient left the ED. iw Signatures: Dispatcher [employer] Emily Aldana, RN RN iw Davonte Bond PA PA cp Jeffries, Jennifer jj6 Brenda Richards RN RN vc1 Milly Batista rv1 Inés Lim RN RN me1 Dara Torres RN RN la4 Corrections: (The following items were deleted from the chart) 02:56 02:55 BP 101 / 62; Pulse 88bpm; Resp 20bpm; Pulse Ox 100%; la4 la4
--- NOTE | 2023-07-17 04:02 | EDPHYS ---
Physician Documentation [facility] Name: Christelle Paredes Age: 58 yrs Sex: Female : 1965 Arrival Date: 07/16/2023 Time: 21:46 Bed 7 Private MD: ED Physician Benedicto Ortega HPI: 07/16 22:35 This 58 yrs old Female presents to ER via Wheelchair with complaints of GAGGING WHEN cp BREATHING IN, Shortness Of Breath, Chest Pain. 22:35 The patient has shortness of breath at rest. cp 22:35 Onset: The symptoms/episode began/occurred today. Duration: The symptoms are cp continuous, and are steadily getting worse. Associated signs and symptoms: Pertinent positives: chest pain. Historical: - Allergies: 22:52 Meclizine; vc1 22:52 Vancomycin; vc1 - PMHx: 22:52 Asthma; cirrhosis of liver; kidney issues with IV contrast; vc1 - PSHx: 22:52 common bile duct stent-EGD; vc1 - Immunization history:: Client reports receiving the Aquilino \T\ Aquilino single-dose vaccine. - Social history:: Smoking status: Patient denies any tobacco usage or history of. ROS: 22:40 Constitutional: Negative for body aches, chills, fever, poor PO intake, cp 22:40 Eyes: Negative for injury, pain, redness, and discharge, cp 22:40 ENT: Negative for drainage from ear(s), ear pain, sore throat, difficulty swallowing, difficulty handling secretions, 22:40 Cardiovascular: Positive for chest pain, Negative for edema, palpitations, 22:40 Respiratory: Positive for shortness of breath, at rest. Negative for cough, wheezing, 22:40 Abdomen/GI: Positive for abdominal distension, 22:40 Back: Positive for pain at rest, pain with movement, of the left mid back, 22:40 Skin: Negative for cellulitis, rash, 22:40 Neuro: Negative for altered mental status, dizziness, headache, weakness, 22:40 All other systems are negative, Exam: 22:45 Constitutional: The patient appears in no acute distress, alert, awake, cp non-diaphoretic, non-toxic, well developed, well nourished, uncomfortable, 22:45 Head/Face: Normocephalic, atraumatic. cp 22:45 Eyes: Periorbital structures: appear normal, Conjunctiva: normal, no exudate, no cp injection, Sclera: no appreciated abnormality, Lids and lashes: appear normal, bilaterally, 22:45 ENT: External ear(s): are unremarkable, Nose: is normal, Mouth: Lips: moist, Oral cp mucosa: pink and intact, moist, Posterior pharynx: Airway: no evidence of obstruction, patent, 22:45 Neck: ROM/movement: is normal, is supple, without pain, no range of motions limitations, no meningismus, 22:45 Chest/axilla: Inspection: normal, 22:45 Cardiovascular: Rate: normal, Rhythm: regular, Edema: is not appreciated, JVD: is not appreciated, 22:45 Respiratory: the patient does not display signs of respiratory distress, Respirations: labored breathing, that is mild, intercostal retractions, are absent, Breath sounds: decreased breath sounds, that are moderate, are heard in the left posterior lower lobe, stridor, is not appreciated, wheezing: is not appreciated, 22:45 Abdomen/GI: Inspection: distension, that is moderate, Bowel sounds: active, all quadrants, Palpation: abdomen is soft and non-tender, in all quadrants, 22:45 Back: CVA tenderness, is absent, 22:45 Skin: no rash present. 22:45 Neuro: Orientation: to person, place \T\ time. Mentation: is normal, Motor: moves all fours, strength is normal, Sensation: is normal, 07/17 02:20 ECG was reviewed by the Attending Physician. cp Vital Signs: 07/16 22:51 BP 102 / 65; Pulse 99; Resp 20; Temp 98.8; Pulse Ox 100% ; vc1 07/17 01:15 BP 107 / 58; Pulse 102; Resp 17; Pulse Ox 100% on R/A; me1 02:00 BP 101 / 62; Pulse 95; Resp 22; Pulse Ox 100% ; vc1 03:00 BP 98 / 54; Pulse 91; Resp 15; Pulse Ox 100% ; vc1 04:00 BP 77 / 52; Pulse 84; Resp 18; Pulse Ox 100% ; la4 04:39 BP 108 / 59; Pulse 86; Resp 20; Pulse Ox 99% on R/A; la4 04:00 pt requesting midodrine la4 Cassandra Coma Score: 04:00 Eye Response: spontaneous(4). Motor Response: obeys commands(6). Verbal Response: la4 oriented(5). Total: 15. MDM: 07/16 22:48 Patient medically screened. cp 07/17 02:10 Data reviewed: vital signs, nurses notes, lab test result(s), EKG, radiologic studies, cp plain films. 04:45 ED course: Chest X ray - CLINICAL HISTORY: SOB TECHNIQUE: Frontal view of the chest. sp4 COMPARISON: No relevant prior studies available. FINDINGS: Lungs: Hazy left basilar opacification. Pleural space: Blunting of the left costophrenic angle. No pneumothorax. Heart: Unremarkable. No cardiomegaly. Mediastinum: Unremarkable. Bones/joints: Unremarkable. IMPRESSION: Left basilar opacification thought to reflect a combination of a small to moderate pleural effusion and underlying consolidation (atelectasis at/or infiltrate).. 05:08 Differential diagnosis: Anxiety Reaction asthma, Bronchitis CHF exacerbation, Chronic sp4 Obstructive Pulmonary Disease Myocardial Infarction pneumonia. Data reviewed: old medical records. Consideration of Admission/Observation Escalation of care including admission/observation considered. ED course: Patient was accepted at [facility] for evaluation for acute renal failure recurrent pleural effusion and ascites. Blood pressure has improved reasonably well and it is at 108/59. . 07/17 00:43 Order name: Basic Metabolic Panel; Complete Time: 02: 07/17 02:21 Interpretation: Normal except: CL 110; CO2 19; GLUC 118; BUN 42; CRE 2.79; GFR 19; CA cp 7.4. 07/17 00:43 Order name: CBC with Diff; Complete Time: 02: cp 07/17 02:22 Interpretation: Normal except: RBC 2.58; HGB 9.2; HCT 25.8; MCH 35.5; PLT 83; RDW 15.3; cp LYM% 9.8; MN% 13.9. 07/17 00:43 Order name: LFT's; Complete Time: 02:04 cp 07/17 02:22 Interpretation: Normal except: BILIT 1.1; BILID 0.4; TP 6.0; ALB 2.5; A/G 0.7. cp 07/17 00:43 Order name: Magnesium; Complete Time: 02:04 cp 07/17 00:43 Order name: NT PRO-BNP; Complete Time: 02:04 cp 07/17 00:43 Order name: PT-INR; Complete Time: 02:04 cp 07/17 00:43 Order name: Troponin HS; Complete Time: 02:04 cp 07/17 00:44 Order name: COVID-19 SARS RT PCR; Complete Time: 02:04 cp 07/17 00:44 Order name: Lactate w/ 2H reflex if indic.; Complete Time: 02:04 cp 07/17 00:43 Order name: XRAY Chest (1 view) cp 07/17 00:43 Order name: EKG; Complete Time: 00:44 cp 07/17 00:43 Order name: Cardiac monitoring; Complete Time: 02:36 cp 07/17 00:43 Order name: EKG - Nurse/Tech; Complete Time: 02:36 cp 07/17 00:43 Order name: IV Saline Lock; Complete Time: 01:31 cp 07/17 00:43 Order name: Labs collected and sent; Complete Time: 01:31 cp 07/17 00:43 Order name: O2 Per Protocol; Complete Time: 01:31 cp 07/17 00:43 Order name: O2 Sat Monitoring; Complete Time: 01:31 cp EC:20 Rate is 90 beats/min. Rhythm is regular. GA interval is normal. QRS interval is normal. cp Interpreted by me. Reviewed by me. Administered Medications: 03:12 Not Given (Physician Discretion): mg IVP once; give over 2 minutes cp 03:40 Drug: Ondansetron IVP 4 mg IVP once; over 2 minutes Route: IVP; Site: right antecubital;vc1 03:40 Drug: NS 0.9% IV 250 ml IV at bolus once Route: IV; Rate: bolus; Site: right vc1 antecubital; 04:37 Drug: midodrine 7.5 mg Feeding Tube once {Note: pt took own home med.} Route: Feeding la4 Tube; 05:13 Drug: Albumin IVPB 25 grams 100 ml IVPB once; (Note: Albumin 25% concentration) Volume: la4 100 ml; Route: IVPB; Site: left antecubital; 05:14 Drug: HYDROmorphone IVP 1 mg IVP once Route: IVP; Site: right antecubital; la4 05:51 Drug: Albumin IVPB 25 grams 100 ml IVPB once; (Note: Albumin 25% concentration) Volume: la4 100 ml; Route: IVPB; Site: right antecubital; Disposition: 05:07 Co-signature as Attending Physician, Benedicto Ortega MD I agree with the assessment sp4 and plan of care. I reviewed the patient's care provided by Advanced Practice Provider \T\ agree w/ the diagnosis \T\ care plan. I personally saw the pt \T\ performed a substantive portion of the visit, incldng all aspects of the (History/Exam/Medical Decision Making). Disposition Summary: 07/17/23 04:01 Transfer Ordered Notes: Transfer Location: [facility] cp Reason: Higher level of care cp Condition: Stable cp Problem: new cp Symptoms: are unchanged cp Accepting Physician: Doctor(07/17/23 07:07) iw Diagnosis - Acute kidney failure, unspecified cp - Pleural effusion, not elsewhere classified cp Forms: - Medication Reconciliation Form cp - SBAR form cp Signatures: Dispatcher [employer] Emily Aldana RN RN iw Davonte Bond PA PA cp Jorge L Abraham RN RN Brenda Lowry RN RN vc1 Benedicto Oretga MD MD sp4 Dara Torres RN RN la4 Corrections: (The following items were deleted from the chart) 04:02 04:01 Doctor cp cp 05:08 04:02 Doctor cp sp4 07:07 05:08 Doctor sp4 iw
[2023-07-17] MEDS ORDERED: ALBUMIN HUMAN 25% 50 ML IV ONE (05:13)
[2023-07-17] MEDS ORDERED: HYDROMORPHONE HCL 1 MG/ML INJ ONE (05:22)
[2023-07-17 07:15] VITALS: TEMP 98.8
[2023-07-17 07:31] VITALS: BP 108/59; O2SAT 99
--- NOTE | 2023-07-17 13:47 | RAD REPORT ---
EXAM DESCRIPTION: RAD - Chest Single View - 07/17/2023 2:00 am CLINICAL HISTORY: SOB TECHNIQUE: Frontal view of the chest. COMPARISON: No relevant prior studies available. FINDINGS: Lungs: Hazy left basilar opacification. Pleural space: Blunting of the left costophrenic angle. No pneumothorax. Heart: Unremarkable. No cardiomegaly. Mediastinum: Unremarkable. Bones/joints: Unremarkable. IMPRESSION: Left basilar opacification thought to reflect a combination of a small to moderate pleur al effusion and underlying consolidation (atelectasis at/or infiltrate). Electronically signed by: Lorin Watts MD 07/17/2023 1:38 AM PHOTOGRAPHIC DOUBLE Due to temporary technical issues with the PACS/Fluency reporting system, reports are being signed by the in house radiologists without review as a courtesy to insure prompt reporting. The interpreting radiologist is fully responsible for the content of the report.
--- NOTE | 2023-07-23 14:38 | EKG ---
Test Date: 2023-07-17 Test Time: 02:15:38 Railway Signal Electrician: NOE MEASUREMENT RESULTS: Intervals: Rate: 90 ND: 160 QRSD: 74 QT: 362 QTc: 442 [place]: P: -5 ND: 160 QRS: 25 T: 37 INTERPRETIVE STATEMENTS: Normal sinus rhythm Low voltage QRS Cannot rule out Anterior infarct, age undetermined Abnormal ECG Compared to ECG 04/21/2023 16:48:07 Low QRS voltage now present Myocardial infarct finding now present Electronically Signed On 07-23-23 14:19:06 HUMAN RESOURCES CONSULTANT by Otto Grullon
== END 2023-07-17 07:07 | disposition short-term general hospital (02) ==
LOC: ER 21:46
DX: J90 Pleural effusion, not elsewhere classified (principal); N17.9 Acute kidney failure, unspecified; Z11.52 Encounter for screening for COVID-19; Z88.1 Allergy status to other antibiotic agents; Z88.8 Allergy status to other drugs, medicaments and biological substances
CPT/HCPCS: 93005; 85025; 80048; 36415; 83735; 85610; 80076; 83605; 84484; 83880; 87635; 71045; 99284; J1170; J2405; P9047; J7050

== ENCOUNTER 2023-07-27 11:02 | Emergency (ER) | payer BC ==
--- OUTSIDE RECORDS SUMMARY | 2023-07-27 11:21 | XMS REPORT | Continuity of Care Document ---
:1965 Author Organization [facility] t Address [address] [facility] [address] [place] [id number] Care Team Providers Name Role Phone Nuris Alegre Primary Care Physician RIGO SANZ Attending Clinician Unavailable KAMLESH DOBSON Attending Clinician Unavailable MARGIE ALLRED Attending Clinician Unavailable KADI MARY Attending Clinician Unavailable ZAKIA TAYLOR Attending Clinician Unavailable LUPE GLOVER Attending Clinician Unavailable ARPYL KOCH Attending Clinician Unavailable DANUTA TAYLOR Attending Clinician Unavailable CARLOS RAY Attending Clinician Unavailable MARSHA BLACK Attending Clinician Unavailable MARIO MONTANO Attending Clinician Unavailable ASHLEY WRIGHT Attending Clinician Unavailable PAUL SUTTON Attending Clinician Unavailable MATY MEI Attending Clinician Unavailable BEBE COX Attending Clinician Unavailable BARRY CUNHA Attending Clinician Unavailable KEANU GUEVARA Attending Clinician Unavailable GOLDEN GAXIOLA Attending Clinician Unavailable JASEN ORDONEZ Attending Clinician Unavailable PAO NORWOOD Attending Clinician Unavailable MARY HARP Attending Clinician Unavailable DANUTA GARCIA Attending Clinician Unavailable SAMANTHA ALFREDO Attending Clinician Unavailable SAMUEL CORONA Attending Clinician Unavailable ANANDA HENDRICKSON Attending Clinician Unavailable DAVID QUILES Attending Clinician Unavailable JEAN OLIVERA Attending Clinician Unavailable RIMMA GONZALEZ Attending Clinician Unavailable JIM KAHN Attending Clinician Unavailable BRETT JENSEN Attending Clinician Unavailable YULISA REYES Attending Clinician Unavailable SERGIO BLACK Attending Clinician Unavailable ABRAM OWUSU Attending Clinician Unavailable HIRAM HIGHTOWER Attending Clinician Unavailable AMIE GOMEZ Attending Clinician [...] Clinician Unavailable ERIKA CUELLAR Attending Clinician Unavailable HEATHER MARIANO Attending Clinician Unavailable NENA MANE Attending Clinician Unavailable Mel VAUGHN, Du Attending Clinician Terri Concepcion Attending Clinician Fabiano VAUGHN, Gerardo Castro Attending Clinician Paul Sutton MD Attending Clinician [phone] Patricia VAUGHN MPH, Amie Lehman Attending Clinician [phone] Enmanuel VAUGHN, Megha Dumas Attending Clinician Castillo VAUGHN, Rylie Diaz Attending Clinician Graham VAUGHN, Dipak Long Attending Clinician Ana Luisa VAUGHN, Heather Thurman Attending Clinician [phone] Judi Vigil Attending Clinician Eun Gregory MD Attending Clinician Monica Ruiz CRNA Attending Clinician [phone] Arcenio Lazo Attending Clinician MARGIE ALLRED Admitting Clinician Unavailable KADI MARY Admitting Clinician Unavailable RIGO SANZ Admitting Clinician Unavailable SUSHIL EPPERSON Admitting Clinician Unavailable PAUL SUTTON Admitting Clinician Unavailable ASHLEY WRIGHT Admitting Clinician Unavailable USHA CUELLAR Admitting Clinician Unavailable BARRY CUNHA Admitting Clinician Unavailable HIRAM HIGHTOWER Admitting Clinician Unavailable ARCENIO LAZO Admitting Clinician Unavailable Referred, Self Admitting Clinician Unavailable HEATHER MARIANO Admitting Clinician Unavailable MARISABEL HO Admitting Clinician Unavailable JUDI VIGIL Admitting Clinician Unavailable Payers Payer Name Policy Type Policy Number Effective Date Expiration Date S chay [employer]BS PPO POS EPO [id number] 2022 00:00:00 CHOICE Problems Condition Condition Condition Status Onset Resolution Last Treating Co mments Source Name Details Category Date Date Treatment Clinician Date Pleural Pleural Disease Active [facility] Other Other Disease Active [facility]: [facility] 00 [place] Symptomati Symptomati Disease Active C [facility] [...] reaction 00 Center s MELOXICA Allergy Active 0 SLSL M 7-15 00:00: 00 Vancomyc Propensi Active 0 Method i in ty to 7[address] st adverse 00:00: Hospita reaction 00 l s to drug NO KNOWN Allergy Active [facility] Family History Family Member Diagnosis Comments Start Date Stop Date Source Natural father Hypertension [facility] Natural father Kidney cancer [facility] Natural mother Arrhythmia [facility] Natural mother Asthma [facility] Natural mother Cirrhosis [facility] Natural mother Diabetes [facility] Social History Social Habit Start Date Stop Date Quantity Comments Source Gender identity [facility] SDPR [facility] Alcohol Std Drinks Medica l Center History [facility] Alcohol Binge Medical Mal[address] [facility] Sexual orientation [facility] Hospital Exposure to 2022-12-19 2022-12-[address] [facility] SARS-CoV-2 (event) 00:00:00 15:15:00 Medica l Center History [facility] 2022-12-29 2022-12-[address] [facility] Housing Unable to 00:00:00 00:00:00 Medical Center Pay History [facility] 2022-12-29 2022-12-[address] [facility] Housing Places 00:00:00 00:00:00 Medical Ce nter Lived History [facility] 2022-12-29 2022-12-[address] [facility] Housing Homeless 00:00:00 00:00:00 Medical Center Last Year History [facility] 2022-11-25 2022-11-[address] [facility] Alcohol Frequency 00:00:00 00:00:00 Medical Center History of Social 2019-05-03 2019-05-[address] function 00:00:00 00:00:00 Hospital Tobacco use and 2019-04-04 2019-04-04 Smokeless [facility] exposure 00:00:00 00:00:00 tobacco non-user Hospital Alcohol intake 2019-04-04 2019-04-04 Ex-drinker [facility] 00:00:00 00:00:00 (finding) Hospital Sex Assigned At [birth year] [facility] 00:00:00 00:00:00 Hospital Smoking Status Start Date Stop Date Source Never smoked tobacco [facility] Medications Ordered Filled Start Stop Current Ordering Indication Dosage Frequency Signature Comments Components Source Medication Medication Date Date Medication? Clinician (SIG) Name Name spironolact Yes 25mg QD Take [address] [facility] one 4-26 tablet (25 [facility] (ALDACTONE) 18:19: mg total) M edical 25 MG 05 by mouth Center tablet in the morning. omeprazole 2022-0 Yes 20mg QD Take 1 [facility] [...] times daily as needed for Nausea. torsemide 2022- No 40mg QD Take 40 mg [...] in the morning. propranoloL 2022-2023- No 10mg Q.[id number] Take [address] (INDERAL) 12-01-21 [id number] tablet (10 [facility] 10 MG 00:00: 23:59 [...] needed for Wheezing. propranoloL 2023- No 10mg Q.[id number] Take [address] (INDERAL) -01 12- [id number] tablet (10 [facility] 10 MG 00:00: 23:59 3D mg total) Medica l tablet 00 :00 by mouth Center in the morning and 1 tablet (10 mg total) at noon and 1 tablet (10 mg total) in the evening. furosemide 2023- No 20mg Take [address] [facility] (LASIX) 20 12-01- tablet (20 Veronica kes MG tablet 00:00: 23:59 mg total) Me dical 00 :00 by mouth Center daily as needed (leg swelling). albuterol 2023- No 1{puff} Inhale [address] HFA 12-01-21 puff by [facility] (VENTOLIN 00:00: 23:59 mouth via Me dical HFA) 90 00 :00 inhaler Center mcg/actuati every 6 on inhaler (six) hours as needed for Wheezing. propranoloL 2023- No 10mg Q.[id number] Take [address] (INDERAL) -01 12- [id number] tablet (10 [facility] 10 MG 00:00: 23:59 [...] 50mg Take [address] (ULTRAM) 50 3-22 04-01 tablet (50 L ukes mg tablet 00:00: 23:59 mg total) Me dical 00 :00 by mouth Center every 6 (six) hours as needed for up to 10 days. Max Daily Amount: 200 mg traMADoL 2022- No 50mg Take [address] (ULTRAM) 50 3-22 04-01 tablet (50 L ukes mg tablet [...] days. Max Daily Amount: 200 mg valsartan 2018-0 Yes 80mg QD Take 80 [...] 00:00: daily. Hospit a 00 l valsartan 2019-0 Yes 80mg QD Take 80 mg Me thodi (DIOVAN) 80 6-[address] [facility] tablet 00:00: daily. Hospit a 00 l valsartan 2018-0 Yes 80mg QD Take [...] kg Heart rate 2023-01-04 15:54:03 71 /min [facility] Respiratory rate 2023-01-04 15:54:03 18 /min [facility] Oxygen saturation in 2023-01-04 15:54:03 96 /min [facility] Arterial blood by Medical Ce nter Pulse oximetry Body temperature 2023-01-04 15:53:12 37 Odilia [facility] Systolic blood 2023-01-04 15:53:00 108 mm[Hg] [facility] Diastolic blood 2023-01-04 15:53:00 69 mm[Hg] [facility] Body weight 2023-01-04 07:30:00 111.727 kg [facility] BMI 2023-01-04 07:30:00 36.37 kg/m2 [facility] Body height 2023-01-02 09:27:00 175.3 cm [facility] Systolic blood 2022-12-01 08:02:00 121 mm[Hg] [facility] Diastolic blood 2022-12-01 08:02:00 60 mm[Hg] [facility] Heart rate 2022-12-01 08:02:00 79 /min [facility] Body temperature 2022-12-01 08:02:00 35.78 Odilia [facility] Respiratory rate 2022-12-01 08:02:00 18 /min [facility] Oxygen saturation in 2022-12-01 08:02:00 93 /min [facility] Arterial blood by Medical Ce nter Pulse oximetry Body height 2022-11-25 08:46:00 175.3 cm [facility] Body weight 2022-11-25 08:46:00 119.296 kg [facility] BMI 2022-11-25 08:46:00 38.84 kg/m2 [facility] Procedures Procedure Date / Time Performing Clinician Source Performed MAGNESIUM 2023-01-04 05:10:00 Margie Allred [facility] COMPREHENSIVE METABOLIC 2023-01-04 05:10:[address] [facility] PANEL [facility] PHOSPHORUS 2023-01-04 05:10:00 Austyn Bae [facility] CALCIUM, IONIZED 2023-01-04 05:09:00 Austyn Bae [facility] CBC W/PLT COUNT & AUTO 2023-01-04 05:09:[address] [facility] [id number] 2023-01-04 05:09:00 Dipak Arreola [facility] CBC W/PLT COUNT & AUTO 2023-01-04 05:09:00 [facility]23-01-03 05:02:00 Teofilo [facility] COMPREHENSIVE METABOLIC 2023-01-03 05:02:[address] [facility] MAGNESIUM 2023-01-02 05:32:[facility] METABOLIC 2023-01-02 05:32:[address] [facility] CALCIUM, IONIZED 2023-01-01 05:50:00 Catalino [facility] COMPREHENSIVE METABOLIC 2023-01-01 05:12:00 Marisabel Ho [facility] MAGNESIUM 2023-01-01 05:12:00 Marisabel Ho [facility] PROTHROMBIN TIME/INR 2023-01-01 05:12:00 Marisabel Ho [facility] HEREDITARY HEMOCHROMATOSIS 2023-01-01 05:12:00 Dipak Arreola [facility] PHOSPHORUS 2023-01-01 05:12:00 Cam [facility] CBC W/PLT COUNT & AUTO 2023-01-01 05:12:00 [facility] W/PLT COUNT & AUTO 2023-01-01 05:12:00 [facility] 2D ECHO W/ DOPPLER 2022-12-31 14:04:45 Evelyn Potrillo [facility] (CW/PW/COLOR) [facility] REPORT OF PROCEDURE - 2022-12-31 10:28:[address] [facility] ENDOSCOPY [facility] EGD 2022-12-31 08:14:00 Gerardo Diaz [facility] L ukes (ESOPHAGOGASTRODUODENOSCOP Medic al Center Y) COMPREHENSIVE METABOLIC 2022-12-31 04:48:00 Marisabel Ho [facility] MAGNESIUM 2022-12-31 04:48:00 Marisabel Ho [facility] PROTHROMBIN TIME/INR 2022-12-31 04:48:[address] [facility] CALCIUM, IONIZED 2022-12-31 04:48:00 [facility] PHOS[facility]US 2022-12-31 04:48:00 [facility] CBC W/PLT COUNT & AUTO 2022-12-31 04:48:[address] [facility] CBC W/PLT COUNT & AUTO 2022-12-31 04:48:[address] [facility] HEPATITIS B CORE ANTIBODY, 2022-12-30 16:29:[address] [facility] TOTAL [facility] HEPATITIS A ANTIBODY, IGG 2022-12-30 16:29:00 [facility] ANTIBODY 2022-12-30 16:29:[address] [facility] [facility] HEPATITIS B SURFACE 2022-12-30 16:29:00 [facility] HEPATITIS B SURFACE 2022-12-30 16:29:[address] [facility] FERRITIN 2022-12-30 16:29:00 [facility] IRON, TIBC, % SAT. 2022-12-30 16:29:[address] [facility] (WITHOUT FERRITIN) [facility] r CERULOPLASMIN 2022-12-30 16:29:00 [facility] springs[facility]abel [facility] ALPHA FETOPROTEIN (AFP), 2022-12-30 16:29:[address] [facility] TUMOR MARKER [facility] ANTI-NUCLEAR ANTIBODY 2022-12-30 16:29:00 Rosalee Marisabel [facility] (EMORY) [facility] ACTIN (SMOOTH MUSCLE) 2022-12-30 16:29:00 Rosalee Marisabel [facility] ANTIBODY, IGG Medical Center [facility] TITER AND PATTERN 2022-12-30 16:29:[address] [facility] MITOCHONDRIAL AB SCREEN 2022-12-30 16:29:00 Rosalee Marisabelher Pedro jorge [facility] MITOCHONDRIAL AB TITER 2022-12-30 16:29:00 Marisabel Hoe marcin [facility] [id number]\\, 2022-12-30 15:51:00 Rosalee [facility] PROTHROMBIN TIME/INR 2022-12-30 15:51:[address] [facility] LACTATE DEHYDROGENASE 2022-12-30 15:48:00 Rosalee [facility] (LDH) [facility] COMPREHENSIVE METABOLIC 2022-12-30 15:48:[address] [facility] MAGNESIUM 2022-12-30 15:48:00 [facility] CALCIUM, IONIZED 2022-12-30 15:48:00 [facility] PHOSPHORUS 2022-12-30 15:48:00 [facility] CBC W/PLT COUNT & AUTO 2022-12-30 15:48:[address] [facility] TYPE AND SCREEN, AUTOMATED 2022-12-30 15:48:[address] [facility] [address] [facility] CBC W/PLT COUNT & AUTO 2022-12-30 15:48:[address] [facility] XR CHEST 1 VIEW PORTABLE / 2022-12-30 14:22:[address] [facility] BEDSIDE [facility] US PARACENTESIS 2022-12-30 12:34:00 [facility] B[facility] FLUID CULTURE + GRAM 2022-12-30 12:15:00 Marisabel Ho [facility] PROTEIN, BODY FLUID 2022-12-30 12:15:00 [facility] ALBUMIN, BODY FLUID 2022-12-30 12:15:00 [facility] AMYLASE PERITONEAL FLUID 2022-12-30 12:15:00 Saurabhquiana [facility] MISCELLANEOUS LAB ORDER 2022-12-30 12:15:00 Marisabel Ho [facility] BODY FLUID CELL COUNT WITH 2022-12-30 11:59:00 Marisabel Ho [facility] CT ABDOMEN/PELVIS WITH IV 2022-12-30 10:45:00 Margie Allred [facility] CONTRAST [facility] BODY FLUID CELL COUNT WITH 2022-12-30 10:01:00 Marisabel Ho [facility] ALBUMIN PLEURAL FLUID 2022-12-30 10:01:00 Major [facility] GLUCOSE PLEURAL FLUID 2022-12-30 10:01:00 Major Murry [facility] LACTATE DEHYDROGENASE 2022-12-30 10:01:00 [facility] ([facility] PLEURAL FLUID [facility] er PH, BODY FLUID 2022-12-30 10:01:00 Tomas Wei [facility] PROTEIN, TOTAL, PLEURAL 2022-12-30 10:01:00 Mark Wei [facility] CYTOLOGY 2022-12-30 09:33:00 Marisabel Ho [facility] BODY FLUID CULTURE + GRAM 2022-12-30 09:27:00 Marisabel Ho [facility] MISCELLANEOUS LAB ORDER 2022-12-30 09:26:00 Lima Spear CH, I [facility] BLOOD CULTURE 2022-12-29 23:16:00 Evelyn Portillo [facility] URINALYSIS W/ MICROSCOPIC 2022-12-29 21:23:00 Austyn Bae [facility] PROTEIN, RANDOM URINE 2022-12-29 21:23:00 [facility] CREATININE, RANDOM URINE 2022-12-29 21:23:00 Catalino [facility] PROCALCITONIN 2022-12-29 17:04:00 [facility] LACTIC ACID, VENOUS 2022-12-29 17:04:00 [facility] CHEST 1 VIEW PORTABLE / 2022-12-29 15:48:[address] [facility] B-TYPE NATRIURETIC FACTOR 2022-12-29 14:58:[address] [facility] (BNP) [facility] CBC W/PLT COUNT & AUTO 2022-12-29 13:10:00 Marisabel Ho [facility] COMPREHENSIVE METABOLIC 2022-12-29 13:10:00 Marisabel Ho [facility] PROTHROMBIN TIME/INR 2022-12-29 13:10:00 Marisabel Ho [facility] MAGNESIUM 2022-12-29 13:10:00 Marisabel Ho [facility] CBC W/PLT COUNT & AUTO 2022-12-29 13:10:00 [facility] PREPARE PLASMA 2022-12-01 23:54:00 Dipak Stevenson [facility] CBC (HEMOGRAM ONLY) 2022-12-01 03:41:00 Dipak Stevenson [facility] COMPREHENSIVE METABOLIC 2022-12-01 03:41:[address] [facility] REPORT OF PROCEDURE - 2022-11-30 12:20:[address] [facility] ENDOSCOPY [facility] FL FLUORO NON-SPECIFIC UP 2022-11-30 09:10:[address] [facility] FINE NEEDLE ASPIRATION BY 2022-11-30 08:48:00 Arcenio Lazo med [facility] FINE NEEDLE ASPIRATE (FNA) 2022-11-30 08:48:00 Jeannette, Arcenio Gold mmed [facility] ESOPHAGOSCOPY, WITH 2022-11-30 08:16:00 Jeannette, Arcenio Douglas [facility] I [facility] ENDOSCOPIC ULTRASOUND Medical Ce nter ULTRASOUND, UPPER GI 2022-11-30 08:16:00 Jeannette, Arcenio Douglas C [facility] TRACT, ENDOSCOPIC, WITH [facility] FINE NEEDLE ASPIRATION PROCEDURE W/ C-ARM 2022-11-30 08:16:00 Jeannette, [facility] TRANSFUSE PLASMA 2022-11-30 05:15:00 Graham [facility] CBC (HEMOGRAM ONLY) 2022-11-30 03:22:00 Graham [facility] METABOLIC 2022-11-30 03:22:00 Graham [facility] PROTHROMBIN TIME/INR 2022-11-30 03:22:00 Graham [facility] PROTHROMBIN TIME/INR 2022-11-29 22:46:00 Lizzie [facility] TYPE AND SCREEN, AUTOMATED 2022-11-29 22:46:00 Graham [facility] ANTIBODY SCREEN 2022-11-29 22:46:00 [facility] NM HEPATOBILIARY (HIDA) 2022-11-29 12:01:[address] [facility] SCAN WITH [facility] FRACTION CBC (HEMOGRAM ONLY) 2022-11-29 04:42:00 Graham [facility] METABOLIC 2022-11-29 04:42:00 Graham [facility] CBC (HEMOGRAM ONLY) 2022-11-28 00:55:00 Graham [facility] METABOLIC 2022-11-28 00:55:00 Graham [facility] CBC (HEMOGRAM ONLY) 2022-11-27 04:39:00 Graham [facility] METABOLIC 2022-11-27 04:39:00 Dipak Stevenson [facility] CBC W/PLT COUNT & AUTO 2022-11-26 04:43:00 Castillo [facility] BASIC METABOLIC PANEL 2022-11-26 04:43:00 Castillo [facility] HEPATIC FUNCTION PANEL 2022-11-26 04:43:00 Castillo [facility] CBC W/PLT COUNT & AUTO 2022-11-26 04:43:00 Castillo [facility] PROTHROMBIN TIME/INR 2022-11-26 04:43:00 Castillo [facility] MR ABDOMEN WITHOUT IV 2022-11-25 21:58:00 [facility]BD[facility] LIMITED 2022-11-25 16:23:00 Castillo [facility] URINE CULTURE 2022-11-25 09:58:00 Castillo [facility] URINALYSIS W/ REFLEX URINE 2022-11-25 09:58:00 Castillo [facility] ABORH, MANUAL 2022-11-25 08:39:00 Leydi Gaitan [facility] CBC W/PLT COUNT & AUTO 2022-11-25 06:36:00 Judi Vigil [facility] CBC W/PLT COUNT & AUTO 2022-11-25 06:36:00 Judi Vigil [facility] COMPREHENSIVE METABOLIC 2022-11-25 06:36:00 Judi Vigil [facility] MAGNESIUM 2022-11-25 06:36:00 Judi Vigil [facility] PHOSPHORUS 2022-11-25 06:36:00 [facility] PROTHROMBIN TIME/INR 2022-11-25 06:36:00 [facility] hospital[facility]i hu[facility] BILIRUBIN, DIRECT 2022-11-25 06:36:00 Tushar Kelly [facility] TYPE AND SCREEN, AUTOMATED 2022-11-25 06:35:00 Kirk Vigil [facility] Plan of Care Planned Activity Planned Date Details Comments Source Future Scheduled 2023-12-[address] [facility] Test 00:00:00 [facility] r Screening (12+) [code = Tobacco Cessation Counseling and Screening (12+)] Future Scheduled 2023-07-18 [facility] Test 11:01:01 malignant neoplasm of colon (procedure) [code = 110261884] Future Scheduled 2023-07-18 [facility] Test 11:01:01 malignant neoplasm of colon (procedure) [code = 711210527] Future Scheduled 2023-07-18 [facility] Test 11:01:01 malignant neoplasm of colon (procedure) [code = 803331656] Future Scheduled 2023-07-18 COVID-19 VACCINE (#1) [facility] Hospital Test 11:01:01 [code = COVID-19 VACCINE (#1)] Future Scheduled 2023-07-18 [facility] Test 11:01:01 malignant neoplasm of cervix (procedure) [code = 104600110] Future Scheduled 2023-07-18 BREAST CANCER [facility] Test 11:01:01 SCREENING [code = BREAST CANCER SCREENING] Future Scheduled 2023-07-18 [facility] Test 11:01:01 malignant neoplasm of colon (procedure) [code = 664376805] Future Scheduled 2023-07-18 [facility] Test 11:01:01 malignant neoplasm of colon (procedure) [code = 084277418] Future Scheduled 2023-07-18 SHINGLES VACCINES (1 [facility] Test 11:01:01 of 2) [code = SHINGLES VACCINES (1 of 2)] Future Scheduled 2023-07-18 INFLUENZA VACCINE (#1) [facility] Test 11:01:01 [code = INFLUENZA VACCINE (#1)] Future Scheduled 2023-07-09 [facility] Test 02:09:46 malignant neoplasm of colon (procedure) [code = 309364341] Future Scheduled 2023-07-09 [facility] Test 02:09:46 malignant neoplasm of colon (procedure) [code = 669319922] Future Scheduled 2023-07-09 [facility] Test 02:09:46 malignant neoplasm of colon (procedure) [code = 793650684] Future Scheduled 2023-07-09 COVID[facility]19 [facility] 02:09:46 [code = COVID-19 VACCINE (#1)] Future Scheduled 2023-07-09 [facility] Test 02:09:46 malignant neoplasm of cervix (procedure) [code = 597954867] Future Scheduled 2023-07-09 BREAST CANCER [facility] Test 02:09:46 SCREENING [code = BREAST CANCER SCREENING] Future Scheduled 2023-07-09 [facility] Test 02:09:46 malignant neoplasm of colon (procedure) [code = 828231971] Future Scheduled 2023-07-09 [facility] Test 02:09:46 malignant neoplasm of colon (procedure) [code = 943374354] Future Scheduled 2023-07-09 SHINGLES VACCINES (1 [facility] Test 02:09:46 of 2) [code = SHINGLES VACCINES (1 of 2)] Future Scheduled 2023-07-09 INFLUENZA VACCINE (#1) [facility] Test 02:09:46 [code = INFLUENZA VACCINE (#1)] Future Scheduled 2023-05-18 [facility] Test 08:41:31 malignant neoplasm of colon (procedure) [code = 661528431] Future Scheduled 2023-05-18 SHINGLES VACCINES (1 [facility] Test 08:41:31 of 2) [code = SHINGLES VACCINES (1 of 2)] Future Scheduled 2023-05-18 INFLUENZA VACCINE (#1) M [facility] Test 08:41:31 [code = INFLUENZA VACCINE (#1)] Future Scheduled 2023-05-18 [facility] 08:41:31 malignant neoplasm of colon (procedure) [code = 795438560] Future Scheduled 2023-05-18 [facility] Test 08:41:31 malignant neoplasm of colon (procedure) [code = 990192995] Future Scheduled 2023-05-18 [facility] Test 08:41:31 malignant neoplasm of colon (procedure) [code = 236685021] Future Scheduled 2023-05-18 COVID-19 [facility]ACCINE (#[facility]) [facility] Test 08:41:31 [code = COVID-19 VACCINE (#1)] Future Scheduled 2023-05-18 [facility] Test 08:41:31 malignant neoplasm of cervix (procedure) [code = 619499949] Future Scheduled 2023-05-18 BREAST CANCER [facility] Test 08:41:31 SCREENING [code = BREAST CANCER SCREENING] Future Scheduled 2023-05-18 [facility] Test 08:41:31 malignant neoplasm of colon (procedure) [code = 997795533] Future Scheduled 2023-05-[address] [facility] [address] [...] (Season Ended)] Future Scheduled 2023-04-21 [facility] Test 16:10:33 malignant neoplasm of colon (procedure) [code = 911147915] Future Scheduled 2023-04-21 [facility] Test 16:10:33 malignant neoplasm of colon (procedure) [code = 291922023] Future Scheduled 2023-04-21 [facility] Test 16:10:33 malignant neoplasm of colon (procedure) [code = 202468166] Future Scheduled 2023-04-21 COVID[facility]19 [facility]ACCINE (#[facility]) [facility] Test 16:10:33 [code = COVID-19 VACCINE (#1)] Future Scheduled 2023-04-21 [facility] Test 16:10:33 malignant neoplasm of cervix (procedure) [code = 011478606] Future Scheduled 2023-04-21 BREAST CANCER [facility] Test 16:10:33 SCREENING [code = BREAST CANCER SCREENING] Future Scheduled 2023-04-21 [facility] Test 16:10:33 malignant neoplasm of colon (procedure) [code = 682543893] Future Scheduled 2023-04-21 [facility] Test 16:10:33 malignant neoplasm of colon (procedure) [code = 110585077] Future Scheduled 2023-04-21 SHINGLES [facility]ACCINES ([facility] 16:10:33 of 2) [code = SHINGLES VACCINES (1 of 2)] Future Scheduled 2023-04-21 [facility]ZA [facility]ACCINE [facility] 16:10:33 [code = INFLUENZA VACCINE] Future Scheduled 2023-04-12 [facility] Test 15:44:48 malignant neoplasm of colon (procedure) [code = 730707535] Future Scheduled 2023-04-12 [facility] Test 15:44:48 malignant neoplasm of colon (procedure) [code = 032836880] Future Scheduled 2023-04-12 [facility] Test 15:44:48 malignant neoplasm of colon (procedure) [code = 275101137] Future Scheduled 2023-04-12 COVID-19 VACCINE (#1) [facility] Test 15:44:48 [code = COVID-19 VACCINE (#1)] Future Scheduled 2023-04-12 [facility] Test 15:44:48 malignant neoplasm of cervix (procedure) [code = 110367787] Future Scheduled 2023-04-12 BREAST CANCER [facility] Test 15:44:48 SCREENING [code = BREAST CANCER SCREENING] Future Scheduled 2023-04-12 [facility] Test 15:44:48 malignant neoplasm of colon (procedure) [code = 909885907] Future Scheduled 2023-04-12 [facility] Test 15:44:48 malignant neoplasm of colon (procedure) [code = 348155706] Future Scheduled 2023-04-12 SHINGLES VACCINES (1 [facility] 15:44:48 of 2) [code = SHINGLES VACCINES (1 of 2)] Future Scheduled 2023-04-12 IN[facility]UENZA VACCINE [facility] Test 15:44:48 [code = INFLUENZA VACCINE] Future Scheduled 2023-04-01 [facility] Test 11:23:59 malignant neoplasm of colon (procedure) [code = 146377166] Future Scheduled 2023-04-01 [facility] Test 11:23:59 malignant neoplasm of colon (procedure) [code = 024407870] Future Scheduled 2023-04-01 [facility] Test 11:23:59 malignant neoplasm of colon (procedure) [code = 344801877] Future Scheduled 2023-04-01 COVID-19 [facility]ACCINE (#1) [facility] 11:23:59 [code = COVID-19 VACCINE (#1)] Future Scheduled 2023-04-01 [facility] Test 11:23:59 malignant neoplasm of cervix (procedure) [code = 409571342] Future Scheduled 2023-04-01 BREAST CANCER [facility] Test 11:23:59 SCREENING [code = BREAST CANCER SCREENING] Future Scheduled 2023-04-01 [facility] Test 11:23:59 malignant neoplasm of colon (procedure) [code = 821890825] Future Scheduled 2023-04-01 [facility] Test 11:23:59 malignant neoplasm of colon (procedure) [code = 389419646] Future Scheduled 2023-04-01 SHINGLES VACCINES (1 [facility] 11:23:59 of 2) [code = SHINGLES VACCINES (1 of 2)] Future Scheduled 2023-04-01 INFLUENZA VACCINE [facility] 11:23:59 [code = INFLUENZA VACCINE] Future Scheduled 2023-03-11 [facility] Test 10:38:56 malignant neoplasm of colon (procedure) [code = 893206364] Future Scheduled 2023-03-11 [facility] Test 10:38:56 malignant neoplasm of colon (procedure) [code = 596361256] Future Scheduled 2023-03-11 [facility] Test 10:38:56 malignant neoplasm of colon (procedure) [code = 280896081] Future Scheduled 2023-03-11 COVID-19 [facility] (#[facility] 10:38:56 [code = COVID-19 VACCINE (#1)] Future Scheduled 2023-03-11 [facility] Test 10:38:56 malignant neoplasm of cervix (procedure) [code = 451810084] Future Scheduled 2023-03-11 BREAST CANCER [facility] Test 10:38:56 SCREENING [code = BREAST CANCER SCREENING] Future Scheduled 2023-03-11 [facility] Test 10:38:56 malignant neoplasm of colon (procedure) [code = 513172194] Future Scheduled 2023-03-11 [facility] Test 10:38:56 malignant neoplasm of colon (procedure) [code = 515842823] Future Scheduled 2023-03-11 SHINGLES VACCINES (1 [facility] 10:38:56 of 2) [code = SHINGLES VACCINES (1 of 2)] Future Scheduled 2023-03-11 INFLUENZA VACCINE [facility] Test 10:38:56 [code = INFLUENZA VACCINE] Future Scheduled 2023-02-14 [facility] Test 23:01:21 malignant neoplasm of colon (procedure) [code = 869143313] Future Scheduled 2023-02-14 [facility] Test 23:01:21 malignant neoplasm of colon (procedure) [code = 912975201] Future Scheduled 2023-02-14 [facility] Test 23:01:21 malignant neoplasm of colon (procedure) [code = 491933541] Future Scheduled 2023-02-14 COVID-19 VACCINE (#1) [facility] Test 23:01:21 [code = COVID-19 VACCINE (#1)] Future Scheduled 2023-02-14 [facility] Test 23:01:21 malignant neoplasm of cervix (procedure) [code = 099464337] Future Scheduled 2023-02-14 BREAST CANCER [facility] Test 23:01:21 SCREENING [code = BREAST CANCER SCREENING] Future Scheduled 2023-02-14 [facility] Test 23:01:21 malignant neoplasm of colon (procedure) [code = 534211239] Future Scheduled 2023-02-14 [facility] Test 23:01:21 malignant neoplasm of colon (procedure) [code = 636971759] Future Scheduled 2023-02-14 SHINGLES VACCINES (1 [facility] 23:01:21 of 2) [code = SHINGLES VACCINES (1 of 2)] Future Scheduled 2023-02-14 INFLUENZA VACCINE [facility] Test 23:01:21 [code = INFLUENZA VACCINE] Future Scheduled 2023-01-06 [facility] Test 08:48:32 malignant neoplasm of cervix (procedure) [code = 493556312] Future Scheduled 2023-01-06 BREAST CAN[facility]ER [facility] Test 08:48:32 SCREENING [code = BREAST CANCER SCREENING] Future Scheduled 2023-01-06 COLONOSCOPY SCREENING [facility] Test 08:48:32 [code = COLONOSCOPY SCREENING] Future Scheduled 2023-01-06 SHINGLES VACCINES (1 Met [facility] Test 08:48:32 of 2) [code = SHINGLES VACCINES (1 of 2)] Future Scheduled 2023-01-06 INFLUENZA VACCINE [facility] Test 08:48:32 [code = INFLUENZA VACCINE] Future Scheduled 2023-01-06 COVID-19 VACCINE (#1) [facility] Test 08:48:32 [code = COVID-19 VACCINE (#1)] Future Scheduled 2022-12-17 COVID-19 VACCINE (#1) [facility] Test 12:12:44 [code = COVID-19 VACCINE (#1)] Future Scheduled 2022-12-17 Screening for [facility] Test 12:12:44 malignant neoplasm of cervix (procedure) [code = 059039133] Future Scheduled 2022-12-17 BREAST CANCER [facility] Test 12:12:44 SCREENING [code = BREAST CANCER SCREENING] Future Scheduled 2022-12-17 COLONOSCOPY SCREENING [facility] Test 12:12:44 [code = COLONOSCOPY SCREENING] Future Scheduled 2022-12-17 SHINGLES VACCINES (1 Met [facility] Test 12:12:44 of 2) [code = SHINGLES VACCINES (1 of 2)] Future Scheduled 2022-12-17 INFLUENZA VACCINE Method [facility] Test 12:12:44 [code = INFLUENZA VACCINE] Future Scheduled 2022-12-17 COVID-19 VACCINE (#1) [facility] Test 12:12:44 [code = COVID-19 VACCINE (#1)] Future Scheduled 2022-12-17 Screening for [facility] Test 12:12:44 malignant neoplasm of cervix (procedure) [code = 143481903] Future Scheduled 2022-12-17 BREAST CAN[facility]ER [facility] Test 12:12:44 SCREENING [code = BREAST CANCER SCREENING] Future Scheduled 2022-12-17 COLONOSCOPY SCREENING [facility] Test 12:12:44 [code = COLONOSCOPY SCREENING] Future Scheduled 2022-12-17 SHINGLES VACCINES (1 Met [facility] Test 12:12:44 of 2) [code = SHINGLES VACCINES (1 of 2)] Future Scheduled 2022-12-17 INFLUENZA VACCINE [facility] Test 12:12:44 [code = INFLUENZA VACCINE] Future Scheduled 2022-09-05 COLONOSCOPY SCREENING [facility] Test 11:52:03 [code = COLONOSCOPY SCREENING] Future Scheduled 2022-09-05 SHINGLES VACCINES (1 Met [facility] Test 11:52:03 of 2) [code = SHINGLES VACCINES (1 of 2)] Future Scheduled 2022-09-05 INFLUENZA VACCINE Method [facility] Test 11:52:03 [code = INFLUENZA VACCINE] Future Scheduled 2022-09-05 COVID-19 VACCINE (#1) [facility] Test 11:52:03 [code = COVID-19 VACCINE (#1)] Future Scheduled 2022-09-05 Screening for [facility] Test 11:52:03 malignant neoplasm of cervix (procedure) [code = 462868481] Future Scheduled 2022-09-05 BREAST CANCER [facility] Test 11:52:03 SCREENING [code = BREAST CANCER [...] [facility] Test 00:[facility]:00 (procedure) [code = Medical Center 95410949] Future Scheduled [address] [facility] Test 00:[facility]:00 (procedure) [code = Medical Center 67603498] Future Scheduled [address] [facility] Test 00:00:00 (procedure) [code = [facility] 54335407] Future Scheduled [address] [facility] Test 00:00:00 malignant ne[facility] of [facility] cervix (procedure) [code = 917359833] Future Scheduled [address] [facility] Test 00:00:00 malignant neoplasm of [facility] cervix (procedure) [code = 577846902] Future Scheduled [address] [facility] Test 00:00:00 malignant neoplasm of [facility] cervix (procedure) [code = 628181204] Future Scheduled 1983 DTAP/TDAP/TD VACCINES [facility] [...] [facility] breast (procedure) [code = 264344351] Future Scheduled [address] [facility] Test 00:00:00 (combo) [code = CT Medical C enter Colonography (combo)] Future Scheduled [address] [facility] Test 00:00:00 [facility] colon (procedure) [code = 157949684] Future Scheduled [address] [facility] Test 00:00:00 [facility] colon (procedure) [code = 836055579] Future Scheduled [address] [facility] Test 00:00:00 [facility] colon (procedure) [code = 089402495] Future Scheduled [address] [facility] Test 00:00:00 [facility] colon (procedure) [code = 463757673] Future Scheduled 1964 Sigmoidoscopy [facility] Future Scheduled [address] [facility] Test 00:00:00 [facility] breast (procedure) [code = 700164331] Future Scheduled [address] [facility] Test 00:00:00 (combo) [code = CT Medical C enter Colonography (combo)] Future Scheduled [address] [facility] Test 00:00:00 [facility] colon (procedure) [code = 272305037] Future Scheduled [address] [facility] Test 00:00:00 [facility] colon (procedure) [code = 445572834] Future Scheduled [address] [facility] Test 00:00:00 [facility] colon (procedure) [code = 297548934] Future Scheduled [address] [facility] Test 00:00:00 [facility] colon (procedure) [code = 797083741] Future Scheduled 1964 [facility]oscopy [facility] Cent[facility] Future Scheduled [address] [facility] Test 00:00:00 [facility] breast (procedure) [code = 348222565] Future Scheduled [address] [facility] Test 00:00:00 (combo) [code = CT Medical C enter Colonography (combo)] Future Scheduled [address] [facility] Test 00:00:00 [facility] colon (procedure) [code = 666108117] Future Scheduled [address] [facility] Test 00:00:00 [facility] colon (procedure) [code = 534706108] Future Scheduled [address] [facility] Test 00:00:00 [facility] colon (procedure) [code = 831287658] Future Scheduled [address] [facility] Test 00:00:00 [facility] colon (procedure) [code = 524658288] Future Scheduled 1964 [facility]oid[facility]] Medical Ijeomae r Encounters Start End Encounter Admission Attending Care Care Encounter Source Date/Time Date/Time Type Type Clinicians Facility Department ID 2023-07-21 Inpatient JOLLY SANZ [facility] [id number] [facility] 13:53:36 STANLEY 2023-07-21 Inpatient JOLLY SANZ [facility] [id number] SLEH 13:53:27 STANLEY 2023-07-18 Inpatient KAMLESH CORONADO [facility] [id number] [facility] 12:17:10 2023-07-18 [id number] 09[facility]50:20 [facility] 2023-07-18 [facility] [id number] [facility] 09:50:13 [facility] 2023-07-10 Inpatient EL TYRA, SLEH SLEH [id number] SLEH 08:21:43 KADI 2023-05-31 Inpatient ER BRANDON, SLEH SLEH [id number] SLEH 19:08:07 ZAKIA 2023-05-30 Inpatient ER GEORGE, SLEH SLEH [id number] SLEH 13:32:25 LUPE 2023-05-30 Inpatient ER ZEE, SLEH SLEH [id number] SLEH 05:24:23 APRYL 2023-05-27 Inpatient ER OSVALDO, SLEH SLEH [id number] SLEH 10:03:20 DANUTA 2023-05-17 Inpatient ER CARLOS RAY [facility] SLEH [id number] SLEH 10:10:22 2023-05-13 Inpatient ER BLACK, SLEH SLEH [id number] SLEH 17:57:59 JONI-UY 2023-05-13 Inpatient ER BLACK, SLEH SLEH [id number] SLEH 17:13:16 [facility] 2023-03-21 Inpatient ER BLACK, SLEH SLEH [id number] SLEH 16:28:17 [facility] 2023-03-21 Inpatient ER DUSTY, SLEH SLEH [id number] SLE[facility] 13:20:03 [facility] 2023-03-21 Inpatient ER DUSTY, SLEH SLEH [id number] SLEH 12:01:44 [facility] 2023-03-19 Inpatient ER BRANN, SLEH SLEH [id number] SLEH 06:54:39 [facility] 2023-03-19 Inpatient ER BRANN, SLEH SLEH [id number] SLEH 06:54:33 MENTONE 2023-03-19 Inpatient ER HERMAN, SLEH SLEH [id number] SLEH 05:45:27 PAUL 2023-02-17 Inpatient ER HAMIDA, SLEH SLEH [id number] SLEH 07:06:50 [facility] 2023-02-17 Inpatient ER HAMIDA, SLEH SLEH [id number] SLEH 07:04:58 [facility] 2023-10-06 2023-10-06 Outpatient EL SLEH SLEH [id number] SLEH 00:00:00 00:00:00 2023-10-06 2023-10-06 Outpatient EL SLEH SLEH [id number] SLEH 00:00:00 00:00:00 2023-08-11 2023-08-11 Outpatient EL SLEH SLEH [id number] SLEH 00:00:00 00:00:00 2023-08-11 2023-08-11 Outpatient EL SLEH SLEH [id number] SLEH 00:00:00 00:00:00 2023-08-08 2023-08-08 Outpatient EL SLEH SLEH [id number] SLEH 00:00:00 00:00:00 2023-08-05 2023-08-05 Outpatient EL SLEH SLEH [id number] SLEH 00:00:00 00:00:00 2023-08-05 2023-08-05 Outpatient EL SLEH SLEH [id number] SLEH 00:00:00 00:00:00 2023-08-01 2023-08-01 Outpatient EL SLEH SLEH [id number] SLE 00:00:00 00:00:00 2023-08-01 2023-08-01 Outpatient EL SLEH SLEH [id number] SLEH 00:00:00 00:00:00 2023-07-28 2023-07-28 Outpatient EL SLEH SLEH [id number] SLEH 00:00:00 00:00:00 2023-07-28 2023-07-28 Outpatient EL SLEH SLEH [id number] SLEH 00:00:00 00:00:00 2023-07-25 2023-07-25 Outpatient EL GEORGE, SLE SLEH [id number] SLEH 11:49:44 23:59:00 LUPE 2023-07-25 2023-07-25 Outpatient EL ISHA, SLEH SLE [id number] SLE 09:30:41 11:48:00 BEBE 2023-07-17 2023-07-22 Inpatient ER , [facility] Transplant [id number] SLEH 08:06:00 14:19:00 RIGO 2023-07-21 2023-07-21 Outpatient EL OSVALDO, SLE SLE [id number] SLEH 15:20:18 15:20:18 DANUTA 2023-07-21 2023-07-21 Outpatient EL SLE SLE [id number] SLEH 00:00:00 00:00:00 2023-07-21 2023-07-21 Outpatient EL SLEH SLEH [id number] SLEH 00:00:00 00:00:00 2023-07-19 2023-07-19 Outpatient EL SLE SLE [id number] SLEH 00:00:00 00:00:00 2023-07-19 2023-07-19 Outpatient JOLLY [facility] SLE SLE [id number] SLEH 00:00:00 00:00:00 ELISSA-RAI 2023-07-19 2023-07-19 Outpatient EL SLE SLE [id number] SLEH 00:00:00 00:00:00 2023-07-19 2023-07-19 Outpatient JOLLY [facility] SLE [id number] SLEH 00:00:00 00:00:00 ELISSA-RAI 2023-07-18 2023-07-18 Outpatient CARLOS HANLEY SLE SLE [id number] SLEH 12:14:28 12:14:28 2023-07-18 2023-07-18 Outpatient GLENN MARTINS SLE [id number] SLEH 00:00:00 00:00:00 ELISSA-RAI 2023-07-18 2023-07-18 Outpatient EL SLE SLE [id number] SLEH 00:00:00 00:00:00 2023-07-17 2023-07-17 Outpatient JOLLY ALLRED SLE SLE [id number] SLEH 10:02:48 10:02:48 MARGIE 2023-07-14 2023-07-14 Outpatient JOLLY BLACK SLE SLE [id number] SLEH 10:45:12 23:59:00 MARSHA 2023-07-14 2023-07-14 Outpatient JOLLY [facility] SLE SLE [id number] SLEH 06:42:04 10:44:00 ELISSA-RAI 2023-07-14 2023-07-14 [facility] [id number] [facility]H 06:41:35 06:41:35 TZU-RAI 2023-07-05 2023-07-12 Inpatient ER VIRGILIO MARY Emergency 20 [id number] SLEH 01:05:00 12:21:00 KADI 2023-07-11 2023-07-11 Outpatient EL VIRGILIO MARY SLE [id number] SLEH 06:07:22 06:07:22 KADI 2023-07-10 2023-07-10 Outpatient EL CARLOS RAY SLE SLE [id number] SLEH 09:44:51 09:44:51 2023-07-09 2023-07-09 Outpatient EL GLENN MARY SLE [id number] SLEH 00:00:00 00:00:00 KADI 2023-07-07 2023-07-07 Outpatient EL GLENN MARY SLE [id number] SLEH 15:59:35 15:59:35 KADI 2023-07-07 2023-07-07 [id number] [facility] 00:00:00 00:00:00 TZU-RAI 2023-07-07 2023-07-07 Outpatient VIRGILIO MARTINS SLE [id number] SLEH 00:00:00 00:00:00 TZU-RAI 2023-07-07 2023-07-07 Outpatient JOLLY COX SLE SLE [id number] SLEH 00:00:00 00:00:00 TZU-RAI 2023-07-07 2023-07-07 Outpatient [facility] [id number] SLEH 00:00:00 00:00:00 TZU-RAI 2023-07-06 2023-07-06 Outpatient VIRGILIO GASTELUM SLE [id number] SLEH 11:54:59 11:54:59 KEANU 2023-07-05 2023-07-05 Outpatient [facility] [id number] SLEH 14:53:12 14:53:12 KEANU 2023-07-05 2023-07-05 Emergency [facility]LLY [facility]OLA [facility] [id number] SLEH 01:39:35 01:39:35 GOLDEN 2023-07-05 2023-07-05 Outpatient JOLLY GAXIOLA, SLEH SLEH [id number] SLEH 01:28:55 01:28:55 GOLDEN 2023-07-04 2023-07-04 Outpatient JOLLY GLOVER, SLEH SLEH [id number] SLEH 10:38:23 23:59:00 LUPE 2023-07-04 2023-07-04 Outpatient JOLLY COX, SLEH SLEH [id number] SLEH 08:06:23 10:37:00 TZU-RAI 2023-06-30 2023-06-30 Outpatient EL OSVALDO, SLEH SLEH [id number] SLEH 12:12:53 23:59:00 DANUTA 2023-06-30 2023-06-30 Outpatient EL SLEH SLEH [id number] SLEH 13:33:52 13:33:52 2023-06-30 2023-06-30 Outpatient JOLLY COX SLEH SLEH [id number] SLEH 08:07:43 12:11:00 ROBERTOU-RAI 2023-06-30 2023-06-30 Outpatient JOLLY COX SLEH SLEH [id number] SLEH 08:07:12 08:06:00 ROBERTOU-RAI 2023-06-27 2023-06-28 Emergency ER BICETTE, SLEH Emergency [id number] SLEH 22:50:00 06:17:00 [facility] 2023-06-28 2023-06-28 Emergency EL BICETTE, SLEH SLEH [id number] SLEH 03:52:10 03:52:10 [facility] 2023-06-28 2023-06-28 Emergency EL BICETTE, SLEH SLEH [id number] SLEH 03:52:05 03:52:05 [facility] 2023-06-28 Outpatient JOLLY MUKUNDFELIPELincolnDILLON SLEH SLEH [id number] SLEH 00:10:53 00:10:53 PAO 2023-06-27 2023-06-27 Outpatient JOLLY TAYLOR, SLEH SLEH [id number] SLEH 08:43:28 22:49:00 DANUTA 2023-06-27 2023-06-27 Outpatient JOLLY COX SLEH SLEH [id number] SLEH 07:47:59 08:42:00 TZU-RAI 2023-06-23 2023-06-23 Outpatient JOLLY TAYLOR SLEH SLEH [id number] SLEH 09:31:56 23:59:00 DANUTA 2023-06-23 2023-06-23 Outpatient JOLLY COX SLEH SLEH [id number] SLEH 07:00:50 09:30:00 TZU-RAI 2023-06-23 2023-06-23 Outpatient JOLLY COX SLEH SLEH [id number] SLEH 07:00:38 09:30:00 TZU-RAI 2023-06-20 2023-06-20 Emergency ER MARY HARP SLE Emergency [id number] SLEH 09:15:00 20:10:00 2023-06-20 2023-06-20 Outpatient JOLLY BLACK SLEH SLEH [id number] SLEH 17:11:31 17:11:31 JONI-UY 2023-06-20 2023-06-20 Emergency JOLLY GARCIA SLEH SLEH [id number] SLEH 14:41:30 14:41:30 DANUTA 2023-06-20 2023-06-20 Emergency JOLLY GARCIA SLEH SLEH [id number] SLEH 12:08:48 12:08:48 DANUTA 2023-06-20 2023-06-20 Outpatient JOLLY GARCIA SLEH SLEH [id number] SLEH 09:48:47 09:48:47 DANUTA 2023-06-20 2023-06-20 Outpatient JOLLY CXO SLEH SLEH [id number] SLEH 00:00:00 00:00:00 TZU-RAI 2023-06-16 2023-06-16 Outpatient KIMMY MARTINS [facility] [id number] [facility] 08:14:27 23:59:00 TZU-RAI 2023-06-16 2023-06-16 Outpatient KIMMY MARTINS [facility] [id number] [facility] 00:00:00 00:00:00 TZU-RAI 2023-06-15 2023-06-15 Outpatient JOLLY GLOVER SLEH SLEH [id number] SLEH 16:47:28 23:59:00 LUPE 2023-06-15 2023-06-15 Outpatient [facility]FREDO [facility] [id number] SLEH 12:42:18 16:46:00 SAMANTHA 2023-06-14 2023-06-14 Outpatient [facility] [id number] SLEH 00:00:00 00:00:00 2023-06-13 2023-06-13 Outpatient JOLLY BLACK SLEH SLEH [id number] SLEH 10:05:16 23:59:00 JONI-UY 2023-06-13 2023-06-13 Outpatient EL SLEH SLEH [id number] SLEH 10:56:23 10:56:23 2023-06-13 2023-06-13 Outpatient [facility]LLY [facility]FREDO [facility] [id number] SLEH 08:03:50 10:04:00 SAMANTHA 2023-06-10 2023-06-10 Outpatient VIRGILIO RUSSO SLE [id number] [facility] 00:00:00 00:00:00 SAMANTHA 2023-06-10 2023-06-10 Outpatient JOLLY CORONA [facility] [id number] [facility] 00:00:00 00:00:00 SAMUEL 2023-06-09 2023-06-09 Outpatient KIMMY MARTINS [facility] [id number] [facility] 11:12:38 23:59:00 TZU-RAI 2023-06-09 2023-06-09 Outpatient JOLLY COX [facility] [id number] [facility] 10:46:08 11:11:00 TZU-RAI 2023-06-09 2023-06-09 Outpatient JOLLY COX [facility] [id number] [facility] 10:45:42 10:45:42 TZU-RAI 2023-06-07 2023-06-07 Outpatient VIRGILIO MARTINS [facility] [id number] [facility] 12:11:39 23:59:00 TZU-RAI 2023-06-07 2023-06-07 Outpatient [facility] [id number] [facility] 09:13:01 09:13:01 TZU-RAI 2023-06-06 2023-06-06 Outpatient JOLLY BLACK [facility] [id number] [facility] 11:33:09 23:59:00 MARSHA 2023-06-06 2023-06-06 Outpatient JOLLY ALFREDO [facility] [id number] [facility] 08:36:02 11:32:00 SAMANTHA 2023-06-03 2023-06-03 Outpatient JOLLY GLOVER [facility] SLEH [id number] SLEH 16:39:23 23:59:00 LUPE 2023-06-03 2023-06-03 Outpatient JOLLY ALFREDO SLEH SLEH [id number] SLEH 10:49:10 16:38:00 SAMANTHA 2023-06-03 2023-06-03 Outpatient JOLLY CORONA SLEH SLEH [id number] SLEH 10:48:58 10:48:58 SAMUEL 2023-05-26 2023-06-02 Inpatient ER MADHAVI, [facility] [id number] SLEH 16:22:00 13:17:00 ANANDA 2023-05-31 2023-05-31 Outpatient EL SLEH SLEH [id number] SLEH 00:00:00 00:00:00 2023-05-31 2023-05-31 Outpatient SLEH SLEH [id number] SLEH 00:00:00 00:00:00 2023-05-30 2023-05-30 Inpatient ER BRANDON SLEH SLEH [id number] SLEH 11:51:19 23:59:00 ZAKIA 2023-05-30 2023-05-30 Inpatient ER BRANDON SLEH SLEH [id number] SLEH 11:50:53 00:00:00 ZAKIA 2023-05-30 2023-05-30 Outpatient JOLLY ALFREDO SLEH SLEH [id number] SLEH 00:00:00 00:00:00 SAMANTHA 2023-05-27 2023-05-27 Inpatient ER MERCHANT SLEH SLEH [id number] SLEH 08:02:45 00:00:00 RIGO 2023-05-27 2023-05-27 Inpatient ER , SLEH SLEH [id number] SLEH 08:02:37 00:00:00 RIGO 2023-05-27 2023-05-27 Outpatient JOLLY ALFREDO SLEH SLEH [id number] SLEH 00:00:00 00:00:00 SAMANTHA 2023-05-27 2023-05-27 Outpatient JOLLY CORONA SLEH SLEH [id number] SLEH 00:00:00 00:00:00 SAMUEL 2023-05-26 2023-05-26 Emergency ER QUILES, SLEH SLEH [id number] SLEH 17:16:04 17:16:04 DAVID 2023-05-25 2023-05-26 Emergency ER [facility] Emergency 20 [id number] SLEH 18:49:00 04:00:00 , JEAN 2023-05-23 2023-05-23 Outpatient JOLLY TAYLOR SLEH SLEH [id number] SLEH 09:10:26 23:59:00 DANUTA 2023-05-23 2023-05-23 Outpatient JOLLY ALFREDO SLEH SLEH [id number] SLEH 08:08:23 09:09:00 SAMANTHA 2023-05-20 2023-05-20 Outpatient CARLOS HANLEY SLEH SLEH [id number] SLEH 13:12:30 23:59:00 2023-05-20 2023-05-20 Outpatient JOLLY GONZALEZ SLEH SLEH [id number] SLEH 08:37:29 13:11:00 RIMMA 2023-05-20 2023-05-20 Outpatient JOLLY ALFREDO SLEH SLEH [id number] SLEH 07:56:53 07:59:00 SAMANTHA 2023-05-20 2023-05-20 Outpatient EL CHLOE SLEH SLEH [id number] SLEH 07:56:34 07:59:00 SAMUEL 2023-05-13 2023-05-18 Inpatient ER FEMI, SLEH Emergency 20 [id number] SLEH 09:46:00 17:00:00 JIM 2023-05-17 2023-05-17 Inpatient ER BRETT JENSEN SLEH SLEH [id number] SLEH 08:32:28 00:00:2023-05-17 2023-05-17 Outpatient KIMMY RUSSO SLSL [id number] SLSL 00:00:00 00:00:00 SAMANTHA 2023-05-13 2023-05-13 Emergency ER AMY, SLEH SLE [id number] SLEH 14:12:01 14:12:01 YULISA 2023-05-13 2023-05-13 Emergency ER FORNAALBERTO, SLEH SLEH [id number] SLEH 14:01:15 14:01:15 YULISA 2023-05-13 2023-05-13 Emergency ER FORNAALBERTO, SLEH SLE [id number] SLEH 11:23:31 11:23:31 YULISA 2023-05-13 2023-05-13 Emergency ER AMY SLEH SLE [id number] SLEH 10:18:21 10:18:21 YULISA 2023-05-13 2023-05-13 Outpatient JOLLY ALFREDO SLE SLE [id number] SLEH 00:00:00 00:00:00 SAMANTHA 2023-05-13 2023-05-13 Outpatient EL CHLOE SLE SLE [id number] SLEH 00:00:00 00:00:00 SAMUEL 2023-05-13 2023-05-13 Outpatient JOLLY CORONA SLE SLE [id number] SLEH 00:00:00 00:00:00 SAMUEL 2023-05-13 2023-05-13 Outpatient EL SLE SLE [id number] SLEH 00:00:00 00:00:00 2023-05-12 2023-05-12 Outpatient EL SLE SLE [id number] SLEH 10:39:15 10:39:22 2023-05-12 2023-05-12 Outpatient EL SLE SLE [id number] SLEH 00:00:00 00:00:00 2023-05-10 2023-05-11 Outpatient ER KYLE, SLE Emergency [id number] SLEH 00:41:00 14:01:00 ASHLEY 2023-05-10 2023-05-10 Outpatient ER GEORGE, SLE SLE [id number] SLEH 11:59:09 11:59:09 LUPE 2023-05-10 2023-05-10 Outpatient ER FRANCOISE SLEH SLE [id number] SLEH 09:15:25 09:15:25 ABRAM 2023-05-10 2023-05-10 Outpatient ER WAYNE SLEH SLE [id number] SLEH 09:14:23 09:14:23 THUYEN 2023-05-10 2023-05-10 Emergency ER WAYNE SLEH SLE [id number] SLE[facility] 04:55:45 04:55:45 [facility] 2023-05-10 Emergency ER WAYNE SLEH SLE [id number] SLEH 02:29:41 02:29:41 [facility] 2023-05-10 2023-05-10 Emergency ER WAYNE SLEH SLE [id number] SLEH 01:38:35 01:38:35 [facility] 2023-05-09 2023-05-09 Outpatient EL KATJA, [facility] Surgery [id number] SLEH 06:44:00 16:39:00 HIRAM 2023-05-09 2023-05-09 [facility] [id number] [facility] 09:38:48 09:38:48 LUPE 2023-05-09 2023-05-09 [facility] [id number] SLEH 06:04:26 06:04:26 [facility] 2023-05-06 2023-05-06 [facility] [id number] SLEH 14:16:44 23:59:00 JONI-UJalil 2023-05-06 2023-05-06 Outpatient EL KELLIMarcin, SLE SLE [id number] SLEH 08:03:11 14:15:00 SAMUEL 2023-05-06 2023-05-06 Outpatient EL SAYDA, SLE SLE [id number] SLEH 08:02:59 08:02:00 SAMANTHA 2023-05-06 2023-05-06 Outpatient EL SLE SLE [id number] SLEH 00:00:00 00:00:00 2023-05-06 2023-05-06 Outpatient EL SLE SLEH [id number] SLEH 00:00:00 00:00:00 2023-05-02 2023-05-02 Outpatient JOLLY BLACK SLEH SLEH [id number] SLEH 10:32:06 23:59:00 JONINathaliaUJalil 2023-05-02 2023-05-02 Outpatient JOLLY ALFREDO SLEH SLEH [id number] SLEH 08:08:40 10:31:00 SAMANTHA 2023-04-29 2023-04-29 Outpatient JOLLY TAYLOR SLEH SLEH [id number] SLEH 11:05:34 23:59:00 DANUTA 2023-04-29 2023-04-29 Outpatient JOLLY ALFREDO SLEH SLEH [id number] SLEH 07:54:36 11:04:00 SAMANTHA 2023-04-25 2023-04-25 Outpatient JOLLY TAYLOR SLEH SLEH [id number] SLEH 10:41:00 23:59:00 DANUTA 2023-04-25 2023-04-25 Outpatient [place]FREDO [place] [facility] [id number] SLEH 08:15:21 10:40:00 SAMANTHA 2023-04-22 2023-04-22 Outpatient CARLOS HANLEY SLEH SLEH [id number] SLEH 13:56:22 23:59:00 2023-04-22 2023-04-22 Outpatient VIRGILIO RUSSO SLEH [id number] SLEH 08:46:59 13:55:00 SAMANTHA 2023-04-22 2023-04-22 Outpatient JOLLY ALFREDO SLEH SLEH [id number] SLEH 08:46:15 13:55:00 SAMANTHA 2023-04-21 2023-04-21 Outpatient EL PATRICIA SLEH SLE [id number] SLEH 08:48:47 23:59:00 AMIE 2023-04-19 2023-04-19 Outpatient JOLLY ALFREDO SLEH SLEH [id number] SLEH 13:47:04 13:47:04 SAMANTHA 2023-04-18 2023-04-18 Emergency ER JOSE DAVID, [facility] Emergency [id number] SLEH 09:09:00 21:34:00 MARCIN 2023-04-18 2023-04-18 Emergency ER WAYNE, SLEH SLE [id number] SLEH 15:35:24 15:35:24 JONI-UY 2023-04-18 2023-04-18 Emergency ER JOSELIN SLE SLEH [id number] SLEH 13:28:04 13:28:04 , JEAN 2023-04-18 2023-04-18 Emergency ER JOSELIN SLE SLE [id number] SLEH 09:44:58 09:44:58 , JEAN 2023-04-18 2023-04-18 Outpatient EL SLEH SLE [id number] SLEH 00:00:00 00:00:00 2023-04-18 2023-04-18 Outpatient EL LISA, SLEH SLE [id number] SLEH 00:00:00 00:00:00 [facility] 2023-04-18 2023-04-18 Outpatient EL SLEH SLE [id number] SLEH 00:00:00 00:00:00 2023-04-16 2023-04-16 Emergency ER [facility] Emergency [id number] SLEH 11:50:00 19:19:00 KRIS ARAGON 2023-04-16 2023-04-16 Emergency ER BRIGIDO, SLEH SLE [id number] SLEH 12:38:50 12:38:50 IFRAH 2023-04-15 2023-04-15 Outpatient EL WAYNE, SLEH SLE [id number] SLEH 11:53:18 23:59:00 JONI-UY 2023-04-15 2023-04-15 Outpatient EL SAYDA, SLEH SLE [id number] SLEH 08:00:05 11:52:00 SAMANTHA 2023-04-12 2023-04-12 Outpatient EL JEANNETTE, SLEH SLEH [id number] SLEH 15:44:45 23:59:00 ARCENIO 2023-04-12 2023-04-12 Outpatient EL JEANNETTE, SLE Surgery [id number] SLEH 06:46:00 14:10:00 ARCENIO 2023-04-11 2023-04-11 Outpatient EL WAYNE, SLEH SLEH [id number] SLEH 12:43:09 23:59:00 JONI-UY 2023-04-11 2023-04-11 Outpatient JOLLY ALFREDO SLEH SLEH [id number] SLEH 08:40:34 12:42:00 SAMANTHA 2023-04-08 2023-04-08 Outpatient JOLLY BLACK SLEH SLEH [id number] SLEH 14:45:43 23:59:00 JONI-UY 2023-04-08 2023-04-08 Outpatient JOLLY ALFREDO SLEH SLEH [id number] SLEH 13:22:14 14:44:00 SAMANTHA 2023-04-08 2023-04-08 Outpatient JOLLY LAZO SLEH SLEH [id number] SLEH 00:00:00 00:00:00 ARCENIO 2023-04-04 2023-04-04 Emergency ER ALISSA, SLEH SLE [id number] SLEH 15:50:34 23:59:00 ROXANNA 2023-04-04 2023-04-04 Emergency ER WAYNE, SLEH Emergency [id number] SLEH 10:52:00 18:02:00 SERGIO 2023-04-04 2023-04-04 Emergency ER ALISSA, SLEH SLEH [id number] SLEH 11:09:51 11:09:51 ROXANNA 2023-04-04 2023-04-04 Outpatient JOLLY TAYLOR SLEH SLEH [id number] SLEH 09:07:02 10:51:00 DANUTA 2023-04-04 2023-04-04 Outpatient JOLLY ALFREDO, SLEH SLEH [id number] SLEH 07:11:40 09:06:00 SAMANTHA 2023-04-01 2023-04-01 Outpatient CARLOS HANLEY SLEH SLEH [id number] SLEH 14:06:52 23:59:00 2023-04-01 2023-04-01 Outpatient JOLLY ALFREDO SLEH SLEH [id number] SLEH 11:23:55 14:05:00 SAMANTHA 2023-03-30 2023-03-30 Emergency ER [facility] SLEH Emergency 20 [id number] SLEH 12:54:00 21:42:00 RO, LEONARD 2023-03-30 2023-03-30 Emergency ER [facility] SLE SLE [id number] SLEH 19:18:13 19:18:13 ROLEONARD 2023-03-28 2023-03-28 [facility] [id number] SLEH 10:32:44 23:59:00 JONI-UY 2023-03-28 2023-03-28 Outpatient JOLLY ALFREDO, SLE SLE [id number] SLEH 08:27:00 10:31:00 SAMANTHA 2023-03-25 2023-03-25 [facility] [id number] SLEH 14:29:31 23:59:00 JONI-UY 2023-03-25 2023-03-25 [facility] [id number] SLEH 10:29:27 14:28:00 SAMANTHA 2023-03-18 2023-03-21 Inpatient ER [facility], [facility] [id number] SLEH 14:40:00 21:17:00 NAJAMUS 2023-03-18 2023-03-18 Outpatient JOLLY ALFREDO, SLSL SLSL [id number] SLSL 00:00:00 00:00:00 SAMANTHA 2023-03-14 2023-03-14 Outpatient HARRIS, SLSL SLSL [id number] SLSL 14:32:47 23:59:00 MP 2023-03-14 2023-03-14 Outpatient JOLLY ALFREDO, SLSL SLSL [id number] SLSL 13:16:04 14:31:00 SAMANTHA 2023-03-11 2023-03-11 Outpatient BLOCK, SLSL SLSL [id number] SLSL 11:49:46 23:59:00 CAROLYN 2023-03-11 2023-03-11 Outpatient JOLLY SAYDA, SLSL SLSL [id number] SLSL 10:38:51 11:48:00 SAMANTHA 2023-03-09 2023-03-09 Outpatient EL MAYNORKIRT, [facility] [id number] SLEH 15:31:24 23:59:00 AMIE 2023-03-09 2023-03-09 Outpatient JOLLY GOMEZ SLE SLE [id number] SLEH 15:31:05 23:59:00 AMIE 2023-03-09 2023-03-09 Outpatient VIRGILIO DOAN SLE [id number] SLEH 15:27:00 15:30:00 AMIE 2023-03-09 2023-03-09 Outpatient VIRGILIO DOAN SLE [id number] SLEH 11:45:35 14:14:00 AMIE 2023-03-09 2023-03-09 Outpatient JOLLY HIGHTOWER SLE SLE [id number] SLEH 13:43:52 13:43:52 [facility] 2023-03-09 2023-03-09 Outpatient EL SLE SLE [id number] SLEH 13:38:04 13:38:04 2023-03-09 2023-03-09 Outpatient JOLLY [facility], [facility] [id number] [facility] 12:00:00 12:00:00 [facility]-09 2023-03-09 Outpatient JOLLY GOMEZ SLE SLE [id number] SLEH 11:45:00 11:44:00 AMIE 2023-03-09 2023-03-09 Outpatient EL SLE SLE [id number] SLEH 07:29:31 07:29:31 2023-03-09 2023-03-09 Outpatient EL SLE SLE [id number] SLEH 07:28:52 07:28:52 2023-03-09 2023-03-09 Outpatient EL VERONICA KRAMER SLE SLEH [id number] SLEH 07:28:25 07:28:25 2023-03-09 2023-03-09 Outpatient EL SLE SLE [id number] SLEH 07:27:43 07:27:43 2023-03-09 2023-03-09 Outpatient JOLLY PASCAL SLE SLEH [id number] SLEH 07:27:20 07:27:20 LUCY 2023-03-09 2023-03-09 Outpatient EL SLE SLE [id number] SLEH 07:26:14 07:26:14 2023-03-09 2023-03-09 Outpatient EL SLE SLE [id number] SLEH 07:25:32 07:25:32 2023-03-09 2023-03-09 Outpatient EL SLE SLE [id number] SLEH 07:25:08 07:25:08 2023-03-09 2023-03-09 Outpatient EL PATRICIA, SLE SLE [id number] SLEH 00:00:00 00:00:00 AMIE 2023-03-09 2023-03-09 [id number] SLEH 00:00:00 00:00:00 AMIE 2023-03-08 2023-03-08 Outpatient NATALEE, GOLDIE SLSL SLSL [id number] SLSL 12:43:34 23:59:00 2023-03-08 2023-03-08 Outpatient EL GEORGIANA, SLSL SLSL [id number] SLSL 11:13:32 12:42:00 DIPABEN 2023-03-08 2023-03-08 Out[facility]GIANA[facility] [id number] SLEH 00:00:00 00:00:00 DIPABEN 2023-03-03 2023-03-03 Outpatient EL GEORGIANA, SLSL Inter Rad [id number] SLSL 12:17:20 15:00:00 DIPABEN 2023-03-03 2023-03-03 Outpatient EL BLOCK, SLSL SLSL [id number] SLSL 14:18:43 14:18:43 CAROLYN 2023-03-02 2023-03-02 Out[facility]GIANA[facility] [id number] SLEH 00:00:00 00:00:00 DIPABEN 2023-02-26 2023-02-26 Emergency ER POLO, [facility] Emergency [id number] SLEH 15:45:00 22:21:00 ERIKA 2023-02-26 2023-02-26 Emergency ER POLO, [facility] [id number] SLEH 20:13:37 20:13:37 ERIKA 2023-02-26 2023-02-26 [facility] [id number] SLEH 00:00:00 00:00:00 ERIKA 2023-02-26 2023-02-26 Outpatient POLO SLEH SLEH [id number] SLEH 00:00:00 00:00:00 ERIKA 2023-02-21 2023-02-21 Outpatient JOLLY TAYLOR SLEH SLEH [id number] SLEH 11:38:15 23:59:00 DANUTA 2023-02-21 2023-02-21 Outpatient JOLLY STONER SLEH SLE [id number] SLEH 08:20:14 11:37:00 DIPABEN 2023-02-17 2023-02-17 Outpatient OSVALDO SLEH SLE [id number] SLEH 08:30:58 23:59:00 DANUTA 2023-02-15 2023-02-17 Inpatient ER HAMIDA, [facility] Med [id number] SLEH 22:54:00 11:59:00 MATY 2023-02-16 2023-02-16 Outpatient JOLLY WRIGHT SLE SLE [id number] SLEH 06:04:31 23:59:00 ASHLEY 2023-02-04 2023-02-04 Outpatient JOLLY STONER SLE SLE [id number] SLEH 09:09:56 23:59:00 DIPABEN 2023-01-25 2023-01-25 Outpatient JOLLY ALFREDO SLE SLE [id number] SLEH 13:24:47 13:24:47 SAMANTHA 2023-01-20 2023-01-23 Inpatient ER [facility], [facility] Emergency [id number] SLEH 13:21:00 15:13:00 HEATHER 2022-12-29 2023-01-04 Inpatient ER BRIGIDA, [facility] Internal [id number] SLEH 12:45:00 18:19:00 KHMEETEETSEN Med 2022-12-31 2022-12-31 Anesthesia Pathikonda, Du [facility] [id number] [facility] 08:14:00 09:23:00 Event Jamey [facility] 2022-12-31 2022-12-31 Surgery Fabiano, [facility] [id number] 08:00:00 09:00:00 [facility] 2022-12-29 2022-12-29 Office Paul Sutton [facility] [id number] [facility] 12:00:00 13:00:00 Visit Amie Gomez [facility] 2022-12-29 2022-12-29 Outpatient EL PATRICIA [facility] [id number] SLE 00:00:00 00:00:00 AMIE 2022-12-29 2022-12-29 Travel [facility] [id number] [facility] 00:[facility] 00:00:00 [facility] 2022-11-25 2022-12-01 Inpatient ER [facility] [id number] SLE 04:43:00 11:42:00 [facility] 2022-11-25 2022-12-01 Hospital ER Megha Singera [facility] [id number] [facility] 04:43:00 11:42:[address] [facility] Dipak Stevenson [facility] 2022-11-30 2022-11-30 Anesthesia Eun Gregory [facility] [id number] [address] 08:16:00 09:34:00 Event Monica Ruiz [facility] 2022-11-30 2022-11-30 Surgery Jeannette, [facility] [id number] 08:02:00 09:00:00 [facility] Results Test Description Test Time Test Comments Results Result Comments Source BLOOD CULTURE 2023-07-26 18:00:40 Test Item Value Reference Range Interpretation Comme nts CULTURE (BEAKER) (test code = 1095) No growth in 5 days BLOOD [id number] 11:00:40 Test Item Value Reference Range Interpretation Comments CULTURE (BEAKER) (test No growth in 5 days code = 1095) The specimen volume collected for this blood culture was below the optimum (10 mL per bottle or 20 mL total). Use of lower volumes may adversely affect recovery and/or detection times of some organisms.US [id number] 10:02:44[facility] : 1965 Sex: FUltrasound guided left thoracentesis.Clinical History: Left pleural effusion.Modality: Ultrasound.Sedation: None. Cloth Washer Back Tender: Lupe Corralistant: None. Estimated Blood Loss: 1ccSpecimen: 2300 cc of cloudy serosanguineous fluid. Technique: Informed consent was obtained. The risks of pain, b leeding,infection, lung collapse/pneumothorax, injury to adjacent structures,and adverse [...] guided left thoracentesis.Electronically Signed By: Lj Stevenson MD07/26/2023 10:04 CDTWorkstation Name: [id number] FLUID CELL COUNT WITH DIFFERENTIAL 2023-07-25 12:43:03 Test Item Value Reference Range Interpretation Comments APPEARANCE FLUID (BEAKER) (test Cloudy Clear A code = 510) COLOR FLUID (BEAKER) (test code [place] Colorless, Straw A = 511) RBC FLUID (BEAKER) (test code = 98696 /cu mm <=1 H 513) TOTAL NUCLEATED CELL COUNT 481 /cu mm <=5 H (BEAKER) (test code = 1442) ADJUSTED WBC FLUID (BEAKER) 476 /cu mm <=5 H (test code = 1691) LINING CELLS/OTHERS, CALCULATED 5 /cu mm <=1 H (BEAKER) (test code = 1590) NEUTROPHILS FLUID (BEAKER) 12 % (test code = 1656) LYMPHS FLUID (BEAKER) (test 54 % code = 488) MONO/MACROPHAGE FLUID (BEAKER) 34 % (test code = 489) EOSINOPHILS FLUID (BEAKER) 2 % (test code = 491) BASO FLUID (BEAKER) (test code 0 % = 492) CONTAINER BODY FLUID (BEAKER) Sterile Vial (test code = 2873) XR CHEST 1 VIEW PORTABLE / [id number] 12:16:02 [facility] : 1965 Sex: FINDICATION: s/p left thoracentesisCOMPARISON: 05/23/2023TECHNIQUE: Single frontal view of the chest.FINDINGS: Lines, tubes, and devices: None.Lungs and pleura: Scattered linear atelectasis is present. Blunting ofthe left costophrenic sulcus, which may represent pleuralthickening/scarring or small pleural effusion. No pneumothorax.Heart and mediastinum: Normal heart size. Unremarkable mediastinalcontours.Osseous structures: No acute abnormality. Mild spondylosis and facetarthropathy are present within the spine.Other: None.IMPRESSION:1. No pneumothorax identified.2. Blunting of the left costophrenic sulcus, which may representpleural thickening/scarring or small pleural effusion. Electronically Signed By: Brian Roper09/24/2022 12:18 CDTWorkstation Name: [id number] 2023-07-25 09:02:48Medical Cytology Report Case: [id number] Authorizing Provider: Rigo Sanz MD Collected: 07/21/2023 03:03 PM Ordering Location: [address] Received: 07/22/2023 09:02 AM Service Pathologist: Salvador Davenport MD Specimen: Pleural, Left LEFT PLEURAL FLUID (CYTOSPINS AND CELL BLOCK): - NEGATIVEFOR MALIGNANCY Chronic inflammatory cells and mesothelial cells seen. Signing Pathologist Direct Phone Line: [phone] signed by Salvador Davenport MD on 07/25/2023 at 9:02 [id number], [id number] y.o. F with decompensated cirrhosis on transplant list, recurrent hydrothorax and ascites needing outpt thora/sylvia, HE, CKD who was discharged on 07/12 with hepatic encephalopathy and now presents withAKI and concern for spontaneous bacterial empyema from last outpt thoracentesis. LEFT PLEURAL FLUIDA. Pleural, LeftReceived 1100 ml bloody gelatinous fluid; prepared 4 cytospins and cell block(A2)(collodion bag)- the cell block was fixed in formalin at 11:46 on 07/22/2023erformed.[facility], Department of Pathology, [address] [place] [address], [facility], [facility] of [facility]ology, [address] [place] [address], [facility], Department of Pathology, [address] [place] [address], OCDILGPRY [id number] 08:16:19 Test Item Value Reference Range Interpretation Comments CULTURE (BEAKER) (test No anaerobes isolated code = 1095) BODY FLUID CULTURE + GRAM [id number] 08:47:31 Test Item Value Reference Range Interpretation Comments CULTURE (BEAKER) No growth (test code = 1095) GRAM STAIN RESULT 2+ WBCs Initial gr am stain (BEAKER) (test performed hui or to code = 1123) incubation. 07/21/2023 6:59 PM Karly Balnd GRAM STAIN RESULT No organisms seen Initi al gram stain (BEAKER) (test performed hui or to code = 74544) incubation. 07/21/2023 6:59 PM Karly Bland BODY FLUID CULTURE + GRAM [id number] 08:47:25 Test Item Value Reference Range Interpretation Comments CULTURE (BEAKER) (test code = 1095) No growth BLOOD [id number] 12:00:45 Test Item Value Reference Range Interpretation Comments CULTURE (BEAKER) (test No growth in 5 days code = 1095) The specimen volume collected for this blood culture was below the optimum (10 mL per bottle or 20 mL total). Use of lower volumes may adversely affect recovery and/or detection times of some organisms.BLOOD [id number] 12:00:44 Test Item Value Reference Range Interpretation Comments CULTURE (BEAKER) (test No growth in 5 days code = 1095) The specimen volume collected for this blood culture was below the optimum (10 mL per bottle or 20 mL total). Use of lower volumes may adversely affect recovery and/or detection times of some organisms.[id number] 06:44:13 Test Item Value Reference Range Interpretation Comments PHOSPHORUS (BEAKER) (test code = 3.7 mg/dL 2.3-4.7 604) Hand Salter ID Nathalia ANGEL [id number] 06:44:12 Test Item Value Reference Range Interpretation Comments MAGNESIUM (BEAKER) (test code = 2.1 mg/dL 1.6-2.6 627) Hand Salter ID Nathalia ANGEL WCOMPREHENSIVE METABOLIC [id number] 06:44:11 Test Item Value Reference Range Interpretation Comments TOTAL PROTEIN 5.2 gm/dL 6.0-8.3 L (BEAKER) (test code = 770) ALBUMIN (BEAKER) 3.1 g/dL 3.5-5.0 L (test code = 1145) ALKALINE 49 U/L 40-150 PHOSPHATASE (BEAKER) (test code = 346) BILIRUBIN TOTAL 1.6 mg/dL 0.2-1.2 H (BEAKER) (test code = 377) SODIUM (BEAKER) 138 meq/L 136-145 (test code = 381) POTASSIUM (BEAKER) 4.4 meq/L 3.5-5.1 (test code = 379) CHLORIDE (BEAKER) 113 meq/L 98-107 H (test code = 382) CO2 (BEAKER) (test 17 meq/L 22-29 L code = 355) BLOOD UREA 39 mg/dL 7-21 H NITROGEN (BEAKER) (test code = 354) CREATININE 1.52 mg/dL 0.57-1.25 H (BEAKER) (test code = 358) GLUCOSE RANDOM 93 mg/dL 70-105 (BEAKER) (test code = 652) CALCIUM (BEAKER) 8.0 mg/dL 8.4-10.2 L (test code = 697) AST (SGOT) 33 U/L 5-34 (BEAKER) (test code = 353) ALT (SGPT) 15 U/L 6-55 (BEAKER) (test code = 347) EGFR (BEAKER) 39 Interpretatio n of eGFR (test code = [...] not appl icable for dialysis patien ts Hand Salter ID - STANLEY WPROTHROMBIN [id number] 06:05:20 Test Item Value Reference Range Interpretation Comments PROTIME (BEAKER) (test code = 23.8 seconds 11.9-14.2 H 759) INR (BEAKER) (test code = 370) 2.19 <=5.90 RECOMMENDED COUMADIN/WARFARIN INR THERAPY RANGESSTANDARD DOSE: 2.0 - 3.0 Includes: PROPHYLAXIS for venous thrombosis, systemic embolization; TREATMENT for venous thrombosis and/or pulmonary embolus.HIGH RISK: Target INR is 2.5-3.5 for patients with mechanical heart valves.CBC W/PLT COUNT & AUTO [id number] 05:54:06 Test Item Value Reference Range Interpretation Comments WHITE BLOOD CELL COUNT (BEAKER) 3.7 K/ L 3.5-10.5 (test code = 775) RED BLOOD CELL COUNT (BEAKER) 2.38 M/ L 3.93-5.22 L (test code = 761) HEMOGLOBIN (BEAKER) (test code = 8.1 GM/DL 11.2-15.7 L 410) HEMATOCRIT (BEAKER) (test code = 24.7 % 34.1-44.9 L 411) MEAN CORPUSCULAR VOLUME [...] (test code = 430) MONOCYTES RELATIVE PERCENT 10 % (BEAKER) (test code = 431) EOSINOPHILS RELATIVE PERCENT 4 % (BEAKER) (test code = 432) BASOPHILS RELATIVE PERCENT 1 % (BEAKER) (test code = 437) NEUTROPHILS ABSOLUTE COUNT 2.63 K/ L 1.56-6.13 (BEAKER) (test code = 670) LYMPHOCYTES ABSOLUTE COUNT 0.47 K/ L 1.18-3.74 L (BEAKER) (test code = 414) MONOCYTES ABSOLUTE COUNT (BEAKER) 0.35 K/ L 0.24-0.36 (test code = 415) EOSINOPHILS ABSOLUTE COUNT 0.16 K/ L 0.04-0.36 (BEAKER) (test code = 416) BASOPHILS ABSOLUTE COUNT (BEAKER) 0.02 K/ L 0.01-0.08 (test code = 417) IMMATURE GRANULOCYTES-RELATIVE 0.50 % 0.00-1.00 PERCENT (BEAKER) (test code = 2801) CALCIUM, [id number] 05:30:22 Test Item Value Reference Range Interpretation Comments CALCIUM IONIZED (BEAKER) (test 1.11 mmol/L 1.12-1.27 L code = 698) PH, BLOOD (BEAKER) (test code = 7.40 1810) XR CHEST 1 VIEW PORTABLE / [id number] 18:25:04 [facility] : 1965 Sex: FTECHNIQUE: Frontal view of the chest.INDICATION: s/p left thora.COMPARISON: 07/18/2023.FINDINGS:LINES/TUBES: None.HEART AND MEDIASTINUM: Cardiomediastinal contour is stable. LUNGS: The lungs are well inflated and clear. No consolidation orpulmonary edema.PLEURA: Tiny residual left pleural effusion. No pneumothorax.SOFT TISSUES AND BONES: Unremarkable.IMPRESSION:1. Tiny residual left pleural effusion. No pneumothorax.Electronically Signed By: Adilia Polanco07/21/2023 18:27 CDTWorkstation Name: [id number] FLUID CELL COUNT WITH [id number] 17:41:16 Test Item Value Reference Range Interpretation Comments APPEARANCE FLUID (BEAKER) (test Turbid Clear A code = 510) COLOR FLUID (BEAKER) (test code [place] Colorless, Straw A = 511) RBC FLUID (BEAKER) (test code = 71995 /cu mm <=1 H 513) TOTAL NUCLEATED CELL COUNT 639 /cu mm <=5 H (BEAKER) (test code = 1442) ADJUSTED WBC FLUID (BEAKER) 639 /cu mm <=5 H (test code = 1691) LINING CELLS/OTHERS, CALCULATED 0 /cu mm <=1 (BEAKER) (test code = 1590) NEUTROPHILS FLUID (BEAKER) 2 % (test code = 1656) LYMPHS FLUID (BEAKER) (test 49 % code = 488) MONO/MACROPHAGE FLUID (BEAKER) 49 % (test code = 489) EOSINOPHILS FLUID (BEAKER) 0 % (test code = 491) BASO FLUID (BEAKER) (test code 0 % = 492) CONTAINER BODY FLUID (BEAKER) Sterile Vial (test code = 2873) BODY FLUID CELL COUNT WITH [id number] 17:29:15 Test Item Value Reference Range Interpretation Comments APPEARANCE FLUID (BEAKER) (test Turbid Clear A code = 510) COLOR FLUID (BEAKER) (test code [place] Colorless, Straw A = 511) RBC FLUID (BEAKER) (test code = 49454 /cu mm <=1 H 513) TOTAL NUCLEATED CELL COUNT 432 /cu mm <=5 H (BEAKER) (test code = 1442) ADJUSTED WBC FLUID (BEAKER) 428 /cu mm <=5 H (test code = 1691) LINING CELLS/OTHERS, CALCULATED 4 /cu mm <=1 H (BEAKER) (test code = 1590) NEUTROPHILS FLUID (BEAKER) 5 % (test code = 1656) LYMPHS FLUID (BEAKER) (test 83 % code = 488) MONO/MACROPHAGE FLUID (BEAKER) 12 % (test code = 489) EOSINOPHILS FLUID (BEAKER) 0 % (test code = 491) BASO FLUID (BEAKER) (test code 0 % = 492) CONTAINER BODY FLUID (BEAKER) Sterile Vial (test code = 2873) [id number] 17:21:57Medical Cytology Report Case: [id number] Authorizing Provider: Margie Amaral Collected: 07/18/2023 11:57 AM MD Brigida Ordering Location: [address] Received: 07/19/2023 08:57 AM Service Pathologist: Hany Ferrer MD Specimen: Pleural, Left LEFT PLEURAL FLUID (CYTOSPINS AND CELL BLOCK): - NO MALIGNANT CELLS IDENTIFIED - REACTIVE MESOTHELIAL CELLS AND MIXED INFLAMMATORY CELLS PRESENT Signing Pathologist Direct Phone Line: [phone] signed by Hany Ferrer MD on 07/21/2023 at 5:21 PMPlease also see cytopathology case: [id number], [id number], [id number], [id number] y.o. F with decompensated cirrhosis on transplant list, recurrent hydrothorax and ascites needing outpt thora/sylvia, HE, CKD who was discharged on 07/12 with hepatic encephalopathy and now presents with EVELINE and concern for spontaneous bacterial empyema from last outpt thoracentesis. LEFT PLEURAL FLUIDA. Pleural, LeftReceived 1200 ml opaque pink gelatinous fluid; prepared 4 cytospins and cell block(A2) - the cell block was fixed in formalin at 13:39 on 3Performed.SatisfactoryThe interpretation of this case included the use of immunohistochemistry or special stains.MOC31- negativeCalretinin- positiveCon trol Slides Examined: In-house known positive controls were evaluated along with the test tissue. These control slides run alongside of the patients sample show appropriate staining. Internal positive and negative controls when available are evaluated Immunohistochemistry technical testing was performed at [facility], Pathology Laboratory where it was developed and [...] Improvement Amendments of 1988 (CLIA-88) as qualified toperform high complexity clinical laboratory testing.[facility], Department of Pathology, [address] [place] [address], [facility], [facility], [address] [place], [place] [address], [facility], [facility] of [facility], [address] [place] [address], FX [id number] 15:32:30 [facility] : 1965 Sex: FUltrasound guided paracentesis.Clinical History: Ascites.Sedation: None. Cloth Washer Back Tender: Danuta ZhaoCAssistant: None. Estimated Blood Loss: < 1 cc.Specimen: 2250 cc of serosanguineous fluid, samples sent to [...] anesthesia was achieved with 2% lidocaine,a 5 [place]au[place] one-step catheter was advanced into the peritoneal cavityunder ultrasound guidance. After completion of drainage, the catheterwas removed. There was no evidence of complication.IMPRESSION:Impression:Successful ultrasound guided paracentesis.ElectronicallySigned By: Galen Genao09/20/2022 15:35 CDTWorkstation Name: [id number] 15:32:29 [facility] : 1965 Sex: FUltrasound guided left thoracentesis.Clinical History: Left pleural effusion.Modality: Ultrasound.Sedation: None. Cloth Washer Back Tender: Danuta Youngt: None. Estimated Blood Loss: 1ccSpecimen: 2100 [...] ultrasound guided left thoracentesis.Electronically Signed By: Galen Odonnells109/20/2022 15:53 CDTWorkstation Name: [id number] FLUID CULTURE + GRAM [id number] 12:02:56 Test Item Value Reference Range Interpretation Comments CULTURE (BEAKER) (test code = 1095) No growth BODY FLUID CULTURE + GRAM [id number] 12:02:54 Test Item Value Reference Range Interpretation Comments CULTURE (BEAKER) No growth (test code = 1095) GRAM STAIN RESULT <1+ WBCs (BEAKER) (test code = 1123) GRAM STAIN RESULT No organisms seen Initi al gram stain (BEAKER) (test performed hui or to code = 52548) incubation. 07/19/2023 3:23 AMLouise Urick LACTATE DEHYDROGENASE (LDH)2023-07-21 11:06:37 Test Item Value Reference Range Interpretation Comments LACTATE DEHYDROGENASE (BEAKER) (test 145 U/L 125-220 code = 635) Hand Salter ID - ADMINPROTHROMBIN TIME/[id number] 10:48:51 Test Item Value Reference Range Interpretation Comments PROTIME (BEAKER) (test code = 23.5 seconds 11.9-14.2 H 759) INR (BEAKER) (test code = 370) 2.16 <=5.90 RECOMMENDED COUMADIN/WARFARIN INR THERAPY RANGESSTANDARD DOSE: 2.0 - 3.0 Includes: PROPHYLAXIS for venous thrombosis, systemic embolization; TREATMENT for venous thrombosis and/or pulmonary embolus.HIGH RISK: Target INR is 2.5-3.5 for patients with mechanical heart valves.COMPREHENSIVE METABOLIC PANEL 2023-07-21 06:38:46 Test Item Value Reference Range Interpretation Comments TOTAL PROTEIN 5.1 gm/dL 6.0-8.3 L (BEAKER) (test code = 770) ALBUMIN (BEAKER) 3.0 g/dL 3.5-5.0 L (test code = 1145) ALKALINE 59 U/L 40-150 PHOSPHATASE (BEAKER) (test code = 346) BILIRUBIN TOTAL 1.4 mg/dL 0.2-1.2 H (BEAKER) (test code = 377) SODIUM (BEAKER) 135 meq/L 136-145 L (test code = 381) POTASSIUM (BEAKER) 4.0 meq/L 3.5-5.1 (test code = 379) CHLORIDE (BEAKER) 109 meq/L 98-107 H (test code = 382) CO2 (BEAKER) (test 16 meq/L 22-29 L code = 355) BLOOD UREA 41 mg/dL 7-21 H NITROGEN (BEAKER) (test code = 354) CREATININE 1.65 mg/dL 0.57-1.25 H (BEAKER) (test code = 358) GLUCOSE RANDOM 98 mg/dL 70-105 (BEAKER) (test code = 652) CALCIUM (BEAKER) 7.5 mg/dL 8.4-10.2 L (test code = 697) AST (SGOT) 29 U/L 5-34 (BEAKER) (test code = 353) ALT (SGPT) 13 U/L 6-55 (BEAKER) (test code = 347) [...] not appl icable for dialysis patien ts Hand Salter ID - ADMINCBC (HEMOGRAM ONLY)2023-07-21 06:25:10 Test Item Value Reference Range Interpretation Comments WHITE BLOOD CELL COUNT (BEAKER) 3.9 K/ L 3.5-10.5 (test code = 775) RED BLOOD CELL COUNT (BEAKER) 2.35 M/ L 3.93-5.22 L (test code = 761) HEMOGLOBIN (BEAKER) (test code = 7.9 GM/DL 11.2-15.7 L 410) HEMATOCRIT (BEAKER) (test code = 23.9 % 34.1-44.9 L 411) MEAN CORPUSCULAR VOLUME [...] WBC 0-0 (test code = 413) PROTHROMBIN TIME/[id number] 06:17:13 Test Item Value Reference Range Interpretation Comments PROTIME (BEAKER) (test code = 23.7 seconds 11.9-14.2 H 759) INR (BEAKER) (test code = 370) 2.18 <=5.90 RECOMMENDED COUMADIN/WARFARIN INR THERAPY RANGESSTANDARD DOSE: 2.0 - 3.0 Includes: PROPHYLAXIS for venous thrombosis, systemic embolization; TREATMENT for venous thrombosis and/or pulmonary embolus.HIGH RISK: Target INR is 2.5-3.5 for patients with mechanical heart valves.[id number] 16:35:00Medical Cytology Report Case: [id number] Authorizing Provider: Margie Amaral Collected: 07/18/2023 11:05 AM MD Brigida Ordering Location: [address] Received: 07/19/2023 08:46 AM Service Pathologist: Hany Ferrer MD Specimen: Peritoneal Fluid PERITONEAL FLUID (CYTOSPINS AND CELL BLOCK): - NO MALIGNANT CELLS IDENTIFIED - REACTIVE MESOTHELIAL CELLS WITH BLOOD AND MIXED INFLAMMATORY CELLS Signing Pathologist Direct Phone Line: [phone] signed by Hany Ferrer MDon 07/20/2023 at 4:34 PMPlease also see cytopathology case: [id number], [id number] y.o. F with decomp ensated cirrhosis on transplant list, recurrent hydrothorax and ascites needing outpt thora/sylvia, HE, CKD who was discharged on 07/12 with hepatic encephalopathy and now presents with EVELINE and concern for spontaneous bacterial empyema from last outpt thoracentesis. PERITONEAL FLUIDA. Peritoneal FluidRe ceived 1400 ml opaque pink bloody gelatinous fluid; prepared 4 cytospins and cell block(A2)(collodion bag) - the cell block was fixed in formalin at 13:47 on 3Performed.[facility], Department of Pathology, [address] [place] [address], [facility], Department of [facility]ology, [address] [place] [address], [facility], Department of [facility]ology, [address] [place] [address], NBHUDOSACFFWZ METABOLIC [id number] 05:54:56 Test Item Value Reference Range Interpretation Comments TOTAL PROTEIN 5.3 gm/dL 6.0-8.3 L (BEAKER) (test code = 770) ALBUMIN (BEAKER) 3.3 g/dL 3.5-5.0 L (test code = 1145) ALKALINE 68 U/L 40-150 PHOSPHATASE (BEAKER) (test code = 346) BILIRUBIN TOTAL 1.4 mg/dL 0.2-1.2 H (BEAKER) (test code = 377) SODIUM (BEAKER) 133 meq/L 136-145 L (test code = 381) POTASSIUM (BEAKER) 4.0 meq/L 3.5-5.1 (test code = 379) CHLORIDE (BEAKER) 109 meq/L 98-107 H (test code = 382) CO2 (BEAKER) (test 17 meq/L 22-29 L code = 355) BLOOD UREA 41 mg/dL 7-21 H NITROGEN (BEAKER) (test code = 354) CREATININE 1.75 mg/dL 0.57-1.25 H (BEAKER) (test code = 358) GLUCOSE RANDOM 119 mg/dL 70-105 H (BEAKER) (test code = 652) CALCIUM (BEAKER) 7.7 mg/dL 8.4-10.2 L (test code = 697) AST (SGOT) 26 U/L 5-34 (BEAKER) (test code = 353) ALT (SGPT) 14 U/L 6-55 (BEAKER) (test code = 347) EGFR (BEAKER) 33 Interpretatio n of eGFR (test code = 1092) mL/min/1.[address] age Description sq m Result G1 Norm al or [...] not appl icable for dialysis patien ts Hand Salter ID - ADMINCBC (HEMOGRAM ONLY)2023-07-20 05:37:08 Test Item Value Reference Range Interpretation Comments WHITE BLOOD CELL COUNT (BEAKER) 3.4 K/ L 3.5-10.5 L (test code = 775) RED BLOOD CELL COUNT (BEAKER) 2.24 M/ L 3.93-5.22 L (test code = 761) HEMOGLOBIN (BEAKER) (test code = 7.5 GM/DL 11.2-15.7 L 410) HEMATOCRIT (BEAKER) (test code = 23.0 % 34.1-44.9 L 411) MEAN CORPUSCULAR VOLUME (BEAKER) 103 fL 79-95 H (test code = 753) MEAN CORPUSCULAR HEMOGLOBIN 33.5 pg 25.6-32.2 H (BEAKER) (test code = 751) MEAN CORPUSCULAR HEMOGLOBIN CONC 32.6 GM/DL 32.2-35.5 (BEAKER) (test code = 752) RED CELL DISTRIBUTION WIDTH 15.5 % 11.7-14.4 H (BEAKER) (test code = 412) PLATELET COUNT (BEAKER) (test code 63 K/CU MM 150-450 L = 756) MEAN PLATELET VOLUME (BEAKER) 11.1 fL 9.4-12.3 (test code = 754) NUCLEATED RED BLOOD CELLS (BEAKER) 0 /100 WBC 0-0 (test code = 413) BASIC METABOLIC [id number] 05:28:50 Test Item Value Reference Range Interpretation Comments SODIUM (BEAKER) 135 meq/L 136-145 L (test code = 381) POTASSIUM 4.2 meq/L 3.5-5.1 (BEAKER) (test code = 379) CHLORIDE (BEAKER) 111 meq/L 98-107 H (test code = 382) CO2 (BEAKER) 16 meq/L 22-29 L (test code = 355) BLOOD UREA 41 mg/dL 7-21 H NITROGEN (BEAKER) (test code = 354) CREATININE 2.05 mg/dL 0.57-1.25 H (BEAKER) (test code = 358) GLUCOSE RANDOM 118 mg/dL 70-105 H (BEAKER) (test code = 652) CALCIUM (BEAKER) 7.7 mg/dL 8.4-10.2 L (test code = 697) EGFR (BEAKER) 27 Interpretatio n of eGFR (test code = [...] not appl icable for dialysis patien ts Hand Salter ID - ADMINCBC W/PLT COUNT & AUTO [id number] 05:14:16 Test Item Value Reference Range Interpretation Comments WHITE BLOOD CELL COUNT (BEAKER) 3.0 K/ L 3.5-10.5 L (test code = 775) RED BLOOD CELL COUNT (BEAKER) 2.13 M/ L 3.93-5.22 L (test code = 761) HEMOGLOBIN (BEAKER) (test code = 7.1 GM/DL 11.2-15.7 L 410) HEMATOCRIT (BEAKER) (test code = 21.6 % 34.1-44.9 L 411) MEAN CORPUSCULAR VOLUME (BEAKER) 101 fL 79-95 H (test code = 753) MEAN CORPUSCULAR HEMOGLOBIN 33.3 pg 25.6-32.2 H (BEAKER) (test code = 751) MEAN CORPUSCULAR HEMOGLOBIN CONC 32.9 GM/DL 32.2-35.5 (BEAKER) (test code = 752) [...] (test code = 429) LYMPHOCYTES RELATIVE PERCENT 18 % (BEAKER) (test code = 430) MONOCYTES RELATIVE PERCENT 16 % (BEAKER) (test code = 431) EOSINOPHILS RELATIVE PERCENT 6 % (BEAKER) (test code = 432) BASOPHILS RELATIVE PERCENT 1 % (BEAKER) (test code = 437) NEUTROPHILS ABSOLUTE COUNT 1.79 K/ L 1.56-6.13 (BEAKER) (test code = 670) LYMPHOCYTES ABSOLUTE COUNT 0.54 K/ L 1.18-3.74 L (BEAKER) (test code = 414) MONOCYTES ABSOLUTE COUNT (BEAKER) 0.49 K/ L 0.24-0.36 H (test code = 415) EOSINOPHILS ABSOLUTE COUNT 0.18 K/ L 0.04-0.36 (BEAKER) (test code = 416) BASOPHILS ABSOLUTE COUNT (BEAKER) 0.02 K/ L 0.01-0.08 (test code = 417) IMMATURE GRANULOCYTES-RELATIVE 0.30 % 0.00-1.00 PERCENT (BEAKER) (test code = 2801) HEPATIC FUNCTION [id number] 05:13:41 Test Item Value Reference Range Interpretation Comments TOTAL PROTEIN (BEAKER) (test code = 5.2 gm/dL 6.0-8.3 L 770) ALBUMIN (BEAKER) (test code = 1145) 3.3 g/dL 3.5-5.0 L BILIRUBIN TOTAL (BEAKER) (test code 1.2 mg/dL 0.2-1.2 = 377) BILIRUBIN DIRECT (BEAKER) (test 0.6 mg/dL 0.1-0.5 H code = 706) ALKALINE PHOSPHATASE (BEAKER) (test 69 U/L 40-150 code = 346) AST (SGOT) (BEAKER) (test code = 22 U/L 5-34 353) ALT (SGPT) (BEAKER) (test code = 14 U/L 6-55 347) Hand Salter ID - ADMINPROTHROMBIN TIME/[id number] 04:57:14 Test Item Value Reference Range Interpretation Comments PROTIME (BEAKER) (test code = 24.0 seconds 11.9-14.2 H 759) INR (BEAKER) (test code = 370) 2.21 <=5.90 RECOMMENDED COUMADIN/WARFARIN INR THERAPY RANGESSTANDARD DOSE: 2.0 - 3.0 Includes: PROPHYLAXIS for venous thrombosis, systemic embolization; TREATMENT for venous thrombosis and/or pulmonary embolus.HIGH RISK: Target INR is 2.5-3.5 for patients with mechanical heart valves.LACTIC ACID, [id number] 19:26:27 Test Item Value Reference Range Interpretation Comments LACTATE BLOOD VENOUS (2) (BEAKER) 1.66 mmol/L 0.50-2.00 (test code = 2872) Hand Salter ID - BCBLOOD GAS, [id number] 19:22:34 Test Item Value Reference Range Interpretation Comments PH VENOUS (BEAKER) (test code = 7.44 7.32-7.42 H 701) PCO2 VENOUS (BEAKER) (test code = 28 mm Hg 41-51 L 755) PO2 VENOUS (BEAKER) (test code = 84 mm Hg 25-40 H 702) O2 SATURATION VENOUS (BEAKER) 96.9 % 40.0-70.0 H (test code = 703) HCO3 VENOUS (BEAKER) (test code = 19 mmol/L 21-29 L 705) BASE EXCESS VENOUS (BEAKER) (test -4.8 mmol/L -2.0-3.0 L code = 704) PATIENT TEMPERATURE (BEAKER) 36.7 (test code = 1818) FIO2 (BEAKER) (test code = 1819) 97.0 XR CHEST 1 VIEW PORTABLE / [id number] 15:21:44 [facility] : 1965 Sex: FTECHNIQUE: Frontal view of the chest.INDICATION: s/p left thoracentesis.COMPARISON: 07/17/2023.FINDINGS:LINES/TUBES: None.HEART AND MEDIASTINUM: Cardiomediastinal contour is stable. LUNGS: The lungs are well inflated and clear. No consolidation orpulmonary edema.PLEURA: Near complete resolution of left pleural effusion status postthoracentesis. No pneumothorax.SOFT TISSUES AND BONES: Unremarkable.IMPRESSION:1. Near complete resolution of left pleural effusion status post leftthoracentesis. No pneumothorax.Electronically Signed By: Adilia Polanco07/18/2023 15:23 CDTWorkstation Name: [id number] THORACENTESIS 2023-07-18 15:07:22 [facility] : 1965 Sex: FUltrasound guided left-sided thoracentesis.Clinical History: Left pleural effusion.Modality: Ultrasound.Sedation: None. Cloth Washer Back Tender: Hannah Munozt: None. Estimated Blood Loss: 1ccSpecimen: 1950 cc of cloudy serosanguineous fluid. Technique: Informed consent was obtained. The risks of pain, bleeding,infection, lung collapse/pneumothorax, injury to adjacent structures,and adverse medication reactions were discussed with the patient. Thepatient's left hemithorax was scanned from the back, with the patient rowena right lateral recumbent vision. After the largest fluid pocket areawas marked, the skin was prepped and draped in the usual sterile manner. The area was anesthetized with 2% lidocaine,a 4F one-step catheter wasadvanced into the pleural space under ultrasound guidance. Aftercompletionof drainage, the catheter was removed. There was no evidenceof immediate complication. Post procedure chest x-ray demonstrated nopneumothorax. IMPRESSION:Impression:Successful and uncomplicated ultrasound guided left-sided thoracentesis.Electronically Signed By: Galen Genao09/17/2022 15:09 CDTWork station Name: [id number] 15:07:21 [facility] : 1965 Sex: FUltrasound guided paracentesis.Clinical History: Ascites.Sedation: None. Cloth Washer Back Tender: Hannah Munozt: None. Estimated Blood Loss: < 1 cc.Specimen: 4100 cc of cloudy serosanguineous fluid, samples sent tolaboratory.Technique: Informed consent was obtained. The risks of pain, bleeding,infection, bowel perforation, injury to adjacent structures, and adversemedication reactions were discussed with the patient. After informedconsent was obtained, the patient's abdomen was scanned. The RUQ oftheabdomen was selected for paracentesis. After the largest fluid pocketarea was marked, and the anterior abdominal wall was evaluated withcolor Doppler to exclude presence of blood vessels traversing the area,the skin was prepped and draped in the usual sterile manner. Afterlocal anesthesia was achieved with 2% lidocaine, a 5 [place]au[place] one-stepcatheter was advanced into the peritoneal cavity under ultrasoundguidance. After completion of drainage, the catheter was removed. Therewas no evidence of compli cation.IMPRESSION:Impression:Successful ultrasound guided paracentesis. Electronically Signed By: Galen Genao09/17/2022 15:09 CDTWorkstation Name: ROGERIO, RANDOM [id number] 14:19:12 Test Item Value Reference Range Interpretation Comments SODIUM URINE (BEAKER) (test code = < meq/L 243) Reference Range: No NormalsOperator ID - ADMINBODY FLUID CELL COUNT WITH [id number] 13:50:40 Test Item Value Reference Range Interpretation Comments APPEARANCE FLUID (BEAKER) (test Bloody Clear A code = 510) COLOR FLUID (BEAKER) (test code [place] Colorless, Straw A = 511) RBC FLUID (BEAKER) (test code = 73462 /cu mm <=1 H 513) TOTAL NUCLEATED CELL COUNT 769 /cu mm <=5 H (BEAKER) (test code = 1442) ADJUSTED WBC FLUID (BEAKER) 769 /cu mm <=5 H (test code = 1691) LINING CELLS/OTHERS, CALCULATED 0 /cu mm <=1 (BEAKER) (test code = 1590) NEUTROPHILS FLUID (BEAKER) 4 % (test code = 1656) LYMPHS FLUID (BEAKER) (test 46 % code = 488) MONO/MACROPHAGE FLUID (BEAKER) 49 % (test code = 489) EOSINOPHILS FLUID (BEAKER) 1 % (test code = 491) BASO FLUID (BEAKER) (test code 0 % = 492) CONTAINER BODY FLUID (BEAKER) EDTA Tube (test code = 2873) BODY FLUID CELL COUNT WITH [id number] 13:50:09 Test Item Value Reference Range Interpretation Comments APPEARANCE FLUID (BEAKER) (test Bloody Clear A code = 510) COLOR FLUID (BEAKER) (test code [place] Colorless, Straw A = 511) RBC FLUID (BEAKER) (test code = 55033 /cu mm <=1 H 513) TOTAL NUCLEATED CELL COUNT 410 /cu mm <=5 H (BEAKER) (test code = 1442) ADJUSTED WBC FLUID (BEAKER) 402 /cu mm <=5 H (test code = 1691) LINING CELLS/OTHERS, CALCULATED 8 /cu mm <=1 H (BEAKER) (test code = 1590) NEUTROPHILS FLUID (BEAKER) 29 % (test code = 1656) LYMPHS FLUID (BEAKER) (test 31 % code = 488) MONO/MACROPHAGE FLUID (BEAKER) 39 % (test code = 489) EOSINOPHILS FLUID (BEAKER) 1 % (test code = 491) BASO FLUID (BEAKER) (test code 0 % = 492) CONTAINER BODY FLUID (BEAKER) EDTA Tube (test code = 2873) CREATININE, RANDOM [id number] 13:44:56 Test Item Value Reference Range Interpretation Comments CREATININE URINE (BEAKER) (test 176.5 mg/dL code = 375) Reference Range: No NormalsOperator ID - ADMINURINALYSIS W/ MICROSCOPIC 2023-07-18 08:57:58 Test Item Value Reference Range Interpretation Comments COLOR (BEAKER) (test code Yellow = 470) CLARITY (BEAKER) (test Hazy code = 469) SPECIFIC GRAVITY UA 1.024 1.001-1.035 (BEAKER) (test code = 468) PH [...] = 463) RBC UA (BEAKER) (test code 17 /HPF = 519) WBC UA (BEAKER) (test code 6 /HPF = 520) MUCUS (BEAKER) (test code Rare = 1574) SQUAMOUS EPITHELIAL 5 /HPF (BEAKER) (test code = 516) HYALINE CASTS (BEAKER) 6 /LPF (test code = 514) SOURCE(BEAKER) (test code Urine, Clean Catch = 2795) Hand Salter ID - [auto]Hand Salter ID - techB-TYPE NATRIURETIC FACTOR (BNP)2023-07-18 04:03:46 Test Item Value Reference Range Interpretation Comments B-TYPE NATRIURETIC PEPTIDE (BEAKER) 175 pg/mL 0-100 H (test code = 700) Hand Salter ID - ADMINCOMPREHENSIVE METABOLIC [id number] 04:00:19 Test Item Value Reference Range Interpretation Comments TOTAL PROTEIN 5.6 gm/dL 6.0-8.3 L (BEAKER) (test code = 770) ALBUMIN (BEAKER) 3.1 g/dL 3.5-5.0 L (test code = 1145) ALKALINE 67 U/L 40-150 PHOSPHATASE (BEAKER) (test code = 346) BILIRUBIN TOTAL 1.7 mg/dL 0.2-1.2 H (BEAKER) (test code = 377) SODIUM (BEAKER) 135 meq/L 136-145 L (test code = 381) POTASSIUM (BEAKER) 4.5 meq/L 3.5-5.1 (test code = 379) CHLORIDE (BEAKER) 110 meq/L 98-107 H (test code = 382) CO2 (BEAKER) (test 15 meq/L 22-29 L code = 355) BLOOD UREA 48 mg/dL 7-21 H NITROGEN (BEAKER) (test code = 354) CREATININE 2.13 mg/dL 0.57-1.25 H (BEAKER) (test code = 358) GLUCOSE RANDOM 102 mg/dL 70-105 (BEAKER) (test code = 652) CALCIUM (BEAKER) 8.0 mg/dL 8.4-10.2 L (test code = 697) AST (SGOT) 29 U/L 5-34 (BEAKER) (test code = 353) ALT (SGPT) 17 U/L 6-55 (BEAKER) (test code = 347) EGFR (BEAKER) 26 Interpretatio n of eGFR (test code = [...] not appl icable for dialysis patien ts Hand Salter ID - [id number] 03:59:03 Test Item Value Reference Range Interpretation Comments PHOSPHORUS (BEAKER) (test code = 4.5 mg/dL 2.3-4.7 604) Hand Salter ID - ADMINLACTATE DEHYDROGENASE (LDH)2023-07-18 03:59:03 Test Item Value Reference Range Interpretation Comments LACTATE DEHYDROGENASE (BEAKER) (test 150 U/L 125-220 code = 635) Hand Salter ID - [id number] 03:59:02 Test Item Value Reference Range Interpretation Comments MAGNESIUM (BEAKER) (test code = 2.1 mg/dL 1.6-2.6 627) Hand Salter ID - ADMINPROTHROMBIN TIME/[id number] 03:47:04 Test Item Value Reference Range Interpretation Comments PROTIME (BEAKER) (test code = 21.5 seconds 11.9-14.2 H 759) INR (BEAKER) (test code = 370) 1.91 <=5.90 RECOMMENDED COUMADIN/WARFARIN INR THERAPY RANGESSTANDARD DOSE: 2.0 - 3.0 Includes: PROPHYLAXIS for venous thrombosis, systemic embolization; TREATMENT for venous thrombosis and/or pulmonary embolus.HIGH RISK: Target INR is 2.5-3.5 for patients with mechanical heart valves.CBC W/PLT COUNT & AUTO [id number] 03:41:38 Test Item Value Reference Range Interpretation Comments WHITE BLOOD CELL COUNT (BEAKER) 4.7 K/ L 3.5-10.5 (test code = 775) RED BLOOD CELL COUNT (BEAKER) 2.36 M/ L 3.93-5.22 L (test code = 761) HEMOGLOBIN (BEAKER) (test code = 7.8 GM/DL 11.2-15.7 L 410) HEMATOCRIT (BEAKER) (test code = 23.7 % 34.1-44.9 L 411) MEAN CORPUSCULAR VOLUME (BEAKER) 100 fL 79-95 H (test code = 753) MEAN CORPUSCULAR HEMOGLOBIN 33.1 pg 25.6-32.2 H (BEAKER) (test code = 751) MEAN CORPUSCULAR HEMOGLOBIN CONC 32.9 GM/DL 32.2-35.5 (BEAKER) (test code = 752) RED CELL DISTRIBUTION WIDTH 15.4 % 11.7-14.4 H (BEAKER) (test code = 412) PLATELET COUNT (BEAKER) (test code 70 K/CU MM 150-450 L = 756) MEAN PLATELET VOLUME (BEAKER) 10.5 fL 9.4-12.3 (test code = 754) NUCLEATED [...] (test code = 437) NEUTROPHILS ABSOLUTE COUNT 2.96 K/ L 1.56-6.13 (BEAKER) (test code = 670) LYMPHOCYTES ABSOLUTE COUNT 0.57 K/ L 1.18-3.74 L (BEAKER) (test code = 414) MONOCYTES ABSOLUTE COUNT (BEAKER) 0.81 K/ L 0.24-0.36 H (test code = 415) EOSINOPHILS ABSOLUTE COUNT 0.31 K/ L 0.04-0.36 (BEAKER) (test code = 416) BASOPHILS ABSOLUTE COUNT (BEAKER) 0.02 K/ L 0.01-0.08 (test code = 417) IMMATURE GRANULOCYTES-RELATIVE 0.40 % 0.00-1.00 PERCENT (BEAKER) (test code = 2801) CALCIUM, [id number] 03:26:48 Test Item Value Reference Range Interpretation Comments CALCIUM IONIZED (BEAKER) (test 1.09 mmol/L 1.12-1.27 L code = 698) PH, BLOOD (BEAKER) (test code = 7.52 1810) XR CHEST 1 VIEW PORTABLE / [id number] 16:15:31 [facility] : 1965 Sex: FChest one view:HISTORY: pleural effusionComparison: 07/14/2023 small to moderate size layering left pleural effusion is notedappearing slightly increased from the comparison study. There arebilateral interstitial opacities and mild peribronchial cuffing alsonoted suggesting interstitial edema or fluid overload. Cardiac sizeappears within normal limits.Electronically Signed By: Nathaniel Wilkins07/17/2023 16:17 CDTWorkstation Name: [id number] 14:31:51 Test Item Value Reference Range Interpretation Comments PROTIME (BEAKER) (test code = 20.0 seconds 11.9-14.2 H 759) INR (BEAKER) (test code = 370) 1.73 <=5.90 PARTIAL THROMBOPLASTIN TIME 33.5 seconds 22.5-36.0 (BEAKER) (test code = 760) RECOMMENDED COUMADIN/WARFARIN INR THERAPY RANGESSTANDARD DOSE: 2.0 - 3.0 Includes: PROPHYLAXIS for venous thrombosis, systemic embolization; TREATMENT for venous thrombosis and/or pulmonary embolus.HIGH RISK: Target INR is 2.5-3.5 for patients with mechanical heart valves.CBC W/PLT COUNT & AUTO [id number] 13:34:10 Test Item Value Reference Range Interpretation Comments WHITE BLOOD CELL COUNT (BEAKER) 5.0 K/ L 3.5-10.5 (test code = 775) RED BLOOD CELL COUNT (BEAKER) 2.45 M/ L 3.93-5.22 L (test code = 761) HEMOGLOBIN (BEAKER) (test code = 8.4 GM/DL 11.2-15.7 L 410) HEMATOCRIT (BEAKER) (test code = 24.6 % 34.1-44.9 L 411) MEAN CORPUSCULAR VOLUME [...] (test code = 437) NEUTROPHILS ABSOLUTE COUNT 3.56 K/ L 1.56-6.13 (BEAKER) (test code = 670) LYMPHOCYTES ABSOLUTE COUNT 0.56 K/ L 1.18-3.74 L (BEAKER) (test code = 414) MONOCYTES ABSOLUTE COUNT (BEAKER) 0.64 K/ L 0.24-0.36 H (test code = 415) EOSINOPHILS ABSOLUTE COUNT 0.16 K/ L 0.04-0.36 (BEAKER) (test code = 416) BASOPHILS ABSOLUTE COUNT (BEAKER) 0.03 K/ L 0.01-0.08 (test code = 417) IMMATURE GRANULOCYTES-RELATIVE 0.20 % 0.00-1.00 PERCENT (BEAKER) (test code = 2801) BASIC METABOLIC [id number] 11:56:51 Test Item Value Reference Range Interpretation Comments SODIUM (BEAKER) 135 meq/L 136-145 L (test code = 381) POTASSIUM 4.7 meq/L 3.5-5.1 (BEAKER) (test code = 379) CHLORIDE (BEAKER) 110 meq/L 98-107 H (test code = 382) CO2 (BEAKER) 18 meq/L 22-29 L (test code = 355) BLOOD UREA 45 mg/dL 7-21 H NITROGEN (BEAKER) (test code = 354) CREATININE 2.31 mg/dL 0.57-1.25 H (BEAKER) (test code = 358) GLUCOSE RANDOM 88 mg/dL 70-105 (BEAKER) (test code = 652) CALCIUM (BEAKER) 8.1 mg/dL 8.4-10.2 L (test code = 697) EGFR (BEAKER) 24 Interpretatio n of eGFR (test code = [...] not appl icable for dialysis patien ts Hand Salter ID - MARCOSpecimen slightly ictericHEPATIC FUNCTION [id number] 11:52:05 Test Item Value Reference Range Interpretation Comments TOTAL PROTEIN (BEAKER) (test code = 6.3 gm/dL 6.0-8.3 770) ALBUMIN (BEAKER) (test code = 1145) 3.2 g/dL 3.5-5.0 L BILIRUBIN TOTAL (BEAKER) (test code 1.9 mg/dL 0.2-1.2 H = 377) BILIRUBIN DIRECT (BEAKER) (test 0.9 mg/dL 0.1-0.5 H code = 706) ALKALINE PHOSPHATASE (BEAKER) (test 78 U/L 40-150 code = 346) AST (SGOT) (BEAKER) (test code = 37 U/L 5-34 H 353) ALT (SGPT) (BEAKER) (test code = 24 U/L 6-55 347) Hand Salter ID - MARCOSpecimen slightly ictericPROTHROMBIN TIME/[id number] 11:31:58 Test Item Value Reference Range Interpretation Comments PROTIME (BEAKER) (test code = 20.0 seconds 11.9-14.2 H 759) INR (BEAKER) (test code = 370) 1.73 <=5.90 RECOMMENDED COUMADIN/WARFARIN INR THERAPY RANGESSTANDARD DOSE: 2.0 - 3.0 Includes: PROPHYLAXIS for venous thrombosis, systemic embolization; TREATMENT for venous thrombosis and/or pulmonary embolus.HIGH RISK: Target INR is 2.5-3.5 for patients with mechanical heart valves.BODY FLUID CULTURE + GRAM STAIN 2023-07-16 12:18:57 Test Item Value Reference Range Interpretation Comments CULTURE (BEAKER) (test code = 1095) No growth BODY FLUID CULTURE + GRAM [id number] 12:18:51 Test Item Value Reference Range Interpretation Comments CULTURE (BEAKER) (test code = 1095) No growth US [id number] 15:41:15 [facility] : 1965 Sex: FUltrasound guided left thoracentesis.Clinical History: Left pleural effusion.Modality: Ultrasound.Sedation: None. Cloth Washer Back Tender: Lida Lyles: None. Estimated Blood Loss: 1ccSpecimen: 2000 cc [...] area wasanesthetized with 2% lidocaine, a 4 [place] one-step catheter wasadvanced into the pleural space under ultrasound guidance. Aftercompletion of drainage, the catheter was removed. There was no evidenceof immediate complication. Post procedure chest x-ray demonstrated nopneumothorax. IMPRESSION:Impression:Successful and uncomplicated ultrasound guided leftthoracentesis.Electronically Signed By: Galen Genao09/13/2022 15:43 CDTWorkstation Name: [id number] 15:41:13 [facility] : 1965 Sex: FUltrasound guided paracentesis.Clinical History: Ascites.Sedation: None. Cloth Washer Back Tender: Hannah Lylest: None. Estimated Blood Loss: < [...] anesthesia was achieved with 2% lidocaine,a 5 Palauan one-step catheter was advanced into the peritoneal cavityunder ultrasound guidance. After completion of drainage, the catheterwas removed. There was no evidence of complication.IMPRESSION:Impression:Successful ultrasound guided paracentesis.Electronically Signed By: Galen Genao09/13/2022 15:43 CDTWorkstation Name: [id number] FLUID CELL COUNT WITH [id number] 13:41:18 Test Item Value Reference Range Interpretation Comments APPEARANCE FLUID (BEAKER) (test Cloudy Clear A code = 510) COLOR FLUID (BEAKER) (test code Red Colorless, Straw A = 511) RBC FLUID (BEAKER) (test code = 64300 /cu mm <=1 H 513) TOTAL NUCLEATED [...] = 2873) BODY FLUID CELL COUNT WITH [id number] 13:38:45 Test Item Value Reference Range Interpretation Comments APPEARANCE FLUID (BEAKER) (test Cloudy Clear A code = 510) COLOR FLUID (BEAKER) (test code [facility] Colorless, Straw A = 511) RBC FLUID (BEAKER) (test code = 75206 /cu mm <=1 H 513) TOTAL NUCLEATED [...] 2873) XR CHEST 1 VIEW PORTABLE / [id number] 12:22:55 [facility] : 1965 Sex: [...] Signed By: Brian Roper09/13/2022 12:25 CDTWorkstation Name: [id number] METABOLIC [id number] 06:27:20 Test Item Value Reference Range Interpretation [...] not appl icable for dialysis patien ts Hand Salter ID - [id number] 06:26:56 Test Item Value Reference Range Interpretation Comments PHOSPHORUS (BEAKER) (test code = 3.8 mg/dL 2.3-4.7 604) Hand Salter ID - [id number] 06:26:55 Test Item Value Reference Range Interpretation Comments MAGNESIUM (BEAKER) (test code = 2.1 mg/dL 1.6-2.6 627) Hand Salter ID - adminCBC W/PLT COUNT & AUTO [id number] 06:10:50 Test Item Value Reference Range Interpretation [...] PERCENT (BEAKER) (test code = 2801) PROTHROMBIN TIME/[id number] 06:10:48 Test Item Value Reference Range Interpretation Comments PROTIME (BEAKER) (test code = 20.2 seconds 11.9-14.2 H 759) INR (BEAKER) (test code = 370) 1.75 <=5.90 RECOMMENDED COUMADIN/WARFARIN INR THERAPY RANGESSTANDARD DOSE: 2.0 - 3.0 Includes: PROPHYLAXIS for venous thrombosis, systemic embolization; TREATMENT for venous thrombosis and/or pulmonary embolus.HIGH RISK: Target INR is 2.5-3.5 for patients with mechanical heart valves.BLOOD GAS, [id number] 06:03:24 Test Item Value Reference Range Interpretation [...] (BEAKER) (test code = 1819) 21.0 CALCIUM, [id number] 06:03:24 Test Item Value Reference Range Interpretation Comments CALCIUM IONIZED (BEAKER) (test 1.08 mmol/L 1.12-1.27 L code = 698) PH, BLOOD (BEAKER) (test code = 7.41 1810) BLOOD [id number] 03:00:46 Test Item Value Reference Range Interpretation Comments CULTURE (BEAKER) (test No growth in 5 days code = 1095) BLOOD [id number] 03:00:45 Test Item Value Reference Range Interpretation Comments CULTURE (BEAKER) (test No growth in 5 days code = 1095) XR CHEST 1 VIEW PORTABLE / [id number] 07:09:56 [facility] : 1965 Sex: [...] Signed By: Brian Roper 07:12 CDTWorkstation Name: [id number] METABOLIC [id number] 05:37:39 Test Item Value Reference Range Interpretation [...] not appl icable for dialysis patien ts Hand Salter ID - STANLEY [id number] 05:37:16 Test Item Value Reference Range Interpretation Comments MAGNESIUM (BEAKER) (test code = 2.0 mg/dL 1.6-2.6 627) Hand Salter ID - STANLEY [id number] 05:37:16 Test Item Value Reference Range Interpretation Comments PHOSPHORUS (BEAKER) (test code = 3.5 mg/dL 2.3-4.7 604) Hand Salter ID - STANLEY WPROTHROMBIN TIME/[id number] 05:35:14 Test Item Value Reference Range Interpretation [...] mechanical heart valves.CBC W/PLT COUNT & AUTO [id number] 05:09:06 Test Item Value Reference Range Interpretation [...] 0.00-1.00 PERCENT (BEAKER) (test code = 2801) [id number] 16:17:28 [facility] : 1965 Sex: FUltrasound guided left-sided thoracentesis.Clinical History: Left pleural effusion.Modality: Ultrasound.Sedation: None. Cloth Washer Back Tender: Hannah Munozt: None. Estimated Blood Loss: 1ccSpecimen: [...] By: Aravind Neal MD07/10/2023 16:19 CDTWorkstation Name: [id number] [id number] 10:56:31 Test Item Value Reference Range Interpretation [...] some organisms.XR CHEST 1 VIEW PORTABLE / [id number] 10:03:57 [facility] : 1965 Sex: FChest, one viewHistory: Status post left thoracentesisComparison: 07/07/2023Findings:Clear lungs. Normal size heart. The previous left pleural effusion hassignificantly decreased in size status post reported left thoracentesis.No pneumothorax is apparent. Electronically Signed By: Aravind Neal MD07/10/2023 10:06 CDTWorkstation Name: [id number] METABOLIC [id number] 08:39:27 Test Item Value Reference Range Interpretation [...] St age Description sq m Result G1 Norm al or [...] not appl icable for dialysis patien ts Hand Salter ID - [id number] 08:21:55 Test Item Value Reference Range Interpretation Comments PHOSPHORUS (BEAKER) (test code = 3.1 mg/dL 2.3-4.7 604) Hand Salter ID - [id number] 08:21:54 Test Item Value Reference Range Interpretation Comments MAGNESIUM (BEAKER) (test code = 2.2 mg/dL 1.6-2.6 627) Hand Salter ID - ADMINCBC W/PLT COUNT & AUTO [id number] 07:42:02 Test Item Value Reference Range Interpretation [...] PERCENT (BEAKER) (test code = 2801) PROTHROMBIN TIME/[id number] 07:40:07 Test Item Value Reference Range Interpretation Comments PROTIME (BEAKER) (test code = 19.1 seconds 11.9-14.2 H 759) INR (BEAKER) (test code = 370) 1.63 <=5.90 RECOMMENDED COUMADIN/WARFARIN INR THERAPY RANGESSTANDARD DOSE: 2.0 - 3.0 Includes: PROPHYLAXIS for venous thrombosis, systemic embolization; TREATMENT for venous thrombosis and/or pulmonary embolus.HIGH RISK: Target INR is 2.5-3.5 for patients with mechanical heart valves.BLOOD [id number] 06:00:35 Test Item Value Reference Range Interpretation [...] not appl icable for dialysis patien ts Hand Salter ID - STANLEY WOperator ID - [id number] 05:22:26 Test Item Value Reference Range Interpretation Comments MAGNESIUM (BEAKER) (test code = 2.3 mg/dL 1.6-2.6 627) Hand Salter ID Nathalia ANGEL [id number] 05:22:26 Test Item Value Reference Range Interpretation Comments PHOSPHORUS (BEAKER) (test code = 3.6 mg/dL 2.3-4.7 604) Hand Salter ID Nathalia ANGEL WCBC W/PLT COUNT & AUTO [id number] 05:10:18 Test Item Value Reference Range Interpretation [...] PERCENT (BEAKER) (test code = 2801) PROTHROMBIN TIME/[id number] 05:09:47 Test Item Value Reference Range Interpretation [...] (test performed hui or to code = 70707) incubation. 07/06/2023 8:06 PM Karly Bland SODIUM, RANDOM [id number] 13:41:19 Test Item Value Reference Range Interpretation Comments SODIUM URINE (BEAKER) (test code = < meq/L 243) Reference Range: No NormalsOperator ID - ADMINCREATININE, RANDOM [id number] 13:39:11 Test Item Value Reference Range Interpretation Comments CREATININE URINE (BEAKER) (test 143.0 mg/dL code = 375) Reference Range: No NormalsOperator ID - ADMINPROTEIN, RANDOM [id number] 13:39:11 Test Item Value Reference Range Interpretation Comments PROTEIN, URINE (BEAKER) (test code = 12 mg/dL 0-14 1569) Hand Salter ID - ADMINURINALYSIS W/ [id number] 12:43:53 Test Item Value Reference Range Interpretation [...] SOURCE(BEAKER) (test code Urine, Clean Catch = 7705) Hand Salter ID - [auto]Hand Salter ID - techCALCIUM, [id number] 05:30:52 Test Item Value Reference Range Interpretation Comments CALCIUM IONIZED (BEAKER) (test 1.08 mmol/L 1.12-1.27 L code = 698) PH, BLOOD (BEAKER) (test code = 7.37 1810) [id number] 05:15:35 Test Item Value Reference Range Interpretation Comments PHOSPHORUS (BEAKER) (test code = 3.5 mg/dL 2.3-4.7 604) Hand Salter ID - MARCOCREATINE KINASE (CK)2023-07-08 05:15:35 Test Item Value Reference Range Interpretation Comments CREATINE KINASE TOTAL (BEAKER) (test 34 U/L 29-200 code = 380) Hand Salter ID - MARCOCOMPREHENSIVE METABOLIC [id number] 05:15:34 Test Item Value Reference Range Interpretation [...] not appl icable for dialysis patien ts Hand Salter ID - [id number] 05:15:34 Test Item Value Reference Range Interpretation Comments MAGNESIUM (BEAKER) (test code = 2.3 mg/dL 1.6-2.6 627) Hand Salter ID - MARCOB-TYPE NATRIURETIC FACTOR (BNP)2023-07-08 05:09:26 Test Item Value Reference Range Interpretation Comments B-TYPE NATRIURETIC PEPTIDE (BEAKER) 33 pg/mL 0-100 (test code = 700) Hand Salter ID - ADMINPROTHROMBIN TIME/[id number] 05:02:44 Test Item Value Reference Range Interpretation [...] mechanical heart valves.CBC W/PLT COUNT & AUTO [id number] 04:45:45 Test Item Value Reference Range Interpretation [...] 2801) XR CHEST 1 VIEW PORTABLE / [id number] 16:42:39 [facility] : 1965 Sex: FChest one view:HISTORY: hepatic hydrothoraxComparison: 07/05/2023There is a layering small left pleural effusion again noted. Noconsolidation or vascular congestion is noted. Cardiac size remainswithin normal limits.Electronically Signed By: Nathaniel Wilkins07/07/2023 16:44 CDTWorkstation Name: [id number] PARACENTESIS 2023-07-07 08:01:44 [facility] : 1965 Sex: FUltrasound guided paracentesis.Clinical History: Ascites.Sedation: None. Cloth Washer Back Tender: Ellis Munozistant: None. Estimated Blood Loss: < [...] was achieved with 2% lidocaine, a 5 Palauan one-stepcatheter was advanced into the peritoneal cavity under ultrasoundguidance. After completion of drainage, the catheter was removed. Therewas no evidence of complication.IMP RESSION:Impression:Successful ultrasound guided paracentesis.Electronically Signed By: Lee Diaz07/07/2023 08:03 CDTWorkstation Name: [id number] 2023-07-07 02:29:01 Test Item Value Reference Range Interpretation Comments PHOSPHORUS (BEAKER) (test code = 4.0 mg/dL 2.3-4.7 604) Hand Salter ID - ADMINCOMPREHENSIVE METABOLIC [id number] 02:29:00 Test Item Value Reference Range Interpretation [...] not appl icable for dialysis patien ts Hand Salter ID - [id number] 02:29:00 Test Item Value Reference Range Interpretation Comments MAGNESIUM (BEAKER) (test code = 2.3 mg/dL 1.6-2.6 627) Hand Salter ID - ADMINPROTHROMBIN TIME/[id number] 02:28:39 Test Item Value Reference Range Interpretation [...] mechanical heart valves.CBC W/PLT COUNT & AUTO [id number] 02:08:31 Test Item Value Reference Range Interpretation [...] = 2801) BODY FLUID CELL COUNT WITH [id number] 18:31:06 Test Item Value Reference Range Interpretation Comments APPEARANCE FLUID (BEAKER) (test Cloudy Clear A code = 510) COLOR FLUID (BEAKER) (test code [place] Colorless, Straw A = 511) RBC FLUID (BEAKER) (test code = 17067 /cu mm <=1 H 513) TOTAL NUCLEATED [...] = 2873) BODY FLUID CULTURE + GRAM [id number] 17:29:45 Test Item Value Reference Range Interpretation Comments CULTURE (BEAKER) (test code = 1095) No growth COMPREHENSIVE METABOLIC [id number] 06:39:46 Test Item Value Reference Range Interpretation [...] not appl icable for dialysis patien ts Hand Salter ID - [id number] 06:27:37 Test Item Value Reference Range Interpretation Comments MAGNESIUM (BEAKER) (test code = 2.3 mg/dL 1.6-2.6 627) Hand Salter ID - [id number] 06:27:37 Test Item Value Reference Range Interpretation Comments PHOSPHORUS (BEAKER) (test code = 4.4 mg/dL 2.3-4.7 604) Hand Salter ID - ADMINCBC W/PLT COUNT & AUTO [id number] 06:05:48 Test Item Value Reference Range Interpretation [...] PERCENT (BEAKER) (test code = 2801) PROTHROMBIN TIME/[id number] 05:48:21 Test Item Value Reference Range Interpretation [...] (test Non Applicable Not detected code = 7517548581) CTX-M (BEAKER) (test Non Applicable Not detected code = 9662484119) IMP ([place]) (test code = Non Applicable Not Detected 7244409253) KPC (BKR) (test code = Non Applicable Not detected 7878569925) NDM (BKR) (test code = Non Applicable Not Detected 4538346911) OXA-48-LIKE (BKR) Non Applicable Not Detected (test code = 4677921845) VIM (BKR) (test code = Non Applicable Not detected 3918161878) MEC A/C ([place]) (test Detected Not detected A Methicill in code = 0124526759) resistanc e has been detected. MEC A/C AND MREJ Non Applicable Not Detected (MRSA) [place] (test code = 0912917944) VAN A/B (VANCOMYCIN Non Applicable Not detected RESISTANCE) (test code = 8627363538) ENTEROCOCCUS FAECALIS Not detected Not detected (BKR) (test code = 5521163922) ENTEROCOCCUS FAECIUM Not detected Not detected (BKR) (test code = 1276295229) LISTERIA MONOCYTOGENES Not detected Not detected (test code = 20160614) STAPHYLOCOCCUS (test Detected Not detected A code = 20160817) STAPHYLOCOCCUS AUREUS Not detected Not detected (test code = 20160818) STAPHYLOCOCCUS Detected Not detected A Methicillin EPIDERMIDIS ([place]) (test Resis tant code = 7515973383) Staphyloc occus epidermidis (MR-CoNS).First line therapy: Vancomycin.Note : Possible contamination. The likelihood of pathogenicity i s increased if th e organism is observed in multiple blood cultures obtain ed from separate venipunctures. STAPHYLOCOCCUS Not detected Not detected LUGDENENSIS (BKR) (test code = 5711241095) STREPTOCOCCUS (test Not detected Not detected code = 20160819) STREPTOCOCCUS Not detected Not detected AGALACTIAE (GROUP B) (test code = 2139072) STREPTOCOCCUS Not detected Not detected PNEUMONIAE (test code = 1549454) STREPTOCOCCUS PYOGENES Not detected Not detected (GROUP A) (test code = 0719146) ACINETOBACTER Not detected Not detected CALCOACETICUS-BAUMANNI I COMPLEX (BKR) (test code = 7712) BACTEROIDES FRAGILIS Not detected Not detected ([place]) (test code = 2873268754) ENTEROBACTERALES (test Not detected Not detected code = 7938852310) ENTEROBACTER CLOACOE Not detected Not detected COMPLEX (test code = 0070564) ESCHERICHIA COLI (test Not detected Not detected code = 9467979) KLEBSIELLA AEROGENES Not detected Not detected (BKR) (test code = 8795784972) KLEBSIELLA OXYTOCA Not detected Not detected (test code = 4366123) KLEBSIELLA PNEUMONIAE Not detected Not detected GROUP (test code = 4620333048) PROTEUS (test code = Not detected Not detected 2358719) SALMONELLA SPECIES Not detected Not detected ([place]) (test code = 7141826225) SERRATIA MARCESCENS Not detected Not detected (test code = 5079700) HAEMOPHILUS INFLUENZAE Not detected Not detected (test code = 4395071) NEISSERIA MENINGITIDIS Not detected Not detected (test code = 1548986) PSEUDOMONAS Not detected Not detected AERUGINOSA-BEAKER (test code = 9610759) STENOTROPHOMONAS Not detected Not detected MALTOPHILIA (BKR) (test code = 7582085805) BRITTANY ALBICANS (test Not detected Not detected code = 5491193) BRITTANY AURIS ([place]) Not detected Not detected (test code = 4195890000) BRITTANY GLABRATA (test Not detected Not detected code = 1472050) BRITTANY KRUSEI (test Not detected Not detected code = 0145059) BRITTANY PARAPSILOSIS Not detected Not detected (test code = 9421524) BRITTANY TROPICALIS Not detected Not detected (BKR) (test code = 6928644) CRYPTOCOCCUS Not detected Not detected NEOFORMANS/GATTII (test code = 1810080163) Other bacteria and resistance markers not targeted by this PCR panel cannot be excluded; therefore clinical correlation and follow up of serology, culture results, and other molecular studies is required. The results are not intended to be used as the sole means for clinical diagnosis or patient management decisions. This sample was tested at the [facility] using the Stereobot Blood Culture ID Panel. It is FDA cleared and has been verified and approved by the [facility] for clinical use. This laboratory is CLIA-certified and College ofAmerican Pathologists (CAP)-accredited to perform high complexity testing.URINALYSIS W/ REFLEX URINE [id number] 11:37:59 Test Item Value Reference Range Interpretation [...] = 516) SOURCE(BEAKER) (test code = 2795) Hand Salter ID - [auto]Hand Salter ID - techUS [id number] 08:44:05 [facility] : 1965 Sex: FUltrasound guided left thoracentesis.Clinical History: Left pleural effusion.Modality: Ultrasound.Sedation: None. Cloth Washer Back Tender: Lupe Glover PA-CAssistant: None. Estimated Blood Loss: 1ccSpecimen: 2150 cc [...] Signed By: Mikael Darnell07/05/2023 08:46 CDTWorkstation Name: [id number] BRAIN WITHOUT IV [id number] 04:46:07[facility] : 1965 Sex: FEXAM: CT BRAIN WITHOUT IV CONTRASTINDICATION: Head trauma, mod-severeTECHNIQUE: CT images from skull baseto vertex without IV contrast.This exam was performed according to the departmental dose optimizationprogram which includes automated exposure control, adjustment of the mAand/or kV according to the patient size, and/or use of an iterativereconstruction technique.COMPARISON: 03/30/2023FINDINGS: Helen ma: No evidence of acute infarction. No hemorrhage. No mass ormass effect.Extra- axial Collection: NoneVentricular System: NormalOsseous Structures: No acute osseous abnormality. Included Orbits: NormalParanasal Sinuses: Predominantly clearTympanomastoid Cavities: NormalOther: NoneIMPRESSION:No acute abnormality on CT head without contrast.Electronically Signed By: Erika Almazan07/05/2023 04:49 CDTWorkstation Name: [id number], [id number] 03:54:56 Test Item Value Reference Range Interpretation Comments FREE T4 (BEAKER) (test code = 655) 0.85 ng/dL 0.70-1.48 Hand Salter ID - ADMINTSH/FREE T4 IF [id number] 03:22:04 Test Item Value Reference Range Interpretation Comments THYROID STIMULATING HORMONE 5.176 uIU/mL 0.350-4.940 H (BEAKER) (test code = 772) Hand Salter ID - ADMINHIGH SENSITIVITY TROPONIN [id number] 03:02:49 Test Item Value Reference Range Interpretation Comments HIGH SENSITIVITY TROPONIN I (test < pg/ml <=17 code = 7115418) Hand Salter ID - ADMINThe FLEET SERVICE CLERK STAT High Sensitivity Troponin-I results should be used in conjunction with other diagnostic information such as ECG, clinical observations and information, and patientsymptoms to aid in the diagnosis of PR. HEPATIC FUNCTION [id number] 02:56:07 Test Item Value Reference Range Interpretation [...] Specimen slightly (test code = 347) hemolyzed Hand Salter ID - ADMINSpecimen slightly ictericBASIC METABOLIC [id number] 02:56:06 Test Item Value Reference Range Interpretation [...] (test code = 697) EGFR (BEAKER) 34 Interpretatio n of eGFR (test code = [...] not appl icable for dialysis patien ts Hand Salter ID - ADMINSpecimen slightly ictericCBC W/PLT COUNT & AUTO [id number] 02:41:31 Test Item Value Reference Range Interpretation [...] 2801) XR CHEST 1 VIEW PORTABLE / [id number] 02:15:04 [facility]ENTERName: [facility]ENCE PAREDES : 1965 Sex: FXR CHEST 1 VIEW PORTABLE / BEDSIDEINDICATION: ALTERED MENTAL STATUSCOMPARISON: Prior day's examFINDINGS: Portable frontal view of the chest. IMPRESSION:Support Lines: None Lungs and pleura: Unchanged small left pleural effusion. No new airspaceconsolidation. No pneumothorax.Heart and mediastinum: Stable contours. Additional findings: None.Electronically Signed By: Erika Almazan07/05/2023 02:17 CDTWorkstation Name: [id number] 16:25:00Medical Cytology Report Case: [id number] Authorizing Provider: Bebe Cox MD Collected: 06/30/2023 1 2:02 PM Ordering Location: [facility] Received: 07/01/2023 09:21 AM Pathologist: Hany Ferrer MD Specimen: Pleural LEFT PLEURAL FLUID (CYTOSPINS AND CELL BLOCK): - NEGATIVE FOR MALIGNANCY Reactive mesothelial cells admixed chronic inflammatory cells Signing Pathologist Direct Phone Line: [phone] signed by Hany Ferrer MD on 07/04/2023 at 4:24 [id number], [id number] y.o. F presented with left pleural effusion and ascites, has a h/o cirrhosis, pneumonia (04/2023), asthma, COVID-19 (2021)LEFT PLEURAL FLUIDA. PleuralReceived 1100 ml bloody fluid; prepared 4 cytospins and cell bl ock(A2)(collodion bag)- the cell block was fixed in formalin at 13:02 on 07/01/2023erformed.[facility], Department of Pathology, [address] [place] [address], [facility], [facility] of [facility]ology, [address] [place] [address], [facility], Department of [facility]ology, [address] [place] [address], RWNV FLUID CELL COUNT WITH [id number] 12:49:34 Test Item Value Reference Range Interpretation Comments APPEARANCE FLUID (BEAKER) (test Cloudy Clear A code = 510) COLOR FLUID (BEAKER) (test code Red Colorless, Straw A = 511) RBC FLUID (BEAKER) (test code = 73094 /cu mm <=1 H 513) TOTAL NUCLEATED [...] 2873) XR CHEST 1 VIEW PORTABLE / [id number] 11:05:44 [facility] : 1965 Sex: FXR CHEST 1 VIEW PORTABLE / BEDSIDECLINICAL HISTORY: s/p left thoracentesis TECHNIQUE: Single view of the chest.COMPARISON: June 30, 2023IMPRESSION:Small left pleural effusion reduced. Similar left lung base atelectasisor scarring. Right lung is clear. No pneumothorax. The cardiomediastinalsilhouette is unremarkable for AP technique. The osseous structuresappear stable.Electronically Signed By: Wilber Hylton07/04/2023 11:07 CDTWorkstation Name: [id number] FLUID CULTURE + GRAM [id number] 13:52:20 Test Item Value Reference Range Interpretation Comments CULTURE (BEAKER) (test code = 1095) No growth BODY FLUID CULTURE + GRAM [id number] 13:52:20 Test Item Value Reference Range Interpretation Comments CULTURE (BEAKER) (test code = 1095) No growth US [id number] 17:02:30 [facility] : 1965 Sex: FUltrasound guided left thoracentesis.Clinical History: Left pleural effusion.Modality: Ultrasound.Sedation: None. Cloth Washer Back Tender: Danuta Corralistant: None. Estimated Blood Loss: 1ccSpecimen: [...] Signed By: Lee Diaz06/30/2023 17:04 CDTWorkstation Name: [id number] 17:02:29 [facility] : 1965 Sex: FUltrasound guided paracentesis.Clinical History: Ascites.Sedation: None. Cloth Washer Back Tender: Danuta Corralistant: None. Estimated Blood Loss: < [...] anesthesia was achieved with 2% lidocaine,a 5 Palauan one- step catheter was advanced into the peritoneal cavityunder ultrasound guidance. After completion of drainage, the catheterwas removed. There was no evidence of complication.IMPRESSION:Impression:Successful ultrasound guided paracentesis.Electronically Signed By: Lee Diaz06/30/2023 17:04 CDTWorkstation Name: [id number] FLUID CELL COUNT WITH [id number] 14:51:10 Test Item Value Reference Range Interpretation Comments APPEARANCE FLUID (BEAKER) (test Cloudy Clear A code = 510) COLOR FLUID (BEAKER) (test code [place] Colorless, Straw A = 511) RBC FLUID (BEAKER) (test code = 75175 /cu mm <=1 H 513) TOTAL NUCLEATED [...] = 2873) BODY FLUID CELL COUNT WITH [id number] 14:48:47 Test Item Value Reference Range Interpretation Comments APPEARANCE FLUID (BEAKER) (test Cloudy Clear A code = 510) COLOR FLUID (BEAKER) (test code [place] Colorless, Straw A = 511) RBC FLUID (BEAKER) (test code = 29353 /cu mm <=1 H 513) TOTAL NUCLEATED [...] Sterile Vial (test code = 2873) BILIRUBIN, [id number] 14:20:49 Test Item Value Reference Range Interpretation Comments BILIRUBIN DIRECT (BEAKER) (test 0.7 mg/dL 0.1-0.5 H code = 706) Hand Salter ID - emCOMPREHENSIVE METABOLIC [id number] 14:20:48 Test Item Value Reference Range Interpretation [...] not appl icable for dialysis patien ts Hand Salter ID - emPROTHROMBIN TIME/[id number] 14:05:38 Test Item Value Reference Range Interpretation [...] mechanical heart valves.CBC W/PLT COUNT & AUTO [id number] 13:49:16 Test Item Value Reference Range Interpretation [...] 2801) XR CHEST 1 VIEW PORTABLE / [id number] 13:07:18 [facility] : 1965 Sex: FCLINICAL HISTORY: s/p left thora TECHNIQUE: 1 view of the chest.COMPARISON: 06/28/2023IMPRESSION:No pneumothorax. Small left pleural effusion appears decreased. Thereare no infiltrates. There is no cardiomegaly.Electronically Signed By: Antwan Flor06/30/2023 13:09 CDTWorkstation Name: [id number] FLUID CULTURE + GRAM [id number] 13:11:55 Test Item Value Reference Range Interpretation Comments CULTURE (BEAKER) (test code = 1095) No growth CT CHEST WITHOUT IV [id number] 05:33:19 [facility] : 1965 Sex: [...] Signed By: Nicolas Sauer06/28/2023 05:36 CDTWorkstation Name: [id number] ABDOMEN/PELVIS WITHOUT IV [id number] 05:33:19[facility] : 1965 Sex: [...] Signed By: Nicolas Sauer06/28/2023 05:36 CDTWorkstation Name: [id number] METABOLIC [id number] 04:01:28 Test Item Value Reference Range Interpretation [...] not appl icable for dialysis patien ts Hand Salter ID - EMXR CHEST 2 [id number] 00:59:58 [facility] : 1965 Sex: FEXAM: XR CHEST 2 VIEWSCLINICAL: shobCOMPARISON: None.FINDINGS:Unchanged left basilar airspace opacities and small left effusion. Theright lung is clear. No pneumothorax. The cardiac silhouette andmediastinal contours are stable. Osseous structures are stable.IMPRESSION:No significant interval change. Electronically Signed By: Roopa Jeter06/28/2023 01:02 CDTWorkstation Name: [id number] W/PLT COUNT & AUTO [id number] 00:29:31 Test Item Value Reference Range Interpretation [...] PERCENT (BEAKER) (test code = 2801) US [id number] 14:45:20 [facility] : 1965 Sex: FUltrasound guided left thoracentesis.Clinical History: Left pleural effusion.Modality: Ultrasound.Sedation: None. Cloth Washer Back Tender: Danuta BYRNE-CAssistant: None. Estimated Blood Loss: 1ccSpecimen: 2100 cc [...] Signed By: Mikael Darnell06/27/2023 14:47 CDTWorkstation Name: [id number] CHEST 1 VIEW PORTABLE / [id number] 09:08:30[facility] : 1965 Sex: FCLINICAL HISTORY: s/p left thoraTECHNIQUE: 1 view of the chest.COMPARISON: 06/23/2023IMPRESSION:No pneumothorax. Blunting of the left costophrenic angle is unchanged.There is no lobar consolidation or cardiomegaly.Electronically Signed By: Antwan Flor06/27/2023 09:10 CDTWorkstation Name: [id number] FLUID CELL COUNT WITH [id number] 14:54:54 Test Item Value Reference Range Interpretation Comments APPEARANCE FLUID (BEAKER) (test Bloody Clear A code = 510) COLOR FLUID (BEAKER) (test code Red Colorless, Straw A = 511) RBC FLUID (BEAKER) (test code = 76440 /cu mm <=1 H 513) TOTAL NUCLEATED [...] = 2873) BODY FLUID CELL COUNT WITH [id number] 14:54:24 Test Item Value Reference Range Interpretation Comments APPEARANCE FLUID (BEAKER) (test Bloody Clear A code = 510) COLOR FLUID (BEAKER) (test code Red Colorless, Straw A = 511) RBC FLUID (BEAKER) (test code = 90850 /cu mm <=1 H 513) TOTAL NUCLEATED [...] = 2873) BODY FLUID CULTURE + GRAM [id number] 13:19:32 Test Item Value Reference Range Interpretation Comments CULTURE (BEAKER) (test code = 1095) No growth US [id number] 11:39:20 [facility] : 1965 Sex: FUltrasound guided left thoracentesis.Clinical History: Left pleural effusion.Modality: Ultrasound.Sedation: None. Cloth Washer Back Tender: Danuta Youngt: None. Estimated Blood Loss: 1ccSpecimen: 2500 cc [...] Signed By: Mikael Darnell06/23/2023 11:41 CDTWorkstation Name: [id number] [id number] 11:39:19 [facility] : 1965 Sex: FUltrasound guided paracentesis.Clinical History: Ascites.Sedation: None. Cloth Washer Back Tender: Danuta Rodrigesistant: None. Estimated Blood Loss: < [...] localanesthesia was achieved with 2% lidocaine,a 5 Palauan one-step catheter was advanced into the peritoneal cavityunder ultrasound guidance. After completion of drainage, the catheterwas removed. There wasno evidence of complication.IMPRESSION:Impression:Successful ultrasound guided paracentesis.Electronically Signed By: Mikael Darnell06/23/2023 11:41 CDTWorkstation Name: [id number] CHEST 1 VIEW PORTABLE / [id number] 10:05:06[facility] : 1965 Sex: FChest AP portableCOMPARISON STUDY: 06/20/2023History provided: Status post left thoracentesisNo evidence of pneumothorax. Atelectatic change at the left costophrenicangle. Lungs otherwise grossly clear and vascularity normal.Electronically Signed By: Mp Skaggsyeni 10:29 CDTWorkstation Name: [id number] [id number] 12:06:58 [facility] : 1965 Sex: FUltrasound guided left thoracentesis.Clinical History: Left pleural effusion.Modality: Ultrasound.Sedation: None. Cloth Washer Back Tender: Hannah Lylest: None. Estimated Blood Loss: 1ccSpecimen: 2400 cc [...] area wasanesthetized with 2% lidocaine, a 4 [place]an one-step catheter wasadvanced into the pleural space under ultrasound guidance. Aftercompletion of drainage, the catheter was removed. There was no evidenceof immediate complication. Post procedure chest x-ray demonstrated nopneumothorax. IMPRESSION:Impression:Successful and uncomplicated ultrasound guided left thoracentesis.Electronically Signed By: Lj Stevenson MD06/22/2023 12:09 CDTWorkstation Name: [id number] FLUID CELL COUNT WITH DIFFERENTIAL 2023-06-20 19:53:16 Test Item Value Reference Range Interpretation Comments APPEARANCE FLUID (BEAKER) (test Turbid Clear A code = 510) COLOR FLUID (BEAKER) (test code [employer] Colorless, Straw A = 511) RBC FLUID (BEAKER) (test code = 37400 /cu mm <=1 H 513) TOTAL NUCLEATED [...] FLUID (BEAKER) EDTA Tube (test code = 0693) BODY FLUID CELL COUNT WITH [id number] 19:08:56 Test Item Value Reference Range Interpretation Comments APPEARANCE FLUID Cloudy Clear A (BEAKER) (test code = 510) COLOR FLUID (BEAKER) Red Colorless, Straw A (test code = 511) RBC FLUID (BEAKER) 93141 /cu mm <=1 H (test code = [...] for (BEAKER) (test code = malignancy 2619) [id number] Shaneka Saab M.D. (BEAKER) (test code = (electronic 2620) signature) CONTAINER BODY FLUID EDTA Tube (BEAKER) (test code = 2873) XR CHEST 1 VIEW PORTABLE / [id number] 17:34:06 [facility] : 1965 Sex: FTECHNIQUE: Frontal [...] Signed By: Adilia Polanco06/20/2023 17:36 CDTWorkstation Name: [id number] ABDOMEN/PELVIS WITH IV [id number] 13:52:23 [facility] : 1965 Sex: FCT of the abdomen [...] technique.Comparison Film: May 13, 2023 and May 10iscussion:There is a large left-sided pleural effusion and [...] Signed By: Manish Panda06/20/2023 13:54 CDTWorkstation Name: [id number] NATRIURETIC FACTOR (BNP)2023-06-20 10:56:51 Test Item Value Reference Range Interpretation Comments B-TYPE NATRIURETIC PEPTIDE (BEAKER) 40 pg/mL 0-100 (test code = 700) Hand Salter ID - ADMINHIGH SENSITIVITY TROPONIN [id number] 10:56:34 Test Item Value Reference Range Interpretation Comments HIGH SENSITIVITY TROPONIN I (test < pg/ml <=17 code = 8937728) Hand Salter ID - ADMINThe FLEET SERVICE CLERK STAT High Sensitivity Troponin-I results should be used in conjunction with other diagnostic information such as ECG, clinical observations and information, and patientsymptoms to aid in the diagnosis of PR. HEPATIC FUNCTION [id number] 10:50:36 Test Item Value Reference Range Interpretation [...] (test code = 24 U/L 6-55 347) Hand Salter ID - [id number] 10:50:36 Test Item Value Reference Range Interpretation Comments LIPASE (BEAKER) (test code = 749) 115 U/L 8-78 H Hand Salter ID - ADMINBASIC METABOLIC [id number] 10:50:35 Test Item Value Reference Range Interpretation [...] not appl icable for dialysis patien ts Hand Salter ID - ADMINPT/[id number] 10:39:45 Test Item Value Reference Range Interpretation [...] 1 VIEW PORTABLE / BEDSIDE 2023-06-20 10:38:10 [facility] : 1965 Sex: FINDICATION: SHORTNESS OF BREATHCOMPARISON: 06/15/2023TECHNIQUE: Single frontal view of the chest.FINDINGS: Lungs and pleura: Left basilar airspace disease, possibly withunderlying effusion, increased from prior exam 06/15/2023.Heart and mediastinum: Normal heart size. Unremarkable mediastinalcontours.Osseous structures: No acute abnormality.Other: None. Electronically Signed By: Estrella Walters06/20/2023 10:40 CDTWorkstation Name: [id number] W/PLT COUNT & AUTO [id number] 10:31:23 Test Item Value Reference Range Interpretation [...] = 2801) BODY FLUID CULTURE + GRAM [id number] 18:20:33 Test Item Value Reference Range Interpretation Comments CULTURE (BEAKER) (test code = 1095) No growth US [id number] 15:11:52 [facility] : 1965 Sex: FUltrasound guided left thoracentesis.Clinical History: Left pleural effusion.Modality: Ultrasound.Sedation: None. Cloth Washer Back Tender: Lupe Youngt: None. Estimated Blood Loss: 1ccSpecimen: [...] thoracentesis.Electronically Signed By: Mikael Darnell06/16/2023 15:14 CDTWorkstation Name: [id number] 10:41:45 [facility] : 1965 Sex: FProcedure: Ultrasound-guided [...] The skin was thenpreppedand anesthetized. A 5 Palauan needle/catheter was inserted intothe peritoneal cavity and 3.75 L of reddish-yellow, cloudy fluid wereremoved. The catheter was removed.CONCLUSION:Ultrasound-guided paracent esis.Electronically Signed By: Fahad Nuno 10:46 CDTWorkstation Name: [id number] CHEST 1 VIEW PORTABLE / [id number] 07:29:51 [facility] : 1965 Sex: FXR CHEST 1 VIEW PORTABLE / BEDSIDECLINICAL HISTORY: left side thoracentesis TECHNIQUE: Single view of thechest.COMPARISON: June 13, 2023IMPRESSION:Reduced left lung base opacities suggestive of compressive atelectasiswith possible residual small effusion. No pneumothorax. Thecardiomediastinal silhouetteis unremarkable for AP technique. Theosseous structures appear stable.Electronically Signed By: Joselin Hylton06/16/2023 07:31 CDTWorkstation Name: [id number] FLUID CELL COUNT WITH [id number] 21:25:01 Test Item Value Reference Range Interpretation Comments APPEARANCE FLUID (BEAKER) (test Bloody Clear A code = 510) COLOR FLUID (BEAKER) (test code Red Colorless, Straw A = 511) RBC FLUID (BEAKER) (test code = 33557 /cu mm <=1 H 513) TOTAL NUCLEATED [...] = 2873) BODY FLUID CELL COUNT WITH [id number] 18:15:44 Test Item Value Reference Range Interpretation Comments APPEARANCE FLUID Turbid Clear A (BEAKER) (test code = 510) COLOR FLUID (BEAKER) [employer] Colorless, Straw A (test code = 511) RBC FLUID (BEAKER) 90033 /cu mm <=1 H (test code = [...] for (BEAKER) (test code = malignancy 2619) [id number] Shaneka Saab M.D. (BEAKER) (test code = (electronic 2620) signature) CONTAINER BODY FLUID EDTA Tube (BEAKER) (test code = 2873) BODY FLUID CELL COUNT WITH [id number] 18:14:08 Test Item Value Reference Range Interpretation Comments APPEARANCE FLUID Turbid Clear A (BEAKER) (test code = 510) COLOR FLUID (BEAKER) [employer] Colorless, Straw A (test code = 511) RBC FLUID (BEAKER) 10628 /cu mm <=1 H (test code = [...] for (BEAKER) (test code = malignancy 2619) [id number] Shaneka Saab M.D. (BEAKER) (test code = (electronic 2620) signature) CONTAINER BODY FLUID EDTA Tube (BEAKER) (test code = 2873) US [id number] 09:02:50 [facility] : 1965 Sex: FUltrasound guided left thoracentesis.Clinical History: Left pleural effusion.Modality: Ultrasound.Sedation: None. Cloth Washer Back Tender: Hannah Lylest: None. Estimated Blood Loss: 1ccSpecimen: 2400 cc [...] area wasanesthetized with 2% lidocaine, a 4 [place] one-step catheter wasadvanced into the pleural space under ultrasound guidance. Aftercompletion of drainage, the catheter was removed. There was no evidenceof immediate complication. Post procedure chest x-ray demonstrated nopneumothorax. IMPRESSION:Impression:Successful and uncomplicated ultrasound guided left thoracentesis.Electronically Signed By: Chano Baxter 09:04 CDTWorkstation Name: [id number] FLUID CELL COUNT WITH DIFFERENTIAL 2023-06-13 14:07:46 Test Item Value Reference Range Interpretation Comments APPEARANCE FLUID (BEAKER) Bloody Clear A (test code = 510) COLOR FLUID (BEAKER) (test [place] Colorless, Straw A code = 511) RBC FLUID (BEAKER) (test 29825 /cu mm <=1 H code = 513) [...] (BEAKER) (test code = 2873) COMPREHENSIVE METABOLIC [id number] 12:02:40 Test Item Value Reference Range Interpretation [...] not appl icable for dialysis patien ts Hand Salter ID - JSBILIRUBIN, [id number] 12:02:40 Test Item Value Reference Range Interpretation Comments BILIRUBIN DIRECT (BEAKER) (test 0.7 mg/dL 0.1-0.5 H code = 706) Hand Salter ID - JSURINALYSIS W/ [id number] 12:02:07 Test Item Value Reference Range Interpretation [...] (test code Urine, Clean Catch = 2795) Hand Salter ID - [auto]Hand Salter ID - techPROTHROMBIN TIME/[id number] 11:39:52 Test Item Value Reference Range Interpretation [...] mechanical heart valves.CBC W/PLT COUNT & AUTO [id number] 11:17:07 Test Item Value Reference Range Interpretation [...] 2801) XR CHEST 1 VIEW PORTABLE / [id number] 10:26:47 [facility] : 1965 Sex: [...] Signed By: Wilber Hylton06/13/2023 10:28 CDTWorkstation Name: [id number] [id number] 12:00:40 Test Item Value Reference Range Interpretation Comments CULTURE (BEAKER) (test No growth in 5 days code = 1095) BLOOD [id number] 12:00:40 Test Item Value Reference Range Interpretation Comments CULTURE (BEAKER) (test No growth in 5 days code = 1095) US [id number] 12:18:33 [facility] : 1965 Sex: FULTRASOUND GUIDED PARACENTESISHistory provided: [...] Signed By: Mp Harris06/09/2023 12:21 CDTWorkstation Name: BLIPIH4OC THORACENTESIS 2023-06-09 11:39:25 [facility] : 1965 Sex: FULTRASOUND GUIDED [...] thoracentesis.Electronically Signed By:Mp Harris06/09/2023 11:47 CDTWorkstation Name: [id number] CHEST 1 VIEW PORTABLE / [id number] 11:38:35 [facility] : 1965 Sex: FChest AP portable erectCOMPARISON STUDY: 06/07/2023History provided: Status post 2 L left thoracentesis, hepatichydrothoraxSmall amount of pleural fluid remains on the left. No pneumothorax.Lungs are clear and heart size normal.Electronically Signed By: Mp Roth 11:40 CDTWorkstation Name: [id number] CHEST 2 [id number] 13:30:11 [facility] : 1965 Sex: FEXAMINATION: XR CHEST 2 VIEWS INDICATION: SOBCOMPARISON: CXR of the prior day FINDINGS:LINES/TUBES: None LUNGS: The lungs are well inflated. No focal airspace consolidation.PLEURA: No pleural effusion or pneumothorax.MEDIASTINUM: Interval development of moderate left pleural effusion.BONES/SOFT TISSUES: Noacute osseous injury.ABDOMEN: No free air under the diaphragm.IMPRESSION:Moderate left pleural effusion.Electronically Signed By: Alexandro Alberto06/07/2023 13:32 CDTWorkstation Name: [id number] FETOPROTEIN (AFP), TUMOR [id number] 13:04:03 Test Item Value Reference Range Interpretation Comments ALPHA-FETOPROTEIN (BEAKER) (test 2.4 ng/mL <10.0 code = 1094) Hand Salter ID - ADMINCBC W/PLT COUNT & AUTO [id number] 12:46:38 Test Item Value Reference Range Interpretation [...] (BEAKER) (test code = 2801) COMPREHENSIVE METABOLIC [id number] 12:03:20 Test Item Value Reference Range Interpretation [...] not appl icable for dialysis patien ts Hand Salter ID - EOBILIRUBIN, [id number] 12:03:20 Test Item Value Reference Range Interpretation Comments BILIRUBIN DIRECT (BEAKER) (test 0.8 mg/dL 0.1-0.5 H code = 706) Hand Salter ID - EOPROTHROMBIN TIME/[id number] 11:59:37 Test Item Value Reference Range Interpretation Comments PROTIME (BEAKER) (test code = 20.6 seconds 11.9-14.2 H 759) INR (BEAKER) (test code = 370) 1.81 <=5.90 RECOMMENDED COUMADIN/WARFARIN INR THERAPY RANGESSTANDARD DOSE: 2.0 - 3.0 Includes: PROPHYLAXIS for venous thrombosis, systemic embolization; TREATMENT for venous thrombosis and/or pulmonary embolus.HIGH RISK: Target INR is 2.5-3.5 for patients with mechanical heart valves. [id number] 13:54:41 [facility] : 1965 Sex: FUltrasound guided left thoracentesis.Clinical History: Left pleural effusion.Modality: Ultrasound.Sedation: None. Cloth Washer Back Tender: Ellis Lylesistant: None. Estimated Blood Loss: 1ccSpecimen: 2050 cc of cloudy serosanguineous fluid. Technique: Informed consent was obtained. The risks of pain, b leeding,infection, lung collapse/pneumothorax, injury to adjacent structures,and adverse medication reactions were discussed with the patient. Thepatient's left hemithorax was scanned from the back, with the patient rowena sitting position. After the largest fluid pocket area was marked, theskin was prepped and draped in the usual sterile manner. The area wasanesthetized with 2% lidocaine, a 4 [place] one-step catheter wasadvanced into the pleural space under ultrasound guidance. Aftercompletion of drainage, the catheter was removed. There was no evidenceof immediate complication. Post procedure chest x-ray demonstrated nopneumothorax. IMPRESSION:Impression:Successful and uncomplicated ultrasound guided left thoracentesis.Electronically Signed By: Galen Lovett06/06/2023 13:56 CDTWorkstation Name:[id number] FLUID CELL COUNT WITH DIFFERENTIAL 2023-06-06 13:34:54 Test Item Value Reference Range Interpretation Comments APPEARANCE FLUID (BEAKER) Turbid Clear A (test code = 510) COLOR FLUID (BEAKER) (test [place] Colorless, Straw A code = 511) RBC FLUID (BEAKER) (test 28695 /cu mm <=1 H code = 513) [...] 2873) XR CHEST 1 VIEW PORTABLE / [id number] 12:21:34 [facility] : 1965 Sex: FINDICATION: s/p left thoracentesisCOMPARISON: 06/03/2023TECHNIQUE: Single frontal view of the chest.FINDINGS: Lines, tubes, and devices: None.Lungs and pleura: Scattered linear atelectasis is present. Nopneumothorax.Heart and mediastinum: Normal heart size. Unremarkable mediastinalcontours.Osseous structures: No acute abnormality.Other: None.IMPRESSION:No acute intrathoracic abnormality.Electronically Signed By: Brian Gresham06/06/2023 12:23 CDTWorkstation Name: [id number] FLUID CELL COUNT WITH [id number] 19:43:07 Test Item Value Reference Range Interpretation Comments APPEARANCE FLUID (BEAKER) (test Cloudy Clear A code = 510) COLOR FLUID (BEAKER) (test code Yellow Colorless, Straw A = 511) RBC FLUID (BEAKER) (test code = 51059 /cu mm <=1 H 513) TOTAL NUCLEATED [...] = 2873) BODY FLUID CELL COUNT WITH [id number] 19:39:04 Test Item Value Reference Range Interpretation Comments APPEARANCE FLUID (BEAKER) (test Cloudy Clear A code = 510) COLOR FLUID (BEAKER) (test code [place] Colorless, Straw A = 511) RBC FLUID (BEAKER) (test code = 46606 /cu mm <=1 H 513) TOTAL NUCLEATED [...] 2873) XR CHEST 1 VIEW PORTABLE / [id number] 18:37:20 [facility] : 1965 Sex: FExam: XR CHEST 1 VIEW PORTABLE / BEDSIDEDate: 06/03/2023 6:36 PMIndication:s/p left thoracentesisComparison: 05/31/2023FINDINGS:Lines/Tubes/Devices: NoneLungs/pleura:Borderline lung volumes. Central vascular and interstitialprominence. Trace right effusion. Interval decrease in size of lefteffusion with no pneumothorax.Heart/Mediastinum:Magnified by portable technique.Bones/Soft Tissues: No acute osseous abnormality.Upper abdomen: Unremarkable.IMPRESSION:Borderline lung volumes.Congestion/edema.Trace right effusion.Interval decrease in size of left effusion with no pneumothorax. Electronically Signed By: Mikael Darnell06/03/2023 18:39 CDTWorkstation Name: [id number] 16:52:49 [facility] : 1965 Sex: FUltrasound guided left thoracentesis.Clinical History: Left pleural effusion.Modality: Ultrasound.Sedation: None. Cloth Washer Back Tender: Lupe Youngt: None. Estimated Blood Loss: 1ccSpecimen: 2400 cc [...] Signed By: Lee Diaz06/03/2023 16:54 CDTWorkstation Name: [id number] 16:52:47 [facility] : 1965 Sex: FUltrasound guided paracentesis.Clinical History: Ascites.Sedation: None. Cloth Washer Back Tender: Lupe Youngt: None. Estimated Blood Loss: < [...] anesthesia was achieved with 2% lidocaine,a 5 [place]au[place] one- step catheter was advanced into the peritoneal cavityunder ultrasound guidance. After completion of drainage, the catheterwas removed. There was no evidence of complication.IMPRESSION:Impression:Successful ultrasound guided paracentesis.Electronically Signed By: Lee Diaz06/03/2023 16:54 CDTWorkstation Name: [id number] 15:19:25 Test Item Value Reference Range Interpretation Comments POC-CREATININ 1.3 mg/dL 0.6-1.3 : TESTED AT [facility] [address]) [facility], [address]: (test code = Hand Salter/Techni shavon ID = [id number]) [id number] for Fall er, [place] POC-EGFR 47 Interpretation of eGFR (BEAKER) mL/min/1.73M2 [...] appl icable for dialysis patien BASIC METABOLIC [id number] 10:36:57 Test Item Value Reference Range Interpretation [...] (test code = 697) EGFR (BEAKER) 44 Interpretatio n of eGFR (test code = [...] not appl icable for dialysis patien ts Hand Salter ID - [id number] 20:11:59Medical Cytology Report Case: [id number] Authorizing Provider: Zakia Taylor MD Collected: 05/30/2023 01:14 PM Ordering Location: [address] Received: 05/31/2023 08:46 AM Service Pathologist: Hany Ferrer MD Specimen: Pleural, Left LEFT PLEURAL FLUID (CYTOSPINS AND CELL BLOCK): -NEGATIVE FOR MALIGNANCY Reactive mesothelial cells admixed with many histiocytes and small lymphocytes with background blood Signing Pathologist Direct Phone Line: [phone] signed by Hany Ferrer MD on 06/01/2023 at 8:11 [id number], [id number] y.o. F with decompensated CIFUENTES cirrhosis c/bascites/hydrothorax [...] was fixed in formalin at 16:23 on 3Performed.[facility], [facility], [address] [place] [address], [facility], [facility] of Pathology, [address] [place] [address], [facility], Department of Pat [facility]ology, [address] [place] [address], RRZC FLUID CULTURE + GRAM [id number] 14:54:01 Test Item Value Reference Range Interpretation Comments CULTURE (BEAKER) (test code = 1095) No growth BODY FLUID CULTURE + GRAM [id number] 14:53:49 Test Item Value Reference Range Interpretation Comments CULTURE (BEAKER) No growth (test code = 1095) GRAM STAIN RESULT 2+ WBCs Initial gr am stain (BEAKER) (test performed hui or to code = 1123) incubation. 05/30/2023 7:45 PMEjonone Fermin GRAM STAIN RESULT No organisms seen Initi al gram stain (BEAKER) (test performed hui or to code = 640193) incubation. 05/30/2023 7:45 PMEjonone Fermin URINALYSIS WITHOUT [id number] 14:07:53 Test Item Value Reference Range Interpretation [...] = 463) SOURCE(BEAKER) (test code = 2795) Hand Salter ID - [auto]Hand Salter ID - techSODIUM, RANDOM [id number] 14:00:32 Test Item Value Reference Range Interpretation Comments SODIUM URINE (BEAKER) (test code = < meq/L 243) Reference Range: No NormalsOperator ID - ADMINCHLORIDE, RANDOM [id number] 13:50:48 Test Item Value Reference Range Interpretation Comments CHLORIDE URINE (BEAKER) (test code = < meq/L 20-330 L 682) Reference Range: No NormalsOperator ID - ADMINPOTASSIUM, RANDOM [id number] 13:50:48 Test Item Value Reference Range Interpretation Comments POTASSIUM URINE (BEAKER) (test 40.7 meq/L code = 195) Reference Range: No NormalsOperator ID - ADMINXR CHEST 1 VIEW PORTABLE / BEDSIDE 2023-06-01 13:33:28 [facility] : 1965 Sex: FEXAMINATION: [...] Signed By: Ken Sauer06/01/2023 13:35 CDTWorkstation Name: [id number] 2023-06-01 08:58:03 Test Item Value Reference Range Interpretation Comments CORTISOL, TOTAL (BEAKER) (test code 4.3 ug/dL 3.7-19.4 = 2755) Hand Salter ID - EMCOMPREHENSIVE METABOLIC [id number] 06:27:56 Test Item Value Reference Range Interpretation [...] not appl icable for dialysis patien ts Hand Salter ID - [id number] 06:23:51 Test Item Value Reference Range Interpretation Comments MAGNESIUM (BEAKER) (test code = 2.0 mg/dL 1.6-2.6 627) Hand Salter ID - [id number] 06:23:51 Test Item Value Reference Range Interpretation Comments PHOSPHORUS (BEAKER) (test code = 4.2 mg/dL 2.3-4.7 604) Hand Salter ID - EMPROTHROMBIN TIME/[id number] 06:03:59 Test Item Value Reference Range Interpretation [...] /100 WBC 0-0 (test code = 413) [id number] 16:04:53 Test Item Value Reference Range Interpretation Comments PHOSPHORUS (BEAKER) (test code = 3.5 mg/dL 2.3-4.7 604) Hand Salter ID - EMPTH, [id number] 09:20:01 Test Item Value Reference Range Interpretation Comments PARATHYROID HORMONE INTACT 32.8 pg/mL 8.5-72.5 (BEAKER) (test code = 577) Hand Salter ID - EMCALCIUM, [id number] 08:55:20 Test Item Value Reference Range Interpretation [...] 0-0 (test code = 413) BASIC METABOLIC [id number] 06:24:57 Test Item Value Reference Range Interpretation [...] not appl icable for dialysis patien ts Hand Salter ID - [id number] 06:17:32 Test Item Value Reference Range Interpretation Comments MAGNESIUM (BEAKER) 1.8 mg/dL 1.6-2.6 Specimen slightly (test code = 627) hemolyzed Hand Salter ID - MMBASIC METABOLIC [id number] 17:03:14 Test Item Value Reference Range Interpretation [...] not appl icable for dialysis patien ts Hand Salter ID - MMBLOOD GAS, [id number] 16:57:12 Test Item Value Reference Range Interpretation [...] (test code = 1819) 21.0 LACTIC ACID, [id number] 16:56:33 Test Item Value Reference Range Interpretation Comments LACTATE BLOOD VENOUS (2) (BEAKER) 1.74 mmol/L 0.50-2.00 (test code = 2872) Hand Salter ID - MMUS [id number] 16:30:45 [facility] : 1965 Sex: FUltrasound guided left thoracentesis.Clinical History: Left pleural effusion.Modality: Ultrasound.Sedation: None. Cloth Washer Back Tender: Lupe Corralistant: None. Estimated Blood Loss: 1ccSpecimen: 2100 [...] Signed By: Ken Sauer05/30/2023 16:32 CDTWorkstation Name: [id number] 16:30:43 [facility] : 1965 Sex: FUltrasound guided paracentesis.Clinical History: Ascites.Sedation: None. Cloth Washer Back Tender: Lupe Youngt: None. Estimated Blood Loss: < [...] anesthesia was achieved with 2% lidocaine,a 5 [place] one-step catheter was advanced into the peritoneal cavityunder ultrasound guidance. After completion of drainage, the catheterwas removed. There was no evidence of complication.IMPRESSION:Impression:Successful ultrasound guided paracentesis.Electronically Signed By: Ken Sauer05/30/2023 16:32 CDTWorkstation Name: [id number] FLUID CELL COUNT WITH [id number] 16:28:58 Test Item Value Reference Range Interpretation Comments APPEARANCE FLUID Cloudy Clear A (BEAKER) (test code = 510) COLOR FLUID (BEAKER) Brown Colorless, Straw A (test code = 511) RBC FLUID (BEAKER) 75331 /cu mm See_Comment H [Automat ed message] [...] (BEAKER) (test code = 2873) BASIC METABOLIC [id number] 15:47:55 Test Item Value Reference Range Interpretation [...] 8.4-10.2 L (test code = 697) EGFR (DANNY) 48 Interpretatio n of eGFR (test code [...] not appl icable for dialysis patien ts Hand Salter ID - MMXR CHEST 1 VIEW PORTABLE / [id number] 14:38:54 [facility] : 1965 Sex: [...] By: Lj Stevenson MD05/30/2023 14:40 CDTWorkstation Name: [id number] CHEST 1 VIEW PORTABLE / BEDSIDE 2023-05-30 13:41:45 [facility] : 1965 Sex: FCLINICAL HISTORY: f/u pleural effusion TECHNIQUE: 1 view of the chest.COMPARISON: 05/27/2023IMPRESSION:There is an increased small left pleural effusion with adjacent airspaceopacity. The right lung remains well-aerated. No cardiomegaly.Electronically Signed By: Antwan Flor05/30/2023 13:43 CDTWorkstation Name: [id number] 09:50:06Medical Cytology Report Case: [id number] Authorizing Provider: Rigo Sanz MD Collected: 05/27/2023 09:09 AM Ordering Location: [address] Received: 05/27/2023 12:34 PM Service Pathologist: Salvador Davenport MD Specimen: Peritoneal Fluid PERITONEAL FLUID (CYTOSPINS AND CELL BLOCK): - NEGATIVE FOR MALIGNANCY Reactive mesothelial cells admixed with mixed inflammatory cells Signing Pathologist Direct Phone Line: [phone] signed by Salvador Davenport MD on 05/30/2023 at 9:50 AMPlease also see cytopathology case: [id number], [id number] y.o. F with decompensated cirrhosis secondaryto Cifuentes, [...] fixed in formalin at 14:06 on 05/27/2023 Performed.[facility], Department of Pathology, [address] [place] [address], [facility]idCommunity [facility], Department of Pathology, [address] [place] [address], [facility], Department of [facility]ology, [address] [place] [address], BCPOPBXC 2023-05-30 09:45:15Medical Cytology Report Case: [id number] Authorizing Provider: Rigo Sanz MD Collected: 05/27/2023 10:05 AM Ordering Location: [address] Received: 05/27/2023 12:58 PM Service Pathologist: Salvador Davenport MD Specimen: Pleural, Left LEFT PLEURAL FLUID (CYTOSPINS AND CELL BLOCK): - NEGATIVE FOR MALIGNANCY Reactive mesothelial cells admixed with many histiocytes and small lymphocytes Signing Pathologist Direct Phone Line: [phone] signed by Salvador Davenport MD on 05/30/2023 at 9:45 AMPlease also see cytopathology case: [id number], [id number] y.o. 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 Pleural, LeftReceived 1100 mls pink cloudy fluid; prepared 4 cytospins and cell block(A2)(collodion bag) - the cell block was fixed in formalin at 14:13 on 05/27/2023 Performed.[facility], Department of Pathology, [address] [place] [address], [facility], Department ofPathology, [address] [place] [address], [facility]uhCommunity [facility] of [facility]ology, [address] [place] [address], ZYYDCTM DEHYDROGENASE (LDH)2023-05-30 08:06:15 Test Item Value Reference Range Interpretation Comments LACTATE DEHYDROGENASE (BEAKER) (test 257 U/L 125-220 H code = 635) Hand Salter ID - [id number] 07:17:06 Test Item Value Reference Range Interpretation Comments FERRITIN (BEAKER) (test code = 263.31 ng/mL 5.00-275.00 361) Hand Salter ID - MIGUELOVITAMIN [id number] 07:00:10 Test Item Value Reference Range Interpretation Comments VITAMIN B12 (BEAKER) (test code = 1118 pg/mL 213-816 H 774) Hand Salter ID - MIGUELOBASIC METABOLIC [id number] 06:37:01 Test Item Value Reference Range Interpretation [...] not appl icable for dialysis patien ts Hand Salter ID - [id number] 06:37:01 Test Item Value Reference Range Interpretation Comments MAGNESIUM (BEAKER) (test code = 2.1 mg/dL 1.6-2.6 627) Hand Salter ID - HANY, TIBC, % SAT. (WITHOUT FERRITIN)2023-05-30 06:30:22 Test Item Value Reference Range Interpretation Comments IRON (BEAKER) (test code = 547) 59.0 ug/dL 40.0-160.0 TOTAL IRON BINDING CAPACITY 113 ug/dL 250-450 L (BEAKER) (test code = 769) IRON % SATURATION (2) (BEAKER) 52 % 20-55 (test code = 2590) Hand Salter ID - MARCOCBC (HEMOGRAM ONLY)2023-05-30 06:25:23 Test Item Value Reference [...] = 413) BODY FLUID CULTURE + GRAM [id number] 17:02:00 Test Item Value Reference Range Interpretation Comments CULTURE (BEAKER) (test code = 1095) No growth BODY FLUID CULTURE + GRAM [id number] 17:01:59 Test Item Value Reference Range Interpretation Comments CULTURE (BEAKER) (test code = 1095) No growth BASIC METABOLIC [id number] 14:41:59 Test Item Value Reference Range Interpretation [...] not appl icable for dialysis patien ts Hand Salter ID - TOSHA [id number] 02:04:38 Test Item Value Reference Range Interpretation Comments PHOSPHORUS (BEAKER) 3.6 mg/dL 2.3-4.7 Specimen slightly (test code = 604) hemolyzed Hand Salter ID - ADMINCOMPREHENSIVE METABOLIC [id number] 02:04:38 Test Item Value Reference Range Interpretation [...] not appl icable for dialysis patien ts Hand Salter ID - [id number] 02:04:37 Test Item Value Reference Range Interpretation Comments MAGNESIUM (BEAKER) 2.1 mg/dL 1.6-2.6 Specimen slightly (test code = 627) hemolyzed Hand Salter ID - ADMINPROTHROMBIN TIME/[id number] 02:00:57 Test Item Value Reference Range Interpretation Comments PROTIME (BEAKER) 19.0 seconds 11.9-14.2 H (test code = 759) INR (BEAKER) (test 1.71 See_Comment [Automat ed message] code = 370) The system Evtron generated this result transmitted ref erence range: [...] (test 185 U/L 125-220 code = 635) Hand Salter ID - ADMINOSMOLALITY, [id number] 13:50:12 Test Item Value Reference Range Interpretation Comments OSMOLALITY, SERUM (BEAKER) (test 286 mOsm/kg 275-295 code = 615) BASIC METABOLIC [id number] 12:16:44 Test Item Value Reference Range Interpretation [...] not appl icable for dialysis patien ts Hand Salter ID - ADMINSODIUM, RANDOM [id number] 12:03:54 Test Item Value Reference Range Interpretation Comments SODIUM URINE (BEAKER) (test code = < meq/L 243) Reference Range: No NormalsOperator ID - ADMINCHLORIDE, RANDOM [id number] 11:46:25 Test Item Value Reference Range Interpretation Comments CHLORIDE URINE (BEAKER) (test code = < meq/L 20-330 L 682) Reference Range: No NormalsOperator ID - ADMINOSMOLALITY, [id number] 10:35:30 Test Item Value Reference Range Interpretation Comments OSMOLALITY URINE 571 mOsm/kg See_Comment [Automated message] (BEAKER) (test code = The sy stem which 614) generated this result transmitted ref erence range: 50-1,200 mOsm/kg. The reference range was not used to int erpret this result as normal/abnormal . COMPREHENSIVE METABOLIC [id number] 02:35:42 Test Item Value Reference Range Interpretation [...] not appl icable for dialysis patien ts Hand Salter ID - [id number] 02:35:41 Test Item Value Reference Range Interpretation Comments MAGNESIUM (BEAKER) 2.1 mg/dL 1.6-2.6 Specimen slightly (test code = 627) hemolyzed Hand Salter ID - [id number] 02:35:41 Test Item Value Reference Range Interpretation Comments PHOSPHORUS (BEAKER) 3.5 mg/dL 2.3-4.7 Specimen slightly (test code = 604) hemolyzed Hand Salter ID - ADMINPROTHROMBIN TIME/[id number] 02:22:16 Test Item Value Reference Range Interpretation Comments PROTIME (BEAKER) 20.6 seconds 11.9-14.2 H (test code = 759) INR (BEAKER) (test 1.89 See_Comment [Automat ed message] code = 370) The system Evtron generated this result transmitted ref erence range: [...] WBC 0-0 (test code = 413) US [id number] 13:56:27 [facility] : 1965 Sex: FUltrasound guided paracentesis.Clinical History: Ascites.Sedation: None. Cloth Washer Back Tender: Danuta Thomast: None. Estimated Blood Loss: < 1 cc.Specimen: [...] anesthesia was achieved with 2% lidocaine,a 5 [place] one-step catheter was advanced into the peritoneal cavityunder ultrasound guidance. After completion of drainage, the catheterwas removed. There was no evidence of complication.IMPRESSION:Impression:Successful ultrasound guided paracentesis.Electronically Signed By: Galen Lovett05/27/2023 13:58 CDTWorkstation Name: [id number] [id number] 13:56:26 [facility]ER : 1965 Sex: FUltrasound guided left thoracentesis.Clinical History: Left pleural effusion.Modality: Ultrasound.Sedation: None. Cloth Washer Back Tender: Danuta Corralistant: None. Estimated Blood Loss: 1ccSpecimen: [...] Signed By: Galen Lovett05/27/2023 13:58 CDTWorkstation Name: [id number] FLUID CELL COUNT WITH [id number] 13:48:51 Test Item Value Reference Range Interpretation Comments APPEARANCE FLUID Bloody Clear A (BEAKER) (test code = 510) COLOR FLUID (BEAKER) Red Colorless, Straw A (test code = 511) RBC FLUID (BEAKER) 12234 /cu mm See_Comment H [Automat ed message] [...] = 2873) BODY FLUID CELL COUNT WITH [id number] 13:48:16 Test Item Value Reference Range Interpretation Comments APPEARANCE FLUID Bloody Clear A (BEAKER) (test code = 510) COLOR FLUID (BEAKER) Red Colorless, Straw A (test code = 511) RBC FLUID (BEAKER) 65855 /cu mm See_Comment H [Automat ed message] [...] 2873) XR CHEST 1 VIEW PORTABLE / [id number] 11:47:09 [facility] : 1965 Sex: [...] thoracic aorta.BONES/SOFT TISSUES: No acute osseous injury.ABDOMEN: No free air under the diaphragm.IMPRESSION:No pneumothorax following left thoracentesis.Electronically Signed By: Deandre Retana05/27/2023 12:01 CDTWorkstation Name: [id number] 2023-05-27 07:10:45 Test Item Value Reference Range Interpretation Comments MAGNESIUM (BEAKER) (test code = 2.2 mg/dL 1.6-2.6 627) Hand Salter ID - ADMINHEPATIC FUNCTION [id number] 07:10:45 Test Item Value Reference Range Interpretation [...] (test code = 25 U/L 6-55 347) Hand Salter ID - ADMINBASIC METABOLIC [id number] 07:10:44 Test Item Value Reference Range Interpretation [...] not appl icable for dialysis patien ts Hand Salter ID - ADMINPROTHROMBIN TIME/[id number] 06:47:38 Test Item Value Reference Range Interpretation Comments PROTIME (BEAKER) 19.9 seconds 11.9-14.2 H (test code = 759) INR (BEAKER) (test 1.81 See_Comment [Automat ed message] code = 370) The system Evtron generated this result transmitted ref erence range: <=5.90. The reference range was not used to int erpret this result as normal/abnormal . RECOMMENDED COUMADIN/WARFARIN INR THERAPY RANGESSTANDARD DOSE: 2.0 - 3.0 Includes: PROPHYLAXIS for venous thrombosis, systemic embolization; TREATMENT for venous thrombosis and/or pulmonary embolus.HIGH RISK: Target INR is 2.5-3.5 for patients with mechanical heart valves.CBC W/PLT COUNT & AUTO [id number] 06:46:29 Test Item Value Reference Range Interpretation [...] (BEAKER) (test code = 2801) COMPREHENSIVE METABOLIC [id number] 18:10:21 Test Item Value Reference Range Interpretation [...] not appl icable for dialysis patien ts Hand Salter ID - ADMINXR CHEST 1 VIEW PORTABLE / [id number] 18:02:01 [facility] : 1965 Sex: FTECHNIQUE: Frontal view of the chest.INDICATION: eval for left pleural effusion.COMPARISON: 05/23/2023.FINDINGS:LINES/TUBES: None.HEART AND MEDIASTINUM: Cardiomediastinal contour is stable. LUNGS: The lungs are well inflated and clear. No consolidation orpulmonary edema.PLEURA: New small left pleural effusion. No pneumothorax.SOFT TISSUES AND BONES: Unremarkable.IMPRESSION:1. New small left pleural effusion. No pneumothorax.Electronically Signed By: Adilia Polanco05/26/2023 18:04 CDTWorkstation Name:[id number] ACID, VENOUS 2023-05-26 17:59:38 Test Item Value Reference Range Interpretation Comments LACTATE BLOOD VENOUS 1.75 mmol/L 0.50-2.00 Specime n slightly (2) (BEAKER) (test hemolyzed code = 2872) Hand Salter ID - ADMINCBC W/PLT COUNT & AUTO [id number] 17:55:38 Test Item Value Reference Range Interpretation [...] (test code = 2801) HIGH SENSITIVITY TROPONIN [id number] 21:21:49 Test Item Value Reference Range Interpretation Comments HIGH SENSITIVITY < pg/ml See_Comment [Automated message] TROPONIN I (test code = The system which [id number]) generated this result transmitted ref erence range: <=17. Th e reference range was not used to interpr et this result as normal/abnormal . Hand Salter ID - ADMINThe FLEET SERVICE CLERK STAT High Sensitivity Troponin-I results should be used in conjunction with other diagnostic information such as ECG, clinical observations and information, and patientsymptoms to aid in the diagnosis of PR. [id number] 21:18:10 Test Item Value Reference Range Interpretation Comments LIPASE (BEAKER) (test code = 749) 190 U/L 8-78 H Hand Salter ID - ADMINCOMPREHENSIVE METABOLIC [id number] 21:18:09 Test Item Value Reference Range Interpretation [...] not appl icable for dialysis patien ts Hand Salter ID - [id number] 21:18:09 Test Item Value Reference Range Interpretation Comments MAGNESIUM (BEAKER) (test code = 2.3 mg/dL 1.6-2.6 627) Hand Salter ID - ADMINCBC W/PLT COUNT & AUTO [id number] 21:03:50 Test Item Value Reference Range Interpretation [...] 0.00-1.00 PERCENT (BEAKER) (test code = 2801) [id number] 10:13:39 [facility] : 1965 Sex: FUltrasound guided left thoracentesis.Clinical History: Left pleural effusion.Modality: Ultrasound.Sedation: None. Cloth Washer Back Tender: Danuta Corralistant: None. Estimated Blood Loss: 1ccSpecimen: [...] Signed By: Chano Enriquez05/24/2023 10:15 CDTWorkstation Name: [id number] FLUID CELL COUNT WITH [id number] 14:05:09 Test Item Value Reference Range Interpretation Comments APPEARANCE FLUID Cloudy Clear A (BEAKER) (test code = 510) COLOR FLUID (BEAKER) [place] Colorless, Straw A (test code = 511) RBC FLUID (BEAKER) 87581 /cu mm See_Comment H [Automat ed message] [...] 2873) XR CHEST 1 VIEW PORTABLE / [id number] 10:01:15 [facility] : 1965 Sex: FEXAMINATION: [...] pneumonia or airspace edema.Electronically Signed By: Alexandro Ryan05/23/2023 10:03 CDTWorkstation Name: [id number] [id number] 17:34:08[facility] : 1965 Sex: FUltrasound guided paracentesis.Clinical History: Ascites.Sedation: None. Cloth Washer Back Tender: Ellis Munozistant: None. Estimated Blood Loss: < [...] draped in the usualsterile manner. After local anesthesiawas achieved with 2% lidocaine,a 5 [place] one-step catheter was advanced into the peritoneal cavityunder ultrasound guidance. After completion of drainage, the catheterwas removed. There was no evidence of complication.IMPRESSION:Impression:Successful ultrasound guided paracentesis. Electronically Signed By: Galen Lovett05/20/2023 17:36 CDTWorkstation Name: [id number] 17:34:07 [facility] : 1965 Sex: FUltrasound guided left-sided thoracentesis.Clinical History: Left pleural effusion.Modality: Ultrasound.Sedation: None. Cloth Washer Back Tender: Lida Munoz: None. Estimated Blood Loss: 1ccSpecimen: 2100 cc [...] Signed By: Galen Lovett05/20/2023 17:36 CDTWorkstation Name: [id number] FLUID CELL COUNT WITH [id number] 15:58:13 Test Item Value Reference Range Interpretation Comments APPEARANCE FLUID Cloudy Clear A (BEAKER) (test code = 510) COLOR FLUID (BEAKER) [place] Colorless, Straw A (test code = 511) RBC FLUID (BEAKER) 58866 /cu mm See_Comment H [Automat ed message] [...] FLUID 21 % (BEAKER) (test code = 9996) LYMPHS FLUID 70 % (BEAKER) (test code = 488) MONO/MACROPHAGE 8 % FLUID (BEAKER) (test code = 489) EOSINOPHILS FLUID 1 % (BEAKER) (test code = 491) BASO FLUID (BEAKER) 0 % (test code = 492) CONTAINER BODY FLUID Sterile Vial (BEAKER) (test code = 2873) BODY FLUID CELL COUNT WITH [id number] 15:56:10 Test Item Value Reference Range Interpretation Comments APPEARANCE FLUID Cloudy Clear A (BEAKER) (test code = 510) COLOR FLUID (BEAKER) [place] Colorless, Straw A (test code = 511) RBC FLUID (BEAKER) 16191 /cu mm See_Comment H [Automat ed message] [...] 2873) XR CHEST 1 VIEW PORTABLE / [id number] 13:41:18 [facility] : 1965 Sex: FINDICATION: Post Thoracentesis LeftCOMPARISON: NoneTECHNIQUE: Single frontal view of the chest.FINDINGS: Lungs and pleura: Clear lungs. No effusion. No pneumothorax.Heart and mediastinum: Normal heart size.Unremarkable mediastinalcontours.Osseous structures: No acute abnormality.Other: None.IMPRESSION:No acute intrathoracic abnormality.Electronically Signed By: Estrella Walters05/20/2023 13:58 CDTWorkstation Name: [id number] 2023-05-20 11:08:26 Test Item Value Reference Range Interpretation Comments POC-CREATININ 1.8 mg/dL 0.6-1.3 H : TESTED AT [facility] [address] [place], [address]: (test code = Hand Salter/Techni shavon ID = [id number]) [id number] for Roseanna Abdi POC-EGFR 32 Interpretation of eGFR ([facility]) mL/min/1.73M2 Values Stage D escription (test [...] appl icable for dialysis patien ts BLOOD [id number] 13:01:03 Test Item Value Reference Range Interpretation Comments CULTURE ([facility]) (test No growth in 5 days code = 1095) BLOOD [id number] 13:00:54 Test Item Value Reference Range Interpretation Comments CULTURE (BEAKER) (test No growth in 5 days code = 1095) The specimen volume collected for this blood culture was below the optimum (10 mL per bottle or 20 mL total). Use of lower volumes may adversely affect recovery and/or detection times of some organisms.[id number] 04:55:48 Test Item Value Reference Range Interpretation Comments PHOSPHORUS (BEAKER) (test code = 3.0 mg/dL 2.3-4.7 604) Hand Salter ID - ADMINCOMPREHENSIVE METABOLIC [id number] 04:55:47 Test Item Value Reference Range Interpretation [...] not appl icable for dialysis patien ts Hand Salter ID - [id number] 04:55:47 Test Item Value Reference Range Interpretation Comments MAGNESIUM (BEAKER) (test code = 1.9 mg/dL 1.6-2.6 627) Hand Salter ID - ADMINCALCIUM, [id number] 04:34:04 Test Item Value Reference Range Interpretation Comments CALCIUM IONIZED (BEAKER) (test 1.14 mmol/L 1.12-1.27 code = 698) PH, BLOOD (BEAKER) (test code = 7.35 1810) CBC W/PLT COUNT & AUTO [id number] 04:30:17 Test Item Value Reference Range Interpretation [...] code = 2801) URINALYSIS W/ REFLEX URINE [id number] 17:32:40 Test Item Value Reference Range Interpretation [...] = 516) SOURCE(BEAKER) (test code = 2795) Hand Salter ID - [auto]Hand Salter ID - Juan F [id number] 16:48:41 [facility] : 1965 Sex: FUltrasound guided left-sided thoracentesis.Clinical History: Left pleural effusion.Modality: Ultrasound.Sedation: None. Cloth Washer Back Tender: Ellis Munozistant: None. Estimated Blood Loss: 1ccSpecimen: [...] Signed By: Lee Diaz05/17/2023 16:50 CDTWorkstation Name: [id number] FLUID CELL COUNT WITH [id number] 15:03:14 Test Item Value Reference Range Interpretation Comments APPEARANCE FLUID Bloody Clear A (BEAKER) (test code = 510) COLOR FLUID (BEAKER) Red Colorless, Straw A (test code = 511) RBC FLUID (BEAKER) 05439 /cu mm See_Comment H [Automat ed message] [...] 2873) XR CHEST 1 VIEW PORTABLE / [id number] 10:59:37 [facility] : 1965 Sex: FINDICATION: s/p left thoracentesisCOMPARISON: 05/13/2023TECHNIQUE: Single frontal view of the chest.FINDINGS: Lungs and pleura: Clear lungs. No effusion. No pneumothorax.Heart and mediastinum: Normal heart size. Unremarkable mediastinalcontours.Osseous structures: No acute abnormality.Other: None.IMPRESSION:No acute intrathoracic abnormality.Electronically Signed By: Estrella Walters05/17/2023 11:01 CDTWorkstation Name: [id number] FLUID CULTURE + GRAM [id number] 10:43:33 Test Item Value Reference Interpretation Comments [...] No organisms seen (BEAKER) (test code = 973221) GRAM STAIN RESULT From aerobic (BEAKER) (test code = bottle only: gram 266757) positive cocci in clusters COMPREHENSIVE METABOLIC [id number] 09:50:07 Test Item Value Reference Range Interpretation [...] appl icable for dialysis patien ts PROTHROMBIN TIME/[id number] 05:21:56 Test Item Value Reference Range Interpretation Comments PROTIME (BEAKER) 20.5 seconds 11.9-14.2 H (test code = 759) INR (BEAKER) (test 1.81 See_Comment [Automat ed message] code = 370) The system Evtron generated this result transmitted ref erence range: [...] code = 1095) No growth COMPREHENSIVE METABOLIC [id number] 05:31:14 Test Item Value Reference Range Interpretation [...] not appl icable for dialysis patien ts Hand Salter ID - [id number] 05:26:57 Test Item Value Reference Range Interpretation Comments PHOSPHORUS (BEAKER) (test code = 3.2 mg/dL 2.3-4.7 604) Hand Salter ID - [id number] 05:26:56 Test Item Value Reference Range Interpretation Comments MAGNESIUM (BEAKER) (test code = 1.8 mg/dL 1.6-2.6 627) Hand Salter ID - MIGUELOCBC W/PLT COUNT & AUTO [id number] 05:17:21 Test Item Value Reference Range Interpretation [...] PERCENT (BEAKER) (test code = 2801) PROTHROMBIN TIME/[id number] 05:16:13 Test Item Value Reference Range Interpretation Comments PROTIME (BEAKER) 21.0 seconds 11.9-14.2 H (test code = 759) INR (BEAKER) (test 1.94 See_Comment [Automat ed message] code = 370) The system Evtron generated this result transmitted ref erence range: <=5.90. The reference range was not used to int erpret this result as normal/abnormal . RECOMMENDED COUMADIN/WARFARIN INR THERAPY RANGESSTANDARD DOSE: 2.0 - 3.0 Includes: PROPHYLAXIS for venous thrombosis, systemic embolization; TREATMENT for venous thrombosis and/or pulmonary embolus.HIGH RISK: Target INR is 2.5-3.5 for patients with mechanical heart valves.CALCIUM, [id number] 05:12:20 Test Item Value Reference Range Interpretation Comments CALCIUM IONIZED (BEAKER) (test 1.10 mmol/L 1.12-1.27 L code = 698) PH, BLOOD (BEAKER) (test code = 7.47 1810) [id number] 08:41:54 [facility] : 1965 Sex: FPROCEDURE: Ultrasound-guided paracentesisProcedural PersonnelPrimary Hand Salter: Scott Alexandre physician(s): Hector Welch-procedure diagnosis: AscitesPost-procedure diagnosis: UnchangedIndication: Ascites with pain [...] Signed By: Deandre Retana05/15/2023 08:43 CDTWorkstation Name: [id number] THORACENTESIS 2023-05-15 08:40:21 [facility] : 1965 Sex: FPROCEDURE: Ultrasound-guided LEFT thoracentesisProcedural PersonnelPrimary Hand Salter: Scott Calle physician(s): PARISH Welchre-procedure diagnosis: Pleural effusionPost-procedure diagnosis: SameIndication: Pleural effusion with compromised respirationAdditional clinical history: NoneComplications: No immediate complications.IMPRESSION:Ultrasound-guided thoracentesis with drainage of 1500 mL of serousfluid.Plan: Resume care by clinical team. PROCEDURE SUMMARY:- Limited thoracic ultrasound- Ultrasound-guided thoracentesis- A dditional procedure(s): NonePROCEDURE DETAILS:Pre-procedureConsent: Informed consent for the procedure including risks, benefitsand alternatives was obtained and time-out was performed prior to theprocedure.Preparation: The site was prepared and draped using maximal sterilebarrier technique including cutaneous antisepsis.Anesthesia/sedationLevel of anesthesia/sedation: No sedationAnesthesia/sedation administered by: Not applicableLimited thoracic ultrasoundLimited thoracic ultrasound was performed using a curved transducer. Asafe window for thoracentesis was identified. Left hemithorax findings: Mod erate pleural effusionRight hemithorax findings: Not investigatedThoracentesisLocal anesthesia was administered. The pleural space was accessed underreal-time ultrasound guidance and fluid return confirmed position. Thefluid was drained. The catheter was removed, and a sterile bandage wasapplied.Catheter placed: 4F YuehPost-drainage hemithorax findings: Not performedAdditional DetailsAdditional description of procedure: NoneEquipment details: NoneSpecimens removed: Pleural fluidEstimated blood loss (mL): Less than 10Standardized report: SIR_Thoracentesis_v3AttestationSigner name: Bekahjewelkrish Sacha attestthat I was present for the entire procedure. I reviewed thestored images and agree with the report as written.Electronically Signed By: Deandre Retana05/15/2023 08:42 CDTWorkstation Name: [id number] METABOLIC PANEL 2023-05-15 05:33:46 Test Item Value [...] not appl icable for dialysis patien ts Hand Salter ID - STANLEY WPROTHROMBIN TIME/[id number] 05:13:59 Test Item Value Reference Range Interpretation Comments PROTIME (BEAKER) 21.1 seconds 11.9-14.2 H (test code = 759) INR (BEAKER) (test 1.95 See_Comment [Automat ed message] code = 370) The system Evtron generated this result transmitted ref erence range: <=5.90. The reference range was not used to int erpret this result as normal/abnormal . RECOMMENDED COUMADIN/WARFARIN INR THERAPY RANGESSTANDARD DOSE: 2.0 - 3.0 Includes: PROPHYLAXIS for venous thrombosis, systemic embolization; TREATMENT for venous thrombosis and/or pulmonary embolus.HIGH RISK: Target INR is 2.5-3.5 for patients with mechanical heart valves.SODIUM, RANDOM [id number] 09:48:43 Test Item Value Reference Range Interpretation Comments SODIUM URINE (BEAKER) (test code = 21 meq/L 243) Reference Range: No NormalsOperator ID - ADMINCHLORIDE, RANDOM [id number] 09:46:07 Test Item Value Reference Range Interpretation [...] 1585) Occasional SOURCE(BEAKER) (test code = 2795) Hand Salter ID - [auto]Hand Salter ID - techHEPATIC FUNCTION [id number] 06:13:36 Test Item Value Reference Range Interpretation [...] Specimen slightly (test code = 347) hemolyzed Hand Salter ID - ADMINSpecimen slightly ictericBASIC METABOLIC [id number] 06:13:35 Test Item Value Reference Range Interpretation [...] not appl icable for dialysis patien ts Hand Salter ID - ADMINSpecimen slightly [id number] 06:13:34 Test Item Value Reference Range Interpretation Comments MAGNESIUM (BEAKER) 2.0 mg/dL 1.6-2.6 Specimen slightly (test code = 627) hemolyzed Hand Salter ID - [id number] 06:13:34 Test Item Value Reference Range Interpretation Comments PHOSPHORUS (BEAKER) 3.7 mg/dL 2.3-4.7 Specimen slightly (test code = 604) hemolyzed Hand Salter ID - ADMINPROTHROMBIN TIME/[id number] 06:03:52 Test Item Value Reference Range Interpretation Comments PROTIME (BEAKER) 19.7 seconds 11.9-14.2 H (test code = 759) INR (BEAKER) (test 1.72 See_Comment [Automat ed message] code = 370) The system Evtron generated this result transmitted ref erence range: [...] = 413) BODY FLUID CELL COUNT WITH [id number] 21:54:34 Test Item Value Reference Range Interpretation Comments APPEARANCE FLUID Turbid Clear A (BEAKER) (test code = 510) COLOR FLUID (BEAKER) Red Colorless, Straw A (test code = 511) RBC FLUID (BEAKER) 98632 /cu mm See_Comment H [Automat ed message] [...] = 2873) BODY FLUID CELL COUNT WITH [id number] 20:50:26 Test Item Value Reference Range Interpretation Comments APPEARANCE FLUID Turbid Clear A (BEAKER) (test code = 510) COLOR FLUID (BEAKER) Red Colorless, Straw A (test code = 511) RBC FLUID (BEAKER) 43809 /cu mm See_Comment H [Automat ed message] [...] 2873) XR CHEST 1 VIEW PORTABLE / [id number] 18:23:54 [facility] : 1965 Sex: [...] Signed By: Gurdeep Pascal05/13/2023 18:25 CDTWorkstation Name: [id number] DEHYDROGENASE (LDH)2023-05-13 15:31:27 Test Item Value Reference Range Interpretation Comments LACTATE DEHYDROGENASE (BEAKER) (test 235 U/L 125-220 H code = 635) Hand Salter ID - ADMINSARS-COV2/INFLUENZA/RSV CT-[id number] 14:50:54 Test Item Value Reference Range Interpretation Comments SARS-COV2/RT-PCR Negative Negative The SARS-Co V-2 target (test code = nucleic acids a re not 7791243) detected in thi s specimen. Negat krupa [...] individuals eleazar pected of COVID-19 by the [facility] [employer]rics ider. INFLUENZA A RT-PCR Negative Negative The Flu A target nucleic (test code = acids are not d etected in 19101016) this specimen. INFLUENZA B RT-PCR Negative Negative The Flu B target nucleic (test code = acids are not d etected in 19101017) this specimen. RSV RT-PCR (test Negative Negative The RSV tar get nucleic code = 3691890) acids are no t detected in this [...] Xpress SARS-CoV-2/Flu/RSV by their healthcareprovider. Results from [facility] Xpert Xpress SARS-CoV-2/Flu/RSV test should be correlated [...] of the Act.Fact Sheet for Healthcare Providers:https ://www.[employer]/Documents/Xpert%20Xpress%20SARS%20CoV-2/Fact%20Sheets/302390 2%39XYWT-VMU-6%20HEALTHCARE%20PROVIDERS%20FACT%20SHEET.pdfFact Sheet for Healthcare Patients:https://www.[employer]/Docum ents/Xpert%20Xpress%20SARS%20Cov-2/Fact%20Sheets/3023801%32BJBI-BOT-6%20PATIENT %20FACT%20SHEET.pdfCT ABDOMEN/PELVIS WITH IV [id number] 13:23:48 [facility] : 1965 Sex: FCT ABDOMEN/PELVIS WITH IV [...] Signed By: Carolyn Block05/13/2023 13:25 CDTWorkstation Name: [id number] CHEST 1 VIEW PORTABLE / [id number] 12:55:58 [facility] : 1965 Sex: FXR [...] Signed By: Brian Gresham05/13/2023 12:58 CDTWorkstation Name: [id number] ACID, VENOUS 2023-05-13 12:55:37 Test Item Value Reference Range Interpretation Comments LACTATE BLOOD VENOUS 1.89 mmol/L 0.50-2.00 Specime n moderately (2) (BEAKER) (test hemolyzed code = 2872) Hand Salter ID - ADMINLACTIC ACID, [id number] 11:54:07 Test Item Value Reference Range Interpretation Comments LACTATE BLOOD VENOUS 2.16 mmol/L 0.50-2.00 H Specime n slightly (2) (BEAKER) (test hemolyzed code = 2872) Hand Salter ID - ADMINHIGH SENSITIVITY TROPONIN [id number] 11:41:40 Test Item Value Reference Range Interpretation Comments HIGH SENSITIVITY 5 pg/ml See_Comment [Automated message] TROPONIN I (test code = The system which 8101331) generated this result transmitted ref erence range: <=17. Th e reference range was not used to interpr et this result as normal/abnormal . Hand Salter ID - ADMINThe FLEET SERVICE CLERK STAT High Sensitivity Troponin-I results should be used in conjunction with other diagnostic information such as ECG, clinical observations and information, and patientsymptoms to aid in the diagnosis of PR. [id number] 11:35:55 Test Item Value Reference Range Interpretation Comments PARTIAL THROMBOPLASTIN TIME 29.6 seconds 22.5-36.0 (BEAKER) (test code = 760) PROTHROMBIN TIME/[id number] 11:35:17 Test Item Value Reference Range Interpretation Comments PROTIME (BEAKER) 19.0 seconds 11.9-14.2 H (test code = 759) INR (BEAKER) (test 1.71 See_Comment [Automat ed message] code = 370) The system whic h generated this result transmitted ref erence range: [...] not appl icable for dialysis patien ts Hand Salter ID - [id number] 11:34:38 Test Item Value Reference Range Interpretation Comments LIPASE (BEAKER) (test code = 749) 50 U/L 8-78 Hand Salter ID - ADMINCBC W/PLT COUNT & AUTO [id number] 11:17:30 Test Item Value Reference Range Interpretation [...] = 2801) BODY FLUID CULTURE + GRAM [id number] 16:37:21 Test Item Value Reference Range Interpretation Comments CULTURE (BEAKER) (test code = 1095) No growth BODY FLUID CULTURE + GRAM [id number] 16:36:21 Test Item Value Reference Range Interpretation Comments CULTURE (BEAKER) (test code = 1095) No growth US [id number] 08:19:44 [facility] : 1965 Sex: FUltrasound guided left thoracentesis.Clinical History: Left pleural effusion.Modality: Ultrasound.Sedation: None. Cloth Washer Back Tender: Lupe Corralistant: None. Estimated Blood Loss: 1ccSpecimen: 1200 cc [...] Signed By: Galen Lovett05/11/2023 08:21 CDTWorkstation Name: [id number] METABOLIC [id number] 03:59:37 Test Item Value Reference Range Interpretation [...] (test code = 347) EGFR (BEAKER) 61 Interpretati on of eGFR (test code = [...] not appl icable for dialysis patien ts Hand Salter ID - [id number] 03:50:56 Test Item Value Reference Range Interpretation Comments MAGNESIUM (BEAKER) (test code = 2.1 mg/dL 1.6-2.6 627) Hand Salter ID - ADMINPROTHROMBIN TIME/[id number] 03:46:55 Test Item Value Reference Range Interpretation Comments PROTIME (BEAKER) 22.2 seconds 11.9-14.2 H (test code = 759) INR (BEAKER) (test 2.00 See_Comment [Automat ed message] code = 370) The system Evtron generated this result transmitted ref erence range: <=5.90. The reference range was not used to int erpret this result as normal/abnormal . RECOMMENDED COUMADIN/WARFARIN INR THERAPY RANGESSTANDARD DOSE: 2.0 - 3.0 Includes: PROPHYLAXIS for venous thrombosis, systemic embolization; TREATMENT for venous thrombosis and/or pulmonary embolus.HIGH RISK: Target INR is 2.5-3.5 for patients with mechanical heart valves.CBC W/PLT COUNT & AUTO [id number] 03:34:57 Test Item Value Reference Range Interpretation [...] 2801) XR CHEST 1 VIEW PORTABLE / [id number] 17:21:29 [facility] : 1965 Sex: FAP portable [...] Signed By: Gurdeep Pascal05/10/2023 17:23 CDTWorkstation Name: [id number] [id number] 14:43:50 [facility]ENTER[facility]: PAT[facility]ENCE PAREDES : 1965 Sex: F ADDENDUM #1 Ultrasound guided paracentesis.Clinical History: Ascites.Sedation: None. Cloth Washer Back Tender: Lupe Youngt: None. Estimated Blood Loss: < [...] anesthesia was achieved with 2% lidocaine,a 5 Pal[place] one-step catheter was advanced into the peritoneal cavityunder ultrasound guidance. After completion of drainage, the catheterwas removed. There was no evidence of complication. ORIGINAL REPORT Ultrasound guided left thoracentesis.Clinical History: Left pleural effusion.Modality: Ultrasound.Sedation: None. Cloth Washer Back Tender: Lupe Youngt: None. Estimated Blood Loss: 1ccSpecimen: 1200 cc of cloudy lupe fluid. Technique: Informed consent was obtained. The risks of pain, bleeding,infection, lungcollapse/pneumothorax, injury to adjacent structures,and adverse medication reactions were discussedwith the patient. Thepatient's left hemithorax was scanned from the back, with the patient rowena sitting position. After the largest fluid pocket area was marked, theskin was prepped and draped in the usual sterile manner. The area wasanesthetized with 2% lidocaine, a 4 F valved one-step catheter wasadvanced into the pleural space under ultrasound guidance. Aftercompletion of drainage, the catheter wasremoved. There was no evidenceof immediate complication. Post procedure chest x-ray demonstrated nopn eumothorax. IMPRESSION:Impression:Successful ultrasound guided paracentesis.Electronically Signed By: Deandre RetanaImpression:Successful and uncomplicated ultrasound guided left thoracentesis.Electronically Signed By: Deandre Retana05/10/2023 14:45 CDTWorkstation Name: [id number] FLUID CELL COUNT WITH [id number] 13:31:41 Test Item Value Reference Range Interpretation Comments APPEARANCE FLUID Purulent Clear A (BEAKER) (test code = 510) COLOR FLUID (BEAKER) [place] Colorless, Straw A (test code = 511) RBC FLUID (BEAKER) 51608 /cu mm See_Comment H [Automat ed message] [...] (test code The syst em which = 1541) generated this result transmit joanna reference range [...] FLUID Sterile Vial (BEAKER) (test code = 0313) BODY FLUID CELL COUNT WITH [id number] 13:29:43 Test Item Value Reference Range Interpretation Comments APPEARANCE FLUID Cloudy Clear A (BEAKER) (test code = 510) COLOR FLUID (BEAKER) [place] Colorless, Straw A (test code = 511) RBC FLUID (BEAKER) 67204 /cu mm See_Comment H [Automat ed message] [...] Sterile Vial (BEAKER) (test code = 2873) [id number] 08:44:37 [facility] : 1965 Sex: FUltrasound guided left thoracentesis.Clinical History: Left pleural effusion.Modality: Ultrasound.Sedation: None. Cloth Washer Back Tender: Lupe VERONICACAssistant: None. Estimated Blood Loss: 1ccSpecimen: 1900 cc [...] Signed By: Mikael Darnell05/10/2023 08:46 CDTWorkstation Name: [id number] CHEST FOR PULMONARY [id number] 06:33:25 [facility] : 1965 Sex: FTECHNIQUE: CTA [...] to the prior examination.Electronically Signed By: Adilia Meek/ 06:35 CDTWorkstation Name: [id number] GAS, VENOUS 2023-05-10 06:19:52 Test Item Value [...] VENOUS (BEAKER) (test code = 24 mmol/L - 705) BASE EXCESS VENOUS (BEAKER) (test -0.1 mmol/L -2.0-3.0 code = 704) PATIENT TEMPERATURE (BEAKER) 37.0 (test code = 1818) FIO2 (BEAKER) (test code = 1819) 21.0 XR CHEST 2 [id number] 05:28:50 [facility] : 1965 Sex: FEXAM/TECHNIQUE: Single view frontal radiograph of the chest.INDICATION: SHORTNESS OF BREATHABDOMINAL PAINPOST-OP PROBLEMCOMPARISON: 05/09/23FINDINGS: Devices/Objects: None.Lungs: Small left pleural effusion.No visible pneumothorax.Heart/Mediastinum: No cardiomegaly. No interstitial thickening.Osseous: No acute osseous process. No suspicious osseous lesion.Upper abdomen: Unremarkable.IMPRESSION:Small left pleural effusion. No visible pneumothorax.Electronically Signed By: Umer Barahona05/10/2023 05:31 CDT Workstation Name: [id number] SENSITIVITY TROPONIN [id number] 04:15:18 Test Item Value Reference Range Interpretation Comments HIGH SENSITIVITY 36 pg/ml See_Comment H [Automated message] TROPONIN I (test code = The system which 5469007) generated this result transmitted ref erence range: <=17. Th e reference range was not used to int erpret this result as normal/abnormal . Hand Salter ID - ADMINThe FLEET SERVICE CLERK STAT High Sensitivity Troponin-I results should be used in conjunction with other diagnostic information such as ECG, clinical observations and information, and patientsymptoms to aid in the diagnosis of PR. SARS-COV2/INFLUENZA/RSV [id number] 04:12:44 Test Item Value Reference Range Interpretation Comments SARS-COV2/RT-PCR Negative Negative The SARS-Co V-2 target (test code = nucleic acids a re not 5015805) detected in thi s specimen. Negat krupa [...] individuals eleazar pected of COVID-19 by the [facility]. INFLUENZA A RT-PCR Negative Negative The Flu A target nucleic (test code = acids are not d etected in 9091561) this specimen. INFLUENZA B RT-PCR Negative Negative The Flu B target nucleic (test code = acids are not d etected in 9854462) this specimen. RSV RT-PCR (test Negative Negative The RSV tar get nucleic code = 5282828) acids are no t detected in this [...] Xpress SARS-CoV-2/Flu/RSV by their healthcareprovider. Results from [facility] Xpert Xpress SARS-CoV-2/Flu/RSV test should be correlated [...] of the Act.Fact Sheet for Healthcare Providers:https ://www.[employer]/Documents/Xpert%20Xpress%20SARS%20CoV-2/Fact%20Sheets/302-390 2%39YTES-VPJ-0%20HEALTHCARE%20PROVIDERS%20FACT%20SHEET.pdfFact Sheet for Healthcare Patients:https://www.[employer]/Docum ents/Xpert%20Xpress%20SARS%20Cov-2/Fact%20Sheets/302-3801%97PPSE-EDH-7%20PATIENT %20FACT%20SHEET.fwfD-[id number] 04:07:35 Test Item Value Reference Range Interpretation [...] thrombosis is within 95-100% range.HIGH SENSITIVITY TROPONIN [id number] 02:57:41 Test Item Value Reference Range Interpretation Comments HIGH SENSITIVITY 41 pg/ml See_Comment H [Automated message] TROPONIN I (test code = The system which [id number]) generated this result transmitted ref erence range: <=17. Th e reference range was not used to int erpret this result as normal/abnormal . Hand Salter ID - ADMINThe FLEET SERVICE CLERK STAT High Sensitivity Troponin-I results should be used in conjunction with other diagnostic information such as ECG, clinical observations and information, and patientsymptoms to aid in the diagnosis of PR. B-TYPE NATRIURETIC FACTOR (BNP)2023-05-10 02:46:59 Test Item Value Reference Range Interpretation Comments B-TYPE NATRIURETIC PEPTIDE (BEAKER) 70 pg/mL 0-100 (test code = 700) Hand Salter ID - AZDTOLJEWLJ4896-04-83 02:41:34 Test Item Value Reference Range Interpretation Comments LIPASE (BEAKER) (test code = 749) 73 U/L 8-78 Hand Salter ID - ADMINSpecimen slightly ictericBASIC METABOLIC [id number] 02:41:29 Test Item Value Reference Range Interpretation [...] not appl icable for dialysis patien ts Hand Salter ID - ADMINSpecimen slightly ictericPT/[id number] 02:34:11 Test Item Value Reference Range Interpretation Comments PROTIME (BEAKER) (test 20.1 seconds 11.9-14.2 H code = 759) INR (BEAKER) (test 1.83 See_Comment [Automat ed code = 370) message] The [employer] stem which generated this result transmitted reference [...] mechanical heart valves.CBC W/PLT COUNT & AUTO [id number] 02:26:29 Test Item Value Reference Range Interpretation [...] PERCENT (BEAKER) (test code = 2801) URINALYSIS [id number] 02:25:17 Test Item Value Reference Range Interpretation Comments RBC UA (BEAKER) (test code = 519) 15 /HPF WBC UA (BEAKER) (test code = 520) 6 /HPF BACTERIA (BEAKER) (test code = Many 517) MUCUS (BEAKER) (test code = 1574) Occasional SQUAMOUS EPITHELIAL (BEAKER) (test 1 /HPF code = 516) Hand Salter ID - techURINALYSIS WITH MICROSCOPIC IF [id number] 01:56:33 Test Item Value Reference Range Interpretation [...] = 463) SOURCE(BEAKER) (test code = 2795) Hand Salter ID - [auto][id number]-[id number] 13:34:41 Test Item Value Reference Range Interpretation Comments ACTIVATED CLOTTING TIME 149 sec : 74 -137 seconds, (BEAKER) (test code = Baseli ne: TESTED AT 441) [facility] [address] [place], [address]: Hand Salter/Techni shavon ID = [id number] for CO NROD ELFEGO (V)[place] BODY FLUID CELL COUNT WITH [id number] 12:47:39 Test Item Value Reference Range Interpretation Comments APPEARANCE FLUID Cloudy Clear A (BEAKER) (test code = 510) COLOR FLUID (BEAKER) Other Colorless, Straw A phuc mon (test code = 511) RBC FLUID (BEAKER) 92756 /cu mm See_Comment H [Automat ed message] [...] (test code The syst em which = 1694) generated this result transmit joanna reference range [...] 2873) XR CHEST 1 VIEW PORTABLE / [id number] 10:01:38 [facility] 1965 Sex: FEXAMINATION: [...] pneumonia or airspace edema.Electronically Signed By: Alexandro Alberto8 10:03 CDTWorkstation Name: [id number] METABOLIC [id number] 09:06:30 Test Item Value Reference Range Interpretation [...] not appl icable for dialysis patien ts Hand Salter ID - MARCOPROTHROMBIN TIME/FLX0230-02-67 08:31:43 Test Item Value Reference Range Interpretation Comments PROTIME (BEAKER) 18.8 seconds 11.9-14.2 H (test code = 759) INR (BEAKER) (test 1.62 See_Comment [Automat ed message] code = 370) The system [employer] generated this result transmitted ref erence range: [...] WBC 0-0 (test code = 413) [place] [id number] 16:48:00 [facility] CENTERName: MARIAA PAREDESJassi CURTIS : 1965 Sex: FUltrasound guided paracentesis.Clinical History: Ascites.Sedation: None. Cloth Washer Back Tender: Hannah Lylest: None. Estimated Blood Loss: < [...] anesthesia was achieved with 2% lidocaine,a 5 Palauan one-step catheter was advanced into the peritoneal cavityunder ultrasound guidance. After completion of drainage, the catheterwas removed. There was no evidence of complication.IMPRESSION:Impression:Successful ultrasound guided paracentesis.Electronically Signed By: Dipak Szymanski05/06/2023 16:50 CDTWorkstation Name: [id number] [id number] 16:47:55 [facility] : 1965 Sex: FUltrasound guided left thoracentesis.Clinical History: Left pleural effusion.Modality: Ultrasound.Sedation: None. Cloth Washer Back Tender: Hannah yLlest: None. Estimated Blood Loss: 1ccSpecimen: 2400 cc [...] area wasanesthetized with 2% lidocaine, a 4 Palauan one-step catheter wasadvanced into the pleural space under ultrasound guidance. Aftercompletion of drainage, the catheter was removed. There was no evidenceof immediate complication. Post procedure chest x-ray demonstrated nopneumothorax. IMPRESSION:Impression:Successful and uncomplicated ultrasound guided left t horacentesis.Electronically Signed By: Dipak Szymanski05/06/2023 16:49 CDTWorkstation Name: [id number] W/ [id number] 16:11:06 Test Item Value Reference Range Interpretation [...] SOURCE(BEAKER) (test code Urine, Clean Catch = 2425) Hand Salter ID - [auto]Hand Salter ID - techBODY FLUID CELL COUNT WITH DIFFERENTIAL 2023-05-06 15:51:55 Test Item Value Reference Range Interpretation Comments APPEARANCE FLUID Cloudy Clear A (BEAKER) (test code = 510) COLOR FLUID (BEAKER) [facility] Colorless, Straw A (test code = 511) RBC FLUID (BEAKER) 61234 /cu mm See_Comment H [Automat ed message] [...] = 2873) BODY FLUID CELL COUNT WITH [id number] 15:31:24 Test Item Value Reference Range Interpretation Comments APPEARANCE FLUID Cloudy Clear A (BEAKER) (test code = 510) COLOR FLUID (BEAKER) [facility] Colorless, Straw A (test code = 511) RBC FLUID (BEAKER) 11924 /cu mm See_Comment H [Automat ed message] [...] 2873) LIPEMICXR CHEST 1 VIEW PORTABLE / [id number] 14:46:25 [facility] : 1965 Sex: FExam: [...] Signed By: Mikael Darnell05/06/2023 14:48 CDTWorkstation Name: [id number]-[id number] 11:44:29 Test Item Value Reference Range Interpretation Comments POC-CREATININ 1.3 mg/dL 0.6-1.3 : TESTED AT [facility] [address]) [facility], [address]: (test code = Hand Salter/Techni shavon ID = [id number]) [id number] for Host Cris Armendariz POC-EGFR 47 Interpretation of eGFR ([facility]) mL/min/1.73M2 Values Stage D escription (test [...] is not appl icable for dialysis patien [facility] [id number] 17:20:[address] [facility] 1965 Sex: FUltrasound guided left-sided thoracentesis.Clinical History: Left pleural effusion.Modality: Ultrasound.Sedation: None. Cloth Washer Back Tender: Ellis Lylesistant: None. Estimated Blood Loss: 1ccSpecimen: [...] area wasanesthetized with 2% lidocaine, a 4 Palauan one-step catheter wasadvanced into the pleural space under ultrasound guidance. Aftercompletion of drainage,the catheter was removed. There was no evidenceof immediate complication. Post procedure chest x-raydemonstrated nopneumothorax. IMPRESSION:Impression:Successful and uncomplicated ultrasound guided left-sided thoracentesis.Electronically Signed By: Chano Enriquez05/02/2023 17:22 CDTWorkstation Name: [id number] FLUID CELL COUNT WITH [id number] 11:52:49 Test Item Value Reference Range Interpretation Comments APPEARANCE FLUID Bloody Clear A (BEAKER) (test code = 510) COLOR FLUID [place] Colorless, Straw A (BEAKER) (test code = 511) RBC FLUID (BEAKER) 14043 /cu mm See_Comment H [Automat ed (test code = 513) message] T he system which generated this result transmit joanna reference range : <=1. The refere nce range was not u sed to interpret th is result as normal/abnormal . TOTAL NUCLEATED 801 /cu mm See_Comment H [Automated CELL COUNT (BEAKER) message] The (test code = 1442) system wh ich generated this result transmit joanna reference range : <=5. The refere nce range was not u sed to interpret th is result as normal/abnormal . ADJUSTED WBC FLUID 801 /cu mm See_Comment H [Automat ed (BEAKER) (test code message] The = 1670) system which generated this result transmit joanna reference range : <=5. The refere nce range was not u sed to interpret th is result as normal/abnormal . LINING 0 /cu mm See_Comment [Automated CELLS/OTHERS, message] The CALCULATED (BEAKER) system w hich (test code = 1590) generated this result [...] 2873) XR CHEST 1 VIEW PORTABLE / [id number] 11:00:46 [facility] : 1965 Sex: FEXAMINATION: [...] thoracentesis. No postprocedure pneumothorax.Electronically Signed By: Ken Tmwtzdn0805/02/2023 11:02 CDTWorkstation Name: [id number] [id number] 09:23:26 [facility] : 1965 Sex: FUltrasound guided left-sided thoracentesis.Clinical History: Left pleural effusion.Modality: Ultrasound.Sedation: None. Cloth Washer Back Tender: Ellis Lylesistant: None. Estimated Blood Loss: 1ccSpecimen: [...] area wasanesthetized with 2% lidocaine, a 4 Palauan one-step catheter wasadvanced into the pleural space under ultrasound guidance. Aftercompletion of drainage, the catheter was removed. There was no evidenceof immediate complication. Post procedure chest x-ray demonstrated nopneumothorax. IMPRESSION:Impression:Successful and uncomplicated ultrasound guidedleft-sided thoracentesis.Electronically Signed By: Chano Enriquez05/02/2023 09:25 CDTWorkstation Name: [id number] FLUID CELL COUNT WITH [id number] 14:29:09 Test Item Value Reference Range Interpretation Comments APPEARANCE FLUID Bloody Clear A (BEAKER) (test code = 510) COLOR FLUID [place] Colorless, Straw A (BEAKER) (test code = 511) RBC FLUID (BEAKER) 69637 /cu mm See_Comment H [Automat ed (test code = 513) message] T he system which generated this result transmit joanna reference range : <=1. The refere nce range was not u sed to interpret th is result as normal/abnormal . TOTAL NUCLEATED 658 /cu mm See_Comment H [Automated CELL COUNT (BEAKER) message] The (test code = 1442) system [facility] generated this result transmit joanna reference range : <=5. The refere nce range was not u sed to interpret th is result as normal/abnormal . ADJUSTED WBC FLUID 658 /cu mm See_Comment H [Automat ed (BEAKER) (test code message] The = 1695) system which generated this result transmit joanna reference range : <=5. The refere nce range was not u sed to interpret th is result as normal/abnormal . LINING 0 /cu mm See_Comment [Automated CELLS/OTHERS, message] The CALCULATED (BEAKER) system w [facility] (test code = 1590) generated this result [...] Container FLUID (BEAKER) (test code = 2873) [id number] 13:34:38 [facility] : 1965 Sex: FUltrasound guided left thoracentesis.Clinical History: Left pleural effusion.Modality: Ultrasound.Sedation: None. Cloth Washer Back Tender: Danuta Corralistant: None. Estimated Blood Loss: 1ccSpecimen: 2450 cc [...] Signed By: Lee Diaz04/29/2023 13:36 CDTWorkstation Name: [id number] CHEST 1 VIEW PORTABLE / [id number] 12:16:25[facility] : 1965 Sex: FCLINICAL HISTORY: s/p left thoraTECHNIQUE: 1 view of the chestCOMPARISON: 04/25/2023IMPRESSION:No pneumothorax. There are no focal infiltrates or pleural effusions.The cardiomediastinal silhouette is within normal limits for size. Thevisualized bones are intact.Electronically Signed By: Antwan Flor04/29/2023 12:18 CDTWorkstation Name: [id number] MYOCARDIAL PERFUSION SPECT, [id number] 12:04:56[facility] : 1965 Sex: FPROCEDURE: MYOCARDIAL PERFUSION SPECT IMAGING (2-Day Stress/Rest)CPT CODE: 00587DVPKTOQYIW: Preoperative risk stratification prior to livertransplantationCARDIOVASCULAR PROFILE: CAD History: None Symptoms: Dyspnea Risk Factors: Hypertension BMI: 35.4 Medications: Spironolactone, torsemideSTRESS PROTOCOL: Pharmacologic stress was achieved with a 10-second intravenousinfusion of regadenoson 0.4 mg. The radiopharmaceutical was puidttjuouto07 seconds after the start of the regadenoson [...] Signed By: Marcos Muller04/27/2023 12:07 CDTWorkstation Name: [id number] [id number] 16:01:20 [facility] : 1965 Sex: FUltrasound guided left thoracentesis.Clinical History: Left pleural effusion.Modality: Ultrasound.Sedation: None. Cloth Washer Back Tender: Danuta Corralistant: None. Estimated Blood Loss: 1ccSpecimen: [...] Signed By: Ken Sauer04/25/2023 16:03 CDTWorkstation Name: [id number] FLUID CELL COUNT WITH [id number] 14:01:40 Test Item Value Reference Range Interpretation Comments APPEARANCE FLUID Turbid Clear A (BEAKER) (test code = 510) COLOR FLUID (BEAKER) Brown Colorless, Straw A (test code = 511) RBC FLUID (BEAKER) 97859 /cu mm See_Comment H [Automat ed message] [...] 2873) XR CHEST 1 VIEW PORTABLE / [id number] 11:23:22 [facility]ENTER[facility] PATIENCE PAREDES : 1965 Sex: FCLINICAL HISTORY: s/p left thora TECHNIQUE: 1 view of the chest.COMPARISON: 04/22/2023IMPRESSION:No pneumothorax. No infiltrates or effusions. No cardiomegaly.Electronically Signed By: Antwan Flor1:25 CDTWorkstation Name: [id number] FLUID CELL COUNT WITH [id number] 17:21:04 Test Item Value Reference Range Interpretation Comments APPEARANCE FLUID Cloudy Clear A (BEAKER) (test code = 510) COLOR FLUID (BEAKER) [place] Colorless, Straw A (test code = 511) [...] (test The sys tem which code = 1446) generated this result transmitted ref erence range: <=5. The reference range was not used to int erpret this result as normal/abnormal . ADJUSTED WBC FLUID 52 /cu mm See_Comment H [Automat ed message] (BEAKER) (test code = The sy stem which 3069) generated this result transmitted ref erence range: [...] (test code = 2873) 1:20 manual dilutionUS [id number] 16:50:37 [facility] : 1965 Sex: FUltrasound guided left sided thoracentesis.Clinical History: Left pleural effusion.Modality: Ultrasound.Sedation: None. Cloth Washer Back Tender: Ellis Munozistant: None. Estimated Blood Loss: 1ccSpecimen: 2450 cc [...] Signed By: Deandre Retana04/22/2023 16:52 CDTWorkstation Name: [id number] [id number] 16:50:37 [facility] : 1965 Sex: FUltrasound guided paracentesis.Clinical History: Ascites.Sedation: None. Cloth Washer Back Tender: Hannah Munozt: None. Estimated Blood Loss: < [...] color Doppler to exclude presence of blood vess elstraversing the area, the skin was prepped and draped in the usualsterile manner. After local anesthesia was achieved with 2% lidocaine,a 5 Palauan one- step catheter was advanced into the peritoneal cavityunder ultrasound guidance. After completion of drainage, the catheterwas removed. There was no evidence of complication.IMPRESSION:Impression:Successful ultrasound guided paracentesis.Electronically Signed By: Deandre Retana04/22/2023 16:52 CDTWorkstation Name: [id number] CHEST 1 VIEW PORTABLE / [id number] 15:06:10 [facility] : 1965 Sex: FINDICATION: s/p left thoracentesisCOMPARISON: 04/18/2023TECHNIQUE: Single frontal view of the chest.FINDINGS: Lines, tubes, and devices: None.Lungs and pleura: Clear lungs. No pneumothorax.Heart and mediastinum: Normal heart size. Unremarkable mediastinalcontours.Osseous structures: No acute abnormality. Mild spondylosis and facetarthropathy are present within the spine.Other: None.IMPRESSION:No pneumothorax identified.Electronically Signed By: Brian Gresham04/22/2023 15:08 CDTWorkstation Name: [id number] FLUID CELL COUNT WITH [id number] 14:11:50 Test Item Value Reference Range Interpretation Comments APPEARANCE FLUID Turbid Clear A (BEAKER) (test code = 510) COLOR FLUID (BEAKER) Red Colorless, Straw A (test code = 511) RBC FLUID (BEAKER) 07924 /cu mm See_Comment H [Automat ed message] [...] (test code The syst em which = 6111) generated this result transmit joanna reference range [...] EDTA Tube (BEAKER) (test code = 2873) SWYE-[id number] 12:02:19 Test Item Value Reference Range Interpretation Comments POC-CREATININ 1.4 mg/dL 0.6-1.3 H : TESTED AT [facility] [address] (BEAKER) [place] [place], [address]: (test code = Hand Salter/Techni shavon ID = [id number]) [id number] for Fall er, Christen POC-EGFR 43 Interpretation of eGFR (BEAKER) mL/min/1.73M2 [...] is not appl icable for dialysis patien [facility] [id number] 17:12:11 [facility] : 1965 Sex: FUltrasound guided left-sided thoracentesis.Clinical History: Left pleural effusion.Modality: Ultrasound.Sedation: None. Cloth Washer Back Tender: Hannah Lylest: None. Estimated Blood Loss: 1ccSpecimen: 2400 cc [...] area wasanesthetized with 2% lidocaine, a 4 Palauan one-step catheter wasadvanced into the pleural space under ultrasound guidance. Aftercompletion of drainage, the catheter was removed. There was no evidenceof immediate complication. Post procedure chest x-ray demonstrated nopneumothorax. IMPRESSION:Impression:Successful and uncomplicated ultrasound guided left sided thoracentesis.Electronically Signed By: Mikael Darnell04/18/2023 17:14 CDTWorkstation Name: [id number] FUNCTION [id number] 17:07:40 Test Item Value Reference Range Interpretation [...] Specimen slightly (test code = 347) hemolyzed Hand Salter ID - AAHAMIDSpecimen slightly ictericXR CHEST 1 VIEW PORTABLE / BEDSIDE 2023-04-18 16:09:37 [facility] : 1965 Sex: FTECHNIQUE: Frontal [...] Signed By: Adilia Polanco04/18/2023 16:11 CDTWorkstation Name: [id number] CHEST 1 VIEW PORTABLE / [id number] 10:43:57[facility] : 1965 Sex: FXR [...] Signed By: Brian Gresham04/18/2023 10:46 CDTWorkstation Name: [id number] METABOLIC [id number] 10:31:06 Test Item Value Reference Range Interpretation [...] not appl icable for dialysis patien ts Hand Salter ID - AAHAMIDPROTHROMBIN TIME/[id number] 10:26:19 Test Item Value Reference Range Interpretation Comments PROTIME (BEAKER) 18.8 seconds 11.9-14.2 H (test code = 759) INR (BEAKER) (test 1.68 See_Comment [Automat ed message] code = 370) The system [employer] generated this result transmitted ref erence range: <=5.90. The reference range was not used to int erpret this result as normal/abnormal . RECOMMENDED COUMADIN/WARFARIN INR THERAPY RANGESSTANDARD DOSE: 2.0 - 3.0 Includes: PROPHYLAXIS for venous thrombosis, systemic embolization; TREATMENT for venous thrombosis and/or pulmonary embolus.HIGH RISK: Target INR is 2.5-3.5 for patients with mechanical heart valves.CBC W/PLT COUNT & AUTO [id number] 10:19:31 Test Item Value Reference Range Interpretation [...] 0.00-1.00 PERCENT (BEAKER) (test code = 2801) [id number] 17:38:57 Test Item Value Reference Range Interpretation [...] not appl icable for dialysis patien ts Hand Salter ID - ADMINSARS-COV2/RT-PCR ([facility])2023-04-16 16:56:23 Test Item Value Reference Range Interpretation Comments SARS-COV2/RT-PCR Negative Negative The SARS-Co V-2 target (test code = nucleic acids a re not 1248271) detected in thi s specimen. Negative result [...] revoked sooner. Fact Sheet for Healthcare Providers: https://www.[employer]/Documents/Xpert%20Xpress%20SARS%20CoV-2/Fact%20Sheets/3023802%94ZTKB-XAJ-9%20 HEALTHCARE%20PROVIDERS%20FACT%20SHEET.pdf Fact Sheet for Healthcare Patients: https://www.[employer]/Documents/Xpert%20Xp ress%20SARS%20CoV-2/Fact%20Sheets/3023801%69MXQU-WGZ-9%20PATIENT%20FACT%20SHEET .pdfCOMPREHENSIVE METABOLIC [id number] 15:37:16 Test Item Value Reference Range Interpretation [...] rted eGFR is based on the CKD-EPI 2021 equation t hat does not use a race coefficientEsti mated GFR is not as accur ate as Creatinine Carol rockwell in predicting glom erular filtration rate . Estimated GFR is not appl icable for dialysis patien ts Hand Salter ID - ADMINLACTIC ACID, [id number] 15:31:59 Test Item Value Reference Range Interpretation Comments LACTATE BLOOD VENOUS 1.53 mmol/L 0.50-2.00 Specime n moderately (2) (BEAKER) (test hemolyzed code = 3712) Hand Salter ID - ADMINCOMPREHENSIVE METABOLIC [id number] 14:06:53 Test Item Value Reference Range Interpretation [...] not appl icable for dialysis patien ts Hand Salter ID - ADMINHIGH SENSITIVITY TROPONIN [id number] 14:02:29 Test Item Value Reference Range Interpretation Comments HIGH SENSITIVITY < pg/ml See_Comment [Automated message] TROPONIN I (test code = The system which [id number]) generated this result transmitted ref erence range: <=17. Th e reference range was not used to interpr et this result as normal/abnormal . Hand Salter ID - ADMINThe FLEET SERVICE CLERK STAT High Sensitivity Troponin-I results should be used in conjunction with other diagnostic information such as ECG, clinical observations and information, and patientsymptoms to aid in the diagnosis of PR. [id number] 13:56:30 Test Item Value Reference Range Interpretation Comments MAGNESIUM (BEAKER) 2.0 mg/dL 1.6-2.6 Specimen markedly (test code = 627) hemolyzed Hand Salter ID - ADMINCREATINE KINASE (CK)2023-04-16 13:56:30 Test Item Value Reference Range Interpretation Comments CREATINE KINASE TOTAL (BEAKER) (test 162 U/L 29-200 code = 380) Hand Salter ID - ADMINPT/UANX9462-72-22 13:54:09 Test Item Value Reference Range Interpretation [...] for patients with mechanical heart valves.BLOOD GAS, [id number] 13:52:31 Test Item Value Reference Range Interpretation [...] (test code = 1819) 21.0 LACTIC ACID, [id number] 13:49:46 Test Item Value Reference Range Interpretation Comments LACTATE BLOOD VENOUS 2.67 mmol/L 0.50-2.00 H Specime n markedly (2) (BEAKER) (test hemolyzed code = 2872) Hand Salter ID - ADMINCBC W/PLT COUNT & AUTO [id number] 13:41:46 Test Item Value Reference Range Interpretation [...] (test code = 2801) XR CHEST 2 [id number] 13:11:49 [facility] : 1965 Sex: FHISTORY: Left pleural effusion, shortness of breathCOMPARISON: 04/15/2023FINDINGS: Small left pleural effusion. No pneumothorax. No right pleuraleffusion. Lungs clear.The heart shadow is normal in size. The thoracic aorta is mildlytortuous.Electronically Signed By: Dipak White04/16/2023 13:13 CDTWorkstation Name: [id number] FLUID CELL COUNT WITH [id number] 14:20:03 Test Item Value Reference Range Interpretation Comments APPEARANCE FLUID Cloudy Clear A (BEAKER) (test code = 510) COLOR FLUID (BEAKER) [place] Colorless, Straw A (test code = 511) RBC FLUID (BEAKER) 09524 /cu mm See_Comment H [Automat ed message] [...] 2873) XR CHEST 1 VIEW PORTABLE / [id number] 12:32:14 [facility] : 1965 Sex: FChest one view.Clinical history: s/p thoraComparison: April 11iscussion: A frontal chest is provided.Cardiomediastinal contours are unchanged. Mild pleural parenchymal opacity at the left lower thoraxis unchanged.There is no pneumothorax. Right lung is clear.No acute bony abnormality.Electronically S igned By: Manish [facility]04/15/2023 12:34 CDTWorkstation Name: [id number] FLUORO NON- SPECIFIC UP TO 1 [id number] 15:46:14 [facility] : 1965 Sex: FThisis a non- reportable study with no Radiologist dictation. Please refer to your PACS to review images,or Doc Flowsheets for documentation on studies without images. [id number] 17:36:47 [facility] : 1965 Sex: FUltrasound guided left thoracentesis.Clinical History: Left pleural effusion.Modality: Ultrasound.Sedation: None. Cloth Washer Back Tender: Ellis Lylesistant: None. Estimated Blood Loss: 1ccSpecimen: [...] Signed By: Dipak Szymanski04/11/2023 17:38 CDTWorkstation Name: [id number] FLUID CELL COUNT WITH [id number] 14:13:51 Test Item Value Reference Range Interpretation Comments APPEARANCE FLUID (BEAKER) (test Turbid Clear A code = 510) COLOR FLUID (BEAKER) (test code Red Colorless, Straw A = 511) RBC FLUID (BEAKER) (test code = 65448 /cu mm <=1 H 513) TOTAL NUCLEATED [...] 2873) XR CHEST 1 VIEW PORTABLE / [id number] 13:39:13 [facility] : 1965 Sex: FCLINICAL HISTORY: s/p thoracentesisTECHNIQUE: 1 view of the chestCOMPARISON: 04/08/2023IMPRESSION:No pneumothorax. Trace left pleural effusion again seen. No infiltrates.No cardiomegaly.Electronically SignedBy: Antwan Flor04/11/2023 13:41 CDTWorkstation Name: [id number] DEHYDROGENASE (LDH), BODY FLUID 2023-04-09 16:42:15 Test [...] recovery and/or detection times of some organisms.BLOOD [id number] 13:00:23 Test Item Value Reference Range Interpretation Comments CULTURE (BEAKER) (test No growth in 5 days code = 1095) The specimen volume collected for this blood culture was below the optimum (10 mL per bottle or 20 mL total). Use of lower volumes may adversely affect recovery and/or detection times of some organisms.BODY FLUID CELL COUNT WITH [id number] 19:24:03 Test Item Value Reference Range Interpretation Comments APPEARANCE FLUID (BEAKER) Slightly Bloody Clear A (test code = 510) COLOR FLUID (BEAKER) (test Straw Colorless, Straw code = 511) RBC FLUID (BEAKER) (test 51079 /cu mm <=1 H code = 513) [...] Vial (BEAKER) (test code = 2873) US [id number] 16:23:34 [facility] : 1965 Sex: FUltrasound guided left thoracentesis.Clinical History: Left pleural effusion.Modality: Ultrasound.Sedation: None. Cloth Washer Back Tender: JEREMÍAS LylesCAssistant: None. Estimated Blood Loss: 1ccSpecimen: 2400 cc [...] Signed By: Deandre Retana04/08/2023 16:25 CDTWorkstation Name: [id number] CHEST 1 VIEW PORTABLE / [id number] 15:30:23 [facility] : 1965 Sex: FTECHNIQUE: Frontal view of the chest.INDICATION: s/p thoracentesis.COMPARISON: 04/04/2023.FINDINGS:LINES/TUBES: None.HEART AND MEDIASTINUM: Cardiomediastinal contour is stable. LUNGS: Mild left basilar atelectatic change. No consolidation orpulmonary edema.PLEURA: Small left pleural effusion. No pneumothorax.SOFT TISSUES AND BONES: Unremarkable.IMPRESSION:Small left pleural effusion with left basilar atelectatic change. Nopneumothorax.Electronically Signed By: Adilia Polanco04/08/2023 15:32 CDTWorkstation Name: [id number] CULTURE + SMEAR 2023-04-06 08:24:23 Test Item Value Reference Range Interpretation Comments CULTURE (BEAKER) (test No fungus isolated in code = 1095) 28 days FUNGUS SMEAR (BEAKER) No fungi seen (test code = 1406) CT ABDOMEN/PELVIS WITHOUT IV [id number] 16:41:18 [facility] : 1965 Sex: FABDOMINAL AND PELVIS CT DATED 3COMPARISON: December 30LINICAL INFORMATION: Epigastric painTECHNIQUE: Axial images [...] Signed By: Erika Kan04/04/2023 16:43 CDTWorkstation Name: [id number] [id number] 14:20:01 [facility] : 1965 Sex: FUltrasound guided left thoracentesis.Clinical History: Left pleural effusion.Modality: Ultrasound.Sedation: None. Cloth Washer Back Tender: Danuta Corralistant: None. Estimated Blood Loss: 1ccSpecimen: [...] Signed By: Mikael Darnell04/04/2023 14:22 CDTWorkstation Name: [id number] METABOLIC [id number] 12:43:52 Test Item Value Reference Range Interpretation [...] not appl icable for dialysis patien ts Hand Salter ID - JSSpecimen slightly ictericLACTIC ACID, [id number] 12:36:49 Test Item Value Reference Range Interpretation Comments LACTATE BLOOD VENOUS (2) (BEAKER) 1.61 mmol/L 0.50-2.00 (test code = 2872) Hand Salter ID - JSCBC W/PLT COUNT & AUTO [id number] 11:56:33 Test Item Value Reference Range Interpretation [...] (BEAKER) (test code = 2801) LACTIC ACID, [id number] 11:56:21 Test Item Value Reference Range Interpretation Comments LACTATE BLOOD VENOUS 2.81 mmol/L 0.50-2.00 H Specime n markedly (2) (BEAKER) (test hemolyzed code = 2872) Hand Salter ID - ADMINXR CHEST 2 [id number] 11:54:24 [facility] : 1965 Sex: [...] focal pneumonia or airspace edema.Electronically Signed By: Deadnre Retana04/04/2023 11:56 CDTWorkstation Name: [id number] 11:53:15 Test Item Value Reference Range Interpretation Comments PARTIAL THROMBOPLASTIN TIME 29.2 seconds 22.5-36.0 (BEAKER) (test code = 760) PROTHROMBIN TIME/[id number] 11:52:36 Test Item Value Reference Range Interpretation [...] Comments COLOR (BEAKER) (test code = 470) [employer] [facility] CLARITY (BEAKER) (test code = 469) Clear [...] 4 /LPF 514) SOURCE(BEAKER) (test code = 7677) Hand Salter ID - [auto]Hand Salter ID - techBODY FLUID CELL COUNT WITH DIFFERENTIAL 2023-04-04 11:13:45 Test Item Value Reference Range Interpretation Comments APPEARANCE FLUID (BEAKER) (test Bloody Clear A code = 510) COLOR FLUID (BEAKER) (test code [place] Colorless, Straw A = 511) RBC FLUID (BEAKER) (test code = 24883 /cu mm <=1 H 513) TOTAL NUCLEATED [...] 2873) XR CHEST 1 VIEW PORTABLE / [id number] 09:58:29 [facility] : 1965 Sex: FXR CHEST 1 VIEW PORTABLE / BEDSIDECLINICAL HISTORY: s/p left thora TECHNIQUE: Single view of the chest.COMPARISON: March 28, 2023IMPRESSION:Minimal left lung base opacities likely atelectasis or trace residualpleural effusion status post left thoracentesis. No pneumothorax. Thecardiomediastinal silhouette is magnified by technique. The osseousstructures appear stable.Electronically Signed By: Wilber Hylton04/04/2023 10:00 CDTWorkstation Name: [id number] CULTURE + [id number] 08:29:42 Test Item Value Reference Range Interpretation Comments CULTURE (BEAKER) (test No fungus isolated in code = 1095) 28 days FUNGUS SMEAR (BEAKER) No fungal elements seen (test code = 1406) [id number] 09:24:25 [facility] : 1965 Sex: FUltrasound guided left-sided thoracentesis.Clinical History: Left pleural effusion.Modality: Ultrasound.Sedation: None. Cloth Washer Back Tender: Ellis Munozistant: None. Estimated Blood Loss: 1ccSpecimen: [...] By: Lj Stevenson MD04/03/2023 09:26 CDTWorkstation Name: [id number] FLUID CELL COUNT WITH [id number] 17:23:22 Test Item Value Reference Range Interpretation Comments APPEARANCE FLUID (BEAKER) (test Cloudy Clear A code = 510) COLOR FLUID (BEAKER) (test code Brown Colorless, Straw A = 511) RBC FLUID (BEAKER) (test code = 87826 /cu mm <=1 H 513) TOTAL NUCLEATED [...] 2873) XR CHEST 1 VIEW PORTABLE / [id number] 15:03:35 [facility] : 1965 Sex: FTECHNIQUE: Frontal view of the chest.INDICATION: s/p left thoracentesis.COMPARISON: 03/28/2023.FINDINGS:LINES/TUBES: None.HEART AND MEDIASTINUM: Cardiomediastinal contour is within normallimits. LUNGS: The lungs are well inflated and clear. No consolidation orpulmonary edema.PLEURA: No pneumothorax. No significant pleural effusion.SOFT TISSUES AND BONES: Unremarkable.IMPRESSION:No acute cardiopulmonary process. No pneumothorax status post leftthoracentesis.Electronically Signed By: Adilia Polanco04/01/2023 15:05 CDTWorkstation Name: [id number] BRAIN WITHOUT IV [id number] 20:16:32 [facility] : 1965 Sex: FCT Head [...] Signed By: Antwan Flor03/30/2023 20:18 CDTWorkstation Name: [id number] METABOLIC [id number] 18:35:39 Test Item Value Reference Range Interpretation [...] not appl icable for dialysis patien ts Hand Salter ID - BSSpecimen slightly ictericHEPATIC FUNCTION [id number] 18:35:39 Test Item Value Reference Range Interpretation [...] Specimen slightly (test code = 347) hemolyzed Hand Salter ID - BSSpecimen slightly ictericPT/[id number] 18:34:42 Test Item Value Reference Range Interpretation [...] mechanical heart valves.CBC W/PLT COUNT & AUTO [id number] 18:18:57 Test Item Value Reference Range Interpretation [...] PERCENT (BEAKER) (test code = 2801) US [id number] 15:05:38 [facility] : 1965 Sex: FUltrasound guided left thoracentesis.Clinical History: Left pleural effusion.Modality: Ultrasound.Sedation: None. Cloth Washer Back Tender: Ellis Lylesistant: None. Estimated Blood Loss: 1ccSpecimen: 1400 cc [...] Signed By: Lee Diaz03/30/2023 15:07 CDTWorkstation Name: [id number] 13:01:27 Test Item Value Reference Range Interpretation Comments POC-GLUCOSE METER 91 mg/dL 70-110 : TESTED A T [facility] 6720 (BEAKER) (test code = [place], 1538) [address]: Hand Salter/Techni shavon ID = [id number] for Tamika Briggs [id number] 08:35:26 [facility] : 1965 Sex: FUltrasound guided left thoracentesis.Clinical History: Left pleural effusion.Modality: Ultrasound.Sedation: None. Cloth Washer Back Tender: Ellis Lylesistant: None. Estimated Blood Loss: 1ccSpecimen: [...] By: Lj Stevenson MD03/29/2023 08:37 CDTWorkstation Name: [id number] FLUID CELL COUNT WITH [id number] 12:50:33 Test Item Value Reference Range Interpretation Comments APPEARANCE FLUID (BEAKER) (test Bloody Clear A code = 510) COLOR FLUID (BEAKER) (test code [place] Colorless, Straw A = 511) RBC FLUID (BEAKER) (test code = 72375 /cu mm <=1 H 513) TOTAL NUCLEATED [...] 2873) XR CHEST 1 VIEW PORTABLE / [id number] 10:49:57 [facility] : 1965 Sex: FINDICATION: s/p thoracentesisCOMPARISON: 03/25/2023TECHNIQUE: Single frontal view of the chest.FINDINGS: Lungs and pleura: No pneumothorax status post thoracentesis. Noeffusion.Heart and mediastinum: Normal heart size. Unremarkable mediastinalcontours.Osseous structures: No acute abnormality.Other: None.IMPR ESSION:No pneumothorax status post thoracentesis. No effusion.Electronically Signed By: Estrella Walters03/28/2023 10:51 CDTWorkstation Name: [id number] FLUID CELL COUNT WITH [id number] 18:08:53 Test Item Value Reference Range Interpretation Comments APPEARANCE FLUID (BEAKER) Moderately Bloody Clear A (test code = 510) COLOR FLUID (BEAKER) (test Yellow Colorless, Straw A code = 511) RBC FLUID (BEAKER) (test 40183 /cu mm <=1 H code = 513) [...] 2873) XR CHEST 1 VIEW PORTABLE / [id number] 15:24:56 [facility] : 1965 Sex: FXR CHEST 1 VIEW PORTABLE / BEDSIDETECHNIQUE: Frontal view(s) of the chest.INDICATION: s/p thoracentesiss/p thoracentesisCOMPARISON: 03/21/2023FINDINGS/IMPRESSION:Lines/Tubes: NoneLungs/pleura: Low lung volumes. Mild interstitial airspace opacities,likely mild edema. No pleural effusion. No pneumothorax.Heart and Mediastinum: Unchanged.Soft Tissues and Bones: Unchanged.Electronically Signed By: Carolyn Block03/25/2023 15:26 CDTWorkstation Name: [id number] 19:00:19 Test Item Value Reference Range Interpretation Comments CULTURE (BEAKER) (test No growth in 5 days code = 1095) The specimen volume collected for this blood culture was below the optimum (10 mL per bottle or 20 mL total). Use of lower volumes may adversely affect recovery and/or detection times of some organisms.BLOOD [id number] 18:00:08 Test Item Value Reference Range Interpretation [...] No fungi seen (test code = 1406) [id number] 07:48:55 [facility] : 1965 Sex: FUltrasound guided left thoracentesis.Clinical History: Left pleural effusion.Modality: Ultrasound.Sedation: None. Cloth Washer Back Tender: Ellis Lylesistant: None. Estimated Blood Loss: 1ccSpecimen: [...] By: Lj Stevenson MD03/22/2023 07:50 CDTWorkstation Name: [id number] CHEST 1 VIEW PORTABLE / [id number] 06:19:15[facility] : 1965 Sex: FXR CHEST 1 VIEW PORTABLE / BEDSIDEINDICATION: s/p thoracentesisCOMPARISON: 03/14/2023FINDINGS: Portable frontal view of the chest. IMPRESSION:Support Lines: None Lungs and pleura: No focal lung consolidation or large pleural effusion.No pneumothorax.Heart and mediastinum: Stable contours. Additional findings: Stable osseous structures.Electronically Signed By: Wilber Hylton03/22/2023 06:21 CDTWorkstation Name: [id number] LAB [id number] 09:58:21 Test Item Value Reference Range Interpretation Comments SCAN RESULT (test code = See scanned report. [id number]) HEPATIC FUNCTION [id number] 05:11:09 Test Item Value Reference Range Interpretation [...] (test code = 29 U/L 6-55 347) Hand Salter ID - EOOSpecimen slightly ictericBASIC METABOLIC [id number] 05:11:08 Test Item Value Reference Range Interpretation [...] not appl icable for dialysis patien ts Hand Salter ID - EOOSpecimen slightly ictericPROTHROMBIN TIME/[id number] 04:50:46 Test Item Value Reference Range Interpretation Comments PROTIME (BEAKER) (test code = 18.5 seconds 11.9-14.2 H 759) INR (BEAKER) (test code = 370) 1.58 <=5.90 RECOMMENDED COUMADIN/WARFARIN INR THERAPY RANGESSTANDARD DOSE: 2.0 - 3.0 Includes: PROPHYLAXIS for venous thrombosis, systemic embolization; TREATMENT for venous thrombosis and/or pulmonary embolus.HIGH RISK: Target INR is 2.5-3.5 for patients with mechanical heart valves.BASIC METABOLIC [id number] 10:32:34 Test Item Value Reference Range Interpretation [...] not appl icable for dialysis patien ts Hand Salter ID - MARCOSpecimen slightly ictericBASIC METABOLIC [id number] 06:02:43 Test Item Value Reference Range Interpretation [...] rted eGFR is based on the CKD-EPI 2021 equation t hat does not use a race coefficientEsti mated GFR is not as accur ate as Creatinine Carol moiz in predicting glom erular filtration rate . Estimated GFR is not appl icable for dialysis patien ts Hand Salter ID - MARCOSpecimen slightly ictericHEPATIC FUNCTION [id number] 06:02:43 Test Item Value Reference Range Interpretation [...] (test code = 25 U/L 6-55 347) Hand Salter ID - MARCOSpecimen slightly ictericPROTHROMBIN TIME/[id number] 05:41:15 Test Item Value Reference Range Interpretation Comments PROTIME (BEAKER) (test code = 19.4 seconds 11.9-14.2 H 759) INR (BEAKER) (test code = 370) 1.75 <=5.90 RECOMMENDED COUMADIN/WARFARIN INR THERAPY RANGESSTANDARD DOSE: 2.0 - 3.0 Includes: PROPHYLAXIS for venous thrombosis, systemic embolization; TREATMENT for venous thrombosis and/or pulmonary embolus.HIGH RISK: Target INR is 2.5-3.5 for patients with mechanical heart valves.URINALYSIS W/ [id number] 12:02:58 Test Item Value Reference Range Interpretation [...] (test code Urine, Clean Catch = 2795) Hand Salter ID - [auto]Hand Salter ID - techMRA HEAD WITHOUT IV [id number] 09:07:21[facility] : 1965 Sex: FMR BRAIN [...] system: Normal flow-related enhancement within the bilateral J2rsbglqqk and the basilar artery Posterior cerebral arteries: Normal flow-related enhancement within thebilateral WATCH CASER P1-P2 segments Additional findings: None. IMPRESSION:No acute ischemia or parenchymal hemorrhage.No flow limiting stenosis in the major branch vessels of thecranialcirculation. Electronically Signed By: Estrella Walters03/19/2023 09:09 CDTWorkstation Name: [id number] BRAIN WITHOUT IV [id number] 09:07:21 [facility] : 1965 Sex: FMR BRAIN [...] system: Normal flow-related enhancement within the bilateral A6ieifdenn and the basilar artery Posterior cerebral arteries: Normal flow-related enhancement within thebilateral WATCH CASER P1-P2 segments Additional findings: None. IMPRESSION:No acute ischemia or parenchymal hemorrhage.No flow limiting stenosis in the major branch vessels of thecranialcirculation. Electronically Signed By: Estrella Walters03/19/2023 09:09 CDTWorkstation Name: [id number] 08:38:22[facility] : 1965 Sex: [...] By: Aravind Neal MD03/19/2023 08:40 CDTWorkstation Name: [id number] ABDOMEN [id number] 08:38:22 [facility] : 1965 Sex: [...] By: Aravind Neal MD03/19/2023 08:40 CDTWorkstation Name: [id number] W/PLT COUNT & AUTO DIFFERENTIAL 2023-03-19 07:44:16 [...] (BEAKER) (test code = 2801) COMPREHENSIVE METABOLIC [id number] 07:42:52 Test Item Value Reference Range Interpretation [...] glom erular filtration rate . Estimated GFR i s not applicable for dialysis patients Hand Salter ID - [id number] 07:40:36 Test Item Value Reference Range Interpretation Comments PHOSPHORUS (BEAKER) (test code = 4.3 mg/dL 2.3-4.7 604) Hand Salter ID - [id number] 07:40:35 Test Item Value Reference Range Interpretation Comments MAGNESIUM (BEAKER) (test code = 3.0 mg/dL 1.6-2.6 H 627) Hand Salter ID - MARCOCALCIUM, [id number] 07:16:59 Test Item Value Reference Range Interpretation Comments CALCIUM IONIZED (BEAKER) (test 1.08 mmol/L 1.12-1.27 L code = 698) PH, BLOOD (BEAKER) (test code = 7.45 1810) VITAMIN [id number] 21:59:30 Test Item Value Reference Range Interpretation Comments VITAMIN B12 (BEAKER) (test code = 999 pg/mL 213-816 H 774) Hand Salter ID - BSURINALYSIS W/ REFLEX URINE [id number] 18:23:30 Test Item Value Reference Range Interpretation [...] code = 516) SOURCE(BEAKER) (test code = 2797) Hand Salter ID - [auto]Hand Salter ID - techBASIC METABOLIC [id number] 18:21:01 Test Item Value Reference Range Interpretation [...] not appl icable for dialysis patien ts Hand Salter ID - BSSpecimen slightly ictericHEPATIC FUNCTION [id number] 18:21:01 Test Item Value Reference Range Interpretation [...] (test code = 36 U/L 6-55 347) Hand Salter ID - BSSpecimen slightly ictericPROTEIN, RANDOM [id number] 18:19:35 Test Item Value Reference Range Interpretation Comments PROTEIN, URINE (BEAKER) (test code = 13 mg/dL 0-14 1569) Hand Salter ID - ADMINSODIUM, RANDOM [id number] 18:19:35 Test Item Value Reference Range Interpretation Comments SODIUM URINE (BEAKER) (test code = 26 meq/L 243) Reference Range: No NormalsOperator ID - ADMINCREATININE, RANDOM [id number] 18:19:34 Test Item Value Reference Range Interpretation Comments CREATININE URINE (BEAKER) (test 117.0 mg/dL code = 375) Reference Range: No NormalsOperator ID - ADMINCALCIUM, [id number] 18:03:23 Test Item Value Reference Range Interpretation Comments CALCIUM IONIZED (BEAKER) (test 1.07 mmol/L 1.12-1.27 L code = 698) PH, BLOOD (BEAKER) (test code = 7.45 1810) [id number] 17:57:36 Test Item Value Reference Range Interpretation Comments MAGNESIUM (BEAKER) (test code = 2.1 mg/dL 1.6-2.6 627) Hand Salter ID - ADMINMISCELLANEOUS LAB [id number] 14:06:38 Test Item Value Reference Range Interpretation Comments SCAN RESULT (test code = See scanned report. [id number]) BODY FLUID CELL COUNT WITH [id number] 11:50:04 Test Item Value Reference Range Interpretation Comments APPEARANCE FLUID Cloudy Clear A (BEAKER) (test code = 510) COLOR FLUID (BEAKER) [employer] Colorless, Straw A (test code = 511) RBC FLUID (BEAKER) 85696 /cu mm <=1 H (test code = [...] for (BEAKER) (test code = malignancy 2619) [id number] Shaneka Saab M.D. (BEAKER) (test code = (electronic 2620) signature) CONTAINER BODY FLUID Sterile Cup (BEAKER) (test code = 2873) T SPOT [id number] 15:08:38 Test Item Value Reference Range Interpretation [...] = 1687) SCAN RESULT (test code = 5060975) XR CHEST 1 VIEW PORTABLE / [id number] 14:45:36 [facility] 1965 Sex: FChest AP portable semierectComparison exam: 03/11/2023History provided: Status post thoracentesisPleural fluid has been evacuated on the left. No pneumothorax evident.Heart size normal and lungs are clear.Electronically Signed By: Mp Harris03/14/2023 14:47 CDTWorkstation Name: [id number] [id number] 14:36:40[facility] : 1965 Sex: FULTRASOUND [...] Signed By: Mp Harris03/14/2023 14:56 CDTWorkstation Name: [id number] FLUID CELL COUNT WITH [id number] 18:15:17 Test Item Value Reference Range Interpretation Comments APPEARANCE FLUID Purulent Clear A (BEAKER) (test code = 510) COLOR FLUID (BEAKER) [employer] Colorless, Straw A (test code = 511) RBC FLUID (BEAKER) 52713 /cu mm <=1 H (test code = [...] code = count. Negative for 2619) malignancy [id number] Shaneka Saab M.D. (BEAKER) (test code = (electronic 2620) signature) CONTAINER BODY FLUID EDTA Tube (BEAKER) (test code = 2873) XR CHEST 1 VIEW PORTABLE / [id number] 12:19:07 [facility] : 1965 Sex: FXR CHEST 1 VIEW PORTABLE / BEDSIDETECHNIQUE: Frontal view(s) of the chest.INDICATION: Post thoracentesisPost thoracentesisCOMPARISON: 03/09/2023FINDINGS/IMPRESSION:Lines/Tubes: NoneLungs/pleura: Low lung volumes. Bibasilar atelectasis. No pleuraleffusion. No pneumothorax, status post left pleural thoracentesis.Heart and Mediastinum: Unremarkable.Soft Tissues and Bones: Unremarkable.Electronically Signed By: Carolyn Block03/11/2023 12:21 CDTWorkstation Name: [id number] [id number] 12:16:12 [facility] : 1965 Sex: FPROCEDURE: Ultrasound-guided thoracentesisProcedural PersonnelAttending physician(s): Brayden Coe physician(s): NoneResident physician(s): NoneAdvanhighland community hospital practice provider(s): NonePre-procedure diagnosis: Left pleural effusionPost- [...] and a sterilebandage was applied.Catheter placed: 5F ShanellPost-drainage hemithorax findings: Small pleural effusionAdditional DetailsAdditional description of procedure: NoneEquipment details: NoneSpecimens removed: Pleural fluidEstimated blood loss (mL): Less than 10Standardized report: SIR_Thoracentesis_v3AttestationSigner name: Viral Martinez attest that I was present for the entire procedure. I reviewed thestored images and agree with the report as written.Electronically Signed By: Carolyn Block03/11/2023 12:18 CDTWorkstation Name: [id number] ANTIBODY, [id number] 12:02:16 Test Item Value Reference Range Interpretation Comments RUBELLA IGG QUANTITATION (BEAKER) 39.0 IU/mL <8.0 H (test code = 572) Rubella IgG Result Interpretation: </= 7.0 IU/mL Negative - Presumed non- immune 8.0 - 9.9 IU/mL Equivocal >= 10.0 IU/mL Positive - Presumed immune CYTOMEGALOVIRUS ANTIBODY, [id number] 12:02:15 Test Item Value Reference Range Interpretation Comments CYTOMEGALOVIRUS, IGG (BEAKER) Positive Negative, Equivocal A (test code = 3429) CMV IgG Result Interpretation: </= 0.8 Al Negative 0.9-1.0 Al Equivocal >/=1.1 Al PositiveEBV ANTIBODY, [id number] 12:02:15 Test Item Value Reference Range Interpretation Comments IMANI DENIS VIRAL CAPSID Positive Negative, Equivocal A ANTIGEN IGG (BEAKER) (test code = 3415) Imani Denis Viral Capsid Antigen IgG Result Interpretation: </= 0.8 Al Negative 0.9-1.0 Al Equivocal >/= 1.1 Al PositiveEBV ANTIBODY, [id number] 12:02:15 Test Item Value Reference Range Interpretation Comments IMANI DENIS VIRAL CAPSID Negative Negative, Equivocal ANTIGEN IGM (BEAKER) (test code = 3418) Imani Denis Viral Capsid Antigen IgM Result Interpretation: </= 0.8 Al Negative 0.9-1.0 Al Equivocal >/= 1.1 Al [id number] 11:58:38 Medical Cytology Report Case: [id number] Authorizing Provider: Joseluis Stoner MD Collected:03/08/2023 12:46 PM Ordering Location: [facility] Received: 03/08/2023 01:09 PM Pathologist: Shaneka Saab MD Specimen: Pleural, Left LEFT PLEURAL FLUID (CYTOSPINS AND CELL BLOCK): - NEGATIVE FOR MALIGNANCY Signing Pathologist Direct Phone Line: [phone] signed by Shaneka Saab MD on 03/11/2023 at 11:58 AMThere are rare clusters of atypical cells that stain for positive Calretinin and negative for MOC-31 and Jason-EP4, confirming their mesothelial origin. Negative for [id number], 11954; 11237; 67925 x 89 y.o. F presenting with left pleural effusion here for left thoracentesis. PMH: asthma, cirrhosis, HTN, abscess (MRSA)LEFT PLEURAL FLUIDA. Pleural, LeftReceived 1100 mls bloody opaque chylous fluid; prepared 4 cytospins and cell block(A2)(collodion bag) - the cell block was fixed in formalin at 10:35 on 03/09/2023 Performed.SatisfactoryThe interpretation of this case included the use of immunohistochemistry or special stains.Calretinin; MOC-31 and Jason-SP4Djhozdf Slides Examined: In-house known positive controls were evaluated along with the test tissue. These control slides run alongside of the patients sample show appropriate staining. Internal positive and negative controls when available are evaluated Immunohistochemistry technical testing was performed at [facility], Pathology Laboratory where it was developed and [...] qualified to perform high complexity clinical laboratory testing.[facility], Department of Pathology, [address] [place] [address], [facility], Department of Pathology, [address] [place] [address], [facility] [facility], Department of Pathology, [address], [place] [address], CEIC SCREEN, URINE, [id number] 09:09:56 Test Item Value Reference Range Interpretation Comments SCAN RESULT (test code = See scanned report. [id number]) BODY FLUID CULTURE + GRAM [id number] 08:36:33 Test Item Value Reference Range Interpretation Comments CULTURE (BEAKER) (test code = 1095) No growth XR DXA BONE DENSITY [id number] 00:58:42 [facility] : 1965 Sex: FEXAM: XR [...] Signed By: Ken Sauer03/11/2023 01:00 CDTWorkstation Name: [id number] CHEST 2 VIEWS 2023-03-10 14:22:18 [facility]I, PATIENCELEIDY CURTIS : 1965 Sex: FEXAM: PA [...] Signed By: Lilo Domingo03/10/2023 14:24 CDTWorkstation Name: [id number] ZOSTER ANTIBODY, [id number] 08:09:51 Test Item Value Reference Range Interpretation Comments VARICELLA ZOSTER IGG (AL) (BEAKER) 3.3 (test code = 3197) VARICELLA ZOSTER RESULT INTERPRETATIONS: <=0.8 Al Nonreactive: Presumed non- immune to VZV 0.9-1.0Al Equivocal >=1.1 Al Reactive: Presumed immune to VZV TOXOPLASMA GONDII ANTIBODY, [id number] 08:09:51 Test Item Value Reference Range Interpretation Comments TOXOPLASMA GONDII IGG QUANTITATIVE < IU/mL <10.0 (BEAKER) (test code = 3428) Toxoplasma Gondii IgG Result Interpretation: </= 9.9 IU/mL Normal 10-11 IU/mL Equivocal >/= 12IU/mL PositiveBODY FLUID CELL COUNT WITH DIFFERENTIAL 2023-03-09 18:42:15 Test Item Value Reference Range Interpretation Comments APPEARANCE FLUID Turbid Clear A (BEAKER) (test code = 510) COLOR FLUID (BEAKER) [employer] Colorless, Straw A (test code = 511) RBC FLUID (BEAKER) 73793 /cu mm <=1 H (test code = [...] code = count. Negative for 2619) malignancy [id number] Shaneka Saab M.D. (BEAKER) (test code = (electronic 2620) signature) CONTAINER BODY FLUID EDTA Tube (BEAKER) (test code = 4633) XR MANDIBLE 4 VIEWS [id number] 18:04:10 [facility] : 1965 Sex: FEXAMINATION: XR MANDIBLE 4 VIEWS MIN INDICATION: PRE LIVER TRANSPLANT EVALCOMPARISON: None DISCUSSION:Osseous detail is partially obscured by overlying bones/soft tissues.No acute fracture or osseous abnormality given exam limitations. No joint malalignment or dislocation. The soft tissues are unremarkable. IMPRESSION:No acute osseous abnormality.Electronically Signed By: Deep Soler03/09/2023 18:06 CDTWorkstation Name: [id number] 17:13:55 Test Item Value Reference Range Interpretation Comments T4 TOTAL (BEAKER) (test code = 895) 7.7 ug/dL 4.9-11.7 Hand Salter ID - [id number] 16:33:38 Test Item Value Reference Range Interpretation Comments THYROID STIMULATING HORMONE 4.265 uIU/mL 0.350-4.940 (BEAKER) (test code = 772) Hand Salter ID - MMCARCINOEMBRYONIC ANTIGEN (CEA)2023-03-09 16:33:38 Test Item Value Reference Range Interpretation Comments CARCINOEMBRYONIC ANTIGEN (BEAKER) 2.2 ng/mL 0.0-5.0 (test code = 685) Hand Salter ID - MMHEPATITIS B CORE ANTIBODY, [id number] 16:33:38 Test Item Value Reference Range Interpretation Comments HEPATITIS B CORE IGM ANTIBODY Nonreactive Nonreactive (BEAKER) (test code = 645) Hand Salter ID - MMHIV-1 ANTIGEN WITH HIV-1/2 [id number] 16:33:38 Test Item Value Reference Range Interpretation Comments HIV-1 ANTIGEN WITH HIV 1\\T\\2 Nonreactive Nonreactive ANTIBODY (2) (AKER) (test code = 2586) Hand Salter ID - [id number] 15:58:22 Test Item Value Reference Range Interpretation Comments T3 TOTAL (BEAKER) (test code = 0.72 ng/mL 0.60-1.81 656) Hand Salter ID - [id number] 15:40:58 Test Item Value Reference Range Interpretation Comments TRANSFERRIN (BEAKER) (test code = 145 mg/dL 174-382 L 541) Hand Salter ID - MMSpecimen slightly ictericCRYPTOCOCCAL [id number] 14:32:45 Test Item Value Reference Range Interpretation Comments CRYPTOCOCCAL ANTIGEN, SERUM Negative Negative, Interference (BEAKER) (test code = 1828) [id number] 14:32:11 Test Item Value Reference Range Interpretation Comments RPR SCREEN (AKER) (test code = Nonreactive Nonreactive 420) HEMOGLOBIN [id number] 13:55:09 Test Item Value Reference Range Interpretation Comments HEMOGLOBIN A1C 4.7 % See_Comment [Automated m essage] ELECTROPHORESIS (AKER) The system which (test code = 3811) generated this result transmitted ref erence range: <=5.6%. The reference range was not used to int erpret this result as normal/abnormal . "The A1c is measured using a [facility]-certified method. HbA1c value equal to or greater than 6.5% as thediagnosis cutoff for diabetes. An HbA1c value of 5.7- 6.4% indicates increased risk for diabetes (prediabetes)."Hand Salter ID - ADMOperator ID - ADMBLOOD GAS, [id number] 13:50:57 Test Item Value Reference Range Interpretation [...] (test code = 1819) 21.0 VITAMIN D, [id number] 13:45:25 Test Item Value Reference Range Interpretation Comments VITAMIN D 25-OH (BEAKER) (test 17.2 ng/mL 6.6-49.9 code = 2764) Effective 06/22/2017: Reference Range ChangeNew: 6.6-49.9 ng/mL Previous: 13.0- 47.8 ng/mLRecommendedVitamin D Target Range: 30.0-40.0 ng/mLOperator ID - ED [id number] 11:33:41Medical Cytology Report Case: [id number] Authorizing Provider: Joseluis Stoner MD Collected: 03/03/2023 01:57 PM Ordering Location: [facility] Diagnostic Imaging Received: 03/04/2023 11:36 AM Pathologist: Shaneka Saab MD Specimen: Pleural, Left LEFT PLEURAL FLUID (CYTOSPINS AND CELL BLOCK): - NEGATIVE FOR MALIGNANCY - Chronic inflammatory cells present in background Signing Pathologist Direct Phone Line: [phone] signed by Shaneka Saab MD on 03/09/2023 at 11:33 [id number], [id number] y.o. F presenting with left pleural effusion. PMH: asthma, cirrhosis, HTN, abscess (MRSA)LEFT PLEURAL FLUIDA. Pleural, LeftReceived 1100 mls bloody white chylous opaque fluid; prepared 4 cytospins and cell block(A2)(collodion bag) - the cell block was fixed in formalin at 13:05 on 03/07/2023 Performed.[facility], Department of Pathology, [address] [place] [address], [facility], Department of Pathology, [address] [place] [address], PfJoint [facility],Department of [facility]ology, [address] [place] [address], [id number] 10:33:02 Test Item Value Reference Range Interpretation Comments ETHANOL (BEAKER) (test code = 400) < mg/dL <=10 Hand Salter ID - MMCOMPREHENSIVE METABOLIC [id number] 10:14:53 Test Item Value Reference Range Interpretation [...] not appl icable for dialysis patien ts Hand Salter ID - MMOperator ID - MMSpecimen slightly [id number] 09:51:32 Test Item Value Reference Range Interpretation Comments MAGNESIUM (BEAKER) (test code = 1.9 mg/dL 1.6-2.6 627) Hand Salter ID - [id number] 09:51:32 Test Item Value Reference Range Interpretation Comments PHOSPHORUS (BEAKER) (test code = 3.3 mg/dL 2.3-4.7 604) Hand Salter ID - MMURIC [id number] 09:51:32 Test Item Value Reference Range Interpretation Comments URIC ACID (BEAKER) (test code = 8.2 mg/dL 2.6-7.2 H 773) Hand Salter ID - MMSpecimen slightly ictericLIPID [id number] 09:51:32 Test Item Value Reference Range Interpretation [...] Borderline 130-159 High 160-189 Very High >=190 Hand Salter ID - MMSpecimen slightly ictericBILIRUBIN, [id number] 09:51:32 Test Item Value Reference Range Interpretation Comments BILIRUBIN DIRECT (BEAKER) (test 1.0 mg/dL 0.1-0.5 H code = 706) Hand Salter ID - MMGAMMA GLUTAMYL TRANSFERASE (GGT)2023-03-09 09:51:32 Test Item Value Reference Range Interpretation Comments GAMMA GLUTAMYL TRANSFERASE (BEAKER) 51 U/L 9-64 (test code = 364) Hand Salter ID - MMSpecimen slightly ictericPREGNANCY SCREEN, [id number] 09:24:02 Test Item Value Reference Range Interpretation Comments TEST URINE (BEAKER) (test Negative Negative code = 583) [id number] 09:11:02 Test Item Value Reference Range Interpretation Comments FIBRINOGEN LEVEL (BEAKER) (test 229 mg/dl 225-434 code = 658) [id number] 09:11:02 Test Item Value Reference Range Interpretation Comments PARTIAL THROMBOPLASTIN TIME 29.4 seconds 22.5-36.0 (BEAKER) (test code = 760) PROTHROMBIN TIME/[id number] 09:10:24 Test Item Value Reference Range Interpretation [...] mechanical heart valves.CBC W/PLT COUNT & AUTO [id number] 08:59:26 Test Item Value Reference Range Interpretation [...] PERCENT (BEAKER) (test code = 2801) US [id number] 13:29:33 [facility] : 1965 Sex: FUS THORACENTESISUS Guided Thoracentesis History: pleural effusionPrimary Hand Salter: Goldie Albright MD.Sedation: None. Anesthesia: Lidocaine local [...] uneventful recovery recovery, [facility] Complications: None immediate.Specimen: Sent to the lab. IMPRESSION:Impression: Successful ultrasound-guided thoracentesis of left pleuraleffusion withrecovery of 2.1 liters of pleural fluid. Thank you for the opportunity to assist in thecare of your patient.Electronically Signed By: Goldie Albright03/08/2023 13:31 CDTWorkstation Name: EYWXIN4ZD CHEST 1 VIEW PORTABLE / [id number] 13:05:28 [facility] EVER : 1965 Sex: FXR [...] Signed By: Goldie Albright03/08/2023 13:07 CDTWorkstation Name: [id number] CULTURE + SMEAR 2023-03-07 16:58:04 Test Item Value Reference Range Interpretation Comments CULTURE (BEAKER) (test No fungus isolated in code = 1095) 28 days FUNGUS SMEAR (BEAKER) No fungi seen (test code = 1406) BODY FLUID CELL COUNT WITH [id number] 19:21:25 Test Item Value Reference Range Interpretation Comments APPEARANCE FLUID Turbid Clear A (BEAKER) (test code = 510) COLOR FLUID (BEAKER) [employer] Colorless, Straw A (test code = 511) RBC FLUID (BEAKER) 92409 /cu mm <=1 H (test code = [...] code = count. Negative for 2619) malignancy [id number] Shaneka Saab M.D. (BEAKER) (test code = (electronic 2620) signature) CONTAINER BODY FLUID EDTA Tube (BEAKER) (test code = 2873) XR CHEST 1 VIEW PORTABLE / [id number] 15:32:34 [facility] : 1965 Sex: FXR CHEST 1 VIEW PORTABLE / BEDSIDETECHNIQUE: Frontal view(s) of the chest.INDICATION: post thoracentesisCOMPARISON: 02/21/2023FINDINGS/IMPRESSION:Lines/Tubes: NoneLungs/pleura: A lingular/left lower lobe opacity with adjacent leftpleural effusion. No right-sided pleural effusion. No pneumothorax.Heart and Me diastinum: Unremarkable.Soft Tissues and Bones: Unremarkable.Electronically Signed By: Goldie Pappas [facility]03/03/2023 15:34 CDTWorkstation Name: [id number] [id number] 14:52:49 [facility] : 1965 Sex: FPROCEDURE: [...] Signed By: Carolyn Block03/03/2023 15:04 CDTWorkstation Name: [id number] LAB [id number] 14:03:21 Test Item Value Reference Range Interpretation Comments SCAN RESULT (test see scanned report See scanned report. code = [id number]) see scanned reportCT BRAIN WITHOUT IV [id number] 20:48:50 [facility] : 1965 Sex: [...] Sinuses: Predominantly clearTympanomastoid Cavities: NormalOther: NoneIMPRESSION:No acute intracranial abnormality.Electronically Signed By: Erika Almazan02/26/2023 20:50 CDTWorkstationName: [id number] METABOLIC [id number] 18:18:27 Test Item Value Reference Range Interpretation [...] not appl icable for dialysis patien ts Hand Salter ID - MITUL BSpecimen slightly [id number] 18:18:27 Test Item Value Reference Range Interpretation Comments LIPASE (BEAKER) (test code = 749) 65 U/L 8-78 Hand Salter ID - MITUL BSpecimen slightly ictericCBC W/PLT COUNT & AUTO [id number] 18:18:20 Test Item Value Reference Range Interpretation [...] 0.00-1.00 PERCENT (BEAKER) (test code = 2801) [id number] 18:04:10 Test Item Value Reference Range Interpretation Comments AMMONIA (BEAKER) (test 40 mol/L 18-72 Speci men slightly code = 348) hemolyzed Hand Salter ID - ADMINBODY FLUID CULTURE + GRAM [id number] 11:35:18 Test Item Value Reference Range Interpretation Comments CULTURE (BEAKER) (test code = 1095) No growth [id number] 12:49:07Medical Cytology Report Case: [id number] Authorizing Provider: Joseluis Stoner MD Collected: 02/21/2023 11:49 AM Ordering Location: [facility] Received: 02/22/2023 09:24 AM Pathologist: Salvador Davenport MD Specimen: Pleural, Left LEFT PLEURAL FLUID (CYTOSPINS AND CELL BLOCK): - NEGATIVE FOR MALIGNANCY Reactive mesothelial cells and mixed inflammatory cells present Signing Pathologist Direct Phone Line: [phone] signed by Salvador Davenport MD on 02/23/2023 at 12:49 [id number], [id number] y.o. F with a PMH of HTN, asthma, Cifuentes cirrhosis, esophageal varices, refractory ascites and hepatic hydrothorax. Also with gallstones/biliary obstruction needing axial stent placement who was admitted to OSH for nausea and emesis x one day and transferred to [facility] for further evaluation and consideration of choleystitis / cholelithiasis. LEFT PLEURAL FLUIDA. Pleural, LeftReceived 1100 ml gelatinous orangecream fluid; prepared 4 cytospins and cell block(A2)(collodion bag) - the cell block was fixed in formalin at 16:07 on 3Performed.[facility], Department of Pathology, [address] [place] [address], [facility], Department of Pathology, [address] [place] [address], [facility], Department of Pathology, [address] [place] [address], [place] [address], [place] [id number] 15:34:35 [facility] : 1965 Sex: FUltrasound guided left thoracentesis.Clinical History: Left pleural effusion.Modality: Ultrasound.Sedation: None. Cloth Washer Back Tender: Danuta Corralistant: None. Estimated Blood Loss: 1ccSpecimen: [...] guided left thoracentesis.BODY FLUID CELL COUNT WITH [id number] 13:54:05 Test Item Value Reference Range Interpretation Comments APPEARANCE FLUID (BEAKER) (test Turbid Clear A code = 510) COLOR FLUID (BEAKER) (test code [employer] Colorless, Straw A = 511) RBC FLUID (BEAKER) (test code = 05560 /cu mm <=1 H 513) TOTAL NUCLEATED [...] 2873) XR CHEST 1 VIEW PORTABLE / [id number] 12:41:37 [facility] : 1965 Sex: FINDICATION: s/p left thoraCOMPARISON: 02/17/2023TECHNIQUE: Single frontal view of the chest.FINDINGS: Lines, tubes, and devices: None.Lungs and pleura: Clear lungs. No pneumothorax.Heart and mediastinum: Normal heart size. Unremarkable mediastinalcontours.Osseous structures: No acute abnormality. Mild to moderate spondylosisand facet arthropathy are present within the spine.Other: None.IMPRESSION:No acute intrathoracic abnormality.US [id number] 13:20:59[facility] : 1965 Sex: FUltrasound guided left thoracentesis.Clinical History: Left pleural effusion.Modality: Ultrasound.Sedation: None. Cloth Washer Back Tender: Danuta Youngt: None. Estimated Blood Loss: 1ccSpecimen: 1700 cc [...] and uncomplicated ultrasound guided left thoracentesis.US ABDOMEN [id number] 13:20:53 [facility] : 1965 Sex: FHistory: Ascites. PROCEDURE: Limited sonographic examination of the abdomen was performed inpreparation for planned ultrasound-guided paracentesis. Limitedsonographic examination of the abdomen showed only a trace amount ofperihepatic and midline fluid. Therefore, paracentesis was notperformed. IMPRESSION:1. Trace ascites, not enough for planned paracentesis.XR CHEST 1 VIEW PORTABLE / [id number] 08:45:23[facility] : 1965 Sex: FChest AP portableCOMPARISON STUDY: 02/16/2023History provided: Status post left thoracentesisPleural fluid has been evacuated on the left. No pneumothorax. Lungs areclear. Heart size normal.COMPREHENSIVE METABOLIC [id number] 05:08:14 Test Item Value Reference Range Interpretation [...] not appl icable for dialysis patien ts Hand Salter ID - MMSpecimen slightly ictericPROTHROMBIN TIME/[id number] 04:59:05 Test Item Value Reference Range Interpretation [...] mechanical heart valves.CBC W/PLT COUNT & AUTO [id number] 04:48:06 Test Item Value Reference Range Interpretation [...] 0-0 (test code = 413) SODIUM, RANDOM [id number] 21:11:21 Test Item Value Reference Range Interpretation Comments SODIUM URINE (BEAKER) (test code = 20 meq/L 243) Reference Range: No NormalsOperator ID - ADMINURINALYSIS [id number] 21:04:51 Test Item Value Reference Range Interpretation Comments RBC UA (BEAKER) (test code = 519) 20 /HPF WBC UA (BEAKER) (test code = 520) 4 /HPF BACTERIA (BEAKER) (test code = Occasional 517) SQUAMOUS EPITHELIAL (BEAKER) (test 4 /HPF code = 516) Hand Salter ID - techURINALYSIS WITH MICROSCOPIC IF [id number] 21:02:38 Test Item Value Reference Range Interpretation [...] = 463) SOURCE(BEAKER) (test code = 2795) Hand Salter ID - techXR CHEST 1 VIEW PORTABLE / [id number] 09:34:56 [facility] : 1965 Sex: FINDICATION: cough, recent left pleural effusionCOMPARISON: NoneTECHNIQUE: Single frontal view of the chest.FINDINGS: Lungs and pleura: Mild basilar subsegmental atelectasis. Questionabletrace left effusion.Heart and mediastinum: Normal heart size. Unremarkable mediastinalcontours.Osseous structures: No acute abnormality.Other: None.IMPRESSION:Mild basilar subsegmental atelectasis. Questionable trace left e ffusion.HEPATIC FUNCTION [id number] 06:43:05 Test Item Value Reference Range Interpretation [...] (test code = 42 U/L 6-55 347) Hand Salter ID - ADMINSpecimen slightly ictericBASIC METABOLIC [id number] 06:43:04 Test Item Value Reference Range Interpretation [...] not appl icable for dialysis patien ts Hand Salter ID - ADMINSpecimen slightly ictericCBC W/PLT COUNT & AUTO [id number] 06:02:40 Test Item Value Reference Range Interpretation [...] 0.00-1.00 PERCENT (BEAKER) (test code = 2801) [id number] 18:46:14Medical Cytology Report Case: [id number] Authorizing Provider: Joseluis Stoner MD Collected: 02/04/2023 02:25 PM Ordering Location: [facility] Radiology Ultrasound Received: 02/08/2023 08:26 AM Pathologist: Simon Corona MD Specimen: Pleural, Left LEFT PLEURAL FLUID (CYTOSPINS AND CELL BLOCK): - NEGATIVE FOR MALIGNANCY - Reactive mesothelial cells, histiocytes, and lymphocytes Signing Pathologist Direct Phone Line: [phone] signed by Simon Corona MD on 02/09/2023 at 6:46 [id number], [id number] y.o. F with h/o CIFUENTES cirrhosis decompensated with EV, hydrothorax HTN, abscess (MRSA), asthma.LEFT PLEURAL FLUIDA. Pleural, LeftReceived 1100 ml orange cream fluid; prepared 4 cytospins and cell block(A2)(collodion bag) - the cell block was fixed in formalin at 16:44 on 02/08/2023erformed.[facility], Department of Pathology, [address] [place] [address], [facility]abgkK[facility], Department of Pathology, [address] [place] [address], ObbwilKaiser [facility], Department of Pathology, [address] [place] [address], FNZG FLUID CULTURE + GRAM [id number] 13:30:56 Test Item Value Reference Range Interpretation Comments CULTURE (BEAKER) (test code = 1095) No growth BODY FLUID CELL COUNT WITH [id number] 17:29:30 Test Item Value Reference Range Interpretation Comments APPEARANCE FLUID (BEAKER) (test Bloody Clear A code = 510) COLOR FLUID (BEAKER) (test code Red Colorless, Straw A = 511) RBC FLUID (BEAKER) (test code = 35243 /cu mm <=1 H 513) TOTAL NUCLEATED [...] EDTA Tube (test code = 2873) U/S, [id number] 16:18:00SAURABH NICOLE MD Laterality?- >LeftLabs to be Ordered:->Body Fluid Culture (w/Gram Stain, C\\T\\S)AFB smear and culture Labs to be Ordered:->CytologyLabs to be Ordered:->Fungal CultureLabs to be Ordered:->Glucose+LDH+ProteinLabs to be Ordered:->Cell CountLabs to be Ordered:->Other (please add comment)Reason for Exam:- >recurrent left pleural effusion [facility] : 1965 Sex: FFINAL REPORT Ultrasound guided left thoracentesis. Clinical History: Left pleural effusion. Modality: Ultrasound. Sedation: None. Cloth Washer Back Tender: Danuta Taylor PA-C Grain Buyer: None. Estimated Blood Loss: 1cc Specimen: 1100 [...] Diaz Verified Date/Time: 02/04/2023 16:18:02 Reading Location: [address] Ultrasound Reading Room Electronically signed by: Cirilo GROSSMAN 02/04/2023 04:18 PMRAD, CHEST, 1 VIEW, NON DEPT 2023-02-04 15:10:00SAURABH NICOLE MD Reason for exam:->s/p left thoraShould this be performed at the bedside?->YesIn [place] [facility] : 1965 Sex: FFINAL [...] 02/04/2023 15:10:45 CBC W/PLT COUNT & AUTO [id number] 16:57:36 Test Item Value Reference Range Interpretation [...] (BEAKER) (test code = 2801) HEPATIC FUNCTION [id number] 16:17:22 Test Item Value Reference Range Interpretation [...] (test code = 42 U/L 6-55 347) Hand Salter ID - BSSpecimen slightly ictericBASIC METABOLIC [id number] 16:17:21 Test Item Value Reference Range Interpretation [...] not appl icable for dialysis patien ts Hand Salter ID - BSSpecimen slightly ictericPROTHROMBIN TIME/[id number] 16:05:29 Test Item Value Reference Range Interpretation Comments PROTIME (BEAKER) (test code = 18.5 seconds 11.9-14.2 H 759) INR (BEAKER) (test code = 370) 1.58 <=5.90 RECOMMENDED COUMADIN/WARFARIN INR THERAPY RANGESSTANDARD DOSE: 2.0 - 3.0 Includes: PROPHYLAXIS for venous thrombosis, systemic embolization; TREATMENT for venous thrombosis and/or pulmonary embolus.HIGH RISK: Target INR is 2.5-3.5 for patients with mechanical heart valves.BLOOD [id number] 16:00:58 Test Item Value Reference Range Interpretation Comments CULTURE (BEAKER) (test No growth in 5 days code = 1095) The specimen volume collected for this blood culture was below the optimum (10 mL per bottle or 20 mL total). Use of lower volumes may adversely affect recovery and/or detection times of some organisms.BLOOD [id number] 16:00:58 Test Item Value Reference Range Interpretation Comments CULTURE (BEAKER) (test No growth in 5 days code = 1095) The specimen volume collected for this blood culture was below the optimum (10 mL per bottle or 20 mL total). Use of lower volumes may adversely affect recovery and/or detection times of some organisms.[id number] 14:39:22 Medical Cytology Report Case: [id number] Authorizing Provider: Naheed Villalta MD Collected: 01/21/2023 08:44 AM Ordering Location: [address] Received: 01/21/2023 03:34 PM Service Pathologist: Hany Ferrer MD Specimen: Pleural, Left LEFT PLEURAL FLUID (CYTOSPINS AND CELL BLOCK): - NEGATIVE FOR MALIGNANCY BLOOD WITH REACTIVE MESOTHELIAL CELLS AND MIXED CHRONIC INFLAMMATORY CELLS Signing Pathologist Direct Phone Line: [phone] signed by Hany Ferrer MD on 01/24/2023 at 2:39 [id number], [id number] y.o. F with h/o HTN, asthma, decompensated [...] was fixed in formalin at 16:38 on 01/21/2023erformed.[facility], Department of Pathology, [address] [place] [address], [facility], [facility] of [facility]ology, [address] [place] [address], [facility], Department of Pathology, [address] [place] [address], XKRP FLUID CULTURE + GRAM [id number] 14:24:35 Test Item Value Reference Range Interpretation Comments CULTURE (BEAKER) (test code = 1095) No growth CALCIUM, [id number] 05:18:15 Test Item Value Reference Range Interpretation Comments CALCIUM IONIZED (BEAKER) (test 1.08 mmol/L 1.12-1.27 L code = 698) PH, BLOOD (BEAKER) (test code = 7.45 1810) COMPREHENSIVE METABOLIC [id number] 04:54:27 Test Item Value Reference Range Interpretation [...] not appl icable for dialysis patien ts Hand Salter ID - ADMINSpecimen slightly m[id number] 04:53:09 Test Item Value Reference Range Interpretation Comments PHOSPHORUS (BEAKER) (test code = 3.1 mg/dL 2.3-4.7 604) Hand Salter ID - [id number] 04:53:08 Test Item Value Reference Range Interpretation Comments MAGNESIUM (BEAKER) (test code = 1.8 mg/dL 1.6-2.6 627) Hand Salter ID - ADMINCBC W/PLT COUNT & AUTO [id number] 04:36:32 Test Item Value Reference Range Interpretation [...] (BEAKER) (test code = 2801) COMPREHENSIVE METABOLIC [id number] 04:44:22 Test Item Value Reference Range Interpretation [...] not appl icable for dialysis patien ts Hand Salter ID - MMSpecimen slightly ictericCBC W/PLT COUNT [...] PERCENT (BEAKER) (test code = 2801) U/S, [id number] 18:07:00SAURABH NICOLE MD Laterality?- >Left Reason for exam:->SHORTNESS OF BREATH Reason for exam:->ABNORMAL IMAGING RESULT Labs to be Ordered:->Body Fluid Culture (w/Gram Stain, C\\T\\S) Labsto be Ordered:->Cytology Labs to be Ordered:->Glucose+LDH+Protein Labs to be Ordered:->CellCount [facility] 1965 Sex: FFINAL REPORT Ultrasound guided left-sided thoracentesis. Clinical History: Left pleural effusion. Modality: Ultrasound. Sedation: None. Cloth Washer Back Tender: Carlos Ray PA-C Grain Buyer: None.Estimated Blood Loss: 1cc Specimen: 2450 cc [...] MDReport Verified Date/Time: 01/21/2023 18:07:57 Reading Location: [address] Ultrasound Reading Room BODY FLUID CELL COUNT WITH [id number] 16:39:03 Test Item Value Reference Range Interpretation [...] = 2873) RAD, CHEST, 1 VIEW, NON [id number] 09:48:00SAURABH NICOLE MD Reason for exam:->s/p left thoracentesisShould [facility]?->Yes[facility] : 1965 Sex: FFINAL [...] abnormality. Upper abdomen: Unremarkable. Signed: Lee Diaz [facility] Verified Date/Time: 01/21/2023 09:48:04 [facility] SEILINGOMPREHENSIVE METABOLIC [id number] 05:25:17 Test Item Value Reference Range Interpretation [...] not appl icable for dialysis patien ts Hand Salter ID - mmSpecimen slightly ictericLACTIC ACID, [id number] 05:14:06 Test Item Value Reference Range Interpretation Comments LACTATE BLOOD VENOUS (2) (BEAKER) 1.43 mmol/L 0.50-2.00 (test code = 2872) Hand Salter ID - mmSpecimen slightly ictericCBC (HEMOGRAM ONLY)2023-01-21 [...] WBC 0-0 (test code = 413) PROTHROMBIN TIME/[id number] 00:49:25 Test Item Value Reference Range Interpretation [...] valves.CT, CHEST WITH IV CONTRAST- PE TEST [id number] 17:44:00SAURABH NICOLE MD Unlisted Reason for Exam - Click Yes and Enter Reason Below->No [facility] EV[facility] : 1965 Sex: [...] MDReport Verified Date/Time: 01/20/2023 17:44:58 LACTIC ACID, [id number] 16:27:23 Test Item Value Reference Range Interpretation Comments LACTATE BLOOD VENOUS 2.52 mmol/L 0.50-2.00 H Specime n slightly (2) (BEAKER) (test hemolyzed code = 2872) Hand Salter ID - ADMINSpecimen slightly ictericRAD, CHEST, 1 VIEW, NON DEPT 2023-01-20 15:36:00SAURABH NICOLE MD Reason for exam:->SHORTNESS OF BREATHReason for exam:->ABNORMAL IMAGING RESULTShould this be performed at the bedside?->Yes [facility] : 1965 Sex: [...] Verified Date/Time: 01/20/2023 15:36:18 HIGH SENSITIVITY TROPONIN [id number] 15:35:54 Test Item Value Reference Range Interpretation Comments HIGH SENSITIVITY TROPONIN I (test 8 pg/ml <=17 code = 3624929) Hand Salter ID - ADMINThe FLEET SERVICE CLERK STAT High Sensitivity Troponin-I results should be used in conjunction with other diagnostic information such as ECG, clinical observations and information, and patientsymptoms to aid in the diagnosis of PR. HCG, QUANTITATIVE, [id number] 15:35:54 Test Item Value Reference Range Interpretation Comments GONADOTROPIN, CHORIONIC (HCG) QUANT < mIU/mL 0-10 (BEAKER) (test code = 649) Non- Females: <10 mIU/mL Females: Gestation Age Reference Range(mIU/mL) 0.2-1 Week 5-50 1-2 Weeks 50-500 2-3 Weeks 100-5,000 3-4 Weeks 500-10,000 4-5 Weeks 1,000-50,000 5-6 Weeks 10,000-100,000 6-8 Weeks 15,000- 200,000 2-3 Months 10,000-100,000 Hand Salter ID - ADMINB-TYPE NATRIURETIC FACTOR (BNP)2023-01-20 15:33:30 Test Item Value Reference Range Interpretation Comments B-TYPE NATRIURETIC PEPTIDE (BEAKER) 11 pg/mL 0-100 (test code = 700) Hand Salter ID - ADMINCOMPREHENSIVE METABOLIC [id number] 15:29:09 Test Item Value Reference Range Interpretation [...] not appl icable for dialysis patien ts Hand Salter ID - ADMINSpecimen slightly [id number] 15:29:09 Test Item Value Reference Range Interpretation Comments LIPASE (BEAKER) (test code = 749) 61 U/L 8-78 Hand Salter ID - ADMINSpecimen slightly cnsceciPYCSIMQNK8380-66-85 15:29:08 Test Item Value Reference Range Interpretation Comments MAGNESIUM (BEAKER) 1.9 mg/dL 1.6-2.6 Specimen markedly (test code = 627) hemolyzed Hand Salter ID - ADMINLACTIC ACID, [id number] 15:25:00 Test Item Value Reference Range Interpretation Comments LACTATE BLOOD VENOUS 3.00 mmol/L 0.50-2.00 H Specime n markedly (2) (BEAKER) (test hemolyzed code = 2872) Hand Salter ID - ADMINSpecimen slightly [id number] 15:17:14 Test Item Value Reference Range Interpretation Comments PARTIAL THROMBOPLASTIN TIME 29.9 seconds 22.5-36.0 (BEAKER) (test code = 760) PROTHROMBIN TIME/[id number] 15:16:12 Test Item Value Reference Range Interpretation [...] mechanical heart valves.CBC W/PLT COUNT & AUTO [id number] 15:12:40 Test Item Value Reference Range Interpretation [...] (BEAKER) (test code = 2801) pH, body [id number] 02:37:54 Test Item Value Reference Range Interpretation Comments pH, Body Fluid 7.6 (test code = 9978-2) PH FLUID TYPE Body fluid Reference (test code = range:Reference 28258-7) ranges have not been established on thistype of flu id for this test. EDILBERTO (test code Performing Lab *CHRISTOPHER = EDILBERTO) Travel Desiya/Ness [place] [address] [place] [address] Stephane Jeffers MD, PhD [facility] HospitalCOMPREHENSIVE METABOLIC [id number] 06:51:38 Test Item Value Reference Range Interpretation [...] 1092) DATA TO CALCULA TE ESTIMATED GFR. Hand Salter ID - MARCOSpecimen slightly [id number] 06:11:49 Test Item Value Reference Range Interpretation Comments PHOSPHORUS (BEAKER) (test code = 3.6 mg/dL 2.3-4.7 604) Hand Salter ID - HDXWODCVGQSROC9600-79-77 06:11:48 Test Item Value Reference Range Interpretation Comments MAGNESIUM (BEAKER) (test code = 1.7 mg/dL 1.6-2.6 627) Hand Salter ID - MARCOCBC W/PLT COUNT & AUTO [id number] 05:40:48 Test Item Value Reference Range Interpretation [...] PERCENT (BEAKER) (test code = 2801) CALCIUM, [id number] 05:33:21 Test Item Value Reference Range Interpretation Comments CALCIUM IONIZED (BEAKER) (test 1.05 mmol/L 1.12-1.27 L code = 698) PH, BLOOD (BEAKER) (test code = 7.50 1810) BLOOD [id number] 00:01:46 Test Item Value Reference Range Interpretation Comments CULTURE (BEAKER) (test No growth in 5 days code = 1095) The specimen volume collected for this blood culture was below the optimum (10 mL per bottle or 20 mL total). Use of lower volumes may adversely affect recovery and/or detection times of some organisms.[id number] 19:31:37 Test Item Value Reference Range Interpretation Comments Case Report (test code Medical Cytology = 104) Report Case: [id number] Authorizing Provider: Marisabel Ho MD Collected: 12/30/2022 09:33 AM Ordering Location: [address] Received: 12/30/2022 01:05 PM Service Pathologist: Lilibeth Mello MD Specimen: Pleural, Left DIAGNOSIS (test code = l8uhsGOhSGGdj6lvJSXmuP 3220) FuZzEwMzNcZnRuYmpcdWMx IHtccnRmMVxlcGljMTAyMD XxEK7vmAqboUb6zZlyMHJj slJ0sZRaFAmij6lmPYD7i7 recolwTGQnCBvnCl1vpDOo lAxaVeMrZGCuRKe8lT88SX LzdH6nwINyGKr5HKDleXLy uuFnOnQiYQEsgOMupBA3FJ CrEC0hhunePHedGXsxHUTt jdA7FLKjhPGuZ5RrASTzWS 6skrjiFXB2XIkjUKOrTMC7 AkGdBCKbt5Jvndh7BkQyoG FyZFxwbGFpblxmczIwIExF RlQgUExFVVJBTCBGTFVJRC CbY3cUB6QZLG4IGPEABMAW KEpVSNUIM7HUBKznaLzaZL AgICAtICBORUdBVElWRSBG N8UxQNRXHHySMV2LROpbOQ IgICAgLSAgQmVuaWduIGFu UPKrPXHzdQc2LHMoHEOvuZ afsCrdcLNhLRalyhAzDK1i hPLoZWxvgUhiZHB4tVJpXJ 4lKAOedt1sjGLdfK6vbKYb xBB9jH2aUWlhYEO0a8qupF YxXHNzdGUxODAwMFxhbnNp ZYLmPgrlbxvyWKSyJTY5ge LhFDMaVFuvISVwBEfpWz6q xJFudYjtNnFdVIWjw4felh NRshlaoWm9j5ipSHNfOnW9 uMDyUKxcB2jvtbXrlMQdTI RvMMl1kJ80UBKdnL1liUDt LIpdncLaMeO1PTtwXCXrZj M6FJIoiWPpVUInJ1gsCAIk FIpmUCOdMZulrXXiFTL8uI eqt3L7yCNrkBWnwHuzCdKc CvJzUxEOc0VhTFr2yIchZ2 IbHNGkFlE4gVJxXVJeGLul DGHpWTVcalP7gA42FSckbf C7rRRud2Xhe94gz783mM1f oLGfIZL6YBSzYOEviBWgQY WnNMZ8ZUYzjOTbB2jsSWYc YF7fbdoiYLciAVqhVBFfkZ A0WLTvcZUqJ8AoUOAlMSnu SQLxdjl8ZlMgWk9mdRTzqZ laPLxdr8lyy7anuWXzInl0 CEDyMmTuWpdrOIlug7Fyy4 rrXLUjsb7jHOQ0vDHdqOkz l2T4tLWvGKUnsTDgAHToSJ 5huGMmJLHraU7xdcifUXAp YnJkcmhlYWRccGdicmRyZm 7vfEmqCNB1QIlcB9tjzK7f CeP3TMtuS0fwiB6xCWz4NX yqFZMwvWS9uiO5BRPnhKVz M3LeaI6aKOPqYY3ngnd1x0 anKOL4IQejTRXkYmJ0epI0 NDBcaGVhZGVyeTcyMFxmb2 64KVM0GhVyFXJko3BwL0Xo dFztM24eqBmwS74rDDFkfI alwK3apAhunA7vSzXqPsGv AAqkwRxxXN8wQIHpH4wyvC KjESSzYZJwV2sqBhAgwU2p uXfwUZstzcAsDLWbFaf3WG RxdSTgWWYkDot8VMKmBSPs P50aypnnQWS5cR8hg5qia0 YcEDziNQS2ARKvx58bKYok lzM8KYhzGc51VJcbION8CI pccGFyfX0= CPT Code(s) (test code f6nniTIhIDPuyDBhFRIoDG = 3357) wuikUsAKHgjDZsM6Ymsegs YZvfUM5sNQ2qfDluhCWhdT IuRAXaJdToh4wsn136pNDt z9rfPISRaxezmCc4yDrxF4 5rq9H5LaedI19itNWwCGV7 IBUgBPIbcRGaLANpISA1NT NbyXZtK7bqKJVnBP1hvdvr TQnkWIflUOWtfDE0EBLckT RbR4FsXNQxAJriEERjylq6 KiFoYr4isBLtoTeyCQuwXT JkXHBsYWluXGZzMjAgODgx TYapJAp6WbK9NIFbif5= CLINICAL DATA (test k5ltyQRmTGKgfCVmREMiWL code = 3355) mgfeErWLOdbPLkT6Mhjnqt TPaxRH0mOS4wwSclnMLleE HnSEAuFjSvt9euu318qOZe f8onXQHGrgldlZq9vWtlQ1 1ag0T9SqzzK54fwPQiIGL0 OGHmFAJbtRUcQDJaDOX1LD CsoDOmP1qnSYNdDD1vcgwv FYzfMGqyNBCmvNI8JOOieS MzU1DvBESzWJikEQCgnkx7 RlCyZf6gwAWbzIiwSDzwYM JkXHBsYWluXGZzMjAgNTgg wP7rMde+Rlx+c4n2hHMkQ6 8mVJWpv88gPI0zUHRxMMUG RQELDXNaxzKfb1TwqsSsA4 XbBBXilIuzZ3HlqVK8FJPn B0NzSAReo3DxnHMsOCLvps JevEgqgh06kM4mGOtxKA4v QCkfa1GogbTfKUbblDazwf EfIG56MKZquYvqr3osklPw SkGgLtVlNa0iHFVfuKqnbf uxj8QokBZ2X6Etp14nss8i COR0bM6yVOM0LU16DYBmER 9aCJOfv2ImRAUaqHHlxBAm yZLlHN4dmEBgtIGyCe4zIK Mbh5uaS8mqwTXnyY6iyPdl wxeGZoeiJF5dIZGzeWvvBZ X8dqPvt8IglgInCGOjff8q UQ20rALiCKFuEEIlXt8kIR P3ELc6WNUku49aKG0yDHWk OTK7wIJpmYEtGvGgHnEccG ynRTvwrAFehvpwxd4fnJ8e OD43HNZyg6RlTZMfnuCra4 pnelJwBCZwAE3fTDTeVPI6 hW1xhAMwrN== SPECIMEN SOURCE (test p6nrsALmAHOjnHNqSEYsEI code = 3377) qujdBsRRFqbJPlV5Pqhofs USxkDO8lYA6ldCyhvOBqhM SxYQQnMkEqg7ttp494aTJd s5dtQEOCfaljqLi3rScdI4 5ha5W1UiwsI41mtZPeFVE2 TEPkPJKnvTDiSNPbMTX8ZC YumMNbD2meOMVlTY5ludcl TNpqVCcfEGKgyIO0LSIspH MeD3KeMZRgKHrpVHBcsqh6 CeFxIt4nhWHmgLxnPZiaKH JkXHBsYWluXGZzMjAgTEVG VCBQTEVVUkFMIEZMVUlEXH Bhcn0= GROSS DESCRIPTION (test t6ufxBGtABOpaPPbEQHePE code = 8372850896) ltszVcRPElsGPrS5Yharwj WBkhWS0cEK8pzSoqtKCozJ ZtYOYySsEyh1srw792mNEf i1dxSOIVohkeiNf5qVjuV4 0wd6R6VkfsI19kcNHlFYH1 WMEzJEMjsINgNYYeIXW6VS IvdQHmX9boNMKyDG6djwha RPcwUVbbTACsnRH8UWQkoI HkP9XsWCJdUOdiBZFyrmb5 EdUcNm9xxHNqgZwhJMadGz uruMtqb9PreVDxNEllNGGa BAZnCUnaLDPbA9BWVXNnYP V3Kic2TaGbCnATFTW0HaXb KaqfSCGWZEPhHYr2UdD0FP f6DcDELnFwMTElJSPjABKu QGUsTS4rFTplpSHvDTxxXt cdJCxmP931LTziSSRcC3Ic V2CdQPwfKUK0CYBkMySaDP CiYA8ZLiFzXLwiXZW1PYCf YRj2GOk8YD1CShEzDHYtXz hcGKl0ESWhFTs8JUsoOH4H ZGmyHYx4Zng6LwI6UUo3Yn BcXHQgMiBcXHNzIDMgXFxm yVXyNE3dqEnsGMHbRGEuVN phBVKjWpDpYC6fZAngwELv bCwgTGVmdFxwYXJccGFyZF ibLtHaAOScsQPMd6HfWJma EWKpYNZnxWLUa4QvJIicgH UjqimlpaYaPPAfG5CyvdIc WWEhEFRcrXwwFSEmh26kyK BmbHVpZDsgcHJlcGFyZWQg IXQbjTCaz2MnpmLvJM4kMB JcoBeiVtxdQ0owVKGmXTWp xEbsCIozzeUeUFzcTG3hfI bhBSDclXliDmesM8fyb5Is TLTayMUkDEgrTXGsyq5afU xcSEW7RHIfOuRhRQ2cVLA6 AdGfQoXoAuUps2oahEznv0 IsmYVhSU35CJEwaVQjOJA4 FX4koRtmCEA7 MICROSCOPIC DESCRIPTION u1asaVNzHMYkdWJgVBKtQN (test code = 3371) lmqcBzIAVllFIzQ9Lflhka PBokMN1nHH7mzMnaqTOanN XqAHXdHrCsw8ckv507cFNm k3cqWCARgywjfTe5iOvmW1 4zb2M3WqslW02rjLNzRKG4 UYUtHZWquEAwJXCfAKK6WC HskSIgP5ocRPFaQH8zrjtp VTruHEcsCDKghEZ7UFIvxA LgW7GyAGDdVUtaRPErajl4 WuKvTp1piWCyoWamJKxhPG JkXHBsYWluXGZzMjAgUGVy Hm3ijNMhDsykHMIfsJDjYK xwYXJ9 STATEMENT OF ADEQUACY Satisfactory (test code = 2757) Gross assessment was [facility]'s performed at (test code Medical Center, = 2777) Department of Pathology, [address] [place] [address], [place] [address], Technical component was [facility] performed at ([facility], = 2778) Department of Pathology, [address] [place] [address], Professional component [facility] was performed at ([facility], code = 2779) Department of Pathology, [address] [place] [address], [facility] HospitalCYTOLOGY2023-04-24 19:31:37Medical Cytology Report Case: [id number] Authorizing Provider: Marisabel Ho MD Collected: 0 12/30/2022 09:33 AM Ordering Location: [address] Received: 12/30/2022 01:05 PM Service Pathologist: Lilibeth Mello MD Specimen: Pleural, Left LEFT PLEURAL FLUID (CYTOSPINS AND CELL BLOCK): - NEGATIVE FOR MALIGNANCY - Benign and reactive mesothelial cells admixed with acute and chronic infla mmation Signing Pathologist Direct Phone Line: [phone] signed by Lilibeth Mello MD on 01/03/2023 at 7:31 [id number], [id number] y.o. F with h/o decompensated CIFUENTES cirrhosis [...] fixed in formalin at 13:50 on 12/30/2022 Performed.[facility], Department of Pathology, [address] [place] [address], [facility], Department of Pathology, [address] [place] [address], QwckxyK[facility] Hospital, Department of Pathology, [address] [place] [address], OLTMISEDHGJWT METABOLIC [id number] 07:49:18 Test Item Value Reference Range Interpretation [...] 1092) DATA TO CALCULA TE ESTIMATED GFR. Hand Salter ID - DBOperator ID - MARIOSpecimen slightly abahnehTIGDCKDJR4312-34-42 07:48:02 Test Item Value Reference Range Interpretation Comments MAGNESIUM (BEAKER) (test code = 1.7 mg/dL 1.6-2.6 627) Hand Salter ID - DBOperator ID - MARIOCOMPREHENSIVE METABOLIC [id number] 06:48:02 Test Item Value Reference Range Interpretation [...] 1092) DATA TO CALCULA TE ESTIMATED GFR. Hand Salter ID - HENRIQUE GSpecimen slightly [id number] 06:47:07 Test Item Value Reference Range Interpretation Comments MAGNESIUM (BEAKER) (test code = 1.8 mg/dL 1.6-2.6 627) Hand Salter ID - HENRIQUE GBody fluid culture + gram [id number] 17:31:13 Test Item Value Reference Range Interpretation Comments Result (test code = 6463-4) No growth Lab Interpretation (test code = Normal 67577-6) [facility] HospitalBODY FLUID CULTURE + GRAM [id number] 17:31:13 Test Item Value Reference Range Interpretation Comments CULTURE (BEAKER) (test code = 1095) No growth BODY FLUID CULTURE + GRAM [id number] 17:31:13 Test Item Value Reference Range Interpretation Comments CULTURE (BEAKER) (test code = 1095) No growth COMPREHENSIVE METABOLIC [id number] 06:01:19 Test Item Value Reference Range Interpretation [...] 1092) DATA TO CALCULA TE ESTIMATED GFR. Hand Salter ID - ADMINSpecimen slightly ictericCALCIUM, [id number] 05:59:45 Test Item Value Reference Range Interpretation Comments CALCIUM IONIZED (BEAKER) (test 1.04 mmol/L 1.12-1.27 L code = 698) PH, BLOOD (BEAKER) (test code = 7.44 1810) [id number] 05:59:10 Test Item Value Reference Range Interpretation Comments MAGNESIUM (BEAKER) (test code = 1.9 mg/dL 1.6-2.6 627) Hand Salter ID - DBRDIBVGYIHDZCF7552-67-12 05:59:10 Test Item Value Reference Range Interpretation Comments PHOSPHORUS (BEAKER) (test code = 2.6 mg/dL 2.3-4.7 604) Hand Salter ID - ADMINPROTHROMBIN TIME/[id number] 05:38:46 Test Item Value Reference Range Interpretation [...] mechanical heart valves.CBC W/PLT COUNT & AUTO [id number] 05:34:48 Test Item Value Reference Range Interpretation [...] Echo W/Doppler(CW/PW/Color)2022-12-31 17:29:02Ejection FractionSLEH ECHO HEARTLAB MKCKESSON [facility] HospitalANA T[facility] AND PATTERN 2022-12-31 12:46:54 Test Item Value Reference Range Interpretation Comments EMORY TITER (BEAKER) (test code = :160 1541) EMORY PATTERN (BEAKER) (test code = Homogeneous 1781) ANTI-NUCLEAR ANTIBODY (EMORY)2022-12-31 12:46:31 Test Item Value Reference Range Interpretation Comments ANTI-NUCLEAR ANTIBODY (EMORY) (BEAKER) Positive Negative A (test code = 418) Test performed by IFA method.MISCELLANEOUS LAB [id number] 09:11:47 Test Item Value Reference Range Interpretation Comments SCAN RESULT (test code = SEE SCANNED RESULTS [id number]) Protein, Total, Peritoneal Rqglo2532-54-10 08:59:02PROTEIN, TOTAL, PERITONEAL FLUID12/31/2022 8:59 AM CDTAspiring Minds DIAGNO[facility] AustinAlbumin, body [id number] 08:58:38Albumin, Fluid12/31/2022 8:58 AM CDTSAPEX [facility]ICAL [facility] LABORATORYReference Range: No Normals Assay performance has not been validated for this type of specimen.[facility] HospitalProtein, Total, Pleural Fqziz4050-26-02 08:56:30PROTEIN, TOTAL, PLEURAL FLUID12/31/2022 8:56 AM CDTQUEST DIAGNOSTIC [facility] Hospital of AustinLactate Dehydrogenase (LD), Pleural Bzitf6846-02-76 08:56:06Lactate Dehydrogenase (LD), Pleural Fluid12/31/2022 8:56 AM CDTQUEST DIAGNOSTIC [facility] AustinGlucose Pleural [id number] 08:55:45Glucose, Pleural Fluid 12/31/2022 8:55 AM CDTQUEST DIAGNOSTIC [facility] Albumin Pleural [id number] 08:54:47Albumin, Pleural Fluid12/31/2022 8:54 AM CDTQUEST DIAGNOSTIC INCORPORATEDLos [facility] Community HospitalMISCELLANEOUS LAB [id number] 08:54:04 Test Item Value Reference Range Interpretation Comments SCAN RESULT (test code = SEE SCANNED RESULTS [id number]) Bilirubin, Hrqrj0522-66-15 08:54:04Scan Fuvujg3112/31/2022 8:54 AM CDTCHI [facility] HospitalCOMPREHENSIVE METABOLIC [id number] 05:33:20 Test Item Value Reference Range Interpretation [...] 1092) DATA TO CALCULA TE ESTIMATED GFR. Hand Salter ID - marioSpecimen slightly zaoqpslZARASQEGZ2107-61-85 05:31:31 Test Item Value Reference Range Interpretation Comments MAGNESIUM (BEAKER) (test code = 1.8 mg/dL 1.6-2.6 627) Hand Salter ID - rxnivBGDYHRACXO6081-92-22 05:31:31 Test Item Value Reference Range Interpretation Comments PHOSPHORUS (BEAKER) (test code = 2.4 mg/dL 2.3-4.7 604) Hand Salter ID - marioPROTHROMBIN TIME/[id number] 05:24:04 Test Item Value Reference Range Interpretation [...] mechanical heart valves.CBC W/PLT COUNT & AUTO [id number] 05:23:22 Test Item Value Reference Range Interpretation [...] PERCENT (BEAKER) (test code = 2801) CALCIUM, [id number] 05:07:52 Test Item Value Reference Range Interpretation Comments CALCIUM IONIZED (BEAKER) (test 1.05 mmol/L 1.12-1.27 L code = 698) PH, BLOOD (BEAKER) (test code = 7.45 1810) Amylase Peritoneal [id number] 18:35:20 Test Item Value Reference Range Interpretation [...] specimen).This test has been modified from the home mission worker's instructions and its performance characteristics were determined by [facility]. The laboratory is regulated under CLIA as qualified to perform high-complexity testing. This test has not been cleared or approved by the U.S. Food and Drug Administration. The reference intervals and other method performance specifications are unavailable for amylase in peritoneal fluid. Comparison of this result with the blood amylase is recommended. [facility] [id number] 18:35:20 Test Item Value Reference Range Interpretation Comments AMYLASE, PERITONEAL FLUID (BEAKER) 17 (test code = 1727091) Amylase activity in peritoneal fluids of non-pancreatic origin is often less than or equal to the amylase activity in blood, whereas elevated amylase activity has been reported in fluid of pancreatic origin (five-folds or higher compared to contemporaneously collected blood specimen).This test has been modified from the home mission worker's instructions and its performance characteristics were determined by [facility]. The laboratory is regulated under CLIA as qualified to perform high-complexity testing. This test has not been cleared or approved by the U.S. Food and Drug Administration. The reference intervals and other method performance specifications are unavailable for amylase in peritoneal fluid. Comparison of this result with the blood amylase is recommended.[id number] 18:13:56 Test Item Value Reference Range Interpretation Comments FERRITIN (BEAKER) (test code = 273.41 ng/mL 361) Hand Salter ID - ADMINHEPATITIS B SURFACE [id number] 17:41:49 Test Item Value Reference Range Interpretation Comments HEPATITIS B SURFACE ANTIBODY < mIU/mL <8.0 (BEAKER) (test code = 647) Hand Salter ID - ADMINHEPATITIS A ANTIBODY, [id number] 17:41:49 Test Item Value Reference Range Interpretation Comments HEPATITIS A IGG ANTIBODY (BEAKER) Reactive Nonreactive A (test code = 2797) Hand Salter ID - ADMINALPHA FETOPROTEIN (AFP), TUMOR [id number] 17:40:44 Test Item Value Reference Range Interpretation Comments ALPHA-FETOPROTEIN (BEAKER) (test 3.2 ng/mL <10.0 code = 1094) Hand Salter ID - ADMINHEPATITIS B CORE ANTIBODY, [id number] 17:40:44 Test Item Value Reference Range Interpretation Comments HEPATITIS B CORE TOTAL ANTIBODY Nonreactive Nonreactive (BEAKER) (test code = 497) Hand Salter ID - ADMINHEPATITIS B SURFACE [id number] 17:40:43 Test Item Value Reference Range Interpretation Comments HEPATITIS B SURFACE ANTIGEN (2) Nonreactive Nonreactive (BEAKER) (test code = 2585) Specimen is considered negative for HBsAg.HEPATITIS C [id number] 17:39:02 Test Item Value Reference Range Interpretation Comments HEPATITIS C ANTIBODY (BEAKER) Nonreactive Nonreactive (test code = 367) Hand Salter ID - ADMINIRON, TIBC, % SAT. (WITHOUT FERRITIN)2022-12-30 17:19:01 Test Item Value Reference Range Interpretation Comments IRON (BEAKER) (test code = 547) 81.0 ug/dL 40.0-160.0 TOTAL IRON BINDING CAPACITY 108 ug/dL 250-450 L (BEAKER) (test code = 769) IRON % SATURATION (2) (BEAKER) 75 % 20-55 H (test code = 2593) Hand Salter ID - ADMINCOMPREHENSIVE METABOLIC [id number] 16:25:30 Test Item Value Reference Range Interpretation [...] 1092) DATA TO CALCULA TE ESTIMATED GFR. Hand Salter ID - ADMINSpecimen moderately ictericLACTATE DEHYDROGENASE (LDH) 2022-12-30 16:17:54 Test Item Value Reference Range Interpretation Comments LACTATE DEHYDROGENASE (BEAKER) (test 246 U/L 125-220 H code = 635) Hand Salter ID - NTEBJVHMRKWWLD4101-29-60 16:17:53 Test Item Value Reference Range Interpretation Comments MAGNESIUM (BEAKER) (test code = 1.8 mg/dL 1.6-2.6 627) Hand Salter ID - [id number] 16:17:53 Test Item Value Reference Range Interpretation Comments PHOSPHORUS (BEAKER) (test code = 2.7 mg/dL 2.3-4.7 604) Hand Salter ID - DGYGSIKNIM-4-LOEPJCNACOY0064-04-20 16:17:14 Test Item Value Reference Range Interpretation Comments ALPHA-1 ANTITRYPSIN (BEAKER) 61.00 mg/dL 90.00-200.00 L (test code = 502) Hand Salter ID - ADMINPROTHROMBIN TIME/ISH3668-06-29 16:09:26 Test Item Value Reference Range Interpretation [...] mechanical heart valves.CBC W/PLT COUNT & AUTO [id number] 16:06:15 Test Item Value Reference Range Interpretation [...] PERCENT (BEAKER) (test code = 2801) CALCIUM, [id number] 16:03:36 Test Item Value Reference Range Interpretation Comments CALCIUM IONIZED (BEAKER) (test 1.07 mmol/L 1.12-1.27 L code = 698) PH, BLOOD (BEAKER) (test code = 7.38 1810) RAD, CHEST, 1 VIEW, NON [id number] 15:04:00SAURABH NICOLE MD Reason for exam:->post left thoracentesis R/O pneumothoraxShould this beperformed at the bedside?->Yes [facility] : 1965 Sex: [...] Enriquez Verified Date/Time: 12/30/2022 15:04:41 Reading Location: [facility] Radiology Reading Room U/S, [id number] 14:59:00SAURABH NICOLE MD Labs to be ordered:->Body Fluid Culture (w/Gram Stain, C\\T\\S) Labs to be ordered:->Cell Count Reason for exam:->abdominal pain, cirrhosis Should this be performed at the bedside?->No [facility] : 1965 Sex: UFINAL REPORT Ultrasound guided paracentesis. Clinical History: Ascites. Sedation: None. Cloth Washer Back Tender: Danuta Taylor PA-C Grain Buyer: None. Estimated Blood Loss: < 1 cc. [...] was achieved with 2% lidocaine, a 5 [place] one-step catheter was advanced into the peritoneal cavity under ultrasound guidance. After completion of drainage, the catheter was removed. There was no evidence of complication. Impression:Successful ultrasound guided paracentesis. Signed: Lee Diaz MDReport Verified Date/Time: 12/30/2022 14:59:31 Reading Location: [address] Ultrasound Reading Room Body fluid cell count with hjbyensqgabt8766-07-96 14:42:21 Test Item Value Reference Range Interpretation Comments Appearance (test code Hazy Clear A = 9335-1) Color (test code = [place] Colorless, Straw A 6824-7) RBCs (test code = 34838 See_Comment H [Automate d 27832-2) message] The system which generated this result [...] See_Comment H [Automat ed (test code = 18640-1) messag e] The system which generated this result transmit joanna reference range : <=5 /cu mm. The reference range was not used to interpret this result as normal/abnormal . Adjusted lining 63 See_Comment H [Automated cells/Others (test message] The code = 88035-6) system which generated this result transmit joanna reference range : <=1 /cu mm. The reference range was not used to interpret this result as normal/abnormal . % Segs (test code = 29 % 88137-5) % Lymphs (test code = 39 % 24719-3) % Monos (test code = 31 % 41876-9) % Eos (test code = 1 % 73463-1) % Baso (test code = 0 % 44052-5) Container Body Fluid Sterile Vial (test code = 2873) Lab Interpretation Abnormal (test code = 25492-5) [facility] WITH [id number] 14:42:21 Test Item Value Reference Range Interpretation Comments APPEARANCE FLUID (BEAKER) (test Hazy Clear A code = 510) COLOR FLUID (BEAKER) (test code [place] Colorless, Straw A = 511) RBC FLUID (BEAKER) (test code = 43086 /cu mm <=1 H 513) TOTAL NUCLEATED [...] Sterile Vial (test code = 2873) CT, [id number] 12:35:00SAURABH NICOLE MD Unlisted Reason for Exam - Click Yes and Enter Reason Below->NoProtocol Please Specify:->Standard ProtocolWill this procedure require oral contrast?->No [facility] : 1965 Sex: UFINAL [...] 12:35 PM BODY FLUID CELL COUNT WITH [id number] 11:08:18 Test Item Value Reference Range Interpretation Comments APPEARANCE FLUID (BEAKER) (test Cloudy Clear A code = 510) COLOR FLUID (BEAKER) (test code Red Colorless, Straw A = 511) RBC FLUID (BEAKER) (test code = 79110 /cu mm <=1 H 513) TOTAL NUCLEATED [...] Vial (test code = 2873) Protein, random [id number] 22:24:47 Test Item Value Reference Range Interpretation Comments Protein, Urine (test code 47 mg/dL 0-14 H = 2888-6) EDILBERTO (test code = EDILBERTO) Hand Salter ID - ADMIN Lab Interpretation (test Abnormal code = 35479-3) [facility]PROTE[facility], RANDOM [id number] 22:24:47 Test Item Value Reference Range Interpretation Comments PROTEIN, URINE (BEAKER) (test code = 47 mg/dL 0-14 H 1569) Hand Salter ID - ADMINCreatinine, random [id number] 22:24:46 Test Item Value Reference Range Interpretation Comments Creatinine, Ur 176.5 mg/dL (test code = 2161-8) EDILBERTO (test code = Reference Range: No EDILBERTO) NormalsOperator ID - ADMIN [facility] HospitalCREATININE, RANDOM [id number] 22:24:46 Test Item Value Reference Range Interpretation Comments CREATININE URINE (BEAKER) (test 176.5 mg/dL code = 375) Reference Range: No NormalsOperator ID - ADMINUrinalysis w/Ldhmgyjingz4802-99-94 22:11:30 Test Item Value Reference Range Interpretation Comments Color, UA (test code Yellow = 5778-6) Clarity, UA (test Hazy code = 5767-9) Specific [place], UA 1.046 1.001-1.035 H (test code = 5811-5) pH, UA (test code = 6.5 5.0-8.0 5803-2) Protein, UA (test 70 mg/dL Negative A code = 85598-8) Glucose, UA (test Negative Negative code = 365) Ketones, UA (test Negative Negative code = 2514-8) Bilirubin, UA (test Negative Negative code = 13531-8) Blood, UA (test code Large Negative A = 63003-7) Nitrite, UA (test Negative Negative code = 5802-4) Leukocytes, UA (test Negative Negative code = 5799-2) Urobilinogen, UA 0.2 0.2-1.0 (test code = 46658-2) RBC, UA (test code = 138 See_Comment [Autom ated 57275-1) message] The system which generated this result [...] . Bacteria, UA (test Rare code = 96136-2) Mucus (test code = Few 8247-9) Squam Epithel, UA 3 See_Comment [Automate d (test code = 38714-2) messag e] The system which generated this result transmit joanna reference range : /HPF. The reference range was not used to interpret this result as normal/abnormal . Specimen Source (test Urine, Clean code = 2795) Catch EDILBERTO (test code = EDILBERTO) Hand Salter ID - [auto]Hand Salter ID - tech Lab Interpretation Abnormal (test code = 65237-9) [facility] W/ [id number] 22:11:30 Test Item Value Reference Range Interpretation [...] (test code Urine, Clean Catch = 2795) Hand Salter ID - [auto]Hand Salter ID - [id number]8 17:38:31 Test Item Value Reference Range Interpretation Comments PROCALCITONIN (BEAKER) (test code = < ng/mL <0.05 3036) SEPSIS RISK (ng/mL)Low: 0.05-0.50Intermediate: 0.51-2.00High: >=2.01LACTIC ACID, [id number] 17:22:42 Test Item Value Reference Range Interpretation Comments LACTATE BLOOD VENOUS 2.07 mmol/L 0.50-2.00 H Specime n slightly (2) (BEAKER) (test hemolyzed code = 2872) Hand Salter ID - BSSpecimen slightly ictericRAD, CHEST, 1 VIEW, NON [id number] 16:10:00SAURABH NICOLE MD Reason for exam:->evaluate left pleural effusionShould this be performedat the bedside?->Yes [facility] : 1965 Sex: FFINAL REPORT TECHNIQUE: Frontal view of the chest. INDICATION: evaluate left pleural effusion. COMPARISON: None. FINDINGS: LINES/TUBES: None. HEART AND MEDIASTINUM: Cardiomediastinal contour is within normal limits. LUNGS: Patchy left basilar opacity. Mild vascular congestion. PLEURA:Moderate to large size left pleural effusion. No [...] 31 pg/mL 0-100 (test code = 700) Hand Salter ID - BSCOMPREHENSIVE METABOLIC [id number] 14:18:45 Test Item Value Reference Range Interpretation [...] not appl icable for dialysis patien ts Hand Salter ID - ADMINSpecimen slightly ictericPROTHROMBIN TIME/[id number] 13:44:11 Test Item Value Reference Range Interpretation Comments PROTIME (BEAKER) (test code = 20.8 seconds 11.9-14.2 H 759) INR (BEAKER) (test code = 370) 1.84 <=5.90 RECOMMENDED COUMADIN/WARFARIN INR THERAPY RANGESSTANDARD DOSE: 2.0 - 3.0 Includes: PROPHYLAXIS for venous thrombosis, systemic embolization; TREATMENT for venous thrombosis and/or pulmonary embolus.HIGH RISK: Target INR is 2.5-3.5 for patients with mechanical heart valves.[id number] 13:43:55 Test Item Value Reference Range Interpretation Comments MAGNESIUM (BEAKER) (test code = 1.8 mg/dL 1.6-2.6 627) Hand Salter ID - ADMINCBC W/PLT COUNT & AUTO [id number] 13:21:51 Test Item Value Reference Range Interpretation [...] PERCENT (BEAKER) (test code = 2801) Prepare [id number] 23:54:00 Test Item Value Reference Range Interpretation Comments Unit ABO (test code = 2625129) A Pos UNIT NUMBER (test code = [id number] 934-0) Status (test code = 1730097) [place]_TIMEINCHART Blood Bank Product (test code FFP = 2263) PRODUCT CODE (test code = D4851Z11 933-2) [facility] [id number] 23:54:00 Test Item Value Reference Range Interpretation Comments Unit ABO (test code = 2795577) A Pos UNIT NUMBER (test code = [id number] 934-0) Status (test code = 7983013) TX_TIMEINCHART Blood Bank Product (test code FFP = 2263) PRODUCT CODE (test code = B4938C70 933-2) [facility] zpeyan3593-56-56 23:54:00 Test Item Value Reference Range Interpretation Comments Unit ABO (test code = 0777414) A Pos UNIT NUMBER (test code = [id number] 934-0) Status (test code = 4820984) TX_TIMEINCHART Blood Bank Product (test code FFP = 2263) PRODUCT CODE (test code = I0242E61 933-2) [facility] HospitalFine Needle Aspirate by Bpsgwkgcc8675-42-79 09:58:30 Test Item Value Reference Range Interpretation Comments Case Report (test code Medical Cytology = 104) Report Case: [id number] Authorizing Provider: Arcenio Lazo Collected: 11/30/2022 08:48 AM Ordering Location: [address] Received: 11/30/2022 03:09 PM Service Pathologist: Simon Corona MD Specimen: Lymph Node, liver, marguerite-portal lymph node biopsy via FNA DIAGNOSIS (test code = d0sypHUjNMFaa3wfCLEktI 3220) FuZzEwMzNcZnRuYmpcdWMx IHtccnRmMVxlcGljMTAyMD OvTN6wrSnwaIn8oHnbXQTb btK1wENtBMgsv1nbGUL3k8 nqdiowBGYjEQxoQt1ylCAj qSktUsQfZMXwWCd2rC67KF GknQ4qoXToBHg6XQVmpWTc zyFuLyMtAHXjeIFziNG3MG NeQD3iolkgQQzvNZstSTEb mgD1DJPxhZAsH4WuTEVbBE 6bldtgJQF3VMejMPOsNTE9 AfYyMHWmc7Nzmhd9WsIkuS FyZFxwbGFpblxmczIwIExZ GUPQUC0MXYXtSAyCYzVCST XEWfnnYP3JSUXPHCIUOU7L V7jsWdjGWFIZMYOjF3uKR8 YOPS2JTZBUXKMIECwEQVZC Z1GGTChckQSeGCTqHL7tEd AVXJMTEyKcIo9LDK8EINyK JgZSADOZURoVIs8axKKrJG VrFS2qY2SFNgSqHXjRRPtE OSPsBSmTX5NERzttOLN9q3 xydGYxXHNzdGUxODAwMFxh bnNpXGRlZmxhbmcxMDMzXG F9ldGdWTDgCXlqPPQwQIoe Bn7aiQQsfQzcUuPfZGFxq7 tqjnZTsanvsGz8n0qyGNOr NjC2eIHmELodX9zgfbJoqS CqDTLiHAz1kA48ZAEqgL6c wJBuNTmvgpFnTlA6KTfhZA BkChS6BWPjiLYxFXTuM1ih ZWQwXGdyZWVuMFxibHVlMC O9zNrfi2F3mQDyrUFeyXzc PzMiUkGkYbTCi1QdCPr4zJ gxW8TfJKCwJyC4iZNdUKQh GDdgNTDiIMOcfcI1lL25SV doyyY9hOCtp1Ptc51gk339 kJ7qtIAbRKW9BXKhACWtyK RiRIWsEDV0YJSbiIZlF2ya GGDvAT1pqjhcYMqwDPoqJS NqaUU5REWxzJAqH9HvLAMs FHpmXNOxeej1QsFfGa6wtY AsaIpmGNsln0yjx5muzKVn Teg5RWPvBdShWjdfPVawx6 Doc3bcJOZklj2kACB6kUOd pKvmi8U4iXQhJUMgdDTsDQ QyYU1awTCmRVWuqP1cejvq XHBnYnJkcmhlYWRccGdicm SjNt3knTuySER5NPyfF8dr yX4nJeZ6DEupK5jpoK6rHB m8PVldEZRmkLX6qdL7JCLe dIHyC4HgmN9vFRViWF2isq n4e0foAED1QKjnPZOjOdH5 toX0ARGkyFVnGNHsuFmePZ wqz112ZOW0FmTuOCFur9Ee S9BbwDshP06qcBflJ15gAN DjbZnxwN9jjMjkwO3qWjXs OtLhWUaifSbvRJ4yTDRiN1 oamBQhYQSxRTHzE0rxVfSp qH1jaHnbJMwicmCzCQMyXs c6TGCczHDpVKKjLkc5OKLz JWAfG23driolQAQ9vM6jm8 tsu1OaBFtkHYX7RYPdi43u JPashyF3BMbpDb71XVmaOX S6CZbyGNO9dU== CPT Code(s) (test code g4kgmNRhRCXlmIYzXSOsMB = 0067) cdfsRkLGDlvXNfI8Odkvaz CFjgXX7rJR3ycQlfuITxhN BsTJUwQoKrw7mve391qDTr r4flCVEKnfjtpEg7uTpuO4 4nv6H2UfcpW33tfPElVHL0 YGLcSDJxnZRrYAJpWIB6DP QpbVKbQ6wjKZQdIO1wykoa DLlqFAbzAYMphRR0FTAxfZ UyV3EsWOBtJXgkXNWynxc7 VcAkXs0ydEHajPatAUwgPP JkXHBsYWluXGZzMjAgODgx SuHyMNo8IoN3CZEdhd4= CLINICAL DATA (test t1wplKJsHQQcxWRhGWWoWM code = 3355) rrgcPwXSIamQKlE1Jjnexw BRwxLB8lMR8crFpqaGGfyB UgOWRcLfMsy8ghv612iHNz s1cdTKDVeqmigVr1cQnrB8 2dj0J3AevgN12vsQVrJIC5 IESzCJZbhMIaKTQrSMC5BF BhpLPoO1aaFHTaLY8djesx YHegQKvyFTUmnEL0IJWdpA MrM2ZyKGXaZMjmGEWygkm1 XxCfXm7xzENppVfaKRhaOW JkXHBsYWluXGZzMjAgNTgg vX9fExp+Rlx+y2l9iFRUGW UBOPUrtjIfn6Cieekme8px JGHnQKDvivHvXMR8ngILX9 jhw0g4kOW2jPUmwmVcLCBx ZAKdeH2zJA3qSIFXFFRoED luIHggNCBkYXlzIGFuZCB3 DXXrHv45mnZmbU4fxLI9TK Zrh1twzKtgPXRtSJIsh56l AYDlJAHmdaQrgZ1gCFI6e6 ZhoIhfZ6Uqv3klDP6krF8l gZStsWDbxFKzo20woG6oU2 bxIjaebIu0qvN1vtUgw2Ak mpSqXHE7dvTCU8bUHpGit0 AtWIeKWv9cvfvuJWU8 SPECIMEN SOURCE (test x3fwgMIvDXDibATcHYVjKC code = 3377) ubuxPnLCZqfWHqS9Qtzyke CStuOR7lIW7idSckvNRqiU KpQMDgLgOcg3hds296mNSu d8wbKWUGwnvoiTv5cQkwB7 7tz4S6AkgxN92mvEVvBWI5 ILBtZBQjwIBqRRAtMBW0RT XplJWbG4euZYDaLZ6jbpwc EPxtRKyaPTIkgJR9ZECdgO OlF3FjYEHxWEzhIFIrsde4 YbUoFr6chNRlvAgyDDpuQO JkXHBsYWluXGZzMjAgTFlN BQyrRv6AGBobGErXDYKdOG DENragAP4GYTDPHVBCL8SD WSBGTkFccGFyfQ== GROSS DESCRIPTION (test r6wqhNHkKQCuoTLBRRIeFX code = [id number]) RxVE6ptVtocPq7bRzkGOOx dcJ2pIPvTHcbw2beZUQ9z8 grlhMEZqinTUCcGC7uRHtz KLRiWP1fFnFtQTXpXqPiHJ BhcGVydzEyMjQwXHBhcGVy cPD8THPsPI4ehgnrPKmhSB jlGMWghmK7XTPmtELmR3Pi MTChRN5vijkqGWK0XSBTNj whGw8oiOUtwHjzVqGxCfCg YXJzZXQwXGZuaWwgQXJpYW m1fY1VAvmtZTT9TNYNPdok BzfdeKezr1UzuDKdRLQdZN xcaWQgNTEwMDAgXFxkYiBP ClLhAvV8RRKpMhA6CoG9KO u0NACGKTEjXWUjCiFlZFC5 LXw8PZHkJD4bMHupeZTdLG jnKyitMTkdF543LDjeCBWb P4XnA5KnKPzrQmLbXGvdLD BlZOQlWYjkIMQuN3MTECAr XFVoZEZ3FGGkLVa5KOjsE6 VRGZRcYVNxBxltAlS1JcV7 EFt9BXZYLo4kZrx8QPh4UW M8XLB9UFf3HMuvjZKnGZce w5NrNhHgMRQnPLiepcU2KU XmluXnXVreyYgffO8kYdWi AuSZZoIGmH7eaWSId6AiSR ZrdbGDEmvzPVIvLP9QPUCe XWctGFAcVnZilZKxT4teZP ZrH52lv4XTm2CgZJ9ZDMe8 chEtdumvmW2aTDYrscApJO pcZnMyMCBSZWNlaXZlZCAx FKRjdKJcqW2lW2f7q0RtU8 ggcmVkOyBwcmVwYXJlZCA0 LCG4lO1wrHgeqtfuS9ShqA TjyO4aakMlBQJjIQeeLLdq CTZfb0ZsBPYmSHNzXYGeke Uvm5UiOMwrtuOjlSDcFMzh NSBvbiAzLzIxLzIwMjMpXH BhciANClxzYTMwXGVwaWNY o8ObVXRHZapwvTctXiVwlQ TdEbN3BEBqjJYtHMG7GI1u yTpoUZSbY6IxO9CotpO3KK ZzmjVIOvbhWDGwYN6HOSMc MjIgDQp9 MICROSCOPIC DESCRIPTION a3okjTBgUHBdcLSgXNWmOV (test code = 3371) yzulVwNGCaoPIbK1Wbfrvu SOlaTR9jRI8dmAdeaTRxrA OmBPItCbLex2jck801kSRm t1awDJAEwyuaeEh3qMhmX4 9ko0Q1HyqnQ54gqKVkUWD3 EOGxXEMmtMOeGRWqZIH1UV GceXXpV1fiNAJfFC3eagmo ZLxsARcqOXZboHX3EOIpzU DbY8GpVGOqILwbJOUwkhw7 XeJzDr4mxBQyeOsxWBkmNM JkXHBsYWluXGZzMjAgUGVy Bs8fjBWmRbzcLMLvrUHdWG xwYXJ9 Gross assessment was [facility] performed at (test [facility], = 3684) Department of Pathology, [address] [place] [address], [place] [address], Technical component was [facility] . Dinesh's performed at ([facility], = 1651) Department of Pathology, [address] [place] [address], Professional component [facility]'s was performed at ([facility], code = 2779) Department of Pathology, [address] [place] [address], [facility] by Ctjdwitxl9482-46-50 09:58:30 Test Item Value Reference Range Interpretation Comments Case Report (test code Medical Cytology = 104) Report Case: [id number] Authorizing Provider: Arcenio Lazo Collected: 11/30/2022 08:48 AM Ordering Location: [address] Received: 11/30/2022 03:09 PM Service Pathologist: Simon Corona MD Specimen: Lymph Node, liver, marguerite-portal lymph node biopsy via FNA DIAGNOSIS (test code = c0juoPLlQUZmk3yuRUCbgG 3220) FuZzEwMzNcZnRuYmpcdWMx IHtccnRmMVxlcGljMTAyMD DlVR8sfTrksOx5mKlcFOQs cdS6oXBoMOdmj1wcPGT1m8 jftvyaWMMzVChtQv0ulYCh yBkwZaVnCFDmJYi1kH34XU EenG0iuHVlOIz3VXYroRSe hnKeZgIgIHAvySFdqAX8IB JeYB0ioggwWGndCKlkLXEz qgN8EAWfqLApA0PzBBOoSZ 9bxwwwBJK1HJxjUZZdJOP9 McVzCABgx5Afssd6QzNbrM FyZFxwbGFpblxmczIwIExZ SGCLZX6HVQVlMJvPMiYPPG UIFnhxVO6LWMKOHPJNUV5D R4xnPqwESXVPWBAwA8rMI8 QVMJ7VQXZIIYPLUJeWDZFI M1TFCQclxYCwSGBvDX1qHu RXPDMZOrLrPs1MME9LDVgQ TnWCPTVUNEoMSb0qkQMzYK UmQP7aX9PRApAxKToDSAcY QEKkONqWN8VDFarpBFG1i4 xydGYxXHNzdGUxODAwMFxh bnNpXGRlZmxhbmcxMDMzXG T5seUpUWUfNMhpAPIiOVuw Bd3xxLCdeYqdHlByUYFgu4 jezvWVkntdtJj3q8xfCUVj YhP3cQRiQMyrC8cognCmeX BtVOKwJYa5nZ01WACggP6j zCSgURsmexJgIlE2OXcuOQ LvHyO3RDZzyLDzAGWqB7zn ZWQwXGdyZWVuMFxibHVlMC W0tCdrk1V6gCAytGUheLkg FpEoYkXsIbKEz9FnODz0mN tjD8MwHQDnUnQ8qRHhNFDa BRabWLGzQWQdhxR7rU13GL ikmdL4oQVvf5Sga47hd259 yJ1oqLMwXBB8RLMkGIMovB UhERHaPEB6XCVglFPfW4du FSMpHC9tpkhzBRfmRMmtPD QcaLM9QLFmvRYzR2TnRZTp HKqkCMWlnqh5KjFsWe0opJ AkcAnsHRdzv8agz1ikxOAo Rgc6IOFuIgBjBwysPXtka8 Pep7iyLZZbrm3eTQW8xMAp tDgzi2N1lDLrTPStrOPmML GgCR3jrECxXZFevL3skhqu XHBnYnJkcmhlYWRccGdicm TmKp4vhHdmSIB6FPwrV8nd oI7aOvL2MHsyT0bzyA8fTI h5BYbtNBPciOD0moZ2OMYr xRIsQ6TfpP6wJEIeMU3eqd s2k6egOWM8WClwASXwWgF6 tzF2BYSnxRBjPJMucSexVZ ktm352BTT2McWlNSUvy9Bh P8ImvEmwJ71wmKndJ22cYJ HfyDacnB0avVuumO7oFvAr RiEhIZjsyCqmWP4lCQJvW6 akmZDoDGRsIOHqC0vpMaFj aG9izLkoXJhzieIeVKVaEb q0UKUlgAIuDAJvFqa2TLXp QCApD15tuhkrPWQ2iZ7pc0 slo9PcZTboGCZ8GPHhs96m VAulvlU6GPxlXr07DYdtQC F2CLsuLST0cA== CPT Code(s) (test code l6jeeRSyIHEarVLhXOGrSM = 3357) lemkIaZHAxqNScI9Mrxfvc CTmkKC5uVS6eeOoyrSNxuE UxNWScBxAtc8hkq053eEDn l8nlYIMFoowocFr1rCfhG5 9qe1G7YxvrS35grJIxAXF6 FLFtVBRwhLJtQSJrHID0NN OvcUVrA1ndBNVdXA1xtqyg HAbpRNwoEWKncHD3JUWtfG UkO3BfMFWqSLypMDMrgus3 DsYoQt5lmCHjmGuiJGtrYB JkXHBsYWluXGZzMjAgODgx WvKmDIr2VyY4NSSjnl0= CLINICAL DATA (test n4illTPuMGYfqIHkRFVeXC code = 3355) tlnvOmXMRudYYeE2Mlpgox FVjpQH1uYX4wnSoyeJUuxG ViTBSkSzGhv5yvg794qFKj h2pgHPDHncoxgUv0pYncP7 5kb8D5ZgigD72paBNvWHC8 FJKvRPLmuIVeJOLkKEI1TM ZruJRvQ5paXQLeYD4yydmr NDyaQRsbSVBtoSP9HMAqsD FsU5IwUMQpBWrhJJEgxyc9 ItFuHp1gdTBvkCanYCeoNG JkXHBsYWluXGZzMjAgNTgg aE2vZzg+Rlx+l1t8nFQZEK QNNFXgiiSpw8Ukqeose3jl IESbPRPgdxEqRGY5oqSYX1 hwc0y4pSV1xDFmkdYhVUCy ACDfpN0kMY0kYWTUYSBlLV luIHggNCBkYXlzIGFuZCB3 JFPyQl28msGmjV8zvLV1YF Faz2ydsPetRBBxZUMbq10y DFAfLIHylrKpqD3vHWR8s1 BtqVezK9Gbz6scKV0xvT3h eDAfzCDsyZCqi23otB6bQ8 qlVyjdoZe4usP3ybVnr5Vx plYmGOA8tsXGV0kCYiXjc2 UbBOaJQg9zyaibYII2 SPECIMEN SOURCE (test i6tauAFaLZGfgSJqLXOoCS code = 3377) scecQiJFAglKDqX0Zvehkj ZCnbBB5vGO2rcTayaZVjpX CcNFHgIcRqp0jir365hKYx p2lqKJESraeawWs7fFxtK9 6bp4J9WszuM61mtEKuAPF5 XTOrZARarBGgHDQfPYF7CP YatCJeN8dpSZIzTC8ucagn LPhjRXtxXHSjrWM4GQHuwH ZsK0VlQCOgGGfdZELfgmq2 HvRrYb1moCZqoEodUCcmNK JkXHBsYWluXGZzMjAgTFlN ZXzzJl3UDZjaXHwJHQGsMH ZQPsjzUF2TGHLSZYABO5BL WSBGTkFccGFyfQ== GROSS DESCRIPTION (test g3jezZDqSUFfgIPVJDOxXC code = [id number]) CaIC9fnPyoyJt1mHjrRIXf cgS5gFVjKSokp3goANB8o0 hphtYPJobmLMRkNS5nIHnj LSLyXU6rRwRaUTToFiWlNX BhcGVydzEyMjQwXHBhcGVy hQG5NBJsQY8mxrppNPsyJQ jpRFOqdjP6NJEdtLDjU5Ai LQAbAC8ybcryEIV3HPZMAi whBz8kbORmwDugMePjYoEn YXJzZXQwXGZuaWwgQXJpYW v1nM8IMbwcTDK1WMTMTyse CsqkcAsmq6EjnXKmSPXvBP xcaWQgNTEwMDAgXFxkYiBP HyCsStP7DBCzPsV8ZhW8BO a1QSWIDYYtCFXwYtBxGTF6 FRz6AVWjMW8dDKishUPaNB osGqxzKKszT943MCwoWKRb M1JcU7IgCElnKgThRKpwGM FxAROnQGaiRPKkT0HPZKIn KCJmUGH1RBIfUQg6ZIksE5 DDTTMvBLDxHluiLzJ0DlM7 FKw3IHNIWc7fVcb3XEi2IG V1ISP0RBb6EYmzwYGqIYbz r2LxYrOkUAWpNXfjrzX0BC XnzyZaFFihfUiwqU9iLtWv XaVUWhJWuM5ngUGQj2KePR FrvcHVSoaeHQWcOR4JOZEl OXvmUPMhOeZqrAVtT9fgZJ VtD52pv3ZXx8HeGI7THSd3 lxEyswztzN9zWAHjitKxMY pcZnMyMCBSZWNlaXZlZCAx QCBhfMBnpM6gS4k9y6BxF6 ggcmVkOyBwcmVwYXJlZCA0 NNG5aP6ykVyfkqpgT4YrzR HhsC6keaExRHTfLAvvDUsc BUPsy8LuEKQqSEJdNGXxky Edz5RsVJrgnsWqmEIaXDso NSBvbiAzLzIxLzIwMjMpXH BhciANClxzYTMwXGVwaWNY v7JiEYENPcymzFvcGeYrqK NbRfE9QNJjbULaDPM3EC3w yUtfBLTdH3EuC0YjvkN6ZW KkkiRQQhrkBPElIT6UTCLh MjIgDQp9 MICROSCOPIC DESCRIPTION w6aaoMWvEMBuvGPuIHDlNQ (test code = 3371) dbhjXtQOQdhQKpM4Sbjlju QZubYM2xVV8esKssyWRenY KkHWEhWfOkx1fto890wLFb i4obAMZAltoobVx2eObyY8 6eb9C6HduqU61fkWUdDHH0 EMVmRDGsnAIkILOeIJR0QR CmnMJaI2vpYNRiIM5cphxv ZIucRImlMJEdrJV5TTDbvG VrC0CsEIHhAGafCNGrett3 RdTaOl0keZKexKykHUmyWV JkXHBsYWluXGZzMjAgUGVy Ir1xiNBgMsbzZKEvvEZgMC xwYXJ9 Gross assessment was [facility] performed at ([facility], = 2777) Department of Pathology, [address] [place] [address], Technical component was [facility] performed at ([facility], = 2778) Department of Pathology, [address] [place] [id number], Professional component [facility] was performed at ([facility], code = 2779) Department of Pathology, [address] [place], [place] [address], [facility] by [id number] 09:58:30 Test Item Value Reference Range Interpretation Comments Case Report (test code Medical Cytology = 104) Report Case: [id number] Authorizing Provider: Arcenio Lazo Collected: 11/30/2022 08:48 AM Ordering Location: [address] Received: 11/30/2022 03:09 PM Service Pathologist: Simon Corona MD Specimen: Lymph Node, liver, marguerite-portal lymph node biopsy via FNA DIAGNOSIS (test code = [id number] 3220) FuZzEwMzNcZnRuYmpcdWMx IHtccnRmMVxlcGljMTAyMD CfUR0bhJeorNx6rLszCYVi waO8yCAvGVcxv5fpPIC7a1 fxwaaaVDDxAGuzRs6qgAOc rCkjYrEfOGDiZQa2vM27EH TleO3qnFIlKJy6IIKfqYZi clUdPsCcGEStaUPfoUY9QY DvXP3fnyrrWWsuCMgxREWn cvZ8CACfxURhQ6QeOYLwZZ 9fzlqxFKY9NUceSQUuUUG5 NeBdBOWyl4Dqxcb8KaLveX FyZFxwbGFpblxmczIwIExZ MFMWJU1GFLAmUCrBYcMPXY FPMemzKS0COWLTBFKGUY4A U7yfEuvIMOBTGQZfX7mWS9 XERZ9FPFPSBVWXXHeQEYZA L0NPTJcbxKYtHWDiZO2sJi FETYLKRzWlEf2AZU0MPPjC LoDPEXEWLNcGLg0pfFEaJS SrZP4aP8QJIyCbEDnQUUfM RDXvWVlWD5EDPxwxLVB8u8 xydGYxXHNzdGUxODAwMFxh bnNpXGRlZmxhbmcxMDMzXG Q2spKePRYfKXqwLPFhAWwb Rv8xbAMlfBqbUySsLZLzg3 tkwsQMhhzzfWx3p1tdBHIh OtK0bKNyNXreJ6vrxtSjsC IxEOPeBTk2zB63UTCrmW0j dSWrKRgdbzLbQhC2JFgxXD UjPqN5VXQyeBQeSALcM4xh ZWQwXGdyZWVuMFxibHVlMC K9fIjkq6V8oURrhHNiwXxh SjRzVlUdKwIGo4HnSEm8dV tyE3OeTJPdIqR2cOTbOVHa QMeqNUHnZISodkW5rH08BT tstuH7lBMhp9Ete93vg650 mS4xrDXzIDZ7YYIvMIDfzX SzTMAaVSO9IJAzlNDeR8fl RTUjXZ8mnaooTMjnJStcNA FcuHL9EPMhuLClW7KbYMDl NWmlQWCwjyg8FiLiFa4lfP BhvIxuEAljf4obe9gquTZx Joy0QREbFzUcKyuwEVssp5 Fuz0zlJLYxrd5aYQC2cANr wFqnh6M4fCWxBCJfdHDgAM TgAD2uzPZaWKTxzM4zvfyw XHBnYnJkcmhlYWRccGdicm GcRn3swLrpKWR7OXcqB7hv dK3xAiH7LLsgR4xkgY2yWZ j3HWrkSAKkxHO6naK0FSPu rODjU9EllB7pMALzSS3ebg w1l0knFCE5WQnoAXXcSxE9 paI1OLJhhHYtHMNcgRbpRH lpk493DVU5VcLhCFGwh1Rl N6UspVmtQ49wwQriD76fEW HszHbalY3qxNiueJ2nCnMk WxYcLJkfsSbtII1oLRSlX4 nzkGTdKVJjXMAiZ8vfSnFc iG3hfOctGYgfyyNcAUIjXw b7NLYvqAItFBMbZif6LZJp HPBkS22blvihMLV7iB9hy6 gvk0GjAShoPCY0UAGnz33g YGqnoaK0UExxKg91URwhWH P9HGkyEDZ2oN== CPT Code(s) (test code b7lzoBWbVVZvzUKgRRUuKR = 3357) acbyHqFGYmkUKqN5Jliqbm ABmeLR5zIM9ckCzvsSGjxR BxYUElCmUhr2kgs207hHCd u9dxKOXVepxvfRc9iZdgS8 8cm0U4OepcB39jvWYvSVQ9 BOPsEHBltKDbGKOlAIL2CQ VywKMsN9twOXGlRL1gzjxz SDqfAAwyUCSocAT9UJIjwY AjI1MmRVZbKSzjZCXcjjv6 VkPsKz7tmRZdwLmdZGkzLV JkXHBsYWluXGZzMjAgODgx GwYvMRe5BsG0XGPsqf6= CLINICAL DATA (test s0meiIPwNTLviBMpPUMhBN code = 3355) bnurUgHZByxPDqX5Usuxru UByrEF8qVU8kcXyhfSBclY XdMSWfPlDvf2ulx447hFZc v0orMFLXflpdjGp7hMinC8 5bk4L7RyieA88juIEcMHP4 JZAaIIGabGJrGJOaEVF2ND DccSCcN6lqYBWhKC2amqxf BLhdMUuvMDSfdVE6XLEjjP QtC6LvQPLiWRmaWKIeytz3 QxRmDu8wyYWcaBqqDKanZG JkXHBsYWluXGZzMjAgNTgg xG6bBfq+Rlx+l0c8mCIXQG BUDYErkvEly1Rejdvye2tw HCIfOQEfffEjRJV9laLLM7 gdp6o5nJP4cNBamdPdLONl HULcdA3cHA7wKEGMQQLgVZ luIHggNCBkYXlzIGFuZCB3 BPBsBf43hiCdkH9jaBU7XB For4xqxBanZYLaUJIgr95j TZZfIHNobsNbrC1kCLM1h8 ZnoQjsN4Vaw2qyCG3seV3b lZBjiPHavJKsh69vbN4oM2 qyArlwbSh1odU4skWcz7Mu hcQmTRK8utPDH9nNHcFqn7 OpLKhUXw0mfezvKKW9 SPECIMEN SOURCE (test t6aeoDGrKNVtcAGcBHHoNI code = 3377) dlowYrOIZycHRlM3Rwyujh QRjvKA2uJB1okParqMBalZ BcQCPmPcIin0atl519kKCr d9qhKDRNfyeriHz9iCksH6 0qs7G0XdurJ86zfJOmKRO7 YPIyDZZnhCRmGQXaLWF4PI GanIYtO0tsOPQkZA2goolm MKakHVyrLEDygPT5BIKmsD EyG9RyJLVwIAffRSQdgoy2 CxMuBm6kcQFxtEubTYklMR JkXHBsYWluXGZzMjAgTFlN ABhcPr4YVOuhLZmEFKJqNX RZTwmyZB8OULANSQRSR9MU WSBGTkFccGFyfQ== GROSS DESCRIPTION (test e7eqaKPvYODerUTRRATsGW code = [id number]) HsMP2pnQuvlDr6yZlcAVDy hbW2sDOnCWpzg2enTMA4v1 kaamQJXlxgMPFwNU5cNDsg EFDyVU0uXaGrZJDzDlTaRX BhcGVydzEyMjQwXHBhcGVy mHD0VQGuMG1qnhjlBEqzTO rdQFBgzrE8MQBsnXYtS3Re SQXiUU4ykzmvXOZ4BDIVEg wsBu3hcCZftKchQuTyXzEj YXJzZXQwXGZuaWwgQXJpYW d1tO1SXitrJQL4ICVIJfdx LusifIgmw8HraKThLNYpKQ xcaWQgNTEwMDAgXFxkYiBP EyMzPnQ6IUJiBaB0JvX4UG k5BFJKOCAcBQFrJoPeAER9 NOy2MYXaIY8eNFroqHPfPT lgYnonJQsvC127SIpjUHTc J1ZjQ3NqDUfsUfUiKSjyPD ZvYWEzPJwsJOXsI8YAICJj OKXeACT0JVXbISi7TUmxX3 UHYSPrZIBzVlyuGzX9SaB0 ODx1ZFJMAi2oTyi8OTh9TX B6PDJ6SAb8JIdqsKBuIOwo n1GbHhXoVEGeESysmeG0HQ LkqqVtBHrbfFcnsO6xDtXx UfLEFnJIzJ4tlLLVp3ZnLV LmhdLPXapmMDYnIC5UWPDv DVepNAUiYyRdhHCkL2bxGG VnH60it0XKs0XvLB8FDRx2 adIzfpenxF6zJWEafbSpKQ pcZnMyMCBSZWNlaXZlZCAx UQRdhWDqcY4eR6e1i6AvD9 ggcmVkOyBwcmVwYXJlZCA0 MNX3yY5srPefipsbV7BseN MinC4wkhXhKETlNAnrACod FHOko8LuCNHhWKKhJJWetp Vmu5PkEOjqblMxyWLtHRof NSBvbiAzLzIxLzIwMjMpXH BhciANClxzYTMwXGVwaWNY y1MfFOMGNenkyKegYuDkeQ PyFxF6BFOfhTUrOHR9LZ5c oVhwDWOyP9HpT8HqxgS5IP OfxrFGMqwmSFEyXE2GPXHg MjIgDQp9 MICROSCOPIC DESCRIPTION m1emrPQyPKLajCUoNCJfIA (test code = 3371) kixhTvMDSgaHJbC2Raabfj JZzoZT8iRV0zkYiqnUAkzX NpIWPyMiMfh6exs354fBRp c4idKBNPtovchQg0mElzE7 5ev6P4JvpuH54kbXVzVVO7 VJMdIGSieMOjGHJcFYL6QC OiePYwX5mvLOYfQH7aaerl IIanWZwoKLCeuXY8HLRfpN SdJ1TgNGTxYWnhZSTzule6 BaWtRo5glNZniSvbXKmyKZ JkXHBsYWluXGZzMjAgUGVy Rf8yyZOhGwksQJYqpGCtAI xwYXJ9 Gross assessment was [facility] performed at ([facility], = 2777) Department of Pathology, [address] [place] [address], Technical component was [facility] performed at ([facility], = 2778) Department of Pathology, [address] [place] [address], Professional component [facility] was performed at ([facility], code = 2779) Department of Pathology, [address] [place] [address], [facility] ASPIRATION BY [id number] 09:58:30Medical Cytology Report Case: [id number] Authorizing Provider: Arcenio Lazo Collected: 11/30/2022 08:48 AM Ordering Location: [address] Received: 11/30/2022 03:09 PM Service Pathologist: Simon Corona MD Specimen: Lymph Node, liver, marguerite-portal lymph node biopsy via FNA LYMPH NODE, LIVER MARGUERITE-PORTAL, BIOPSY VIA FNA (CYTOSPINS AND CELL BLOCK): - NEGATIVE FOR MALIGNANT CELLS. - SCANT LYMPHOID TISSUE. Signing Pathologist Direct Phone Line: [phone] signed by Simon Corona MD on 12/01/2022 at 9:58 [id number], [id number] y.o. F with CIFUENTES cirrhosis, who presented to OSH with upper back pain and RLQ pain x 4 days and was found to have colitis and concern for cholecystitis/choledocholithiasis on imaging, thus transferred to [facility] for HLOC. LYMPH NODE, LIVER, MARGUERITE-PORTAL BIOPSY FNAA. Lymph NodeReceived 15 mls in cytorich red; prepared 4 cytospins, cell block (A2) (cellblock placed in formalin at 15:35 on 11/30/2022)Performed.[facility], Department of Pathology, [address] [place] [address], [facility], [facility] of Pathology, [address] [place] [address], [facility], Department of Pathology, [address] [place] [address], NLVJQOYPMJOFG METABOLIC [id number] 05:09:17 Test Item Value Reference Range Interpretation [...] not appl icable for dialysis patien ts Hand Salter ID - STANLEY WCBC (HEMOGRAM ONLY)2022-12-01 04:18:12 [...] 0-0 (test code = 413) Fine Needle [id number] 17:00:24 Test Item Value Reference Range Interpretation Comments Cytology (test code = See Separate Report 1391) [facility] [id number] 17:00:24 Test Item Value Reference Range Interpretation Comments Cytology (test code = See Separate Report 2620) [facility] [id number] 17:00:24 Test Item Value Reference Range Interpretation Comments Cytology (test code = See Separate Report 2629) [facility] HospitalFINE NEEDLE ASPIRATE (FNA) [id number] 17:00:24 Test Item Value Reference Range Interpretation Comments CYTOLOGY RESULT POINTER See Separate Report (BEAKER) (test code = 2629) FL, FLUORO, NON-SPECIFIC, UP TO 1 [id number] 09:10:00Reason for exam:->[facility] 1965 Sex: FAn imaging unit was utilized for this procedure. No radiologist interpretation was requested. Refer to the EMR for findings. Refer to PACS for any patient radiation dose information.COMPREHENSIVE METABOLIC [id number] 04:50:44 Test Item Value Reference Range Interpretation [...] not appl icable for dialysis patien ts Hand Salter ID - MARCOPROTHROMBIN TIME/[id number] 04:28:12 Test Item Value Reference Range Interpretation [...] WBC 0-0 (test code = 413) PROTHROMBIN TIME/[id number] 23:20:55 Test Item Value Reference Range Interpretation [...] for dialysis patien ts HEPATOBILIARY IMAGING W/ [id number] 12:22:00Unlisted Reason for Exam - Click Yes and Enter Reason Below->YesUnlisted Reason for Exam->?chronic cholecystitis with dilated GBReason for exam:->?chronic cholecystitis with dilated GBKIN[facility]ED [facility]ITALName: [facility] : 1965 Sex: FFINAL REPORT PROCEDURE: HEPATOBILIARY SCAN with [facility] CPT CODE: 96752 INDICATION: 57-year-old female, chronic cholecystitis with dilated [...] 0-0 (test code = 413) COMPREHENSIVE METABOLIC [id number] 01:32:49 Test Item Value Reference Range Interpretation [...] not appl icable for dialysis patien ts Hand Salter ID - DBCBC (HEMOGRAM ONLY)2022-11-28 01:07:42 Test [...] 0-0 H (test code = 413) Urine [id number] 10:01:17 Test Item Value Reference Range Interpretation Comments Result (test code = See comment 6463-4) EDILBERTO (test code = EDILBERTO) <10,000 col/mL Gram negative rods<10,000 col/mL skin eduardo [facility] HospitalUrine [id number] 10:01:17 Test Item Value Reference Range Interpretation Comments Result (test code = See comment 6463-4) EDILBERTO (test code = EDILBERTO) <10,000 col/mL Gram negative rods<10,000 col/mL skin eduardo [facility] HospitalUrine [id number] 10:01:17 Test Item Value Reference Range Interpretation Comments Result (test code = See comment 6463-4) EDILBERTO (test code = EDILBERTO) <10,000 col/mL Gram negative rods<10,000 col/mL skin eduardo [facility] HospitalCOMPREHENSIVE METABOLIC [id number] 06:17:40 Test Item Value Reference Range Interpretation [...] not appl icable for dialysis patien ts Hand Salter ID - MARCOSpecimen slightly ictericCBC (HEMOGRAM ONLY)2022-11-27 [...] 0-0 (test code = 413) MR, ABDOMEN, [id number] 10:22:00Unlisted Reason for Exam - Click Yes and Enter Reason Below->YesUnlisted Reason for Exam->evaluate for choledocholithiasis [facility] : 1965 Sex: [...] Pandaort Verified Date/Time: 11/26/2022 10:22:09 Reading Location: [facility] C013X [facility] Consult Reading Room Electronically signed by: MANISH PANDA M.D. on11/26/2022 10:22 AMBASIC METABOLIC [id number] 06:05:16 Test Item Value Reference Range Interpretation [...] not appl icable for dialysis patien ts Hand Salter ID - MARIOSpecimen slightly ictericHEPATIC FUNCTION [id number] 06:04:28 Test Item Value Reference Range Interpretation [...] (test code = 33 U/L 6-55 347) Hand Salter ID - Angela slightly ictericPROTHROMBIN TIME/[id number] 05:52:20 Test Item Value Reference Range Interpretation [...] mechanical heart valves.CBC W/PLT COUNT & AUTO [id number] 05:33:16 Test Item Value Reference Range Interpretation [...] (BEAKER) (test code = 2801) U/S, ABDOMINAL, [id number] 17:23:00Abdomen limited area? Add comment if clarification is needed.->Right upper quadrant Reason for exam:- >cholecystitis possible choledocolithiasis [facility] : 1965 [...] and small volume ascites. Signed: Goldie Albright Verified Date/Time: 11/25/2022 17:23:59 Urinalysis w/Microscopic + Reflex to [id number] 11:12:01 Test Item Value Reference Range Interpretation Comments Color, UA (test code Brown = 5778-6) Clarity, UA (test Cloudy code = 5767-9) Specific [place], UA 1.050 1.001-1.035 H (test code = 5811-5) pH, UA (test code = 6.0 5.0-8.0 5803-2) Protein, UA (test 200 mg/dL Negative A code = 25118-7) Glucose, UA (test Negative Negative code = 365) Ketones, UA (test Trace Negative A code = 2514-8) Bilirubin, UA (test Negative Negative code = 98529-1) Blood, UA (test code Large Negative A = 80443-1) Nitrite, UA (test Negative Negative code = 5802-4) Leukocytes, UA (test Small Negative A code = 5799-2) Urobilinogen, UA 2 0.2-1.0 H (test code = 07655-7) RBC, UA (test code = See_Comment [Autom ated 63076-8) message] The system which generated this result [...] . Bacteria, UA (test Many code = 70361-0) Mucus (test code = Rare 8247-9) Squam Epithel, UA 10 See_Comment [Automate d (test code = 29711-4) messag e] The system which generated this result transmit joanna reference range : /HPF. The reference range was not used to interpret this result as normal/abnormal . Specimen Source (test code = 2795) EDILBERTO (test code = EDILBERTO) Hand Salter ID - tech Lab Interpretation Abnormal (test code = 68316-0) [facility] HospitalUrinalysis w/Microscopic + Reflex to Culture 2022-11-25 11:12:01 Test Item Value Reference Range Interpretation Comments Color, UA (test code Brown = 5778-6) Clarity, UA (test Cloudy code = 5767-9) Specific [place], UA 1.050 1.001-1.035 H (test code = 5811-5) pH, UA (test code = 6.0 5.0-8.0 5803-2) Protein, UA (test 200 mg/dL Negative A code = 63918-4) Glucose, UA (test Negative Negative code = 365) Ketones, UA (test Trace Negative A code = 2514-8) Bilirubin, UA (test Negative Negative code = 81508-8) Blood, UA (test code Large Negative A = 38348-1) Nitrite, UA (test Negative Negative code = 5802-4) Leukocytes, UA (test Small Negative A code = 5799-2) Urobilinogen, UA 2 0.2-1.0 H (test code = 92105-4) RBC, UA (test code = See_Comment [Autom ated 54863-5) message] The system which generated this result [...] . Bacteria, UA (test Many code = 98575-1) Mucus (test code = Rare 8247-9) Squam Epithel, UA 10 See_Comment [Automate d (test code = 41372-7) messag e] The system which generated this result transmit joanna reference range : /HPF. The reference range was not used to interpret this result as normal/abnormal . Specimen Source (test code = 2795) EDILBERTO (test code = EDILBERTO) Hand Salter ID - tech Lab Interpretation Abnormal (test code = 49513-4) [facility] w/Microscopic + Reflex to Culture 2022-11-25 11:12:01 Test Item Value Reference Range Interpretation Comments Color, UA (test code Brown = 5778-6) Clarity, UA (test Cloudy code = 5767-9) Specific [place], UA 1.050 1.001-1.035 H (test code = 5811-5) pH, UA (test code = 6.0 5.0-8.0 5803-2) Protein, UA (test 200 mg/dL Negative A code = 88710-5) Glucose, UA (test Negative Negative code = 365) Ketones, UA (test Trace Negative A code = 2514-8) Bilirubin, UA (test Negative Negative code = 15003-9) Blood, UA (test code Large Negative A = 32627-9) Nitrite, UA (test Negative Negative code = 5802-4) Leukocytes, UA (test Small Negative A code = 5799-2) Urobilinogen, UA 2 0.2-1.0 H (test code = 32691-6) RBC, UA (test code = See_Comment [Autom ated 42785-9) message] The system which generated this result [...] . Bacteria, UA (test Many code = 33201-4) Mucus (test code = Rare 8247-9) Squam Epithel, UA 10 See_Comment [Automate d (test code = 19294-1) messag e] The system which generated this result transmit joanna reference range : /HPF. The reference range was not used to interpret this result as normal/abnormal . Specimen Source (test code = 2795) EDILBERTO (test code = EDILBERTO) Hand Salter ID - tech Lab Interpretation Abnormal (test code = 58166-8) [facility] HospitalURINALYSIS W/ REFLEX URINE [id number] 11:12:01 Test Item Value Reference Range Interpretation [...] = 516) SOURCE(BEAKER) (test code = 2795) Hand Salter ID - techBILIRUBIN, [id number] 10:18:18 Test Item Value Reference Range Interpretation Comments BILIRUBIN DIRECT (BEAKER) (test 1.3 mg/dL 0.1-0.5 H code = 706) Hand Salter ID - HENRIQUE GPROTHROMBIN TIME/[id number] 07:19:55 Test Item Value Reference Range Interpretation [...] not appl icable for dialysis patien ts Hand Salter ID - HENRIQUE GSpecimen slightly [id number] 07:09:53 Test Item Value Reference Range Interpretation Comments MAGNESIUM (BEAKER) (test code = 1.7 mg/dL 1.6-2.6 627) Hand Salter ID - HENRIQUE [id number] 07:09:53 Test Item Value Reference Range Interpretation Comments PHOSPHORUS (BEAKER) (test code = 3.8 mg/dL 2.3-4.7 604) Hand Salter ID - HENRIQUE GCBC W/PLT COUNT & AUTO [id number] 06:52:55 Test Item Value Reference Range Interpretation [...]
--- NOTE | 2023-07-27 12:20 | RAD REPORT ---
EXAM DESCRIPTION: RADChest Single View07/27/2023 12:09 pm CLINICAL HISTORY: COUGH COMPARISON: Chest Single View dated 07/17/2023; Chest Single View dated 04/21/2023; Chest Pa And Lat ( 2 Views) dated 04/14/2023; Chest Single View dated 04/05/2023 TECHNIQUE: Portable AP view of the chest. FINDINGS: Stable left basilar opacification which may reflect residual effusion with underlying atel ectasis or airspace disease. The lungs are otherwise clear. No pneumothorax. The cardiomediastinal c ontours are unremarkable. IMPRESSION: Stable left basilar opacity, may represent residual effusion with underlying atelectasis or airspace disease. No significant interval change.
[2023-07-27 12:53] LABS: Absolute Lymphocytes (CBC) 0.6 K/uL (0.7-4.9); Hematocrit 23.7 % (36.0-45.0); Lymphocytes % 13.5 % (15.3-44.8); MCV 101.8 fL (80-100); MPV 8.1 fL (7.6-11.3); Platelets 35 thou/uL (152-406); RBC Red Blood Cell Count 2.32 M/uL (3.86-4.86)
[2023-07-27 13:03] LABS: Albumin 3.2 g/dL (3.4-5.0); Potassium 4.1 mEq/L (3.5-5.1); Protein, Total 6.3 g/dL (6.4-8.2)
--- NOTE | 2023-07-27 13:16 | EDPHYS ---
Physician Documentation [facility] Name: Christelle Paredes Age: 58 yrs Sex: Female : 1965 Arrival Date: 07/27/2023 Time: 11:02 Bed 2 Private MD: ED Physician Guille Francois HPI: 07/27 11:35 This 58 yrs old Female presents to ER via Wheelchair with complaints of Flu ec2 Symptoms, Chest Pain. 11:35 Patient arrives today for evaluation of cough and cold symptoms. States that she been ec2 having symptoms for approximately 3 days. States that she has a persistent cough that has not improved. Patient reports no vomiting, denies any diarrhea however does occasionally feel nauseous. Patient reports that she has a history of liver disease and is on a liver transplant list. Patient reports also poor kidney function. Patient reports no significant difficulty breathing. Reported chest pain to registration however did not relate this to me. . Historical: - Allergies: 11:31 Vancomycin; mb9 11:31 Meclizine; mb9 - PMHx: 11:31 Asthma; cirrhosis of liver; kidney issues with IV contrast; mb9 - PSHx: 11:31 common bile duct stent-EGD; mb9 - Immunization history:: Adult Immunizations up to date. - Social history:: Smoking status: Patient denies any tobacco usage or history of. ROS: 11:35 Constitutional: as per hpi ec2 Exam: 11:35 Constitutional: GEN: NAD Head: atraumatic Eyes: EOMI Ears: External ears are ec2 normal. CV: regular rate LUNGS: no respiratory distress ABD: non-distended, soft, nontender, no guarding, not rigid SKIN: no evidence of rashes MSK: no evidence of trauma NEURO: moves all extremities equally Vital Signs: 11:28 BP 93 / 55; Pulse 94; Resp 18; Temp 97.7; Pulse Ox 100% on R/A; Weight 93.89 kg; Height mb9 5 ft. 8 in. ; 11:40 BP 101 / 60; Pulse 88; Resp 17; Pulse Ox 99% on R/A; rs5 12:45 BP 99 / 60; Pulse 88; Resp 17; Pulse Ox 99% on R/A; rs5 13:10 BP 102 / 62; Pulse 87; Resp 16; Pulse Ox 99% on R/A; rs5 11:28 Body Mass Index 31.47 (93.89 kg, 172.72 cm) mb9 MDM: 11:06 Patient medically screened. ec2 11:37 ED course: Patient arrives today for evaluation of URI signs and symptoms. Examination ec2 remarkable for nontoxic individual who is in no acute distress who otherwise has a generally benign abdomen, obtain lab work, chest x-ray, viral swab. Currently considering volume overload, viral process, pneumonia. 13:07 ED course: Metabolic profile shows appropriate electrolytes, renal dysfunction with a ec2 creatinine of 1.94 and GFR of 29. Lipase is minimally elevated at 78, CBC shows slight anemia and slight leukopenia. Patient is flu B+. . 13:14 Data reviewed: vital signs. ED course: I will discharge home the patient with Tamiflu. ec2 Patient otherwise with baseline abnormalities on her lab work and does not require admission to the hospital. I instructed her to follow with her primary care doctor.. 07/27 11:35 Order name: CBC with Diff ec2 07/27 11:35 Order name: CMP; Complete Time: 13:06 ec2 07/27 11:35 Order name: Lipase; Complete Time: 13:06 ec2 07/27 11:38 Order name: COVID-19 SARS RT PCR ec2 07/27 11:38 Order name: Influenza Screen (a \T\ B); Complete Time: 13:11 ec2 07/27 13:25 Order name: CBC Smear Scan EDMS 07/27 11:35 Order name: CXR XRAY; Complete Time: 12:24 ec2 07/27 11:35 Order name: IV Saline Lock; Complete Time: 12:46 ec2 07/27 11:35 Order name: Labs collected and sent; Complete Time: 12:46 ec2 Administered Medications: 12:40 Drug: Ondansetron IVP 4 mg IVP once; over 2 minutes Route: IVP; Site: left hand; rs5 13:01 Follow up: Response: No adverse reaction; Nausea is decreased rs5 12:40 Drug: NS 0.9% IV 500 ml IV at bolus once Route: IV; Rate: bolus; Site: left hand; rs5 13:01 Follow up: Response: No adverse reaction rs5 12:40 Drug: diphenhydrAMINE IVP 25 mg IVP once Route: IVP; Site: left hand; rs5 13:02 Follow up: Response: No adverse reaction rs5 12:40 Drug: DuoNeb Nebulize (3:1) (2.5 mg - 0.5 mg) 3 ml Nebulizer once Route: Nebulizer; rs5 13:02 Follow up: Response: No adverse reaction rs5 13:07 Drug: hydrOXYzine PO 50 mg PO once Route: PO; rs5 13:20 Follow up: Response: No adverse reaction rs5 13:15 Drug: Oseltamivir PO 75 mg PO once Route: PO; rs5 Disposition Summary: 07/27/23 13:15 Discharge Ordered Notes: Location: Home ec2 Condition: Stable ec2 Diagnosis - Influneza B ec2 Followup: ec2 - With: Private Physician - When: - Reason: Re-evaluation by your physician Discharge Instructions: - Discharge Summary Sheet ec2 - Influenza, Adult, Uezt-wk-Uvey ec2 Forms: - Medication Reconciliation Form ec2 - Thank You Letter ec2 - Antibiotic Education ec2 - Prescription Opioid Use ec2 - Patient Portal Instructions ec2 - Leadership Thank You Letter ec2 Prescriptions: - Tamiflu 75 mg Oral capsule - take 1 tablet ORAL route every 12 hours for 5 days; 10 tablet; Refills: 0, ec2 Product Selection Permitted Signatures: Dispatcher [employer] Shelia Benoit RN RN mb9 Ramirez Olivia RN RN rs5 Guille Francois MD MD ec2
--- NOTE | 2023-07-27 13:16 | ER ---
Nurse's Notes [facility] Name: Christelle Paredes Age: 58 yrs Sex: Female : 1965 Arrival Date: 07/27/2023 Time: 11:02 Bed 2 Private MD: Diagnosis: Influneza B Presentation: 07/27 11:28 Chief complaint: Patient states: "Since Tuesday, I've had a cough, congestion, N/V. I'm mb9 not sure if i have flu or if it's something to do with my kidney function. I have a outpatient thoracentesis scheduled for tomorrow". Coronavirus screen: Vaccine status: Patient reports receiving the 2nd dose of the covid vaccine. Ebola Screen: No symptoms or risks identified at this time. Initial Sepsis Screen: Does the patient meet any 2 criteria? No. Patient's initial sepsis screen is negative. Does the patient have a suspected source of infection? No. Patient's initial sepsis screen is negative. Risk Assessment: Do you want to hurt yourself or someone else? Patient reports no desire to harm self or others. Onset of symptoms was July 27, 2023. 11:28 Method Of Arrival: Wheelchair mb9 11:28 Acuity: FRANKLIN 3 mb9 Triage Assessment: 11:32 General: Appears uncomfortable, Behavior is calm, cooperative, appropriate for age. mb9 Pain: Denies pain. EENT: No signs and/or symptoms were reported regarding the EENT system. Neuro: Sparks Agitation-Sedation Scale (RASS): 0 - Alert and Calm Level of Consciousness is awake, alert, obeys commands, Oriented to person, place, time, situation, Appropriate for age. Cardiovascular: Patient's skin is warm and dry. Respiratory: Airway is patent Respiratory effort is even, unlabored, Respiratory pattern is regular, symmetrical. Respiratory: Reports cough that is. GI: Reports nausea. Derm: Skin is pink, warm \\T\\ dry. Historical: - Allergies: 11:31 Vancomycin; mb9 11:31 Meclizine; mb9 - PMHx: 11:31 Asthma; cirrhosis of liver; kidney issues with IV contrast; mb9 - PSHx: 11:31 common bile duct stent-EGD; mb9 - Immunization history:: Adult Immunizations up to date. - Social history:: Smoking status: Patient denies any tobacco usage or history of. Screenin:25 [facility] Fall Risk Assessment (Adult) History of falling in the last 3 months, rs5 including since admission No falls in past 3 months (0 pts) Confusion or Disorientation No (0 pts) Intoxicated or Sedated No (0 pts) Impaired Gait No (0 pts) Mobility Assist Device Used No (0 pt) Altered Elimination No (0 pt) Score/Fall Risk Level 0 - 2 = Low Risk Oriented to surroundings, Maintained a safe environment. 11:25 Abuse screen: Denies threats or abuse. Nutritional screening: No deficits noted. rs5 Tuberculosis screening: No symptoms or risk factors identified. Assessment: 11:30 General: Appears in no apparent distress. uncomfortable, Behavior is calm, cooperative. rs5 Pain: Complains of pain in chest Pain does not radiate. Pain currently is 3 out of 10 on a pain scale. Quality of pain is described as aching, Pain began 2-3 days ago. Is continuous, Aggravated by coughing. Neuro: Level of Consciousness is awake, alert, obeys commands, Oriented to person, place, time, situation. Cardiovascular: Heart tones S1 S2 present Rhythm is regular. Respiratory: Reports cough that is productive, pain with cough Airway is patent Respiratory effort is even, unlabored, Respiratory pattern is regular, symmetrical, Breath sounds are clear bilaterally. GI: Abdomen is round non-distended, Bowel sounds present X 4 quads. Abd is soft and non tender X 4 quads. Reports nausea, vomiting. 11:30 : No signs and/or symptoms were reported regarding the genitourinary system. EENT: No rs5 signs and/or symptoms were reported regarding the EENT system. Derm: Skin is intact, Skin is pink, warm \\T\\ dry. Musculoskeletal: Range of motion: intact in all extremities. 12:06 Reassessment: No changes from previously documented assessment. Patient and/or family ll1 updated on plan of care and expected duration. Pain level reassessed. 13:10 Reassessment: Patient and/or family updated on plan of care and expected duration. Pain rs5 level reassessed. Cardiovascular: Rhythm is regular. Respiratory: Airway is patent Respiratory effort is even, unlabored, Respiratory pattern is regular, symmetrical. 13:10 Reassessment: Patient denies pain at this time. rs5 Vital Signs: 11:28 BP 93 / 55; Pulse 94; Resp 18; Temp 97.7; Pulse Ox 100% on R/A; Weight 93.89 kg; Height mb9 5 ft. 8 in. ; 11:40 BP 101 / 60; Pulse 88; Resp 17; Pulse Ox 99% on R/A; rs5 12:45 BP 99 / 60; Pulse 88; Resp 17; Pulse Ox 99% on R/A; rs5 13:10 BP 102 / 62; Pulse 87; Resp 16; Pulse Ox 99% on R/A; rs5 11:28 Body Mass Index 31.47 (93.89 kg, 172.72 cm) mb9 ED Course: 11:05 Patient arrived in ED. mg5 11:06 Guille Francois MD is Attending Physician. ec2 11:25 Patient has correct armband on for positive identification. Placed in gown. Bed in low rs5 position. Call light in reach. Side rails up X2. Client placed on continuous cardiac and pulse oximetry monitoring. NIBP monitoring applied. 11:25 Patient maintains SpO2 saturation greater than 95% on room air. rs5 11:31 Triage completed. mb9 11:32 Arm band placed on. mb9 12:06 Patient placed in an exam room, on a stretcher. ll1 12:11 CXR XRAY In Process Unspecified. EDMS 12:35 Initial lab(s) drawn, by me, sent to lab. Inserted saline lock: 24 gauge in left wrist, aa5 using aseptic technique. Blood collected. 13:06 Notified ED physician of a critical lab result(s). flu B +. ll1 13:07 Ramirez Olivia, RN is Primary Nurse. rs5 13:40 No provider procedures requiring assistance completed. rs5 13:40 IV discontinued, intact, bleeding controlled, No redness/swelling at site. Pressure rs5 dressing applied. Administered Medications: 12:40 Drug: Ondansetron IVP 4 mg IVP once; over 2 minutes Route: IVP; Site: left hand; rs5 13:01 Follow up: Response: No adverse reaction; Nausea is decreased rs5 12:40 Drug: NS 0.9% IV 500 ml IV at bolus once Route: IV; Rate: bolus; Site: left hand; rs5 13:01 Follow up: Response: No adverse reaction rs5 12:40 Drug: diphenhydrAMINE IVP 25 mg IVP once Route: IVP; Site: left hand; rs5 13:02 Follow up: Response: No adverse reaction rs5 12:40 Drug: DuoNeb Nebulize (3:1) (2.5 mg - 0.5 mg) 3 ml Nebulizer once Route: Nebulizer; rs5 13:02 Follow up: Response: No adverse reaction rs5 13:07 Drug: hydrOXYzine PO 50 mg PO once Route: PO; rs5 13:20 Follow up: Response: No adverse reaction rs5 13:15 Drug: Oseltamivir PO 75 mg PO once Route: PO; rs5 Medication: 13:40 VIS not applicable for this client. rs5 Outcome: 13:15 Discharge ordered by . ec2 13:40 Discharged to home ambulatory, rs5 13:40 Condition: stable 13:40 Discharge instructions given to patient, Instructed on discharge instructions, follow up and referral plans. Demonstrated understanding of instructions, follow-up care, 13:41 Patient left the ED. bc6 Signatures: Dispatcher [employer] EDAnne Carias RN RN aa5 Ina Robledo RN RN ll1 Shelia Pierre RN RN mb9 Ramirez Olivia RN RN rs5 Melissa Laird bc6 Ne Adorno mg5 Guille Francois MD MD ec2 Corrections: (The following items were deleted from the chart) 17:01 11:30 GI: Abdomen is round non-distended, Bowel sounds present X 4 quads. Abd is soft rs5 and non tender X 4 quads. rs5
[2023-07-27] MEDS ORDERED: hydrOXYzine HCL 25 MG TAB ONE (13:18)
[2023-07-27 13:25] LABS: Blood Morphology Comment NOT SEEN (NOT SEEN); Platelet Estimate DECR; White Blood Cell Scan OK (OK)
[2023-07-27] MEDS ORDERED: OSELTAMIVIR 75 MG CAP PO ONE (13:39)
[2023-07-27 13:54] VITALS: BP 93/55; TEMP 97.7; O2SAT 100
== END 2023-07-27 13:41 | disposition home or self-care (01) ==
LOC: ER 11:02
DX: J10.1 Influenza due to other identified influenza virus with other respiratory manifestations (principal); Z11.52 Encounter for screening for COVID-19; K74.60 Unspecified cirrhosis of liver; R07.9 Chest pain, unspecified; Z88.1 Allergy status to other antibiotic agents; Z88.8 Allergy status to other drugs, medicaments and biological substances
CPT/HCPCS: 36415; 71045; 80053; 83690; 85025; 87635; 87804; 94640; 96374; 96375; 99285

== ENCOUNTER 2023-07-29 12:53 | Emergency (ER) | payer BC ==
--- OUTSIDE RECORDS SUMMARY | 2023-07-29 13:10 | XMS REPORT | Continuity of Care Document ---
:1965 Author Organization [facility] t Address [address] [facility] [address] [place] [id number] Care Team Providers Name Role Phone Nuris Alegre Primary Care Physician RIGO SANZ Attending Clinician Unavailable KAMLESH DOBSON Attending Clinician Unavailable MARGIE ALLRED Attending Clinician Unavailable KADI MARY Attending Clinician Unavailable ZAKIA TAYLOR Attending Clinician Unavailable LUPE GLOVER Attending Clinician Unavailable APRYL KOCH Attending Clinician Unavailable DANUTA TAYLOR Attending Clinician Unavailable CARLOS RAY Attending Clinician Unavailable MARSHA BLACK Attending Clinician Unavailable MARIO MONTANO Attending Clinician Unavailable ASHLEY WRIGHT Attending Clinician Unavailable PAUL SUTTON Attending Clinician Unavailable MATY MEI Attending Clinician Unavailable MIKAEL DARNELL Attending Clinician Unavailable BEBE COX Attending Clinician [...] Clinician Unavailable VERONICA KRAMER Attending Clinician Unavailable LUYC PASCAL Attending Clinician Unavailable GOLDIE ALBRIGHT Attending Clinician Unavailable JOSELUIS STONER Attending Clinician Unavailable ERIKA CUELLAR Attending Clinician Unavailable HEATHER MARIANO Attending Clinician Unavailable NENA MANE Attending Clinician Unavailable Mel VAUGHN, Du Attending Clinician Terri Concepcion Attending Clinician Fabiano VAUGHN, Gerardo Castro Attending Clinician Paul Sutton MD Attending Clinician [phone] Patricia VAUGHN MPH, Amie Lehman Attending Clinician [phone] Enmanuel VAUGHN, Megha Dumas Attending Clinician Castillo VAUGHN, Rylie Diaz Attending Clinician Graham VAUGHN, Dipak Long Attending Clinician Ana Luisa VAUGHN, Heather Thurman Attending Clinician [phone] Judi Vigil Attending Clinician Eun Gregory MD Attending Clinician Monica Ruiz CRNA Attending Clinician [phone] Arcenio Lazo Attending Clinician MARGIE ALLRED Admitting Clinician Unavailable KADI MARY Admitting Clinician Unavailable RIGO SANZ Admitting Clinician Unavailable SUSHIL EPPERSON Admitting Clinician Unavailable PAUL STUTON Admitting Clinician Unavailable ASHLEY WRIGHT Admitting Clinician Unavailable USHA CUELLAR Admitting Clinician Unavailable BARRY CUNHA Admitting Clinician Unavailable HIRAM HIGHTOWER Admitting Clinician Unavailable ARCENIO LAZO Admitting Clinician Unavailable Referred, Self Admitting Clinician Unavailable HEATHER MARIANO Admitting Clinician Unavailable MARISABEL HO Admitting Clinician Unavailable JUDI VIGIL Admitting Clinician Unavailable Payers Payer Name Policy Type Policy Number Effective Date Expiration Date S [employer] [employer] PPO POS EPO [id number] 2022 00:00:00 CHOICE Problems Condition Condition Condition Status Onset Resolution Last Treating Co mments Source Name Details Category Date Date Treatment Clinician Date Pleural Pleural Disease Active [facility] Other Other Disease Active [facility] 00:[facility]: [facility] 00 [place] Symptomati Symptomati Disease Active [facility] 3[facility]17 [facility] cholelithi cholelithi 00:00: Me dical asis asis 00 [place] Disease Active [facility] [...] Active 0 Method i in ty to 7-24 st adverse 00:00: Hospita reaction 00 l s to drug NO KNOWN Allergy Active [facility] Family History Family Member Diagnosis Comments Start Date Stop Date Source Natural father Hypertension [facility] Natural father Kidney cancer [facility] Natural mother Arrhythmia [facility] Natural mother Asthma [facility] Natural mother Cirrhosis [facility] Natural mother Diabetes [facility] Social History Social Habit Start Date Stop Date Quantity Comments Source Gender [facility] SDOH [facility] Alcohol Std Drinks Medica l Center History SDOH [facility] Alcohol Binge Medical Mal[facility] Sexual orientation Method ist Hospital Exposure to 2022-12-19 2022-12-[address] [facility] SARS-CoV-2 (event) 00:00:00 15:15:00 Medica l Center History [facility] 2022-12-29 2022-12-[address] [facility] Housing Unable to 00:00:00 00:00:00 Medical Center Pay History [facility] 2022-12-29 2022-12-[address] [facility] Housing Places 00:00:00 00:00:00 Medical Ce nter Lived History [facility] 2022-12-29 2022-12-[address] [facility] Housing Homeless 00:00:00 00:00:00 Medical Center Last Year History [facility] 2022-11-25 2022-11-[address] [facility] Alcohol Frequency 00:00:00 00:00:00 Medical Center History of Social 2019-05-03 2019-05-[address] function 00:00:00 00:00:00 Hospital Tobacco use and 2019-04-04 2019-04-04 Smokeless [facility] exposure 00:00:00 00:00:00 tobacco non-user Hospital Alcohol intake 2019-04-04 2019-04-04 Ex-drinker [facility] 00:00:00 00:00:00 (finding) Hospital Sex Ass[birth year] At [birth year] [facility] 00:00:00 00:00:00 Hospital Smoking Status Start Date Stop Date Source Never smoked tobacco [facility] Medications Ordered Filled Start Stop Current Ordering Indication Dosage Frequency Signature Comments Components Source Medication Medication Date Date Medication? Clinician (SIG) Name Name spironolact 2022-0 Yes 25mg QD Take [address] [facility] [address] one 4-26 tablet (25 [facility] (ALDACTONE) 18:19: mg total) M edical 25 MG 05 by mouth Center tablet in the morning. omeprazole 2022-0 Yes 20mg QD Take 1 [facility] (PriLOSEC) -26 capsule [facility] 20 MG 18:19: (20 mg Medical capsule 05 total) by Center mouth in the morning. traMADoL 2022-0 Yes 50mg Take [address] [facility] (ULTRAM) 50 -26 tablet (50 Veronica kes mg tablet 18:19: [...] the morning. propranoloL 2022-0 2023- No 10mg [id number] Take [address] (INDERAL) 12-01-21 [id number] tablet (10 [facility] 10 MG 00:00: 23:59 3D mg total) Medica l tablet 00 :00 by mouth Center in the morning and 1 tablet (10 mg total) at noon and 1 tablet (10 mg total) in the evening. furosemide 2022-0 202- No 20mg Take [address] [facility] (LASIX) 20 3-22 03-21 tablet (20 Veronica kes MG tablet [...] needed for Wheezing. propranoloL 2023- No 10mg Q.[id number] Take [address] (INDERAL) 12-01- [id number] tablet (10 [facility] 10 MG 00:00: 23:59 3D mg total) Medica l tablet 00 :00 by mouth Center in the morning and 1 tablet (10 mg total) at noon and 1 tablet (10 mg total) in the evening. furosemide 2023- No 20mg Take [address] [facility] [address] (LASIX) 20 12-01 tablet (20 Veronica kes MG tablet 00:00: 23:59 mg total) Me dical 00 :00 by mouth Center daily as needed (leg swelling). albuterol 2023- No 1{puff} Inhale [address] HFA 12-01 puff by [facility] (VENTOLIN 00:00: 23:59 mouth via Me dical HFA) 90 00 :00 inhaler Center mcg/actuati every 6 on inhaler (six) hours as needed for Wheezing. propranoloL 2023- No 10mg [id number] Take [address] (INDERAL) 12-01- [id number] tablet (10 [facility] 10 MG 00:00: 23:59 [...] Heart rate 2023-01-04 15:54:03 71 /min [facility] Respiratory rate 2023-01-04 15:54:03 18 /min [facility] Oxygen saturation in 2023-01-04 15:54:03 96 /min [facility] Arterial blood by Medical Ce nter Pulse oximetry Body temperature 2023-01-04 15:53:12 37 Odilia [facility] Systolic blood 2023-01-04 15:53:00 108 mm[Hg] [facility] Diastolic blood 2023-01-04 15:53:00 69 mm[Hg] [facility] Body weight 2023-01-04 07:30:00 111.727 kg [facility] BMI 2023-01-04 07:30:00 36.37 kg/m2 [facility] Body height 2023-01-02 09:27:00 175.3 cm [facility] Systolic blood 2022-12-01 08:02:00 121 mm[Hg] [facility] Diastolic blood 2022-12-01 08:02:00 60 mm[Hg] [facility] Heart rate 2022-12-01 08:02:00 79 /min [facility] Body temperature 2022-12-01 08:02:00 35.78 Odilia [facility] Respiratory rate 2022-12-01 08:02:00 18 /min [facility] Oxygen saturation in 2022-12-01 08:02:00 93 /min [facility] Arterial blood by Medical Ce nter Pulse oximetry Body height 2022-11-25 08:46:00 175.3 cm [facility] Body weight 2022-11-25 08:46:00 119.296 kg [facility] BMI 2022-11-25 08:46:00 38.84 kg/m2 [facility] Procedures Procedure Date / Time Performing Clinician Source Performed MAGNESIUM 2023-01-04 05:10:00 Margie Allred [facility] COMPREHENSIVE METABOLIC 2023-01-04 05:10:00 Margie Allred [facility] PHOSPHORUS 2023-01-04 05:10:00 Bae, [facility] CALCIUM, IONIZED 2023-01-04 05:09:00 [facility] CBC W/PLT COUNT & AUTO 2023-01-04 05:09:00 [facility] [id number] 2023-01-04 05:09:[address] [facility] CBC W/PLT COUNT & AUTO 2023-01-04 05:09:00 [facility] MAGNESIUM 2023-01-03 05:02:00 Teofilo [facility] COMPREHENSIVE METABOLIC 2023-01-03 05:02:[address] [facility] MAGNESIUM 2023-01-02 05:32:00 Teofilo [facility] COMPREHENSIVE METABOLIC 2023-01-02 05:32:[address] [facility] CALCIUM, IONIZED 2023-01-01 05:50:00 [facility] COMPREHENSIVE METABOLIC 2023-01-01 05:12:[address] [facility] MAGNESIUM 2023-01-01 05:12[facility] PROTHROMBIN TIME/INR 2023-01-01 05:12:00 Marisabel Ho [facility] HEREDITARY HEMOCHROMATOSIS 2023-01-01 05:12:00 Dipak Arreola [facility] PHOSPHORUS 2023-01-01 05:12:00 [facility] CBC W/PLT COUNT & AUTO 2023-01-01 05:12:00 [facility] CBC W/PLT COUNT & AUTO 2023-01-01 05:12:00 [facility] 2D ECHO W/ DOPPLER 2022-12-31 14:04:45 Evelyn Portillo [facility] (CW/PW/COLOR) [facility] REPORT OF PROCEDURE - 2022-12-31 10:28:[address] [facility] ENDOSCOPY [facility] EGD 2022-12-31 08:14:00 Gerardo Diaz [facility] L ukes (ESOPHAGOGASTRODUODENOSCOP Medic al Center Y) COMPREHENSIVE METABOLIC 2022-12-31 04:48:[address] [facility] MAGNESIUM 2022-12-31 04:48:[address] [facility] PROTHROMBIN TIME/INR 2022-12-31 04:48:00 [facility] Marisabel [facility] CALCIUM, IONIZED 2022-12-31 04:48:00 [facility] PHOSPHORUS 2022-12-31 04:48:00 [facility] CBC W/PLT COUNT & AUTO 2022-12-31 04:48:00 [facility] CBC W/PLT COUNT & AUTO 2022-12-31 04:48:00 [facility] HEPATITIS B CORE ANTIBODY, 2022-12-30 16:29:00 [facility] HEPATITIS A ANTIBODY, IGG 2022-12-30 16:29:00 [facility] C ANTIBODY 2022-12-30 16:29:00 [facility] Marisabel [facility] HEPATITIS B SURFACE 2022-12-30 16:29:00 [facility] C [facility] ANTIGEN [facility] HEPATITIS B SURFACE 2022-12-30 16:29:00 [facility] Marisabelher Fuller C [facility] ANTIBODY [facility] FERRITIN 2022-12-30 16:29:00 [facility] IRON, TIBC, % SAT. 2022-12-30 16:29:00 Marisabel Ho [facility] (WITHOUT FERRITIN) [facility] CERULOPLASMIN 2022-12-30 16:29:00 Bartsch, [facility] ALPHA FETOPROTEIN (AFP), 2022-12-30 16:29:00 Marisabel Ho [facility] TUMOR MARKER [facility] ANTI-NUCLEAR ANTIBODY 2022-12-30 16:29:00 Rosalee [facility]) [facility] ACTIN (SMOOTH MUSCLE) 2022-12-30 16:29:00 Rosalee [facility] ANTIBODY, IGG [facility] TITER AND PATTERN 2022-12-30 16:29:00 Rosalee [facility] MITOCHONDRIAL AB SCREEN 2022-12-30 16:29:00 [facility] MITOCHONDRIAL AB TITER 2022-12-30 16:29:00 Rosalee Marisabelher Ken burris [facility] [id number], 2022-12-30 15:51:00 Rosalee [facility] PROTHROMBIN TIME/INR 2022-12-30 15:51:00 [facility] LACTATE DEHYDROGENASE 2022-12-30 15:48:00 [facility] ([facility]H) [facility] COMPREHENSIVE METABOLIC 2022-12-30 15:48:00 Rosalee [facility] PANEL [facility] MAGNESIUM 2022-12-30 15:48:00 [facility] CALCIUM, IONIZED 2022-12-30 15:48:00 [facility] PHOSPHORUS 2022-12-30 15:48:00 [facility] CBC W/PLT COUNT & AUTO 2022-12-30 15:48:00 [facility] DIFFERENTIAL [facility] TYPE AND SCREEN, AUTOMATED 2022-12-30 15:48:00 [facility] CBC W/PLT COUNT & AUTO 2022-12-30 15:48:00 [facility] XR CHEST 1 VIEW PORTABLE / 2022-12-30 14:22:[address] [facility] US PARACENTESIS 2022-12-30 12:34:[address] [facility] BODY FLUID CULTURE + GRAM 2022-12-30 12:15:00 Marisabel Ho [facility] PROTEIN, BODY FLUID 2022-12-30 12:15:[address] [facility] ALBUM[facility], BODY FLUID 2022-12-30 12:15:[address] [facility] AMYLASE PERITONEAL FLUID 2022-12-30 12:15:00 [facility] MISCELLANEOUS LAB ORDER 2022-12-30 12:15:00 Marisabel Ho [facility] BODY FLUID CELL COUNT WITH 2022-12-30 11:59:00 Marisabel Ho [facility] CT ABDOMEN/PELVIS WITH IV 2022-12-30 10:45:00 Margie Allred [facility] CONTRAST [facility] BODY FLUID CELL COUNT WITH 2022-12-30 10:01:00 Marisabel Ho [facility] ALBUMIN PLEURAL FLUID 2022-12-30 10:01:00 Major Murry [facility] GLUCOSE PLEURAL FLUID 2022-12-30 10:01:00 Major Murry [facility] LACTATE DEHYDROGENASE 2022-12-30 10:01:00 [facility]LE[facility] er PH, BODY FLUID 2022-12-30 10:01:00 Major Murry [facility] PROTEIN, TOTAL, PLEURAL 2022-12-30 10:01:00 Mark Wei [facility] CYTOLOGY 2022-12-30 09:33:[address] [facility] BODY FLUID CULTURE + GRAM 2022-12-30 09:27:00 Marisabel Ho [facility] MISCELLANEOUS LAB ORDER 2022-12-30 09:26:00 Lima Spear [facility] BLOOD CULTURE 2022-12-29 23:16:00 [facility] URINALYSIS W/ MICROSCOPIC 2022-12-29 21:23:00 Austyn Bae [facility] PROTEIN, RANDOM URINE 2022-12-29 21:23:00 [facility] CREATININE, RANDOM URINE 2022-12-29 21:23:00 [facility] PROCALCITONIN 2022-12-29 17:04:00 [facility] LACTIC ACID, VENOUS 2022-12-29 17:04:00 [facility] XR CHEST 1 VIEW PORTABLE / 2022-12-29 15:48:00 Marisabel Ho [facility] B-TYPE NATRIURETIC FACTOR 2022-12-29 14:58:00 Marisabel Ho [facility] (BNP) [facility] CBC W/PLT COUNT & AUTO 2022-12-29 13:10:00 Marisabel Ho [facility] COMPREHENSIVE METABOLIC 2022-12-29 13:10:[address] [facility] PROTHROMBIN TIME/INR 2022-12-29 13:10:00 Marisabel Ho [facility] MAGNESIUM 2022-12-29 13:10:[address] [facility] CBC W/PLT COUNT & AUTO 2022-12-29 13:10:00 [facility] PREPARE PLASMA 2022-12-01 23:54:00 Dipak Stevenson [facility] CBC (HEMOGRAM ONLY) 2022-12-01 03:41:00 Graham [facility] COMPREHENSIVE METABOLIC 2022-12-01 03:41:[address] [facility] REPORT OF PROCEDURE - 2022-11-30 12:20:26 Arcenio Lazo [facility] ENDOSCOPY [facility] FL FLUORO NON-SPECIFIC UP 2022-11-30 09:10:00 Jeannette, [facility] TO 1 HOUR [facility] FINE NEEDLE ASPIRATION BY 2022-11-30 08:48:00 Jeannette, [facility] FINE NEEDLE ASPIRATE (FNA) 2022-11-30 08:48:00 Jeannette, [facility] ESOPHAGOSCOPY, WITH 2022-11-30 08:16:00 Jeannette, [facility] CH I [facility] ENDOSCOPIC ULTRASOUND Medical Ce nter ULTRASOUND, UPPER GI 2022-11-30 08:16:00 [facility] TRACT, ENDOSCOPIC, [facility] FINE NEEDLE ASPIRATION PROCEDURE W/ C-ARM 2022-11-30 08:16:00 Jeannette, [facility] TRANSFUSE PLASMA 2022-11-30 05:15:00 Graham [facility] CBC (HEMOGRAM ONLY) 2022-11-30 03:22:00 Graham [facility] METABOLIC 2022-11-30 03:22:00 Graham [facility] PROTHROMBIN TIME/INR 2022-11-30 03:22:00 Graham [facility] PROTHROMBIN TIME/INR 2022-11-29 22:46:00 Lizzie [facility] TYPE AND SCREEN, AUTOMATED 2022-11-29 22:46:00 Graham [facility] ANTIBODY SCREEN 2022-11-29 22:46:[address] [facility] [place] HEPATOBILIARY (HIDA) 2022-11-29 12:01:00 Dipak Arreola [facility] SCAN WITH [facility] Medical Cente r FRACTION CBC (HEMOGRAM ONLY) 2022-11-29 04:42:00 Graham [facility] METABOLIC 2022-11-29 04:42:00 Graham [facility] CBC (HEMOGRAM ONLY) 2022-11-28 00:55:00 Graham [facility] METABOLIC 2022-11-28 00:55:00 Graham [facility] CBC (HEMOGRAM ONLY) 2022-11-27 04:39:00 Graham [facility] COMPREHENSIVE METABOLIC 2022-11-27 04:39:00 Graham [facility] CBC W/PLT COUNT & AUTO 2022-11-26 04:43:[address] [facility] BASIC METABOLIC PANEL 2022-11-26 04:43:00 Castillo [facility] HEPATIC FUNCTION PANEL 2022-11-26 04:43:00 Castillo [facility] CBC W/PLT COUNT & AUTO 2022-11-26 04:43:[address] [facility] PROTHROMBIN TIME/INR 2022-11-26 04:43:00 Castillo [facility] MR ABDOMEN WITHOUT IV 2022-11-25 21:58:00 Castillo [facility] CONTRAST [facility] US ABDOMEN LIMITED 2022-11-25 16:23:00 Castillo [facility] URINE CULTURE 2022-11-25 09:58:00 Castillo [facility] URINALYSIS W/ REFLEX URINE 2022-11-25 09:58:00 Castillo [facility] ABORH, MANUAL 2022-11-25 08:39:00 Leydi Gaitan [facility] CBC W/PLT COUNT & AUTO 2022-11-25 06:36:00 Judi Vigil [facility] CBC W/PLT COUNT & AUTO 2022-11-25 06:36:00 Judi Vigil [facility] COMPREHENSIVE METABOLIC 2022-11-25 06:36:00 Judi Vigil [facility] MAGNESIUM 2022-11-25 06:36:00 Judi Vigil [facility] PHOSPHORUS 2022-11-25 06:36:00 Judi Vigil [facility] PROTHROMBIN TIME/INR 2022-11-25 06:36:00 Judi Vigil [facility] BILIRUBIN, DIRECT 2022-11-25 06:36:00 Kelly Finley [facility] TYPE AND SCREEN, AUTOMATED 2022-11-25 06:35:00 Kirk Vigil [facility] Plan of Care Planned Activity Planned Date Details Comments Source Future Scheduled 2023-12-30 Tobacco Cessation [facility] Test 00:00:00 [facility] Screening (12+) [code = Tobacco Cessation Counseling and Screening (12+)] Future Scheduled 2023-07-18 [facility] Test 11:01:01 malignant neoplasm of colon (procedure) [code = 959472984] Future Scheduled 2023-07-18 [facility] Test 11:01:01 malignant neoplasm of colon (procedure) [code = 347791637] Future Scheduled 2023-07-18 [facility] Test 11:01:01 malignant neoplasm of colon (procedure) [code = 581895001] Future Scheduled 2023-07-18 [facility] Test 11:01:01 malignant neoplasm of colon (procedure) [code = 409035211] Future Scheduled 2023-07-18 [facility] Test 11:01:01 malignant neoplasm of colon (procedure) [code = 775721247] Future Scheduled 2023-07-18 [facility] Test 11:01:01 malignant neoplasm of colon (procedure) [code = 234400679] Future Scheduled 2023-07-18 COVID-19 VACCINE (#1) Me [facility] Test 11:01:01 [code = COVID-19 VACCINE (#1)] Future Scheduled 2023-07-18 [facility] Test 11:01:01 malignant neoplasm of cervix (procedure) [code = 915776874] Future Scheduled 2023-07-18 BREAST CANCER [facility] Test 11:01:01 SCREENING [code = BREAST CANCER SCREENING] Future Scheduled 2023-07-18 [facility] Test 11:01:01 malignant neoplasm of colon (procedure) [code = 749758502] Future Scheduled 2023-07-18 [facility] Test 11:01:01 malignant neoplasm of colon (procedure) [code = 945131739] Future Scheduled 2023-07-18 SHINGLES VACCINES (1 Met [facility] Test 11:01:01 of 2) [code = SHINGLES VACCINES (1 of 2)] Future Scheduled 2023-07-18 INFLUENZA VACCINE (#1) [facility] Hospital Test 11:01:01 [code = INFLUENZA VACCINE (#1)] Future Scheduled 2023-07-18 COVID-19 VACCINE (#1) [facility] Test 11:01:01 [code = COVID-19 VACCINE (#1)] Future Scheduled 2023-07-18 [facility] Test 11:01:01 malignant neoplasm of cervix (procedure) [code = 973071259] Future Scheduled 2023-07-18 BREAST CANCER [facility] Test 11:01:01 SCREENING [code = BREAST CANCER SCREENING] Future Scheduled 2023-07-18 [facility] Test 11:01:01 malignant neoplasm of colon (procedure) [code = 753105252] Future Scheduled 2023-07-18 Screening for [facility] Test 11:01:01 malignant neoplasm of colon (procedure) [code = 915182723] Future Scheduled 2023-07-18 SHINGLES VACCINES (1 Met [facility] Test 11:01:01 of 2) [code = SHINGLES VACCINES (1 of 2)] Future Scheduled 2023-07-18 INFLUENZA VACCINE (#1) [facility] Hospital Test 11:01:01 [code = INFLUENZA VACCINE (#1)] Future Scheduled 2023-07-09 [facility] Test 02:09:46 malignant neoplasm of colon (procedure) [code = 211616355] Future Scheduled 2023-07-09 [facility] Test 02:09:46 malignant neoplasm of colon (procedure) [code = 910462899] Future Scheduled 2023-07-09 [facility] Test 02:09:46 malignant neoplasm of colon (procedure) [code = 737444357] Future Scheduled 2023-07-09 COVID-19 VACCINE (#1) [facility] Test 02:09:46 [code = COVID-19 VACCINE (#1)] Future Scheduled 2023-07-09 [facility] Test 02:09:46 malignant neoplasm of cervix (procedure) [code = 953722816] Future Scheduled 2023-07-09 BREAST CANCER [facility] Test 02:09:46 SCREENING [code = BREAST CANCER SCREENING] Future Scheduled 2023-07-09 [facility] Test 02:09:46 malignant neoplasm of colon (procedure) [code = 055239934] Future Scheduled 2023-07-09 [facility] Test 02:09:46 malignant neoplasm of colon (procedure) [code = 593438147] Future Scheduled 2023-07-09 SHINGLES VACCINES ([facility] 02:09:46 of 2) [code = SHINGLES VACCINES (1 of 2)] Future Scheduled 2023-07-09 INFLUENZA VACCINE (#1) [facility] Test 02:09:46 [code = INFLUENZA VACCINE (#1)] Future Scheduled 2023-05-18 [facility] 08:41:31 malignant neoplasm of colon (procedure) [code = 751774138] Future Scheduled 2023-05-18 [facility]ING[facility]INES ([facility] 08:41:31 of 2) [code = SHINGLES VACCINES (1 of 2)] Future Scheduled 2023-05-18 [facility] Test 08:41:31 [code = INFLUENZA VACCINE (#1)] Future Scheduled 2023-05-18 [facility] 08:41:31 malignant neoplasm of colon (procedure) [code = 819049158] Future Scheduled 2023-05-18 [facility] 08:41:31 malignant neoplasm of colon (procedure) [code = 245969533] Future Scheduled 2023-05-18 [facility] 08:41:31 malignant neoplasm of colon (procedure) [code = 637540655] Future Scheduled 2023-05-18 COVID-19 [facility]ACCINE (#[facility] 08:41:31 [code = COVID-19 VACCINE (#1)] Future Scheduled 2023-05-18 [facility] Test 08:41:31 malignant neoplasm of cervix (procedure) [code = 792798668] Future Scheduled 2023-05-18 BREAST CANCER [facility] Test 08:41:31 SCREENING [code = BREAST CANCER SCREENING] Future Scheduled 2023-05-18 [facility] Test 08:41:31 malignant neoplasm of colon (procedure) [code = 210745415] Future Scheduled 2023-05-[address] [facility] [...] (Season Ended)] Future Scheduled 2023-04-21 [facility] Test 16:10:33 malignant neoplasm of colon (procedure) [code = 265329941] Future Scheduled 2023-04-21 [facility] 16:10:33 malignant neoplasm of colon (procedure) [code = 281177460] Future Scheduled 2023-04-21 [facility] 16:10:33 malignant neoplasm of colon (procedure) [code = 465171101] Future Scheduled 2023-04-21 COVID-19 VACCINE (#1) [facility] Test 16:10:33 [code = COVID-19 VACCINE (#1)] Future Scheduled 2023-04-21 [facility] Test 16:10:33 malignant neoplasm of cervix (procedure) [code = 036711561] Future Scheduled 2023-04-21 BRE[facility] CANCER [facility] 16:10:33 SCREENING [code = BREAST CANCER SCREENING] Future Scheduled 2023-04-21 [facility] 16:10:33 malignant neoplasm of colon (procedure) [code = 458889668] Future Scheduled 2023-04-21 [facility] 16:10:33 malignant neoplasm of colon (procedure) [code = 946161182] Future Scheduled 2023-04-21 SHINGLES VACCINES (1 [facility] 16:10:33 of 2) [code = SHINGLES VACCINES (1 of 2)] Future Scheduled 2023-04-21 [facility]ACCINE [facility] 16:10:33 [code = INFLUENZA VACCINE] Future Scheduled 2023-04-12 [facility] Test 15:44:48 malignant neoplasm of colon (procedure) [code = 454371720] Future Scheduled 2023-04-12 [facility] 15:44:48 malignant neoplasm of colon (procedure) [code = 704385550] Future Scheduled 2023-04-12 [facility] 15:44:48 malignant neoplasm of colon (procedure) [code = 324251745] Future Scheduled 2023-04-12 COVID-19 VACCINE (#1) [facility] 15:44:48 [code = COVID-19 VACCINE (#1)] Future Scheduled 2023-04-12 [facility] 15:44:48 malignant neoplasm of cervix (procedure) [code = 977213569] Future Scheduled 2023-04-12 BRE[facility] CANCER [facility] 15:44:48 SCREENING [code = BREAST CANCER SCREENING] Future Scheduled 2023-04-12 [facility] 15:44:48 malignant neoplasm of colon (procedure) [code = 435752274] Future Scheduled 2023-04-12 [facility] 15:44:48 malignant neoplasm of colon (procedure) [code = 838256803] Future Scheduled 2023-04-12 SHINGLES VACCINES (1 [facility] 15:44:48 of 2) [code = SHINGLES VACCINES (1 of 2)] Future Scheduled 2023-04-12 INFLUENZA VACCINE [facility] 15:44:48 [code = INFLUENZA VACCINE] Future Scheduled 2023-04-01 [facility] 11:23:59 malignant neoplasm of colon (procedure) [code = 339204685] Future Scheduled 2023-04-01 [facility] 11:23:59 malignant neoplasm of colon (procedure) [code = 105898425] Future Scheduled 2023-04-01 [facility] 11:23:59 malignant neoplasm of colon (procedure) [code = 715252532] Future Scheduled 2023-04-01 COVID-19 VACCINE (#1) [facility] 11:23:59 [code = COVID-19 VACCINE (#1)] Future Scheduled 2023-04-01 [facility] 11:23:59 malignant neoplasm of cervix (procedure) [code = 308667453] Future Scheduled 2023-04-01 BRE[facility] CANCER [facility] 11:23:59 SCREENING [code = BREAST CANCER SCREENING] Future Scheduled 2023-04-01 [facility] 11:23:59 malignant neoplasm of colon (procedure) [code = 984344316] Future Scheduled 2023-04-01 [facility] 11:23:59 malignant neoplasm of colon (procedure) [code = 585479320] Future Scheduled 2023-04-01 SHINGLES VACCINES (1 [facility] 11:23:59 of 2) [code = SHINGLES VACCINES (1 of 2)] Future Scheduled 2023-04-01 INFLUENZA VACCINE [facility] 11:23:59 [code = INFLUENZA VACCINE] Future Scheduled 2023-03-11 [facility] Test 10:38:56 malignant neoplasm of colon (procedure) [code = 416154503] Future Scheduled 2023-03-11 [facility] 10:38:56 malignant neoplasm of colon (procedure) [code = 330797304] Future Scheduled 2023-03-11 [facility] 10:38:56 malignant neoplasm of colon (procedure) [code = 857923678] Future Scheduled 2023-03-11 COVID-19 VACCINE (#1) [facility] Test 10:38:56 [code = COVID-19 VACCINE (#1)] Future Scheduled 2023-03-11 [facility] Test 10:38:56 malignant neoplasm of cervix (procedure) [code = 186293023] Future Scheduled 2023-03-11 BRE[facility] CANCER [facility] 10:38:56 SCREENING [code = BREAST CANCER SCREENING] Future Scheduled 2023-03-11 [facility] Test 10:38:56 malignant neoplasm of colon (procedure) [code = 885649267] Future Scheduled 2023-03-11 [facility] Test 10:38:56 malignant neoplasm of colon (procedure) [code = 028798321] Future Scheduled 2023-03-11 SHINGLES VACCINES (1 [facility] 10:38:56 of 2) [code = SHINGLES VACCINES (1 of 2)] Future Scheduled 2023-03-11 INFLUENZA VACCINE [facility] 10:38:56 [code = INFLUENZA VACCINE] Future Scheduled 2023-02-14 [facility] Test 23:01:21 malignant neoplasm of colon (procedure) [code = 021623616] Future Scheduled 2023-02-14 [facility] 23:01:21 malignant neoplasm of colon (procedure) [code = 439833969] Future Scheduled 2023-02-14 [facility] 23:01:21 malignant neoplasm of colon (procedure) [code = 486032648] Future Scheduled 2023-02-14 COVID-19 VACCINE (#1) [facility] Test 23:01:21 [code = COVID-19 VACCINE (#1)] Future Scheduled 2023-02-14 [facility] Test 23:01:21 malignant neoplasm of cervix (procedure) [code = 994184550] Future Scheduled 2023-02-14 BRE[facility] CANCER [facility] 23:01:21 SCREENING [code = BREAST CANCER SCREENING] Future Scheduled 2023-02-14 [facility] 23:01:21 malignant neoplasm of colon (procedure) [code = 247098379] Future Scheduled 2023-02-14 [facility] Test 23:01:21 malignant neoplasm of colon (procedure) [code = 042971586] Future Scheduled 2023-02-14 SHINGLES VACCINES (1 Met [facility] Test 23:01:21 of 2) [code = SHINGLES VACCINES (1 of 2)] Future Scheduled 2023-02-14 INFLUENZA VACCINE [facility] Test 23:01:21 [code = INFLUENZA VACCINE] Future Scheduled 2023-01-06 COLONOSCOPY SCREENING [facility] Test 08:48:32 [code = COLONOSCOPY SCREENING] Future Scheduled 2023-01-06 SHINGLES VACCINES (1 Met [facility] Test 08:48:32 of 2) [code = SHINGLES VACCINES (1 of 2)] Future Scheduled 2023-01-06 INFLUENZA VACCINE Method [facility] Test 08:48:32 [code = INFLUENZA VACCINE] Future Scheduled 2023-01-06 COVID-19 VACCINE (#1) [facility] Test 08:48:32 [code = COVID-19 VACCINE (#1)] Future Scheduled 2023-01-06 [facility] Test 08:48:32 malignant neoplasm of cervix (procedure) [code = 150336086] Future Scheduled 2023-01-06 BREAST CANCER [facility] Test 08:48:32 SCREENING [code = BREAST CANCER SCREENING] Future Scheduled 2022-12-17 COVID-19 VACCINE (#1) [facility] Test 12:12:44 [code = COVID-19 VACCINE (#1)] Future Scheduled 2022-12-17 Screening for [facility] Test 12:12:44 malignant neoplasm of cervix (procedure) [code = 984014562] Future Scheduled 2022-12-17 BREAST CANCER [facility] Test 12:12:44 SCREENING [code = BREAST CANCER SCREENING] Future Scheduled 2022-12-17 COLONOSCOPY SCREENING [facility] Test 12:12:44 [code = COLONOSCOPY SCREENING] Future Scheduled 2022-12-17 SHINGLES VACCINES (1 Met [facility] Test 12:12:44 of 2) [code = SHINGLES VACCINES (1 of 2)] Future Scheduled 2022-12-17 INFLUENZA VACCINE Method [facility] Test 12:12:44 [code = INFLUENZA VACCINE] Future Scheduled 2022-12-17 COVID-19 VACCINE (#1) [facility] Test 12:12:44 [code = COVID-19 VACCINE (#1)] Future Scheduled 2022-12-17 Screening for [facility] Test 12:12:44 malignant neoplasm of cervix (procedure) [code = 708420128] Future Scheduled 2022-12-17 BREAST CANCER [facility] Test 12:12:44 SCREENING [code = BREAST CANCER SCREENING] Future Scheduled 2022-12-17 COLONOSCOPY SCREENING [facility] Test 12:12:44 [code = COLONOSCOPY SCREENING] Future Scheduled 2022-12-17 SHINGLES VACCINES (1 Met [facility] Test 12:12:44 of 2) [code = SHINGLES VACCINES (1 of 2)] Future Scheduled 2022-12-17 INFLUENZA VACCINE Method [facility] Test 12:12:44 [code = INFLUENZA VACCINE] Future Scheduled 2022-09-05 COLONOSCOPY SCREENING [facility] Test 11:52:03 [code = COLONOSCOPY SCREENING] Future Scheduled 2022-09-05 SHINGLES VACCINES (1 Met [facility] Test 11:52:03 of 2) [code = SHINGLES VACCINES (1 of 2)] Future Scheduled 2022-09-05 INFLUENZA VACCINE Method [facility] Test 11:52:03 [code = INFLUENZA VACCINE] Future Scheduled 2022-09-05 COVID-19 VACCINE (#1) [facility] Test 11:52:03 [code = COVID-19 VACCINE (#1)] Future Scheduled 2022-09-05 Screening for [facility] Test 11:52:03 malignant neoplasm of cervix (procedure) [code = 161683323] Future Scheduled 2022-09-05 BREAST CANCER [facility] Test 11:52:03 SCREENING [code = BREAST CANCER [...] [facility] Test 00:00:00 (procedure) [code = [facility] 13034324] Future Scheduled [address] [facility] Test 00:00:00 (procedure) [code = [facility] 01057723] Future Scheduled [address] [facility] Test 00:00:00 (procedure) [code = [facility] 99516955] Future Scheduled [address] [facility] 00:[facility]:00 [facility] cervix (procedure) [code = 126679213] Future Scheduled [address] [facility] Test 00:00:00 [facility] cervix (procedure) [code = 850459613] Future Scheduled [address] [facility] Test 00:00:00 [facility] cervix (procedure) [code = 584301842] Future Scheduled 1983 DTAP/TDAP/TD VACCINES [facility] [...] [facility] breast (procedure) [code = 979008251] Future Scheduled [address] [facility] 00:00:00 (combo) [code = CT Medical C enter Colonography (combo)] Future Scheduled [address] [facility] Test 00:00:00 malignant [facility] colon (procedure) [code = 032360363] Future Scheduled [address] [facility] Test 00:00:00 malignant [facility] colon (procedure) [code = 387301836] Future Scheduled [address] [facility] Test 00:00:00 malignant neoplasm of [facility] colon (procedure) [code = 257987803] Future Scheduled [address] [facility] Test 00:00:00 malignant neoplasm of [facility] colon (procedure) [code = 303826967] Future Scheduled 1964 [facility]oid[facility] [address] [facility] Test 00:00:00 malignant neoplasm of [facility] breast (procedure) [code = 224262273] Future Scheduled [address] [facility] 00:00:00 (combo) [code = CT Medical C enter Colonography (combo)] Future Scheduled [address] [facility] Test 00:00:00 malignant [facility] colon (procedure) [code = 426454329] Future Scheduled [address] [facility] Test 00:00:00 malignant neoplasm of [facility] colon (procedure) [code = 188111143] Future Scheduled [address] [facility] Test 00:00:00 malignant [facility]oplasm of [facility] colon (procedure) [code = 915608923] Future Scheduled [address] [facility] Test 00:00:00 [facility] colon (procedure) [code = 323505611] Future Scheduled 1964 [facility] Future Scheduled [address] [facility] Test 00:00:00 malignant [facility]oplasm [facility] breast (procedure) [code = 185673383] Future Scheduled [address] [facility] 00:00:00 (combo) [code = CT Medical C enter Colonography (combo)] Future Scheduled [address] [facility] Test 00[facility]00:00 malignant [facility] colon (procedure) [code = 273697660] Future Scheduled [address] [facility] Test 00:00:00 malignant [facility]oplasm [facility] colon (procedure) [code = 500413102] Future Scheduled [address] [facility] Test 00:00:00 malignant neoplasm of [facility] colon (procedure) [code = 942532755] Future Scheduled [address] [facility] Test 00:00:00 malignant neoplasm of [facility] colon (procedure) [code = 280711404] Future Scheduled 1964 [facility] Start End Encounter Admission Attending Care Care Encounter Source Date/Time Date/Time Type Type Clinicians Facility Department ID 2023-07-21 Inpatient JOLLY SANZ [facility] [id number] [facility] 13:53:36 AM[facility] 2023-07-21 [id number] 13:53:27 AMBOY 2023-07-18 Inpatient KAMLESH CORONADO [facility] [id number] [facility] 12:17:10 2023-07-18 Inpatient EL BRIGIDA, SLE SLE [id number] SLEH 09:50:20 [facility] 2023-07-18 Inpatient EL BRIGIDA, SLE SLE [id number] SLEH 09:50:13 [facility] 2023-07-10 Inpatient EL TYRA, SLE SLE [id number] SLEH 08:21:43 KADI 2023-05-31 Inpatient ER BRANDON, SLE SLE [id number] SLEH 19:08:07 ZAKIA 2023-05-30 Inpatient ER GEORGE, SLE SLE [id number] SLEH 13:32:25 LUPE 2023-05-30 Inpatient ER LETTESPERANZA, SLEH SLEH [id number] SLEH 05:24:23 APRYL 2023-05-27 Inpatient ER OSVALDO, SLEH SLEH [id number] SLEH 10:03:20 DANUTA 2023-05-17 Inpatient ER CARLOS RAY SLEH SLEH [id number] SLEH 10:10:22 2023-05-13 Inpatient ER BLACK, SLEH SLEH [id number] SLEH 17:57:59 JONI-UY 2023-05-13 Inpatient ER BLACK, SLEH SLEH [id number] SLEH 17:13:16 JONI-U 2023-03-21 Inpatient ER BLACK, SLEH SLEH [id number] SLEH 16:28:17 [facility] 2023-03-21 Inpatient ER DUSTY, SLEH SLEH [id number] SLEH 13:20:03 [facility] 2023-03-21 Inpatient ER DUSTY, SLEH SLEH [id number] SLEH 12:01:44 [facility] 2023-03-19 Inpatient ER BRANN, SLEH SLEH [id number] [facility] 06:54:39 [facility] 2023-03-19 Inpatient ER BRANN, SLEH SLEH [id number] [facility] 06:54:33 [facility] 2023-03-19 Inpatient ER HERMAN, SLEH SLEH [id number] SLEH 05:45:27 PAUL 2023-02-17 Inpatient ER HAMIDA, SLEH SLEH [id number] SLEH 07:06:50 [facility] 2023-02-17 Inpatient ER HAMIDA, SLEH SLEH [id number] SLEH 07:04:58 [facility] 2023-10-06 2023-10-06 Outpatient EL SLEH SLEH [id number] SLEH 00:00:00 00:00:00 2023-10-06 2023-10-06 Outpatient EL SLEH SLEH [id number] SLEH 00:00:00 00:00:00 2023-08-11 2023-08-11 Outpatient EL SLEH SLEH [id number] SLEH 00:00:00 00:00:00 2023-08-11 2023-08-11 Outpatient EL SLEH SLEH [id number] SLEH 00:00:00 00:00:00 2023-08-08 2023-08-08 Outpatient EL SLEH SLEH [id number] SLEH 00:00:00 00:00:00 2023-08-05 2023-08-05 Outpatient EL SLEH SLEH [id number] SLEH 00:00:00 00:00:00 2023-08-05 2023-08-05 Outpatient EL SLEH SLEH [id number] SLEH 00:00:00 00:00:00 2023-08-01 2023-08-01 Outpatient EL SLEH SLEH [id number] SLEH 00:00:00 00:00:00 2023-08-01 2023-08-01 Outpatient EL SLEH SLE [id number] SLEH 00:00:00 00:00:00 2023-07-28 2023-07-28 Outpatient EL CARLOS RAY SLE SLE [id number] SLEH 10:52:58 23:59:00 2023-07-28 2023-07-28 Outpatient EL NATHALIA, SLE SLE [id number] SLEH 07:12:57 10:51:00 MIKAEL 2023-07-28 2023-07-28 Outpatient EL NATHALIA SLE SLE [id number] SLEH 07:12:23 10:51:00 MIKAEL 2023-07-25 2023-07-25 Outpatient EL GEORGE, SLE SLE [id number] SLEH 11:49:44 23:59:00 LUPE 2023-07-25 2023-07-25 Outpatient EL ISHA, SLE SLE [id number] SLEH 09:30:41 11:48:00 BEBE 2023-07-17 2023-07-22 Inpatient ER , SLE Transplant [id number] SLEH 08:06:00 14:19:00 RIGO 2023-07-21 2023-07-21 Outpatient EL OSVALDO, SLEH SLEH [id number] SLEH 15:20:18 15:20:18 DANUTA 2023-07-21 2023-07-21 Outpatient EL SLE SLE [id number] SLEH 00:00:00 00:00:00 2023-07-21 2023-07-21 Outpatient EL SLE SLE [id number] SLEH 00:00:00 00:00:00 2023-07-19 2023-07-19 Outpatient EL SLE SLE [id number] SLEH 00:00:00 00:00:00 2023-07-19 2023-07-19 Outpatient GLENN MARTINS SLE [id number] SLEH 00:00:00 00:00:00 ROBERTOU-RAI 2023-07-19 2023-07-19 Outpatient JOLLY SLE SLE [id number] SLEH 00:00:00 00:00:00 2023-07-19 2023-07-19 Outpatient GLENN MARTINS SLE [id number] SLEH 00:00:00 00:00:00 ROBERTOU-RAI 2023-07-18 2023-07-18 Outpatient CARLOS HANLEY SLE SLE [id number] SLEH 12:14:28 12:14:28 2023-07-18 2023-07-18 Outpatient JOLLY [facility] SLE [id number] SLEH 00:00:00 00:00:00 ROBERTOU-RAI 2023-07-18 2023-07-18 Outpatient JOLLY SLE SLE [id number] SLEH 00:00:00 00:00:00 2023-07-17 2023-07-17 Outpatient JOLLY ALLRED [facility] [id number] SLEH 10:02:48 10:02:48 MARGIE 2023-07-14 2023-07-14 Outpatient JOLLY BLACK SLE SLE [id number] SLEH 10:45:12 23:59:00 MARSHA 2023-07-14 2023-07-14 Outpatient GLENN MARTINS SLE [id number] SLEH 06:42:04 10:44:00 ROBERTOU-RAI 2023-07-14 2023-07-14 Outpatient GLENN MARTINS SLE [id number] SLEH 06:41:35 06:41:35 ELISSA-RAI 2023-07-05 2023-07-12 Inpatient ER TYRA SLEH Emergency 20 [id number] SLE 01:05:00 12:21:00 KADI 2023-07-11 2023-07-11 Outpatient VIRGILIO ELLIOTT SLE [id number] SLE 06:07:22 06:07:22 KADI 2023-07-10 2023-07-10 Outpatient CARLOS HANLEY SLE SLE [id number] SLEH 09:44:51 09:44:51 2023-07-09 2023-07-09 Outpatient GLENN ELLIOTT SLE [id number] SLE 00:00:00 00:00:00 KADI 2023-07-07 2023-07-07 Outpatient GLENN ELLIOTT SLE [id number] SLE 15:59:35 15:59:35 KADI 2023-07-07 2023-07-07 Outpatient GLENN MARTINS SLE [id number] SLE 00:00:00 00:00:00 ROBERTOU-RAI 2023-07-07 2023-07-07 [id number] SLE 00:00:00 00:00:00 TZU-RAI 2023-07-07 2023-07-07 [facility] [id number] SLE 00:00:00 00:00:00 TZU-RAI 2023-07-07 2023-07-07 Outpatient GLENN MARTINS SLE [id number] SLEH 00:00:00 00:00:00 ROBERTOU-RAI 2023-07-06 2023-07-06 Outpatient JOLLY GUEVARA SLE SLE [id number] SLEH 11:54:59 11:54:59 KEANU 2023-07-05 2023-07-05 Outpatient VIRGILIO GASTELUM SLE [id number] SLEH 14:53:12 14:53:12 KEANU 2023-07-05 2023-07-05 Emergency VIRGILIO DONALD SLE [id number] SLEH 01:39:35 01:39:35 GOLDEN 2023-07-05 2023-07-05 Outpatient VIRGILIO DONALD [facility] [id number] SLEH 01:28:55 01:28:55 GOLDEN 2023-07-04 2023-07-04 Outpatient EL GEORGE, SLEH SLEH [id number] SLEH 10:38:23 23:59:00 LUPE 2023-07-04 2023-07-04 Outpatient JOLLY COX, SLEH SLEH [id number] SLEH 08:06:23 10:37:00 ELISSA-RAI 2023-06-30 2023-06-30 Outpatient EL OSVALDO, SLEH SLEH [id number] SLEH 12:12:53 23:59:00 DANUTA 2023-06-30 2023-06-30 Outpatient EL SLEH SLEH [id number] SLEH 13:33:52 13:33:52 2023-06-30 2023-06-30 Outpatient JOLLY COX, SLEH SLEH [id number] SLEH 08:07:43 12:11:00 EILSSA-RAI 2023-06-30 2023-06-30 Outpatient JOLLY COX SLEH SLE [id number] SLEH 08:07:12 08:06:00 ROBERTOU-RAI 2023-06-27 2023-06-28 Emergency ER BICETTE, SLEH Emergency [id number] SLEH 22:50:00 06:17:00 [facility] 2023-06-28 2023-06-28 Emergency EL BICETTE, SLEH SLEH [id number] SLEH 03:52:10 03:52:10 [facility] 2023-06-28 2023-06-28 Emergency EL BICETTE, SLEH SLEH [id number] SLEH 03:52:05 03:52:05 [facility] 2023-06-28 2023-06-28 Outpatient JOLLY NORWOOD, SLEH SLEH [id number] SLEH 00:10:53 00:10:53 PAO 2023-06-27 2023-06-27 Outpatient EL OSVALDO, SLEH SLEH [id number] SLEH 08:43:28 22:49:00 DANUTA 2023-06-27 2023-06-27 Outpatient JOLLY COX SLEH SLEH [id number] SLEH 07:47:59 08:42:00 ROBERTOU-RAI 2023-06-23 2023-06-23 Outpatient EL OSVALDO, SLEH SLEH [id number] SLEH 09:31:56 23:59:00 DANUTA 2023-06-23 2023-06-23 Outpatient JOLLY COX SLEH SLEH [id number] SLEH 07:00:50 09:30:00 TZU-RAI 2023-06-23 2023-06-23 Outpatient JOLLY COX SLE SLE [id number] SLEH 07:00:38 09:30:00 [facility] 2023-06-20 2023-06-20 Emergency ER MARY HARP SLE Emergency [id number] SLEH 09:15:00 20:10:00 2023-06-20 2023-06-20 Outpatient JOLLY BLACK SLEH SLE [id number] SLEH 17:11:31 17:11:31 [facility] 2023-06-20 2023-06-20 Emergency JOLLY GARCIA SLE SLE [id number] SLEH 14:41:30 14:41:30 [facility] 2023-06-20 2023-06-20 Emergency JOLLY GARCIA SLEH SLE [id number] SLEH 12:08:48 12:08:48 [facility] 2023-06-20 2023-06-20 Outpatient JOLLY GARCIA SLE SLE [id number] SLEH 09:48:47 09:48:47 [facility] 2023-06-20 2023-06-20 Outpatient JOLLY COX SLE SLE [id number] SLEH 00:00:00 00:00:00 ELISSA-RAI 2023-06-16 2023-06-16 Outpatient KIMMY MARTINS [facility] [id number] [facility] 08:14:27 23:59:00 ROBERTOU-RAI 2023-06-16 2023-06-16 Outpatient KIMMY MARTINS [facility] [id number] [facility] 00:00:00 00:00:00 ROBERTOU-RAI 2023-06-15 2023-06-15 Outpatient JOLLY GEORGE [facility] [id number] SLE[facility] 16:47:28 23:59:00 LUPE 2023-06-15 2023-06-15 Outpatient [facility] ALFREDO [facility] [id number] [facility] 12:42:18 16:46:00 SAMANTHA 2023-06-14 2023-06-14 [facility] [id number] [facility] 00:00:00 00:00:00 2023-06-13 2023-06-13 Outpatient [facility] [id number] [facility] 10:05:16 23:59:00 JONI-UY 2023-06-13 2023-06-13 [facility] [id number] [facility] 10:56:23 10:56:23 2023-06-13 2023-06-13 Outpatient [facility] [id number] [facility] 08:03:50 10:04:00 SAMANTHA 2023-06-10 2023-06-10 Outpatient VIRGILIO RUSSO SLEH [id number] SLEH 00:00:00 00:00:00 SAMANTHA 2023-06-10 2023-06-10 Outpatient VIRGILIO MINOR SLE [id number] SLEH 00:00:00 00:00:00 SAMUEL 2023-06-09 2023-06-09 Outpatient KIMMY MARTINS SLSL [id number] SLSL 11:12:38 23:59:00 TZU-RAI 2023-06-09 2023-06-09 Outpatient KIMMY MARTINS SLSL [id number] SLSL 10:46:08 11:11:00 TZU-RAI 2023-06-09 2023-06-09 Outpatient KIMMY MARTINS SLSL [id number] SLSL 10:45:42 10:45:42 TZU-RAI 2023-06-07 2023-06-07 Outpatient VIRGILIO MARTINS SLEH [id number] SLEH 12:11:39 23:59:00 TZU-RAI 2023-06-07 2023-06-07 Outpatient JOLLY [facility] [id number] SLEH 09:13:01 09:13:01 TZU-RAI 2023-06-06 2023-06-06 Outpatient JOLLY BLACK [facility] [id number] SLEH 11:33:09 23:59:00 JONI-UY 2023-06-06 2023-06-06 Outpatient JOLLY ALFREDO SLEH SLEH [id number] SLEH 08:36:02 11:32:00 SAMANTHA 2023-06-03 2023-06-03 Outpatient JOLLY LGOVER [facility] SLEH [id number] SLEH 16:39:23 23:59:00 LUPE 2023-06-03 2023-06-03 Outpatient JOLLY ALFREDO SLEH SLEH [id number] SLEH 10:49:10 16:38:00 SAMANTHA 2023-06-03 2023-06-03 Outpatient JOLLY CORONA SLEH SLEH [id number] SLEH 10:48:58 10:48:58 SAMUEL 2023-05-26 2023-06-02 Inpatient ER VIRGILIO HENDRICKSON [facility] [id number] SLEH 16:22:00 13:17:00 ANANDA 2023-05-31 2023-05-31 Outpatient EL SLEH SLE [id number] SLEH 00:00:00 00:00:00 2023-05-31 2023-05-31 Outpatient SLEH SLEH [id number] SLEH 00:00:00 00:00:00 2023-05-30 2023-05-30 Inpatient ER BRANDON SLEH SLEH [id number] SLEH 11:51:19 23:59:00 ZAKIA 2023-05-30 2023-05-30 Inpatient ER BRANDON SLEH SLEH [id number] SLEH 11:50:53 00:00:00 ZAKIA 2023-05-30 2023-05-30 Outpatient JOLLY ALFREDO SLEH SLEH [id number] SLEH 00:00:00 00:00:00 SAMANTHA 2023-05-27 2023-05-27 Inpatient ER MERCHANT SLEH SLEH [id number] SLEH 08:02:45 00:00:00 RIGO 2023-05-27 2023-05-27 Inpatient ER MERCHANT SLEH SLEH [id number] SLEH 08:02:37 00:00:00 RIGO 2023-05-27 2023-05-27 Outpatient JOLLY ALFREDO [facility] [id number] SLEH 00:00:00 00:00:00 SAMANTHA 2023-05-27 2023-05-27 Outpatient EL CHLOE, SLEH SLE [id number] SLEH 00:00:00 00:00:00 SAMUEL 2023-05-26 2023-05-26 Emergency ER ETTA, SLEH SLEH [id number] SLEH 17:16:04 17:16:04 DAVID 2023-05-25 2023-05-26 Emergency ER [facility] Emergency 20 [id number] SLEH 18:49:00 04:00:00 , JEAN 2023-05-23 2023-05-23 Outpatient EL OSVALDO, SLEH SLE [id number] SLEH 09:10:26 23:59:00 DANUTA 2023-05-23 2023-05-23 Outpatient JOLLY ALFREDO, SLE SLE [id number] SLEH 08:08:23 09:09:00 SAMANTHA 2023-05-20 2023-05-20 Outpatient EL CARLOS RAY SLE SLE [id number] SLEH 13:12:30 23:59:00 2023-05-20 2023-05-20 Outpatient EL LISA, SLE SLE [id number] SLEH 08:37:29 13:11:00 RIMMA 2023-05-20 2023-05-20 Outpatient JOLLY ALFREDO, SLEH SLE [id number] SLEH 07:56:53 07:59:00 SAMANTHA 2023-05-20 2023-05-20 Outpatient EL CHLOE, SLE SLE [id number] SLEH 07:56:34 07:59:00 SAMUEL 2023-05-13 2023-05-18 Inpatient ER FEMI, SLEH Emergency 20 [id number] SLEH 09:46:00 17:00:00 JIM 2023-05-17 2023-05-17 Inpatient ER BRETT JENSEN SLEH SLEH [id number] SLEH 08:32:28 00:00:00 2023-05-17 2023-05-17 Outpatient JOLLY ALFREDO, SLSL SLSL [id number] SLSL 00:00:00 00:00:00 SAMANTHA 2023-05-13 2023-05-13 Emergency ER FORJOSE, SLE SLE [id number] SLEH 14:12:01 14:12:01 YULISA 2023-05-13 2023-05-13 Emergency ER AMY SLE SLE [id number] SLEH 14:01:15 14:01:15 YULISA 2023-05-13 2023-05-13 Emergency ER AMY SLE SLE [id number] SLEH 11:23:31 11:23:31 YULISA 2023-05-13 2023-05-13 Emergency ER AMY SLE SLE [id number] SLEH 10:18:21 10:18:21 YULISA 2023-05-13 2023-05-13 Outpatient EL SAYDA SLE SLE [id number] SLEH 00:00:00 00:00:00 SAMANTHA 2023-05-13 2023-05-13 [facility] [id number] SLEH 00:00:00 00:00:00 SAMUEL 2023-05-13 2023-05-13 Outpatient [facility]LOE [facility] [id number] SLEH 00:00:00 00:00:00 SAMUEL 2023-05-13 2023-05-13 Outpatient [facility] [id number] SLEH 00:00:00 00:00:00 2023-05-12 2023-05-12 Outpatient EL SLE SLE [id number] SLEH 10:39:15 10:39:22 2023-05-12 2023-05-12 Outpatient EL SLE SLE [id number] SLEH 00:00:00 00:00:00 2023-05-10 2023-05-11 Outpatient ER BRANN, SLE Emergency [id number] SLEH 00:41:00 14:01:00 ASHLEY 2023-05-10 2023-05-10 Outpatient ER GEORGE, SLE SLE [id number] SLEH 11:59:09 11:59:09 LUPE 2023-05-10 2023-05-10 Outpatient ER NALAM, SLE SLE [id number] SLEH 09:15:25 09:15:25 ABRAM 2023-05-10 2023-05-10 Outpatient ER BLACK, SLEH [facility] [id number] SLEH 09:14:23 09:14:23 [facility] 2023-05-10 2023-05-10 Emergency ER VIRGILIO BLACK SLE [id number] SLEH 04:55:45 04:55:45 [facility] 2023-05-10 2023-05-10 Emergency ER WAYNE [facility] SLE [id number] SLEH 02:29:41 02:29:41 [facility] 2023-05-10 2023-05-10 Emergency ER VIRGILIO BLACK SLE [id number] SLEH 01:38:35 01:38:35 [facility] 2023-05-09 2023-05-09 Outpatient EL KATJA [facility] Surgery [id number] SLEH 06:44:00 16:39:00 HIRAM 2023-05-09 2023-05-09 Outpatient EL GEORGE [facility] [id number] SLEH 09:38:48 09:38:48 LUPE 2023-05-09 2023-05-09 Outpatient EL KATJA [facility] [id number] SLEH 06:04:26 06:04:26 [facility] 2023-05-06 2023-05-06 Outpatient EL WAYNE [facility] [id number] SLEH 14:16:44 23:59:00 JONI-UJalil 2023-05-06 2023-05-06 Outpatient [facility]arcin [facility] [id number] SLEH 08:03:11 14:15:00 SAMUEL 2023-05-06 2023-05-06 Outpatient EL SAYDA, [facility] [id number] SLEH 08:02:59 08:02:00 SAMANTHA 2023-05-06 2023-05-06 Outpatient EL SLE SLE [id number] SLEH 00:00:00 00:00:00 2023-05-06 2023-05-06 Outpatient EL SLE SLE [id number] SLEH 00:00:00 00:00:00 2023-05-02 2023-05-02 Outpatient EL WAYNE [facility] [id number] SLEH 10:32:06 23:59:00 JONI-UY 2023-05-02 2023-05-02 Outpatient JOLLY ALFRDEO SLEH SLEH [id number] SLEH 08:08:40 10:31:00 SAMANTHA 2023-04-29 2023-04-29 Outpatient JOLLY TAYLOR SLEH SLEH [id number] SLEH 11:05:34 23:59:00 DANUTA 2023-04-29 2023-04-29 Outpatient JOLLY ALFREDO SLEH SLEH [id number] SLEH 07:54:36 11:04:00 SAMANTHA 2023-04-25 2023-04-25 Outpatient JOLLY TAYLOR SLEH SLEH [id number] SLEH 10:41:00 23:59:00 DANUTA 2023-04-25 2023-04-25 Outpatient JOLLY ALFREDO SLEH SLEH [id number] SLEH 08:15:21 10:40:00 SAMANTHA 2023-04-22 2023-04-22 Outpatient CARLOS HANLEY SLEH SLEH [id number] SLEH 13:56:22 23:59:00 2023-04-22 2023-04-22 Outpatient JOLLY ALFREDO SLEH SLEH [id number] SLEH 08:46:59 13:55:00 SAMANTHA 2023-04-22 2023-04-22 Outpatient JOLLY ALFREDO SLEH SLEH [id number] SLEH 08:46:15 13:55:00 SAMANTHA 2023-04-21 2023-04-21 Outpatient JOLLY GOMEZ SLEH SLEH [id number] SLEH 08:48:47 23:59:00 AMIE 2023-04-19 2023-04-19 Outpatient JOLLY ALFREDO SLEH SLEH [id number] SLEH 13:47:04 13:47:04 SAMANTHA 2023-04-18 2023-04-18 Emergency ER JOSE DAVID SLE Emergency [id number] SLEH 09:09:00 21:34:00 MARCIN 2023-04-18 2023-04-18 Emergency ER BLACK, SLE SLEH [id number] SLEH 15:35:24 15:35:24 JONI-UY 2023-04-18 2023-04-18 Emergency ER [facility] SLE SLE [id number] SLEH 13:28:04 13:28:04 , JEAN 2023-04-18 2023-04-18 Emergency ER [facility] SLEH SLEH [id number] SLEH 09:44:58 09:44:58 , JEAN 2023-04-18 2023-04-18 Outpatient EL SLEH SLE [id number] SLEH 00:00:00 00:00:00 2023-04-18 2023-04-18 Outpatient EL LISA, SLE SLE [id number] SLEH 00:00:00 00:00:00 [facility] 2023-04-18 2023-04-18 Outpatient EL SLEH SLE [id number] SLEH 00:00:00 00:00:00 2023-04-16 2023-04-16 Emergency ER [facility] Emergency [id number] SLEH 11:50:00 19:19:00 KRIS ARAGON 2023-04-16 2023-04-16 Emergency ER AIDAN, SLE SLE [id number] SLEH 12:38:50 12:38:50 IFRAH 2023-04-15 2023-04-15 Outpatient EL WAYNE, SLEH SLE [id number] SLEH 11:53:18 23:59:00 JONI-UY 2023-04-15 2023-04-15 Outpatient EL SAYDA, SLEH SLE [id number] SLEH 08:00:05 11:52:00 SAMANTHA 2023-04-12 2023-04-12 Outpatient EL JEANNETTE, SLEH SLE [id number] SLEH 15:44:45 23:59:00 ARCENIO 2023-04-12 2023-04-12 Outpatient EL JEANNETTE, SLE Surgery [id number] SLEH 06:46:00 14:10:00 ARCENIO 2023-04-11 2023-04-11 Outpatient EL WAYNE, SLEH SLE [id number] SLEH 12:43:09 23:59:00 JONI-UY 2023-04-11 2023-04-11 Outpatient EL SAYDA, SLEH SLEH [id number] SLEH 08:40:34 12:42:00 SAMANTHA 2023-04-08 2023-04-08 Outpatient EL WAYNE, SLEH SLEH [id number] SLEH 14:45:43 23:59:00 MARSHA 2023-04-08 2023-04-08 Outpatient JOLLY ALFREDO, SLEH SLEH [id number] SLEH 13:22:14 14:44:00 SAMANTHA 2023-04-08 2023-04-08 Outpatient EL JEANNETTE, SLEH SLEH [id number] SLEH 00:00:00 00:00:00 ARCENIO 2023-04-04 2023-04-04 Emergency ER ALISSA, SLEH SLEH [id number] SLEH 15:50:34 23:59:00 ROXANNA 2023-04-04 2023-04-04 Emergency ER WAYNE, SLEH Emergency [id number] SLEH 10:52:00 18:02:00 SERGIO 2023-04-04 2023-04-04 Emergency ER ALISSA, SLEH SLEH [id number] SLEH 11:09:51 11:09:51 ROXANNA 2023-04-04 2023-04-04 Outpatient JOLLY TAYLOR, SLEH SLEH [id number] SLEH 09:07:02 10:51:00 DANUTA 2023-04-04 2023-04-04 Outpatient JOLLY ALFREDO, SLEH SLEH [id number] SLEH 07:11:40 09:06:00 SAMANTHA 2023-04-01 2023-04-01 Outpatient CARLOS HANLEY SLEH SLEH [id number] SLEH 14:06:52 23:59:00 2023-04-01 2023-04-01 Outpatient JOLLY ALFREDO, SLEH SLEH [id number] SLEH 11:23:55 14:05:00 SAMANTHA 2023-03-30 2023-03-30 Emergency ER [facility] SLE Emergency 20 [id number] SLEH 12:54:00 21:42:00 LEONARD CULLEN 2023-03-30 2023-03-30 Emergency ER [facility] SLE SLEH [id number] SLEH 19:18:13 19:18:13 RO, LEONARD 2023-03-28 2023-03-28 Outpatient EL WAYNE, SLE SLE [id number] SLEH 10:32:44 23:59:00 JONI-UY 2023-03-28 2023-03-28 Outpatient JOLLY ALFREDO, SLE SLEH [id number] SLEH 08:27:00 10:31:00 SAMANTHA 2023-03-25 2023-03-25 Outpatient EL WAYNE SLE SLE [id number] SLEH 14:29:31 23:59:00 JONI-UY 2023-03-25 2023-03-25 Outpatient JOLLY ALFREDO SLE SLE [id number] SLEH 10:29:27 14:28:00 SAMANTHA 2023-03-18 2023-03-21 Inpatient ER DUSTY, [facility] [id number] SLEH 14:40:00 21:17:00 NAHERBERMUS 2023-03-18 2023-03-18 Outpatient EL SAYDA, SLSL SLSL [id number] SLSL 00:00:00 00:00:00 SAMANTHA 2023-03-14 2023-03-14 Outpatient HARRIS, SLSL SLSL [id number] SLSL 14:32:47 23:59:00 MP 2023-03-14 2023-03-14 Outpatient JOLLY ALFREDO, SLSL SLSL [id number] SLSL 13:16:04 14:31:00 SAMANTHA 2023-03-11 2023-03-11 Outpatient BLOCK, SLSL SLSL [id number] SLSL 11:49:46 23:59:00 CAROLYN 2023-03-11 2023-03-11 Outpatient JOLLY ALFREDO, SLSL SLSL [id number] SLSL 10:38:51 11:48:00 SAMANTHA 2023-03-09 2023-03-09 Outpatient JOLLY GOMEZ [facility] [id number] SLEH 15:31:24 23:59:00 AMIE 2023-03-09 2023-03-09 Outpatient JOLLY GOMEZ [facility] [id number] SLEH 15:31:05 23:59:00 AMIE 2023-03-092023-03-09 Outpatient EL VIRGILIO GOMEZ SLE [id number] SLEH 15:27:00 15:30:00 AMIE 2023-03-09 2023-03-09 Outpatient VIRGILIO DOAN SLE [id number] SLEH 11:45:35 14:14:00 AMIE 2023-03-09 2023-03-09 Outpatient EL VIRGILIO HIGHTOWER SLE [id number] SLEH 13:43:52 13:43:52 HIRAM 2023-03-09 2023-03-09 Outpatient EL SLEH SLE [id number] SLEH 13:38:04 13:38:04 2023-03-09 2023-03-09 Outpatient EL [facility], [facility] [id number] [facility] 12:00:00 12:00:00 [place] [id number] [facility] 2023-03-09 2023-03-09 Outpatient VIRGILIO DOAN SLE [id number] SLEH 11:45:00 11:44:00 AMIE 2023-03-09 2023-03-09 Outpatient EL SLE SLE [id number] SLEH 07:29:31 07:29:31 2023-03-09 2023-03-09 Outpatient EL SLEH SLEH [id number] SLEH 07:28:52 07:28:52 2023-03-09 2023-03-09 Outpatient EL VERONICA KRAMER SLE SLEH [id number] SLEH 07:28:25 07:28:25 2023-03-09 2023-03-09 Outpatient EL SLE SLEH [id number] SLEH 07:27:43 07:27:43 2023-03-09 2023-03-09 Outpatient EL NAIDA SLE SLEH [id number] SLEH 07:27:20 07:27:20 LUCY 2023-03-09 2023-03-09 Outpatient EL SLEH SLEH [id number] SLEH 07:26:14 07:26:14 2023-03-09 2023-03-09 Outpatient EL SLEH SLEH [id number] SLEH 07:25:32 07:25:32 2023-03-09 2023-03-09 [facility] [id number] SLEH 07:25:08 07:25:08 2023-03-09 2023-03-09 Outpatient JOLLY GOMEZ, SLE SLE [id number] SLE 00:00:00 00:00:00 AMIE 2023-03-09 2023-03-09 Outpatient [facility] [id number] SLEH 00:00:00 00:00:00 AMIE 2023-03-08 2023-03-08 Outpatient NATALEE, GOLDIE SLSL SLSL [id number] SLSL 12:43:34 23:59:00 2023-03-08 2023-03-08 Outpatient EL GEORGIANA, SLSL SLSL [id number] SLSL 11:13:32 12:42:00 DIPABEN 2023-03-08 2023-03-08 Outpatient EL GEORGIANA, [facility] [id number] SLEH 00:00:00 00:00:00 DIPABEN 2023-03-03 2023-03-03 Outpatient EL GEORGIANA, SLSL Inter Rad [id number] SLSL 12:17:20 15:00:00 DIPABEN 2023-03-03 2023-03-03 Outpatient EL BLOCK, SLSL SLSL [id number] SLSL 14:18:43 14:18:43 CAROLYN 2023-03-02 2023-03-02 Outpatient EL GEORGIANA, [facility] [id number] SLEH 00:00:00 00:00:00 JOSELUIS 2023-02-26 2023-02-26 Emergency ER POLO, [facility] Emergency [id number] SLE 15:45:00 22:21:00 ERIKA 2023-02-26 2023-02-26 Emergency ER POLO, [facility] [id number] SLEH 20:13:37 20:13:37 ERIKA 2023-02-26 2023-02-26 Outpatient POLO [facility] [id number] SLEH 00:00:00 00:00:00 ERIKA 2023-02-26 2023-02-26 Outpatient POLO [facility] [id number] SLE 00:00:00 00:00:00 ERIKA 2023-02-21 2023-02-21 Outpatient [facility]AYLOR [facility] [id number] SLEH 11:38:15 23:59:00 DANUTA 2023-02-21 2023-02-21 Outpatient JOLLY STONER SLE SLE [id number] SLEH 08:20:14 11:37:00 DIPABEN 2023-02-17 2023-02-17 Outpatient OSVALDO [facility] [id number] SLEH 08:30:58 23:59:00 DANUTA 2023-02-15 2023-02-17 Inpatient ER HAMIDA, [facility] General Med [id number] SLEH 22:54:00 11:59:00 AHMED 2023-02-16 2023-02-16 Outpatient JOLLY WRIGHT [facility] [id number] SLEH 06:04:31 23:59:00 ASHLEY 2023-02-04 2023-02-04 Outpatient JOLLY STONER [facility] [id number] SLEH 09:09:56 23:59:00 DIPABEN 2023-01-25 2023-01-25 Outpatient JOLLY ALFREDO [facility] [id number] SLEH 13:24:47 13:24:47 SAMANTHA 2023-01-20 2023-01-23 Inpatient ER [facility], [facility] Emergency [id number] SLEH 13:21:00 15:13:00 [facility] 2022-12-29 2023-01-04 Inpatient ER [facility], [facility], [facility] Internal [id number] SLE 12:45:00 18:19:00 KHANNAN Med 2022-12-31 2022-12-31 Anesthesia Pathikonda, Du [facility] [id number] [facility] 08:14:00 09:23:00 [facility] 2022-12-31 Surgery Fabiano [facility] [id number] 08:00:00 09:00:00 [facility] 2022-12-29 2022-12-29 Office Paul Sutton [facility] [id number] [facility] [address] 12:00:00 13:00:00 Visit Amie Gomez [facility] 2022-12-29 2022-12-29 Outpatient EL PATRICIA [facility] [id number] [facility] 00:00:00 00:00:00 AMIE 2022-12-29 2022-12-29 Travel [facility] [id number] [facility] 00:00:00 00:00:00 [facility] 2022-11-25 2022-12-01 Inpatient ER [facility] [id number] [facility] 04:43:00 11:42:00 [facility] 2022-11-25 2022-12-01 Hospital ER Megha Singer [facility] [id number] [facility] 04:43:00 11:42:00 Encounter Rylie Chong [facility] Judi Vigil 2022-11-30 2022-11-30 Anesthesia Eun Gregory [facility] 1 [id number] [facility] 08:16:00 09:34:00 Event Monica Ruiz [facility] 2022-11-30 2022-11-30 Surgery Jeannette, [facility] [id number] [facility] 08:02:00 09:00:00 [facility] Results Test Description Test Time Test Comments Results Result Sour e Comments US THORACENTESIS 2023-07-28 17:21:43 [facility] : 1965 Sex: F Ultrasou nd guided left-sided thoracentesis.Clinical History: Left pleural effusion.Modality: Ultrasound.Sedation: None. Website Developer: Lida Munoz: None. Estimated Blood Loss: 1ccSpecimen: 2350 cc of serosanguineous fluid. Technique: Informed consent was obtained. The risks of pain, bleeding,infection, lung collapse/pneumothorax, injury to adjacent structures,and adverse medication reactions were discussed with the patient. Thepatient's left hemithorax was scanned from the back, with the patient rowena right lateral recumbent position. After the largest fluid pocket areawas marked, the skin was prepped and draped in the usual sterile manner. The area was anesthetized with 2% lidocaine, a 4F one-step catheter wasadvanced into the pleural space under ultrasound guidance. Aftercompletion of drainage, the catheter was removed. There was no evidenceof immediate complication. Post procedure chest x-ray demonstrated nopneumothorax. IMPRESSION:Impression:S uccessful and uncomplicated ultrasound guided left-sided thoracentesis.Corey fitch Signed By: Galen Genao09/27/2022 17:23 CDTWorkstation Name: [id number] PARACENTESIS 2023-07-28 17:21:42 [facility] EVER : 1965 Sex: F Ultrasou nd guided paracentesis.Clinical History: Ascites.Sedation: None. Website Developer: Hannah Munozt: None. Estimated Blood Loss: < 1 cc.Specimen: 4400 cc of serosanguineous fluid, samples sent to [...] was achieved with 2% lidocaine, a 5 [place]ar[place] one-stepcatheter was advanced into the peritoneal cavity under ultrasoundguidance. After completion of drainage, the catheter was removed. Therewas no evidence of complication.IMPRESSION :Impression:Successful ultrasound guided paracentesis.Electronic ally Signed By: Galen Genao09/27/2022 17:23 CDTWorkstation Name: [id number] BODY FLUID CELL COUNT WITH DIFFERENTIAL 2023-07-28 14:35:51 Test Item Value Reference Range Interpretation Comme nts APPEARANCE FLUID (BEAKER) (test code = 510) Cloudy Clear A COLOR FLUID (BEAKER) (test code = 511) [place] Colorless, Stra w A RBC FLUID (BEAKER) (test code = 513) 89510 /cu mm <=1 H TOTAL NUCLEATED CELL COUNT (BEAKER) (test code = 255 /cu mm <=5 H 1442) ADJUSTED WBC FLUID (BEAKER) (test code = 1691) 245 /cu mm <=5 H LINING CELLS/OTHERS, CALCULATED (BEAKER) (test code 10 /cu mm <= 1 H = 1590) NEUTROPHILS FLUID (BEAKER) (test code = 1656) 7 % LYMPHS FLUID (BEAKER) (test code = 488) 70 % MONO/MACROPHAGE FLUID (BEAKER) (test code = 489) 23 % EOSINOPHILS FLUID (BEAKER) (test code = 491) 0 % BASO FLUID (BEAKER) (test code = 492) 0 % CONTAINER BODY FLUID (BEAKER) (test code = 2873) Sterile Vial BODY FLUID CELL COUNT WITH [id number] 14:19:21 Test Item Value Reference Range Interpretation Comments APPEARANCE FLUID (BEAKER) (test Turbid Clear A code = 510) COLOR FLUID (BEAKER) (test code [place] Colorless, Straw A = 511) RBC FLUID (BEAKER) (test code = 52035 /cu mm <=1 H 513) TOTAL NUCLEATED CELL COUNT 403 /cu mm <=5 H (BEAKER) (test code = 1442) ADJUSTED WBC FLUID (BEAKER) 403 /cu mm <=5 H (test code = 1691) LINING CELLS/OTHERS, CALCULATED 0 /cu mm <=1 (BEAKER) (test code = 1590) NEUTROPHILS FLUID (BEAKER) 10 % (test code = 1656) LYMPHS FLUID (BEAKER) (test 47 % code = 488) MONO/MACROPHAGE FLUID (BEAKER) 43 % (test code = 489) EOSINOPHILS FLUID (BEAKER) 0 % (test code = 491) BASO FLUID (BEAKER) (test code 0 % = 492) CONTAINER BODY FLUID (BEAKER) Sterile Vial (test code = 2873) XR CHEST 1 VIEW PORTABLE / [id number] 11:41:26 [facility] : 1965 Sex: FXR CHEST 1 VIEW PORTABLE / BEDSIDEINDICATION: s/p left thoracentesisCOMPARISON: 07/25/2023TECHNIQUE: Portable frontal view(s) of the chest. FINDINGS: Support Lines and Devices: Stable. Lungs and pleura: Unchanged airspace and pleural opacities. Nopneumothorax identified.Heart and mediastinum: Stable contours. Stable surgical changes.Additional findings: None.IMPRESSION:1. No pneumothorax identified.2. Small pleural effusion.Electronically Signed By: Brian Roper09/27/2022 11:43 CDTWorkstation Name: [id number] 18:00:40 Test Item Value Reference Range Interpretation Comments CULTURE (BEAKER) (test No growth in 5 days code = 1095) BLOOD [id number] 11:00:40 Test Item Value Reference Range Interpretation Comments CULTURE (BEAKER) (test No growth in 5 days code = 1095) The specimen volume collected for this blood culture was below the optimum (10 mL per bottle or 20 mL total). Use of lower volumes may adversely affect recovery and/or detection times of some organisms.US [id number] 10:02:44[facility] : 1965 Sex: FUltrasound guided left thoracentesis.Clinical History: Left pleural effusion.Modality: Ultrasound.Sedation: None. Website Developer: Lupe Corralistant: None. Estimated Blood Loss: 1ccSpecimen: [...] By: Lj Stevenson MD07/26/2023 10:04 CDTWorkstation Name: [id number] FLUID CELL COUNT WITH DIFFERENTIAL 2023-07-25 12:43:03 Test Item Value Reference Range Interpretation Comments APPEARANCE FLUID (BEAKER) (test Cloudy Clear A code = 510) COLOR FLUID (BEAKER) (test code [place] Colorless, Straw A = 511) RBC FLUID (BEAKER) (test code = 87765 /cu mm <=1 H 513) TOTAL NUCLEATED [...] 2873) XR CHEST 1 VIEW PORTABLE / [id number] 12:16:02 [facility] : 1965 Sex: [...] Signed By: Brian Roper09/24/2022 12:18 CDTWorkstation Name: [id number] 2023-07-25 09:02:48Medical Cytology Report Case: [id number] Authorizing Provider: Rigo Sanz MD Collected: 07/21/2023 03:03 PM Ordering Location: [address] Received: 07/22/2023 09:02 AM Service Pathologist: Salvador Davenport MD Specimen: Pleural, Left LEFT PLEURAL FLUID (CYTOSPINS AND CELL BLOCK): - NEGATIVE FOR MALIGNANCY Chronic inflammatory cells and mesothelial cells seen. Signing Pathologist Direct Phone Line: [phone] signed by Salvador Davenport MD on 07/25/2023 at 9:02 [id number], [id number].o. F with decompensated cirrhosis on transplant list, [...] was fixed in formalin at 11:46 on 07/22/2023erformed.[facility], Department of Pathology, [address] [place] [id number], [facility]vziS[facility], [facility], [address] [place] [id number], [facility]dfrnsS[facility], Department of Pathology, [address] [place] [id number], [id number] 08:16:19 Test Item Value Reference Range Interpretation Comments CULTURE (BEAKER) (test No anaerobes isolated code = 1095) BODY FLUID CULTURE + GRAM [id number] 08:47:31 Test Item Value Reference Range Interpretation Comments CULTURE (BEAKER) No growth (test code = 1095) GRAM STAIN RESULT 2+ WBCs Initial gr am stain (BEAKER) (test performed hui or to code = 1123) incubation. 07/21/2023 6:59 PM Karly Bland GRAM STAIN RESULT No organisms seen Initi al gram stain (BEAKER) (test performed hui or to code = 39871) incubation. 07/21/2023 6:59 PM Karly Baldo BODY FLUID CULTURE + GRAM [id number] 08:47:25 Test Item Value Reference Range Interpretation Comments CULTURE (BEAKER) (test code = 1095) No growth BLOOD [id number] 12:00:45 Test Item Value Reference Range Interpretation Comments CULTURE (BEAKER) (test No growth in 5 days code = 1095) The specimen volume collected for this blood culture was below the optimum (10 mL per bottle or 20 mL total). Use of lower volumes may adversely affect recovery and/or detection times of some organisms.BLOOD [id number] 12:00:44 Test Item Value Reference Range Interpretation Comments CULTURE (BEAKER) (test No growth in 5 days code = 1095) The specimen volume collected for this blood culture was below the optimum (10 mL per bottle or 20 mL total). Use of lower volumes may adversely affect recovery and/or detection times of some organisms.[id number] 06:44:13 Test Item Value Reference Range Interpretation Comments PHOSPHORUS (BEAKER) (test code = 3.7 mg/dL 2.3-4.7 604) Belt Repairer ID Nathalia ANGEL [id number] 06:44:12 Test Item Value Reference Range Interpretation Comments MAGNESIUM (BEAKER) (test code = 2.1 mg/dL 1.6-2.6 627) Belt Repairer ID Nathalia ANGEL WCOMPREHENSIVE METABOLIC [id number] 06:44:11 Test Item Value Reference Range Interpretation [...] not appl icable for dialysis patien ts Belt Repairer ID - STANLEY WPROTHROMBIN TIME/[id number] 06:05:20 Test Item Value Reference Range Interpretation [...] mechanical heart valves.CBC W/PLT COUNT & AUTO [id number] 05:54:06 Test Item Value Reference Range Interpretation [...] PERCENT (BEAKER) (test code = 2801) CALCIUM, [id number] 05:30:22 Test Item Value Reference Range Interpretation Comments CALCIUM IONIZED (BEAKER) (test 1.11 mmol/L 1.12-1.27 L code = 698) PH, BLOOD (BEAKER) (test code = 7.40 1810) XR CHEST 1 VIEW PORTABLE / [id number] 18:25:04 [facility] 1965 Sex: FTECHNIQUE: Frontal view of the chest.INDICATION: s/p left thora.COMPARISON: 07/18/2023.FINDINGS:LINES/TUBES: None.HEART AND MEDIASTINUM: Cardiomediastinal contour is stable. LUNGS: The lungs are well inflated and clear. No consolidation orpulmonary edema.PLEURA: Tiny residual left pleural effusion. No pneumothorax.SOFT TISSUES AND BONES: Unremarkable.IMPRESSION:1. Tiny residual left pleural effusion. No pneumothorax.Electronically Signed By: Adilia Polanco07/21/2023 18:27 CDTWorkstation Name: [id number] FLUID CELL COUNT WITH [id number] 17:41:16 Test Item Value Reference Range Interpretation Comments APPEARANCE FLUID (BEAKER) (test Turbid Clear A code = 510) COLOR FLUID (BEAKER) (test code [place] Colorless, Straw A = 511) RBC FLUID (BEAKER) (test code = 95889 /cu mm <=1 H 513) TOTAL NUCLEATED [...] = 2873) BODY FLUID CELL COUNT WITH [id number] 17:29:15 Test Item Value Reference Range Interpretation Comments APPEARANCE FLUID (BEAKER) (test Turbid Clear A code = 510) COLOR FLUID (BEAKER) (test code [place] Colorless, Straw A = 511) RBC FLUID (BEAKER) (test code = 38215 /cu mm <=1 H 513) TOTAL NUCLEATED [...] (BEAKER) Sterile Vial (test code = 2873) [id number] 17:21:57Medical Cytology Report Case: [id number] Authorizing Provider: Margie Amaral Collected: 07/18/2023 11:57 AM MD Brigida Ordering Location: [address] Received: 07/19/2023 08:57 AM Service Pathologist: Hany Ferrer MD Specimen: Pleural, Left LEFT PLEURAL FLUID (CYTOSPINS AND CELL BLOCK): - NO MALIGNANT CELLS IDENTIFIED - REACTIVE MESOTHELIAL CELLS AND MIXED INFLAMMATORY CELLS PRESENT Signing Pathologist Direct Phone Line: [phone] signed by Hany Ferrer MD on 09/20/2022 at 5:21 PMPlease also see cytopathology case: [id number], [id number], [id number], [id number] y.o. F with decompensated cirrhosis on transplant [...] use of immunohistochemistry or special stains.MOC31- negativeCalretinin- positiveC ontrol Slides Examined: In-house known positive controls were evaluated along with the test tissue. These control slides run alongside of the patients sample show appropriate staining. Internal positive and negative controls when available are evaluated Immunohistochemistry technical testing was performed at [facility], Pathology Laboratory where it was [...] qualified to perform high complexity clinical laboratory testing.[facility], Department of Pathology, [address] [place] [address], [facility]jk[facility], [facility], [address] [place] [address], HflwkwS[facility], Department of [facility]ology, [address] [place] [address], ER [id number] 15:32:30[facility] : 1965 Sex: FUltrasound guided paracentesis.Clinical History: Ascites.Sedation: None. Website Developer: Danuta Dimas-CAssistant: None. Estimated Blood Loss: < [...] anesthesia was achieved with 2% lidocaine,a 5 Nicaraguan one-step catheter was advanced into the peritoneal cavityunder ultrasound guidance. After completion of drainage, the catheterwas removed. There was no evidence of complication.IMPRESSION:Impression:Successful ultrasound guided paracentesis.ElectronicallySigned By: Galen Genao09/20/2022 15:35 CDTWorkstation Name: [id number] [id number] 15:32:29 [facility] : 1965 Sex: FUltrasound guided left thoracentesis.Clinical History: Left pleural effusion.Modality: Ultrasound.Sedation: None. Website Developer: Danuta Corralistant: None. Estimated Blood Loss: 1ccSpecimen: [...] ultrasound guided left thoracentesis.Electronically Signed By: Galen Genao09/20/2022 15:53 CDTWorkstation Name: [id number] FLUID CULTURE + GRAM [id number] 12:02:56 Test Item Value Reference Range Interpretation Comments CULTURE (BEAKER) (test code = 1095) No growth BODY FLUID CULTURE + GRAM [id number] 12:02:54 Test Item Value Reference Range Interpretation Comments CULTURE (BEAKER) No growth (test code = 1095) GRAM STAIN RESULT <1+ WBCs (BEAKER) (test code = 1123) GRAM STAIN RESULT No organisms seen Initi al gram stain (BEAKER) (test performed hui or to code = 10852) incubation. 07/19/2023 3:23 AMLouise Urick LACTATE DEHYDROGENASE (LDH)2023-07-21 11:06:37 Test Item Value Reference Range Interpretation Comments LACTATE DEHYDROGENASE (BEAKER) (test 145 U/L 125-220 code = 635) Belt Repairer ID - ADMINPROTHROMBIN TIME/[id number] 10:48:51 Test Item Value Reference Range Interpretation [...] (test code = 347) EGFR (BEAKER) 36 Interpretati on of eGFR (test code = [...] not appl icable for dialysis patien ts Belt Repairer ID - ADMINCBC (HEMOGRAM ONLY)2023-07-21 06:25:10 Test [...] WBC 0-0 (test code = 413) PROTHROMBIN TIME/[id number] 06:17:13 Test Item Value Reference Range Interpretation Comments PROTIME (BEAKER) (test code = 23.7 seconds 11.9-14.2 H 759) INR (BEAKER) (test code = 370) 2.18 <=5.90 RECOMMENDED COUMADIN/WARFARIN INR THERAPY RANGESSTANDARD DOSE: 2.0 - 3.0 Includes: PROPHYLAXIS for venous thrombosis, systemic embolization; TREATMENT for venous thrombosis and/or pulmonary embolus.HIGH RISK: Target INR is 2.5-3.5 for patients with mechanical heart valves.[id number] 16:35:00Medical Cytology Report Case: [id number] Authorizing Provider: Margie Amaral Collected: 07/18/2023 11:05 AM MD Brigida Ordering Location: [address] Received: 07/19/2023 08:46 AM Service Pathologist: Hany Ferrer MD Specimen: Peritoneal Fluid PERITONEAL FLUID (CYTOSPINS AND CELL BLOCK): - NO MALIGNANT CELLS IDENTIFIED - REACTIVE MESOTHELIAL CELLS WITH BLOOD AND MIXED INFLAMMATORYCELLS Signing Pathologist Direct Phone Line: [phone] signed by Hany Ferrer MD on 07/20/2023 at 4:34 PMPlease also see cytopathology case: [id number], [id number] y.o. F with decompensated cirrhosis on transplant list, recurrent hydrothorax and ascites needing outpt thora/sylvia, HE, CKD who was discharged on 07/12 with hepatic encephalopathy and now presents with EVELINE and concern for spontaneous bacterial empyema from last outpt thoracentesis. PERITONEAL FLUIDA. Peritoneal FluidRec eived 1400 ml opaque pink bloody gelatinous fluid; prepared 4 cytospins and cell block(A2)(collodionbag) - the cell block was fixed in formalin at 13:47 on 07/19/2023erformed.[facility], Department of Pathology, [address] [place] [address], JaxskaS[facility], [facility] of [facility]ology, [address] [place] [address], BirwatS[facility], [facility] of [facility]ology, [address] [place] [address], OCJZQLGIWUYZK METABOLIC [id number] 05:54:56 Test Item Value Reference Range Interpretation [...] not appl icable for dialysis patien ts Belt Repairer ID - ADMINCBC (HEMOGRAM ONLY)2023-07-20 05:37:08 Test [...] 0-0 (test code = 413) BASIC METABOLIC [id number] 05:28:50 Test Item Value Reference Range Interpretation [...] not appl icable for dialysis patien ts Belt Repairer ID - ADMINCBC W/PLT COUNT & AUTO [id number] 05:14:16 Test Item Value Reference Range Interpretation [...] (BEAKER) (test code = 2801) HEPATIC FUNCTION [id number] 05:13:41 Test Item Value Reference Range Interpretation [...] (test code = 14 U/L 6-55 347) Belt Repairer ID - ADMINPROTHROMBIN TIME/[id number] 04:57:14 Test Item Value Reference Range Interpretation Comments PROTIME (BEAKER) (test code = 24.0 seconds 11.9-14.2 H 759) INR (BEAKER) (test code = 370) 2.21 <=5.90 RECOMMENDED COUMADIN/WARFARIN INR THERAPY RANGESSTANDARD DOSE: 2.0 - 3.0 Includes: PROPHYLAXIS for venous thrombosis, systemic embolization; TREATMENT for venous thrombosis and/or pulmonary embolus.HIGH RISK: Target INR is 2.5-3.5 for patients with mechanical heart valves.LACTIC ACID, [id number] 19:26:27 Test Item Value Reference Range Interpretation Comments LACTATE BLOOD VENOUS (2) (BEAKER) 1.66 mmol/L 0.50-2.00 (test code = 2872) Belt Repairer ID - BCBLOOD GAS, [id number] 19:22:34 Test Item Value Reference Range Interpretation [...] 97.0 XR CHEST 1 VIEW PORTABLE / [id number] 15:21:44 [facility] : 1965 Sex: [...] Signed By: Adilia Polanco07/18/2023 15:23 CDTWorkstation Name: [id number] THORACENTESIS 2023-07-18 15:07:22 [facility] : 1965 Sex: FUltrasound guided left-sided thoracentesis.Clinical History: Left pleural effusion.Modality: Ultrasound.Sedation: None. Website Developer: Ellis Munozistant: None. Estimated Blood Loss: 1ccSpecimen: 1950 cc [...] By: Galen Genao09/17/2022 15:09 CDTWork station Name: [id number] 15:07:21 [facility] : 1965 Sex: FUltrasound guided paracentesis.Clinical History: Ascites.Sedation: None. Website Developer: Ellis Munozistant: None. Estimated Blood Loss: < [...] was achieved with 2% lidocaine, a 5 Nicaraguan one-stepcatheter was advanced into the peritoneal cavity under ultrasoundguidance. After completion of drainage, the catheter was removed. Therewas no evidence of complic ation.IMPRESSION:Impression:Successful ultrasound guided paracentesis. Electronically Signed By: Galen Genao09/17/2022 15:09 CDTWorkstation Name: [id number], RANDOM [id number] 14:19:12 Test Item Value Reference Range Interpretation Comments SODIUM URINE (BEAKER) (test code = < meq/L 243) Reference Range: No NormalsOperator ID - ADMINBODY FLUID CELL COUNT WITH [id number] 13:50:40 Test Item Value Reference Range Interpretation Comments APPEARANCE FLUID (BEAKER) (test Bloody Clear A code = 510) COLOR FLUID (BEAKER) (test code [place] Colorless, Straw A = 511) RBC FLUID (BEAKER) (test code = 62894 /cu mm <=1 H 513) TOTAL NUCLEATED [...] = 2873) BODY FLUID CELL COUNT WITH [id number] 13:50:09 Test Item Value Reference Range Interpretation Comments APPEARANCE FLUID (BEAKER) (test Bloody Clear A code = 510) COLOR FLUID (BEAKER) (test code [place] Colorless, Straw A = 511) RBC FLUID (BEAKER) (test code = 02429 /cu mm <=1 H 513) TOTAL NUCLEATED [...] Tube (test code = 2873) CREATININE, RANDOM [id number] 13:44:56 Test Item Value Reference Range Interpretation [...] (test code Urine, Clean Catch = 2795) Belt Repairer ID - [auto]Belt Repairer ID - techB-TYPE NATRIURETIC FACTOR (BNP)2023-07-18 04:03:46 Test Item Value Reference Range Interpretation Comments B-TYPE NATRIURETIC PEPTIDE (BEAKER) 175 pg/mL 0-100 H (test code = 700) Belt Repairer ID - ADMINCOMPREHENSIVE METABOLIC [id number] 04:00:19 Test Item Value Reference Range Interpretation [...] not appl icable for dialysis patien ts Belt Repairer ID - [id number] 03:59:03 Test Item Value Reference Range Interpretation Comments PHOSPHORUS (BEAKER) (test code = 4.5 mg/dL 2.3-4.7 604) Belt Repairer ID - ADMINLACTATE DEHYDROGENASE (LDH)2023-07-18 03:59:03 Test Item Value Reference Range Interpretation Comments LACTATE DEHYDROGENASE (BEAKER) (test 150 U/L 125-220 code = 635) Belt Repairer ID - [id number] 03:59:02 Test Item Value Reference Range Interpretation Comments MAGNESIUM (BEAKER) (test code = 2.1 mg/dL 1.6-2.6 627) Belt Repairer ID - ADMINPROTHROMBIN TIME/[id number] 03:47:04 Test Item Value Reference Range Interpretation [...] mechanical heart valves.CBC W/PLT COUNT & AUTO [id number] 03:41:38 Test Item Value Reference Range Interpretation [...] PERCENT (BEAKER) (test code = 2801) CALCIUM, [id number] 03:26:48 Test Item Value Reference Range Interpretation Comments CALCIUM IONIZED (BEAKER) (test 1.09 mmol/L 1.12-1.27 L code = 698) PH, BLOOD (BEAKER) (test code = 7.52 1810) XR CHEST 1 VIEW PORTABLE / [id number] 16:15:31 [facility] : 1965 Sex: FChest one view:HISTORY: pleural effusionComparison: 07/14/2023 small to moderate size layering left pleural effusion is notedappearing slightly increased from the comparison study. There arebilateral interstitial opacities and mild peribronchial cuffing alsonoted suggesting interstitial edema or fluid overload. Cardiac sizeappears within normal limits.Electronically Signed By: Nathaniel Wilkins07/17/2023 16:17 CDTWorkstation Name: [id number] 14:31:51 Test Item Value Reference Range Interpretation [...] mechanical heart valves.CBC W/PLT COUNT & AUTO [id number] 13:34:10 Test Item Value Reference Range Interpretation [...] (BEAKER) (test code = 2801) BASIC METABOLIC [id number] 11:56:51 Test Item Value Reference Range Interpretation [...] not appl icable for dialysis patien ts Belt Repairer ID - MIGUELOSpecjacobn slightly ictericHEPATIC FUNCTION [id number] 11:52:05 Test Item Value Reference Range Interpretation [...] (test code = 24 U/L 6-55 347) Belt Repairer ID - Selina slightly ictericPROTHROMBIN TIME/[id number] 11:31:58 Test Item Value Reference Range Interpretation [...] No growth BODY FLUID CULTURE + GRAM [id number] 12:18:51 Test Item Value Reference Range Interpretation Comments CULTURE (BEAKER) (test code = 1095) No growth US [id number] 15:41:15 [facility] : 1965 Sex: FUltrasound guided left thoracentesis.Clinical History: Left pleural effusion.Modality: Ultrasound.Sedation: None. Website Developer: Hannah Lylest: None. Estimated Blood Loss: 1ccSpecimen: 2000 cc [...] area wasanesthetized with 2% lidocaine, a 4 [place]araguan one-step catheter wasadvanced into the pleural space under ultrasound guidance. Aftercompletion of drainage, the catheter was removed. There was no evidenceof immediate complication. Post procedure chest x-ray demonstrated nopneumothorax. IMPRESSION:Impression:Successful and uncomplicated ultrasound guided left thoracentesis.Electronically Signed By: Galen Genao09/13/2022 15:43 CDTWorkstation Name: [id number] [id number] 15:41:13 [facility] : 1965 Sex: FUltrasound guided paracentesis.Clinical History: Ascites.Sedation: None. Website Developer: Ellis Lylesistant: None. Estimated Blood Loss: < [...] anesthesia was achieved with 2% lidocaine,a 5 [place]araguan one-step catheter was advanced into the peritoneal cavityunder ultrasound guidance. After completion of drainage, the catheterwas removed. There was no evidence of complication.IMPRESSION:Impression:Successful ultrasound guided paracentesis.Electronically Signed By: Galen Genao09/13/2022 15:43 CDTWorkstation Name: [id number] FLUID CELL COUNT WITH [id number] 13:41:18 Test Item Value Reference Range Interpretation Comments APPEARANCE FLUID (BEAKER) (test Cloudy Clear A code = 510) COLOR FLUID (BEAKER) (test code [place] Colorless, Straw A = 511) RBC FLUID (BEAKER) (test code = 33438 /cu mm <=1 H 513) TOTAL NUCLEATED [...] = 2873) BODY FLUID CELL COUNT WITH [id number] 13:38:45 Test Item Value Reference Range Interpretation Comments APPEARANCE FLUID (BEAKER) (test Cloudy Clear A code = 510) COLOR FLUID (BEAKER) (test code [place] Colorless, Straw A = 511) RBC FLUID (BEAKER) (test code = 80617 /cu mm <=1 H 513) TOTAL NUCLEATED [...] 2873) XR CHEST 1 VIEW PORTABLE / [id number] 12:22:55 [facility] : 1965 Sex: FINDICATION: s/p left thoracentesisCOMPARISON: [...] Signed By: Brian Roper09/13/2022 12:25 CDTWorkstation Name: [id number] METABOLIC [id number] 06:27:20 Test Item Value Reference Range Interpretation [...] not appl icable for dialysis patien ts Belt Repairer ID - fowoxVLQAOVZATJ7949-44-05 06:26:56 Test Item Value Reference Range Interpretation Comments PHOSPHORUS (BEAKER) (test code = 3.8 mg/dL 2.3-4.7 604) Belt Repairer ID - [id number] 06:26:55 Test Item Value Reference Range Interpretation Comments MAGNESIUM (BEAKER) (test code = 2.1 mg/dL 1.6-2.6 627) Belt Repairer ID - adminCBC W/PLT COUNT & AUTO [id number] 06:10:50 Test Item Value Reference Range Interpretation [...] PERCENT (BEAKER) (test code = 2801) PROTHROMBIN TIME/[id number] 06:10:48 Test Item Value Reference Range Interpretation Comments PROTIME (BEAKER) (test code = 20.2 seconds 11.9-14.2 H 759) INR (BEAKER) (test code = 370) 1.75 <=5.90 RECOMMENDED COUMADIN/WARFARIN INR THERAPY RANGESSTANDARD DOSE: 2.0 - 3.0 Includes: PROPHYLAXIS for venous thrombosis, systemic embolization; TREATMENT for venous thrombosis and/or pulmonary embolus.HIGH RISK: Target INR is 2.5-3.5 for patients with mechanical heart valves.BLOOD GAS, [id number] 06:03:24 Test Item Value Reference Range Interpretation [...] (BEAKER) (test code = 1819) 21.0 CALCIUM, [id number] 06:03:24 Test Item Value Reference Range Interpretation Comments CALCIUM IONIZED (BEAKER) (test 1.08 mmol/L 1.12-1.27 L code = 698) PH, BLOOD (BEAKER) (test code = 7.41 1810) BLOOD [id number] 03:00:46 Test Item Value Reference Range Interpretation Comments CULTURE (BEAKER) (test No growth in 5 days code = 1095) BLOOD [id number] 03:00:45 Test Item Value Reference Range Interpretation Comments CULTURE (BEAKER) (test No growth in 5 days code = 1095) XR CHEST 1 VIEW PORTABLE / [id number] 07:09:56 [facility] : 1965 Sex: [...] Signed By: Brian Roper 07:12 CDTWorkstation Name: [id number] METABOLIC [id number] 05:37:39 Test Item Value Reference Range Interpretation [...] not appl icable for dialysis patien ts Belt Repairer ID - STANLEY [id number] 05:37:16 Test Item Value Reference Range Interpretation Comments MAGNESIUM (BEAKER) (test code = 2.0 mg/dL 1.6-2.6 627) Belt Repairer ID - STANLEY [id number] 05:37:16 Test Item Value Reference Range Interpretation Comments PHOSPHORUS (BEAKER) (test code = 3.5 mg/dL 2.3-4.7 604) Belt Repairer ID - STANLEY WPROTHROMBIN TIME/[id number] 05:35:14 Test Item Value Reference Range Interpretation [...] mechanical heart valves.CBC W/PLT COUNT & AUTO [id number] 05:09:06 Test Item Value Reference Range Interpretation [...] 0.00-1.00 PERCENT (BEAKER) (test code = 2801) [id number] 16:17:28 [facility] : 1965 Sex: FUltrasound guided left-sided thoracentesis.Clinical History: Left pleural effusion.Modality: Ultrasound.Sedation: None. Website Developer: Ellis Munozistant: None. Estimated Blood Loss: 1ccSpecimen: 2000 cc [...] By: Aravind Neal MD07/10/2023 16:19 CDTWorkstation Name: [id number] 10:56:31 Test Item Value Reference Range Interpretation [...] some organisms.XR CHEST 1 VIEW PORTABLE / [id number] 10:03:57 [facility] : 1965 Sex: FChest, one viewHistory: Status post left thoracentesisComparison: 07/07/2023Findings:Clear lungs. Normal size heart. The previous left pleural effusion hassignificantly decreased in size status post reported left thoracentesis.No pneumothorax is apparent. Electronically Signed By: Aravind Neal MD07/10/2023 10:06 CDTWorkstation Name: [id number] METABOLIC [id number] 08:39:27 Test Item Value Reference Range Interpretation [...] not appl icable for dialysis patien ts Belt Repairer ID - [id number] 08:21:55 Test Item Value Reference Range Interpretation Comments PHOSPHORUS (BEAKER) (test code = 3.1 mg/dL 2.3-4.7 604) Belt Repairer ID - FXXUMKAROLCRGR2436-05-24 08:21:54 Test Item Value Reference Range Interpretation Comments MAGNESIUM (BEAKER) (test code = 2.2 mg/dL 1.6-2.6 627) Belt Repairer ID - ADMINCBC W/PLT COUNT & AUTO [id number] 07:42:02 Test Item Value Reference Range Interpretation [...] PERCENT (BEAKER) (test code = 2801) PROTHROMBIN TIME/[id number] 07:40:07 Test Item Value Reference Range Interpretation Comments PROTIME (BEAKER) (test code = 19.1 seconds 11.9-14.2 H 759) INR (BEAKER) (test code = 370) 1.63 <=5.90 RECOMMENDED COUMADIN/WARFARIN INR THERAPY RANGESSTANDARD DOSE: 2.0 - 3.0 Includes: PROPHYLAXIS for venous thrombosis, systemic embolization; TREATMENT for venous thrombosis and/or pulmonary embolus.HIGH RISK: Target INR is 2.5-3.5 for patients with mechanical heart valves.BLOOD [id number] 06:00:35 Test Item Value Reference Range Interpretation [...] (test code = 347) EGFR (BEAKER) 31 Interpretati on of eGFR (test code = [...] not appl icable for dialysis patien ts Belt Repairer ID - STANLEY WOperator ID - [id number] 05:22:26 Test Item Value Reference Range Interpretation Comments MAGNESIUM (BEAKER) (test code = 2.3 mg/dL 1.6-2.6 627) Belt Repairer ID - STANLEY [id number] 05:22:26 Test Item Value Reference Range Interpretation Comments PHOSPHORUS (BEAKER) (test code = 3.6 mg/dL 2.3-4.7 604) Belt Repairer ID - STANLEY WCBC W/PLT COUNT & AUTO [id number] 05:10:18 Test Item Value Reference Range Interpretation [...] PERCENT (BEAKER) (test code = 2801) PROTHROMBIN TIME/[id number] 05:09:47 Test Item Value Reference Range Interpretation [...] (test performed hui or to code = 71729) incubation. 07/06/2023 8:06 PM Karly Bland SODIUM, RANDOM [id number] 13:41:19 Test Item Value Reference Range Interpretation Comments SODIUM URINE (BEAKER) (test code = < meq/L 243) Reference Range: No NormalsOperator ID - ADMINCREATININE, RANDOM [id number] 13:39:11 Test Item Value Reference Range Interpretation Comments CREATININE URINE (BEAKER) (test 143.0 mg/dL code = 375) Reference Range: No NormalsOperator ID - ADMINPROTEIN, RANDOM [id number] 13:39:11 Test Item Value Reference Range Interpretation Comments PROTEIN, URINE (BEAKER) (test code = 12 mg/dL 0-14 1569) Belt Repairer ID - ADMINURINALYSIS W/ [id number] 12:43:53 Test Item Value Reference Range Interpretation [...] (test code Urine, Clean Catch = 2795) Belt Repairer ID - [auto]Belt Repairer ID - techCALCIUM, [id number] 05:30:52 Test Item Value Reference Range Interpretation Comments CALCIUM IONIZED (BEAKER) (test 1.08 mmol/L 1.12-1.27 L code = 698) PH, BLOOD (BEAKER) (test code = 7.37 1810) [id number] 05:15:35 Test Item Value Reference Range Interpretation Comments PHOSPHORUS (BEAKER) (test code = 3.5 mg/dL 2.3-4.7 604) Belt Repairer ID - MARCOCREATINE KINASE (CK)2023-07-08 05:15:35 Test Item Value Reference Range Interpretation Comments CREATINE KINASE TOTAL (BEAKER) (test 34 U/L 29-200 code = 380) Belt Repairer ID - MARCOCOMPREHENSIVE METABOLIC [id number] 05:15:34 Test Item Value Reference Range Interpretation [...] not appl icable for dialysis patien ts Belt Repairer ID - [id number] 05:15:34 Test Item Value Reference Range Interpretation Comments MAGNESIUM (BEAKER) (test code = 2.3 mg/dL 1.6-2.6 627) Belt Repairer ID - MARCOB-TYPE NATRIURETIC FACTOR (BNP)2023-07-08 05:09:26 Test Item Value Reference Range Interpretation Comments B-TYPE NATRIURETIC PEPTIDE (BEAKER) 33 pg/mL 0-100 (test code = 700) Belt Repairer ID - ADMINPROTHROMBIN TIME/[id number] 05:02:44 Test Item Value Reference Range Interpretation [...] mechanical heart valves.CBC W/PLT COUNT & AUTO [id number] 04:45:45 Test Item Value Reference Range Interpretation [...] 2801) XR CHEST 1 VIEW PORTABLE / [id number] 16:42:39 [facility] PATIENCELIEDY CURTIS : 1965 Sex: FChest one view:HISTORY: hepatic hydrothoraxComparison: 07/05/2023There is a layering small left pleural effusion again noted. Noconsolidation or vascular congestion is noted. Cardiac size remainswithin normal limits.Electronically Signed By: Nathaniel Wilkins07/07/2023 16:44 CDTWorkstation Name: [id number] PARACENTESIS 2023-07-07 08:01:44 [facility] MARIAA PAREDESJassi CURTIS : 1965 Sex: FUltrasound guided paracentesis.Clinical History: Ascites.Sedation: None. Website Developer: Ellis Munozistant: None. Estimated Blood Loss: < [...] was achieved with 2% lidocaine, a 5 Nicaraguan one-stepcatheter was advanced into the peritoneal cavity under ultrasoundguidance. After completion of drainage, the catheter was removed. Therewas no evidence of complication.IMP RESSION:Impression:Successful ultrasound guided paracentesis.Electronically Signed By: Lee Diaz07/07/2023 08:03 CDTWorkstation Name: [id number] 2023-07-07 02:29:01 Test Item Value Reference Range Interpretation Comments PHOSPHORUS (BEAKER) (test code = 4.0 mg/dL 2.3-4.7 604) Belt Repairer ID - ADMINCOMPREHENSIVE METABOLIC [id number] 02:29:00 Test Item Value Reference Range Interpretation [...] (test code = 347) EGFR (BEAKER) 33 Interpretati on of eGFR (test code = [...] not appl icable for dialysis patien ts Belt Repairer ID - [id number] 02:29:00 Test Item Value Reference Range Interpretation Comments MAGNESIUM (BEAKER) (test code = 2.3 mg/dL 1.6-2.6 627) Belt Repairer ID - ADMINPROTHROMBIN TIME/[id number] 02:28:39 Test Item Value Reference Range Interpretation [...] mechanical heart valves.CBC W/PLT COUNT & AUTO [id number] 02:08:31 Test Item Value Reference Range Interpretation [...] = 2801) BODY FLUID CELL COUNT WITH [id number] 18:31:06 Test Item Value Reference Range Interpretation Comments APPEARANCE FLUID (BEAKER) (test Cloudy Clear A code = 510) COLOR FLUID (BEAKER) (test code [place] Colorless, Straw A = 511) RBC FLUID (BEAKER) (test code = 08325 /cu mm <=1 H 513) TOTAL NUCLEATED [...] = 2873) BODY FLUID CULTURE + GRAM [id number] 17:29:45 Test Item Value Reference Range Interpretation Comments CULTURE (BEAKER) (test code = 1095) No growth COMPREHENSIVE METABOLIC [id number] 06:39:46 Test Item Value Reference Range Interpretation [...] not appl icable for dialysis patien ts Belt Repairer ID - [id number] 06:27:37 Test Item Value Reference Range Interpretation Comments MAGNESIUM (BEAKER) (test code = 2.3 mg/dL 1.6-2.6 627) Belt Repairer ID - [id number] 06:27:37 Test Item Value Reference Range Interpretation Comments PHOSPHORUS (BEAKER) (test code = 4.4 mg/dL 2.3-4.7 604) Belt Repairer ID - ADMINCBC W/PLT COUNT & AUTO [id number] 06:05:48 Test Item Value Reference Range Interpretation [...] PERCENT (BEAKER) (test code = 2801) PROTHROMBIN TIME/[id number] 05:48:21 Test Item Value Reference Range Interpretation [...] (test Non Applicable Not detected code = 5036469766) CTX-M (BEAKER) (test Non Applicable Not detected code = 0176092939) IMP ([place]) (test code = Non Applicable Not Detected 6693920104) KPC (BKR) (test code = Non Applicable Not detected 6968808702) NDM (BKR) (test code = Non Applicable Not Detected 6277245589) OXA-48-LIKE (BKR) Non Applicable Not Detected (test code = 4858016999) VIM (BKR) (test code = Non Applicable Not detected 2659233432) MEC A/C ([place]) (test Detected Not detected A Methicill in code = 3235942600) resistanc e has been detected. MEC A/C AND MREJ Non Applicable Not Detected (MRSA) [place] (test code = 4054164256) VAN A/B (VANCOMYCIN Non Applicable Not detected RESISTANCE) (test code = 9487243973) ENTEROCOCCUS FAECALIS Not detected Not detected (BKR) (test code = 7028591326) ENTEROCOCCUS FAECIUM Not detected Not detected (BKR) (test code = 8906119977) LISTERIA MONOCYTOGENES Not detected Not detected (test code = 20160614) STAPHYLOCOCCUS (test Detected Not detected A code = 9150351) STAPHYLOCOCCUS AUREUS Not detected Not detected (test code = 20160818) STAPHYLOCOCCUS Detected Not detected A Methicillin EPIDERMIDIS ([place]) (test Resis tant code = 7304629367) Staphyloc occus epidermidis (MR-CoNS).First line therapy: Vancomycin.Note : Possible contamination. The likelihood of pathogenicity i s increased if th e organism is observed in multiple blood cultures obtain ed from separate venipunctures. STAPHYLOCOCCUS Not detected Not detected LUGDENENSIS (BKR) (test code = 8969048411) STREPTOCOCCUS (test Not detected Not detected code = 1127242) STREPTOCOCCUS Not detected Not detected AGALACTIAE (GROUP B) (test code = 9042440) STREPTOCOCCUS Not detected Not detected PNEUMONIAE (test code = 2990410) STREPTOCOCCUS PYOGENES Not detected Not detected (GROUP A) (test code = 7855709) ACINETOBACTER Not detected Not detected CALCOACETICUS-BAUMANNI I COMPLEX (BKR) (test code = 7712) BACTEROIDES FRAGILIS Not detected Not detected ([place]) (test code = 5781867975) ENTEROBACTERALES (test Not detected Not detected code = 9646061297) ENTEROBACTER CLOACOE Not detected Not detected COMPLEX (test code = 5111778) ESCHERICHIA COLI (test Not detected Not detected code = 7609323) KLEBSIELLA AEROGENES Not detected Not detected (BKR) (test code = 2130809264) KLEBSIELLA OXYTOCA Not detected Not detected (test code = 9517179) KLEBSIELLA PNEUMONIAE Not detected Not detected GROUP (test code = 3568752223) PROTEUS (test code = Not detected Not detected 4725380) SALMONELLA SPECIES Not detected Not detected ([place]) (test code = 1896784100) SERRATIA MARCESCENS Not detected Not detected (test code = 8458159) HAEMOPHILUS INFLUENZAE Not detected Not detected (test code = 7941542) NEISSERIA MENINGITIDIS Not detected Not detected (test code = 3873368) PSEUDOMONAS Not detected Not detected AERUGINOSA-BEAKER (test code = 3514015) STENOTROPHOMONAS Not detected Not detected MALTOPHILIA (BKR) (test code = 9040781405) BRITTANY ALBICANS (test Not detected Not detected code = 4762480) BRITTANY AURIS ([place]) Not detected Not detected (test code = 6002949158) BRITTANY GLABRATA (test Not detected Not detected code = 5179715) BRITTANY KRUSEI (test Not detected Not detected code = 1287261) BRITTANY PARAPSILOSIS Not detected Not detected (test code = 9433421) BRITTANY TROPICALIS Not detected Not detected (BKR) (test code = 1267356) CRYPTOCOCCUS Not detected Not detected NEOFORMANS/GATTII (test code = 2626552616) Other bacteria and resistance markers not targeted by this PCR panel cannot be excluded; therefore clinical correlation and follow up of serology, culture results, and other molecular studies is required. The results are not intended to be used as the sole means for clinical diagnosis or patient management decisions. This sample was tested at the [facility] using the [place] Blood Culture ID Panel. It is FDA cleared and has been verified and approved by the [facility] for clinical use. This laboratory is CLIA-certified and College ofAmerican Pathologists (CAP)-accredited to perform high complexity testing.URINALYSIS W/ REFLEX URINE [id number] 11:37:59 Test Item Value Reference Range Interpretation [...] = 516) SOURCE(BEAKER) (test code = 2795) Belt Repairer ID - [auto]Belt Repairer ID - techUS [id number] 08:44:05 [facility] : 1965 Sex: FUltrasound guided left thoracentesis.Clinical History: Left pleural effusion.Modality: Ultrasound.Sedation: None. Website Developer: Lupe Youngt: None. Estimated Blood Loss: 1ccSpecimen: [...] Signed By: Mikael Darnell07/05/2023 08:46 CDTWorkstation Name: [id number] BRAIN WITHOUT IV [id number] 04:46:07[facility]ISI PATIENCELEIDY CURTIS : 1965 Sex: FEXAM: CT BRAIN WITHOUT [...] Signed By: Erika Almazan07/05/2023 04:49 CDTWorkstation Name: [id number], [id number] 03:54:56 Test Item Value Reference Range Interpretation Comments FREE T4 (BEAKER) (test code = 655) 0.85 ng/dL 0.70-1.48 Belt Repairer ID - ADMINTSH/FREE T4 IF [id number] 03:22:04 Test Item Value Reference Range Interpretation Comments THYROID STIMULATING HORMONE 5.176 uIU/mL 0.350-4.940 H (BEAKER) (test code = 772) Belt Repairer ID - ADMINHIGH SENSITIVITY TROPONIN [id number] 03:02:49 Test Item Value Reference Range Interpretation Comments HIGH SENSITIVITY TROPONIN I (test < pg/ml <=17 code = 5742900) Belt Repairer ID - ADMINThe ELECTRODYNAMICIST STAT High Sensitivity Troponin-I results should be used in conjunction with other diagnostic information such as ECG, clinical observations and information, and patientsymptoms to aid in the diagnosis of CT. HEPATIC FUNCTION [id number] 02:56:07 Test Item Value Reference Range Interpretation [...] Specimen slightly (test code = 347) hemolyzed Belt Repairer ID - ADMINSpecimen slightly ictericBASIC METABOLIC [id number] 02:56:06 Test Item Value Reference Range Interpretation [...] not appl icable for dialysis patien ts Belt Repairer ID - ADMINSpecimen slightly ictericCBC W/PLT COUNT & AUTO [id number] 02:41:31 Test Item Value Reference Range Interpretation [...] 2801) XR CHEST 1 VIEW PORTABLE / [id number] 02:15:04 [facility] : 1965 Sex: FXR CHEST 1 VIEW PORTABLE / BEDSIDEINDICATION: ALTERED MENTAL STATUSCOMPARISON: Prior day's examFINDINGS: Portable frontal view of the chest. IMPRESSION:Support Lines: None Lungs and pleura: Unchanged small left pleural effusion. No new airspaceconsolidation. No pneumothorax.Heart and mediastinum: Stable contours. Additional findings: None.Electronically Signed By: Erika Almazan07/05/2023 02:17 CDTWorkstation Name: [id number] 16:25:00Medical Cytology Report Case: [id number] Authorizing Provider: Bebe Cox MD Collected: 06/30/2023 1 2:02 PM Ordering Location: [facility] Received: 07/01/2023 09:21 AM Pathologist: Hany Ferrer MD Specimen: Pleural LEFT PLEURAL FLUID (CYTOSPINS AND CELL BLOCK): - NEGATIVE FOR MALIGNANCY Reactive mesothelial cells admixed chronic inflammatory cells Signing Pathologist Direct Phone Line: [phone] signed by Hany Ferrer MD on 07/04/2023 at 4:24 [id number], [id number] y.o. F presented with left pleural effusion and ascites, has a h/o cirrhosis, pneumonia (04/2023), asthma, COVID-19 (2021)LEFT PLEURAL FLUIDA. PleuralReceived 1100 ml bloody fluid; prepared 4 cytospins and cell b lock(A2)(collodion bag)- the cell block was fixed in formalin at 13:02 on 07/01/2023erformed.[facility], Department of Pathology, [address] [place] [address], [facility], [address] [place] [address], [facility], [facility] of [facility], [address] [place] [address], TSSW FLUID CELL COUNT WITH [id number] 12:49:34 Test Item Value Reference Range Interpretation Comments APPEARANCE FLUID (BEAKER) (test Cloudy Clear A code = 510) COLOR FLUID (BEAKER) (test code Red Colorless, Straw A = 511) RBC FLUID (BEAKER) (test code = 04359 /cu mm <=1 H 513) TOTAL NUCLEATED [...] 2873) XR CHEST 1 VIEW PORTABLE / [id number] 11:05:44 [facility] PATIENCELEIDY CURTIS : 1965 Sex: FXR CHEST 1 VIEW PORTABLE / BEDSIDECLINICAL HISTORY: s/p left thoracentesis TECHNIQUE: Single view of the chest.COMPARISON: June 30, 2023IMPRESSION:Small left pleural effusion reduced. Similar left lung base atelectasisor scarring. Right lung is clear. No pneumothorax. The cardiomediastinalsilhouette is unremarkable for AP technique. The osseous structuresappear stable.Electronically Signed By: Wilber Hylton07/04/2023 11:07 CDTWorkstation Name: [id number] FLUID CULTURE + GRAM [id number] 13:52:20 Test Item Value Reference Range Interpretation Comments CULTURE (BEAKER) (test code = 1095) No growth BODY FLUID CULTURE + GRAM [id number] 13:52:20 Test Item Value Reference Range Interpretation Comments CULTURE (BEAKER) (test code = 1095) No growth US [id number] 17:02:30 [facility] : 1965 Sex: FUltrasound guided left thoracentesis.Clinical History: Left pleural effusion.Modality: Ultrasound.Sedation: None. Website Developer: Danuta Corralistant: None. Estimated Blood Loss: 1ccSpecimen: [...] Signed By: Lee Diaz06/30/2023 17:04 CDTWorkstation Name: [id number] 17:02:29 [facility] : 1965 Sex: FUltrasound guided paracentesis.Clinical History: Ascites.Sedation: None. Website Developer: Danuta Thomast: None. Estimated Blood Loss: < [...] localanesthesia was achieved with 2% lidocaine,a 5 Nicaraguan one-step catheter was advanced into the peritoneal cavityunder ultrasound guidance. After completion of drainage, the catheterwas removed. There wasno evidence of complication.IMPRESSION:Impression:Successful ultrasound guided paracentesis.Electronically Signed By: Lee Diaz06/30/2023 17:04 CDTWorkstation Name: [id number] FLUID CELL COUNT WITH [id number] 14:51:10 Test Item Value Reference Range Interpretation Comments APPEARANCE FLUID (BEAKER) (test Cloudy Clear A code = 510) COLOR FLUID (BEAKER) (test code [place] Colorless, Straw A = 511) RBC FLUID (BEAKER) (test code = 44274 /cu mm <=1 H 513) TOTAL NUCLEATED [...] = 2873) BODY FLUID CELL COUNT WITH [id number] 14:48:47 Test Item Value Reference Range Interpretation Comments APPEARANCE FLUID (BEAKER) (test Cloudy Clear A code = 510) COLOR FLUID (BEAKER) (test code [place] Colorless, Straw A = 511) RBC FLUID (BEAKER) (test code = 05847 /cu mm <=1 H 513) TOTAL NUCLEATED [...] Sterile Vial (test code = 2873) BILIRUBIN, [id number] 14:20:49 Test Item Value Reference Range Interpretation Comments BILIRUBIN DIRECT (BEAKER) (test 0.7 mg/dL 0.1-0.5 H code = 706) Belt Repairer ID - emCOMPREHENSIVE METABOLIC [id number] 14:20:48 Test Item Value Reference Range Interpretation [...] not appl icable for dialysis patien ts Belt Repairer ID - emPROTHROMBIN TIME/[id number] 14:05:38 Test Item Value Reference Range Interpretation [...] mechanical heart valves.CBC W/PLT COUNT & AUTO [id number] 13:49:16 Test Item Value Reference Range Interpretation [...] 2801) XR CHEST 1 VIEW PORTABLE / [id number] 13:07:18 [facility] : 1965 Sex: FCLINICAL HISTORY: s/p left thora TECHNIQUE: 1 view of the chest.COMPARISON: 06/28/2023IMPRESSION:No pneumothorax. Small left pleural effusion appears decreased. Thereare no infiltrates. There is no cardiomegaly.Electronically Signed By: Antwan Flor06/30/2023 13:09 CDTWorkstation Name: [id number] FLUID CULTURE + GRAM [id number] 13:11:55 Test Item Value Reference Range Interpretation Comments CULTURE (BEAKER) (test code = 1095) No growth CT CHEST WITHOUT IV [id number] 05:33:19 [facility] : 1965 Sex: FCLINICAL [...] Signed By: Nicolas Sauer06/28/2023 05:36 CDTWorkstation Name: [id number] ABDOMEN/PELVIS WITHOUT IV [id number] 05:33:19[facility] : 1965 Sex: [...] Signed By: Nicolas Sauer06/28/2023 05:36 CDTWorkstation Name: [id number] METABOLIC [id number] 04:01:28 Test Item Value Reference Range Interpretation [...] not appl icable for dialysis patien ts Belt Repairer ID - EMXR CHEST 2 [id number] 00:59:58 [facility] : 1965 Sex: FEXAM: XR CHEST 2 VIEWSCLINICAL: shobCOMPARISON: None.FINDINGS:Unchanged left basilar airspace opacities and small left effusion. Theright lung is clear. No pneumothorax. The cardiac silhouette andmediastinal contours are stable. Osseous structures are stable.IMPRESSION:No significant interval change. Electronically Signed By: Roopa Jeter06/28/2023 01:02 CDTWorkstation Name: [id number] W/PLT COUNT & AUTO [id number] 00:29:31 Test Item Value Reference Range Interpretation [...] PERCENT (BEAKER) (test code = 2801) US [id number] 14:45:20 [facility] : 1965 Sex: FUltrasound guided left thoracentesis.Clinical History: Left pleural effusion.Modality: Ultrasound.Sedation: None. Website Developer: Danuta Corralistant: None. Estimated Blood Loss: 1ccSpecimen: [...] Signed By: Mikael Darnell06/27/2023 14:47 CDTWorkstation Name: [id number] CHEST 1 VIEW PORTABLE / [id number] 09:08:30[facility] PATIENCELEIDY CURTIS : 1965 Sex: FCLINICAL HISTORY: s/p left thoraTECHNIQUE: 1 view of the chest.COMPARISON: 06/23/2023IMPRESSION:No pneumothorax. Blunting of the left costophrenic angle is unchanged.There is no lobar consolidation or cardiomegaly.Electronically Signed By: Antwan Flor06/27/2023 09:10 CDTWorkstation Name: [id number] FLUID CELL COUNT WITH [id number] 14:54:54 Test Item Value Reference Range Interpretation Comments APPEARANCE FLUID (BEAKER) (test Bloody Clear A code = 510) COLOR FLUID (BEAKER) (test code Red Colorless, Straw A = 511) RBC FLUID (BEAKER) (test code = 28531 /cu mm <=1 H 513) TOTAL NUCLEATED [...] = 2873) BODY FLUID CELL COUNT WITH [id number] 14:54:24 Test Item Value Reference Range Interpretation Comments APPEARANCE FLUID (BEAKER) (test Bloody Clear A code = 510) COLOR FLUID (BEAKER) (test code Red Colorless, Straw A = 511) RBC FLUID (BEAKER) (test code = 72441 /cu mm <=1 H 513) TOTAL NUCLEATED [...] = 2873) BODY FLUID CULTURE + GRAM [id number] 13:19:32 Test Item Value Reference Range Interpretation Comments CULTURE (BEAKER) (test code = 1095) No growth US [id number] 11:39:20 [facility] : 1965 Sex: FUltrasound guided left thoracentesis.Clinical History: Left pleural effusion.Modality: Ultrasound.Sedation: None. Website Developer: Danuta Corralistant: None. Estimated Blood Loss: 1ccSpecimen: 2500 cc [...] Signed By: Mikael Darnell06/23/2023 11:41 CDTWorkstation Name: [id number] 11:39:19 [facility] : 1965 Sex: FUltrasound guided paracentesis.Clinical History: Ascites.Sedation: None. Website Developer: Danuta Rodrigesistant: None. Estimated Blood Loss: < [...] anesthesia was achieved with 2% lidocaine,a 5 Nicaraguan one- step catheter was advanced into the peritoneal cavityunder ultrasound guidance. After completion of drainage, the catheterwas removed. There was no evidence of complication.IMPRESSION:Impression:Successful ultrasound guided paracentesis.Electronically Signed By: Mikael Darnell06/23/2023 11:41 CDTWorkstation Name: [id number] CHEST 1 VIEW PORTABLE / [id number] 10:05:06[facility] : 1965 Sex: FChest AP portableCOMPARISON STUDY: 06/20/2023History provided: Status post left thoracentesisNo evidence of pneumothorax. Atelectatic change at the left costophrenicangle. Lungs otherwise grossly clear and vascularity normal.Electronically Signed By: Mp Infante 10:29 CDTWorkstation Name: [id number] 12:06:58 [facility] EVER : 1965 Sex: FUltrasound guided left thoracentesis.Clinical History: Left pleural effusion.Modality: Ultrasound.Sedation: None. Website Developer: JEREMÍAS LylesCAssistant: None. Estimated Blood Loss: 1ccSpecimen: [...] area wasanesthetized with 2% lidocaine, a 4 [place]ar[place] one-step catheter wasadvanced into the pleural space under ultrasound guidance. Aftercompletion of drainage, the catheter was removed. There was no evidenceof immediate complication. Post procedure chest x-ray demonstrated nopneumothorax. IMPRESSION:Impression:Successful and uncomplicated ultrasound guided left thoracentesis.Electronically Signed By: Lj Stevenson MD06/22/2023 12:09 CDTWorkstation Name: [id number] FLUID CELL COUNT WITH DIFFERENTIAL 2023-06-20 19:53:16 Test Item Value Reference Range Interpretation Comments APPEARANCE FLUID (BEAKER) (test Turbid Clear A code = 510) COLOR FLUID (BEAKER) (test code [place] Colorless, Straw A = 511) RBC FLUID (BEAKER) (test code = 71046 /cu mm <=1 H 513) TOTAL NUCLEATED [...] = 2873) BODY FLUID CELL COUNT WITH [id number] 19:08:56 Test Item Value Reference Range Interpretation Comments APPEARANCE FLUID Cloudy Clear A (BEAKER) (test code = 510) COLOR FLUID (BEAKER) Red Colorless, Straw A (test code = 511) RBC FLUID (BEAKER) 33907 /cu mm <=1 H (test code = [...] for (BEAKER) (test code = malignancy 2619) [id number] Shaneka Saab M.D. (BEAKER) (test code = (electronic 2620) signature) CONTAINER BODY FLUID EDTA Tube (BEAKER) (test code = 2873) XR CHEST 1 VIEW PORTABLE / [id number] 17:34:06 [facility] : 1965 Sex: [...] Signed By: Adilia Polanco06/20/2023 17:36 CDTWorkstation Name: [id number] ABDOMEN/PELVIS WITH IV [id number] 13:52:23 [facility] : 1965 Sex: FCT of [...] Signed By: Manish Panda06/20/2023 13:54 CDTWorkstation Name: [id number] NATRIURETIC FACTOR (BNP)2023-06-20 10:56:51 Test Item Value Reference Range Interpretation Comments B-TYPE NATRIURETIC PEPTIDE (BEAKER) 40 pg/mL 0-100 (test code = 700) Belt Repairer ID - ADMINHIGH SENSITIVITY TROPONIN [id number] 10:56:34 Test Item Value Reference Range Interpretation Comments HIGH SENSITIVITY TROPONIN I (test < pg/ml <=17 code = 0985507) Belt Repairer ID - ADMINThe ELECTRODYNAMICIST STAT High Sensitivity Troponin-I results should be used in conjunction with other diagnostic information such as ECG, clinical observations and information, and patientsymptoms to aid in the diagnosis of CT. HEPATIC FUNCTION [id number] 10:50:36 Test Item Value Reference Range Interpretation [...] (test code = 24 U/L 6-55 347) Belt Repairer ID - [id number] 10:50:36 Test Item Value Reference Range Interpretation Comments LIPASE (BEAKER) (test code = 749) 115 U/L 8-78 H Belt Repairer ID - ADMINBASIC METABOLIC [id number] 10:50:35 Test Item Value Reference Range Interpretation [...] not appl icable for dialysis patien ts Belt Repairer ID - ADMINPT/[id number] 10:39:45 Test Item Value Reference Range Interpretation [...] 1 VIEW PORTABLE / BEDSIDE 2023-06-20 10:38:10 [facility] BISIPATIENCE EVER : 1965 Sex: FINDICATION: SHORTNESS OF BREATHCOMPARISON: 06/15/2023TECHNIQUE: Single frontal view of the chest.FINDINGS:Lungs and pleura: Left basilar airspace disease, possibly withunderlying effusion, increased from prior exam 06/15/2023.Heart and mediastinum: Normal heart size. Unremarkable mediastinalcontours.Osseous structures: No acute abnormality.Other: None. Electronically Signed By: Estrella Walters06/20/2023 10:40 CDTWorkstation Name: [id number] W/PLT COUNT & AUTO [id number] 10:31:23 Test Item Value Reference Range Interpretation [...] = 2801) BODY FLUID CULTURE + GRAM [id number] 18:20:33 Test Item Value Reference Range Interpretation Comments CULTURE (BEAKER) (test code = 1095) No growth US [id number] 15:11:52 [facility] : 1965 Sex: FUltrasound guided left thoracentesis.Clinical History: Left pleural effusion.Modality: Ultrasound.Sedation: None. Website Developer: Lupe Corralistant: None. Estimated Blood Loss: 1ccSpecimen: [...] Signed By: Mikael Darnell06/16/2023 15:14 CDTWorkstation Name: [id number] 10:41:45 [facility] : 1965 Sex: [...] The skin was thenpreppedand anesthetized. A 5 Nicaraguan needle/catheter was inserted intothe peritoneal cavity and 3.75 L of reddish-yellow, cloudy fluid wereremoved. The catheter was removed.CONCLUSION:Ultrasound-guided paracent esis.Electronically Signed By: Fahad Nuno 10:46 CDTWorkstation Name: [id number] CHEST 1 VIEW PORTABLE / [id number] 07:29:51 [facility] : 1965 Sex: FXR CHEST 1 VIEW PORTABLE / BEDSIDECLINICAL HISTORY: left side thoracentesis TECHNIQUE: Single view of thechest.COMPARISON: June 13, 2023IMPRESSION:Reduced left lung base opacities suggestive of compressive atelectasiswith possible residual small effusion. No pneumothorax. Thecardiomediastinal silhouetteis unremarkable for AP technique. Theosseous structures appear stable.Electronically Signed By: Joselin Hylton06/16/2023 07:31 CDTWorkstation Name: [id number] FLUID CELL COUNT WITH [id number] 21:25:01 Test Item Value Reference Range Interpretation Comments APPEARANCE FLUID (BEAKER) (test Bloody Clear A code = 510) COLOR FLUID (BEAKER) (test code Red Colorless, Straw A = 511) RBC FLUID (BEAKER) (test code = 73160 /cu mm <=1 H 513) TOTAL NUCLEATED [...] = 2873) BODY FLUID CELL COUNT WITH [id number] 18:15:44 Test Item Value Reference Range Interpretation Comments APPEARANCE FLUID Turbid Clear A (BEAKER) (test code = 510) COLOR FLUID (BEAKER) [place] Colorless, Straw A (test code = 511) RBC FLUID (BEAKER) 19919 /cu mm <=1 H (test code = [...] for (BEAKER) (test code = malignancy 2619) [id number] Shaneka Saab M.D. (BEAKER) (test code = (electronic 2620) signature) CONTAINER BODY FLUID EDTA Tube (BEAKER) (test code = 2483) BODY FLUID CELL COUNT WITH [id number] 18:14:08 Test Item Value Reference Range Interpretation Comments APPEARANCE FLUID Turbid Clear A (BEAKER) (test code = 510) COLOR FLUID (BEAKER) [place] Colorless, Straw A (test code = 511) RBC FLUID (BEAKER) 88405 /cu mm <=1 H (test code = [...] for (BEAKER) (test code = malignancy 2619) [id number] Shaneka Saab M.D. (BEAKER) (test code = (electronic 2620) signature) CONTAINER BODY FLUID EDTA Tube (BEAKER) (test code = 2873) [id number] 09:02:50 [facility] : 1965 Sex: FUltrasound guided left thoracentesis.Clinical History: Left pleural effusion.Modality: Ultrasound.Sedation: None. Website Developer: Ellis Lylesistant: None. Estimated Blood Loss: 1ccSpecimen: [...] area wasanesthetized with 2% lidocaine, a 4 Nicaraguan one-step catheter wasadvanced into the pleural space under ultrasound guidance. Aftercompletion of drainage, the catheter was removed. There was no evidenceof immediate complication. Post procedure chest x-ray demonstrated nopneumothorax. IMPRESSION:Impression:Successful and uncomplicated ultrasound guided left thoracentesis.Electronically Signed By: Chano Baxter 09:04 CDTWorkstation Name: [id number] FLUID CELL COUNT WITH DIFFERENTIAL 2023-06-13 14:07:46 Test Item Value Reference Range Interpretation Comments APPEARANCE FLUID (BEAKER) Bloody Clear A (test code = 510) COLOR FLUID (BEAKER) (test [place] Colorless, Straw A code = 511) RBC FLUID (BEAKER) (test 09738 /cu mm <=1 H code = 513) [...] (BEAKER) (test code = 2873) COMPREHENSIVE METABOLIC [id number] 12:02:40 Test Item Value Reference Range Interpretation [...] not appl icable for dialysis patien ts Belt Repairer ID - JSBILIRUBIN, [id number] 12:02:40 Test Item Value Reference Range Interpretation Comments BILIRUBIN DIRECT (BEAKER) (test 0.7 mg/dL 0.1-0.5 H code = 706) Belt Repairer ID - JSURINALYSIS W/ [id number] 12:02:07 Test Item Value Reference Range Interpretation [...] (test code Urine, Clean Catch = 2795) Belt Repairer ID - [auto]Belt Repairer ID - techPROTHROMBIN TIME/[id number] 11:39:52 Test Item Value Reference Range Interpretation [...] mechanical heart valves.CBC W/PLT COUNT & AUTO [id number] 11:17:07 Test Item Value Reference Range Interpretation [...] 2801) XR CHEST 1 VIEW PORTABLE / [id number] 10:26:47 [facility] : 1965 Sex: FXR CHEST 1 VIEW PORTABLE / BEDSIDECLINICAL HISTORY: s/p left thoracentesis TECHNIQUE: Single view of the chest.COMPARISON: June 09, 2023IMPRESSION:Left lung base opacities likely atelectasis or pneumonia. However, asmall left pleural effusion may remain. Right lung is clear. Nopneumothorax. The cardiomediastinal silhouette is magnified bytechnique. The osseous structures appear stable.Electronically Signed By: Wilber Warner06/13/2023 10:28 CDTWorkstation Name: [id number] 12:00:40 Test Item Value Reference Range Interpretation Comments CULTURE (BEAKER) (test No growth in 5 days code = 1095) BLOOD [id number] 12:00:40 Test Item Value Reference Range Interpretation Comments CULTURE (BEAKER) (test No growth in 5 days code = 1095) US [id number] 12:18:33 [facility] : 1965 Sex: [...] Signed By: Mp Harris06/09/2023 12:21 CDTWorkstation Name: [id number] THORACENTESIS 2023-06-09 11:39:25 [facility] : 1965 Sex: [...] thoracentesis.Electronically Signed By:Mp Harris06/09/2023 11:47 CDTWorkstation Name: [id number] CHEST 1 VIEW PORTABLE / [id number] 11:38:35 [facility] : 1965 Sex: FChest AP portable erectCOMPARISON STUDY: 06/07/2023History provided: Status post 2 L left thoracentesis, hepatichydrothoraxSmall amount of pleural fluid remains on the left. No pneumothorax.Lungs are clear and heart size normal.Electronically Signed By: Mp Harris06/09/2023 11:40 CDTWorkstation Name: [id number] CHEST 2 [id number] 13:30:11 [facility] : 1965 Sex: FEXAMINATION: XR CHEST 2 VIEWS INDICATION: SOBCOMPARISON: CXR of the prior day FINDINGS:LINES/TUBES: None LUNGS: The lungs are well inflated. No focal airspace consolidation.PLEURA: No pleural effusion or pneumothorax.MEDIASTINUM: Interval development of moderate left pleural effusion.BONES/SOFT TISSUES: Noacute osseous injury.ABDOMEN: No free air under the diaphragm.IMPRESSION:Moderate left pleural effusion.Electronically Signed By: Alexandro Alberto06/07/2023 13:32 CDTWorkstation Name: [id number] FETOPROTEIN (AFP), TUMOR [id number] 13:04:03 Test Item Value Reference Range Interpretation Comments ALPHA-FETOPROTEIN (BEAKER) (test 2.4 ng/mL <10.0 code = 1094) Belt Repairer ID - ADMINCBC W/PLT COUNT & AUTO [id number] 12:46:38 Test Item Value Reference Range Interpretation [...] (BEAKER) (test code = 2801) COMPREHENSIVE METABOLIC [id number] 12:03:20 Test Item Value Reference Range Interpretation [...] not appl icable for dialysis patien ts Belt Repairer ID - EOBILIRUBIN, [id number] 12:03:20 Test Item Value Reference Range Interpretation Comments BILIRUBIN DIRECT (BEAKER) (test 0.8 mg/dL 0.1-0.5 H code = 706) Belt Repairer ID - EOPROTHROMBIN TIME/[id number] 11:59:37 Test Item Value Reference Range Interpretation Comments PROTIME (DANNY) (test code = 20.6 seconds 11.9-14.2 H 759) INR (DANNY) (test code = 370) 1.81 <=5.90 RECOMMENDED COUMADIN/WARFARIN INR THERAPY RANGESSTANDARD DOSE: 2.0 - 3.0 Includes: PROPHYLAXIS for venous thrombosis, systemic embolization; TREATMENT for venous thrombosis and/or pulmonary embolus.HIGH RISK: Target INR is 2.5-3.5 for patients with mechanical heart valves. [id number] 13:54:41 [facility] : 1965 Sex: FUltrasound guided left thoracentesis.Clinical History: Left pleural effusion.Modality: Ultrasound.Sedation: None. Website Developer: Ellis Lylesistant: None. Estimated Blood Loss: 1ccSpecimen: [...] area wasanesthetized with 2% lidocaine, a 4 Nicaraguan one-step catheter wasadvanced into the pleural space under ultrasound guidance. Aftercompletion of drainage, the catheter was removed. There was no evidenceof immediate complication. Post procedure chest x-ray demonstrated nopneumothorax. IMPRESSION:Impression:Successful and uncomplicated ultrasound guided left thoracentesis.Electronically Signed By: Galen Lovett06/06/2023 13:56 CDTWorkstation Name: [id number] FLUID CELL COUNT WITH DIFFERENTIAL 2023-06-06 13:34:54 Test Item Value Reference Range Interpretation Comments APPEARANCE FLUID (BEAKER) Turbid Clear A (test code = 510) COLOR FLUID (BEAKER) (test [place] Colorless, Straw A code = 511) RBC FLUID (BEAKER) (test 39139 /cu mm <=1 H code = 513) [...] 2873) XR CHEST 1 VIEW PORTABLE / [id number] 12:21:34 [facility] EVER : 1965 Sex: FINDICATION: s/p left thoracentesisCOMPARISON: 06/03/2023TECHNIQUE: Single frontal view of the chest.FINDINGS: Lines, tubes, and devices: None.Lungs and pleura: Scattered linear atelectasis is present. Nopneumothorax.Heart and mediastinum: Normal heart size. Unremarkable mediastinalcontours.Osseous structures: No acute abnormality.Other: None.IMPRESSION:No acute intrathoracic abnormality.Electronically Signed By: Brian Gresham06/06/2023 12:23 CDTWorkstation Name: [id number] FLUID CELL COUNT WITH [id number] 19:43:07 Test Item Value Reference Range Interpretation Comments APPEARANCE FLUID (BEAKER) (test Cloudy Clear A code = 510) COLOR FLUID (BEAKER) (test code [place] Colorless, Straw A = 511) RBC FLUID (BEAKER) (test code = 71237 /cu mm <=1 H 513) TOTAL NUCLEATED [...] = 2873) BODY FLUID CELL COUNT WITH [id number] 19:39:04 Test Item Value Reference Range Interpretation Comments APPEARANCE FLUID (BEAKER) (test Cloudy Clear A code = 510) COLOR FLUID (BEAKER) (test code [place] Colorless, Straw A = 511) RBC FLUID (BEAKER) (test code = 58273 /cu mm <=1 H 513) TOTAL NUCLEATED [...] 2873) XR CHEST 1 VIEW PORTABLE / [id number] 18:37:20 [facility] : 1965 Sex: [...] Signed By: Mikael Darnell06/03/2023 18:39 CDTWorkstation Name: [id number] 16:52:49 [facility] : 1965 Sex: FUltrasound guided left thoracentesis.Clinical History: Left pleural effusion.Modality: Ultrasound.Sedation: None. Website Developer: Lupe Youngt: None. Estimated Blood Loss: 1ccSpecimen: [...] Signed By: Lee Diaz06/03/2023 16:54 CDTWorkstation Name: [id number] 16:52:47 [facility] : 1965 Sex: FUltrasound guided paracentesis.Clinical History: Ascites.Sedation: None. Website Developer: Lupe Youngt: None. Estimated Blood Loss: < [...] anesthesia was achieved with 2% lidocaine,a 5 Nicaraguan one- step catheter was advanced into the peritoneal cavityunder ultrasound guidance. After completion of drainage, the catheterwas removed. There was no evidence of complication.IMPRESSION:Impression:Successful ultrasound guided paracentesis.Electronically Signed By: Lee Diaz06/03/2023 16:54 CDTWorkstation Name: [id number] 15:19:25 Test Item Value Reference Range Interpretation Comments POC-CREATININ 1.3 mg/dL 0.6-1.3 : TESTED AT [facility] [address]) [facility], [address]: (test code = Belt Repairer/Techni shavon ID = [id number]) [id number] for Fall er, Christen POC-EGFR 47 Interpretation of eGFR (BEAKER) mL/min/1.73M2 Values Stage D escription (test code = Result G1 [place] l or high 1860) >=90 G2 Mildly decreased 60-89 G3a Mildl y to moderately 45-5 9 G3b Moderately to s michelle 30-44 G4 Severely dec reased 15-29 G5 Kidney Fail ure <15Reported eGF R is based on the CKD-EPI 202 1 equation that does not u se a race coefficientEsti mated GFR is not as accurate as Creatinine Carol rockwell in predicting glom erular filtration rate . Estimated GFR is not appl icable for dialysis patien BASIC METABOLIC [id number] 10:36:57 Test Item Value Reference Range Interpretation [...] not appl icable for dialysis patien ts Belt Repairer ID - [id number] 20:11:59Medical Cytology Report Case: [id number] Authorizing Provider: Zakia Taylor MD Collected: 05/30/2023 01:14 PM Ordering Location: [address] Received: 05/31/2023 08:46 AM Service Pathologist: Hany Ferrer MD Specimen: Pleural, Left LEFT PLEURAL FLUID (CYTOSPINS AND CELL BLOCK): -NEGATIVE FOR MALIGNANCY Reactive mesothelial cells admixed with many histiocytes and small lymphocytes with background blood Signing Pathologist Direct Phone Line: [phone] signed by Akhil Ferrer MD on 06/01/2023 at 8:11 [id number], [id number] y.o. 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 [...] was fixed in formalin at 16:23 on 05/31/2023 erformed.[facility], Department of Pathology, [address] [place] [address], OhypwyS[facility], [facility] of Path[facility], [address] [place] [address], QpwigtSutter Solano Medical Center, Department of Pathology, [address] [place] [address], FNIY FLUID CULTURE + GRAM [id number] 14:54:01 Test Item Value Reference Range Interpretation Comments CULTURE (BEAKER) (test code = 1095) No growth BODY FLUID CULTURE + GRAM [id number] 14:53:49 Test Item Value Reference Range Interpretation Comments CULTURE (BEAKER) No growth (test code = 1095) GRAM STAIN RESULT 2+ WBCs Initial gr am stain (BEAKER) (test performed hui or to code = 1123) incubation. 05/30/2023 7:45 PMEugene Fermin GRAM STAIN RESULT No organisms seen Initi al gram stain (BEAKER) (test performed hui or to code = 836841) incubation. 05/30/2023 7:45 PMEugene Fermin URINALYSIS WITHOUT [id number] 14:07:53 Test Item Value Reference Range Interpretation [...] = 463) SOURCE(BEAKER) (test code = 2795) Belt Repairer ID - [auto]Belt Repairer ID - techSODIUM, RANDOM [id number] 14:00:32 Test Item Value Reference Range Interpretation Comments SODIUM URINE (BEAKER) (test code = < meq/L 243) Reference Range: No NormalsOperator ID - ADMINCHLORIDE, RANDOM [id number] 13:50:48 Test Item Value Reference Range Interpretation Comments CHLORIDE URINE (BEAKER) (test code = < meq/L 20-330 L 682) Reference Range: No NormalsOperator ID - ADMINPOTASSIUM, RANDOM [id number] 13:50:48 Test Item Value Reference Range Interpretation Comments POTASSIUM URINE (BEAKER) (test 40.7 meq/L code = 195) Reference Range: No NormalsOperator ID - ADMINXR CHEST 1 VIEW PORTABLE / BEDSIDE 2023-06-01 13:33:28 [facility] : 1965 [...] Signed By: Ken Sauer06/01/2023 13:35 CDTWorkstation Name: [id number] 2023-06-01 08:58:03 Test Item Value Reference Range Interpretation Comments CORTISOL, TOTAL (BEAKER) (test code 4.3 ug/dL 3.7-19.4 = 2755) Belt Repairer ID - EMCOMPREHENSIVE METABOLIC [id number] 06:27:56 Test Item Value Reference Range Interpretation [...] not appl icable for dialysis patien ts Belt Repairer ID - [id number] 06:23:51 Test Item Value Reference Range Interpretation Comments MAGNESIUM (BEAKER) (test code = 2.0 mg/dL 1.6-2.6 627) Belt Repairer ID - [id number] 06:23:51 Test Item Value Reference Range Interpretation Comments PHOSPHORUS (BEAKER) (test code = 4.2 mg/dL 2.3-4.7 604) Belt Repairer ID - EMPROTHROMBIN TIME/[id number] 06:03:59 Test Item Value Reference Range Interpretation [...] /100 WBC 0-0 (test code = 413) [id number] 16:04:53 Test Item Value Reference Range Interpretation Comments PHOSPHORUS (BEAKER) (test code = 3.5 mg/dL 2.3-4.7 604) Belt Repairer ID - EMPTH, [id number] 09:20:01 Test Item Value Reference Range Interpretation Comments PARATHYROID HORMONE INTACT 32.8 pg/mL 8.5-72.5 (BEAKER) (test code = 577) Belt Repairer ID - EMCALCIUM, [id number] 08:55:20 Test Item Value Reference Range Interpretation [...] 0-0 (test code = 413) BASIC METABOLIC [id number] 06:24:57 Test Item Value Reference Range Interpretation [...] not appl icable for dialysis patien ts Belt Repairer ID - [id number] 06:17:32 Test Item Value Reference Range Interpretation Comments MAGNESIUM (BEAKER) 1.8 mg/dL 1.6-2.6 Specimen slightly (test code = 627) hemolyzed Belt Repairer ID - MMBASIC METABOLIC [id number] 17:03:14 Test Item Value Reference Range Interpretation [...] not appl icable for dialysis patien ts Belt Repairer ID - MMBLOOD GAS, [id number] 16:57:12 Test Item Value Reference Range Interpretation [...] (test code = 1819) 21.0 LACTIC ACID, [id number] 16:56:33 Test Item Value Reference Range Interpretation Comments LACTATE BLOOD VENOUS (2) (BEAKER) 1.74 mmol/L 0.50-2.00 (test code = 2872) Belt Repairer ID - MMUS [id number] 16:30:45 [facility] : 1965 Sex: FUltrasound guided left thoracentesis.Clinical History: Left pleural effusion.Modality: Ultrasound.Sedation: None. Website Developer: Lupe Glover PA-CAssistant: None. Estimated Blood Loss: 1ccSpecimen: 2100 cc [...] Signed By: Ken Sauer05/30/2023 16:32 CDTWorkstation Name: [id number] 16:30:43 [facility] : 1965 Sex: FUltrasound guided paracentesis.Clinical History: Ascites.Sedation: None. Website Developer: Lupe VERONICACAssistant: None. Estimated Blood Loss: < [...] anesthesia was achieved with 2% lidocaine,a 5 Nicaraguan one-step catheter was advanced into the peritoneal cavityunder ultrasound guidance. After completion of drainage, the catheterwas removed. There was no evidence of complication.IMPRESSION:Impression:Successful ultrasound guided paracentesis.Electronically Signed By: Ken Sauer05/30/2023 16:32 CDTWorkstation Name: [id number] FLUID CELL COUNT WITH [id number] 16:28:58 Test Item Value Reference Range Interpretation Comments APPEARANCE FLUID Cloudy Clear A (BEAKER) (test code = 510) COLOR FLUID (BEAKER) Brown Colorless, Straw A (test code = 511) RBC FLUID (BEAKER) 79075 /cu mm See_Comment H [Automat ed message] [...] (BEAKER) (test code = 2873) BASIC METABOLIC [id number] 15:47:55 Test Item Value Reference Range Interpretation [...] not appl icable for dialysis patien ts Belt Repairer ID - MMXR CHEST 1 VIEW PORTABLE / [id number] 14:38:54 [facility] : 1965 Sex: [...] By: Lj Stevenson MD05/30/2023 14:40 CDTWorkstation Name: [id number] CHEST 1 VIEW PORTABLE / BEDSIDE 2023-05-30 13:41:45 [facility] : 1965 Sex: FCLINICAL HISTORY: f/u pleural effusion TECHNIQUE: 1 view of the chest.COMPARISON: 05/27/2023IMPRESSION:There is an increased small left pleural effusion with adjacent airspaceopacity. The right lung remainswell-aerated. No cardiomegaly.Electronically Signed By: Antwan Flor05/30/2023 13:43 CDTWorkstation Name: [id number] 09:50:06Medical Cytology Report Case: [id number] Authorizing Provider: Rigo Sanz MD Collected: 05/27/2023 09:09 AM Ordering Location: [address] Received: 05/27/2023 12:34 PM Service Pathologist: Salvador Davenport MD Specimen: Peritoneal Fluid PERITONEAL FLUID (CYTOSPINS AND CELL BLOCK): - NEGATIVE FOR MALIGNANCY Reactive mesothelial cells admixed with mixed inflammatory cells Signing PathologistDirect Phone Line: [phone] signed by Salvador Davenport MD on 05/30/2023 at 9:50 AMPlease also see cytopathology case: [id number], [id number] y.o. F with decompensated cirrhosis secondary to [...] fixed in formalin at 14:06 on 05/27/2023 Performed.[facility], Department of Pathology, [address] [place] [address], [facility]bjnSan [facility], [facility] of [facility], [address] [place] [address], MqvgikS[facility], Department ofPathology, [address] [place] [address], [id number] 09:45:15Medical Cytology Report Case: [id number] Authorizing Provider: Rigo Sanz MD Collected: 05/27/2023 10:05 AM Ordering Location: [address] Received: 05/27/2023 12:58 PM Service Pathologist: Salvador Davenport MD Specimen: Pleural, Left LEFT PLEURAL FLUID (CYTOSPINS AND CELL BLOCK): - NEGATIVE FOR MALIGNANCY Reactive mesothelial cells admixed with many histiocytes and small lymphocytes Signing Pathologist Direct Phone Line: [phone] signed by Salvador Davenport MD on 05/30/2023 at 9:45 AMPlease also see cytopathology case: [id number], [id number] y.o. F with decompensated cirrhosis secondary to [...] fixed in formalin at 14:13 on 05/27/2023 Performed.[facility], Department of Pathology, [address] [place] [address], KnprjtS[facility], Department of Pathology, [address] [place] [address], MggtutSutter Solano [facility] Center, Department of Pathology, [address] [place] [address], SVIYYXU DEHYDROGENASE (LDH)2023-05-30 08:06:15 Test Item Value Reference Range Interpretation Comments LACTATE DEHYDROGENASE (BEAKER) (test 257 U/L 125-220 H code = 635) Belt Repairer ID - [id number] 07:17:06 Test Item Value Reference Range Interpretation Comments FERRITIN (BEAKER) (test code = 263.31 ng/mL 5.00-275.00 361) Belt Repairer ID - MARCOVITAMIN [id number] 07:00:10 Test Item Value Reference Range Interpretation Comments VITAMIN B12 (BEAKER) (test code = 1118 pg/mL 213-816 H 774) Belt Repairer ID - MARCOBASIC METABOLIC [id number] 06:37:01 Test Item Value Reference Range Interpretation [...] not appl icable for dialysis patien ts Belt Repairer ID - [id number] 06:37:01 Test Item Value Reference Range Interpretation Comments MAGNESIUM (BEAKER) (test code = 2.1 mg/dL 1.6-2.6 627) Belt Repairer ID - MIGUELAHMET, TIBC, % SAT. (WITHOUT FERRITIN)2023-05-30 06:30:22 Test Item Value Reference Range Interpretation Comments IRON (BEAKER) (test code = 547) 59.0 ug/dL 40.0-160.0 TOTAL IRON BINDING CAPACITY 113 ug/dL 250-450 L (BEAKER) (test code = 769) IRON % SATURATION (2) (BEAKER) 52 % 20-55 (test code = 2590) Belt Repairer ID - MARCOCBC (HEMOGRAM ONLY)2023-05-30 06:25:23 Test [...] = 413) BODY FLUID CULTURE + GRAM [id number] 17:02:00 Test Item Value Reference Range Interpretation Comments CULTURE (BEAKER) (test code = 1095) No growth BODY FLUID CULTURE + GRAM [id number] 17:01:59 Test Item Value Reference Range Interpretation Comments CULTURE (BEAKER) (test code = 1095) No growth BASIC METABOLIC [id number] 14:41:59 Test Item Value Reference Range Interpretation [...] not appl icable for dialysis patien ts Belt Repairer ID - TOSHA [id number] 02:04:38 Test Item Value Reference Range Interpretation Comments PHOSPHORUS (BEAKER) 3.6 mg/dL 2.3-4.7 Specimen slightly (test code = 604) hemolyzed Belt Repairer ID - ADMINCOMPREHENSIVE METABOLIC [id number] 02:04:38 Test Item Value Reference Range Interpretation [...] not appl icable for dialysis patien ts Belt Repairer ID - [id number] 02:04:37 Test Item Value Reference Range Interpretation Comments MAGNESIUM (BEAKER) 2.1 mg/dL 1.6-2.6 Specimen slightly (test code = 627) hemolyzed Belt Repairer ID - ADMINPROTHROMBIN TIME/[id number] 02:00:57 Test Item Value Reference Range Interpretation Comments PROTIME (BEAKER) 19.0 seconds 11.9-14.2 H (test code = 759) INR (BEAKER) (test 1.71 See_Comment [Automat ed message] code = 370) The system [employer] generated this result transmitted ref erence range: [...] (test 185 U/L 125-220 code = 635) Belt Repairer ID - ADMINOSMOLALITY, [id number] 13:50:12 Test Item Value Reference Range Interpretation Comments OSMOLALITY, SERUM (BEAKER) (test 286 mOsm/kg 275-295 code = 615) BASIC METABOLIC [id number] 12:16:44 Test Item Value Reference Range Interpretation [...] not appl icable for dialysis patien ts Belt Repairer ID - ADMINSODIUM, RANDOM [id number] 12:03:54 Test Item Value Reference Range Interpretation Comments SODIUM URINE (BEAKER) (test code = < meq/L 243) Reference Range: No NormalsOperator ID - ADMINCHLORIDE, RANDOM [id number] 11:46:25 Test Item Value Reference Range Interpretation Comments CHLORIDE URINE (BEAKER) (test code = < meq/L 20-330 L 682) Reference Range: No NormalsOperator ID - ADMINOSMOLALITY, [id number] 10:35:30 Test Item Value Reference Range Interpretation Comments OSMOLALITY URINE 571 mOsm/kg See_Comment [Automated message] (BEAKER) (test code = The sy stem which 614) generated this result transmitted ref erence range: 50-1,200 mOsm/kg. The reference range was not used to int erpret this result as normal/abnormal . COMPREHENSIVE METABOLIC [id number] 02:35:42 Test Item Value Reference Range Interpretation [...] not appl icable for dialysis patien ts Belt Repairer ID - [id number] 02:35:41 Test Item Value Reference Range Interpretation Comments MAGNESIUM (BEAKER) 2.1 mg/dL 1.6-2.6 Specimen slightly (test code = 627) hemolyzed Belt Repairer ID - [id number] 02:35:41 Test Item Value Reference Range Interpretation Comments PHOSPHORUS (BEAKER) 3.5 mg/dL 2.3-4.7 Specimen slightly (test code = 604) hemolyzed Belt Repairer ID - ADMINPROTHROMBIN TIME/[id number] 02:22:16 Test Item Value Reference Range Interpretation Comments PROTIME (BEAKER) 20.6 seconds 11.9-14.2 H (test code = 759) INR (BEAKER) (test 1.89 See_Comment [Automat ed message] code = 370) The system [employer] generated this result transmitted ref erence range: [...] WBC 0-0 (test code = 413) US [id number] 13:56:27 [facility] 1965 Sex: FUltrasound guided paracentesis.Clinical History: Ascites.Sedation: None. Website Developer: Danuta Dimas-CAssistant: None. Estimated Blood Loss: < [...] anesthesia was achieved with 2% lidocaine,a 5 [place] one-step catheter was advanced into the peritoneal cavityunder ultrasound guidance. After completion of drainage, the catheterwas removed. There was no evidence of complication.IMPRESSION:Impression:Successful ultrasound guided paracentesis.Electronically Signed By: Galen Lovett05/27/2023 13:58 CDTWorkstation Name: [id number] 13:56:26 [facility] : 1965 Sex: FUltrasound guided left thoracentesis.Clinical History: Left pleural effusion.Modality: Ultrasound.Sedation: None. Website Developer: Danuta Corralistant: None. Estimated Blood Loss: 1ccSpecimen: [...] Signed By: Galen Lovett05/27/2023 13:58 CDTWorkstation Name: [id number] FLUID CELL COUNT WITH [id number] 13:48:51 Test Item Value Reference Range Interpretation Comments APPEARANCE FLUID Bloody Clear A (BEAKER) (test code = 510) COLOR FLUID (BEAKER) Red Colorless, Straw A (test code = 511) RBC FLUID (BEAKER) 15911 /cu mm See_Comment H [Automat ed message] [...] (test code The syst em which = 2866) generated this result transmit joanna reference range [...] = 2873) BODY FLUID CELL COUNT WITH [id number] 13:48:16 Test Item Value Reference Range Interpretation Comments APPEARANCE FLUID Bloody Clear A (BEAKER) (test code = 510) COLOR FLUID (BEAKER) Red Colorless, Straw A (test code = 511) RBC FLUID (BEAKER) 99632 /cu mm See_Comment H [Automat ed message] [...] 2873) XR CHEST 1 VIEW PORTABLE / [id number] 11:47:09 [facility] : 1965 Sex: [...] Signed By: Deandre Retana05/27/2023 12:01 CDTWorkstation Name: [id number] 2023-05-27 07:10:45 Test Item Value Reference Range Interpretation Comments MAGNESIUM (BEAKER) (test code = 2.2 mg/dL 1.6-2.6 627) Belt Repairer ID - ADMINHEPATIC FUNCTION [id number] 07:10:45 Test Item Value Reference Range Interpretation [...] (test code = 25 U/L 6-55 347) Belt Repairer ID - ADMINBASIC METABOLIC [id number] 07:10:44 Test Item Value Reference Range Interpretation [...] not appl icable for dialysis patien ts Belt Repairer ID - ADMINPROTHROMBIN TIME/[id number] 06:47:38 Test Item Value Reference Range Interpretation Comments PROTIME (BEAKER) 19.9 seconds 11.9-14.2 H (test code = 759) INR (BEAKER) (test 1.81 See_Comment [Automat ed message] code = 370) The system [employer] generated this result transmitted ref erence range: <=5.90. The reference range was not used to int erpret this result as normal/abnormal . RECOMMENDED COUMADIN/WARFARIN INR THERAPY RANGESSTANDARD DOSE: 2.0 - 3.0 Includes: PROPHYLAXIS for venous thrombosis, systemic embolization; TREATMENT for venous thrombosis and/or pulmonary embolus.HIGH RISK: Target INR is 2.5-3.5 for patients with mechanical heart valves.CBC W/PLT COUNT & AUTO [id number] 06:46:29 Test Item Value Reference Range Interpretation [...] (BEAKER) (test code = 2801) COMPREHENSIVE METABOLIC [id number] 18:10:21 Test Item Value Reference Range Interpretation [...] hemolyzed code = 347) EGFR (BEAKER) 50 Interpretati on of eGFR (test code = [...] not appl icable for dialysis patien ts Belt Repairer ID - ADMINXR CHEST 1 VIEW PORTABLE / [id number] 18:02:01 [facility] : 1965 Sex: FTECHNIQUE: Frontal view of the chest.INDICATION: eval for left pleural effusion.COMPARISON: 05/23/2023.FINDINGS:LINES/TUBES: None.HEART AND MEDIASTINUM: Cardiomediastinal contour is stable. LUNGS: The lungs are well inflated and clear. No consolidation orpulmonary edema.PLEURA: New small left pleural effusion. No pneumothorax.SOFT TISSUES AND BONES: Unremarkable.IMPRESSION:1. New small left pleural effusion. No pneumothorax.Electronically Signed By: Adilia Polanco05/26/2023 18:04 CDTWorkstation Name:[id number] ACID, VENOUS 2023-05-26 17:59:38 Test Item Value Reference Range Interpretation Comments LACTATE BLOOD VENOUS 1.75 mmol/L 0.50-2.00 Specime n slightly (2) (BEAKER) (test hemolyzed code = 2872) Belt Repairer ID - ADMINCBC W/PLT COUNT & AUTO [id number] 17:55:38 Test Item Value Reference Range Interpretation [...] (test code = 2801) HIGH SENSITIVITY TROPONIN [id number] 21:21:49 Test Item Value Reference Range Interpretation Comments HIGH SENSITIVITY < pg/ml See_Comment [Automated message] TROPONIN I (test code = The system which [id number]) generated this result transmitted ref erence range: <=17. Th e reference range was not used to interpr et this result as normal/abnormal . Belt Repairer ID - ADMINThe ELECTRODYNAMICIST STAT High Sensitivity Troponin-I results should be used in conjunction with other diagnostic information such as ECG, clinical observations and information, and patientsymptoms to aid in the diagnosis of CT. [id number] 21:18:10 Test Item Value Reference Range Interpretation Comments LIPASE (BEAKER) (test code = 749) 190 U/L 8-78 H Belt Repairer ID - ADMINCOMPREHENSIVE METABOLIC [id number] 21:18:09 Test Item Value Reference Range Interpretation [...] not appl icable for dialysis patien ts Belt Repairer ID - [id number] 21:18:09 Test Item Value Reference Range Interpretation Comments MAGNESIUM (BEAKER) (test code = 2.3 mg/dL 1.6-2.6 627) Belt Repairer ID - ADMINCBC W/PLT COUNT & AUTO [id number] 21:03:50 Test Item Value Reference Range Interpretation [...] PERCENT (BEAKER) (test code = 2801) US [id number] 10:13:39 [facility] : 1965 Sex: FUltrasound guided left thoracentesis.Clinical History: Left pleural effusion.Modality: Ultrasound.Sedation: None. Website Developer: Danuta Corralistant: None. Estimated Blood Loss: 1ccSpecimen: [...] Signed By: Chano Enriquez05/24/2023 10:15 CDTWorkstation Name: [id number] FLUID CELL COUNT WITH [id number] 14:05:09 Test Item Value Reference Range Interpretation Comments APPEARANCE FLUID Cloudy Clear A (BEAKER) (test code = 510) COLOR FLUID (BEAKER) [place] Colorless, Straw A (test code = 511) RBC FLUID (BEAKER) 78775 /cu mm See_Comment H [Automat ed message] [...] 2873) XR CHEST 1 VIEW PORTABLE / [id number] 10:01:15 [facility] : 1965 Sex: [...] pneumonia or airspace edema.Electronically Signed By: Alexandro Alberto05/23/2023 10:03 CDTWorkstation Name: [id number] 17:34:08[facility] : 1965 Sex: FUltrasound guided paracentesis.Clinical History: Ascites.Sedation: None. Website Developer: Hannah Munozt: None. Estimated Blood Loss: < 1 cc.Specimen: 3000 cc of serosanguineous fluid, samplessent to laboratory.Technique: Informed consent was obtained. The risks of pain, bleeding,infection, bowel perforation, injury to adjacent structures, and adversemedication reactions were discussed withthe patient. After informedconsent was obtained, the patient's abdomen was scanned. The rightupper quadrant of the abdomen was selected for paracentesis. After thelargest fluid pocket area was marked, and the anterior abdominal wallwas evaluated with color Doppler to exclude presence of blood vesselstraversing the area, the skin was prepped and draped in the usualsterile manner. After local anesthesia was achieved with 2% lidocaine,a 5 [place]araguan one-step catheter was advanced into the peritoneal cavityunder ultrasound guidance. After completion of drainage, the catheterwas removed. There was no evidence of complication.IMPRESSION:Impression:Successful ultrasound guided paracentesis. Electronically Signed By: Galen Lovett05/20/2023 17:36 CDTWorkstation Name: [id number] 17:34:07 [facility] : 1965 Sex: FUltrasound guided left-sided thoracentesis.Clinical History: Left pleural effusion.Modality: Ultrasound.Sedation: None. Website Developer: Hannah Munozt: None. Estimated Blood Loss: 1ccSpecimen: 2100 cc of serosanguineous fluid. Technique: Informed consent was obtained. The risks of pain, bleeding,infection, lung collapse/pneumothorax, injury to adjacent structures,and adverse medication reactions were discussed with the patient. Thepatient's left-sided hemithorax was scanned from the back, with thepatient in a sitting position. After the largest [...] thoracentesis.Electronically Signed By: Galen Lovett05/20/2023 17:36 CDTWorkstation Name:[id number] FLUID CELL COUNT WITH [id number] 15:58:13 Test Item Value Reference Range Interpretation Comments APPEARANCE FLUID Cloudy Clear A (BEAKER) (test code = 510) COLOR FLUID (BEAKER) [place] Colorless, Straw A (test code = 511) RBC FLUID (BEAKER) 67107 /cu mm See_Comment H [Automat ed message] [...] (test code The syst em which = 7731) generated this result transmit joanna reference range [...] = 2873) BODY FLUID CELL COUNT WITH [id number] 15:56:10 Test Item Value Reference Range Interpretation Comments APPEARANCE FLUID Cloudy Clear A (BEAKER) (test code = 510) COLOR FLUID (BEAKER) [place] Colorless, Straw A (test code = 511) RBC FLUID (BEAKER) 43314 /cu mm See_Comment H [Automat ed message] [...] 2873) XR CHEST 1 VIEW PORTABLE / [id number] 13:41:18 [facility] : 1965 Sex: FINDICATION: Post Thoracentesis LeftCOMPARISON: NoneTECHNIQUE: Single frontal view of the chest.FINDINGS: Lungs and pleura: Clear lungs. No effusion. No pneumothorax.Heart and mediastinum: Normal heart size.Unremarkable mediastinalcontours.Osseous structures: No acute abnormality.Other: None.IMPRESSION:No acute intrathoracic abnormality.Electronically Signed By: Estrella Walters05/20/2023 13:58 CDTWorkstation Name: [id number] 2023-05-20 11:08:26 Test Item Value Reference Range Interpretation Comments POC-CREATININ 1.8 mg/dL 0.6-1.3 H : TESTED AT [facility] [address]) [facility], [address]: (test code = Belt Repairer/Techni shavon ID = [id number]) [id number] for Roseanna Abdi POC-EGFR 32 Interpretation of eGFR ([facility]) mL/min/1.73M2 Values Stage D escription (test [...] appl icable for dialysis patien ts BLOOD [id number] 13:01:03 Test Item Value Reference Range Interpretation Comments CULTURE (BEAKER) (test No growth in 5 days code = 1095) BLOOD [id number] 13:00:54 Test Item Value Reference Range Interpretation Comments CULTURE (BEAKER) (test No growth in 5 days code = 1095) The specimen volume collected for this blood culture was below the optimum (10 mL per bottle or 20 mL total). Use of lower volumes may adversely affect recovery and/or detection times of some organisms.[id number] 04:55:48 Test Item Value Reference Range Interpretation Comments PHOSPHORUS (BEAKER) (test code = 3.0 mg/dL 2.3-4.7 604) Belt Repairer ID - ADMINCOMPREHENSIVE METABOLIC [id number] 04:55:47 Test Item Value Reference Range Interpretation [...] not appl icable for dialysis patien ts Belt Repairer ID - [id number] 04:55:47 Test Item Value Reference Range Interpretation Comments MAGNESIUM (BEAKER) (test code = 1.9 mg/dL 1.6-2.6 627) Belt Repairer ID - ADMINCALCIUM, [id number] 04:34:04 Test Item Value Reference Range Interpretation Comments CALCIUM IONIZED (BEAKER) (test 1.14 mmol/L 1.12-1.27 code = 698) PH, BLOOD (BEAKER) (test code = 7.35 1810) CBC W/PLT COUNT & AUTO [id number] 04:30:17 Test Item Value Reference Range Interpretation [...] code = 2801) URINALYSIS W/ REFLEX URINE [id number] 17:32:40 Test Item Value Reference Range Interpretation [...] = 516) SOURCE(BEAKER) (test code = 2795) Belt Repairer ID - [auto]Belt Repairer ID - techUS [id number] 16:48:41 [facility] : 1965 Sex: FUltrasound guided left-sided thoracentesis.Clinical History: Left pleural effusion.Modality: Ultrasound.Sedation: None. Website Developer: Ellis Munozistant: None. Estimated Blood Loss: 1ccSpecimen: [...] Signed By: Lee Diaz05/17/2023 16:50 CDTWorkstation Name: [id number] FLUID CELL COUNT WITH [id number] 15:03:14 Test Item Value Reference Range Interpretation Comments APPEARANCE FLUID Bloody Clear A (BEAKER) (test code = 510) COLOR FLUID (BEAKER) Red Colorless, Straw A (test code = 511) RBC FLUID (BEAKER) 40866 /cu mm See_Comment H [Automat ed message] [...] 2873) XR CHEST 1 VIEW PORTABLE / [id number] 10:59:37 [facility] : 1965 Sex: FINDICATION: s/p left thoracentesisCOMPARISON: 05/13/2023TECHNIQUE: Single frontal view of the chest.FINDINGS: Lungs and pleura: Clear lungs. No effusion. No pneumothorax.Heart and mediastinum: Normal heart size. Unremarkable mediastinalcontours.Osseous structures: No acute abnormality.Other: None.IMPRESSION:No acute intrathoracic abnormality.Electronically Signed By: Estrella Walters05/17/2023 11:01 CDTWorkstation Name: [id number] FLUID CULTURE + GRAM [id number] 10:43:33 Test Item Value Reference Interpretation Comments [...] No organisms seen (BEAKER) (test code = 333356) GRAM STAIN RESULT From aerobic (BEAKER) (test code = bottle only: gram 042540) positive cocci in clusters COMPREHENSIVE METABOLIC [id number] 09:50:07 Test Item Value Reference Range Interpretation [...] appl icable for dialysis patien ts PROTHROMBIN TIME/[id number] 05:21:56 Test Item Value Reference Range Interpretation Comments PROTIME (BEAKER) 20.5 seconds 11.9-14.2 H (test code = 759) INR (BEAKER) (test 1.81 See_Comment [Automat ed message] code = 370) The system [employer] generated this result transmitted ref erence range: [...] code = 1095) No growth COMPREHENSIVE METABOLIC [id number] 05:31:14 Test Item Value Reference Range Interpretation [...] not appl icable for dialysis patien ts Belt Repairer ID - [id number] 05:26:57 Test Item Value Reference Range Interpretation Comments PHOSPHORUS (BEAKER) (test code = 3.2 mg/dL 2.3-4.7 604) Belt Repairer ID - [id number] 05:26:56 Test Item Value Reference Range Interpretation Comments MAGNESIUM (BEAKER) (test code = 1.8 mg/dL 1.6-2.6 627) Belt Repairer ID - MARCOCBC W/PLT COUNT & AUTO [id number] 05:17:21 Test Item Value Reference Range Interpretation [...] PERCENT (BEAKER) (test code = 2801) PROTHROMBIN TIME/[id number] 05:16:13 Test Item Value Reference Range Interpretation Comments PROTIME (BEAKER) 21.0 seconds 11.9-14.2 H (test code = 759) INR (BEAKER) (test 1.94 See_Comment [Automat ed message] code = 370) The system [employer] generated this result transmitted ref erence range: <=5.90. The reference range was not used to int erpret this result as normal/abnormal . RECOMMENDED COUMADIN/WARFARIN INR THERAPY RANGESSTANDARD DOSE: 2.0 - 3.0 Includes: PROPHYLAXIS for venous thrombosis, systemic embolization; TREATMENT for venous thrombosis and/or pulmonary embolus.HIGH RISK: Target INR is 2.5-3.5 for patients with mechanical heart valves.CALCIUM, [id number] 05:12:20 Test Item Value Reference Range Interpretation Comments CALCIUM IONIZED (BEAKER) (test 1.10 mmol/L 1.12-1.27 L code = 698) PH, BLOOD (BEAKER) (test code = 7.47 1810) US [id number] 08:41:54 [facility] : 1965 Sex: FPROCEDURE: Ultrasound-guided paracentesisProcedural PersonnelPrimary Belt Repairer: Scott Alexandre physician(s): Hector Welch-procedure diagnosis: AscitesPost-procedure [...] Signed By: Deandre Retana05/15/2023 08:43 CDTWorkstation Name: [id number] THORACENTESIS 2023-05-15 08:40:21 [facility] : 1965 Sex: FPROCEDURE: Ultrasound-guided LEFT thoracentesisProcedural PersonnelPrimary Belt Repairer: Scott Calle physician(s): PARISH Welchre-procedure diagnosis: Pleural [...] Signed By: Deandre Retana05/15/2023 08:42 CDTWorkstation Name: [id number] METABOLIC PANEL 2023-05-15 05:33:46 Test Item Value [...] not appl icable for dialysis patien ts Belt Repairer ID - STANLEY WPROTHROMBIN TIME/[id number] 05:13:59 Test Item Value Reference Range Interpretation Comments PROTIME (BEAKER) 21.1 seconds 11.9-14.2 H (test code = 759) INR (BEAKER) (test 1.95 See_Comment [Automat ed message] code = 370) The system [employer] generated this result transmitted ref erence range: <=5.90. The reference range was not used to int erpret this result as normal/abnormal . RECOMMENDED COUMADIN/WARFARIN INR THERAPY RANGESSTANDARD DOSE: 2.0 - 3.0 Includes: PROPHYLAXIS for venous thrombosis, systemic embolization; TREATMENT for venous thrombosis and/or pulmonary embolus.HIGH RISK: Target INR is 2.5-3.5 for patients with mechanical heart valves.SODIUM, RANDOM [id number] 09:48:43 Test Item Value Reference Range Interpretation Comments SODIUM URINE (BEAKER) (test code = 21 meq/L 243) Reference Range: No NormalsOperator ID - ADMINCHLORIDE, RANDOM [id number] 09:46:07 Test Item Value Reference Range Interpretation [...] = 1585) Occasional SOURCE(BEAKER) (test code = 8496) Belt Repairer ID - [auto]Belt Repairer ID - techHEPATIC FUNCTION [id number] 06:13:36 Test Item Value Reference Range Interpretation [...] Specimen slightly (test code = 347) hemolyzed Belt Repairer ID - ADMINSpecimen slightly ictericBASIC METABOLIC [id number] 06:13:35 Test Item Value Reference Range Interpretation [...] not appl icable for dialysis patien ts Belt Repairer ID - ADMINSpecimen slightly [id number] 06:13:34 Test Item Value Reference Range Interpretation Comments MAGNESIUM (BEAKER) 2.0 mg/dL 1.6-2.6 Specimen slightly (test code = 627) hemolyzed Belt Repairer ID - [id number] 06:13:34 Test Item Value Reference Range Interpretation Comments PHOSPHORUS (BEAKER) 3.7 mg/dL 2.3-4.7 Specimen slightly (test code = 604) hemolyzed Belt Repairer ID - ADMINPROTHROMBIN TIME/[id number] 06:03:52 Test Item Value Reference Range Interpretation Comments PROTIME (BEAKER) 19.7 seconds 11.9-14.2 H (test code = 759) INR (BEAKER) (test 1.72 See_Comment [Automat ed message] code = 370) The system [employer] generated this result transmitted ref erence range: [...] = 413) BODY FLUID CELL COUNT WITH [id number] 21:54:34 Test Item Value Reference Range Interpretation Comments APPEARANCE FLUID Turbid Clear A (BEAKER) (test code = 510) COLOR FLUID (BEAKER) Red Colorless, Straw A (test code = 511) RBC FLUID (BEAKER) 08586 /cu mm See_Comment H [Automat ed message] [...] FLUID 8 % (BEAKER) (test code = 0036) LYMPHS FLUID 60 % (BEAKER) (test code = 488) MONO/MACROPHAGE 32 % FLUID (BEAKER) (test code = 489) EOSINOPHILS FLUID 0 % (BEAKER) (test code = 491) BASO FLUID (BEAKER) 0 % (test code = 492) CONTAINER BODY FLUID EDTA Tube (BEAKER) (test code = 2873) BODY FLUID CELL COUNT WITH [id number] 20:50:26 Test Item Value Reference Range Interpretation Comments APPEARANCE FLUID Turbid Clear A (BEAKER) (test code = 510) COLOR FLUID (BEAKER) Red Colorless, Straw A (test code = 511) RBC FLUID (BEAKER) 96485 /cu mm See_Comment H [Automat ed message] [...] 2873) XR CHEST 1 VIEW PORTABLE / [id number] 18:23:54 [facility] : 1965 Sex: FAP portable chest x-ray.HISTORY: Follow-up chest x-ray post thoracentesis procedure on the left.COMPARISON: Previous chest x-ray earlier today at 12:15.FINDINGS: There are no signs of a pneumothorax. Thereis near completeresolution of the abnormal fluid in the left pleural space. The leftlung is clear.The right lung is well- expanded and clear. The heart size is normal.Vascularity is normal.IMPRESSION:Minimal residual fluid in the pleural space on the left andno signs of complication.Electronically Signed By: Gurdeep Pascal05/13/2023 18:25 CDTWorkstation Name: [id number] DEHYDROGENASE (LDH)2023-05-13 15:31:27 Test Item Value Reference Range Interpretation Comments LACTATE DEHYDROGENASE (BEAKER) (test 235 U/L 125-220 H code = 635) Belt Repairer ID - ADMINSARS-COV2/INFLUENZA/RSV YB-[id number] 14:50:54 Test Item Value Reference Range Interpretation Comments SARS-COV2/RT-PCR Negative Negative The SARS-Co V-2 target (test code = nucleic acids a re not 5764069) detected in thi s specimen. Negat krupa [...] individuals eleazar pected of COVID-19 by the Movity ider. INFLUENZA A RT-PCR Negative Negative The Flu A target nucleic (test code = acids are not d etected in 19101016) this specimen. INFLUENZA B RT-PCR Negative Negative The Flu B target nucleic (test code = acids are not d etected in 19101017) this specimen. RSV RT-PCR (test Negative Negative The RSV tar get nucleic code = 19101018) acids are no t detected in this [...] of the Act.Fact Sheet for Healthcare Providers:https ://www.[employer].com/Documents/Xpert%20Xpress%20SARS%20CoV-2/Fact%20Sheets/302-390 2%35HERX-GTH-9%20HEALTHCARE%20PROVIDERS%20FACT%20SHEET.pdfFact Sheet for Healthcare Patients:https://StepOut.[employer]/Docum ents/Xpert%20Xpress%20SARS%20Cov-2/Fact%20Sheets/302-3801%85RMMO-VEO-3%20PATIENT %20FACT%20SHEET.pdfCT ABDOMEN/PELVIS WITH IV [id number] 13:23:48 [facility] : 1965 Sex: FCT ABDOMEN/PELVIS [...] Signed By: Carolyn Block05/13/2023 13:25 CDTWorkstation Name: [id number] CHEST 1 VIEW PORTABLE / [id number] 12:55:58 [facility] : 1965 Sex: [...] Signed By: Brian Gresham05/13/2023 12:58 CDTWorkstation Name: [id number] ACID, VENOUS 2023-05-13 12:55:37 Test Item Value Reference Range Interpretation Comments LACTATE BLOOD VENOUS 1.89 mmol/L 0.50-2.00 Specime n moderately (2) (BEAKER) (test hemolyzed code = 2872) Belt Repairer ID - ADMINLACTIC ACID, [id number] 11:54:07 Test Item Value Reference Range Interpretation Comments LACTATE BLOOD VENOUS 2.16 mmol/L 0.50-2.00 H Specime n slightly (2) (BEAKER) (test hemolyzed code = 2872) Belt Repairer ID - ADMINHIGH SENSITIVITY TROPONIN [id number] 11:41:40 Test Item Value Reference Range Interpretation Comments HIGH SENSITIVITY 5 pg/ml See_Comment [Automated message] TROPONIN I (test code = The system which [id number]) generated this result transmitted ref erence range: <=17. Th e reference range was not used to interpr et this result as normal/abnormal . Belt Repairer ID - ADMINThe ELECTRODYNAMICIST STAT High Sensitivity Troponin-I results should be used in conjunction with other diagnostic information such as ECG, clinical observations and information, and patientsymptoms to aid in the diagnosis of CT. [id number] 11:35:55 Test Item Value Reference Range Interpretation Comments PARTIAL THROMBOPLASTIN TIME 29.6 seconds 22.5-36.0 (MANUELAKER) (test code = 760) PROTHROMBIN TIME/[id number] 11:35:17 Test Item Value Reference Range Interpretation Comments PROTIME (MANUELAKER) 19.0 seconds 11.9-14.2 H (test code = 759) INR (MANUELAKER) (test 1.71 See_Comment [Automat ed message] code = 370) The system [employer] generated this result transmitted ref erence range: [...] not appl icable for dialysis patien ts Belt Repairer ID - WDVSFYZPJAJ9530-04-10 11:34:38 Test Item Value Reference Range Interpretation Comments LIPASE (BEAKER) (test code = 749) 50 U/L 8-78 Belt Repairer ID - ADMINCBC W/PLT COUNT & AUTO [id number] 11:17:30 Test Item Value Reference Range Interpretation [...] = 2801) BODY FLUID CULTURE + GRAM [id number] 16:37:21 Test Item Value Reference Range Interpretation Comments CULTURE (BEAKER) (test code = 1095) No growth BODY FLUID CULTURE + GRAM [id number] 16:36:21 Test Item Value Reference Range Interpretation Comments CULTURE (BEAKER) (test code = 1095) No growth US [id number] 08:19:44 [facility] : 1965 Sex: FUltrasound guided left thoracentesis.Clinical History: Left pleural effusion.Modality: Ultrasound.Sedation: None. Website Developer: Lupe Youngt: None. Estimated Blood Loss: 1ccSpecimen: [...] Signed By: Galen Lovett05/11/2023 08:21 CDTWorkstation Name: [id number] METABOLIC [id number] 03:59:37 Test Item Value Reference Range Interpretation [...] not appl icable for dialysis patien ts Belt Repairer ID - [id number] 03:50:56 Test Item Value Reference Range Interpretation Comments MAGNESIUM (BEAKER) (test code = 2.1 mg/dL 1.6-2.6 627) Belt Repairer ID - ADMINPROTHROMBIN TIME/[id number] 03:46:55 Test Item Value Reference Range Interpretation Comments PROTIME (BEAKER) 22.2 seconds 11.9-14.2 H (test code = 759) INR (BEAKER) (test 2.00 See_Comment [Automat ed message] code = 370) The system [employer] generated this result transmitted ref erence range: <=5.90. The reference range was not used to int erpret this result as normal/abnormal . RECOMMENDED COUMADIN/WARFARIN INR THERAPY RANGESSTANDARD DOSE: 2.0 - 3.0 Includes: PROPHYLAXIS for venous thrombosis, systemic embolization; TREATMENT for venous thrombosis and/or pulmonary embolus.HIGH RISK: Target INR is 2.5-3.5 for patients with mechanical heart valves.CBC W/PLT COUNT & AUTO [id number] 03:34:57 Test Item Value Reference Range Interpretation [...] 2801) XR CHEST 1 VIEW PORTABLE / [id number] 17:21:29 [facility] : 1965 Sex: FAP portable chest x-ray.HISTORY: Status post left thoracentesis.COMPARISON: Prior chest x-ray April.FINDINGS: The pleural fluid that was present on the left has markedlydiminished with the minimal amount of opacity at the right lung basepresently.No pneumothorax is seen.There is tiny fluid collection in the right pleural space and mildatelectasis at the right lung base. The heart size is normalIMPRESSION:Marked interval improvement in the appearance of the leftlung with reexpansion and diminishment of pleural effusion.Electronically Signed By: Gurdeep Pascal05/10/2023 17:23 CDTWorkstation Name: [id number] [id number] 14:43:50 [facility] PATIENCELEIDY CURTIS : 1965 Sex: F ADDENDUM #1 Ultrasound guided paracentesis.Clinical History: Ascites.Sedation: None. Website Developer: Lupe Corralistant: None. Estimated Blood Loss: < 1 cc.Specimen: 4400 cc of cloudy lupe fluid, samples sent [...] anesthesia was achieved with 2% lidocaine,a 5 Nicaraguan one-step catheter was advanced into the peritoneal cavityunder ultrasound guidance. After completion of drainage, the catheterwas removed. There was no evidence of complication. ORIGINAL REPORT Ultrasound guidedleft thoracentesis.Clinical History: Left pleural effusion.Modality: Ultrasound.Sedation: None. Website Developer: Lupe Youngt: None. Estimated Blood Loss: 1ccSpecimen: [...] Signed By: Deandre Retana05/10/2023 14:45 CDTWorkstation Name: [id number] FLUID CELL COUNT WITH [id number] 13:31:41 Test Item Value Reference Range Interpretation Comments APPEARANCE FLUID Purulent Clear A (BEAKER) (test code = 510) COLOR FLUID (BEAKER) [place] Colorless, Straw A (test code = 511) RBC FLUID (BEAKER) 88330 /cu mm See_Comment H [Automat ed message] [...] (test code The syst em which = 4603) generated this result transmit joanna reference range [...] = 2873) BODY FLUID CELL COUNT WITH [id number] 13:29:43 Test Item Value Reference Range Interpretation Comments APPEARANCE FLUID Cloudy Clear A (BEAKER) (test code = 510) COLOR FLUID (BEAKER) [place] Colorless, Straw A (test code = 511) RBC FLUID (BEAKER) 58734 /cu mm See_Comment H [Automat ed message] [...] Sterile Vial (BEAKER) (test code = 2873) [id number] 08:44:37 [facility] : 1965 Sex: FUltrasound guided left thoracentesis.Clinical History: Left pleural effusion.Modality: Ultrasound.Sedation: None. Website Developer: Lupe Corralistant: None. Estimated Blood Loss: 1ccSpecimen: [...] Signed By: Mikael Darnell05/10/2023 08:46 CDTWorkstation Name: [id number] CHEST FOR PULMONARY [id number] 06:33:25 [facility] : 1965 Sex: FTECHNIQUE: CTA of the chest WITH intravenous contrast. Axial MIP imageswere provided to better assess the vasculature. Coronal and sagittal MPRimages were performed. Dose modulation, iterative reconstruction, and/orweight-based adjustment of the mA/kV was utilized to reduce theradiation dose to as low as reasonably achievable.INDICATION: PE suspected, intermediate prob, positive D-dimerleft pleural effusion, s/p thoracentesis today. now SOB.COMPARISON: CT chest 01/20/2023.FINDINGS: LINES/TUBES: None.PULMONARY ARTERIES: Proximal to the bifurcation of the main pulmonaryartery, the main pulmonary artery is2.2 cm in diameter. No fillingdefects within the pulmonary arteries to suggest pulmonary embolus.HEART AND MEDIASTINUM: The visualized thyroid gland is normal. Nosignificant mediastinal, hilar, or axillary lymphadenopathy. The heartand pericardium are within normal limits.PLEURA: Moderate to large size left pleural effusion, slightly decreasedin size compared to [...] for acute pulmonary thromboembolic disease. No thoracicaortic aneurysmor dissection.2. Moderate to large size left pleural effusion, slightly decreased insize compared tothe prior examination. Small right pleural effusion,slightly increased. No pneumothorax.3. Nonspecific with a continuation of the pulmonary parenchyma which maybe related to with inflammatory changes or edema, similar to the priorexamination.4. 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 Moderate to large alignment of abdominal pelvic ascitessimilar to the prior examination.Electronically Signed By: Adilia Polanco05/10/2023 06:35 CDTWorkstation Name: [id number] GAS, VENOUS 2023-05-10 06:19:52 Test Item Value [...] code = 1819) 21.0 XR CHEST 2 [id number] 05:28:50 [facility] : 1965 Sex: FEXAM/TECHNIQUE: Single view frontal radiograph of the chest.INDICATION: SHORTNESS OF BREATHABDOMINAL PAINPOST-OP PROBLEMCOMPARISON: 05/09/23FINDINGS: Devices/Objects: None.Lungs: Small left pleural effusion.No visible pneumothorax.Heart/Mediastinum: No cardiomegaly. No interstitial thickening.Osseous: No acute osseous process. No suspicious osseous lesion.Upper abdomen: Unremarkable.IMPRESSION:Small left pleural effusion. No visible pneumothorax.Electronically Signed By: Umer Barahona05/10/2023 05:31 CDT Workstation Name: [id number] SENSITIVITY TROPONIN [id number] 04:15:18 Test Item Value Reference Range Interpretation Comments HIGH SENSITIVITY 36 pg/ml See_Comment H [Automated message] TROPONIN I (test code = The system which [id number]) generated this result transmitted ref erence range: <=17. Th e reference range was not used to int erpret this result as normal/abnormal . Belt Repairer ID - ADMINThe ELECTRODYNAMICIST STAT High Sensitivity Troponin-I results should be used in conjunction with other diagnostic information such as ECG, clinical observations and information, and patientsymptoms to aid in the diagnosis of CT. SARS-COV2/INFLUENZA/RSV [id number] 04:12:44 Test Item Value Reference Range Interpretation Comments SARS-COV2/RT-PCR Negative Negative The SARS-Co V-2 target (test code = nucleic acids a re not 0433377) detected in thi s specimen. Negat krupa [...] individuals eleazar pected of COVID-19 by the Movity ider. INFLUENZA A RT-PCR Negative Negative The Flu A target nucleic (test code = acids are not d etected in 19101016) this specimen. INFLUENZA B RT-PCR Negative Negative The Flu B target nucleic (test code = acids are not d etected in 19101017) this specimen. RSV RT-PCR (test Negative Negative The RSV tar get nucleic code = 9366933) acids are no t detected in this [...] Xpress SARS-CoV-2/Flu/RSV by their healthcareprovider. [facility] Xpert Xpress SARS-CoV-2/Flu/RSV test should be [...] of the Act.Fact Sheet for Healthcare Providers:https ://www.[employer].Infotrieve/Documents/Xpert%20Xpress%20SARS%20CoV-2/Fact%20Sheets/302390 2%92TUQX-YRP-5%20HEALTHCARE%20PROVIDERS%20FACT%20SHEET.pdfFact Sheet for Healthcare Patients:https://www.[employer].Infotrieve/Docum ents/Xpert%20Xpress%20SARS%20Cov-2/Fact%20Sheets/3023801%91OWNL-QGD-6%20PATIENT %20FACT%20SHEET.dgyG-[id number] 04:07:35 Test Item Value Reference Range Interpretation [...] thrombosis is within 95-100% range.HIGH SENSITIVITY TROPONIN [id number] 02:57:41 Test Item Value Reference Range Interpretation Comments HIGH SENSITIVITY 41 pg/ml See_Comment H [Automated message] TROPONIN I (test code = The system which [id number]) generated this result transmitted ref erence range: <=17. Th e reference range was not used to int erpret this result as normal/abnormal . Belt Repairer ID - ADMINThe ELECTRODYNAMICIST STAT High Sensitivity Troponin-I results should be used in conjunction with other diagnostic information such as ECG, clinical observations and information, and patientsymptoms to aid in the diagnosis of CT. B-TYPE NATRIURETIC FACTOR (BNP)2023-05-10 02:46:59 Test Item Value Reference Range Interpretation Comments B-TYPE NATRIURETIC PEPTIDE (BEAKER) 70 pg/mL 0-100 (test code = 700) Belt Repairer ID - [id number] 02:41:34 Test Item Value Reference Range Interpretation Comments LIPASE (BEAKER) (test code = 749) 73 U/L 8-78 Belt Repairer ID - ADMINSpecimen slightly ictericBASIC METABOLIC [id number] 02:41:29 Test Item Value Reference Range Interpretation [...] not appl icable for dialysis patien ts Belt Repairer ID - ADMINSpecimen slightly ictericPT/[id number] 02:34:11 Test Item Value Reference Range Interpretation [...] mechanical heart valves.CBC W/PLT COUNT & AUTO [id number] 02:26:29 Test Item Value Reference Range Interpretation [...] PERCENT (BEAKER) (test code = 2801) URINALYSIS [id number] 02:25:17 Test Item Value Reference Range Interpretation Comments RBC UA (BEAKER) (test code = 519) 15 /HPF WBC UA (BEAKER) (test code = 520) 6 /HPF BACTERIA (BEAKER) (test code = Many 517) MUCUS (BEAKER) (test code = 1574) Occasional SQUAMOUS EPITHELIAL (BEAKER) (test 1 /HPF code = 516) Belt Repairer ID - techURINALYSIS WITH MICROSCOPIC IF [id number] 01:56:33 Test Item Value Reference Range Interpretation [...] = 463) SOURCE(BEAKER) (test code = 2795) Belt Repairer ID - [auto][id number]-[id number] 13:34:41 Test Item Value Reference Range Interpretation Comments ACTIVATED CLOTTING TIME 149 sec : 74 -137 seconds, (BEAKER) (test code = Baseli ne: TESTED AT 441) [facility] [address] [facility], [facility] 30: Belt Repairer/Techni shavon ID = [id number] for CO NROD ELFEGO (V), [place] BODY FLUID CELL COUNT WITH [id number] 12:47:39 Test Item Value Reference Range Interpretation Comments APPEARANCE FLUID Cloudy Clear A (BEAKER) (test code = 510) COLOR FLUID (BEAKER) Other Colorless, Straw A phuc mon (test code = 511) RBC FLUID (BEAKER) 28350 /cu mm See_Comment H [Automat ed message] [...] 2873) XR CHEST 1 VIEW PORTABLE / [id number] 10:01:38 [facility] : 1965 Sex: FEXAMINATION: [...] pneumonia or airspace edema.Electronically Signed By: Alexandro Ryang005/09/2023 10:03 CDTWorkstation Name: [id number] METABOLIC [id number] 09:06:30 Test Item Value Reference Range Interpretation [...] not appl icable for dialysis patien ts Belt Repairer ID - MARCOPROTHROMBIN TIME/[id number] 08:31:43 Test Item Value Reference Range Interpretation Comments PROTIME (BEAKER) 18.8 seconds 11.9-14.2 H (test code = 759) INR (BEAKER) (test 1.62 See_Comment [Automat ed message] code = 370) The system [employer] generated this result transmitted ref erence range: [...] /100 WBC 0-0 (test code = 413) [id number] 16:48:00 [facility] : 1965 Sex: FUltrasound guided paracentesis.Clinical History: Ascites.Sedation: None. Website Developer: Ellis Lylesistant: None. Estimated Blood Loss: < [...] anesthesia was achieved with 2% lidocaine,a 5 Nicaraguan one-step catheter was advanced into the peritoneal cavityunder ultrasound guidance. After completion of drainage, the catheterwas removed. There was no evidence of complication.IMPRESSION:Impression:Successful ultrasound guided paracentesis.Electronically Signed By: Dipak Szymanski05/06/2023 16:50 CDTWorkstation Name: [id number] [id number] 16:47:55 [facility] : 1965 Sex: FUltrasound guided left thoracentesis.Clinical History: Left pleural effusion.Modality: Ultrasound.Sedation: None. Website Developer: Hannah Lylest: None. Estimated Blood Loss: 1ccSpecimen: [...] area wasanesthetized with 2% lidocaine, a 4 Nicaraguan one-step catheter wasadvanced into the pleural space under ultrasound guidance. Aftercompletion of drainage, the catheter was removed. There was no evidenceof immediate complication. Post procedure chest x-ray demonstrated nopneumothorax. IMPRESSION:Impression:Successful and uncomplicated ultrasound guided left t horacentesis.Electronically Signed By: Dipak Szymanski05/06/2023 16:49 CDTWorkstation Name: [id number] W/ [id number] 16:11:06 Test Item Value Reference Range Interpretation [...] (test code Urine, Clean Catch = 2795) Belt Repairer ID - [auto]Belt Repairer ID - techBODY FLUID CELL COUNT WITH DIFFERENTIAL 2023-05-06 15:51:55 Test Item Value Reference Range Interpretation Comments APPEARANCE FLUID Cloudy Clear A (BEAKER) (test code = 510) COLOR FLUID (BEAKER) [place] Colorless, Straw A (test code = 511) RBC FLUID (BEAKER) 12568 /cu mm See_Comment H [Automat ed message] [...] FLUID EDTA Tube (BEAKER) (test code = 8613) BODY FLUID CELL COUNT WITH [id number] 15:31:24 Test Item Value Reference Range Interpretation Comments APPEARANCE FLUID Cloudy Clear A (BEAKER) (test code = 510) COLOR FLUID (BEAKER) [place] Colorless, Straw A (test code = 511) RBC FLUID (BEAKER) 44164 /cu mm See_Comment H [Automat ed message] [...] 2873) LIPEMICXR CHEST 1 VIEW PORTABLE / [id number] 14:46:25 [facility] : 1965 Sex: [...] Signed By: Mikael Darnell05/06/2023 14:48 CDTWorkstation Name: [id number]-[id number] 11:44:29 Test Item Value Reference Range Interpretation Comments POC-CREATININ 1.3 mg/dL 0.6-1.3 : TESTED AT [facility] [address]) [facility], [address]: (test code = Belt Repairer/Techni shavon ID = [id number]) [id number] for Host Cris Armendariz POC-EGFR 47 Interpretation of eGFR ([facility]) mL/min/1.73M2 Values Stage D escription (test [...] not appl icable for dialysis patien ts US [id number] 17:20:29 [facility] : 1965 Sex: FUltrasound guided left-sided thoracentesis.Clinical History: Left pleural effusion.Modality: Ultrasound.Sedation: None. Website Developer: Ellis Lylesistant: None. Estimated Blood Loss: 1ccSpecimen: [...] area wasanesthetized with 2% lidocaine, a 4 Nicaraguan one-step catheter wasadvanced into the pleural space under ultrasound guidance. Aftercompletion of drainage, the catheter was removed. There was no evidenceof immediate complication. Post procedure chest x-ray demonstrated nopneumothorax. IMPRESSION:Impression:Successful and uncomplicated ultrasound guided left-sided thoracentesis.Electronically Signed By: Chano Bloom05/02/2023 17:22 CDTWorkstation Name: [id number] FLUID CELL COUNT WITH [id number] 11:52:49 Test Item Value Reference Range Interpretation Comments APPEARANCE FLUID Bloody Clear A (BEAKER) (test code = 510) COLOR FLUID [place] Colorless, Straw A (BEAKER) (test code = 511) RBC FLUID (BEAKER) 99291 /cu mm See_Comment H [Automat ed (test [...] 2873) XR CHEST 1 VIEW PORTABLE / [id number] 11:00:46 [facility] : 1965 [...] Signed By: Ken Sauer05/02/2023 11:02 CDTWorkstation Name: [id number] [id number] 09:23:26 [facility] : 1965 Sex: FUltrasound guided left-sided thoracentesis.Clinical History: Left pleural effusion.Modality: Ultrasound.Sedation: None. Website Developer: Ellis Lylesistant: None. Estimated Blood Loss: 1ccSpecimen: [...] area wasanesthetized with 2% lidocaine, a 4 Nicaraguan one-step catheter wasadvanced into the pleural space under ultrasound guidance. Aftercompletion of drainage, the catheter was removed. There was no evidenceof immediate complication. Post procedure chest x-ray demonstrated nopneumothorax. IMPRESSION:Impression:Successful and uncomplicated ultrasound guidedleft-sided thoracentesis.Electronically Signed By: Chano Enriquez05/02/2023 09:25 CDTWorkstation Name: [id number] FLUID CELL COUNT WITH [id number] 14:29:09 Test Item Value Reference Range Interpretation Comments APPEARANCE FLUID Bloody Clear A (BEAKER) (test code = 510) COLOR FLUID [place] Colorless, Straw A (BEAKER) (test code = 511) RBC FLUID (BEAKER) 55852 /cu mm See_Comment H [Automat ed (test code = 513) message] T he system which generated this result transmit joanna reference range : <=1. The refere nce range was not u sed to interpret th is result as normal/abnormal . TOTAL NUCLEATED 658 /cu mm See_Comment H [Automated CELL COUNT (BEAKER) message] The (test code = 1442) system [facility] generated this result transmit joanna reference range : <=5. The refere nce range was not u sed to interpret th is result as normal/abnormal . ADJUSTED WBC FLUID 658 /cu mm See_Comment H [Automat ed (BEAKER) (test code message] The = 1694) system which generated this result transmit joanna reference range : <=5. The refere nce range was not u sed to interpret th is result as normal/abnormal . LINING 0 /cu mm See_Comment [Automated CELLS/OTHERS, message] The CALCULATED (BEAKER) system w [facility] (test code = 1590) generated this result [...] Container FLUID (BEAKER) (test code = 2873) [place] [id number] 13:34:38 [facility] : 1965 Sex: FUltrasound guided left thoracentesis.Clinical History: Left pleural effusion.Modality: Ultrasound.Sedation: None. Website Developer: Danuta Corralistant: None. Estimated Blood Loss: 1ccSpecimen: [...] Signed By: Lee Diaz04/29/2023 13:36 CDTWorkstation Name: [id number] CHEST 1 VIEW PORTABLE / [id number] 12:16:25[facility] : 1965 Sex: FCLINICAL HISTORY: s/p left thoraTECHNIQUE: 1 view of the chestCOMPARISON: 04/25/2023IMPRESSION:No pneumothorax. There are no focal infiltrates or pleural effusions.The cardiomediastinal silhouette is within normal limits for size. Thevisualized bones are intact.Electronically Signed By: Antwan Flor04/29/2023 12:18 CDTWorkstation Name: [id number] MYOCARDIAL PERFUSION SPECT, [id number] 12:04:56[facility] : 1965 Sex: FPROCEDURE: MYOCARDIAL PERFUSION SPECT IMAGING (2-Day Stress/Rest)CPT CODE: 55379HZQGZUTXVC: Preoperative risk stratification prior to livertransplantationCARDIOVASCULAR PROFILE: CAD History: None Symptoms: Dyspnea Risk Factors: Hypertension BMI: 35.4 Medications: Spironolactone, torsemideSTRESS PROTOCOL: Pharmacologic stress was achieved with a 10-second intravenousinfusion of regadenoson 0.4 mg. The radiopharmaceutical was fjudvdpldilq48 seconds after the start of the regadenoson infusion.IMAGING PROTOCOL: 30.3 mCi of Tc-99m sestamibi was injected intravenously at peakstress, and gated SPECT images were obtained. Then on a separate day,32.8 mCi of Tc-99m sestamibi was injected intravenously at rest, a ndnon-gated SPECT images were obtained.REST FINDINGS: HR: 83/min BP: 126/70 mmHg Prelim. EKG: Normalsinus rhythm. Perfusion: Normal. STRESS FINDINGS: HR: 95/min [...] prior study for comparison.Electronically Signed By: Marcos Iygqcz6404/27/2023 12:07 CDTWorkstation Name: [id number] [id number] 16:01:20 [facility] : 1965 Sex: FUltrasound guided left thoracentesis.Clinical History: Left pleural effusion.Modality: Ultrasound.Sedation: None. Website Developer: Danuta VERONICACAssistant: None. Estimated Blood Loss: 1ccSpecimen: 2100 cc [...] Signed By: Ken Sauer04/25/2023 16:03 CDTWorkstation Name: [id number] FLUID CELL COUNT WITH [id number] 14:01:40 Test Item Value Reference Range Interpretation Comments APPEARANCE FLUID Turbid Clear A (BEAKER) (test code = 510) COLOR FLUID (BEAKER) [place] Colorless, Straw A (test code = 511) RBC FLUID (BEAKER) 90666 /cu mm See_Comment H [Automat ed message] [...] 2873) XR CHEST 1 VIEW PORTABLE / [id number] 11:23:22 [facility] : 1965 Sex: FCLINICAL HISTORY: s/p left thora TECHNIQUE: 1 view of the chest.COMPARISON: 04/22/2023IMPRESSION:No pneumothorax. No infiltrates or effusions. No cardiomegaly.Electronically Signed By: Antwan Flor1:25 CDTWorkstation Name: [id number] FLUID CELL COUNT WITH [id number] 17:21:04 Test Item Value Reference Range Interpretation Comments APPEARANCE FLUID Cloudy Clear A (BEAKER) (test code = 510) COLOR FLUID (BEAKER) [place] Colorless, Straw A (test code = 511) [...] (test code = The sy stem which 5511) generated this result transmitted ref erence range: [...] (test code = 2873) 1:20 manual dilutionUS [id number] 16:50:37 [facility] : 1965 Sex: FUltrasound guided left sided thoracentesis.Clinical History: Left pleural effusion.Modality: Ultrasound.Sedation: None. Website Developer: Ellis Munozistant: None. Estimated Blood Loss: 1ccSpecimen: [...] Signed By: Deandre Retana04/22/2023 16:52 CDTWorkstation Name: [id number] [id number] 16:50:37 [facility] : 1965 Sex: FUltrasound guided paracentesis.Clinical History: Ascites.Sedation: None. Website Developer: Ellis Munozistant: None. Estimated Blood Loss: < [...] anesthesia was achieved with 2% lidocaine,a 5 Nicaraguan one- step catheter was advanced into the peritoneal cavityunder ultrasound guidance. After completion of drainage, the catheterwas removed. There was no evidence of complication.IMPRESSION:Impression:Successful ultrasound guided paracentesis.Electronically Signed By: Deandre Retnaa04/22/2023 16:52 CDTWorkstation Name: [id number] CHEST 1 VIEW PORTABLE / [id number] 15:06:10 [facility] : 1965 Sex: FINDICATION: s/p left thoracentesisCOMPARISON: 04/18/2023TECHNIQUE: Single frontal view of the chest.FINDINGS: Lines, tubes, and devices: None.Lungs and pleura: Clear lungs. No pneumothorax.Heart and mediastinum: Normal heart size. Unremarkable mediastinalcontours.Osseous structures: No acute abnormality. Mild spondylosis and facetarthropathy are present within the spine.Other: None.IMPRESSION:No pneumothorax identified.Electronically Signed By: Brian Gresham04/22/2023 15:08 CDTWorkstation Name: [id number] FLUID CELL COUNT WITH [id number] 14:11:50 Test Item Value Reference Range Interpretation Comments APPEARANCE FLUID Turbid Clear A (BEAKER) (test code = 510) COLOR FLUID (BEAKER) Red Colorless, Straw A (test code = 511) RBC FLUID (BEAKER) 39596 /cu mm See_Comment H [Automat ed message] [...] EDTA Tube (BEAKER) (test code = 2873) [id number] 12:02:19 Test Item Value Reference Range Interpretation Comments POC-CREATININ 1.4 mg/dL 0.6-1.3 H : TESTED AT [address] (BEAKER) [facility], [address]: (test code = Belt Repairer/Techni shavon ID = [id number]) [id number] for Fall er, [place] POC-EGFR 43 Interpretation of eGFR (BEAKER) mL/min/1.73M2 [...] not appl icable for dialysis patien ts [id number] 17:12:11 [facility] : 1965 Sex: FUltrasound guided left-sided thoracentesis.Clinical History: Left pleural effusion.Modality: Ultrasound.Sedation: None. Website Developer: JEREMÍAS LylesCAssistant: None. Estimated Blood Loss: 1ccSpecimen: [...] area wasanesthetized with 2% lidocaine, a 4 Nicaraguan one-step catheter wasadvanced into the pleural space under ultrasound guidance. Aftercompletion of drainage, the catheter was removed. There was no evidenceof immediate complication. Post procedure chest x-ray demonstrated nopneumothorax. IMPRESSION:Impression:Successful and uncomplicated ultrasound guided left sided thoracentesis.Electronically Signed By: Mikael Darnell04/18/2023 17:14 CDTWorkstation Name: [id number] FUNCTION [id number] 17:07:40 Test Item Value Reference Range Interpretation [...] Specimen slightly (test code = 347) hemolyzed Belt Repairer ID - AAHAMIDSpecimen slightly ictericXR CHEST 1 VIEW PORTABLE / BEDSIDE 2023-04-18 16:09:37 [facility] : 1965 Sex: [...] Signed By: Adilia Polanco04/18/2023 16:11 CDTWorkstation Name: [id number] CHEST 1 VIEW PORTABLE / [id number] 10:43:57[facility] : 1965 Sex: [...] Signed By: Brian Gresham04/18/2023 10:46 CDTWorkstation Name: [id number] METABOLIC [id number] 10:31:06 Test Item Value Reference Range Interpretation [...] not appl icable for dialysis patien ts Belt Repairer ID - AAHAMIDPROTHROMBIN TIME/[id number] 10:26:19 Test Item Value Reference Range Interpretation Comments PROTIME (BEAKER) 18.8 seconds 11.9-14.2 H (test code = 759) INR (BEAKER) (test 1.68 See_Comment [Automat ed message] code = 370) The system [employer] generated this result transmitted ref erence range: <=5.90. The reference range was not used to int erpret this result as normal/abnormal . RECOMMENDED COUMADIN/WARFARIN INR THERAPY RANGESSTANDARD DOSE: 2.0 - 3.0 Includes: PROPHYLAXIS for venous thrombosis, systemic embolization; TREATMENT for venous thrombosis and/or pulmonary embolus.HIGH RISK: Target INR is 2.5-3.5 for patients with mechanical heart valves.CBC W/PLT COUNT & AUTO [id number] 10:19:31 Test Item Value Reference Range Interpretation [...] 0.00-1.00 PERCENT (BEAKER) (test code = 2801) [id number] 17:38:57 Test Item Value Reference Range Interpretation [...] not appl icable for dialysis patien ts Belt Repairer ID - ADMINSARS-COV2/RT-PCR ([facility])2023-04-16 16:56:23 Test Item Value Reference Range Interpretation Comments SARS-COV2/RT-PCR Negative Negative The SARS-Co V-2 target (test code = nucleic acids a re not [id number]) detected in thi s specimen. Negative result [...] revoked sooner. Fact Sheet for Healthcare Providers: https://www.[employer] m/Documents/Xpert%20Xpress%20SARS%20CoV-2/Fact%20Sheets/3023802%60QYFT-WIM-2%20 HEALTHCARE%20PROVIDERS%20FACT%20SHEET.pdf Fact Sheet for Healthcare Patients: https://www.[employer]/Documents/Xpert%20Xp ress%20SARS%20CoV-2/Fact%20Sheets/3023801%41WHEP-PKZ-1%20PATIENT%20FACT%20SHEET .pdfCOMPREHENSIVE METABOLIC [id number] 15:37:16 Test Item Value Reference Range Interpretation [...] not appl icable for dialysis patien ts Belt Repairer ID - ADMINLACTIC ACID, [id number] 15:31:59 Test Item Value Reference Range Interpretation Comments LACTATE BLOOD VENOUS 1.53 mmol/L 0.50-2.00 Specime n moderately (2) (BEAKER) (test hemolyzed code = 2872) Belt Repairer ID - ADMINCOMPREHENSIVE METABOLIC [id number] 14:06:53 Test Item Value Reference Range Interpretation [...] not appl icable for dialysis patien ts Belt Repairer ID - ADMINHIGH SENSITIVITY TROPONIN [id number] 14:02:29 Test Item Value Reference Range Interpretation Comments HIGH SENSITIVITY < pg/ml See_Comment [Automated message] TROPONIN I (test code = The system which [id number]) generated this result transmitted ref erence range: <=17. Th e reference range was not used to interpr et this result as normal/abnormal . Belt Repairer ID - ADMINThe ELECTRODYNAMICIST STAT High Sensitivity Troponin-I results should be used in conjunction with other diagnostic information such as ECG, clinical observations and information, and patientsymptoms to aid in the diagnosis of CT. [id number] 13:56:30 Test Item Value Reference Range Interpretation Comments MAGNESIUM (BEAKER) 2.0 mg/dL 1.6-2.6 Specimen markedly (test code = 627) hemolyzed Belt Repairer ID - ADMINCREATINE KINASE (CK)2023-04-16 13:56:30 Test Item Value Reference Range Interpretation Comments CREATINE KINASE TOTAL (BEAKER) (test 162 U/L 29-200 code = 380) Belt Repairer ID - ADMINPT/CQUY7396-61-25 13:54:09 Test Item Value Reference Range Interpretation [...] for patients with mechanical heart valves.BLOOD GAS, [id number] 13:52:31 Test Item Value Reference Range Interpretation [...] (test code = 1819) 21.0 LACTIC ACID, [id number] 13:49:46 Test Item Value Reference Range Interpretation Comments LACTATE BLOOD VENOUS 2.67 mmol/L 0.50-2.00 H Specime n markedly (2) (BEAKER) (test hemolyzed code = 2872) Belt Repairer ID - ADMINCBC W/PLT COUNT & AUTO [id number] 13:41:46 Test Item Value Reference Range Interpretation [...] (test code = 2801) XR CHEST 2 [id number] 13:11:49 [facility] : 1965 Sex: FHISTORY: Left pleural effusion, shortness of breathCOMPARISON: 04/15/2023FINDINGS: Small left pleural effusion. No pneumothorax. No right pleuraleffusion. Lungs clear.The heart shadow is normal in size. The thoracic aorta is mildlytortuous.Electronically Signed By: Dipak White04/16/2023 13:13 CDTWorkstation Name: [id number] FLUID CELL COUNT WITH [id number] 14:20:03 Test Item Value Reference Range Interpretation Comments APPEARANCE FLUID Cloudy Clear A (BEAKER) (test code = 510) COLOR FLUID (BEAKER) [place] Colorless, Straw A (test code = 511) RBC FLUID (BEAKER) 92180 /cu mm See_Comment H [Automat ed message] [...] (test code The syst em which = 5103) generated this result transmit joanna reference range [...] 2873) XR CHEST 1 VIEW PORTABLE / [id number] 12:32:14 [facility] : 1965 Sex: FChest one view.Clinical history: s/p thoraComparison: April 11iscussion: A frontal chest is provided.Cardiomediastinal contours are unchanged. Mild pleural parenchymal opacity at the left lower thoraxis unchanged.There is no pneumothorax. Right lung is clear.No acute bony abnormality.Electronically S igned By: Manish [facility]04/15/2023 12:34 CDTWorkstation Name: [id number] FLUORO NON- SPECIFIC UP TO 1 [id number] 15:46:14 [facility] : 1965 Sex: FThisis a non- reportable study with no Radiologist dictation. Please refer to your PACS to review images,or Doc Flowsheets for documentation on studies without images.US [id number] 17:36:47 [facility] : 1965 Sex: FUltrasound guided left thoracentesis.Clinical History: Left pleural effusion.Modality: Ultrasound.Sedation: None. Website Developer: Ellis Lylesistant: None. Estimated Blood Loss: 1ccSpecimen: [...] Signed By: Dipak Szymanski04/11/2023 17:38 CDTWorkstation Name: [id number] FLUID CELL COUNT WITH [id number] 14:13:51 Test Item Value Reference Range Interpretation Comments APPEARANCE FLUID (BEAKER) (test Turbid Clear A code = 510) COLOR FLUID (BEAKER) (test code Red Colorless, Straw A = 511) RBC FLUID (BEAKER) (test code = 28220 /cu mm <=1 H 513) TOTAL NUCLEATED [...] 2873) XR CHEST 1 VIEW PORTABLE / [id number] 13:39:13 [facility] : 1965 Sex: FCLINICAL HISTORY: s/p thoracentesisTECHNIQUE: 1 view of the chestCOMPARISON: 04/08/2023IMPRESSION:No pneumothorax. Trace left pleural effusion again seen. No infiltrates.No cardiomegaly.Electronically SignedBy: Antwan Flor04/11/2023 13:41 CDTWorkstation Name: [id number] DEHYDROGENASE (LDH), BODY FLUID 2023-04-09 16:42:15 Test [...] recovery and/or detection times of some organisms.BLOOD [id number] 13:00:23 Test Item Value Reference Range Interpretation Comments CULTURE (BEAKER) (test No growth in 5 days code = 1095) The specimen volume collected for this blood culture was below the optimum (10 mL per bottle or 20 mL total). Use of lower volumes may adversely affect recovery and/or detection times of some organisms.BODY FLUID CELL COUNT WITH [id number] 19:24:03 Test Item Value Reference Range Interpretation Comments APPEARANCE FLUID (BEAKER) Slightly Bloody Clear A (test code = 510) COLOR FLUID (BEAKER) (test Straw Colorless, Straw code = 511) RBC FLUID (BEAKER) (test 40388 /cu mm <=1 H code = 513) [...] Vial (BEAKER) (test code = 2873) US [id number] 16:23:34 [facility] : 1965 Sex: FUltrasound guided left thoracentesis.Clinical History: Left pleural effusion.Modality: Ultrasound.Sedation: None. Website Developer: Ellis Lylesistant: None. Estimated Blood Loss: 1ccSpecimen: [...] Signed By: Deandre Retana04/08/2023 16:25 CDTWorkstation Name: [id number] CHEST 1 VIEW PORTABLE / [id number] 15:30:23 [facility] IBSI, PATIENCELEIDY CURTIS : 1965 Sex: FTECHNIQUE: Frontal view of the chest.INDICATION: s/p thoracentesis.COMPARISON: 04/04/2023.FINDINGS:LINES/TUBES: None.HEART AND MEDIASTINUM: Cardiomediastinal contour is stable. LUNGS: Mild left basilar atelectatic change. No consolidation orpulmonary edema.PLEURA: Small left pleural effusion. No pneumothorax.SOFT TISSUES AND BONES: Unremarkable.IMPRESSION:Small left pleural effusion with left basilar atelectatic change. Nopneumothorax.Electronically Signed By: Adilia Polanco04/08/2023 15:32 CDTWorkstation Name: [id number] CULTURE + SMEAR 2023-04-06 08:24:23 Test Item Value Reference Range Interpretation Comments CULTURE (BEAKER) (test No fungus isolated in code = 1095) 28 days FUNGUS SMEAR (BEAKER) No fungi seen (test code = 1406) CT ABDOMEN/PELVIS WITHOUT IV [id number] 16:41:18 [facility] EVER : 1965 Sex: FABDOMINAL AND PELVIS CT [...] Signed By: Erika Kan04/04/2023 16:43 CDTWorkstation Name: [id number] [id number] 14:20:01 [facility] : 1965 Sex: FUltrasound guided left thoracentesis.Clinical History: Left pleural effusion.Modality: Ultrasound.Sedation: None. Website Developer: Danuta Corralistant: None. Estimated Blood Loss: 1ccSpecimen: [...] Signed By: Mikael Darnell04/04/2023 14:22 CDTWorkstation Name: [id number] METABOLIC [id number] 12:43:52 Test Item Value Reference Range Interpretation [...] not appl icable for dialysis patien ts Belt Repairer ID - JSSpecimen slightly ictericLACTIC ACID, [id number] 12:36:49 Test Item Value Reference Range Interpretation Comments LACTATE BLOOD VENOUS (2) (BEAKER) 1.61 mmol/L 0.50-2.00 (test code = 2872) Belt Repairer ID - JSCBC W/PLT COUNT & AUTO [id number] 11:56:33 Test Item Value Reference Range Interpretation [...] (BEAKER) (test code = 2801) LACTIC ACID, [id number] 11:56:21 Test Item Value Reference Range Interpretation Comments LACTATE BLOOD VENOUS 2.81 mmol/L 0.50-2.00 H Specime n markedly (2) (BEAKER) (test hemolyzed code = 2872) Belt Repairer ID - ADMINXR CHEST 2 [id number] 11:54:24 [facility] : 1965 Sex: [...] Signed By: Deandre Retana04/04/2023 11:56 CDTWorkstation Name: [id number] 11:53:15 Test Item Value Reference Range Interpretation Comments PARTIAL THROMBOPLASTIN TIME 29.2 seconds 22.5-36.0 (BEAKER) (test code = 760) PROTHROMBIN TIME/[id number] 11:52:36 Test Item Value Reference Range Interpretation [...] Comments COLOR (BEAKER) (test code = 470) [place] CLARITY (BEAKER) (test code = 469) Clear [...] 4 /LPF 514) SOURCE(BEAKER) (test code = 3472) Belt Repairer ID - [auto]Belt Repairer ID - techBODY FLUID CELL COUNT WITH DIFFERENTIAL 2023-04-04 11:13:45 Test Item Value Reference Range Interpretation Comments APPEARANCE FLUID (BEAKER) (test Bloody Clear A code = 510) COLOR FLUID (BEAKER) (test code [place] Colorless, Straw A = 511) RBC FLUID (BEAKER) (test code = 20573 /cu mm <=1 H 513) TOTAL NUCLEATED [...] 2873) XR CHEST 1 VIEW PORTABLE / [id number] 09:58:29 [facility] EVER : 1965 Sex: FXR CHEST 1 VIEW PORTABLE / BEDSIDECLINICAL HISTORY: s/p left thora TECHNIQUE: Single view of the chest.COMPARISON: March 28, 2023IMPRESSION:Minimal left lung base opacities likely atelectasis or trace residualpleural effusion status post left thoracentesis. No pneumothorax. Thecardiomediastinal silhouette is magnified by technique. The osseousstructures appear stable.Electronically Signed By: Wilber Hylton04/04/2023 10:00 CDTWorkstation Name: [id number] CULTURE + [id number] 08:29:42 Test Item Value Reference Range Interpretation Comments CULTURE (BEAKER) (test No fungus isolated in code = 1095) 28 days FUNGUS SMEAR (BEAKER) No fungal elements seen (test code = 1406) US [id number] 09:24:25 [facility] : 1965 Sex: FUltrasound guided left-sided thoracentesis.Clinical History: Left pleural effusion.Modality: Ultrasound.Sedation: None. Website Developer: Ellis Munozistant: None. Estimated Blood Loss: 1ccSpecimen: [...] By: Lj Stevenson MD04/03/2023 09:26 CDTWorkstation Name: [id number] FLUID CELL COUNT WITH [id number] 17:23:22 Test Item Value Reference Range Interpretation Comments APPEARANCE FLUID (BEAKER) (test Cloudy Clear A code = 510) COLOR FLUID (BEAKER) (test code Brown Colorless, Straw A = 511) RBC FLUID (BEAKER) (test code = 46701 /cu mm <=1 H 513) TOTAL NUCLEATED [...] 2873) XR CHEST 1 VIEW PORTABLE / [id number] 15:03:35 [facility] EVER : 1965 Sex: FTECHNIQUE: Frontal view of the chest.INDICATION: s/p left thoracentesis.COMPARISON: 03/28/2023.FINDINGS:LINES/TUBES: None.HEART AND MEDIASTINUM: Cardiomediastinal contour is within normallimits. LUNGS: The lungs are well inflated and clear. No consolidation orpulmonary edema.PLEURA: No pneumothorax. No significant pleural effusion.SOFT TISSUES AND BONES: Unremarkable.IMPRESSION:No acute cardiopulmonary process. No pneumothorax status post leftthoracentesis.Electronically Signed By: Adilia Muñizzelman04/01/2023 15:05 CDTWorkstation Name: [id number] BRAIN WITHOUT IV [id number] 20:16:32 [facility] : 1965 Sex: [...] Signed By: Antwan Flor03/30/2023 20:18 CDTWorkstation Name: [id number] METABOLIC [id number] 18:35:39 Test Item Value Reference Range Interpretation [...] not appl icable for dialysis patien ts Belt Repairer ID - BSSpecimen slightly ictericHEPATIC FUNCTION [id number] 18:35:39 Test Item Value Reference Range Interpretation [...] Specimen slightly (test code = 347) hemolyzed Belt Repairer ID - BSSpecimen slightly ictericPT/[id number] 18:34:42 Test Item Value Reference Range Interpretation [...] mechanical heart valves.CBC W/PLT COUNT & AUTO [id number] 18:18:57 Test Item Value Reference Range Interpretation [...] PERCENT (BEAKER) (test code = 2801) US [id number] 15:05:38 [facility] : 1965 Sex: FUltrasound guided left thoracentesis.Clinical History: Left pleural effusion.Modality: Ultrasound.Sedation: None. Website Developer: Hannah Lylest: None. Estimated Blood Loss: 1ccSpecimen: [...] Signed By: Lee Diaz03/30/2023 15:07 CDTWorkstation Name: [id number] [id number] 13:01:27 Test Item Value Reference Range Interpretation Comments POC-GLUCOSE METER 91 mg/dL 70-110 : [facility] [address] [facility] (test code = [place], 1538) [address]: Belt Repairer/Techni shavon ID = [id number] for Tamika Briggs US [id number] 08:35:26 [facility] : 1965 Sex: FUltrasound guided left thoracentesis.Clinical History: Left pleural effusion.Modality: Ultrasound.Sedation: None. Website Developer: Lida Lyles: None. Estimated Blood Loss: 1ccSpecimen: 1700 cc [...] By: Lj Stevenson MD03/29/2023 08:37 CDTWorkstation Name: [id number] FLUID CELL COUNT WITH [id number] 12:50:33 Test Item Value Reference Range Interpretation Comments APPEARANCE FLUID (BEAKER) (test Bloody Clear A code = 510) COLOR FLUID (BEAKER) (test code [place] Colorless, Straw A = 511) RBC FLUID (BEAKER) (test code = 01123 /cu mm <=1 H 513) TOTAL NUCLEATED [...] 2873) XR CHEST 1 VIEW PORTABLE / [id number] 10:49:57 [facility] : 1965 Sex: FINDICATION: s/p thoracentesisCOMPARISON: 03/25/2023TECHNIQUE: Single frontal view of the chest.FINDINGS: Lungs and pleura: No pneumothorax status post thoracentesis. Noeffusion.Heart and mediastinum: Normal heart size. Unremarkable mediastinalcontours.Osseous structures: No acute abnormality.Other: None.IMPR ESSION:No pneumothorax status post thoracentesis. No effusion.Electronically Signed By: Estrella Walters03/28/2023 10:51 CDTWorkstation Name: [id number] FLUID CELL COUNT WITH [id number] 18:08:53 Test Item Value Reference Range Interpretation Comments APPEARANCE FLUID (BEAKER) Moderately Bloody Clear A (test code = 510) COLOR FLUID (BEAKER) (test Yellow Colorless, Straw A code = 511) RBC FLUID (BEAKER) (test 98898 /cu mm <=1 H code = 513) [...] 2873) XR CHEST 1 VIEW PORTABLE / [id number] 15:24:56 [facility] : 1965 Sex: FXR CHEST 1 VIEW PORTABLE / BEDSIDETECHNIQUE: Frontal view(s) of the chest.INDICATION: s/p thoracentesiss/p thoracentesisCOMPARISON: 03/21/2023FINDINGS/IMPRESSION:Lines/Tubes: NoneLungs/pleura: Low lung volumes. Mild interstitial airspace opacities,likely mild edema. No pleural effusion. No pneumothorax.Heart and Mediastinum: Unchanged.Soft Tissues and Bones: Unchanged.Electronically Signed By: Carolyn Block03/25/2023 15:26 CDTWorkstation Name: [id number] 19:00:19 Test Item Value Reference Range Interpretation Comments CULTURE (BEAKER) (test No growth in 5 days code = 1095) The specimen volume collected for this blood culture was below the optimum (10 mL per bottle or 20 mL total). Use of lower volumes may adversely affect recovery and/or detection times of some organisms.BLOOD [id number] 18:00:08 Test Item Value Reference Range Interpretation [...] No fungi seen (test code = 1406) [id number] 07:48:55 [facility] : 1965 Sex: FUltrasound guided left thoracentesis.Clinical History: Left pleural effusion.Modality: Ultrasound.Sedation: None. Website Developer: Lida Lyles: None. Estimated Blood Loss: 1ccSpecimen: 1600 cc [...] By: Lj Stevenson MD03/22/2023 07:50 CDTWorkstation Name: [id number] CHEST 1 VIEW PORTABLE / [id number] 06:19:15[facility] : 1965 Sex: FXR CHEST 1 VIEW PORTABLE / BEDSIDEINDICATION: s/p thoracentesisCOMPARISON: 03/14/2023FINDINGS: Portable frontal view of the chest. IMPRESSION:Support Lines: None Lungs and pleura: No focal lung consolidation or large pleural effusion.No pneumothorax.Heart and mediastinum: Stable contours. Additional findings: Stable osseous structures.Electronically Signed By: Wilber Hylton03/22/2023 06:21 CDTWorkstation Name: [id number] LAB [id number] 09:58:21 Test Item Value Reference Range Interpretation Comments SCAN RESULT (test code = See scanned report. [id number]) HEPATIC FUNCTION [id number] 05:11:09 Test Item Value Reference Range Interpretation [...] (test code = 29 U/L 6-55 347) Belt Repairer ID - EOOSpecimen slightly ictericBASIC METABOLIC [id number] 05:11:08 Test Item Value Reference Range Interpretation [...] not appl icable for dialysis patien ts Belt Repairer ID - EOOSpecimen slightly ictericPROTHROMBIN TIME/[id number] 04:50:46 Test Item Value Reference Range Interpretation Comments PROTIME (BEAKER) (test code = 18.5 seconds 11.9-14.2 H 759) INR (BEAKER) (test code = 370) 1.58 <=5.90 RECOMMENDED COUMADIN/WARFARIN INR THERAPY RANGESSTANDARD DOSE: 2.0 - 3.0 Includes: PROPHYLAXIS for venous thrombosis, systemic embolization; TREATMENT for venous thrombosis and/or pulmonary embolus.HIGH RISK: Target INR is 2.5-3.5 for patients with mechanical heart valves.BASIC METABOLIC [id number] 10:32:34 Test Item Value Reference Range Interpretation [...] not appl icable for dialysis patien ts Belt Repairer ID - MARCOSpecimen slightly ictericBASIC METABOLIC [id number] 06:02:43 Test Item Value Reference Range Interpretation [...] not appl icable for dialysis patien ts Belt Repairer ID - Selina slightly ictericHEPATIC FUNCTION [id number] 06:02:43 Test Item Value Reference Range Interpretation [...] (test code = 25 U/L 6-55 347) Belt Repairer ID - Selina slightly ictericPROTHROMBIN TIME/[id number] 05:41:15 Test Item Value Reference Range Interpretation Comments PROTIME (BEAKER) (test code = 19.4 seconds 11.9-14.2 H 759) INR (BEAKER) (test code = 370) 1.75 <=5.90 RECOMMENDED COUMADIN/WARFARIN INR THERAPY RANGESSTANDARD DOSE: 2.0 - 3.0 Includes: PROPHYLAXIS for venous thrombosis, systemic embolization; TREATMENT for venous thrombosis and/or pulmonary embolus.HIGH RISK: Target INR is 2.5-3.5 for patients with mechanical heart valves.URINALYSIS W/ [id number] 12:02:58 Test Item Value Reference Range Interpretation [...] (test code Urine, Clean Catch = 2795) Belt Repairer ID - [auto]Belt Repairer ID - techMRA HEAD WITHOUT IV [id number] 09:07:21[facility] : 1965 Sex: [...] system: Normal flow-related enhancement within the bilateral P9hjvnjiof and the basilar artery Posterior cerebral arteries: Normal flow-related enhancement within thebilateral AIR PUR[employer]IER SERVICER P1-P2 segments Additional findings: None. IMPRESSION:No acute ischemia or parenchymal hemorrhage.No flow limiting stenosis in the major branch vessels of thecranialcirculation. Electronically Signed By: Estrella Walters03/19/2023 09:09 CDTWorkstation Name: [id number] BRAIN WITHOUT IV [id number] 09:07:21 [facility] : 1965 Sex: [...] system: Normal flow-related enhancement within the bilateral P7flxtinhw and the basilar artery Posterior cerebral arteries: Normal flow-related enhancement within thebilateral AIR PURIFIER SERVICER P1-P2 segments Additional findings: None. IMPRESSION:No acute ischemia or parenchymal hemorrhage.No flow limiting stenosis in the major branch vessels of thecranialcirculation. Electronically Signed By: Estrella Walters03/19/2023 09:09 CDTWorkstation Name: [id number] [id number] 08:38:22[facility] : 1965 Sex: FRight [...] By: Aravind Neal MD03/19/2023 08:40 CDTWorkstation Name: [id number] ABDOMEN [id number] 08:38:22 [facility] : 1965 Sex: FRight Upper [...] By: Aravind Neal MD03/19/2023 08:40 CDTWorkstation Name: [id number] W/PLT COUNT & AUTO DIFFERENTIAL 2023-03-19 07:44:16 [...] (BEAKER) (test code = 2801) COMPREHENSIVE METABOLIC [id number] 07:42:52 Test Item Value Reference Range Interpretation [...] not appl icable for dialysis patien ts Belt Repairer ID - [id number] 07:40:36 Test Item Value Reference Range Interpretation Comments PHOSPHORUS (BEAKER) (test code = 4.3 mg/dL 2.3-4.7 604) Belt Repairer ID - [id number] 07:40:35 Test Item Value Reference Range Interpretation Comments MAGNESIUM (BEAKER) (test code = 3.0 mg/dL 1.6-2.6 H 627) Belt Repairer ID - MIGUELOCALCIUM, [id number] 07:16:59 Test Item Value Reference Range Interpretation Comments CALCIUM IONIZED (BEAKER) (test 1.08 mmol/L 1.12-1.27 L code = 698) PH, BLOOD (BEAKER) (test code = 7.45 1810) VITAMIN [id number] 21:59:30 Test Item Value Reference Range Interpretation Comments VITAMIN B12 (BEAKER) (test code = 999 pg/mL 213-816 H 774) Belt Repairer ID - BSURINALYSIS W/ REFLEX URINE [id number] 18:23:30 Test Item Value Reference Range Interpretation [...] = 516) SOURCE(BEAKER) (test code = 2795) Belt Repairer ID - [auto]Belt Repairer ID - techBASIC METABOLIC [id number] 18:21:01 Test Item Value Reference Range Interpretation [...] not appl icable for dialysis patien ts Belt Repairer ID - BSSpecimen slightly ictericHEPATIC FUNCTION [id number] 18:21:01 Test Item Value Reference Range Interpretation [...] (test code = 36 U/L 6-55 347) Belt Repairer ID - BSSpecimen slightly ictericPROTEIN, RANDOM [id number] 18:19:35 Test Item Value Reference Range Interpretation Comments PROTEIN, URINE (BEAKER) (test code = 13 mg/dL 0-14 1569) Belt Repairer ID - ADMINSODIUM, RANDOM [id number] 18:19:35 Test Item Value Reference Range Interpretation Comments SODIUM URINE (BEAKER) (test code = 26 meq/L 243) Reference Range: No NormalsOperator ID - ADMINCREATININE, RANDOM [id number] 18:19:34 Test Item Value Reference Range Interpretation Comments CREATININE URINE (BEAKER) (test 117.0 mg/dL code = 375) Reference Range: No NormalsOperator ID - ADMINCALCIUM, [id number] 18:03:23 Test Item Value Reference Range Interpretation Comments CALCIUM IONIZED (BEAKER) (test 1.07 mmol/L 1.12-1.27 L code = 698) PH, BLOOD (BEAKER) (test code = 7.45 1810) [id number] 17:57:36 Test Item Value Reference Range Interpretation Comments MAGNESIUM (BEAKER) (test code = 2.1 mg/dL 1.6-2.6 627) Belt Repairer ID - ADMINMISCELLANEOUS LAB [id number] 14:06:38 Test Item Value Reference Range Interpretation Comments SCAN RESULT (test code = See scanned report. [id number]) BODY FLUID CELL COUNT WITH [id number] 11:50:04 Test Item Value Reference Range Interpretation Comments APPEARANCE FLUID Cloudy Clear A (BEAKER) (test code = 510) COLOR FLUID (BEAKER) [place] Colorless, Straw A (test code = 511) RBC FLUID (BEAKER) 78173 /cu mm <=1 H (test code = [...] for (BEAKER) (test code = malignancy 2619) [id number] Shaneka Saab M.D. (BEAKER) (test code = (electronic 2620) signature) CONTAINER BODY FLUID Sterile Cup (BEAKER) (test code = 2873) T SPOT [id number] 15:08:38 Test Item Value Reference Range Interpretation [...] = 1687) SCAN RESULT (test code = 2243763) XR CHEST 1 VIEW PORTABLE / [id number] 14:45:36 [facility] : 1965 Sex: FChest AP portable semierectComparison exam: 03/11/2023History provided: Status post thoracentesisPleural fluid has been evacuated on the left. No pneumothorax evident.Heart size normal and lungs are clear.Electronically Signed By: Mp Baltazar 14:47 CDTWorkstation Name: IBIDRZ5DQ [id number] 14:36:40[facility] : 1965 Sex: FULTRASOUND [...] Signed By: Mp Baltazar 14:56 CDTWorkstation Name: RUKAVP1CBPC FLUID CELL COUNT WITH [id number] 18:15:17 Test Item Value Reference Range Interpretation Comments APPEARANCE FLUID Purulent Clear A (BEAKER) (test code = 510) COLOR FLUID (BEAKER) [place] Colorless, Straw A (test code = 511) RBC FLUID (BEAKER) 31546 /cu mm <=1 H (test code = [...] code = count. Negative for 2619) malignancy [id number] Shaneka Saab M.D. (BEAKER) (test code = (electronic 2620) signature) CONTAINER BODY FLUID EDTA Tube (BEAKER) (test code = 2873) XR CHEST 1 VIEW PORTABLE / [id number] 12:19:07 [facility] : 1965 Sex: FXR CHEST 1 VIEW PORTABLE / BEDSIDETECHNIQUE: Frontal view(s) of the chest.INDICATION: Post thoracentesisPost thoracentesisCOMPARISON: 03/09/2023FINDINGS/IMPRESSION:Lines/Tubes: NoneLungs/pleura: Low lung volumes. Bibasilar atelectasis. No pleuraleffusion. No pneumothorax, status post left pleural thoracentesis.Heart and Mediastinum: Unremarkable.Soft Tissues and Bones: Unremarkable.Electronically Signed By: Carolyn Block03/11/2023 12:21 CDTWorkstation Name: DJGSTG1VO [id number] 12:16:12 [facility] : 1965 Sex: FPROCEDURE: Ultrasound-guided thoracentesisProcedural PersonnelAttending physician(s): Brayden Coe physician(s): NoneResident physician(s): NoneAdvaneast [facility] practice provider(s): NonePre-procedure diagnosis: Left pleural [...] (mL): Less than 10Standardized report: SIR_Thoracentesis_v3AttestationSigner name: OliviabibianaVerena Michelle attest that I was present for the entire procedure. I reviewed thestored images and agree with the report as written.Electronically Signed By: Carolyn Block03/11/2023 12:18 CDTWorkstation Name: [id number] ANTIBODY, [id number] 12:02:16 Test Item Value Reference Range Interpretation Comments RUBELLA IGG QUANTITATION (BEAKER) 39.0 IU/mL <8.0 H (test code = 572) Rubella IgG Result Interpretation: </= 7.0 IU/mL Negative - Presumed non- immune 8.0 - 9.9 IU/mL Equivocal >= 10.0 IU/mL Positive - Presumed immune CYTOMEGALOVIRUS ANTIBODY, [id number] 12:02:15 Test Item Value Reference Range Interpretation Comments CYTOMEGALOVIRUS, IGG (BEAKER) Positive Negative, Equivocal A (test code = 3429) CMV IgG Result Interpretation: </= 0.8 Al Negative 0.9-1.0 Al Equivocal >/=1.1 Al PositiveEBV ANTIBODY, [id number] 12:02:15 Test Item Value Reference Range Interpretation Comments IMANI DENIS VIRAL CAPSID Positive Negative, Equivocal A ANTIGEN IGG (BEAKER) (test code = 3415) Imani Denis Viral Capsid Antigen IgG Result Interpretation: </= 0.8 Al Negative 0.9-1.0 Al Equivocal >/= 1.1 Al PositiveEBV ANTIBODY, [id number] 12:02:15 Test Item Value Reference Range Interpretation Comments IMANI DENIS VIRAL CAPSID Negative Negative, Equivocal ANTIGEN IGM (BEAKER) (test code = 3418) Imani Denis Viral Capsid Antigen IgM Result Interpretation: </= 0.8 Al Negative 0.9-1.0 Al Equivocal >/= 1.1 Al [id number] 11:58:38 Medical Cytology Report Case: [id number] Authorizing Provider: Joseluis Stoner MD Collected:03/08/2023 12:46 PM Ordering Location: [facility] Received: 03/08/2023 01:09 PM Pathologist: Shaneka Saab MD Specimen: Pleural, Left LEFT PLEURAL FLUID (CYTOSPINS AND CELL BLOCK): - NEGATIVE FOR MALIGNANCY Signing Pathologist Direct Phone Line: [phone] signed by Shaneka Saab MD on 03/11/2023 at 11:58 AMThere are rare clusters of atypical cells that stain for positive Calretinin and negative for MOC-31 and Jason-EP4, confirming their mesothelial origin. Negative for eougxuzjjn77396, 31241; 99689; 33935 x 89 y.o. F presenting with left pleural effusion here for left thoracentesis. PMH: asthma, cirrhosis, HTN, abscess (MRSA)LEFT PLEURAL FLUIDA. Pleural, LeftReceived 1100 mls bloody opaque chylous fluid; prepared 4 cytospins and cell block(A2)(collodion bag) -the cell block was fixed in formalin at 10:35 on 03/09/2023 Performed.SatisfactoryThe interpretationof this case included the use of immunohistochemistry or special stains.Calretinin; MOC- 31 and Jason-JF0Wzucifd Slides Examined: In-house known positive controls were evaluated along with the test tissue. These control slides run alongside of the patients sample show appropriate staining. Internal positive and negative controls when available are evaluated Immunohistochemistry technical testing was performed at [facility], Pathology Laboratory where it was [...] qualified to perform high complexity clinical laboratory testing.[facility], Department of Pathology, [address] [place] [address], Yudd[facility], Department of Pathology, [address] [place] [address], [facility], Department of Pathology, [address] [place] [address], EYZC SCREEN, URINE, [id number] 09:09:56 Test Item Value Reference Range Interpretation Comments SCAN RESULT (test code = See scanned report. [id number]) BODY FLUID CULTURE + GRAM [id number] 08:36:33 Test Item Value Reference Range Interpretation Comments CULTURE (BEAKER) (test code = 1095) No growth XR DXA BONE DENSITY [id number] 00:58:42 [facility] : 1965 Sex: [...] Signed By: Ken Sauer03/11/2023 01:00 CDTWorkstation Name: [id number] CHEST 2 VIEWS 2023-03-10 14:22:18 [facility] : 1965 Sex: [...] Signed By: Lilo Domingo03/10/2023 14:24 CDTWorkstation Name: [id number] ZOSTER ANTIBODY, [id number] 08:09:51 Test Item Value Reference Range Interpretation Comments VARICELLA ZOSTER IGG (AL) (BEAKER) 3.3 (test code = 3197) VARICELLA ZOSTER RESULT INTERPRETATIONS: <=0.8 Al Nonreactive: Presumed non- immune to VZV 0.9-1.0 Al Equivocal >=1.1 Al Reactive: Presumed immune to VZV TOXOPLASMA GONDII ANTIBODY, [id number] 08:09:51 Test Item Value Reference Range Interpretation Comments TOXOPLASMA GONDII IGG QUANTITATIVE < IU/mL <10.0 (BEAKER) (test code = 3428) Toxoplasma Gondii IgG Result Interpretation: </= 9.9 IU/mL Normal 10-11 IU/mL Equivocal >/= 12IU/mL PositiveBODY FLUID CELL COUNT WITH DIFFERENTIAL 2023-03-09 18:42:15 Test Item Value Reference Range Interpretation Comments APPEARANCE FLUID Turbid Clear A (BEAKER) (test code = 510) COLOR FLUID (BEAKER) [place] Colorless, Straw A (test code = 511) RBC FLUID (BEAKER) 03604 /cu mm <=1 H (test code = [...] code = count. Negative for 2619) malignancy [id number] Shaneka Saab M.D. (BEAKER) (test code = (electronic 2620) signature) CONTAINER BODY FLUID EDTA Tube (BEAKER) (test code = 2873) XR MANDIBLE 4 VIEWS [id number] 18:04:10 [facility] : 1965 Sex: FEXAMINATION: XR MANDIBLE 4 VIEWS MIN INDICATION: PRE LIVER TRANSPLANT EVALCOMPARISON: None DISCUSSION:Osseous detail is partially obscured by overlying bones/soft tissues.No acute fracture or osseous abnormality given exam limitations. No joint malalignment or dislocation. The soft tissues are unremarkable. IMPRESSION:No acute osseous abnormality.Electronically Signed By: Deep Soler03/09/2023 18:06 CDTWorkstation Name: [id number] 17:13:55 Test Item Value Reference Range Interpretation Comments T4 TOTAL (BEAKER) (test code = 895) 7.7 ug/dL 4.9-11.7 Belt Repairer ID - [id number] 16:33:38 Test Item Value Reference Range Interpretation Comments THYROID STIMULATING HORMONE 4.265 uIU/mL 0.350-4.940 (BEAKER) (test code = 772) Belt Repairer ID - MMCARCINOEMBRYONIC ANTIGEN (CEA)2023-03-09 16:33:38 Test Item Value Reference Range Interpretation Comments CARCINOEMBRYONIC ANTIGEN (BEAKER) 2.2 ng/mL 0.0-5.0 (test code = 685) Belt Repairer ID - MMHEPATITIS B CORE ANTIBODY, [id number] 16:33:38 Test Item Value Reference Range Interpretation Comments HEPATITIS B CORE IGM ANTIBODY Nonreactive Nonreactive (AKER) (test code = 645) Belt Repairer ID - MMHIV-1 ANTIGEN WITH HIV-1/2 [id number] 16:33:38 Test Item Value Reference Range Interpretation Comments HIV-1 ANTIGEN WITH HIV 1\\T\\2 Nonreactive Nonreactive ANTIBODY (2) (AKER) (test code = 2586) Belt Repairer ID - [id number] 15:58:22 Test Item Value Reference Range Interpretation Comments T3 TOTAL (BEAKER) (test code = 0.72 ng/mL 0.60-1.81 656) Belt Repairer ID - [id number] 15:40:58 Test Item Value Reference Range Interpretation Comments TRANSFERRIN (BEAKER) (test code = 145 mg/dL 174-382 L 541) Belt Repairer ID - MMSpecimen slightly ictericCRYPTOCOCCAL [id number] 14:32:45 Test Item Value Reference Range Interpretation Comments CRYPTOCOCCAL ANTIGEN, SERUM Negative Negative, Interference (AKER) (test code = 1828) [id number] 14:32:11 Test Item Value Reference Range Interpretation Comments RPR SCREEN (AKER) (test code = Nonreactive Nonreactive 420) HEMOGLOBIN [id number] 13:55:09 Test Item Value Reference Range Interpretation Comments HEMOGLOBIN A1C 4.7 % See_Comment [Automated m essage] ELECTROPHORESIS ([facility]) The system which (test code = 3811) generated this result transmitted ref erence range: <=5.6%. The reference range was not used to int erpret this result as normal/abnormal . "The A1c is measured using a NGSP-certified method. HbA1c value equal to or greater than 6.5% as thediagnosis cutoff for diabetes. An HbA1c value of 5.7- 6.4% indicates increased risk for diabetes (prediabetes)."Belt Repairer ID - ADMOperator ID - ADMBLOOD GAS, [id number] 13:50:57 Test Item Value Reference Range Interpretation [...] (test code = 1819) 21.0 VITAMIN D, 29-[id number] 13:45:25 Test Item Value Reference Range Interpretation Comments VITAMIN D 25-OH (BEAKER) (test 17.2 ng/mL 6.6-49.9 code = 2764) Effective 06/22/2017: Reference Range ChangeNew: 6.6-49.9 ng/mL Previous: 13.0- 47.8 ng/mLRecommendedVitamin D Target Range: 30.0-40.0 ng/mLOperator ID - ED [id number] 11:33:41Medical Cytology Report Case: [id number] Authorizing Provider: Joseluis Stoner MD Collected:03/03/2023 01:57 PM Ordering Location: [facility] Diagnostic Imaging Received: 03/04/2023 11:36 AM Pathologist: Shaneka Saab MD Specimen: Pleural, Left LEFT PLEURAL FLUID (CYTOSPINS AND CELL BLOCK): - NEGATIVE FOR MALIGNANCY - Chronic inflammatory cells present in background Signing Pathologist Direct Phone Line: [phone] signed by Shaneka Saab MD on 03/09/2023 at 11:33 [id number], [id number] y.o. F presenting with left pleural effusion. PMH: asthma, cirrhosis, HTN, abscess (MRSA)LEFT PLEURAL FLUIDA. Pleural, LeftReceived 1100 mls bloody white chylous opaque fluid; prepared 4 cytospins and cell block(A2)(collodion bag) - the cell block was fixed in formalin at 13:05 on 03/07/[address], Department of Pathology, [address] [place] [address], [place] [address], [facility], Department of Pathology, [address] [place] [address], [address] of [facility], [address] [place] [address], [id number] 10:33:02 Test Item Value Reference Range Interpretation Comments ETHANOL (BEAKER) (test code = 400) < mg/dL <=10 Belt Repairer ID - MMCOMPREHENSIVE METABOLIC [id number] 10:14:53 Test Item Value Reference Range Interpretation [...] is not as accur ate as Creatinine aCrol rockwell in predicting glom erular filtration rate . Estimated GFR is not appl icable for dialysis patien ts Belt Repairer ID - MMOperator ID - MMSpecimen slightly [id number] 09:51:32 Test Item Value Reference Range Interpretation Comments MAGNESIUM (BEAKER) (test code = 1.9 mg/dL 1.6-2.6 627) Belt Repairer ID - [id number] 09:51:32 Test Item Value Reference Range Interpretation Comments PHOSPHORUS (BEAKER) (test code = 3.3 mg/dL 2.3-4.7 604) Belt Repairer ID - MMURIC [id number] 09:51:32 Test Item Value Reference Range Interpretation Comments URIC ACID (BEAKER) (test code = 8.2 mg/dL 2.6-7.2 H 773) Belt Repairer ID - MMSpecimen slightly ictericLIPID [id number] 09:51:32 Test Item Value Reference Range Interpretation [...] Borderline 130-159 High 160-189 Very High >=190 Belt Repairer ID - MMSpecimen slightly ictericBILIRUBIN, [id number] 09:51:32 Test Item Value Reference Range Interpretation Comments BILIRUBIN DIRECT (BEAKER) (test 1.0 mg/dL 0.1-0.5 H code = 706) Belt Repairer ID - MMGAMMA GLUTAMYL TRANSFERASE (GGT)2023-03-09 09:51:32 Test Item Value Reference Range Interpretation Comments GAMMA GLUTAMYL TRANSFERASE (BEAKER) 51 U/L 9-64 (test code = 364) Belt Repairer ID - MMSpecimen slightly ictericPREGNANCY SCREEN, [id number] 09:24:02 Test Item Value Reference Range Interpretation Comments TEST URINE (BEAKER) (test Negative Negative code = 583) [id number] 09:11:02 Test Item Value Reference Range Interpretation Comments FIBRINOGEN LEVEL (BEAKER) (test 229 mg/dl 225-434 code = 658) [id number] 09:11:02 Test Item Value Reference Range Interpretation Comments PARTIAL THROMBOPLASTIN TIME 29.4 seconds 22.5-36.0 (BEAKER) (test code = 760) PROTHROMBIN TIME/[id number] 09:10:24 Test Item Value Reference Range Interpretation [...] mechanical heart valves.CBC W/PLT COUNT & AUTO [id number] 08:59:26 Test Item Value Reference Range Interpretation [...] 0.00-1.00 PERCENT (BEAKER) (test code = 2801) [id number] 13:29:33 [facility] : 1965 Sex: FUS THORACENTESISUS Guided Thoracentesis History: pleural effusionPrimary Belt Repairer: Goldie Albright MD.Sedation: None. Anesthesia: Lidocaine local [...] uneventful recovery recovery, [facility] Complications: None immediate.Specimen: Sent to the lab. IMPRESSION:Impression: Successful ultrasound-guided thoracentesis of left pleuraleffusion withrecovery of 2.1 liters of pleural fluid. Thank you for the opportunity to assist in thecare of your patient.Electronically Signed By: Goldie Albright03/08/2023 13:31 CDTWorkstation Name: EXNSGJ2ZV CHEST 1 VIEW PORTABLE / [id number] 13:05:28 [facility]: 1965 Sex: FXR CHEST 1 VIEW PORTABLE [...] Signed By: Goldie Albright03/08/2023 13:07 CDTWorkstation Name: [id number] CULTURE + SMEAR 2023-03-07 16:58:04 Test Item Value Reference Range Interpretation Comments CULTURE (BEAKER) (test No fungus isolated in code = 1095) 28 days FUNGUS SMEAR (BEAKER) No fungi seen (test code = 1406) BODY FLUID CELL COUNT WITH [id number] 19:21:25 Test Item Value Reference Range Interpretation Comments APPEARANCE FLUID Turbid Clear A (BEAKER) (test code = 510) COLOR FLUID (BEAKER) [place] Colorless, Straw A (test code = 511) RBC FLUID (BEAKER) 03397 /cu mm <=1 H (test code = [...] code = count. Negative for 2619) malignancy [id number] Shaneka Saab M.D. (BEAKER) (test code = (electronic 2620) signature) CONTAINER BODY FLUID EDTA Tube (BEAKER) (test code = 2873) XR CHEST 1 VIEW PORTABLE / [id number] 15:32:34 [facility] : 1965 Sex: FXR CHEST 1 VIEW PORTABLE / BEDSIDETECHNIQUE: Frontal view(s) of the chest.INDICATION: post thoracentesisCOMPARISON: 02/21/2023FINDINGS/IMPRESSION:Lines/Tubes: NoneLungs/pleura: A lingular/left lower lobe opacity with adjacent leftpleural effusion. No right-sided pleural effusion. No pneumothorax.Heart and Me diastinum: Unremarkable.Soft Tissues and Bones: Unremarkable.Electronically Signed By: Goldie Albright03/03/2023 15:34 CDTWorkstation Name: EPDMCNY6CF [id number] 14:52:49 [facility] : 1965 Sex: [...] report as written.Electronically Signed By: Carolyn Jassi Vtavyo0803/03/2023 15:04 CDTWorkstation Name: OJSKJF0NABVHHZGPXELF LAB [id number] 14:03:21 Test Item Value Reference Range Interpretation Comments SCAN RESULT (test see scanned report See scanned report. code = [id number]) see scanned reportCT BRAIN WITHOUT IV [id number] 20:48:50 [facility] EVER : 1965 Sex: FEXAM: CT BRAIN [...] Signed By: Erika Almazan02/26/2023 20:50 CDTWorkstation Name: [id number] METABOLIC [id number] 18:18:27 Test Item Value Reference Range Interpretation [...] not appl icable for dialysis patien ts Belt Repairer ID - MITUL BSpecimen slightly [id number] 18:18:27 Test Item Value Reference Range Interpretation Comments LIPASE (BEAKER) (test code = 749) 65 U/L 8-78 Belt Repairer ID - MITUL BSpecimen slightly ictericCBC W/PLT COUNT & AUTO [id number] 18:18:20 Test Item Value Reference Range Interpretation [...] 0.00-1.00 PERCENT (BEAKER) (test code = 2801) [id number] 18:04:10 Test Item Value Reference Range Interpretation Comments AMMONIA (BEAKER) (test 40 mol/L 18-72 Speci men slightly code = 348) hemolyzed Belt Repairer ID - ADMINBODY FLUID CULTURE + GRAM [id number] 11:35:18 Test Item Value Reference Range Interpretation Comments CULTURE (BEAKER) (test code = 1095) No growth [id number] 12:49:07Medical Cytology Report Case: [id number] Authorizing Provider: Joseluis Stoner MD Collected: 02/21/2023 11:49 AM Ordering Location: [facility] Received: 02/22/2023 09:24 AM Pathologist: Salvador Davenport MD Specimen: Pleural, Left LEFT PLEURAL FLUID (CYTOSPINS AND CELL BLOCK): - NEGATIVE FOR MALIGNANCYReactive mesothelial cells and mixed inflammatory cells present Signing Pathologist Direct Phone Line: [phone] signed by Salvador Davenport MD on 02/23/2023 at 12:49 [id number], [id number] y.o. Fwith a PMH of HTN, asthma, Ciufentes cirrhosis, esophageal varices, refractory ascites and hepatic hydrothorax. Also with gallstones/biliary obstruction needing axial stent placement who was admitted to OSHfor nausea and emesis x one day and transferred to [facility] for further evaluation and consideration ofcholeystitis / cholelithiasis. LEFT PLEURAL FLUIDA. Pleural, LeftReceived 1100 ml gelatinous orange cream fluid; prepared 4 cytospins and cell block(A2)(collodion bag) - the cell block was fixed in formalin at 16:07 on [address] [facility], [facility] of [facility], [address] [place] [address], [facility], [facility] of [facility], [address] [place] [address], [facility]mljxSan [facility], Department of [facility], [address] [place] [address], [place] [id number] 15:34:35 [facility] : 1965 Sex: FUltrasound guided left thoracentesis.Clinical History: Left pleural effusion.Modality: Ultrasound.Sedation: None. Website Developer: Danuta Corralistant: None. Estimated Blood Loss: 1ccSpecimen: [...] guided left thoracentesis.BODY FLUID CELL COUNT WITH [id number] 13:54:05 Test Item Value Reference Range Interpretation Comments APPEARANCE FLUID (BEAKER) (test Turbid Clear A code = 510) COLOR FLUID (BEAKER) (test code [place] Colorless, Straw A = 511) RBC FLUID (BEAKER) (test code = 37032 /cu mm <=1 H 513) TOTAL NUCLEATED [...] 2873) XR CHEST 1 VIEW PORTABLE / [id number] 12:41:37 [facility] : 1965 Sex: FINDICATION: s/p left thoraCOMPARISON: 02/17/2023TECHNIQUE: Single frontal view of the chest.FINDINGS: Lines, tubes, and devices: None.Lungs and pleura: Clear lungs. No pneumothorax.Heart and mediastinum: Normal heart size. Unremarkable mediastinalcontours.Osseous structures: No acute abnormality. Mild to moderate spondylosisand facet arthropathy are present within the spine.Other: None.IMPRESSION:No acute intrathoracic abnormality.US [id number] 13:20:59[facility] : 1965 Sex: FUltrasound guided left thoracentesis.Clinical History: Left pleural effusion.Modality: Ultrasound.Sedation: None. Website Developer: Danuta VERONICACAssistant: None. Estimated Blood Loss: 1ccSpecimen: [...] and uncomplicated ultrasound guided left thoracentesis.US ABDOMEN [id number] 13:20:53 [facility] : 1965 Sex: FHistory: Ascites. PROCEDURE: Limited sonographic examination of the abdomen was performed inpreparation for planned ultrasound-guided paracentesis. Limitedsonographic examination of the abdomen showed only a trace amount ofperihepatic and midline fluid. Therefore, paracentesis was notperformed. IMPRESSION:1. Trace ascites, not enough for planned paracentesis.XR CHEST 1 VIEW PORTABLE / [id number] 08:45:23[facility] : 1965 Sex: FChest AP portableCOMPARISON STUDY: 02/16/2023History provided: Status post left thoracentesisPleural fluid has been evacuated on the left. No pneumothorax. Lungs areclear. Heart size normal.COMPREHENSIVE METABOLIC [id number] 05:08:14 Test Item Value Reference Range Interpretation [...] not appl icable for dialysis patien ts Belt Repairer ID - MMSpecimen slightly ictericPROTHROMBIN TIME/[id number] 04:59:05 Test Item Value Reference Range Interpretation [...] mechanical heart valves.CBC W/PLT COUNT & AUTO [id number] 04:48:06 Test Item Value Reference Range Interpretation [...] 0-0 (test code = 413) SODIUM, RANDOM [id number] 21:11:21 Test Item Value Reference Range Interpretation Comments SODIUM URINE (BEAKER) (test code = 20 meq/L 243) Reference Range: No NormalsOperator ID - ADMINURINALYSIS [id number] 21:04:51 Test Item Value Reference Range Interpretation Comments RBC UA (BEAKER) (test code = 519) 20 /HPF WBC UA (BEAKER) (test code = 520) 4 /HPF BACTERIA (BEAKER) (test code = Occasional 517) SQUAMOUS EPITHELIAL (BEAKER) (test 4 /HPF code = 516) Belt Repairer ID - techURINALYSIS WITH MICROSCOPIC IF [id number] 21:02:38 Test Item Value Reference Range Interpretation [...] = 463) SOURCE(BEAKER) (test code = 2795) Belt Repairer ID - techXR CHEST 1 VIEW PORTABLE / [id number] 09:34:56 [facility] : 1965 Sex: FINDICATION: cough, recent left pleural effusionCOMPARISON: NoneTECHNIQUE: Single frontal view of the chest.FINDINGS: Lungs and pleura: Mild basilar subsegmental atelectasis. Questionabletrace left effusion.Heart and mediastinum: Normal heart size. Unremarkable mediastinalcontours.Osseous structures: No acute abnormality.Other: None.IMPRESSION:Mild basilar subsegmental atelectasis. Questionable trace left effusion.HEPATIC FUNCTION [id number] 06:43:05 Test Item Value Reference Range Interpretation [...] (test code = 42 U/L 6-55 347) Belt Repairer ID - ADMINSpecimen slightly ictericBASIC METABOLIC [id number] 06:43:04 Test Item Value Reference Range Interpretation [...] not appl icable for dialysis patien ts Belt Repairer ID - ADMINSpecimen slightly ictericCBC W/PLT COUNT & AUTO [id number] 06:02:40 Test Item Value Reference Range Interpretation [...] 0.00-1.00 PERCENT (BEAKER) (test code = 2801) [id number] 18:46:14Medical Cytology Report Case: [id number] Authorizing Provider: Joseluis Stoner MD Collected:02/04/2023 02:25 PM Ordering Location: [facility] Radiology Ultrasound Received: 02/08/2023 08:26 AM Pathologist: Simon Corona MD Specimen: Pleural, Left LEFT PLEURAL FLUID (CYTOSPINS AND CELL BLOCK): -NEGATIVE FOR MALIGNANCY - Reactive mesothelial cells, histiocytes, and lymphocytes Signing Pathologist Direct Phone Line: [phone] signed by Simon Corona MD on 02/09/2023 at 6:46 PM8 [id number], [phone] y.o. F with h/o CIFUENTES cirrhosis decompensated with EV, hydrothorax HTN, abscess (MRSA),asthma.LEFT PLEURAL FLUIDA. Pleural, LeftReceived 1100 ml orange cream fluid; prepared 4 cytospins and cell block(A2)(collodion bag) - the cell block was fixed in formalin at 16:44 on 02/08/2023erformed .[facility], Department of Pathology, [address] [place] [address], [facility], [facility] of [facility], [address] [place] [address], FktihuS[facility], Department of Pathology, [address] [place] [address], ZSES FLUID CULTURE + GRAM [id number] 13:30:56 Test Item Value Reference Range Interpretation Comments CULTURE (BEAKER) (test code = 1095) No growth BODY FLUID CELL COUNT WITH [id number] 17:29:30 Test Item Value Reference Range Interpretation Comments APPEARANCE FLUID (BEAKER) (test Bloody Clear A code = 510) COLOR FLUID (BEAKER) (test code Red Colorless, Straw A = 511) RBC FLUID (BEAKER) (test code = 00233 /cu mm <=1 H 513) TOTAL NUCLEATED [...] EDTA Tube (test code = 2873) U/S, [id number] 16:18:00COREY, SAURABH SANTANA MD Laterality?- >LeftLabs to be Ordered:->Body Fluid Culture (w/Gram Stain, C\\T\\S)AFB smear and culture Labs to be Ordered:->CytologyLabs to be Ordered:->Fungal CultureLabs to be Ordered:->Glucose+LDH+ProteinLabs to be Ordered:->Cell CountLabs to be Ordered:->Other (please add comment)Reason for Exam:- >recurrent left pleural effusion [facility] EVER : 1965 Sex: FFINAL REPORT Ultrasound guided left thoracentesis. Clinical History: Left pleural effusion. Modality: Ultrasound. Sedation: None. Website Developer: Danuta Taylor PA-C Mounted Police Officer: None.Estimated Blood Loss: 1cc Specimen: 1100 cc [...] trasound guided left thoracentesis. Signed: Lee Diaz MDReport Verified Date/Time: 02/04/2023 16:18:02 Reading Location: [address] Ultrasound Reading Room RAD, CHEST, 1 VIEW, NON [id number] 15:10:00[facility] CENTERSAURABH MD Reason for exam:- >s/p left thoraShould this be performed at the bedside?->YesIn US [facility] EVER : 1965 Sex: FFINAL REPORT Chest, 1 view, 02/04/2023 2:53 PM. History: Post left thoracentesis. Comparison: 01/21/2023. Discussion: The cardiomediastinal silhouette and pulmonary vasculature are withinnormal limits for a portable exam. The lungs are clear without evidence of consolidation or effusion. The soft tissues and osseous structures are intact. IMPRESSION: No evidence of complication post left thoracentesis. Signed: Chano Enriquezeport Verified Date/Time: 02/04/2023 15:10:45 CBC W/PLT COUNT & AUTO [id number] 16:57:36 Test Item Value Reference Range Interpretation [...] (BEAKER) (test code = 2801) HEPATIC FUNCTION [id number] 16:17:22 Test Item Value Reference Range Interpretation [...] (test code = 42 U/L 6-55 347) Belt Repairer ID - BSSpecimen slightly ictericBASIC METABOLIC [id number] 16:17:21 Test Item Value Reference Range Interpretation [...] not appl icable for dialysis patien ts Belt Repairer ID - BSSpecimen slightly ictericPROTHROMBIN TIME/[id number] 16:05:29 Test Item Value Reference Range Interpretation Comments PROTIME (BEAKER) (test code = 18.5 seconds 11.9-14.2 H 759) INR (BEAKER) (test code = 370) 1.58 <=5.90 RECOMMENDED COUMADIN/WARFARIN INR THERAPY RANGESSTANDARD DOSE: 2.0 - 3.0 Includes: PROPHYLAXIS for venous thrombosis, systemic embolization; TREATMENT for venous thrombosis and/or pulmonary embolus.HIGH RISK: Target INR is 2.5-3.5 for patients with mechanical heart valves.BLOOD [id number] 16:00:58 Test Item Value Reference Range Interpretation Comments CULTURE (BEAKER) (test No growth in 5 days code = 1095) The specimen volume collected for this blood culture was below the optimum (10 mL per bottle or 20 mL total). Use of lower volumes may adversely affect recovery and/or detection times of some organisms.BLOOD [id number] 16:00:58 Test Item Value Reference Range Interpretation Comments CULTURE (BEAKER) (test No growth in 5 days code = 1095) The specimen volume collected for this blood culture was below the optimum (10 mL per bottle or 20 mL total). Use of lower volumes may adversely affect recovery and/or detection times of some organisms.[id number] 14:39:22 Medical Cytology Report Case: [id number] Authorizing Provider: Naheed Villalta MD Collected: 01/21/2023 08:44 AM Ordering Location: [address] Received: 01/21/2023 03:34 PM Service Pathologist: Hany Ferrer MD Specimen: Pleural, Left LEFT PLEURAL FLUID (CYTOSPINS AND CELL BLOCK): - NEGATIVE FOR MALIGNANCY BLOOD WITH REACTIVE MESOTHELIAL CELLS AND MIXED CHRONIC INFLAMMATORY CELLS SigningPathologist Direct Phone Line: [phone] signed by Hany Ferrer MD on 01/24/2023 at 2:39 [id number], [id number] y.o. F with h/o HTN, asthma, decompensated [...] PLEURAL FLUIDA. Pleural, LeftReceived 1100 ml bloody g elatinous lupe fluid; prepared 4 cytospins and cell block(A2)- the cell block was fixed in formalinat 16:38 on 01/21/2023erformed.[facility], Department of Pathology, [address] [place], [place] [id number], [facility]udpdqS[facility], Department of Pathology, [address] [place] [address], MpjlnpS[facility] Sol[facility], Department of Pathology, [address] [place] [address], HNLO FLUID CULTURE + GRAM [id number] 14:24:35 Test Item Value Reference Range Interpretation Comments CULTURE (BEAKER) (test code = 1095) No growth CALCIUM, [id number] 05:18:15 Test Item Value Reference Range Interpretation Comments CALCIUM IONIZED (BEAKER) (test 1.08 mmol/L 1.12-1.27 L code = 698) PH, BLOOD (BEAKER) (test code = 7.45 1810) COMPREHENSIVE METABOLIC [id number] 04:54:27 Test Item Value Reference Range Interpretation [...] not appl icable for dialysis patien ts Belt Repairer ID - ADMINSpecimen slightly [id number] 04:53:09 Test Item Value Reference Range Interpretation Comments PHOSPHORUS (BEAKER) (test code = 3.1 mg/dL 2.3-4.7 604) Belt Repairer ID - [id number] 04:53:08 Test Item Value Reference Range Interpretation Comments MAGNESIUM (BEAKER) (test code = 1.8 mg/dL 1.6-2.6 627) Belt Repairer ID - ADMINCBC W/PLT COUNT & AUTO [id number] 04:36:32 Test Item Value Reference Range Interpretation [...] (BEAKER) (test code = 2801) COMPREHENSIVE METABOLIC [id number] 04:44:22 Test Item Value Reference Range Interpretation [...] not appl icable for dialysis patien ts Belt Repairer ID - MMSpecimen slightly ictericCBC W/PLT COUNT [...] PERCENT (BEAKER) (test code = 2801) U/S, [id number] 18:07:00SAURABH NICOLE MD Laterality?- >Left Reason for exam:->SHORTNESS OF BREATH Reason for exam:->ABNORMAL IMAGING RESULT Labs to be Ordered:->Body Fluid Culture (w/Gram Stain, C\\T\\S) Labsto be Ordered:->Cytology Labs to be Ordered:->Glucose+LDH+Protein Labs to be Ordered:->CellCount [facility] : 1965 Sex: FFINAL REPORT Ultrasound guided left-sided thoracentesis. Clinical History: Left pleural effusion. Modality: Ultrasound. Sedation: None. Website Developer: Carlos Ray PA-C Mounted Police Officer: None.Estimated Blood Loss: 1cc Specimen: 2450 cc [...] MDReport Verified Date/Time: 01/21/2023 18:07:57 Reading Location: [address] Ultrasound Reading Room BODY FLUID CELL COUNT WITH [id number] 16:39:03 Test Item Value Reference Range Interpretation [...] = 2873) RAD, CHEST, 1 VIEW, NON [id number] 09:48:00SAURABH NICOLE MD Reason for exam:->s/p left thoracentesisShould this be performed at the [facility]?->Yes[facility] : 1965 Sex: [...] abnormality. Upper abdomen: Unremarkable. Signed: Lee Diaz [facility] Verified Date/Time: 01/21/2023 09:48:04 Electronically signedby: LEE DIAZ MD on 01/21/2023 09:48 AMCOMPREHENSIVE METABOLIC [id number] 05:25:17 Test Item Value Reference Range Interpretation [...] not appl icable for dialysis patien ts Belt Repairer ID - mmSpecimen slightly ictericLACTIC ACID, [id number] 05:14:06 Test Item Value Reference Range Interpretation Comments LACTATE BLOOD VENOUS (2) (BEAKER) 1.43 mmol/L 0.50-2.00 (test code = 2872) Belt Repairer ID - mmSpecimen slightly ictericCBC (HEMOGRAM ONLY)2023-01-21 [...] WBC 0-0 (test code = 413) PROTHROMBIN TIME/[id number] 00:49:25 Test Item Value Reference Range Interpretation [...] valves.CT, CHEST WITH IV CONTRAST- PE TEST [id number] 17:44:00SAURABH NICOLE MD Unlisted Reason for Exam - Click Yes and Enter Reason Below->No [facility] EVER : 1965 Sex: FFINAL REPORT [...] MDReport Verified Date/Time: 01/20/2023 17:44:58 LACTIC ACID, [id number] 16:27:23 Test Item Value Reference Range Interpretation Comments LACTATE BLOOD VENOUS 2.52 mmol/L 0.50-2.00 H Specime n slightly (2) (BEAKER) (test hemolyzed code = 2872) Belt Repairer ID - ADMINSpecimen slightly ictericRAD, CHEST, 1 VIEW, NON DEPT 2023-01-20 15:36:00SAURABH NICOLE MD Reason for exam:->SHORTNESS OF BREATHReason for exam:->ABNORMAL IMAGING RESULTShould this be performed at the bedside?->Yes [facility] : 1965 Sex: [...] acute abnormality. Other: None. Signed: Erika Almazan MDRort Verified Date/Time: 01/20/2023 15:36:18 HIGH SENSITIVITY TROPONIN [id number] 15:35:54 Test Item Value Reference Range Interpretation Comments HIGH SENSITIVITY TROPONIN I (test 8 pg/ml <=17 code = 5700141) Belt Repairer ID - ADMINThe ELECTRODYNAMICIST STAT High Sensitivity Troponin-I results should be used in conjunction with other diagnostic information such as ECG, clinical observations and information, and patientsymptoms to aid in the diagnosis of CT. HCG, QUANTITATIVE, [id number] 15:35:54 Test Item Value Reference Range Interpretation Comments GONADOTROPIN, CHORIONIC (HCG) QUANT < mIU/mL 0-10 (BEAKER) (test code = 649) Non- Females: <10 mIU/mL Females: Gestation Age Reference Range(mIU/mL) 0.2-1 Week 5-50 1-2 Weeks 50-500 2-3 Weeks 100-5,000 3-4 Weeks 500-10,000 4-5 Weeks 1,000-50,000 5-6 Weeks 10,000-100,000 6-8 Weeks 15,000- 200,000 2-3 Months 10,000-100,000 Belt Repairer ID - ADMINB-TYPE NATRIURETIC FACTOR (BNP)2023-01-20 15:33:30 Test Item Value Reference Range Interpretation Comments B-TYPE NATRIURETIC PEPTIDE (BEAKER) 11 pg/mL 0-100 (test code = 700) Belt Repairer ID - ADMINCOMPREHENSIVE METABOLIC [id number] 15:29:09 Test Item Value Reference Range Interpretation [...] not appl icable for dialysis patien ts Belt Repairer ID - ADMINSpecimen slightly [id number] 15:29:09 Test Item Value Reference Range Interpretation Comments LIPASE (DANNY) (test code = 749) 61 U/L 8- Belt Repairer ID - ADMINSpecimen slightly [id number] 15:29:08 Test Item Value Reference Range Interpretation Comments MAGNESIUM (MANUELAKER) 1.9 mg/dL 1.6-2.6 Specimen markedly (test code = 627) hemolyzed Belt Repairer ID - ADMINLACTIC ACID, [id number] 15:25:00 Test Item Value Reference Range Interpretation Comments LACTATE BLOOD VENOUS 3.00 mmol/L 0.50-2.00 H Specime n markedly (2) (DANNY) (test hemolyzed code = 2872) Belt Repairer ID - ADMINSpecimen slightly [id number] 15:17:14 Test Item Value Reference Range Interpretation Comments PARTIAL THROMBOPLASTIN TIME 29.9 seconds 22.5-36.0 (FlutterBROOKE) (test code = 760) PROTHROMBIN TIME/[id number] 15:16:12 Test Item Value Reference Range Interpretation Comments PROTIME (FlutterBROOKE) (test code = 18.8 seconds 11.9-14.2 H 759) INR (FlutterAKER) (test code = 370) 1.69 <=5.90 RECOMMENDED COUMADIN/WARFARIN INR THERAPY RANGESSTANDARD DOSE: 2.0 - 3.0 Includes: PROPHYLAXIS for venous thrombosis, systemic embolization; TREATMENT for venous thrombosis and/or pulmonary embolus.HIGH RISK: Target INR is 2.5-3.5 for patients with mechanical heart valves.CBC W/PLT COUNT & AUTO [id number] 15:12:40 Test Item Value Reference Range Interpretation [...] (BEAKER) (test code = 2801) pH, body [id number] 02:37:54 Test Item Value Reference Range Interpretation Comments pH, Body Fluid 7.6 (test code = 2748-2) PH FLUID TYPE Body fluid Reference (test code = range:Reference 70757-1) ranges have not been established on thistype of flu id for this test. EDILBERTO (test code Performing Lab *CHRISTOPHER = EDILBERTO) [employer]/[place] [address] [place], [place] Stephane Jeffers MD, PhD [facility] HospitalCOMPREHENSIVE [facility]OLIC [id number] 06:51:38 Test Item Value Reference Range Interpretation [...] 1092) DATA TO CALCULA TE ESTIMATED GFR. Belt Repairer ID - MIGUELOSpecimen slightly [id number] 06:11:49 Test Item Value Reference Range Interpretation Comments PHOSPHORUS (BEAKER) (test code = 3.6 mg/dL 2.3-4.7 604) Belt Repairer ID - [id number] 06:11:48 Test Item Value Reference Range Interpretation Comments MAGNESIUM (BEAKER) (test code = 1.7 mg/dL 1.6-2.6 627) Belt Repairer ID - MIGUELOCBC W/PLT COUNT & AUTO [id number] 05:40:48 Test Item Value Reference Range Interpretation [...] PERCENT (BEAKER) (test code = 2801) CALCIUM, [id number] 05:33:21 Test Item Value Reference Range Interpretation Comments CALCIUM IONIZED (BEAKER) (test 1.05 mmol/L 1.12-1.27 L code = 698) PH, BLOOD (BEAKER) (test code = 7.50 1810) BLOOD [id number] 00:01:46 Test Item Value Reference Range Interpretation Comments CULTURE (BEAKER) (test No growth in 5 days code = 1095) The specimen volume collected for this blood culture was below the optimum (10 mL per bottle or 20 mL total). Use of lower volumes may adversely affect recovery and/or detection times of some organisms.[id number] 19:31:37 Test Item Value Reference Range Interpretation Comments Case Report (test code Medical Cytology = 104) Report Case: [id number] Authorizing Provider: Marisabel Ho MD Collected: 12/30/2022 09:33 AM Ordering Location: [address] Received: 12/30/2022 01:05 PM Service Pathologist: Lilibeth Mello MD Specimen: Pleural, Left DIAGNOSIS (test code = c2oefOAnCYNen8nhWTQhqX 3220) FuZzEwMzNcZnRuYmpcdWMx IHtccnRmMVxlcGljMTAyMD TcGN5ygJtbfSp2jYlkOAKy soM4eEXnRLsat8jpJGG1h4 jptvazTKIqDKxrDw9zqCRt cCvrEbSiDJRbCGz5rC23XR EhoR5zwBTrNFq1GFHbzOCx fhCaAdJjTJWfjTOvqRG0KI TrSK4eixkfBFtgLDqqRQLj zjZ5FNOuuEDmZ7NgXLEhUD 6vdmyoZDF7CXgyNIWhSJR7 XkBoVFPek2Qzfuu0SdSqyC FyZFxwbGFpblxmczIwIExF RlQgUExFVVJBTCBGTFVJRC LwD4wLI6OAXE0CXDQOVQHN FJlJPESIU8TWRNemoIxsQW AgICAtICBORUdBVElWRSBG E7VcWMZRSGkCAO1NQBfxZD IgICAgLSAgQmVuaWduIGFu VOImQCJqfWc6WORbTSNmqB bcvQzlxMXvQAjbhwLoTY7u yRVrSIereUhkHWY4jPYwVR 5mOLRuad9zaTYeyK2yzHWo zNQ0aV2aCCbwTUA9s7pirJ YxXHNzdGUxODAwMFxhbnNp UPPuOuuindgcAGXoURG0mo PmEDEoREdnWBNmHNwgVl1a lUYfxWlqAdXuRAFoa6meui IRnbqhsPo1j1spDSEcZxO9 xAPySFxvF8ofusZkcTEgYA YhDKc3iG43AFBckR5zfCUp UGrtiaLwIgU1GGlgWOJeQh J3CXMxsQAtTUKlC8jvACLk BPxtJMBqYUymqCNlXDP3mT hnl8V4yXPgeIXmfJswUoLe AvIkMyMPf8UmEQy6bKvbC9 FxFUNoBzZ6jZHrPXIhCIgg AQNzJJAhyaA8sK78ZSndbj J1aJIbt9Sac73wq356dM0w cXAhYGA8PSBoTUUsmVYwPI ZvFWA9KFJqfDIuA0etBLXj SE0rqrxnWIbjGPhfOZYudL Y1AYUbiYWpQ4PkDYLbUMjk CVZhgro7EbUzCq8twIKxqY waMFemz1gna2yxmCMeQhf8 TMViFkFqXumqRWfvu1Nbt2 jeJPGgao9aXSB9rNFcyEvb o9H5hMPxPNKniIWgYSGaAC 9kwCCaGTTahG9hnoyoBWOh YnJkcmhlYWRccGdicmRyZm 4bcZloMZP3QYbtN9sckG0n WdS1XGpsL2bubK4vEEh6WP zgWONflOS5fbR8IXOpcCFk R3SvsE0vOBGvYJ8jvco6a1 hxNTS5LEpjYZWaSaB2avG4 NDBcaGVhZGVyeTcyMFxmb2 02CTJ5OoSoKFUmp3GmT7Xo qOxpH57kjBszV36fQEYxcN shnA4hePbkaQ7aZnXdMhZo OIeykEbvUW9xNWDmL2dpiB BjRXCqPAUnJ0fyDkRvcD7b iUkwNUjkmtWyKNAoZqh8IJ ZxlJTfYXZzDua2YRNzRDJn G30drectCKE4kB9yv4szh3 HnOKqiENU0PAKfs48aMWpf jkZ2OMfpIn98QDrsSUE5LJ pccGFyfX0= CPT Code(s) (test code r9hwrYWnYIOjsTGjATTkHZ = 3357) uahtAgTDRoyFNuN4Mnflut FJjpYT7nBV6edOierLRshS YeIVTpQqCrd8zeg787jKYv w4kfIBHSxuznaJd1jUmqI1 3vb9B3UwgqS26jwNDtQLG5 CMSqAJZqvNRbEDEsLKJ2EP OwkVYrY9txCXAeIW3leqfi YNedJHccODHaqSG7PEVyoJ RbM2GgSFRlPCmsDVFgsro2 XqXbNt8iaXBbtOugXPesEF JkXHBsYWluXGZzMjAgODgx QRwdNJd5UxN0ABYeti1= CLINICAL DATA (test x9nlpHRgUNPmfGCyYZScXS code = 3355) ifqpLgPKXoaHPsU9Bzirll GGisIT1dCP0zpUltxDTlzN EnSNSdViGqj0obz975lTCy i8qvSNNUnrfaoKf4pYvaQ5 9my3Y2HpzwW48dkMFtZKZ4 DWGeVERwpOBmPDMaEXN6WW DvjOJiE4jgDPYvXZ1ofbhh UHwzGBurFAPtmDC9LURxdB AvJ3ArRMQpITrlYQGbukl7 FtIuZg2yvXDhcBpaVUkdZJ JkXHBsYWluXGZzMjAgNTgg gI5kWzi+Rlx+p5g4qEApV6 0uFICum98rIR5nAFAhEARP JQFRVHBauwQvi8UgzxYrD2 GdDDFnmKztT8FrdFL7QMCm U9DbPGSvo1FvvBFdIURqco YvzZbdhg61cG8iTTagVO5o BQvsc5GibvSyRDxiwKyzab TyIV58LVSoiJbaz0kgcjZg SfJlEeWmIk9xCWKcuDfulh mzj3KdjYZ9I3Nxl24zjb0y PTG5aQ0cRWG7UP44BXDkDO 0fVQCia4ErNDEufCCtlRDt zFYzVB7eaMRlqCPvEv1kLF Uvm6hnF3uorMSvuO7rgSbw dpdEEwlwOW4tAZCycChsUE Z0tjJpy0ZglhVhVXSujs7k OF10dXVsRDYvGZAaSe7nLM D8DCz7BLFro61zBC7mAPIl QJY8sWSzoVYcCiZqHsYijK rdKUzdmDHbhfgmsi8qcQ9w WC09OAMqk6QyKWMqoqDcq7 bxnqQeLWJrSA4kXVMiQHI1 fY5xpPOpxF== SPECIMEN SOURCE (test v4trfQZwOJRyoDKyDLCwJS code = 3377) fsroPrFXAbqWHkP0Iyjqqi IXaoYQ5eEC7fwOapcYTohJ BkXHPlYiUsf2ike761lFBg a1jzJASIgbrgqQn8nKoaH3 5sx2M0CnkvB50zyKUtBXV7 FMBnJSTpdDSbTBWlHDF9NI SnrOHsZ7vnAVVzBQ6lbtse LRomBIglAXOpqIR4TUCzyY TrI0DxJPVbUOdoKYMmpqw3 JlYuIi2naAQhfUuoSLahBI JkXHBsYWluXGZzMjAgTEVG VCBQTEVVUkFMIEZMVUlEXH Bhcn0= GROSS DESCRIPTION (test r8dkqDSbOUJcyPNeZNQqGA code = [id number]) rlpfKiMCTdhFIyN8Uohihd ZYrkZO6iAW9imIatzXHzuM TvTLHnFvCrb6jwk616qTUr i9jtECBSwzbqnRt8aMimR8 6wf4E9XgsxM22crAFmAFW4 FYYnHBLlyWDxSHSmAGR9YV KcjMQwZ9qfFMQpVE7ojirq XAnwDVphKBFjmPO2NUFqwE OqX9UyQRSfVEclXTVnrcn4 ZnEyWr7mhPKduMudWFjeQb bkvWhlf5SkfEFnSGlwRRTs KDQfLRjeLDAgJ0SDIPSwEH Z9Hpr0WwRkClLXCYE9AbVa AchpUKXYPWHxCIt3QcE1JO k1YsGDQlDdSINdSBTcJVEm YOXgZO9vHGwasXLkMKukXh cgSXjyG346TLflUABhM8Dy Q3TnULzoDRP5RXHmSkKaMS UvAS4HDjTpZSakYDY6KFOh FUm0JIa7FY0FEoMvOPOoGk usBVt7SYFiFJw9DEbwEE4S PJmlQCt6Fjd8DaO9HNl2Mw BcXHQgMiBcXHNzIDMgXFxm kIDaMZ5prJsoTYLjAOOaDW dfWURaFkTnMZ0bKNejfLCu bCwgTGVmdFxwYXJccGFyZF udLyDfCMHyiCHZf9FiTPqe YSYbGQNifIVJj1NaYOljkN UrgomfiyYdJZDqR2YbjiYy DBFxMLIxdFwvDAAfg98ecU BmbHVpZDsgcHJlcGFyZWQg JLDcuVBdk2MctxSfMI7yTO EdnQnzLvtrT3psGEYkGUZg yXtuQPexfaExOQbaJV4efJ lpWNXjrGaoKgarQ4isr3Xz FMNtkKNcCLgrYCQjjf1xoX lgKGK3IUNnNjJkIB6hLDP3 TxYoIaXdTeWtx6nraZcee0 WpwQZvBH12SPVxhLCeVFH1 DK4whEkwLNZ8 MICROSCOPIC DESCRIPTION o5dxeCPaLCFzzOAbWZJdYI (test code = 3371) zilwKhESMikRWjE4Yohgbo DCmzMU1vUX0xuRnvbQObtE PcWMCkSiRpz2gdo541xMIg f5meCGPOyhvgxZm3wSrqA0 0qy8J1SbkaC76cbEPkRIF8 ZSFiMKSfnEJdVXQgEXY4OW ZpvHTpE5afBVOhMT9adhsh OExlZEelDQGfuOF6WBZfmC FwE8DeHGFgGKcxPZMfzwh3 QxBuTl7roZOvaVkoPIrcVJ JkXHBsYWluXGZzMjAgUGVy Ps9blHQzJgzlPIMgmVTdLJ xwYXJ9 STATEMENT OF ADEQUACY Satisfactory (test code = 2757) Gross assessment was [facility] performed at ([facility], = 2777) Department of Pathology, [address] [place] [id number], Technical component was [facility] performed at ([facility], = 2778) Department of Pathology, [address] [place] [id number], Professional component [facility] was performed at ([facility], code = 2779) Department of Pathology, [address] [place] [address], [facility]:37[facility] Cytology Report Case: [id number] Authorizing Provider: Marisabel Ho MD Collected: 09:33 AM Ordering Location: [address] Received: 12/30/2022 01:05 PM Service Pathologist: Lilibeth Mello MD Specimen: Pleural, Left LEFT PLEURAL FLUID (CYTOSPINS AND CELL BLOCK): - NEGATIVE FOR MALIGNANCY - Benign and reactive mesothelial cells admixed with acute and chronic inflammation Signing Pathologist Direct Phone Line: [phone] signed by Lilibeth Mello MD on 01/03/2023 at 7:31 [id number], [id number] y.o. F with h/o decompensated CIFUENTES cirrhosis [...] in formalin at 13:50 on 12/30/2022 Performed.[facility]actoryB[facility], [facility] of [facility]ology, [address] [place] [address], [facility], Department of Pathology, [address] [place] [address], [facility], [address] [place] [address], KWBQUQFVMNVNN METABOLIC [id number] 07:49:18 Test Item Value Reference Range Interpretation [...] 1092) DATA TO CALCULA TE ESTIMATED GFR. Belt Repairer ID - DBOperator ID - MARIOSpecimen slightly chrskgmACSMMCXZN6009-74-40 07:48:02 Test Item Value Reference Range Interpretation Comments MAGNESIUM (BEAKER) (test code = 1.7 mg/dL 1.6-2.6 627) Belt Repairer ID - DBOperator ID - MARIOCOMPREHENSIVE METABOLIC [id number] 06:48:02 Test Item Value Reference Range Interpretation [...] 1092) DATA TO CALCULA TE ESTIMATED GFR. Belt Repairer ID - HENRIQUE GSpecimen slightly ohmfqlgRJGHDNVCV1079-18-61 06:47:07 Test Item Value Reference Range Interpretation Comments MAGNESIUM (BEAKER) (test code = 1.8 mg/dL 1.6-2.6 627) Belt Repairer ID - HENRIQUE GBody fluid culture + gram [id number] 17:31:13 Test Item Value Reference Range Interpretation Comments Result (test code = 6463-4) No growth Lab Interpretation (test code = Normal 07557-1) [facility] HospitalBODY FLUID CULTURE + GRAM [id number] 17:31:13 Test Item Value Reference Range Interpretation Comments CULTURE (BEAKER) (test code = 1095) No growth BODY FLUID CULTURE + GRAM [id number] 17:31:13 Test Item Value Reference Range Interpretation Comments CULTURE (BEAKER) (test code = 1095) No growth COMPREHENSIVE METABOLIC [id number] 06:01:19 Test Item Value Reference Range Interpretation [...] 1092) DATA TO CALCULA TE ESTIMATED GFR. Belt Repairer ID - ADMINSpecimen slightly ictericCALCIUM, [id number] 05:59:45 Test Item Value Reference Range Interpretation Comments CALCIUM IONIZED (BEAKER) (test 1.04 mmol/L 1.12-1.27 L code = 698) PH, BLOOD (BEAKER) (test code = 7.44 1810) [id number] 05:59:10 Test Item Value Reference Range Interpretation Comments MAGNESIUM (BEAKER) (test code = 1.9 mg/dL 1.6-2.6 627) Belt Repairer ID - JVHYLUITZSDLUAL7894-93-03 05:59:10 Test Item Value Reference Range Interpretation Comments PHOSPHORUS (BEAKER) (test code = 2.6 mg/dL 2.3-4.7 604) Belt Repairer ID - ADMINPROTHROMBIN TIME/[id number] 05:38:46 Test Item Value Reference Range Interpretation [...] mechanical heart valves.CBC W/PLT COUNT & AUTO [id number] 05:34:48 Test Item Value Reference Range Interpretation [...] 2801) 2D Echo W/Doppler(CW/PW/Color)2022-12-31 17:29:02Ejection FractionSST. [facility] E[facility]ART[facility] MKCKESSON [facility] Center[facility] PATTERN 2022-12-31 12:46:54 Test Item Value Reference Range Interpretation Comments EMORY TITER (BEAKER) (test code = :160 1541) EMORY PATTERN (BEAKER) (test code = Homogeneous 1781) ANTI-NUCLEAR ANTIBODY (EMORY)2022-12-31 12:46:31 Test Item Value Reference Range Interpretation Comments ANTI-NUCLEAR ANTIBODY (EMORY) (BEAKER) Positive Negative A (test code = 418) Test performed by IFA method.MISCELLANEOUS LAB [id number] 09:11:47 Test Item Value Reference Range Interpretation Comments SCAN RESULT (test code = SEE SCANNED RESULTS 1791205) Protein, Total, Peritoneal [id number] 08:59:02PROTEIN, TOTAL, PERITONEAL FLUID12/31/2022 8:59 AM [employer] [facility]evilleAlbumin, body [id number] 08:58:38Albumin, Fluid12/31/2022 8:58 AM [facility] LABORATORYReference Range: No Normals Assay performance has not been validated for this type of specimen.[facility] HospitalProtein, Total, Pleural [id number] 08:56:30PROTEIN, TOTAL, PLEURAL FLUID12/31/2022 8:56 AM [employer] [facility] BeevilleLactate Dehydrogenase (LD), Pleural [id number] 08:56:06Lactate Dehydrogenase (LD), Pleural Fluid12/31/2022 8:56 AM [facility] [facility] BeevilleGlucose Pleural Mvngt2815-86-07 08:55:45Glucose, Pleural Fluid 12/31/2022 8:55 AM CDT[facility] Albumin Pleural [id number] 08:54:47Albumin, Pleural Fluid12/31/2022 8:54 AM CD[facility] BeevilleMISCELLANEOUS LAB [id number] 08:54:04 Test Item Value Reference Range Interpretation Comments SCAN RESULT (test code = SEE SCANNED RESULTS 7321497) Bilirubin, Zvvyp9559-55-58 08:54:04Scan Fvxmlo4212/31/2022 8:54 AM [facility] [id number] 05:33:20 Test Item Value Reference Range Interpretation [...] 1092) DATA TO CALCULA TE ESTIMATED GFR. Belt Repairer ID - jose goSpecjacobn slightly ikqvxpfRDNKVZXZF5905-80-33 05:31:31 Test Item Value Reference Range Interpretation Comments MAGNESIUM (BEAKER) (test code = 1.8 mg/dL 1.6-2.6 627) Belt Repairer ID - kwokzVIREATPGIC4813-52-17 05:31:31 Test Item Value Reference Range Interpretation Comments PHOSPHORUS (BEAKER) (test code = 2.4 mg/dL 2.3-4.7 604) Belt Repairer ID - jose goPROTHROMBIN TIME/[id number] 05:24:04 Test Item Value Reference Range Interpretation [...] mechanical heart valves.CBC W/PLT COUNT & AUTO [id number] 05:23:22 Test Item Value Reference Range Interpretation [...] PERCENT (BEAKER) (test code = 2801) CALCIUM, [id number] 05:07:52 Test Item Value Reference Range Interpretation Comments CALCIUM IONIZED (BEAKER) (test 1.05 mmol/L 1.12-1.27 L code = 698) PH, BLOOD (BEAKER) (test code = 7.45 1810) Amylase Peritoneal [id number] 18:35:20 Test Item Value Reference Range Interpretation [...] specimen).This test has been modified from the putty remover's instructions and its performance characteristics were determined by [facility]. The laboratory is regulated under CLIA as qualified to perform high-complexity testing. This test has not been cleared or approved by the U.S. Food and Drug Administration. The reference intervals and other method performance specifications are unavailable for amylase in peritoneal fluid. Comparison of this result with the blood amylase is recommended. [facility] HospitalAMYLASE PERITONEAL [id number] 18:35:20 Test Item Value Reference Range Interpretation Comments AMYLASE, PERITONEAL FLUID (BEAKER) 17 (test code = 6447011) Amylase activity in peritoneal fluids of non-pancreatic origin is often less than or equal to the amylase activity in blood, whereas elevated amylase activity has been reported in fluid of pancreatic origin (five-folds or higher compared to contemporaneously collected blood specimen).This test has been modified from the putty remover's instructions and its performance characteristics were determined by [facility]. The laboratory is regulated under CLIA as qualified to perform high-complexity testing. This test has not been cleared or approved by the U.S. Food and Drug Administration. The reference intervals and other method performance specifications are unavailable for amylase in peritoneal fluid. Comparison of this result with the blood amylase is recommended.[id number] 18:13:56 Test Item Value Reference Range Interpretation Comments FERRITIN (BEAKER) (test code = 273.41 ng/mL 361) Belt Repairer ID - ADMINHEPATITIS B SURFACE [id number] 17:41:49 Test Item Value Reference Range Interpretation Comments HEPATITIS B SURFACE ANTIBODY < mIU/mL <8.0 (BEAKER) (test code = 647) Belt Repairer ID - ADMINHEPATITIS A ANTIBODY, [id number] 17:41:49 Test Item Value Reference Range Interpretation Comments HEPATITIS A IGG ANTIBODY (BEAKER) Reactive Nonreactive A (test code = 2797) Belt Repairer ID - ADMINALPHA FETOPROTEIN (AFP), TUMOR [id number] 17:40:44 Test Item Value Reference Range Interpretation Comments ALPHA-FETOPROTEIN (BEAKER) (test 3.2 ng/mL <10.0 code = 1094) Belt Repairer ID - ADMINHEPATITIS B CORE ANTIBODY, [id number] 17:40:44 Test Item Value Reference Range Interpretation Comments HEPATITIS B CORE TOTAL ANTIBODY Nonreactive Nonreactive (BEAKER) (test code = 497) Belt Repairer ID - ADMINHEPATITIS B SURFACE [id number] 17:40:43 Test Item Value Reference Range Interpretation Comments HEPATITIS B SURFACE ANTIGEN (2) Nonreactive Nonreactive (BEAKER) (test code = 2585) Specimen is considered negative for HBsAg.HEPATITIS C [id number] 17:39:02 Test Item Value Reference Range Interpretation Comments HEPATITIS C ANTIBODY (BEAKER) Nonreactive Nonreactive (test code = 367) Belt Repairer ID - ADMINIRON, TIBC, % SAT. (WITHOUT FERRITIN)2022-12-30 17:19:01 Test Item Value Reference Range Interpretation Comments IRON (BEAKER) (test code = 547) 81.0 ug/dL 40.0-160.0 TOTAL IRON BINDING CAPACITY 108 ug/dL 250-450 L (BEAKER) (test code = 769) IRON % SATURATION (2) (BEAKER) 75 % 20-55 H (test code = 2590) Belt Repairer ID - ADMINCOMPREHENSIVE METABOLIC [id number] 16:25:30 Test Item Value Reference Range Interpretation [...] 1092) DATA TO CALCULA TE ESTIMATED GFR. Belt Repairer ID - ADMINSpecimen moderately ictericLACTATE DEHYDROGENASE (LDH) 2022-12-30 16:17:54 Test Item Value Reference Range Interpretation Comments LACTATE DEHYDROGENASE (BEAKER) (test 246 U/L 125-220 H code = 635) Belt Repairer ID - [id number] 16:17:53 Test Item Value Reference Range Interpretation Comments MAGNESIUM (BEAKER) (test code = 1.8 mg/dL 1.6-2.6 627) Belt Repairer ID - [id number] 16:17:53 Test Item Value Reference Range Interpretation Comments PHOSPHORUS (BEAKER) (test code = 2.7 mg/dL 2.3-4.7 604) Belt Repairer ID - FIOZZRCPUU-5-IQLBNTCJXLT9754-04-20 16:17:14 Test Item Value Reference Range Interpretation Comments ALPHA-1 ANTITRYPSIN (BEAKER) 61.00 mg/dL 90.00-200.00 L (test code = 502) Belt Repairer ID - ADMINPROTHROMBIN TIME/[id number] 16:09:26 Test Item Value Reference Range Interpretation [...] mechanical heart valves.CBC W/PLT COUNT & AUTO [id number] 16:06:15 Test Item Value Reference Range Interpretation [...] PERCENT (BEAKER) (test code = 2801) CALCIUM, [id number] 16:03:36 Test Item Value Reference Range Interpretation Comments CALCIUM IONIZED (BEAKER) (test 1.07 mmol/L 1.12-1.27 L code = 698) PH, BLOOD (BEAKER) (test code = 7.38 1810) RAD, CHEST, 1 VIEW, NON [id number] 15:04:00SAURABH NICOLE MD Reason for exam:->post left thoracentesis R/O pneumothoraxShould this beperformed at the bedside?->Yes [facility] [...] Enriquez Verified Date/Time: 12/30/2022 15:04:41 Reading Location: [facility] Radiology Reading Room U/S, [id number] 14:59:00SAURABH NICOLE MD Labs to be ordered:->Body Fluid Culture (w/Gram Stain, C\\T\\S) Labs to be ordered:->Cell Count Reason for exam:->abdominal pain, cirrhosis Should this be performed at the bedside?->No [facility] : 1965 Sex: UFINAL REPORT Ultrasound guided paracentesis. Clinical History: Ascites. Sedation: None. Website Developer: Danuta Taylor PA-C Mounted Police Officer: None. Estimated Blood Loss: < 1 cc. [...] was achieved with 2% lidocaine, a 5 [place] one-step catheter was advanced into the peritoneal cavity under ultrasound guidance. After completion of drainage, the catheter was removed. There was no evidence of complication. Impression:Successful ultrasound guided paracentesis. Signed: Lee Diaz MDReport Verified Date/Time: 12/30/2022 14:59:31 Reading Location: [address] Ultrasound Reading Room Body fluid cell count with uafvogrwioow1969-96-20 14:42:21 Test Item Value Reference Range Interpretation Comments Appearance (test code Hazy Clear A = 9335-1) Color (test code = [place] Colorless, Straw A 6824-7) RBCs (test code = 44832 See_Comment H [Automate d 43469-3) message] The system which generated this result [...] See_Comment H [Automat ed (test code = 27074-3) messag e] The system which generated this result transmit joanna reference range : <=5 /cu mm. The reference range was not used to interpret this result as normal/abnormal . Adjusted lining 63 See_Comment H [Automated cells/Others (test message] The code = 59211-0) system which generated this result transmit joanna reference range : <=1 /cu mm. The reference range was not used to interpret this result as normal/abnormal . % Segs (test code = 29 % 01399-6) % Lymphs (test code = 39 % 10219-8) % Monos (test code = 31 % 54205-7) % Eos (test code = 1 % 54297-5) % Baso (test code = 0 % 48945-5) Container Body Fluid Sterile Vial (test code = 2873) Lab Interpretation Abnormal (test code = 56818-3) [facility] HospitalBODY FLUID CELL COUNT WITH [id number] 14:42:21 Test Item Value Reference Range Interpretation Comments APPEARANCE FLUID (BEAKER) (test Hazy Clear A code = 510) COLOR FLUID (BEAKER) (test code [place] Colorless, Straw A = 511) RBC FLUID (BEAKER) (test code = 72819 /cu mm <=1 H 513) TOTAL NUCLEATED [...] Sterile Vial (test code = 2873) CT, [id number] 12:35:00SAURABH NICOLE MD Unlisted Reason for Exam - Click Yes and Enter Reason Below->NoProtocol Please Specify:->Standard ProtocolWill this procedure require oral contrast?->No [facility] : 1965 Sex: [...] 12:35 PM BODY FLUID CELL COUNT WITH [id number] 11:08:18 Test Item Value Reference Range Interpretation Comments APPEARANCE FLUID (BEAKER) (test Cloudy Clear A code = 510) COLOR FLUID (BEAKER) (test code Red Colorless, Straw A = 511) RBC FLUID (BEAKER) (test code = 56570 /cu mm <=1 H 513) TOTAL NUCLEATED [...] Vial (test code = 2873) Protein, random [id number] 22:24:47 Test Item Value Reference Range Interpretation Comments Protein, Urine (test code 47 mg/dL 0-14 H = 2888-6) EDILBERTO (test code = EDILBERTO) Belt Repairer ID - ADMIN Lab Interpretation (test Abnormal code = 46680-8) [facility] HospitalPROTEIN, RANDOM [id number] 22:24:47 Test Item Value Reference Range Interpretation Comments PROTEIN, URINE (BEAKER) (test code = 47 mg/dL 0-14 H 1569) Belt Repairer ID - ADMINCreatinine, random [id number] 22:24:46 Test Item Value Reference Range Interpretation Comments Creatinine, Ur 176.5 mg/dL (test code = 2161-8) EDILBERTO (test code = Reference Range: No EDILBERTO) NormalsOperator ID - ADMIN [facility] HospitalCREATININE, RANDOM [id number] 22:24:46 Test Item Value Reference Range Interpretation Comments CREATININE URINE (BEAKER) (test 176.5 mg/dL code = 375) Reference Range: No NormalsOperator ID - ADMINUrinalysis w/Tkwzuntwqsy2107-01-88 22:11:30 Test Item Value Reference Range Interpretation Comments Color, UA (test code Yellow = 5778-6) Clarity, UA (test Hazy code = 5767-9) Specific [place], UA 1.046 1.001-1.035 H (test code = 5811-5) pH, UA (test code = 6.5 5.0-8.0 5803-2) Protein, UA (test 70 mg/dL Negative A code = 84297-6) Glucose, UA (test Negative Negative code = 365) Ketones, UA (test Negative Negative code = 2514-8) Bilirubin, UA (test Negative Negative code = 81530-5) Blood, UA (test code Large Negative A = 90244-8) Nitrite, UA (test Negative Negative code = 5802-4) Leukocytes, UA (test Negative Negative code = 5799-2) Urobilinogen, UA 0.2 0.2-1.0 (test code = 42336-2) RBC, UA (test code = 138 See_Comment [Autom ated 66327-6) message] The system which generated this result [...] . Bacteria, UA (test Rare code = 90431-0) Mucus (test code = Few 8247-9) Squam Epithel, UA 3 See_Comment [Automate d (test code = 02242-9) messag e] The system which generated this result transmit joanna reference range : /HPF. The reference range was not used to interpret this result as normal/abnormal . Specimen Source (test Urine, Clean code = 2795) Catch EDILBERTO (test code = EDILBERTO) Belt Repairer ID - [auto]Belt Repairer ID - tech Lab Interpretation Abnormal (test code = 76559-9) [facility] HospitalURINALYSIS W/ [id number] 22:11:30 Test Item Value Reference Range Interpretation [...] (test code Urine, Clean Catch = 2795) Belt Repairer ID - [auto]Belt Repairer ID - joblZFRFLWARAMIYE5749-01-26 17:38:31 Test Item Value Reference Range Interpretation Comments PROCALCITONIN (BEAKER) (test code = < ng/mL <0.05 3036) SEPSIS RISK (ng/mL)Low: 0.05-0.50Intermediate: 0.51-2.00High: >=2.01LACTIC ACID, [id number] 17:22:42 Test Item Value Reference Range Interpretation Comments LACTATE BLOOD VENOUS 2.07 mmol/L 0.50-2.00 H Specime n slightly (2) (BEAKER) (test hemolyzed code = 2872) Belt Repairer ID - BSSpecimen slightly ictericRAD, CHEST, 1 VIEW, NON [id number] 16:10:00SAURABH NICOLE MD Reason for exam:->evaluate left pleural effusionShould this be performedat the bedside?->Yes [facility] : 1965 Sex: [...] 31 pg/mL 0-100 (test code = 700) Belt Repairer ID - BSCOMPREHENSIVE METABOLIC [id number] 14:18:45 Test Item Value Reference Range Interpretation [...] not appl icable for dialysis patien ts Belt Repairer ID - ADMINSpecimen slightly ictericPROTHROMBIN TIME/[id number] 13:44:11 Test Item Value Reference Range Interpretation Comments PROTIME (BEAKER) (test code = 20.8 seconds 11.9-14.2 H 759) INR (BEAKER) (test code = 370) 1.84 <=5.90 RECOMMENDED COUMADIN/WARFARIN INR THERAPY RANGESSTANDARD DOSE: 2.0 - 3.0 Includes: PROPHYLAXIS for venous thrombosis, systemic embolization; TREATMENT for venous thrombosis and/or pulmonary embolus.HIGH RISK: Target INR is 2.5-3.5 for patients with mechanical heart valves.[id number] 13:43:55 Test Item Value Reference Range Interpretation Comments MAGNESIUM (BEAKER) (test code = 1.8 mg/dL 1.6-2.6 627) Belt Repairer ID - ADMINCBC W/PLT COUNT & AUTO [id number] 13:21:51 Test Item Value Reference Range Interpretation [...] PERCENT (BEAKER) (test code = 2801) Prepare [id number] 23:54:00 Test Item Value Reference Range Interpretation Comments Unit ABO (test code = 6307578) A Pos UNIT NUMBER (test code = [id number] 934-0) Status (test code = 9451204) TX_TIMEINCHART Blood Bank Product (test code FFP = 2263) PRODUCT CODE (test code = V6222C10 933-2) [facility] HospitalPrepare [id number] 23:54:00 Test Item Value Reference Range Interpretation Comments Unit ABO (test code = 1608677) A Pos UNIT NUMBER (test code = [id number] 934-0) Status (test code = 0298449) TX_TIMEINCHART Blood Bank Product (test code FFP = 2263) PRODUCT CODE (test code = Q7768F39 933-2) [facility] HospitalPrepare [id number] 23:54:00 Test Item Value Reference Range Interpretation Comments Unit ABO (test code = 8541372) A Pos UNIT NUMBER (test code = [id number] 934-0) Status (test code = 5900849) TX_TIMEINCHART Blood Bank Product (test code FFP = 2263) PRODUCT CODE (test code = Q3117D19 933-2) [facility] HospitalFin Needle Aspirate by Lyfmejelq2806-07-26 09:58:30 Test Item Value Reference Range Interpretation Comments Case Report (test code Medical Cytology = 104) Report Case: [id number] Authorizing Provider: Arcenio Lazo Collected: 11/30/2022 08:48 AM Ordering Location: [address] Received: 11/30/2022 03:09 PM Service Pathologist: Simon Corona MD Specimen: Lymph Node, liver, marguerite-portal lymph node biopsy via FNA DIAGNOSIS (test code = c8ucuQLsSABpa2mhKWFydS 3220) FuZzEwMzNcZnRuYmpcdWMx IHtccnRmMVxlcGljMTAyMD TuVP2ndRqfpVn9bBdkVCKv itH3sTMfAIhjx9iqFXC6e1 klxuceIGXyHEqbSo3sxCOt kIarKfHiMKElCCn6hP14CI QkjJ9aiLHmIYe3OWXnrZAr vjTuGhWoBVPozUHrrLT0KC WwOE1puqcbWAfwPBxwGTOz cfW7WSXizYUkE6WrHGEaTD 8esicwGJO1UTjhAHQqHCE7 PrMmXGOsk9Lzewp5VyWudG FyZFxwbGFpblxmczIwIExZ AGDYSN1VKKByIHxPTtBNRJ XAJivjWE9RETQHXOMKLU6J B3eoFxrWQZTSAJRlC1rRJ8 VCUM3SMRSBBSRWYFzYVPQW G4XRJGwsgAHqLQNqBA6hNw YQGZOETcUxGi6GSI0SDGnN XaIDHSAGKRgEQg5toWTwMH IqYI3wP6ZNDqFsXDrRGBfX RHHyBUhEC2PVWbccKBA7n1 xydGYxXHNzdGUxODAwMFxh bnNpXGRlZmxhbmcxMDMzXG H8oqMsJHDkNYekPRPpCXpw Cm9gfPBavLdyKwCxVOZjb4 wuswMKjawxnWz6h4rwUYJh DuG6gJHdKNrtR6yxvuYekS DrHMXnIJf1pA64HJZpkG4y bPIoRUpcxfLqGnU4DUqpKQ KiSuU6BCOuyNImHTUxD6rn ZWQwXGdyZWVuMFxibHVlMC S1cPxco6I8mHIidCXweZqk PnGiSuKoIyNXc1EbQIm2iR ljR6PpELThDmN4pTPlNQRv MOajPWTdOUGhupE3pY20EJ bycwW8lHLwo0Tbv06qz056 vG3qiRSrGRA2CVZkQJBtzC YoKMHbRHR1MFOegEVoR5ga FOZhUO4stwtyLDyfILcxGQ BqxJA6POGggKAbS5GqTMXl EUpzRLMaecg3GhKkGg1kdF FhzEulPRgld2des0yvcKQt Tue8PSGoPoAaAmixZVony8 Tnh9zkCVUnuy9vPTE3kHNs uZfhv1U9yIIkXOPrqOFuWV ZoLO3cuDOjPJNmlW6hgsse XHBnYnJkcmhlYWRccGdicm GyFc4hiXodPPF2ISqjC8gp cS5sPvN4XZueL2rzlI9mGV k5MQutSIZdrVP4kjO3IJHc xGUtL3NkzN8rUJVoEA1mxj l9g6uuVWZ4UZcxJCQgXuX1 swM0LJZgaKWyAOUleCfbMH bcx707BJC5PxVmTJAca2Tc V4LiuTpkN57adKscA53gIQ AfjGpeuO2ccCspiM5jOySn XbIpNTdiqLopWD3iBMVlQ9 cjbTXbDWXgNQXyJ3atNnWf aM9ffVfuRHdojrSrKJFyTk x9FQFqpWCzRPPrIwg1TGKs ZYUiA39zjewbCGF6iV8zd0 ouu0VsRJojHDT9YKZtl93r IQrobzV5KNshXj60DFogCS D9KUipKGR9pD== CPT Code(s) (test code p3ipuGQgUKHunIIbEQDuYU = 3357) defwAsVLRxhOQdQ7Vngvdd LMtdBQ3xEE6ntFgenGLweH CqDGSvZnXyt4uze862cSBg v4rmISPFwkmkyJx9wUvhO6 0ni6M1PfngB64hgDRxOMS6 KIHjEIYejVSgCFSnUJO8YN EzsTArE4gnHPYuTL3hgzal LBhnMAeeKPFjlIN0OIEstA ZwV9PiJBBcYXsbXZIzcrv7 VtTtXw0uhONcbXjoGTeiYQ JkXHBsYWluXGZzMjAgODgx SzJhYPm1FkP4PBCogo9= CLINICAL DATA (test z4wyhLArVSMaxPDvOCQmSG code = 1735) wetnYkOPWelFLuG8Lgayke UGztQI0kSC0opJtyxQBjaB UySUMkQmKjf5uzd796rQYv w0abSLNPmvgrrIm8hSkiO2 6wt6E6WhmdC35djLYyKSQ1 YLMmCEGzcIToRVUuSML6NL NryYAvT3pjQZRbUC0umjvq BLpdVUeuIRJuyVL1TUCvqK BdA2XuKLLvIFjtOMKqzql3 GkAiFv5nbMEzwKezLFvhMQ JkXHBsYWluXGZzMjAgNTgg cV6fLpk+Rlx+e7d0wKHJZM BEUAXpoiDwu1Zjujmbv4zu JISzNGZypdWfJAA6kjHAQ1 uju0c1pHQ7qPZzgxXuEKVw OYBqnD1oJB5ePCYXSCArQF luIHggNCBkYXlzIGFuZCB3 WMWrNr02svLpyZ9stEF8GY Gto5wxrSivSJMyBLVgq97c VXQlRFQiwsKheD1zXBJ0j2 QrfTyrH6Ozv7lrSM3nrQ7y bGSsnHWumLZdw58ibF4tK2 bsEutwcBa3fnN7ehGds9Sc xxHuBWV0xmVOS2kSVfQxp3 IcAVxKBs9ulgbeIWJ1 SPECIMEN SOURCE (test z7olhGExMWPdaMUbGKPlLB code = 3377) jewjHzFVVpxZLuL6Fsxbou DFydJB9qJW3rrQvanFTjbT KiGOElYeRym0adn849wMPc o8xjCKLKbrtyvBm7sSgiU3 3yk1J0DaxoC33vkJErDYP4 GQKsXBKezHRtQWMqLYY5DB NvbVLtD5nnEAAsDS2aredn AAcrJDfwIOZvkXV1NUUcqQ OsE3YbWHJmJLjdLRWjobl9 YuTpLj5qbFMfrHliHZxgQL JkXHBsYWluXGZzMjAgTFlN NUkrKy5SDGjaPNzARIXeGA PNHmxaEY7FHEFBOIDLU1YJ WSBGTkFccGFyfQ== GROSS DESCRIPTION (test h0xqmVRpDIDhnCONCEGzWS code = [id number]) AdUU8rbFcltDf3lBesOXSp afT6iQVtXCyle2yrETZ6o7 wkqqTJZkurXDGvPK7bEPtl NOAyVB0tQvPtUCMaSkJfKH BhcGVydzEyMjQwXHBhcGVy zWA7KHPoOC5flwmqLUlyXO dmWGYdpwE7QIDfiSQjK5Ah FLNhWB2pfgbcAPB4UYRPPs nsYj0baAQasKnsVfQaCrNv YXJzZXQwXGZuaWwgQXJpYW u4bK7HQvxqOLQ4UPAWYvly XpappNuub9IepUQaTZHbXX xcaWQgNTEwMDAgXFxkYiBP NsKuPkR4ZIFgOqW9XdA3FL m5ZDUOMHVsDQJeWnXeSRP1 XWq9HQTgCE8kFBogkPWkTV jbOetnGVwjK363NIxcAVPe Z3NhE0IuZYeoTxYnASzyRK CyMOYiUJtuFJMwH8BEQZBv PYBnTBL3EFZqJCz8QQxvB4 NFHBWnWRMdFelqDcE2AwA5 JWj0ZNYVCh9jMyr1XGc2FU R8ICN5AQr7TVkfpPIjQLgr v6NiRlOaNXThBXaduzY8OT SnoeOeIQohnFpiwN9wCdUg XiRXNjXFoK6jbYPWg5MyUD FwdhVNBzkfGMSeBR5LTWOw WAmzFXUzTjHchKQuU3glDX WeT11sg3FHn4BmWU6INHr1 rqYolymrlH8sQJDtoiXiBV pcZnMyMCBSZWNlaXZlZCAx KYDgbXIylZ8kQ6e3q4JjC5 ggcmVkOyBwcmVwYXJlZCA0 OLA7sN5xoNledgpmC7DfzF GntF3musJmYNYiFTfnDDsl MGNrz2XjTNVwZXKkCAMudx Cmd4OlPGnkmaJwvMMeYZjn NSBvbiAzLzIxLzIwMjMpXH BhciANClxzYTMwXGVwaWNY n4GzKGNIDfybwSucJeDwdS FlYwV5AQCqyUNgHQR1OX6x qYspOIOrM6TgX5UvdaI7ME EgquDSRdmqKRKmXL6GLJHp MjIgDQp9 MICROSCOPIC DESCRIPTION c8dnmWRgPJRwoHJjRQQcGQ (test code = 3371) ddskXfZNCnpBImT7Grorhu JGqfKH6nRS3dkOmocEEgbT XlVVBvDdHga6nqm804uKTx f7tbKJLIrcnwbHd5iBknZ9 0dw8H5KklpR70qqLUoEAN4 XEUvZOLlxKErTLZqPZR1ER ZkoRDjF2csMLQtEW8uldnt YTgyRAbmSCUliXH5NBJwhA RxV8QwQQGnNJulHZFersk1 OnHiUn7fqXHunDxmFPwrSD JkXHBsYWluXGZzMjAgUGVy Ga4nqACiOgptMUTszVVvDB xwYXJ9 Gross assessment was [facility] performed at (test code [facility], = 2777) Department of Pathology, [address] [place] [id number], Technical component was [facility] performed at ([facility], = 2778) Department of Pathology, [address] [place] [phone], Professional component [facility] was performed at ([facility], code = 2779) Department of Pathology, [address] [place] [address], [facility] by [id number] 09:58:30 Test Item Value Reference Range Interpretation Comments Case Report (test code Medical Cytology = 104) Report Case: [id number] Authorizing Provider: Arcenio Lazo Collected: 11/30/2022 08:48 AM Ordering Location: [address] Received: 11/30/2022 03:09 PM Service Pathologist: Simon Corona MD Specimen: Lymph Node, liver, marguerite-portal lymph node biopsy via FNA DIAGNOSIS (test code = a5kyiPJzPLNwd7atYKDxkW 3220) FuZzEwMzNcZnRuYmpcdWMx IHtccnRmMVxlcGljMTAyMD GwML3zqHcewZb1jNfmJGXz aoC2jAUcZPncx8eiNAT7z3 rkgkiwCXOhKJiaCg6jyMNz bPyaZpTnUFTiTMf5lL26JR VtzE1xkDCvSBp7FLXfgPOq ffCdAeRxATXusDVvvTA5QO CvVH3joixmHYbaOSgbAGJb siZ5WBBqlLTmS9KaUESyWH 0npolcXUV8TEkoUEGmKTH2 TfFsANGyh9Xspve4QjZijT FyZFxwbGFpblxmczIwIExZ SSGYBQ3FTOHiZOqXFjFSNW EFIdhoSV7EVFFOBTLBMT4I L7yzLxgPLLJRLZEdV1xED4 WLBE0LZYGOBXBFWOoOFXQC P8PNPAryeVWrKNOpWQ7wEb CNDDOHAtOjRj8CBC2MVOgL FkAWHTAIYGxUZg7hmOXuXH TbTS4mD4LKTbUsSWfNBDfX TKKdXAxYQ9HDNixiMUI9a3 xydGYxXHNzdGUxODAwMFxh bnNpXGRlZmxhbmcxMDMzXG V7loKwDWZrYYzfRIZnKGmd Hw1umSIptUwjXwMfAFXwt8 yszyYZoelujPx6r6fcNXYh KwC9uWRwTPtgU2gccaRqsU CgKXGtRGe8rO25RJUcnJ4z aYOfUBsztyCuNbA7AJenTO QbThB1BDRefCJkFEKxW5hl ZWQwXGdyZWVuMFxibHVlMC T0cCusk1Q5rNJeoZXgfYbd QfCiIePzYrDVp9QaJPi8zI pfS4VfXLKyCsJ1iMBqCTPi PEeiJAUsMHLebrP6zT51CN zhhwA3wMDem0Iyw66mq028 nB0jvRVdDHS6XOJoKDMecH WpYLNkMHM6EIFpnTNhQ2pw IMGbOP4ngsghRIblFRzuYB IssVB4ZVOjyOGpE8NbIMMb ZQtdIZPvkkb6VcCyFe6udV GleMocXQtyf1uyu7ahnOPi Mlf9KKMmSfEyTayuNSfuq8 Nie0dbUAPyte9aYSS3dVTs fHdsx5F3hWOyRAStkHXwJK MdLZ6jxAQzGCHyeD3yovkz XHBnYnJkcmhlYWRccGdicm SpMh8nhMjhSAP2QYewB3xt tX3kInJ7TCceR8gdqY0iIG j1LCjfUHMzmTE4ffS8SBGk hBAhP9RmaL1bJGTqUJ1vvn n9t0sdTZE8TJsrDTAaXoT4 qkQ6JNHajQKfLUKnzRoxLR jxd709IHT3EfSfBLXct2Fs T8ErzWycN84mwNalZ84jAG EvxWaruX9gdIchqT0nNlQg HiIpITzqnVqhWL4jWILaB5 belMNlDQVrBHThL1rqZcNs iO7erIdwIVorczTgGWXgFd h6RXAnhGKiIFRqArv7CEJp OMOgL25qzvgrRFU9mE1dh5 xfu9VtPZkkIJE5BPHbd11b DDouwiH4PZbsGq66UPthWK E4TUslFNH6wL== CPT Code(s) (test code p7enaFQkXGSxdOWbOINoLT = 3357) wzabHdHWUazRPtJ1Kfvlyg AOgtRP9wGQ7wyMvzfACusL MzMXJsZeQvi5rll427hMWb u6lpHORGwkgyvKo1zWnxX3 9ri8F1QemiJ62xdEKsAQA4 QDVvZOHiqLAsRZScXAB1UB WwhXVlX9ukVRBgEU2pcczq SYpgLXkuOTHmkJH5MFKrzA AaN7FgHNShHBkdBDYtjbl0 TuBmBc4mjMIcoOhbTZouTJ JkXHBsYWluXGZzMjAgODgx ZuTnLVl3VoA8ETGcga9= CLINICAL DATA (test g5rsjTQrIMPodMJdJZMvMY code = 3355) uklrRnGMZidBMtR4Xxarud LQhmCC8rCE8gdMbboPCsaH YuAQPwSwQzf6lxe483qRAq v3dcAJNRoretbMy3xRmnW7 3cv4A1WtqdR99zdFRfDCP0 KDLjRTAxgULuLYSjWMF6ZO InyYTdT2paBPMwZF6omxof JAxqXSikFNCgiWJ7KCKmpR MuQ1UgZYHgKRwzLGIqcoo3 LzXxGg4eyNCblOjrSKywBR JkXHBsYWluXGZzMjAgNTgg xQ2tOgq+Rlx+t1o7cPIZXW CONYHhcvDbe2Rculxsn7gp UWAoVKZppjGyOOV8lwHTL3 azz6s1zXS2cHXuyyQxTVCx OYCsjV1jZN6lQOTEBCZrFZ luIHggNCBkYXlzIGFuZCB3 IBFtIg44qvOpkO0oiLU6QG Vrp2lhjKwhUCHePZZxs75h PKQlSUAgbzLpjB6zNME7i5 UvnNozY9Nzf6emBF7ofJ3h zPIxrRBegOFsi48scX6lA2 lkBruuwCw5huK8xrPhb4Xh wjXvIEG3cfJFF2pJVhBdh3 LtJIbHPj5kuyhtWRN5 SPECIMEN SOURCE (test x7mdhRPlHBGbvYSgUGJeGN code = 3377) kmvkFdFOPkhBSmP7Edowcj LAokIZ8sEI7zpXdxlWNeeC MdXZTvPkPzp9hkc060uUMs z3gkSPROmsosoKu9rJjiJ0 2ms0M1XuwrA27bmOXzOYX1 DBVbCKVqqVYePHReYWH6HM FyvUEtU8ojUWNqQF8oclvp ANsfSDkwVHPrnXG9BWMbvV LhI7DhBWCmFVyxSSUjipv4 FpLlMn4puCUwmKykXBrsCG JkXHBsYWluXGZzMjAgTFlN BFeeOk1IGYbkWVsCNSQmES NYTvmzNR0NOQEZOAYMW5JY WSBGTkFccGFyfQ== GROSS DESCRIPTION (test s3ygiDXzJPQpvYDBASEhCU code = [id number]) MhHG1saMvjsPo0bHayQNMb rgW7bHNaIJwpx5xoUXB3v8 acazFMIhmsMCUtSF6eAHcw IIFoWU9kQcEwKPObCmIaQJ BhcGVydzEyMjQwXHBhcGVy lNF5PUPlHC0fquaqHAnoUS jqXPZqtoM8KSTftHQuB2Lr YUHhDH7naswdIUA4AIIZTt ynAi7gsAAauWzbGeFaLzVb YXJzZXQwXGZuaWwgQXJpYW s5yR4CExrhCBD8FKNNSxbt DuxjfKwxg3JhtCOmBWQbLI xcaWQgNTEwMDAgXFxkYiBP YhIxQzP7TSTvZnA5MmC2BC a5DNEYWOEsKFWvOaGcOPZ7 FUh0RFCrDW0rOXgpmDTcWP ovHwatSIuiU523SAvzNZPz P7DwC6DyQIftDcIdKWprHM PbQNUcBNhoEJPqW1FWDWPg VHRjBHX2AJNlVPm9OYgpU9 WRWSVlTWAsNsagIhN4VhT6 XPy3NTQPQr7eOuj9ADn6DW N8FNJ0MJj2PFiwjYQcWGek k8GuVvHaOXVlOPrtvrD1XD IoswBnDIrjfKydkF9mYwQm EdMEYyCKqF2ljKGNp6KvXH BwesHYFcogBUWqWD5YPOBd HYjmVCCiZqOnrQWsA3juHP CwD89vo4LFe5NtXW7UJCv6 kkTkapeemJ2uSVWhpfStSH pcZnMyMCBSZWNlaXZlZCAx OLXbyLZcuF7jU9u9e0KqC6 ggcmVkOyBwcmVwYXJlZCA0 ISC1aL6mtPmyacedR8HjdO WrqJ5qolPxJFWvUUfnAWxv MBSms0MdSDGkVUMbNKWdzj Syg8GaHNscbmRvyDIkOJig NSBvbiAzLzIxLzIwMjMpXH BhciANClxzYTMwXGVwaWNY d2CxYXBLYuxuvJuiQkNpzP EuGqJ0LXVweWMbJUZ2AP8n lTxcFPVvC9JaG1PextR8GA EuhiEQNunyPICgZB3PTLBf MjIgDQp9 MICROSCOPIC DESCRIPTION s8xyqOWtDWIaeBSxMSDxOA (test code = 3371) iyhgEzIEFtmMNfJ2Rxegbj LItwHD4rTO8jtGtrdVFegF StZPXbJqFko6jpe391qHSl x2ufTJGOvqlanVs8gYfsU0 2up4Q8RxacW35xmQCvDHR4 UZZfNRXlhOFqGCWbAAR3RT AdoOSzL9fuXDFfJO0getzq OUsfEFqfSMCcnCW0USMkzW ByQ6VxMYNlQTsiSHGpohp2 VeFcCt1umILdkAvjHAkjUB JkXHBsYWluXGZzMjAgUGVy Rl6zeDHeSxpnOHMtzYYrJO xwYXJ9 Gross assessment was [facility] performed at ([facility], = 2777) Department of Pathology, [address] [place] [address], Technical component was [facility] performed at ([facility], = 2772) Department of Pathology, [address] [place] [address], Professional component [facility] was performed at ([facility], code = 2779) Department of Pathology, [address] [place] [address], [facility] by [id number] 09:58:30 Test Item Value Reference Range Interpretation Comments Case Report (test code Medical Cytology = 104) Report Case: [id number] Authorizing Provider: Arcenio Lazo Collected: 11/30/2022 08:48 AM Ordering Location: [address] Received: 11/30/2022 03:09 PM Service Pathologist: Simon Corona MD Specimen: Lymph Node, liver, marguerite-portal lymph node biopsy via FNA DIAGNOSIS (test code = [id number] 3220) FuZzEwMzNcZnRuYmpcdWMx IHtccnRmMVxlcGljMTAyMD WbBJ2daYophUj2gTnhWHZf bgM3mLDqSEmay7yhGKP5b3 uumqkrYWUyOMfmJp3wzHYf rSswQrHgKPCzWWl9xV84OI ZwzM6qkRPcMGb6QMNvdIBr xhTcPuQqYQHnuGLljUF9ED WvZT6jxjupWItbLYurULMk jzW0LNBxwDJrR2EiNESjGF 4ckzrjFUX5CUfuCXFxESM4 WtQeJUHgs1Yoana5WxWsvX FyZFxwbGFpblxmczIwIExZ JXMYHY0FTLVdXXpEPcZFJV ZHFrmtEP6VYTLYDJRTJE8V Y1kxNosHKTXVXJDwV8wLV9 GWZP9RYOSXPAWGQHdNCMAM U2SGBTyuqRLkEBCxYQ7jPj LIHKBCGaRmAl5FUD9IQPqN UdBYYBRFJZxBBi3xhCPsAY LqNC4cQ0YSJpSfOLiQHSrL XBHqSWtUZ5NXKsqjCYU3e3 xydGYxXHNzdGUxODAwMFxh bnNpXGRlZmxhbmcxMDMzXG L4gcOkBJRqAAwxPHJkZTht Ox5hkJFqlBznRyWxXPNnt5 xobmONickooOe8f8viGNXl GmR7pDGcJUpaB1jldrLakC ZzWOOgDGh6wT32BJGorF8b rWFaCMcejqKiTnG7RGbwRJ BnCjK6EONvqWWcGIIxL1gj ZWQwXGdyZWVuMFxibHVlMC C3vKwjo5Z2oGYgoHKpgNjc AdYuRwUnWeNBp6JuJGe1uE zvO6XmNFDiQkH9nXLiWZEr JLziCMVhJLOwnxR9aP36DO tjhnO0lZPli8Rtc24br838 qF3eaKSsXHL4NBXdRGKtlY WnHZAgZOT6FTSlbPSxI1kf PQYvBQ4sroyiWZqqAHgjKT TzaBE4JJRppXBcR8NsIEBu FVnzQDBsxmg0CfEpQq6dvY VskSluEAlfw5ept8bauZTc Wtk7NMNvOaPpVzqjMHidb7 Aix0rsAJOtsb9mEBY1eYYs fTtsh6D6lSGsUXZqlVBuMP QkYT4nvBLgJQQnuQ5zffxn XHBnYnJkcmhlYWRccGdicm AkOi6xcKeeFIR3IOdfE6rm nM3aNuO6FNirD0becV6eOQ q5KAisDWQokJV3awC5QOFb xTUyX1UawJ4yRXStHM2ltx k4l4uvKGJ5PJiqMMUdJsN9 klL6FRAjhVHvEERayZbaNS tzx625BMN2DhIuNJQis6Un Q6ItxIurR16vrGszZ71dQZ PolXaztF5sdSkpnH3nNuUp XeXbXBruvDkeVR6vXZDyQ6 fkeQIhQOEiSHJpO1jpLcXh iA5hvSjwPHllurDzQJVcGu v9ANAbaELjJWFmCto5IBJh SSHmT75nxjjbBWE0tV2jg1 upt0OeGInyRRC7FPVzu69w LFvzhjI0KJtcWj14KFsrZO T7DSqeROX2qC== CPT Code(s) (test code m3nnnSVqAGInoZUbEZZfMF = 3357) ieybTlJXNjnEJgL3Meqngf UBfqHM7fPA9voGdvkKRwvK CvWMZxVzDxe3ywy093pLSz w8xfJQOXatyyfTu5rRrxN0 2zd8E3UsksS61xwAKgKBF9 GNQiBXCatOJuKIQsWAN6HP GsbNNmJ1aoIYKoND2qpgmg AHfeCWgbNAQsrXO2PESmxK YvH6TkTOKqXUavFOBprce6 IgKoPf1exYWheHaqXAggOW JkXHBsYWluXGZzMjAgODgx EtTrXVl4LxL8WMTkzl9= CLINICAL DATA (test y6mlrOCcYCMuqJHsBGXoXA code = 3355) mllkDuZDWitDQtD9Srcvzl DHxbPK0mET3jvFexoVQuiL CfUUQtRpUaj6guz155bQQg t6ucIEHKajkdcCi3dPdoU3 4ve5T0NtjzT69aqRHdPHJ0 NHXcRKNkiBWvMBJwDSH2WL FtnJNsN8xeBDXyCP6snnuk FPqeHEulVLLzaSC0DFTjdM WtH8WrFJYiYKzdPBDglra4 LbZdPl6qyQFlgXarTVusDM JkXHBsYWluXGZzMjAgNTgg jX0yYdz+Rlx+g8q5dGHSBV NQBTBhnnEyq3Pqxdzcb6sr CMFvZEDbwlJoVQR4skLVB3 jnd4c2zSY3cTTtxeSpVOFa QUVggQ2qKM9mOQKFQDRhHF luIHggNCBkYXlzIGFuZCB3 RDBpYk90mvVsyW5kfAV4JA Riq1jkrBsdKGDiSEXcx94h PPGvMSPpuvStpR5zAVT5w1 AlsFeqD0Gmo2xgCV8woQ3v uCJhoFJphGCij68jzE5jR0 lxDjgybCr7phN5gvAml6Dq fpOfKRX4jjSDJ1dCGsWbr2 GeZIhNHk4gqfvvOKL6 SPECIMEN SOURCE (test s3gmeQYoNORzsNBgKAJiOR code = 3377) vbfzYpMCDlsXVnF6Iuwxqu DDtpEA7uDG0hcSirfHMwoQ JeNKWtGpZxl6uiv179vVZv y4oeBYCJohuigWh2qXqjT3 3gb3C5GbleR47fbIIbODJ8 TDSyPIZgxRYaXMKoEOJ4NN VhaJUyM3taRSNsAX7kando DJmoQTlpFRDbtRH2CRLhmD WyK0PwBWWfSUkfQEPrvoz6 UqQrSg2xqYNphMelJKujGA JkXHBsYWluXGZzMjAgTFlN MJxcNu2IAKigEJyLYDYrPW JZDfucNU3GZNFFTQECU3GN WSBGTkFccGFyfQ== GROSS DESCRIPTION (test e7kizUWuVIEakIPTSOOsPU code = [id number]) YjWV9oxJeebIm2gTooXFHx teG0jODgCXvvs5cdDKM0o0 elszSWOmliYHUnJU4eUEvo XYMkJI6kQoFqRZPoIeZlXI BhcGVydzEyMjQwXHBhcGVy sDR9NMBxKL7qxhcjOSscTE laHCEpkhU5BMBeqGOiX6Or TOPkIW8rtpxiPXB4VTLVYt oeYx2hlGRylYssRwDvCiOy YXJzZXQwXGZuaWwgQXJpYW e1kE2JKlyqBAN3XYRHNavo DpnkaJtze4NseZGnOKPpIZ xcaWQgNTEwMDAgXFxkYiBP SeNvRlM6FSEbIbO2HtX7ZC p6KVHSDHFgXDJqEjMmUEQ5 UTn6RPWfCZ4nKHgfiJXpNZ wxZjlsBMtfX839UDbdMMHk E1ZhE6CyLKwlHbTlZXhdBI FvQAAdLMsiLXEnJ1VIQBPx ADVkUEH3SNGwEDf0HCriA5 MBVBMwGZRyEbopUqR8WfW8 HUj2KDWQVp5pVom6QMb2XY V5VBV2WBp8VDqdpLViBZfa n4ZyGkIlWBZpSElxolX9NR GilbCxYIkqvVoeaR5sSgPf ErTWUiDTsD1cyRTOb4TuKC WfalBCNhwdXVChQQ2DIHBi BLcxTOBiBrSphPXrM1hwUH CoS22ur9RLh5CjAP9CUFz8 jmTjturxjN6pMXUnneMtNS pcZnMyMCBSZWNlaXZlZCAx RABbyIXguN1zL3k2x8FmF1 ggcmVkOyBwcmVwYXJlZCA0 ZKV5iL1lmOvllwunR9OjoB HwbT0wnpCwTAKwWEbnXUnc OAWpu1UrOTPkHZSwDRNpxw Bda6LiXYuxfjQznEUzUSao NSBvbiAzLzIxLzIwMjMpXH BhciANClxzYTMwXGVwaWNY d7IqMXSGBcfhjYkvRtRxbD XqHgK3BCFueTJhDJA6ZR6x rNydCDWgG8HbX8SvgvA8TB CernDYQtggEUMxAV3HNRWa MjIgDQp9 MICROSCOPIC DESCRIPTION w5hskEWnHGPdbDVnEMEoUN (test code = 3371) xdoqLqRDNfmDSbQ0Rkstjn AIcePK9lGG1oqUozkCDyaR LhJJMpGtYdx0dzn817oTHn n0leAELBapedaDe4jOukH5 1wc7I3JdjgH40uxAPfIAA4 AWDzTOOzeGNnNBCrSSB6BH DsuHYfK3yuDRNbAK5ahqjr UNshGHzxFOJmfMW8SUFobX SaF2IcNHQkNHegRSZtdrg2 WxMdTq8ogFEtoKukTXuiXU JkXHBsYWluXGZzMjAgUGVy Gl4zdPDbWwzxTEJrgZQgGA xwYXJ9 Gross assessment was [facility] performed at ([facility], = 2777) Department of Pathology, [address] [place] [address], Technical component was [facility] performed at ([facility], = 2778) Department of Pathology, [address] [place] [address] 73465, Professional component [facility] was performed at ([facility], code = 2779) Department of Pathology, [address] [place] [address], [facility] ASPIR[facility] BY [id number] 09:58:30Medical Cytology Report Case: [id number] Authorizing Provider: Arcenio Lazo Collected: 11/30/2022 08:48 AM Ordering Location: [address] Received: 11/30/2022 03:09 PM Service Pathologist: Simon Corona MD Specimen: Lymph Node, liver, marguerite-portal lymph node biopsy via FNA LYMPH NODE, LIVER MARGUERITE-PORTAL, BIOPSY VIA FNA (CYTOSPINS AND CELL BLOCK): - NEGATIVE FOR MALIGNANT CELLS. - SCANT LYMPHOID TISSUE. Signing Pathologist Direct Phone Line: [phone] signed by Simon Corona MD on 12/01/2022 at 9:58 [id number], [phone] y.o. F with CIFUENTES cirrhosis, who presented to OSH with upper back pain and RLQ pain x 4 days and was found to have colitis and concern for cholecystitis/choledocholithiasis on imaging, thus transferred to [facility] for HLOC. LYMPH NODE, LIVER, MARGUERITE-PORTAL BIOPSY FNAA. Lymph NodeReceived 15 mls in cytorich red; prepared 4 cytospins, cell block (A2) (cellblock placed in formalin at 15:35 on 11/30/2022)Performed.[facility], Department of Pathology, [address] [place] [address], [facility], [facility] of Pathology, [address] [place] [address], [facility]fyxS[facility], Department of Pathology, [address] [place] [address], KNGSSJBZIUWQP METABOLIC [id number] 05:09:17 Test Item Value Reference Range Interpretation [...] not appl icable for dialysis patien ts Belt Repairer ID Nathalia ANGEL WC (HEMOGRAM ONLY)2022-12-01 04:18:12 Test [...] 0-0 (test code = 413) Fine Needle [id number] 17:00:24 Test Item Value Reference Range Interpretation Comments Cytology (test code = See Separate Report 2629) [facility] [id number] 17:00:24 Test Item Value Reference Range Interpretation Comments Cytology (test code = See Separate Report 2629) [facility] Needle [id number] 17:00:24 Test Item Value Reference Range Interpretation Comments Cytology (test code = See Separate Report 2629) [facility] NEEDLE ASPIRATE (FNA) [id number] 17:00:24 Test Item Value Reference Range Interpretation Comments CYTOLOGY RESULT POINTER See Separate Report (BEAKER) (test code = 2629) FL, FLUORO, NON-SPECIFIC, UP TO 1 [id number] 09:10:00Reason for exam:->[facility] : 1965 Sex: FAn imaging unit was utilized for this procedure. No radiologist interpretation was requested. Refer to the EMR for findings. Refer to PACS for any patient radiation dose information.COMPREHENSIVE METABOLIC [id number] 04:50:44 Test Item Value Reference Range Interpretation [...] not appl icable for dialysis patien ts Belt Repairer ID - MARCOPROTHROMBIN TIME/[id number] 04:28:12 Test Item Value Reference Range Interpretation [...] WBC 0-0 (test code = 413) PROTHROMBIN TIME/[id number] 23:20:55 Test Item Value Reference Range Interpretation [...] for dialysis patien ts HEPATOBILIARY IMAGING W/ [id number] 12:22:00Unlisted Reason for Exam - Click Yes and Enter Reason Below->YesUnlisted Reason for Exam->?chronic cholecystitis with dilated GBReason for exam:->?chronic cholecystitis with dilated GBCH[facility] : 1965 Sex: FFINAL REPORT PROCEDURE: HEPATOBILIARY SCAN with Sincalide Infusion CPT CODE: 53024 INDICATION: 57-year-old female, chronic cholecystitis with dilated [...] in response to sincalide stimulation. Signed: [facility] Verified Date/Time: 11/29/2022 12:22 :52 CBC (HEMOGRAM [...] 0-0 (test code = 413) COMPREHENSIVE METABOLIC [id number] 01:32:49 Test Item Value Reference Range Interpretation [...] not appl icable for dialysis patien ts Belt Repairer ID - DBCBC (HEMOGRAM ONLY)2022-11-28 01:07:42 Test [...] 0-0 H (test code = 413) Urine [id number] 10:01:17 Test Item Value Reference Range Interpretation Comments Result (test code = See comment 6463-4) EDILBERTO (test code = EDILBERTO) <10,000 col/mL Gram negative rods<10,000 col/mL skin eduardo [facility] HospitalU[facility] [id number] 10:01:17 Test Item Value Reference Range Interpretation Comments Result (test code = See comment 6463-4) EDILBERTO (test code = EDILBERTO) <10,000 col/mL Gram negative rods<10,000 col/mL skin eduardo [facility] HospitalU[facility] [id number] 10:01:17 Test Item Value Reference Range Interpretation Comments Result (test code = See comment 6463-4) EDILBERTO (test code = EDILBERTO) <10,000 col/mL Gram negative rods<10,000 col/mL skin eduardo [facility] HospitalCOMPREHENSIVE METABOLIC [id number] 06:17:40 Test Item Value Reference Range Interpretation [...] not appl icable for dialysis patien ts Belt Repairer ID - MARCOSpecimen slightly ictericCBC (HEMOGRAM ONLY)2022-11-27 [...] 0-0 (test code = 413) MR, ABDOMEN, [id number] 10:22:00Unlisted Reason for Exam - Click Yes and Enter Reason Below->YesUnlisted Reason for Exam->evaluate for choledocholithiasis [facility] : 1965 Sex: [...] hypertension, correlate clinically to exclude enterocolitis. Signed: Amarilys, Manish MDReport Verified Date/Time: 11/26/2022 10:22:09 Reading Location: [facility] B1 C013X Ortho Consult Reading Room BASIC METABOLIC [id number] 06:05:16 Test Item Value Reference Range Interpretation [...] not appl icable for dialysis patien ts Belt Repairer ID - MARIOSpecimen slightly ictericHEPATIC FUNCTION [id number] 06:04:28 Test Item Value Reference Range Interpretation [...] (test code = 33 U/L 6-55 347) Belt Repairer ID - Salmaimen slightly ictericPROTHROMBIN TIME/[id number] 05:52:20 Test Item Value Reference Range Interpretation [...] mechanical heart valves.CBC W/PLT COUNT & AUTO [id number] 05:33:16 Test Item Value Reference Range Interpretation [...] (BEAKER) (test code = 2801) U/S, ABDOMINAL, [id number] 17:23:00Abdomen limited area? Add comment if clarification is needed.->Right upper quadrant Reason for exam:- >cholecystitis possible choledocolithiasis [facility] : 1965 Sex: FFINAL REPORT U/S, ABDOMINAL, [...] 11/25/2022 17:23:59 Urinalysis w/Microscopic + Reflex to [id number] 11:12:01 Test Item Value Reference Range Interpretation Comments Color, UA (test code Brown = 5778-6) Clarity, UA (test Cloudy code = 5767-9) Specific [place], UA 1.050 1.001-1.035 H (test code = 5811-5) pH, UA (test code = 6.0 5.0-8.0 5803-2) Protein, UA (test 200 mg/dL Negative A code = 80679-7) Glucose, UA (test Negative Negative code = 365) Ketones, UA (test Trace Negative A code = 2514-8) Bilirubin, UA (test Negative Negative code = 99772-2) Blood, UA (test code Large Negative A = 66536-0) Nitrite, UA (test Negative Negative code = 5802-4) Leukocytes, UA (test Small Negative A code = 5799-2) Urobilinogen, UA 2 0.2-1.0 H (test code = 83045-6) RBC, UA (test code = See_Comment [Autom ated 95516-3) message] The system which generated this result [...] . Bacteria, UA (test Many code = 74000-2) Mucus (test code = Rare 8247-9) Squam Epithel, UA 10 See_Comment [Automate d (test code = 46946-6) messag e] The system which generated this result transmit joanna reference range : /HPF. The reference range was not used to interpret this result as normal/abnormal . Specimen Source (test code = 2795) EDILBERTO (test code = EDILBERTO) Belt Repairer ID - tech Lab Interpretation Abnormal (test code = 98241-1) [facility] Culture 2022-11-25 11:12:01 Test Item Value Reference Range Interpretation Comments Color, UA (test code Brown = 5778-6) Clarity, UA (test Cloudy code = 5767-9) Specific [place], UA 1.050 1.001-1.035 H (test code = 5811-5) pH, UA (test code = 6.0 5.0-8.0 5803-2) Protein, UA (test 200 mg/dL Negative A code = 43672-0) Glucose, UA (test Negative Negative code = 365) Ketones, UA (test Trace Negative A code = 2514-8) Bilirubin, UA (test Negative Negative code = 66552-9) Blood, UA (test code Large Negative A = 73267-0) Nitrite, UA (test Negative Negative code = 5802-4) Leukocytes, UA (test Small Negative A code = 5799-2) Urobilinogen, UA 2 0.2-1.0 H (test code = 58189-0) RBC, UA (test code = See_Comment [Autom ated 46130-0) message] The system which generated this result [...] . Bacteria, UA (test Many code = 04183-9) Mucus (test code = Rare 8247-9) Squam Epithel, UA 10 See_Comment [Automate d (test code = 42250-9) messag e] The system which generated this result transmit joanna reference range : /HPF. The reference range was not used to interpret this result as normal/abnormal . Specimen Source (test code = 2795) EDILBERTO (test code = EDILBERTO) Belt Repairer ID - tech Lab Interpretation Abnormal (test code = 08159-0) [facility] Reflex to Culture 2022-11-25 11:12:01 Test Item Value Reference Range Interpretation Comments Color, UA (test code Brown = 5778-6) Clarity, UA (test Cloudy code = 5767-9) Specific [place], UA 1.050 1.001-1.035 H (test code = 5811-5) pH, UA (test code = 6.0 5.0-8.0 5803-2) Protein, UA (test 200 mg/dL Negative A code = 05126-2) Glucose, UA (test Negative Negative code = 365) Ketones, UA (test Trace Negative A code = 2514-8) Bilirubin, UA (test Negative Negative code = 43172-5) Blood, UA (test code Large Negative A = 43963-6) Nitrite, UA (test Negative Negative code = 5802-4) Leukocytes, UA (test Small Negative A code = 5799-2) Urobilinogen, UA 2 0.2-1.0 H (test code = 95749-4) RBC, UA (test code = See_Comment [Autom ated 99977-8) message] The system which generated this result [...] . Bacteria, UA (test Many code = 47139-8) Mucus (test code = Rare 8247-9) Squam Epithel, UA 10 See_Comment [Automate d (test code = 05094-2) venkat e] The system which generated this result transmit joanna reference range : /HPF. The reference range was not used to interpret this result as normal/abnormal . Specimen Source (test code = 2795) EDILBERTO (test code = EDILBERTO) Belt Repairer ID - tech Lab Interpretation Abnormal (test code = 92767-6) [facility] UR[facility] [id number] 11:12:01 Test Item Value Reference Range Interpretation [...] = 516) SOURCE(BEAKER) (test code = 2795) Belt Repairer ID - techBILIRUBIN, [id number] 10:18:18 Test Item Value Reference Range Interpretation Comments BILIRUBIN DIRECT (BEAKER) (test 1.3 mg/dL 0.1-0.5 H code = 706) Belt Repairer ID - HENRIQUE GPROTHROMBIN [id number] 07:19:55 Test Item Value Reference Range Interpretation [...] (test code = 347) EGFR (BEAKER) 82 Interpretati on of eGFR (test code = [...] not appl icable for dialysis patien ts Belt Repairer ID - HENRIQUE GSpecimen slightly [id number] 07:09:53 Test Item Value Reference Range Interpretation Comments MAGNESIUM (BEAKER) (test code = 1.7 mg/dL 1.6-2.6 627) Belt Repairer ID - HENRIQUE [id number] 07:09:53 Test Item Value Reference Range Interpretation Comments PHOSPHORUS (BEAKER) (test code = 3.8 mg/dL 2.3-4.7 604) Belt Repairer ID - HENRIQUE GCBC W/PLT COUNT & AUTO [id number] 06:52:55 Test Item Value Reference Range Interpretation [...]
--- NOTE | 2023-07-29 13:58 | RAD REPORT ---
EXAM DESCRIPTION: CT - Head C Spine Cap Wo Con - 07/29/2023 1:39 pm CLINICAL HISTORY: Trauma, head and neck injury. Chest, abdomen and pelvis pain. TRAUMA COMPARISON: No comparisons TECHNIQUE: CT head without contrast. CT cervical spine without contrast with coronal and sagittal reformatted images. CT chest, abdomen and pelvis without contrast with coronal and sagittal reformatted images of the [facility] ne. All CT scans are performed using dose optimization technique as appropriate and may include automated exposure control or mA/KV adjustment according to patient size. FINDINGS: CT HEAD WITHOUT CONTRAST: No intracranial hemorrhage, hydrocephalus or extra-axial fluid collection. No areas of brain edema o r midline shift. The paranasal sinuses and mastoids are clear. The calvarium is intact. CT CERVICAL SPINE WITHOUT CONTRAST: No fracture or subluxation. Mild lower cervical degenerative changes. The prevertebral soft tissues a re normal in thickness. CT CHEST, ABDOMEN, PELVIS WITHOUT CONTRAST: NOTE: Lack of contrast is a significant limitation in the assessment of trauma related findings. Spec ifically, solid organ, vascular and bowel evaluation is significantly limited. Moderate left pleural effusion.Mild atelectasis in the left lung base. The right lung is grossly afshin r. Mild liver cirrhosis is seen. Common duct stent noted. Mild ascites. Mild splenomegaly. No free air. No displaced fractures seen. IMPRESSION: Negative for acute traumatic findings within the above detailed limitations. Moderate left pleural effusion. Mild ascites with liver cirrhosis.
[2023-07-29 14:02] LABS: Absolute Lymphocytes (CBC) 0.6 K/uL (0.7-4.9); Hematocrit 24.3 % (36.0-45.0); Lymphocytes % 10.7 % (15.3-44.8); MCV 101.2 fL (80-100); MPV 9.3 fL (7.6-11.3); Platelets 57 thou/uL (152-406)
[2023-07-29] MEDS ORDERED: NA CHLORIDE 0.9% 500 ML ONE (14:07)
[2023-07-29] MEDS ORDERED: FENTANYL CITR 100 MCG/2 ML ONE ×2 (14:07→16:51)
[2023-07-29 14:08] LABS: Protime INR 1.91
[2023-07-29] MEDS ORDERED: ONDANSETRON 4 MG/2 ML VIAL ONE (14:17)
--- NOTE | 2023-07-29 14:22 | EKG ---
Test Date: 2023-07-29 Test Time: 13:09:30 Sound Technician: [place] MEASUREMENT RESULTS: Intervals: Rate: 94 MS: QRSD: 78 QT: 352 QTc: 440 [place]: P: MS: QRS: 54 T: -62 INTERPRETIVE STATEMENTS: Sinus rhythm Nonspecific T wave abnormality Abnormal ECG Compared to ECG 07/17/2023 02:15:38 T-wave abnormality now present Myocardial infarct finding no longer present Electronically Signed On 07-29-23 14:21:43 [employer] IN[employer]UMENT MECH[employer] by Otto Grullon
[2023-07-29 14:26] LABS: Albumin 3.1 g/dL (3.4-5.0); Bilirubin Direct 0.5 mg/dL (0-0.2); Bilirubin Indirect, Calculated 1.2 mg/dL (0.2-0.8); Bilirubin Total 1.7 mg/dL (0.2-1.0); Protein, Total 5.8 g/dL (6.4-8.2); Troponin High Sensitivity 5.4 pg/mL (<58.9)
[2023-07-29 14:27] LABS: Magnesium 2.3 mg/dL (1.6-2.4); Potassium 4.3 mEq/L (3.5-5.1)
--- NOTE | 2023-07-29 14:35 | EDPHYS ---
Physician Documentation [facility] Name: Christelle Paredes Age: 58 yrs Sex: Female : 1965 Arrival Date: 07/29/2023 Time: 12:53 Bed 18 Private MD: ED Physician Davonte Johnson HPI: 07/29 12:59 This 58 yrs old Female presents to ER via EMS with complaints of Chest Pain, Fall jh7 Injury. 12:59 Onset: The symptoms/episode began/occurred acutely. 58-year-old female with a history jh7 of cirrhosis of the liver presents to the ER post fall occurring today. She reports that she is unsure of how she fell but ended up on the ground landing on her left chest/ribs and also hit her head. She denies LOC. She reports that she had a paracentesis and thoracentesis yesterday. Complains of left chest and rib pain today with no other symptoms.. Historical: - Allergies: 13:14 Meclizine; db 13:14 Vancomycin; db 13:14 meloxicam; db - PMHx: 13:14 Asthma; cirrhosis of liver; kidney issues with IV contrast; db - PSHx: 13:14 common bile duct stent-EGD; db - Immunization history:: Adult Immunizations unknown, Client reports receiving the 2nd dose of the Covid vaccine. - Social history:: Smoking status: Patient denies any tobacco usage or history of. ROS: 12:59 Constitutional: Negative for fever, chills, and weight loss, Eyes: Negative for injury, jh7 pain, redness, and discharge, 12:59 Neck: Negative for injury, pain, and swelling, Respiratory: Negative for shortness of breath, cough, wheezing, and pleuritic chest pain, Abdomen/GI: Negative for abdominal pain, nausea, vomiting, diarrhea, and constipation, Back: Negative for injury and pain, MS/Extremity: Negative for injury and deformity, Skin: Negative for injury, rash, and discoloration, 12:59 Cardiovascular: Positive for chest pain, with movement, 12:59 Neuro: Positive for headache, Negative for altered mental status, dizziness, syncope, visual changes, 12:59 All other systems are negative, Exam: 12:59 Constitutional: This is a well developed, well nourished patient who is awake, alert, jh7 and in no acute distress. Head/Face: Normocephalic, atraumatic. Eyes: Pupils equal round and reactive to light, extra-ocular motions intact. Lids and lashes normal. Conjunctiva and sclera are non-icteric and not injected. Cornea within normal limits. Periorbital areas with no swelling, redness, or edema. Neck: Trachea midline, no thyromegaly or masses palpated, and no cervical lymphadenopathy. Supple, full range of motion without nuchal rigidity, or vertebral point tenderness. No Meningismus. Cardiovascular: Regular rate and rhythm with a normal S1 and S2. No gallops, murmurs, or rubs. Normal PMI, no JVD. No pulse deficits. Respiratory: Lungs have equal breath sounds bilaterally, clear to auscultation and percussion. No rales, rhonchi or wheezes noted. No increased work of breathing, no retractions or nasal flaring. Abdomen/GI: Soft, non-tender, with normal bowel sounds. No distension or tympany. No guarding or rebound. No evidence of tenderness throughout. Back: No spinal tenderness. No costovertebral tenderness. Full range of motion. Skin: Warm, dry with normal turgor. Normal color with no rashes, no lesions, and no evidence of cellulitis. MS/ Extremity: Pulses equal, no cyanosis. Neurovascular intact. Full, normal range of motion. Neuro: Awake and alert, GCS 15, oriented to person, place, time, and situation. Motor strength 5/5 in all extremities. Sensory grossly intact. 12:59 Chest/axilla: Palpation: tenderness, that is moderate, of the left lateral anterior chest, that partially reproduces the patient's complaints, Vital Signs: 12:55 BP 79 / 45; db 12:59 BP 85 / 39; Pulse 85; Resp 22; Temp 98.8(O); Pulse Ox 94% on R/A; Weight 93.89 kg; db Height 5 ft. 8 in. ; Pain 7/10; 13:00 BP 85 / 39; Pulse 99; Resp 18; Pulse Ox 99% on 2 lpm NC; db 13:30 BP 84 / 55; Pulse 97; Resp 18; Pulse Ox 96% on 2 lpm NC; db 14:00 BP 87 / 30; Pulse 98; Resp 22; Pulse Ox 100% on 2 lpm NC; db 14:30 BP 99 / 47; Pulse 93; Resp 22; Pulse Ox 100% on 2 lpm NC; db 15:50 BP 91 / 45; Pulse 106; Resp 16; Pulse Ox 100% on 2 lpm NC; db 16:00 BP 83 / 48; Pulse 100; Resp 20; Pulse Ox 100% on 2 lpm NC; db 16:30 BP 83 / 43; Pulse 102; Resp 20; Pulse Ox 98% ; db 17:00 BP 81 / 42; Pulse 100; Resp 18; Pulse Ox 99% on 2 lpm NC; db 12:59 Body Mass Index 31.47 (93.89 kg, 172.72 cm) db 12:59 Pain Scale: Adult db 12:55 NOTIFIED PROVIDER HADASH. WILL REPEAT db 13:30 MAP 63 db 14:00 MAP 46 db 15:50 MAP 58 db 16:00 MAP 59 PROVIDER NOTIFIED db 16:30 MAP 83. NOTIFIED PROVIDER db 17:00 NOTIFIED PROVIDER HADASH. MAP 55 db MDM: 12:59 Patient medically screened. 7 15:00 Differential diagnosis: viral Infection, bacterial infection, Intracranial hemorrhage, [facility] syncope, volume depletion, generalized weakness, acute DE, pulmonary contusion, rib fracture. Data reviewed: vital signs, nurses notes, lab test result(s), EKG, radiologic studies, CT scan. Consideration of Admission/Observation We will transfer for higher level of care. Management of patient was discussed with the following: Hospitalist: Dr. Velasquez. I considered the following discharge prescriptions or medication management in the emergency department Medications were administered in the Emergency Department. See MAR. Care significantly affected by the following chronic conditions: Liver Disease. Counseling: I had a detailed discussion with the patient and/or guardian regarding the historical points, exam findings, and any diagnostic results supporting the discharge/admit diagnosis, the need to transfer to another facility, for higher level of care, [facility] does not immediately have the required specialist. Response to treatment: the patient's symptoms have mildly improved after treatment. 07/29 13:07 Order name: Basic Metabolic Panel; Complete Time: 14:27 [facility] 07/29 13:07 Order name: CBC with Diff; Complete Time: 17:19 [facility] 07/29 13:07 Order name: LFT's; Complete Time: 14:27 [facility] 07/29 13:07 Order name: Magnesium; Complete Time: 14:27 [facility] 07/29 13:07 Order name: NT PRO-BNP; Complete Time: 14:27 [facility] 07/29 13:07 Order name: PT-INR; Complete Time: 14:27 [facility] 07/29 13:07 Order name: Troponin HS; Complete Time: 14:27 [facility] 07/29 17:17 Order name: CBC Smear Scan; Complete Time: 17:19 [facility] 07/29 13:07 Order name: CT Traumagram (Head C Spine CAP wo con); Complete Time: 14:00 [facility] 07/29 13:07 Order name: EKG; Complete Time: 13:07 [facility] 07/29 13:07 Order name: Cardiac monitoring; Complete Time: 14:26 [facility] 07/29 13:07 Order name: EKG - Nurse/Tech; Complete Time: 14:26 [facility] 07/29 13:07 Order name: IV Saline Lock; Complete Time: 14:26 [facility] 07/29 13:07 Order name: Labs collected and sent; Complete Time: 14:26 [facility] 07/29 13:07 Order name: O2 Per Protocol; Complete Time: 14:26 [facility] 07/29 13:07 Order name: O2 Sat Monitoring; Complete Time: 14:26 [facility] EC:09 Rate is 94 beats/min. Rhythm is regular. QRS [place] [employer] is Normal. QRS interval is normal at 7 78 msec. QT interval is normal at 352 msec. Clinical impression: Accelerated junctional rhythm. Administered Medications: 14:05 Drug: NS 0.9% IV 500 ml IV at bolus once Route: IV; Rate: bolus; Site: right wrist; db 14:52 Follow up: Response: No adverse reaction; IV Status: Completed infusion; IV Intake: db 500ml 14:05 Drug: fentaNYL (PF) IVP 25 mcg IVP once Route: IVP; Site: right wrist; db 14:52 Follow up: Response: No adverse reaction db 14:05 Drug: Ondansetron IVP 4 mg IVP once; over 2 minutes Route: IVP; Site: right wrist; db 14:52 Follow up: Response: No adverse reaction db 15:30 Drug: midodrine 10 mg PO once Route: PO; db 16:45 Follow up: Response: No adverse reaction db 15:52 Drug: Albumin IVPB 25 grams 100 ml IVPB once; (Note: Albumin 25% concentration) Volume: db 100 ml; Route: IVPB; Site: right wrist; 16:45 Follow up: Response: No adverse reaction; IV Status: Completed infusion; IV Intake: db 100ml 16:41 Drug: fentaNYL (PF) IVP 25 mcg IVP once Route: IVP; Site: right wrist; db 17:08 Follow up: Response: No adverse reaction db 16:41 Drug: NS 0.9% IV 1000 ml IV at 125 ml/hr continuous Route: IV; Rate: 125 ml/hr; Site: db right wrist; 17:13 Follow up: Response: No adverse reaction; IV Status: Infusion continued upon transfer db Disposition Summary: 07/29/23 14:35 Transfer Ordered Notes: Transfer Location: [place] [id number] Reason: Higher level of care 7 Condition: Fair jh7 Problem: chronic jh7 Symptoms: have worsened jh7 Accepting Physician: Dr. Velasquez, hospitalist(07/29/23 17:29) db Diagnosis - Hypotension, unspecified jh7 - Acute kidney failure, unspecified jh7 - Pleural effusion in other conditions classified elsewhere jh7 - Muscle weakness (generalized) jh7 - Chest pain, unspecified jh7 - Other cirrhosis of liver [facility] Forms: - Medication Reconciliation Form 7 - SBAR form [facility] Signatures: Dispatcher [employer] Monica Silverman, RFID SYSTEMS ENGINEER RFID SYSTEMS ENGINEER [facility] Willa Caceres, RN RN db Corrections: (The following items were deleted from the chart) 14:55 14:35 accepting MD reed [facility] 17:29 14:55 Dr. Velasquez, hospitalist [facility] db
--- NOTE | 2023-07-29 14:35 | ER ---
Nurse's Notes [facility] Name: Christelle Paredes Age: 58 yrs Sex: Female : 1965 Arrival Date: 07/29/2023 Time: 12:53 Bed 18 Private MD: Diagnosis: Hypotension, unspecified;Acute kidney failure, unspecified;Pleural effusion in other conditions classified elsewhere;Muscle weakness (generalized);Chest pain, unspecified;Other cirrhosis of liver Presentation: 07/29 12:59 Chief complaint: EMS states: TODAY FELL AND HURT RIGHT RIB CAGE. 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 COMING FROM HOME. [facility]. Coronavirus screen: Client denies travel out of the [place] in the last 14 days. At this time, the client does not indicate any symptoms associated with coronavirus-19. Ebola Screen: Patient negative for fever greater than or equal to 101.5 degrees Fahrenheit, and additional compatible Ebola Virus Disease symptoms Patient denies exposure to infectious person. Patient denies travel to an Ebola-affected area in the 21 days before illness onset. No symptoms or risks identified at this time. Initial Sepsis Screen: Does the patient meet any 2 criteria? RR > 20 per min. Systolic BP < 90 mmHg. Yes Does the patient have a suspected source of infection? No. Patient's initial sepsis screen is negative. Risk Assessment: Do you want to hurt yourself or someone else? Patient reports no desire to harm self or others. Onset of symptoms was July 29, 2023. 12:59 Method Of Arrival: EMS: [facility] db 12:59 Acuity: FRANKLIN 2 db Triage Assessment: 13:14 General: Appears in no apparent distress. comfortable, Behavior is calm, cooperative. db Pain: Complains of pain in chest. Neuro: Level of Consciousness is awake, alert, obeys commands, Oriented to person, place, time, situation. Cardiovascular: Reports chest pain, Capillary refill < 3 seconds. Injury Description: RIGHT RIB INJURY. Historical: - Allergies: 13:14 Meclizine; db 13:14 Vancomycin; db 13:14 meloxicam; db - PMHx: 13:14 Asthma; cirrhosis of liver; kidney issues with IV contrast; db - PSHx: 13:14 common bile duct stent-EGD; db - Immunization history:: Adult Immunizations unknown, Client reports receiving the 2nd dose of the Covid vaccine. - Social history:: Smoking status: Patient denies any tobacco usage or history of. Screenin:17 [facility] ED Fall Risk Assessment (Adult) History of falling in the last 3 months, db including since admission Yes- single mechanical fall (1 pt) Confusion or Disorientation No (0 pts) Intoxicated or Sedated No (0 pts) Impaired Gait No (0 pts) Mobility Assist Device Used No (0 pt) Altered Elimination No (0 pt) Score/Fall Risk Level 0 - 2 = Low Risk Oriented to surroundings, Maintained a safe environment. Abuse screen: Denies threats or abuse. Denies injuries from another. Nutritional screening: No deficits noted. Tuberculosis screening: No symptoms or risk factors identified. Assessment: 13:16 Reassessment: Patient appears in no apparent distress at this time. Patient and/or db family updated on plan of care and expected duration. Pain level reassessed. Patient is alert, oriented x 3, equal unlabored respirations, skin warm/dry/pink. Pain: Complains of pain in chest Pain radiates to chest Pain began suddenly. 13:18 Reassessment: PT TO CT. db 13:35 Reassessment: PATIENT RETURNED TO ROOM FROM CT. db 14:53 Reassessment: Patient appears in no apparent distress at this time. Patient and/or db family updated on plan of care and expected duration. Pain level reassessed. Patient is alert, oriented x 3, equal unlabored respirations, skin warm/dry/pink. Patient states feeling better. Neuro: Level of Consciousness is awake, alert, obeys commands, Oriented to person, place, time, situation, Appropriate for age. Respiratory: Airway is patent Respiratory effort is even, unlabored, Respiratory pattern is regular, symmetrical. 15:23 Reassessment: CALLED TO GIVE NURSE REPORT. NURSE DID NOT ANSWER. db 15:48 Reassessment: CALLED FLOOR TO GIVE PATIENT REPORT NO ANSWER. db 16:10 Reassessment: CALLED TO GIVE REPORT TO UNIT 12TH FLOOR. NO ANSWER. db 16:15 Reassessment: CALLED TRANSFER CENTER TO GIVE PT REPORT DUE TO UNIT NOT ANSWERING PHONE db CALL. UNABLE TO GIVE REPORT. I WAS TRANSFERRED TO 12TH FLOOR RECEIVING RN. ATTEMPTED TO GIVE REPORT. NURSE STATED WAS GOING TO GET A PEN AND PLACED ME ON A 10 MIN HOLD. 16:27 Reassessment: REPORT GIVEN TO STEFANO BRAGA. db 17:10 Reassessment: Patient appears in no apparent distress at this time. Patient and/or db family updated on plan of care and expected duration. Pain level reassessed. Patient is alert, oriented x 3, equal unlabored respirations, skin warm/dry/pink. EMS HERE FOR PT TRANSPORT. Vital Signs: 12:55 BP 79 / 45; db 12:59 BP 85 / 39; Pulse 85; Resp 22; Temp 98.8(O); Pulse Ox 94% on R/A; Weight 93.89 kg; db Height 5 ft. 8 in. ; Pain 7/10; 13:00 BP 85 / 39; Pulse 99; Resp 18; Pulse Ox 99% on 2 lpm NC; db 13:30 BP 84 / 55; Pulse 97; Resp 18; Pulse Ox 96% on 2 lpm NC; db 14:00 BP 87 / 30; Pulse 98; Resp 22; Pulse Ox 100% on 2 lpm NC; db 14:30 BP 99 / 47; Pulse 93; Resp 22; Pulse Ox 100% on 2 lpm NC; db 15:50 BP 91 / 45; Pulse 106; Resp 16; Pulse Ox 100% on 2 lpm NC; db 16:00 BP 83 / 48; Pulse 100; Resp 20; Pulse Ox 100% on 2 lpm NC; db 16:30 BP 83 / 43; Pulse 102; Resp 20; Pulse Ox 98% ; db 17:00 BP 81 / 42; Pulse 100; Resp 18; Pulse Ox 99% on 2 lpm NC; db 12:59 Body Mass Index 31.47 (93.89 kg, 172.72 cm) db 12:59 Pain Scale: Adult db 12:55 NOTIFIED PROVIDER FRANK. WILL REPEAT db 13:30 MAP 63 db 14:00 MAP 46 db 15:50 MAP 58 db 16:00 MAP 59 PROVIDER NOTIFIED db 16:30 MAP 83. NOTIFIED PROVIDER db 17:00 NOTIFIED PROVIDER FRANK. MAP 55 db ED Course: 12:58 Patient arrived in ED. db 12:59 [facility]connell [facility] 12:59 Davonte Johnson MD is Attending Physician. [facility] 13:11 EKG done, by ED staff, reviewed by Monica VARGAS. db 13:14 Triage completed. db 13:14 Arm band placed on Patient placed in an exam room. db 13:17 Patient has correct armband on for positive identification. Bed in low position. Call db light in reach. Side rails up X 1. Client placed on continuous cardiac and pulse oximetry monitoring. NIBP monitoring applied. Warm blanket given. 13:18 Willa Caceres, RN is Primary Nurse. db 13:41 CT Traumagram (Head C Spine CAP wo con) In Process Unspecified. EDMS 13:55 Inserted saline lock: 22 gauge in right wrist, using aseptic technique. Blood collected.db 14:37 initiated a transfer with ROE Valencia from the [facility] Transfer [place]. eb 14:54 connected the hospitalist insulation manager for [facility] with Monica Vasquez for patient eb transfer consultation. 15:05 administrative approval given by ROE Valencia/ patient has been accepted to [facility] eb 12 tower bed 1218/ Dr Maura Velasquez has accepted the patient in transfer/ report to be called to [phone]. 17:28 Provided Education on: TRANSFERRED. db 17:28 No provider procedures requiring assistance completed. Patient transferred, IV remains db in place. Oxygen administration via nasal cannula \T\ 2L/min Response to oxygen therapy: symptoms improved. Administered Medications: 14:05 Drug: NS 0.9% IV 500 ml IV at bolus once Route: IV; Rate: bolus; Site: right wrist; db 14:52 Follow up: Response: No adverse reaction; IV Status: Completed infusion; IV Intake: db 500ml 14:05 Drug: fentaNYL (PF) IVP 25 mcg IVP once Route: IVP; Site: right wrist; db 14:52 Follow up: Response: No adverse reaction db 14:05 Drug: Ondansetron IVP 4 mg IVP once; over 2 minutes Route: IVP; Site: right wrist; db 14:52 Follow up: Response: No adverse reaction db 15:30 Drug: midodrine 10 mg PO once Route: PO; db 16:45 Follow up: Response: No adverse reaction db 15:52 Drug: Albumin IVPB 25 grams 100 ml IVPB once; (Note: Albumin 25% concentration) Volume: db 100 ml; Route: IVPB; Site: right wrist; 16:45 Follow up: Response: No adverse reaction; IV Status: Completed infusion; IV Intake: db 100ml 16:41 Drug: fentaNYL (PF) IVP 25 mcg IVP once Route: IVP; Site: right wrist; db 17:08 Follow up: Response: No adverse reaction db 16:41 Drug: NS 0.9% IV 1000 ml IV at 125 ml/hr continuous Route: IV; Rate: 125 ml/hr; Site: db right wrist; 17:13 Follow up: Response: No adverse reaction; IV Status: Infusion continued upon transfer db Medication: 17:28 VIS not applicable for this client. db Intake: 14:52 IV: 500ml; Total: 500ml. db 16:45 IV: 100ml; Total: 600ml. db Outcome: 14:35 ER care complete, transfer ordered by MD. reed 17:28 Transferred by [facility] to [facility], Transfer form completed. db 17:28 Condition: stable 17:28 Instructed on the need for transfer, 17:29 Patient left the ED. db Signatures: Dispatcher [employer] EDMS Radha Sorenson Jennifer, WAIVER ANALYST WAIVER ANALYST 7 Willa Caceres, RN RN db Corrections: (The following items were deleted from the chart) 15:28 15:27 Inserted saline lock: 22 gauge in right wrist, using aseptic technique. Blood db collected. db 15:29 15:23 Reassessment: CALLED TO GIVE NURSE REPORT. db db 16:25 16:15 Reassessment: CALLED TRANSFER CENTER TO GIVE PT REPORT DUE TO UNIT NOT ANSWERING db PHONE CALL. UNABLE TO GIVE REPORT db 17:28 14:00 BP 87 / 30; Pulse 98bpm; Resp 22bpm; Pulse Ox 100% 2 lpm Nasal Cannula; db db 17:28 13:30 BP 84 / 55; Pulse 97bpm; Resp 18bpm; Pulse Ox 96% 2 lpm Nasal Cannula; db db 17:28 16:00 BP 83 / 48; Pulse 100bpm; Resp 20bpm; Pulse Ox 100% 2 lpm Nasal Cannula; db db 17:28 15:50 BP 91 / 45; Pulse 106bpm; Resp 16bpm; Pulse Ox 100% 2 lpm Nasal Cannula; db db 17:28 16:30 BP 83 / 43; Pulse 102bpm; Resp 20bpm; Pulse Ox 98%; db db 17:28 17:00 BP 81 / 42; Pulse 100bpm; Resp 18bpm; Pulse Ox 99% 2 lpm Nasal Cannula; db db
[2023-07-29] MEDS ORDERED: ALBUMIN HUMAN 25% 50 ML IV ONE ×2 (15:22→16:03)
[2023-07-29] MEDS ORDERED: MIDODRINE HCL 5 MG TABLET ONE (16:02)
[2023-07-29] MEDS ORDERED: NA CHLORIDE 0.9% 1,000 ML ONE (16:52)
[2023-07-29 17:16] LABS: Blood Morphology Comment NOT SEEN (NOT SEEN); Platelet Estimate DECR; White Blood Cell Scan ON (OK)
[2023-07-29 17:47] VITALS: TEMP 98.8
[2023-07-29 18:02] VITALS: BP 81/42; O2SAT 99
== END 2023-07-29 17:29 | disposition short-term general hospital (02) ==
LOC: ER 12:53
DX: I95.9 Hypotension, unspecified (principal); J90 Pleural effusion, not elsewhere classified; N17.9 Acute kidney failure, unspecified; M62.81 Muscle weakness (generalized); K74.69 Other cirrhosis of liver; Z88.1 Allergy status to other antibiotic agents; Z88.6 Allergy status to analgesic agent; Z88.8 Allergy status to other drugs, medicaments and biological substances
CPT/HCPCS: 96365; 96361; 93005; 85025; 80048; 36415; 83735; 85610; 80076; 84484; 83880; 70450; 71250; 72125; 96375; 99285; J3010 ×2; J2405; P9047 ×2; J7040; J7030

== ENCOUNTER → 2023-10-13 | Emergency (ER) | payer BC ==
[~2023-10-13] MED LIST: MORPHINE 4 MG/ML SYR ONE; ONDANSETRON 4 MG/2 ML VIAL ONE; methocarbamoL 750 MG TAB ONE
--- NOTE | 2023-10-13 07:56 | ER ---
Nurse's Notes [facility] Name: Christelle Paredes Age: 58 yrs Sex: Female : 1965 Arrival Date: 10/13/2023 Time: 03:12 Bed 8 Private MD: Diagnosis: Fall on same level, unspecified;Acute fall at home, acute closed head injury, right ankle sprain history of liver transplant Presentation: 10/13 03:20 Chief complaint: Patient states: "I was walking to the bed when I fell backwards and jw7 hit my head. My Doctor told me to come to the ER if I fell or had any type of trauma because I had a Liver Transplant on September 03, 2023". Coronavirus screen: At this time, the client does not indicate any symptoms associated with coronavirus-19. Ebola Screen: No symptoms or risks identified at this time. Initial Sepsis Screen: Does the patient meet any 2 criteria? No. Patient's initial sepsis screen is negative. Does the patient have a suspected source of infection? No. Patient's initial sepsis screen is negative. Risk Assessment: Do you want to hurt yourself or someone else? Patient reports no desire to harm self or others. Onset of symptoms was October 13, 2023. 03:20 Method Of Arrival: EMS: [facility] jw7 03:52 Acuity: [place] 3 ha1 Triage Assessment: 03:20 General: Appears in no apparent distress. uncomfortable, Behavior is calm, cooperative. jw7 Pain: Complains of pain in Right Side and Right Foot/Ankle Pain does not radiate. Pain currently is 7 out of 10 on a pain scale. Quality of pain is described as sharp, stabbing, throbbing, Pain began Is intermittent. EENT: No deficits noted. No signs and/or symptoms were reported regarding the EENT system. Neuro: Level of Consciousness is awake, alert, obeys commands, Oriented to person, place, time, situation. Cardiovascular: Capillary refill < 3 seconds Clubbing of nail beds is absent JVD is absent Patient's skin is warm and dry. Respiratory: Airway is patent Trachea midline Respiratory effort is even, unlabored, Respiratory pattern is regular, symmetrical. GI: Abdomen is round non-distended. : No deficits noted. No signs and/or symptoms were reported regarding the genitourinary system. Derm: Skin is healthy with good turgor, is fragile, Skin is dry, Skin is normal, Skin temperature is warm. Musculoskeletal: Circulation, motion, and sensation intact. Range of motion: limited in right ankle. Historical: - Allergies: 04:20 Meclizine; jw7 04:20 Vancomycin; jw7 04:20 meloxicam; jw7 04:20 "Muscle Relaxers"; jw7 - Home Meds: 04:20 Prograf 1 mg oral capsule 8 caps twice a day for prevention of liver transplant jw7 rejection [Active]; mycophenolate mofetil 250 mg oral capsule 2 caps 2 times per day for prevention of liver transplant rejection [Active]; prednisone 5 mg Oral tablet 3 tabs daily [Active]; nystatin 100,000 unit/mL Oral suspension 5 mL 4 times per day [Active]; acyclovir 800 mg Oral tablet 1 tab 2 times per day [Active]; atovaquone 750 mg/5 mL oral suspension 10 mL daily [Active]; torsemide 40 mg oral tablet 1 tab daily [Active]; famotidine 20 mg Oral tablet 1 tab daily [Active]; Calcium W/D 500 mg Tab 1 Tab three times a day [Active]; magnesium oxide 400 mg magnesium Oral tablet 2 tabs 3 times per day [Active]; ursodiol 300 mg Oral capsule 1 cap 2 times per day [Active]; metoprolol tartrate 25 mg Oral tablet 0.5 tab 2 times per day [Active]; atorvastatin 20 mg oral tablet 1 tab daily [Active]; gabapentin 100 mg oral capsule 2 caps 3 times per day [Active]; acetaminophen-codeine 300-30 mg Oral tablet 1 tab every 6 hours for PRN [Active]; hydroxyzine HCl 25 mg Oral tablet 1 tab every 6 hours for PRN [Active]; Humalog U-100 Insulin 100 unit/mL Sub-Q solution Before Meals, Sliding Scale [Active]; - PMHx: 04:20 Asthma; cirrhosis of liver; kidney issues with IV contrast; Hypertensive disorder; jw7 - PSHx: 04:20 Transplantation of liver; Cholecystectomy; jw7 - Immunization history:: Adult Immunizations up to date, Client reports having NOT received the Covid vaccine. Last tetanus immunization: up to date Pneumococcal vaccine is not up to date, Flu vaccine is not up to date. - Social history:: Smoking status: Patient denies any tobacco usage or history of. Patient/guardian denies using alcohol, street drugs, IV drugs. - Family history:: not pertinent. Screenin:20 [facility] ED Fall Risk Assessment (Adult) History of falling in the last 3 months, 7 including since admission Yes- physiologic fall (2 pts) Confusion or Disorientation No (0 pts) Intoxicated or Sedated No (0 pts) Impaired Gait Yes (1 pt) Mobility Assist Device Used No (0 pt) Altered Elimination No (0 pt) Score/Fall Risk Level 3 or more points = High Risk Oriented to surroundings, Maintained a safe environment, Educated pt \\T\\ family on fall prevention, incl call for assistance when getting out of bed, Provided non-skid footwear, Hourly rounding (assess needs \\T\\ fall precautionary measures) done. Abuse screen: Denies threats or abuse. Denies injuries from another. Nutritional screening: No deficits noted. Tuberculosis screening: No symptoms or risk factors identified. Assessment: 03:25 General: See Triage Assessment. [facility] 04:37 Reassessment: Patient appears in no apparent distress at this time. No changes from 7 previously documented assessment. Patient and/or family updated on plan of care and expected duration. Pain level reassessed. Patient is alert, oriented x 3, equal unlabored respirations, skin warm/dry/pink. 05:30 Reassessment: Patient and/or family updated on plan of care and expected duration. Pain ha1 level reassessed. Patient is alert, oriented x 3, equal unlabored respirations, skin warm/dry/pink. 06:30 Reassessment: Patient and/or family updated on plan of care and expected duration. Pain ha1 level reassessed. Patient is alert, oriented x 3, equal unlabored respirations, skin warm/dry/pink. 07:00 Reassessment: Patient appears in no apparent distress at this time. Patient and/or db family updated on plan of care and expected duration. Pain level reassessed. Patient is alert, oriented x 3, equal unlabored respirations, skin warm/dry/pink. 08:34 Reassessment: Patient appears in no apparent distress at this time. Patient and/or db family updated on plan of care and expected duration. Pain level reassessed. Patient is alert, oriented x 3, equal unlabored respirations, skin warm/dry/pink. PATIENT CALLING FAMILY FOR DC Patient states feeling better. Patient states symptoms have improved. Vital Signs: 03:13 BP 114 / 89; Pulse 102; Resp 18; Temp 98.6; Pulse Ox 99% on R/A; Weight 89.09 kg; ha1 Height 5 ft. 8 in. ; 04:37 BP 124 / 70; Pulse 95; Resp 16 S; Pulse Ox 94% on R/A; jw7 05:15 BP 119 / 74; Pulse 95; Resp 17 S; Pulse Ox 96% on R/A; ha1 07:00 BP 122 / 70; Pulse 100; Resp 17 S; Pulse Ox 92% on R/A; ha1 07:15 BP 122 / 65; Pulse 80; Resp 18; Pulse Ox 95% on R/A; db 09:19 BP 107 / 76; Pulse 98; Resp 18; Pulse Ox 95% on R/A; db 03:13 Body Mass Index 29.86 (89.09 kg, 172.72 cm) ha1 ED Course: 03:18 Patient arrived in ED. wm 03:19 Benedicto Ortega MD is Attending Physician. sp4 03:20 Arm band placed on. jw7 03:20 Patient has correct armband on for positive identification. Bed in low position. Call jw7 light in reach. Side rails up X2. 03:32 Inserted saline lock: 22 gauge in right antecubital area, using aseptic technique. oe 03:55 Triage completed. ha1 04:17 CT Traumagram (Head C Spine CAP wo con) In Process Unspecified. EDMS 05:47 Foot Right 3 View XRAY In Process Unspecified. EDMS 05:47 Ankle Right 3 View XRAY In Process Unspecified. EDMS 07:00 Report received from Mimi Cornejo RN. kc6 07:44 Willa Caceres RN is Primary Nurse. db 08:45 Ortho shoe applied to right foot. db 09:19 No provider procedures requiring assistance completed. IV discontinued, intact, db bleeding controlled, No redness/swelling at site. 09:19 Provided Education on: DISCHARGE. db Administered Medications: 03:40 Drug: Methocarbamol PO 1500 mg PO once Route: PO; ha1 04:00 Follow up: Response: No adverse reaction ha1 03:42 Drug: Ondansetron IVP 4 mg IVP once; over 2 minutes Route: IVP; Site: right forearm; ha1 04:00 Follow up: Response: No adverse reaction; Marked relief of symptoms ha1 03:44 Drug: morphine IVP or IV 4 mg IVP once over 4 mins Route: IVP; Infused Over: 4 mins; ha1 Site: right forearm; 04:00 Follow up: Response: No adverse reaction; Pain is decreased; RASS: Alert and Calm (0) ha1 Medication: 05:17 VIS not applicable for this client. ha1 Outcome: 07:56 Discharge ordered by . sp4 09:19 Discharged to home via wheelchair, with family, scot 09:19 Condition: stable 09:19 Discharge instructions given to patient, family, Instructed on discharge instructions, follow up and referral plans. 09:20 Patient left the ED. db Signatures: Dispatcher [employer] EDMS Srini Blankenship Wendy wm Waits, Jodi, RN RN jw7 Mimi Cornejo RN RN 1 Katie Greene RN RN kc6 Willa Caceres RN RN db Potepalov, Sergey, MD MD sp4 Corrections: (The following items were deleted from the chart) 04:20 03:52 Chief complaint: ha1 jw7 04:32 04:20 PSHx: common bile duct stent-EGD; jw7 jw7 04:32 04:20 PSHx: Liver Transplant (common bile duct stent-EGD); jw7 jw7 04:32 04:20 PSHx: Liver Transplant-Aug 2023 (common bile duct stent-EGD); jw7 jw7
--- NOTE | 2023-10-13 07:56 | EDPHYS ---
Physician Documentation [facility] Name: Christelle Paredes Age: 58 yrs Sex: Female : 1965 Arrival Date: 10/13/2023 Time: 03:12 Bed 8 Private MD: ED Physician Benedicto Ortega HPI: 10/13 03:19 This 58 yrs old Female presents to ER via Unassigned with complaints of Fall. [facility] 03:54 She is Reggie is a very pleasant 58-year-old female with history of liver transplant at [address] on 09/03/2023. Patient is still has epigastric level drain in place. Patient states she accidentally fell this morning backwards causing injury to the head, additionally patient is concerned about integrity of the liver transplant thus she presents here for imaging after acute fall. . Historical: - Allergies: 04:20 Meclizine; jw7 04:20 Vancomycin; jw7 04:20 meloxicam; jw7 04:20 "Muscle Relaxers"; jw7 - Home Meds: 04:20 Prograf 1 mg oral capsule 8 caps twice a day for prevention of liver transplant jw7 rejection [Active]; mycophenolate mofetil 250 mg oral capsule 2 caps 2 times per day for prevention of liver transplant rejection [Active]; prednisone 5 mg Oral tablet 3 tabs daily [Active]; nystatin 100,000 unit/mL Oral suspension 5 mL 4 times per day [Active]; acyclovir 800 mg Oral tablet 1 tab 2 times per day [Active]; atovaquone 750 mg/5 mL oral suspension 10 mL daily [Active]; torsemide 40 mg oral tablet 1 tab daily [Active]; famotidine 20 mg Oral tablet 1 tab daily [Active]; Calcium W/D 500 mg Tab 1 Tab three times a day [Active]; magnesium oxide 400 mg magnesium Oral tablet 2 tabs 3 times per day [Active]; ursodiol 300 mg Oral capsule 1 cap 2 times per day [Active]; metoprolol tartrate 25 mg Oral tablet 0.5 tab 2 times per day [Active]; atorvastatin 20 mg oral tablet 1 tab daily [Active]; gabapentin 100 mg oral capsule 2 caps 3 times per day [Active]; acetaminophen-codeine 300-30 mg Oral tablet 1 tab every 6 hours for PRN [Active]; hydroxyzine HCl 25 mg Oral tablet 1 tab every 6 hours for PRN [Active]; Humalog U-100 Insulin 100 unit/mL Sub-Q solution Before Meals, Sliding Scale [Active]; - PMHx: 04:20 Asthma; cirrhosis of liver; kidney issues with IV contrast; Hypertensive disorder; jw7 - PSHx: 04:20 Transplantation of liver; Cholecystectomy; jw7 - Immunization history:: Adult Immunizations up to date, Client reports having NOT received the Covid vaccine. Last tetanus immunization: up to date Pneumococcal vaccine is not up to date, Flu vaccine is not up to date. - Social history:: Smoking status: Patient denies any tobacco usage or history of. Patient/guardian denies using alcohol, street drugs, IV drugs. - Family history:: not pertinent. ROS: 03:54 Constitutional: Negative for fever, chills, and weight loss, positive for fall, sp4 positive head injury Eyes: Negative for injury, pain, redness, and discharge, ENT: Negative for injury, pain, and discharge, Neck: Negative for injury, pain, and swelling, Cardiovascular: Negative for chest pain, palpitations, and edema, Respiratory: Negative for shortness of breath, cough, wheezing, and pleuritic chest pain, Abdomen/GI: Negative for abdominal pain, nausea, vomiting, diarrhea, and constipation, Back: Negative for injury and pain, MS/Extremity: Negative for injury and deformity, Skin: Negative for injury, rash, and discoloration, Neuro: Negative for headache, weakness, numbness, tingling, and seizure, 03:54 All other systems are negative, Exam: 03:54 Constitutional: This is a well developed, well nourished patient who is awake, alert, sp4 and in no acute distress. Head/Face: Normocephalic, atraumatic. Eyes: Pupils equal round and reactive to light, extra-ocular motions intact. Lids and lashes normal. Conjunctiva and sclera are not injected. Cornea within normal limits. Periorbital areas with no swelling, redness, or edema. ENT: Nares patent. No nasal discharge, no septal abnormalities noted. Tympanic membranes are normal and external auditory canals are clear. Oropharynx with no redness, swelling, or masses, exudates, or evidence of obstruction, uvula midline. Mucous membranes moist. Neck: Trachea midline, no thyromegaly or masses palpated, and no cervical lymphadenopathy. Supple, full range of motion without nuchal rigidity, or vertebral point tenderness. Chest/axilla: Normal chest wall appearance and motion. Nontender with no deformity. No lesions are appreciated. Cardiovascular: Regular rate and rhythm with a normal S1 and S2. No gallops, murmurs, or rubs. Normal PMI, no JVD. No pulse deficits. Respiratory: Lungs have equal breath sounds bilaterally, clear to auscultation and percussion. No rales, rhonchi or wheezes noted. No increased work of breathing, no retractions or nasal flaring. Abdomen/GI: Soft, non-tender, with normal bowel sounds. No distension or tympany. No guarding or rebound. No evidence of tenderness throughout. Back: No spinal tenderness. No costovertebral tenderness. Skin: Warm, dry with normal turgor. Normal color with no rashes, no lesions, and no evidence of cellulitis. MS/ Extremity: Pulses equal, no cyanosis. Neurovascular intact. Full, normal range of motion. Neuro: Awake and alert, GCS 15, oriented to person, place, time, and situation. Cranial nerves II-XII grossly intact. Motor strength 5/5 in all extremities. Sensory grossly intact. Psych: Awake, alert, with orientation to person, place and time. Behavior, mood, and affect are within normal limits Vital Signs: 03:13 BP 114 / 89; Pulse 102; Resp 18; Temp 98.6; Pulse Ox 99% on R/A; Weight 89.09 kg; ha1 Height 5 ft. 8 in. ; 04:37 BP 124 / 70; Pulse 95; Resp 16 S; Pulse Ox 94% on R/A; jw7 05:15 BP 119 / 74; Pulse 95; Resp 17 S; Pulse Ox 96% on R/A; ha1 07:00 BP 122 / 70; Pulse 100; Resp 17 S; Pulse Ox 92% on R/A; ha1 07:15 BP 122 / 65; Pulse 80; Resp 18; Pulse Ox 95% on R/A; db 09:19 BP 107 / 76; Pulse 98; Resp 18; Pulse Ox 95% on R/A; db 03:13 Body Mass Index 29.86 (89.09 kg, 172.72 cm) ha1 MDM: 03:20 Patient medically screened. sp4 04:59 ED course: CLINICAL HISTORY: fall, head injury, history of liver transplant COMPARISON: sp4 None. TECHNIQUE: CT HEAD CERVICAL SPINE CHESTABDOMEN PELVIS WITHOUT IV CONTRAST on 10/13/2023 3:20 AM CERTIFIED ADDICTION COUNSELOR This exam was performed according to our departmental dose-optimization program, which includes automated exposure control, adjustment of the mA and/or kV according to patient size and/or use of iterative reconstruction technique. FINDINGS: Brain: There is no acute hemorrhage, mass effect or midline shift. Brumfield-white differentiation is preserved. There is no hydrocephalus. There is no significant volume loss for age. The calvarium is intact. Orbits and globes are unremarkable. The paranasal sinuses are clear. Mastoid air cells are clear. Cervical Spine: There is no acute fracture. Alignment is anatomic. There is minimal bilateral facet arthritis. There is mild narrowing of the C6-7 disc. Vertebral body heights are preserved. Soft tissues are unremarkable. Chest: The heart is normal in size. There is no pericardial effusion. Intrathoracic lymph nodes are not enlarged. There are large bilateral pleural effusions with some loculation, slightly larger on the right. Central airways are patent. There is bibasilar atelectasis. Abdomen: Liver transplant was performed. A percutaneous biliary drain with an internal component is present. Gallbladder is not well seen. The pancreas and spleen are normal in appearance. Adrenal glands are normal. Kidneys are moderately atrophic. There is mild upper abdominal ascites. Abdominal aorta is normal in course and caliber without aneurysm. There is no free air. There is no retroperitoneal adenopathy. Pelvis: There is no bowel obstruction. Urinary bladder is unremarkable. There is large amount of free pelvic fluid. Uterus is normal in size. Appendix is poorly seen. Skeleton: There are no acute osseous findings. No suspicious bony lesions. IMPRESSION: No definite posttraumatic findings. Large pleural effusions with mostly pelvic ascites. Electronically signed by: Randal Ramirez MD 10/13/2023 04:45 AM. 07:54 ED course: CLINICAL HISTORY: foot pain COMPARISON: None. TECHNIQUE: XR FOOT 3 OR MORE sp4 VIEWS RIGHT 10/13/2023 5:04 AM CERTIFIED ADDICTION COUNSELOR FINDINGS: There is no fracture. Joint spaces are preserved. Soft tissues are unremarkable. IMPRESSION: No acute osseous findings. . ED course: CLINICAL HISTORY: right ankle injury COMPARISON: None. TECHNIQUE: XR ANKLE 3 OR MORE VIEWS RIGHT 10/13/2023 5:04 AM CERTIFIED ADDICTION COUNSELOR FINDINGS: There is no fracture. Joint spaces are preserved. There is mild diffuse soft tissue swelling. IMPRESSION: No acute osseous findings. . 07:59 Differential Diagnosis closed head injury . Data reviewed: vital signs, nurses notes, sp4 EMS record, old medical records, radiologic studies, CT scan, plain films. Consideration of Admission/Observation Escalation of care including admission/observation considered. ED course: Patient stable for discharge home. 10/13 03:20 Order name: CT Traumagram (Head C Spine CAP wo con) sp4 10/13 05:04 Order name: Foot Right 3 View XRAY sp4 10/13 05:04 Order name: Ankle Right 3 View XRAY sp4 10/13 08:00 Order name: Orthopedic shoe: Right lower extremity ORtho boot; Complete Time: 09:20 sp4 Administered Medications: 03:40 Drug: Methocarbamol PO 1500 mg PO once Route: PO; ha1 04:00 Follow up: Response: No adverse reaction ha1 03:42 Drug: Ondansetron IVP 4 mg IVP once; over 2 minutes Route: IVP; Site: right forearm; ha1 04:00 Follow up: Response: No adverse reaction; Marked relief of symptoms ha1 03:44 Drug: morphine IVP or IV 4 mg IVP once over 4 mins Route: IVP; Infused Over: 4 mins; ha1 Site: right forearm; 04:00 Follow up: Response: No adverse reaction; Pain is decreased; RASS: Alert and Calm (0) ha1 Disposition Summary: 10/13/23 07:56 Discharge Ordered Notes: Location: Home sp4 Problem: new sp4 Symptoms: have improved sp4 Condition: Stable sp4 Diagnosis - Fall on same level, unspecified sp4 - Acute fall at home, acute closed head injury, right ankle sprain history of liver sp4 transplant Followup: sp4 - With: Private Physician - When: 7 - 10 days - Reason: Recheck today's complaints Discharge Instructions: - Discharge Summary Sheet sp4 - Foot Sprain sp4 Forms: - Patient Portal Instructions sp4 Signatures: Dispatcher [employer] EDMS Cheryl Aguero RN RN jw7 Mimi Cornejo RN RN ha1 Benedicto Ortega MD MD sp4 Corrections: (The following items were deleted from the chart) 04:32 04:20 PSHx: common bile duct stent-EGD; jw7 jw7 04:32 04:20 PSHx: Liver Transplant (common bile duct stent-EGD); jw7 jw7 04:32 04:20 PSHx: Liver Transplant-Aug 2023 (common bile duct stent-EGD); jw7 jw7
--- NOTE | 2023-10-13 10:17 | RAD REPORT ---
EXAM DESCRIPTION: RAD - Foot Right 3 View - 10/13/2023 6:45 am CLINICAL HISTORY: Foot pain COMPARISON: None. TECHNIQUE: XR FOOT 3 OR MORE VIEWS RIGHT 10/13/2023 5:04 AM EXECUTIVE VICE PRESIDENT FINDINGS: There is no fracture. Joint spaces are preserved. Soft tissues are unremarkable. IMPRESSION: No acute osseous findings. Electronically signed by: Randal Ramirez MD 10/13/2023 06:20 AM EXECUTIVE VICE PRESIDENT Due to temporary technical issues with the PACS/Fluency reporting system, reports are being signed by the in house radiologist without review as a courtesy to ensure prompt reporting. The interpreting r adiologist is fully responsible for the content of the report.
[2023-10-13 10:19] VITALS: TEMP 98.6
--- NOTE | 2023-10-13 10:24 | RAD REPORT ---
EXAM DESCRIPTION: RAD - Ankle Right 3 View - 10/13/2023 6:44 am CLINICAL HISTORY: Right ankle injury COMPARISON: None. TECHNIQUE: XR ANKLE 3 OR MORE VIEWS RIGHT 10/13/2023 5:04 AM PUBLICITY AGENT FINDINGS: There is no fracture. Joint spaces are preserved. There is mild diffuse soft tissue swel ling. IMPRESSION: No acute osseous findings. Electronically signed by: Randal Ramirez MD 10/13/2023 06:26 AM PUBLICITY AGENT Due to temporary technical issues with the PACS/Fluency reporting system, reports are being signed by the in house radiologist without review as a courtesy to ensure prompt reporting. The interpreting r adiologist is fully responsible for the content of the report.
[2023-10-13 10:37] VITALS: BP 107/76; O2SAT 95
--- NOTE | 2023-10-13 10:45 | RAD REPORT ---
EXAM DESCRIPTION: CT - Head C Spine Cap Jennifer Gongora - 10/13/2023 7:15 am CLINICAL HISTORY: Fall, head injury, history of liver transplant COMPARISON: None. TECHNIQUE: CT HEAD CERVICAL SPINE CHEST ABDOMEN PELVIS WITHOUT IV CONTRAST on 10/13/2023 3:20 AM DOUBLER HELPER This exam was performed according to our departmental dose-optimization program, which includes autom ated exposure control, adjustment of the mA and/or kV according to patient size and/or use of iterati ve reconstruction technique. FINDINGS: Brain: There is no acute hemorrhage, mass effect or midline shift. Brumfield-white differentiat ion is preserved. There is no hydrocephalus. There is no significant volume loss for age. The calvarium is intact. Orbits and globes are unremarkable. The paranasal sinuses are clear. Mastoid air cells are clear. Cervical Spine: There is no acute fracture. Alignment is anatomic. There is minimal bilateral facet a rthritis. There is mild narrowing of the C6-7 disc. Vertebral body heights are preserved. Soft tissues are unre markable. Chest: The heart is normal in size. There is no pericardial effusion. Intrathoracic lymph nodes are n ot enlarged. There are large bilateral pleural effusions with some loculation, slightly larger on the right. Centr al airways are patent. There is bibasilar atelectasis. Abdomen: Liver transplant was performed. A percutaneous biliary drain with an internal component is p resent. Gallbladder is not well seen. The pancreas and spleen are normal in appearance. Adrenal gland s are normal. Kidneys are moderately atrophic. There is mild upper abdominal ascites. Abdominal aorta is normal in course and caliber without aneurysm. There is no free air. There is no r etroperitoneal adenopathy. Pelvis: There is no bowel obstruction. Urinary bladder is unremarkable. There is large amount of free pelvic fluid. Uterus is normal in size. Appendix is poorly seen. Skeleton: There are no acute osseous findings. No suspicious bony lesions. IMPRESSION: No definite posttraumatic findings. Large pleural effusions with mostly pelvic ascites. Electronically signed by: Randal Ramirez MD 10/13/2023 04:45 AM DOUBLER HELPER Due to temporary technical issues with the PACS/Fluency reporting system, reports are being signed by the in house radiologist without review as a courtesy to ensure prompt reporting. The interpreting r adiologist is fully responsible for the content of the report.
== END ==
LOC: ER 03:12
DX: S09.90XA Unspecified injury of head, initial encounter (principal); S93.401A Sprain of unspecified ligament of right ankle, initial encounter; W18.30XA Fall on same level, unspecified, initial encounter; Y92.009 Unspecified place in unspecified non-institutional (private) residence as the place of occurrence of the external cause; Z94.4 Liver transplant status; I10 Essential (primary) hypertension; Z88.3 Allergy status to other anti-infective agents; Z88.8 Allergy status to other drugs, medicaments and biological substances
CPT/HCPCS: 70450; 71250; 72125; 73630; 73610; J2405

== ENCOUNTER 2024-03-17 18:33 | Emergency (ER) | payer OTHER ==
[2024-03-17] MEDS ORDERED: ACETAMINOPHEN 325 MG TABLET ONE (20:00)
[2024-03-17] MEDS ORDERED: ONDANSETRON 4 MG/2 ML VIAL ONE (20:00)
[2024-03-17] MEDS ORDERED: MORPHINE 4 MG/ML SYR ONE (20:00)
[2024-03-17] MEDS ORDERED: Meropenem 1000 MG/VIAL IV ONE (20:00)
[2024-03-17] MEDS ORDERED: FAMOTIDINE 20 MG/2 ML VIAL IV ONE (20:01)
[2024-03-17] MEDS ORDERED: NA CHLORIDE 0.9% 100 ML ONE (20:01)
[2024-03-17] MEDS ORDERED: NA CHLORIDE 0.9% 2,000 ML ONE (20:01)
[2024-03-17 20:14] LABS: SARS-CoV-2 Antigen CONTROL BLUE LINE VIS/BG OK; SARS-CoV-2 Antigen Rapid Res Negative (Negative)
--- NOTE | 2024-03-17 20:15 | RAD REPORT ---
EXAM DESCRIPTION: CT - Head Brain Wo Cont - 03/17/2024 8:08 pm CLINICAL HISTORY: CONFUSED Headache, drowsiness, confusion COMPARISON: <Comparisons> TECHNIQUE: All CT scans are performed using dose optimization technique as appropriate and may inclu de automated exposure control or mA/KV adjustment according to patient size. FINDINGS: No intracranial hemorrhage, hydrocephalus or extra-axial fluid collection.No areas of brai n edema or evidence of midline shift. The paranasal sinuses and mastoids are clear. The calvarium is intact. IMPRESSION: No acute intracranial abnormality.
--- NOTE | 2024-03-17 20:21 | RAD REPORT ---
EXAM DESCRIPTION: CT - Chest Abd Pelvis Wo Con - 03/17/2024 8:08 pm CLINICAL HISTORY: Chest and abdomen pain. Abdominal distention;Pain COMPARISON: Head C Spine Cap Wo Con dated 10/13/2023 TECHNIQUE: A limited noncontrast study was performed. All CT scans are performed using dose optimization technique as appropriate and may include automated exposure control or mA/KV adjustment according to patient size. FINDINGS: The lungs are clear.No pleural or pericardial effusion.No intrathoracic adenopathy.Cholecy stectomy clips. Biliary stent is in place in the common duct. The liver is mildly prominent in size and mildly heterogenous. Spleen, pancreas, adrenal glands and k idneys are within normal limits. Mild inflammation is seen in the right upper quadrant and small bowel mesentery. No bowel obstruction or free air. No pathologic lymphadenopathy in the abdomen or pelvis. No worrisome osseous finding. IMPRESSION: Mild nonspecific inflammatory changes in the right upper quadrant as well as the small b owel mesenteric.No abscess, free air or bowel obstruction. Common duct stent is in place in expected positioning.
--- NOTE | 2024-03-17 20:23 | RAD REPORT ---
EXAM DESCRIPTION: RAD - Chest Single View - 03/17/2024 8:11 pm CLINICAL HISTORY: COUGH Chest pain. COMPARISON: <Comparisons> FINDINGS: Portable technique limits examination quality. The lungs are grossly clear. The heart is normal in size. No displaced fractures. IMPRESSION: No acute intrathoracic process suspected.
--- NOTE | 2024-03-17 20:52 | ER ---
Nurse's Notes [facility] Name: Christelle Paredes Age: 58 yrs Sex: Female : 1965 Arrival Date: 03/17/2024 Time: 18:33 Bed 19 Private MD: Diagnosis: Epigastric abdominal tenderness-mesentary stranding;Altered mental status, unspecified;Fever, unspecified;Liver transplant status;Elevated white blood cell count Presentation: 03/17 19:02 Chief complaint: Friend and/or Co-Worker states: Family member states patient is not tl4 answering questions appropriately. Pt c/o vomiting and abdominal pain since 1500 today. Pt does not give any additional details to this event. Family member is unsure if patient is taking medications. Coronavirus screen: At this time, the client does not indicate any symptoms associated with coronavirus-19. Ebola Screen: No symptoms or risks identified at this time. Initial Sepsis Screen: Does the patient meet any 2 criteria? No. Patient's initial sepsis screen is negative. Does the patient have a suspected source of infection? No. Patient's initial sepsis screen is negative. Risk Assessment: Do you want to hurt yourself or someone else? Patient reports no desire to harm self or others. Onset of symptoms was March 17, 2024 at 15:00. 19:02 Method Of Arrival: Wheelchair tl4 19:02 Acuity: [place] 2 tl4 Triage Assessment: 19:06 General: Appears ill, Behavior is flat, listless. Pain: Complains of pain in abdomen. tl4 EENT: No signs and/or symptoms were reported regarding the EENT system. Neuro: Level of Consciousness is awake, obeys commands, lethargic, Oriented to person, place, Weakness. Cardiovascular: Capillary refill < 3 seconds Patient's skin is warm and dry. Respiratory: Airway is patent Respiratory effort is even, unlabored, Respiratory pattern is regular, symmetrical. GI: Reports upper abdominal pain, vomiting. : No signs and/or symptoms were reported regarding the genitourinary system. Derm: No signs and/or symptoms reported regarding the dermatologic system. Musculoskeletal: No signs and/or symptoms reported regarding the musculoskeletal system. Historical: - Allergies: 19:05 Meclizine; tl4 19:05 meloxicam; tl4 19:05 Vancomycin; tl4 - PMHx: 19:05 Asthma; cirrhosis of liver; kidney issues with IV contrast; Hypertensive disorder; tl4 - PSHx: 19:05 Cholecystectomy; Transplantation of liver; tl4 - Immunization history:: Adult Immunizations unknown. - Infectious Disease History:: Denies. - Social history:: Smoking status: Patient denies any tobacco usage or history of. Screenin:52 [facility] ED Fall Risk Assessment (Adult) History of falling in the last 3 months, pc2 including since admission No falls in past 3 months (0 pts) Confusion or Disorientation No (0 pts) Intoxicated or Sedated No (0 pts) Impaired Gait No (0 pts) Mobility Assist Device Used No (0 pt) Altered Elimination No (0 pt) Score/Fall Risk Level 0 - 2 = Low Risk Oriented to surroundings, Hourly rounding (assess needs \T\ fall precautionary measures) done. Abuse screen: Denies threats or abuse. Denies injuries from another. Nutritional screening: No deficits noted. Tuberculosis screening: No symptoms or risk factors identified. Assessment: 19:48 General: Appears in no apparent distress. uncomfortable, obese, well developed, pc2 Behavior is calm, cooperative. Pain: Complains of pain in abdomen and right upper quadrant Pain currently is 7 out of 10 on a pain scale. Quality of pain is described as aching, sharp, Noted to be grimacing. Neuro: Level of Consciousness is awake, alert, obeys commands, Oriented to person, place, time, situation. Cardiovascular: Patient's skin is warm and dry. Respiratory: Airway is patent Respiratory effort is even, unlabored, Respiratory pattern is regular. GI: Abdomen is round non-distended. : No signs and/or symptoms were reported regarding the genitourinary system. EENT: No signs and/or symptoms were reported regarding the EENT system. Derm: No signs and/or symptoms reported regarding the dermatologic system. Musculoskeletal: No signs and/or symptoms reported regarding the musculoskeletal system. 20:28 Reassessment: Patient appears in no apparent distress at this time. No changes from pc2 previously documented assessment. 21:48 Reassessment: Patient and/or family updated on plan of care and expected duration. Pain pc2 level reassessed. Patient is alert, oriented x 3, equal unlabored respirations, skin warm/dry/pink. 23:09 Reassessment: Patient appears in no apparent distress at this time. Patient is alert, pc2 oriented x 3, equal unlabored respirations, skin warm/dry/pink. 03/18 00:02 Reassessment: Pt requesting additional pain med at this time. Dr. Johnson made aware. pc2 VS updated. New order received. Vital Signs: 03/17 19:02 BP 138 / 87; Pulse 108; Resp 12; Temp 100.1(O); Pulse Ox 97% on R/A; Weight 94.35 kg tl4 (M); Height 5 ft. 8 in. ; 19:15 BP 126 / 80; Pulse 104; Resp 14; Pulse Ox 96% on R/A; pc2 21:00 BP 103 / 62; Pulse 90; Resp 16; Temp 99.9; Pulse Ox 100% on R/A; pc2 23:46 BP 97 / 65; Pulse 86; Resp 16; Pulse Ox 98% on R/A; pc2 03/18 00:10 BP 103 / 51; Pulse 88; Resp 16; Temp 98.9(O); Pulse Ox 96% ; pc2 03/17 19:02 Body Mass Index 31.63 (94.35 kg, 172.72 cm) tl4 [place] Coma Score: 03/17 19:32 Eye Response: spontaneous(4). Motor Response: obeys commands(6). Verbal Response: lorna oriented(5). Total: 15. ED Course: 18:36 Patient arrived in ED. tl4 18:44 [facility] Miller [facility]. sb4 18:44 Otf Alvarez MD is Attending Physician. sb4 18:49 Ramirez Olivia, STEFANO is Primary Nurse. rs5 19:05 Triage completed. tl4 19:05 Davonte Johnson MD is Attending Physician. lorna 19:07 Arm band placed on right wrist. tl4 19:52 Strep Sent. pc2 19:52 Flu Sent. pc2 19:52 SARS RAPID Sent. pc2 20:00 Patient has correct armband on for positive identification. Placed in gown. Bed in low pc2 position. Call light in reach. Side rails up X2. Provided Education on: POC and time frame. 20:00 Inserted saline lock: 20 gauge in right forearm, using aseptic technique. Blood pc2 collected. 20:00 First set of blood cultures drawn by me, Second set of blood cultures drawn by me. pc2 20:10 CT Chest Abdomen Pelvis W/O Contrast In Process Unspecified. EDMS 20:10 CT Head Brain wo Cont In Process Unspecified. EDMS 20:13 XRAY Chest (1 view) In Process Unspecified. EDMS 20:43 Basic Metabolic Panel Sent. pc2 20:44 LFT's Sent. pc2 20:44 Magnesium Sent. pc2 20:44 NT PRO-BNP Sent. pc2 20:44 Troponin HS Sent. pc2 20:44 AMMONIA Sent. pc2 20:44 Lipase Sent. pc2 20:44 Blood Culture Adult (2) Sent. pc2 20:44 CBC with Diff Sent. pc2 20:44 CMP Sent. pc2 20:44 Lactate w/ 2H reflex if indic. Sent. pc2 20:44 Protime (+inr) Sent. pc2 20:44 Ptt, Activated Sent. pc2 20:44 Inserted saline lock: 22 gauge in left wrist, using aseptic technique. Blood collected. oe 20:48 No provider procedures requiring assistance completed. pc2 21:32 initiated transfer with minnie at [facility]. af3 23:45 Report given to STEFANO George at receiving facility. pc2 03/18 00:13 Report given to EMS at bedside. pc2 00:15 Pt accepted to [facility] \T\[id number], admin approval given by minnie starr. Accepting [address] \T\[id number]. Number for nurse to nurse report [phone]. [facility] to transfer pt. 00:27 Patient transferred, IV remains in place. pc2 Administered Medications: 03/17 20:20 Drug: NS 0.9% IV 1000 ml IV at 1 bolus Per protocol; 1000 mL bolus Route: IV; Rate: 1 pc2 bolus; Site: right forearm; 21:30 Follow up: Response: No adverse reaction; IV Status: Completed infusion; IV Intake: pc2 1000ml 20:20 Drug: Acetaminophen PO 650 mg PO once Route: PO; pc2 21:00 Follow up: Response: No adverse reaction pc2 20:21 Drug: NS 0.9% IV 1000 ml IV at 1 bolus Per protocol; 1000 mL bolus Route: IV; Rate: 1 pc2 bolus; Site: right forearm; 21:30 Follow up: Response: No adverse reaction; IV Status: Completed infusion; IV Intake: pc2 1000ml 20:25 Drug: Meropenem IV 1 grams IV at per protocol once; (mix in NS 100 mL) Route: IV; Rate: pc2 per protocol; Site: right forearm; 21:00 Follow up: Response: No adverse reaction; IV Status: Completed infusion; IV Intake: pc2 100ml 20:28 Drug: Ondansetron IVP 4 mg IVP once; over 2 minutes Route: IVP; Site: right forearm; pc2 21:00 Follow up: Response: No adverse reaction pc2 20:29 Drug: morphine IVP or IV 4 mg IVP once over 4 mins Route: IVP; Infused Over: 4 mins; pc2 Site: right forearm; 21:00 Follow up: Response: No adverse reaction; RASS: Alert and Calm (0) pc2 20:30 Drug: Famotidine IVP 20 mg IVP once; dilute with 10 mL 0.9% NaCl; give over 2 minutes pc2 Route: IVP; Site: right forearm; 21:00 Follow up: Response: No adverse reaction pc2 22:00 Drug: NS 0.9% IV 1000 ml IV at 125 ml/hr continuous Route: IV; Rate: 125 ml/hr; Site: pc2 right forearm; 22:27 Follow up: Response: No adverse reaction pc2 03/18 00:21 Follow up: Response: No adverse reaction; IV Status: Completed infusion; Infusion pc2 continued upon transfer; IV Intake: 375ml 00:10 Drug: NS 0.9% IV 1000 ml IV at 1 bolus Per protocol; 1000 mL bolus Route: IV; Rate: 1 pc2 bolus; Site: right forearm; 00:21 Follow up: Response: No adverse reaction pc2 00:28 Follow up: IV Status: Infusion continued upon transfer pc2 Medication: 03/17 21:33 VIS not applicable for this client. pc2 Intake: 21:00 IV: 100ml; Total: 100ml. pc2 21:30 IV: 1000ml; Total: 1100ml. pc2 21:30 IV: 1000ml; Total: 2100ml. pc2 03/18 00:21 IV: 375ml; Total: 2475ml. pc2 Outcome: 03/17 20:51 ER care complete, transfer ordered by MD. rothman 03/18 00:26 Transferred pc2 Condition: stable 00:27 Transferred by ground EMS to [facility], Transfer form completed. pc2 X-rays sent w/ patient. 00:27 Instructed on the need for transfer, Demonstrated understanding of instructions, 00:28 Patient left the ED. pc2 Addendum: 03/21/2024 08:04 Addendum: Culture Results: Positive blood culture. faxed culture reports to [facility] 12 tower at [phone]. Signatures: Dispatcher [employer] EDIN Davonte Johnson MD MD cha Espinosa, Orlando oe Botello, Elizabeth eb Brown, Sophia, PA-C PA-C sb4 Ramirez Olivia RN RN rs5 Tino Pierre RN RN tl4 Christina Shaw, RN RN pc2 Roopa Cabrales3 Corrections: (The following items were deleted from the chart) 03/18 00:27 00:26 Condition: stable pc2 pc2
--- NOTE | 2024-03-17 20:52 | EDPHYS ---
Physician Documentation [facility] Name: Christelle Paredes Age: 58 yrs Sex: Female : 1965 Arrival Date: 03/17/2024 Time: 18:33 Bed 19 Private MD: ED Physician Davonte Johnson HPI: 03/17 19:30 This 58 yrs old Female presents to ER via Wheelchair with complaints of lorna Altered Mental Status. 19:30 The patient presents with confusion, decreased mental status. Onset: The lorna symptoms/episode began/occurred 2 day(s) ago. Possible causes: CVA or TIA, low blood sugar, sepsis, the patient has had a history of a fever, reportedly as high as 100.1 degrees Fahrenheit. Associated signs and symptoms: The patient has no apparent associated signs or symptoms. Current symptoms: In the emergency department the patient's symptoms are unchanged from the initial presentation. Patient's baseline: Neuro: alert and fully oriented. Historical: - Allergies: 19:05 Meclizine; tl4 19:05 meloxicam; tl4 19:05 Vancomycin; tl4 - PMHx: 19:05 Asthma; cirrhosis of liver; kidney issues with IV contrast; Hypertensive disorder; tl4 - PSHx: 19:05 Cholecystectomy; Transplantation of liver; tl4 - Immunization history:: Adult Immunizations unknown. - Infectious Disease History:: Denies. - Social history:: Smoking status: Patient denies any tobacco usage or history of. ROS: 19:32 Constitutional: Negative for fever, chills, and weight loss, Eyes: Negative for injury, lorna pain, redness, and discharge, ENT: Negative for injury, pain, and discharge, Neck: Negative for injury, pain, and swelling, Respiratory: Negative for shortness of breath, cough, wheezing, and pleuritic chest pain, Back: Negative for injury and pain, : Negative for injury, bleeding, discharge, and swelling, MS/Extremity: Negative for injury and deformity, Skin: Negative for injury, rash, and discoloration, Psych: Negative for depression, anxiety, suicide ideation, homicidal ideation, and hallucinations, Allergy/Immunology: Negative for hives, rash, and allergies, Endocrine: Negative for neck swelling, polydipsia, polyuria, polyphagia, and marked weight changes, Hematologic/Lymphatic: Negative for swollen nodes, abnormal bleeding, and unusual bruising, 19:32 Cardiovascular: Positive for palpitations, 19:32 Respiratory: Positive for cough, 19:32 Abdomen/GI: Positive for abdominal pain, nausea and vomiting, 19:32 Neuro: Positive for altered mental status, dizziness, near syncope, weakness, Exam: 19:32 Head/Face: Normocephalic, atraumatic. Eyes: Pupils equal round and reactive to light, lorna extra-ocular motions intact. Lids and lashes normal. Conjunctiva and sclera are non-icteric and not injected. Cornea within normal limits. Periorbital areas with no swelling, redness, or edema. ENT: Nares patent. No nasal discharge, no septal abnormalities noted. Tympanic membranes are normal and external auditory canals are clear. Oropharynx with no redness, swelling, or masses, exudates, or evidence of obstruction, uvula midline. Mucous membranes moist. Neck: Trachea midline, no thyromegaly or masses palpated, and no cervical lymphadenopathy. Supple, full range of motion without nuchal rigidity, or vertebral point tenderness. No Meningismus. Chest/axilla: Normal chest wall appearance and motion. Nontender with no deformity. No lesions are appreciated. Respiratory: Lungs have equal breath sounds bilaterally, clear to auscultation and percussion. No rales, rhonchi or wheezes noted. No increased work of breathing, no retractions or nasal flaring. Back: No spinal tenderness. No costovertebral tenderness. Full range of motion. Female : Normal external genitalia. Skin: Warm, dry with normal turgor. Normal color with no rashes, no lesions, and no evidence of cellulitis. MS/ Extremity: Pulses equal, no cyanosis. Neurovascular intact. Full, normal range of motion. Psych: Awake, alert, with orientation to person, place and time. Behavior, mood, and affect are within normal limits. 19:32 Constitutional: The patient appears febrile, 19:32 Respiratory: Exam negative for acute changes, 19:32 Abdomen/GI: Inspection: abdomen appears normal, Bowel sounds: normal, Palpation: mild abdominal tenderness, in the epigastric area, right upper quadrant and left upper quadrant, Liver: no appreciated palpable abnormalities, Hernia: not appreciated, 19:32 Neuro: Orientation: is normal, appropriate for stated age, no acute changes, Mentation: slow to respond, Memory: is normal, appropriate for stated age, no acute changes, Cranial nerves: grossly normal, is grossly normal based on the patient's age, no acute changes, Cerebellar function: is grossly normal, is grossly normal based on the patient's age, no acute changes, Sensation: is normal, no obvious gross deficits, appropriate no acute changes, Gait: not tested. Deep tendon reflexes are 2+ (normal) in the right patellar and left patellar, Babinski testing is normal, seizure activity, is not displayed by the patient, 22:37 ECG was reviewed by the Attending Physician. [facility] Vital Signs: 19:02 BP 138 / 87; Pulse 108; Resp 12; Temp 100.1(O); Pulse Ox 97% on R/A; Weight 94.35 kg tl4 (M); Height 5 ft. 8 in. ; 19:15 BP 126 / 80; Pulse 104; Resp 14; Pulse Ox 96% on R/A; pc2 21:00 BP 103 / 62; Pulse 90; Resp 16; Temp 99.9; Pulse Ox 100% on R/A; pc2 23:46 BP 97 / 65; Pulse 86; Resp 16; Pulse Ox 98% on R/A; pc2 03/18 00:10 BP 103 / 51; Pulse 88; Resp 16; Temp 98.9(O); Pulse Ox 96% ; pc2 03/17 19:02 Body Mass Index 31.63 (94.35 kg, 172.72 cm) tl4 Cassandra Coma Score: 03/17 19:32 Eye Response: spontaneous(4). Motor Response: obeys commands(6). Verbal Response: lorna oriented(5). Total: 15. MDM: 18:44 Patient medically screened. sb4 19:35 Differential Diagnosis: CVA, electrolyte abnormality, hypoglycemia, intracranial bleed, lorna pneumonia, seizure, sepsis, TIA, UTI, volume depletion. Differential diagnosis: bowel obstruction, Cholelithiasis, diverticulitis, gastritis, gastroesophageal reflux disease, non-specific abd pain, pancreatitis, Peptic Ulcer Disease, Peritonitis, Pyelonephritis, Ureterolithiasis, urinary tract infection. Data reviewed: vital signs, nurses notes, EMS record, lab test result(s), EKG, radiologic studies, CT scan, plain films. Consideration of Admission/Observation Escalation of care including admission/observation considered. I considered the following discharge prescriptions or medication management in the emergency department Medications were administered in the Emergency Department. See MAR. Independent interpretation of the following test(s) in the Emergency Department EKG: See my EKG interpretation above. Test considered but Not performed: Ultrasound no abd usg. Historians other than the Patient: Family Member: family well informed. Care significantly affected by the following chronic conditions: Hypertension, cirrhosis, autoimmune. Counseling: I had a detailed discussion with the patient and/or guardian regarding the historical points, exam findings, and any diagnostic results supporting the discharge/admit diagnosis, lab results, radiology results, the need to transfer to another facility. 03/17 18:56 Order name: Blood Culture Adult (2) [facility] 03/17 18:56 Order name: CBC with Diff; Complete Time: 21:53 [facility] 03/17 18:56 Order name: CMP; Complete Time: 21:19 [facility] 03/17 18:56 Order name: Lactate w/ 2H reflex if indic.; Complete Time: 21:19 [facility] 03/17 18:56 Order name: Protime (+inr); Complete Time: 21:19 [facility] 03/17 18:56 Order name: Ptt, Activated; Complete Time: 21:19 [facility] 03/17 18:56 Order name: Lipase; Complete Time: 21:19 [facility] 03/17 19:03 Order name: AMMONIA; Complete Time: 21:19 [facility] 03/17 19:17 Order name: Basic Metabolic Panel; Complete Time: 21:19 [facility] 03/17 19:17 Order name: LFT's; Complete Time: 21:19 [facility] 03/17 19:17 Order name: Magnesium; Complete Time: 21:19 [facility] 03/17 19:17 Order name: NT PRO-BNP; Complete Time: 21:19 [facility] 03/17 19:17 Order name: Troponin HS; Complete Time: 21:19 [facility] 03/17 19:17 Order name: SARS RAPID; Complete Time: 20:16 [facility] 03/17 19:17 Order name: Flu; Complete Time: 20:49 [facility] 03/17 19:17 Order name: Strep [facility] 03/17 20:13 Order name: Throat Culture [facility] 03/17 21:04 Order name: CBC Smear Scan; Complete Time: 21:53 [facility] 03/17 19:17 Order name: XRAY Chest (1 view); Complete Time: 20:49 [facility] 03/17 19:17 Order name: CT Chest Abdomen Pelvis W/O Contrast; Complete Time: 20:49 [facility] 03/17 19:30 Order name: CT Head Brain wo Cont; Complete Time: 20:49 [facility] 03/17 18:56 Order name: EKG; Complete Time: 18:57 sb4 03/17 18:56 Order name: Accucheck; Complete Time: 20:45 [facility] 03/17 18:56 Order name: Cardiac monitoring; Complete Time: 19:53 [facility] 03/17 18:56 Order name: EKG - Nurse/Tech; Complete Time: 20:45 [facility] 03/17 18:56 Order name: IV Saline Lock - Large Bore; Complete Time: 19:52 sb 03/17 18:56 Order name: Labs collected and sent; Complete Time: 20:45 [facility] 03/17 18:56 Order name: O2 Per Protocol; Complete Time: 19:53 [facility] 03/17 18:56 Order name: O2 Sat Monitoring; Complete Time: 19:53 [facility] 03/17 18:56 Order name: Vital Signs; Complete Time: 19:53 [facility] 03/17 19:17 Order name: IV Saline Lock; Complete Time: 19:52 [facility] EC:37 Rate is 109 beats/min. Rhythm is regular. QRS White is Normal. LA interval is normal. lorna QRS interval is normal. QT interval is normal. No Q waves. T waves are Normal. No ST changes noted. Clinical impression: Sinus tachycardia and No evidence of ischemia. Interpreted by me. Reviewed by me. Administered Medications: 20:20 Drug: NS 0.9% IV 1000 ml IV at 1 bolus Per protocol; 1000 mL bolus Route: IV; Rate: 1 pc2 bolus; Site: right forearm; 21:30 Follow up: Response: No adverse reaction; IV Status: Completed infusion; IV Intake: pc2 1000ml 20:20 Drug: Acetaminophen PO 650 mg PO once Route: PO; pc2 21:00 Follow up: Response: No adverse reaction pc2 20:21 Drug: NS 0.9% IV 1000 ml IV at 1 bolus Per protocol; 1000 mL bolus Route: IV; Rate: 1 pc2 bolus; Site: right forearm; 21:30 Follow up: Response: No adverse reaction; IV Status: Completed infusion; IV Intake: pc2 1000ml 20:25 Drug: Meropenem IV 1 grams IV at per protocol once; (mix in NS 100 mL) Route: IV; Rate: pc2 per protocol; Site: right forearm; 21:00 Follow up: Response: No adverse reaction; IV Status: Completed infusion; IV Intake: pc2 100ml 20:28 Drug: Ondansetron IVP 4 mg IVP once; over 2 minutes Route: IVP; Site: right forearm; pc2 21:00 Follow up: Response: No adverse reaction pc2 20:29 Drug: morphine IVP or IV 4 mg IVP once over 4 mins Route: IVP; Infused Over: 4 mins; pc2 Site: right forearm; 21:00 Follow up: Response: No adverse reaction; RASS: Alert and Calm (0) pc2 20:30 Drug: Famotidine IVP 20 mg IVP once; dilute with 10 mL 0.9% NaCl; give over 2 minutes pc2 Route: IVP; Site: right forearm; 21:00 Follow up: Response: No adverse reaction pc2 22:00 Drug: NS 0.9% IV 1000 ml IV at 125 ml/hr continuous Route: IV; Rate: 125 ml/hr; Site: pc2 right forearm; 22:27 Follow up: Response: No adverse reaction pc2 03/18 00:21 Follow up: Response: No adverse reaction; IV Status: Completed infusion; Infusion pc2 continued upon transfer; IV Intake: 375ml 00:10 Drug: NS 0.9% IV 1000 ml IV at 1 bolus Per protocol; 1000 mL bolus Route: IV; Rate: 1 pc2 bolus; Site: right forearm; 00:21 Follow up: Response: No adverse reaction pc2 00:28 Follow up: IV Status: Infusion continued upon transfer pc2 Disposition Summary: 03/17/24 20:51 Transfer Ordered Notes: Transfer Location: [facility] lorna Reason: Higher level of care lorna Condition: Fair lorna Problem: an acute exacerbation lorna Symptoms: have improved lorna Accepting Physician: willem anne(03/18/24 00:28) pc2 Diagnosis - Altered mental status, unspecified lorna - Fever, unspecified lorna - Liver transplant status lorna - Epigastric abdominal tenderness - mesentary stranding(03/17/24 21:22) lorna - Elevated white blood cell count lorna Forms: - Medication Reconciliation Form lorna - SBAR form lorna Signatures: Dispatcher [employer] EDDavonte Hatfield MD MD cha Brown, Sophia, PA-C PA-C sb4 Tino Pierre, RN RN tl4 Christina Shaw, RN RN pc2 Corrections: (The following items were deleted from the chart) 03/17 19:18 19:17 BASIC METABOLIC PANEL+C.LAB.BRZ ordered. EDMS EDMS 19:18 19:17 HEPATIC FUNCTION+C.LAB.BRZ ordered. EDMS EDMS 19:18 19:17 MAGNESIUM+C.LAB.BRZ ordered. EDMS EDMS 19:18 19:17 PROBNP+C.LAB.BRZ ordered. EDMS EDMS 19:18 19:17 Troponin High Sensitivity+C.LAB.BRZ ordered. EDMS EDMS 19:18 19:17 SARS-COV-2 Antigen Rapid+I.LAB.BRZ ordered. EDMS EDMS 19:18 19:17 Influenza Screen (A \T\ B)+BA.LAB.BRZ ordered. EDMS EDMS 19:18 19:17 Group A Streptococcus Rapid Sc+BA.LAB.BRZ ordered. EDMS EDMS 19:18 19:18 Chest Single View+RAD.RAD.BRZ ordered. EDMS EDMS 19:18 19:18 Chest Abdomen Pelvis Wo Con+CT.RAD.BRZ ordered. EDMS EDMS 21:22 20:51 [facility] [place] lorna 21:22 20:51 [facility]ig[facility] 03/18 00:28 03/17 21:22 [facility] lorna pc2
[2024-03-17 20:56] LABS: Absolute Lymphocytes (CBC) 0.7 K/uL (0.7-4.9); Absolute Neutrophil 10.4 K/uL (1.8-8.0); Basophils % 0.3 % (0-1.3); Eosinophils % 0.1 % (0-4.4); Hematocrit 38.4 % (36.0-45.0); Hemoglobin 12.8 g/dL (12.0-15.0); Lymphocytes % 5.5 % (15.3-44.8); MCH 30.9 pg (27.0-35.0); MCHC 33.4 g/dL (32.0-36.0); MCV 92.7 fL (80-100); MPV 7.7 fL (7.6-11.3); Monocytes % 8.5 % (3.3-12.3); Neutrophils % 85.6 % (41.7-73.7); Nucleated Red Blood Cells % 0.1 % (0-0); Platelets 158 thou/uL (152-406); RBC Red Blood Cell Count 4.14 M/uL (3.86-4.86); Red Cell Distribution Width 15.4 % (12.1-15.2)
[2024-03-17 21:00] LABS: PT Prothrombin Time 15.5 SECONDS (9.4-12.5); PTT, Activated Partial Thromb 35.7 SECONDS (24.3-36.9); Protime INR 1.42
[2024-03-17 21:10] LABS: Albumin 3.8 g/dL (3.4-5.0); Albumin/Globulin Ratio 0.9 (1.1-1.8); Anion Gap 8.7 mEq/L (5.0-15.0); Bilirubin Total 1.6 mg/dL (0.2-1.0); Globulin 4.1 g/dL (2.3-3.5); Potassium 4.7 mEq/L (3.5-5.1); Protein, Total 7.9 g/dL (6.4-8.2)
[2024-03-17 21:18] LABS: Albumin 3.7 g/dL (3.4-5.0); Albumin/Globulin Ratio 0.9 (1.1-1.8); Anion Gap 8.6 mEq/L (5.0-15.0); Bilirubin Direct 0.3 mg/dL (0-0.2); Bilirubin Indirect, Calculated 1.4 mg/dL (0.2-0.8); Bilirubin Total 1.7 mg/dL (0.2-1.0); Globulin 4.2 g/dL (2.3-3.5); Magnesium 1.9 mg/dL (1.6-2.4); Potassium 4.6 mEq/L (3.5-5.1); Protein, Total 7.9 g/dL (6.4-8.2); Troponin High Sensitivity 4.3 pg/mL (<58.9)
[2024-03-17 21:29] LABS: Blood Morphology Comment NOT SEEN (NOT SEEN); Platelet Estimate ADEQ; White Blood Cell Scan OK (OK)
[2024-03-18 01:18] VITALS: BP 103/51; O2SAT 96
[2024-03-18 01:19] VITALS: TEMP 98.9
--- NOTE | 2024-03-18 10:30 | EKG ---
Test Date: 2024-03-17 Test Time: 20:24:24 Load Out Worker: HARJINDER MEASUREMENT RESULTS: Intervals: Rate: 109 MS: 156 QRSD: 70 QT: 306 QTc: 412 [place]: P: 73 MS: 156 QRS: 59 T: 25 INTERPRETIVE STATEMENTS: Sinus tachycardia Otherwise normal ECG Compared to ECG 07/29/2023 13:09:30 Sinus rhythm no longer present T-wave abnormality no longer present Electronically Signed On 03-18-24 10:30:11 CDT by Emerson Taylor
== END 2024-03-18 00:28 | disposition short-term general hospital (02) ==
LOC: ER 18:33
DX: R41.82 Altered mental status, unspecified (principal); R50.9 Fever, unspecified; Z94.4 Liver transplant status; K66.8 Other specified disorders of peritoneum; D72.829 Elevated white blood cell count, unspecified; Z11.52 Encounter for screening for COVID-19
CPT/HCPCS: 96365; 96361; 93005; 87040 ×2; 87070; 85025; 80048; 36415; 82140; 83735; 87205 ×2; 85610; 80076; 87081; 83605; 85730; 87077 ×2; 87186 ×2; 84484; 83690; 80053; 83880; 87804 ×2; 70450; 71250; 74176; 71045; 96375; 99285; 87811; J2185; J2405; J7030

== ENCOUNTER 2024-06-23 13:05 | Emergency (ER) | payer OTHER ==
[2024-06-23] MEDS ORDERED: ACETAMINOPHEN 500 MG TAB ONE (13:22)
--- NOTE | 2024-06-23 13:37 | RAD REPORT ---
EXAMINATION: CT ABDOMEN AND PELVIS WITHOUT CONTRAST CLINICAL INDICATION: ABD PAIN TECHNIQUE: CT abdomen and pelvis was performed, without IV contrast, as per department protocol. Axia l, sagittal and coronal reconstructions were obtained. One or more of the following dose reduction techniques were used: Automated exposure control, adjustment of the mA and kV according to the patien t size, and iterative reconstruction. Unless otherwise specified, incidental findings do not require dedicated imaging follow-up. COMPARISON: 04/05/2023 FINDINGS: The lack of intravenous contrast limits the sensitivity of this exam for evaluation of solid visceral organs, vascular structures, and retroperitoneum. LOWER CHEST: 8 mm nodule seen in the left lower lobe posteriorly, nonspecific. LIVER:Normal in size and contour. No focal lesion. Cholecystectomy clips SPLEEN: Normal size. No focal lesion. Trace fluid along the posterior edge of the spleen. PANCREAS: No mass, ductal dilation, or daljit-pancreatic fluid. ADRENALS: Normal; no mass. KIDNEYS AND URETERS: Normal size and contour. No hydronephrosis. URINARY BLADDER: Normal contour. GASTROINTESTINAL TRACT: No evidence of bowel obstruction, significant free fluid, free air or abscess . APPENDIX: Normal appendix. LYMPH NODES: No lymphadenopathy. MUSCULOSKELETAL: Mild multilevel spinal degenerative changes. ADDITIONAL FINDINGS: None. IMPRESSION: No acute or concerning abnormalities in the abdomen or pelvis, with evaluation limited by lack of IV contrast.
[2024-06-23 14:00] LABS: Absolute Eosinophils 0.1 K/uL (0-0.5); Absolute Lymphocytes (CBC) 0.7 K/uL (0.7-4.9); Absolute Monocytes 0.5 K/uL (0.1-1.3); Absolute Neutrophil 3.3 K/uL (1.8-8.0); Basophils % 0.6 % (0-1.3); Eosinophils % 1.2 % (0-4.4); Hematocrit 36.5 % (36.0-45.0); Hemoglobin 12.2 g/dL (12.0-15.0); MCHC 33.5 g/dL (32.0-36.0); MCV 89.4 fL (80-100); MPV 7.6 fL (7.6-11.3); Monocytes % 11.1 % (3.3-12.3); Neutrophils % 71.1 % (41.7-73.7); Platelets 141 thou/uL (152-406); RBC Red Blood Cell Count 4.08 M/uL (3.86-4.86); Red Cell Distribution Width 13.9 % (12.1-15.2)
[2024-06-23 14:16] LABS: Albumin 3.8 g/dL (3.4-5.0); Albumin/Globulin Ratio 1.2 (1.1-1.8); Anion Gap 7.5 mEq/L (5.0-15.0); Bilirubin Total 1.6 mg/dL (0.2-1.0); Globulin 3.3 g/dL (2.3-3.5); Potassium 4.5 mEq/L (3.5-5.1); Protein, Total 7.1 g/dL (6.4-8.2)
[2024-06-23 14:18] LABS: Specific Gravity 1.017 (1.005-1.030); Sqamous Epithelial <5 /HPF (None Seen); Urine Bacteria None Seen /HPF (<20); Urine Bilirubin NEGATIVE (Negative); Urine Blood 2+ (Negative); Urine Clarity Clear (Clear); Urine Color Light-Yellow (Yellow); Urine Crystals Unidentified Few /HPF (None Seen); Urine Culture Reflex Order NOT NEEDED; Urine Glucose NEGATIVE (Negative); Urine Ketones NEGATIVE (Negative); Urine Microscopic Reflex YN ORDER UMIC; Urine Mucus Slight /HPF (None Seen); Urine Nitrite NEGATIVE (Negative); Urine Protein NEGATIVE (Negative); Urine Urobilinogen Normal (Normal); Urine WBC <5 /HPF (<5); Urine pH 5.5 (5.0-7.0)
--- NOTE | 2024-06-23 14:48 | ER ---
Nurse's Notes [facility] Name: Christelle Paredes Age: 59 yrs Sex: Female : 1965 Arrival Date: 06/23/2024 Time: 13:05 Bed 14 Private MD: Diagnosis: Abdominal pain, Generalized Presentation: 06/23 13:10 Chief complaint: Patient states: Left back pain radiating around to LLQ, pt reports aa5 being seen here 3 weeks ago and DX with Mesenteric Adenitis. 13:10 Coronavirus screen: At this time, the client does not indicate any symptoms associated aa5 with coronavirus-19. Ebola Screen: Patient denies travel to an Ebola-affected area in the 21 days before illness onset. Initial Sepsis Screen: Does the patient meet any 2 criteria? No. Patient's initial sepsis screen is negative. Does the patient have a suspected source of infection? No. Patient's initial sepsis screen is negative. Risk Assessment: Do you want to hurt yourself or someone else? Patient reports no desire to harm self or others. Onset of symptoms was June 2024. 13:10 Acuity: [place] 3 aa5 13:10 Method Of Arrival: Ambulatory aa5 Historical: - Allergies: 13:20 meloxicam; aa5 13:20 Toradol; aa5 13:20 Vancomycin; aa5 13:20 "Muscle relaxers"; aa5 - PMHx: 13:20 Asthma; cirrhosis of liver; Hypertensive disorder; kidney issues with IV contrast; aa5 - PSHx: 13:20 Cholecystectomy; Transplantation of liver; aa5 - Immunization history:: Adult Immunizations up to date. - Infectious Disease History:: Denies. - Social history:: Smoking status: Patient denies any tobacco usage or history of. Screenin:11 [facility] ED Fall Risk Assessment (Adult) History of falling in the last 3 months, kc6 including since admission No falls in past 3 months (0 pts) Confusion or Disorientation No (0 pts) Intoxicated or Sedated No (0 pts) Impaired Gait No (0 pts) Mobility Assist Device Used No (0 pt) Altered Elimination No (0 pt) Score/Fall Risk Level 0 - 2 = Low Risk Oriented to surroundings. Abuse screen: Denies threats or abuse. Denies injuries from another. Nutritional screening: No deficits noted. Tuberculosis screening: No symptoms or risk factors identified. Assessment: 14:11 General: Appears in no apparent distress. comfortable, well groomed, well developed, kc6 Behavior is calm, cooperative, appropriate for age, Reports feeling ill for > 3 days, Denies fever, chills. Pain: Complains of pain in back and left lower quadrant. Neuro: Level of Consciousness is awake, alert, obeys commands, Oriented to person, place, time, situation, Appropriate for age Reports headache. Cardiovascular: Capillary refill < 3 seconds. Respiratory: Airway is patent Trachea midline Respiratory effort is even, unlabored, Respiratory pattern is regular, symmetrical. GI: Abdomen is round non-distended, Bowel sounds present X 4 quads. Reports lower abdominal pain, Patient currently denies diarrhea, nausea, vomiting. : Urine is clear. EENT: No signs and/or symptoms were reported regarding the EENT system. Derm: No signs and/or symptoms reported regarding the dermatologic system. Skin is intact, is healthy with good turgor, Skin is pink, warm \\T\\ dry. Musculoskeletal: No signs and/or symptoms reported regarding the musculoskeletal system. Circulation, motion, and sensation intact. Capillary refill < 3 seconds, Range of motion: intact in all extremities. Vital Signs: 13:10 BP 150 / 102; Pulse 74; Resp 18 S; Temp 98(TE); Pulse Ox 100% on R/A; aa5 14:11 BP 175 / 92; Pulse 63; Resp 16 S; Pulse Ox 99% on R/A; kc6 14:56 BP 138 / 90; kc6 ED Course: 13:09 Patient arrived in ED. ra3 13:10 Maria Luz Kumar FNP-C [facility]. kb 13:10 Guille Francois MD is Attending Physician. kb 13:10 Arm band placed on Patient placed in an exam room, on a stretcher. aa5 13:15 Katie Greene, STEFANO is Primary Nurse. kc6 13:22 Triage completed. aa5 13:32 CT Abd/Pelvis - Without Contrast In Process Unspecified. EDMS 14:10 Urinalysis w/ reflexes Sent. kc6 14:11 Patient has correct armband on for positive identification. Bed in low position. Call kc6 light in reach. Side rails up X 1. Pulse ox on. NIBP on. Door closed. Noise minimized. Lights dimmed. Warm blanket given. Pillow given. 14:11 Patient maintains SpO2 saturation greater than 95% on room air. kc6 14:12 Inserted saline lock: 20 gauge in right forearm, using aseptic technique. Blood kc6 collected. Flushed with 10 mL NS. 14:57 No provider procedures requiring assistance completed. IV discontinued, intact, kc6 bleeding controlled, No redness/swelling at site. Pressure dressing applied. Administered Medications: 13:46 Drug: Acetaminophen PO 1000 mg PO once Route: PO; kc6 14:10 Follow up: Response: No adverse reaction kc6 Medication: 14:57 VIS not applicable for this client. kc6 Outcome: 14:47 Discharge ordered by . [facility] 14:57 Discharged to home ambulatory, kc6 14:57 Condition: good 14:57 Discharge instructions given to patient, Instructed on discharge instructions, follow up and referral plans. Demonstrated understanding of instructions, follow-up care, 14:57 Patient left the ED. kc6 Signatures: Dispatcher [employer] EDaMria Luz Reis, INVENTORY SPECIALIST MANAGER-C INVENTORY SPECIALIST MANAGER-Anne Singer, RN RN aa5 Katie Greene RN RN kc6 Ebony Rowell ra3
--- NOTE | 2024-06-23 14:48 | EDPHYS ---
Physician Documentation [facility] Name: Christelle Paredes Age: 59 yrs Sex: Female : 1965 Arrival Date: 06/23/2024 Time: 13:05 Bed 14 Private MD: ED Physician Guille Francois HPI: 06/23 14:48 This 59 yrs old Female presents to ER via Ambulatory with complaints of Back Pain. kb 14:48 Pt is a 59 year old female who presents for abd pain that started 3-4 weeks ago. States kb she was seen here at onset of symptoms and diagnosed with mesenteric adenitis. Since then has seen her PCP in [place] and was told that if it lasted for more than a month and they would schedule an MRI. Came in today because pain is continued and she just wanted to make sure that there was nothing else wrong.. Historical: - Allergies: 13:20 meloxicam; aa5 13:20 Toradol; aa5 13:20 Vancomycin; aa5 13:20 "Muscle relaxers"; aa5 - PMHx: 13:20 Asthma; cirrhosis of liver; Hypertensive disorder; kidney issues with IV contrast; aa5 - PSHx: 13:20 Cholecystectomy; Transplantation of liver; aa5 - Immunization history:: Adult Immunizations up to date. - Infectious Disease History:: Denies. - Social history:: Smoking status: Patient denies any tobacco usage or history of. ROS: 14:50 Constitutional: As per HPI kb Exam: 14:50 Constitutional: This is a well developed, well nourished patient who is awake, alert, kb and in no acute distress. Head/Face: Normocephalic, atraumatic. ENT: Moist Mucous membranes Cardiovascular: Regular rate Respiratory: Respirations even and unlabored. No increased work of breathing. Talking in full sentences Abdomen/GI: Soft, non-tender. No distention Skin: Warm, dry with normal turgor. Normal color. MS/ Extremity: Pulses equal, no cyanosis. Neurovascular intact. Full, normal range of motion. Neuro: Awake and alert, GCS 15, oriented to person, place, time, and situation. Moves all extremities. Normal gait. Vital Signs: 13:10 BP 150 / 102; Pulse 74; Resp 18 S; Temp 98(TE); Pulse Ox 100% on R/A; aa5 14:11 BP 175 / 92; Pulse 63; Resp 16 S; Pulse Ox 99% on R/A; kc6 14:56 BP 138 / 90; kc6 MDM: 13:10 Patient medically screened. kb 14:50 Differential diagnosis: gastritis, gastroesophageal reflux disease, Herpes Zoster, kb non-specific abd pain, mesenteric adenitis. Data reviewed: vital signs, nurses notes. I considered the following discharge prescriptions or medication management in the emergency department I discussed and recommended Over The Counter medications, Antibiotics: At this time antibiotics are not recommended. Counseling: I had a detailed discussion with the patient and/or guardian regarding the historical points, exam findings, and any diagnostic results supporting the discharge/admit diagnosis, lab results, radiology results, the need for outpatient follow up, a family practitioner, to return to the emergency department if symptoms worsen or persist or if there are any questions or concerns that arise at home. ED course: Pt states she has lortab and gabapentin at home for pain. Educated to continue those as needed and follow up with PCP. 06/23 13:19 Order name: CBC with Diff; Complete Time: 14:03 kb 06/23 13:19 Order name: CMP; Complete Time: 14:17 kb 06/23 13:19 Order name: Lipase; Complete Time: 14:17 kb 06/23 13:19 Order name: Urinalysis w/ reflexes; Complete Time: 14:27 kb 06/23 13:19 Order name: CT Abd/Pelvis - Without Contrast; Complete Time: 13:38 kb 06/23 13:19 Order name: IV Saline Lock; Complete Time: 13:46 kb 06/23 13:19 Order name: Labs collected and sent; Complete Time: 13:46 kb Administered Medications: 13:46 Drug: Acetaminophen PO 1000 mg PO once Route: PO; kc6 14:10 Follow up: Response: No adverse reaction kc6 Disposition Summary: 06/23/24 14:47 Discharge Ordered Notes: Location: Home kb Condition: Stable kb Diagnosis - Abdominal pain, Generalized kb Followup: kb - With: Emergency Department - When: As needed - Reason: Worsening of condition Followup: kb - With: Private Physician - When: 2 - 3 days - Reason: Recheck today's complaints, Continuance of care, Re-evaluation by your physician Discharge Instructions: - Discharge Summary Sheet kb - Abdominal Pain, Adult, [id number] kb Forms: - Medication Reconciliation Form kb - Antibiotic Education kb - Prescription Opioid Use kb - Patient Portal Instructions kb - Leadership Thank You Letter kb Addendum: 06/25/2024 09:20 I was immediately available for consultation during this patient's visit. I did not e c2 personally see the patient or discuss the patient with the MEHNAZ. . Signatures: Dispatcher [employer] EDMaria Luz Reis, SAM-C CURB BUILDER-Anne Singer, RN RN aa5 Katie Greene RN RN kc6 Guille Francois MD MD ec2 Corrections: (The following items were deleted from the chart) 06/23 13:20 13:20 Abdomen Pelvis Wo Con+CT.RAD.BRZ ordered. EDAK BROCKAK
[2024-06-23 17:13] VITALS: TEMP 98; O2SAT 100
[2024-06-23 17:15] VITALS: BP 138/90
== END 2024-06-23 14:57 | disposition home or self-care (01) ==
LOC: ER 13:05
DX: R10.84 Generalized abdominal pain (principal); Z94.4 Liver transplant status
CPT/HCPCS: 36415; 74176; 80053; 81001; 83690; 85025; 99284

== ENCOUNTER 2024-10-24 16:14 | Emergency (ER) | payer OTHER ==
[2024-10-24] MEDS ORDERED: predniSONE 20 MG TAB ONE (16:48)
[2024-10-24] MEDS ORDERED: MAGNESIUM SULFATE 1 gm IVPB 1 GM/100 ML BAG IV ONE (16:48)
[2024-10-24] MEDS ORDERED: NA CHLORIDE 0.9% 1,000 ML ONE (16:49)
--- NOTE | 2024-10-24 17:11 | RAD REPORT ---
EXAMINATION: ONE VIEW CHEST XR CLINICAL INDICATION: COUGH TECHNIQUE: Frontal chest projection is submitted. Examination is limited by patient positioning and t echnique. COMPARISON: 03/17/2024 FINDINGS: The lungs are well inflated and clear. The heart is upper limit of normal in size. No displaced fract ures identified. IMPRESSION: No acute intrathoracic abnormalities.
[2024-10-24 17:40] LABS: Absolute Lymphocytes (CBC) 0.3 K/uL (0.7-4.9); Absolute Monocytes 0.4 K/uL (0.1-1.3); Absolute Neutrophil 1.5 K/uL (1.8-8.0); Basophils % 0.3 % (0-1.3); Eosinophils % 0.3 % (0-4.4); Hematocrit 30.1 % (36.0-45.0); Hemoglobin 10.3 g/dL (12.0-15.0); Lymphocytes % 15.2 % (15.3-44.8); MCH 27.1 pg (27.0-35.0); MCHC 34.1 g/dL (32.0-36.0); MCV 79.4 fL (80-100); Monocytes % 17.8 % (3.3-12.3); Neutrophils % 66.4 % (41.7-73.7); Nucleated Red Blood Cells % 0.2 % (0-0); Platelets 106 thou/uL (152-406); RBC Red Blood Cell Count 3.79 M/uL (3.86-4.86); Red Cell Distribution Width 14.5 % (12.1-15.2)
[2024-10-24 17:51] LABS: Albumin 3.3 g/dL (3.4-5.0); Albumin/Globulin Ratio 0.9 (1.1-1.8); Anion Gap 8.7 mEq/L (5.0-15.0); Bilirubin Total 0.7 mg/dL (0.2-1.0); Globulin 3.8 g/dL (2.3-3.5); Potassium 3.7 mEq/L (3.5-5.1); Protein, Total 7.1 g/dL (6.4-8.2)
--- NOTE | 2024-10-24 18:04 | EDPHYS ---
Physician Documentation [facility] Name: Christelle Paredes Age: 59 yrs Sex: Female : 1965 Arrival Date: 10/24/2024 Time: 16:14 Bed 8 Private MD: ED Physician Kaiser Combs HPI: 10/24 16:53 This 59 yrs old Female presents to ER via Ambulatory with complaints of Flu Symptoms. rt 16:53 Patient presents to the ED with 2 days of cough, body aches, headaches, nausea. She has rt been upstairs with her son with cerebral palsy for the past 4 days. He has been admitted for similar symptoms. The patient is a liver transplant, reports compliance with her medications. Denies other acute complaints at this time, symptoms are moderate in severity, no other aggravating or alleviating factors.. Historical: - Allergies: 16:19 meloxicam; ll1 16:19 Toradol; ll1 16:19 Vancomycin; ll1 16:19 muscle relaxers; ll1 - PMHx: 16:19 Asthma; Hypertensive disorder; cirrhosis of liver; kidney issues with IV contrast; ll1 - PSHx: 16:19 Cholecystectomy; Transplantation of liver; ll1 - Immunization history:: Adult Immunizations up to date. - Infectious Disease History:: Denies. - Social history:: Smoking status: Patient denies any tobacco usage or history of. - Family history:: not pertinent. ROS: 16:53 Cardiovascular: Negative for chest pain, palpitations, and edema, MS/Extremity: rt Negative for injury and deformity, Skin: Negative for injury, rash, and discoloration, Neuro: Negative for headache, weakness, numbness, tingling, and seizure, 16:53 Constitutional: Positive for body aches, malaise, 16:53 Respiratory: Positive for cough, Negative for shortness of breath, 16:53 Abdomen/GI: Positive for nausea, Negative for vomiting, Exam: 16:53 Constitutional: This is a well developed, well nourished patient who is awake, alert, rt and in no acute distress. Head/Face: Normocephalic, atraumatic. Chest/axilla: Normal chest wall appearance and motion. Nontender with no deformity. No lesions are appreciated. Cardiovascular: Regular rate and rhythm with a normal S1 and S2. No gallops, murmurs, or rubs. Normal PMI, no JVD. No pulse deficits. Respiratory: Lungs have equal breath sounds bilaterally, clear to auscultation and percussion. No rales, rhonchi or wheezes noted. No increased work of breathing, no retractions or nasal flaring. Abdomen/GI: Soft, non-tender, with normal bowel sounds. No distension or tympany. No guarding or rebound. No evidence of tenderness throughout. Skin: Warm, dry with normal turgor. Normal color with no rashes, no lesions, and no evidence of cellulitis. MS/ Extremity: Pulses equal, no cyanosis. Neurovascular intact. Full, normal range of motion. Neuro: Awake and alert, GCS 15, oriented to person, place, time, and situation. Cranial nerves II-XII grossly intact. Motor strength 5/5 in all extremities. Sensory grossly intact. Cerebellar exam normal. Normal gait. Vital Signs: 16:23 BP 123 / 74; Pulse 80; Resp 17; Pulse Ox 100% on R/A; Weight 91.63 kg; Height 5 ft. 8 ll1 in. ; Pain 4/10; 18:15 BP 118 / 72; Pulse 75; Resp 18; Pulse Ox 98% on R/A; ph 16:23 Body Mass Index 30.71 (91.63 kg, 172.72 cm) ll1 16:23 Pain Scale: Adult ll1 MDM: 16:30 Medical Screening Exam initiated rt 18:04 Differential Diagnosis Influenza, pneumonia, viral syndrome. Data reviewed: vital rt signs, nurses notes, lab test result(s), radiologic studies. I considered the following discharge prescriptions or medication management in the emergency department Medications were administered in the Emergency Department. See MAR. Independent interpretation of the following test(s) in the Emergency Department X-Ray: My interpretation is No infiltrate seen on my interpretation of x-ray images. Test considered but Not performed: CT: Benign abdominal examination, labs are at baseline, CT scan is not indicated. Care significantly affected by the following chronic conditions: Liver transplant. Counseling: I had a detailed discussion with the patient and/or guardian regarding the historical points, exam findings, and any diagnostic results supporting the discharge/admit diagnosis, lab results, radiology results, the need for outpatient follow up, to return to the emergency department if symptoms worsen or persist or if there are any questions or concerns that arise at home. Response to treatment: the patient's symptoms have mildly improved after treatment. 10/24 16:40 Order name: CBC with Diff; Complete Time: 17:49 rt 10/24 16:40 Order name: CMP; Complete Time: 17:54 rt 10/24 16:41 Order name: Influenza Screen (a \T\ B); Complete Time: 17:49 rt 02 16:40 Order name: Chest Single View XRAY; Complete Time: 17:15 rt Administered Medications: 17:19 Drug: predniSONE PO 20 mg PO once Route: PO; ph 18:14 Follow up: Response: No adverse reaction ph 17:52 Drug: Magnesium Sulfate IVPB 1 grams IVPB once over 1 hrs Route: IVPB; Infused Over: 1 ph hrs; Site: left hand; 19:01 Follow up: Response: No adverse reaction; IV Status: Completed infusion ph 17:52 Drug: NS 0.9% IV 1000 ml IV at 1000 ml once; to be given as a bolus over 60 minutes ph Route: IV; Rate: 1000 ml; Site: left hand; 19:00 Follow up: Response: No adverse reaction; IV Status: Completed infusion; IV Intake: ph 1000ml 18:14 Drug: Oseltamivir PO 75 mg PO once Route: PO; ph 18:15 Follow up: Response: No adverse reaction ph Disposition Summary: 10/24/24 18:03 Discharge Ordered Notes: Location: Home rt Problem: new rt Symptoms: have improved rt Condition: Stable rt Diagnosis - Influenza due to identified novel influenza A virus rt Followup: rt - With: Private Physician - When: 2 - 3 days - Reason: Discharge Instructions: - Discharge Summary Sheet rt - Influenza, Adult rt Forms: - Medication Reconciliation Form rt - Antibiotic Education rt - Prescription Opioid Use rt - Patient Portal Instructions rt - Leadership Thank You Letter rt Prescriptions: - Tamiflu 75 mg Oral capsule - take 1 tablet ORAL route every 12 hours for 5 days; 10 tablet; Refills: 0, rt Product Selection Permitted Signatures: Dispatcher [employer] Jenifer Ingram RN RN ph Ina Robledo RN RN ll1 Kaiser Combs MD MD rt Corrections: (The following items were deleted from the chart) 16:41 16:41 CBC+H.LAB.BRZ ordered. EDMA EDMS 16:41 16:41 COMPREHENSIVE METABOLIC PANEL+C.LAB.BRZ ordered. EDMS EDMS 16:41 16:41 Chest Single View+RAD.RAD.BRZ ordered. EDMS EDMS
--- NOTE | 2024-10-24 18:04 | ER ---
Nurse's Notes [facility] Name: Christelle Paredes Age: 59 yrs Sex: Female : 1965 Arrival Date: 10/24/2024 Time: 16:14 Bed 8 Private MD: Diagnosis: Influenza due to identified novel influenza A virus Presentation: 10/24 16:23 Chief complaint: Patient states: Cough for 4 days. Has been upstairs with sick son for ll1 past 4 days (he has similar symptoms). GARCIA, no appetite, nausea, diarrhea, body aches for 2 days. Coronavirus screen: Client denies travel out of the [place] in the last 14 days. cough unrelated to allergies, fatigue, fever, headache, Client presents with at least one sign or symptom that may indicate coronavirus-19. Standard/surgical mask placed on the client. Ebola Screen: Patient denies travel to an Ebola-affected area in the 21 days before illness onset. Initial Sepsis Screen: Does the patient meet any 2 criteria? No. Patient's initial sepsis screen is negative. Does the patient have a suspected source of infection? No. Patient's initial sepsis screen is negative. Risk Assessment: Do you want to hurt yourself or someone else? Patient reports no desire to harm self or others. Onset of symptoms was October 21, 2024. 16:23 Method Of Arrival: Ambulatory 1 16:23 Acuity: FRANKLIN 3 ll1 Triage Assessment: 16:19 General: Appears uncomfortable, ill, Behavior is calm, cooperative, appropriate for ll1 age, Reports fever for feeling ill for fatigue for. Neuro: Reports headache weakness. Respiratory: Reports cough that is. GI: Reports diarrhea, nausea. Historical: - Allergies: 16:19 meloxicam; ll1 16:19 Toradol; ll1 16:19 Vancomycin; ll1 16:19 muscle relaxers; ll1 - PMHx: 16:19 Asthma; Hypertensive disorder; cirrhosis of liver; kidney issues with IV contrast; ll1 - PSHx: 16:19 Cholecystectomy; Transplantation of liver; ll1 - Immunization history:: Adult Immunizations up to date. - Infectious Disease History:: Denies. - Social history:: Smoking status: Patient denies any tobacco usage or history of. - Family history:: not pertinent. Screenin:20 [facility] ED Fall Risk Assessment (Adult) History of falling in the last 3 months, ph including since admission No falls in past 3 months (0 pts) Confusion or Disorientation No (0 pts) Intoxicated or Sedated No (0 pts) Impaired Gait No (0 pts) Mobility Assist Device Used No (0 pt) Altered Elimination No (0 pt) Score/Fall Risk Level 0 - 2 = Low Risk Oriented to surroundings, Maintained a safe environment, Hourly rounding (assess needs \T\ fall precautionary measures) done. Abuse screen: Denies threats or abuse. Denies injuries from another. Nutritional screening: No deficits noted. Tuberculosis screening: No symptoms or risk factors identified. Assessment: 17:19 General: Appears in no apparent distress. comfortable, well groomed, Behavior is calm, ph cooperative, appropriate for age. Pain: Complains of pain in headache and body aches. Neuro: Level of Consciousness is awake, alert, obeys commands, Oriented to person, place, time, situation, Reports headache. Cardiovascular: Capillary refill < 3 seconds in bilateral fingers Patient's skin is warm and dry. Respiratory: Reports cough that is Airway is patent Respiratory effort is even, unlabored. GI: Reports diarrhea, Patient currently denies abdominal pain. Derm: Skin is pink, warm \T\ dry. 18:15 Reassessment: D/C pending completion of IV medications. ph Vital Signs: 16:23 BP 123 / 74; Pulse 80; Resp 17; Pulse Ox 100% on R/A; Weight 91.63 kg; Height 5 ft. 8 ll1 in. ; Pain 4/10; 18:15 BP 118 / 72; Pulse 75; Resp 18; Pulse Ox 98% on R/A; ph 16:23 Body Mass Index 30.71 (91.63 kg, 172.72 cm) ll1 16:23 Pain Scale: Adult ll1 ED Course: 16:17 Patient arrived in ED. im 16:19 Arm band placed on. ll1 16:21 Kaiser Combs MD is Attending Physician. rt 16:25 Triage completed. ll1 16:43 Jenifer Zamudio, STEFANO is Primary Nurse. ph 17:01 Chest Single View XRAY In Process Unspecified. EDMS 17:19 Influenza Screen (a \T\ B) Sent. ph 17:19 Flu and/or RSV swab sent to lab. Missed attempt(s): 22 gauge in right antecubital area. ph Bleeding controlled, band aid applied, catheter tip intact. Missed attempt(s): 24 gauge in left forearm. Bleeding controlled, band aid applied, catheter tip intact. 17:21 Patient has correct armband on for positive identification. Bed in low position. Call ph light in reach. Side rails up X 1. Pulse ox on. NIBP on. Door closed. Noise minimized. 17:27 CBC with Diff Sent. ll1 17:27 CMP Sent. ll1 17:28 Inserted saline lock: 22 gauge in left hand, using aseptic technique. Blood collected. ll1 Flushed with 10 mL NS. 19:01 No provider procedures requiring assistance completed. IV discontinued, intact, ph bleeding controlled, No redness/swelling at site. Pressure dressing applied. Administered Medications: 17:19 Drug: predniSONE PO 20 mg PO once Route: PO; ph 18:14 Follow up: Response: No adverse reaction ph 17:52 Drug: Magnesium Sulfate IVPB 1 grams IVPB once over 1 hrs Route: IVPB; Infused Over: 1 ph hrs; Site: left hand; 19:01 Follow up: Response: No adverse reaction; IV Status: Completed infusion ph 17:52 Drug: NS 0.9% IV 1000 ml IV at 1000 ml once; to be given as a bolus over 60 minutes ph Route: IV; Rate: 1000 ml; Site: left hand; 19:00 Follow up: Response: No adverse reaction; IV Status: Completed infusion; IV Intake: ph 1000ml 18:14 Drug: Oseltamivir PO 75 mg PO once Route: PO; ph 18:15 Follow up: Response: No adverse reaction ph Medication: 17:21 VIS not applicable for this client. ph Intake: 19:00 IV: 1000ml; Total: 1000ml. ph Outcome: 18:03 Discharge ordered by . rt 19:01 Discharged to home ambulatory, ph 19:01 Condition: good 19:01 Discharge instructions given to patient, Instructed on discharge instructions, follow up and referral plans. medication usage, Demonstrated understanding of instructions, follow-up care, medications, Prescriptions given X 1, 19:01 Patient left the ED. ph Signatures: Dispatcher [employer] Jenifer Ingram RN RN ph Ina Robledo RN RN [facility] Kaiser Combs MD MD rt Madeleine Stevnes Corrections: (The following items were deleted from the chart) 16:35 16:23 Chief complaint: Patient states: Cough for 4 days. Has been upstairs with sick ll1 son past 4 days. GARCIA, no appetite, nausea, diarrhea, body aches for 2 days. ll1
[2024-10-24] MEDS ORDERED: ACETAMINOPHEN 500 MG TAB ONE (18:12)
[2024-10-24] MEDS ORDERED: OSELTAMIVIR 75 MG CAP PO ONE (18:12)
[2024-10-24 19:16] VITALS: BP 118/72; O2SAT 98
== END 2024-10-24 19:01 | disposition home or self-care (01) ==
LOC: ER 16:14
DX: J10.1 Influenza due to other identified influenza virus with other respiratory manifestations (principal); I10 Essential (primary) hypertension; Z94.4 Liver transplant status
CPT/HCPCS: 85025; 36415; 80053; 87804 ×2; 71045; J7512; J3475; J7030